=== PATIENT | male | born 1965 | race Two or more races ===

== ENCOUNTER 2019-04-30 04:16 | Inpatient (IN) | payer BC ==
--- NOTE | 2019-04-30 04:18 | PDOC ---
Attending Attestation - Resident Resident Name: FoxPrabhu - ED Attending Attestation I have performed the following: I have examined & evaluated the patient, The case was reviewed & discussed with the resident, I agree w/resident's findings & plan - HPI HPI: 04/30/19 21:52 see resident hpi - Physicial Exam PE: 04/30/19 21:52 agree with resident exam - Critical Care Time Total Critical Care Time: 90 Critical Care Statement: The care of this patient involved high complexity decision making to prevent further life threatening deterioration of the patient 's condition and/or to evaluate & treat vital organ system(s) failure or risk of failure. - Medical Decision Making 04/30/19 21:52 53-year-old male with history of heart failure now with acute onset of shortness of breath requiring BiPAP on arrival X-ray shows pulmonary congestion bilaterally with no focal infiltrate Labs consistent with acute renal failure Case discussed with nephrology for management of hyperkalemia Labs consistent with hypercapnic respiratory failure Case signed out to dayshift pending ICU evaluation and possible need for intubation
[2019-04-30] MEDS ORDERED: NITROGLYCERIN 2% OINTMENT - 1GM PACKET TD ONE ×2 (04:24→04:55)
[2019-04-30] MEDS ORDERED: RAPID SEQUENCE INTUBATION KIT NR ONE (04:27)
[2019-04-30] MEDS ORDERED: NITROGLYCERIN 25MG/D5W 250ML 25 MG/250 ML ML IVPB SCH (05:00)
[2019-04-30 05:14] LABS: ARTERIAL BLD GAS O2 SATURATION 96.9 % (95-98); ARTERIAL BLOOD GAS BASE EXCESS -1.1 meq/l (-2-2); ARTERIAL BLOOD GAS PO2 123 mmHg (80-100)
[2019-04-30 05:15] LABS: ALLENS TEST POSITIVE; CARBOXYHEMOGLOBIN 1.3 % (0-2)
--- NOTE | 2019-04-30 05:15 | PDOC ---
History of Present Illness - General Chief Complaint: Congestive Heart Failure Stated Complaint: DIFFICULTY BREATHING Time Seen by Provider: 04/30/19 04:18 History Source: Patient, EMS, Other Exam Limitations: Clinical Condition - History of Present Illness Initial Comments: HPI: 53 y/o male presenting to [facility] ER via ems in respiratory distress. Started on CPAP by EMS. No medications were given enroute. Pt was obtunded and unable to contribute to HPI. EMS provided discharge paperwork from [facility] dated 22 Mar 2019. For pneumonia. Medical Hx: - Atrial Flutter on Apixaban, Diltiazem, and Amiodarone - CHF (LV dysfunction, unspecified) on Lasix - Diabetes on Januvia and Metformin Review of Systems: Unable to obtain secondary to acute clinical condition Physical Examination: Vital signs and nursing notes reviewed. Constitutional- Obese adult male in acute respiratory distress. Head- Normocephalic. No obvious external signs of trauma. Eyes- PERRL. Sclerae white. Neck- Trachea is midline. Cardiovascular / Chest- Tachycardic rate with regular rhythm. No murmur, rubs, clicks, or gallops. Peripheral pulses- radial pulses full. Significant bilateral pretibial edema. Respiratory- Breathing tachypenic and shallow. Speaking in single word responses. Breath sounds bilaterally. Diffuse rhonci. Gastrointestinal- abdomen is soft, non-tender, non-distended. No overlying skin lesions or obvious signs of trauma. Neuro- Eyes open to verbal stimuli. Unable to assess orientation. Moving all four extremities spontaneously. No facial asymmetry. Skin- Warm, dry, and intact. Psych- Affect- appropriate. Mood- normal. Speech was non-labored, non- pressured. MDM: 53 y/o male presenting with acute respiratory distress. Afebrile. Vitals remarkable for tachycardia without hypotension. Borderline hypoxic on arrival. Physical exam as described above. Pt transitioned from EMS CPAP to BPAP. Mental status improved. Labs reviewed. Noted acute renal failure and hyperkalemia. Case discussed w/ Dr. Kelley. Given Albuterol, Insulin, and D50. Holding calcium and bicarb. Requested Lokelma. Will admit the pt to the ICU for acute respiratory distress, acute renal failure , and hyperkalemia. ABG concerning for acute hypercapnia. 30 Apr 2019 07:13 AM Telephone discussion with resident Dr. Meyer. Verbally appraised of the pts HPI, ED course, and current plan of management. Will admit pt to ICU for attending Dr. Llanos. Noted worsening acidosis. Paroxicially, pts mental status has improved. Pt intubated by Dr. Pride of anesthesia service. Became bradycardic and hypotensive. Noted widened QRS and QTc. Suspect secondary to hyperK. Given insulin. BGL in 300s, so held D50. Started Calcium gluconate. Prabhu Fox M.D., PGY2 Emergency Medicine Resident Past History - Past Medical History Allergies/Adverse Reactions: Allergies Allergy/AdvReac Type Severity Reaction Status Date / Time No Known Allergies Allergy Verified 04/30/19 05:32 Home Medications: Ambulatory Orders Amino Acids/Protein Hydrolys [Prosource No Carb Liquid Pkt] 30 ml PO BID@0800, 1730 packet 06/06/19 Apixaban [Eliquis -] 5 mg PEG BID tablet 06/06/19 Atorvastatin Ca [Lipitor] 40 mg PO HS tablet 06/06/19 Docusate Liquid [Colace Liquid -] 200 mg GT DAILY PRN ud 06/06/19 Ferrous Sulfate [Feosol] 300 mg NGT BID udc 06/06/19 Furosemide Oral Solution [Lasix Oral Solution -] 40 mg NGT DAILY [facility] 06/06/19 Insulin (Levemir) [Levemir Vial] 14 units SQ AM units 06/06/19 Insulin Sliding Scale [Novolog Vial Sliding Scale -] 1 vial SQ ACHS units 06/06 Nystatin Oral Suspension - [Nystatin Oral Susp 583832 Units/5 ML -] 500,000 units PO Q6HPO cup 06/06/19 Pantoprazole Sodium [Protonix -] 40 mg PO DAILY tablet.ec 06/06/19 Tamsulosin HCl [Flomax -] 0.4 mg PO DAILY@0830 cap.er.24h 06/06/19 Thiamine HCl [Vitamin B1 -] 200 mg PO DAILY tablet 06/06/19 Metoprolol Tartrate [Lopressor -] 25 mg GT BID tablet 06/07/19 Diltiazem [Cardizem -] 30 mg PO TID #90 tablet 06/08/19 ED Treatment Course - LABORATORY CBC & Chemistry Diagram: 06/05/19 07:40 06/05/19 07:40 - ADDITIONAL ORDERS Additional order review: Laboratory Results 04/30/19 04/30/19 04:55 04:50 Anticoagulation Therapy No Result Required. O2 Delivery Device No Result Required. Oxygen Flow Rate No Result Required. Vent Mode No Result Required. Vent Rate No Result Required. Mechanical Rate No Result Required. Pressure Support Vent No Result Required. POC Glucometer 297 04/30/19 04:50 POC Glucometer 297 Discharge - Discharge Information Problems reviewed: Yes Clinical Impression/Diagnosis: Acute decompensated heart failure, Acute renal failure, Hyperkalemia Condition: Improved Disposition: [facility]ISON [facility]ILITY - Admission Yes - Follow up/Referral - Patient Discharge Instructions - Post Discharge Activity
[2019-04-30 05:17] LABS: ARTERIAL BLOOD GAS pH 7.13 (7.35-7.45)
[2019-04-30 05:18] LABS: ARTERIAL BLOOD GAS PCO2 95.3 mmHg (35-45)
[2019-04-30 05:36] LABS: BASO % 0.4 % (0-2.0); MEAN PLT VOLUME 8.4 fl (7.5-11.1)
[2019-04-30 05:46] LABS: INR 0.98 (0.83-1.09); PROTHROMBIN TIME (PATIENT) 11.6 SEC (9.7-13.0)
[2019-04-30 05:49] LABS: ACTIVATED PTT 21.6 SECONDS (25.2-36.5)
[2019-04-30 05:53] LABS: URINE APPEARANCE CLEAR; URINE BILIRUBIN NEGATIVE (NEGATIVE); URINE COLOR YELLOW; URINE GLUCOSE (UA) NEGATIVE (NEGATIVE); URINE KETONE NEGATIVE (NEGATIVE); URINE LEUK ESTERASE NEGATIVE (NEGATIVE); URINE NITRITE NEGATIVE (NEGATIVE); URINE PROTEIN TRACE (NEGATIVE); URINE UROBILINOGEN 0.2 mg/dL (0.2-1.0)
[2019-04-30 06:08] LABS: ALBUMIN 3.1 g/dl (3.4-5.0); ALK PHOS 247 U/L (45-117); ANION GAP 4 MMOL/L (8-16); BILIRUBIN,TOTAL 0.4 mg/dL (0.2-1); BLOOD UREA NITROGEN 62.5 mg/dL (7-18); CALCIUM 8.2 mg/dL (8.5-10.1); CHLORIDE 96 mmol/L (98-107); CO2 33 mmol/L (21-32); CREATININE 2.4 mg/dL (0.55-1.3); GLUCOSE,RANDOM 323 mg/dL (74-106); N-TERMINAL BNP 1639.4 pg/ml (5-125); SGOT/AST 31 U/L (15-37); SGPT/ALT 55 U/L (13-61); SODIUM 132 mmol/L (136-145)
[2019-04-30 06:10] LABS: EOS % 0.5 % (0-4.5); LYMPH % 1.7 % (8-40); MCH 24.2 pg (25.7-33.7); MEAN CELL VOLUME 80.6 fl (80-96); MONO % 9.1 % (3.8-10.2); NEUT % 88.3 % (42.8-82.8); PLATELET COUNT 334 K/MM3 (134-434); RBC 4.32 M/mm3 (4.00-5.60); RDW 20.5 % (11.9-15.9); WHITE BLOOD COUNT 10.5 K/mm3 (4.0-10.0)
[2019-04-30] MEDS ORDERED: ALBUTEROL SO4 0.083% IH SOL 2.5 MG/3 ML VIAL.NEB. NEB ONE ×3 (06:14→08:48)
[2019-04-30 06:17] LABS: HEMATOCRIT 34.8 % (35.4-49); HEMOGLOBIN 10.4 GM/dL (11.7-16.9)
[2019-04-30] MEDS ORDERED: INSULIN REGULAR HUMAN 100 UNITS/ML *VIAL IVPUSH ONE ×5 (06:18→23:11)
[2019-04-30] MEDS ORDERED: DEXTROSE 50%-WATER - 25 GM/50 ML VIAL IVPUSH ONE ×2 (06:19→14:05)
[2019-04-30 06:26] LABS: ARTERIAL BLOOD GAS PO2 165 mmHg (80-100)
[2019-04-30] MEDS ORDERED: FUROSEMIDE 40 MG/4 ML INJECTABLE VIAL IVPUSH ONE ×4 (06:26→23:20)
[2019-04-30] MEDS ORDERED: INSULIN REGULAR HUMAN 100 UNITS/ML *VIAL ONE ×2 (06:26→08:59)
[2019-04-30 06:27] LABS: ARTERIAL BLD GAS O2 SATURATION 98.1 % (95-98)
[2019-04-30] MEDS ORDERED: DEXTROSE 50%-WATER - 25 GM/50 ML VIAL ONE ×3 (06:28→16:18)
[2019-04-30] MEDS ORDERED: FUROSEMIDE 40 MG/4 ML INJECTABLE VIAL ONE ×2 (06:30→23:41)
[2019-04-30 06:31] LABS: ALLENS TEST POSITIVE
[2019-04-30 06:35] LABS: ARTERIAL BLOOD GAS PCO2 > 100 mmHg (35-45); CARBOXYHEMOGLOBIN > 50 % (0-2)
[2019-04-30 06:36] LABS: ARTERIAL BLOOD GAS pH 7.09 (7.35-7.45)
[2019-04-30 06:58] LABS: ARTERIAL BLOOD GAS PCO2 > 100 mmHg (35-45); ARTERIAL BLOOD GAS pH 7.09 (7.35-7.45)
[2019-04-30 06:59] LABS: ARTERIAL BLOOD GAS PO2 86.3 mmHg (80-100); CARBOXYHEMOGLOBIN 1.3 % (0-2)
[2019-04-30 07:00] LABS: ALLENS TEST POSITIVE
[2019-04-30] MEDS ORDERED: SODIUM ZIRCONIUM CYCLOSILICATE (LOKELMA) 5 GM PACKET PO ONE ×2 (07:03→08:10)
[2019-04-30] MEDS ORDERED: PHENYLEPHRINE HCL 10 MG/1 ML SINGLE DOSE VIAL ONE ×2 (07:26→09:30)
[2019-04-30 07:27] LABS: POTASSIUM 6.9 mmol/L (3.5-5.1)
--- NOTE | 2019-04-30 07:41 | PDOC ---
*Physical Exam - Vital Signs Last Vital Signs Temp Pulse Resp BP Pulse Ox 96.1 F L 113 H 33 H 165/107 H 86 L 04/30/19 05:38 04/30/19 05:38 04/30/19 05:38 04/30/19 05:38 04/30/19 05:38 - Physical Exam 04/30/19 07: Patient endorsed by Dr. lockhart. Patient is a 53-year-old male with multiple comorbidities, morbidly obese, presented with shortness of breathAnd obtundation. Patient received IV diuretics, placed on BiPAP with no significant improvement. pH remains 7.09 with PCO2 of greater than 100. Patient is noted to be hyperkalemic with 6.9 and elevated creatinine consistent with RYNE. Chest x-ray reveals cardiomegaly and extensive pulmonary edema. On my evaluation, patient is lethargic, arousable to sternal rub only, tachypneic with respiratory rate of 40 with pink frothy fluid noted in the oropharynx and nares bilaterally. Given the patient's clinical condition, persistent acidemia and hypercapnia, patient requires immediate endotracheal intubation. Due to body habitus and potential airway complications, anesthesia consulted and has intubated the patient using a bougie. Will admit to the ICU. Will initiate a propofol drip for sedation. 04/30/19 08:31 ET tube placement confirmed by postintubation x-ray. NG tube placed. Will administer laquelma via NG tube. rll infiltrate noted. will cover with iv ibx for cap. flouroquinolone is not indicated currently. 04/30/19 08:35 Pt noted bradycardic w/ widening IN interval and QRS interval suspect hypercalemia, will admin insulin, calcium glucanate, glucose - IV and albuterol nebs, propyphol stopped, BP low-- will continue with phenylephrine ED Treatment Course - LABORATORY CBC & Chemistry Diagram: 04/30/19 05:05 04/30/19 10:30 - ADDITIONAL ORDERS Additional order review: Laboratory Results 04/30/19 04/30/19 04/30/19 06:45 05:50 05:35 PT with INR INR PTT (Actin FS) Anticoagulation Therapy No Result Required. No Result Required. Puncture Site Right radial Right radial ABG pH 7.09 L* 7.09 L* ABG pCO2 at Pt Temp > 100 H* > 100 H* ABG pO2 at Pt Temp 86.3 165 H ABG HCO3 No Result Required. ABG O2 Sat (Measured) 92.0 L 98.1 H ABG O2 Content 12.9 16.0 ABG Base Excess No Result Required. No Result Required. Adrian Test Positive Positive Carboxyhemoglobin 1.3 > 50 H* Methemoglobin < 1.0 < 1.0 O2 Delivery Device Bipap Bipap Oxygen Flow Rate 60% 80% Vent Mode No Result Required. No Result Required. Vent Rate No Result Required. No Result Required. Mechanical Rate No Result Required. No Result Required. Pressure Support Vent No Result Required. No Result Required. Sodium Potassium Chloride Carbon Dioxide Anion Gap BUN Creatinine Est GFR (CKD-EPI)AfAm Est GFR (CKD-EPI)NonAf POC Glucometer Random Glucose Lactic Acid Calcium Total Bilirubin AST ALT Alkaline Phosphatase Creatine Kinase CK-MB (CK-2) Troponin I B-Natriuretic Peptide Total Protein Albumin Urine Color Yellow Urine Appearance Clear Urine pH 5.0 Ur Specific [place] 1.019 Urine Protein Trace Urine Glucose (UA) Negative Urine Ketones Negative Urine Blood Negative Urine Nitrite Negative Urine Bilirubin Negative Urine Urobilinogen 0.2 Ur Leukocyte Esterase Negative 04/30/19 04/30/19 04/30/19 05:05 05:05 05:05 PT with INR 11.60 INR 0.98 PTT (Actin FS) 21.6 L Anticoagulation Therapy Puncture Site ABG pH ABG pCO2 at Pt Temp ABG pO2 at Pt Temp ABG HCO3 ABG O2 Sat (Measured) ABG O2 Content ABG Base Excess Adrian Test Carboxyhemoglobin Methemoglobin O2 Delivery Device Oxygen Flow Rate Vent Mode Vent Rate Mechanical Rate Pressure Support Vent Sodium 132 L Potassium 6.9 H* Chloride 96 L Carbon Dioxide 33 H Anion Gap 4 L BUN 62.5 H Creatinine 2.4 H Est GFR (CKD-EPI)AfAm 34.89 Est GFR (CKD-EPI)NonAf 30.10 POC Glucometer Random Glucose 323 H Lactic Acid 2.2 H* Calcium 8.2 L Total Bilirubin 0.4 AST 31 ALT 55 Alkaline Phosphatase 247 H Creatine Kinase 127 CK-MB (CK-2) 4.7 H Troponin I < 0.02 B-Natriuretic Peptide 1639.4 H Total Protein 7.0 Albumin 3.1 L Urine Color Urine Appearance Urine pH Ur Specific [place] Urine Protein Urine Glucose (UA) Urine Ketones Urine Blood Urine Nitrite Urine Bilirubin Urine Urobilinogen Ur Leukocyte Esterase 04/30/19 04/30/19 04:55 04:50 PT with INR INR PTT (Actin FS) Anticoagulation Therapy No Result Required. Puncture Site Left radial ABG pH 7.13 L* ABG pCO2 at Pt Temp 95.3 H* ABG pO2 at Pt Temp 123 H ABG HCO3 30.0 H ABG O2 Sat (Measured) 96.9 ABG O2 Content 14.4 ABG Base Excess -1.1 Adrian Test Positive Carboxyhemoglobin 1.3 Methemoglobin 1.0 O2 Delivery Device Bipap Oxygen Flow Rate 60% Vent Mode No Result Required. Vent Rate 16 Mechanical Rate No Result Required. Pressure Support Vent 20/6 Sodium Potassium Chloride Carbon Dioxide Anion Gap BUN Creatinine Est GFR (CKD-EPI)AfAm Est GFR (CKD-EPI)NonAf POC Glucometer 297 Random Glucose Lactic Acid Calcium Total Bilirubin AST ALT Alkaline Phosphatase Creatine Kinase CK-MB (CK-2) Troponin I B-Natriuretic Peptide Total Protein Albumin Urine Color Urine Appearance Urine pH Ur Specific [place] Urine Protein Urine Glucose (UA) Urine Ketones Urine Blood Urine Nitrite Urine Bilirubin Urine Urobilinogen Ur Leukocyte Esterase 04/30/19 04/30/19 05:05 04:50 RBC 4.32 MCV 80.6 MCHC 30.0 L RDW 20.5 H MPV 8.4 Neutrophils % 88.3 H Lymphocytes % 1.7 L Monocytes % 9.1 Eosinophils % 0.5 Basophils % 0.4 POC Glucometer 297 - RADIOLOGY Radiology Studies Ordered: Category Date Time Status CHEST X-RAY PORTABLE* [RAD] Stat Radiology 04/30/19 07:38 Ordered - Medications Given in the ED: ED Medications Discontinued Medications Generic Name Dose Route Start Last Admin Trade Name Freq PRN Reason Stop Dose Admin Albuterol Sulfate 3 amp 04/30/19 06:14 04/30/19 06:34 Ventolin 0.083% Nebulizer Soln - NEB 04/30/19 06:15 3 amp ONCE ONE Administration Dextrose 20 gm 04/30/19 06:19 04/30/19 06:34 D50w (Vial) - IVPUSH 04/30/19 06:20 20 gm NOW ONE Administration Furosemide 40 mg 04/30/19 06:26 04/30/19 06:34 Lasix Injection - IVPUSH 04/30/19 06:27 40 mg ONCE ONE Administration Insulin Human Regular 10 units 04/30/19 06:18 04/30/19 06:34 Novolin R Vial *For Ivpush Or Iv Drip Only* IVPUSH 04/30/19 06:19 10 units ONCE ONE Administration Nitroglycerin 1 inch 04/30/19 04:55 04/30/19 05:05 Nitro-Bid 2% Paste - TD 04/30/19 04:56 1 inch ONCE ONE Administration Discharge - Discharge Information Problems reviewed: Yes Clinical Impression/Diagnosis: Acute decompensated heart failure, Hyperkalemia Acute renal failure Qualifiers: Acute renal failure type: unspecified Qualified Code(s): N17.9 - Acute kidney failure, unspecified Condition: Critical - Follow up/Referral - Patient Discharge Instructions - Post Discharge Activity
[2019-04-30] MEDS ORDERED: PROPOFOL 1,000,000 MCG/100 ML VIAL ONE (07:43)
--- NOTE | 2019-04-30 07:45 | PN ---
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 (short form) - Note 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: Called to emergently intubate a pt in CHF/flash pulmonary edema with SpO2 in 80s. Pt was pre-oxygenated, ambubagged, and given etomidate 6mg and Carla 20mg ( wanted to avoid rocuronium, as pt's airway looked concerning). DL with MAC4 -- > gr2/3 view. Bougie advanced easily and ETT 8.0 placed over bougie. CO2+, BLBS+, pt connected to ventilator and sedation was started by ED physician. SpO2 increased to 100%, VSS.
[2019-04-30] MEDS ORDERED: FENTANYL INJECTION 500 MCG in DEXTROSE 5%-WATER - 90 ML IVPB SCH ×2 (08:00→12:30)
[2019-04-30] MEDS ORDERED: SODIUM CHLORIDE 0.9% 500 ML INFUS.BAG IV ONE (08:10)
[2019-04-30] MEDS ORDERED: PHENYLEPHRINE HCL 10 MG/1 ML SINGLE DOSE VIAL IVPB ONE ×3 (08:30→08:38)
[2019-04-30] MEDS ORDERED: PROPOFOL 1,000,000 MCG/100 ML VIAL IVPB SCH (08:30)
[2019-04-30] MEDS ORDERED: AZITHROMYCIN IVPB 500 MG in DEXTROSE 5%-WATER - 250 ML IVPB ONE (08:34)
[2019-04-30] MEDS ORDERED: CEFTRIAXONE 1,000 MG in DEXTROSE 5%-WATER - 50 ML IVPB ONE (08:34)
--- NOTE | 2019-04-30 08:46 | CONSULT ---
Consultation: REQUESTING PROVIDER: Dr. Houston CONSULT REQUEST: RYNE; hyperkalemia. HISTORY OF PRESENT ILLNESS: 53 y/o male with PMH of aflutter, DM, HTN, diastolic CHF presents to the ED with complaints of shortness of breath and was subsequently intubated and sedated due to worsening hypoxic and hypercapnic respiratory failure. Notable labs: WBC 10.2, K 6.9, Cr 2.4 LA 2.2, BNP 1639 CXR ARDS pattern on 100 %fi02 ABG Ph 7.09 CO2>100- patient given 80 lasix IV ,azithro, cef, medrol, on 2 pressors, (vaso and phenylephrine) given calcium gluconate; d50 for hyperkalemia REVIEW OF SYSTEMS: UNABLE TO OBTAIN INTUBATED/SEDATED CONSTITUTIONAL: Absent: fever, chills, diaphoresis, generalized weakness, malaise, loss of appetite, weight change HEENT: Absent: rhinorrhea, nasal congestion, throat pain, throat swelling, difficulty swallowing, mouth swelling, ear pain, eye pain, visual changes CARDIOVASCULAR: Absent: chest pain, syncope, palpitations, irregular heart rate, lightheadedness , peripheral edema RESPIRATORY: Absent: cough, shortness of breath, dyspnea with exertion, orthopnea, wheezing, stridor, hemoptysis GASTROINTESTINAL: Absent: abdominal pain, abdominal distension, nausea, vomiting, diarrhea, constipation, melena, hematochezia GENITOURINARY: Absent: dysuria, frequency, urgency, hesitancy, hematuria, flank pain, genital pain MUSCULOSKELETAL: Absent: myalgia, arthralgia, joint swelling, back pain, neck pain SKIN: Absent: rash, itching, pallor HEMATOLOGIC/IMMUNOLOGIC: Absent: easy bleeding, easy bruising, lymphadenopathy, frequent infections ENDOCRINE: Absent: unexplained weight gain, unexplained weight loss, heat intolerance, cold intolerance NEUROLOGIC: Absent: headache, focal weakness or paresthesias, dizziness, unsteady gait, seizure, mental status changes, bladder or bowel incontinence PSYCHIATRIC: Absent: anxiety, depression, suicidal or homicidal ideation, hallucinations. PHYSICAL EXAMINATION Vital Signs - 24 hr 04/30/19 04/30/19 04/30/19 04:18 04:20 04:30 Temperature Pulse Rate 116 H Pulse Rate [ 116 H Left Radial] Respiratory 30 H Rate Blood Pressure Blood Pressure 160/111 H [Right Arm] O2 Sat by Pulse 95 95 95 Oximetry (%) 04/30/19 04/30/19 04/30/19 04:35 04:46 05:06 Temperature Pulse Rate Pulse Rate [ 113 H 118 H Left Radial] Respiratory 29 H 36 H Rate Blood Pressure Blood Pressure 141/87 132/91 [Right Arm] O2 Sat by Pulse 95 95 98 Oximetry (%) 04/30/19 04/30/19 04/30/19 05:27 05:38 07:30 Temperature 96.1 F L Pulse Rate 113 H Pulse Rate [ 110 H Left Radial] Respiratory 38 H 33 H 12 Rate Blood Pressure 165/107 H Blood Pressure 102/72 [Right Arm] O2 Sat by Pulse 100 86 L Oximetry (%) GENERAL: intubated; sedated. EYES: PEERLA; EOMI; no scleral icterus. NECK:no JVD; no lymphadenopathy LUNGS: vents sounds appreciated with extensive secretions. HEART: irregularly irregular; no murmurs/rubs/gallops ABDOMEN:obese; soft NT/ND +BS in all 4 quadrants . MUSCULOSKELETAL: Normal range of motion at all joints. No bony deformities or tenderness. No CVA tenderness. EXTREMITIES: cool; 2+ pitting edema B/L NEUROLOGICAL: unable to assess; intubated/sedated PSYCHIATRIC: Cooperative. Good eye contact. Appropriate mood and affect. SKIN: Warm, dry, normal turgor, no rashes or lesions noted. Laboratory Results - last 24 hr 04/30/19 04/30/19 04/30/19 04:50 04:55 05:05 WBC RBC Hgb Hct MCV MCH MCHC RDW Plt Count MPV Absolute Neuts (auto) Neutrophils % Lymphocytes % Monocytes % Eosinophils % Basophils % Nucleated RBC % PT with INR 11.60 INR 0.98 PTT (Actin FS) 21.6 L Anticoagulation Therapy No Result Required. Puncture Site Left radial ABG pH 7.13 L* ABG pCO2 at Pt Temp 95.3 H* ABG pO2 at Pt Temp 123 H ABG HCO3 30.0 H ABG O2 Sat (Measured) 96.9 ABG O2 Content 14.4 ABG Base Excess -1.1 Adrian Test Positive Carboxyhemoglobin 1.3 Methemoglobin 1.0 O2 Delivery Device Bipap Oxygen Flow Rate 60% Vent Mode No Result Required. Vent Rate 16 Mechanical Rate No Result Required. Pressure Support Vent 20/6 Sodium Potassium Chloride Carbon Dioxide Anion Gap BUN Creatinine Est GFR (CKD-EPI)AfAm Est GFR (CKD-EPI)NonAf POC Glucometer 297 Random Glucose Lactic Acid Calcium Total Bilirubin AST ALT Alkaline Phosphatase Creatine Kinase CK-MB (CK-2) Troponin I B-Natriuretic Peptide Total Protein Albumin Urine Color Urine Appearance Urine pH Ur Specific [place] Urine Protein Urine Glucose (UA) Urine Ketones Urine Blood Urine Nitrite Urine Bilirubin Urine Urobilinogen Ur Leukocyte Esterase 04/30/19 04/30/19 04/30/19 05:05 05:05 05:05 WBC 10.5 H RBC 4.32 Hgb 10.4 L Hct 34.8 L MCV 80.6 MCH 24.2 L MCHC 30.0 L RDW 20.5 H Plt Count 334 MPV 8.4 Absolute Neuts (auto) 9.2 H Neutrophils % 88.3 H Lymphocytes % 1.7 L Monocytes % 9.1 Eosinophils % 0.5 Basophils % 0.4 Nucleated RBC % 0 PT with INR INR PTT (Actin FS) Anticoagulation Therapy Puncture Site ABG pH ABG pCO2 at Pt Temp ABG pO2 at Pt Temp ABG HCO3 ABG O2 Sat (Measured) ABG O2 Content ABG Base Excess Adrian Test Carboxyhemoglobin Methemoglobin O2 Delivery Device Oxygen Flow Rate Vent Mode Vent Rate Mechanical Rate Pressure Support Vent Sodium 132 L Potassium 6.9 H* Chloride 96 L Carbon Dioxide 33 H Anion Gap 4 L BUN 62.5 H Creatinine 2.4 H Est GFR (CKD-EPI)AfAm 34.89 Est GFR (CKD-EPI)NonAf 30.10 POC Glucometer Random Glucose 323 H Lactic Acid 2.2 H* Calcium 8.2 L Total Bilirubin 0.4 AST 31 ALT 55 Alkaline Phosphatase 247 H Creatine Kinase 127 CK-MB (CK-2) 4.7 H Troponin I < 0.02 B-Natriuretic Peptide 1639.4 H Total Protein 7.0 Albumin 3.1 L Urine Color Urine Appearance Urine pH Ur Specific [place] Urine Protein Urine Glucose (UA) Urine Ketones Urine Blood Urine Nitrite Urine Bilirubin Urine Urobilinogen Ur Leukocyte Esterase 04/30/19 04/30/19 04/30/19 05:35 05:50 06:45 WBC RBC Hgb Hct MCV MCH MCHC RDW Plt Count MPV Absolute Neuts (auto) Neutrophils % Lymphocytes % Monocytes % Eosinophils % Basophils % Nucleated RBC % PT with INR INR PTT (Actin FS) Anticoagulation Therapy No Result Required. No Result Required. Puncture Site Right radial Right radial ABG pH 7.09 L* 7.09 L* ABG pCO2 at Pt Temp > 100 H* > 100 H* ABG pO2 at Pt Temp 165 H 86.3 ABG HCO3 No Result Required. No Result Required. ABG O2 Sat (Measured) 98.1 H 92.0 L ABG O2 Content 16.0 12.9 ABG Base Excess No Result Required. No Result Required. Adrian Test Positive Positive Carboxyhemoglobin > 50 H* 1.3 Methemoglobin < 1.0 < 1.0 O2 Delivery Device Bipap Bipap Oxygen Flow Rate 80% 60% Vent Mode No Result Required. No Result Required. Vent Rate No Result Required. No Result Required. Mechanical Rate No Result Required. No Result Required. Pressure Support Vent No Result Required. No Result Required. Sodium Potassium Chloride Carbon Dioxide Anion Gap BUN Creatinine Est GFR (CKD-EPI)AfAm Est GFR (CKD-EPI)NonAf POC Glucometer Random Glucose Lactic Acid Calcium Total Bilirubin AST ALT Alkaline Phosphatase Creatine Kinase CK-MB (CK-2) Troponin I B-Natriuretic Peptide Total Protein Albumin Urine Color Yellow Urine Appearance Clear Urine pH 5.0 Ur Specific [place] 1.019 Urine Protein Trace Urine Glucose (UA) Negative Urine Ketones Negative Urine Blood Negative Urine Nitrite Negative Urine Bilirubin Negative Urine Urobilinogen 0.2 Ur Leukocyte Esterase Negative Active Medications Generic Name Dose Route Start Last Admin Trade Name Freq PRN Reason Stop Dose Admin Nitroglycerin/Dextrose 25 mg in 250 mls @ 6 mls/hr 04/30/19 05:00 04/30/19 05 :05 Nitroglycerin 25mg/D5w 250ml IVPB 10 mcg/min TITR ELISSA 6 mls/hr Administration 10 MCG/MIN Propofol 1,000,000 mcg in 100 mls @ 4.082 mls/hr 04/30/19 08:30 Diprivan - IVPB TITR ELISSA Protocol 5 MCG/KG/MIN Azithromycin 500 mg/ Dextrose 250 mls @ 250 mls/hr 04/30/19 08:34 IVPB 04/30/19 09:33 ONCE ONE Ceftriaxone Sodium 1,000 mg/ 50 mls @ 100 mls/hr 04/30/19 08:34 Dextrose IVPB 04/30/19 09:03 ONCE ONE ASSESSMENT/PLAN: 53 y/o male with PMH of aflutter, DM, HTN, diastolic CHF presents to the ED with complaints of shortness of breath and was subsequently intubated and sedated due to worsening hypoxic and hypercapnic respiratory failure with electrolytes abnormalities and elevated Cr #Hypoxic and Hypercapnic respiratory failure #RYNE #Hyperkalemia #CHF exacerbation v. cardiogenic shock repeat K 6.2- will give amp d50, bicarb, 10 units insulin repeat BMP in 4 hours c/w IV Lasix 60 BID-can start gtt if need be and if pressures hold monitor I's and O's repeat ABG monitor electrolytes repeat EKG repeat CXR in AM Dispo: We will continue to follow the patient. Thank you for this consultative opportunity. Visit type - Emergency Visit Emergency Visit: Yes ED Registration Date: 04/30/19 Care time: The patient presented to the Emergency Department on the above date and was hospitalized for further evaluation of their emergent condition. - New Patient This patient is new to me today: Yes Date on this admission: 04/30/19 - Critical Care Critical Care patient: Yes Total Critical Care Time (in minutes): 35 Critical Care Statement: The care of this patient involved high complexity decision making to prevent further life threatening deterioration of the patient 's condition and/or to evaluate & treat vital organ system(s) failure or risk of failure. ATTENDING PHYSICIAN STATEMENT I saw and evaluated the patient. I reviewed the resident's note and discussed the case with the resident. I agree with the resident's findings and plan as documented. SUBJECTIVE: OBJECTIVE: ASSESSMENT AND PLAN:
--- NOTE | 2019-04-30 08:49 | PN ---
Teaching Attending Note Name of Resident: Reginald Meyer ATTENDING PHYSICIAN STATEMENT I saw and evaluated the patient. I reviewed the resident's note and discussed the case with the resident. I agree with the resident's findings and plan as documented. Seen and examined; please see resident note for further historical information. I personally verified all valadez historical information and exam findings. Personally interpreted all imaging and diagnostics and reviewed appropriate consults. I reviewed all labs and vital signs as per resident note and EMR as documented. I agree with the above assessment and plan unless supplemented by myself in the following. Patient is seen and examined in the ICU, he is unstable and becoming hypotensive. Starting peripheral vasopressin. Pending transfer to [facility] for ECMO evaluation. He is unstable, with secretions and ARDS pattern on his chest x-ray requiring 100% FiO2. Central line is being placed by ICU resident. Guarded prognosis. He was supposed to have a catheterization performed at tertiary care center, the details regarding this are shrouded and we will attempt to elucidate them with records pending from their institution being obtained by the admitting resident. 10 item review of systems could not be completed secondary to clinical status VS, labs, imaging reviewed Intubated and sedated on ventillator resting in bed, vent settings per flowsheet ET Tube in place; IV access noted with no apparent surrounding cellulitis RRR s1/2 no mgr Normal muscle tone, moves all 5 extremities with normal apparent strength Neck is supple, trachea midline, no fernanda LN Lungs CTAB with sym expansion NT ND +BS no fernanda organomegaly CN2-12 wnl; no FND but limited given clinical circumstances. NC AT EOMI PERRLA Not agitated, cannot complete full psych assessment No skin breakdown or rashes noted CVC inserted Telemetry reviewed, atrial fib/flutter Right bundle branch block appreciated on EKG of indeterminate origin, AV block noted. Obtaining prior studies from [facility]. Assessment and plan: Patient is a 53-year-old male presenting to the intensive care unit with acute on chronic hypoxic respiratory failure secondary to CHF exacerbation with potential cardiogenic shock. Following their CVP, following their respiratory status is air intubated with likely ARDS, transferring for potential ECMO and further potential cardiovascular procedural work-up. The role of hospital medicine is exceptionally limited in the management of this patient. Transfer has been initiated by intensive care team, we will continue to follow this critically ill patient. Hopeful transfer within coming hours. Full code
--- NOTE | 2019-04-30 08:55 | HP ---
CHIEF COMPLAINT: SOB PCP: Dr. Genaro Davila HISTORY OF PRESENT ILLNESS: Pt. is a 53 y.o. M w/ PMHx. of DM2, HFpEF(last EF: 45-50%), EMMY (non-adherent to CPAP) and atrial flutter presents with sudden onset of shortness of breath. Pt.was intubated and sedated by the time of my arrival. History provided by Chart review, family at bedside and discussion with Dr. Molly Davila ([phone]). Pt. awoke suddenly with shortness of breath and was brought in by EMS to the ER. Per family Pt. was scheduled to have cardiac catherization in July. Pt. was in his usual state of health before this event and per family denies any symptoms including chest pain, fever , chills, or worsening shortness of breath. Discussed with Pt.'s licensed guide Dr. Davila that Pt. was admitted in March to [facility] for CHF exacerbation, was massively volume overloaded, had Echo done which showed EF of 45-50%, Pt. was found to be in A.Flutter, failed cardioversion x2 and was discharged on increased dose of Diltiazem and on Amiodarone. Pt. during that admission had GEETA which failed to show thrombus. Pt. was volume overloaded with significant Pulmonary edema, diuresed until CXR were clear and discharged on Lasix 40mg BID. Dr. Davila emphasized the Pt.'s non-adherence to the medical regimen in taking antidiabetic medications, Lasix and in using CPAP. ER course was notable for: (1) UA/ UCx., BCx. ABG, Neprology and ICU consult, BNP, Duonebs (2)Nitro gtt, Lokelma x 2, Intubation, Insulin 10 units, D50% (3) Lasix 80mg Juliana MCCARTNEY Recent Travel: No PAST MEDICAL HISTORY: As above PAST SURGICAL HISTORY: Denies Social History: Smoking: Quit 25 years ago Alcohol: Quit, Drinks only socially Drugs: Denies Allergies No Known Allergies Allergy (Verified 04/30/19 05:32) HOME MEDICATIONS: Home Medications Medication Instructions Recorded Amiodarone HCl 200 mg PO DAILY 04/30/19 Apixaban [Eliquis] 5 mg PO BID 04/30/19 Diltiazem Cd [Cardizem Cd -] 300 mg PO DAILY 04/30/19 Furosemide 40 mg PO BID 04/30/19 Glipizide 10 mg PO DAILY 04/30/19 Lisinopril 10 mg PO DAILY 04/30/19 Metformin HCl [Glucophage] 1,000 mg PO BID 04/30/19 Sitagliptin Phosphate [Januvia] 100 mg PO DAILY 04/30/19 REVIEW OF SYSTEMS Unable to obtain as Pt. is intubated and sedated. ROS per family as above. PHYSICAL EXAMINATION Vital Signs - 24 hr 04/30/19 04/30/19 04/30/19 04:18 04:20 04:30 Temperature Pulse Rate 116 H Pulse Rate [ 116 H Left Radial] Respiratory 30 H Rate Blood Pressure Blood Pressure 160/111 H [Right Arm] O2 Sat by Pulse 95 95 95 Oximetry (%) 04/30/19 04/30/19 04/30/19 04:35 04:46 05:06 Temperature Pulse Rate Pulse Rate [ 113 H 118 H Left Radial] Respiratory 29 H 36 H Rate Blood Pressure Blood Pressure 141/87 132/91 [Right Arm] O2 Sat by Pulse 95 95 98 Oximetry (%) 04/30/19 04/30/19 04/30/19 05:27 05:38 07:30 Temperature 96.1 F L Pulse Rate 113 H Pulse Rate [ 110 H Left Radial] Respiratory 38 H 33 H 12 Rate Blood Pressure 165/107 H Blood Pressure 102/72 [Right Arm] O2 Sat by Pulse 100 86 L Oximetry (%) GENERAL: Sedated HEAD: Normal with no signs of gross trauma EYES: Pupils equal, round and reactive to light, EARS, NOSE, THROAT: Intubated, macroglossia, Moist mucous membranes. NECK: Enlarged neck LUNGS: Decreased respirations, diffuse crackles and expiratory wheezing. HEART: Irregular rate and rhythm, normal S1 and S2 without murmur ABDOMEN: Soft, obese, protuberant, not distended, dull to percussion MUSCULOSKELETAL: UPPER EXTREMITIES: 2+ radial pulses, warm, well-perfused. No cyanosis. No clubbing. non-pitting edema. LOWER EXTREMITIES: 2+ dorsal pedal, pulses, warm, well-perfused. 2+ edema. NEUROLOGICAL: Sedated PSYCHIATRIC: Sedated SKIN: Warm, dry, Anasarca Laboratory Results - last 24 hr 04/30/19 04/30/19 04/30/19 04:50 04:55 05:05 WBC RBC Hgb Hct MCV MCH MCHC RDW Plt Count MPV Absolute Neuts (auto) Neutrophils % Lymphocytes % Monocytes % Eosinophils % Basophils % Nucleated RBC % PT with INR 11.60 INR 0.98 PTT (Actin FS) 21.6 L Anticoagulation Therapy No Result Required. Puncture Site Left radial ABG pH 7.13 L* ABG pCO2 at Pt Temp 95.3 H* ABG pO2 at Pt Temp 123 H ABG HCO3 30.0 H ABG O2 Sat (Measured) 96.9 ABG O2 Content 14.4 ABG Base Excess -1.1 Adrian Test Positive Carboxyhemoglobin 1.3 Methemoglobin 1.0 O2 Delivery Device Bipap Oxygen Flow Rate 60% Vent Mode No Result Required. Vent Rate 16 Mechanical Rate No Result Required. Pressure Support Vent 20/6 Sodium Potassium Chloride Carbon Dioxide Anion Gap BUN Creatinine Est GFR (CKD-EPI)AfAm Est GFR (CKD-EPI)NonAf POC Glucometer 297 Random Glucose Lactic Acid Calcium Total Bilirubin AST ALT Alkaline Phosphatase Creatine Kinase CK-MB (CK-2) Troponin I B-Natriuretic Peptide Total Protein Albumin Urine Color Urine Appearance Urine pH Ur Specific [place] Urine Protein Urine Glucose (UA) Urine Ketones Urine Blood Urine Nitrite Urine Bilirubin Urine Urobilinogen Ur Leukocyte Esterase 04/30/19 04/30/19 04/30/19 05:05 05:05 05:05 WBC 10.5 H RBC 4.32 Hgb 10.4 L Hct 34.8 L MCV 80.6 MCH 24.2 L MCHC 30.0 L RDW 20.5 H Plt Count 334 MPV 8.4 Absolute Neuts (auto) 9.2 H Neutrophils % 88.3 H Lymphocytes % 1.7 L Monocytes % 9.1 Eosinophils % 0.5 Basophils % 0.4 Nucleated RBC % 0 PT with INR INR PTT (Actin FS) Anticoagulation Therapy Puncture Site ABG pH ABG pCO2 at Pt Temp ABG pO2 at Pt Temp ABG HCO3 ABG O2 Sat (Measured) ABG O2 Content ABG Base Excess Adrian Test Carboxyhemoglobin Methemoglobin O2 Delivery Device Oxygen Flow Rate Vent Mode Vent Rate Mechanical Rate Pressure Support Vent Sodium 132 L Potassium 6.9 H* Chloride 96 L Carbon Dioxide 33 H Anion Gap 4 L BUN 62.5 H Creatinine 2.4 H Est GFR (CKD-EPI)AfAm 34.89 Est GFR (CKD-EPI)NonAf 30.10 POC Glucometer Random Glucose 323 H Lactic Acid 2.2 H* Calcium 8.2 L Total Bilirubin 0.4 AST 31 ALT 55 Alkaline Phosphatase 247 H Creatine Kinase 127 CK-MB (CK-2) 4.7 H Troponin I < 0.02 B-Natriuretic Peptide 1639.4 H Total Protein 7.0 Albumin 3.1 L Urine Color Urine Appearance Urine pH Ur Specific [place] Urine Protein Urine Glucose (UA) Urine Ketones Urine Blood Urine Nitrite Urine Bilirubin Urine Urobilinogen Ur Leukocyte Esterase 04/30/19 04/30/19 04/30/19 05:35 05:50 06:45 WBC RBC Hgb Hct MCV MCH MCHC RDW Plt Count MPV Absolute Neuts (auto) Neutrophils % Lymphocytes % Monocytes % Eosinophils % Basophils % Nucleated RBC % PT with INR INR PTT (Actin FS) Anticoagulation Therapy No Result Required. No Result Required. Puncture Site Right radial Right radial ABG pH 7.09 L* 7.09 L* ABG pCO2 at Pt Temp > 100 H* > 100 H* ABG pO2 at Pt Temp 165 H 86.3 ABG HCO3 No Result Required. No Result Required. ABG O2 Sat (Measured) 98.1 H 92.0 L ABG O2 Content 16.0 12.9 ABG Base Excess No Result Required. No Result Required. Adrian Test Positive Positive Carboxyhemoglobin > 50 H* 1.3 Methemoglobin < 1.0 < 1.0 O2 Delivery Device Bipap Bipap Oxygen Flow Rate 80% 60% Vent Mode No Result Required. No Result Required. Vent Rate No Result Required. No Result Required. Mechanical Rate No Result Required. No Result Required. Pressure Support Vent No Result Required. No Result Required. Sodium Potassium Chloride Carbon Dioxide Anion Gap BUN Creatinine Est GFR (CKD-EPI)AfAm Est GFR (CKD-EPI)NonAf POC Glucometer Random Glucose Lactic Acid Calcium Total Bilirubin AST ALT Alkaline Phosphatase Creatine Kinase CK-MB (CK-2) Troponin I B-Natriuretic Peptide Total Protein Albumin Urine Color Yellow Urine Appearance Clear Urine pH 5.0 Ur Specific [place] 1.019 Urine Protein Trace Urine Glucose (UA) Negative Urine Ketones Negative Urine Blood Negative Urine Nitrite Negative Urine Bilirubin Negative Urine Urobilinogen 0.2 Ur Leukocyte Esterase Negative ASSESSMENT/PLAN: Pt. is a 53 y.o. M w/ PMHx. of DM2, HFpEF(last EF: 45-50%), EMMY (non-adherent to CPAP) and atrial flutter presents with sudden onset of shortness of breath. #Acute Hypoxic and Hypercapneic Respiratory Failure/ EMMY Pt. intubated and Sedated -suggest ARDS protocol for vent settings AB.09, pCo2: >100, pO2: 165 ICU consult appreciated CXR: volume overload, large heart, cannot r/o infiltrate Duonebs RQID Albuterol PRN #HFpEF vs. Cardiogenic shock Given 80mg IV Lasix in ED, will c/w 60mg BID Strict Is & Os, daily weights f/u Echo BNP: 1634 Can start Dobutamine if blood pressure remains tenuous c/w teemetry monitoring Trop -, f/u Rpt. Cardiology Consult (Dr. Encinas) appreciated as Pt.s licensed guide is from [facility], this is to maintain continuity of care. EKG showing A/flutter, QTc: 461, no ST segment changes; f/u Rpt. EKG #Atrial Flutter Hold Diltiazem given tenuous MAP and need to diuresis Start Lopressor 5mg IV Q4H with holding parameters c/w IV Amiodarone Hold Eliquis, start Heparin gtt #RYNE on CKD w/ Hyperkalemia BUN/ Cr.: 62.5/2.[address] Kelley appreciated Likely secondary to volume overload. Pt. likely has CKD given risk factors of DM2(uncontrolled glucose) and Heart Failure Given Lokelma x 2 with Insulin and D50 continue to monitor BMP EKG showing peaked T-waves with Hold Lisinopril #DM2 f/u A1c Hold PO medications BGMs ACHS ISS ACHS #FEN no IVF monitor electrolytes, hyperkalemic to 6.9 given Lokelma x 2, and Insulin NPO #DVT Ppx. Heparin gtt Visit type - Emergency Visit Emergency Visit: Yes ED Registration Date: 04/30/19 Care time: The patient presented to the Emergency Department on the above date and was hospitalized for further evaluation of their emergent condition. - New Patient This patient is new to me today: Yes Date on this admission: 04/30/19 - Critical Care Critical Care patient: Yes Total Critical Care Time (in minutes): 45 Critical Care Statement: The care of this patient involved high complexity decision making to prevent further life threatening deterioration of the patient 's condition and/or to evaluate & treat vital organ system(s) failure or risk of failure. ATTENDING PHYSICIAN STATEMENT I saw and evaluated the patient. I reviewed the resident's note and discussed the case with the resident. I agree with the resident's findings and plan as documented. SUBJECTIVE: OBJECTIVE: ASSESSMENT AND PLAN:
[2019-04-30] MEDS ORDERED: CALCIUM GLUCONATE 10% - 1,000 MG/10 ML VIAL ONE (08:57)
[2019-04-30] MEDS ORDERED: VASOPRESSIN 20 UNITS/ML VIAL IV ONE ×2 (09:25→21:45)
[2019-04-30] MEDS ORDERED: PHENYLEPHRINE HCL 20,000 MCG in SODIUM CHLORIDE 248 ML IVPB SCH (09:30)
[2019-04-30] MEDS: VASOPRESSIN 50 UNITS in SODIUM CHLORIDE 97.5 ML IVPB SCH (09:30)
[2019-04-30] MEDS ORDERED: CALCIUM GLUCONATE 10% - 1,000 MG/10 ML VIAL IVPB ONE (09:38)
[2019-04-30] MEDS ORDERED: HEPARIN NA (PORCINE) 5,000 UNITS/ML 1ML VIAL IVPUSH PRN ×3 (09:43→10:40)
[2019-04-30] MEDS ORDERED: HEPARIN - 25,000 UNIT in SODIUM CHLORIDE 495 ML IV SCH (09:45)
[2019-04-30] MEDS ORDERED: VECURONIUM BROMIDE 10 MG/10 ML VIAL ONE (09:47)
[2019-04-30] MEDS: PROPOFOL 1,000,000 MCG/100 ML VIAL IVPB SCH (09:55)
[2019-04-30] MEDS ORDERED: LORazepam 2 MG/ML SDV VIAL IM ONE (09:56)
[2019-04-30] MEDS ORDERED: LORazepam 2 MG/ML SDV VIAL ONE (09:59)
--- NOTE | 2019-04-30 10:34 | EKG ---
Test Reason : Blood Pressure : / mmHG Vent. Rate : 060 BPM Atrial Rate : 060 BPM P-R Int : 284 ms QRS Dur : 126 ms QT Int : 430 ms P-R-T Axes : 067 028 016 degrees QTc Int : 430 ms TDS Motion artifacts Probably atrial fibrillation vs. atypical atrial flutter with variable AV block RIGHT BUNDLE BRANCH BLOCK SEPTAL INFARCT , AGE UNDETERMINED INFERIOR INFARCT , AGE UNDETERMINED ABNORMAL ECG NO PREVIOUS ECGS AVAILABLE Confirmed by ALONSO RODRIGUEZ MD ([id number]) on 04/30/2019 10:34:10 AM Referred By: Confirmed By:ALONSO RODRIGUEZ MD
--- NOTE | 2019-04-30 10:44 | PROC ---
<Krystal Gordonal - Last Filed: 04/30/19 10:43> Central Line Insertion Indication: CVP Monitoring, Sepsis, Vasopressor Risks and Benefits Explained: No (Emergent, pt in shock) Consent on Chart: No (Emergent, pt in shock) Central Line: Triple Lumen Catheter Anesthesia: 1% Lidocaine Sterile Technique: Yes Ultrasound Guided Assistance: Yes Position: Left Internal Jugular Post Insertion: Yes: Bilateral Breath Sounds, Bilateral Chest Expansion, Chest X-Ray Ordered Sterile Dressing Applied: Yes <Buster Dave MD - Last Filed: 04/30/19 13:55> Procedure Note Procedure: I supervised and was present during the entire procedure. Buster Dave MD
[2019-04-30] MEDS: INSULIN SLIDING SCALE (NOVOLOG) 1 VIAL SQ SCH ×3 (12:00→22:56)
[2019-04-30] MEDS ORDERED: VECURONIUM BROMIDE 50 MG/50 ML VIAL IVPUSH ONE (12:03)
[2019-04-30] MEDS ORDERED: VANCOMYCIN 1 GM in D5W (PRE-DOCKED) 1,000 MG/250 ML IVPB SCH ×2 (12:15→12:45)
[2019-04-30] MEDS: MUPIROCIN 2% TOPICAL OINTMENT FOR DECOLONIZATION NS SCH ×2 (12:22→22:24)
[2019-04-30 12:26] LABS: ANISOCYTOSIS 2+; MACROCYTOSIS 0; OVALOCYTE 1+; PLATELET ESTIMATE NORMAL; TARGET CELLS 1+; TEAR DROP CELLS 1+
[2019-04-30] MEDS ORDERED: SODIUM CHLORIDE 1,000 ML IV SCH (12:30)
[2019-04-30] MEDS ORDERED: PT OWN MED DRAWER 7, Y5N ONE ×2 (12:40→15:01)
[2019-04-30] MEDS: HEPARIN IV SCH (12:50)
[2019-04-30] MEDS: SODIUM CHLORIDE IV SCH (12:50)
[2019-04-30 12:56] LABS: ALLENS TEST POSITIVE
[2019-04-30 12:58] LABS: ARTERIAL BLOOD GAS PCO2 86.8 mmHg (35-45); ARTERIAL BLOOD GAS pH 7.15 (7.35-7.45)
--- NOTE | 2019-04-30 13:05 | EKG ---
Test Reason : Blood Pressure : / mmHG Vent. Rate : 110 BPM Atrial Rate : 110 BPM P-R Int : 000 ms QRS Dur : 114 ms QT Int : 302 ms P-R-T Axes : 000 -19 049 degrees QTc Int : 408 ms ATRIAL FIBRILLATION WITH RAPID VENTRICULAR RESPONSE INCOMPLETE RIGHT BUNDLE BRANCH BLOCK ABNORMAL ECG WHEN COMPARED WITH ECG OF 30-APR-2019 08:53, PREVIOUS ECG HAS UNDETERMINED RHYTHM, NEEDS REVIEW CRITERIA FOR SEPTAL INFARCT ARE NO LONGER PRESENT NON-SPECIFIC CHANGE IN ST SEGMENT IN ANTERIOR LEADS T WAVE INVERSION NO LONGER EVIDENT IN ANTERIOR LEADS Confirmed by ALONSO RODRIGUEZ MD ([id number]) on 04/30/2019 1:05:15 PM Referred By: GEOVANNI SOLISHOYLETON Confirmed By:ALONSO RODRIGUEZ MD
[2019-04-30 13:44] LABS: BILIRUBIN,TOTAL 0.6 mg/dL (0.2-1); BLOOD UREA NITROGEN 64.8 mg/dL (7-18); CALCIUM 8.1 mg/dL (8.5-10.1); CREATININE 2.4 mg/dL (0.55-1.3); TOT PROT 6.7 g/dl (6.4-8.2)
[2019-04-30] MEDS ORDERED: NOREPINEPHRINE BITARTRATE 4,000 MCG in DEXTROSE 5%-WATER - 496 ML IV SCH (13:45)
[2019-04-30 13:47] LABS: POTASSIUM 6.2 mmol/L (3.5-5.1)
[2019-04-30] MEDS: FUROSEMIDE 100 MG/10 ML INJECTABLE VIAL IVPB SCH (14:00)
[2019-04-30] MEDS: PIPERACILLIN/TAZOB 2.25 GM 2.25 GM in DEXTROSE 5%-WATER - 50 ML IVPB SCH ×3 (14:00→19:21)
[2019-04-30] MEDS: methylPREDNISolone NA SUCC 40 MG/1 ML VIAL IVPUSH SCH ×2 (14:00→18:28)
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
--- NOTE | 2019-04-30 14:04 | PN ---
Teaching Attending Note Name of Resident: Ju Lopez ATTENDING PHYSICIAN STATEMENT I saw and evaluated the patient. I reviewed the resident's note and discussed the case with the resident. I agree with the resident's findings and plan as documented. SUBJECTIVE: Pt seen and examined in the ICU. Intubated, sedated on levophed and vasopressin gtts. Vented on volume assist control with 100 FiO2 and PEEP 18. OBJECTIVE: Vital Signs Period Temp Pulse Resp BP Sys/[place] Pulse Ox Last 24 Hr 96.1 F-97.3 F 108-120 12-38 102-165/72-111 86-100 Intake & Output 04/27/19 04/28/19 04/29/19 04/30/19 23:59 23:59 23:59 23:59 Output Total 530 Balance -530 Weight 136.078 kg Gen: intubated, sedated Heart: tachycardic Lung: bilateral rhonchi Abd: soft, nontender Ext: + edema CBC, BMP 04/30/19 05:05 04/30/19 10:30 Active Medications Albuterol/Ipratropium (Duoneb -) 1 amp NEB RQID ELISSA Chlorhexidine Gluconate (Hibiclens For Decolonization -) 1 applic TP HS ELISSA Furosemide (Lasix Injection -) 60 mg IVPB BID@0600,1400 ELISSA Furosemide (Lasix Injection -) 80 mg IVPUSH ONCE ONE Stop: 04/30/19 14:05 Heparin Sodium (Porcine) (Heparin -) 1,000 unit IVPUSH PRN PRN PRN Reason: Heparin Heparin Sodium (Porcine) (Heparin -) 5,000 unit IVPUSH PRN PRN PRN Reason: Heparin Nitroglycerin/Dextrose (Nitroglycerin 25mg/D5w 250ml) 25 mg in 250 mls @ 6 mls/ hr IVPB TITR ELISSA Last Admin: 04/30/19 05:05 Dose: 10 mcg/min, 6 mls/hr Vasopressin 50 units/ Sodium (Chloride) 100 mls @ 4 mls/hr IVPB ASDIR ELISSA; Protocol Last Admin: 04/30/19 09:30 Dose: 6 units/hr, 12 mls/hr Propofol (Diprivan -) 1,000,000 mcg in 100 mls @ 4.082 mls/hr IVPB TITR ELISSA; Protocol Last Admin: 04/30/19 09:55 Dose: 5 mcg/kg/min, 4.082 mls/hr Heparin Sodium (Porcine) 50, (000 unit/ Sodium Chloride) 500 mls @ 10 mls/hr IV TITR ELISSA; Protocol Last Admin: 04/30/19 12:50 Dose: 1,000 unit/hr, 10 mls/hr Vecuronium [place] 50 mg/ (Dextrose) 250 mls @ 40.82 mls/hr IVPB TITR ELISSA Azithromycin (Zithromax 500mg Ivpb (Pre-Docked)) 500 mg in 250 mls @ 250 mls/ hr IVPB DAILY ELISSA Piperacillin Sod/Tazobactam (Sod 2.25 gm/ Dextrose) 50 mls @ 100 mls/hr IVPB Q8H-IV ELISSA; Protocol Fentanyl 500 mcg/ Dextrose 100 mls @ 5 mls/hr IVPB TITR ELISSA; Protocol Sodium Chloride (Normal Saline -) 1,000 mls @ 75 mls/hr IV ASDIR ELISSA Piperacillin Sod/Tazobactam (Sod 2.25 gm/ Dextrose) 50 mls @ 100 mls/hr IVPB Q8H-IV ELISSA; Protocol Stop: 05/01/19 12:44 Norepinephrine Bitartrate 8, 000 mcg/ Dextrose/Sodium Chloride 500 mls @ 18.75 mls/hr IV TITR ELISSA; Protocol Insulin Aspart (Novolog Vial Sliding Scale -) 1 vial SQ ACHS ELISSA; Protocol Methylprednisolone Sodium Succinate (Solu-Medrol -) 60 mg IVPUSH Q8H-IV ELISSA Metoprolol Tartrate (Lopressor Injection -) 5 mg IVPUSH Q4H PRN PRN Reason: TACHYCARDIA Mupirocin (Bactroban Ointment (For Decolonization) -) 1 applic NS BID ELISSA Stop: 05/05/19 09:59 Last Admin: 04/30/19 12:22 Dose: Not Given Vancomycin HCl (Vancomycin (Pre-Docked)) 1,000 mg IVPB DAILY [facility]; Protocol ASSESSMENT AND PLAN: Acute Hypoxic and Hypercapneic Respiratory Failure Pneumonia Septic Shock ARDS Lactic Acidosis Hyperkalemia Acute Kidney Injury Volume Overload Atrial Flutter with RVR HTN DM Anemia - IV antibiotics - f/u cultures - send flu swab - tirate pressors to maintain MAP >65 - low tidal volume ventilation <6cc/kg/IBW - keep Pplat <30 - allow permissive hypercapnea - will paralyze for vent synchrony - if unable to oxygenate, will need to transfer for ECMO support - received lasix - monitor urine output, creatinine - monitor lytes - on empiric medrol - inhaled bronchodilators - rate control - continue anticoagulation - continue volume assist control - not a candidate for weaning at this time - DVT/GI prophylaxis - continue ICU monitoring - prognosis guarded critical care time spent in reviewing chart, evaluating patient and formulating plan 75 min
[2019-04-30] MEDS ORDERED: SODIUM BICARBONATE 8.4% 50 MEQ/50 ML VIAL IVPUSH ONE (14:05)
[2019-04-30] MEDS ORDERED: SODIUM POLYSTYRENE SULFONATE 15 GM/60 ML BOTTLE NGT ONE (14:15)
[2019-04-30] MEDS: VECURONIUM BROMIDE 50 MG in DEXTROSE 5%-WATER - 250 ML IVPB SCH (14:15)
[2019-04-30] MEDS ORDERED: PNEUMOC 13-VAL CONJ-DIP CRM/PF 0.5 ML DISP.SYRIN IM ONE (14:42)
[2019-04-30] MEDS ORDERED: DEXTROSE 5%-WATER - 50 ML IVPB ONE ×3 (14:50→19:25)
[2019-04-30] MEDS ORDERED: PIPERACILLIN/TAZOBACTAM 2.25 GM VIAL IVPB ONE ×2 (14:50→18:16)
--- NOTE | 2019-04-30 14:56 | EKG ---
Test Reason : Blood Pressure : / mmHG Vent. Rate : 112 BPM Atrial Rate : 224 BPM P-R Int : 000 ms QRS Dur : 096 ms QT Int : 338 ms P-R-T Axes : 000 074 035 degrees QTc Int : 461 ms ATRIAL FLUTTER WITH VARIABLE A-V BLOCK WITH PREMATURE VENTRICULAR OR ABERRANTLY CONDUCTED COMPLEXES INCOMPLETE RIGHT BUNDLE BRANCH BLOCK ABNORMAL ECG NO PREVIOUS ECGS AVAILABLE Confirmed by JENNIFER ABDI, ALONSO ([id number]) on 04/30/2019 2:55:44 PM Referred By: Confirmed By:ALONSO RODRIGUEZ MD
[2019-04-30] MEDS: DEXTROSE 5% IV SCH (15:02)
[2019-04-30] MEDS: NORMAL SALINE IV SCH (15:02)
[2019-04-30] MEDS: NOREPINEPHRINE BITARTRATE IV SCH (15:02)
[2019-04-30] MEDS: ALBUTEROL SO4 2.5/IPRATROPIUM 0.5 INH SOL 3 ML VIAL.NEB. NEB SCH ×2 (15:50→20:35)
[2019-04-30 16:25] LABS: ALLENS TEST POSITIVE; ARTERIAL BLD GAS O2 SATURATION 96.6 % (95-98); ARTERIAL BLOOD GAS BASE EXCESS 1.1 meq/l (-2-2); ARTERIAL BLOOD GAS PO2 101 mmHg (80-100)
[2019-04-30 16:28] LABS: ARTERIAL BLOOD GAS PCO2 84.4 mmHg (35-45); ARTERIAL BLOOD GAS pH 7.19 (7.35-7.45)
[2019-04-30] MEDS: AZITHROMYCIN IVPB 500 MG/250 ML BAG IVPB SCH (16:28)
--- NOTE | 2019-04-30 16:41 | CONSULT ---
Consultation: REQUESTING PROVIDER: Prabhu Fox CONSULT REQUEST: We have been asked to medically evaluate this patient for AMS and respiratory failure. HISTORY OF PRESENT ILLNESS: 53 y.o. M w/ PMHx. of DM2, HFpEF(last EF: 45-50%), EMMY (non-adherent to CPAP) and atrial flutter presents to ED obtunded . Pt.was intubated and sedated as pt was arousable only through painful stimulation and severe acidosis on ABG with secretion coming out of mouth and nose. History provided by Chart review, family at bedside and per primary team. At midnight, patients said that the patient couldnt breathe, felt very weak, and couldnt stand up, at which time they called 911. He was brought in by EMS to the ER. Per family, Pt. was scheduled to have cardiac catherization in July 2019. Pt was in his usual state of health before this event and per family denies any symptoms including chest pain, fever, chills, or worsening shortness of breath. 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 At the time, he was also found to be in A.Flutter, failed cardioversion x2 and was discharged on increased dose of Diltiazem and on Amiodarone. During [facility] admission, he had GEETA which failed to show thrombus. He was volume overloaded with significant Pulmonary edema, diuresed until CXR were clear and discharged on Lasix 40mg BID. Dr. Davila emphasized the Pt.'s non- adherence to the medical regimen in taking antidiabetic medications, Lasix and in using CPAP. No sick contacts, no fever, no URI sxs, did not receive flu shot. REVIEW OF SYSTEMS: unobtainable as pt was intubated PHYSICAL EXAMINATION Vital Signs - 24 hr 04/30/19 04/30/19 04/30/19 04:18 04:20 04:30 Temperature Pulse Rate 116 H Pulse Rate [ Apical] Pulse Rate [ 116 H Left Radial] Respiratory 30 H Rate Blood Pressure Blood Pressure 160/111 H [Right Arm] Blood Pressure [Right Calf] O2 Sat by Pulse 95 95 95 Oximetry (%) 04/30/19 04/30/19 04/30/19 04:35 04:46 05:06 Temperature Pulse Rate Pulse Rate [ Apical] Pulse Rate [ 113 H 118 H Left Radial] Respiratory 29 H 36 H Rate Blood Pressure Blood Pressure 141/87 132/91 [Right Arm] Blood Pressure [Right Calf] O2 Sat by Pulse 95 95 98 Oximetry (%) 04/30/19 04/30/19 04/30/19 05:27 05:38 07:30 Temperature 96.1 F L Pulse Rate 113 H Pulse Rate [ Apical] Pulse Rate [ 110 H Left Radial] Respiratory 38 H 33 H 12 Rate Blood Pressure 165/107 H Blood Pressure 102/72 [Right Arm] Blood Pressure [Right Calf] O2 Sat by Pulse 100 86 L Oximetry (%) 04/30/19 04/30/19 04/30/19 07:40 07:44 07:45 Temperature Pulse Rate Pulse Rate [ 110 H 98 H Apical] Pulse Rate [ Left Radial] Respiratory 34 H 34 H 12 Rate Blood Pressure Blood Pressure [Right Arm] Blood Pressure 148/63 163/90 [Right Calf] O2 Sat by Pulse 96 Oximetry (%) 04/30/19 04/30/19 04/30/19 09:35 11:17 11:30 Temperature 97.3 F L Pulse Rate 108 H 120 H Pulse Rate [ Apical] Pulse Rate [ Left Radial] Respiratory 26 H 20 26 H Rate Blood Pressure 67/36 L 109/83 Blood Pressure [Right Arm] Blood Pressure [Right Calf] O2 Sat by Pulse 90 L Oximetry (%) 04/30/19 04/30/19 12:28 14:15 Temperature 98 F Pulse Rate 108 H 109 H Pulse Rate [ Apical] Pulse Rate [ Left Radial] Respiratory 26 H 99 H Rate Blood Pressure 103/81 97/69 Blood Pressure [Right Arm] Blood Pressure [Right Calf] O2 Sat by Pulse Oximetry (%) GENERAL: intubated HEAD: Normal with no signs of trauma. EARS, NOSE, THROAT: nares with white/yellow secretions, oropharynx serous/mucous secretions. NECK: Normal range of motion, supple without lymphadenopathy, JVD, or masses. LUNGS: Breath sounds poor air entry, wheezing on expiration, decreased breath sounds at the bases, rales scattered, use of accessory muscles. HEART:tachycardic normal S1 and S2 without murmur, rub or gallop. ABDOMEN: Soft, nontender, distended and obese, normoactive bowel sounds, no guarding, no rebound, no masses. No hepatomegaly or splenomegaly. UPPER EXTREMITIES: 2+ pulses, warm, well-perfused. No cyanosis. No clubbing. Cap refill <2 seconds. No peripheral edema. LOWER EXTREMITIES: 2+ pulses, warm, well-perfused. No calf tenderness. No peripheral edema. PSYCHIATRIC: Cooperative. Good eye contact. Appropriate mood and affect. SKIN: Warm, dry,lesion on middle finger on right hand Laboratory Results - last 24 hr 04/30/19 04/30/19 04/30/19 04:50 04:55 05:05 WBC RBC Hgb Hct MCV MCH MCHC RDW Plt Count MPV Absolute Neuts (auto) Neutrophils % Lymphocytes % Monocytes % Eosinophils % Basophils % Nucleated RBC % Hypochromia Platelet Estimate Platelet Comment Polychromasia Poikilocytosis Basophilic Stippling Anisocytosis Microcytosis Macrocytosis Spherocytes Target Cells Tear Drop Cells Ovalocytes Stomatocytes PT with INR 11.60 INR 0.98 PTT (Actin FS) 21.6 L Anticoagulation Therapy No Result Required. Puncture Site Left radial ABG pH 7.13 L* ABG pCO2 at Pt Temp 95.3 H* ABG pO2 at Pt Temp 123 H ABG HCO3 30.0 H ABG O2 Sat (Measured) 96.9 ABG O2 Content 14.4 ABG Base Excess -1.1 Adrian Test Positive Carboxyhemoglobin 1.3 Methemoglobin 1.0 O2 Delivery Device Bipap Oxygen Flow Rate 60% Vent Mode No Result Required. Vent Rate 16 Mechanical Rate No Result Required. PEEP Pressure Support Vent 20/6 Sodium Potassium Chloride Carbon Dioxide Anion Gap BUN Creatinine Est GFR (CKD-EPI)AfAm Est GFR (CKD-EPI)NonAf POC Glucometer 297 Random Glucose Lactic Acid Calcium Total Bilirubin AST ALT Alkaline Phosphatase Creatine Kinase CK-MB (CK-2) Troponin I B-Natriuretic Peptide Total Protein Albumin Urine Color Urine Appearance Urine pH Ur Specific [place] Urine Protein Urine Glucose (UA) Urine Ketones Urine Blood Urine Nitrite Urine Bilirubin Urine Urobilinogen Ur Leukocyte Esterase 04/30/19 04/30/19 04/30/19 05:05 05:05 05:05 WBC 10.5 H RBC 4.32 Hgb 10.4 L Hct 34.8 L MCV 80.6 MCH 24.2 L MCHC 30.0 L RDW 20.5 H Plt Count 334 MPV 8.4 Absolute Neuts (auto) 9.2 H Neutrophils % 88.3 H Lymphocytes % 1.7 L Monocytes % 9.1 Eosinophils % 0.5 Basophils % 0.4 Nucleated RBC % 0 Hypochromia 0 Platelet Estimate Normal Platelet Comment Present Polychromasia 1+ Poikilocytosis 1+ Basophilic Stippling 1+ Anisocytosis 2+ Microcytosis 1+ Macrocytosis 0 Spherocytes 1+ Target Cells 1+ Tear Drop Cells 1+ Ovalocytes 1+ Stomatocytes 1+ PT with INR INR PTT (Actin FS) Anticoagulation Therapy Puncture Site ABG pH ABG pCO2 at Pt Temp ABG pO2 at Pt Temp ABG HCO3 ABG O2 Sat (Measured) ABG O2 Content ABG Base Excess Adrian Test Carboxyhemoglobin Methemoglobin O2 Delivery Device Oxygen Flow Rate Vent Mode Vent Rate Mechanical Rate PEEP Pressure Support Vent Sodium 132 L Potassium 6.9 H* Chloride 96 L Carbon Dioxide 33 H Anion Gap 4 L BUN 62.5 H Creatinine 2.4 H Est GFR (CKD-EPI)AfAm 34.89 Est GFR (CKD-EPI)NonAf 30.10 POC Glucometer Random Glucose 323 H Lactic Acid 2.2 H* Calcium 8.2 L Total Bilirubin 0.4 AST 31 ALT 55 Alkaline Phosphatase 247 H Creatine Kinase 127 CK-MB (CK-2) 4.7 H Troponin I < 0.02 B-Natriuretic Peptide 1639.4 H Total Protein 7.0 Albumin 3.1 L Urine Color Urine Appearance Urine pH Ur Specific [place] Urine Protein Urine Glucose (UA) Urine Ketones Urine Blood Urine Nitrite Urine Bilirubin Urine Urobilinogen Ur Leukocyte Esterase 04/30/19 04/30/19 04/30/19 05:35 05:50 06:45 WBC RBC Hgb Hct MCV MCH MCHC RDW Plt Count MPV Absolute Neuts (auto) Neutrophils % Lymphocytes % Monocytes % Eosinophils % Basophils % Nucleated RBC % Hypochromia Platelet Estimate Platelet Comment Polychromasia Poikilocytosis Basophilic Stippling Anisocytosis Microcytosis Macrocytosis Spherocytes Target Cells Tear Drop Cells Ovalocytes Stomatocytes PT with INR INR PTT (Actin FS) Anticoagulation Therapy No Result Required. No Result Required. Puncture Site Right radial Right radial ABG pH 7.09 L* 7.09 L* ABG pCO2 at Pt Temp > 100 H* > 100 H* ABG pO2 at Pt Temp 165 H 86.3 ABG HCO3 No Result Required. No Result Required. ABG O2 Sat (Measured) 98.1 H 92.0 L ABG O2 Content 16.0 12.9 ABG Base Excess No Result Required. No Result Required. Adrian Test Positive Positive Carboxyhemoglobin > 50 H* 1.3 Methemoglobin < 1.0 < 1.0 O2 Delivery Device Bipap Bipap Oxygen Flow Rate 80% 60% Vent Mode No Result Required. No Result Required. Vent Rate No Result Required. No Result Required. Mechanical Rate No Result Required. No Result Required. PEEP Pressure Support Vent No Result Required. No Result Required. Sodium Potassium Chloride Carbon Dioxide Anion Gap BUN Creatinine Est GFR (CKD-EPI)AfAm Est GFR (CKD-EPI)NonAf POC Glucometer Random Glucose Lactic Acid Calcium Total Bilirubin AST ALT Alkaline Phosphatase Creatine Kinase CK-MB (CK-2) Troponin I B-Natriuretic Peptide Total Protein Albumin Urine Color Yellow Urine Appearance Clear Urine pH 5.0 Ur Specific [place] 1.019 Urine Protein Trace Urine Glucose (UA) Negative Urine Ketones Negative Urine Blood Negative Urine Nitrite Negative Urine Bilirubin Negative Urine Urobilinogen 0.2 Ur Leukocyte Esterase Negative 04/30/19 04/30/19 04/30/19 08:57 10:30 12:16 WBC RBC Hgb Hct MCV MCH MCHC RDW Plt Count MPV Absolute Neuts (auto) Neutrophils % Lymphocytes % Monocytes % Eosinophils % Basophils % Nucleated RBC % Hypochromia Platelet Estimate Platelet Comment Polychromasia Poikilocytosis Basophilic Stippling Anisocytosis Microcytosis Macrocytosis Spherocytes Target Cells Tear Drop Cells Ovalocytes Stomatocytes PT with INR INR PTT (Actin FS) Anticoagulation Therapy No Result Required. Puncture Site Right radial ABG pH 7.15 L* ABG pCO2 at Pt Temp 86.8 H* ABG pO2 at Pt Temp 76.0 L ABG HCO3 29.2 H ABG O2 Sat (Measured) 92.0 L ABG O2 Content 13.4 ABG Base Excess -1.0 Adrian Test Positive Carboxyhemoglobin Methemoglobin O2 Delivery Device Vent Oxygen Flow Rate 100% Vent Mode A/c Vent Rate 26 Mechanical Rate Yes PEEP 18.0 Pressure Support Vent 325 Sodium 134 L Potassium 6.2 H* Chloride 99 Carbon Dioxide 27 Anion Gap 8 BUN 64.8 H Creatinine 2.4 H Est GFR (CKD-EPI)AfAm 34.89 Est GFR (CKD-EPI)NonAf 30.10 POC Glucometer 356 Random Glucose 291 H Lactic Acid Calcium 8.1 L Total Bilirubin 0.6 AST 32 ALT 52 Alkaline Phosphatase 225 H Creatine Kinase CK-MB (CK-2) Troponin I B-Natriuretic Peptide Total Protein 6.7 Albumin 3.0 L Urine Color Urine Appearance Urine pH Ur Specific [place] Urine Protein Urine Glucose (UA) Urine Ketones Urine Blood Urine Nitrite Urine Bilirubin Urine Urobilinogen Ur Leukocyte Esterase 04/30/19 04/30/19 04/30/19 12:26 12:45 15:57 WBC RBC Hgb Hct MCV MCH MCHC RDW Plt Count MPV Absolute Neuts (auto) Neutrophils % Lymphocytes % Monocytes % Eosinophils % Basophils % Nucleated RBC % Hypochromia Platelet Estimate Platelet Comment Polychromasia Poikilocytosis Basophilic Stippling Anisocytosis Microcytosis Macrocytosis Spherocytes Target Cells Tear Drop Cells Ovalocytes Stomatocytes PT with INR INR PTT (Actin FS) Anticoagulation Therapy No Result Required. Puncture Site Right radial ABG pH 7.19 L* ABG pCO2 at Pt Temp 84.4 H* ABG pO2 at Pt Temp 101 H ABG HCO3 30.7 H ABG O2 Sat (Measured) 96.6 ABG O2 Content 13.7 ABG Base Excess 1.1 Adrian Test Positive Carboxyhemoglobin Methemoglobin O2 Delivery Device Molder Bench Oxygen Flow Rate 100 Vent Mode A/c Vent Rate 32 Mechanical Rate 325 PEEP 18.0 Pressure Support Vent No Result Required. Sodium Potassium Chloride Carbon Dioxide Anion Gap BUN Creatinine Est GFR (CKD-EPI)AfAm Est GFR (CKD-EPI)NonAf POC Glucometer 251 Random Glucose Lactic Acid 1.2 Calcium Total Bilirubin AST ALT Alkaline Phosphatase Creatine Kinase CK-MB (CK-2) Troponin I B-Natriuretic Peptide Total Protein Albumin Urine Color Urine Appearance Urine pH Ur Specific [place] Urine Protein Urine Glucose (UA) Urine Ketones Urine Blood Urine Nitrite Urine Bilirubin Urine Urobilinogen Ur Leukocyte Esterase Active Medications Generic Name Dose Route Start Last Admin Trade Name Freq PRN Reason Stop Dose Admin Albuterol/Ipratropium 1 amp 04/30/19 16:00 Duoneb - NEB RQID ELISSA Chlorhexidine Gluconate 1 applic 04/30/19 22:00 Hibiclens For Decolonization - TP HS ELISSA Furosemide 60 mg 04/30/19 14:00 04/30/19 14:00 Lasix Injection - IVPB 60 mg BID@0600,1400 ELISSA Administration Heparin Sodium (Porcine) 1,000 unit 04/30/19 10:40 Heparin - IVPUSH PRN PRN Heparin Heparin Sodium (Porcine) 5,000 unit 04/30/19 10:40 Heparin - IVPUSH PRN PRN Heparin Nitroglycerin/Dextrose 25 mg in 250 mls @ 6 mls/hr 04/30/19 05:00 04/30/19 05:05 Nitroglycerin 25mg/D5w 250ml IVPB 10 mcg/min TITR ELISSA 6 mls/hr Administration 10 MCG/MIN Vasopressin 50 units/ Sodium 100 mls @ 4 mls/hr 04/30/19 09:30 04/30/19 09:30 Chloride IVPB 6 units/hr ASDIR ELISSA 12 mls/hr Administration Protocol 2 UNITS/HR Propofol 1,000,000 mcg in 100 mls @ 4.082 mls/hr 04/30/19 10:15 04/30/19 09:55 Diprivan - IVPB 5 mcg/kg/min TITR ELISSA 4.082 mls/hr Administration Protocol 5 MCG/KG/MIN Heparin Sodium (Porcine) 50, 500 mls @ 10 mls/hr 04/30/19 10:45 04/30/19 12:50 000 unit/ Sodium Chloride IV 1,000 unit/hr TITR ELISSA 10 mls/hr Administration Protocol 1,000 UNIT/HR Vecuronium [place] 50 mg/ 250 mls @ 40.82 mls/hr 04/30/19 12:15 04/30/19 14:15 Dextrose IVPB 1 mcg/kg/min TITR ELISSA 40.82 mls/hr Administration 1 MCG/KG/MIN Azithromycin 500 mg in 250 mls @ 250 mls/hr 04/30/19 12:30 04/30/19 16:28 Zithromax 500mg Ivpb (Pre-Docked) IVPB 250 mls/hr DAILY ELISSA Administration Piperacillin Sod/Tazobactam 50 mls @ 100 mls/hr 04/30/19 12:15 Sod 2.25 gm/ Dextrose IVPB Q8H-IV ELISSA Protocol Fentanyl 500 mcg/ Dextrose 100 mls @ 5 mls/hr 01/22/20 12:30 IVPB TITR ELISSA Protocol 25 MCG/HR Piperacillin Sod/Tazobactam 50 mls @ 100 mls/hr 04/30/19 12:45 04/30/19 14:00 Sod 2.25 gm/ Dextrose IVPB 05/01/19 12:44 100 mls/hr Q8H-IV ELISSA Administration Protocol Norepinephrine Bitartrate 8, 500 mls @ 18.75 mls/hr 04/30/19 14:00 04/30/19 15:02 000 mcg/ Dextrose/Sodium IV 4 mcg/min Chloride TITR ELISSA 15 mls/hr Administration Protocol 5 MCG/MIN Insulin Aspart 1 vial 04/30/19 11:00 04/30/19 12:00 Novolog Vial Sliding Scale - SQ 6 units ACHS ELISSA Administration Protocol Methylprednisolone Sodium Succinate 60 mg 04/30/19 12:30 04/30/19 14:00 Solu-Medrol - IVPUSH 60 mg Q8H-IV ELISSA Administration Metoprolol Tartrate 5 mg 04/30/19 08:57 Lopressor Injection - IVPUSH Q4H PRN TACHYCARDIA Mupirocin 1 applic 04/30/19 10:00 04/30/19 12:22 Bactroban Ointment (For Decolonization) - NS 05/05/19 09:59 Not Given BID ELISSA Vancomycin HCl 1,000 mg 04/30/19 12:15 Vancomycin (Pre-Docked) IVPB DAILY ELISSA Protocol ASSESSMENT/PLAN: Pt. is a 53 y.o. M w/ PMHx. of DM2, HFpEF(last EF: 45-50%), EMMY (non-adherent to CPAP) and atrial flutter presents with sudden onset of shortness of breath. Neuro: -Obtunded on presentation -intubated and sedated with propofol -no sedation holidays for now CV: -initially hypotensive in the 60s with map in the 40s then started on vasopressin -phenylephrine added then switched to levophed once central line place to maintain map >65 (04/30/19) -current bp in the 110-120s. Hr continues to be tachy -Hx of Aflutter -Hold Diltiazem given tenuous MAP and need to diuresis -Started Lopressor 5mg IV Q4H with holding parameters -c/w IV Amiodarone -Hold Eliquis, start Heparin gtt -BNP: 1634 -CVP monitoring showing 21. indicated fluid overload -Hx CHFpEF, DM, EMMY (non adherent to CPAP) -Given 80mg IV Lasix in ED, will c/w 60mg BID -Strict Is & Os, daily weights -f/u Echo -Cardio Dr Cruz on board, recs appreciated -EKG showing A/flutter, QTc: 461, no ST segment changes -f/u Rpt. EKG with Afib with RVR. managed as above - heparin drip for a flutter holding NOAC Pulm: -Acute Hypoxic and Hypercapneic Respiratory Failure -hx of EMMY with non compliance to CPAP at home -was initially on BIPAP on arrival then transitioned to intubation due to poor respiratory status and ABG with severe acidosis (Vent:VCV/AC, 80/325/18/32) -AB.09, pCo2: >100, pO2: 165 prior to intubation. -low tidal volume ventilation <6cc/kg/IBW -keep Pplat <30 -allow permissive hypercapnea -sats were in 80s despite sedation and vent settings. -vecuronium bolus and maintenance to paralyse and provide full vent control and assess for improvement of sats -repeat ABG prior to vecuronium : pH 7.15, pCO2 86.8, pO2 76. ABG s/p 30-1hr of vecuronium: pH 7.19, pCO2 84.4, PO2 101 -ARDS protocol for vent settings. tritrating down FIO2 requirement based on sats. -CXR: volume overload, large heart, cannot r/o infiltrate -Bronchodilators :duonebs RQID, Albuterol PRN -solumedrol 60mg Q8h IV -CXR in the AM ID: -Temp 96.1F, WBC 10.5, white/yellow secretions on presentions, CXR without clear exclusion of infiltrate -LA 2.1 -> 1.2 -started on vanc, zosyn, azithromycin -f/u urine, blood culture, and sputum culture -ID consult placed Renal: -BUN/ Cr.: 62.5/2.4. k: 6.9 ->6.2 -no clear Hx of CKD -Given Lokelma x 2 with Insulin and D50 -Nephrology Consult to Dr. Samarneh appreciated -EKG showing peaked T-waves -Hold Lisinopril -monitor GI: -NG tube -LFTs normal except for elevated ALP -monitor ENDO: -BG :323 on presentation ->291 -Hx DM -f/u A1c -BGMs ACHS -ISS ACHS Heme/Onc : -H/H 10.4/34.8 -anemia work up FEN : -no IVF -monitor electrolytes -NPO Ppx: -Heparin gtt - protonix 40 daily LTD: central line left: ortiz: 04/30/19 A-line: 05/01/19 Dispo: We will continue to follow the patient. Thank you for this consultative opportunity. Visit type - Emergency Visit Emergency Visit: Yes ED Registration Date: 04/30/19 Care time: The patient presented to the Emergency Department on the above date and was hospitalized for further evaluation of their emergent condition. - New Patient This patient is new to me today: No - Critical Care Critical Care patient: Yes Total Critical Care Time (in minutes): 35 Critical Care Statement: The care of this patient involved high complexity decision making to prevent further life threatening deterioration of the patient's condition and/or to evaluate & treat vital organ system(s) failure or risk of failure. ATTENDING PHYSICIAN STATEMENT I saw and evaluated the patient. I reviewed the resident's note and discussed the case with the resident. I agree with the resident's findings and plan as documented. SUBJECTIVE: OBJECTIVE: ASSESSMENT AND PLAN:
[2019-04-30 18:23] LABS: ALBUMIN 2.8 g/dl (3.4-5.0); BILIRUBIN,TOTAL 0.6 mg/dL (0.2-1); BLOOD UREA NITROGEN 59.5 mg/dL (7-18); CALCIUM 8.1 mg/dL (8.5-10.1); CREATININE 2.2 mg/dL (0.55-1.3); POTASSIUM 5.8 mmol/L (3.5-5.1); TOT PROT 6.4 g/dl (6.4-8.2)
[2019-04-30] MEDS ORDERED: PIPERACILLIN/TAZOB 3.375 GM 3.375 GM in DEXTROSE 5%-WATER - 50 ML IVPB SCH (19:00)
--- NOTE | 2019-04-30 19:10 | PN ---
Teaching Attending Note Name of Resident: Isis Conn (Nephrology) ATTENDING PHYSICIAN STATEMENT I saw and evaluated the patient. I reviewed the resident's note and discussed the case with the resident. I agree with the resident's findings and plan as documented. Renal Pt is a 53 year old male with pmhx of dm, chf, sarcoidosis, osteo, sleep apnea, and a-flutter who presented with worsening shortness of breath. He was found to be volume overloaded. I was called to evaluate him for RYNE and hyperkalemia. He was intubated in the ER. Pt has a history of non compliance with meds. He did respond with lasix as far as urine output. He was sedated and unable to give history. Discussed with family and reviewed medical records. pmhx dm chf sleep apnea obesity sarcoid family hx non contrib social hx unable to obtain ros pet sedated Current Medications Generic Name Dose Route Start Last Admin Trade Name Freq PRN Reason Stop Dose Admin Albuterol/Ipratropium 1 amp 04/30/19 16:00 04/30/19 15:50 Duoneb - NEB 1 amp RQID ELISSA Administration Chlorhexidine Gluconate 1 applic 04/30/19 22:00 Hibiclens For Decolonization - TP HS ELISSA Furosemide 60 mg 04/30/19 14:00 04/30/19 14:00 Lasix Injection - IVPB 60 mg BID@0600,1400 ELISSA Administration Heparin Sodium (Porcine) 1,000 unit 04/30/19 10:40 Heparin - IVPUSH PRN PRN Heparin Heparin Sodium (Porcine) 5,000 unit 04/30/19 10:40 Heparin - IVPUSH PRN PRN Heparin Vasopressin 50 units/ Sodium 100 mls @ 4 mls/hr 04/30/19 09:30 04/30/19 09:30 Chloride IVPB 6 units/hr ASDIR ELISSA 12 mls/hr Administration Protocol 2 UNITS/HR Propofol 1,000,000 mcg in 100 mls @ 4.082 mls/hr 04/30/19 10:15 04/30/19 09: 55 Diprivan - IVPB 5 mcg/kg/min TITR ELISSA 4.082 mls/hr Administration Protocol 5 MCG/KG/MIN Heparin Sodium (Porcine) 50, 500 mls @ 10 mls/hr 04/30/19 10:45 04/30/19 12: 50 000 unit/ Sodium Chloride IV 1,000 unit/hr TITR ELISSA 10 mls/hr Administration Protocol 1,000 UNIT/HR Vecuronium [place] 50 mg/ 250 mls @ 40.82 mls/hr 04/30/19 12:15 04/30/19 14: 15 Dextrose IVPB 1 mcg/kg/min TITR ELISSA 40.82 mls/hr Administration 1 MCG/KG/MIN Azithromycin 500 mg in 250 mls @ 250 mls/hr 04/30/19 12:30 04/30/19 16:28 Zithromax 500mg Ivpb (Pre-Docked) IVPB 250 mls/hr DAILY ELISSA Administration Norepinephrine Bitartrate 8, 500 mls @ 18.75 mls/hr 04/30/19 14:00 04/30/19 15:02 000 mcg/ Dextrose/Sodium IV 4 mcg/min Chloride TITR ELISSA 15 mls/hr Administration Protocol 5 MCG/MIN Piperacillin Sod/Tazobactam 50 mls @ 100 mls/hr 04/30/19 19:00 Sod 3.375 gm/ Dextrose IVPB Q8H-IV ELISSA Protocol Piperacillin Sod/Tazobactam 50 mls @ 100 mls/hr 04/30/19 19:15 Sod 3.375 gm/ Dextrose IVPB 05/01/19 11:44 Q8H [facility] Insulin Aspart 1 vial 04/30/19 11:00 04/30/19 18:28 Novolog Vial Sliding Scale - SQ 4 units ACHS ELISSA Administration Protocol Insulin Human Regular 10 units 04/30/19 19:05 Novolin R Vial *For Ivpush Or Iv Drip Only* IVPUSH 04/30/19 19:06 ONCE ONE Methylprednisolone Sodium Succinate 60 mg 04/30/19 12:30 04/30/19 18:28 Solu-Medrol - IVPUSH 60 mg Q8H-IV ELISSA Administration Metoprolol Tartrate 5 mg 04/30/19 08:57 Lopressor Injection - IVPUSH Q4H PRN TACHYCARDIA Mupirocin 1 applic 04/30/19 10:00 04/30/19 12:22 Bactroban Ointment (For Decolonization) - NS 05/05/19 09:59 Not Given BID [facility] Pantoprazole Sodium 40 mg 05/01/19 10:00 Protonix Iv IVPUSH DAILY [facility] Vancomycin HCl 1,000 mg 04/30/19 12:15 Vancomycin (Pre-Docked) IVPB DAILY [facility] Protocol Laboratory Tests 04/30/19 04/30/19 04/30/19 05:05 05:35 10:30 Potassium 6.9 H* 6.2 H* Creatinine 2.4 H Urine Protein Trace Urine Blood Negative cardio s1s2 irreg pulm bilateral vent soiunds GI soft, obese ext plus 3 edema neuro sedated skin venous stasis changes Impression 1. RYNE 2. hyperkalemia 3. resp failure requiring intubation 4. resp acidosis 5. dm 6. hx htn 7. sleep apnea 8. obesity 9. hx non compliance 10. chf 11. sarcoid Plan - cont with lasix - pt making urine - potassium improving, follow repeat - vent support - discussed with ER and ICU team - avoid nsaids - pressors to a map of 65 - cardio eval - check echo - renal ultrasond reviewed
--- NOTE | 2019-04-30 19:11 | PN ---
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 (short form) - Note 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: Laboratory Tests 04/30/19 17:30 Sodium 134 L Potassium 5.8 H BUN 59.5 H Creatinine 2.2 H - potassium improving - renal function starting to improve - cont to monitor potassium and marketing representative - cont lasix
[2019-04-30 19:15] LABS: ARTERIAL BLD GAS O2 SATURATION 83.9 % (95-98); ARTERIAL BLOOD GAS PO2 52.7 mmHg (80-100); ARTERIAL BLOOD GAS pH 7.26 (7.35-7.45)
[2019-04-30 19:18] LABS: ARTERIAL BLOOD GAS PCO2 75.6 mmHg (35-45)
[2019-04-30] MEDS ORDERED: PIPERACILLIN/TAZOBACTAM 3.375 GM VIAL IVPB ONE (19:25)
[2019-04-30 19:28] LABS: CREATININE 2.2 mg/dL (0.55-1.3)
[2019-04-30 19:30] LABS: POTASSIUM 6.5 mmol/L (3.5-5.1)
[2019-04-30] MEDS: PIPERACILLIN/TAZOB 3.375 GM 3.375 GM in DEXTROSE 5%-WATER - 50 ML IVPB SCH (19:39)
[2019-04-30] MEDS: HEPARIN NA (PORCINE) 5,000 UNITS/ML 1ML VIAL IVPUSH PRN (20:05)
[2019-04-30] MEDS ORDERED: VANCOMYCIN 1 GM in D5W (PRE-DOCKED) 1,000 MG/250 ML IVPB ONE (21:01)
[2019-04-30] MEDS: CHLORHEXIDINE GLUCONATE 4% CLEANSER FOR DECOLONIZATION TP SCH (22:24)
[2019-04-30 22:40] LABS: ARTERIAL BLD GAS O2 SATURATION 85.8 % (95-98); ARTERIAL BLOOD GAS PO2 64.8 mmHg (80-100)
[2019-04-30 22:41] LABS: ALLENS TEST POSITIVE
[2019-04-30 22:43] LABS: ARTERIAL BLOOD GAS PCO2 > 100 mmHg (35-45); ARTERIAL BLOOD GAS pH 7.09 (7.35-7.45)
[2019-04-30 22:45] LABS: CALCIUM 8.2 mg/dL (8.5-10.1); CREATININE 2.2 mg/dL (0.55-1.3)
[2019-04-30 22:46] LABS: POTASSIUM 6.1 mmol/L (3.5-5.1)
[2019-04-30] MEDS ORDERED: SODIUM BICARBONATE 8.4% 50 MEQ/50 ML DISP.SYRIN IVPUSH ONE (22:59)
[2019-04-30] MEDS ORDERED: SODIUM BICARBONATE 8.4% 50 MEQ/50 ML VIAL ONE (23:00)
--- NOTE | 2019-04-30 23:02 | PN ---
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 (short form) - Note 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: Pt noted to have remained at 95% when fio2 was decreased to 80%. After care following shift change however, he desated to upper 80s and was initially increased to 90% fio2. D/W Dr Daev then increased fio2 to 100%. Plateau pressure stayed about 34, so I reduced the Tv to 4ml/kg. ABG afterwards was worse, so I let Dr Dave know and began the process for transfer to [facility]. Had several discussions with Silvana SLATER at [facility] with adjustments made to the vent settings. Spoke to the ICU attending at [facility], Jo Ann Ochoa who recommended conversation with the ECMO. They needed copies of the CXR, a form of ECHO done and an A-line prior to pt transfer. They also provided contact information from their records for the pt from [facility] as we had no information in our system; pt's phone number: [phone] Pt's - Kiesha-[phone] Spoke with pt's daughter, Karen Madrigal in Kiswahili who was in agreement that pt be transferred to [facility] as that was their initial intent. She explained in Wallisian to the mother and while I was about to get oral witness over the phone by Austin the nurse, the call was interrrupted. When I called back, it went straight to voice mail. Pt received further K treatment with insulin and lasix 120total also received 8.4% bicarbonate. Also got ED resident Mg to do a bedside ECHO amnd put in the A- line After A-line was placed, last abg showed improvement with calculated PaO2/Fio2 ratio- 150 Per Silvana, pt would have qualified for ECMO if PaO2/Fio2 ratio was less than ?85 and prone positioning if <100 She recommended pt staying back at [facility] and continuing diuresis
--- NOTE | 2019-05-01 00:41 | PROC ---
Procedure Note Procedure: Arterial line placed in R radial artery for repeat ABGs and close BP monitoring. Procedure was ultrasound-guided and catheter was seen to be inside the vessel. Blood flow and a-line waveform were appropriately pulsatile.
[2019-05-01] MEDS ORDERED: PT OWN MED DRAWER 7, Y5N ONE ×2 (00:49→23:45)
[2019-05-01] MEDS: VECURONIUM BROMIDE 50 MG in DEXTROSE 5%-WATER - 250 ML IVPB SCH ×2 (01:00→12:57)
[2019-05-01] MEDS: VASOPRESSIN 50 UNITS in SODIUM CHLORIDE 97.5 ML IVPB SCH ×2 (01:07→10:10)
[2019-05-01] MEDS: methylPREDNISolone NA SUCC 40 MG/1 ML VIAL IVPUSH SCH ×3 (01:09→17:09)
[2019-05-01 01:24] LABS: ARTERIAL BLOOD GAS BASE EXCESS 3.1 meq/l (-2-2); ARTERIAL BLOOD GAS PO2 152 mmHg (80-100); ARTERIAL BLOOD GAS pH 7.24 (7.35-7.45)
[2019-05-01 01:27] LABS: ARTERIAL BLOOD GAS PCO2 76.7 mmHg (35-45)
[2019-05-01] MEDS: PIPERACILLIN/TAZOB 3.375 GM 3.375 GM in DEXTROSE 5%-WATER - 50 ML IVPB SCH ×2 (02:29→17:08)
[2019-05-01 02:36] LABS: BLOOD UREA NITROGEN 60.7 mg/dL (7-18); CALCIUM 7.9 mg/dL (8.5-10.1); CREATININE 2.2 mg/dL (0.55-1.3); POTASSIUM 5.9 mmol/L (3.5-5.1)
[2019-05-01] MEDS ORDERED: SODIUM POLYSTYRENE SULFONATE 15 GM/60 ML BOTTLE RC ONE (02:41)
[2019-05-01] MEDS ORDERED: DEXTROSE 5%-WATER - 50 ML IVPB ONE ×4 (03:24→23:46)
[2019-05-01] MEDS ORDERED: PIPERACILLIN/TAZOBACTAM 3.375 GM VIAL IVPB ONE ×4 (03:24→23:45)
[2019-05-01] MEDS: FUROSEMIDE 100 MG/10 ML INJECTABLE VIAL IVPB SCH (05:13)
[2019-05-01] MEDS: PROPOFOL 1,000,000 MCG/100 ML VIAL IVPB SCH ×3 (06:00→15:12)
[2019-05-01] MEDS ORDERED: INSULIN REGULAR HUMAN 100 UNITS/ML *VIAL IVPUSH ONE ×2 (06:03→09:45)
[2019-05-01 07:15] LABS: INR 1.07 (0.83-1.09); PROTHROMBIN TIME (PATIENT) 12.6 SEC (9.7-13.0)
[2019-05-01 07:18] LABS: ACTIVATED PTT 51.1 SECONDS (25.2-36.5)
[2019-05-01 07:50] LABS: BASO % 0.2 % (0-2.0); LYMPH % 1.7 % (8-40); MCH 23.9 pg (25.7-33.7); MCHC 29.9 g/dl (32.0-35.9); MEAN PLT VOLUME 8.5 fl (7.5-11.1); NEUT % 97.1 % (42.8-82.8); PLATELET COUNT 300 K/MM3 (134-434); RBC 4.18 M/mm3 (4.00-5.60); RDW 19.8 % (11.9-15.9); WHITE BLOOD COUNT 7.4 K/mm3 (4.0-10.0)
[2019-05-01 07:54] LABS: HEMATOCRIT 33.5 % (35.4-49)
[2019-05-01 07:55] LABS: MAGNESIUM 1.9 mg/dL (1.8-2.4); PHOSPHOROUS 4.6 mg/dL (2.5-4.9)
--- NOTE | 2019-05-01 08:01 | PN ---
Teaching Attending Note Name of Resident: Giuseppe Rm ATTENDING PHYSICIAN STATEMENT I saw and evaluated the patient. I reviewed the resident's note and discussed the case with the resident. I agree with the resident's findings and plan as documented. Seen and examined; please see resident note for further historical information. I personally verified all valadez historical information and exam findings. Personally interpreted all imaging and diagnostics and reviewed appropriate consults. I reviewed all labs and vital signs as per resident note and EMR as documented. I agree with the above assessment and plan unless supplemented by myself in the following. Overnight events noted, pending transfer, patient remains critically ill. Could not obtain review of systems is intubated and sedated on ventilator VS, labs, imaging reviewed Intubated and sedated on ventillator resting in bed, vent settings per flowsheet ET Tube in place; IV access noted with no apparent surrounding cellulitis RRR s1/2 no mgr Normal muscle tone, moves all 5 extremities with normal apparent strength Neck is supple, trachea midline, no fernanda LN Lungs CTAB with sym expansion NT ND +BS no fernanda organomegaly CN2-12 wnl; no FND but limited given clinical circumstances. NC AT EOMI PERRLA Not agitated, cannot complete full psych assessment No skin breakdown or rashes noted Imaging and telemetry noted ABG reveals a PaO2 of 152 with hypercarbic respiratory failure with metabolic compensation. ASSESSMENT AND PLAN: Patient remains in the ICU intubated and sedated. He is critically ill. We are considering transfer options. Role of hospital medicine is exceptionally limited in the management of this critically ill patient. Arterial line inserted, family has been updated. Patient is on Lasix per renal with hyperkalemia and severe acute kidney injury. They are pending repeat electrolytes this morning. We plan to continue to diurese the patient as per cardiology/renal service and monitoring ABGs. We will defer to pulmonary medicine for the management of the vent with ARDS protocol being initiated. We are holding the lisinopril, continuing the patient on the IV Lopressor and amiodarone, we have him on a heparin drip instead of his Eliquis due to the fact that he cannot take oral with high amount of secretions coming out of the NG tube yesterday. We can reconsider switching back to oral. Hold the diltiazem secondary to potentiate eating a negative inotropic effect with respect to the contractility. Problems include: Acute on chronic hypercapnic respiratory failure Septic shock secondary to pneumonia ARDS Heart failure with diastolic and systolic components with EF done in recent months of 45 to 50%, baseline NYHA unknown. Severe obstructive sleep apnea with noncompliance to CPAP Sarcoidosis Osteomyelitis of the right foot Paroxysmal atrial flutter status post DCCV 03/21/2019, failed twice and on amiodarone and diltiazem. Coronary artery disease status post catheterization Noncompliance to medical therapy in total
[2019-05-01] MEDS: INSULIN SLIDING SCALE (NOVOLOG) 1 VIAL SQ SCH ×4 (08:16→23:29)
[2019-05-01 08:36] LABS: ARTERIAL BLD GAS O2 SATURATION 95.9 % (95-98); ARTERIAL BLOOD GAS BASE EXCESS 5.2 meq/l (-2-2); ARTERIAL BLOOD GAS PCO2 66.3 mmHg (35-45); ARTERIAL BLOOD GAS PO2 85.1 mmHg (80-100); ARTERIAL BLOOD GAS pH 7.31 (7.35-7.45)
[2019-05-01 08:55] LABS: ALBUMIN 2.6 g/dl (3.4-5.0); BILIRUBIN,TOTAL 0.6 mg/dL (0.2-1); BLOOD UREA NITROGEN 62.3 mg/dL (7-18); CREATININE 2.2 mg/dL (0.55-1.3); TOT PROT 6.2 g/dl (6.4-8.2)
[2019-05-01 08:56] LABS: POTASSIUM 6.3 mmol/L (3.5-5.1)
[2019-05-01] MEDS: ALBUTEROL SO4 2.5/IPRATROPIUM 0.5 INH SOL 3 ML VIAL.NEB. NEB SCH ×4 (09:06→20:49)
[2019-05-01] MEDS ORDERED: FUROSEMIDE INJECTION 100 MG in SODIUM CHLORIDE 90 ML IVPB SCH (09:15)
[2019-05-01] MEDS ORDERED: DEXTROSE 50%-WATER - 25 GM/50 ML VIAL IVPUSH ONE (09:45)
[2019-05-01] MEDS ORDERED: SODIUM POLYSTYRENE SULFONATE 15 GM/60 ML BOTTLE PO ONE (10:00)
[2019-05-01] MEDS: MUPIROCIN 2% TOPICAL OINTMENT FOR DECOLONIZATION NS SCH ×2 (10:00→21:57)
[2019-05-01] MEDS ORDERED: VANCOMYCIN 1 GRAM (PRE-DOCKED) 1,000 MG/250 ML BAG IVPB ONE (10:00)
[2019-05-01] MEDS ORDERED: SODIUM BICARBONATE 8.4% 50 MEQ/50 ML VIAL IVPUSH ONE (10:00)
[2019-05-01] MEDS ORDERED: DEXTROSE 50%-WATER - 25 GM/50 ML VIAL ONE (10:04)
[2019-05-01] MEDS: PANTOPRAZOLE SODIUM 40 MG VIAL IVPUSH SCH (10:13)
[2019-05-01] MEDS: AZITHROMYCIN IVPB 500 MG/250 ML BAG IVPB SCH (10:20)
--- NOTE | 2019-05-01 10:33 | PN ---
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, Physician History of Present Illness: Remains sedated on ventilator with decreasing FIO2 and pressor requirements, awaiting transfer to [facility], remains on Vasopressin gtt, rapid afib, undergoing diuresis. - Current Medication List Current Medications: Active Medications Albuterol/Ipratropium (Duoneb -) 1 amp NEB RQID ELISSA Last Admin: 05/01/19 09:30 Dose: 1 amp Chlorhexidine Gluconate (Hibiclens For Decolonization -) 1 applic TP HS ELISSA Last Admin: 04/30/19 22:24 Dose: 1 applic Furosemide (Lasix Injection -) 60 mg IVPB BID@0600,1400 ELISSA Last Admin: 05/01/19 05:13 Dose: 60 mg Heparin Sodium (Porcine) (Heparin -) 1,000 unit IVPUSH PRN PRN PRN Reason: Heparin Last Admin: 04/30/19 20:05 Dose: 1,000 unit Heparin Sodium (Porcine) (Heparin -) 5,000 unit IVPUSH PRN PRN PRN Reason: Heparin Vasopressin 50 units/ Sodium (Chloride) 100 mls @ 4 mls/hr IVPB ASDIR ELISSA; Protocol Last Admin: 05/01/19 10:10 Dose: 2 units/hr, 4 mls/hr Propofol (Diprivan -) 1,000,000 mcg in 100 mls @ 4.082 mls/hr IVPB TITR ELISSA; Protocol Last Titration: 05/01/19 10:12 Dose: 20 mcg/kg/min, 16.329 mls/hr Heparin Sodium (Porcine) 50, (000 unit/ Sodium Chloride) 500 mls @ 10 mls/hr IV TITR ELISSA; Protocol Last Titration: 04/30/19 20:03 Dose: 1,100 unit/hr, 11 mls/hr Vecuronium [place] 50 mg/ (Dextrose) 250 mls @ 40.82 mls/hr IVPB TITR ELISSA Last Admin: 05/01/19 01:00 Dose: 1 mcg/kg/min, 40.82 mls/hr Azithromycin (Zithromax 500mg Ivpb (Pre-Docked)) 500 mg in 250 mls @ 250 mls/ hr IVPB DAILY ELISSA Last Admin: 05/01/19 10:20 Dose: 250 mls/hr Norepinephrine Bitartrate 8, 000 mcg/ Dextrose/Sodium Chloride 500 mls @ 18.75 mls/hr IV TITR ELISSA; Protocol Last Titration: 04/30/19 19:35 Dose: 0 mcg/min, 0 mls/hr Piperacillin Sod/Tazobactam (Sod 3.375 gm/ Dextrose) 50 mls @ 100 mls/hr IVPB Q8H-IV [facility]; Protocol Piperacillin Sod/Tazobactam (Sod 3.375 gm/ Dextrose) 50 mls @ 100 mls/hr IVPB Q8H [facility] Stop: 05/01/19 11:44 Last Admin: 05/01/19 02:29 Dose: 100 mls/hr Vancomycin HCl (Vancomycin (Pre-Docked)) 1,000 mg in 250 mls @ 166.667 mls/hr IVPB ONCE ONE; Protocol Stop: 05/01/19 11:29 Last Admin: 05/01/19 10:17 Dose: 166.667 mls/hr Furosemide 100 mg/ Sodium (Chloride) 100 mls @ 10 mls/hr IVPB TITR [facility]; Protocol Insulin Aspart (Novolog Vial Sliding Scale -) 1 vial SQ ACHS [facility]; Protocol Last Admin: 05/01/19 08:16 Dose: 4 units Methylprednisolone Sodium Succinate (Solu-Medrol -) 60 mg IVPUSH Q8H-IV [facility] Last Admin: 05/01/19 10:15 Dose: 60 mg Metoprolol Tartrate (Lopressor Injection -) 5 mg IVPUSH Q4H PRN PRN Reason: TACHYCARDIA Mupirocin (Bactroban Ointment (For Decolonization) -) 1 applic NS BID [facility] Stop: 05/05/19 09:59 Last Admin: 04/30/19 22:24 Dose: Not Given Pantoprazole Sodium (Protonix Iv) 40 mg IVPUSH DAILY [facility] Last Admin: 05/01/19 10:13 Dose: 40 mg - Objective Vital Signs: Vital Signs Temperature 97.8 F 05/01/19 10:09 Pulse Rate 135 H 05/01/19 10:10 Respiratory Rate 26 H 05/01/19 10:09 Blood Pressure 120/79 05/01/19 10:10 O2 Sat by Pulse Oximetry (%) 96 05/01/19 05:30 Constitutional: Yes: No Distress Cardiovascular: Yes: Tachycardia, Pulse Irregular Respiratory: Yes: Intubated, Mechanically Ventilated, Rhonchi Gastrointestinal: Yes: Soft, Hypoactive Bowel Sounds Genitourinary: Yes: Andrews Present Edema: No Labs: CBC, BMP 05/01/19 05:25 05/01/19 05:25 INR, PTT INR 1.07 (0.83-1.09) 05/01/19 05:25 - ....Imaging Chest X-ray: Report Reviewed (Worsening pulmonary edema) EKG: Report Reviewed (Tele: Rapid afib) Problem List - Problems (1) Pneumonia Code(s): J18.9 - PNEUMONIA, UNSPECIFIED ORGANISM Qualifiers: Pneumonia type: due to unspecified organism (2) Septic shock Code(s): A41.9 - SEPSIS, UNSPECIFIED ORGANISM; R65.21 - SEVERE SEPSIS WITH SEPTIC SHOCK (3) Acute hypercapnic respiratory failure due to obstructive sleep apnea Code(s): J96.02 - ACUTE RESPIRATORY FAILURE WITH HYPERCAPNIA; G47.33 - OBSTRUCTIVE SLEEP APNEA (ADULT) (PEDIATRIC) (4) Acute decompensated heart failure Code(s): I50.9 - HEART FAILURE, UNSPECIFIED (5) Acute renal failure Code(s): N17.9 - ACUTE KIDNEY FAILURE, UNSPECIFIED Qualifiers: Acute renal failure type: unspecified Qualified Code(s): N17.9 - Acute kidney failure, unspecified (6) Hyperkalemia Code(s): E87.5 - HYPERKALEMIA (7) Atrial fibrillation and flutter Code(s): I48.91 - UNSPECIFIED ATRIAL FIBRILLATION; I48.92 - UNSPECIFIED ATRIAL FLUTTER (8) Sarcoidosis of other sites Code(s): D86.89 - SARCOIDOSIS OF OTHER SITES (9) Type 2 diabetes mellitus Code(s): E11.9 - TYPE 2 DIABETES MELLITUS WITHOUT COMPLICATIONS Qualifiers: Diabetes mellitus fci insulin use: without fci use Diabetes mellitus complication detail: with chronic kidney disease Chronic kidney disease stage: stage 2 (mild) Assessment/Plan 03/14/2019 Normal LV size and fxn, no thrombus ADEEL, mild-mod dilated and HK RV, tr MR, mild-mod TR, tr MT, trace pericardial effusion 1. Acute hypoxic and hypercapneic respiratory failure on mechanical ventilation 2. Pneumonia, septic shock, ARDS 3. Sarcoidosis confirmed by skin biopsy 2. OSAS nonadherent to cpap 3. Paroxysmal Aflutter/Afib with RVR 4. Acute on chronic diastolic heart failure 5. Acute on CKD with hyperkalemia 6. Type 2 DM 7. Anemia P:1. Empiric abx f/u C&S, flu swab, IV steroids, BD 2. Wean vasopressin to maintain MAP >65, f/u repeat echo results 3. Vent management per ABG, ARDS protocol and paralyzed 4. Resume rate-control with IV Lopressor and amiodarone, heparin gtt with eliquis held for now 5. Aggressive IV diuresis on Lasix gtt with monitor diuretic response, renal fxn and electrolytes 6. Resume lisinopril 10 qd once renal function and hyperkalemia stabilizes 7. Thank you for consultative opportunity, awaiting transfer to [facility], he f/u with Dr. Genaro Davila (cardiology at [place])
[2019-05-01] MEDS ORDERED: SODIUM BICARBONATE 8.4% 50 MEQ/50 ML VIAL ONE (10:44)
[2019-05-01] MEDS: HEPARIN IV SCH (10:47)
[2019-05-01] MEDS: SODIUM CHLORIDE IV SCH (10:47)
[2019-05-01] MEDS: METOPROLOL TARTRATE 5 MG/5 ML VIAL IVPUSH PRN ×2 (10:50→21:58)
[2019-05-01] MEDS: FUROSEMIDE INJECTION 100 MG in SODIUM CHLORIDE 90 ML IVPB SCH (11:00)
--- NOTE | 2019-05-01 11:06 | PN ---
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 (short form) - Note 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: ID CONSULT DICTATED ACUTE RESPIRATORY FAILURE ? ARDS CHF PNEUMONIA STAPH BACTEREMIA RENAL FAILURE CONTINUE VENTILATORY/ HEMODYNAMIC SUPPPORT AWAIT BC ECHO EMPIRIC VANCOMYCIN/ ZOSYN/ ZITHROMAX CRITICAL CARE TIME 35MIN
[2019-05-01] MEDS ORDERED: METOPROLOL TARTRATE 5 MG/5 ML VIAL IVPUSH PRN (12:01)
--- NOTE | 2019-05-01 12:02 | CONS ---
INFECTIOUS DISEASE CONSULTATION DATE OF CONSULTATION: DATE OF DICTATION: 05/01/2019 HISTORY: The patient is a 53-year-old male who is evaluated for pneumonia and sepsis. History was obtained from the chart as he is presently intubated in the intensive care unit. According to the notes, he had recently been hospitalized at [facility] in March 2019, for congestive heart failure, atrial flutter. He is now admitted to [facility] after developing acute onset of shortness of breath. He was admitted to the hospital on April 30, 2019, after developing shortness of breath upon awakening. He was taken to the emergency room where he was in acute respiratory distress and was placed on BiPAP. He subsequently developed respiratory failure and was intubated. Chest x-ray shows increased markings bilaterally consistent with CHF, possible superimposed pneumonia. His course was further complicated by hypotension, bradycardia, acute kidney injury. Patient was noted to have pink, frothy sputum suctioned. He is presently in the intensive care unit on the ventilator. He was on 100% FiO2, which has been reduced to 80%. His PEEP has been reduced to 12. No reports of recent ill contacts. He was recently hospitalized. He is a former smoker. Influenza swab done in the emergency room was negative. PAST MEDICAL HISTORY: Positive for morbidly obese, congestive heart failure, atrial flutter, diabetes mellitus, obstructive sleep apnea, sarcoid. ALLERGIES: No known allergies. MEDICATIONS: Include albuterol, Zithromax, fentanyl, Lasix, heparin, methylprednisolone, norepinephrine, Zosyn, vancomycin. SOCIAL HISTORY: Resides at home in the community with his significant other. Former smoker. SYSTEMS REVIEW: Neurologic: No loss of consciousness, seizure activity, or focal weakness. Cardiac: Negative chest pain or palpitations. Respiratory: As per HPI. Gastrointestinal: Negative vomiting or diarrhea. Genitourinary: Positive for acute kidney injury. LABORATORY DATA: White count 7.4, hematocrit 33.5, platelets 300, BUN 62, creatinine 2.2. Urinalysis negative. Vancomycin trough 15.2. Influenza swab negative. Blood cultures are now gram-positive in clusters in 3 out of 4 bottles. Chest x-ray shows pulmonary vascular congestion, increased markings left lung field. PHYSICAL EXAMINATION: General: He is morbidly obese. He is on the respirator. Vital Signs: Temperature 97.8, blood pressure 120/79, pulse 135, tachycardic, respirations 18 per minute. HEENT: Sclerae anicteric. Patient is orally intubated. Heart: Tachycardic. S1, S2. Lungs: Air entry bilaterally. Abdomen: Obese, distended, tympanitic. Extremities: Positive for edema. Skin: Multiple catheters in place including an arterial line in the right upper extremity, CVP line in the left neck, peripheral IV in the left upper extremity. IMPRESSION: 1. Acute respiratory failure. 2. Rule out acute respiratory distress syndrome. 3. Congestive heart failure. 4. Pneumonia. 5. Staphylococcal bacteremia. 6. Renal failure. 7. Sepsis/septic shock. PLAN: Await blood culture results. Obtain suction sputum culture and sensitivity. Echocardiogram. Empiric antibiotic coverage with vancomycin, Zosyn, Zithromax. Continue hemodynamic and ventilatory support. Critical care time spent, 35 minutes. Thank you for the kind referral. DENISSE DAVIDSON M.D. [id number]
--- NOTE | 2019-05-01 12:14 | ECHO ---
Name: JORDIN YOSSI Exam:Adult Echocardiogram Study Date: 05/01/2019 08:28 AM Age: 53 yrs Reason For Study: CHF Height: 66 in Weight: 300 lb BSA: 2.4 m2 MMode/2D Measurements & Calculations IVSd: 1.1 cm Ao root diam: 3.6 cm LVIDd: 3.7 cm LA dimension: 2.8 cm LVIDs: 2.3 cm LVPWd: 1.1 cm EDV(Teich): 58.7 ml LVOT diam: 2.0 cm ESV(Teich): 18.9 ml LAV (MOD-bp): 38.8 ml Doppler Measurements & Calculations MV E max melo: 98.0 cm/sec MV A max melo: 34.4 cm/sec MV dec slope: 468.0 cm/sec2 MV E/A: 2.8 MV dec time: 0.12 sec Ao V2 max: 105.9 cm/sec LV V1 max P.6 mmHg Ao max P.5 mmHg LV V1 max: 62.6 cm/sec ANNIE(V,D): 1.8 cm2 TR max melo: 274.5 cm/sec PA V2 max: 69.2 cm/sec TR max P.6 mmHg PA max P.9 mmHg Med Peak E' Melo: 10.9 cm/sec PI Vmax: 99.1 cm/sec Med E/e': 9.0 Lat Peak E' Melo: 8.2 cm/sec Lat E/e': 12.0 Procedure A complete two-dimensional transthoracic echocardiogram was performed (2D, M-mode, Doppler and color flow Doppler). The study was technically difficult with many images being suboptimal in quality. Left Ventricle The left ventricular size, thickness and function are normal. The left ventricular ejection fraction is normal. Ejection Fraction = 55-60%. The left ventricular wall motion is normal. Right Ventricle The right ventricle is normal in size and function. Atria Normal left and right atrial size and function. Mitral Valve There is no mitral regurgitation noted. Tricuspid Valve There is trace tricuspid regurgitation. Right ventricular systolic pressure is normal. Aortic Valve No hemodynamically significant valvular aortic stenosis. No aortic regurgitation is present. Pulmonic Valve There is no pulmonic valvular regurgitation. Great Vessels The aortic root is normal size. Pericardium/Pleura There is no pericardial effusion. Interpretation Summary The study was technically difficult with many images being suboptimal in quality. The left ventricular size, thickness and function are normal The right ventricle is normal in size and function. There is trace tricuspid regurgitation. MD Chadd Fernandez 05/01/2019 12:13 PM
[2019-05-01] MEDS ORDERED: METOPROLOL TARTRATE 5 MG/5 ML VIAL IVPUSH SCH (12:15)
--- NOTE | 2019-05-01 12:15 | PN ---
Teaching Attending Note Name of Resident: Ju Lopez ATTENDING PHYSICIAN STATEMENT I saw and evaluated the patient. I reviewed the resident's note and discussed the case with the resident. I agree with the resident's findings and plan as documented. SUBJECTIVE: Pt seen and examined in the ICU. Remains intubated, sedated, paralyzed. On lower FiO2 but with PEEP 18. Adequate urine output. Off levophed but remains on vasopressin. Heart rates rapid this AM. Blood cultures growing gram positive cocci. OBJECTIVE: Vital Signs Period Temp Pulse Resp BP Sys/Kenyon Pulse Ox Last 24 Hr 97.8 F-99.7 F 104-155 26-99 75-168/54-93 84-100 Intake & Output 04/28/19 04/29/19 04/30/19 05/01/19 23:59 23:59 23:59 23:59 Intake Total 1513.6 320 Output Total 2630 1900 Balance -1116.4 -1580 Weight 136.078 kg 141.884 kg Gen: intubated, sedated Heart: tachycardic Lung: bilateral rhonchi Abd: soft, nontender Ext:+ edema CBC, BMP 05/01/19 05:25 05/01/19 05:25 Active Medications Albuterol/Ipratropium (Duoneb -) 1 amp NEB RQID [facility] Last Admin: 05/01/19 11:46 Dose: 1 amp Chlorhexidine Gluconate (Hibiclens For Decolonization -) 1 applic TP HS [facility] Last Admin: 04/30/19 22:24 Dose: 1 applic Heparin Sodium (Porcine) (Heparin -) 1,000 unit IVPUSH PRN PRN PRN Reason: Heparin Last Admin: 04/30/19 20:05 Dose: 1,000 unit Heparin Sodium (Porcine) (Heparin -) 5,000 unit IVPUSH PRN PRN PRN Reason: Heparin Vasopressin 50 units/ Sodium (Chloride) 100 mls @ 4 mls/hr IVPB ASDIR [facility]; Protocol Last Admin: 05/01/19 10:10 Dose: 2 units/hr, 4 mls/hr Propofol (Diprivan -) 1,000,000 mcg in 100 mls @ 4.082 mls/hr IVPB TITR [facility]; Protocol Last Admin: 05/01/19 10:46 Dose: Not Given Heparin Sodium (Porcine) 50, (000 unit/ Sodium Chloride) 500 mls @ 10 mls/hr IV TITR [facility]; Protocol Last Admin: 05/01/19 10:47 Dose: 1,100 unit/hr, 11 mls/hr Vecuronium [place] 50 mg/ (Dextrose) 250 mls @ 40.82 mls/hr IVPB TITR [facility] Last Admin: 05/01/19 01:00 Dose: 1 mcg/kg/min, 40.82 mls/hr Azithromycin (Zithromax 500mg Ivpb (Pre-Docked)) 500 mg in 250 mls @ 250 mls/ hr IVPB DAILY [facility] Last Admin: 05/01/19 10:20 Dose: 250 mls/hr Norepinephrine Bitartrate 8, 000 mcg/ Dextrose/Sodium Chloride 500 mls @ 18.75 mls/hr IV TITR [facility]; Protocol Last Titration: 04/30/19 19:35 Dose: 0 mcg/min, 0 mls/hr Piperacillin Sod/Tazobactam (Sod 3.375 gm/ Dextrose) 50 mls @ 100 mls/hr IVPB Q8H-IV [facility]; Protocol Furosemide 100 mg/ Sodium (Chloride) 100 mls @ 10 mls/hr IVPB ASDIR [facility]; Protocol Insulin Aspart (Novolog Vial Sliding Scale -) 1 vial SQ ACHS [facility]; Protocol Last Admin: 05/01/19 11:16 Dose: 10 units Methylprednisolone Sodium Succinate (Solu-Medrol -) 60 mg IVPUSH Q8H-IV [facility] Last Admin: 05/01/19 10:15 Dose: 60 mg Metoprolol Tartrate (Lopressor Injection -) 5 mg IVPUSH Q4H PRN PRN Reason: TACHYCARDIA Last Admin: 05/01/19 10:50 Dose: 5 mg Metoprolol Tartrate (Lopressor Injection -) 5 mg IVPUSH Q6H [facility] Mupirocin (Bactroban Ointment (For Decolonization) -) 1 applic NS BID [facility] Stop: 05/05/19 09:59 Last Admin: 04/30/19 22:24 Dose: Not Given Pantoprazole Sodium (Protonix Iv) 40 mg IVPUSH DAILY [facility] Last Admin: 05/01/19 10:13 Dose: 40 mg ASSESSMENT AND PLAN: Acute Hypoxic and Hypercapneic Respiratory Failure Pneumonia Gram Positive Bacteremia Septic Shock Volume Overload r/o ARDS Lactic Acidosis Hyperkalemia Acute Kidney Injury Atrial Flutter with RVR HTN DM Anemia - continue antibiotics - f/u cultures - tirate pressors to maintain MAP >65 - low tidal volume ventilation <6cc/kg/IBW - keep Pplat <30 - allow permissive hypercapnea - continue paralysis for vent synchrony - if unable to oxygenate, will need to transfer for ECMO support - continue lasix - monitor urine output, creatinine - monitor lytes - on empiric medrol - inhaled bronchodilators - rate control - continue anticoagulation - continue volume assist control - not a candidate for weaning at this time - DVT/GI prophylaxis - continue ICU monitoring - prognosis guarded critical care time spent in reviewing chart, evaluating patient and formulating plan 35 min
--- NOTE | 2019-05-01 12:42 | DS ---
Physical Exam: SUBJECTIVE: Patient seen and examined. Patient intubated and sedated. ICU team spoke with team at [facility] yesterday regarding transfer but were recommended to continue medical management and monitor patient. Reached out again to [facility] today and patient accepted for transfer today pending bed availability. OBJECTIVE: Vital Signs Period Temp Pulse Resp BP Sys/Kenyon Pulse Ox Last 24 Hr 97.8 F-98.6 F 104-155 26-99 75-168/54-93 84-100 PHYSICAL EXAM GENERAL: intubated, sedated HEAD: Normal with no signs of trauma. EYES: PERRL ENT: MMM NECK: Trachea midline, supple, Left IJ in place LUNGS: Mechanically ventilated, coarse breath sounds bilaterally, tachypnic HEART: tachycardic ABDOMEN: obese, soft, nontender, decreased bowel sounds EXTREMITIES: 2+ pulses, warm, well-perfused. 1+ non pitting edema bilateral lower extremities NEUROLOGICAL: poor gag reflex, normal muscle tone SKIN: Warm, dry, normal turgor LABS Laboratory Results - last 24 hr 04/30/19 04/30/19 04/30/19 05:05 10:30 12:16 WBC RBC Hgb Hct MCV MCH MCHC RDW Plt Count MPV Absolute Neuts (auto) Neutrophils % Lymphocytes % Monocytes % Eosinophils % Basophils % Nucleated RBC % Hypochromia 0 Platelet Estimate Normal Platelet Comment Present Polychromasia 1+ Poikilocytosis 1+ Basophilic Stippling 1+ Anisocytosis 2+ Microcytosis 1+ Macrocytosis 0 Spherocytes 1+ Target Cells 1+ Tear Drop Cells 1+ Ovalocytes 1+ Stomatocytes 1+ PT with INR INR PTT (Actin FS) Anticoagulation Therapy No Result Required. Puncture Site Right radial ABG pH 7.15 L* ABG pCO2 at Pt Temp 86.8 H* ABG pO2 at Pt Temp 76.0 L ABG HCO3 29.2 H ABG O2 Sat (Measured) 92.0 L ABG O2 Content 13.4 ABG Base Excess -1.0 Adrian Test Positive O2 Delivery Device Vent Oxygen Flow Rate 100% Vent Mode A/c Vent Rate 26 Mechanical Rate Yes PEEP 18.0 Pressure Support Vent 325 Sodium 134 L Potassium 6.2 H* Chloride 99 Carbon Dioxide 27 Anion Gap 8 BUN 64.8 H Creatinine 2.4 H Est GFR (CKD-EPI)AfAm 34.89 Est GFR (CKD-EPI)NonAf 30.10 POC Glucometer Random Glucose 291 H Hemoglobin A1c % Lactic Acid Calcium 8.1 L Phosphorus Magnesium Iron TIBC Iron Saturation Unsaturated IBC Ferritin Total Bilirubin 0.6 AST 32 ALT 52 Alkaline Phosphatase 225 H Creatine Kinase Troponin I Total Protein 6.7 Albumin 3.0 L Random Vancomycin Influenza A (Rapid) Influenza B (Rapid) 04/30/19 04/30/19 04/30/19 12:26 12:45 12:45 WBC RBC Hgb Hct MCV MCH MCHC RDW Plt Count MPV Absolute Neuts (auto) Neutrophils % Lymphocytes % Monocytes % Eosinophils % Basophils % Nucleated RBC % Hypochromia Platelet Estimate Platelet Comment Polychromasia Poikilocytosis Basophilic Stippling Anisocytosis Microcytosis Macrocytosis Spherocytes Target Cells Tear Drop Cells Ovalocytes Stomatocytes PT with INR INR PTT (Actin FS) Anticoagulation Therapy Puncture Site ABG pH ABG pCO2 at Pt Temp ABG pO2 at Pt Temp ABG HCO3 ABG O2 Sat (Measured) ABG O2 Content ABG Base Excess Adrian Test O2 Delivery Device Oxygen Flow Rate Vent Mode Vent Rate Mechanical Rate PEEP Pressure Support Vent Sodium 133 L Potassium 6.5 H* Chloride 99 Carbon Dioxide 30 Anion Gap 5 L BUN 64.0 H Creatinine 2.2 H Est GFR (CKD-EPI)AfAm 38.76 Est GFR (CKD-EPI)NonAf 33.44 POC Glucometer 251 Random Glucose 262 H Hemoglobin A1c % Lactic Acid 1.2 Calcium 8.0 L Phosphorus Magnesium Iron TIBC Iron Saturation Unsaturated IBC Ferritin Total Bilirubin AST ALT Alkaline Phosphatase Creatine Kinase Troponin I Total Protein Albumin Random Vancomycin Influenza A (Rapid) Influenza B (Rapid) 04/30/19 04/30/19 04/30/19 15:57 17:30 18:12 WBC RBC Hgb Hct MCV MCH MCHC RDW Plt Count MPV Absolute Neuts (auto) Neutrophils % Lymphocytes % Monocytes % Eosinophils % Basophils % Nucleated RBC % Hypochromia Platelet Estimate Platelet Comment Polychromasia Poikilocytosis Basophilic Stippling Anisocytosis Microcytosis Macrocytosis Spherocytes Target Cells Tear Drop Cells Ovalocytes Stomatocytes PT with INR INR PTT (Actin FS) Anticoagulation Therapy No Result Required. Puncture Site Right radial ABG pH 7.19 L* ABG pCO2 at Pt Temp 84.4 H* ABG pO2 at Pt Temp 101 H ABG HCO3 30.7 H ABG O2 Sat (Measured) 96.6 ABG O2 Content 13.7 ABG Base Excess 1.1 Adrian Test Positive O2 Delivery Device Mixing Tumbler Operator Oxygen Flow Rate 100 Vent Mode A/c Vent Rate 32 Mechanical Rate 325 PEEP 18.0 Pressure Support Vent No Result Required. Sodium 134 L Potassium 5.8 H Chloride 98 Carbon Dioxide 32 Anion Gap 4 L BUN 59.5 H Creatinine 2.2 H Est GFR (CKD-EPI)AfAm 38.76 Est GFR (CKD-EPI)NonAf 33.44 POC Glucometer 233 Random Glucose 269 H Hemoglobin A1c % Lactic Acid Calcium 8.1 L Phosphorus Magnesium Iron TIBC Iron Saturation Unsaturated IBC Ferritin Total Bilirubin 0.6 AST 23 ALT 47 Alkaline Phosphatase 182 H Creatine Kinase Troponin I Total Protein 6.4 Albumin 2.8 L Random Vancomycin Influenza A (Rapid) Influenza B (Rapid) 04/30/19 04/30/19 04/30/19 18:45 19:05 19:40 WBC RBC Hgb Hct MCV MCH MCHC RDW Plt Count MPV Absolute Neuts (auto) Neutrophils % Lymphocytes % Monocytes % Eosinophils % Basophils % Nucleated RBC % Hypochromia Platelet Estimate Platelet Comment Polychromasia Poikilocytosis Basophilic Stippling Anisocytosis Microcytosis Macrocytosis Spherocytes Target Cells Tear Drop Cells Ovalocytes Stomatocytes PT with INR INR PTT (Actin FS) 40.1 H Anticoagulation Therapy No Result Required. Puncture Site Right radial ABG pH 7.26 L ABG pCO2 at Pt Temp 75.6 H* ABG pO2 at Pt Temp 52.7 L ABG HCO3 32.4 H ABG O2 Sat (Measured) 83.9 L ABG O2 Content 12.3 ABG Base Excess 4.0 H Adrian Test No Result Required. O2 Delivery Device M. vent Oxygen Flow Rate 80% Vent Mode No Result Required. Vent Rate 32 Mechanical Rate Yes PEEP 18.0 Pressure Support Vent 325 Sodium Potassium Chloride Carbon Dioxide Anion Gap BUN Creatinine Est GFR (CKD-EPI)AfAm Est GFR (CKD-EPI)NonAf POC Glucometer 272 Random Glucose Hemoglobin A1c % Lactic Acid Calcium Phosphorus Magnesium Iron TIBC Iron Saturation Unsaturated IBC Ferritin Total Bilirubin AST ALT Alkaline Phosphatase Creatine Kinase Troponin I Total Protein Albumin Random Vancomycin Influenza A (Rapid) Influenza B (Rapid) 04/30/19 04/30/19 04/30/19 19:45 20:15 21:22 WBC RBC Hgb Hct MCV MCH MCHC RDW Plt Count MPV Absolute Neuts (auto) Neutrophils % Lymphocytes % Monocytes % Eosinophils % Basophils % Nucleated RBC % Hypochromia Platelet Estimate Platelet Comment Polychromasia Poikilocytosis Basophilic Stippling Anisocytosis Microcytosis Macrocytosis Spherocytes Target Cells Tear Drop Cells Ovalocytes Stomatocytes PT with INR INR PTT (Actin FS) Anticoagulation Therapy Puncture Site ABG pH ABG pCO2 at Pt Temp ABG pO2 at Pt Temp ABG HCO3 ABG O2 Sat (Measured) ABG O2 Content ABG Base Excess Adrian Test O2 Delivery Device Oxygen Flow Rate Vent Mode Vent Rate Mechanical Rate PEEP Pressure Support Vent Sodium Potassium Chloride Carbon Dioxide Anion Gap BUN Creatinine Est GFR (CKD-EPI)AfAm Est GFR (CKD-EPI)NonAf POC Glucometer 226 Random Glucose Hemoglobin A1c % Lactic Acid Calcium Phosphorus Magnesium Iron TIBC Iron Saturation Unsaturated IBC Ferritin Total Bilirubin AST ALT Alkaline Phosphatase Creatine Kinase Troponin I Total Protein Albumin Random Vancomycin 6.0 L Influenza A (Rapid) Negative Influenza B (Rapid) Negative 04/30/19 04/30/19 05/01/19 21:30 22:30 00:58 WBC RBC Hgb Hct MCV MCH MCHC RDW Plt Count MPV Absolute Neuts (auto) Neutrophils % Lymphocytes % Monocytes % Eosinophils % Basophils % Nucleated RBC % Hypochromia Platelet Estimate Platelet Comment Polychromasia Poikilocytosis Basophilic Stippling Anisocytosis Microcytosis Macrocytosis Spherocytes Target Cells Tear Drop Cells Ovalocytes Stomatocytes PT with INR INR PTT (Actin FS) Anticoagulation Therapy No Result Required. No Result Required. Puncture Site Right radial Arterial line ABG pH 7.09 L* 7.24 L ABG pCO2 at Pt Temp > 100 H* 76.7 H* ABG pO2 at Pt Temp 64.8 L 152 H ABG HCO3 No Result Required. 31.5 H ABG O2 Sat (Measured) 85.8 L 99.0 H ABG O2 Content 12.6 13.4 ABG Base Excess No Result Required. 3.1 H Adrian Test Positive No Result Required. O2 Delivery Device No Result Required. Mech vent Oxygen Flow Rate Yes 90% Vent Mode No Result Required. A/c Vent Rate No Result Required. 35 Mechanical Rate No Result Required. No Result Required. PEEP 18.0 Pressure Support Vent No Result Required. 325 Sodium 136 Potassium 6.1 H* Chloride 98 Carbon Dioxide 37 H Anion Gap 1 L BUN 59.0 H Creatinine 2.2 H Est GFR (CKD-EPI)AfAm 38.76 Est GFR (CKD-EPI)NonAf 33.44 POC Glucometer Random Glucose 218 H Hemoglobin A1c % Lactic Acid Calcium 8.2 L Phosphorus Magnesium Iron TIBC Iron Saturation Unsaturated IBC Ferritin Total Bilirubin AST ALT Alkaline Phosphatase Creatine Kinase Troponin I Total Protein Albumin Random Vancomycin Influenza A (Rapid) Influenza B (Rapid) 05/01/19 05/01/19 05/01/19 01:30 01:30 01:43 WBC RBC Hgb Hct MCV MCH MCHC RDW Plt Count MPV Absolute Neuts (auto) Neutrophils % Lymphocytes % Monocytes % Eosinophils % Basophils % Nucleated RBC % Hypochromia Platelet Estimate Platelet Comment Polychromasia Poikilocytosis Basophilic Stippling Anisocytosis Microcytosis Macrocytosis Spherocytes Target Cells Tear Drop Cells Ovalocytes Stomatocytes PT with INR INR PTT (Actin FS) 54.3 H Anticoagulation Therapy Puncture Site ABG pH ABG pCO2 at Pt Temp ABG pO2 at Pt Temp ABG HCO3 ABG O2 Sat (Measured) ABG O2 Content ABG Base Excess Adrian Test O2 Delivery Device Oxygen Flow Rate Vent Mode Vent Rate Mechanical Rate PEEP Pressure Support Vent Sodium 134 L Potassium 5.9 H Chloride 97 L Carbon Dioxide 36 H Anion Gap 1 L BUN 60.7 H Creatinine 2.2 H Est GFR (CKD-EPI)AfAm 38.76 Est GFR (CKD-EPI)NonAf 33.44 POC Glucometer 230 Random Glucose 240 H Hemoglobin A1c % Lactic Acid Calcium 7.9 L Phosphorus Magnesium Iron TIBC Iron Saturation Unsaturated IBC Ferritin Total Bilirubin AST ALT Alkaline Phosphatase Creatine Kinase Troponin I Total Protein Albumin Random Vancomycin Influenza A (Rapid) Influenza B (Rapid) 05/01/19 05/01/19 05/01/19 05:25 05:25 05:25 WBC 7.4 RBC 4.18 Hgb 10.0 L Hct 33.5 L MCV 80.0 MCH 23.9 L MCHC 29.9 L RDW 19.8 H Plt Count 300 MPV 8.5 Absolute Neuts (auto) 7.2 Neutrophils % 97.1 H Lymphocytes % 1.7 L Monocytes % 1.0 L D Eosinophils % 0.0 D Basophils % 0.2 Nucleated RBC % 0 Hypochromia Platelet Estimate Platelet Comment Polychromasia Poikilocytosis Basophilic Stippling Anisocytosis Microcytosis Macrocytosis Spherocytes Target Cells Tear Drop Cells Ovalocytes Stomatocytes PT with INR 12.60 INR 1.07 PTT (Actin FS) 51.1 H Anticoagulation Therapy Puncture Site ABG pH ABG pCO2 at Pt Temp ABG pO2 at Pt Temp ABG HCO3 ABG O2 Sat (Measured) ABG O2 Content ABG Base Excess Adrian Test O2 Delivery Device Oxygen Flow Rate Vent Mode Vent Rate Mechanical Rate PEEP Pressure Support Vent Sodium Potassium Chloride Carbon Dioxide Anion Gap BUN Creatinine Est GFR (CKD-EPI)AfAm Est GFR (CKD-EPI)NonAf POC Glucometer Random Glucose Hemoglobin A1c % Lactic Acid Calcium Phosphorus Magnesium Iron TIBC Iron Saturation Unsaturated IBC Ferritin Total Bilirubin AST ALT Alkaline Phosphatase Creatine Kinase Troponin I Total Protein Albumin Random Vancomycin 15.2 L Influenza A (Rapid) Influenza B (Rapid) 05/01/19 05/01/19 05/01/19 05:25 05:25 05:25 WBC RBC Hgb Hct MCV MCH MCHC RDW Plt Count MPV Absolute Neuts (auto) Neutrophils % Lymphocytes % Monocytes % Eosinophils % Basophils % Nucleated RBC % Hypochromia Platelet Estimate Platelet Comment Polychromasia Poikilocytosis Basophilic Stippling Anisocytosis Microcytosis Macrocytosis Spherocytes Target Cells Tear Drop Cells Ovalocytes Stomatocytes PT with INR INR PTT (Actin FS) Anticoagulation Therapy Puncture Site ABG pH ABG pCO2 at Pt Temp ABG pO2 at Pt Temp ABG HCO3 ABG O2 Sat (Measured) ABG O2 Content ABG Base Excess Adrian Test O2 Delivery Device Oxygen Flow Rate Vent Mode Vent Rate Mechanical Rate PEEP Pressure Support Vent Sodium 134 L Potassium 6.3 H* Chloride 95 L Carbon Dioxide 35 H Anion Gap 5 L BUN 62.3 H Creatinine 2.2 H Est GFR (CKD-EPI)AfAm 38.76 Est GFR (CKD-EPI)NonAf 33.44 POC Glucometer Random Glucose 270 H Hemoglobin A1c % 8.9 H Lactic Acid Calcium 8.0 L Phosphorus 4.6 Magnesium 1.9 Iron 26 L TIBC 389 Iron Saturation 6 L Unsaturated IBC 363 H Ferritin 36.6 Total Bilirubin 0.6 AST 17 ALT 41 Alkaline Phosphatase 139 H Creatine Kinase 82 Troponin I 0.02 Total Protein 6.2 L Albumin 2.6 L Random Vancomycin Influenza A (Rapid) Influenza B (Rapid) 0105/01/19 05/01/19 05:25 08:23 11:14 WBC RBC Hgb Hct MCV MCH MCHC RDW Plt Count MPV Absolute Neuts (auto) Neutrophils % Lymphocytes % Monocytes % Eosinophils % Basophils % Nucleated RBC % Hypochromia Platelet Estimate Platelet Comment Polychromasia Poikilocytosis Basophilic Stippling Anisocytosis Microcytosis Macrocytosis Spherocytes Target Cells Tear Drop Cells Ovalocytes Stomatocytes PT with INR INR PTT (Actin FS) Anticoagulation Therapy No Result Required. Puncture Site Arterial line ABG pH 7.31 L ABG pCO2 at Pt Temp 66.3 H ABG pO2 at Pt Temp 85.1 ABG HCO3 32.4 H ABG O2 Sat (Measured) 95.9 ABG O2 Content 13.4 ABG Base Excess 5.2 H Adrian Test Not applicable O2 Delivery Device Mech vent Oxygen Flow Rate 70% Vent Mode A/c Vent Rate 35 Mechanical Rate Yes PEEP 18.0 Pressure Support Vent 325 Sodium Potassium Chloride Carbon Dioxide Anion Gap BUN Creatinine Est GFR (CKD-EPI)AfAm Est GFR (CKD-EPI)NonAf POC Glucometer 249 374 Random Glucose Hemoglobin A1c % Lactic Acid Calcium Phosphorus Magnesium Iron TIBC Iron Saturation Unsaturated IBC Ferritin Total Bilirubin AST ALT Alkaline Phosphatase Creatine Kinase Troponin I Total Protein Albumin Random Vancomycin Influenza A (Rapid) Influenza B (Rapid) HOSPITAL COURSE: Date of Admission:04/30/19 Date of Discharge: 05/01/19 53 y/o/m with PMHx. of DM2, HFpEF(last EF: 45-50%), EMMY (non-adherent to CPAP) and atrial flutter presents with sudden onset of shortness of breath. Patient arrived in respiratory distress and was placed on CPAP, however due to worsening condition patient was intubated and sedated. Noted to be in acute renal failure with hyperkalemia on labs during admission. Nephrology was consulted and patient was given Lokelma, Albuterol, Insulin, and D50. CXR showed volume overload and large heart on admission and repeat CXR's showed worsening pulmonary edema. ABGs were completed and vent setting were adjusted appropriately. Patient was given lasix for volume overload. Echocardiogram showed a normal EF with other significant abnormalities. A central line was inserted in the left IJ for pressor support and patient was started on Vasopressin. Patient was started on a Heparin drip due to history of A flutter, home meds for rate control were held due to tenuous blood pressure. Renal failure likely secondary to volume overload. Patient had hyperkalemia refractory to medical treatment and consideration for dialysis was made in discussion with Nephro, however no decision made for dialysis at this time. Patient noted to have 2 positive blood culture bottles, repeat blood cultures pending. ICU team spoke with [facility] regarding transfer on day of admission but were recommended to continue management and monitor patient initially, however spoke with team at [facility] again today and patient accepted for transfer. Patient to be transferred to [facility] pending bed availability. Minutes to complete discharge: 36 Discharge Summary Problems reviewed: Yes Reason For Visit: ACUTE RENAL FAILURE,HYTPERKALEMIA,ACUTE DDECOMPENS Current Active Problems Acute decompensated heart failure (Acute) Acute hypercapnic respiratory failure due to obstructive sleep apnea (Acute) Acute renal failure (Acute) Atrial fibrillation and flutter (Acute) Hyperkalemia (Acute) Pneumonia (Acute) Sarcoidosis of other sites (Acute) Septic shock (Acute) Type 2 diabetes mellitus (Acute) Condition: Critical - Instructions Diet, Activity, Other Instructions: Pt to be transferred to [facility] for higher level of care. Disposition: TRANSFER ACUTE CARE/OTHER HOSP - Home Medications Comprehensive Discharge Medication List: Ambulatory Orders Amiodarone HCl 200 mg PO DAILY 04/30/19 Apixaban [Eliquis] 5 mg PO BID 04/30/19 Diltiazem Cd [Cardizem Cd -] 300 mg PO DAILY 04/30/19 Furosemide 40 mg PO BID 04/30/19 Glipizide 10 mg PO DAILY 04/30/19 Lisinopril 10 mg PO DAILY 04/30/19 Metformin HCl [Glucophage] 1,000 mg PO BID 04/30/19 Sitagliptin Phosphate [Januvia] 100 mg PO DAILY 04/30/19 This patient is new to me today: Yes Date on this admission: 05/01/19 Emergency Visit: Yes ED Registration Date: 04/30/19 Care time: The patient presented to the Emergency Department on the above date and was hospitalized for further evaluation of their emergent condition. Critical Care patient: Yes Total Critical Care Time (in minutes): 36 Critical Care Statement: The care of this patient involved high complexity decision making to prevent further life threatening deterioration of the patient 's condition and/or to evaluate & treat vital organ system(s) failure or risk of failure. - Discharge Referral Referred to [facility] No ATTENDING PHYSICIAN STATEMENT I saw and evaluated the patient. I reviewed the resident's note and discussed the case with the resident. I agree with the resident's findings and plan as documented. SUBJECTIVE: OBJECTIVE: ASSESSMENT AND PLAN:
[2019-05-01 12:45] LABS: ARTERIAL BLD GAS O2 SATURATION 91.3 % (95-98); ARTERIAL BLOOD GAS BASE EXCESS 4.2 meq/l (-2-2); ARTERIAL BLOOD GAS PCO2 61.4 mmHg (35-45); ARTERIAL BLOOD GAS PO2 66.3 mmHg (80-100); ARTERIAL BLOOD GAS pH 7.32 (7.35-7.45)
[2019-05-01] MEDS ORDERED: fentaNYL CITRATE 250 MCG/5 ML VIAL ONE ×2 (12:49→21:23)
[2019-05-01 12:53] LABS: ANISOCYTOSIS 2+; MACROCYTOSIS 2+; PLATELET ESTIMATE NORMAL
[2019-05-01] MEDS: FENTANYL INJECTION 500 MCG in DEXTROSE 5%-WATER - 90 ML IVPB SCH (13:07)
--- NOTE | 2019-05-01 13:50 | PN ---
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, Physician History of Present Illness: Pt seen and examined at bedside. He remains in the ICU. He remains intubated. Overnight events noted. - Current Medication List Current Medications: Active Medications Albuterol/Ipratropium (Duoneb -) 1 amp NEB RQID ELISSA Last Admin: 05/01/19 11:46 Dose: 1 amp Chlorhexidine Gluconate (Hibiclens For Decolonization -) 1 applic TP HS ELISSA Last Admin: 04/30/19 22:24 Dose: 1 applic Heparin Sodium (Porcine) (Heparin -) 1,000 unit IVPUSH PRN PRN PRN Reason: Heparin Last Admin: 04/30/19 20:05 Dose: 1,000 unit Heparin Sodium (Porcine) (Heparin -) 5,000 unit IVPUSH PRN PRN PRN Reason: Heparin Vasopressin 50 units/ Sodium (Chloride) 100 mls @ 4 mls/hr IVPB ASDIR ELISSA; Protocol Last Admin: 05/01/19 10:10 Dose: 2 units/hr, 4 mls/hr Propofol (Diprivan -) 1,000,000 mcg in 100 mls @ 4.082 mls/hr IVPB TITR ELISSA; Protocol Last Admin: 05/01/19 10:46 Dose: Not Given Heparin Sodium (Porcine) 50, (000 unit/ Sodium Chloride) 500 mls @ 10 mls/hr IV TITR ELISSA; Protocol Last Admin: 05/01/19 10:47 Dose: 1,100 unit/hr, 11 mls/hr Vecuronium Davidson 50 mg/ (Dextrose) 250 mls @ 40.82 mls/hr IVPB TITR ELISSA Last Admin: 05/01/19 12:57 Dose: 1 mcg/kg/min, 40.82 mls/hr Azithromycin (Zithromax 500mg Ivpb (Pre-Docked)) 500 mg in 250 mls @ 250 mls/ hr IVPB DAILY ELISSA Last Admin: 05/01/19 10:20 Dose: 250 mls/hr Norepinephrine Bitartrate 8, 000 mcg/ Dextrose/Sodium Chloride 500 mls @ 18.75 mls/hr IV TITR ELISSA; Protocol Last Titration: 04/30/19 19:35 Dose: 0 mcg/min, 0 mls/hr Piperacillin Sod/Tazobactam (Sod 3.375 gm/ Dextrose) 50 mls @ 100 mls/hr IVPB Q8H-IV ELISSA; Protocol Furosemide 100 mg/ Sodium (Chloride) 100 mls @ 10 mls/hr IVPB ASDIR ELISSA; Protocol Fentanyl 500 mcg/ Dextrose 100 mls @ 10 mls/hr IVPB TITR ELISSA; Protocol Last Admin: 05/01/19 13:07 Dose: 50 mcg/hr, 10 mls/hr Insulin Aspart (Novolog Vial Sliding Scale -) 1 vial SQ ACHS [facility]; Protocol Last Admin: 05/01/19 11:16 Dose: 10 units Methylprednisolone Sodium Succinate (Solu-Medrol -) 60 mg IVPUSH Q8H-IV ELISSA Last Admin: 05/01/19 10:15 Dose: 60 mg Metoprolol Tartrate (Lopressor Injection -) 5 mg IVPUSH Q4H PRN PRN Reason: TACHYCARDIA Last Admin: 05/01/19 10:50 Dose: 5 mg Metoprolol Tartrate (Lopressor Injection -) 5 mg IVPUSH Q6H ELISSA Mupirocin (Bactroban Ointment (For Decolonization) -) 1 applic NS BID [facility] Stop: 05/05/19 09:59 Last Admin: 05/01/19 10:00 Dose: 1 applic Pantoprazole Sodium (Protonix Iv) 40 mg IVPUSH DAILY [facility] Last Admin: 05/01/19 10:13 Dose: 40 mg - Objective Vital Signs: Vital Signs Temperature 99.7 F H 05/01/19 12:00 Pulse Rate 132 H 05/01/19 12:00 Respiratory Rate 36 H 05/01/19 12:00 Blood Pressure 106/62 05/01/19 12:00 O2 Sat by Pulse Oximetry (%) 95 05/01/19 10:00 Constitutional: Yes: Calm Eyes: Yes: Conjunctiva Clear HENT: Yes: Atraumatic Cardiovascular: Yes: Tachycardia, Pulse Irregular, S1, S2 Respiratory: Yes: Mechanically Ventilated, Rhonchi Gastrointestinal: Yes: Soft, Abdomen, Obese Genitourinary: Yes: Andrews Present Musculoskeletal: Yes: Other (obese extremities) Edema: Yes Edema: LLE: 2+, RLE: 2+ Integumentary: Yes: Venous Stasis Changes Neurological: Yes: Lethargy Labs: CBC, BMP 05/01/19 05:25 05/01/19 05:25 INR, PTT INR 1.07 (0.83-1.09) 05/01/19 05:25 - ....Imaging Chest X-ray: Report Reviewed Problem List - Problems (1) Acute decompensated heart failure Code(s): I50.9 - HEART FAILURE, UNSPECIFIED (2) Atrial fibrillation and flutter Code(s): I48.91 - UNSPECIFIED ATRIAL FIBRILLATION; I48.92 - UNSPECIFIED ATRIAL FLUTTER (3) Hyperkalemia Code(s): E87.5 - HYPERKALEMIA (4) Pneumonia Code(s): J18.9 - PNEUMONIA, UNSPECIFIED ORGANISM Qualifiers: Pneumonia type: due to unspecified organism (5) Sarcoidosis of other sites Code(s): D86.89 - SARCOIDOSIS OF OTHER SITES Assessment/Plan Current Medications Generic Name Dose Route Start Last Admin Trade Name Freq PRN Reason Stop Dose Admin Albuterol/Ipratropium 1 amp 04/30/19 16:00 05/01/19 11:46 Duoneb - NEB 1 amp RQID ELISSA Administration Chlorhexidine Gluconate 1 applic 04/30/19 22:00 04/30/19 22:24 Hibiclens For Decolonization - TP 1 applic HS ELISSA Administration Heparin Sodium (Porcine) 1,000 unit 04/30/19 10:40 04/30/19 20:05 Heparin - IVPUSH 1,000 unit PRN PRN Administration Heparin Heparin Sodium (Porcine) 5,000 unit 04/30/19 10:40 Heparin - IVPUSH PRN PRN Heparin Vasopressin 50 units/ Sodium 100 mls @ 4 mls/hr 04/30/19 09:30 05/01/19 10:10 Chloride IVPB 2 units/hr ASDIR ELISSA 4 mls/hr Administration Protocol 2 UNITS/HR Propofol 1,000,000 mcg in 100 mls @ 4.082 mls/hr 04/30/19 10:15 05/01/19 10: 46 Diprivan - IVPB Not Given TITR ELISSA Protocol 5 MCG/KG/MIN Heparin Sodium (Porcine) 50, 500 mls @ 10 mls/hr 04/30/19 10:45 05/01/19 10: 47 000 unit/ Sodium Chloride IV 1,100 unit/hr TITR ELISSA 11 mls/hr Administration Protocol 1,000 UNIT/HR Vecuronium Davidson 50 mg/ 250 mls @ 40.82 mls/hr 04/30/19 12:15 05/01/19 12: 57 Dextrose IVPB 1 mcg/kg/min TITR ELISSA 40.82 mls/hr Administration 1 MCG/KG/MIN Azithromycin 500 mg in 250 mls @ 250 mls/hr 04/30/19 12:30 05/01/19 10:20 Zithromax 500mg Ivpb (Pre-Docked) IVPB 250 mls/hr DAILY ELISSA Administration Norepinephrine Bitartrate 8, 500 mls @ 18.75 mls/hr 04/30/19 14:00 04/30/19 19:35 000 mcg/ Dextrose/Sodium IV 0 mcg/min Chloride TITR ELISSA 0 mls/hr Titration Protocol 5 MCG/MIN Piperacillin Sod/Tazobactam 50 mls @ 100 mls/hr 05/01/19 18:00 Sod 3.375 gm/ Dextrose IVPB Q8H-IV ELISSA Protocol Furosemide 100 mg/ Sodium 100 mls @ 10 mls/hr 05/01/19 09:15 Chloride IVPB ASDIR ELISSA Protocol Fentanyl 500 mcg/ Dextrose 100 mls @ 10 mls/hr 05/01/19 12:45 05/01/19 13:07 IVPB 50 mcg/hr TITR ELISSA 10 mls/hr Administration Protocol 50 MCG/HR Insulin Aspart 1 vial 04/30/19 11:00 05/01/19 11:16 Novolog Vial Sliding Scale - SQ 10 units ACHS ELISSA Administration Protocol Methylprednisolone Sodium Succinate 60 mg 04/30/19 12:30 05/01/19 10:15 Solu-Medrol - IVPUSH 60 mg Q8H-IV ELISSA Administration Metoprolol Tartrate 5 mg 04/30/19 08:57 05/01/19 10:50 Lopressor Injection - IVPUSH 5 mg Q4H PRN Administration TACHYCARDIA Metoprolol Tartrate 5 mg 05/01/19 15:00 Lopressor Injection - IVPUSH Q6H ELISSA Mupirocin 1 applic 04/30/19 10:00 05/01/19 10:00 Bactroban Ointment (For Decolonization) - NS 05/05/19 09:59 1 applic BID ELISSA Administration Pantoprazole Sodium 40 mg 05/01/19 10:00 05/01/19 10:13 Protonix Iv IVPUSH 40 mg DAILY ELISSA Administration Impression 1. RYNE 2. hyperkalemia 3. resp failure requiring intubation 4. resp acidosis 5. dm 6. hx htn 7. sleep apnea 8. obesity 9. hx non compliance 10. chf 11. sarcoid 12. volume overload Plan - potassium improved however this morning's is elevated - will treat potassium medically - pt unstable for HD secondary to hypotension requiring pressors and is tachycardic at 130 to 140 range - pt being transferred to [facility] where he can have cvvh/cvvhd if potassium does not improve - lasix should help with hyperkalemia - pt is responding to lasix and is making urine - cont with lasix, can start drip and monitor output - avoid nsaids - pressors to a map of 65 - discussed with ICU team
[2019-05-01] MEDS: METOPROLOL TARTRATE 5 MG/5 ML VIAL IVPUSH SCH ×2 (15:00→20:53)
--- NOTE | 2019-05-01 15:07 | PN ---
Physical Exam: SUBJECTIVE: Patient seen and examined. Remains intubated, sedated, paralyzed. check overnight resident note for detail of events. Adequate urine output. . Heart rates rapid this AM. Blood cultures growing gram positive cocci. pending transfer to [facility]. OBJECTIVE: Vital Signs Period Temp Pulse Resp BP Sys/[place] Pulse Ox Last 24 Hr 97.8 F-99.7 F 104-155 26-36 75-168/54-93 84-100 GENERAL: INTUBATED. HEAD: Normal with no signs of trauma. LUNGS: diffuse rales/rhonchi HEART: irregular rate and rhythm and tachy, S1, S2 without murmur, rub or gallop. ABDOMEN: Soft, nontender, distended and obese EXTREMITIES: 2+ pulses, warm, well-perfused,1+ edema. NEUROLOGICAL: intubated and sedated SKIN: Warm, dry, lesion on middle finger on right hand Laboratory Results - last 24 hr 04/30/19 04/30/19 04/30/19 12:45 15:57 17:30 WBC RBC Hgb Hct MCV MCH MCHC RDW Plt Count MPV Absolute Neuts (auto) Neutrophils % Neutrophils % (Manual) Band Neutrophils % Lymphocytes % Lymphocytes % (Manual) Monocytes % Monocytes % (Manual) Eosinophils % Eosinophils % (Manual) Basophils % Basophils % (Manual) Myelocytes % (Man) Promyelocytes % (Man) Blast Cells % (Manual) Nucleated RBC % Metamyelocytes Hypochromia Platelet Estimate Polychromasia Poikilocytosis Basophilic Stippling Anisocytosis Microcytosis Macrocytosis PT with INR INR PTT (Actin FS) Anticoagulation Therapy No Result Required. Puncture Site Right radial ABG pH 7.19 L* ABG pCO2 at Pt Temp 84.4 H* ABG pO2 at Pt Temp 101 H ABG HCO3 30.7 H ABG O2 Sat (Measured) 96.6 ABG O2 Content 13.7 ABG Base Excess 1.1 Adrian Test Positive O2 Delivery Device Physics Professor Oxygen Flow Rate 100 Vent Mode A/c Vent Rate 32 Mechanical Rate 325 PEEP 18.0 Pressure Support Vent No Result Required. Sodium 133 L 134 L Potassium 6.5 H* 5.8 H Chloride 99 98 Carbon Dioxide 30 32 Anion Gap 5 L 4 L BUN 64.0 H 59.5 H Creatinine 2.2 H 2.2 H Est GFR (CKD-EPI)AfAm 38.76 38.76 Est GFR (CKD-EPI)NonAf 33.44 33.44 POC Glucometer Random Glucose 262 H 269 H Hemoglobin A1c % Calcium 8.0 L 8.1 L Phosphorus Magnesium Iron TIBC Iron Saturation Unsaturated IBC Ferritin Total Bilirubin 0.6 AST 23 ALT 47 Alkaline Phosphatase 182 H Creatine Kinase Troponin I Total Protein 6.4 Albumin 2.8 L Random Vancomycin Influenza A (Rapid) Influenza B (Rapid) 04/30/19 04/30/19 04/30/19 18:12 18:45 19:05 WBC RBC Hgb Hct MCV MCH MCHC RDW Plt Count MPV Absolute Neuts (auto) Neutrophils % Neutrophils % (Manual) Band Neutrophils % Lymphocytes % Lymphocytes % (Manual) Monocytes % Monocytes % (Manual) Eosinophils % Eosinophils % (Manual) Basophils % Basophils % (Manual) Myelocytes % (Man) Promyelocytes % (Man) Blast Cells % (Manual) Nucleated RBC % Metamyelocytes Hypochromia Platelet Estimate Polychromasia Poikilocytosis Basophilic Stippling Anisocytosis Microcytosis Macrocytosis PT with INR INR PTT (Actin FS) 40.1 H Anticoagulation Therapy No Result Required. Puncture Site Right radial ABG pH 7.26 L ABG pCO2 at Pt Temp 75.6 H* ABG pO2 at Pt Temp 52.7 L ABG HCO3 32.4 H ABG O2 Sat (Measured) 83.9 L ABG O2 Content 12.3 ABG Base Excess 4.0 H Adrian Test No Result Required. O2 Delivery Device M. vent Oxygen Flow Rate 80% Vent Mode No Result Required. Vent Rate 32 Mechanical Rate Yes PEEP 18.0 Pressure Support Vent 325 Sodium Potassium Chloride Carbon Dioxide Anion Gap BUN Creatinine Est GFR (CKD-EPI)AfAm Est GFR (CKD-EPI)NonAf POC Glucometer 233 Random Glucose Hemoglobin A1c % Calcium Phosphorus Magnesium Iron TIBC Iron Saturation Unsaturated IBC Ferritin Total Bilirubin AST ALT Alkaline Phosphatase Creatine Kinase Troponin I Total Protein Albumin Random Vancomycin Influenza A (Rapid) Influenza B (Rapid) 04/30/19 04/30/19 04/30/19 19:40 19:45 20:15 WBC RBC Hgb Hct MCV MCH MCHC RDW Plt Count MPV Absolute Neuts (auto) Neutrophils % Neutrophils % (Manual) Band Neutrophils % Lymphocytes % Lymphocytes % (Manual) Monocytes % Monocytes % (Manual) Eosinophils % Eosinophils % (Manual) Basophils % Basophils % (Manual) Myelocytes % (Man) Promyelocytes % (Man) Blast Cells % (Manual) Nucleated RBC % Metamyelocytes Hypochromia Platelet Estimate Polychromasia Poikilocytosis Basophilic Stippling Anisocytosis Microcytosis Macrocytosis PT with INR INR PTT (Actin FS) Anticoagulation Therapy Puncture Site ABG pH ABG pCO2 at Pt Temp ABG pO2 at Pt Temp ABG HCO3 ABG O2 Sat (Measured) ABG O2 Content ABG Base Excess Adrian Test O2 Delivery Device Oxygen Flow Rate Vent Mode Vent Rate Mechanical Rate PEEP Pressure Support Vent Sodium Potassium Chloride Carbon Dioxide Anion Gap BUN Creatinine Est GFR (CKD-EPI)AfAm Est GFR (CKD-EPI)NonAf POC Glucometer 272 Random Glucose Hemoglobin A1c % Calcium Phosphorus Magnesium Iron TIBC Iron Saturation Unsaturated IBC Ferritin Total Bilirubin AST ALT Alkaline Phosphatase Creatine Kinase Troponin I Total Protein Albumin Random Vancomycin 6.0 L Influenza A (Rapid) Negative Influenza B (Rapid) Negative 04/30/19 04/30/19 04/30/19 21:22 21:30 22:30 WBC RBC Hgb Hct MCV MCH MCHC RDW Plt Count MPV Absolute Neuts (auto) Neutrophils % Neutrophils % (Manual) Band Neutrophils % Lymphocytes % Lymphocytes % (Manual) Monocytes % Monocytes % (Manual) Eosinophils % Eosinophils % (Manual) Basophils % Basophils % (Manual) Myelocytes % (Man) Promyelocytes % (Man) Blast Cells % (Manual) Nucleated RBC % Metamyelocytes Hypochromia Platelet Estimate Polychromasia Poikilocytosis Basophilic Stippling Anisocytosis Microcytosis Macrocytosis PT with INR INR PTT (Actin FS) Anticoagulation Therapy No Result Required. Puncture Site Right radial ABG pH 7.09 L* ABG pCO2 at Pt Temp > 100 H* ABG pO2 at Pt Temp 64.8 L ABG HCO3 No Result Required. ABG O2 Sat (Measured) 85.8 L ABG O2 Content 12.6 ABG Base Excess No Result Required. Adrian Test Positive O2 Delivery Device No Result Required. Oxygen Flow Rate Yes Vent Mode No Result Required. Vent Rate No Result Required. Mechanical Rate No Result Required. PEEP Pressure Support Vent No Result Required. Sodium 136 Potassium 6.1 H* Chloride 98 Carbon Dioxide 37 H Anion Gap 1 L BUN 59.0 H Creatinine 2.2 H Est GFR (CKD-EPI)AfAm 38.76 Est GFR (CKD-EPI)NonAf 33.44 POC Glucometer 226 Random Glucose 218 H Hemoglobin A1c % Calcium 8.2 L Phosphorus Magnesium Iron TIBC Iron Saturation Unsaturated IBC Ferritin Total Bilirubin AST ALT Alkaline Phosphatase Creatine Kinase Troponin I Total Protein Albumin Random Vancomycin Influenza A (Rapid) Influenza B (Rapid) 05/01/19 05/01/19 05/01/19 00:58 01:30 01:30 WBC RBC Hgb Hct MCV MCH MCHC RDW Plt Count MPV Absolute Neuts (auto) Neutrophils % Neutrophils % (Manual) Band Neutrophils % Lymphocytes % Lymphocytes % (Manual) Monocytes % Monocytes % (Manual) Eosinophils % Eosinophils % (Manual) Basophils % Basophils % (Manual) Myelocytes % (Man) Promyelocytes % (Man) Blast Cells % (Manual) Nucleated RBC % Metamyelocytes Hypochromia Platelet Estimate Polychromasia Poikilocytosis Basophilic Stippling Anisocytosis Microcytosis Macrocytosis PT with INR INR PTT (Actin FS) 54.3 H Anticoagulation Therapy No Result Required. Puncture Site Arterial line ABG pH 7.24 L ABG pCO2 at Pt Temp 76.7 H* ABG pO2 at Pt Temp 152 H ABG HCO3 31.5 H ABG O2 Sat (Measured) 99.0 H ABG O2 Content 13.4 ABG Base Excess 3.1 H Adrian Test No Result Required. O2 Delivery Device [facility] vent Oxygen Flow Rate 90% Vent Mode A/c Vent Rate 35 Mechanical Rate No Result Required. PEEP 18.0 Pressure Support Vent 325 Sodium 134 L Potassium 5.9 H Chloride 97 L Carbon Dioxide 36 H Anion Gap 1 L BUN 60.7 H Creatinine 2.2 H Est GFR (CKD-EPI)AfAm 38.76 Est GFR (CKD-EPI)NonAf 33.44 POC Glucometer Random Glucose 240 H Hemoglobin A1c % Calcium 7.9 L Phosphorus Magnesium Iron TIBC Iron Saturation Unsaturated IBC Ferritin Total Bilirubin AST ALT Alkaline Phosphatase Creatine Kinase Troponin I Total Protein Albumin Random Vancomycin Influenza A (Rapid) Influenza B (Rapid) 05/01/19 05/01/19 05/01/19 01:43 05:25 05:25 WBC 7.4 RBC 4.18 Hgb 10.0 L Hct 33.5 L MCV 80.0 MCH 23.9 L MCHC 29.9 L RDW 19.8 H Plt Count 300 MPV 8.5 Absolute Neuts (auto) 7.2 Neutrophils % 97.1 H Neutrophils % (Manual) 97.0 H Band Neutrophils % 0.0 Lymphocytes % 1.7 L Lymphocytes % (Manual) 2.0 L Monocytes % 1.0 L D Monocytes % (Manual) 0 L Eosinophils % 0.0 D Eosinophils % (Manual) 0.0 Basophils % 0.2 Basophils % (Manual) 0.0 Myelocytes % (Man) 0 Promyelocytes % (Man) 0 Blast Cells % (Manual) 0 Nucleated RBC % 0 Metamyelocytes 0 Hypochromia 0 Platelet Estimate Normal Polychromasia 2+ Poikilocytosis 0 Basophilic Stippling 1+ Anisocytosis 2+ Microcytosis 2+ Macrocytosis 2+ PT with INR INR PTT (Actin FS) Anticoagulation Therapy Puncture Site ABG pH ABG pCO2 at Pt Temp ABG pO2 at Pt Temp ABG HCO3 ABG O2 Sat (Measured) ABG O2 Content ABG Base Excess Adrian Test O2 Delivery Device Oxygen Flow Rate Vent Mode Vent Rate Mechanical Rate PEEP Pressure Support Vent Sodium Potassium Chloride Carbon Dioxide Anion Gap BUN Creatinine Est GFR (CKD-EPI)AfAm Est GFR (CKD-EPI)NonAf POC Glucometer 230 Random Glucose Hemoglobin A1c % Calcium Phosphorus Magnesium Iron TIBC Iron Saturation Unsaturated IBC Ferritin Total Bilirubin AST ALT Alkaline Phosphatase Creatine Kinase Troponin I Total Protein Albumin Random Vancomycin 15.2 L Influenza A (Rapid) Influenza B (Rapid) 05/01/19 05/01/19 05/01/19 05:25 05:25 05:25 WBC RBC Hgb Hct MCV MCH MCHC RDW Plt Count MPV Absolute Neuts (auto) Neutrophils % Neutrophils % (Manual) Band Neutrophils % Lymphocytes % Lymphocytes % (Manual) Monocytes % Monocytes % (Manual) Eosinophils % Eosinophils % (Manual) Basophils % Basophils % (Manual) Myelocytes % (Man) Promyelocytes % (Man) Blast Cells % (Manual) Nucleated RBC % Metamyelocytes Hypochromia Platelet Estimate Polychromasia Poikilocytosis Basophilic Stippling Anisocytosis Microcytosis Macrocytosis PT with INR 12.60 INR 1.07 PTT (Actin FS) 51.1 H Anticoagulation Therapy Puncture Site ABG pH ABG pCO2 at Pt Temp ABG pO2 at Pt Temp ABG HCO3 ABG O2 Sat (Measured) ABG O2 Content ABG Base Excess Adrian Test O2 Delivery Device Oxygen Flow Rate Vent Mode Vent Rate Mechanical Rate PEEP Pressure Support Vent Sodium Potassium Chloride Carbon Dioxide Anion Gap BUN Creatinine Est GFR (CKD-EPI)AfAm Est GFR (CKD-EPI)NonAf POC Glucometer Random Glucose Hemoglobin A1c % 8.9 H Calcium Phosphorus 4.6 Magnesium 1.9 Iron TIBC Iron Saturation Unsaturated IBC Ferritin Total Bilirubin AST ALT Alkaline Phosphatase Creatine Kinase 82 Troponin I 0.02 Total Protein Albumin Random Vancomycin Influenza A (Rapid) Influenza B (Rapid) 05/01/19 05/01/19 05/01/19 05:25 05:25 08:23 WBC RBC Hgb Hct MCV MCH MCHC RDW Plt Count MPV Absolute Neuts (auto) Neutrophils % Neutrophils % (Manual) Band Neutrophils % Lymphocytes % Lymphocytes % (Manual) Monocytes % Monocytes % (Manual) Eosinophils % Eosinophils % (Manual) Basophils % Basophils % (Manual) Myelocytes % (Man) Promyelocytes % (Man) Blast Cells % (Manual) Nucleated RBC % Metamyelocytes Hypochromia Platelet Estimate Polychromasia Poikilocytosis Basophilic Stippling Anisocytosis Microcytosis Macrocytosis PT with INR INR PTT (Actin FS) Anticoagulation Therapy No Result Required. Puncture Site Arterial line ABG pH 7.31 L ABG pCO2 at Pt Temp 66.3 H ABG pO2 at Pt Temp 85.1 ABG HCO3 32.4 H ABG O2 Sat (Measured) 95.9 ABG O2 Content 13.4 ABG Base Excess 5.2 H Adrian Test Not applicable O2 Delivery Device Mech vent Oxygen Flow Rate 70% Vent Mode A/c Vent Rate 35 Mechanical Rate Yes PEEP 18.0 Pressure Support Vent 325 Sodium 134 L Potassium 6.3 H* Chloride 95 L Carbon Dioxide 35 H Anion Gap 5 L BUN 62.3 H Creatinine 2.2 H Est GFR (CKD-EPI)AfAm 38.76 Est GFR (CKD-EPI)NonAf 33.44 POC Glucometer 249 Random Glucose 270 H Hemoglobin A1c % Calcium 8.0 L Phosphorus Magnesium Iron 26 L TIBC 389 Iron Saturation 6 L Unsaturated IBC 363 H Ferritin 36.6 Total Bilirubin 0.6 AST 17 ALT 41 Alkaline Phosphatase 139 H Creatine Kinase Troponin I Total Protein 6.2 L Albumin 2.6 L Random Vancomycin Influenza A (Rapid) Influenza B (Rapid) 05/01/19 05/01/19 11:14 12:34 WBC RBC Hgb Hct MCV MCH MCHC RDW Plt Count MPV Absolute Neuts (auto) Neutrophils % Neutrophils % (Manual) Band Neutrophils % Lymphocytes % Lymphocytes % (Manual) Monocytes % Monocytes % (Manual) Eosinophils % Eosinophils % (Manual) Basophils % Basophils % (Manual) Myelocytes % (Man) Promyelocytes % (Man) Blast Cells % (Manual) Nucleated RBC % Metamyelocytes Hypochromia Platelet Estimate Polychromasia Poikilocytosis Basophilic Stippling Anisocytosis Microcytosis Macrocytosis PT with INR INR PTT (Actin FS) Anticoagulation Therapy No Result Required. Puncture Site Arterial line ABG pH 7.32 L ABG pCO2 at Pt Temp 61.4 H ABG pO2 at Pt Temp 66.3 L ABG HCO3 30.8 H ABG O2 Sat (Measured) 91.3 L ABG O2 Content 12.0 ABG Base Excess 4.2 H Adrian Test Not applicable O2 Delivery Device Mech vent Oxygen Flow Rate 80% Vent Mode A/c Vent Rate 36 Mechanical Rate Yes PEEP 12.0 Pressure Support Vent 325 Sodium Potassium Chloride Carbon Dioxide Anion Gap BUN Creatinine Est GFR (CKD-EPI)AfAm Est GFR (CKD-EPI)NonAf POC Glucometer 374 Random Glucose Hemoglobin A1c % Calcium Phosphorus Magnesium Iron TIBC Iron Saturation Unsaturated IBC Ferritin Total Bilirubin AST ALT Alkaline Phosphatase Creatine Kinase Troponin I Total Protein Albumin Random Vancomycin Influenza A (Rapid) Influenza B (Rapid) Active Medications Generic Name Dose Route Start Last Admin Trade Name Freq PRN Reason Stop Dose Admin Albuterol/Ipratropium 1 amp 04/30/19 16:00 05/01/19 11:46 Duoneb - NEB 1 amp RQID ELISSA Administration Chlorhexidine Gluconate 1 applic 04/30/19 22:00 04/30/19 22:24 Hibiclens For Decolonization - TP 1 applic HS ELISSA Administration Heparin Sodium (Porcine) 1,000 unit 04/30/19 10:40 04/30/19 20:05 Heparin - IVPUSH 1,000 unit PRN PRN Administration Heparin Heparin Sodium (Porcine) 5,000 unit 04/30/19 10:40 Heparin - IVPUSH PRN PRN Heparin Vasopressin 50 units/ Sodium 100 mls @ 4 mls/hr 04/30/19 09:30 05/01/19 10:10 Chloride IVPB 2 units/hr ASDIR ELISSA 4 mls/hr Administration Protocol 2 UNITS/HR Propofol 1,000,000 mcg in 100 mls @ 4.082 mls/hr 04/30/19 10:15 05/01/19 10:46 Diprivan - IVPB Not Given TITR ELISSA Protocol 5 MCG/KG/MIN Heparin Sodium (Porcine) 50, 500 mls @ 10 mls/hr 04/30/19 10:45 05/01/19 10:47 000 unit/ Sodium Chloride IV 1,100 unit/hr TITR ELISSA 11 mls/hr Administration Protocol 1,000 UNIT/HR Vecuronium Evangeline 50 mg/ 250 mls @ 40.82 mls/hr 04/30/19 12:15 05/01/19 12:57 Dextrose IVPB 1 mcg/kg/min TITR ELISSA 40.82 mls/hr Administration 1 MCG/KG/MIN Azithromycin 500 mg in 250 mls @ 250 mls/hr 04/30/19 12:30 05/01/19 10:20 Zithromax 500mg Ivpb (Pre-Docked) IVPB 250 mls/hr DAILY ELISSA Administration Norepinephrine Bitartrate 8, 500 mls @ 18.75 mls/hr 04/30/19 14:00 04/30/19 19:35 000 mcg/ Dextrose/Sodium IV 0 mcg/min Chloride TITR ELISSA 0 mls/hr Titration Protocol 5 MCG/MIN Piperacillin Sod/Tazobactam 50 mls @ 100 mls/hr 05/01/19 18:00 Sod 3.375 gm/ Dextrose IVPB Q8H-IV ELISSA Protocol Fentanyl 500 mcg/ Dextrose 100 mls @ 10 mls/hr 05/01/19 12:45 05/01/19 13:07 IVPB 50 mcg/hr TITR ELISSA 10 mls/hr Administration Protocol 50 MCG/HR Furosemide 100 mg/ Sodium 100 mls @ 10 mls/hr 05/01/19 13:52 Chloride IVPB ASDIR ELISSA Insulin Aspart 1 vial 04/30/19 11:00 05/01/19 11:16 Novolog Vial Sliding Scale - SQ 10 units ACHS ELISSA Administration Protocol Methylprednisolone Sodium Succinate 60 mg 04/30/19 12:30 05/01/19 10:15 Solu-Medrol - IVPUSH 60 mg Q8H-IV ELISSA Administration Metoprolol Tartrate 5 mg 04/30/19 08:57 05/01/19 10:50 Lopressor Injection - IVPUSH 5 mg Q4H PRN Administration TACHYCARDIA Metoprolol Tartrate 5 mg 05/01/19 15:00 Lopressor Injection - IVPUSH Q6H ELISSA Mupirocin 1 applic 04/30/19 10:00 05/01/19 10:00 Bactroban Ointment (For Decolonization) - NS 05/05/19 09:59 1 applic BID ELISSA Administration Pantoprazole Sodium 40 mg 05/01/19 10:00 05/01/19 10:13 Protonix Iv IVPUSH 40 mg DAILY ELISSA Administration ASSESSMENT/PLAN: Pt. is a 53 y.o. M w/ PMHx. of DM2, HFpEF(last EF: 45-50%), EMMY (non-adherent to CPAP) and atrial flutter presents with sudden onset of shortness of breath. Neuro: -Obtunded on presentation -intubated paralysed with vecuronium and sedated with propofol and fentanyl -no sedation holidays for now CV: -initially hypotensive in the 60s with map in the 40s then started on vasopressin -phenylephrine added then switched to levophed once central line place to maintain map >65 (04/30/19) -A-line place overnight. currently hypotensive in the 80-90s with map between 63-67 -currently on levophed and vasopressin for pressure support -Hr continues to be tachy -Hx of Aflutter -Hold Diltiazem given tenuous MAP and need to diuresis -Started Lopressor 5mg IV Q6H with holding parameters with 5mg PRN Q4h -Hold Eliquis, start Heparin gtt -BNP: 1634 -CVP monitoring showing 21. indicated fluid overload -Hx CHFpEF, DM, EMMY (non adherent to CPAP) -on lasix 10/h -Strict Is & Os, daily weights -f/u Echo -Cardio Dr Cruz on board, recs appreciated -EKG showing A/flutter, QTc: 461, no ST segment changes -f/u Rpt. EKG with Afib with RVR. managed as above - heparin drip for a flutter holding NOAC Pulm: -Acute Hypoxic and Hypercapneic Respiratory Failure -hx of EMMY with non compliance to CPAP at home -was initially on BIPAP on arrival then transitioned to intubation due to poor respiratory status and ABG with severe acidosis (Vent:VCV/AC, 80/325/12/36) -low tidal volume ventilation <6cc/kg/IBW -keep Pplat <30 -allow permissive hypercapnea -sats were in 80s despite sedation and vent settings yesterday -vecuronium bolus and maintenance to paralyse and provide full vent control and assess for improvement of sats -repeat ABG prior to vecuronium : pH 7.15, pCO2 86.8, pO2 76. ABG s/p 30-1hr of vecuronium: pH 7.19, pCO2 84.4, PO2 101 -last ABG : pH 7.31, pCO2 66.3, PO2 85.1 -pt currently pending transfer to [facility], requirements were to decrease PEEP to reduce transportation complication and to go up on FIO2 -CXR: volume overload, large heart, cannot r/o infiltrate -Bronchodilators :duonebs RQID, Albuterol PRN -solumedrol 60mg Q8h IV -CXR in the AM ID: -Temp 97-99F, WBC 7.4, white/yellow secretions on presentions, CXR without clear exclusion of infiltrate -LA 2.1 -> 1.2 - vanc trough 15.2 -started on vanc, zosyn, azithromycin yesterday. will continue same antibiotics for now. -blood culture prior to abx grew gram positive clusters. repeat blood cultures sent -f/u urine and sputum culture from yesterday -ID consulted and on board. recs appreciated Renal: -cr 2.2 k: 6.9 ->6.2-> 6.3-> 4.6 -no clear Hx of CKD -on lasix drip - received kayaxilate 30, amp of 5D50, 10 unit of insulin, amp of bicarb to assess with intracellular shift of potassium to improve levels. -currently at 4.9 -Nephrology Consult to Dr. Kelley appreciated -Hold Lisinopril -monitor GI: -NG tube -LFTs normal except for elevated ALP -monitor ENDO: -Hx DM -A1c 8.9 -BGMs ACHS -ISS ACHS Heme/Onc : -H/H 10.4/34.8 -> 10/33.5 -anemia work up low serum iron only FEN : -no IVF -monitor electrolytes -NPO Ppx: -Heparin gtt - protonix 40 daily LTD: central line left: ortiz: 04/30/19 A-line: 05/01/19 Dispo: pending transfer to ICU in [facility] Visit type - Emergency Visit Emergency Visit: Yes ED Registration Date: 04/30/19 Care time: The patient presented to the Emergency Department on the above date and was hospitalized for further evaluation of their emergent condition. - New Patient This patient is new to me today: No - Critical Care Critical Care patient: Yes Total Critical Care Time (in minutes): 36 Critical Care Statement: The care of this patient involved high complexity decision making to prevent further life threatening deterioration of the patient's condition and/or to evaluate & treat vital organ system(s) failure or risk of failure. ATTENDING PHYSICIAN STATEMENT I saw and evaluated the patient. I reviewed the resident's note and discussed the case with the resident. I agree with the resident's findings and plan as documented. SUBJECTIVE: OBJECTIVE: ASSESSMENT AND PLAN:
[2019-05-01 15:15] LABS: BLOOD UREA NITROGEN 63.9 mg/dL (7-18); CALCIUM 8.5 mg/dL (8.5-10.1); CREATININE 2.2 mg/dL (0.55-1.3); POTASSIUM 4.6 mmol/L (3.5-5.1)
--- NOTE | 2019-05-01 15:31 | PN ---
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 (short form) - Note 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: Laboratory Tests 05/01/19 14:30 Sodium 137 Potassium 4.6 Chloride 95 L Carbon Dioxide 34 H Anion Gap 7 L BUN 63.9 H Creatinine 2.2 H Labs reviewed potassium improved pt is diuresing, cont lasix no indication for hd at this point Problem List - Problems (1) Acute decompensated heart failure Code(s): I50.9 - HEART FAILURE, UNSPECIFIED (2) Atrial fibrillation and flutter Code(s): I48.91 - UNSPECIFIED ATRIAL FIBRILLATION; I48.92 - UNSPECIFIED ATRIAL FLUTTER (3) Hyperkalemia Code(s): E87.5 - HYPERKALEMIA (4) Pneumonia Code(s): J18.9 - PNEUMONIA, UNSPECIFIED ORGANISM (5) Sarcoidosis of other sites Code(s): D86.89 - SARCOIDOSIS OF OTHER SITES
[2019-05-01] MEDS ORDERED: VASOPRESSIN 20 UNITS/ML VIAL IV ONE (16:12)
[2019-05-01] MEDS: NOREPINEPHRINE BITARTRATE IV SCH (16:15)
[2019-05-01] MEDS: NORMAL SALINE IV SCH (16:15)
[2019-05-01] MEDS: DEXTROSE 5% IV SCH (16:15)
[2019-05-01] MEDS ORDERED: ACETAMINOPHEN 1000 MG/100 ML VIAL (NON FORMULARY) IVPB ONE (21:30)
[2019-05-01] MEDS: CHLORHEXIDINE GLUCONATE 4% CLEANSER FOR DECOLONIZATION TP SCH (21:57)
[2019-05-01] MEDS ORDERED: MORPHINE SULFATE 2 MG/ML VIAL IVPUSH ONE (22:28)
[2019-05-02] MEDS: methylPREDNISolone NA SUCC 40 MG/1 ML VIAL IVPUSH SCH ×3 (01:29→17:21)
[2019-05-02] MEDS: PIPERACILLIN/TAZOB 3.375 GM 3.375 GM in DEXTROSE 5%-WATER - 50 ML IVPB SCH ×3 (01:29→17:21)
[2019-05-02] MEDS: METOPROLOL TARTRATE 5 MG/5 ML VIAL IVPUSH SCH ×2 (02:26→09:47)
[2019-05-02] MEDS: INSULIN SLIDING SCALE (NOVOLOG) 1 VIAL SQ SCH ×3 (06:31→13:18)
[2019-05-02 06:45] LABS: HEMATOCRIT 32.5 % (35.4-49); HEMOGLOBIN 10.2 GM/dL (11.7-16.9); LYMPH % 1.7 % (8-40); MCH 24.6 pg (25.7-33.7); MCHC 31.3 g/dl (32.0-35.9); MEAN CELL VOLUME 78.5 fl (80-96); MEAN PLT VOLUME 8.1 fl (7.5-11.1); MONO % 4.5 % (3.8-10.2); NEUT % 93.8 % (42.8-82.8); PLATELET COUNT 311 K/MM3 (134-434); RBC 4.14 M/mm3 (4.00-5.60); RDW 19.8 % (11.9-15.9); WHITE BLOOD COUNT 8.4 K/mm3 (4.0-10.0)
[2019-05-02 07:15] LABS: BLOOD UREA NITROGEN 62.8 mg/dL (7-18); CREATININE 2.1 mg/dL (0.55-1.3); POTASSIUM 4.3 mmol/L (3.5-5.1)
[2019-05-02 07:16] LABS: ALBUMIN 2.6 g/dl (3.4-5.0); CALCIUM 8.8 mg/dL (8.5-10.1); MAGNESIUM 1.8 mg/dL (1.8-2.4); PHOSPHOROUS 5.4 mg/dL (2.5-4.9); TOT PROT 6.1 g/dl (6.4-8.2)
[2019-05-02] MEDS: ALBUTEROL SO4 2.5/IPRATROPIUM 0.5 INH SOL 3 ML VIAL.NEB. NEB SCH ×4 (08:58→20:39)
[2019-05-02] MEDS ORDERED: DEXTROSE 5%-WATER - 50 ML IVPB ONE ×2 (09:12→17:20)
[2019-05-02] MEDS ORDERED: PIPERACILLIN/TAZOBACTAM 3.375 GM VIAL IVPB ONE ×2 (09:12→17:19)
[2019-05-02] MEDS: PANTOPRAZOLE SODIUM 40 MG VIAL IVPUSH SCH (09:18)
[2019-05-02] MEDS: AZITHROMYCIN IVPB 500 MG/250 ML BAG IVPB SCH (09:21)
[2019-05-02] MEDS: VASOPRESSIN 50 UNITS in SODIUM CHLORIDE 97.5 ML IVPB SCH (09:50)
[2019-05-02] MEDS: MUPIROCIN 2% TOPICAL OINTMENT FOR DECOLONIZATION NS SCH ×2 (09:51→21:27)
[2019-05-02] MEDS: HEPARIN IV SCH (10:00)
[2019-05-02] MEDS: SODIUM CHLORIDE IV SCH (10:00)
[2019-05-02] MEDS ORDERED: VANCOMYCIN 1 GRAM (PRE-DOCKED) 1,000 MG/250 ML BAG IVPB ONE (11:15)
--- NOTE | 2019-05-02 11:15 | PN ---
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, Physician History of Present Illness: SEDATED ON VENTILATOR HYPOTENSIVE ON PRESSORS NO ACUTE DISTRESS AFEBRILE WBC WNL BC SCN X 3/4 BOTTLES GPR X1 REPEAT BC PENDING ECHO NO VEGETATIONS - Current Medication List Current Medications: Active Medications Albuterol/Ipratropium (Duoneb -) 1 amp NEB RQID ELISSA Last Admin: 05/02/19 08:58 Dose: 1 amp Chlorhexidine Gluconate (Hibiclens For Decolonization -) 1 applic TP HS ELISSA Last Admin: 05/01/19 21:57 Dose: 1 applic Heparin Sodium (Porcine) (Heparin -) 1,000 unit IVPUSH PRN PRN PRN Reason: Heparin Last Admin: 04/30/19 20:05 Dose: 1,000 unit Heparin Sodium (Porcine) (Heparin -) 5,000 unit IVPUSH PRN PRN PRN Reason: Heparin Last Admin: 05/02/19 10:07 Dose: 5,000 unit Vasopressin 50 units/ Sodium (Chloride) 100 mls @ 4 mls/hr IVPB ASDIR ELISSA; Protocol Last Titration: 05/02/19 10:10 Dose: 0 units/hr, 0 mls/hr Propofol (Diprivan -) 1,000,000 mcg in 100 mls @ 4.082 mls/hr IVPB TITR ELISSA; Protocol Last Titration: 05/02/19 09:17 Dose: 50 mcg/kg/min, 40.823 mls/hr Heparin Sodium (Porcine) 50, (000 unit/ Sodium Chloride) 500 mls @ 10 mls/hr IV TITR ELISSA; Protocol Last Admin: 05/02/19 10:00 Dose: 1,250 unit/hr, 12.5 mls/hr Vecuronium [place] 50 mg/ (Dextrose) 250 mls @ 40.82 mls/hr IVPB TITR ELISSA Last Admin: 05/01/19 12:57 Dose: 1 mcg/kg/min, 40.82 mls/hr Azithromycin (Zithromax 500mg Ivpb (Pre-Docked)) 500 mg in 250 mls @ 250 mls/ hr IVPB DAILY ELISSA Last Admin: 05/02/19 09:21 Dose: 250 mls/hr Norepinephrine Bitartrate 8, 000 mcg/ Dextrose/Sodium Chloride 500 mls @ 18.75 mls/hr IV TITR ELISSA; Protocol Last Admin: 05/01/19 16:15 Dose: Not Given Piperacillin Sod/Tazobactam (Sod 3.375 gm/ Dextrose) 50 mls @ 100 mls/hr IVPB Q8H-IV ELISSA; Protocol Last Admin: 05/02/19 09:14 Dose: 100 mls/hr Fentanyl 500 mcg/ Dextrose 100 mls @ 10 mls/hr IVPB TITR [facility]; Protocol Last Titration: 05/02/19 06:36 Dose: 75 mcg/hr, 15 mls/hr Furosemide 100 mg/ Sodium (Chloride) 100 mls @ 10 mls/hr IVPB ASDIR [facility] Last Admin: 05/01/19 11:00 Dose: 10 mls/hr Insulin Aspart (Novolog Vial Sliding Scale -) 1 vial SQ Q4HPO [facility]; Protocol Last Admin: 05/02/19 09:52 Dose: 10 units Methylprednisolone Sodium Succinate (Solu-Medrol -) 60 mg IVPUSH Q8H-IV [facility] Last Admin: 05/02/19 09:21 Dose: 60 mg Metoprolol Tartrate (Lopressor Injection -) 5 mg IVPUSH Q4H PRN PRN Reason: TACHYCARDIA Last Admin: 05/01/19 21:58 Dose: 5 mg Metoprolol Tartrate (Lopressor Injection -) 5 mg IVPUSH Q6H [facility] Last Admin: 05/02/19 09:47 Dose: 5 mg Mupirocin (Bactroban Ointment (For Decolonization) -) 1 applic NS BID [facility] Stop: 05/05/19 09:59 Last Admin: 05/02/19 09:51 Dose: 1 applic Pantoprazole Sodium (Protonix Iv) 40 mg IVPUSH DAILY [facility] Last Admin: 05/02/19 09:18 Dose: 40 mg - Objective Vital Signs: Vital Signs Temperature 97.9 F 05/02/19 04:00 Pulse Rate 97 H 05/02/19 10:10 Respiratory Rate 36 H 05/02/19 10:00 Blood Pressure 154/85 05/02/19 10:10 O2 Sat by Pulse Oximetry (%) 94 L 05/02/19 10:00 Constitutional: Yes: No Distress, Obese Eyes: Yes: Conjunctiva Clear Cardiovascular: Yes: Regular Rate and Rhythm, S1, S2 Respiratory: Yes: Mechanically Ventilated Gastrointestinal: Yes: Normal Bowel Sounds, Soft, Abdomen, Obese. No: Tenderness Edema: Yes Edema: LUE: 2+, RUE: 2+, LLE: 2+, RLE: 2+ Labs: CBC, BMP 05/02/19 05:30 05/02/19 05:30 INR, PTT INR 1.07 (0.83-1.09) 05/01/19 05:25 Assessment/Plan ACUTE RESP FAILURE CHF/ PNEUMONIA +BC SCN, GPR ? SIGNIFICANCE RENAL FAILURE AWAIT BC RESULTS REPEAT BC PENDING CONTINUE VENTILATORY/ HEMODYNAMIC SUPPORT CONTINUE ZOSYN/ ZITHROMAX REDOSE VANCOMYCIN CRITICAL CARE TIME 35MIN
[2019-05-02] MEDS: PROPOFOL 1,000,000 MCG/100 ML VIAL IVPB SCH (11:47)
[2019-05-02] MEDS ORDERED: fentaNYL CITRATE 250 MCG/5 ML VIAL ONE ×2 (11:51→20:15)
[2019-05-02] MEDS: FENTANYL INJECTION 500 MCG in DEXTROSE 5%-WATER - 90 ML IVPB SCH (12:01)
[2019-05-02 12:16] LABS: ANISOCYTOSIS 1+; MACROCYTOSIS 0; OVALOCYTE 1+; PLATELET ESTIMATE NORMAL; TARGET CELLS 1+; TEAR DROP CELLS 1+; TOXIC GRANULATION 1+
--- NOTE | 2019-05-02 12:17 | PN ---
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, Physician History of Present Illness: Remains sedated on ventilator with decreasing FIO2 requirements and weaned off vasopressin, rate-controlled aflutter, undergoing diuresis. - Current Medication List Current Medications: Active Medications Albuterol/Ipratropium (Duoneb -) 1 amp NEB RQID ELISSA Last Admin: 05/02/19 11:50 Dose: 1 amp Chlorhexidine Gluconate (Hibiclens For Decolonization -) 1 applic TP HS ELISSA Last Admin: 05/01/19 21:57 Dose: 1 applic Heparin Sodium (Porcine) (Heparin -) 1,000 unit IVPUSH PRN PRN PRN Reason: Heparin Last Admin: 04/30/19 20:05 Dose: 1,000 unit Heparin Sodium (Porcine) (Heparin -) 5,000 unit IVPUSH PRN PRN PRN Reason: Heparin Last Admin: 05/02/19 10:07 Dose: 5,000 unit Vasopressin 50 units/ Sodium (Chloride) 100 mls @ 4 mls/hr IVPB ASDIR ELISSA; Protocol Last Titration: 05/02/19 11:10 Dose: 1 units/hr, 2 mls/hr Propofol (Diprivan -) 1,000,000 mcg in 100 mls @ 4.082 mls/hr IVPB TITR ELISSA; Protocol Last Admin: 05/02/19 11:47 Dose: 50 mcg/kg/min, 40.823 mls/hr Heparin Sodium (Porcine) 50, (000 unit/ Sodium Chloride) 500 mls @ 10 mls/hr IV TITR ELISSA; Protocol Last Admin: 05/02/19 10:00 Dose: 1,250 unit/hr, 12.5 mls/hr Vecuronium [place] 50 mg/ (Dextrose) 250 mls @ 40.82 mls/hr IVPB TITR ELISSA Last Admin: 05/01/19 12:57 Dose: 1 mcg/kg/min, 40.82 mls/hr Azithromycin (Zithromax 500mg Ivpb (Pre-Docked)) 500 mg in 250 mls @ 250 mls/ hr IVPB DAILY ELISSA Last Admin: 05/02/19 09:21 Dose: 250 mls/hr Norepinephrine Bitartrate 8, 000 mcg/ Dextrose/Sodium Chloride 500 mls @ 18.75 mls/hr IV TITR ELISSA; Protocol Last Admin: 05/01/19 16:15 Dose: Not Given Piperacillin Sod/Tazobactam (Sod 3.375 gm/ Dextrose) 50 mls @ 100 mls/hr IVPB Q8H-IV ELISSA; Protocol Last Admin: 05/02/19 09:14 Dose: 100 mls/hr Fentanyl 500 mcg/ Dextrose 100 mls @ 10 mls/hr IVPB TITR [facility]; Protocol Last Admin: 05/02/19 12:01 Dose: 75 mcg/hr, 15 mls/hr Furosemide 100 mg/ Sodium (Chloride) 100 mls @ 10 mls/hr IVPB ASDIR [facility] Last Admin: 05/01/19 11:00 Dose: 10 mls/hr Vancomycin HCl (Vancomycin (Pre-Docked)) 1,000 mg in 250 mls @ 166.667 mls/hr IVPB ONCE ONE; Protocol Stop: 05/02/19 12:44 Last Admin: 05/02/19 11:55 Dose: 166.667 mls/hr Insulin Human Regular 100 (units/ Sodium Chloride) 100 mls @ 14.34 mls/hr IVPB TITR [facility]; Protocol Insulin Aspart (Novolog Vial Sliding Scale -) 1 vial SQ Q4HPO [facility]; Protocol Last Admin: 05/02/19 09:52 Dose: 10 units Methylprednisolone Sodium Succinate (Solu-Medrol -) 60 mg IVPUSH Q8H-IV [facility] Last Admin: 05/02/19 09:21 Dose: 60 mg Metoprolol Tartrate (Lopressor Injection -) 5 mg IVPUSH Q4H PRN PRN Reason: TACHYCARDIA Last Admin: 05/01/19 21:58 Dose: 5 mg Metoprolol Tartrate (Lopressor Injection -) 5 mg IVPUSH Q6H [facility] Last Admin: 05/02/19 09:47 Dose: 5 mg Mupirocin (Bactroban Ointment (For Decolonization) -) 1 applic NS BID [facility] Stop: 05/05/19 09:59 Last Admin: 05/02/19 09:51 Dose: 1 applic Pantoprazole Sodium (Protonix Iv) 40 mg IVPUSH DAILY [facility] Last Admin: 05/02/19 09:18 Dose: 40 mg - Objective Vital Signs: Vital Signs Temperature 98 F 05/02/19 09:00 Pulse Rate 110 H 05/02/19 12:00 Respiratory Rate 36 H 05/02/19 12:00 Blood Pressure 144/82 05/02/19 12:00 O2 Sat by Pulse Oximetry (%) 94 L 05/02/19 10:00 Constitutional: Yes: No Distress Neck: Yes: Supple Cardiovascular: Yes: Tachycardia, Pulse Irregular Respiratory: Yes: Intubated, Mechanically Ventilated, Rhonchi Gastrointestinal: Yes: Normal Bowel Sounds, Soft, Abdomen, Obese Edema: No Labs: CBC, BMP 05/02/19 05:30 05/02/19 05:30 INR, PTT INR 1.07 (0.83-1.09) 05/01/19 05:25 - ....Imaging Chest X-ray: Report Reviewed (CHF) EKG: Report Reviewed (Tele: Rate-controlled aflutter) Problem List - Problems (1) Pneumonia Code(s): J18.9 - PNEUMONIA, UNSPECIFIED ORGANISM Qualifiers: Pneumonia type: due to unspecified organism (2) Septic shock Code(s): A41.9 - SEPSIS, UNSPECIFIED ORGANISM; R65.21 - SEVERE SEPSIS WITH SEPTIC SHOCK (3) Acute hypercapnic respiratory failure due to obstructive sleep apnea Code(s): J96.02 - ACUTE RESPIRATORY FAILURE WITH HYPERCAPNIA; G47.33 - OBSTRUCTIVE SLEEP APNEA (ADULT) (PEDIATRIC) (4) Acute decompensated heart failure Code(s): I50.9 - HEART FAILURE, UNSPECIFIED (5) Acute renal failure Code(s): N17.9 - ACUTE KIDNEY FAILURE, UNSPECIFIED Qualifiers: Acute renal failure type: unspecified Qualified Code(s): N17.9 - Acute kidney failure, unspecified (6) Hyperkalemia Code(s): E87.5 - HYPERKALEMIA (7) Atrial fibrillation and flutter Code(s): I48.91 - UNSPECIFIED ATRIAL FIBRILLATION; I48.92 - UNSPECIFIED ATRIAL FLUTTER (8) Sarcoidosis of other sites Code(s): D86.89 - SARCOIDOSIS OF OTHER SITES (9) Type 2 diabetes mellitus Code(s): E11.9 - TYPE 2 DIABETES MELLITUS WITHOUT COMPLICATIONS Qualifiers: Diabetes mellitus exterminator helper insulin use: without exterminator helper use Diabetes mellitus complication detail: with chronic kidney disease Chronic kidney disease stage: stage 2 (mild) Assessment/Plan 05/01/2019 Normal LV and RV size and fxn, tr TR 03/14/2019 Normal LV size and fxn, no thrombus ADEEL, mild-mod dilated and HK RV, tr MR, mild-mod TR, tr CA, trace pericardial effusion 1. Acute hypoxic and hypercapneic respiratory failure on mechanical ventilation 2. Pneumonia, septic shock, Gram Positive Bacteremia, r/o ARDS 3. Sarcoidosis confirmed by skin biopsy, r/o cardiac involvement 2. OSAS nonadherent to cpap 3. Paroxysmal Aflutter/Afib with RVR 4. Acute on chronic diastolic heart failure 5. Acute on CKD with hyperkalemia 6. Type 2 DM 7. Anemia P:1. Empiric abx f/u C&S, flu swab, IV steroids with GI protection, BD 2. Weaned off vasopressin gtt 3. Vent management per ABG, ARDS protocol and paralyzed 4. Continue rate-control with oral and IV Lopressor as needed, heparin gtt with eliquis held for now 5. Aggressive IV diuresis on Lasix gtt with monitor diuretic response, renal fxn and electrolytes 6. Resume lisinopril 10 qd once renal function and hyperkalemia stabilizes 7. Thank you for consultative opportunity, he f/u with Dr. Genaro Davila ( cardiology at [place]), cardiac PET or MRI to exclude cardiac involvement in sarcoidosis as outpatient
--- NOTE | 2019-05-02 13:11 | PN ---
Teaching Attending Note Name of Resident: Ju Lopez ATTENDING PHYSICIAN STATEMENT I saw and evaluated the patient. I reviewed the resident's note and discussed the case with the resident. I agree with the resident's findings and plan as documented. SUBJECTIVE: Patient seen and examined in the ICU. Remains intubated, sedated, paralyzed. AC Mode of vent, 80% FiO2 / PEEP 12. 2 units Vasopressin for hemodynamic support. OBJECTIVE: Intake & Output 04/29/19 04/30/19 05/01/19 05/02/19 23:59 23:59 23:59 23:59 Intake Total 1513.6 2096 1144.5 Output Total 2630 4650 4800 Balance -1116.4 -2554 -3655.5 Weight 300 lb 312 lb 12.8 oz 316 lb 4.8 oz Last Vital Signs Temp Pulse Resp BP Pulse Ox 98 F 110 H 36 H 144/82 96 05/02/19 09:00 05/02/19 12:00 05/02/19 12:25 05/02/19 12:00 05/02/19 10:00 Active Medications Albuterol/Ipratropium (Duoneb -) 1 amp NEB RQID ELISSA Last Admin: 05/02/19 11:50 Dose: 1 amp Chlorhexidine Gluconate (Hibiclens For Decolonization -) 1 applic TP HS [facility] Last Admin: 05/01/19 21:57 Dose: 1 applic Heparin Sodium (Porcine) (Heparin -) 1,000 unit IVPUSH PRN PRN PRN Reason: Heparin Last Admin: 04/30/19 20:05 Dose: 1,000 unit Heparin Sodium (Porcine) (Heparin -) 5,000 unit IVPUSH PRN PRN PRN Reason: Heparin Last Admin: 05/02/19 10:07 Dose: 5,000 unit Vasopressin 50 units/ Sodium (Chloride) 100 mls @ 4 mls/hr IVPB ASDIR ELISSA; Protocol Last Titration: 05/02/19 11:10 Dose: 1 units/hr, 2 mls/hr Propofol (Diprivan -) 1,000,000 mcg in 100 mls @ 4.082 mls/hr IVPB TITR ELISSA; Protocol Last Admin: 05/02/19 11:47 Dose: 50 mcg/kg/min, 40.823 mls/hr Heparin Sodium (Porcine) 50, (000 unit/ Sodium Chloride) 500 mls @ 10 mls/hr IV TITR ELISSA; Protocol Last Admin: 05/02/19 10:00 Dose: 1,250 unit/hr, 12.5 mls/hr Vecuronium [place] 50 mg/ (Dextrose) 250 mls @ 40.82 mls/hr IVPB TITR ELISSA Last Admin: 05/01/19 12:57 Dose: 1 mcg/kg/min, 40.82 mls/hr Azithromycin (Zithromax 500mg Ivpb (Pre-Docked)) 500 mg in 250 mls @ 250 mls/ hr IVPB DAILY ELISSA Last Admin: 05/02/19 09:21 Dose: 250 mls/hr Norepinephrine Bitartrate 8, 000 mcg/ Dextrose/Sodium Chloride 500 mls @ 18.75 mls/hr IV TITR ELISSA; Protocol Last Admin: 05/01/19 16:15 Dose: Not Given Piperacillin Sod/Tazobactam (Sod 3.375 gm/ Dextrose) 50 mls @ 100 mls/hr IVPB Q8H-IV ELISSA; Protocol Last Admin: 05/02/19 09:14 Dose: 100 mls/hr Fentanyl 500 mcg/ Dextrose 100 mls @ 10 mls/hr IVPB TITR ELISSA; Protocol Last Admin: 05/02/19 12:01 Dose: 75 mcg/hr, 15 mls/hr Furosemide 100 mg/ Sodium (Chloride) 100 mls @ 10 mls/hr IVPB ASDIR ELISSA Last Admin: 05/01/19 11:00 Dose: 10 mls/hr Insulin Human Regular 100 (units/ Sodium Chloride) 100 mls @ 14.34 mls/hr IVPB TITR ELISSA; Protocol Insulin Aspart (Novolog Vial Sliding Scale -) 1 vial SQ Q4HPO [facility]ISSA; Protocol Last Admin: 05/02/19 09:52 Dose: 10 units Methylprednisolone Sodium Succinate (Solu-Medrol -) 60 mg IVPUSH Q8H-IV ELISSA Last Admin: 05/02/19 09:21 Dose: 60 mg Metoprolol Tartrate (Lopressor Injection -) 5 mg IVPUSH Q4H PRN PRN Reason: TACHYCARDIA Last Admin: 05/01/19 21:58 Dose: 5 mg Metoprolol Tartrate (Lopressor Injection -) 5 mg IVPUSH Q6H [facility]ISSA Last Admin: 05/02/19 09:47 Dose: 5 mg Mupirocin (Bactroban Ointment (For Decolonization) -) 1 applic NS BID ELISSA Stop: 05/05/19 09:59 Last Admin: 05/02/19 09:51 Dose: 1 applic Pantoprazole Sodium (Protonix Iv) 40 mg IVPUSH DAILY [facility] Last Admin: 05/02/19 09:18 Dose: 40 mg Gen: intubated, sedated Heart: tachycardic Lung: bilateral rhonchi Abd: soft, nontender Ext:+ edema Laboratory Results - last 24 hr 05/01/19 05/01/19 05/01/19 05:25 14:30 16:43 WBC RBC Hgb Hct MCV MCH MCHC RDW Plt Count MPV Absolute Neuts (auto) Neutrophils % Neutrophils % (Manual) 97.0 H Band Neutrophils % 0.0 Lymphocytes % Lymphocytes % (Manual) 2.0 L Monocytes % Monocytes % (Manual) 0 L Eosinophils % Eosinophils % (Manual) 0.0 Basophils % Basophils % (Manual) 0.0 Myelocytes % (Man) 0 Promyelocytes % (Man) 0 Blast Cells % (Manual) 0 Nucleated RBC % 0 Metamyelocytes 0 Hypochromia 0 Platelet Estimate Normal Polychromasia 2+ Poikilocytosis 0 Basophilic Stippling 1+ Anisocytosis 2+ Microcytosis 2+ Macrocytosis 2+ PTT (Actin FS) Sodium 137 Potassium 4.6 Chloride 95 L Carbon Dioxide 34 H Anion Gap 7 L BUN 63.9 H Creatinine 2.2 H Est GFR (CKD-EPI)AfAm 38.76 Est GFR (CKD-EPI)NonAf 33.44 POC Glucometer 389 Random Glucose 391 H Calcium 8.5 Phosphorus Magnesium Total Bilirubin AST ALT Alkaline Phosphatase Total Protein Albumin 05/01/19 05/02/19 05/02/19 23:05 05:30 05:30 WBC 8.4 RBC 4.14 Hgb 10.2 L Hct 32.5 L MCV 78.5 L MCH 24.6 L MCHC 31.3 L RDW 19.8 H Plt Count 311 MPV 8.1 Absolute Neuts (auto) 7.9 Neutrophils % 93.8 H Neutrophils % (Manual) Band Neutrophils % Lymphocytes % 1.7 L Lymphocytes % (Manual) Monocytes % 4.5 D Monocytes % (Manual) Eosinophils % 0.0 Eosinophils % (Manual) Basophils % 0.0 Basophils % (Manual) Myelocytes % (Man) Promyelocytes % (Man) Blast Cells % (Manual) Nucleated RBC % 0 Metamyelocytes Hypochromia Platelet Estimate Polychromasia Poikilocytosis Basophilic Stippling Anisocytosis Microcytosis Macrocytosis PTT (Actin FS) 33.9 Sodium Potassium Chloride Carbon Dioxide Anion Gap BUN Creatinine Est GFR (CKD-EPI)AfAm Est GFR (CKD-EPI)NonAf POC Glucometer 310 Random Glucose Calcium Phosphorus Magnesium Total Bilirubin AST ALT Alkaline Phosphatase Total Protein Albumin 05/02/19 05/02/19 05/02/19 05:30 05:42 09:40 WBC RBC Hgb Hct MCV MCH MCHC RDW Plt Count MPV Absolute Neuts (auto) Neutrophils % Neutrophils % (Manual) Band Neutrophils % Lymphocytes % Lymphocytes % (Manual) Monocytes % Monocytes % (Manual) Eosinophils % Eosinophils % (Manual) Basophils % Basophils % (Manual) Myelocytes % (Man) Promyelocytes % (Man) Blast Cells % (Manual) Nucleated RBC % Metamyelocytes Hypochromia Platelet Estimate Polychromasia Poikilocytosis Basophilic Stippling Anisocytosis Microcytosis Macrocytosis PTT (Actin FS) Sodium 134 L Potassium 4.3 Chloride 90 L Carbon Dioxide 37 H Anion Gap 8 BUN 62.8 H Creatinine 2.1 H Est GFR (CKD-EPI)AfAm 41.00 Est GFR (CKD-EPI)NonAf 35.38 POC Glucometer 403 377 Random Glucose 410 H* Calcium 8.8 Phosphorus 5.4 H Magnesium 1.8 Total Bilirubin 1.0 AST 10 L ALT 32 Alkaline Phosphatase 108 Total Protein 6.1 L Albumin 2.6 L ASSESSMENT AND PLAN: Acute Hypoxic and Hypercapneic Respiratory Failure Pneumonia Gram Positive Bacteremia Septic Shock Volume Overload r/o ARDS Lactic Acidosis Hyperkalemia Acute Kidney Injury Atrial Flutter with RVR HTN DM Anemia - Wean FiO2 and PEEP as tolerated / Lung protective ventilation - f/u cultures - Wean pressors as tolerated - keep Pplat <30 - continue paralysis for vent synchrony - Lasix - Monitor urine output, creatinine - Monitor lytes - Medrol - Inhaled bronchodilators - Rate control - Continue anticoagulation - Continue volume assist control - Poor candidate for weaning at this time - DVT/GI prophylaxis - continue ICU monitoring - prognosis guarded Dr Maya Critical care time spent in reviewing chart, evaluating patient and formulating plan 36 min
--- NOTE | 2019-05-02 13:24 | PN ---
Physical Exam: SUBJECTIVE: Patient seen and examined. Patient seen and examined. Remains intubated, sedated, paralyzed. Adequate urine output. Heart rates rapid . Blood cultures growing Staph coag negative and GPR. stopped levo. on vaso but trying to wean off. pending transfer to [facility]. OBJECTIVE: Vital Signs Period Temp Pulse Resp BP Sys/[place] Pulse Ox Last 24 Hr 97.7 F-98.9 F 89-138 28-39 96-163/50-89 94-96 GENERAL: INTUBATED. HEAD: Normal with no signs of trauma. LUNGS: diffuse rales/rhonchi HEART: irregular rate and rhythm and tachy, S1, S2 without murmur, rub or gallop. ABDOMEN: Soft, nontender, distended and obese EXTREMITIES: 2+ pulses, warm, well-perfused,1+ edema. NEUROLOGICAL: intubated and sedated SKIN: Warm, dry, lesion on middle finger on right hand Laboratory Results - last 24 hr 05/01/19 05/01/19 05/01/19 05:25 14:30 16:43 WBC RBC Hgb Hct MCV MCH MCHC RDW Plt Count MPV Absolute Neuts (auto) Neutrophils % Neutrophils % (Manual) 97.0 H Band Neutrophils % 0.0 Lymphocytes % Lymphocytes % (Manual) 2.0 L Monocytes % Monocytes % (Manual) 0 L Eosinophils % Eosinophils % (Manual) 0.0 Basophils % Basophils % (Manual) 0.0 Myelocytes % (Man) 0 Promyelocytes % (Man) 0 Blast Cells % (Manual) 0 Nucleated RBC % 0 Metamyelocytes 0 Hypochromia 0 Platelet Estimate Normal Polychromasia 2+ Poikilocytosis 0 Basophilic Stippling 1+ Anisocytosis 2+ Microcytosis 2+ Macrocytosis 2+ PTT (Actin FS) Sodium 137 Potassium 4.6 Chloride 95 L Carbon Dioxide 34 H Anion Gap 7 L BUN 63.9 H Creatinine 2.2 H Est GFR (CKD-EPI)AfAm 38.76 Est GFR (CKD-EPI)NonAf 33.44 POC Glucometer 389 Random Glucose 391 H Calcium 8.5 Phosphorus Magnesium Total Bilirubin AST ALT Alkaline Phosphatase Total Protein Albumin 05/01/19 05/02/19 05/02/19 23:05 05:30 05:30 WBC 8.4 RBC 4.14 Hgb 10.2 L Hct 32.5 L MCV 78.5 L MCH 24.6 L MCHC 31.3 L RDW 19.8 H Plt Count 311 MPV 8.1 Absolute Neuts (auto) 7.9 Neutrophils % 93.8 H Neutrophils % (Manual) Band Neutrophils % Lymphocytes % 1.7 L Lymphocytes % (Manual) Monocytes % 4.5 D Monocytes % (Manual) Eosinophils % 0.0 Eosinophils % (Manual) Basophils % 0.0 Basophils % (Manual) Myelocytes % (Man) Promyelocytes % (Man) Blast Cells % (Manual) Nucleated RBC % 0 Metamyelocytes Hypochromia Platelet Estimate Polychromasia Poikilocytosis Basophilic Stippling Anisocytosis Microcytosis Macrocytosis PTT (Actin FS) 33.9 Sodium Potassium Chloride Carbon Dioxide Anion Gap BUN Creatinine Est GFR (CKD-EPI)AfAm Est GFR (CKD-EPI)NonAf POC Glucometer 310 Random Glucose Calcium Phosphorus Magnesium Total Bilirubin AST ALT Alkaline Phosphatase Total Protein Albumin 05/02/19 05/02/19 05/02/19 05:30 05:42 09:40 WBC RBC Hgb Hct MCV MCH MCHC RDW Plt Count MPV Absolute Neuts (auto) Neutrophils % Neutrophils % (Manual) Band Neutrophils % Lymphocytes % Lymphocytes % (Manual) Monocytes % Monocytes % (Manual) Eosinophils % Eosinophils % (Manual) Basophils % Basophils % (Manual) Myelocytes % (Man) Promyelocytes % (Man) Blast Cells % (Manual) Nucleated RBC % Metamyelocytes Hypochromia Platelet Estimate Polychromasia Poikilocytosis Basophilic Stippling Anisocytosis Microcytosis Macrocytosis PTT (Actin FS) Sodium 134 L Potassium 4.3 Chloride 90 L Carbon Dioxide 37 H Anion Gap 8 BUN 62.8 H Creatinine 2.1 H Est GFR (CKD-EPI)AfAm 41.00 Est GFR (CKD-EPI)NonAf 35.38 POC Glucometer 403 377 Random Glucose 410 H* Calcium 8.8 Phosphorus 5.4 H Magnesium 1.8 Total Bilirubin 1.0 AST 10 L ALT 32 Alkaline Phosphatase 108 Total Protein 6.1 L Albumin 2.6 L 05/02/19 13:14 WBC RBC Hgb Hct MCV MCH MCHC RDW Plt Count MPV Absolute Neuts (auto) Neutrophils % Neutrophils % (Manual) Band Neutrophils % Lymphocytes % Lymphocytes % (Manual) Monocytes % Monocytes % (Manual) Eosinophils % Eosinophils % (Manual) Basophils % Basophils % (Manual) Myelocytes % (Man) Promyelocytes % (Man) Blast Cells % (Manual) Nucleated RBC % Metamyelocytes Hypochromia Platelet Estimate Polychromasia Poikilocytosis Basophilic Stippling Anisocytosis Microcytosis Macrocytosis PTT (Actin FS) Sodium Potassium Chloride Carbon Dioxide Anion Gap BUN Creatinine Est GFR (CKD-EPI)AfAm Est GFR (CKD-EPI)NonAf POC Glucometer 367 Random Glucose Calcium Phosphorus Magnesium Total Bilirubin AST ALT Alkaline Phosphatase Total Protein Albumin Active Medications Generic Name Dose Route Start Last Admin Trade Name Freq PRN Reason Stop Dose Admin Albuterol/Ipratropium 1 amp 04/30/19 16:00 05/02/19 11:50 Duoneb - NEB 1 amp RQID ELISSA Administration Chlorhexidine Gluconate 1 applic 04/30/19 22:00 05/01/19 21:57 Hibiclens For Decolonization - TP 1 applic HS ELISSA Administration Heparin Sodium (Porcine) 1,000 unit 04/30/19 10:40 04/30/19 20:05 Heparin - IVPUSH 1,000 unit PRN PRN Administration Heparin Heparin Sodium (Porcine) 5,000 unit 04/30/19 10:40 05/02/19 10:07 Heparin - IVPUSH 5,000 unit PRN PRN Administration Heparin Vasopressin 50 units/ Sodium 100 mls @ 4 mls/hr 04/30/19 09:30 05/02/19 11:10 Chloride IVPB 1 units/hr ASDIR ELISSA 2 mls/hr Titration Protocol 2 UNITS/HR Propofol 1,000,000 mcg in 100 mls @ 4.082 mls/hr 04/30/19 10:15 05/02/19 11: 47 Diprivan - IVPB 50 mcg/kg/min TITR ELISSA 40.823 mls/hr Administration Protocol 5 MCG/KG/MIN Heparin Sodium (Porcine) 50, 500 mls @ 10 mls/hr 04/30/19 10:45 05/02/19 10: 00 000 unit/ Sodium Chloride IV 1,250 unit/hr TITR ELISSA 12.5 mls/hr Administration Protocol 1,000 UNIT/HR Vecuronium [place] 50 mg/ 250 mls @ 40.82 mls/hr 04/30/19 12:15 05/01/19 12: 57 Dextrose IVPB 1 mcg/kg/min TITR ELISSA 40.82 mls/hr Administration 1 MCG/KG/MIN Azithromycin 500 mg in 250 mls @ 250 mls/hr 04/30/19 12:30 05/02/19 09:21 Zithromax 500mg Ivpb (Pre-Docked) IVPB 250 mls/hr DAILY ELISSA Administration Norepinephrine Bitartrate 8, 500 mls @ 18.75 mls/hr 04/30/19 14:00 05/01/19 16:15 000 mcg/ Dextrose/Sodium IV Not Given Chloride TITR ELISSA Protocol 5 MCG/MIN Piperacillin Sod/Tazobactam 50 mls @ 100 mls/hr 05/01/19 18:00 05/02/19 09:14 Sod 3.375 gm/ Dextrose IVPB 100 mls/hr Q8H-IV ELISSA Administration Protocol Fentanyl 500 mcg/ Dextrose 100 mls @ 10 mls/hr 05/01/19 12:45 05/02/19 12:01 IVPB 75 mcg/hr TITR ELISSA 15 mls/hr Administration Protocol 50 MCG/HR Furosemide 100 mg/ Sodium 100 mls @ 10 mls/hr 05/01/19 13:52 05/01/19 11:00 Chloride IVPB 10 mls/hr ASDIR ELISSA Administration Insulin Human Regular 100 100 mls @ 14.34 mls/hr 05/02/19 12:00 units/ Sodium Chloride IVPB TITR ELISSA Protocol 0.1 UNITS/KG/HR Insulin Aspart 1 vial 05/02/19 10:00 05/02/19 13:18 Novolog Vial Sliding Scale - SQ 10 units Q4HPO ELISSA Administration Protocol Methylprednisolone Sodium Succinate 60 mg 04/30/19 12:30 05/02/19 09:21 Solu-Medrol - IVPUSH 60 mg Q8H-IV ELISSA Administration Metoprolol Tartrate 5 mg 04/30/19 08:57 05/01/19 21:58 Lopressor Injection - IVPUSH 5 mg Q4H PRN Administration TACHYCARDIA Metoprolol Tartrate 5 mg 05/01/19 15:00 05/02/19 09:47 Lopressor Injection - IVPUSH 5 mg Q6H ELISSA Administration Mupirocin 1 applic 04/30/19 10:00 05/02/19 09:51 Bactroban Ointment (For Decolonization) - NS 05/05/19 09:59 1 applic BID ELISSA Administration Pantoprazole Sodium 40 mg 05/01/19 10:00 05/02/19 09:18 Protonix Iv IVPUSH 40 mg DAILY ELISSA Administration ASSESSMENT/PLAN: Pt. is a 53 y.o. M w/ PMHx. of DM2, HFpEF(last EF: 45-50%), EMMY (non-adherent to CPAP) and atrial flutter presents with sudden onset of shortness of breath. Neuro: -Obtunded on presentation -intubated paralysed with vecuronium and sedated with propofol (75) and fentanyl (maxed out) -no sedation holidays for now CV: -initially hypotensive in the 60s with map in the 40s then started on vasopressin -phenylephrine added then switched to levophed once central line place to maintain map >65 (04/30/19) -A-line place overnight. hypotensive in the 80-90s with map between 63-67 -currently normotensive with tachycardia -D/C/ed levophed and vasopressin for pressure support. WILL try to wean off. -Hr continues to be tachy -Hx of Aflutter -Hold Diltiazem given tenuous MAP and need to diuresis -D/C/ed Lopressor 5mg IV Q6H and started on metoprolol 25mg BID with lopressor 5mg Q4h PRN -Hold Eliquis, start Heparin gtt -BNP: 1634 -CVP monitoring showing 16-20. indicated fluid overload but improving -Hx CHFpEF, DM, EMMY (non adherent to CPAP) -on lasix drip 10/h. - urine output over >3000 since overnight. - cont Strict Is & Os, daily weights - Echo difficult assessment. unremarkable -Cardio Dr Cruz on board, recs appreciated Pulm: -Acute Hypoxic and Hypercapneic Respiratory Failure -hx of EMMY with non compliance to CPAP at home -was initially on BIPAP on arrival then transitioned to intubation due to poor respiratory status and ABG with severe acidosis (Vent:VCV/AC, 80/325/12/36) -low tidal volume ventilation <6cc/kg/IBW -keep Pplat <30 -allow permissive hypercapnea -sats were in 80s despite sedation and vent settings yesterday -vecuronium bolus and maintenance to paralyse and provide full vent control -repeat ABG prior to vecuronium : pH 7.15, pCO2 86.8, pO2 76. ABG s/p 30-1hr of vecuronium: pH 7.19, pCO2 84.4, PO2 101 - ABG today pending -pt currently pending transfer to [facility], requirements were to decrease PEEP to reduce transportation complication and to go up on FIO2 -CXR: volume overload, large heart, cannot r/o infiltrate but improved from yesterday -Bronchodilators :duonebs RQID, Albuterol PRN -solumedrol 40mg Q8h IV -CXR in the AM ID: -Temp 97-99F, WBC 7.4, white/yellow secretions on presentions, CXR without clear exclusion of infiltrate -LA 2.1 -> 1.2 - vanc trough 15.2 -on vanc redosed, zosyn, azithromycin . will continue same antibiotics for now. -blood culture prior to abx grew gram positive clusters. repeat blood cultures negative for 1 day. first blood culture most likely contaminant - urine culture neg -ID consulted and on board. recs appreciated Renal: -cr 2.2 -> 2.1 k: 6.9 ->6.2-> 6.3-> 4.6-> 4.3 -no clear Hx of CKD -on lasix drip - received kayaxilate 30, amp of 5D50, 10 unit of insulin, amp of bicarb to assess with intracellular shift of potassium to improve levels. -currently at 4.9 -Nephrology Consult to Dr. Kelley appreciated -Hold Lisinopril -monitor GI: -NG tube - will start feed with hypocaloric with promote once rates are provided by [employer] -LFTs normal -monitor ENDO: -blood glucose running high around 400 as pt is on alot of D5 containing drip -Hx DM -A1c 8.9 -BGMs Q1h for the first 2 BG since drip then Q2 afterwards -ISS ACHS Heme/Onc : -H/H 10.4/34.8 -> 10/33.5 -> 10.2/32.5 -stable -monitor -anemia work up low serum iron only FEN : -no IVF -monitor electrolytes -NPO Ppx: -Heparin gtt -protonix 40 daily LTD: central line left: ortiz: 04/30/19 A-line: 05/01/19 Dispo: pending transfer to ICU in [facility] [place] Visit type - Emergency Visit Emergency Visit: Yes ED Registration Date: 04/30/19 Care time: The patient presented to the Emergency Department on the above date and was hospitalized for further evaluation of their emergent condition. - New Patient This patient is new to me today: No - Critical Care Critical Care patient: Yes Total Critical Care Time (in minutes): 36 Critical Care Statement: The care of this patient involved high complexity decision making to prevent further life threatening deterioration of the patient 's condition and/or to evaluate & treat vital organ system(s) failure or risk of failure. ATTENDING PHYSICIAN STATEMENT I saw and evaluated the patient. I reviewed the resident's note and discussed the case with the resident. I agree with the resident's findings and plan as documented. SUBJECTIVE: OBJECTIVE: ASSESSMENT AND PLAN:
[2019-05-02] MEDS ORDERED: FUROSEMIDE 40 MG/4 ML INJECTABLE VIAL IVPUSH ONE (13:38)
[2019-05-02] MEDS ORDERED: PROPOFOL 1,000,000 MCG/100 ML VIAL ONE (13:57)
[2019-05-02] MEDS: METOPROLOL TARTRATE 25 MG TABLET (FP) PO SCH ×2 (14:14→21:26)
--- NOTE | 2019-05-02 14:25 | PN ---
Physical Exam: SUBJECTIVE: Patient seen and examined. Intubated and sedated. Patient unable to be transferred due to insurance complications. OBJECTIVE: Vital Signs Period Temp Pulse Resp BP Sys/[place] Pulse Ox Last 24 Hr 97.7 F-98.9 F 89-138 28-39 96-163/50-89 94-96 GENERAL: intubated, sedated HEAD: Normal with no signs of trauma. EYES: PERRL ENT: MMM NECK: Trachea midline, supple, Left IJ in place LUNGS: Mechanically ventilated, coarse breath sounds bilaterally, tachypnic HEART: tachycardic ABDOMEN: obese, soft, nontender, decreased bowel sounds EXTREMITIES: 2+ pulses, warm, well-perfused. 1+ non pitting edema bilateral lower extremities NEUROLOGICAL: poor gag reflex, normal muscle tone SKIN: Warm, dry, normal turgor Laboratory Results - last 24 hr 05/01/19 05/01/19 05/01/19 14:30 16:43 23:05 WBC RBC Hgb Hct MCV MCH MCHC RDW Plt Count MPV Absolute Neuts (auto) Neutrophils % Neutrophils % (Manual) Band Neutrophils % Lymphocytes % Lymphocytes % (Manual) Monocytes % Monocytes % (Manual) Eosinophils % Eosinophils % (Manual) Basophils % Basophils % (Manual) Myelocytes % (Man) Promyelocytes % (Man) Blast Cells % (Manual) Nucleated RBC % Metamyelocytes Hypochromia Toxic Granulation Platelet Estimate Platelet Comment Polychromasia Poikilocytosis Anisocytosis Microcytosis Macrocytosis Spherocytes Target Cells Tear Drop Cells Ovalocytes [place] Cells PTT (Actin FS) Sodium 137 Potassium 4.6 Chloride 95 L Carbon Dioxide 34 H Anion Gap 7 L BUN 63.9 H Creatinine 2.2 H Est GFR (CKD-EPI)AfAm 38.76 Est GFR (CKD-EPI)NonAf 33.44 POC Glucometer 389 310 Random Glucose 391 H Calcium 8.5 Phosphorus Magnesium Total Bilirubin AST ALT Alkaline Phosphatase Total Protein Albumin 05/02/19 05/02/19 05/02/19 05:30 05:30 05:30 WBC 8.4 RBC 4.14 Hgb 10.2 L Hct 32.5 L MCV 78.5 L MCH 24.6 L MCHC 31.3 L RDW 19.8 H Plt Count 311 MPV 8.1 Absolute Neuts (auto) 7.9 Neutrophils % 93.8 H Neutrophils % (Manual) 96.0 H Band Neutrophils % 0.0 Lymphocytes % 1.7 L Lymphocytes % (Manual) 0.0 L Monocytes % 4.5 D Monocytes % (Manual) 3 L D Eosinophils % 0.0 Eosinophils % (Manual) 0.0 Basophils % 0.0 Basophils % (Manual) 0.0 Myelocytes % (Man) 1 D Promyelocytes % (Man) 0 Blast Cells % (Manual) 0 Nucleated RBC % 0 Metamyelocytes 0 Hypochromia 1+ Toxic Granulation 1+ Platelet Estimate Normal Platelet Comment Present Polychromasia 1+ Poikilocytosis 1+ Anisocytosis 1+ Microcytosis 1+ Macrocytosis 0 Spherocytes 1+ Target Cells 1+ Tear Drop Cells 1+ Ovalocytes 1+ [place] Cells 1+ PTT (Actin FS) 33.9 Sodium 134 L Potassium 4.3 Chloride 90 L Carbon Dioxide 37 H Anion Gap 8 BUN 62.8 H Creatinine 2.1 H Est GFR (CKD-EPI)AfAm 41.00 Est GFR (CKD-EPI)NonAf 35.38 POC Glucometer Random Glucose 410 H* Calcium 8.8 Phosphorus 5.4 H Magnesium 1.8 Total Bilirubin 1.0 AST 10 L ALT 32 Alkaline Phosphatase 108 Total Protein 6.1 L Albumin 2.6 L 05/02/19 05/02/19 05/02/19 05:42 09:40 13:14 WBC RBC Hgb Hct MCV MCH MCHC RDW Plt Count MPV Absolute Neuts (auto) Neutrophils % Neutrophils % (Manual) Band Neutrophils % Lymphocytes % Lymphocytes % (Manual) Monocytes % Monocytes % (Manual) Eosinophils % Eosinophils % (Manual) Basophils % Basophils % (Manual) Myelocytes % (Man) Promyelocytes % (Man) Blast Cells % (Manual) Nucleated RBC % Metamyelocytes Hypochromia Toxic Granulation Platelet Estimate Platelet Comment Polychromasia Poikilocytosis Anisocytosis Microcytosis Macrocytosis Spherocytes Target Cells Tear Drop Cells Ovalocytes [place] Cells PTT (Actin FS) Sodium Potassium Chloride Carbon Dioxide Anion Gap BUN Creatinine Est GFR (CKD-EPI)AfAm Est GFR (CKD-EPI)NonAf POC Glucometer 403 377 367 Random Glucose Calcium Phosphorus Magnesium Total Bilirubin AST ALT Alkaline Phosphatase Total Protein Albumin Active Medications Generic Name Dose Route Start Last Admin Trade Name Freq PRN Reason Stop Dose Admin Albuterol/Ipratropium 1 amp 04/30/19 16:00 05/02/19 11:50 Duoneb - NEB 1 amp RQID ELISSA Administration Chlorhexidine Gluconate 1 applic 04/30/19 22:00 05/01/19 21:57 Hibiclens For Decolonization - TP 1 applic HS ELISSA Administration Heparin Sodium (Porcine) 1,000 unit 04/30/19 10:40 04/30/19 20:05 Heparin - IVPUSH 1,000 unit PRN PRN Administration Heparin Heparin Sodium (Porcine) 5,000 unit 04/30/19 10:40 05/02/19 10:07 Heparin - IVPUSH 5,000 unit PRN PRN Administration Heparin Vasopressin 50 units/ Sodium 100 mls @ 4 mls/hr 04/30/19 09:30 05/02/19 11:10 Chloride IVPB 1 units/hr ASDIR ELISSA 2 mls/hr Titration Protocol 2 UNITS/HR Propofol 1,000,000 mcg in 100 mls @ 4.082 mls/hr 04/30/19 10:15 05/02/19 11: 47 Diprivan - IVPB 50 mcg/kg/min TITR ELISSA 40.823 mls/hr Administration Protocol 5 MCG/KG/MIN Heparin Sodium (Porcine) 50, 500 mls @ 10 mls/hr 04/30/19 10:45 05/02/19 10: 00 000 unit/ Sodium Chloride IV 1,250 unit/hr TITR ELISSA 12.5 mls/hr Administration Protocol 1,000 UNIT/HR Vecuronium [place] 50 mg/ 250 mls @ 40.82 mls/hr 04/30/19 12:15 05/01/19 12: 57 Dextrose IVPB 1 mcg/kg/min TITR ELISSA 40.82 mls/hr Administration 1 MCG/KG/MIN Azithromycin 500 mg in 250 mls @ 250 mls/hr 04/30/19 12:30 05/02/19 09:21 Zithromax 500mg Ivpb (Pre-Docked) IVPB 250 mls/hr DAILY ELISSA Administration Norepinephrine Bitartrate 8, 500 mls @ 18.75 mls/hr 04/30/19 14:00 05/01/19 16:15 000 mcg/ Dextrose/Sodium IV Not Given Chloride TITR ELISSA Protocol 5 MCG/MIN Piperacillin Sod/Tazobactam 50 mls @ 100 mls/hr 05/01/19 18:00 05/02/19 09:14 Sod 3.375 gm/ Dextrose IVPB 100 mls/hr Q8H-IV ELISSA Administration Protocol Fentanyl 500 mcg/ Dextrose 100 mls @ 10 mls/hr 05/01/19 12:45 05/02/19 12:01 IVPB 75 mcg/hr TITR ELISSA 15 mls/hr Administration Protocol 50 MCG/HR Furosemide 100 mg/ Sodium 100 mls @ 10 mls/hr 05/01/19 13:52 05/01/19 11:00 Chloride IVPB 10 mls/hr ASDIR ELISSA Administration Insulin Human Regular 100 100 mls @ 14.34 mls/hr 05/02/19 12:00 units/ Sodium Chloride IVPB TITR ELISSA Protocol 0.1 UNITS/KG/HR Insulin Aspart 1 vial 05/02/19 10:00 05/02/19 13:18 Novolog Vial Sliding Scale - SQ 10 units Q4HPO ELISSA Administration Protocol Methylprednisolone Sodium Succinate 60 mg 04/30/19 12:30 05/02/19 09:21 Solu-Medrol - IVPUSH 60 mg Q8H-IV ELISSA Administration Metoprolol Tartrate 5 mg 04/30/19 08:57 05/01/19 21:58 Lopressor Injection - IVPUSH 5 mg Q4H PRN Administration TACHYCARDIA Metoprolol Tartrate 25 mg 05/02/19 13:45 Lopressor - PO BID ELISSA Mupirocin 1 applic 04/30/19 10:00 05/02/19 09:51 Bactroban Ointment (For Decolonization) - NS 05/05/19 09:59 1 applic BID ELISSA Administration Pantoprazole Sodium 40 mg 05/01/19 10:00 05/02/19 09:18 Protonix Iv IVPUSH 40 mg DAILY ELISSA Administration ASSESSMENT/PLAN: 53 y/o/m with PMHx of DM2, HFpEF(last EF: 45-50%), 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 #Acute Hypoxic and Hypercapneic Respiratory Failure/ EMMY - Pt. intubated and Sedated - sedated on Propofol and fentanyl, paralyzed with Vecuronium - Most recent ABG with improvement - pH 7.32, PCO2 61.4, PO2 66.3 - Pulm consulted - repeat CXR showing worsening pulmonary edema - mildly improved today compared to prior, official read pending - Duonebs RQID - Solumedrol 40mg Q8h IV - Follow CXRs - Azithromycin 500mg QD, Zosyn IV Q8hr - ID consulted (Dr. Garcia) - Positive blood culture bottle with staph coag neg organism in both bottles and second bottle with pending organism. Repeat blood cultures negative to date #HFpEF vs. Cardiogenic shock - On Lasix drip - Strict Is & Os, daily weights - ECHO difficult to assess, unremarkable - BNP: 1634 - Trop negative x2 - Cardiology Consult (Dr. Encinas) - pressors weaned off, patient now normotensive but still tachycardic #Atrial Flutter - Lopressor 25mg PO BID - Lopressor 5mg IVpush Q4hr PRN for rate control - Heparin drip #RYNE on CKD w/ Hyperkalemia - BUN/Cr 62.8/2.1 today - Nephrology Consulted (Dr. Kelley) - Likely secondary to volume overload. Pt. likely has CKD given risk factors of DM2(uncontrolled glucose) and Heart Failure - Hyperkalemia resolved, no indication for HD at this time - Diurese with Lasix drip - patient making good urine - continue to monitor BMP - Hold Lisinopril #DM2 - BGM ACHS - ISS ACHS - Insulin drip started due to poor sugar control #FEN - no IVF - monitor electrolytes. K+ normalized - NPO. Consider starting NG tube feeds if intubated for extended period of time #DVT Ppx. - Heparin drip - Protonix #Disposition - Continue ICU monitoring - Possible transfer to [facility] Visit type - Emergency Visit Emergency Visit: Yes ED Registration Date: 04/30/19 Care time: The patient presented to the Emergency Department on the above date and was hospitalized for further evaluation of their emergent condition. - New Patient This patient is new to me today: No - Critical Care Critical Care patient: Yes Total Critical Care Time (in minutes): 36 Critical Care Statement: The care of this patient involved high complexity decision making to prevent further life threatening deterioration of the patient 's condition and/or to evaluate & treat vital organ system(s) failure or risk of failure. ATTENDING PHYSICIAN STATEMENT I saw and evaluated the patient. I reviewed the resident's note and discussed the case with the resident. I agree with the resident's findings and plan as documented. SUBJECTIVE: OBJECTIVE: ASSESSMENT AND PLAN:
[2019-05-02 14:46] LABS: ARTERIAL BLD GAS O2 SATURATION 89.5 % (95-98); ARTERIAL BLOOD GAS BASE EXCESS 5.3 meq/l (-2-2); ARTERIAL BLOOD GAS PCO2 49.2 mmHg (35-45); ARTERIAL BLOOD GAS PO2 58.9 mmHg (80-100); ARTERIAL BLOOD GAS pH 7.41 (7.35-7.45)
[2019-05-02] MEDS: VECURONIUM BROMIDE 50 MG in DEXTROSE 5%-WATER - 250 ML IVPB SCH (15:00)
[2019-05-02] MEDS: INSULIN REGULAR 100 UNITS in SODIUM CHLORIDE 99 ML IVPB SCH ×3 (15:00→15:07)
[2019-05-02] MEDS: FUROSEMIDE INJECTION 100 MG in SODIUM CHLORIDE 90 ML IVPB SCH (15:24)
[2019-05-02] MEDS: NORMAL SALINE IV SCH (15:25)
[2019-05-02] MEDS: DEXTROSE 5% IV SCH (15:25)
[2019-05-02] MEDS: NOREPINEPHRINE BITARTRATE IV SCH (15:25)
--- NOTE | 2019-05-02 15:27 | PN ---
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, Physician History of Present Illness: Pt seen and examined at bedside. He remains in the ICU. He remains intubated. He is making urine. - Current Medication List Current Medications: Active Medications Albuterol/Ipratropium (Duoneb -) 1 amp NEB RQID ELISSA Last Admin: 05/02/19 11:50 Dose: 1 amp Chlorhexidine Gluconate (Hibiclens For Decolonization -) 1 applic TP HS ELISSA Last Admin: 05/01/19 21:57 Dose: 1 applic Heparin Sodium (Porcine) (Heparin -) 1,000 unit IVPUSH PRN PRN PRN Reason: Heparin Last Admin: 04/30/19 20:05 Dose: 1,000 unit Heparin Sodium (Porcine) (Heparin -) 5,000 unit IVPUSH PRN PRN PRN Reason: Heparin Last Admin: 05/02/19 10:07 Dose: 5,000 unit Vasopressin 50 units/ Sodium (Chloride) 100 mls @ 4 mls/hr IVPB ASDIR ELISSA; Protocol Last Titration: 05/02/19 11:10 Dose: 1 units/hr, 2 mls/hr Propofol (Diprivan -) 1,000,000 mcg in 100 mls @ 4.082 mls/hr IVPB TITR [facility]; Protocol Last Admin: 05/02/19 11:47 Dose: 50 mcg/kg/min, 40.823 mls/hr Heparin Sodium (Porcine) 50, (000 unit/ Sodium Chloride) 500 mls @ 10 mls/hr IV TITR ELISSA; Protocol Last Admin: 05/02/19 10:00 Dose: 1,250 unit/hr, 12.5 mls/hr Vecuronium [place] 50 mg/ (Dextrose) 250 mls @ 40.82 mls/hr IVPB TITR ELISSA Last Admin: 05/01/19 12:57 Dose: 1 mcg/kg/min, 40.82 mls/hr Azithromycin (Zithromax 500mg Ivpb (Pre-Docked)) 500 mg in 250 mls @ 250 mls/ hr IVPB DAILY ELISSA Last Admin: 05/02/19 09:21 Dose: 250 mls/hr Norepinephrine Bitartrate 8, 000 mcg/ Dextrose/Sodium Chloride 500 mls @ 18.75 mls/hr IV TITR ELISSA; Protocol Last Admin: 05/01/19 16:15 Dose: Not Given Piperacillin Sod/Tazobactam (Sod 3.375 gm/ Dextrose) 50 mls @ 100 mls/hr IVPB Q8H-IV ELISSA; Protocol Last Admin: 05/02/19 09:14 Dose: 100 mls/hr Fentanyl 500 mcg/ Dextrose 100 mls @ 10 mls/hr IVPB TITR ELISSA; Protocol Last Admin: 05/02/19 12:01 Dose: 75 mcg/hr, 15 mls/hr Furosemide 100 mg/ Sodium (Chloride) 100 mls @ 10 mls/hr IVPB ASDIR [facility] Last Admin: 05/01/19 11:00 Dose: 10 mls/hr Insulin Human Regular 100 (units/ Sodium Chloride) 100 mls @ 14.34 mls/hr IVPB TITR [facility]; Protocol Last Admin: 05/02/19 15:07 Dose: 0.02 units/kg/hr, 4 mls/hr Methylprednisolone Sodium Succinate (Solu-Medrol -) 40 mg IVPUSH Q8H-IV ELISSA Metoprolol Tartrate (Lopressor Injection -) 5 mg IVPUSH Q4H PRN PRN Reason: TACHYCARDIA Last Admin: 05/01/19 21:58 Dose: 5 mg Metoprolol Tartrate (Lopressor -) 25 mg PO BID [facility] Last Admin: 05/02/19 14:14 Dose: 25 mg Mupirocin (Bactroban Ointment (For Decolonization) -) 1 applic NS BID [facility] Stop: 05/05/19 09:59 Last Admin: 05/02/19 09:51 Dose: 1 applic Pantoprazole Sodium (Protonix Iv) 40 mg IVPUSH DAILY [facility] Last Admin: 05/02/19 09:18 Dose: 40 mg - Objective Vital Signs: Vital Signs Temperature 98 F 05/02/19 09:00 Pulse Rate 103 H 05/02/19 14:00 Respiratory Rate 36 H 05/02/19 14:00 Blood Pressure 137/81 05/02/19 14:00 O2 Sat by Pulse Oximetry (%) 96 05/02/19 10:00 Constitutional: Yes: Calm Eyes: Yes: Conjunctiva Clear HENT: Yes: Atraumatic Neck: Yes: Supple Cardiovascular: Yes: Tachycardia, S1, S2 Respiratory: Yes: Mechanically Ventilated Gastrointestinal: Yes: Abdomen, Obese Genitourinary: Yes: Andrews Present Musculoskeletal: Yes: WNL Edema: Yes Edema: LLE: 2+, RLE: 2+ Neurological: Yes: Lethargy Labs: CBC, BMP 05/02/19 05:30 05/02/19 05:30 INR, PTT INR 1.07 (0.83-1.09) 05/01/19 05:25 Problem List - Problems (1) Acute decompensated heart failure Code(s): I50.9 - HEART FAILURE, UNSPECIFIED (2) Atrial fibrillation and flutter Code(s): I48.91 - UNSPECIFIED ATRIAL FIBRILLATION; I48.92 - UNSPECIFIED ATRIAL FLUTTER (3) Hyperkalemia Code(s): E87.5 - HYPERKALEMIA (4) Pneumonia Code(s): J18.9 - PNEUMONIA, UNSPECIFIED ORGANISM Qualifiers: Pneumonia type: due to unspecified organism (5) Sarcoidosis of other sites Code(s): D86.89 - SARCOIDOSIS OF OTHER SITES Assessment/Plan Current Medications Generic Name Dose Route Start Last Admin Trade Name Freq PRN Reason Stop Dose Admin Albuterol/Ipratropium 1 amp 04/30/19 16:00 05/02/19 11:50 Duoneb - NEB 1 amp RQID ELISSA Administration Chlorhexidine Gluconate 1 applic 04/30/19 22:00 05/01/19 21:57 Hibiclens For Decolonization - TP 1 applic HS ELISSA Administration Heparin Sodium (Porcine) 1,000 unit 04/30/19 10:40 04/30/19 20:05 Heparin - IVPUSH 1,000 unit PRN PRN Administration Heparin Heparin Sodium (Porcine) 5,000 unit 04/30/19 10:40 05/02/19 10:07 Heparin - IVPUSH 5,000 unit PRN PRN Administration Heparin Vasopressin 50 units/ Sodium 100 mls @ 4 mls/hr 04/30/19 09:30 05/02/19 11:10 Chloride IVPB 1 units/hr ASDIR ELISSA 2 mls/hr Titration Protocol 2 UNITS/HR Propofol 1,000,000 mcg in 100 mls @ 4.082 mls/hr 04/30/19 10:15 05/02/19 11: 47 Diprivan - IVPB 50 mcg/kg/min TITR ELISSA 40.823 mls/hr Administration Protocol 5 MCG/KG/MIN Heparin Sodium (Porcine) 50, 500 mls @ 10 mls/hr 04/30/19 10:45 05/02/19 10: 00 000 unit/ Sodium Chloride IV 1,250 unit/hr TITR ELISSA 12.5 mls/hr Administration Protocol 1,000 UNIT/HR Vecuronium [place] 50 mg/ 250 mls @ 40.82 mls/hr 04/30/19 12:15 05/01/19 12: 57 Dextrose IVPB 1 mcg/kg/min TITR ELISSA 40.82 mls/hr Administration 1 MCG/KG/MIN Azithromycin 500 mg in 250 mls @ 250 mls/hr 04/30/19 12:30 05/02/19 09:21 Zithromax 500mg Ivpb (Pre-Docked) IVPB 250 mls/hr DAILY ELISSA Administration Norepinephrine Bitartrate 8, 500 mls @ 18.75 mls/hr 04/30/19 14:00 05/01/19 16:15 000 mcg/ Dextrose/Sodium IV Not Given Chloride TITR ELISSA Protocol 5 MCG/MIN Piperacillin Sod/Tazobactam 50 mls @ 100 mls/hr 05/01/19 18:00 05/02/19 09:14 Sod 3.375 gm/ Dextrose IVPB 100 mls/hr Q8H-IV ELISSA Administration Protocol Fentanyl 500 mcg/ Dextrose 100 mls @ 10 mls/hr 05/01/19 12:45 05/02/19 12:01 IVPB 75 mcg/hr TITR ELISSA 15 mls/hr Administration Protocol 50 MCG/HR Furosemide 100 mg/ Sodium 100 mls @ 10 mls/hr 05/01/19 13:52 05/01/19 11:00 Chloride IVPB 10 mls/hr ASDIR ELISSA Administration Insulin Human Regular 100 100 mls @ 14.34 mls/hr 05/02/19 12:00 05/02/19 15: 07 units/ Sodium Chloride IVPB 0.02 units/kg/hr TITR ELISSA 4 mls/hr Administration Protocol 0.1 UNITS/KG/HR Methylprednisolone Sodium Succinate 40 mg 05/02/19 14:05 Solu-Medrol - IVPUSH Q8H-IV ELISSA Metoprolol Tartrate 5 mg 04/30/19 08:57 05/01/19 21:58 Lopressor Injection - IVPUSH 5 mg Q4H PRN Administration TACHYCARDIA Metoprolol Tartrate 25 mg 05/02/19 13:45 05/02/19 14:14 Lopressor - PO 25 mg BID ELISSA Administration Mupirocin 1 applic 04/30/19 10:00 05/02/19 09:51 Bactroban Ointment (For Decolonization) - NS 05/05/19 09:59 1 applic BID ELISSA Administration Pantoprazole Sodium 40 mg 05/01/19 10:00 05/02/19 09:18 Protonix Iv IVPUSH 40 mg DAILY ELISSA Administration Impression 1. RYNE 2. hyperkalemia 3. resp failure requiring intubation 4. resp acidosis 5. dm 6. hx htn 7. sleep apnea 8. obesity 9. hx non compliance 10. chf 11. sarcoid 12. volume overload Plan - potassium stable - cont lasix - pt is making urine - monitor urine output - vent support - pulm input appreciated - pending transfer to tertiary care [facility]
[2019-05-02] MEDS: HEPARIN NA (PORCINE) 5,000 UNITS/ML 1ML VIAL IVPUSH PRN ×2 (17:20→23:58)
--- NOTE | 2019-05-02 19:07 | PN ---
Teaching Attending Note Name of Resident: Giuseppe Rm ATTENDING PHYSICIAN STATEMENT I saw and evaluated the patient. I reviewed the resident's note and discussed the case with the resident. I agree with the resident's findings and plan as documented. Seen and examined; please see resident note for further historical information. I personally verified all valadez historical information and exam findings. Personally interpreted all imaging and diagnostics and reviewed appropriate consults. I reviewed all labs and vital signs as per resident note and EMR as documented. I agree with the above assessment and plan unless supplemented by myself in the following. Could not speak with patient is intubated and sedated on the ventilator. The patient is hemodynamically improved, and weaning off pressors. PaO2 is improved on ABG, PCO2 is persistently elevated but improved. We will discuss with ICU team regarding starting insulin drip versus basal coverage, but either way the patient's sugar should be kept under 180. VS, labs, imaging reviewed Intubated and sedated on ventillator resting in bed, vent settings per flowsheet ET Tube in place; IV access noted with no apparent surrounding cellulitis RRR s1/2 no mgr Normal muscle tone, moves all 5 extremities with normal apparent strength Neck is supple, trachea midline, no fernanda LN Lungs CTAB with sym expansion NT ND +BS no fernanda organomegaly CN2-12 wnl; no FND but limited given clinical circumstances. NC AT EOMI PERRLA Not agitated, cannot complete full psych assessment No skin breakdown or rashes noted Telemetry reviewed Discussed with indicated consultants Assessment and plan: Patient remains critically ill in the intensive care unit. Pending transfer. Patient was accepted but is pending a bed at [place], this was discussed at length for ICU. Hyperkalemia is improved, does not require urgent dialysis. Problems include: Acute mixed respiratory failure Septic shock, improving and weaning off of vasopressor Rule out ARDS Paroxysmal A. fib versus a flutter with RVR Acute on chronic diastolic heart failure RYNE on CKD with hyperkalemia, improved, nephrology following Uncontrolled diabetes mellitus with hyperglycemia, will need to start basal versus drip. Goal sugar less than 180 Anemia Noncompliance to medical therapy Full code
[2019-05-02] MEDS: CHLORHEXIDINE GLUCONATE 4% CLEANSER FOR DECOLONIZATION TP SCH (21:27)
[2019-05-02] MEDS ORDERED: INSULIN (LEVEMIR) 100 UNITS/ML UNITS SQ SCH (22:00)
[2019-05-03] MEDS: methylPREDNISolone NA SUCC 40 MG/1 ML VIAL IVPUSH SCH ×3 (01:45→17:03)
[2019-05-03] MEDS ORDERED: PIPERACILLIN/TAZOBACTAM 3.375 GM VIAL IVPB ONE ×3 (01:59→16:01)
[2019-05-03] MEDS ORDERED: DEXTROSE 5%-WATER - 50 ML IVPB ONE ×3 (02:00→16:01)
[2019-05-03] MEDS: PIPERACILLIN/TAZOB 3.375 GM 3.375 GM in DEXTROSE 5%-WATER - 50 ML IVPB SCH ×3 (02:09→17:02)
[2019-05-03] MEDS: METOPROLOL TARTRATE 5 MG/5 ML VIAL IVPUSH PRN (03:13)
[2019-05-03] MEDS ORDERED: fentaNYL CITRATE 250 MCG/5 ML VIAL ONE ×3 (03:36→19:35)
[2019-05-03 05:57] LABS: ARTERIAL BLD GAS O2 SATURATION 93.5 % (95-98); ARTERIAL BLOOD GAS BASE EXCESS 13.9 meq/l (-2-2); ARTERIAL BLOOD GAS PCO2 58.2 mmHg (35-45); ARTERIAL BLOOD GAS PO2 71.7 mmHg (80-100); ARTERIAL BLOOD GAS pH 7.45 (7.35-7.45)
[2019-05-03 07:09] LABS: BASO % 0.1 % (0-2.0); HEMATOCRIT 32.9 % (35.4-49); HEMOGLOBIN 10.4 GM/dL (11.7-16.9); LYMPH % 1.8 % (8-40); MCH 24.3 pg (25.7-33.7); MCHC 31.7 g/dl (32.0-35.9); MEAN CELL VOLUME 76.7 fl (80-96); MEAN PLT VOLUME 7.9 fl (7.5-11.1); NEUT % 92.1 % (42.8-82.8); PLATELET COUNT 329 K/MM3 (134-434); RBC 4.29 M/mm3 (4.00-5.60); RDW 19.7 % (11.9-15.9); WHITE BLOOD COUNT 9.8 K/mm3 (4.0-10.0)
[2019-05-03 07:38] LABS: ALBUMIN 2.5 g/dl (3.4-5.0); BILIRUBIN,TOTAL 0.5 mg/dL (0.2-1); BLOOD UREA NITROGEN 49.8 mg/dL (7-18); CREATININE 1.5 mg/dL (0.55-1.3); MAGNESIUM 1.7 mg/dL (1.8-2.4); PHOSPHOROUS 5.2 mg/dL (2.5-4.9); POTASSIUM 3.6 mmol/L (3.5-5.1); TOT PROT 6.1 g/dl (6.4-8.2)
[2019-05-03] MEDS ORDERED: FUROSEMIDE 40 MG/4 ML INJECTABLE VIAL ONE ×2 (07:56→19:35)
[2019-05-03] MEDS: ALBUTEROL SO4 2.5/IPRATROPIUM 0.5 INH SOL 3 ML VIAL.NEB. NEB SCH ×4 (08:10→21:05)
--- NOTE | 2019-05-03 08:29 | PN ---
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 (short form) - Note 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: remains intubated and sedated and paralyzed no ET secretions Fio2 80% off pressors Vital Signs Period Temp Pulse Resp BP Sys/[place] Pulse Ox Last 24 Hr 97.3 F-98 F 89-145 36-36 84-163/50-95 94-96 cor-tachycardia lungs decreased bs at bases abd firm, nt ext +edema ortiz, cadence, left sc central line CBC, BMP 05/03/19 06:10 05/03/19 06:10 Laboratory Tests 05/03/19 06:10 Random Vancomycin 10.8 L Microbiology 04/30/19 05:05 Blood - Peripheral Venous Blood Culture - Preliminary Staphylococcus Coagulase Neg 04/30/19 05:05 Blood - Peripheral Venous Blood Culture - Preliminary Staphylococcus Coagulase Neg Pending Organism 05/01/19 11:09 Blood - Peripheral Venous Blood Culture - Preliminary NO GROWTH OBTAINED AFTER 24 HOURS, INCUBATION TO CONTINUE FOR 4 DAYS. 05/01/19 09:00 Blood - Peripheral Venous Blood Culture - Preliminary NO GROWTH OBTAINED AFTER 24 HOURS, INCUBATION TO CONTINUE FOR 4 DAYS. 04/30/19 19:45 Urine For Antigen Detection Legionella Antigen - Final 04/30/19 19:45 Urine For Antigen Detection Streptococcus pneumoniae Antigen (M - Final 04/30/19 05:25 Urine - Urine - Catheterized Urine Culture - Final NO GROWTH OBTAINED csray- unable to see left base, ?rll infiltrate a/p respiratory failure cannot r/o pneumonia SCN bacteremia- repeat blood cultures sent- on vancomycin by level aflutter ziayd acute on chronic diastolic heart failure zosyn/zithromax to continue redose vancomycin d/w fisher pot
[2019-05-03] MEDS: PROPOFOL 1,000,000 MCG/100 ML VIAL IVPB SCH ×4 (08:30→22:00)
--- NOTE | 2019-05-03 08:50 | PN ---
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 (short form) - Note 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: Pulm/CCM SUBJECTIVE: Patient seen and examined in the ICU. Remains intubated, sedated, paralyzed. AC Mode of vent, 80% FiO2 / PEEP 12. , Left base remains opacified off pressors still in for transfer to [facility] if bed becomes available decreasing paralysis as TOF 0/4 ongoing diuresis OBJECTIVE: Vital Signs Temp 97.3 F L 05/03/19 06:00 Pulse 111 H 05/03/19 06:00 Resp 36 H 05/03/19 06:00 BP 153/95 05/03/19 06:00 Pulse Ox 96 05/02/19 22:00 Intake & Output 05/02/19 05/02/19 05/03/19 11:59 23:59 11:59 Intake Total 1144.5 2732 1045 Output Total 3900 4500 1600 Balance -2755.5 -1768 -555 Weight 143.471 kg 143.335 kg 138.572 kg Intake: IV 1094.5 1932 1045 DIPRIVAN - 1,000,000 mcg 450 In 100 ml @ 5 MCG/KG/MIN 4.082 mls/hr IVPB TITR ELISSA Rx#:[id number] DIPRIVAN - 1,000,000 mcg 315.3 In 100 ml @ 5 MCG/KG/MIN 4.082 mls/hr IVPB TITR ELISSA Rx#:[id number] Heparin - 50,000 Unit In 103.3 145 Normal Saline - 490 ml @ 1,000 UNIT/HR 10 mls/hr IV TITR ELISSA Rx#: [id number] Lasix Injection - 100 mg 93.9 120 In Normal Saline - 90 ml @ 10 mls/hr IVPB ASDIR ELSISA Rx#:[id number] NOVOLIN R VIAL *For 17 IVPUSH or IV DRIP Only* 100 UNITS In Normal Saline - 99 ml @ 0.1 UNITS/KG/HR 14.34 mls/hr IVPB TITR ELISSA Rx#: [id number] Pitressin - 50 Units In 37.6 26 Normal Saline - 97.5 ml @ 2 UNITS/HR 4 mls/hr IVPB ASDIR ELISSA Rx#: [id number] SL2 04/30/19 511 1045 Sublimaze Injection - 500 160.5 180 Mcg In D5w - 90 ml @ 50 MCG/HR 10 mls/hr IVPB TITR ELISSA Rx#:[id number] Vecuronium [place] 50 mg 383.9 483 In D5w - 250 ml @ 1 MCG/ KG/MIN 40.82 mls/hr IVPB TITR ELISSA Rx#:[id number] IVPB 50 700 Tube Irrigant 100 Output: Urine 3900 4500 1600 Andrews 3900 4500 1600 Other: Voiding Method Indwelling Catheter Indwelling Catheter Bowel Movement No No No Height 5 ft 6 in Body Mass Index (BMI) 51.0 Weight Measurement Method Built in Bedscale Built in Bedscale Active Medications Albuterol/Ipratropium (Duoneb -) 1 amp NEB RQID ELISSA Last Admin: 05/02/19 20:39 Dose: 1 amp Chlorhexidine Gluconate (Hibiclens For Decolonization -) 1 applic TP HS ELISSA Last Admin: 05/02/19 21:27 Dose: 1 applic Heparin Sodium (Porcine) (Heparin -) 1,000 unit IVPUSH PRN PRN PRN Reason: Heparin Last Admin: 05/02/19 23:58 Dose: 1,000 unit Heparin Sodium (Porcine) (Heparin -) 5,000 unit IVPUSH PRN PRN PRN Reason: Heparin Last Admin: 05/02/19 10:07 Dose: 5,000 unit Vasopressin 50 units/ Sodium (Chloride) 100 mls @ 4 mls/hr IVPB ASDIR ELISSA; Protocol Last Titration: 05/02/19 15:30 Dose: 1 units/hr, 2 mls/hr Propofol (Diprivan -) 1,000,000 mcg in 100 mls @ 4.082 mls/hr IVPB TITR [facility]; Protocol Last Titration: 05/03/19 05:19 Dose: 50 mcg/kg/min, 40.823 mls/hr Heparin Sodium (Porcine) 50, (000 unit/ Sodium Chloride) 500 mls @ 10 mls/hr IV TITR ELISSA; Protocol Last Titration: 05/02/19 23:58 Dose: 1,450 unit/hr, 14.5 mls/hr Vecuronium [place] 50 mg/ (Dextrose) 250 mls @ 40.82 mls/hr IVPB TITR ELISSA Last Infusion: 05/03/19 03:32 Dose: 1 mcg/kg/min, 40.82 mls/hr Azithromycin (Zithromax 500mg Ivpb (Pre-Docked)) 500 mg in 250 mls @ 250 mls/ hr IVPB DAILY [facility] Last Admin: 05/02/19 09:21 Dose: 250 mls/hr Norepinephrine Bitartrate 8, 000 mcg/ Dextrose/Sodium Chloride 500 mls @ 18.75 mls/hr IV TITR ELISSA; Protocol Last Admin: 05/02/19 15:25 Dose: Not Given Piperacillin Sod/Tazobactam (Sod 3.375 gm/ Dextrose) 50 mls @ 100 mls/hr IVPB Q8H-IV ELISSA; Protocol Last Admin: 05/03/19 02:09 Dose: 100 mls/hr Fentanyl 500 mcg/ Dextrose 100 mls @ 10 mls/hr IVPB TITR ELISSA; Protocol Last Titration: 05/03/19 04:20 Dose: 100 mcg/hr, 20 mls/hr Furosemide 100 mg/ Sodium (Chloride) 100 mls @ 10 mls/hr IVPB ASDIR ELISSA Last Infusion: 05/02/19 20:44 Dose: 10 mls/hr Insulin Human Regular 100 (units/ Sodium Chloride) 100 mls @ 14.34 mls/hr IVPB TITR ELISSA; Protocol Last Titration: 05/03/19 06:26 Dose: 0.02 units/kg/hr, 3 mls/hr Vancomycin HCl 1,250 mg/ (Dextrose) 250 mls @ 250 mls/2 hr IVPB ONCE ONE; Protocol Stop: 05/03/19 10:38 Methylprednisolone Sodium Succinate (Solu-Medrol -) 40 mg IVPUSH Q8H-IV ELISSA Last Admin: 05/03/19 01:45 Dose: 40 mg Metoprolol Tartrate (Lopressor Injection -) 5 mg IVPUSH Q4H PRN PRN Reason: TACHYCARDIA Last Admin: 05/03/19 03:13 Dose: 5 mg Metoprolol Tartrate (Lopressor -) 25 mg PO BID [facility] Last Admin: 05/02/19 21:26 Dose: 25 mg Mupirocin (Bactroban Ointment (For Decolonization) -) 1 applic NS BID [facility] Stop: 05/05/19 09:59 Last Admin: 05/02/19 21:27 Dose: 1 applic Pantoprazole Sodium (Protonix Iv) 40 mg IVPUSH DAILY [facility] Last Admin: 05/02/19 09:18 Dose: 40 mg Gen: intubated, sedated, TOF 0/4 Heart: tachycardic Lung: bilateral rhonchi, diminished bases L worse than R Abd: soft, nontender Ext:+ edema improved CBCD WBC 9.8 K/mm3 (4.0-10.0) 05/03/19 06:10 RBC 4.29 M/mm3 (4.00-5.60) 05/03/19 06:10 Hgb 10.4 GM/dL (11.7-16.9) L 05/03/19 06:10 Hct 32.9 % (35.4-49) L 05/03/19 06:10 MCV 76.7 fl (80-96) L 05/03/19 06:10 MCHC 31.7 g/dl (32.0-35.9) L 05/03/19 06:10 RDW 19.7 % (11.9-15.9) H 05/03/19 06:10 Plt Count 329 K/MM3 (134-434) 05/03/19 06:10 MPV 7.9 fl (7.5-11.1) 05/03/19 06:10 CMP Sodium 138 mmol/L (136-145) 05/03/19 06:10 Potassium 3.6 mmol/L (3.5-5.1) 05/03/19 06:10 Chloride 89 mmol/L (98-107) L 05/03/19 06:10 Carbon Dioxide 42 mmol/L (21-32) H 05/03/19 06:10 Anion Gap 7 MMOL/L (8-16) L 05/03/19 06:10 BUN 49.8 mg/dL (7-18) H 05/03/19 06:10 Creatinine 1.5 mg/dL (0.55-1.3) H 05/03/19 06:10 Calcium 9.0 mg/dL (8.5-10.1) 05/03/19 06:10 Total Bilirubin 0.5 mg/dL (0.2-1) 05/03/19 06:10 AST 9 U/L (15-37) L 05/03/19 06:10 ALT 27 U/L (13-61) 05/03/19 06:10 Alkaline Phosphatase 97 U/L (45-117) 05/03/19 06:10 Total Protein 6.1 g/dl (6.4-8.2) L 05/03/19 06:10 Albumin 2.5 g/dl (3.4-5.0) L 05/03/19 06:10 ASSESSMENT AND PLAN: Acute Hypoxic and Hypercapneic Respiratory Failure Pneumonia Gram Positive Bacteremia Septic Shock Volume Overload r/o ARDS Lactic Acidosis Hyperkalemia Acute Kidney Injury Atrial Flutter with RVR HTN DM Anemia - Wean FiO2 and PEEP as tolerated / Lung protective ventilation , maintain high PEEP given ateletatic L base - f/u cultures - Off pressors - keep Pplat <30 - continue paralysis for vent synchrony - Lasix for 1-2L negative fluid balance - Monitor urine output, creatinine - Monitor lytes - Medrol - Inhaled bronchodilators - Rate control - Continue anticoagulation - Continue volume assist control - Poor candidate for weaning at this time - DVT/GI prophylaxis - continue ICU monitoring - prognosis guarded Cyndi ACNP [id number] 35min CCT
[2019-05-03] MEDS ORDERED: VANCOMYCIN HCL 1,250 MG in DEXTROSE 5%-WATER - 250 ML IVPB ONE (09:00)
[2019-05-03] MEDS: HEPARIN NA (PORCINE) 5,000 UNITS/ML 1ML VIAL IVPUSH PRN (09:17)
[2019-05-03] MEDS: METOPROLOL TARTRATE 25 MG TABLET (FP) PO SCH ×2 (09:32→21:24)
[2019-05-03] MEDS: PANTOPRAZOLE SODIUM 40 MG VIAL IVPUSH SCH (09:33)
--- NOTE | 2019-05-03 09:37 | PN ---
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 (short form) - Note 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: RENAL pt is intubated, sedated and paralyzed has bilat air entry, sats in 90's on 80 percent Last Vital Signs Temp Pulse Resp BP Pulse Ox 97.3 F L 102 H 36 H 175/99 H 96 05/03/19 06:00 05/03/19 07:30 05/03/19 07:30 05/03/19 07:30 05/02/19 22:00 cvs s1s2 rr abd soft, obese ext +edema neuro sedated CBC, BMP 05/03/19 06:10 05/03/19 06:10 Current Medications Generic Name Dose Route Start Last Admin Trade Name Freq PRN Reason Stop Dose Admin Albuterol/Ipratropium 1 amp 04/30/19 16:00 05/02/19 20:39 Duoneb - NEB 1 amp RQID ELISSA Administration Chlorhexidine Gluconate 1 applic 04/30/19 22:00 05/02/19 21:27 Hibiclens For Decolonization - TP 1 applic HS ELISSA Administration Heparin Sodium (Porcine) 1,000 unit 04/30/19 10:40 05/03/19 09:17 Heparin - IVPUSH 1,000 unit PRN PRN Administration Heparin Heparin Sodium (Porcine) 5,000 unit 04/30/19 10:40 05/02/19 10:07 Heparin - IVPUSH 5,000 unit PRN PRN Administration Heparin Vasopressin 50 units/ Sodium 100 mls @ 4 mls/hr 04/30/19 09:30 05/03/19 07:30 Chloride IVPB 0 units/hr ASDIR ELISSA 0 mls/hr Titration Protocol 2 UNITS/HR Propofol 1,000,000 mcg in 100 mls @ 4.082 mls/hr 04/30/19 10:15 05/03/19 08: 30 Diprivan - IVPB 50 mcg/kg/min TITR ELISSA 40.823 mls/hr Administration Protocol 5 MCG/KG/MIN Heparin Sodium (Porcine) 50, 500 mls @ 10 mls/hr 04/30/19 10:45 05/03/19 09: 16 000 unit/ Sodium Chloride IV 1,500 unit/hr TITR ELISSA 15 mls/hr Titration Protocol 1,000 UNIT/HR Vecuronium [place] 50 mg/ 250 mls @ 40.82 mls/hr 04/30/19 12:15 05/03/19 03: 32 Dextrose IVPB 1 mcg/kg/min TITR ELISSA 40.82 mls/hr Infusion 1 MCG/KG/MIN Azithromycin 500 mg in 250 mls @ 250 mls/hr 04/30/19 12:30 05/02/19 09:21 Zithromax 500mg Ivpb (Pre-Docked) IVPB 250 mls/hr DAILY ELISSA Administration Norepinephrine Bitartrate 8, 500 mls @ 18.75 mls/hr 04/30/19 14:00 05/02/19 15:25 000 mcg/ Dextrose/Sodium IV Not Given Chloride TITR ELISSA Protocol 5 MCG/MIN Piperacillin Sod/Tazobactam 50 mls @ 100 mls/hr 05/01/19 18:00 05/03/19 02:09 Sod 3.375 gm/ Dextrose IVPB 100 mls/hr Q8H-IV ELISSA Administration Protocol Fentanyl 500 mcg/ Dextrose 100 mls @ 10 mls/hr 05/01/19 12:45 05/03/19 04:20 IVPB 100 mcg/hr TITR ELISSA 20 mls/hr Titration Protocol 50 MCG/HR Furosemide 100 mg/ Sodium 100 mls @ 10 mls/hr 05/01/19 13:52 05/02/19 20:44 Chloride IVPB 10 mls/hr ASDIR ELISSA Infusion Insulin Human Regular 100 100 mls @ 14.34 mls/hr 05/02/19 12:00 05/03/19 09: 00 units/ Sodium Chloride IVPB 0.03 units/kg/hr TITR ELISSA 5 mls/hr Titration Protocol 0.1 UNITS/KG/HR Vancomycin HCl 1,250 mg/ 250 mls @ 250 mls/2 hr 05/03/19 09:00 Dextrose IVPB 05/03/19 10:59 ONCE ONE Protocol Methylprednisolone Sodium Succinate 40 mg 05/02/19 14:05 05/03/19 01:45 Solu-Medrol - IVPUSH 40 mg Q8H-IV ELISSA Administration Metoprolol Tartrate 5 mg 04/30/19 08:57 05/03/19 03:13 Lopressor Injection - IVPUSH 5 mg Q4H PRN Administration TACHYCARDIA Metoprolol Tartrate 25 mg 05/02/19 13:45 05/02/19 21:26 Lopressor - PO 25 mg BID ELISSA Administration Mupirocin 1 applic 01/22/20 10:00 05/02/19 21:27 Bactroban Ointment (For Decolonization) - NS 05/05/19 09:59 1 applic BID ELISSA Administration Pantoprazole Sodium 40 mg 05/01/19 10:00 05/02/19 09:18 Protonix Iv IVPUSH 40 mg DAILY ELISSA Administration Impression 1. RYNE 2. hyperkalemia 3. resp failure requiring intubation 4. resp acidosis 5. dm 6. hx htn 7. sleep apnea 8. obesity 9. hx non compliance 10. chf 11. sarcoid 12. volume overload Plan - cont lasix - monitor urine output - vent support - pulm input appreciated - pending transfer to tertiary care center - paralyzed per ccm MV
[2019-05-03] MEDS: FENTANYL INJECTION 500 MCG in DEXTROSE 5%-WATER - 90 ML IVPB SCH ×3 (10:06→21:44)
[2019-05-03] MEDS: MUPIROCIN 2% TOPICAL OINTMENT FOR DECOLONIZATION NS SCH ×2 (10:07→21:23)
[2019-05-03] MEDS: FUROSEMIDE INJECTION 100 MG in SODIUM CHLORIDE 90 ML IVPB SCH (10:07)
[2019-05-03] MEDS: VASOPRESSIN 50 UNITS in SODIUM CHLORIDE 97.5 ML IVPB SCH (10:08)
[2019-05-03] MEDS: AZITHROMYCIN IVPB 500 MG/250 ML BAG IVPB SCH (10:08)
[2019-05-03] MEDS: INSULIN REGULAR 100 UNITS in SODIUM CHLORIDE 99 ML IVPB SCH (11:10)
--- NOTE | 2019-05-03 11:13 | PN ---
Physical Exam: SUBJECTIVE: Patient seen and examined; has continued tachycardia. 10 sys ROS cannot be completed due to the fact he is intubated and sedated OBJECTIVE: Vital Signs Period Temp Pulse Resp BP Sys/[place] Pulse Ox Last 24 Hr 97.3 F-97.8 F 92-145 36-36 84-175/53-115 94-96 GENERAL: The patient is awake, alert, and fully oriented, in no acute distress. HEAD: Normal with no signs of trauma. EYES: PERRL, extraocular movements intact, sclera anicteric, conjunctiva clear. No ptosis. ENT: Ears normal, nares patent, oropharynx clear without exudates, moist mucous membranes. NECK: Trachea midline, full range of motion, supple. LUNGS: Breath sounds equal, clear to auscultation bilaterally, no wheezes, no crackles, no accessory muscle use. HEART: Regular rate and rhythm, S1, S2 without murmur, rub or gallop. ABDOMEN: Soft, nontender, nondistended, normoactive bowel sounds, no guarding, no rebound, no hepatosplenomegaly, no masses. EXTREMITIES: 2+ pulses, warm, well-perfused, no edema. NEUROLOGICAL: Cranial nerves II through XII grossly intact. Normal speech, gait not observed. PSYCH: Normal mood, normal affect. SKIN: Warm, dry, normal turgor, no rashes or lesions noted Laboratory Results - last 24 hr 05/02/19 05/02/19 05/02/19 05:30 13:14 14:29 WBC RBC Hgb Hct MCV MCH MCHC RDW Plt Count MPV Absolute Neuts (auto) Neutrophils % Neutrophils % (Manual) 96.0 H Band Neutrophils % 0.0 Lymphocytes % Lymphocytes % (Manual) 0.0 L Monocytes % Monocytes % (Manual) 3 L D Eosinophils % Eosinophils % (Manual) 0.0 Basophils % Basophils % (Manual) 0.0 Myelocytes % (Man) 1 D Promyelocytes % (Man) 0 Blast Cells % (Manual) 0 Nucleated RBC % 0 Metamyelocytes 0 Hypochromia 1+ Toxic Granulation 1+ Platelet Estimate Normal Platelet Comment Present Polychromasia 1+ Poikilocytosis 1+ Anisocytosis 1+ Microcytosis 1+ Macrocytosis 0 Spherocytes 1+ Target Cells 1+ Tear Drop Cells 1+ Ovalocytes 1+ [place] Cells 1+ PTT (Actin FS) Anticoagulation Therapy No Result Required. Puncture Site Arterial line ABG pH 7.41 ABG pCO2 at Pt Temp 49.2 H ABG pO2 at Pt Temp 58.9 L ABG HCO3 30.3 H ABG O2 Sat (Measured) 89.5 L ABG O2 Content 12.6 ABG Base Excess 5.3 H Adrian Test Not applicable O2 Delivery Device No Result Required. Oxygen Flow Rate Yes Vent Mode No Result Required. Vent Rate 36 Mechanical Rate No Result Required. PEEP Pressure Support Vent No Result Required. Sodium Potassium Chloride Carbon Dioxide Anion Gap BUN Creatinine Est GFR (CKD-EPI)AfAm Est GFR (CKD-EPI)NonAf POC Glucometer 367 Random Glucose Calcium Phosphorus Magnesium Total Bilirubin AST ALT Alkaline Phosphatase Total Protein Albumin Random Vancomycin 05/02/19 05/02/19 05/02/19 14:58 16:10 16:12 WBC RBC Hgb Hct MCV MCH MCHC RDW Plt Count MPV Absolute Neuts (auto) Neutrophils % Neutrophils % (Manual) Band Neutrophils % Lymphocytes % Lymphocytes % (Manual) Monocytes % Monocytes % (Manual) Eosinophils % Eosinophils % (Manual) Basophils % Basophils % (Manual) Myelocytes % (Man) Promyelocytes % (Man) Blast Cells % (Manual) Nucleated RBC % Metamyelocytes Hypochromia Toxic Granulation Platelet Estimate Platelet Comment Polychromasia Poikilocytosis Anisocytosis Microcytosis Macrocytosis Spherocytes Target Cells Tear Drop Cells Ovalocytes [place] Cells PTT (Actin FS) 48.5 H Anticoagulation Therapy Puncture Site ABG pH ABG pCO2 at Pt Temp ABG pO2 at Pt Temp ABG HCO3 ABG O2 Sat (Measured) ABG O2 Content ABG Base Excess Adrian Test O2 Delivery Device Oxygen Flow Rate Vent Mode Vent Rate Mechanical Rate PEEP Pressure Support Vent Sodium Potassium Chloride Carbon Dioxide Anion Gap BUN Creatinine Est GFR (CKD-EPI)AfAm Est GFR (CKD-EPI)NonAf POC Glucometer [phone] Random Glucose Calcium Phosphorus Magnesium Total Bilirubin AST ALT Alkaline Phosphatase Total Protein Albumin Random Vancomycin 05/02/19 05/02/19 05/02/19 17:13 18:22 20:20 WBC RBC Hgb Hct MCV MCH MCHC RDW Plt Count MPV Absolute Neuts (auto) Neutrophils % Neutrophils % (Manual) Band Neutrophils % Lymphocytes % Lymphocytes % (Manual) Monocytes % Monocytes % (Manual) Eosinophils % Eosinophils % (Manual) Basophils % Basophils % (Manual) Myelocytes % (Man) Promyelocytes % (Man) Blast Cells % (Manual) Nucleated RBC % Metamyelocytes Hypochromia Toxic Granulation Platelet Estimate Platelet Comment Polychromasia Poikilocytosis Anisocytosis Microcytosis Macrocytosis Spherocytes Target Cells Tear Drop Cells Ovalocytes [place] Cells PTT (Actin FS) Anticoagulation Therapy Puncture Site ABG pH ABG pCO2 at Pt Temp ABG pO2 at Pt Temp ABG HCO3 ABG O2 Sat (Measured) ABG O2 Content ABG Base Excess Adrian Test O2 Delivery Device Oxygen Flow Rate Vent Mode Vent Rate Mechanical Rate PEEP Pressure Support Vent Sodium Potassium Chloride Carbon Dioxide Anion Gap BUN Creatinine Est GFR (CKD-EPI)AfAm Est GFR (CKD-EPI)NonAf POC Glucometer [phone] Random Glucose Calcium Phosphorus Magnesium Total Bilirubin AST ALT Alkaline Phosphatase Total Protein Albumin Random Vancomycin 05/02/19 05/02/19 05/03/19 23:03 23:05 02:16 WBC RBC Hgb Hct MCV MCH MCHC RDW Plt Count MPV Absolute Neuts (auto) Neutrophils % Neutrophils % (Manual) Band Neutrophils % Lymphocytes % Lymphocytes % (Manual) Monocytes % Monocytes % (Manual) Eosinophils % Eosinophils % (Manual) Basophils % Basophils % (Manual) Myelocytes % (Man) Promyelocytes % (Man) Blast Cells % (Manual) Nucleated RBC % Metamyelocytes Hypochromia Toxic Granulation Platelet Estimate Platelet Comment Polychromasia Poikilocytosis Anisocytosis Microcytosis Macrocytosis Spherocytes Target Cells Tear Drop Cells Ovalocytes [place] Cells PTT (Actin FS) 42.4 H Anticoagulation Therapy Puncture Site ABG pH ABG pCO2 at Pt Temp ABG pO2 at Pt Temp ABG HCO3 ABG O2 Sat (Measured) ABG O2 Content ABG Base Excess Adrian Test O2 Delivery Device Oxygen Flow Rate Vent Mode Vent Rate Mechanical Rate PEEP Pressure Support Vent Sodium Potassium Chloride Carbon Dioxide Anion Gap BUN Creatinine Est GFR (CKD-EPI)AfAm Est GFR (CKD-EPI)NonAf POC Glucometer 229 202 Random Glucose Calcium Phosphorus Magnesium Total Bilirubin AST ALT Alkaline Phosphatase Total Protein Albumin Random Vancomycin 05/03/19 05/03/19 05/03/19 04:38 06:00 06:05 WBC RBC Hgb Hct MCV MCH MCHC RDW Plt Count MPV Absolute Neuts (auto) Neutrophils % Neutrophils % (Manual) Band Neutrophils % Lymphocytes % Lymphocytes % (Manual) Monocytes % Monocytes % (Manual) Eosinophils % Eosinophils % (Manual) Basophils % Basophils % (Manual) Myelocytes % (Man) Promyelocytes % (Man) Blast Cells % (Manual) Nucleated RBC % Metamyelocytes Hypochromia Toxic Granulation Platelet Estimate Platelet Comment Polychromasia Poikilocytosis Anisocytosis Microcytosis Macrocytosis Spherocytes Target Cells Tear Drop Cells Ovalocytes [place] Cells PTT (Actin FS) Anticoagulation Therapy Puncture Site Arterial line ABG pH 7.45 ABG pCO2 at Pt Temp 58.2 H ABG pO2 at Pt Temp 71.7 L ABG HCO3 40.0 H ABG O2 Sat (Measured) 93.5 L ABG O2 Content 14.3 ABG Base Excess 13.9 H Adrian Test No Result Required. O2 Delivery Device Vent Oxygen Flow Rate 80% Vent Mode A/c Vent Rate 36 Mechanical Rate PEEP 12.0 Pressure Support Vent 325 Sodium Potassium Chloride Carbon Dioxide Anion Gap BUN Creatinine Est GFR (CKD-EPI)AfAm Est GFR (CKD-EPI)NonAf POC Glucometer 177 202 Random Glucose Calcium Phosphorus Magnesium Total Bilirubin AST ALT Alkaline Phosphatase Total Protein Albumin Random Vancomycin 05/03/19 05/03/19 05/03/19 06:10 06:10 06:10 WBC 9.8 RBC 4.29 Hgb 10.4 L Hct 32.9 L MCV 76.7 L MCH 24.3 L MCHC 31.7 L RDW 19.7 H Plt Count 329 MPV 7.9 Absolute Neuts (auto) 9.0 H Neutrophils % 92.1 H Neutrophils % (Manual) Band Neutrophils % Lymphocytes % 1.8 L Lymphocytes % (Manual) Monocytes % 6.0 Monocytes % (Manual) Eosinophils % 0.0 Eosinophils % (Manual) Basophils % 0.1 D Basophils % (Manual) Myelocytes % (Man) Promyelocytes % (Man) Blast Cells % (Manual) Nucleated RBC % 0 Metamyelocytes Hypochromia Toxic Granulation Platelet Estimate Platelet Comment Polychromasia Poikilocytosis Anisocytosis Microcytosis Macrocytosis Spherocytes Target Cells Tear Drop Cells Ovalocytes [place] Cells PTT (Actin FS) 49.1 H Anticoagulation Therapy Puncture Site ABG pH ABG pCO2 at Pt Temp ABG pO2 at Pt Temp ABG HCO3 ABG O2 Sat (Measured) ABG O2 Content ABG Base Excess Adrian Test O2 Delivery Device Oxygen Flow Rate Vent Mode Vent Rate Mechanical Rate PEEP Pressure Support Vent Sodium Potassium Chloride Carbon Dioxide Anion Gap BUN Creatinine Est GFR (CKD-EPI)AfAm Est GFR (CKD-EPI)NonAf POC Glucometer Random Glucose Calcium Phosphorus Magnesium Total Bilirubin AST ALT Alkaline Phosphatase Total Protein Albumin Random Vancomycin 10.8 L 05/03/19 05/03/19 05/03/19 06:10 08:50 10:18 WBC RBC Hgb Hct MCV MCH MCHC RDW Plt Count MPV Absolute Neuts (auto) Neutrophils % Neutrophils % (Manual) Band Neutrophils % Lymphocytes % Lymphocytes % (Manual) Monocytes % Monocytes % (Manual) Eosinophils % Eosinophils % (Manual) Basophils % Basophils % (Manual) Myelocytes % (Man) Promyelocytes % (Man) Blast Cells % (Manual) Nucleated RBC % Metamyelocytes Hypochromia Toxic Granulation Platelet Estimate Platelet Comment Polychromasia Poikilocytosis Anisocytosis Microcytosis Macrocytosis Spherocytes Target Cells Tear Drop Cells Ovalocytes [place] Cells PTT (Actin FS) Anticoagulation Therapy Puncture Site ABG pH ABG pCO2 at Pt Temp ABG pO2 at Pt Temp ABG HCO3 ABG O2 Sat (Measured) ABG O2 Content ABG Base Excess Adrian Test O2 Delivery Device Oxygen Flow Rate Vent Mode Vent Rate Mechanical Rate PEEP Pressure Support Vent Sodium 138 Potassium 3.6 Chloride 89 L Carbon Dioxide 42 H Anion Gap 7 L BUN 49.8 H Creatinine 1.5 H Est GFR (CKD-EPI)AfAm 61.59 Est GFR (CKD-EPI)NonAf 53.14 POC Glucometer 204 177 Random Glucose 194 H Calcium 9.0 Phosphorus 5.2 H Magnesium 1.7 L Total Bilirubin 0.5 AST 9 L ALT 27 Alkaline Phosphatase 97 Total Protein 6.1 L Albumin 2.5 L Random Vancomycin Active Medications Generic Name Dose Route Start Last Admin Trade Name Freq PRN Reason Stop Dose Admin Albuterol/Ipratropium 1 amp 04/30/19 16:00 05/03/19 08:10 Duoneb - NEB 1 amp RQID ELISSA Administration Chlorhexidine Gluconate 1 applic 04/30/19 22:00 05/02/19 21:27 Hibiclens For Decolonization - TP 1 applic HS ELISSA Administration Heparin Sodium (Porcine) 1,000 unit 04/30/19 10:40 05/03/19 09:17 Heparin - IVPUSH 1,000 unit PRN PRN Administration Heparin Heparin Sodium (Porcine) 5,000 unit 04/30/19 10:40 05/02/19 10:07 Heparin - IVPUSH 5,000 unit PRN PRN Administration Heparin Vasopressin 50 units/ Sodium 100 mls @ 4 mls/hr 04/30/19 09:30 05/03/19 10:08 Chloride IVPB Not Given ASDIR ELISSA Protocol 2 UNITS/HR Propofol 1,000,000 mcg in 100 mls @ 4.082 mls/hr 04/30/19 10:15 05/03/19 11: 07 Diprivan - IVPB 40 mcg/kg/min TITR ELISSA 32.659 mls/hr Administration Protocol 5 MCG/KG/MIN Heparin Sodium (Porcine) 50, 500 mls @ 10 mls/hr 04/30/19 10:45 05/03/19 09: 16 000 unit/ Sodium Chloride IV 1,500 unit/hr TITR ELISSA 15 mls/hr Titration Protocol 1,000 UNIT/HR Vecuronium [place] 50 mg/ 250 mls @ 40.82 mls/hr 04/30/19 12:15 05/03/19 03: 32 Dextrose IVPB 1 mcg/kg/min TITR ELISSA 40.82 mls/hr Infusion 1 MCG/KG/MIN Azithromycin 500 mg in 250 mls @ 250 mls/hr 04/30/19 12:30 05/03/19 10:08 Zithromax 500mg Ivpb (Pre-Docked) IVPB 250 mls/hr DAILY ELISSA Administration Norepinephrine Bitartrate 8, 500 mls @ 18.75 mls/hr 04/30/19 14:00 05/02/19 15:25 000 mcg/ Dextrose/Sodium IV Not Given Chloride TITR ELISSA Protocol 5 MCG/MIN Piperacillin Sod/Tazobactam 50 mls @ 100 mls/hr 05/01/19 18:00 05/03/19 09:34 Sod 3.375 gm/ Dextrose IVPB 100 mls/hr Q8H-IV ELISSA Administration Protocol Fentanyl 500 mcg/ Dextrose 100 mls @ 10 mls/hr 05/01/19 12:45 05/03/19 10:06 IVPB 100 mcg/hr TITR ELISSA 20 mls/hr Administration Protocol 50 MCG/HR Furosemide 100 mg/ Sodium 100 mls @ 10 mls/hr 05/01/19 13:52 05/03/19 10:07 Chloride IVPB 10 mls/hr ASDIR ELISSA Administration Insulin Human Regular 100 100 mls @ 14.34 mls/hr 05/02/19 12:00 05/03/19 11: 10 units/ Sodium Chloride IVPB 0.02 units/kg/hr TITR ELISSA 4 mls/hr Administration Protocol 0.1 UNITS/KG/HR Methylprednisolone Sodium Succinate 40 mg 05/02/19 14:05 05/03/19 09:40 Solu-Medrol - IVPUSH 40 mg Q8H-IV ELISSA Administration Metoprolol Tartrate 5 mg 04/30/19 08:57 05/03/19 03:13 Lopressor Injection - IVPUSH 5 mg Q4H PRN Administration TACHYCARDIA Metoprolol Tartrate 25 mg 05/02/19 13:45 05/03/19 09:32 Lopressor - PO 25 mg BID ELISSA Administration Mupirocin 1 applic 04/30/19 10:00 05/03/19 10:07 Bactroban Ointment (For Decolonization) - NS 05/05/19 09:59 1 applic BID ELISSA Administration Pantoprazole Sodium 40 mg 05/01/19 10:00 05/03/19 09:33 Protonix Iv IVPUSH 40 mg DAILY ELISSA Administration ASSESSMENT/PLAN: Discussed with ICU nurse practitioner, remains tachycardic pending nephrology, per station to determine course with the Lasix. He is largely net negative. Sugars are improved. Pending transfer to tertiary care center. Problems include: Acute mixed respiratory failure Septic shock, improving and weaning off of vasopressor Rule out ARDS Paroxysmal A. fib versus a flutter with RVR Acute on chronic diastolic heart failure RYNE on CKD with hyperkalemia, improved, nephrology following Uncontrolled diabetes mellitus with hyperglycemia, will need to start basal versus drip. Goal sugar less than 180 Anemia Noncompliance to medical therapy Visit type - Emergency Visit Emergency Visit: Yes ED Registration Date: 04/30/19 Care time: The patient presented to the Emergency Department on the above date and was hospitalized for further evaluation of their emergent condition. - New Patient This patient is new to me today: No - Critical Care Critical Care patient: No
[2019-05-03 13:04] LABS: OVALOCYTE 1+; TEAR DROP CELLS 1+
--- NOTE | 2019-05-03 13:39 | PN ---
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, Physician History of Present Illness: Remains intubated, sedated, paralyzed on ventilator with AC Mode of vent, 80% FiO2 / PEEP 12 and weaned off vasopressin, rate-controlled aflutter, undergoing diuresis. - Current Medication List Current Medications: Active Medications Albuterol/Ipratropium (Duoneb -) 1 amp NEB RQID ELISSA Last Admin: 05/03/19 11:48 Dose: 1 amp Chlorhexidine Gluconate (Hibiclens For Decolonization -) 1 applic TP HS ELISSA Last Admin: 05/02/19 21:27 Dose: 1 applic Heparin Sodium (Porcine) (Heparin -) 1,000 unit IVPUSH PRN PRN PRN Reason: Heparin Last Admin: 05/03/19 09:17 Dose: 1,000 unit Heparin Sodium (Porcine) (Heparin -) 5,000 unit IVPUSH PRN PRN PRN Reason: Heparin Last Admin: 05/02/19 10:07 Dose: 5,000 unit Vasopressin 50 units/ Sodium (Chloride) 100 mls @ 4 mls/hr IVPB ASDIR ELISSA; Protocol Last Admin: 05/03/19 10:08 Dose: Not Given Propofol (Diprivan -) 1,000,000 mcg in 100 mls @ 4.082 mls/hr IVPB TITR ELISSA; Protocol Last Admin: 05/03/19 11:07 Dose: 40 mcg/kg/min, 32.659 mls/hr Heparin Sodium (Porcine) 50, (000 unit/ Sodium Chloride) 500 mls @ 10 mls/hr IV TITR ELISSA; Protocol Last Titration: 05/03/19 09:16 Dose: 1,500 unit/hr, 15 mls/hr Vecuronium [place] 50 mg/ (Dextrose) 250 mls @ 40.82 mls/hr IVPB TITR ELISSA Last Infusion: 05/03/19 03:32 Dose: 1 mcg/kg/min, 40.82 mls/hr Azithromycin (Zithromax 500mg Ivpb (Pre-Docked)) 500 mg in 250 mls @ 250 mls/ hr IVPB DAILY ELISSA Last Admin: 05/03/19 10:08 Dose: 250 mls/hr Norepinephrine Bitartrate 8, 000 mcg/ Dextrose/Sodium Chloride 500 mls @ 18.75 mls/hr IV TITR ELISSA; Protocol Last Admin: 05/02/19 15:25 Dose: Not Given Piperacillin Sod/Tazobactam (Sod 3.375 gm/ Dextrose) 50 mls @ 100 mls/hr IVPB Q8H-IV ELISSA; Protocol Last Admin: 05/03/19 09:34 Dose: 100 mls/hr Fentanyl 500 mcg/ Dextrose 100 mls @ 10 mls/hr IVPB TITR ELISSA; Protocol Last Admin: 05/03/19 10:06 Dose: 100 mcg/hr, 20 mls/hr Furosemide 100 mg/ Sodium (Chloride) 100 mls @ 10 mls/hr IVPB ASDIR ELISSA Last Admin: 05/03/19 10:07 Dose: 10 mls/hr Insulin Human Regular 100 (units/ Sodium Chloride) 100 mls @ 14.34 mls/hr IVPB TITR [facility]; Protocol Last Titration: 05/03/19 12:43 Dose: 0.04 units/kg/hr, 6 mls/hr Methylprednisolone Sodium Succinate (Solu-Medrol -) 40 mg IVPUSH Q8H-IV ELISSA Last Admin: 05/03/19 09:40 Dose: 40 mg Metoprolol Tartrate (Lopressor Injection -) 5 mg IVPUSH Q4H PRN PRN Reason: TACHYCARDIA Last Admin: 05/03/19 03:13 Dose: 5 mg Metoprolol Tartrate (Lopressor -) 25 mg PO BID [facility] Last Admin: 05/03/19 09:32 Dose: 25 mg Mupirocin (Bactroban Ointment (For Decolonization) -) 1 applic NS BID [facility] Stop: 05/05/19 09:59 Last Admin: 05/03/19 10:07 Dose: 1 applic Pantoprazole Sodium (Protonix Iv) 40 mg IVPUSH DAILY [facility] Last Admin: 05/03/19 09:33 Dose: 40 mg - Objective Vital Signs: Vital Signs Temperature 97.5 F L 05/03/19 13:00 Pulse Rate 95 H 05/03/19 13:00 Respiratory Rate 36 H 05/03/19 13:00 Blood Pressure 129/78 05/03/19 13:00 O2 Sat by Pulse Oximetry (%) 98 05/03/19 12:22 Cardiovascular: Yes: Regular Rate and Rhythm Respiratory: Yes: Intubated, Mechanically Ventilated, Rhonchi Gastrointestinal: Yes: Normal Bowel Sounds, Soft, Abdomen, Obese Genitourinary: Yes: [place] Present Edema: No Labs: CBC, BMP 05/03/19 06:10 05/03/19 06:10 INR, PTT INR 1.07 (0.83-1.09) 05/01/19 05:25 - ....Imaging Chest X-ray: Report Reviewed (Congestion) Problem List - Problems (1) Pneumonia Code(s): J18.9 - PNEUMONIA, UNSPECIFIED ORGANISM Qualifiers: Pneumonia type: due to unspecified organism (2) Septic shock Code(s): A41.9 - SEPSIS, UNSPECIFIED ORGANISM; R65.21 - SEVERE SEPSIS WITH SEPTIC SHOCK (3) Acute hypercapnic respiratory failure due to obstructive sleep apnea Code(s): J96.02 - ACUTE RESPIRATORY FAILURE WITH HYPERCAPNIA; G47.33 - OBSTRUCTIVE SLEEP APNEA (ADULT) (PEDIATRIC) (4) Acute decompensated heart failure Code(s): I50.9 - HEART FAILURE, UNSPECIFIED (5) Acute renal failure Code(s): N17.9 - ACUTE KIDNEY FAILURE, UNSPECIFIED Qualifiers: Acute renal failure type: unspecified Qualified Code(s): N17.9 - Acute kidney failure, unspecified (6) Hyperkalemia Code(s): E87.5 - HYPERKALEMIA (7) Atrial fibrillation and flutter Code(s): I48.91 - UNSPECIFIED ATRIAL FIBRILLATION; I48.92 - UNSPECIFIED ATRIAL FLUTTER (8) Sarcoidosis of other sites Code(s): D86.89 - SARCOIDOSIS OF OTHER SITES (9) Type 2 diabetes mellitus Code(s): E11.9 - TYPE 2 DIABETES MELLITUS WITHOUT COMPLICATIONS Qualifiers: Diabetes mellitus alf insulin use: without alf use Diabetes mellitus complication detail: with chronic kidney disease Chronic kidney disease stage: stage 2 (mild) Assessment/Plan 05/01/2019 Normal LV and RV size and fxn, tr TR 03/14/2019 Normal LV size and fxn, no thrombus ADEEL, mild-mod dilated and HK RV, tr MR, mild-mod TR, tr ID, trace pericardial effusion 1. Acute hypoxic and hypercapneic respiratory failure on mechanical ventilation 2. Pneumonia, post septic shock, Gram Positive Bacteremia, r/o ARDS 3. Sarcoidosis confirmed by skin biopsy, r/o cardiac involvement 2. OSAS nonadherent to cpap 3. Paroxysmal Aflutter/Afib with RVR 4. Acute on chronic diastolic heart failure 5. Acute on CKD with hyperkalemia resolving 6. Type 2 DM 7. Anemia P:1. Empiric abx f/u C&S, IV steroid taper with GI protection, BD 2. Remains off vasopressin gtt 3. Vent management per ABG, ARDS protocol and paralyzed 4. Continue rate-control with oral and IV Lopressor as needed, heparin gtt with eliquis held for now 5. Aggressive IV diuresis on Lasix gtt with monitor diuretic response, renal fxn and electrolytes 6. Resume lisinopril 10 qd once renal function and hyperkalemia stabilizes 7. Thank you for consultative opportunity, he f/u with Dr. Genaro Davila ( cardiology at [place]), cardiac PET or MRI to exclude cardiac involvement in sarcoidosis as outpatient
[2019-05-03] MEDS ORDERED: FUROSEMIDE 40 MG/4 ML INJECTABLE VIAL IVPUSH ONE (13:45)
[2019-05-03] MEDS: NOREPINEPHRINE BITARTRATE IV SCH (15:07)
[2019-05-03] MEDS: NORMAL SALINE IV SCH (15:07)
[2019-05-03] MEDS: DEXTROSE 5% IV SCH (15:07)
[2019-05-03 15:19] LABS: BLOOD UREA NITROGEN 48.1 mg/dL (7-18); CALCIUM 8.6 mg/dL (8.5-10.1); CREATININE 1.4 mg/dL (0.55-1.3); POTASSIUM 3.4 mmol/L (3.5-5.1)
[2019-05-03 16:17] LABS: ALLENS TEST POSITIVE; ARTERIAL BLD GAS O2 SATURATION 89.4 % (95-98); ARTERIAL BLOOD GAS BASE EXCESS 15.7 meq/l (-2-2); ARTERIAL BLOOD GAS PCO2 57.7 mmHg (35-45); ARTERIAL BLOOD GAS PO2 59.9 mmHg (80-100); ARTERIAL BLOOD GAS pH 7.47 (7.35-7.45)
[2019-05-03] MEDS: VECURONIUM BROMIDE 50 MG in DEXTROSE 5%-WATER - 250 ML IVPB SCH (17:18)
[2019-05-03] MEDS: HEPARIN IV SCH (17:35)
[2019-05-03] MEDS: SODIUM CHLORIDE IV SCH (17:35)
[2019-05-03] MEDS: POTASSIUM CHLORIDE 10 MEQ PREMIX IVPB (POTASSIUM RIDER) IVPB SCH ×4 (17:41→21:06)
[2019-05-03] MEDS ORDERED: FUROSEMIDE INJECTION 100 MG in SODIUM CHLORIDE 90 ML IVPB SCH (18:27)
[2019-05-03] MEDS ORDERED: PROPOFOL 1,000,000 MCG/100 ML VIAL ONE (18:51)
[2019-05-03] MEDS: CHLORHEXIDINE GLUCONATE 4% CLEANSER FOR DECOLONIZATION TP SCH (21:22)
[2019-05-03] MEDS ORDERED: MAGNESIUM SULF 50% (8.12 MEQ/2 ML-1 GM VIAL) IVPB ONE (23:08)
[2019-05-04] MEDS: PROPOFOL 1,000,000 MCG/100 ML VIAL IVPB SCH ×8 (00:04→22:45)
[2019-05-04] MEDS ORDERED: POTASSIUM CHLORIDE 20 MEQ PREMIX IVPB 100 ML IVPB ONE ×2 (00:18→19:04)
[2019-05-04] MEDS: METOPROLOL TARTRATE 25 MG TABLET (FP) PO SCH ×3 (00:39→21:06)
[2019-05-04] MEDS ORDERED: VASOPRESSIN 20 UNITS/ML VIAL IV ONE ×2 (02:14→14:31)
[2019-05-04] MEDS ORDERED: NOREPINEPHRINE BITARTRATE 4 MG/4 ML ML IV ONE (02:33)
[2019-05-04] MEDS ORDERED: fentaNYL CITRATE 250 MCG/5 ML VIAL ONE ×4 (02:41→20:31)
[2019-05-04] MEDS: FENTANYL INJECTION 500 MCG in DEXTROSE 5%-WATER - 90 ML IVPB SCH ×4 (02:54→20:43)
[2019-05-04] MEDS ORDERED: DEXTROSE 5%-WATER - 50 ML IVPB ONE ×3 (03:34→17:10)
[2019-05-04] MEDS ORDERED: PIPERACILLIN/TAZOBACTAM 3.375 GM VIAL IVPB ONE ×3 (03:34→17:10)
[2019-05-04] MEDS: PIPERACILLIN/TAZOB 3.375 GM 3.375 GM in DEXTROSE 5%-WATER - 50 ML IVPB SCH ×3 (04:02→17:12)
[2019-05-04] MEDS: methylPREDNISolone NA SUCC 40 MG/1 ML VIAL IVPUSH SCH ×3 (04:02→17:15)
[2019-05-04 06:09] LABS: HEMATOCRIT 34.6 % (35.4-49); HEMOGLOBIN 10.6 GM/dL (11.7-16.9); MCH 23.9 pg (25.7-33.7); MCHC 30.7 g/dl (32.0-35.9); MEAN CELL VOLUME 78.1 fl (80-96); MEAN PLT VOLUME 7.9 fl (7.5-11.1); PLATELET COUNT 348 K/MM3 (134-434); RBC 4.44 M/mm3 (4.00-5.60); RDW 19.9 % (11.9-15.9); WHITE BLOOD COUNT 10.2 K/mm3 (4.0-10.0)
[2019-05-04] MEDS ORDERED: PROPOFOL 1,000,000 MCG/100 ML VIAL ONE (06:28)
[2019-05-04 06:38] LABS: BLOOD UREA NITROGEN 48.2 mg/dL (7-18); CALCIUM 8.7 mg/dL (8.5-10.1); CREATININE 1.4 mg/dL (0.55-1.3); MAGNESIUM 2.2 mg/dL (1.8-2.4); PHOSPHOROUS 5.2 mg/dL (2.5-4.9); POTASSIUM 3.8 mmol/L (3.5-5.1)
[2019-05-04 06:46] LABS: ARTERIAL BLD GAS O2 SATURATION 94.3 % (95-98); ARTERIAL BLOOD GAS BASE EXCESS 13.3 meq/l (-2-2); ARTERIAL BLOOD GAS PCO2 54.7 mmHg (35-45); ARTERIAL BLOOD GAS PO2 76.3 mmHg (80-100); ARTERIAL BLOOD GAS pH 7.47 (7.35-7.45)
[2019-05-04] MEDS: ALBUTEROL SO4 2.5/IPRATROPIUM 0.5 INH SOL 3 ML VIAL.NEB. NEB SCH ×3 (08:00→21:00)
--- NOTE | 2019-05-04 08:40 | PN ---
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 (short form) - Note 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: RENAL pt is intubated and sedated vecuronium is on hold has bilat air entry Last Vital Signs Temp Pulse Resp BP Pulse Ox 97.6 F 74 36 H 133/91 96 05/04/19 05:00 05/04/19 07:48 05/04/19 07:44 05/04/19 07:48 05/04/19 07:44 cvs s1s2 rr abd soft, obese ext +edema neuro sedated CBC, BMP 05/04/19 05:20 05/04/19 05:20 Current Medications Generic Name Dose Route Start Last Admin Trade Name Freq PRN Reason Stop Dose Admin Albuterol/Ipratropium 1 amp 04/30/19 16:00 05/03/19 21:05 Duoneb - NEB 1 amp RQID ELISSA Administration Chlorhexidine Gluconate 1 applic 04/30/19 22:00 05/03/19 21:22 Hibiclens For Decolonization - TP 1 applic HS ELISSA Administration Heparin Sodium (Porcine) 1,000 unit 04/30/19 10:40 05/03/19 09:17 Heparin - IVPUSH 1,000 unit PRN PRN Administration Heparin Heparin Sodium (Porcine) 5,000 unit 04/30/19 10:40 05/02/19 10:07 Heparin - IVPUSH 5,000 unit PRN PRN Administration Heparin Vasopressin 50 units/ Sodium 100 mls @ 4 mls/hr 04/30/19 09:30 05/04/19 07:48 Chloride IVPB 0 units/hr ASDIR ELISSA 0 mls/hr Titration Protocol 2 UNITS/HR Propofol 1,000,000 mcg in 100 mls @ 4.082 mls/hr 04/30/19 10:15 05/04/19 06: 56 Diprivan - IVPB 40 mcg/kg/min TITR ELISSA 32.659 mls/hr Administration Protocol 5 MCG/KG/MIN Heparin Sodium (Porcine) 50, 500 mls @ 10 mls/hr 04/30/19 10:45 05/03/19 17: 35 000 unit/ Sodium Chloride IV 1,500 unit/hr TITR ELISSA 15 mls/hr Administration Protocol 1,000 UNIT/HR Vecuronium [place] 50 mg/ 250 mls @ 40.82 mls/hr 04/30/19 12:15 05/04/19 02: 31 Dextrose IVPB 0 mcg/kg/min TITR ELISSA 0 mls/hr Infusion 1 MCG/KG/MIN Azithromycin 500 mg in 250 mls @ 250 mls/hr 04/30/19 12:30 05/03/19 10:08 Zithromax 500mg Ivpb (Pre-Docked) IVPB 250 mls/hr DAILY ELISSA Administration Norepinephrine Bitartrate 8, 500 mls @ 18.75 mls/hr 04/30/19 14:00 05/03/19 15:07 000 mcg/ Dextrose/Sodium IV Not Given Chloride TITR ELISSA Protocol 5 MCG/MIN Piperacillin Sod/Tazobactam 50 mls @ 100 mls/hr 05/01/19 18:00 05/04/19 04:02 Sod 3.375 gm/ Dextrose IVPB 100 mls/hr Q8H-IV ELISSA Administration Protocol Fentanyl 500 mcg/ Dextrose 100 mls @ 10 mls/hr 05/01/19 12:45 05/04/19 02:54 IVPB 100 mcg/hr TITR ELISSA 20 mls/hr Administration Protocol 50 MCG/HR Insulin Human Regular 100 100 mls @ 14.34 mls/hr 05/02/19 12:00 05/04/19 06: 50 units/ Sodium Chloride IVPB 0.02 units/kg/hr TITR ELISSA 3 mls/hr Titration Protocol 0.1 UNITS/KG/HR Furosemide 100 mg/ Sodium 100 mls @ 5 mls/hr 05/03/19 18:27 05/03/19 22:40 Chloride IVPB 0 mls/hr ASDIR ELISSA Infusion Methylprednisolone Sodium Succinate 40 mg 05/02/19 14:05 05/04/19 04:02 Solu-Medrol - IVPUSH 40 mg Q8H-IV ELISSA Administration Metoprolol Tartrate 5 mg 04/30/19 08:57 05/03/19 03:13 Lopressor Injection - IVPUSH 5 mg Q4H PRN Administration TACHYCARDIA Metoprolol Tartrate 25 mg 05/02/19 13:45 05/04/19 00:39 Lopressor - PO 25 mg BID ELISSA Administration Mupirocin 1 applic 04/30/19 10:00 05/03/19 21:23 Bactroban Ointment (For Decolonization) - NS 05/05/19 09:59 1 applic BID ELISSA Administration Pantoprazole Sodium 40 mg 05/01/19 10:00 05/03/19 09:33 Protonix Iv IVPUSH 40 mg DAILY ELISSA Administration Impression 1. RYNE 2. hyperkalemia 3. resp failure requiring intubation 4. resp acidosis 5. dm 6. hx htn 7. sleep apnea 8. obesity 9. hx non compliance 10. chf 11. sarcoid 12. volume overload 13 post hypercapneic alkalosis Plan - cont lasix, diamox trial- 250mg daily - monitor urine output - vent support - pulm input appreciated - pending transfer to tertiary care center [facility]
[2019-05-04] MEDS: PANTOPRAZOLE SODIUM 40 MG VIAL IVPUSH SCH (09:06)
[2019-05-04] MEDS: AZITHROMYCIN IVPB 500 MG/250 ML BAG IVPB SCH (09:19)
--- NOTE | 2019-05-04 09:22 | PN ---
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 (short form) - Note 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: remains intubated and sedated off paralytic no ET secretions Fio2 80% being diuresed Vital Signs Period Temp Pulse Resp BP Sys/[place] Pulse Ox Last 24 Hr 97.5 F-97.8 F 73-125 36-36 85-142/51-91 94-98 cor-rrr lungs decreased bs at bases abd soft,nt ext +edema CBC, BMP 05/04/19 05:20 05/04/19 05:20 Microbiology 04/30/19 05:05 Blood - Peripheral Venous Blood Culture - Final Staphylococcus Coagulase Neg 04/30/19 05:05 Blood - Peripheral Venous Blood Culture - Preliminary Staphylococcus Epidermidis Pending Organism 05/01/19 11:09 Blood - Peripheral Venous Blood Culture - Preliminary NO GROWTH OBTAINED AFTER 48 HOURS, INCUBATION TO CONTINUE FOR 3 DAYS. 05/01/19 09:00 Blood - Peripheral Venous Blood Culture - Preliminary NO GROWTH OBTAINED AFTER 48 HOURS, INCUBATION TO CONTINUE FOR 3 DAYS. 04/30/19 19:45 Urine For Antigen Detection Legionella Antigen - Final 04/30/19 19:45 Urine For Antigen Detection Streptococcus pneumoniae Antigen (M - Final 04/30/19 05:25 Urine - Urine - Catheterized Urine Culture - Final NO GROWTH OBTAINED cxray not done vanco trough 13.9 a/p respiratory failure cannot r/o pneumonia SCN bacteremia- repeat blood cultures sent- on vancomycin by level juan ziyad acute on chronic diastolic heart failure zosyn/zithromax to continue day 4 redose vancomycin today f/[place] cxray
--- NOTE | 2019-05-04 09:43 | PN ---
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 (short form) - Note 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: 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s Pulm/CCM Pt seen and examined in the ICU. Remains intubated and sedated. Paralysis off. Overnight episode of A-flutter with RVR to 130's. Hypotensive with Metoprolol dose. Vasopressin drip restarted. Contraction alkalosis. Received diamox. Lasix drip held. Net neg about 3L. CXR c/f persistent lt lung white out. OBJECTIVE: Active Medications Albuterol/Ipratropium (Duoneb -) 1 amp NEB RQID ELISSA Last Admin: 05/03/19 21:05 Dose: 1 amp Chlorhexidine Gluconate (Hibiclens For Decolonization -) 1 applic TP HS ELISSA Last Admin: 05/03/19 21:22 Dose: 1 applic Heparin Sodium (Porcine) (Heparin -) 1,000 unit IVPUSH PRN PRN PRN Reason: Heparin Last Admin: 05/03/19 09:17 Dose: 1,000 unit Heparin Sodium (Porcine) (Heparin -) 5,000 unit IVPUSH PRN PRN PRN Reason: Heparin Last Admin: 05/02/19 10:07 Dose: 5,000 unit Vasopressin 50 units/ Sodium (Chloride) 100 mls @ 4 mls/hr IVPB ASDIR ELISSA; Protocol Last Titration: 05/04/19 08:41 Dose: 1 units/hr, 2 mls/hr Propofol (Diprivan -) 1,000,000 mcg in 100 mls @ 4.082 mls/hr IVPB TITR ELISSA; Protocol Last Admin: 05/04/19 06:56 Dose: 40 mcg/kg/min, 32.659 mls/hr Heparin Sodium (Porcine) 50, (000 unit/ Sodium Chloride) 500 mls @ 10 mls/hr IV TITR ELISSA; Protocol Last Admin: 05/03/19 17:35 Dose: 1,500 unit/hr, 15 mls/hr Vecuronium [place] 50 mg/ (Dextrose) 250 mls @ 40.82 mls/hr IVPB TITR ELISSA Last Infusion: 05/04/19 02:31 Dose: 0 mcg/kg/min, 0 mls/hr Azithromycin (Zithromax 500mg Ivpb (Pre-Docked)) 500 mg in 250 mls @ 250 mls/ hr IVPB DAILY ELISSA Last Admin: 05/04/19 09:19 Dose: 250 mls/hr Norepinephrine Bitartrate 8, 000 mcg/ Dextrose/Sodium Chloride 500 mls @ 18.75 mls/hr IV TITR ELISSA; Protocol Last Admin: 05/03/19 15:07 Dose: Not Given Piperacillin Sod/Tazobactam (Sod 3.375 gm/ Dextrose) 50 mls @ 100 mls/hr IVPB Q8H-IV ELISSA; Protocol Last Admin: 05/04/19 09:09 Dose: 100 mls/hr Fentanyl 500 mcg/ Dextrose 100 mls @ 10 mls/hr IVPB TITR ELISSA; Protocol Last Admin: 05/04/19 09:04 Dose: 100 mcg/hr, 20 mls/hr Insulin Human Regular 100 (units/ Sodium Chloride) 100 mls @ 14.34 mls/hr IVPB TITR ELISSA; Protocol Last Titration: 05/04/19 08:43 Dose: 0.01 units/kg/hr, 2 mls/hr Furosemide 100 mg/ Sodium (Chloride) 100 mls @ 5 mls/hr IVPB ASDIR ELISSA Last Infusion: 05/03/19 22:40 Dose: 0 mls/hr Vancomycin HCl 1,250 mg/ (Dextrose) 250 mls @ 250 mls/2 hr IVPB ONCE ONE; Protocol Stop: 05/04/19 11:59 Acetazolamide Sodium 500 mg/ (Dextrose) 50 mls @ 100 mls/hr IVPB ONCE ONE Stop: 05/04/19 10:00 Methylprednisolone Sodium Succinate (Solu-Medrol -) 40 mg IVPUSH Q8H-IV ELISSA Last Admin: 05/04/19 09:06 Dose: 40 mg Metoprolol Tartrate (Lopressor Injection -) 5 mg IVPUSH Q4H PRN PRN Reason: TACHYCARDIA Last Admin: 05/03/19 03:13 Dose: 5 mg Metoprolol Tartrate (Lopressor -) 25 mg PO BID [facility] Last Admin: 05/04/19 09:19 Dose: 25 mg Mupirocin (Bactroban Ointment (For Decolonization) -) 1 applic NS BID [facility] Stop: 05/05/19 09:59 Last Admin: 05/03/19 21:23 Dose: 1 applic Pantoprazole Sodium (Protonix Iv) 40 mg IVPUSH DAILY [facility] Last Admin: 05/04/19 09:06 Dose: 40 mg Vital Signs Period Temp Pulse Resp BP Sys/[place] Pulse Ox Last 24 Hr 97.5 F-97.8 F 73-125 36-36 85-142/51-91 94-98 Intake & Output 05/01/19 05/02/19 05/03/19 05/04/19 23:59 23:59 23:59 23:59 Intake Total 2096 3876.5 3101 1564 Output Total 4650 8400 5400 3200 Balance -2554 -4523.5 -2299 -1636 Weight 141.884 kg 143.335 kg 138.572 kg 137.257 kg Gen: intubated, sedated Heart: tachy, irreg, s1S2 Lung: bilateral rhonchi, diminished Lt lung sounds Abd: soft, nontender Ext:+1 edema improved CBC,CMP WBC 10.2 K/mm3 (4.0-10.0) H 05/04/19 05:20 RBC 4.44 M/mm3 (4.00-5.60) 05/04/19 05:20 Hgb 10.6 GM/dL (11.7-16.9) L 05/04/19 05:20 Hct 34.6 % (35.4-49) L 05/04/19 05:20 MCV 78.1 fl (80-96) L 05/04/19 05:20 MCH 23.9 pg (25.7-33.7) L 05/04/19 05:20 MCHC 30.7 g/dl (32.0-35.9) L 05/04/19 05:20 RDW 19.9 % (11.9-15.9) H 05/04/19 05:20 Plt Count 348 K/MM3 (134-434) 05/04/19 05:20 MPV 7.9 fl (7.5-11.1) 05/04/19 05:20 Absolute Neuts (auto) 9.0 K/mm3 (1.5-8.0) H 05/03/19 06:10 Total Counted 100 05/03/19 06:10 Neutrophils % 92.1 % (42.8-82.8) H 05/03/19 06:10 Neutrophils % (Manual) 92.0 % (42.8-82.8) H 05/03/19 06:10 Band Neutrophils % 4.0 % 05/03/19 06:10 Lymphocytes % 1.8 % (8-40) L 05/03/19 06:10 Lymphocytes % (Manual) 1.0 % (8-40) L D 05/03/19 06:10 Monocytes % 6.0 % (3.8-10.2) 05/03/19 06:10 Monocytes % (Manual) 3 % (3.8-10.2) L 05/03/19 06:10 Eosinophils % 0.0 % (0-4.5) 05/03/19 06:10 Eosinophils % (Manual) 0.0 % (0-4.5) 05/02/19 05:30 Basophils % 0.1 % (0-2.0) D 05/03/19 06:10 Basophils % (Manual) 0.0 % (0-2.0) 05/02/19 05:30 Myelocytes % (Man) 1 % (0-2) D 05/02/19 05:30 Promyelocytes % (Man) 0 % (0-2) 05/02/19 05:30 Blast Cells % (Manual) 0 % (0-0) 05/02/19 05:30 Nucleated RBC % 0 % (0-0) 05/03/19 06:10 Metamyelocytes 0 % (0-2) 05/02/19 05:30 Hypochromia 1+ 05/02/19 05:30 Toxic Granulation 1+ 05/02/19 05:30 Platelet Estimate Normal 05/02/19 05:30 Platelet Comment Present 05/02/19 05:30 Polychromasia 1+ 05/02/19 05:30 Poikilocytosis 1+ 05/02/19 05:30 Basophilic Stippling 1+ 05/01/19 05:25 Anisocytosis 1+ 05/02/19 05:30 Microcytosis 1+ 05/02/19 05:30 Macrocytosis 0 05/02/19 05:30 Spherocytes 1+ 05/02/19 05:30 Target Cells 1+ 05/02/19 05:30 Tear Drop Cells 1+ 05/03/19 06:10 Ovalocytes 1+ 05/03/19 06:10 Stomatocytes 1+ 04/30/19 05:05 [place] Cells 1+ 05/03/19 06:10 Sodium 141 mmol/L (136-145) 05/04/19 05:20 Potassium 3.8 mmol/L (3.5-5.1) 05/04/19 05:20 Chloride 96 mmol/L (98-107) L 05/04/19 05:20 Carbon Dioxide 39 mmol/L (21-32) H 05/04/19 05:20 Anion Gap 6 MMOL/L (8-16) L 05/04/19 05:20 BUN 48.2 mg/dL (7-18) H 05/04/19 05:20 Creatinine 1.4 mg/dL (0.55-1.3) H 05/04/19 05:20 Est GFR (CKD-EPI)AfAm 66.95 05/04/19 05:20 Est GFR (CKD-EPI)NonAf 57.76 05/04/19 05:20 POC Glucometer 155 UNITS (80-120) 05/04/19 08:37 Random Glucose 137 mg/dL (74-106) H 05/04/19 05:20 Hemoglobin A1c % 8.9 % (4.2-6.3) H 05/01/19 05:25 Lactic Acid 1.2 mmol/L (0.4-2.0) 04/30/19 12:45 Calcium 8.7 mg/dL (8.5-10.1) 05/04/19 05:20 Phosphorus 5.2 mg/dL (2.5-4.9) H 05/04/19 05:20 Magnesium 2.2 mg/dL (1.8-2.4) 05/04/19 05:20 Iron 26 ug/dL (50-175) L 05/01/19 05:25 TIBC 389 ug/dL (250-450) 05/01/19 05:25 Iron Saturation 6 % (17.5-39) L 05/01/19 05:25 Unsaturated IBC 363 ug/dL (200-275) H 05/01/19 05:25 Ferritin 36.6 ng/ml (8-388) 05/01/19 05:25 Total Bilirubin 0.5 mg/dL (0.2-1) 05/03/19 06:10 AST 9 U/L (15-37) L 05/03/19 06:10 ALT 27 U/L (13-61) 05/03/19 06:10 Alkaline Phosphatase 97 U/L (45-117) 05/03/19 06:10 Creatine Kinase 82 U/L (26-308) 05/01/19 05:25 CK-MB (CK-2) 4.7 ng/mL (0.5-3.6) H 04/30/19 05:05 Troponin I 0.02 ng/ml (0.00-0.05) 05/01/19 05:25 B-Natriuretic Peptide 1639.4 pg/ml (5-125) H 04/30/19 05:05 Total Protein 6.1 g/dl (6.4-8.2) L 05/03/19 06:10 Albumin 2.5 g/dl (3.4-5.0) L 05/03/19 06:10 ASSESSMENT AND PLAN: Acute Hypoxic and Hypercapneic Respiratory Failure Pneumonia Gram Positive Bacteremia Septic Shock Volume Overload r/o ARDS Lactic Acidosis Hyperkalemia Acute Kidney Injury Atrial Flutter with RVR HTN DM Anemia - Wean FiO2 as tolerated / Lung protective ventilation , maintain high PEEP given ateletatic L base - Aggressive pulm toilet - Consider bronch - f/u cultures -Cont antib as per ID - keep Pplat <30 - continue sedation for vent synchrony - Diamox for 1-2L negative fluid balance -Wean off pressor; goal MAP>65 - Monitor urine output, creatinine - Monitor lytes - Medrol - Inhaled bronchodilators - Rate control - Continue anticoagulation - DVT/GI prophylaxis - continue ICU monitoring - prognosis guarded Chasidy Bashir, ACNP Pulm/[facility]
[2019-05-04] MEDS ORDERED: VANCOMYCIN HCL 1,250 MG in DEXTROSE 5%-WATER - 250 ML IVPB ONE (10:00)
[2019-05-04] MEDS: MUPIROCIN 2% TOPICAL OINTMENT FOR DECOLONIZATION NS SCH ×2 (10:19→21:05)
[2019-05-04] MEDS: FUROSEMIDE INJECTION 100 MG in DEXTROSE 5%-WATER - 90 ML IVPB SCH (11:00)
[2019-05-04] MEDS ORDERED: PT OWN MED DRAWER 7, Y5N ONE (12:55)
--- NOTE | 2019-05-04 13:11 | PN ---
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, Physician History of Present Illness: Remains intubated, sedated, on ventilator with AC Mode of vent, 80% FiO2 / PEEP 12 and placed back on vasopressin gtt, aflutter with RVR, undergoing diuresis. - Current Medication List Current Medications: Active Medications Albuterol/Ipratropium (Duoneb -) 1 amp NEB RQID ELISSA Last Admin: 05/04/19 12:11 Dose: 1 amp Chlorhexidine Gluconate (Hibiclens For Decolonization -) 1 applic TP HS ELISSA Last Admin: 05/03/19 21:22 Dose: 1 applic Heparin Sodium (Porcine) (Heparin -) 1,000 unit IVPUSH PRN PRN PRN Reason: Heparin Last Admin: 05/03/19 09:17 Dose: 1,000 unit Heparin Sodium (Porcine) (Heparin -) 5,000 unit IVPUSH PRN PRN PRN Reason: Heparin Last Admin: 05/02/19 10:07 Dose: 5,000 unit Vasopressin 50 units/ Sodium (Chloride) 100 mls @ 4 mls/hr IVPB ASDIR ELISSA; Protocol Last Titration: 05/04/19 10:26 Dose: 2.4 units/hr, 4.8 mls/hr Propofol (Diprivan -) 1,000,000 mcg in 100 mls @ 4.082 mls/hr IVPB TITR ELISSA; Protocol Last Admin: 05/04/19 12:20 Dose: 40 mcg/kg/min, 32.659 mls/hr Heparin Sodium (Porcine) 50, (000 unit/ Sodium Chloride) 500 mls @ 10 mls/hr IV TITR ELISSA; Protocol Last Admin: 05/03/19 17:35 Dose: 1,500 unit/hr, 15 mls/hr Vecuronium [place] 50 mg/ (Dextrose) 250 mls @ 40.82 mls/hr IVPB TITR ELISSA Last Infusion: 05/04/19 02:31 Dose: 0 mcg/kg/min, 0 mls/hr Azithromycin (Zithromax 500mg Ivpb (Pre-Docked)) 500 mg in 250 mls @ 250 mls/ hr IVPB DAILY ELISSA Last Admin: 05/04/19 09:19 Dose: 250 mls/hr Norepinephrine Bitartrate 8, 000 mcg/ Dextrose/Sodium Chloride 500 mls @ 18.75 mls/hr IV TITR ELISSA; Protocol Last Admin: 05/03/19 15:07 Dose: Not Given Piperacillin Sod/Tazobactam (Sod 3.375 gm/ Dextrose) 50 mls @ 100 mls/hr IVPB Q8H-IV ELISSA; Protocol Last Admin: 05/04/19 09:09 Dose: 100 mls/hr Fentanyl 500 mcg/ Dextrose 100 mls @ 10 mls/hr IVPB TITR ELISSA; Protocol Last Admin: 05/04/19 09:04 Dose: 100 mcg/hr, 20 mls/hr Insulin Human Regular 100 (units/ Sodium Chloride) 100 mls @ 14.34 mls/hr IVPB TITR ELISSA; Protocol Last Titration: 05/04/19 12:18 Dose: 0.02 units/kg/hr, 4 mls/hr Furosemide 100 mg/ Dextrose 100 mls @ 5 mls/hr IVPB TITR ELISSA; Protocol Stop: 05/05/19 23:59 Last Admin: 05/04/19 11:00 Dose: 5 mg/hr, 5 mls/hr Methylprednisolone Sodium Succinate (Solu-Medrol -) 40 mg IVPUSH Q8H-IV [facility] Last Admin: 05/04/19 09:06 Dose: 40 mg Metoprolol Tartrate (Lopressor Injection -) 5 mg IVPUSH Q4H PRN PRN Reason: TACHYCARDIA Last Admin: 05/03/19 03:13 Dose: 5 mg Metoprolol Tartrate (Lopressor -) 25 mg PO BID [facility] Last Admin: 05/04/19 09:19 Dose: 25 mg Mupirocin (Bactroban Ointment (For Decolonization) -) 1 applic NS BID [facility] Stop: 05/05/19 09:59 Last Admin: 05/04/19 10:19 Dose: 1 applic Pantoprazole Sodium (Protonix Iv) 40 mg IVPUSH DAILY [facility] Last Admin: 05/04/19 09:06 Dose: 40 mg - Objective Vital Signs: Vital Signs Temperature 98.1 F 05/04/19 10:10 Pulse Rate 74 05/04/19 12:00 Respiratory Rate 36 H 05/04/19 12:10 Blood Pressure 127/86 05/04/19 12:00 O2 Sat by Pulse Oximetry (%) 92 L 05/04/19 11:33 Constitutional: Yes: No Distress, Calm Neck: Yes: Supple Cardiovascular: Yes: Tachycardia, Pulse Irregular Respiratory: Yes: Intubated, Mechanically Ventilated, Rhonchi Gastrointestinal: Yes: Normal Bowel Sounds, Soft, Abdomen, Obese Genitourinary: Yes: [place] Present Edema: Yes Labs: CBC, BMP 05/04/19 05:20 05/04/19 05:20 INR, PTT INR 1.07 (0.83-1.09) 05/01/19 05:25 - ....Imaging Chest X-ray: Report Reviewed (Left white-out) EKG: Report Reviewed (Tele: [facility] @ 110s) Problem List - Problems (1) Pneumonia Code(s): J18.9 - PNEUMONIA, UNSPECIFIED ORGANISM Qualifiers: Pneumonia type: due to unspecified organism (2) Septic shock Code(s): A41.9 - SEPSIS, UNSPECIFIED ORGANISM; R65.21 - SEVERE SEPSIS WITH SEPTIC SHOCK (3) Acute hypercapnic respiratory failure due to obstructive sleep apnea Code(s): J96.02 - ACUTE RESPIRATORY FAILURE WITH HYPERCAPNIA; G47.33 - OBSTRUCTIVE SLEEP APNEA (ADULT) (PEDIATRIC) (4) Acute decompensated heart failure Code(s): I50.9 - HEART FAILURE, UNSPECIFIED (5) Acute renal failure Code(s): N17.9 - ACUTE KIDNEY FAILURE, UNSPECIFIED Qualifiers: Acute renal failure type: unspecified Qualified Code(s): N17.9 - Acute kidney failure, unspecified (6) Hyperkalemia Code(s): E87.5 - HYPERKALEMIA (7) Atrial fibrillation and flutter Code(s): I48.91 - UNSPECIFIED ATRIAL FIBRILLATION; I48.92 - UNSPECIFIED ATRIAL FLUTTER (8) Sarcoidosis of other sites Code(s): D86.89 - SARCOIDOSIS OF OTHER SITES (9) Type 2 diabetes mellitus Code(s): E11.9 - TYPE 2 DIABETES MELLITUS WITHOUT COMPLICATIONS Qualifiers: Diabetes mellitus [facility] insulin use: without [facility] use Diabetes mellitus complication detail: with chronic kidney disease Chronic kidney disease stage: stage 2 (mild) Assessment/Plan 05/01/2019 Normal LV and RV size and fxn, tr TR 03/14/2019 Normal LV size and fxn, no thrombus ADEEL, mild-mod dilated and HK RV, tr MR, mild-mod TR, tr [place], trace pericardial effusion 1. Acute hypoxic and hypercapneic respiratory failure on mechanical ventilation 2. Pneumonia, post septic shock, Gram Positive Bacteremia, r/o ARDS 3. Sarcoidosis confirmed by skin biopsy, r/o cardiac involvement 2. OSAS nonadherent to cpap 3. Paroxysmal Aflutter/Afib with RVR 4. Acute on chronic diastolic heart failure 5. Acute on CKD with hyperkalemia resolving 6. Type 2 DM 7. Anemia 8. Contraction alkalosis P:1. Empiric abx f/u C&S, IV steroid taper with GI protection, BD 2. Wean vasopressin gtt for MAP>65 mmHg 3. Vent management per ABG, ARDS protocol and off paralysis 4. Continue rate-control with oral and IV Lopressor as needed, heparin gtt with eliquis held for now 5. Decreased Lasix gtt @ 5/hr with monitor diuretic response, renal fxn and electrolytes 6. Resume lisinopril 10 qd once renal function and hyperkalemia stabilizes 7. He f/u with Dr. Genaro Davila (cardiology at [facility]), cardiac PET or MRI to exclude cardiac involvement in sarcoidosis as outpatient
[2019-05-04] MEDS: INSULIN REGULAR 100 UNITS in SODIUM CHLORIDE 99 ML IVPB SCH ×2 (14:00→14:27)
[2019-05-04] MEDS: SODIUM CHLORIDE IV SCH (14:26)
[2019-05-04] MEDS: HEPARIN IV SCH (14:26)
[2019-05-04] MEDS: NOREPINEPHRINE BITARTRATE IV SCH (14:28)
[2019-05-04] MEDS: DEXTROSE 5% IV SCH (14:28)
[2019-05-04] MEDS: NORMAL SALINE IV SCH (14:28)
[2019-05-04] MEDS: VECURONIUM BROMIDE 50 MG in DEXTROSE 5%-WATER - 250 ML IVPB SCH (14:29)
--- NOTE | 2019-05-04 14:56 | PN ---
Physical Exam: SUBJECTIVE: Patient seen and examined. No acute events overnight. Spoke with patient's regarding current prognosis. Informed by nurse that there is still a chance that patient may be transferred to [place]. OBJECTIVE: Vital Signs Period Temp Pulse Resp BP Sys/[place] Pulse Ox Last 24 Hr 97.6 F-98.4 F 73-125 36-36 69-142/41-91 92-98 GENERAL: intubated, sedated HEAD: Normal with no signs of trauma. EYES: PERRL ENT: MMM NECK: Trachea midline, supple, Left IJ in place LUNGS: Mechanically ventilated, coarse breath sounds bilaterally, tachypnic HEART: tachycardic ABDOMEN: obese, soft, nontender, decreased bowel sounds EXTREMITIES: 2+ pulses, warm, well-perfused. 1+ non pitting edema bilateral lower extremities NEUROLOGICAL: poor gag reflex, normal muscle tone SKIN: Warm, dry, normal turgor Laboratory Results - last 24 hr 05/03/19 05/03/19 05/03/19 14:30 14:30 15:34 WBC RBC Hgb Hct MCV MCH MCHC RDW Plt Count MPV PTT (Actin FS) 65.5 H Anticoagulation Therapy Puncture Site ABG pH ABG pCO2 at Pt Temp ABG pO2 at Pt Temp ABG HCO3 ABG O2 Sat (Measured) ABG O2 Content ABG Base Excess Adrian Test O2 Delivery Device Oxygen Flow Rate Vent Mode Vent Rate Mechanical Rate PEEP Pressure Support Vent Sodium 137 Potassium 3.4 L Chloride 91 L Carbon Dioxide 40 H Anion Gap 6 L BUN 48.1 H Creatinine 1.4 H Est GFR (CKD-EPI)AfAm 66.95 Est GFR (CKD-EPI)NonAf 57.76 POC Glucometer 174 Random Glucose 204 H Calcium 8.6 Phosphorus Magnesium Random Vancomycin 05/03/19 05/03/19 05/03/19 15:55 17:13 18:42 WBC RBC Hgb Hct MCV MCH MCHC RDW Plt Count MPV PTT (Actin FS) Anticoagulation Therapy No Result Required. Puncture Site Arterial line ABG pH 7.47 H ABG pCO2 at Pt Temp 57.7 H ABG pO2 at Pt Temp 59.9 L ABG HCO3 41.8 H ABG O2 Sat (Measured) 89.4 L ABG O2 Content 14.1 ABG Base Excess 15.7 H Adrian Test Positive O2 Delivery Device Esprit Oxygen Flow Rate 80 Vent Mode A/c Vent Rate 36 Mechanical Rate No Result Required. PEEP 12.0 Pressure Support Vent 325 Sodium Potassium Chloride Carbon Dioxide Anion Gap BUN Creatinine Est GFR (CKD-EPI)AfAm Est GFR (CKD-EPI)NonAf POC Glucometer 151 162 Random Glucose Calcium Phosphorus Magnesium Random Vancomycin 05/03/19 05/03/19 05/03/19 20:29 21:13 21:46 WBC RBC Hgb Hct MCV MCH MCHC RDW Plt Count MPV PTT (Actin FS) Anticoagulation Therapy Puncture Site ABG pH ABG pCO2 at Pt Temp ABG pO2 at Pt Temp ABG HCO3 ABG O2 Sat (Measured) ABG O2 Content ABG Base Excess Adrian Test O2 Delivery Device Oxygen Flow Rate Vent Mode Vent Rate Mechanical Rate PEEP Pressure Support Vent Sodium Potassium Chloride Carbon Dioxide Anion Gap BUN Creatinine Est GFR (CKD-EPI)AfAm Est GFR (CKD-EPI)NonAf POC Glucometer 131 141 130 Random Glucose Calcium Phosphorus Magnesium Random Vancomycin 05/03/19 05/03/19 05/04/19 22:51 23:20 00:18 WBC RBC Hgb Hct MCV MCH MCHC RDW Plt Count MPV PTT (Actin FS) Anticoagulation Therapy Puncture Site ABG pH ABG pCO2 at Pt Temp ABG pO2 at Pt Temp ABG HCO3 ABG O2 Sat (Measured) ABG O2 Content ABG Base Excess Adrian Test O2 Delivery Device Oxygen Flow Rate Vent Mode Vent Rate Mechanical Rate PEEP Pressure Support Vent Sodium Potassium Chloride Carbon Dioxide Anion Gap BUN Creatinine Est GFR (CKD-EPI)AfAm Est GFR (CKD-EPI)NonAf POC Glucometer 145 195 179 Random Glucose Calcium Phosphorus Magnesium Random Vancomycin 05/04/19 05/04/19 05/04/19 01:24 02:34 03:31 WBC RBC Hgb Hct MCV MCH MCHC RDW Plt Count MPV PTT (Actin FS) Anticoagulation Therapy Puncture Site ABG pH ABG pCO2 at Pt Temp ABG pO2 at Pt Temp ABG HCO3 ABG O2 Sat (Measured) ABG O2 Content ABG Base Excess Adrian Test O2 Delivery Device Oxygen Flow Rate Vent Mode Vent Rate Mechanical Rate PEEP Pressure Support Vent Sodium Potassium Chloride Carbon Dioxide Anion Gap BUN Creatinine Est GFR (CKD-EPI)AfAm Est GFR (CKD-EPI)NonAf POC Glucometer 183 165 165 Random Glucose Calcium Phosphorus Magnesium Random Vancomycin 05/04/19 05/04/19 05/04/19 04:44 05:09 05:20 WBC RBC Hgb Hct MCV MCH MCHC RDW Plt Count MPV PTT (Actin FS) Anticoagulation Therapy Puncture Site ABG pH ABG pCO2 at Pt Temp ABG pO2 at Pt Temp ABG HCO3 ABG O2 Sat (Measured) ABG O2 Content ABG Base Excess Adrian Test O2 Delivery Device Oxygen Flow Rate Vent Mode Vent Rate Mechanical Rate PEEP Pressure Support Vent Sodium Potassium Chloride Carbon Dioxide Anion Gap BUN Creatinine Est GFR (CKD-EPI)AfAm Est GFR (CKD-EPI)NonAf POC Glucometer 120 135 Random Glucose Calcium Phosphorus Magnesium Random Vancomycin 13.9 L 05/04/19 05/04/19 05/04/19 05:20 05:20 05:20 WBC 10.2 H RBC 4.44 Hgb 10.6 L Hct 34.6 L MCV 78.1 L MCH 23.9 L MCHC 30.7 L RDW 19.9 H Plt Count 348 MPV 7.9 PTT (Actin FS) 64.8 H Anticoagulation Therapy Puncture Site ABG pH ABG pCO2 at Pt Temp ABG pO2 at Pt Temp ABG HCO3 ABG O2 Sat (Measured) ABG O2 Content ABG Base Excess Adrian Test O2 Delivery Device Oxygen Flow Rate Vent Mode Vent Rate Mechanical Rate PEEP Pressure Support Vent Sodium 141 Potassium 3.8 Chloride 96 L Carbon Dioxide 39 H Anion Gap 6 L BUN 48.2 H Creatinine 1.4 H Est GFR (CKD-EPI)AfAm 66.95 Est GFR (CKD-EPI)NonAf 57.76 POC Glucometer Random Glucose 137 H Calcium 8.7 Phosphorus 5.2 H Magnesium 2.2 Random Vancomycin 05/04/19 05/04/19 05/04/19 06:30 06:47 08:37 WBC RBC Hgb Hct MCV MCH MCHC RDW Plt Count MPV PTT (Actin FS) Anticoagulation Therapy No Result Required. Puncture Site Arterial line ABG pH 7.47 H ABG pCO2 at Pt Temp 54.7 H ABG pO2 at Pt Temp 76.3 L ABG HCO3 38.8 H ABG O2 Sat (Measured) 94.3 L ABG O2 Content 13.9 ABG Base Excess 13.3 H Adrian Test No Result Required. O2 Delivery Device Mech vent Oxygen Flow Rate 80% Vent Mode A/c Vent Rate 36 Mechanical Rate Yes PEEP 12.0 Pressure Support Vent 325 Sodium Potassium Chloride Carbon Dioxide Anion Gap BUN Creatinine Est GFR (CKD-EPI)AfAm Est GFR (CKD-EPI)NonAf POC Glucometer 178 155 Random Glucose Calcium Phosphorus Magnesium Random Vancomycin 05/04/19 05/04/19 05/04/19 10:45 12:14 14:23 WBC RBC Hgb Hct MCV MCH MCHC RDW Plt Count MPV PTT (Actin FS) Anticoagulation Therapy Puncture Site ABG pH ABG pCO2 at Pt Temp ABG pO2 at Pt Temp ABG HCO3 ABG O2 Sat (Measured) ABG O2 Content ABG Base Excess Adrian Test O2 Delivery Device Oxygen Flow Rate Vent Mode Vent Rate Mechanical Rate PEEP Pressure Support Vent Sodium Potassium Chloride Carbon Dioxide Anion Gap BUN Creatinine Est GFR (CKD-EPI)AfAm Est GFR (CKD-EPI)NonAf POC Glucometer 183 184 196 Random Glucose Calcium Phosphorus Magnesium Random Vancomycin Active Medications Generic Name Dose Route Start Last Admin Trade Name Freq PRN Reason Stop Dose Admin Albuterol/Ipratropium 1 amp 04/30/19 16:00 05/04/19 12:11 Duoneb - NEB 1 amp RQID ELISSA Administration Chlorhexidine Gluconate 1 applic 04/30/19 22:00 05/03/19 21:22 Hibiclens For Decolonization - TP 1 applic HS ELISSA Administration Heparin Sodium (Porcine) 1,000 unit 04/30/19 10:40 05/03/19 09:17 Heparin - IVPUSH 1,000 unit PRN PRN Administration Heparin Heparin Sodium (Porcine) 5,000 unit 04/30/19 10:40 05/02/19 10:07 Heparin - IVPUSH 5,000 unit PRN PRN Administration Heparin Vasopressin 50 units/ Sodium 100 mls @ 4 mls/hr 04/30/19 09:30 05/04/19 10:26 Chloride IVPB 2.4 units/hr ASDIR ELISSA 4.8 mls/hr Titration Protocol 2 UNITS/HR Propofol 1,000,000 mcg in 100 mls @ 4.082 mls/hr 04/30/19 10:15 05/04/19 12: 20 Diprivan - IVPB 40 mcg/kg/min TITR ELISSA 32.659 mls/hr Administration Protocol 5 MCG/KG/MIN Heparin Sodium (Porcine) 50, 500 mls @ 10 mls/hr 04/30/19 10:45 05/04/19 14: 26 000 unit/ Sodium Chloride IV 1,500 unit/hr TITR ELISSA 15 mls/hr Administration Protocol 1,000 UNIT/HR Vecuronium [place] 50 mg/ 250 mls @ 40.82 mls/hr 04/30/19 12:15 05/04/19 14: 29 Dextrose IVPB Not Given TITR ELISSA 1 MCG/KG/MIN Azithromycin 500 mg in 250 mls @ 250 mls/hr 04/30/19 12:30 05/04/19 09:19 Zithromax 500mg Ivpb (Pre-Docked) IVPB 250 mls/hr DAILY ELISSA Administration Norepinephrine Bitartrate 8, 500 mls @ 18.75 mls/hr 04/30/19 14:00 05/04/19 14:28 000 mcg/ Dextrose/Sodium IV Not Given Chloride TITR ELISSA Protocol 5 MCG/MIN Piperacillin Sod/Tazobactam 50 mls @ 100 mls/hr 05/01/19 18:00 05/04/19 09:09 Sod 3.375 gm/ Dextrose IVPB 100 mls/hr Q8H-IV ELISSA Administration Protocol Fentanyl 500 mcg/ Dextrose 100 mls @ 10 mls/hr 05/01/19 12:45 05/04/19 09:04 IVPB 100 mcg/hr TITR ELISSA 20 mls/hr Administration Protocol 50 MCG/HR Insulin Human Regular 100 100 mls @ 14.34 mls/hr 05/02/19 12:00 05/04/19 14: 28 units/ Sodium Chloride IVPB 0.03 units/kg/hr TITR ELISSA 5 mls/hr Titration Protocol 0.1 UNITS/KG/HR Furosemide 100 mg/ Dextrose 100 mls @ 5 mls/hr 05/04/19 11:00 05/04/19 11:00 IVPB 05/05/19 23:59 5 mg/hr TITR ELISSA 5 mls/hr Administration Protocol 5 MG/HR Methylprednisolone Sodium Succinate 40 mg 05/02/19 14:05 05/04/19 09:06 Solu-Medrol - IVPUSH 40 mg Q8H-IV ELISSA Administration Metoprolol Tartrate 5 mg 04/30/19 08:57 05/03/19 03:13 Lopressor Injection - IVPUSH 5 mg Q4H PRN Administration TACHYCARDIA Metoprolol Tartrate 25 mg 05/02/19 13:45 05/04/19 09:19 Lopressor - PO 25 mg BID ELISSA Administration Mupirocin 1 applic 04/30/19 10:00 05/04/19 10:19 Bactroban Ointment (For Decolonization) - NS 05/05/19 09:59 1 applic BID ELISSA Administration Pantoprazole Sodium 40 mg 05/01/19 10:00 05/04/19 09:06 Protonix Iv IVPUSH 40 mg DAILY ELISSA Administration ASSESSMENT/PLAN: 53 y/o/m with PMHx of DM2, HFpEF(last EF: 45-50%), 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 #Acute Hypoxic and Hypercapneic Respiratory Failure/ EMMY - Pt. intubated and Sedated - sedated on Propofol and fentanyl - Vecuronium discontinued overnight - Most recent ABG - pH 7.47, pCO2 - 54.7, pO2 76.3 - Pulm consulted - Duonebs RQID - Solumedrol 40mg Q8h IV - Follow CXRs - most recent CXR showing complete opacification of left hemithorax - Azithromycin 500mg QD, Zosyn IV Q8hr - ID consulted (Dr. Garcia) - Positive blood culture bottle with staph coag neg organism in both bottles and second bottle with pending organism. Repeat blood cultures negative to date #HFpEF vs. Cardiogenic shock - Lasix drip discontinued - Strict Is & Os, daily weights - ECHO difficult to assess, unremarkable - BNP: 1634 - Trop negative x2 - Cardiology Consult (Dr. Encinas) - started on vasopressin again for pressor support #Atrial Flutter - Lopressor 25mg PO BID - Lopressor 5mg IVpush Q4hr PRN for rate control - Heparin drip #RYNE on CKD w/ Hyperkalemia - BUN/Cr 48.2/1.4 - Nephrology Consulted (Dr. Kelley) - Likely secondary to volume overload. Pt. likely has CKD given risk factors of DM2(uncontrolled glucose) and Heart Failure - Hyperkalemia resolved, no indication for HD at this time - lasix held for today, Diamox given x1 - continue to monitor BMP - Hold Lisinopril #DM2 - BGM ACHS - ISS ACHS - Insulin drip started due to poor sugar control #FEN - no IVF - monitor electrolytes. K+ normalized - NPO. Consider starting NG tube feeds if intubated for extended period of time #DVT Ppx. - Heparin drip - Protonix #Disposition - Continue ICU monitoring - Possible transfer to [facility] Visit type - Emergency Visit Emergency Visit: Yes ED Registration Date: 04/30/19 Care time: The patient presented to the Emergency Department on the above date and was hospitalized for further evaluation of their emergent condition. - New Patient This patient is new to me today: No - Critical Care Critical Care patient: Yes Total Critical Care Time (in minutes): 36 Critical Care Statement: The care of this patient involved high complexity decision making to prevent further life threatening deterioration of the patient 's condition and/or to evaluate & treat vital organ system(s) failure or risk of failure. ATTENDING PHYSICIAN STATEMENT I saw and evaluated the patient. I reviewed the resident's note and discussed the case with the resident. I agree with the resident's findings and plan as documented. SUBJECTIVE: OBJECTIVE: ASSESSMENT AND PLAN:
[2019-05-04 15:57] LABS: N-TERMINAL BNP 781.3 pg/ml (5-125)
[2019-05-04 17:52] LABS: ARTERIAL BLD GAS O2 SATURATION 96.5 % (95-98); ARTERIAL BLOOD GAS BASE EXCESS 9.8 meq/l (-2-2); ARTERIAL BLOOD GAS PCO2 54.1 mmHg (35-45); ARTERIAL BLOOD GAS PO2 102 mmHg (80-100); ARTERIAL BLOOD GAS pH 7.44 (7.35-7.45)
--- NOTE | 2019-05-04 17:58 | PN ---
Teaching Attending Note Name of Resident: Giuseppe Rm ATTENDING PHYSICIAN STATEMENT I saw and evaluated the patient. I reviewed the resident's note and discussed the case with the resident. I agree with the resident's findings and plan as documented. Seen and examined; please see resident note for further historical information. I personally verified all valadez historical information and exam findings. Personally interpreted all imaging and diagnostics and reviewed appropriate consults. I reviewed all labs and vital signs as per resident note and EMR as documented. I agree with the above assessment and plan unless supplemented by myself in the following. Cannot complete review of systems due to the patient's clinical status VS, labs, imaging reviewed Intubated and sedated on ventillator resting in bed, vent settings per flowsheet ET Tube in place; IV access noted with no apparent surrounding cellulitis RRR s1/2 no mgr Normal muscle tone, moves all 5 extremities with normal apparent strength Neck is supple, trachea midline, no fernanda LN Lungs CTAB with sym expansion NT ND +BS no fernanda organomegaly CN2-12 wnl; no FND but limited given clinical circumstances. NC AT EOMI PERRLA Not agitated, cannot complete full psych assessment No skin breakdown or rashes noted Assessment and plan: Patient remains in the intensive care unit intubated sedated on ventilator with 80% FiO2 and 12 of PEEP on vasopressin with a flutter noted. Weaning from pressors weaning from the vent per [facility] [employer] protocol per critical care team. Cardiology decreased the Lasix drip to 5/h and we continue to monitor his diuretic response renal function and electrolytes. Ideally his lisinopril will be resumed and eventually will require cardiac PET/MRI to rule out cardiac sarcoidosis. Noted ICU nurse practitioner gave a dose of Diamox for contraction alkalosis. Patient was placed on vancomycin by level, Zosyn, and Zithromax as pneumonia/pneumonitis cannot be ruled out. Vancomycin is being redosed today. Nephrology continues to follow the patient. Continue the pending transfer to tertiary care center. Full Code Family updated by resident team; informed no additional questions for hospitalist attending.
[2019-05-04 18:32] LABS: BLOOD UREA NITROGEN 51.4 mg/dL (7-18); CALCIUM 8.7 mg/dL (8.5-10.1); CREATININE 1.5 mg/dL (0.55-1.3); MAGNESIUM 1.9 mg/dL (1.8-2.4); PHOSPHOROUS 5.4 mg/dL (2.5-4.9); POTASSIUM 3.5 mmol/L (3.5-5.1)
[2019-05-04] MEDS ORDERED: KCL 20 MEQ PREMIX BAG 100 ML IVPB ONE (20:30)
[2019-05-04] MEDS: CHLORHEXIDINE GLUCONATE 4% CLEANSER FOR DECOLONIZATION TP SCH (21:06)
[2019-05-05] MEDS: PROPOFOL 1,000,000 MCG/100 ML VIAL IVPB SCH ×7 (00:37→23:17)
[2019-05-05] MEDS: VASOPRESSIN 50 UNITS in SODIUM CHLORIDE 97.5 ML IVPB SCH ×2 (00:37→10:25)
[2019-05-05] MEDS ORDERED: PIPERACILLIN/TAZOBACTAM 3.375 GM VIAL IVPB ONE ×3 (01:16→15:33)
[2019-05-05] MEDS ORDERED: DEXTROSE 5%-WATER - 50 ML IVPB ONE ×3 (01:16→15:33)
[2019-05-05] MEDS: PIPERACILLIN/TAZOB 3.375 GM 3.375 GM in DEXTROSE 5%-WATER - 50 ML IVPB SCH ×3 (01:23→17:07)
[2019-05-05] MEDS: methylPREDNISolone NA SUCC 40 MG/1 ML VIAL IVPUSH SCH ×3 (01:24→17:07)
[2019-05-05] MEDS ORDERED: fentaNYL CITRATE 250 MCG/5 ML VIAL ONE ×4 (02:34→23:08)
[2019-05-05] MEDS: FENTANYL INJECTION 500 MCG in DEXTROSE 5%-WATER - 90 ML IVPB SCH ×5 (03:00→23:17)
[2019-05-05] MEDS: METOPROLOL TARTRATE 5 MG/5 ML VIAL IVPUSH PRN (06:38)
[2019-05-05 06:58] LABS: HEMATOCRIT 34.5 % (35.4-49); HEMOGLOBIN 10.6 GM/dL (11.7-16.9); MCH 24.3 pg (25.7-33.7); MCHC 30.8 g/dl (32.0-35.9); MEAN CELL VOLUME 78.8 fl (80-96); MEAN PLT VOLUME 8.2 fl (7.5-11.1); PLATELET COUNT 342 K/MM3 (134-434); RBC 4.38 M/mm3 (4.00-5.60); RDW 19.9 % (11.9-15.9); WHITE BLOOD COUNT 8.9 K/mm3 (4.0-10.0)
[2019-05-05 07:07] LABS: INR 1.09 (0.83-1.09); PROTHROMBIN TIME (PATIENT) 12.9 SEC (9.7-13.0)
[2019-05-05] MEDS: NOREPINEPHRINE BITARTRATE IV SCH ×2 (07:07→15:50)
[2019-05-05] MEDS: NORMAL SALINE IV SCH ×2 (07:07→15:50)
[2019-05-05] MEDS: DEXTROSE 5% IV SCH ×2 (07:07→15:50)
[2019-05-05 07:10] LABS: ACTIVATED PTT 66.9 SECONDS (25.2-36.5)
[2019-05-05 07:17] LABS: ARTERIAL BLOOD GAS BASE EXCESS 7.4 meq/l (-2-2); ARTERIAL BLOOD GAS PCO2 58.1 mmHg (35-45); ARTERIAL BLOOD GAS PO2 86.2 mmHg (80-100); ARTERIAL BLOOD GAS pH 7.38 (7.35-7.45)
[2019-05-05] MEDS: ALBUTEROL SO4 2.5/IPRATROPIUM 0.5 INH SOL 3 ML VIAL.NEB. NEB SCH ×4 (08:00→20:51)
[2019-05-05 08:48] LABS: ALBUMIN 2.6 g/dl (3.4-5.0); ALK PHOS 80 U/L (45-117); ANION GAP 9 MMOL/L (8-16); BILIRUBIN,DIRECT 0.2 mg/dL (0.0-0.2); BILIRUBIN,TOTAL 0.5 mg/dL (0.2-1); BLOOD UREA NITROGEN 58.6 mg/dL (7-18); CALCIUM 8.9 mg/dL (8.5-10.1); CHLORIDE 98 mmol/L (98-107); CO2 34 mmol/L (21-32); CREATININE 1.6 mg/dL (0.55-1.3); GLUCOSE,RANDOM 157 mg/dL (74-106); PHOSPHOROUS 6.2 mg/dL (2.5-4.9); POTASSIUM 3.9 mmol/L (3.5-5.1); SGOT/AST 21 U/L (15-37); SGPT/ALT 29 U/L (13-61); SODIUM 141 mmol/L (136-145); TOT PROT 5.9 g/dl (6.4-8.2)
--- NOTE | 2019-05-05 09:10 | PN ---
Teaching Attending Note Name of Resident: Malachi Oliva ATTENDING PHYSICIAN STATEMENT I saw and evaluated the patient. I reviewed the resident's note and discussed the case with the resident. I agree with the resident's findings and plan as documented. ATTENDING PHYSICIAN STATEMENT I saw and evaluated the patient. I reviewed the resident's note and discussed the case with the resident. I agree with the resident's findings and plan as documented. Seen and examined; please see resident note for further historical information. I personally verified all valadez historical information and exam findings. Personally interpreted all imaging and diagnostics and reviewed appropriate consults. I reviewed all labs and vital signs as per resident note and EMR as documented. I agree with the above assessment and plan unless supplemented by myself in the following. Cannot complete review of systems due to the patient's clinical status VS, labs, imaging reviewed Intubated and sedated on ventillator resting in bed, vent settings per flowsheet ET Tube in place; IV access noted with no apparent surrounding cellulitis RRR s1/2 no mgr Normal muscle tone, moves all 5 extremities with normal apparent strength Neck is supple, trachea midline, no fernanda LN Lungs CTAB with sym expansion NT ND +BS no fernanda organomegaly CN2-12 wnl; no FND but limited given clinical circumstances. NC AT EOMI PERRLA Not agitated, cannot complete full psych assessment No skin breakdown or rashes noted Assessment and plan: Patient remains in the intensive care unit intubated sedated on ventilator with 80% FiO2 and 12 of PEEP on vasopressin with a flutter noted. Weaning from pressors weaning from the vent per [employer] protocol per critical care team. Cardiology decreased the Lasix drip to 5/h and we continue to monitor his diuretic response renal function and electrolytes. Ideally his lisinopril will be resumed and eventually will require cardiac PET/MRI to rule out cardiac sarcoidosis. Noted ICU nurse practitioner gave a dose of Diamox for contraction alkalosis. Patient was placed on vancomycin by dena, Marry, and Mikala as pneumonia/pneumonitis cannot be ruled out. Vancomycin is being redosed today. Nephrology continues to follow the patient. Continue the pending transfer to tertiary care center.
[2019-05-05] MEDS: PANTOPRAZOLE SODIUM 40 MG VIAL IVPUSH SCH (10:27)
[2019-05-05] MEDS: METOPROLOL TARTRATE 25 MG TABLET (FP) PO SCH ×2 (10:31→21:27)
--- NOTE | 2019-05-05 11:12 | PN ---
Physical Exam: SUBJECTIVE: Patient seen and examined. Remains intubated, sedated,off vecuronium. Adequate urine output. BP and HR continue to be labile.on levo and vaso. pending transfer to [facility]. OBJECTIVE: Vital Signs Period Temp Pulse Resp BP Sys/[place] Pulse Ox Last 24 Hr 97.8 F-99.3 F 74-151 36-36 84-155/47-92 92-100 GENERAL: INTUBATED. HEAD: Normal with no signs of trauma. LUNGS: diffuse rale improved HEART: irregular rate and rhythm and tachy, S1, S2 without murmur, rub or gallop. ABDOMEN: Soft, nontender, distended and obese EXTREMITIES: 2+ pulses, warm, well-perfused,1+ edema. NEUROLOGICAL: intubated and sedated SKIN: Warm, dry, lesion on middle finger on right hand Laboratory Results - last 24 hr 05/04/19 05/04/19 05/04/19 05:20 12:14 14:23 WBC RBC Hgb Hct MCV MCH MCHC RDW Plt Count MPV PT with INR INR PTT (Actin FS) Anticoagulation Therapy Puncture Site ABG pH ABG pCO2 at Pt Temp ABG pO2 at Pt Temp ABG HCO3 ABG O2 Sat (Measured) ABG O2 Content ABG Base Excess Adrian Test O2 Delivery Device Oxygen Flow Rate Vent Mode Vent Rate Mechanical Rate PEEP Pressure Support Vent Sodium 141 Potassium 3.8 Chloride 96 L Carbon Dioxide 39 H Anion Gap 6 L BUN 48.2 H Creatinine 1.4 H Est GFR (CKD-EPI)AfAm 66.95 Est GFR (CKD-EPI)NonAf 57.76 POC Glucometer 184 196 Random Glucose 137 H Calcium 8.7 Phosphorus 5.2 H Magnesium 2.2 Total Bilirubin Direct Bilirubin AST ALT Alkaline Phosphatase Creatine Kinase Troponin I B-Natriuretic Peptide 781.3 H Total Protein Albumin Random Vancomycin 05/04/19 05/04/19 05/04/19 16:25 17:35 17:35 WBC RBC Hgb Hct MCV MCH MCHC RDW Plt Count MPV PT with INR INR PTT (Actin FS) Anticoagulation Therapy No Result Required. Puncture Site Arterial line ABG pH 7.44 ABG pCO2 at Pt Temp 54.1 H ABG pO2 at Pt Temp 102 H ABG HCO3 35.9 H ABG O2 Sat (Measured) 96.5 ABG O2 Content 20.5 ABG Base Excess 9.8 H Adrian Test Not applicable O2 Delivery Device Esprit Oxygen Flow Rate 70 Vent Mode Ak Vent Rate 36 Mechanical Rate No Result Required. PEEP 15.0 Pressure Support Vent 325 Sodium 141 Potassium 3.5 Chloride 97 L Carbon Dioxide 37 H Anion Gap 7 L BUN 51.4 H Creatinine 1.5 H Est GFR (CKD-EPI)AfAm 61.59 Est GFR (CKD-EPI)NonAf 53.14 POC Glucometer 168 Random Glucose 165 H Calcium 8.7 Phosphorus 5.4 H Magnesium 1.9 Total Bilirubin Direct Bilirubin AST ALT Alkaline Phosphatase Creatine Kinase Troponin I B-Natriuretic Peptide Total Protein Albumin Random Vancomycin 05/04/19 05/04/19 05/04/19 18:54 21:03 23:46 WBC RBC Hgb Hct MCV MCH MCHC RDW Plt Count MPV PT with INR INR PTT (Actin FS) Anticoagulation Therapy Puncture Site ABG pH ABG pCO2 at Pt Temp ABG pO2 at Pt Temp ABG HCO3 ABG O2 Sat (Measured) ABG O2 Content ABG Base Excess Adrian Test O2 Delivery Device Oxygen Flow Rate Vent Mode Vent Rate Mechanical Rate PEEP Pressure Support Vent Sodium Potassium Chloride Carbon Dioxide Anion Gap BUN Creatinine Est GFR (CKD-EPI)AfAm Est GFR (CKD-EPI)NonAf POC Glucometer 157 158 158 Random Glucose Calcium Phosphorus Magnesium Total Bilirubin Direct Bilirubin AST ALT Alkaline Phosphatase Creatine Kinase Troponin I B-Natriuretic Peptide Total Protein Albumin Random Vancomycin 05/05/19 05/05/19 05/05/19 01:31 01:56 03:10 WBC RBC Hgb Hct MCV MCH MCHC RDW Plt Count MPV PT with INR INR PTT (Actin FS) Anticoagulation Therapy Puncture Site ABG pH ABG pCO2 at Pt Temp ABG pO2 at Pt Temp ABG HCO3 ABG O2 Sat (Measured) ABG O2 Content ABG Base Excess Adrian Test O2 Delivery Device Oxygen Flow Rate Vent Mode Vent Rate Mechanical Rate PEEP Pressure Support Vent Sodium Potassium Chloride Carbon Dioxide Anion Gap BUN Creatinine Est GFR (CKD-EPI)AfAm Est GFR (CKD-EPI)NonAf POC Glucometer 117 128 172 Random Glucose Calcium Phosphorus Magnesium Total Bilirubin Direct Bilirubin AST ALT Alkaline Phosphatase Creatine Kinase Troponin I B-Natriuretic Peptide Total Protein Albumin Random Vancomycin 05/05/19 05/05/19 05/05/19 04:02 04:23 05:30 WBC RBC Hgb Hct MCV MCH MCHC RDW Plt Count MPV PT with INR INR PTT (Actin FS) Anticoagulation Therapy Puncture Site ABG pH ABG pCO2 at Pt Temp ABG pO2 at Pt Temp ABG HCO3 ABG O2 Sat (Measured) ABG O2 Content ABG Base Excess Adrian Test O2 Delivery Device Oxygen Flow Rate Vent Mode Vent Rate Mechanical Rate PEEP Pressure Support Vent Sodium Potassium Chloride Carbon Dioxide Anion Gap BUN Creatinine Est GFR (CKD-EPI)AfAm Est GFR (CKD-EPI)NonAf POC Glucometer 172 171 Random Glucose Calcium Phosphorus Magnesium Total Bilirubin Direct Bilirubin AST ALT Alkaline Phosphatase Creatine Kinase Troponin I B-Natriuretic Peptide Total Protein Albumin Random Vancomycin 16.8 L 05/05/19 05/05/19 05/05/19 05:30 05:30 05:30 WBC 8.9 RBC 4.38 Hgb 10.6 L Hct 34.5 L MCV 78.8 L MCH 24.3 L MCHC 30.8 L RDW 19.9 H Plt Count 342 MPV 8.2 PT with INR 12.90 INR 1.09 PTT (Actin FS) 66.9 H Anticoagulation Therapy Puncture Site ABG pH ABG pCO2 at Pt Temp ABG pO2 at Pt Temp ABG HCO3 ABG O2 Sat (Measured) ABG O2 Content ABG Base Excess Adrian Test O2 Delivery Device Oxygen Flow Rate Vent Mode Vent Rate Mechanical Rate PEEP Pressure Support Vent Sodium 141 Potassium 3.9 Chloride 98 Carbon Dioxide 34 H Anion Gap 9 BUN 58.6 H Creatinine 1.6 H Est GFR (CKD-EPI)AfAm 56.97 Est GFR (CKD-EPI)NonAf 49.15 POC Glucometer Random Glucose 157 H Calcium 8.9 Phosphorus 6.2 H Magnesium 2.0 Total Bilirubin 0.5 Direct Bilirubin 0.2 AST 21 ALT 29 Alkaline Phosphatase 80 Creatine Kinase 55 Troponin I < 0.02 B-Natriuretic Peptide Total Protein 5.9 L Albumin 2.6 L Random Vancomycin 05/05/19 05/05/19 05/05/19 05:36 06:35 06:54 WBC RBC Hgb Hct MCV MCH MCHC RDW Plt Count MPV PT with INR INR PTT (Actin FS) Anticoagulation Therapy No Result Required. Puncture Site Arterial line ABG pH 7.38 ABG pCO2 at Pt Temp 58.1 H ABG pO2 at Pt Temp 86.2 ABG HCO3 33.5 H ABG O2 Sat (Measured) 95.0 ABG O2 Content 14.0 ABG Base Excess 7.4 H Adrian Test Not applicable O2 Delivery Device Mech vent Oxygen Flow Rate 70% Vent Mode A/c Vent Rate 36 Mechanical Rate Yes PEEP 15.0 Pressure Support Vent 325 Sodium Potassium Chloride Carbon Dioxide Anion Gap BUN Creatinine Est GFR (CKD-EPI)AfAm Est GFR (CKD-EPI)NonAf POC Glucometer 155 148 Random Glucose Calcium Phosphorus Magnesium Total Bilirubin Direct Bilirubin AST ALT Alkaline Phosphatase Creatine Kinase Troponin I B-Natriuretic Peptide Total Protein Albumin Random Vancomycin 05/05/19 05/05/19 08:10 10:09 WBC RBC Hgb Hct MCV MCH MCHC RDW Plt Count MPV PT with INR INR PTT (Actin FS) Anticoagulation Therapy Puncture Site ABG pH ABG pCO2 at Pt Temp ABG pO2 at Pt Temp ABG HCO3 ABG O2 Sat (Measured) ABG O2 Content ABG Base Excess Adrian Test O2 Delivery Device Oxygen Flow Rate Vent Mode Vent Rate Mechanical Rate PEEP Pressure Support Vent Sodium Potassium Chloride Carbon Dioxide Anion Gap BUN Creatinine Est GFR (CKD-EPI)AfAm Est GFR (CKD-EPI)NonAf POC Glucometer 153 134 Random Glucose Calcium Phosphorus Magnesium Total Bilirubin Direct Bilirubin AST ALT Alkaline Phosphatase Creatine Kinase Troponin I B-Natriuretic Peptide Total Protein Albumin Random Vancomycin Active Medications Generic Name Dose Route Start Last Admin Trade Name Freq PRN Reason Stop Dose Admin Albuterol/Ipratropium 1 amp 04/30/19 16:00 05/05/19 08:00 Duoneb - NEB 1 amp RQID ELISSA Administration Chlorhexidine Gluconate 1 applic 04/30/19 22:00 05/04/19 21:06 Hibiclens For Decolonization - TP 1 applic HS ELISSA Administration Heparin Sodium (Porcine) 1,000 unit 04/30/19 10:40 05/03/19 09:17 Heparin - IVPUSH 1,000 unit PRN PRN Administration Heparin Heparin Sodium (Porcine) 5,000 unit 04/30/19 10:40 05/02/19 10:07 Heparin - IVPUSH 5,000 unit PRN PRN Administration Heparin Vasopressin 50 units/ Sodium 100 mls @ 4 mls/hr 04/30/19 09:30 05/05/19 10:25 Chloride IVPB 2.4 units/hr ASDIR ELISSA 4.8 mls/hr Administration Protocol 2 UNITS/HR Propofol 1,000,000 mcg in 100 mls @ 4.082 mls/hr 04/30/19 10:15 05/05/19 07: 29 Diprivan - IVPB 50 mcg/kg/min TITR ELISSA 40.823 mls/hr Administration Protocol 5 MCG/KG/MIN Heparin Sodium (Porcine) 50, 500 mls @ 10 mls/hr 04/30/19 10:45 05/04/19 14: 26 000 unit/ Sodium Chloride IV 1,500 unit/hr TITR ELISSA 15 mls/hr Administration Protocol 1,000 UNIT/HR Norepinephrine Bitartrate 8, 500 mls @ 18.75 mls/hr 04/30/19 14:00 05/05/19 07:37 000 mcg/ Dextrose/Sodium IV 2 mcg/min Chloride TITR ELISSA 7.5 mls/hr Titration Protocol 5 MCG/MIN Piperacillin Sod/Tazobactam 50 mls @ 100 mls/hr 05/01/19 18:00 05/05/19 10:29 Sod 3.375 gm/ Dextrose IVPB 100 mls/hr Q8H-IV ELISSA Administration Protocol Fentanyl 500 mcg/ Dextrose 100 mls @ 10 mls/hr 05/01/19 12:45 05/05/19 08:35 IVPB 100 mcg/hr TITR ELISSA 20 mls/hr Titration Protocol 50 MCG/HR Insulin Human Regular 100 100 mls @ 14.34 mls/hr 05/02/19 12:00 05/05/19 10: 10 units/ Sodium Chloride IVPB 0.01 units/kg/hr TITR ELISSA 2 mls/hr Titration Protocol 0.1 UNITS/KG/HR Furosemide 100 mg/ Dextrose 100 mls @ 5 mls/hr 05/04/19 11:00 05/04/19 11:00 IVPB 05/05/19 23:59 5 mg/hr TITR ELISSA 5 mls/hr Administration Protocol 5 MG/HR Methylprednisolone Sodium Succinate 40 mg 05/02/19 14:05 05/05/19 10:29 Solu-Medrol - IVPUSH 40 mg Q8H-IV ELISSA Administration Metoprolol Tartrate 5 mg 04/30/19 08:57 05/05/19 06:38 Lopressor Injection - IVPUSH 5 mg Q4H PRN Administration TACHYCARDIA Metoprolol Tartrate 25 mg 05/02/19 13:45 05/05/19 10:31 Lopressor - PO Not Given BID ELISSA Pantoprazole Sodium 40 mg 05/01/19 10:00 05/05/19 10:27 Protonix Iv IVPUSH 40 mg DAILY ELISSA Administration ASSESSMENT/PLAN: Pt. is a 53 y.o. M w/ PMHx. of DM2, HFpEF(last EF: 45-50%), EMMY (non-adherent to CPAP) and atrial flutter presents with sudden onset of shortness of breath. Neuro: -Obtunded on presentation -intubated off vecuronium and sedated with propofol (50) and fentanyl (maxed out) -no sedation holidays for now CV: -initially hypotensive in the 60s with map in the 40s then started on vasopressin -phenylephrine added then switched to levophed once central line place to maintain map >65 (04/30/19) -A-line place overnight. hypotensive in the 80-90s with map between 63-67 -Bp cont to be labile with tachycardia -back on levophed and vasopressin for pressure support. WILL try to wean off when possible -Hr continues to be tachy -Hx of Aflutter -Hold Diltiazem given tenuous MAP and need to diuresis -on Lopressor 5mg IV Q6H and started on metoprolol 25mg BID with lopressor 5mg Q4h PRN -Hold Eliquis, still on Heparin gtt -BNP: 1634 -CVP monitoring showing 11-12. fluid overload improving -Hx CHFpEF, DM, EMMY (non adherent to CPAP) -lasix drip decreased to 5/h. s/p one dose of diamox - urine output over >2000 since overnight. - cont Strict Is & Os, daily weights - Echo difficult assessment. unremarkable -Cardio Dr Cruz on board, recs appreciated Pulm: -Acute Hypoxic and Hypercapneic Respiratory Failure -hx of EMMY with non compliance to CPAP at home -was initially on BIPAP on arrival then transitioned to intubation due to poor respiratory status and ABG with severe acidosis (Vent:VCV/AC, 70/325/15/36) -low tidal volume ventilation <6cc/kg/IBW -keep Pplat <30 -allow permissive hypercapnea -sats >90 -s/p vecuronium. off now - ABG today Ph 7.38, pCO2 58.1, pO2 86.2 -pt currently pending transfer to [facility], requirements were to decrease PEEP to reduce transportation complication and to go up on FIO2 -CXR: left sided white out significantly improved s/p right sided positioning. -Bronchodilators :duonebs RQID, Albuterol PRN -solumedrol 40mg Q8h IV -CXR in the AM ID: -Temp 97-99F, WBC 7.4, white/yellow secretions on presentions, CXR without clear exclusion of infiltrate -LA 2.1 -> 1.2 - vanc trough 16.8 -on vanc redosed, zosyn, azithromycin . will continue same antibiotics for now. -blood culture prior to abx grew gram positive clusters. repeat blood cultures negative for 3 day. first blood culture most likely contaminant - urine culture neg -ID consulted and on board. recs appreciated Renal: -cr 2.2 -> 2.1-> 1.6 k: 6.9 ->6.2-> 6.3-> 4.6-> 4.3->3.9 -no clear Hx of CKD -on lasix drip -received kayaxilate 30, amp of 5D50, 10 unit of insulin, amp of bicarb to assess with intracellular shift of potassium to improve levels. - K current 3.6 -Nephrology Consult to Dr. Kelley appreciated -Hold Lisinopril -monitor GI: -NG tube -will start feed with hypocaloric with promote once rates are provided by [employer] -LFTs normal -monitor ENDO: -blood glucose running high around 400 as pt is on alot of D5 containing drip -Hx DM -A1c 8.9 -BGMs -on insulin drip Heme/Onc : -H/H 10.4/34.8 -> 10/33.5 -> 10.2/32.5 -stable -monitor -anemia work up low serum iron only FEN : -no IVF -monitor electrolytes -NPO Ppx: -Heparin gtt -protonix 40 daily LTD: central line left: ortiz: 04/30/19 A-line: 05/01/19 Dispo: pending transfer to ICU in [facility] Visit type - Emergency Visit Emergency Visit: Yes ED Registration Date: 04/30/19 Care time: The patient presented to the Emergency Department on the above date and was hospitalized for further evaluation of their emergent condition. - New Patient This patient is new to me today: No - Critical Care Critical Care patient: Yes Total Critical Care Time (in minutes): 35 Critical Care Statement: The care of this patient involved high complexity decision making to prevent further life threatening deterioration of the patient 's condition and/or to evaluate & treat vital organ system(s) failure or risk of failure. ATTENDING PHYSICIAN STATEMENT I saw and evaluated the patient. I reviewed the resident's note and discussed the case with the resident. I agree with the resident's findings and plan as documented. SUBJECTIVE: OBJECTIVE: ASSESSMENT AND PLAN:
[2019-05-05] MEDS: FUROSEMIDE INJECTION 100 MG in DEXTROSE 5%-WATER - 90 ML IVPB SCH (11:25)
--- NOTE | 2019-05-05 11:44 | PN ---
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, Physician History of Present Illness: Remains intubated, sedated, on ventilator with AC Mode of vent, 70% FiO2 / PEEP 15 and placed back on vasopressin and Levophed gtt, aflutter rate-controlled, undergoing diuresis. - Current Medication List Current Medications: Active Medications Albuterol/Ipratropium (Duoneb -) 1 amp NEB RQID ELISSA Last Admin: 05/05/19 08:00 Dose: 1 amp Chlorhexidine Gluconate (Hibiclens For Decolonization -) 1 applic TP HS ELISSA Last Admin: 05/04/19 21:06 Dose: 1 applic Heparin Sodium (Porcine) (Heparin -) 1,000 unit IVPUSH PRN PRN PRN Reason: Heparin Last Admin: 05/03/19 09:17 Dose: 1,000 unit Heparin Sodium (Porcine) (Heparin -) 5,000 unit IVPUSH PRN PRN PRN Reason: Heparin Last Admin: 05/02/19 10:07 Dose: 5,000 unit Vasopressin 50 units/ Sodium (Chloride) 100 mls @ 4 mls/hr IVPB ASDIR ELISSA; Protocol Last Admin: 05/05/19 10:25 Dose: 2.4 units/hr, 4.8 mls/hr Propofol (Diprivan -) 1,000,000 mcg in 100 mls @ 4.082 mls/hr IVPB TITR ELISSA; Protocol Last Admin: 05/05/19 07:29 Dose: 50 mcg/kg/min, 40.823 mls/hr Heparin Sodium (Porcine) 50, (000 unit/ Sodium Chloride) 500 mls @ 10 mls/hr IV TITR ELISSA; Protocol Last Admin: 05/04/19 14:26 Dose: 1,500 unit/hr, 15 mls/hr Norepinephrine Bitartrate 8, 000 mcg/ Dextrose/Sodium Chloride 500 mls @ 18.75 mls/hr IV TITR ELISSA; Protocol Last Titration: 05/05/19 07:37 Dose: 2 mcg/min, 7.5 mls/hr Piperacillin Sod/Tazobactam (Sod 3.375 gm/ Dextrose) 50 mls @ 100 mls/hr IVPB Q8H-IV ELISSA; Protocol Last Admin: 05/05/19 10:29 Dose: 100 mls/hr Fentanyl 500 mcg/ Dextrose 100 mls @ 10 mls/hr IVPB TITR ELISSA; Protocol Last Titration: 05/05/19 08:35 Dose: 100 mcg/hr, 20 mls/hr Insulin Human Regular 100 (units/ Sodium Chloride) 100 mls @ 14.34 mls/hr IVPB TITR ELISSA; Protocol Last Titration: 05/05/19 11:24 Dose: 0.01 units/kg/hr, 1.5 mls/hr Furosemide 100 mg/ Dextrose 100 mls @ 5 mls/hr IVPB TITR ELISSA; Protocol Stop: 05/05/19 23:59 Last Admin: 05/05/19 11:25 Dose: 5 mg/hr, 5 mls/hr Methylprednisolone Sodium Succinate (Solu-Medrol -) 40 mg IVPUSH Q8H-IV ELISSA Last Admin: 05/05/19 10:29 Dose: 40 mg Metoprolol Tartrate (Lopressor Injection -) 5 mg IVPUSH Q4H PRN PRN Reason: TACHYCARDIA Last Admin: 05/05/19 06:38 Dose: 5 mg Metoprolol Tartrate (Lopressor -) 25 mg PO BID [facility] Last Admin: 05/05/19 10:31 Dose: Not Given Pantoprazole Sodium (Protonix Iv) 40 mg IVPUSH DAILY [facility] Last Admin: 05/05/19 10:27 Dose: 40 mg - Objective Vital Signs: Vital Signs Temperature 98.2 F 05/05/19 10:00 Pulse Rate 104 H 05/05/19 10:00 Respiratory Rate 36 H 05/05/19 09:51 Blood Pressure 125/81 05/05/19 10:00 O2 Sat by Pulse Oximetry (%) 94 L 05/05/19 09:51 Constitutional: Yes: No Distress, Calm Neck: Yes: Supple Cardiovascular: Yes: Regular Rate and Rhythm Respiratory: Yes: Intubated, Mechanically Ventilated, Rhonchi Gastrointestinal: Yes: Normal Bowel Sounds, Soft, Abdomen, Obese Edema: No Labs: CBC, BMP 05/05/19 05:30 05/05/19 05:30 INR, PTT INR 1.09 (0.83-1.09) 05/05/19 05:30 - ....Imaging Chest X-ray: Report Reviewed (Improvement, aeration and re-expansion of left hemithorax) EKG: Report Reviewed (Tele: Rate-controlled aflutter) Problem List - Problems (1) Pneumonia Code(s): J18.9 - PNEUMONIA, UNSPECIFIED ORGANISM (2) Septic shock Code(s): A41.9 - SEPSIS, UNSPECIFIED ORGANISM; R65.21 - SEVERE SEPSIS WITH SEPTIC SHOCK (3) Acute hypercapnic respiratory failure due to obstructive sleep apnea Code(s): J96.02 - ACUTE RESPIRATORY FAILURE WITH HYPERCAPNIA; G47.33 - OBSTRUCTIVE SLEEP APNEA (ADULT) (PEDIATRIC) (4) Acute decompensated heart failure Code(s): I50.9 - HEART FAILURE, UNSPECIFIED (5) Acute renal failure Code(s): N17.9 - ACUTE KIDNEY FAILURE, UNSPECIFIED Qualifiers: Qualified Code(s): N17.9 - Acute kidney failure, unspecified (6) Hyperkalemia Code(s): E87.5 - HYPERKALEMIA (7) Atrial fibrillation and flutter Code(s): I48.91 - UNSPECIFIED ATRIAL FIBRILLATION; I48.92 - UNSPECIFIED ATRIAL FLUTTER (8) Sarcoidosis of other sites Code(s): D86.89 - SARCOIDOSIS OF OTHER SITES (9) Type 2 diabetes mellitus Code(s): E11.9 - TYPE 2 DIABETES MELLITUS WITHOUT COMPLICATIONS Qualifiers: Qualified Code(s): E11.22 - Type 2 diabetes mellitus with diabetic chronic kidney disease; N18.2 - Chronic kidney disease, stage 2 (mild) Assessment/Plan 05/01/2019 Normal LV and RV size and fxn, tr TR 03/14/2019 Normal LV size and fxn, no thrombus ADEEL, mild-mod dilated and HK RV, tr MR, mild-mod TR, tr SC, trace pericardial effusion 1. Acute hypoxic and hypercapneic respiratory failure on mechanical ventilation 2. Pneumonia, post septic shock, Gram Positive Bacteremia, r/o ARDS 3. Sarcoidosis confirmed by skin biopsy, r/o cardiac involvement 4. OSAS nonadherent to cpap 5. Paroxysmal Aflutter/Afib with RVR 6. Acute on chronic diastolic heart failure 7. Acute on CKD with hyperkalemia resolving 8. Type 2 DM 9. Anemia P:1. Empiric abx f/u C&S, IV steroid taper with GI protection, BD 2. Wean vasopressin and Levophed gtt for MAP>65 mmHg 3. Vent management per ABG, ARDS protocol and off paralysis 4. Resume rate-control with oral and IV Lopressor once hemodynamics stabilize, heparin gtt with eliquis held for now 5. Continue Lasix gtt @ 5/hr with monitor diuretic response, renal fxn and electrolytes 6. Resume lisinopril 10 qd once renal function and hyperkalemia stabilizes 7. He f/u with Dr. Genaro Davila (cardiology at [place]), cardiac PET or MRI to exclude cardiac involvement in sarcoidosis as outpatient
--- NOTE | 2019-05-05 11:49 | PN ---
Teaching Attending Note Name of Resident: Ju Lopez ATTENDING PHYSICIAN STATEMENT I saw and evaluated the patient. I reviewed the resident's note and discussed the case with the resident. I agree with the resident's findings and plan as documented. SUBJECTIVE: Patient seen and examined in the ICU. Remains intubated and sedated. Paralysis off. AC Mode of vent, 70% FiO2 and PEEP 15. Low dose Vasopressin and NE for hemodynamic support. Remains on Lasix drip. Pplat: 29 CXR: improved LLL Intake & Output 05/02/19 05/03/19 05/04/19 05/05/19 23:59 23:59 23:59 23:59 Intake Total 3876.5 3101 5383 1144 Output Total 8400 5400 6300 800 Balance -4523.5 -2299 -917 344 Weight 316 lb 305 lb 8 oz 302 lb 9.6 oz 299 lb 14.4 oz Last Vital Signs Temp Pulse Resp BP Pulse Ox 98.2 F 104 H 36 H 125/81 94 L 05/05/19 10:00 05/05/19 10:00 05/05/19 09:51 05/05/19 10:00 05/05/19 09:51 Active Medications Albuterol/Ipratropium (Duoneb -) 1 amp NEB RQID ELISSA Last Admin: 05/05/19 08:00 Dose: 1 amp Chlorhexidine Gluconate (Hibiclens For Decolonization -) 1 applic TP HS ELISSA Last Admin: 05/04/19 21:06 Dose: 1 applic Heparin Sodium (Porcine) (Heparin -) 1,000 unit IVPUSH PRN PRN PRN Reason: Heparin Last Admin: 05/03/19 09:17 Dose: 1,000 unit Heparin Sodium (Porcine) (Heparin -) 5,000 unit IVPUSH PRN PRN PRN Reason: Heparin Last Admin: 05/02/19 10:07 Dose: 5,000 unit Vasopressin 50 units/ Sodium (Chloride) 100 mls @ 4 mls/hr IVPB ASDIR ELISSA; Protocol Last Admin: 05/05/19 10:25 Dose: 2.4 units/hr, 4.8 mls/hr Propofol (Diprivan -) 1,000,000 mcg in 100 mls @ 4.082 mls/hr IVPB TITR ELISSA; Protocol Last Admin: 05/05/19 07:29 Dose: 50 mcg/kg/min, 40.823 mls/hr Heparin Sodium (Porcine) 50, (000 unit/ Sodium Chloride) 500 mls @ 10 mls/hr IV TITR ELISSA; Protocol Last Admin: 05/04/19 14:26 Dose: 1,500 unit/hr, 15 mls/hr Norepinephrine Bitartrate 8, 000 mcg/ Dextrose/Sodium Chloride 500 mls @ 18.75 mls/hr IV TITR ELISSA; Protocol Last Titration: 05/05/19 07:37 Dose: 2 mcg/min, 7.5 mls/hr Piperacillin Sod/Tazobactam (Sod 3.375 gm/ Dextrose) 50 mls @ 100 mls/hr IVPB Q8H-IV ELISSA; Protocol Last Admin: 05/05/19 10:29 Dose: 100 mls/hr Fentanyl 500 mcg/ Dextrose 100 mls @ 10 mls/hr IVPB TITR ELISSA; Protocol Last Titration: 05/05/19 08:35 Dose: 100 mcg/hr, 20 mls/hr Insulin Human Regular 100 (units/ Sodium Chloride) 100 mls @ 14.34 mls/hr IVPB TITR ELISSA; Protocol Last Titration: 05/05/19 11:24 Dose: 0.01 units/kg/hr, 1.5 mls/hr Furosemide 100 mg/ Dextrose 100 mls @ 5 mls/hr IVPB TITR ELISSA; Protocol Stop: 05/05/19 23:59 Last Admin: 05/05/19 11:25 Dose: 5 mg/hr, 5 mls/hr Methylprednisolone Sodium Succinate (Solu-Medrol -) 40 mg IVPUSH Q8H-IV ELISSA Last Admin: 05/05/19 10:29 Dose: 40 mg Metoprolol Tartrate (Lopressor Injection -) 5 mg IVPUSH Q4H PRN PRN Reason: TACHYCARDIA Last Admin: 05/05/19 06:38 Dose: 5 mg Metoprolol Tartrate (Lopressor -) 25 mg PO BID ELISSA Last Admin: 05/05/19 10:31 Dose: Not Given Pantoprazole Sodium (Protonix Iv) 40 mg IVPUSH DAILY ELISSA Last Admin: 05/05/19 10:27 Dose: 40 mg Gen: intubated, sedated Heart: tachy, irreg, s1S2 Lung: Vented, bilateral rhonchi, diminished Lt lung sounds Abd: soft, nontender Ext:+1 edema improved 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 Intake & Output 05/02/19 05/03/19 05/04/19 05/05/19 23:59 23:59 23:59 23:59 Intake Total 3876.5 3101 5383 1144 Output Total 8400 5400 6300 800 Balance -4523.5 -2299 -917 344 Weight 316 lb 305 lb 8 oz 302 lb 9.6 oz 299 lb 14.4 oz Last Vital Signs Temp Pulse Resp BP Pulse Ox 98.2 F 104 H 36 H 125/81 94 L 05/05/19 10:00 05/05/19 10:00 05/05/19 09:51 05/05/19 10:00 05/05/19 09:51 Active Medications Albuterol/Ipratropium (Duoneb -) 1 amp NEB RQID ELISSA Last Admin: 05/05/19 08:00 Dose: 1 amp Chlorhexidine Gluconate (Hibiclens For Decolonization -) 1 applic TP HS ELISSA Last Admin: 05/04/19 21:06 Dose: 1 applic Heparin Sodium (Porcine) (Heparin -) 1,000 unit IVPUSH PRN PRN PRN Reason: Heparin Last Admin: 05/03/19 09:17 Dose: 1,000 unit Heparin Sodium (Porcine) (Heparin -) 5,000 unit IVPUSH PRN PRN PRN Reason: Heparin Last Admin: 05/02/19 10:07 Dose: 5,000 unit Vasopressin 50 units/ Sodium (Chloride) 100 mls @ 4 mls/hr IVPB ASDIR ELISSA; Protocol Last Admin: 05/05/19 10:25 Dose: 2.4 units/hr, 4.8 mls/hr Propofol (Diprivan -) 1,000,000 mcg in 100 mls @ 4.082 mls/hr IVPB TITR ELISSA; Protocol Last Admin: 05/05/19 07:29 Dose: 50 mcg/kg/min, 40.823 mls/hr Heparin Sodium (Porcine) 50, (000 unit/ Sodium Chloride) 500 mls @ 10 mls/hr IV TITR ELISSA; Protocol Last Admin: 05/04/19 14:26 Dose: 1,500 unit/hr, 15 mls/hr Norepinephrine Bitartrate 8, 000 mcg/ Dextrose/Sodium Chloride 500 mls @ 18.75 mls/hr IV TITR ELISSA; Protocol Last Titration: 05/05/19 07:37 Dose: 2 mcg/min, 7.5 mls/hr Piperacillin Sod/Tazobactam (Sod 3.375 gm/ Dextrose) 50 mls @ 100 mls/hr IVPB Q8H-IV ELISSA; Protocol Last Admin: 05/05/19 10:29 Dose: 100 mls/hr Fentanyl 500 mcg/ Dextrose 100 mls @ 10 mls/hr IVPB TITR ELISSA; Protocol Last Titration: 05/05/19 08:35 Dose: 100 mcg/hr, 20 mls/hr Insulin Human Regular 100 (units/ Sodium Chloride) 100 mls @ 14.34 mls/hr IVPB TITR ELISSA; Protocol Last Titration: 05/05/19 11:24 Dose: 0.01 units/kg/hr, 1.5 mls/hr Furosemide 100 mg/ Dextrose 100 mls @ 5 mls/hr IVPB TITR ELISSA; Protocol Stop: 05/05/19 23:59 Last Admin: 05/05/19 11:25 Dose: 5 mg/hr, 5 mls/hr Methylprednisolone Sodium Succinate (Solu-Medrol -) 40 mg IVPUSH Q8H-IV ELISSA Last Admin: 05/05/19 10:29 Dose: 40 mg Metoprolol Tartrate (Lopressor Injection -) 5 mg IVPUSH Q4H PRN PRN Reason: TACHYCARDIA Last Admin: 05/05/19 06:38 Dose: 5 mg Metoprolol Tartrate (Lopressor -) 25 mg PO BID ELISSA Last Admin: 05/05/19 10:31 Dose: Not Given Pantoprazole Sodium (Protonix Iv) 40 mg IVPUSH DAILY [facility] Last Admin: 05/05/19 10:27 Dose: 40 mg Laboratory Results - last 24 hr 05/04/19 05/04/19 05/04/19 05:20 12:14 14:23 WBC RBC Hgb Hct MCV MCH MCHC RDW Plt Count MPV PT with INR INR PTT (Actin FS) Anticoagulation Therapy Puncture Site ABG pH ABG pCO2 at Pt Temp ABG pO2 at Pt Temp ABG HCO3 ABG O2 Sat (Measured) ABG O2 Content ABG Base Excess Adrian Test O2 Delivery Device Oxygen Flow Rate Vent Mode Vent Rate Mechanical Rate PEEP Pressure Support Vent Sodium 141 Potassium 3.8 Chloride 96 L Carbon Dioxide 39 H Anion Gap 6 L BUN 48.2 H Creatinine 1.4 H Est GFR (CKD-EPI)AfAm 66.95 Est GFR (CKD-EPI)NonAf 57.76 POC Glucometer 184 196 Random Glucose 137 H Calcium 8.7 Phosphorus 5.2 H Magnesium 2.2 Total Bilirubin Direct Bilirubin AST ALT Alkaline Phosphatase Creatine Kinase Troponin I B-Natriuretic Peptide 781.3 H Total Protein Albumin Random Vancomycin 05/04/19 05/04/19 05/04/19 16:25 17:35 17:35 WBC RBC Hgb Hct MCV MCH MCHC RDW Plt Count MPV PT with INR INR PTT (Actin FS) Anticoagulation Therapy No Result Required. Puncture Site Arterial line ABG pH 7.44 ABG pCO2 at Pt Temp 54.1 H ABG pO2 at Pt Temp 102 H ABG HCO3 35.9 H ABG O2 Sat (Measured) 96.5 ABG O2 Content 20.5 ABG Base Excess 9.8 H Adrian Test Not applicable O2 Delivery Device Esprit Oxygen Flow Rate 70 Vent Mode Ak Vent Rate 36 Mechanical Rate No Result Required. PEEP 15.0 Pressure Support Vent 325 Sodium 141 Potassium 3.5 Chloride 97 L Carbon Dioxide 37 H Anion Gap 7 L BUN 51.4 H Creatinine 1.5 H Est GFR (CKD-EPI)AfAm 61.59 Est GFR (CKD-EPI)NonAf 53.14 POC Glucometer 168 Random Glucose 165 H Calcium 8.7 Phosphorus 5.4 H Magnesium 1.9 Total Bilirubin Direct Bilirubin AST ALT Alkaline Phosphatase Creatine Kinase Troponin I B-Natriuretic Peptide Total Protein Albumin Random Vancomycin 05/04/19 05/04/19 05/04/19 18:54 21:03 23:46 WBC RBC Hgb Hct MCV MCH MCHC RDW Plt Count MPV PT with INR INR PTT (Actin FS) Anticoagulation Therapy Puncture Site ABG pH ABG pCO2 at Pt Temp ABG pO2 at Pt Temp ABG HCO3 ABG O2 Sat (Measured) ABG O2 Content ABG Base Excess Adrian Test O2 Delivery Device Oxygen Flow Rate Vent Mode Vent Rate Mechanical Rate PEEP Pressure Support Vent Sodium Potassium Chloride Carbon Dioxide Anion Gap BUN Creatinine Est GFR (CKD-EPI)AfAm Est GFR (CKD-EPI)NonAf POC Glucometer 157 158 158 Random Glucose Calcium Phosphorus Magnesium Total Bilirubin Direct Bilirubin AST ALT Alkaline Phosphatase Creatine Kinase Troponin I B-Natriuretic Peptide Total Protein Albumin Random Vancomycin 05/05/19 05/05/19 05/05/19 01:31 01:56 03:10 WBC RBC Hgb Hct MCV MCH MCHC RDW Plt Count MPV PT with INR INR PTT (Actin FS) Anticoagulation Therapy Puncture Site ABG pH ABG pCO2 at Pt Temp ABG pO2 at Pt Temp ABG HCO3 ABG O2 Sat (Measured) ABG O2 Content ABG Base Excess Adrian Test O2 Delivery Device Oxygen Flow Rate Vent Mode Vent Rate Mechanical Rate PEEP Pressure Support Vent Sodium Potassium Chloride Carbon Dioxide Anion Gap BUN Creatinine Est GFR (CKD-EPI)AfAm Est GFR (CKD-EPI)NonAf POC Glucometer 117 128 172 Random Glucose Calcium Phosphorus Magnesium Total Bilirubin Direct Bilirubin AST ALT Alkaline Phosphatase Creatine Kinase Troponin I B-Natriuretic Peptide Total Protein Albumin Random Vancomycin 05/05/19 05/05/19 05/05/19 04:02 04:23 05:30 WBC RBC Hgb Hct MCV MCH MCHC RDW Plt Count MPV PT with INR INR PTT (Actin FS) Anticoagulation Therapy Puncture Site ABG pH ABG pCO2 at Pt Temp ABG pO2 at Pt Temp ABG HCO3 ABG O2 Sat (Measured) ABG O2 Content ABG Base Excess Adrian Test O2 Delivery Device Oxygen Flow Rate Vent Mode Vent Rate Mechanical Rate PEEP Pressure Support Vent Sodium Potassium Chloride Carbon Dioxide Anion Gap BUN Creatinine Est GFR (CKD-EPI)AfAm Est GFR (CKD-EPI)NonAf POC Glucometer 172 171 Random Glucose Calcium Phosphorus Magnesium Total Bilirubin Direct Bilirubin AST ALT Alkaline Phosphatase Creatine Kinase Troponin I B-Natriuretic Peptide Total Protein Albumin Random Vancomycin 16.8 L 05/05/19 05/05/19 05/05/19 05:30 05:30 05:30 WBC 8.9 RBC 4.38 Hgb 10.6 L Hct 34.5 L MCV 78.8 L MCH 24.3 L MCHC 30.8 L RDW 19.9 H Plt Count 342 MPV 8.2 PT with INR 12.90 INR 1.09 PTT (Actin FS) 66.9 H Anticoagulation Therapy Puncture Site ABG pH ABG pCO2 at Pt Temp ABG pO2 at Pt Temp ABG HCO3 ABG O2 Sat (Measured) ABG O2 Content ABG Base Excess Adrian Test O2 Delivery Device Oxygen Flow Rate Vent Mode Vent Rate Mechanical Rate PEEP Pressure Support Vent Sodium 141 Potassium 3.9 Chloride 98 Carbon Dioxide 34 H Anion Gap 9 BUN 58.6 H Creatinine 1.6 H Est GFR (CKD-EPI)AfAm 56.97 Est GFR (CKD-EPI)NonAf 49.15 POC Glucometer Random Glucose 157 H Calcium 8.9 Phosphorus 6.2 H Magnesium 2.0 Total Bilirubin 0.5 Direct Bilirubin 0.2 AST 21 ALT 29 Alkaline Phosphatase 80 Creatine Kinase 55 Troponin I < 0.02 B-Natriuretic Peptide Total Protein 5.9 L Albumin 2.6 L Random Vancomycin 05/05/19 05/05/19 05/05/19 05:36 06:35 06:54 WBC RBC Hgb Hct MCV MCH MCHC RDW Plt Count MPV PT with INR INR PTT (Actin FS) Anticoagulation Therapy No Result Required. Puncture Site Arterial line ABG pH 7.38 ABG pCO2 at Pt Temp 58.1 H ABG pO2 at Pt Temp 86.2 ABG HCO3 33.5 H ABG O2 Sat (Measured) 95.0 ABG O2 Content 14.0 ABG Base Excess 7.4 H Adrian Test Not applicable O2 Delivery Device Mech vent Oxygen Flow Rate 70% Vent Mode A/c Vent Rate 36 Mechanical Rate Yes PEEP 15.0 Pressure Support Vent 325 Sodium Potassium Chloride Carbon Dioxide Anion Gap BUN Creatinine Est GFR (CKD-EPI)AfAm Est GFR (CKD-EPI)NonAf POC Glucometer 155 148 Random Glucose Calcium Phosphorus Magnesium Total Bilirubin Direct Bilirubin AST ALT Alkaline Phosphatase Creatine Kinase Troponin I B-Natriuretic Peptide Total Protein Albumin Random Vancomycin 05/05/19 05/05/19 05/05/19 08:10 10:09 11:19 WBC RBC Hgb Hct MCV MCH MCHC RDW Plt Count MPV PT with INR INR PTT (Actin FS) Anticoagulation Therapy Puncture Site ABG pH ABG pCO2 at Pt Temp ABG pO2 at Pt Temp ABG HCO3 ABG O2 Sat (Measured) ABG O2 Content ABG Base Excess Adrian Test O2 Delivery Device Oxygen Flow Rate Vent Mode Vent Rate Mechanical Rate PEEP Pressure Support Vent Sodium Potassium Chloride Carbon Dioxide Anion Gap BUN Creatinine Est GFR (CKD-EPI)AfAm Est GFR (CKD-EPI)NonAf POC Glucometer 153 134 130 Random Glucose Calcium Phosphorus Magnesium Total Bilirubin Direct Bilirubin AST ALT Alkaline Phosphatase Creatine Kinase Troponin I B-Natriuretic Peptide Total Protein Albumin Random Vancomycin ASSESSMENT AND PLAN: Acute Hypoxic and Hypercapneic Respiratory Failure due to ARDS Pneumonia Gram Positive Bacteremia Septic Shock Volume Overload Lactic Acidosis Hyperkalemia Acute Kidney Injury Atrial Flutter with RVR HTN DM Anemia - Wean FiO2 as tolerated / Lung protective ventilation , maintain high PEEP given ateletatic Left base - Aggressive pulm toilet - ABX per ID - keep Pplat <30 - Continue sedation for vent synchrony - Wean off pressor; goal MAP>65 - Monitor urine output, creatinine - Monitor lytes - Medrol - Inhaled bronchodilators - Rate control - Continue anticoagulation - DVT/GI prophylaxis - continue ICU monitoring - prognosis guarded Would benefit from prone positioning which cannot be done here: For potential transfer for tertiary care center Dr [facility] Critical care time spent in reviewing chart, evaluating patient and formulating plan - 36 minutes.
--- NOTE | 2019-05-05 13:12 | PN ---
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, Physician History of Present Illness: Pt seen and examined at bedside. He remains in the ICU. He remains intubated. He is making urine. - Current Medication List Current Medications: Active Medications Albuterol/Ipratropium (Duoneb -) 1 amp NEB RQID ELISSA Last Admin: 05/05/19 08:00 Dose: 1 amp Chlorhexidine Gluconate (Hibiclens For Decolonization -) 1 applic TP HS ELISSA Last Admin: 05/04/19 21:06 Dose: 1 applic Heparin Sodium (Porcine) (Heparin -) 1,000 unit IVPUSH PRN PRN PRN Reason: Heparin Last Admin: 05/03/19 09:17 Dose: 1,000 unit Heparin Sodium (Porcine) (Heparin -) 5,000 unit IVPUSH PRN PRN PRN Reason: Heparin Last Admin: 05/02/19 10:07 Dose: 5,000 unit Vasopressin 50 units/ Sodium (Chloride) 100 mls @ 4 mls/hr IVPB ASDIR ELISSA; Protocol Last Admin: 05/05/19 10:25 Dose: 2.4 units/hr, 4.8 mls/hr Propofol (Diprivan -) 1,000,000 mcg in 100 mls @ 4.082 mls/hr IVPB TITR ELISSA; Protocol Last Admin: 05/05/19 07:29 Dose: 50 mcg/kg/min, 40.823 mls/hr Heparin Sodium (Porcine) 50, (000 unit/ Sodium Chloride) 500 mls @ 10 mls/hr IV TITR ELISSA; Protocol Last Admin: 05/04/19 14:26 Dose: 1,500 unit/hr, 15 mls/hr Norepinephrine Bitartrate 8, 000 mcg/ Dextrose/Sodium Chloride 500 mls @ 18.75 mls/hr IV TITR ELISSA; Protocol Last Titration: 05/05/19 07:37 Dose: 2 mcg/min, 7.5 mls/hr Piperacillin Sod/Tazobactam (Sod 3.375 gm/ Dextrose) 50 mls @ 100 mls/hr IVPB Q8H-IV ELISSA; Protocol Last Admin: 05/05/19 10:29 Dose: 100 mls/hr Fentanyl 500 mcg/ Dextrose 100 mls @ 10 mls/hr IVPB TITR ELISSA; Protocol Last Titration: 05/05/19 08:35 Dose: 100 mcg/hr, 20 mls/hr Insulin Human Regular 100 (units/ Sodium Chloride) 100 mls @ 14.34 mls/hr IVPB TITR ELISSA; Protocol Last Titration: 05/05/19 11:24 Dose: 0.01 units/kg/hr, 1.5 mls/hr Furosemide 100 mg/ Dextrose 100 mls @ 5 mls/hr IVPB TITR ELISSA; Protocol Stop: 05/05/19 23:59 Last Admin: 05/05/19 11:25 Dose: 5 mg/hr, 5 mls/hr Methylprednisolone Sodium Succinate (Solu-Medrol -) 40 mg IVPUSH Q8H-IV ELISSA Last Admin: 05/05/19 10:29 Dose: 40 mg Metoprolol Tartrate (Lopressor Injection -) 5 mg IVPUSH Q4H PRN PRN Reason: TACHYCARDIA Last Admin: 05/05/19 06:38 Dose: 5 mg Metoprolol Tartrate (Lopressor -) 25 mg PO BID [facility] Last Admin: 05/05/19 10:31 Dose: Not Given Pantoprazole Sodium (Protonix Iv) 40 mg IVPUSH DAILY [facility] Last Admin: 05/05/19 10:27 Dose: 40 mg - Objective Vital Signs: Vital Signs Temperature 98.2 F 05/05/19 10:00 Pulse Rate 104 H 05/05/19 10:00 Respiratory Rate 36 H 05/05/19 09:51 Blood Pressure 125/81 05/05/19 10:00 O2 Sat by Pulse Oximetry (%) 94 L 05/05/19 09:51 Constitutional: Yes: Calm Eyes: Yes: Conjunctiva Clear HENT: Yes: Atraumatic Neck: Yes: Supple Cardiovascular: Yes: S1, S2 Respiratory: Yes: Mechanically Ventilated Gastrointestinal: Yes: Soft, Abdomen, Obese Genitourinary: Yes: Andrews Present Musculoskeletal: Yes: Muscle Weakness Edema: Yes Edema: LUE: 1+, RUE: 1+, LLE: 1+, RLE: 1+ Integumentary: Yes: Venous Stasis Changes Neurological: Yes: Lethargy Labs: CBC, BMP 05/05/19 05:30 05/05/19 05:30 INR, PTT INR 1.09 (0.83-1.09) 05/05/19 05:30 - ....Imaging Chest X-ray: Report Reviewed Problem List - Problems (1) Acute decompensated heart failure Code(s): I50.9 - HEART FAILURE, UNSPECIFIED (2) Atrial fibrillation and flutter Code(s): I48.91 - UNSPECIFIED ATRIAL FIBRILLATION; I48.92 - UNSPECIFIED ATRIAL FLUTTER (3) Hyperkalemia Code(s): E87.5 - HYPERKALEMIA (4) Pneumonia Code(s): J18.9 - PNEUMONIA, UNSPECIFIED ORGANISM Qualifiers: Pneumonia type: due to unspecified organism (5) Sarcoidosis of other sites Code(s): D86.89 - SARCOIDOSIS OF OTHER SITES Assessment/Plan Current Medications Generic Name Dose Route Start Last Admin Trade Name Freq PRN Reason Stop Dose Admin Albuterol/Ipratropium 1 amp 04/30/19 16:00 05/05/19 08:00 Duoneb - NEB 1 amp RQID ELISSA Administration Chlorhexidine Gluconate 1 applic 04/30/19 22:00 05/04/19 21:06 Hibiclens For Decolonization - TP 1 applic HS ELISSA Administration Heparin Sodium (Porcine) 1,000 unit 04/30/19 10:40 05/03/19 09:17 Heparin - IVPUSH 1,000 unit PRN PRN Administration Heparin Heparin Sodium (Porcine) 5,000 unit 04/30/19 10:40 05/02/19 10:07 Heparin - IVPUSH 5,000 unit PRN PRN Administration Heparin Vasopressin 50 units/ Sodium 100 mls @ 4 mls/hr 04/30/19 09:30 05/05/19 10:25 Chloride IVPB 2.4 units/hr ASDIR ELISSA 4.8 mls/hr Administration Protocol 2 UNITS/HR Propofol 1,000,000 mcg in 100 mls @ 4.082 mls/hr 04/30/19 10:15 05/05/19 07: 29 Diprivan - IVPB 50 mcg/kg/min TITR ELISSA 40.823 mls/hr Administration Protocol 5 MCG/KG/MIN Heparin Sodium (Porcine) 50, 500 mls @ 10 mls/hr 04/30/19 10:45 05/04/19 14: 26 000 unit/ Sodium Chloride IV 1,500 unit/hr TITR ELISSA 15 mls/hr Administration Protocol 1,000 UNIT/HR Norepinephrine Bitartrate 8, 500 mls @ 18.75 mls/hr 04/30/19 14:00 05/05/19 07:37 000 mcg/ Dextrose/Sodium IV 2 mcg/min Chloride TITR ELISSA 7.5 mls/hr Titration Protocol 5 MCG/MIN Piperacillin Sod/Tazobactam 50 mls @ 100 mls/hr 05/01/19 18:00 05/05/19 10:29 Sod 3.375 gm/ Dextrose IVPB 100 mls/hr Q8H-IV ELISSA Administration Protocol Fentanyl 500 mcg/ Dextrose 100 mls @ 10 mls/hr 05/01/19 12:45 05/05/19 08:35 IVPB 100 mcg/hr TITR ELISSA 20 mls/hr Titration Protocol 50 MCG/HR Insulin Human Regular 100 100 mls @ 14.34 mls/hr 05/02/19 12:00 05/05/19 11: 24 units/ Sodium Chloride IVPB 0.01 units/kg/hr TITR ELISSA 1.5 mls/hr Titration Protocol 0.1 UNITS/KG/HR Furosemide 100 mg/ Dextrose 100 mls @ 5 mls/hr 05/04/19 11:00 05/05/19 11:25 IVPB 05/05/19 23:59 5 mg/hr TITR ELISSA 5 mls/hr Administration Protocol 5 MG/HR Methylprednisolone Sodium Succinate 40 mg 05/02/19 14:05 05/05/19 10:29 Solu-Medrol - IVPUSH 40 mg Q8H-IV ELISSA Administration Metoprolol Tartrate 5 mg 04/30/19 08:57 05/05/19 06:38 Lopressor Injection - IVPUSH 5 mg Q4H PRN Administration TACHYCARDIA Metoprolol Tartrate 25 mg 05/02/19 13:45 05/05/19 10:31 Lopressor - PO Not Given BID ELISSA Pantoprazole Sodium 40 mg 05/01/19 10:00 05/05/19 10:27 Protonix Iv IVPUSH 40 mg DAILY ELISSA Administration Impression 1. RYNE 2. hyperkalemia 3. resp failure requiring intubation 4. resp acidosis 5. dm 6. hx htn 7. sleep apnea 8. obesity 9. hx non compliance 10. chf 11. sarcoid 12. volume overload Plan - cont to monitor renal function - volume status improving - cont lasix, he is now on 5 mg drip - pending bed at [place] - monitor urine output - ph improved on last abg
--- NOTE | 2019-05-05 14:17 | PN ---
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, Physician History of Present Illness: REMAINS ON VENTILATOR OFF PARALYTICS HYPOTENSIVE ON PRESSORS NO ACUTE DISTRESS AFEBRILE WBC WNL REPEAT BC NO GROWTH ECHO NO VEGETATIONS CXR IMRPOVED - Current Medication List Current Medications: Active Medications Albuterol/Ipratropium (Duoneb -) 1 amp NEB RQID ELISSA Last Admin: 05/05/19 08:00 Dose: 1 amp Chlorhexidine Gluconate (Hibiclens For Decolonization -) 1 applic TP HS ELISSA Last Admin: 05/04/19 21:06 Dose: 1 applic Heparin Sodium (Porcine) (Heparin -) 1,000 unit IVPUSH PRN PRN PRN Reason: Heparin Last Admin: 05/03/19 09:17 Dose: 1,000 unit Heparin Sodium (Porcine) (Heparin -) 5,000 unit IVPUSH PRN PRN PRN Reason: Heparin Last Admin: 05/02/19 10:07 Dose: 5,000 unit Vasopressin 50 units/ Sodium (Chloride) 100 mls @ 4 mls/hr IVPB ASDIR ELISSA; Protocol Last Admin: 05/05/19 10:25 Dose: 2.4 units/hr, 4.8 mls/hr Propofol (Diprivan -) 1,000,000 mcg in 100 mls @ 4.082 mls/hr IVPB TITR ELISSA; Protocol Last Admin: 05/05/19 07:29 Dose: 50 mcg/kg/min, 40.823 mls/hr Heparin Sodium (Porcine) 50, (000 unit/ Sodium Chloride) 500 mls @ 10 mls/hr IV TITR ELISSA; Protocol Last Admin: 05/04/19 14:26 Dose: 1,500 unit/hr, 15 mls/hr Norepinephrine Bitartrate 8, 000 mcg/ Dextrose/Sodium Chloride 500 mls @ 18.75 mls/hr IV TITR ELISSA; Protocol Last Titration: 05/05/19 07:37 Dose: 2 mcg/min, 7.5 mls/hr Piperacillin Sod/Tazobactam (Sod 3.375 gm/ Dextrose) 50 mls @ 100 mls/hr IVPB Q8H-IV ELISSA; Protocol Last Admin: 05/05/19 10:29 Dose: 100 mls/hr Fentanyl 500 mcg/ Dextrose 100 mls @ 10 mls/hr IVPB TITR ELISSA; Protocol Last Titration: 05/05/19 08:35 Dose: 100 mcg/hr, 20 mls/hr Insulin Human Regular 100 (units/ Sodium Chloride) 100 mls @ 14.34 mls/hr IVPB TITR [facility]; Protocol Last Titration: 05/05/19 11:24 Dose: 0.01 units/kg/hr, 1.5 mls/hr Furosemide 100 mg/ Dextrose 100 mls @ 5 mls/hr IVPB TITR ELISSA; Protocol Stop: 05/05/19 23:59 Last Admin: 05/05/19 11:25 Dose: 5 mg/hr, 5 mls/hr Methylprednisolone Sodium Succinate (Solu-Medrol -) 40 mg IVPUSH Q8H-IV ELISSA Last Admin: 05/05/19 10:29 Dose: 40 mg Metoprolol Tartrate (Lopressor Injection -) 5 mg IVPUSH Q4H PRN PRN Reason: TACHYCARDIA Last Admin: 05/05/19 06:38 Dose: 5 mg Metoprolol Tartrate (Lopressor -) 25 mg PO BID [facility] Last Admin: 05/05/19 10:31 Dose: Not Given Pantoprazole Sodium (Protonix Iv) 40 mg IVPUSH DAILY [facility] Last Admin: 05/05/19 10:27 Dose: 40 mg - Objective Vital Signs: Vital Signs Temperature 98.2 F 05/05/19 10:00 Pulse Rate 78 05/05/19 12:00 Respiratory Rate 36 H 05/05/19 09:51 Blood Pressure 154/105 H 05/05/19 12:00 O2 Sat by Pulse Oximetry (%) 94 L 05/05/19 09:51 Constitutional: Yes: Obese Cardiovascular: Yes: Regular Rate and Rhythm, S1, S2 Respiratory: Yes: Mechanically Ventilated Gastrointestinal: Yes: Normal Bowel Sounds, Soft. No: Tenderness Edema: Yes Labs: CBC, BMP 05/05/19 05:30 05/05/19 05:30 INR, PTT INR 1.09 (0.83-1.09) 05/05/19 05:30 Assessment/Plan ACUTE RESP FAILURE CHF/ PNEUMONIA +BC SCN, GPR ? SIGNIFICANCE RENAL FAILURE CONTINUE VENTILATORY/ HEMODYNAMIC SUPPORT CONTINUE ZOSYN/ ZITHROMAX REDOSE VANCOMYCIN
[2019-05-05] MEDS ORDERED: VANCOMYCIN HCL 1,250 MG in DEXTROSE 5%-WATER - 250 ML IVPB ONE (15:00)
[2019-05-05] MEDS: SODIUM CHLORIDE IV SCH (15:48)
[2019-05-05] MEDS: HEPARIN IV SCH (15:48)
[2019-05-05] MEDS: INSULIN REGULAR 100 UNITS in SODIUM CHLORIDE 99 ML IVPB SCH (15:48)
--- NOTE | 2019-05-05 16:46 | PN ---
Physical Exam: SUBJECTIVE: Patient seen and examined. Patient started on Levophed overnight as blood pressure dropped due to Lopressor use for rate control. Still pending bed availability at [facility], spoke with family regarding whether or not they would be open to transfer to a different hospital but they stated they preferred waiting for availability at [place] as patient's previous care is there. OBJECTIVE: Vital Signs Period Temp Pulse Resp BP Sys/[place] Pulse Ox Last 24 Hr 97.8 F-99.3 F 77-151 36-36 84-155/47-105 94-99 GENERAL: intubated, sedated HEAD: Normal with no signs of trauma. EYES: PERRL ENT: MMM NECK: Trachea midline, supple, Left IJ in place LUNGS: Mechanically ventilated, coarse breath sounds bilaterally, tachypnic HEART: tachycardic ABDOMEN: obese, soft, nontender, decreased bowel sounds EXTREMITIES: 2+ pulses, warm, well-perfused. 1+ non pitting edema bilateral lower extremities NEUROLOGICAL: poor gag reflex, normal muscle tone SKIN: Warm, dry, normal turgor Laboratory Results - last 24 hr 05/04/19 05/04/19 05/04/19 17:35 17:35 18:54 WBC RBC Hgb Hct MCV MCH MCHC RDW Plt Count MPV PT with INR INR PTT (Actin FS) Anticoagulation Therapy No Result Required. Puncture Site Arterial line ABG pH 7.44 ABG pCO2 at Pt Temp 54.1 H ABG pO2 at Pt Temp 102 H ABG HCO3 35.9 H ABG O2 Sat (Measured) 96.5 ABG O2 Content 20.5 ABG Base Excess 9.8 H Adrian Test Not applicable O2 Delivery Device Esprit Oxygen Flow Rate 70 Vent Mode Ak Vent Rate 36 Mechanical Rate No Result Required. PEEP 15.0 Pressure Support Vent 325 Sodium 141 Potassium 3.5 Chloride 97 L Carbon Dioxide 37 H Anion Gap 7 L BUN 51.4 H Creatinine 1.5 H Est GFR (CKD-EPI)AfAm 61.59 Est GFR (CKD-EPI)NonAf 53.14 POC Glucometer 157 Random Glucose 165 H Calcium 8.7 Phosphorus 5.4 H Magnesium 1.9 Total Bilirubin Direct Bilirubin AST ALT Alkaline Phosphatase Creatine Kinase Troponin I Total Protein Albumin Random Vancomycin 05/04/19 05/04/19 05/05/19 21:03 23:46 01:31 WBC RBC Hgb Hct MCV MCH MCHC RDW Plt Count MPV PT with INR INR PTT (Actin FS) Anticoagulation Therapy Puncture Site ABG pH ABG pCO2 at Pt Temp ABG pO2 at Pt Temp ABG HCO3 ABG O2 Sat (Measured) ABG O2 Content ABG Base Excess Adrian Test O2 Delivery Device Oxygen Flow Rate Vent Mode Vent Rate Mechanical Rate PEEP Pressure Support Vent Sodium Potassium Chloride Carbon Dioxide Anion Gap BUN Creatinine Est GFR (CKD-EPI)AfAm Est GFR (CKD-EPI)NonAf POC Glucometer 158 158 117 Random Glucose Calcium Phosphorus Magnesium Total Bilirubin Direct Bilirubin AST ALT Alkaline Phosphatase Creatine Kinase Troponin I Total Protein Albumin Random Vancomycin 05/05/19 05/05/19 05/05/19 01:56 03:10 04:02 WBC RBC Hgb Hct MCV MCH MCHC RDW Plt Count MPV PT with INR INR PTT (Actin FS) Anticoagulation Therapy Puncture Site ABG pH ABG pCO2 at Pt Temp ABG pO2 at Pt Temp ABG HCO3 ABG O2 Sat (Measured) ABG O2 Content ABG Base Excess Adrian Test O2 Delivery Device Oxygen Flow Rate Vent Mode Vent Rate Mechanical Rate PEEP Pressure Support Vent Sodium Potassium Chloride Carbon Dioxide Anion Gap BUN Creatinine Est GFR (CKD-EPI)AfAm Est GFR (CKD-EPI)NonAf POC Glucometer 128 172 172 Random Glucose Calcium Phosphorus Magnesium Total Bilirubin Direct Bilirubin AST ALT Alkaline Phosphatase Creatine Kinase Troponin I Total Protein Albumin Random Vancomycin 05/05/19 05/05/19 05/05/19 04:23 05:30 05:30 WBC 8.9 RBC 4.38 Hgb 10.6 L Hct 34.5 L MCV 78.8 L MCH 24.3 L MCHC 30.8 L RDW 19.9 H Plt Count 342 MPV 8.2 PT with INR INR PTT (Actin FS) Anticoagulation Therapy Puncture Site ABG pH ABG pCO2 at Pt Temp ABG pO2 at Pt Temp ABG HCO3 ABG O2 Sat (Measured) ABG O2 Content ABG Base Excess Adrian Test O2 Delivery Device Oxygen Flow Rate Vent Mode Vent Rate Mechanical Rate PEEP Pressure Support Vent Sodium Potassium Chloride Carbon Dioxide Anion Gap BUN Creatinine Est GFR (CKD-EPI)AfAm Est GFR (CKD-EPI)NonAf POC Glucometer 171 Random Glucose Calcium Phosphorus Magnesium Total Bilirubin Direct Bilirubin AST ALT Alkaline Phosphatase Creatine Kinase Troponin I Total Protein Albumin Random Vancomycin 16.8 L 05/05/19 05/05/19 05/05/19 05:30 05:30 05:36 WBC RBC Hgb Hct MCV MCH MCHC RDW Plt Count MPV PT with INR 12.90 INR 1.09 PTT (Actin FS) 66.9 H Anticoagulation Therapy Puncture Site ABG pH ABG pCO2 at Pt Temp ABG pO2 at Pt Temp ABG HCO3 ABG O2 Sat (Measured) ABG O2 Content ABG Base Excess Adrian Test O2 Delivery Device Oxygen Flow Rate Vent Mode Vent Rate Mechanical Rate PEEP Pressure Support Vent Sodium 141 Potassium 3.9 Chloride 98 Carbon Dioxide 34 H Anion Gap 9 BUN 58.6 H Creatinine 1.6 H Est GFR (CKD-EPI)AfAm 56.97 Est GFR (CKD-EPI)NonAf 49.15 POC Glucometer 155 Random Glucose 157 H Calcium 8.9 Phosphorus 6.2 H Magnesium 2.0 Total Bilirubin 0.5 Direct Bilirubin 0.2 AST 21 ALT 29 Alkaline Phosphatase 80 Creatine Kinase 55 Troponin I < 0.02 Total Protein 5.9 L Albumin 2.6 L Random Vancomycin 05/05/19 05/05/19 05/05/19 06:35 06:54 08:10 WBC RBC Hgb Hct MCV MCH MCHC RDW Plt Count MPV PT with INR INR PTT (Actin FS) Anticoagulation Therapy No Result Required. Puncture Site Arterial line ABG pH 7.38 ABG pCO2 at Pt Temp 58.1 H ABG pO2 at Pt Temp 86.2 ABG HCO3 33.5 H ABG O2 Sat (Measured) 95.0 ABG O2 Content 14.0 ABG Base Excess 7.4 H Adrian Test Not applicable O2 Delivery Device Mech vent Oxygen Flow Rate 70% Vent Mode A/c Vent Rate 36 Mechanical Rate Yes PEEP 15.0 Pressure Support Vent 325 Sodium Potassium Chloride Carbon Dioxide Anion Gap BUN Creatinine Est GFR (CKD-EPI)AfAm Est GFR (CKD-EPI)NonAf POC Glucometer 148 153 Random Glucose Calcium Phosphorus Magnesium Total Bilirubin Direct Bilirubin AST ALT Alkaline Phosphatase Creatine Kinase Troponin I Total Protein Albumin Random Vancomycin 05/05/19 05/05/19 05/05/19 10:09 11:19 12:19 WBC RBC Hgb Hct MCV MCH MCHC RDW Plt Count MPV PT with INR INR PTT (Actin FS) Anticoagulation Therapy Puncture Site ABG pH ABG pCO2 at Pt Temp ABG pO2 at Pt Temp ABG HCO3 ABG O2 Sat (Measured) ABG O2 Content ABG Base Excess Adrian Test O2 Delivery Device Oxygen Flow Rate Vent Mode Vent Rate Mechanical Rate PEEP Pressure Support Vent Sodium Potassium Chloride Carbon Dioxide Anion Gap BUN Creatinine Est GFR (CKD-EPI)AfAm Est GFR (CKD-EPI)NonAf POC Glucometer 134 130 148 Random Glucose Calcium Phosphorus Magnesium Total Bilirubin Direct Bilirubin AST ALT Alkaline Phosphatase Creatine Kinase Troponin I Total Protein Albumin Random Vancomycin 05/05/19 05/05/19 05/05/19 13:04 14:00 15:58 WBC RBC Hgb Hct MCV MCH MCHC RDW Plt Count MPV PT with INR INR PTT (Actin FS) Anticoagulation Therapy Puncture Site ABG pH ABG pCO2 at Pt Temp ABG pO2 at Pt Temp ABG HCO3 ABG O2 Sat (Measured) ABG O2 Content ABG Base Excess Adrian Test O2 Delivery Device Oxygen Flow Rate Vent Mode Vent Rate Mechanical Rate PEEP Pressure Support Vent Sodium Potassium Chloride Carbon Dioxide Anion Gap BUN Creatinine Est GFR (CKD-EPI)AfAm Est GFR (CKD-EPI)NonAf POC Glucometer 163 170 194 Random Glucose Calcium Phosphorus Magnesium Total Bilirubin Direct Bilirubin AST ALT Alkaline Phosphatase Creatine Kinase Troponin I Total Protein Albumin Random Vancomycin Active Medications Generic Name Dose Route Start Last Admin Trade Name Freq PRN Reason Stop Dose Admin Albuterol/Ipratropium 1 amp 04/30/19 16:00 05/05/19 12:10 Duoneb - NEB 1 amp RQID ELISSA Administration Chlorhexidine Gluconate 1 applic 04/30/19 22:00 05/04/19 21:06 Hibiclens For Decolonization - TP 1 applic HS ELISSA Administration Heparin Sodium (Porcine) 1,000 unit 04/30/19 10:40 05/03/19 09:17 Heparin - IVPUSH 1,000 unit PRN PRN Administration Heparin Heparin Sodium (Porcine) 5,000 unit 04/30/19 10:40 05/02/19 10:07 Heparin - IVPUSH 5,000 unit PRN PRN Administration Heparin Vasopressin 50 units/ Sodium 100 mls @ 4 mls/hr 04/30/19 09:30 05/05/19 10:25 Chloride IVPB 2.4 units/hr ASDIR ELISSA 4.8 mls/hr Administration Protocol 2 UNITS/HR Propofol 1,000,000 mcg in 100 mls @ 4.082 mls/hr 04/30/19 10:15 05/05/19 15: 53 Diprivan - IVPB 50 mcg/kg/min TITR ELISSA 40.823 mls/hr Administration Protocol 5 MCG/KG/MIN Heparin Sodium (Porcine) 50, 500 mls @ 10 mls/hr 04/30/19 10:45 05/05/19 15: 48 000 unit/ Sodium Chloride IV 1,500 unit/hr TITR ELISSA 15 mls/hr Administration Protocol 1,000 UNIT/HR Norepinephrine Bitartrate 8, 500 mls @ 18.75 mls/hr 04/30/19 14:00 05/05/19 15:50 000 mcg/ Dextrose/Sodium IV Not Given Chloride TITR ELISSA Protocol 5 MCG/MIN Piperacillin Sod/Tazobactam 50 mls @ 100 mls/hr 05/01/19 18:00 05/05/19 10:29 Sod 3.375 gm/ Dextrose IVPB 100 mls/hr Q8H-IV ELISSA Administration Protocol Fentanyl 500 mcg/ Dextrose 100 mls @ 10 mls/hr 05/01/19 12:45 05/05/19 15:49 IVPB Not Given TITR ELISSA Protocol 50 MCG/HR Insulin Human Regular 100 100 mls @ 14.34 mls/hr 05/02/19 12:00 05/05/19 15: 48 units/ Sodium Chloride IVPB Not Given TITR ELISSA Protocol 0.1 UNITS/KG/HR Furosemide 100 mg/ Dextrose 100 mls @ 5 mls/hr 05/04/19 11:00 05/05/19 11:25 IVPB 05/05/19 23:59 5 mg/hr TITR ELISSA 5 mls/hr Administration Protocol 5 MG/HR Vancomycin HCl 1,250 mg/ 250 mls @ 250 mls/2 hr 05/05/19 15:00 05/05/19 15:50 Dextrose IVPB 05/05/19 16:59 250 mls/2 hr ONCE ONE Administration Protocol Methylprednisolone Sodium Succinate 40 mg 05/02/19 14:05 05/05/19 10:29 Solu-Medrol - IVPUSH 40 mg Q8H-IV ELISSA Administration Metoprolol Tartrate 5 mg 04/30/19 08:57 05/05/19 06:38 Lopressor Injection - IVPUSH 5 mg Q4H PRN Administration TACHYCARDIA Metoprolol Tartrate 25 mg 05/02/19 13:45 05/05/19 10:31 Lopressor - PO Not Given BID ELISSA Pantoprazole Sodium 40 mg 05/01/19 10:00 05/05/19 10:27 Protonix Iv IVPUSH 40 mg DAILY ELISSA Administration ASSESSMENT/PLAN: 53 y/o/m with PMHx of DM2, HFpEF(last EF: 45-50%), 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 #Acute Hypoxic and Hypercapneic Respiratory Failure/ EMMY - Pt. intubated and Sedated - sedated on Propofol and fentanyl - Vecuronium discontinued - Recent ABGs with improvement, oxygen weaned to 70% - Pulm consulted - Duonebs RQID - Solumedrol 40mg Q8h IV - Follow CXRs - most recent CXR showing improvement in aeration of left lung - Azithromycin 500mg QD, Zosyn IV Q8hr - ID consulted (Dr. Garcia) - Positive blood culture bottle initially but repeat blood cultures negative to date #HFpEF vs. Cardiogenic shock - Lasix drip restarted - Strict Is & Os, daily weights - ECHO difficult to assess, unremarkable - BNP: 1634 - Trop negative x2 - Cardiology Consult (Dr. Encinas) - Vasopressin and Levophed for pressor support #Atrial Flutter - Lopressor 25mg PO BID - Lopressor 5mg IVpush Q4hr PRN for rate control - Heparin drip #RYNE on CKD w/ Hyperkalemia - BUN/Cr 58.6/1.6 - Nephrology Consulted (Dr. Kelley) - Likely secondary to volume overload. Pt. likely has CKD given risk factors of DM2 (uncontrolled glucose) and Heart Failure - Hyperkalemia resolved, no indication for HD at this time - lasix drip restarted - continue to monitor BMP - Hold Lisinopril #DM2 - BGM ACHS - ISS ACHS - Insulin drip started due to poor sugar control #FEN - no IVF - monitor electrolytes. K+ normalized - feeds through NG tube #DVT Ppx. - Heparin drip - Protonix #Disposition - Continue ICU monitoring - Possible transfer to [facility] Visit type - Emergency Visit Emergency Visit: Yes ED Registration Date: 04/30/19 Care time: The patient presented to the Emergency Department on the above date and was hospitalized for further evaluation of their emergent condition. - New Patient This patient is new to me today: No - Critical Care Critical Care patient: Yes Total Critical Care Time (in minutes): 36 Critical Care Statement: The care of this patient involved high complexity decision making to prevent further life threatening deterioration of the patient 's condition and/or to evaluate & treat vital organ system(s) failure or risk of failure. ATTENDING PHYSICIAN STATEMENT I saw and evaluated the patient. I reviewed the resident's note and discussed the case with the resident. I agree with the resident's findings and plan as documented. SUBJECTIVE: OBJECTIVE: ASSESSMENT AND PLAN:
[2019-05-05] MEDS ORDERED: PROPOFOL 1,000,000 MCG/100 ML VIAL ONE (20:25)
[2019-05-05] MEDS: CHLORHEXIDINE GLUCONATE 4% CLEANSER FOR DECOLONIZATION TP SCH (21:27)
[2019-05-06] MEDS ORDERED: PIPERACILLIN/TAZOBACTAM 3.375 GM VIAL IVPB ONE ×4 (01:32→22:31)
[2019-05-06] MEDS ORDERED: DEXTROSE 5%-WATER - 50 ML IVPB ONE ×4 (01:33→22:31)
[2019-05-06] MEDS: PIPERACILLIN/TAZOB 3.375 GM 3.375 GM in DEXTROSE 5%-WATER - 50 ML IVPB SCH ×3 (01:36→16:59)
[2019-05-06] MEDS: methylPREDNISolone NA SUCC 40 MG/1 ML VIAL IVPUSH SCH ×3 (01:36→17:00)
[2019-05-06] MEDS: PROPOFOL 1,000,000 MCG/100 ML VIAL IVPB SCH ×8 (01:37→23:53)
[2019-05-06] MEDS ORDERED: fentaNYL CITRATE 250 MCG/5 ML VIAL ONE ×3 (04:47→22:31)
[2019-05-06 06:24] LABS: ARTERIAL BLD GAS O2 SATURATION 96.7 % (95-98); ARTERIAL BLOOD GAS BASE EXCESS 6.3 meq/l (-2-2); ARTERIAL BLOOD GAS PCO2 58.2 mmHg (35-45); ARTERIAL BLOOD GAS PO2 104 mmHg (80-100); ARTERIAL BLOOD GAS pH 7.37 (7.35-7.45)
[2019-05-06 06:27] LABS: BASO % 0.2 % (0-2.0); HEMATOCRIT 35.3 % (35.4-49); MCH 24.1 pg (25.7-33.7); MCHC 31.1 g/dl (32.0-35.9); MEAN CELL VOLUME 77.4 fl (80-96); MEAN PLT VOLUME 8.2 fl (7.5-11.1); MONO % 4.2 % (3.8-10.2); NEUT % 93.6 % (42.8-82.8); PLATELET COUNT 357 K/MM3 (134-434); RBC 4.56 M/mm3 (4.00-5.60); RDW 19.3 % (11.9-15.9)
[2019-05-06] MEDS: FENTANYL INJECTION 500 MCG in DEXTROSE 5%-WATER - 90 ML IVPB SCH ×4 (06:32→22:39)
[2019-05-06 07:32] LABS: ALBUMIN 2.9 g/dl (3.4-5.0); BILIRUBIN,TOTAL 0.6 mg/dL (0.2-1); BLOOD UREA NITROGEN 62.2 mg/dL (7-18); CALCIUM 9.3 mg/dL (8.5-10.1); CREATININE 1.8 mg/dL (0.55-1.3); MAGNESIUM 2.2 mg/dL (1.8-2.4); PHOSPHOROUS 5.8 mg/dL (2.5-4.9); POTASSIUM 3.8 mmol/L (3.5-5.1); TOT PROT 6.6 g/dl (6.4-8.2)
[2019-05-06] MEDS: ALBUTEROL SO4 2.5/IPRATROPIUM 0.5 INH SOL 3 ML VIAL.NEB. NEB SCH ×4 (07:50→20:30)
--- NOTE | 2019-05-06 08:01 | PN ---
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 (short form) - Note 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: Chief Complaint: Events noted, notes reviewed, remains sedated and intubated, remains on pressors, atrial flutter persists with periods of rapid ventricular response History of Present Illness: Seen and examined in the ICU. Events noted, notes reviewed, remains sedated and intubated, remains on pressors, atrial flutter persists with periods of rapid ventricular response Current Medications: Current Medications Albuterol/Ipratropium (Duoneb -) 1 amp NEB RQID ELISSA Last Admin: 05/06/19 07:50 Dose: 1 amp Chlorhexidine Gluconate (Hibiclens For Decolonization -) 1 applic TP HS ELISSA Last Admin: 05/05/19 21:27 Dose: 1 applic Heparin Sodium (Porcine) (Heparin -) 1,000 unit IVPUSH PRN PRN PRN Reason: Heparin Last Admin: 05/03/19 09:17 Dose: 1,000 unit Heparin Sodium (Porcine) (Heparin -) 5,000 unit IVPUSH PRN PRN PRN Reason: Heparin Last Admin: 05/02/19 10:07 Dose: 5,000 unit Vasopressin 50 units/ Sodium (Chloride) 100 mls @ 4 mls/hr IVPB ASDIR ELISSA; Protocol Last Admin: 05/05/19 10:25 Dose: 2.4 units/hr, 4.8 mls/hr Propofol (Diprivan -) 1,000,000 mcg in 100 mls @ 4.082 mls/hr IVPB TITR ELISSA; Protocol Last Admin: 05/06/19 06:31 Dose: 50 mcg/kg/min, 40.823 mls/hr Heparin Sodium (Porcine) 50, (000 unit/ Sodium Chloride) 500 mls @ 10 mls/hr IV TITR ELISSA; Protocol Last Admin: 05/05/19 15:48 Dose: 1,500 unit/hr, 15 mls/hr Norepinephrine Bitartrate 8, 000 mcg/ Dextrose/Sodium Chloride 500 mls @ 18.75 mls/hr IV TITR ELISSA; Protocol Last Titration: 05/05/19 22:56 Dose: 0.5 mcg/min, 1.87 mls/hr Piperacillin Sod/Tazobactam (Sod 3.375 gm/ Dextrose) 50 mls @ 100 mls/hr IVPB Q8H-IV ELISSA; Protocol Last Admin: 05/06/19 01:36 Dose: 100 mls/hr Fentanyl 500 mcg/ Dextrose 100 mls @ 10 mls/hr IVPB TITR [facility]; Protocol Last Admin: 05/06/19 06:32 Dose: 100 mcg/hr, 20 mls/hr Insulin Human Regular 100 (units/ Sodium Chloride) 100 mls @ 14.34 mls/hr IVPB TITR ELISSA; Protocol Last Titration: 05/06/19 05:28 Dose: 0.03 units/kg/hr, 4.5 mls/hr Methylprednisolone Sodium Succinate (Solu-Medrol -) 40 mg IVPUSH Q8H-IV ELISSA Last Admin: 05/06/19 01:36 Dose: 40 mg Metoprolol Tartrate (Lopressor Injection -) 5 mg IVPUSH Q4H PRN PRN Reason: TACHYCARDIA Last Admin: 05/05/19 06:38 Dose: 5 mg Metoprolol Tartrate (Lopressor -) 25 mg PO BID [facility] Last Admin: 05/05/19 21:27 Dose: Not Given Pantoprazole Sodium (Protonix Iv) 40 mg IVPUSH DAILY [facility] Last Admin: 05/05/19 10:27 Dose: 40 mg Review of Systems Unable to obtain - Objective Vital Signs: Last Vital Signs Temp Pulse Resp BP Pulse Ox 98.3 F 115 H 36 H 119/76 100 05/06/19 05:00 05/06/19 08:00 05/06/19 08:33 05/06/19 08:00 05/06/19 07:00 Intake & Output 05/03/19 05/04/19 05/05/19 05/06/19 23:59 23:59 23:59 23:59 Intake Total 3101 5383 2381 1303 Output Total 5400 6300 3700 1000 Balance -1209 -917 -1319 303 Weight 305 lb 8 oz 302 lb 9.6 oz 299 lb 14.4 oz 297 lb 3.2 oz Neck: Supple negative JVD no bruit Cardiovascular: S1 S2 Irregularly Irregular Respiratory: Diminished Breath Sounds Bilaterally Gastrointestinal: Soft Benign Normal Bowel Sounds Ext: Edema Bilaterally Labs: CBC, BMP 05/06/19 05:20 05/06/19 05:20 Hepatic Panel Total Bilirubin 0.6 mg/dL (0.2-1) 05/06/19 05:20 Direct Bilirubin 0.2 mg/dL (0.0-0.2) 05/05/19 05:30 AST 34 U/L (15-37) 05/06/19 05:20 ALT 39 U/L (13-61) 05/06/19 05:20 Alkaline Phosphatase 89 U/L (45-117) 05/06/19 05:20 Albumin 2.9 g/dl (3.4-5.0) L 05/06/19 05:20 ABG Results ABG pH 7.37 (7.35-7.45) 05/06/19 06:10 ABG pCO2 at Pt Temp 58.2 mmHg (35-45) H 05/06/19 06:10 ABG pO2 at Pt Temp 104 mmHg (80-100) H 05/06/19 06:10 ABG HCO3 32.5 mmol/L (22-27) H 05/06/19 06:10 ABG O2 Sat (Measured) 96.7 % (95-98) 05/06/19 06:10 ABG O2 Content 14.7 % vol 05/06/19 06:10 ABG Base Excess 6.3 meq/l (-2-2) H 05/06/19 06:10 Assessment/Plan: ASSESSMENT: 1. Acute hypoxic and hypercapneic respiratory failure on mechanical ventilation 2. Pneumonia complicated by septic shock, remains on pressors 3. Persistent atrial flutter/paroxysmal atrial fibrillation [id number] score of 0 on A/C Heparin 4. Diastolic LV dysfunction with clinical class 0 NYHA clasification LV failure 5. Sarcoidosis confirmed by skin biopsy, R/O cardiac involvement- outpatient evaluation 6. DM 7. 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 Acute on CKD 9. Anemia PLAN: 1. Ventilator management as per ICU team 2. Antibiotics as per the primary team 3. Attempt to wean off pressors, maintain MAP's equal or > 65 mmHg 4. Attempt B-Blockers to assist with rate control hemodynamics permitting 5. Continue A/C with Heparin and eventual change to DOAS's/Eliquis 6. Diuretics as needed with caution 7. Eventual F/U with Dr. Genaro Davila (cardiology at [place]) for cardiac PET or MRI to exclude cardiac involvement in sarcoidosis/as outpatient aMycol King MD
--- NOTE | 2019-05-06 08:28 | PN ---
Physical Exam: SUBJECTIVE: Patient seen and examined. No acute events overnight. Still on levophed and vasopressin for pressor support. Informed by nurse that [facility] has been in touch regarding status of patient. OBJECTIVE: Vital Signs Period Temp Pulse Resp BP Sys/[place] Pulse Ox Last 24 Hr 97.4 F-98.7 F 75-115 34-36 90-154/48-105 94-100 GENERAL: intubated, sedated on Fentanyl and Propofol HEAD: Normal with no signs of trauma. EYES: PERRL ENT: dry mucous membranes NECK: Trachea midline, supple, Left IJ in place LUNGS: Mechanically ventilated, coarse breath sounds bilaterally, tachypnic HEART: tachycardic, regular rhythm ABDOMEN: obese, soft, nontender, decreased bowel sounds EXTREMITIES: 2+ pulses, warm, well-perfused. 1+ non pitting edema bilateral lower extremities NEUROLOGICAL: poor gag reflex, normal muscle tone SKIN: Warm, dry, normal turgor Laboratory Results - last 24 hr 05/05/19 05/05/19 05/05/19 05:30 05:30 10:09 WBC RBC Hgb Hct MCV MCH MCHC RDW Plt Count MPV Absolute Neuts (auto) Neutrophils % Lymphocytes % Monocytes % Eosinophils % Basophils % Nucleated RBC % PTT (Actin FS) Anticoagulation Therapy Puncture Site ABG pH ABG pCO2 at Pt Temp ABG pO2 at Pt Temp ABG HCO3 ABG O2 Sat (Measured) ABG O2 Content ABG Base Excess Adrian Test O2 Delivery Device Oxygen Flow Rate Vent Mode Vent Rate Mechanical Rate PEEP Pressure Support Vent Sodium 141 Potassium 3.9 Chloride 98 Carbon Dioxide 34 H Anion Gap 9 BUN 58.6 H Creatinine 1.6 H Est GFR (CKD-EPI)AfAm 56.97 Est GFR (CKD-EPI)NonAf 49.15 POC Glucometer 134 Random Glucose 157 H Calcium 8.9 Phosphorus 6.2 H Magnesium 2.0 Total Bilirubin 0.5 Direct Bilirubin 0.2 AST 21 ALT 29 Alkaline Phosphatase 80 Creatine Kinase 55 Troponin I < 0.02 Total Protein 5.9 L Albumin 2.6 L Random Vancomycin 16.8 L 05/05/19 05/05/19 05/05/19 11:19 12:19 13:04 WBC RBC Hgb Hct MCV MCH MCHC RDW Plt Count MPV Absolute Neuts (auto) Neutrophils % Lymphocytes % Monocytes % Eosinophils % Basophils % Nucleated RBC % PTT (Actin FS) Anticoagulation Therapy Puncture Site ABG pH ABG pCO2 at Pt Temp ABG pO2 at Pt Temp ABG HCO3 ABG O2 Sat (Measured) ABG O2 Content ABG Base Excess Adrian Test O2 Delivery Device Oxygen Flow Rate Vent Mode Vent Rate Mechanical Rate PEEP Pressure Support Vent Sodium Potassium Chloride Carbon Dioxide Anion Gap BUN Creatinine Est GFR (CKD-EPI)AfAm Est GFR (CKD-EPI)NonAf POC Glucometer 130 148 163 Random Glucose Calcium Phosphorus Magnesium Total Bilirubin Direct Bilirubin AST ALT Alkaline Phosphatase Creatine Kinase Troponin I Total Protein Albumin Random Vancomycin 05/05/19 05/05/19 05/05/19 14:00 15:58 16:58 WBC RBC Hgb Hct MCV MCH MCHC RDW Plt Count MPV Absolute Neuts (auto) Neutrophils % Lymphocytes % Monocytes % Eosinophils % Basophils % Nucleated RBC % PTT (Actin FS) Anticoagulation Therapy Puncture Site ABG pH ABG pCO2 at Pt Temp ABG pO2 at Pt Temp ABG HCO3 ABG O2 Sat (Measured) ABG O2 Content ABG Base Excess Adrian Test O2 Delivery Device Oxygen Flow Rate Vent Mode Vent Rate Mechanical Rate PEEP Pressure Support Vent Sodium Potassium Chloride Carbon Dioxide Anion Gap BUN Creatinine Est GFR (CKD-EPI)AfAm Est GFR (CKD-EPI)NonAf POC Glucometer 170 194 244 Random Glucose Calcium Phosphorus Magnesium Total Bilirubin Direct Bilirubin AST ALT Alkaline Phosphatase Creatine Kinase Troponin I Total Protein Albumin Random Vancomycin 05/05/19 05/05/19 05/05/19 18:13 19:04 20:13 WBC RBC Hgb Hct MCV MCH MCHC RDW Plt Count MPV Absolute Neuts (auto) Neutrophils % Lymphocytes % Monocytes % Eosinophils % Basophils % Nucleated RBC % PTT (Actin FS) Anticoagulation Therapy Puncture Site ABG pH ABG pCO2 at Pt Temp ABG pO2 at Pt Temp ABG HCO3 ABG O2 Sat (Measured) ABG O2 Content ABG Base Excess Adrian Test O2 Delivery Device Oxygen Flow Rate Vent Mode Vent Rate Mechanical Rate PEEP Pressure Support Vent Sodium Potassium Chloride Carbon Dioxide Anion Gap BUN Creatinine Est GFR (CKD-EPI)AfAm Est GFR (CKD-EPI)NonAf POC Glucometer 229 210 204 Random Glucose Calcium Phosphorus Magnesium Total Bilirubin Direct Bilirubin AST ALT Alkaline Phosphatase Creatine Kinase Troponin I Total Protein Albumin Random Vancomycin 05/05/19 05/05/19 05/05/19 21:22 22:44 23:44 WBC RBC Hgb Hct MCV MCH MCHC RDW Plt Count MPV Absolute Neuts (auto) Neutrophils % Lymphocytes % Monocytes % Eosinophils % Basophils % Nucleated RBC % PTT (Actin FS) Anticoagulation Therapy Puncture Site ABG pH ABG pCO2 at Pt Temp ABG pO2 at Pt Temp ABG HCO3 ABG O2 Sat (Measured) ABG O2 Content ABG Base Excess Adrian Test O2 Delivery Device Oxygen Flow Rate Vent Mode Vent Rate Mechanical Rate PEEP Pressure Support Vent Sodium Potassium Chloride Carbon Dioxide Anion Gap BUN Creatinine Est GFR (CKD-EPI)AfAm Est GFR (CKD-EPI)NonAf POC Glucometer [phone] Random Glucose Calcium Phosphorus Magnesium Total Bilirubin Direct Bilirubin AST ALT Alkaline Phosphatase Creatine Kinase Troponin I Total Protein Albumin Random Vancomycin 05/06/19 05/06/19 05/06/19 00:44 01:39 01:57 WBC RBC Hgb Hct MCV MCH MCHC RDW Plt Count MPV Absolute Neuts (auto) Neutrophils % Lymphocytes % Monocytes % Eosinophils % Basophils % Nucleated RBC % PTT (Actin FS) Anticoagulation Therapy Puncture Site ABG pH ABG pCO2 at Pt Temp ABG pO2 at Pt Temp ABG HCO3 ABG O2 Sat (Measured) ABG O2 Content ABG Base Excess Adrian Test O2 Delivery Device Oxygen Flow Rate Vent Mode Vent Rate Mechanical Rate PEEP Pressure Support Vent Sodium Potassium Chloride Carbon Dioxide Anion Gap BUN Creatinine Est GFR (CKD-EPI)AfAm Est GFR (CKD-EPI)NonAf POC Glucometer [phone] Random Glucose Calcium Phosphorus Magnesium Total Bilirubin Direct Bilirubin AST ALT Alkaline Phosphatase Creatine Kinase Troponin I Total Protein Albumin Random Vancomycin 05/06/19 05/06/19 05/06/19 03:07 04:19 05:20 WBC RBC Hgb Hct MCV MCH MCHC RDW Plt Count MPV Absolute Neuts (auto) Neutrophils % Lymphocytes % Monocytes % Eosinophils % Basophils % Nucleated RBC % PTT (Actin FS) Anticoagulation Therapy Puncture Site ABG pH ABG pCO2 at Pt Temp ABG pO2 at Pt Temp ABG HCO3 ABG O2 Sat (Measured) ABG O2 Content ABG Base Excess Adrian Test O2 Delivery Device Oxygen Flow Rate Vent Mode Vent Rate Mechanical Rate PEEP Pressure Support Vent Sodium Potassium Chloride Carbon Dioxide Anion Gap BUN Creatinine Est GFR (CKD-EPI)AfAm Est GFR (CKD-EPI)NonAf POC Glucometer 161 195 Random Glucose Calcium Phosphorus Magnesium Total Bilirubin Direct Bilirubin AST ALT Alkaline Phosphatase Creatine Kinase Troponin I Total Protein Albumin Random Vancomycin 19.0 05/06/19 05/06/19 05/06/19 05:20 05:20 05:20 WBC 9.0 RBC 4.56 Hgb 11.0 L Hct 35.3 L MCV 77.4 L MCH 24.1 L MCHC 31.1 L RDW 19.3 H Plt Count 357 MPV 8.2 Absolute Neuts (auto) 8.4 H Neutrophils % 93.6 H Lymphocytes % 2.0 L Monocytes % 4.2 Eosinophils % 0.0 Basophils % 0.2 Nucleated RBC % 0 PTT (Actin FS) 69.3 H Anticoagulation Therapy Puncture Site ABG pH ABG pCO2 at Pt Temp ABG pO2 at Pt Temp ABG HCO3 ABG O2 Sat (Measured) ABG O2 Content ABG Base Excess Adrian Test O2 Delivery Device Oxygen Flow Rate Vent Mode Vent Rate Mechanical Rate PEEP Pressure Support Vent Sodium 143 Potassium 3.8 Chloride 100 Carbon Dioxide 32 Anion Gap 12 BUN 62.2 H Creatinine 1.8 H Est GFR (CKD-EPI)AfAm 49.40 Est GFR (CKD-EPI)NonAf 42.63 POC Glucometer Random Glucose 160 H Calcium 9.3 Phosphorus 5.8 H Magnesium 2.2 Total Bilirubin 0.6 Direct Bilirubin AST 34 ALT 39 Alkaline Phosphatase 89 Creatine Kinase Troponin I Total Protein 6.6 Albumin 2.9 L Random Vancomycin 05/06/19 05/06/19 05/06/19 05:20 06:10 06:24 WBC RBC Hgb Hct MCV MCH MCHC RDW Plt Count MPV Absolute Neuts (auto) Neutrophils % Lymphocytes % Monocytes % Eosinophils % Basophils % Nucleated RBC % PTT (Actin FS) Anticoagulation Therapy No Result Required. Puncture Site Arterial line ABG pH 7.37 ABG pCO2 at Pt Temp 58.2 H ABG pO2 at Pt Temp 104 H ABG HCO3 32.5 H ABG O2 Sat (Measured) 96.7 ABG O2 Content 14.7 ABG Base Excess 6.3 H Adrian Test Not applicable O2 Delivery Device Mech vent Oxygen Flow Rate 70% Vent Mode A/c Vent Rate 36 Mechanical Rate Yes PEEP 15.0 Pressure Support Vent 325 Sodium Potassium Chloride Carbon Dioxide Anion Gap BUN Creatinine Est GFR (CKD-EPI)AfAm Est GFR (CKD-EPI)NonAf POC Glucometer 153 147 Random Glucose Calcium Phosphorus Magnesium Total Bilirubin Direct Bilirubin AST ALT Alkaline Phosphatase Creatine Kinase Troponin I Total Protein Albumin Random Vancomycin Active Medications Generic Name Dose Route Start Last Admin Trade Name Freq PRN Reason Stop Dose Admin Albuterol/Ipratropium 1 amp 04/30/19 16:00 05/05/19 20:51 Duoneb - NEB 1 amp RQID ELISSA Administration Chlorhexidine Gluconate 1 applic 04/30/19 22:00 05/05/19 21:27 Hibiclens For Decolonization - TP 1 applic HS ELISSA Administration Heparin Sodium (Porcine) 1,000 unit 04/30/19 10:40 05/03/19 09:17 Heparin - IVPUSH 1,000 unit PRN PRN Administration Heparin Heparin Sodium (Porcine) 5,000 unit 04/30/19 10:40 05/02/19 10:07 Heparin - IVPUSH 5,000 unit PRN PRN Administration Heparin Vasopressin 50 units/ Sodium 100 mls @ 4 mls/hr 04/30/19 09:30 05/05/19 10:25 Chloride IVPB 2.4 units/hr ASDIR ELISSA 4.8 mls/hr Administration Protocol 2 UNITS/HR Propofol 1,000,000 mcg in 100 mls @ 4.082 mls/hr 04/30/19 10:15 05/06/19 06: 31 Diprivan - IVPB 50 mcg/kg/min TITR ELISSA 40.823 mls/hr Administration Protocol 5 MCG/KG/MIN Heparin Sodium (Porcine) 50, 500 mls @ 10 mls/hr 04/30/19 10:45 05/05/19 15: 48 000 unit/ Sodium Chloride IV 1,500 unit/hr TITR ELISSA 15 mls/hr Administration Protocol 1,000 UNIT/HR Norepinephrine Bitartrate 8, 500 mls @ 18.75 mls/hr 04/30/19 14:00 05/05/19 22:56 000 mcg/ Dextrose/Sodium IV 0.5 mcg/min Chloride TITR ELISSA 1.87 mls/hr Titration Protocol 5 MCG/MIN Piperacillin Sod/Tazobactam 50 mls @ 100 mls/hr 05/01/19 18:00 05/06/19 01:36 Sod 3.375 gm/ Dextrose IVPB 100 mls/hr Q8H-IV ELISSA Administration Protocol Fentanyl 500 mcg/ Dextrose 100 mls @ 10 mls/hr 05/01/19 12:45 05/06/19 06:32 IVPB 100 mcg/hr TITR ELISSA 20 mls/hr Administration Protocol 50 MCG/HR Insulin Human Regular 100 100 mls @ 14.34 mls/hr 05/02/19 12:00 05/06/19 05: 28 units/ Sodium Chloride IVPB 0.03 units/kg/hr TITR ELISSA 4.5 mls/hr Titration Protocol 0.1 UNITS/KG/HR Methylprednisolone Sodium Succinate 40 mg 05/02/19 14:05 05/06/19 01:36 Solu-Medrol - IVPUSH 40 mg Q8H-IV ELISSA Administration Metoprolol Tartrate 5 mg 04/30/19 08:57 05/05/19 06:38 Lopressor Injection - IVPUSH 5 mg Q4H PRN Administration TACHYCARDIA Metoprolol Tartrate 25 mg 05/02/19 13:45 05/05/19 21:27 Lopressor - PO Not Given BID ELISSA Pantoprazole Sodium 40 mg 05/01/19 10:00 05/05/19 10:27 Protonix Iv IVPUSH 40 mg DAILY ELISSA Administration ASSESSMENT/PLAN: 53 y/o/m with PMHx of DM2, HFpEF(last EF: 45-50%), 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 #Acute Hypoxic and Hypercapneic Respiratory Failure/ EMMY - Pt. intubated and Sedated - sedated on Propofol and fentanyl - Vecuronium discontinued - Recent ABGs with improvement, oxygen weaned to 70% - Pulm consulted - Hans RQID - Solumedrol 40mg Q8h IV - Follow CXRs - improved aeration of both lungs. - Azithromycin 500mg QD, Zosyn IV Q8hr - Redose Vanco per levels - ID consulted (Dr. Garcia) - Positive blood culture bottle initially but repeat blood cultures negative to date #HFpEF vs. Cardiogenic shock - Lasix drip @ 5mg/hr. Patient making good urine, negative balance daily - Strict Is & Os, daily weights - ECHO difficult to assess, unremarkable - BNP: 1634 - Trop negative x2 - Cardiology Consult (Dr. Encinas) - Vasopressin 2.4 unit/hour and Levophed 1mcg/min for pressor support #Atrial Flutter - Lopressor 25mg PO BID - Lopressor 5mg IVpush Q4hr PRN for rate control - Heparin drip #RYNE on CKD w/ Hyperkalemia - BUN/Cr 62.2/1.8, fluctuating levels - Nephrology Consulted (Dr. Kelley) - Likely secondary to volume overload. Pt. likely has CKD given risk factors of DM2 (uncontrolled glucose) and Heart Failure - Hyperkalemia resolved, no indication for HD at this time - lasix drip - continue to monitor BMP - Hold Lisinopril, restart 10mg QD once improved - Cardio recommends cardiac PET or MRI to exclude cardiac involvement in sarcoidosis as outpatient. F/u with Dr. Genaro Davila at [facility] #DM2 - BGM ACHS - ISS ACHS - Insulin drip, improved sugar control #FEN - no standing IVF - monitor electrolytes. K+ normalized - feeds through NG tube #DVT Ppx. - Heparin drip - Protonix #Disposition - Continue ICU monitoring, wean pressors and oxygen as tolerated - Possible transfer to [facility], pending bed availability Visit type - Emergency Visit Emergency Visit: Yes ED Registration Date: 04/30/19 Care time: The patient presented to the Emergency Department on the above date and was hospitalized for further evaluation of their emergent condition. - New Patient This patient is new to me today: No - Critical Care Critical Care patient: Yes Total Critical Care Time (in minutes): 36 Critical Care Statement: The care of this patient involved high complexity decision making to prevent further life threatening deterioration of the patient 's condition and/or to evaluate & treat vital organ system(s) failure or risk of failure. ATTENDING PHYSICIAN STATEMENT I saw and evaluated the patient. I reviewed the resident's note and discussed the case with the resident. I agree with the resident's findings and plan as documented. SUBJECTIVE: OBJECTIVE: ASSESSMENT AND PLAN:
[2019-05-06] MEDS: PANTOPRAZOLE SODIUM 40 MG VIAL IVPUSH SCH (09:44)
[2019-05-06] MEDS: METOPROLOL TARTRATE 25 MG TABLET (FP) PO SCH ×2 (09:44→21:10)
[2019-05-06] MEDS ORDERED: VASOPRESSIN 20 UNITS/ML VIAL IV ONE (10:30)
--- NOTE | 2019-05-06 11:32 | PN ---
Teaching Attending Note Name of Resident: Ju Lopez ATTENDING PHYSICIAN STATEMENT I saw and evaluated the patient. I reviewed the resident's note and discussed the case with the resident. I agree with the resident's findings and plan as documented. SUBJECTIVE: Patient seen and examined in the ICU. Remains intubated and sedated. Clinically appears. AC Mode of vent, 60% FiO2 and PEEP 12. Low dose pressors for hemodynamic support. Remains on Lasix drip. CXR: improved Intake & Output 05/03/19 05/04/19 05/05/19 05/06/19 23:59 23:59 23:59 23:59 Intake Total 3101 5383 2381 1303 Output Total 5400 6300 3700 1000 Balance -6291 -277 -1319 303 Weight 305 lb 8 oz 302 lb 9.6 oz 299 lb 14.4 oz 297 lb 3.2 oz Last Vital Signs Temp Pulse Resp BP Pulse Ox 98.0 F 98 H 36 H 121/81 99 05/06/19 10:00 05/06/19 10:00 05/06/19 10:00 05/06/19 10:00 05/06/19 10:00 Active Medications Albuterol/Ipratropium (Duoneb -) 1 amp NEB RQID ELISSA Last Admin: 05/06/19 07:50 Dose: 1 amp Chlorhexidine Gluconate (Hibiclens For Decolonization -) 1 applic TP HS [facility] Last Admin: 05/05/19 21:27 Dose: 1 applic Heparin Sodium (Porcine) (Heparin -) 1,000 unit IVPUSH PRN PRN PRN Reason: Heparin Last Admin: 05/03/19 09:17 Dose: 1,000 unit Heparin Sodium (Porcine) (Heparin -) 5,000 unit IVPUSH PRN PRN PRN Reason: Heparin Last Admin: 05/02/19 10:07 Dose: 5,000 unit Vasopressin 50 units/ Sodium (Chloride) 100 mls @ 4 mls/hr IVPB ASDIR ELISSA; Protocol Last Admin: 05/05/19 10:25 Dose: 2.4 units/hr, 4.8 mls/hr Propofol (Diprivan -) 1,000,000 mcg in 100 mls @ 4.082 mls/hr IVPB TITR ELISSA; Protocol Last Admin: 05/06/19 10:59 Dose: 50 mcg/kg/min, 40.823 mls/hr Heparin Sodium (Porcine) 50, (000 unit/ Sodium Chloride) 500 mls @ 10 mls/hr IV TITR ELISSA; Protocol Last Admin: 05/05/19 15:48 Dose: 1,500 unit/hr, 15 mls/hr Norepinephrine Bitartrate 8, 000 mcg/ Dextrose/Sodium Chloride 500 mls @ 18.75 mls/hr IV TITR ELISSA; Protocol Last Titration: 05/06/19 08:00 Dose: 0 mcg/min, 0 mls/hr Piperacillin Sod/Tazobactam (Sod 3.375 gm/ Dextrose) 50 mls @ 100 mls/hr IVPB Q8H-IV ELISSA; Protocol Last Admin: 05/06/19 09:44 Dose: 100 mls/hr Fentanyl 500 mcg/ Dextrose 100 mls @ 10 mls/hr IVPB TITR ELISSA; Protocol Last Admin: 05/06/19 06:32 Dose: 100 mcg/hr, 20 mls/hr Insulin Human Regular 100 (units/ Sodium Chloride) 100 mls @ 14.34 mls/hr IVPB TITR ELISSA; Protocol Last Titration: 05/06/19 08:30 Dose: 0 units/kg/hr, 0 mls/hr Furosemide 100 mg/ Sodium (Chloride) 100 mls @ 5 mls/hr IVPB ASDIR ELISSA; Protocol Methylprednisolone Sodium Succinate (Solu-Medrol -) 40 mg IVPUSH Q8H-IV ELISSA Last Admin: 05/06/19 09:44 Dose: 40 mg Metoprolol Tartrate (Lopressor Injection -) 5 mg IVPUSH Q4H PRN PRN Reason: TACHYCARDIA Last Admin: 05/05/19 06:38 Dose: 5 mg Metoprolol Tartrate (Lopressor -) 25 mg PO BID ELISSA Last Admin: 05/06/19 09:44 Dose: 25 mg Pantoprazole Sodium (Protonix Iv) 40 mg IVPUSH DAILY ELISSA Last Admin: 05/06/19 09:44 Dose: 40 mg Gen: intubated, sedated Heart: tachy, irreg, s1S2 Lung: Vented, bilateral rhonchi, diminished Lt lung sounds Abd: soft, nontender Ext:+1 edema improved 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 Laboratory Results - last 24 hr 05/05/19 05/05/19 05/05/19 12:19 13:04 14:00 WBC RBC Hgb Hct MCV MCH MCHC RDW Plt Count MPV Absolute Neuts (auto) Neutrophils % Lymphocytes % Monocytes % Eosinophils % Basophils % Nucleated RBC % PTT (Actin FS) Anticoagulation Therapy Puncture Site ABG pH ABG pCO2 at Pt Temp ABG pO2 at Pt Temp ABG HCO3 ABG O2 Sat (Measured) ABG O2 Content ABG Base Excess Adrian Test O2 Delivery Device Oxygen Flow Rate Vent Mode Vent Rate Mechanical Rate PEEP Pressure Support Vent Sodium Potassium Chloride Carbon Dioxide Anion Gap BUN Creatinine Est GFR (CKD-EPI)AfAm Est GFR (CKD-EPI)NonAf POC Glucometer 148 163 170 Random Glucose Calcium Phosphorus Magnesium Total Bilirubin AST ALT Alkaline Phosphatase Total Protein Albumin Random Vancomycin 05/05/19 05/05/19 05/05/19 15:58 16:58 18:13 WBC RBC Hgb Hct MCV MCH MCHC RDW Plt Count MPV Absolute Neuts (auto) Neutrophils % Lymphocytes % Monocytes % Eosinophils % Basophils % Nucleated RBC % PTT (Actin FS) Anticoagulation Therapy Puncture Site ABG pH ABG pCO2 at Pt Temp ABG pO2 at Pt Temp ABG HCO3 ABG O2 Sat (Measured) ABG O2 Content ABG Base Excess Adrian Test O2 Delivery Device Oxygen Flow Rate Vent Mode Vent Rate Mechanical Rate PEEP Pressure Support Vent Sodium Potassium Chloride Carbon Dioxide Anion Gap BUN Creatinine Est GFR (CKD-EPI)AfAm Est GFR (CKD-EPI)NonAf POC Glucometer [phone] Random Glucose Calcium Phosphorus Magnesium Total Bilirubin AST ALT Alkaline Phosphatase Total Protein Albumin Random Vancomycin 05/05/19 05/05/19 05/05/19 19:04 20:13 21:22 WBC RBC Hgb Hct MCV MCH MCHC RDW Plt Count MPV Absolute Neuts (auto) Neutrophils % Lymphocytes % Monocytes % Eosinophils % Basophils % Nucleated RBC % PTT (Actin FS) Anticoagulation Therapy Puncture Site ABG pH ABG pCO2 at Pt Temp ABG pO2 at Pt Temp ABG HCO3 ABG O2 Sat (Measured) ABG O2 Content ABG Base Excess Adrian Test O2 Delivery Device Oxygen Flow Rate Vent Mode Vent Rate Mechanical Rate PEEP Pressure Support Vent Sodium Potassium Chloride Carbon Dioxide Anion Gap BUN Creatinine Est GFR (CKD-EPI)AfAm Est GFR (CKD-EPI)NonAf POC Glucometer [phone] Random Glucose Calcium Phosphorus Magnesium Total Bilirubin AST ALT Alkaline Phosphatase Total Protein Albumin Random Vancomycin 0105/05/19 05/06/19 22:44 23:44 00:44 WBC RBC Hgb Hct MCV MCH MCHC RDW Plt Count MPV Absolute Neuts (auto) Neutrophils % Lymphocytes % Monocytes % Eosinophils % Basophils % Nucleated RBC % PTT (Actin FS) Anticoagulation Therapy Puncture Site ABG pH ABG pCO2 at Pt Temp ABG pO2 at Pt Temp ABG HCO3 ABG O2 Sat (Measured) ABG O2 Content ABG Base Excess Adrian Test O2 Delivery Device Oxygen Flow Rate Vent Mode Vent Rate Mechanical Rate PEEP Pressure Support Vent Sodium Potassium Chloride Carbon Dioxide Anion Gap BUN Creatinine Est GFR (CKD-EPI)AfAm Est GFR (CKD-EPI)NonAf POC Glucometer [phone] Random Glucose Calcium Phosphorus Magnesium Total Bilirubin AST ALT Alkaline Phosphatase Total Protein Albumin Random Vancomycin 05/06/19 05/06/19 05/06/19 01:39 01:57 03:07 WBC RBC Hgb Hct MCV MCH MCHC RDW Plt Count MPV Absolute Neuts (auto) Neutrophils % Lymphocytes % Monocytes % Eosinophils % Basophils % Nucleated RBC % PTT (Actin FS) Anticoagulation Therapy Puncture Site ABG pH ABG pCO2 at Pt Temp ABG pO2 at Pt Temp ABG HCO3 ABG O2 Sat (Measured) ABG O2 Content ABG Base Excess Adrian Test O2 Delivery Device Oxygen Flow Rate Vent Mode Vent Rate Mechanical Rate PEEP Pressure Support Vent Sodium Potassium Chloride Carbon Dioxide Anion Gap BUN Creatinine Est GFR (CKD-EPI)AfAm Est GFR (CKD-EPI)NonAf POC Glucometer [phone] Random Glucose Calcium Phosphorus Magnesium Total Bilirubin AST ALT Alkaline Phosphatase Total Protein Albumin Random Vancomycin 05/06/19 05/06/19 05/06/19 04:19 05:20 05:20 WBC RBC Hgb Hct MCV MCH MCHC RDW Plt Count MPV Absolute Neuts (auto) Neutrophils % Lymphocytes % Monocytes % Eosinophils % Basophils % Nucleated RBC % PTT (Actin FS) 69.3 H Anticoagulation Therapy Puncture Site ABG pH ABG pCO2 at Pt Temp ABG pO2 at Pt Temp ABG HCO3 ABG O2 Sat (Measured) ABG O2 Content ABG Base Excess Adrian Test O2 Delivery Device Oxygen Flow Rate Vent Mode Vent Rate Mechanical Rate PEEP Pressure Support Vent Sodium Potassium Chloride Carbon Dioxide Anion Gap BUN Creatinine Est GFR (CKD-EPI)AfAm Est GFR (CKD-EPI)NonAf POC Glucometer 195 Random Glucose Calcium Phosphorus Magnesium Total Bilirubin AST ALT Alkaline Phosphatase Total Protein Albumin Random Vancomycin 19.0 05/06/19 05/06/19 05/06/19 05:20 05:20 05:20 WBC 9.0 RBC 4.56 Hgb 11.0 L Hct 35.3 L MCV 77.4 L MCH 24.1 L MCHC 31.1 L RDW 19.3 H Plt Count 357 MPV 8.2 Absolute Neuts (auto) 8.4 H Neutrophils % 93.6 H Lymphocytes % 2.0 L Monocytes % 4.2 Eosinophils % 0.0 Basophils % 0.2 Nucleated RBC % 0 PTT (Actin FS) Anticoagulation Therapy Puncture Site ABG pH ABG pCO2 at Pt Temp ABG pO2 at Pt Temp ABG HCO3 ABG O2 Sat (Measured) ABG O2 Content ABG Base Excess Adrian Test O2 Delivery Device Oxygen Flow Rate Vent Mode Vent Rate Mechanical Rate PEEP Pressure Support Vent Sodium 143 Potassium 3.8 Chloride 100 Carbon Dioxide 32 Anion Gap 12 BUN 62.2 H Creatinine 1.8 H Est GFR (CKD-EPI)AfAm 49.40 Est GFR (CKD-EPI)NonAf 42.63 POC Glucometer 153 Random Glucose 160 H Calcium 9.3 Phosphorus 5.8 H Magnesium 2.2 Total Bilirubin 0.6 AST 34 ALT 39 Alkaline Phosphatase 89 Total Protein 6.6 Albumin 2.9 L Random Vancomycin 05/06/19 05/06/19 05/06/19 06:10 06:24 08:37 WBC RBC Hgb Hct MCV MCH MCHC RDW Plt Count MPV Absolute Neuts (auto) Neutrophils % Lymphocytes % Monocytes % Eosinophils % Basophils % Nucleated RBC % PTT (Actin FS) Anticoagulation Therapy No Result Required. Puncture Site Arterial line ABG pH 7.37 ABG pCO2 at Pt Temp 58.2 H ABG pO2 at Pt Temp 104 H ABG HCO3 32.5 H ABG O2 Sat (Measured) 96.7 ABG O2 Content 14.7 ABG Base Excess 6.3 H Adrian Test Not applicable O2 Delivery Device Mech vent Oxygen Flow Rate 70% Vent Mode A/c Vent Rate 36 Mechanical Rate Yes PEEP 15.0 Pressure Support Vent 325 Sodium Potassium Chloride Carbon Dioxide Anion Gap BUN Creatinine Est GFR (CKD-EPI)AfAm Est GFR (CKD-EPI)NonAf POC Glucometer 147 119 Random Glucose Calcium Phosphorus Magnesium Total Bilirubin AST ALT Alkaline Phosphatase Total Protein Albumin Random Vancomycin 05/06/19 05/06/19 05/06/19 09:00 09:53 10:50 WBC RBC Hgb Hct MCV MCH MCHC RDW Plt Count MPV Absolute Neuts (auto) Neutrophils % Lymphocytes % Monocytes % Eosinophils % Basophils % Nucleated RBC % PTT (Actin FS) Anticoagulation Therapy Puncture Site ABG pH ABG pCO2 at Pt Temp ABG pO2 at Pt Temp ABG HCO3 ABG O2 Sat (Measured) ABG O2 Content ABG Base Excess Adrian Test O2 Delivery Device Oxygen Flow Rate Vent Mode Vent Rate Mechanical Rate PEEP Pressure Support Vent Sodium Potassium Chloride Carbon Dioxide Anion Gap BUN Creatinine Est GFR (CKD-EPI)AfAm Est GFR (CKD-EPI)NonAf POC Glucometer [phone] Random Glucose Calcium Phosphorus Magnesium Total Bilirubin AST ALT Alkaline Phosphatase Total Protein Albumin Random Vancomycin ASSESSMENT AND PLAN: Acute Hypoxic and Hypercapneic Respiratory Failure due to ARDS Pneumonia Gram Positive Bacteremia Septic Shock Volume Overload Lactic Acidosis Hyperkalemia Acute Kidney Injury Atrial Flutter with RVR HTN DM Anemia - Wean FiO2/PEEP as tolerated / Lung protective ventilation - Aggressive pulm toilet - ABX per ID - keep Pplat <30 - Continue sedation for vent synchrony - Wean off pressor; goal MAP>65 - Monitor urine output, creatinine - Monitor lytes - Medrol - Inhaled bronchodilators - Rate control - Continue anticoagulation - DVT/GI prophylaxis - continue ICU monitoring - prognosis guarded May still benefit from prone positioning which cannot be done here: For potential transfer for tertiary care center Dr [facility] Critical care time spent in reviewing chart, evaluating patient and formulating plan - 36 minutes.
[2019-05-06 12:00] LABS: ANISOCYTOSIS 1+; MACROCYTOSIS 0; PLATELET ESTIMATE NORMAL
[2019-05-06] MEDS ORDERED: PT OWN MED DRAWER 7, Y5N ONE ×2 (12:22→16:49)
[2019-05-06] MEDS: FUROSEMIDE INJECTION 100 MG in SODIUM CHLORIDE 90 ML IVPB SCH (12:38)
[2019-05-06] MEDS: VASOPRESSIN 50 UNITS in SODIUM CHLORIDE 97.5 ML IVPB SCH (12:38)
[2019-05-06] MEDS: INSULIN REGULAR 100 UNITS in SODIUM CHLORIDE 99 ML IVPB SCH (12:38)
--- NOTE | 2019-05-06 13:16 | PN ---
Physical Exam: SUBJECTIVE: Patient seen and examined. remains intubated. No event overnight. OBJECTIVE: Vital Signs Period Temp Pulse Resp BP Sys/[place] Pulse Ox Last 24 Hr 97.4 F-98.7 F 75-115 34-36 91-147/48-97 99-100 GENERAL: INTUBATED. HEAD: Normal with no signs of trauma. LUNGS: more vesicular breath sound than yesterday HEART: irregular rate and rhythm and tachy, S1, S2 without murmur, rub or gallop. ABDOMEN: Soft, nontender, distended and obese EXTREMITIES: 2+ pulses, warm, well-perfused,1+ edema. NEUROLOGICAL: intubated and sedated SKIN: Warm, dry, lesion on middle finger on right hand Laboratory Results - last 24 hr 05/05/19 05/05/19 05/05/19 14:00 15:58 16:58 WBC RBC Hgb Hct MCV MCH MCHC RDW Plt Count MPV Absolute Neuts (auto) Neutrophils % Neutrophils % (Manual) Band Neutrophils % Lymphocytes % Lymphocytes % (Manual) Monocytes % Monocytes % (Manual) Eosinophils % Eosinophils % (Manual) Basophils % Basophils % (Manual) Myelocytes % (Man) Promyelocytes % (Man) Blast Cells % (Manual) Nucleated RBC % Metamyelocytes Hypochromia Platelet Estimate Platelet Comment Polychromasia Anisocytosis Microcytosis Macrocytosis PTT (Actin FS) Anticoagulation Therapy Puncture Site ABG pH ABG pCO2 at Pt Temp ABG pO2 at Pt Temp ABG HCO3 ABG O2 Sat (Measured) ABG O2 Content ABG Base Excess Adrian Test O2 Delivery Device Oxygen Flow Rate Vent Mode Vent Rate Mechanical Rate PEEP Pressure Support Vent Sodium Potassium Chloride Carbon Dioxide Anion Gap BUN Creatinine Est GFR (CKD-EPI)AfAm Est GFR (CKD-EPI)NonAf POC Glucometer [phone] Random Glucose Calcium Phosphorus Magnesium Total Bilirubin AST ALT Alkaline Phosphatase Total Protein Albumin Random Vancomycin 05/05/19 05/05/19 05/05/19 18:13 19:04 20:13 WBC RBC Hgb Hct MCV MCH MCHC RDW Plt Count MPV Absolute Neuts (auto) Neutrophils % Neutrophils % (Manual) Band Neutrophils % Lymphocytes % Lymphocytes % (Manual) Monocytes % Monocytes % (Manual) Eosinophils % Eosinophils % (Manual) Basophils % Basophils % (Manual) Myelocytes % (Man) Promyelocytes % (Man) Blast Cells % (Manual) Nucleated RBC % Metamyelocytes Hypochromia Platelet Estimate Platelet Comment Polychromasia Anisocytosis Microcytosis Macrocytosis PTT (Actin FS) Anticoagulation Therapy Puncture Site ABG pH ABG pCO2 at Pt Temp ABG pO2 at Pt Temp ABG HCO3 ABG O2 Sat (Measured) ABG O2 Content ABG Base Excess Adrian Test O2 Delivery Device Oxygen Flow Rate Vent Mode Vent Rate Mechanical Rate PEEP Pressure Support Vent Sodium Potassium Chloride Carbon Dioxide Anion Gap BUN Creatinine Est GFR (CKD-EPI)AfAm Est GFR (CKD-EPI)NonAf POC Glucometer [phone] Random Glucose Calcium Phosphorus Magnesium Total Bilirubin AST ALT Alkaline Phosphatase Total Protein Albumin Random Vancomycin 05/05/19 05/05/19 05/05/19 21:22 22:44 23:44 WBC RBC Hgb Hct MCV MCH MCHC RDW Plt Count MPV Absolute Neuts (auto) Neutrophils % Neutrophils % (Manual) Band Neutrophils % Lymphocytes % Lymphocytes % (Manual) Monocytes % Monocytes % (Manual) Eosinophils % Eosinophils % (Manual) Basophils % Basophils % (Manual) Myelocytes % (Man) Promyelocytes % (Man) Blast Cells % (Manual) Nucleated RBC % Metamyelocytes Hypochromia Platelet Estimate Platelet Comment Polychromasia Anisocytosis Microcytosis Macrocytosis PTT (Actin FS) Anticoagulation Therapy Puncture Site ABG pH ABG pCO2 at Pt Temp ABG pO2 at Pt Temp ABG HCO3 ABG O2 Sat (Measured) ABG O2 Content ABG Base Excess Adrian Test O2 Delivery Device Oxygen Flow Rate Vent Mode Vent Rate Mechanical Rate PEEP Pressure Support Vent Sodium Potassium Chloride Carbon Dioxide Anion Gap BUN Creatinine Est GFR (CKD-EPI)AfAm Est GFR (CKD-EPI)NonAf POC Glucometer [phone] Random Glucose Calcium Phosphorus Magnesium Total Bilirubin AST ALT Alkaline Phosphatase Total Protein Albumin Random Vancomycin 05/06/19 05/06/19 05/06/19 00:44 01:39 01:57 WBC RBC Hgb Hct MCV MCH MCHC RDW Plt Count MPV Absolute Neuts (auto) Neutrophils % Neutrophils % (Manual) Band Neutrophils % Lymphocytes % Lymphocytes % (Manual) Monocytes % Monocytes % (Manual) Eosinophils % Eosinophils % (Manual) Basophils % Basophils % (Manual) Myelocytes % (Man) Promyelocytes % (Man) Blast Cells % (Manual) Nucleated RBC % Metamyelocytes Hypochromia Platelet Estimate Platelet Comment Polychromasia Anisocytosis Microcytosis Macrocytosis PTT (Actin FS) Anticoagulation Therapy Puncture Site ABG pH ABG pCO2 at Pt Temp ABG pO2 at Pt Temp ABG HCO3 ABG O2 Sat (Measured) ABG O2 Content ABG Base Excess Adrian Test O2 Delivery Device Oxygen Flow Rate Vent Mode Vent Rate Mechanical Rate PEEP Pressure Support Vent Sodium Potassium Chloride Carbon Dioxide Anion Gap BUN Creatinine Est GFR (CKD-EPI)AfAm Est GFR (CKD-EPI)NonAf POC Glucometer [phone] Random Glucose Calcium Phosphorus Magnesium Total Bilirubin AST ALT Alkaline Phosphatase Total Protein Albumin Random Vancomycin 05/06/19 05/06/19 05/06/19 03:07 04:19 05:20 WBC RBC Hgb Hct MCV MCH MCHC RDW Plt Count MPV Absolute Neuts (auto) Neutrophils % Neutrophils % (Manual) Band Neutrophils % Lymphocytes % Lymphocytes % (Manual) Monocytes % Monocytes % (Manual) Eosinophils % Eosinophils % (Manual) Basophils % Basophils % (Manual) Myelocytes % (Man) Promyelocytes % (Man) Blast Cells % (Manual) Nucleated RBC % Metamyelocytes Hypochromia Platelet Estimate Platelet Comment Polychromasia Anisocytosis Microcytosis Macrocytosis PTT (Actin FS) Anticoagulation Therapy Puncture Site ABG pH ABG pCO2 at Pt Temp ABG pO2 at Pt Temp ABG HCO3 ABG O2 Sat (Measured) ABG O2 Content ABG Base Excess Adrian Test O2 Delivery Device Oxygen Flow Rate Vent Mode Vent Rate Mechanical Rate PEEP Pressure Support Vent Sodium Potassium Chloride Carbon Dioxide Anion Gap BUN Creatinine Est GFR (CKD-EPI)AfAm Est GFR (CKD-EPI)NonAf POC Glucometer [phone] Random Glucose Calcium Phosphorus Magnesium Total Bilirubin AST ALT Alkaline Phosphatase Total Protein Albumin Random Vancomycin 19.0 05/06/19 05/06/19 05/06/19 05:20 05:20 05:20 WBC 9.0 RBC 4.56 Hgb 11.0 L Hct 35.3 L MCV 77.4 L MCH 24.1 L MCHC 31.1 L RDW 19.3 H Plt Count 357 MPV 8.2 Absolute Neuts (auto) 8.4 H Neutrophils % 93.6 H Neutrophils % (Manual) 97.9 H Band Neutrophils % 0.0 Lymphocytes % 2.0 L Lymphocytes % (Manual) 0.0 L Monocytes % 4.2 Monocytes % (Manual) 2 L Eosinophils % 0.0 Eosinophils % (Manual) 0.0 Basophils % 0.2 Basophils % (Manual) 0.0 Myelocytes % (Man) 0 D Promyelocytes % (Man) 0 Blast Cells % (Manual) 0 Nucleated RBC % 0 Metamyelocytes 0 Hypochromia 0 Platelet Estimate Normal Platelet Comment Present Polychromasia 0 Anisocytosis 1+ Microcytosis 1+ Macrocytosis 0 PTT (Actin FS) 69.3 H Anticoagulation Therapy Puncture Site ABG pH ABG pCO2 at Pt Temp ABG pO2 at Pt Temp ABG HCO3 ABG O2 Sat (Measured) ABG O2 Content ABG Base Excess Adrian Test O2 Delivery Device Oxygen Flow Rate Vent Mode Vent Rate Mechanical Rate PEEP Pressure Support Vent Sodium 143 Potassium 3.8 Chloride 100 Carbon Dioxide 32 Anion Gap 12 BUN 62.2 H Creatinine 1.8 H Est GFR (CKD-EPI)AfAm 49.40 Est GFR (CKD-EPI)NonAf 42.63 POC Glucometer Random Glucose 160 H Calcium 9.3 Phosphorus 5.8 H Magnesium 2.2 Total Bilirubin 0.6 AST 34 ALT 39 Alkaline Phosphatase 89 Total Protein 6.6 Albumin 2.9 L Random Vancomycin 05/06/19 05/06/19 05/06/19 05:20 06:10 06:24 WBC RBC Hgb Hct MCV MCH MCHC RDW Plt Count MPV Absolute Neuts (auto) Neutrophils % Neutrophils % (Manual) Band Neutrophils % Lymphocytes % Lymphocytes % (Manual) Monocytes % Monocytes % (Manual) Eosinophils % Eosinophils % (Manual) Basophils % Basophils % (Manual) Myelocytes % (Man) Promyelocytes % (Man) Blast Cells % (Manual) Nucleated RBC % Metamyelocytes Hypochromia Platelet Estimate Platelet Comment Polychromasia Anisocytosis Microcytosis Macrocytosis PTT (Actin FS) Anticoagulation Therapy No Result Required. Puncture Site Arterial line ABG pH 7.37 ABG pCO2 at Pt Temp 58.2 H ABG pO2 at Pt Temp 104 H ABG HCO3 32.5 H ABG O2 Sat (Measured) 96.7 ABG O2 Content 14.7 ABG Base Excess 6.3 H Adrian Test Not applicable O2 Delivery Device Mech vent Oxygen Flow Rate 70% Vent Mode A/c Vent Rate 36 Mechanical Rate Yes PEEP 15.0 Pressure Support Vent 325 Sodium Potassium Chloride Carbon Dioxide Anion Gap BUN Creatinine Est GFR (CKD-EPI)AfAm Est GFR (CKD-EPI)NonAf POC Glucometer 153 147 Random Glucose Calcium Phosphorus Magnesium Total Bilirubin AST ALT Alkaline Phosphatase Total Protein Albumin Random Vancomycin 05/06/19 05/06/19 05/06/19 08:37 09:00 09:53 WBC RBC Hgb Hct MCV MCH MCHC RDW Plt Count MPV Absolute Neuts (auto) Neutrophils % Neutrophils % (Manual) Band Neutrophils % Lymphocytes % Lymphocytes % (Manual) Monocytes % Monocytes % (Manual) Eosinophils % Eosinophils % (Manual) Basophils % Basophils % (Manual) Myelocytes % (Man) Promyelocytes % (Man) Blast Cells % (Manual) Nucleated RBC % Metamyelocytes Hypochromia Platelet Estimate Platelet Comment Polychromasia Anisocytosis Microcytosis Macrocytosis PTT (Actin FS) Anticoagulation Therapy Puncture Site ABG pH ABG pCO2 at Pt Temp ABG pO2 at Pt Temp ABG HCO3 ABG O2 Sat (Measured) ABG O2 Content ABG Base Excess Adrian Test O2 Delivery Device Oxygen Flow Rate Vent Mode Vent Rate Mechanical Rate PEEP Pressure Support Vent Sodium Potassium Chloride Carbon Dioxide Anion Gap BUN Creatinine Est GFR (CKD-EPI)AfAm Est GFR (CKD-EPI)NonAf POC Glucometer [phone] Random Glucose Calcium Phosphorus Magnesium Total Bilirubin AST ALT Alkaline Phosphatase Total Protein Albumin Random Vancomycin 05/06/19 05/06/19 10:50 11:35 WBC RBC Hgb Hct MCV MCH MCHC RDW Plt Count MPV Absolute Neuts (auto) Neutrophils % Neutrophils % (Manual) Band Neutrophils % Lymphocytes % Lymphocytes % (Manual) Monocytes % Monocytes % (Manual) Eosinophils % Eosinophils % (Manual) Basophils % Basophils % (Manual) Myelocytes % (Man) Promyelocytes % (Man) Blast Cells % (Manual) Nucleated RBC % Metamyelocytes Hypochromia Platelet Estimate Platelet Comment Polychromasia Anisocytosis Microcytosis Macrocytosis PTT (Actin FS) Anticoagulation Therapy Puncture Site ABG pH ABG pCO2 at Pt Temp ABG pO2 at Pt Temp ABG HCO3 ABG O2 Sat (Measured) ABG O2 Content ABG Base Excess Adrian Test O2 Delivery Device Oxygen Flow Rate Vent Mode Vent Rate Mechanical Rate PEEP Pressure Support Vent Sodium Potassium Chloride Carbon Dioxide Anion Gap BUN Creatinine Est GFR (CKD-EPI)AfAm Est GFR (CKD-EPI)NonAf POC Glucometer [phone] Random Glucose Calcium Phosphorus Magnesium Total Bilirubin AST ALT Alkaline Phosphatase Total Protein Albumin Random Vancomycin Active Medications Generic Name Dose Route Start Last Admin Trade Name Freq PRN Reason Stop Dose Admin Albuterol/Ipratropium 1 amp 04/30/19 16:00 05/06/19 11:40 Duoneb - NEB 1 amp RQID ELISSA Administration Chlorhexidine Gluconate 1 applic 04/30/19 22:00 05/05/19 21:27 Hibiclens For Decolonization - TP 1 applic HS ELISSA Administration Heparin Sodium (Porcine) 1,000 unit 04/30/19 10:40 05/03/19 09:17 Heparin - IVPUSH 1,000 unit PRN PRN Administration Heparin Heparin Sodium (Porcine) 5,000 unit 04/30/19 10:40 05/02/19 10:07 Heparin - IVPUSH 5,000 unit PRN PRN Administration Heparin Vasopressin 50 units/ Sodium 100 mls @ 4 mls/hr 04/30/19 09:30 05/06/19 12:38 Chloride IVPB 2.4 units/hr ASDIR ELISSA 4.8 mls/hr Administration Protocol 2 UNITS/HR Propofol 1,000,000 mcg in 100 mls @ 4.082 mls/hr 04/30/19 10:15 05/06/19 10: 59 Diprivan - IVPB 50 mcg/kg/min TITR ELISSA 40.823 mls/hr Administration Protocol 5 MCG/KG/MIN Heparin Sodium (Porcine) 50, 500 mls @ 10 mls/hr 04/30/19 10:45 05/05/19 15: 48 000 unit/ Sodium Chloride IV 1,500 unit/hr TITR ELISSA 15 mls/hr Administration Protocol 1,000 UNIT/HR Norepinephrine Bitartrate 8, 500 mls @ 18.75 mls/hr 04/30/19 14:00 05/06/19 08:00 000 mcg/ Dextrose/Sodium IV 0 mcg/min Chloride TITR ELISSA 0 mls/hr Titration Protocol 5 MCG/MIN Piperacillin Sod/Tazobactam 50 mls @ 100 mls/hr 05/01/19 18:00 05/06/19 09:44 Sod 3.375 gm/ Dextrose IVPB 100 mls/hr Q8H-IV ELISSA Administration Protocol Fentanyl 500 mcg/ Dextrose 100 mls @ 10 mls/hr 05/01/19 12:45 05/06/19 06:32 IVPB 100 mcg/hr TITR ELISSA 20 mls/hr Administration Protocol 50 MCG/HR Insulin Human Regular 100 100 mls @ 14.34 mls/hr 05/02/19 12:00 05/06/19 12: 38 units/ Sodium Chloride IVPB 0.04 units/kg/hr TITR ELISSA 5.8 mls/hr Administration Protocol 0.1 UNITS/KG/HR Furosemide 100 mg/ Sodium 100 mls @ 5 mls/hr 05/06/19 09:45 05/06/19 12:38 Chloride IVPB 5 mg/hr ASDIR ELISSA 5 mls/hr Administration Protocol 5 MG/HR Methylprednisolone Sodium Succinate 40 mg 05/02/19 14:05 05/06/19 09:44 Solu-Medrol - IVPUSH 40 mg Q8H-IV ELISSA Administration Metoprolol Tartrate 5 mg 04/30/19 08:57 05/05/19 06:38 Lopressor Injection - IVPUSH 5 mg Q4H PRN Administration TACHYCARDIA Metoprolol Tartrate 25 mg 05/02/19 13:45 05/06/19 09:44 Lopressor - PO 25 mg BID ELISSA Administration Pantoprazole Sodium 40 mg 05/01/19 10:00 05/06/19 09:44 Protonix Iv IVPUSH 40 mg DAILY ELISSA Administration ASSESSMENT/PLAN: Pt. is a 53 y.o. M w/ PMHx. of DM2, HFpEF(last EF: 45-50%), EMMY (non-adherent to CPAP) and atrial flutter presents with sudden onset of shortness of breath. Neuro: -Obtunded on presentation -intubated off vecuronium and sedated with propofol (50) and fentanyl (maxed out) -no sedation holidays for now CV: -initially hypotensive in the 60s with map in the 40s then started on vasopressin -phenylephrine added then switched to levophed once central line place to maintain map >65 (04/30/19) -A-line placed. hypotensive in the 80-90s with map between 63-67 -Bp cont to be labile with tachycardia but -off levophed. vasopressin only for pressure support. WILL try to wean off when possible -Hr continues to be tachy -Hx of Aflutter -Hold Diltiazem given tenuous MAP and need to diuresis -on metoprolol 25mg BID with lopressor 5mg Q4h PRN -Hold Eliquis, still on Heparin gtt -BNP: 1634 -CVP monitoring showing 11-12. fluid overload improving -Hx CHFpEF, DM, MEMY (non adherent to CPAP) -lasix drip decreased to 5/h. s/p one dose of diamox -monitor urine output -cont Strict Is & Os, daily weights -Echo difficult assessment. unremarkable -Cardio Dr Cruz on board, recs appreciated Pulm: -Acute Hypoxic and Hypercapneic Respiratory Failure -hx of EMMY with non compliance to CPAP at home -was initially on BIPAP on arrival then transitioned to intubation due to poor respiratory status and ABG with severe acidosis (Vent:VCV/AC, 55/325/10/36) -low tidal volume ventilation <6cc/kg/IBW -will try to titrate down the FIO2 by 5% and the PEEP by 2-3 as tolerated -keep Pplat <30 -allow permissive hypercapnea -sats >90 -s/p vecuronium. off now - last ABG Ph 7.37, pCO2 58.2, pO2 104 -pt currently pending transfer to [facility], requirements were to decrease PEEP to reduce transportation complication and to go up on FIO2 -CXR: left sided white out significantly improved s/p right sided positioning. -Bronchodilators :duonebs RQID, Albuterol PRN -solumedrol 40mg Q8h IV -CXR in the AM ID: -Temp 97-99F, WBC 7.4, white/yellow secretions on presentions, CXR without clear exclusion of infiltrate -LA 2.1 -> 1.2 - vanc trough 19 -on vanc redosed, zosyn, azithromycin . -blood culture prior to abx grew gram positive clusters. repeat blood cultures negative for 5 days. first blood culture most likely contaminant -urine culture neg -ID consulted and on board. recs appreciated Renal: -cr 2.2 -> 2.1-> 1.6 k: 6.9 ->6.2-> 6.3-> 4.6-> 4.3->3.9 -> 1.8 -no clear Hx of CKD -on lasix drip -received kayaxilate 30, amp of 5D50, 10 unit of insulin, amp of bicarb to assess with intracellular shift of potassium to improve levels. -K current 3.8 -Nephrology Consult to Dr. Kelley appreciated -Hold Lisinopril -monitor GI: -NG tube -started feed with hypocaloric with promote -LFTs normal -monitor ENDO: -Hx DM -A1c 8.9 -BGMs -on insulin drip Heme/Onc : -H/H 10.4/34.8 -> 10/33.5 -> 10.2/32.5 -> 11/35.3 -stable -monitor -anemia work up low serum iron only FEN : -no IVF -monitor electrolytes -tube feeds Ppx: -Heparin gtt -protonix 40 daily LTD: central line left: ortiz: 04/30/19 A-line: 05/01/19 Dispo: pending transfer to ICU in [facility] Visit type - Emergency Visit Emergency Visit: Yes ED Registration Date: 04/30/19 Care time: The patient presented to the Emergency Department on the above date and was hospitalized for further evaluation of their emergent condition. - New Patient This patient is new to me today: No - Critical Care Critical Care patient: Yes Total Critical Care Time (in minutes): 35 Critical Care Statement: The care of this patient involved high complexity decision making to prevent further life threatening deterioration of the patient 's condition and/or to evaluate & treat vital organ system(s) failure or risk of failure. ATTENDING PHYSICIAN STATEMENT I saw and evaluated the patient. I reviewed the resident's note and discussed the case with the resident. I agree with the resident's findings and plan as documented. SUBJECTIVE: OBJECTIVE: ASSESSMENT AND PLAN:
[2019-05-06] MEDS: DEXTROSE 5% IV SCH (14:25)
[2019-05-06] MEDS: NOREPINEPHRINE BITARTRATE IV SCH (14:25)
[2019-05-06] MEDS: NORMAL SALINE IV SCH (14:25)
[2019-05-06] MEDS ORDERED: POTASSIUM CHLORIDE TABS 20 MEQ TABLET.ER (FP) PO ONE (15:54)
[2019-05-06] MEDS ORDERED: POTASSIUM CHLORIDE ORAL LIQUID 20 MEQ/15 ML PO ONE (17:02)
[2019-05-06] MEDS: HEPARIN IV SCH (17:03)
[2019-05-06] MEDS: SODIUM CHLORIDE IV SCH (17:03)
--- NOTE | 2019-05-06 18:10 | PN ---
Teaching Attending Note Name of Resident: Giuseppe Rm ATTENDING PHYSICIAN STATEMENT I saw and evaluated the patient. I reviewed the resident's note and discussed the case with the resident. I agree with the resident's findings and plan as documented. SUBJECTIVE: Intubated, mechanically ventilated, sedated, unable to participate in medical interview OBJECTIVE: Afebrile. On Levophed and Vasopressin. Last Vital Signs Temp Pulse Resp BP Pulse Ox 97.6 F 118 H 36 H 95/59 L 100 05/06/19 14:00 05/06/19 16:27 05/06/19 16:28 05/06/19 16:00 05/06/19 17:19 HEENT - Normocephalic. Intubated/Ventilated. OG tube. Heart - S1, S2, RRR Lungs - good air entr bilaterally Abdomen - High BMI, soft, non-tender. Bowel Sounds normal. Extremities - Mild edema, no calf tenderness. Neuro - Sedated. Laboratory Results - last 24 hr 05/05/19 05/05/19 05/05/19 18:13 19:04 20:13 WBC RBC Hgb Hct MCV MCH MCHC RDW Plt Count MPV Absolute Neuts (auto) Neutrophils % Neutrophils % (Manual) Band Neutrophils % Lymphocytes % Lymphocytes % (Manual) Monocytes % Monocytes % (Manual) Eosinophils % Eosinophils % (Manual) Basophils % Basophils % (Manual) Myelocytes % (Man) Promyelocytes % (Man) Blast Cells % (Manual) Nucleated RBC % Metamyelocytes Hypochromia Platelet Estimate Platelet Comment Polychromasia Anisocytosis Microcytosis Macrocytosis PTT (Actin FS) Anticoagulation Therapy Puncture Site ABG pH ABG pCO2 at Pt Temp ABG pO2 at Pt Temp ABG HCO3 ABG O2 Sat (Measured) ABG O2 Content ABG Base Excess Adrian Test O2 Delivery Device Oxygen Flow Rate Vent Mode Vent Rate Mechanical Rate PEEP Pressure Support Vent Sodium Potassium Chloride Carbon Dioxide Anion Gap BUN Creatinine Est GFR (CKD-EPI)AfAm Est GFR (CKD-EPI)NonAf POC Glucometer [phone] Random Glucose Calcium Phosphorus Magnesium Total Bilirubin AST ALT Alkaline Phosphatase Total Protein Albumin Random Vancomycin 05/05/19 05/05/19 05/05/19 21:22 22:44 23:44 WBC RBC Hgb Hct MCV MCH MCHC RDW Plt Count MPV Absolute Neuts (auto) Neutrophils % Neutrophils % (Manual) Band Neutrophils % Lymphocytes % Lymphocytes % (Manual) Monocytes % Monocytes % (Manual) Eosinophils % Eosinophils % (Manual) Basophils % Basophils % (Manual) Myelocytes % (Man) Promyelocytes % (Man) Blast Cells % (Manual) Nucleated RBC % Metamyelocytes Hypochromia Platelet Estimate Platelet Comment Polychromasia Anisocytosis Microcytosis Macrocytosis PTT (Actin FS) Anticoagulation Therapy Puncture Site ABG pH ABG pCO2 at Pt Temp ABG pO2 at Pt Temp ABG HCO3 ABG O2 Sat (Measured) ABG O2 Content ABG Base Excess Adrian Test O2 Delivery Device Oxygen Flow Rate Vent Mode Vent Rate Mechanical Rate PEEP Pressure Support Vent Sodium Potassium Chloride Carbon Dioxide Anion Gap BUN Creatinine Est GFR (CKD-EPI)AfAm Est GFR (CKD-EPI)NonAf POC Glucometer [phone] Random Glucose Calcium Phosphorus Magnesium Total Bilirubin AST ALT Alkaline Phosphatase Total Protein Albumin Random Vancomycin 05/06/19 05/06/19 05/06/19 00:44 01:39 01:57 WBC RBC Hgb Hct MCV MCH MCHC RDW Plt Count MPV Absolute Neuts (auto) Neutrophils % Neutrophils % (Manual) Band Neutrophils % Lymphocytes % Lymphocytes % (Manual) Monocytes % Monocytes % (Manual) Eosinophils % Eosinophils % (Manual) Basophils % Basophils % (Manual) Myelocytes % (Man) Promyelocytes % (Man) Blast Cells % (Manual) Nucleated RBC % Metamyelocytes Hypochromia Platelet Estimate Platelet Comment Polychromasia Anisocytosis Microcytosis Macrocytosis PTT (Actin FS) Anticoagulation Therapy Puncture Site ABG pH ABG pCO2 at Pt Temp ABG pO2 at Pt Temp ABG HCO3 ABG O2 Sat (Measured) ABG O2 Content ABG Base Excess Adrian Test O2 Delivery Device Oxygen Flow Rate Vent Mode Vent Rate Mechanical Rate PEEP Pressure Support Vent Sodium Potassium Chloride Carbon Dioxide Anion Gap BUN Creatinine Est GFR (CKD-EPI)AfAm Est GFR (CKD-EPI)NonAf POC Glucometer [phone] Random Glucose Calcium Phosphorus Magnesium Total Bilirubin AST ALT Alkaline Phosphatase Total Protein Albumin Random Vancomycin 05/06/19 05/06/19 05/06/19 03:07 04:19 05:20 WBC RBC Hgb Hct MCV MCH MCHC RDW Plt Count MPV Absolute Neuts (auto) Neutrophils % Neutrophils % (Manual) Band Neutrophils % Lymphocytes % Lymphocytes % (Manual) Monocytes % Monocytes % (Manual) Eosinophils % Eosinophils % (Manual) Basophils % Basophils % (Manual) Myelocytes % (Man) Promyelocytes % (Man) Blast Cells % (Manual) Nucleated RBC % Metamyelocytes Hypochromia Platelet Estimate Platelet Comment Polychromasia Anisocytosis Microcytosis Macrocytosis PTT (Actin FS) Anticoagulation Therapy Puncture Site ABG pH ABG pCO2 at Pt Temp ABG pO2 at Pt Temp ABG HCO3 ABG O2 Sat (Measured) ABG O2 Content ABG Base Excess Adrian Test O2 Delivery Device Oxygen Flow Rate Vent Mode Vent Rate Mechanical Rate PEEP Pressure Support Vent Sodium Potassium Chloride Carbon Dioxide Anion Gap BUN Creatinine Est GFR (CKD-EPI)AfAm Est GFR (CKD-EPI)NonAf POC Glucometer [phone] Random Glucose Calcium Phosphorus Magnesium Total Bilirubin AST ALT Alkaline Phosphatase Total Protein Albumin Random Vancomycin 19.0 05/06/19 05/06/19 05/06/19 05:20 05:20 05:20 WBC 9.0 RBC 4.56 Hgb 11.0 L Hct 35.3 L MCV 77.4 L MCH 24.1 L MCHC 31.1 L RDW 19.3 H Plt Count 357 MPV 8.2 Absolute Neuts (auto) 8.4 H Neutrophils % 93.6 H Neutrophils % (Manual) 97.9 H Band Neutrophils % 0.0 Lymphocytes % 2.0 L Lymphocytes % (Manual) 0.0 L Monocytes % 4.2 Monocytes % (Manual) 2 L Eosinophils % 0.0 Eosinophils % (Manual) 0.0 Basophils % 0.2 Basophils % (Manual) 0.0 Myelocytes % (Man) 0 D Promyelocytes % (Man) 0 Blast Cells % (Manual) 0 Nucleated RBC % 0 Metamyelocytes 0 Hypochromia 0 Platelet Estimate Normal Platelet Comment Present Polychromasia 0 Anisocytosis 1+ Microcytosis 1+ Macrocytosis 0 PTT (Actin FS) 69.3 H Anticoagulation Therapy Puncture Site ABG pH ABG pCO2 at Pt Temp ABG pO2 at Pt Temp ABG HCO3 ABG O2 Sat (Measured) ABG O2 Content ABG Base Excess Adrian Test O2 Delivery Device Oxygen Flow Rate Vent Mode Vent Rate Mechanical Rate PEEP Pressure Support Vent Sodium 143 Potassium 3.8 Chloride 100 Carbon Dioxide 32 Anion Gap 12 BUN 62.2 H Creatinine 1.8 H Est GFR (CKD-EPI)AfAm 49.40 Est GFR (CKD-EPI)NonAf 42.63 POC Glucometer Random Glucose 160 H Calcium 9.3 Phosphorus 5.8 H Magnesium 2.2 Total Bilirubin 0.6 AST 34 ALT 39 Alkaline Phosphatase 89 Total Protein 6.6 Albumin 2.9 L Random Vancomycin 05/06/19 05/06/19 05/06/19 05:20 06:10 06:24 WBC RBC Hgb Hct MCV MCH MCHC RDW Plt Count MPV Absolute Neuts (auto) Neutrophils % Neutrophils % (Manual) Band Neutrophils % Lymphocytes % Lymphocytes % (Manual) Monocytes % Monocytes % (Manual) Eosinophils % Eosinophils % (Manual) Basophils % Basophils % (Manual) Myelocytes % (Man) Promyelocytes % (Man) Blast Cells % (Manual) Nucleated RBC % Metamyelocytes Hypochromia Platelet Estimate Platelet Comment Polychromasia Anisocytosis Microcytosis Macrocytosis PTT (Actin FS) Anticoagulation Therapy No Result Required. Puncture Site Arterial line ABG pH 7.37 ABG pCO2 at Pt Temp 58.2 H ABG pO2 at Pt Temp 104 H ABG HCO3 32.5 H ABG O2 Sat (Measured) 96.7 ABG O2 Content 14.7 ABG Base Excess 6.3 H Adrian Test Not applicable O2 Delivery Device Mech vent Oxygen Flow Rate 70% Vent Mode A/c Vent Rate 36 Mechanical Rate Yes PEEP 15.0 Pressure Support Vent 325 Sodium Potassium Chloride Carbon Dioxide Anion Gap BUN Creatinine Est GFR (CKD-EPI)AfAm Est GFR (CKD-EPI)NonAf POC Glucometer 153 147 Random Glucose Calcium Phosphorus Magnesium Total Bilirubin AST ALT Alkaline Phosphatase Total Protein Albumin Random Vancomycin 05/06/19 05/06/19 05/06/19 08:37 09:00 09:53 WBC RBC Hgb Hct MCV MCH MCHC RDW Plt Count MPV Absolute Neuts (auto) Neutrophils % Neutrophils % (Manual) Band Neutrophils % Lymphocytes % Lymphocytes % (Manual) Monocytes % Monocytes % (Manual) Eosinophils % Eosinophils % (Manual) Basophils % Basophils % (Manual) Myelocytes % (Man) Promyelocytes % (Man) Blast Cells % (Manual) Nucleated RBC % Metamyelocytes Hypochromia Platelet Estimate Platelet Comment Polychromasia Anisocytosis Microcytosis Macrocytosis PTT (Actin FS) Anticoagulation Therapy Puncture Site ABG pH ABG pCO2 at Pt Temp ABG pO2 at Pt Temp ABG HCO3 ABG O2 Sat (Measured) ABG O2 Content ABG Base Excess Adrian Test O2 Delivery Device Oxygen Flow Rate Vent Mode Vent Rate Mechanical Rate PEEP Pressure Support Vent Sodium Potassium Chloride Carbon Dioxide Anion Gap BUN Creatinine Est GFR (CKD-EPI)AfAm Est GFR (CKD-EPI)NonAf POC Glucometer [phone] Random Glucose Calcium Phosphorus Magnesium Total Bilirubin AST ALT Alkaline Phosphatase Total Protein Albumin Random Vancomycin 05/06/19 05/06/19 05/06/19 10:50 11:35 13:19 WBC RBC Hgb Hct MCV MCH MCHC RDW Plt Count MPV Absolute Neuts (auto) Neutrophils % Neutrophils % (Manual) Band Neutrophils % Lymphocytes % Lymphocytes % (Manual) Monocytes % Monocytes % (Manual) Eosinophils % Eosinophils % (Manual) Basophils % Basophils % (Manual) Myelocytes % (Man) Promyelocytes % (Man) Blast Cells % (Manual) Nucleated RBC % Metamyelocytes Hypochromia Platelet Estimate Platelet Comment Polychromasia Anisocytosis Microcytosis Macrocytosis PTT (Actin FS) Anticoagulation Therapy Puncture Site ABG pH ABG pCO2 at Pt Temp ABG pO2 at Pt Temp ABG HCO3 ABG O2 Sat (Measured) ABG O2 Content ABG Base Excess Adrian Test O2 Delivery Device Oxygen Flow Rate Vent Mode Vent Rate Mechanical Rate PEEP Pressure Support Vent Sodium Potassium Chloride Carbon Dioxide Anion Gap BUN Creatinine Est GFR (CKD-EPI)AfAm Est GFR (CKD-EPI)NonAf POC Glucometer [phone] Random Glucose Calcium Phosphorus Magnesium Total Bilirubin AST ALT Alkaline Phosphatase Total Protein Albumin Random Vancomycin 05/06/19 05/06/19 05/06/19 14:22 15:38 17:11 WBC RBC Hgb Hct MCV MCH MCHC RDW Plt Count MPV Absolute Neuts (auto) Neutrophils % Neutrophils % (Manual) Band Neutrophils % Lymphocytes % Lymphocytes % (Manual) Monocytes % Monocytes % (Manual) Eosinophils % Eosinophils % (Manual) Basophils % Basophils % (Manual) Myelocytes % (Man) Promyelocytes % (Man) Blast Cells % (Manual) Nucleated RBC % Metamyelocytes Hypochromia Platelet Estimate Platelet Comment Polychromasia Anisocytosis Microcytosis Macrocytosis PTT (Actin FS) Anticoagulation Therapy Puncture Site ABG pH ABG pCO2 at Pt Temp ABG pO2 at Pt Temp ABG HCO3 ABG O2 Sat (Measured) ABG O2 Content ABG Base Excess Adrian Test O2 Delivery Device Oxygen Flow Rate Vent Mode Vent Rate Mechanical Rate PEEP Pressure Support Vent Sodium Potassium Chloride Carbon Dioxide Anion Gap BUN Creatinine Est GFR (CKD-EPI)AfAm Est GFR (CKD-EPI)NonAf POC Glucometer [phone] Random Glucose Calcium Phosphorus Magnesium Total Bilirubin AST ALT Alkaline Phosphatase Total Protein Albumin Random Vancomycin Current Medications Generic Name Dose Route Start Last Admin Trade Name Freq PRN Reason Stop Dose Admin Albuterol/Ipratropium 1 amp 04/30/19 16:00 05/06/19 16:10 Duoneb - NEB 1 amp RQID ELISSA Administration Chlorhexidine Gluconate 1 applic 04/30/19 22:00 05/05/19 21:27 Hibiclens For Decolonization - TP 1 applic HS ELISSA Administration Heparin Sodium (Porcine) 1,000 unit 04/30/19 10:40 05/03/19 09:17 Heparin - IVPUSH 1,000 unit PRN PRN Administration Heparin Heparin Sodium (Porcine) 5,000 unit 04/30/19 10:40 05/02/19 10:07 Heparin - IVPUSH 5,000 unit PRN PRN Administration Heparin Vasopressin 50 units/ Sodium 100 mls @ 4 mls/hr 04/30/19 09:30 05/06/19 13:46 Chloride IVPB 1 units/hr ASDIR ELISSA 2 mls/hr Titration Protocol 2 UNITS/HR Propofol 1,000,000 mcg in 100 mls @ 4.082 mls/hr 04/30/19 10:15 05/06/19 16: 09 Diprivan - IVPB 50 mcg/kg/min TITR ELISSA 40.823 mls/hr Administration Protocol 5 MCG/KG/MIN Heparin Sodium (Porcine) 50, 500 mls @ 10 mls/hr 04/30/19 10:45 05/06/19 17: 03 000 unit/ Sodium Chloride IV 1,500 unit/hr TITR ELISSA 15 mls/hr Administration Protocol 1,000 UNIT/HR Norepinephrine Bitartrate 8, 500 mls @ 18.75 mls/hr 04/30/19 14:00 05/06/19 14:25 000 mcg/ Dextrose/Sodium IV Not Given Chloride TITR ELISSA Protocol 5 MCG/MIN Piperacillin Sod/Tazobactam 50 mls @ 100 mls/hr 05/01/19 18:00 05/06/19 16:59 Sod 3.375 gm/ Dextrose IVPB 100 mls/hr Q8H-IV ELISSA Administration Protocol Fentanyl 500 mcg/ Dextrose 100 mls @ 10 mls/hr 05/01/19 12:45 05/06/19 16:57 IVPB 100 mcg/hr TITR ELISSA 20 mls/hr Administration Protocol 50 MCG/HR Insulin Human Regular 100 100 mls @ 14.34 mls/hr 05/02/19 12:00 05/06/19 14: 26 units/ Sodium Chloride IVPB 0.04 units/kg/hr TITR ELISSA 6.8 mls/hr Titration Protocol 0.1 UNITS/KG/HR Furosemide 100 mg/ Sodium 100 mls @ 5 mls/hr 05/06/19 09:45 05/06/19 12:38 Chloride IVPB 5 mg/hr ASDIR ELISSA 5 mls/hr Administration Protocol 5 MG/HR Methylprednisolone Sodium Succinate 40 mg 05/02/19 14:05 05/06/19 17:00 Solu-Medrol - IVPUSH 40 mg Q8H-IV ELISSA Administration Metoprolol Tartrate 5 mg 04/30/19 08:57 05/05/19 06:38 Lopressor Injection - IVPUSH 5 mg Q4H PRN Administration TACHYCARDIA Metoprolol Tartrate 25 mg 05/02/19 13:45 05/06/19 09:44 Lopressor - PO 25 mg BID ELISSA Administration Pantoprazole Sodium 40 mg 05/01/19 10:00 05/06/19 09:44 Protonix Iv IVPUSH 40 mg DAILY ELISSA Administration Home Medications Medication Instructions Recorded Amiodarone HCl 200 mg PO DAILY 04/30/19 Apixaban [Eliquis] 5 mg PO BID 04/30/19 Diltiazem Cd [Cardizem Cd -] 300 mg PO DAILY 04/30/19 Furosemide 40 mg PO BID 04/30/19 Glipizide 10 mg PO DAILY 04/30/19 Lisinopril 10 mg PO DAILY 04/30/19 Metformin HCl [Glucophage] 1,000 mg PO BID 04/30/19 Sitagliptin Phosphate [Januvia] 100 mg PO DAILY 04/30/19 ASSESSMENT AND PLAN: 53 year old male with Obesity, DM 2, Sarcoidosis, Chronic systolic CHF (last EF 45-50%), EMMY (non-adherent with CPAP), and Atrial Flutter presented with sudden onset of shortness of breath, requiring intubation and mechanical ventilation. 1. Acute Hypoxic and Hypercapneic Respiratory Failure secondary to Acute Systolic CHF Intubated/Mechanically ventilated. On Propofol and Fentanyl sedation. Difficult to wean off Vent - likely sec to underlying OHS. IV Lasix drip diuresis ongoing. Attempt to wean down pressure support and O2 requirements. Bronchodilator Nebs, Steroids. Rest as per Medical Transcription Supervisor. 2. Cardiogenic Shock sec to Acute Systolic CHF vs Septic Shock, etiology unclear. Attempt to wean down Levophed and Vasopressin Continue Zosyn Cardiology following - for out-patient Cardiac MRI as out-patient to asses degree of sarcoid involvement. 3. Atrial flutter - on Lopressor for rate control. Heparin drip. 4. RYNE - likely secondary to Cardiorenal phenomenon, improving with Lasix diuresis Nephrology following. 5. DM 2 - Maintained on Insulin drip. DVT Px - Heparin drip ongoing.
--- NOTE | 2019-05-06 19:10 | PN ---
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, Physician History of Present Illness: REMAINS ON VENTILATOR OFF PARALYTICS DECREASED FIO2 REQUIREMENT NO ACUTE DISTRESS AFEBRILE WBC WNL REPEAT BC NO GROWTH ECHO NO VEGETATIONS - Current Medication List Current Medications: Active Medications Albuterol/Ipratropium (Duoneb -) 1 amp NEB RQID ELISSA Last Admin: 05/06/19 16:10 Dose: 1 amp Chlorhexidine Gluconate (Hibiclens For Decolonization -) 1 applic TP HS ELISSA Last Admin: 05/05/19 21:27 Dose: 1 applic Heparin Sodium (Porcine) (Heparin -) 1,000 unit IVPUSH PRN PRN PRN Reason: Heparin Last Admin: 05/03/19 09:17 Dose: 1,000 unit Heparin Sodium (Porcine) (Heparin -) 5,000 unit IVPUSH PRN PRN PRN Reason: Heparin Last Admin: 05/02/19 10:07 Dose: 5,000 unit Vasopressin 50 units/ Sodium (Chloride) 100 mls @ 4 mls/hr IVPB ASDIR ELISSA; Protocol Last Titration: 05/06/19 13:46 Dose: 1 units/hr, 2 mls/hr Propofol (Diprivan -) 1,000,000 mcg in 100 mls @ 4.082 mls/hr IVPB TITR ELISSA; Protocol Last Admin: 05/06/19 16:09 Dose: 50 mcg/kg/min, 40.823 mls/hr Heparin Sodium (Porcine) 50, (000 unit/ Sodium Chloride) 500 mls @ 10 mls/hr IV TITR ELISSA; Protocol Last Admin: 05/06/19 17:03 Dose: 1,500 unit/hr, 15 mls/hr Norepinephrine Bitartrate 8, 000 mcg/ Dextrose/Sodium Chloride 500 mls @ 18.75 mls/hr IV TITR ELISSA; Protocol Last Admin: 05/06/19 14:25 Dose: Not Given Piperacillin Sod/Tazobactam (Sod 3.375 gm/ Dextrose) 50 mls @ 100 mls/hr IVPB Q8H-IV ELISSA; Protocol Last Admin: 05/06/19 16:59 Dose: 100 mls/hr Fentanyl 500 mcg/ Dextrose 100 mls @ 10 mls/hr IVPB TITR ELISSA; Protocol Last Admin: 05/06/19 16:57 Dose: 100 mcg/hr, 20 mls/hr Insulin Human Regular 100 (units/ Sodium Chloride) 100 mls @ 14.34 mls/hr IVPB TITR [facility]; Protocol Last Titration: 05/06/19 18:54 Dose: 0.02 units/kg/hr, 3.8 mls/hr Furosemide 100 mg/ Sodium (Chloride) 100 mls @ 5 mls/hr IVPB ASDIR [facility]; Protocol Last Admin: 05/06/19 12:38 Dose: 5 mg/hr, 5 mls/hr Methylprednisolone Sodium Succinate (Solu-Medrol -) 40 mg IVPUSH Q8H-IV ELISSA Last Admin: 05/06/19 17:00 Dose: 40 mg Metoprolol Tartrate (Lopressor Injection -) 5 mg IVPUSH Q4H PRN PRN Reason: TACHYCARDIA Last Admin: 05/05/19 06:38 Dose: 5 mg Metoprolol Tartrate (Lopressor -) 25 mg PO BID [facility] Last Admin: 05/06/19 09:44 Dose: 25 mg Pantoprazole Sodium (Protonix Iv) 40 mg IVPUSH DAILY [facility] Last Admin: 05/06/19 09:44 Dose: 40 mg - Objective Vital Signs: Vital Signs Temperature 97.9 F 05/06/19 18:30 Pulse Rate 115 H 05/06/19 18:30 Respiratory Rate 34 H 05/06/19 18:30 Blood Pressure 112/74 05/06/19 18:30 O2 Sat by Pulse Oximetry (%) 100 05/06/19 17:19 Constitutional: Yes: No Distress Cardiovascular: Yes: Regular Rate and Rhythm, S1, S2 Respiratory: Yes: Mechanically Ventilated Gastrointestinal: Yes: Normal Bowel Sounds, Soft, Abdomen, Obese Edema: Yes Labs: CBC, BMP 05/06/19 05:20 05/06/19 05:20 INR, PTT INR 1.09 (0.83-1.09) 05/05/19 05:30 Assessment/Plan ACUTE RESP FAILURE CHF/ PNEUMONIA +BC SCN, GPR ? SIGNIFICANCE RENAL FAILURE CONTINUE VENTILATORY/ HEMODYNAMIC SUPPORT CONTINUE ZOSYN VANCOMYCIN LEVEL THERAPUTIC
--- NOTE | 2019-05-06 20:08 | PN ---
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, Physician History of Present Illness: Pt seen and examined at bedside. He remains in the ICU. He remains on vent. - Current Medication List Current Medications: Active Medications Albuterol/Ipratropium (Duoneb -) 1 amp NEB RQID ELISSA Last Admin: 05/06/19 16:10 Dose: 1 amp Chlorhexidine Gluconate (Hibiclens For Decolonization -) 1 applic TP HS ELISSA Last Admin: 05/05/19 21:27 Dose: 1 applic Heparin Sodium (Porcine) (Heparin -) 1,000 unit IVPUSH PRN PRN PRN Reason: Heparin Last Admin: 05/03/19 09:17 Dose: 1,000 unit Heparin Sodium (Porcine) (Heparin -) 5,000 unit IVPUSH PRN PRN PRN Reason: Heparin Last Admin: 05/02/19 10:07 Dose: 5,000 unit Vasopressin 50 units/ Sodium (Chloride) 100 mls @ 4 mls/hr IVPB ASDIR ELISSA; Protocol Last Titration: 05/06/19 13:46 Dose: 1 units/hr, 2 mls/hr Propofol (Diprivan -) 1,000,000 mcg in 100 mls @ 4.082 mls/hr IVPB TITR ELISSA; Protocol Last Admin: 05/06/19 16:09 Dose: 50 mcg/kg/min, 40.823 mls/hr Heparin Sodium (Porcine) 50, (000 unit/ Sodium Chloride) 500 mls @ 10 mls/hr IV TITR ELISSA; Protocol Last Admin: 05/06/19 17:03 Dose: 1,500 unit/hr, 15 mls/hr Norepinephrine Bitartrate 8, 000 mcg/ Dextrose/Sodium Chloride 500 mls @ 18.75 mls/hr IV TITR ELISSA; Protocol Last Admin: 05/06/19 14:25 Dose: Not Given Piperacillin Sod/Tazobactam (Sod 3.375 gm/ Dextrose) 50 mls @ 100 mls/hr IVPB Q8H-IV ELISSA; Protocol Last Admin: 05/06/19 16:59 Dose: 100 mls/hr Fentanyl 500 mcg/ Dextrose 100 mls @ 10 mls/hr IVPB TITR ELISSA; Protocol Last Admin: 05/06/19 16:57 Dose: 100 mcg/hr, 20 mls/hr Insulin Human Regular 100 (units/ Sodium Chloride) 100 mls @ 14.34 mls/hr IVPB TITR [facility]; Protocol Last Titration: 05/06/19 18:54 Dose: 0.02 units/kg/hr, 3.8 mls/hr Furosemide 100 mg/ Sodium (Chloride) 100 mls @ 5 mls/hr IVPB ASDIR [facility]; Protocol Last Admin: 05/06/19 12:38 Dose: 5 mg/hr, 5 mls/hr Methylprednisolone Sodium Succinate (Solu-Medrol -) 40 mg IVPUSH Q8H-IV ELISSA Last Admin: 05/06/19 17:00 Dose: 40 mg Metoprolol Tartrate (Lopressor Injection -) 5 mg IVPUSH Q4H PRN PRN Reason: TACHYCARDIA Last Admin: 05/05/19 06:38 Dose: 5 mg Metoprolol Tartrate (Lopressor -) 25 mg PO BID [facility] Last Admin: 05/06/19 09:44 Dose: 25 mg Pantoprazole Sodium (Protonix Iv) 40 mg IVPUSH DAILY [facility] Last Admin: 05/06/19 09:44 Dose: 40 mg - Objective Vital Signs: Vital Signs Temperature 97.9 F 05/06/19 18:30 Pulse Rate 115 H 05/06/19 18:30 Respiratory Rate 34 H 05/06/19 18:30 Blood Pressure 112/74 05/06/19 18:30 O2 Sat by Pulse Oximetry (%) 100 05/06/19 17:19 Constitutional: Yes: Calm Eyes: Yes: Conjunctiva Clear HENT: Yes: Atraumatic Cardiovascular: Yes: S1, S2 Respiratory: Yes: Mechanically Ventilated Gastrointestinal: Yes: Soft, Abdomen, Obese Genitourinary: Yes: Andrews Present Musculoskeletal: Yes: Muscle Weakness Edema: Yes Integumentary: Yes: Venous Stasis Changes Neurological: Yes: Lethargy Labs: CBC, BMP 05/06/19 05:20 05/06/19 05:20 INR, PTT INR 1.09 (0.83-1.09) 05/05/19 05:30 - ....Imaging Chest X-ray: Report Reviewed Problem List - Problems (1) Acute decompensated heart failure Code(s): I50.9 - HEART FAILURE, UNSPECIFIED (2) Atrial fibrillation and flutter Code(s): I48.91 - UNSPECIFIED ATRIAL FIBRILLATION; I48.92 - UNSPECIFIED ATRIAL FLUTTER (3) Hyperkalemia Code(s): E87.5 - HYPERKALEMIA (4) Pneumonia Code(s): J18.9 - PNEUMONIA, UNSPECIFIED ORGANISM Qualifiers: Pneumonia type: due to unspecified organism (5) Sarcoidosis of other sites Code(s): D86.89 - SARCOIDOSIS OF OTHER SITES Assessment/Plan Current Medications Generic Name Dose Route Start Last Admin Trade Name Freq PRN Reason Stop Dose Admin Albuterol/Ipratropium 1 amp 04/30/19 16:00 05/06/19 16:10 Duoneb - NEB 1 amp RQID ELISSA Administration Chlorhexidine Gluconate 1 applic 04/30/19 22:00 05/05/19 21:27 Hibiclens For Decolonization - TP 1 applic HS ELISSA Administration Heparin Sodium (Porcine) 1,000 unit 04/30/19 10:40 05/03/19 09:17 Heparin - IVPUSH 1,000 unit PRN PRN Administration Heparin Heparin Sodium (Porcine) 5,000 unit 04/30/19 10:40 05/02/19 10:07 Heparin - IVPUSH 5,000 unit PRN PRN Administration Heparin Vasopressin 50 units/ Sodium 100 mls @ 4 mls/hr 04/30/19 09:30 05/06/19 13:46 Chloride IVPB 1 units/hr ASDIR ELISSA 2 mls/hr Titration Protocol 2 UNITS/HR Propofol 1,000,000 mcg in 100 mls @ 4.082 mls/hr 04/30/19 10:15 05/06/19 16: 09 Diprivan - IVPB 50 mcg/kg/min TITR ELISSA 40.823 mls/hr Administration Protocol 5 MCG/KG/MIN Heparin Sodium (Porcine) 50, 500 mls @ 10 mls/hr 04/30/19 10:45 05/06/19 17: 03 000 unit/ Sodium Chloride IV 1,500 unit/hr TITR ELISSA 15 mls/hr Administration Protocol 1,000 UNIT/HR Norepinephrine Bitartrate 8, 500 mls @ 18.75 mls/hr 04/30/19 14:00 05/06/19 14:25 000 mcg/ Dextrose/Sodium IV Not Given Chloride TITR ELISSA Protocol 5 MCG/MIN Piperacillin Sod/Tazobactam 50 mls @ 100 mls/hr 05/01/19 18:00 05/06/19 16:59 Sod 3.375 gm/ Dextrose IVPB 100 mls/hr Q8H-IV ELISSA Administration Protocol Fentanyl 500 mcg/ Dextrose 100 mls @ 10 mls/hr 05/01/19 12:45 05/06/19 16:57 IVPB 100 mcg/hr TITR ELISSA 20 mls/hr Administration Protocol 50 MCG/HR Insulin Human Regular 100 100 mls @ 14.34 mls/hr 05/02/19 12:00 05/06/19 18: 54 units/ Sodium Chloride IVPB 0.02 units/kg/hr TITR ELISSA 3.8 mls/hr Titration Protocol 0.1 UNITS/KG/HR Furosemide 100 mg/ Sodium 100 mls @ 5 mls/hr 05/06/19 09:45 05/06/19 12:38 Chloride IVPB 5 mg/hr ASDIR ELISSA 5 mls/hr Administration Protocol 5 MG/HR Methylprednisolone Sodium Succinate 40 mg 05/02/19 14:05 05/06/19 17:00 Solu-Medrol - IVPUSH 40 mg Q8H-IV ELISSA Administration Metoprolol Tartrate 5 mg 04/30/19 08:57 05/05/19 06:38 Lopressor Injection - IVPUSH 5 mg Q4H PRN Administration TACHYCARDIA Metoprolol Tartrate 25 mg 05/02/19 13:45 05/06/19 09:44 Lopressor - PO 25 mg BID ELISSA Administration Pantoprazole Sodium 40 mg 05/01/19 10:00 05/06/19 09:44 Protonix Iv IVPUSH 40 mg DAILY ELISSA Administration Impression 1. RYNE 2. hyperkalemia 3. resp failure requiring intubation 4. resp acidosis 5. dm 6. hx htn 7. sleep apnea 8. obesity 9. hx non compliance 10. chf 11. sarcoid 12. volume overload Plan - volume status is improving - vent support - monitor abg - discussed with ICU team - cont shannansheron, he is now on 5 mg drip - pending bed at [place] - monitor urine output
[2019-05-06] MEDS: CHLORHEXIDINE GLUCONATE 4% CLEANSER FOR DECOLONIZATION TP SCH (21:10)
[2019-05-07] MEDS: PIPERACILLIN/TAZOB 3.375 GM 3.375 GM in DEXTROSE 5%-WATER - 50 ML IVPB SCH ×3 (00:59→17:35)
[2019-05-07] MEDS: methylPREDNISolone NA SUCC 40 MG/1 ML VIAL IVPUSH SCH ×3 (01:00→17:41)
[2019-05-07 01:23] LABS: BLOOD UREA NITROGEN 69.2 mg/dL (7-18); CALCIUM 9.3 mg/dL (8.5-10.1); CREATININE 1.8 mg/dL (0.55-1.3); POTASSIUM 4.2 mmol/L (3.5-5.1)
[2019-05-07] MEDS ORDERED: fentaNYL CITRATE 250 MCG/5 ML VIAL ONE ×4 (03:41→20:28)
[2019-05-07] MEDS: FENTANYL INJECTION 500 MCG in DEXTROSE 5%-WATER - 90 ML IVPB SCH ×3 (04:28→22:00)
[2019-05-07] MEDS: INSULIN REGULAR 100 UNITS in SODIUM CHLORIDE 99 ML IVPB SCH ×2 (04:28→19:36)
[2019-05-07] MEDS: PROPOFOL 1,000,000 MCG/100 ML VIAL IVPB SCH ×3 (06:00→21:49)
[2019-05-07 06:13] LABS: BASO % 0.3 % (0-2.0); HEMATOCRIT 34.4 % (35.4-49); HEMOGLOBIN 10.5 GM/dL (11.7-16.9); LYMPH % 1.7 % (8-40); MCH 23.9 pg (25.7-33.7); MCHC 30.5 g/dl (32.0-35.9); MEAN CELL VOLUME 78.3 fl (80-96); MEAN PLT VOLUME 8.2 fl (7.5-11.1); PLATELET COUNT 269 K/MM3 (134-434); RDW 19.3 % (11.9-15.9); WHITE BLOOD COUNT 8.7 K/mm3 (4.0-10.0)
[2019-05-07 06:42] LABS: ALBUMIN 2.7 g/dl (3.4-5.0); BILIRUBIN,TOTAL 0.6 mg/dL (0.2-1); BLOOD UREA NITROGEN 67.3 mg/dL (7-18); CALCIUM 9.5 mg/dL (8.5-10.1); CREATININE 1.7 mg/dL (0.55-1.3); MAGNESIUM 2.4 mg/dL (1.8-2.4); PHOSPHOROUS 4.5 mg/dL (2.5-4.9); POTASSIUM 3.8 mmol/L (3.5-5.1); TOT PROT 6.2 g/dl (6.4-8.2)
[2019-05-07] MEDS ORDERED: DEXTROSE 5%-WATER - 50 ML IVPB ONE ×3 (08:00→23:31)
[2019-05-07] MEDS ORDERED: PIPERACILLIN/TAZOBACTAM 3.375 GM VIAL IVPB ONE ×3 (08:00→23:30)
[2019-05-07] MEDS: ALBUTEROL SO4 2.5/IPRATROPIUM 0.5 INH SOL 3 ML VIAL.NEB. NEB SCH ×4 (08:15→21:00)
[2019-05-07] MEDS: KCL 10 MEQ IVPB 10 MEQ/100 ML INFUS.BAG IVPB SCH ×2 (09:38→12:10)
[2019-05-07 09:42] LABS: ANISOCYTOSIS 1+; MACROCYTOSIS 0; OVALOCYTE 1+; PLATELET ESTIMATE NORMAL; TARGET CELLS 1+; TEAR DROP CELLS 1+
--- NOTE | 2019-05-07 09:46 | PN ---
Teaching Attending Note Name of Resident: Basilio Cali ATTENDING PHYSICIAN STATEMENT I saw and evaluated the patient. I reviewed the resident's note and discussed the case with the resident. I agree with the resident's findings and plan as documented. SUBJECTIVE: Patient seen and examined in the ICU. Remains intubated and sedated. AC Mode of vent, 60% FiO2 and PEEP 10. Off pressors. Remains on Lasix drip. CXR: Overall improving Intake & Output 05/04/19 05/05/19 05/06/19 05/07/19 23:59 23:59 23:59 23:59 Intake Total 5383 2381 3236 1546 Output Total 6300 3700 3820 1700 Balance -917 -1319 -584 -154 Weight 302 lb 9.6 oz 299 lb 14.4 oz 297 lb 3.2 oz 288 lb 11.2 oz Last Vital Signs Temp Pulse Resp BP Pulse Ox 98.3 F 101 H 36 H 99/64 100 05/07/19 06:00 05/07/19 08:00 05/07/19 06:00 05/07/19 08:00 05/07/19 06:32 Active Medications Albuterol/Ipratropium (Duoneb -) 1 amp NEB RQID ELISSA Last Admin: 05/06/19 20:30 Dose: 1 amp Chlorhexidine Gluconate (Hibiclens For Decolonization -) 1 applic TP HS [facility] Last Admin: 05/06/19 21:10 Dose: 1 applic Heparin Sodium (Porcine) (Heparin -) 1,000 unit IVPUSH PRN PRN PRN Reason: Heparin Last Admin: 05/03/19 09:17 Dose: 1,000 unit Heparin Sodium (Porcine) (Heparin -) 5,000 unit IVPUSH PRN PRN PRN Reason: Heparin Last Admin: 05/02/19 10:07 Dose: 5,000 unit Vasopressin 50 units/ Sodium (Chloride) 100 mls @ 4 mls/hr IVPB ASDIR ELISSA; Protocol Last Titration: 05/07/19 02:59 Dose: 0 units/hr, 0 mls/hr Propofol (Diprivan -) 1,000,000 mcg in 100 mls @ 4.082 mls/hr IVPB TITR ELISSA; Protocol Last Admin: 05/07/19 06:00 Dose: 40 mcg/kg/min, 32.659 mls/hr Heparin Sodium (Porcine) 50, (000 unit/ Sodium Chloride) 500 mls @ 10 mls/hr IV TITR ELISSA; Protocol Last Admin: 05/06/19 17:03 Dose: 1,500 unit/hr, 15 mls/hr Norepinephrine Bitartrate 8, 000 mcg/ Dextrose/Sodium Chloride 500 mls @ 18.75 mls/hr IV TITR ELISSA; Protocol Last Admin: 05/06/19 14:25 Dose: Not Given Piperacillin Sod/Tazobactam (Sod 3.375 gm/ Dextrose) 50 mls @ 100 mls/hr IVPB Q8H-IV ELISSA; Protocol Last Admin: 05/07/19 09:37 Dose: 100 mls/hr Fentanyl 500 mcg/ Dextrose 100 mls @ 10 mls/hr IVPB TITR ELISSA; Protocol Last Admin: 05/07/19 04:28 Dose: 100 mcg/hr, 20 mls/hr Insulin Human Regular 100 (units/ Sodium Chloride) 100 mls @ 14.34 mls/hr IVPB TITR ELISSA; Protocol Last Titration: 05/07/19 06:13 Dose: 0.02 units/kg/hr, 3.8 mls/hr Furosemide 100 mg/ Sodium (Chloride) 100 mls @ 5 mls/hr IVPB ASDIR ELISSA; Protocol Last Admin: 05/06/19 12:38 Dose: 5 mg/hr, 5 mls/hr Potassium Chloride (Potassium Chloride 10 Meq Premix Ivpb -) 10 meq in 100 mls @ 100 mls/hr IVPB Q60M ELISSA Stop: 05/07/19 10:29 Last Admin: 05/07/19 09:38 Dose: 100 mls/hr Methylprednisolone Sodium Succinate (Solu-Medrol -) 40 mg IVPUSH Q8H-IV ELISSA Last Admin: 05/07/19 01:00 Dose: 40 mg Metoprolol Tartrate (Lopressor Injection -) 5 mg IVPUSH Q4H PRN PRN Reason: TACHYCARDIA Last Admin: 05/05/19 06:38 Dose: 5 mg Metoprolol Tartrate (Lopressor -) 25 mg PO BID [facility] Last Admin: 05/06/19 21:10 Dose: 25 mg Pantoprazole Sodium (Protonix Iv) 40 mg IVPUSH DAILY [facility] Last Admin: 05/06/19 09:44 Dose: 40 mg Gen: intubated, sedated Heart: tachy, irreg, s1S2 Lung: Vented, bilateral rhonchi Abd: soft, nontender Ext:+1 edema improved [employer]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 Laboratory Results - last 24 hr 05/06/19 05/06/19 05/06/19 05:20 09:53 10:50 WBC RBC Hgb Hct MCV MCH MCHC RDW Plt Count MPV Absolute Neuts (auto) Neutrophils % Neutrophils % (Manual) 97.9 H Band Neutrophils % 0.0 Lymphocytes % Lymphocytes % (Manual) 0.0 L Monocytes % Monocytes % (Manual) 2 L Eosinophils % Eosinophils % (Manual) 0.0 Basophils % Basophils % (Manual) 0.0 Myelocytes % (Man) 0 D Promyelocytes % (Man) 0 Blast Cells % (Manual) 0 Nucleated RBC % Metamyelocytes 0 Hypochromia 0 Platelet Estimate Normal Platelet Comment Present Polychromasia 0 Anisocytosis 1+ Microcytosis 1+ Macrocytosis 0 PTT (Actin FS) Sodium Potassium Chloride Carbon Dioxide Anion Gap BUN Creatinine Est GFR (CKD-EPI)AfAm Est GFR (CKD-EPI)NonAf POC Glucometer 166 246 Random Glucose Calcium Phosphorus Magnesium Total Bilirubin AST ALT Alkaline Phosphatase Total Protein Albumin Random Vancomycin 05/06/19 05/06/19 05/06/19 11:35 13:19 14:22 WBC RBC Hgb Hct MCV MCH MCHC RDW Plt Count MPV Absolute Neuts (auto) Neutrophils % Neutrophils % (Manual) Band Neutrophils % Lymphocytes % Lymphocytes % (Manual) Monocytes % Monocytes % (Manual) Eosinophils % Eosinophils % (Manual) Basophils % Basophils % (Manual) Myelocytes % (Man) Promyelocytes % (Man) Blast Cells % (Manual) Nucleated RBC % Metamyelocytes Hypochromia Platelet Estimate Platelet Comment Polychromasia Anisocytosis Microcytosis Macrocytosis PTT (Actin FS) Sodium Potassium Chloride Carbon Dioxide Anion Gap BUN Creatinine Est GFR (CKD-EPI)AfAm Est GFR (CKD-EPI)NonAf POC Glucometer 261 231 234 Random Glucose Calcium Phosphorus Magnesium Total Bilirubin AST ALT Alkaline Phosphatase Total Protein Albumin Random Vancomycin 05/06/19 05/06/19 05/06/19 15:38 17:11 18:49 WBC RBC Hgb Hct MCV MCH MCHC RDW Plt Count MPV Absolute Neuts (auto) Neutrophils % Neutrophils % (Manual) Band Neutrophils % Lymphocytes % Lymphocytes % (Manual) Monocytes % Monocytes % (Manual) Eosinophils % Eosinophils % (Manual) Basophils % Basophils % (Manual) Myelocytes % (Man) Promyelocytes % (Man) Blast Cells % (Manual) Nucleated RBC % Metamyelocytes Hypochromia Platelet Estimate Platelet Comment Polychromasia Anisocytosis Microcytosis Macrocytosis PTT (Actin FS) Sodium Potassium Chloride Carbon Dioxide Anion Gap BUN Creatinine Est GFR (CKD-EPI)AfAm Est GFR (CKD-EPI)NonAf POC Glucometer 197 193 151 Random Glucose Calcium Phosphorus Magnesium Total Bilirubin AST ALT Alkaline Phosphatase Total Protein Albumin Random Vancomycin 05/06/19 05/06/19 05/06/19 20:02 21:01 22:05 WBC RBC Hgb Hct MCV MCH MCHC RDW Plt Count MPV Absolute Neuts (auto) Neutrophils % Neutrophils % (Manual) Band Neutrophils % Lymphocytes % Lymphocytes % (Manual) Monocytes % Monocytes % (Manual) Eosinophils % Eosinophils % (Manual) Basophils % Basophils % (Manual) Myelocytes % (Man) Promyelocytes % (Man) Blast Cells % (Manual) Nucleated RBC % Metamyelocytes Hypochromia Platelet Estimate Platelet Comment Polychromasia Anisocytosis Microcytosis Macrocytosis PTT (Actin FS) Sodium Potassium Chloride Carbon Dioxide Anion Gap BUN Creatinine Est GFR (CKD-EPI)AfAm Est GFR (CKD-EPI)NonAf POC Glucometer 144 151 218 Random Glucose Calcium Phosphorus Magnesium Total Bilirubin AST ALT Alkaline Phosphatase Total Protein Albumin Random Vancomycin 05/06/19 05/07/19 05/07/19 23:35 00:20 00:21 WBC RBC Hgb Hct MCV MCH MCHC RDW Plt Count MPV Absolute Neuts (auto) Neutrophils % Neutrophils % (Manual) Band Neutrophils % Lymphocytes % Lymphocytes % (Manual) Monocytes % Monocytes % (Manual) Eosinophils % Eosinophils % (Manual) Basophils % Basophils % (Manual) Myelocytes % (Man) Promyelocytes % (Man) Blast Cells % (Manual) Nucleated RBC % Metamyelocytes Hypochromia Platelet Estimate Platelet Comment Polychromasia Anisocytosis Microcytosis Macrocytosis PTT (Actin FS) Sodium 142 Potassium 4.2 Chloride 102 Carbon Dioxide 35 H Anion Gap 6 L BUN 69.2 H Creatinine 1.8 H Est GFR (CKD-EPI)AfAm 49.40 Est GFR (CKD-EPI)NonAf 42.63 POC Glucometer 177 181 Random Glucose 183 H Calcium 9.3 Phosphorus Magnesium Total Bilirubin AST ALT Alkaline Phosphatase Total Protein Albumin Random Vancomycin 05/07/19 05/07/19 05/07/19 01:09 02:24 03:02 WBC RBC Hgb Hct MCV MCH MCHC RDW Plt Count MPV Absolute Neuts (auto) Neutrophils % Neutrophils % (Manual) Band Neutrophils % Lymphocytes % Lymphocytes % (Manual) Monocytes % Monocytes % (Manual) Eosinophils % Eosinophils % (Manual) Basophils % Basophils % (Manual) Myelocytes % (Man) Promyelocytes % (Man) Blast Cells % (Manual) Nucleated RBC % Metamyelocytes Hypochromia Platelet Estimate Platelet Comment Polychromasia Anisocytosis Microcytosis Macrocytosis PTT (Actin FS) Sodium Potassium Chloride Carbon Dioxide Anion Gap BUN Creatinine Est GFR (CKD-EPI)AfAm Est GFR (CKD-EPI)NonAf POC Glucometer 209 192 183 Random Glucose Calcium Phosphorus Magnesium Total Bilirubin AST ALT Alkaline Phosphatase Total Protein Albumin Random Vancomycin 05/07/19 05/07/19 05/07/19 04:11 05:06 05:15 WBC RBC Hgb Hct MCV MCH MCHC RDW Plt Count MPV Absolute Neuts (auto) Neutrophils % Neutrophils % (Manual) Band Neutrophils % Lymphocytes % Lymphocytes % (Manual) Monocytes % Monocytes % (Manual) Eosinophils % Eosinophils % (Manual) Basophils % Basophils % (Manual) Myelocytes % (Man) Promyelocytes % (Man) Blast Cells % (Manual) Nucleated RBC % Metamyelocytes Hypochromia Platelet Estimate Platelet Comment Polychromasia Anisocytosis Microcytosis Macrocytosis PTT (Actin FS) Sodium Potassium Chloride Carbon Dioxide Anion Gap BUN Creatinine Est GFR (CKD-EPI)AfAm Est GFR (CKD-EPI)NonAf POC Glucometer 156 140 Random Glucose Calcium Phosphorus Magnesium Total Bilirubin AST ALT Alkaline Phosphatase Total Protein Albumin Random Vancomycin 10.6 L 05/07/19 05/07/19 05/07/19 05:15 05:15 06:00 WBC 8.7 RBC 4.40 Hgb 10.5 L Hct 34.4 L MCV 78.3 L MCH 23.9 L MCHC 30.5 L RDW 19.3 H Plt Count 269 D MPV 8.2 Absolute Neuts (auto) 8.0 Neutrophils % 92.0 H Neutrophils % (Manual) Band Neutrophils % Lymphocytes % 1.7 L Lymphocytes % (Manual) Monocytes % 6.0 Monocytes % (Manual) Eosinophils % 0.0 Eosinophils % (Manual) Basophils % 0.3 Basophils % (Manual) Myelocytes % (Man) Promyelocytes % (Man) Blast Cells % (Manual) Nucleated RBC % 0 Metamyelocytes Hypochromia Platelet Estimate Platelet Comment Polychromasia Anisocytosis Microcytosis Macrocytosis PTT (Actin FS) 70.7 H Sodium 145 Potassium 3.8 Chloride 103 Carbon Dioxide 36 H Anion Gap 6 L BUN 67.3 H Creatinine 1.7 H Est GFR (CKD-EPI)AfAm 52.94 Est GFR (CKD-EPI)NonAf 45.68 POC Glucometer Random Glucose 127 H Calcium 9.5 Phosphorus 4.5 Magnesium 2.4 Total Bilirubin 0.6 AST 45 H ALT 62 H Alkaline Phosphatase 88 Total Protein 6.2 L Albumin 2.7 L Random Vancomycin 05/07/19 05/07/19 05/07/19 06:02 07:02 08:50 WBC RBC Hgb Hct MCV MCH MCHC RDW Plt Count MPV Absolute Neuts (auto) Neutrophils % Neutrophils % (Manual) Band Neutrophils % Lymphocytes % Lymphocytes % (Manual) Monocytes % Monocytes % (Manual) Eosinophils % Eosinophils % (Manual) Basophils % Basophils % (Manual) Myelocytes % (Man) Promyelocytes % (Man) Blast Cells % (Manual) Nucleated RBC % Metamyelocytes Hypochromia Platelet Estimate Platelet Comment Polychromasia Anisocytosis Microcytosis Macrocytosis PTT (Actin FS) Sodium Potassium Chloride Carbon Dioxide Anion Gap BUN Creatinine Est GFR (CKD-EPI)AfAm Est GFR (CKD-EPI)NonAf POC Glucometer 136 155 156 Random Glucose Calcium Phosphorus Magnesium Total Bilirubin AST ALT Alkaline Phosphatase Total Protein Albumin Random Vancomycin ASSESSMENT AND PLAN: Acute Hypoxic and Hypercapneic Respiratory Failure due to ARDS Pneumonia Gram Positive Bacteremia Septic Shock Volume Overload Lactic Acidosis Hyperkalemia Acute Kidney Injury Atrial Flutter with RVR HTN DM Anemia - Wean FiO2/PEEP as tolerated / Lung protective ventilation - Aggressive pulm toilet - ABX per ID - keep Pplat <30 - Sedation vacation to assess mental status - Monitor urine output, creatinine - Monitor lytes - Medrol - Inhaled bronchodilators - Rate control - Continue anticoagulation - DVT/GI prophylaxis - continue ICU monitoring - prognosis guarded Dr Maya Critical care time spent in reviewing chart, evaluating patient and formulating plan - 36 minutes.
[2019-05-07] MEDS ORDERED: VANCOMYCIN 1 GRAM (PRE-DOCKED) 1,000 MG/250 ML BAG IVPB ONE (10:04)
--- NOTE | 2019-05-07 10:04 | PN ---
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, Physician History of Present Illness: REMAINS ON VENTILATOR OFF PARALYTICS DECREASED FIO2 REQUIREMENT NO ACUTE DISTRESS AFEBRILE WBC WNL REPEAT BC NO GROWTH - Current Medication List Current Medications: Active Medications Albuterol/Ipratropium (Duoneb -) 1 amp NEB RQID ELISSA Last Admin: 05/06/19 20:30 Dose: 1 amp Chlorhexidine Gluconate (Hibiclens For Decolonization -) 1 applic TP HS ELISSA Last Admin: 05/06/19 21:10 Dose: 1 applic Heparin Sodium (Porcine) (Heparin -) 1,000 unit IVPUSH PRN PRN PRN Reason: Heparin Last Admin: 05/03/19 09:17 Dose: 1,000 unit Heparin Sodium (Porcine) (Heparin -) 5,000 unit IVPUSH PRN PRN PRN Reason: Heparin Last Admin: 05/02/19 10:07 Dose: 5,000 unit Vasopressin 50 units/ Sodium (Chloride) 100 mls @ 4 mls/hr IVPB ASDIR ELISSA; Protocol Last Titration: 05/07/19 02:59 Dose: 0 units/hr, 0 mls/hr Propofol (Diprivan -) 1,000,000 mcg in 100 mls @ 4.082 mls/hr IVPB TITR ELISSA; Protocol Last Admin: 05/07/19 06:00 Dose: 40 mcg/kg/min, 32.659 mls/hr Heparin Sodium (Porcine) 50, (000 unit/ Sodium Chloride) 500 mls @ 10 mls/hr IV TITR ELISSA; Protocol Last Admin: 05/06/19 17:03 Dose: 1,500 unit/hr, 15 mls/hr Norepinephrine Bitartrate 8, 000 mcg/ Dextrose/Sodium Chloride 500 mls @ 18.75 mls/hr IV TITR ELISSA; Protocol Last Admin: 05/06/19 14:25 Dose: Not Given Piperacillin Sod/Tazobactam (Sod 3.375 gm/ Dextrose) 50 mls @ 100 mls/hr IVPB Q8H-IV ELISSA; Protocol Last Admin: 05/07/19 09:37 Dose: 100 mls/hr Fentanyl 500 mcg/ Dextrose 100 mls @ 10 mls/hr IVPB TITR ELISSA; Protocol Last Admin: 05/07/19 04:28 Dose: 100 mcg/hr, 20 mls/hr Insulin Human Regular 100 (units/ Sodium Chloride) 100 mls @ 14.34 mls/hr IVPB TITR [facility]; Protocol Last Titration: 05/07/19 06:13 Dose: 0.02 units/kg/hr, 3.8 mls/hr Furosemide 100 mg/ Sodium (Chloride) 100 mls @ 5 mls/hr IVPB ASDIR [facility]; Protocol Last Admin: 05/06/19 12:38 Dose: 5 mg/hr, 5 mls/hr Potassium Chloride (Potassium Chloride 10 Meq Premix Ivpb -) 10 meq in 100 mls @ 100 mls/hr IVPB Q60M [facility] Stop: 05/07/19 10:29 Last Admin: 05/07/19 09:38 Dose: 100 mls/hr Methylprednisolone Sodium Succinate (Solu-Medrol -) 40 mg IVPUSH Q8H-IV [facility] Last Admin: 05/07/19 01:00 Dose: 40 mg Metoprolol Tartrate (Lopressor Injection -) 5 mg IVPUSH Q4H PRN PRN Reason: TACHYCARDIA Last Admin: 05/05/19 06:38 Dose: 5 mg Metoprolol Tartrate (Lopressor -) 25 mg PO BID [facility] Last Admin: 05/06/19 21:10 Dose: 25 mg Pantoprazole Sodium (Protonix Iv) 40 mg IVPUSH DAILY [facility] Last Admin: 05/06/19 09:44 Dose: 40 mg - Objective Vital Signs: Vital Signs Temperature 98.3 F 05/07/19 06:00 Pulse Rate 101 H 05/07/19 08:00 Respiratory Rate 36 H 05/07/19 06:00 Blood Pressure 99/64 05/07/19 08:00 O2 Sat by Pulse Oximetry (%) 100 05/07/19 06:32 Constitutional: Yes: No Distress Cardiovascular: Yes: Regular Rate and Rhythm, S1, S2 Respiratory: Yes: Mechanically Ventilated Gastrointestinal: Yes: Normal Bowel Sounds, Soft. No: Tenderness Edema: Yes Labs: CBC, BMP 05/07/19 05:15 05/07/19 06:00 INR, PTT INR 1.09 (0.83-1.09) 05/05/19 05:30 Assessment/Plan ACUTE RESP FAILURE CHF/ PNEUMONIA +BC SCN, GPR ? SIGNIFICANCE RENAL FAILURE CONTINUE VENTILATORY/ HEMODYNAMIC SUPPORT CONTINUE ZOSYN REDOSE VANCOMYCIN
[2019-05-07] MEDS: VASOPRESSIN 50 UNITS in SODIUM CHLORIDE 97.5 ML IVPB SCH (10:05)
[2019-05-07] MEDS: PANTOPRAZOLE SODIUM 40 MG VIAL IVPUSH SCH (10:08)
[2019-05-07] MEDS: FUROSEMIDE INJECTION 100 MG in SODIUM CHLORIDE 90 ML IVPB SCH (10:08)
[2019-05-07] MEDS: METOPROLOL TARTRATE 25 MG TABLET (FP) PO SCH ×2 (10:08→21:44)
--- NOTE | 2019-05-07 11:31 | PN ---
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, Physician History of Present Illness: Pt seen and examined at bedside. He remains in the ICU. He remains sedated. - Current Medication List Current Medications: Active Medications Albuterol/Ipratropium (Duoneb -) 1 amp NEB RQID ELISSA Last Admin: 05/07/19 08:15 Dose: 1 amp Chlorhexidine Gluconate (Hibiclens For Decolonization -) 1 applic TP HS ELISSA Last Admin: 05/06/19 21:10 Dose: 1 applic Heparin Sodium (Porcine) (Heparin -) 1,000 unit IVPUSH PRN PRN PRN Reason: Heparin Last Admin: 05/03/19 09:17 Dose: 1,000 unit Heparin Sodium (Porcine) (Heparin -) 5,000 unit IVPUSH PRN PRN PRN Reason: Heparin Last Admin: 05/02/19 10:07 Dose: 5,000 unit Vasopressin 50 units/ Sodium (Chloride) 100 mls @ 4 mls/hr IVPB ASDIR ELISSA; Protocol Last Admin: 05/07/19 10:05 Dose: Not Given Propofol (Diprivan -) 1,000,000 mcg in 100 mls @ 4.082 mls/hr IVPB TITR ELISSA; Protocol Last Admin: 05/07/19 06:00 Dose: 40 mcg/kg/min, 32.659 mls/hr Heparin Sodium (Porcine) 50, (000 unit/ Sodium Chloride) 500 mls @ 10 mls/hr IV TITR ELISSA; Protocol Last Admin: 05/06/19 17:03 Dose: 1,500 unit/hr, 15 mls/hr Norepinephrine Bitartrate 8, 000 mcg/ Dextrose/Sodium Chloride 500 mls @ 18.75 mls/hr IV TITR ELISSA; Protocol Last Admin: 05/06/19 14:25 Dose: Not Given Piperacillin Sod/Tazobactam (Sod 3.375 gm/ Dextrose) 50 mls @ 100 mls/hr IVPB Q8H-IV ELISSA; Protocol Last Admin: 05/07/19 09:37 Dose: 100 mls/hr Fentanyl 500 mcg/ Dextrose 100 mls @ 10 mls/hr IVPB TITR ELISSA; Protocol Last Admin: 05/07/19 04:28 Dose: 100 mcg/hr, 20 mls/hr Insulin Human Regular 100 (units/ Sodium Chloride) 100 mls @ 14.34 mls/hr IVPB TITR ELISSA; Protocol Last Titration: 05/07/19 06:13 Dose: 0.02 units/kg/hr, 3.8 mls/hr Furosemide 100 mg/ Sodium (Chloride) 100 mls @ 5 mls/hr IVPB ASDIR ON LICENSE OF [facility]; Protocol Last Admin: 05/07/19 10:08 Dose: 5 mg/hr, 5 mls/hr Vancomycin HCl (Vancomycin (Pre-Docked)) 1,000 mg in 250 mls @ 166.667 mls/hr IVPB ONCE ONE; Protocol Stop: 05/07/19 11:33 Methylprednisolone Sodium Succinate (Solu-Medrol -) 40 mg IVPUSH Q8H-IV ON LICENSE OF [facility] Last Admin: 05/07/19 10:07 Dose: 40 mg Metoprolol Tartrate (Lopressor Injection -) 5 mg IVPUSH Q4H PRN PRN Reason: TACHYCARDIA Last Admin: 05/05/19 06:38 Dose: 5 mg Metoprolol Tartrate (Lopressor -) 25 mg PO BID ON LICENSE OF [facility] Last Admin: 05/07/19 10:08 Dose: 25 mg Pantoprazole Sodium (Protonix Iv) 40 mg IVPUSH DAILY ON LICENSE OF [facility] Last Admin: 05/07/19 10:08 Dose: 40 mg - Objective Vital Signs: Vital Signs Temperature 98.3 F 05/07/19 06:00 Pulse Rate 101 H 05/07/19 08:15 Respiratory Rate 36 H 05/07/19 08:15 Blood Pressure 99/64 05/07/19 08:00 O2 Sat by Pulse Oximetry (%) 99 05/07/19 08:15 Constitutional: Yes: Calm Eyes: Yes: Conjunctiva Clear HENT: Yes: Atraumatic Cardiovascular: Yes: S1, S2 Respiratory: Yes: Intubated, Mechanically Ventilated Gastrointestinal: Yes: Soft, Abdomen, Obese Genitourinary: Yes: Andrews Present Musculoskeletal: Yes: Muscle Weakness Edema: Yes Edema: LLE: 1+, RLE: 1+ Integumentary: Yes: Venous Stasis Changes Neurological: Yes: Lethargy Labs: CBC, BMP 05/07/19 05:15 05/07/19 06:00 INR, PTT INR 1.09 (0.83-1.09) 05/05/19 05:30 - ....Imaging Chest X-ray: Report Reviewed Problem List - Problems (1) Acute decompensated heart failure Code(s): I50.9 - HEART FAILURE, UNSPECIFIED (2) Atrial fibrillation and flutter Code(s): I48.91 - UNSPECIFIED ATRIAL FIBRILLATION; I48.92 - UNSPECIFIED ATRIAL FLUTTER (3) Hyperkalemia Code(s): E87.5 - HYPERKALEMIA (4) Pneumonia Code(s): J18.9 - PNEUMONIA, UNSPECIFIED ORGANISM Qualifiers: Pneumonia type: due to unspecified organism (5) Sarcoidosis of other sites Code(s): D86.89 - SARCOIDOSIS OF OTHER SITES Assessment/Plan Current Medications Generic Name Dose Route Start Last Admin Trade Name Freq PRN Reason Stop Dose Admin Albuterol/Ipratropium 1 amp 04/30/19 16:00 05/07/19 08:15 Duoneb - NEB 1 amp RQID ELISSA Administration Chlorhexidine Gluconate 1 applic 04/30/19 22:00 05/06/19 21:10 Hibiclens For Decolonization - TP 1 applic HS ELISSA Administration Heparin Sodium (Porcine) 1,000 unit 04/30/19 10:40 05/03/19 09:17 Heparin - IVPUSH 1,000 unit PRN PRN Administration Heparin Heparin Sodium (Porcine) 5,000 unit 04/30/19 10:40 05/02/19 10:07 Heparin - IVPUSH 5,000 unit PRN PRN Administration Heparin Vasopressin 50 units/ Sodium 100 mls @ 4 mls/hr 04/30/19 09:30 05/07/19 10:05 Chloride IVPB Not Given ASDIR ELISSA Protocol 2 UNITS/HR Propofol 1,000,000 mcg in 100 mls @ 4.082 mls/hr 04/30/19 10:15 05/07/19 06: 00 Diprivan - IVPB 40 mcg/kg/min TITR ELISSA 32.659 mls/hr Administration Protocol 5 MCG/KG/MIN Heparin Sodium (Porcine) 50, 500 mls @ 10 mls/hr 04/30/19 10:45 05/06/19 17: 03 000 unit/ Sodium Chloride IV 1,500 unit/hr TITR ELISSA 15 mls/hr Administration Protocol 1,000 UNIT/HR Norepinephrine Bitartrate 8, 500 mls @ 18.75 mls/hr 04/30/19 14:00 05/06/19 14:25 000 mcg/ Dextrose/Sodium IV Not Given Chloride TITR ELISSA Protocol 5 MCG/MIN Piperacillin Sod/Tazobactam 50 mls @ 100 mls/hr 05/01/19 18:00 05/07/19 09:37 Sod 3.375 gm/ Dextrose IVPB 100 mls/hr Q8H-IV ELISSA Administration Protocol Fentanyl 500 mcg/ Dextrose 100 mls @ 10 mls/hr 05/01/19 12:45 05/07/19 04:28 IVPB 100 mcg/hr TITR ELISSA 20 mls/hr Administration Protocol 50 MCG/HR Insulin Human Regular 100 100 mls @ 14.34 mls/hr 05/02/19 12:00 05/07/19 06: 13 units/ Sodium Chloride IVPB 0.02 units/kg/hr TITR ELISSA 3.8 mls/hr Titration Protocol 0.1 UNITS/KG/HR Furosemide 100 mg/ Sodium 100 mls @ 5 mls/hr 05/06/19 09:45 05/07/19 10:08 Chloride IVPB 5 mg/hr ASDIR ELISSA 5 mls/hr Administration Protocol 5 MG/HR Vancomycin HCl 1,000 mg in 250 mls @ 166.667 mls/hr 05/07/19 10:04 Vancomycin (Pre-Docked) IVPB 05/07/19 11:33 ONCE ONE Protocol Methylprednisolone Sodium Succinate 40 mg 05/02/19 14:05 05/07/19 10:07 Solu-Medrol - IVPUSH 40 mg Q8H-IV ELISSA Administration Metoprolol Tartrate 5 mg 04/30/19 08:57 05/05/19 06:38 Lopressor Injection - IVPUSH 5 mg Q4H PRN Administration TACHYCARDIA Metoprolol Tartrate 25 mg 05/02/19 13:45 05/07/19 10:08 Lopressor - PO 25 mg BID ELISSA Administration Pantoprazole Sodium 40 mg 05/01/19 10:00 05/07/19 10:08 Protonix Iv IVPUSH 40 mg DAILY ELISSA Administration Impression 1. RYNE 2. hyperkalemia 3. resp failure requiring intubation 4. resp acidosis 5. dm 6. hx htn 7. sleep apnea 8. obesity 9. hx non compliance 10. chf 11. sarcoid 12. volume overload Plan - volume status continues to improve - cont lasix - monitor renal function - vent support - monitor abg - discussed with ICU team - pending bed at [place] - monitor urine output
--- NOTE | 2019-05-07 13:12 | PN ---
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, Physician History of Present Illness: Remains intubated, sedated, on ventilator with AC Mode of vent, 50% FiO2 / PEEP 8 remains off vasopressin and Levophed gtt, aflutter rate-controlled, undergoing diuresis. - Current Medication List Current Medications: Active Medications Albuterol/Ipratropium (Duoneb -) 1 amp NEB RQID ELISSA Last Admin: 05/07/19 08:15 Dose: 1 amp Chlorhexidine Gluconate (Hibiclens For Decolonization -) 1 applic TP HS ELISSA Last Admin: 05/06/19 21:10 Dose: 1 applic Heparin Sodium (Porcine) (Heparin -) 1,000 unit IVPUSH PRN PRN PRN Reason: Heparin Last Admin: 05/03/19 09:17 Dose: 1,000 unit Heparin Sodium (Porcine) (Heparin -) 5,000 unit IVPUSH PRN PRN PRN Reason: Heparin Last Admin: 05/02/19 10:07 Dose: 5,000 unit Vasopressin 50 units/ Sodium (Chloride) 100 mls @ 4 mls/hr IVPB ASDIR ELISSA; Protocol Last Admin: 05/07/19 10:05 Dose: Not Given Propofol (Diprivan -) 1,000,000 mcg in 100 mls @ 4.082 mls/hr IVPB TITR ELISSA; Protocol Last Admin: 05/07/19 12:10 Dose: 40 mcg/kg/min, 32.659 mls/hr Heparin Sodium (Porcine) 50, (000 unit/ Sodium Chloride) 500 mls @ 10 mls/hr IV TITR ELISSA; Protocol Last Admin: 05/06/19 17:03 Dose: 1,500 unit/hr, 15 mls/hr Norepinephrine Bitartrate 8, 000 mcg/ Dextrose/Sodium Chloride 500 mls @ 18.75 mls/hr IV TITR ELISSA; Protocol Last Admin: 05/06/19 14:25 Dose: Not Given Piperacillin Sod/Tazobactam (Sod 3.375 gm/ Dextrose) 50 mls @ 100 mls/hr IVPB Q8H-IV ELISSA; Protocol Last Admin: 05/07/19 09:37 Dose: 100 mls/hr Fentanyl 500 mcg/ Dextrose 100 mls @ 10 mls/hr IVPB TITR ELISSA; Protocol Last Admin: 05/07/19 04:28 Dose: 100 mcg/hr, 20 mls/hr Insulin Human Regular 100 (units/ Sodium Chloride) 100 mls @ 14.34 mls/hr IVPB TITR [facility]; Protocol Last Titration: 05/07/19 06:13 Dose: 0.02 units/kg/hr, 3.8 mls/hr Furosemide 100 mg/ Sodium (Chloride) 100 mls @ 5 mls/hr IVPB ASDIR [facility]; Protocol Last Admin: 05/07/19 10:08 Dose: 5 mg/hr, 5 mls/hr Methylprednisolone Sodium Succinate (Solu-Medrol -) 40 mg IVPUSH Q8H-IV [facility] Last Admin: 05/07/19 10:07 Dose: 40 mg Metoprolol Tartrate (Lopressor Injection -) 5 mg IVPUSH Q4H PRN PRN Reason: TACHYCARDIA Last Admin: 05/05/19 06:38 Dose: 5 mg Metoprolol Tartrate (Lopressor -) 25 mg PO BID [facility] Last Admin: 05/07/19 10:08 Dose: 25 mg Pantoprazole Sodium (Protonix Iv) 40 mg IVPUSH DAILY [facility] Last Admin: 05/07/19 10:08 Dose: 40 mg - Objective Vital Signs: Vital Signs Temperature 97.8 F 05/07/19 10:00 Pulse Rate 104 H 05/07/19 12:00 Respiratory Rate 36 H 05/07/19 12:00 Blood Pressure 106/71 05/07/19 12:00 O2 Sat by Pulse Oximetry (%) 99 05/07/19 10:00 Constitutional: Yes: No Distress, Calm Neck: Yes: Supple Cardiovascular: Yes: Regular Rate and Rhythm Respiratory: Yes: Intubated, Mechanically Ventilated Gastrointestinal: Yes: Normal Bowel Sounds, Soft, Abdomen, Obese Genitourinary: Yes: Andrews Present Edema: No Labs: CBC, BMP 05/07/19 05:15 05/07/19 06:00 INR, PTT INR 1.09 (0.83-1.09) 05/05/19 05:30 - ....Imaging Chest X-ray: Report Reviewed (Left base ATX, otherwise improving) EKG: Report Reviewed (Tele: Rate-controlled aflutter) Problem List - Problems (1) Pneumonia Code(s): J18.9 - PNEUMONIA, UNSPECIFIED ORGANISM Qualifiers: Pneumonia type: due to unspecified organism (2) Septic shock Code(s): A41.9 - SEPSIS, UNSPECIFIED ORGANISM; R65.21 - SEVERE SEPSIS WITH SEPTIC SHOCK (3) Acute hypercapnic respiratory failure due to obstructive sleep apnea Code(s): J96.02 - ACUTE RESPIRATORY FAILURE WITH HYPERCAPNIA; G47.33 - OBSTRUCTIVE SLEEP APNEA (ADULT) (PEDIATRIC) (4) Acute decompensated heart failure Code(s): I50.9 - HEART FAILURE, UNSPECIFIED (5) Acute renal failure Code(s): N17.9 - ACUTE KIDNEY FAILURE, UNSPECIFIED Qualifiers: Acute renal failure type: unspecified Qualified Code(s): N17.9 - Acute kidney failure, unspecified (6) Hyperkalemia Code(s): E87.5 - HYPERKALEMIA (7) Atrial fibrillation and flutter Code(s): I48.91 - UNSPECIFIED ATRIAL FIBRILLATION; I48.92 - UNSPECIFIED ATRIAL FLUTTER (8) Sarcoidosis of other sites Code(s): D86.89 - SARCOIDOSIS OF OTHER SITES (9) Type 2 diabetes mellitus Code(s): E11.9 - TYPE 2 DIABETES MELLITUS WITHOUT COMPLICATIONS Qualifiers: Diabetes mellitus [employer] insulin use: without halfway use Diabetes mellitus complication detail: with chronic kidney disease Chronic kidney disease stage: stage 2 (mild) Assessment/Plan 05/01/2019 Normal LV and RV size and fxn, tr TR 03/14/2019 Normal LV size and fxn, no thrombus ADEEL, mild-mod dilated and HK RV, tr MR, mild-mod TR, tr AK, trace pericardial effusion 1. Acute hypoxic and hypercapneic respiratory failure on mechanical ventilation 2. Pneumonia, post septic shock, Gram Positive Bacteremia, r/o ARDS 3. Sarcoidosis confirmed by skin biopsy, r/o cardiac involvement 4. OSAS nonadherent to cpap 5. Paroxysmal Aflutter/Afib with RVR 6. Acute on chronic diastolic heart failure 7. Acute on CKD with hyperkalemia resolving 8. Type 2 DM 9. Anemia P:1. Empiric abx f/u C&S, IV steroid taper with GI protection, BD, enteral feeds 2. Weaned off vasopressin and Levophed gtt for MAP>65 mmHg 3. Vent management per ABG, ARDS protocol and off paralysis 4. Rate-control with oral and IV Lopressor as hemodynamics tolerate, heparin gtt with eliquis held for now 5. Continue Lasix gtt @ 5/hr with monitor diuretic response, renal fxn and electrolytes 6. Resume lisinopril 10 qd once renal function and hyperkalemia stabilizes 7. He f/u with Dr. Genaro Davila (cardiology at [place]), cardiac PET or MRI to exclude cardiac involvement in sarcoidosis as outpatient
--- NOTE | 2019-05-07 14:09 | PN ---
Physical Exam: SUBJECTIVE: Patient seen and examined. No acute events overnight. Continuing to wean down on oxygen. Off pressors. Spoke with [facility], no bed availability yet. OBJECTIVE: Vital Signs Period Temp Pulse Resp BP Sys/[place] Pulse Ox Last 24 Hr 97.6 F-98.3 F 72-120 34-36 95-158/56-99 98-100 GENERAL: intubated, sedated on Fentanyl and Propofol HEAD: Normal with no signs of trauma. EYES: PERRL ENT: dry mucous membranes NECK: Trachea midline, supple, Left IJ in place LUNGS: Mechanically ventilated, coarse breath sounds bilaterally, tachypnic HEART: tachycardic ABDOMEN: obese, soft, nontender, decreased bowel sounds EXTREMITIES: 2+ pulses, warm, well-perfused. 1+ non pitting edema bilateral lower extremities NEUROLOGICAL: poor gag reflex, normal muscle tone SKIN: Warm, dry, normal turgor Laboratory Results - last 24 hr 05/06/19 05/06/19 05/06/19 14:22 15:38 17:11 WBC RBC Hgb Hct MCV MCH MCHC RDW Plt Count MPV Absolute Neuts (auto) Neutrophils % Neutrophils % (Manual) Band Neutrophils % Lymphocytes % Lymphocytes % (Manual) Monocytes % Monocytes % (Manual) Eosinophils % Eosinophils % (Manual) Basophils % Basophils % (Manual) Myelocytes % (Man) Promyelocytes % (Man) Blast Cells % (Manual) Nucleated RBC % Metamyelocytes Hypochromia Platelet Estimate Platelet Comment Polychromasia Poikilocytosis Anisocytosis Microcytosis Macrocytosis Spherocytes Target Cells Tear Drop Cells Ovalocytes Stomatocytes PTT (Actin FS) Sodium Potassium Chloride Carbon Dioxide Anion Gap BUN Creatinine Est GFR (CKD-EPI)AfAm Est GFR (CKD-EPI)NonAf POC Glucometer 234 197 193 Random Glucose Calcium Phosphorus Magnesium Total Bilirubin AST ALT Alkaline Phosphatase Total Protein Albumin Random Vancomycin 05/06/19 05/06/19 05/06/19 18:49 20:02 21:01 WBC RBC Hgb Hct MCV MCH MCHC RDW Plt Count MPV Absolute Neuts (auto) Neutrophils % Neutrophils % (Manual) Band Neutrophils % Lymphocytes % Lymphocytes % (Manual) Monocytes % Monocytes % (Manual) Eosinophils % Eosinophils % (Manual) Basophils % Basophils % (Manual) Myelocytes % (Man) Promyelocytes % (Man) Blast Cells % (Manual) Nucleated RBC % Metamyelocytes Hypochromia Platelet Estimate Platelet Comment Polychromasia Poikilocytosis Anisocytosis Microcytosis Macrocytosis Spherocytes Target Cells Tear Drop Cells Ovalocytes Stomatocytes PTT (Actin FS) Sodium Potassium Chloride Carbon Dioxide Anion Gap BUN Creatinine Est GFR (CKD-EPI)AfAm Est GFR (CKD-EPI)NonAf POC Glucometer 151 144 151 Random Glucose Calcium Phosphorus Magnesium Total Bilirubin AST ALT Alkaline Phosphatase Total Protein Albumin Random Vancomycin 05/06/19 05/06/19 05/07/19 22:05 23:35 00:20 WBC RBC Hgb Hct MCV MCH MCHC RDW Plt Count MPV Absolute Neuts (auto) Neutrophils % Neutrophils % (Manual) Band Neutrophils % Lymphocytes % Lymphocytes % (Manual) Monocytes % Monocytes % (Manual) Eosinophils % Eosinophils % (Manual) Basophils % Basophils % (Manual) Myelocytes % (Man) Promyelocytes % (Man) Blast Cells % (Manual) Nucleated RBC % Metamyelocytes Hypochromia Platelet Estimate Platelet Comment Polychromasia Poikilocytosis Anisocytosis Microcytosis Macrocytosis Spherocytes Target Cells Tear Drop Cells Ovalocytes Stomatocytes PTT (Actin FS) Sodium 142 Potassium 4.2 Chloride 102 Carbon Dioxide 35 H Anion Gap 6 L BUN 69.2 H Creatinine 1.8 H Est GFR (CKD-EPI)AfAm 49.40 Est GFR (CKD-EPI)NonAf 42.63 POC Glucometer 218 177 Random Glucose 183 H Calcium 9.3 Phosphorus Magnesium Total Bilirubin AST ALT Alkaline Phosphatase Total Protein Albumin Random Vancomycin 05/07/19 05/07/19 05/07/19 00:21 01:09 02:24 WBC RBC Hgb Hct MCV MCH MCHC RDW Plt Count MPV Absolute Neuts (auto) Neutrophils % Neutrophils % (Manual) Band Neutrophils % Lymphocytes % Lymphocytes % (Manual) Monocytes % Monocytes % (Manual) Eosinophils % Eosinophils % (Manual) Basophils % Basophils % (Manual) Myelocytes % (Man) Promyelocytes % (Man) Blast Cells % (Manual) Nucleated RBC % Metamyelocytes Hypochromia Platelet Estimate Platelet Comment Polychromasia Poikilocytosis Anisocytosis Microcytosis Macrocytosis Spherocytes Target Cells Tear Drop Cells Ovalocytes Stomatocytes PTT (Actin FS) Sodium Potassium Chloride Carbon Dioxide Anion Gap BUN Creatinine Est GFR (CKD-EPI)AfAm Est GFR (CKD-EPI)NonAf POC Glucometer 181 209 192 Random Glucose Calcium Phosphorus Magnesium Total Bilirubin AST ALT Alkaline Phosphatase Total Protein Albumin Random Vancomycin 05/07/19 05/07/19 05/07/19 03:02 04:11 05:06 WBC RBC Hgb Hct MCV MCH MCHC RDW Plt Count MPV Absolute Neuts (auto) Neutrophils % Neutrophils % (Manual) Band Neutrophils % Lymphocytes % Lymphocytes % (Manual) Monocytes % Monocytes % (Manual) Eosinophils % Eosinophils % (Manual) Basophils % Basophils % (Manual) Myelocytes % (Man) Promyelocytes % (Man) Blast Cells % (Manual) Nucleated RBC % Metamyelocytes Hypochromia Platelet Estimate Platelet Comment Polychromasia Poikilocytosis Anisocytosis Microcytosis Macrocytosis Spherocytes Target Cells Tear Drop Cells Ovalocytes Stomatocytes PTT (Actin FS) Sodium Potassium Chloride Carbon Dioxide Anion Gap BUN Creatinine Est GFR (CKD-EPI)AfAm Est GFR (CKD-EPI)NonAf POC Glucometer 183 156 140 Random Glucose Calcium Phosphorus Magnesium Total Bilirubin AST ALT Alkaline Phosphatase Total Protein Albumin Random Vancomycin 05/07/19 05/07/19 05/07/19 05:15 05:15 05:15 WBC 8.7 RBC 4.40 Hgb 10.5 L Hct 34.4 L MCV 78.3 L MCH 23.9 L MCHC 30.5 L RDW 19.3 H Plt Count 269 D MPV 8.2 Absolute Neuts (auto) 8.0 Neutrophils % 92.0 H Neutrophils % (Manual) 91.8 H Band Neutrophils % 1.0 Lymphocytes % 1.7 L Lymphocytes % (Manual) 2.1 L D Monocytes % 6.0 Monocytes % (Manual) 4 D Eosinophils % 0.0 Eosinophils % (Manual) 0.0 Basophils % 0.3 Basophils % (Manual) 0.0 Myelocytes % (Man) 0 Promyelocytes % (Man) 0 Blast Cells % (Manual) 1 H D Nucleated RBC % 0 Metamyelocytes 0 Hypochromia 0 Platelet Estimate Normal Platelet Comment Present Polychromasia 1+ Poikilocytosis 1+ Anisocytosis 1+ Microcytosis 1+ Macrocytosis 0 Spherocytes 1+ Target Cells 1+ Tear Drop Cells 1+ Ovalocytes 1+ Stomatocytes 1+ PTT (Actin FS) 70.7 H Sodium Potassium Chloride Carbon Dioxide Anion Gap BUN Creatinine Est GFR (CKD-EPI)AfAm Est GFR (CKD-EPI)NonAf POC Glucometer Random Glucose Calcium Phosphorus Magnesium Total Bilirubin AST ALT Alkaline Phosphatase Total Protein Albumin Random Vancomycin 10.6 L 05/07/19 05/07/19 05/07/19 06:00 06:02 07:02 WBC RBC Hgb Hct MCV MCH MCHC RDW Plt Count MPV Absolute Neuts (auto) Neutrophils % Neutrophils % (Manual) Band Neutrophils % Lymphocytes % Lymphocytes % (Manual) Monocytes % Monocytes % (Manual) Eosinophils % Eosinophils % (Manual) Basophils % Basophils % (Manual) Myelocytes % (Man) Promyelocytes % (Man) Blast Cells % (Manual) Nucleated RBC % Metamyelocytes Hypochromia Platelet Estimate Platelet Comment Polychromasia Poikilocytosis Anisocytosis Microcytosis Macrocytosis Spherocytes Target Cells Tear Drop Cells Ovalocytes Stomatocytes PTT (Actin FS) Sodium 145 Potassium 3.8 Chloride 103 Carbon Dioxide 36 H Anion Gap 6 L BUN 67.3 H Creatinine 1.7 H Est GFR (CKD-EPI)AfAm 52.94 Est GFR (CKD-EPI)NonAf 45.68 POC Glucometer 136 155 Random Glucose 127 H Calcium 9.5 Phosphorus 4.5 Magnesium 2.4 Total Bilirubin 0.6 AST 45 H ALT 62 H Alkaline Phosphatase 88 Total Protein 6.2 L Albumin 2.7 L Random Vancomycin 05/07/19 05/07/19 05/07/19 08:50 10:24 12:37 WBC RBC Hgb Hct MCV MCH MCHC RDW Plt Count MPV Absolute Neuts (auto) Neutrophils % Neutrophils % (Manual) Band Neutrophils % Lymphocytes % Lymphocytes % (Manual) Monocytes % Monocytes % (Manual) Eosinophils % Eosinophils % (Manual) Basophils % Basophils % (Manual) Myelocytes % (Man) Promyelocytes % (Man) Blast Cells % (Manual) Nucleated RBC % Metamyelocytes Hypochromia Platelet Estimate Platelet Comment Polychromasia Poikilocytosis Anisocytosis Microcytosis Macrocytosis Spherocytes Target Cells Tear Drop Cells Ovalocytes Stomatocytes PTT (Actin FS) Sodium Potassium Chloride Carbon Dioxide Anion Gap BUN Creatinine Est GFR (CKD-EPI)AfAm Est GFR (CKD-EPI)NonAf POC Glucometer 156 161 155 Random Glucose Calcium Phosphorus Magnesium Total Bilirubin AST ALT Alkaline Phosphatase Total Protein Albumin Random Vancomycin Active Medications Generic Name Dose Route Start Last Admin Trade Name Freq PRN Reason Stop Dose Admin Albuterol/Ipratropium 1 amp 04/30/19 16:00 05/07/19 08:15 Duoneb - NEB 1 amp RQID ELISSA Administration Chlorhexidine Gluconate 1 applic 04/30/19 22:00 05/06/19 21:10 Hibiclens For Decolonization - TP 1 applic HS ELISSA Administration Heparin Sodium (Porcine) 1,000 unit 04/30/19 10:40 05/03/19 09:17 Heparin - IVPUSH 1,000 unit PRN PRN Administration Heparin Heparin Sodium (Porcine) 5,000 unit 04/30/19 10:40 05/02/19 10:07 Heparin - IVPUSH 5,000 unit PRN PRN Administration Heparin Vasopressin 50 units/ Sodium 100 mls @ 4 mls/hr 04/30/19 09:30 05/07/19 10:05 Chloride IVPB Not Given ASDIR ELISSA Protocol 2 UNITS/HR Propofol 1,000,000 mcg in 100 mls @ 4.082 mls/hr 04/30/19 10:15 05/07/19 12: 10 Diprivan - IVPB 40 mcg/kg/min TITR ELISSA 32.659 mls/hr Administration Protocol 5 MCG/KG/MIN Heparin Sodium (Porcine) 50, 500 mls @ 10 mls/hr 04/30/19 10:45 05/06/19 17: 03 000 unit/ Sodium Chloride IV 1,500 unit/hr TITR ELISSA 15 mls/hr Administration Protocol 1,000 UNIT/HR Norepinephrine Bitartrate 8, 500 mls @ 18.75 mls/hr 04/30/19 14:00 05/06/19 14:25 000 mcg/ Dextrose/Sodium IV Not Given Chloride TITR ELISSA Protocol 5 MCG/MIN Piperacillin Sod/Tazobactam 50 mls @ 100 mls/hr 05/01/19 18:00 05/07/19 09:37 Sod 3.375 gm/ Dextrose IVPB 100 mls/hr Q8H-IV ELISSA Administration Protocol Fentanyl 500 mcg/ Dextrose 100 mls @ 10 mls/hr 05/01/19 12:45 05/07/19 04:28 IVPB 100 mcg/hr TITR ELISSA 20 mls/hr Administration Protocol 50 MCG/HR Insulin Human Regular 100 100 mls @ 14.34 mls/hr 05/02/19 12:00 05/07/19 06: 13 units/ Sodium Chloride IVPB 0.02 units/kg/hr TITR ELISSA 3.8 mls/hr Titration Protocol 0.1 UNITS/KG/HR Furosemide 100 mg/ Sodium 100 mls @ 5 mls/hr 05/06/19 09:45 05/07/19 10:08 Chloride IVPB 5 mg/hr ASDIR ELISSA 5 mls/hr Administration Protocol 5 MG/HR Methylprednisolone Sodium Succinate 40 mg 05/02/19 14:05 05/07/19 10:07 Solu-Medrol - IVPUSH 40 mg Q8H-IV ELISSA Administration Metoprolol Tartrate 5 mg 04/30/19 08:57 05/05/19 06:38 Lopressor Injection - IVPUSH 5 mg Q4H PRN Administration TACHYCARDIA Metoprolol Tartrate 25 mg 05/02/19 13:45 05/07/19 10:08 Lopressor - PO 25 mg BID ELISSA Administration Pantoprazole Sodium 40 mg 05/01/19 10:00 05/07/19 10:08 Protonix Iv IVPUSH 40 mg DAILY ELISSA Administration ASSESSMENT/PLAN: 53 y/o/m with PMHx of DM2, HFpEF(last EF: 45-50%), 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 #Acute Hypoxic and Hypercapneic Respiratory Failure/ EMMY - Pt. intubated and Sedated - sedated on Propofol and fentanyl - Vecuronium discontinued - Recent ABGs with improvement, oxygen weaned to 50% - Pulm consulted - Hans RQID - Solumedrol 40mg Q8h IV - Follow CXRs - new atlectasis vs. infiltrate at left base - Azithromycin 500mg QD, Zosyn IV Q8hr - Redose Vanco per levels - ID consulted (Dr. Garcia) - Positive blood culture bottle initially but repeat blood cultures negative to date #HFpEF vs. Cardiogenic shock - Lasix drip @ 5mg/hr. Patient making good urine, negative balance daily - Strict Is & Os, daily weights - ECHO difficult to assess, unremarkable - BNP: 1634 - Cardiology Consult (Dr. Encinas) - off pressors, BP stable - Cardio recommends cardiac PET or MRI to exclude cardiac involvement in sarcoidosis as outpatient. F/u with Dr. Genaro Davila at [facility] #Atrial Flutter - Lopressor 25mg PO BID - Lopressor 5mg IVpush Q4hr PRN for rate control - Heparin drip #RYNE on CKD w/ Hyperkalemia - BUN/Cr 67.3/1.7 fluctuating levels - Nephrology Consulted (Dr. Kelley) - Likely secondary to volume overload. Pt. likely has CKD given risk factors of DM2 (uncontrolled glucose) and Heart Failure - Hyperkalemia resolved - lasix drip - Hold Lisinopril, restart 10mg QD once improved #DM2 - BGM ACHS - ISS ACHS - Insulin drip, improved sugar control #FEN - no standing IVF - monitor electrolytes. K+ normalized - feeds through NG tube #DVT Ppx. - Heparin drip - Protonix #Disposition - Continue ICU monitoring, off pressors, wean oxygen as tolerated - Possible transfer to [facility], pending bed availability Visit type - Emergency Visit Emergency Visit: Yes ED Registration Date: 04/30/19 Care time: The patient presented to the Emergency Department on the above date and was hospitalized for further evaluation of their emergent condition. - New Patient This patient is new to me today: No - Critical Care Critical Care patient: Yes Total Critical Care Time (in minutes): 36 Critical Care Statement: The care of this patient involved high complexity decision making to prevent further life threatening deterioration of the patient 's condition and/or to evaluate & treat vital organ system(s) failure or risk of failure. ATTENDING PHYSICIAN STATEMENT I saw and evaluated the patient. I reviewed the resident's note and discussed the case with the resident. I agree with the resident's findings and plan as documented. SUBJECTIVE: OBJECTIVE: ASSESSMENT AND PLAN:
--- NOTE | 2019-05-07 18:30 | PN ---
Teaching Attending Note Name of Resident: Giuseppe Rm ATTENDING PHYSICIAN STATEMENT I saw and evaluated the patient. I reviewed the resident's note and discussed the case with the resident. I agree with the resident's findings and plan as documented. SUBJECTIVE: Intubated, mechanically ventilated, sedated, unable to participate in medical interview OBJECTIVE: Afebrile. Weaned off Levophed and Vasopressin. Intubated/Ventilated - AC Mode/PEEP 8/FiO2 60% Last Vital Signs Temp Pulse Resp BP Pulse Ox 98.2 F 122 H 36 H 99/65 99 05/07/19 16:00 05/07/19 16:00 05/07/19 16:30 05/07/19 16:00 05/07/19 10:00 HEENT - Normocephalic. Intubated/Ventilated. OG tube. Heart - S1, S2, RRR Lungs - good air entry bilaterally Abdomen - High BMI, soft, non-tender. Bowel Sounds normal. Extremities - Mild edema, no calf tenderness. Neuro - Sedated. Laboratory Results - last 24 hr 05/06/19 05/06/19 05/06/19 18:49 20:02 21:01 WBC RBC Hgb Hct MCV MCH MCHC RDW Plt Count MPV Absolute Neuts (auto) Neutrophils % Neutrophils % (Manual) Band Neutrophils % Lymphocytes % Lymphocytes % (Manual) Monocytes % Monocytes % (Manual) Eosinophils % Eosinophils % (Manual) Basophils % Basophils % (Manual) Myelocytes % (Man) Promyelocytes % (Man) Blast Cells % (Manual) Nucleated RBC % Metamyelocytes Hypochromia Platelet Estimate Platelet Comment Polychromasia Poikilocytosis Anisocytosis Microcytosis Macrocytosis Spherocytes Target Cells Tear Drop Cells Ovalocytes Stomatocytes PTT (Actin FS) Sodium Potassium Chloride Carbon Dioxide Anion Gap BUN Creatinine Est GFR (CKD-EPI)AfAm Est GFR (CKD-EPI)NonAf POC Glucometer 151 144 151 Random Glucose Calcium Phosphorus Magnesium Total Bilirubin AST ALT Alkaline Phosphatase Total Protein Albumin Random Vancomycin 05/06/19 05/06/19 05/07/19 22:05 23:35 00:20 WBC RBC Hgb Hct MCV MCH MCHC RDW Plt Count MPV Absolute Neuts (auto) Neutrophils % Neutrophils % (Manual) Band Neutrophils % Lymphocytes % Lymphocytes % (Manual) Monocytes % Monocytes % (Manual) Eosinophils % Eosinophils % (Manual) Basophils % Basophils % (Manual) Myelocytes % (Man) Promyelocytes % (Man) Blast Cells % (Manual) Nucleated RBC % Metamyelocytes Hypochromia Platelet Estimate Platelet Comment Polychromasia Poikilocytosis Anisocytosis Microcytosis Macrocytosis Spherocytes Target Cells Tear Drop Cells Ovalocytes Stomatocytes PTT (Actin FS) Sodium 142 Potassium 4.2 Chloride 102 Carbon Dioxide 35 H Anion Gap 6 L BUN 69.2 H Creatinine 1.8 H Est GFR (CKD-EPI)AfAm 49.40 Est GFR (CKD-EPI)NonAf 42.63 POC Glucometer 218 177 Random Glucose 183 H Calcium 9.3 Phosphorus Magnesium Total Bilirubin AST ALT Alkaline Phosphatase Total Protein Albumin Random Vancomycin 05/07/19 05/07/19 05/07/19 00:21 01:09 02:24 WBC RBC Hgb Hct MCV MCH MCHC RDW Plt Count MPV Absolute Neuts (auto) Neutrophils % Neutrophils % (Manual) Band Neutrophils % Lymphocytes % Lymphocytes % (Manual) Monocytes % Monocytes % (Manual) Eosinophils % Eosinophils % (Manual) Basophils % Basophils % (Manual) Myelocytes % (Man) Promyelocytes % (Man) Blast Cells % (Manual) Nucleated RBC % Metamyelocytes Hypochromia Platelet Estimate Platelet Comment Polychromasia Poikilocytosis Anisocytosis Microcytosis Macrocytosis Spherocytes Target Cells Tear Drop Cells Ovalocytes Stomatocytes PTT (Actin FS) Sodium Potassium Chloride Carbon Dioxide Anion Gap BUN Creatinine Est GFR (CKD-EPI)AfAm Est GFR (CKD-EPI)NonAf POC Glucometer 181 209 192 Random Glucose Calcium Phosphorus Magnesium Total Bilirubin AST ALT Alkaline Phosphatase Total Protein Albumin Random Vancomycin 05/07/19 05/07/19 05/07/19 03:02 04:11 05:06 WBC RBC Hgb Hct MCV MCH MCHC RDW Plt Count MPV Absolute Neuts (auto) Neutrophils % Neutrophils % (Manual) Band Neutrophils % Lymphocytes % Lymphocytes % (Manual) Monocytes % Monocytes % (Manual) Eosinophils % Eosinophils % (Manual) Basophils % Basophils % (Manual) Myelocytes % (Man) Promyelocytes % (Man) Blast Cells % (Manual) Nucleated RBC % Metamyelocytes Hypochromia Platelet Estimate Platelet Comment Polychromasia Poikilocytosis Anisocytosis Microcytosis Macrocytosis Spherocytes Target Cells Tear Drop Cells Ovalocytes Stomatocytes PTT (Actin FS) Sodium Potassium Chloride Carbon Dioxide Anion Gap BUN Creatinine Est GFR (CKD-EPI)AfAm Est GFR (CKD-EPI)NonAf POC Glucometer 183 156 140 Random Glucose Calcium Phosphorus Magnesium Total Bilirubin AST ALT Alkaline Phosphatase Total Protein Albumin Random Vancomycin 05/07/19 05/07/19 05/07/19 05:15 05:15 05:15 WBC 8.7 RBC 4.40 Hgb 10.5 L Hct 34.4 L MCV 78.3 L MCH 23.9 L MCHC 30.5 L RDW 19.3 H Plt Count 269 D MPV 8.2 Absolute Neuts (auto) 8.0 Neutrophils % 92.0 H Neutrophils % (Manual) 91.8 H Band Neutrophils % 1.0 Lymphocytes % 1.7 L Lymphocytes % (Manual) 2.1 L D Monocytes % 6.0 Monocytes % (Manual) 4 D Eosinophils % 0.0 Eosinophils % (Manual) 0.0 Basophils % 0.3 Basophils % (Manual) 0.0 Myelocytes % (Man) 0 Promyelocytes % (Man) 0 Blast Cells % (Manual) 1 H D Nucleated RBC % 0 Metamyelocytes 0 Hypochromia 0 Platelet Estimate Normal Platelet Comment Present Polychromasia 1+ Poikilocytosis 1+ Anisocytosis 1+ Microcytosis 1+ Macrocytosis 0 Spherocytes 1+ Target Cells 1+ Tear Drop Cells 1+ Ovalocytes 1+ Stomatocytes 1+ PTT (Actin FS) 70.7 H Sodium Potassium Chloride Carbon Dioxide Anion Gap BUN Creatinine Est GFR (CKD-EPI)AfAm Est GFR (CKD-EPI)NonAf POC Glucometer Random Glucose Calcium Phosphorus Magnesium Total Bilirubin AST ALT Alkaline Phosphatase Total Protein Albumin Random Vancomycin 10.6 L 05/07/19 05/07/19 05/07/19 06:00 06:02 07:02 WBC RBC Hgb Hct MCV MCH MCHC RDW Plt Count MPV Absolute Neuts (auto) Neutrophils % Neutrophils % (Manual) Band Neutrophils % Lymphocytes % Lymphocytes % (Manual) Monocytes % Monocytes % (Manual) Eosinophils % Eosinophils % (Manual) Basophils % Basophils % (Manual) Myelocytes % (Man) Promyelocytes % (Man) Blast Cells % (Manual) Nucleated RBC % Metamyelocytes Hypochromia Platelet Estimate Platelet Comment Polychromasia Poikilocytosis Anisocytosis Microcytosis Macrocytosis Spherocytes Target Cells Tear Drop Cells Ovalocytes Stomatocytes PTT (Actin FS) Sodium 145 Potassium 3.8 Chloride 103 Carbon Dioxide 36 H Anion Gap 6 L BUN 67.3 H Creatinine 1.7 H Est GFR (CKD-EPI)AfAm 52.94 Est GFR (CKD-EPI)NonAf 45.68 POC Glucometer 136 155 Random Glucose 127 H Calcium 9.5 Phosphorus 4.5 Magnesium 2.4 Total Bilirubin 0.6 AST 45 H ALT 62 H Alkaline Phosphatase 88 Total Protein 6.2 L Albumin 2.7 L Random Vancomycin 05/07/19 05/07/19 05/07/19 08:50 10:24 12:37 WBC RBC Hgb Hct MCV MCH MCHC RDW Plt Count MPV Absolute Neuts (auto) Neutrophils % Neutrophils % (Manual) Band Neutrophils % Lymphocytes % Lymphocytes % (Manual) Monocytes % Monocytes % (Manual) Eosinophils % Eosinophils % (Manual) Basophils % Basophils % (Manual) Myelocytes % (Man) Promyelocytes % (Man) Blast Cells % (Manual) Nucleated RBC % Metamyelocytes Hypochromia Platelet Estimate Platelet Comment Polychromasia Poikilocytosis Anisocytosis Microcytosis Macrocytosis Spherocytes Target Cells Tear Drop Cells Ovalocytes Stomatocytes PTT (Actin FS) Sodium Potassium Chloride Carbon Dioxide Anion Gap BUN Creatinine Est GFR (CKD-EPI)AfAm Est GFR (CKD-EPI)NonAf POC Glucometer 156 161 155 Random Glucose Calcium Phosphorus Magnesium Total Bilirubin AST ALT Alkaline Phosphatase Total Protein Albumin Random Vancomycin 05/07/19 05/07/19 14:54 17:31 WBC RBC Hgb Hct MCV MCH MCHC RDW Plt Count MPV Absolute Neuts (auto) Neutrophils % Neutrophils % (Manual) Band Neutrophils % Lymphocytes % Lymphocytes % (Manual) Monocytes % Monocytes % (Manual) Eosinophils % Eosinophils % (Manual) Basophils % Basophils % (Manual) Myelocytes % (Man) Promyelocytes % (Man) Blast Cells % (Manual) Nucleated RBC % Metamyelocytes Hypochromia Platelet Estimate Platelet Comment Polychromasia Poikilocytosis Anisocytosis Microcytosis Macrocytosis Spherocytes Target Cells Tear Drop Cells Ovalocytes Stomatocytes PTT (Actin FS) Sodium Potassium Chloride Carbon Dioxide Anion Gap BUN Creatinine Est GFR (CKD-EPI)AfAm Est GFR (CKD-EPI)NonAf POC Glucometer 169 148 Random Glucose Calcium Phosphorus Magnesium Total Bilirubin AST ALT Alkaline Phosphatase Total Protein Albumin Random Vancomycin Current Medications Generic Name Dose Route Start Last Admin Trade Name Freq PRN Reason Stop Dose Admin Albuterol/Ipratropium 1 amp 04/30/19 16:00 05/07/19 16:30 Duoneb - NEB 1 amp RQID ELISSA Administration Chlorhexidine Gluconate 1 applic 04/30/19 22:00 05/06/19 21:10 Hibiclens For Decolonization - TP 1 applic HS ELISSA Administration Heparin Sodium (Porcine) 1,000 unit 04/30/19 10:40 05/03/19 09:17 Heparin - IVPUSH 1,000 unit PRN PRN Administration Heparin Heparin Sodium (Porcine) 5,000 unit 04/30/19 10:40 05/02/19 10:07 Heparin - IVPUSH 5,000 unit PRN PRN Administration Heparin Vasopressin 50 units/ Sodium 100 mls @ 4 mls/hr 04/30/19 09:30 05/07/19 10:05 Chloride IVPB Not Given ASDIR ELISSA Protocol 2 UNITS/HR Propofol 1,000,000 mcg in 100 mls @ 4.082 mls/hr 04/30/19 10:15 05/07/19 12: 10 Diprivan - IVPB 40 mcg/kg/min TITR ELISSA 32.659 mls/hr Administration Protocol 5 MCG/KG/MIN Heparin Sodium (Porcine) 50, 500 mls @ 10 mls/hr 04/30/19 10:45 05/06/19 17: 03 000 unit/ Sodium Chloride IV 1,500 unit/hr TITR ELISSA 15 mls/hr Administration Protocol 1,000 UNIT/HR Norepinephrine Bitartrate 8, 500 mls @ 18.75 mls/hr 04/30/19 14:00 05/06/19 14:25 000 mcg/ Dextrose/Sodium IV Not Given Chloride TITR ELISSA Protocol 5 MCG/MIN Piperacillin Sod/Tazobactam 50 mls @ 100 mls/hr 05/01/19 18:00 05/07/19 17:35 Sod 3.375 gm/ Dextrose IVPB 100 mls/hr Q8H-IV ELISSA Administration Protocol Fentanyl 500 mcg/ Dextrose 100 mls @ 10 mls/hr 05/01/19 12:45 05/07/19 17:43 IVPB 100 mcg/hr TITR ELISSA 20 mls/hr Administration Protocol 50 MCG/HR Insulin Human Regular 100 100 mls @ 14.34 mls/hr 05/02/19 12:00 05/07/19 06: 13 units/ Sodium Chloride IVPB 0.02 units/kg/hr TITR ELISSA 3.8 mls/hr Titration Protocol 0.1 UNITS/KG/HR Furosemide 100 mg/ Sodium 100 mls @ 5 mls/hr 05/06/19 09:45 05/07/19 10:08 Chloride IVPB 5 mg/hr ASDIR ELISSA 5 mls/hr Administration Protocol 5 MG/HR Methylprednisolone Sodium Succinate 40 mg 05/02/19 14:05 05/07/19 17:41 Solu-Medrol - IVPUSH 40 mg Q8H-IV ELISSA Administration Metoprolol Tartrate 5 mg 04/30/19 08:57 05/05/19 06:38 Lopressor Injection - IVPUSH 5 mg Q4H PRN Administration TACHYCARDIA Metoprolol Tartrate 25 mg 05/02/19 13:45 05/07/19 10:08 Lopressor - PO 25 mg BID ELISSA Administration Pantoprazole Sodium 40 mg 05/01/19 10:00 05/07/19 10:08 Protonix Iv IVPUSH 40 mg DAILY ELISSA Administration Home Medications Medication Instructions Recorded Amiodarone HCl 200 mg PO DAILY 04/30/19 Apixaban [Eliquis] 5 mg PO BID 04/30/19 Diltiazem Cd [Cardizem Cd -] 300 mg PO DAILY 04/30/19 Furosemide 40 mg PO BID 04/30/19 Glipizide 10 mg PO DAILY 04/30/19 Lisinopril 10 mg PO DAILY 04/30/19 Metformin HCl [Glucophage] 1,000 mg PO BID 04/30/19 Sitagliptin Phosphate [Januvia] 100 mg PO DAILY 04/30/19 ASSESSMENT AND PLAN: 53 year old male with Obesity, DM 2, Sarcoidosis, Hx systolic CHF (EF 45-50%, now EF normal), EMMY (non-adherent with CPAP), and Atrial Flutter presented with sudden onset of shortness of breath, requiring intubation and mechanical ventilation. 1. Acute Hypoxic and Hypercapneic Respiratory Failure secondary to Acute Diastolic CHF +/- PNA Intubated/Mechanically ventilated. On Propofol and Fentanyl sedation. Difficult to wean off Vent - likely sec to underlying OHS. IV Lasix drip diuresis ongoing. 12lb weight reduction so far. Continue Zosyn/Vanco as per ID Attempt to wean down pressure support and O2 requirements. Bronchodilator Nebs, Steroids. Rest as per [employer] - recommendation for transfer to tertiary care center for prone ventilation - family requests [facility], awaiting bed. 2. Cardiogenic Shock sec to Acute Diastolic CHF vs Septic Shock, etiology unclear. Weaned off Levophed and Vasopressin Blood Cx - Staph epi, likely contaminant. Echo - no vegetations. Repeat Blood Cx neg x 2. Continue Zosyn/Vanco as per ID for possible PNA Cardiology following - for out-patient Cardiac MRI as out-patient to asses degree of sarcoid involvement. BP still borderline. On BB. Diltiazem and Lisinopril held. 3. Atrial flutter with RVR - on Lopressor for rate control. Diltiazem and Eliquis held. Heparin drip for AC. Normally on Amiodarone - further management as per Cardio. 4. RYNE with Hyperkalemia - likely secondary to Cardiorenal phenomenon, improving with Lasix diuresis Nephrology following. 5. DM 2 - Maintained on Insulin drip. Normally on Glipizide, Metformin and Januvia at home. DVT Px - Heparin drip ongoing. GI Px - PPI
--- NOTE | 2019-05-07 18:38 | PN ---
Physical Exam: SUBJECTIVE: Patient seen and examined in the morning. No acute events overnight , patient still ventilated- PEEP brought down to 10. Patient is still sedated. OBJECTIVE: Vital Signs Period Temp Pulse Resp BP Sys/[place] Pulse Ox Last 24 Hr 97.8 F-98.3 F 72-122 36-36 95-158/56-99 98-100 GENERAL: The patient is sedated and intubated. HEAD: Normal with no signs of trauma. EYES: Pinpoint pupils b/l NECK: Trachea midline, full range of motion, supple. LUNGS: breath sounds equal, no wheezes HEART: irregular rate and rhythm no murmurs, rubs, gallops. ABDOMEN: distended, normoactive bowel sounds. EXTREMITIES: 2+ pulses, warm, well-perfused, no edema. NEUROLOGICAL: Cranial nerves II through XII grossly intact. Normal speech, gait not observed. PSYCH: Normal mood, normal affect. SKIN: Warm, dry Laboratory Results - last 24 hr 05/06/19 05/06/19 05/06/19 18:49 20:02 21:01 WBC RBC Hgb Hct MCV MCH MCHC RDW Plt Count MPV Absolute Neuts (auto) Neutrophils % Neutrophils % (Manual) Band Neutrophils % Lymphocytes % Lymphocytes % (Manual) Monocytes % Monocytes % (Manual) Eosinophils % Eosinophils % (Manual) Basophils % Basophils % (Manual) Myelocytes % (Man) Promyelocytes % (Man) Blast Cells % (Manual) Nucleated RBC % Metamyelocytes Hypochromia Platelet Estimate Platelet Comment Polychromasia Poikilocytosis Anisocytosis Microcytosis Macrocytosis Spherocytes Target Cells Tear Drop Cells Ovalocytes Stomatocytes PTT (Actin FS) Sodium Potassium Chloride Carbon Dioxide Anion Gap BUN Creatinine Est GFR (CKD-EPI)AfAm Est GFR (CKD-EPI)NonAf POC Glucometer 151 144 151 Random Glucose Calcium Phosphorus Magnesium Total Bilirubin AST ALT Alkaline Phosphatase Total Protein Albumin Random Vancomycin 05/06/19 05/06/19 05/07/19 22:05 23:35 00:20 WBC RBC Hgb Hct MCV MCH MCHC RDW Plt Count MPV Absolute Neuts (auto) Neutrophils % Neutrophils % (Manual) Band Neutrophils % Lymphocytes % Lymphocytes % (Manual) Monocytes % Monocytes % (Manual) Eosinophils % Eosinophils % (Manual) Basophils % Basophils % (Manual) Myelocytes % (Man) Promyelocytes % (Man) Blast Cells % (Manual) Nucleated RBC % Metamyelocytes Hypochromia Platelet Estimate Platelet Comment Polychromasia Poikilocytosis Anisocytosis Microcytosis Macrocytosis Spherocytes Target Cells Tear Drop Cells Ovalocytes Stomatocytes PTT (Actin FS) Sodium 142 Potassium 4.2 Chloride 102 Carbon Dioxide 35 H Anion Gap 6 L BUN 69.2 H Creatinine 1.8 H Est GFR (CKD-EPI)AfAm 49.40 Est GFR (CKD-EPI)NonAf 42.63 POC Glucometer 218 177 Random Glucose 183 H Calcium 9.3 Phosphorus Magnesium Total Bilirubin AST ALT Alkaline Phosphatase Total Protein Albumin Random Vancomycin 05/07/19 05/07/19 05/07/19 00:21 01:09 02:24 WBC RBC Hgb Hct MCV MCH MCHC RDW Plt Count MPV Absolute Neuts (auto) Neutrophils % Neutrophils % (Manual) Band Neutrophils % Lymphocytes % Lymphocytes % (Manual) Monocytes % Monocytes % (Manual) Eosinophils % Eosinophils % (Manual) Basophils % Basophils % (Manual) Myelocytes % (Man) Promyelocytes % (Man) Blast Cells % (Manual) Nucleated RBC % Metamyelocytes Hypochromia Platelet Estimate Platelet Comment Polychromasia Poikilocytosis Anisocytosis Microcytosis Macrocytosis Spherocytes Target Cells Tear Drop Cells Ovalocytes Stomatocytes PTT (Actin FS) Sodium Potassium Chloride Carbon Dioxide Anion Gap BUN Creatinine Est GFR (CKD-EPI)AfAm Est GFR (CKD-EPI)NonAf POC Glucometer 181 209 192 Random Glucose Calcium Phosphorus Magnesium Total Bilirubin AST ALT Alkaline Phosphatase Total Protein Albumin Random Vancomycin 05/07/19 05/07/19 05/07/19 03:02 04:11 05:06 WBC RBC Hgb Hct MCV MCH MCHC RDW Plt Count MPV Absolute Neuts (auto) Neutrophils % Neutrophils % (Manual) Band Neutrophils % Lymphocytes % Lymphocytes % (Manual) Monocytes % Monocytes % (Manual) Eosinophils % Eosinophils % (Manual) Basophils % Basophils % (Manual) Myelocytes % (Man) Promyelocytes % (Man) Blast Cells % (Manual) Nucleated RBC % Metamyelocytes Hypochromia Platelet Estimate Platelet Comment Polychromasia Poikilocytosis Anisocytosis Microcytosis Macrocytosis Spherocytes Target Cells Tear Drop Cells Ovalocytes Stomatocytes PTT (Actin FS) Sodium Potassium Chloride Carbon Dioxide Anion Gap BUN Creatinine Est GFR (CKD-EPI)AfAm Est GFR (CKD-EPI)NonAf POC Glucometer 183 156 140 Random Glucose Calcium Phosphorus Magnesium Total Bilirubin AST ALT Alkaline Phosphatase Total Protein Albumin Random Vancomycin 05/07/19 05/07/19 05/07/19 05:15 05:15 05:15 WBC 8.7 RBC 4.40 Hgb 10.5 L Hct 34.4 L MCV 78.3 L MCH 23.9 L MCHC 30.5 L RDW 19.3 H Plt Count 269 D MPV 8.2 Absolute Neuts (auto) 8.0 Neutrophils % 92.0 H Neutrophils % (Manual) 91.8 H Band Neutrophils % 1.0 Lymphocytes % 1.7 L Lymphocytes % (Manual) 2.1 L D Monocytes % 6.0 Monocytes % (Manual) 4 D Eosinophils % 0.0 Eosinophils % (Manual) 0.0 Basophils % 0.3 Basophils % (Manual) 0.0 Myelocytes % (Man) 0 Promyelocytes % (Man) 0 Blast Cells % (Manual) 1 H D Nucleated RBC % 0 Metamyelocytes 0 Hypochromia 0 Platelet Estimate Normal Platelet Comment Present Polychromasia 1+ Poikilocytosis 1+ Anisocytosis 1+ Microcytosis 1+ Macrocytosis 0 Spherocytes 1+ Target Cells 1+ Tear Drop Cells 1+ Ovalocytes 1+ Stomatocytes 1+ PTT (Actin FS) 70.7 H Sodium Potassium Chloride Carbon Dioxide Anion Gap BUN Creatinine Est GFR (CKD-EPI)AfAm Est GFR (CKD-EPI)NonAf POC Glucometer Random Glucose Calcium Phosphorus Magnesium Total Bilirubin AST ALT Alkaline Phosphatase Total Protein Albumin Random Vancomycin 10.6 L 05/07/19 05/07/19 05/07/19 06:00 06:02 07:02 WBC RBC Hgb Hct MCV MCH MCHC RDW Plt Count MPV Absolute Neuts (auto) Neutrophils % Neutrophils % (Manual) Band Neutrophils % Lymphocytes % Lymphocytes % (Manual) Monocytes % Monocytes % (Manual) Eosinophils % Eosinophils % (Manual) Basophils % Basophils % (Manual) Myelocytes % (Man) Promyelocytes % (Man) Blast Cells % (Manual) Nucleated RBC % Metamyelocytes Hypochromia Platelet Estimate Platelet Comment Polychromasia Poikilocytosis Anisocytosis Microcytosis Macrocytosis Spherocytes Target Cells Tear Drop Cells Ovalocytes Stomatocytes PTT (Actin FS) Sodium 145 Potassium 3.8 Chloride 103 Carbon Dioxide 36 H Anion Gap 6 L BUN 67.3 H Creatinine 1.7 H Est GFR (CKD-EPI)AfAm 52.94 Est GFR (CKD-EPI)NonAf 45.68 POC Glucometer 136 155 Random Glucose 127 H Calcium 9.5 Phosphorus 4.5 Magnesium 2.4 Total Bilirubin 0.6 AST 45 H ALT 62 H Alkaline Phosphatase 88 Total Protein 6.2 L Albumin 2.7 L Random Vancomycin 05/07/19 05/07/19 05/07/19 08:50 10:24 12:37 WBC RBC Hgb Hct MCV MCH MCHC RDW Plt Count MPV Absolute Neuts (auto) Neutrophils % Neutrophils % (Manual) Band Neutrophils % Lymphocytes % Lymphocytes % (Manual) Monocytes % Monocytes % (Manual) Eosinophils % Eosinophils % (Manual) Basophils % Basophils % (Manual) Myelocytes % (Man) Promyelocytes % (Man) Blast Cells % (Manual) Nucleated RBC % Metamyelocytes Hypochromia Platelet Estimate Platelet Comment Polychromasia Poikilocytosis Anisocytosis Microcytosis Macrocytosis Spherocytes Target Cells Tear Drop Cells Ovalocytes Stomatocytes PTT (Actin FS) Sodium Potassium Chloride Carbon Dioxide Anion Gap BUN Creatinine Est GFR (CKD-EPI)AfAm Est GFR (CKD-EPI)NonAf POC Glucometer 156 161 155 Random Glucose Calcium Phosphorus Magnesium Total Bilirubin AST ALT Alkaline Phosphatase Total Protein Albumin Random Vancomycin 05/07/19 05/07/19 14:54 17:31 WBC RBC Hgb Hct MCV MCH MCHC RDW Plt Count MPV Absolute Neuts (auto) Neutrophils % Neutrophils % (Manual) Band Neutrophils % Lymphocytes % Lymphocytes % (Manual) Monocytes % Monocytes % (Manual) Eosinophils % Eosinophils % (Manual) Basophils % Basophils % (Manual) Myelocytes % (Man) Promyelocytes % (Man) Blast Cells % (Manual) Nucleated RBC % Metamyelocytes Hypochromia Platelet Estimate Platelet Comment Polychromasia Poikilocytosis Anisocytosis Microcytosis Macrocytosis Spherocytes Target Cells Tear Drop Cells Ovalocytes Stomatocytes PTT (Actin FS) Sodium Potassium Chloride Carbon Dioxide Anion Gap BUN Creatinine Est GFR (CKD-EPI)AfAm Est GFR (CKD-EPI)NonAf POC Glucometer 169 148 Random Glucose Calcium Phosphorus Magnesium Total Bilirubin AST ALT Alkaline Phosphatase Total Protein Albumin Random Vancomycin Active Medications Generic Name Dose Route Start Last Admin Trade Name Freq PRN Reason Stop Dose Admin Albuterol/Ipratropium 1 amp 04/30/19 16:00 05/07/19 16:30 Duoneb - NEB 1 amp RQID ELISSA Administration Chlorhexidine Gluconate 1 applic 04/30/19 22:00 05/06/19 21:10 Hibiclens For Decolonization - TP 1 applic HS ELISSA Administration Heparin Sodium (Porcine) 1,000 unit 04/30/19 10:40 05/03/19 09:17 Heparin - IVPUSH 1,000 unit PRN PRN Administration Heparin Heparin Sodium (Porcine) 5,000 unit 04/30/19 10:40 05/02/19 10:07 Heparin - IVPUSH 5,000 unit PRN PRN Administration Heparin Vasopressin 50 units/ Sodium 100 mls @ 4 mls/hr 04/30/19 09:30 05/07/19 10:05 Chloride IVPB Not Given ASDIR ELISSA Protocol 2 UNITS/HR Propofol 1,000,000 mcg in 100 mls @ 4.082 mls/hr 04/30/19 10:15 05/07/19 12: 10 Diprivan - IVPB 40 mcg/kg/min TITR ELISSA 32.659 mls/hr Administration Protocol 5 MCG/KG/MIN Heparin Sodium (Porcine) 50, 500 mls @ 10 mls/hr 04/30/19 10:45 05/06/19 17: 03 000 unit/ Sodium Chloride IV 1,500 unit/hr TITR ELISSA 15 mls/hr Administration Protocol 1,000 UNIT/HR Norepinephrine Bitartrate 8, 500 mls @ 18.75 mls/hr 04/30/19 14:00 05/06/19 14:25 000 mcg/ Dextrose/Sodium IV Not Given Chloride TITR ELISSA Protocol 5 MCG/MIN Piperacillin Sod/Tazobactam 50 mls @ 100 mls/hr 05/01/19 18:00 05/07/19 17:35 Sod 3.375 gm/ Dextrose IVPB 100 mls/hr Q8H-IV ELISSA Administration Protocol Fentanyl 500 mcg/ Dextrose 100 mls @ 10 mls/hr 05/01/19 12:45 05/07/19 17:43 IVPB 100 mcg/hr TITR ELISSA 20 mls/hr Administration Protocol 50 MCG/HR Insulin Human Regular 100 100 mls @ 14.34 mls/hr 05/02/19 12:00 05/07/19 06: 13 units/ Sodium Chloride IVPB 0.02 units/kg/hr TITR ELISSA 3.8 mls/hr Titration Protocol 0.1 UNITS/KG/HR Furosemide 100 mg/ Sodium 100 mls @ 5 mls/hr 05/06/19 09:45 05/07/19 10:08 Chloride IVPB 5 mg/hr ASDIR ELISSA 5 mls/hr Administration Protocol 5 MG/HR Methylprednisolone Sodium Succinate 40 mg 05/02/19 14:05 05/07/19 17:41 Solu-Medrol - IVPUSH 40 mg Q8H-IV ELISSA Administration Metoprolol Tartrate 5 mg 04/30/19 08:57 05/05/19 06:38 Lopressor Injection - IVPUSH 5 mg Q4H PRN Administration TACHYCARDIA Metoprolol Tartrate 25 mg 05/02/19 13:45 05/07/19 10:08 Lopressor - PO 25 mg BID ELISSA Administration Pantoprazole Sodium 40 mg 05/01/19 10:00 05/07/19 10:08 Protonix Iv IVPUSH 40 mg DAILY ELISSA Administration ASSESSMENT/PLAN: 53 M with PMH of DM2, HFpEF (last EF 45-50%), EMMY, Aflutter presented with sudden onset Shortness of breath. In ICU for management of ARDS. Neuro -Sedated on propofol and fentanyl drip -Sedation break earlier in the day, was able to open eyes, not follow commands and became tachycardic up to 150s. Was restarted on sedation shortly after -no longer paralyzed on vecoronium -Sedation holiday tomorrow. Cardiovascular -Hx of Afluter and HFpEF -A-line in place. -Levoped and vasopressin ordered, but titrated down and attempting to keep off if possible -HR still tachy, and episodes of aflutter -Metoprolol 25 mg BID and Lopressor 5 mg Q4H PRN -Lasix drip continued -Heparin drip continued -Rule out sarcoidosis as outpatient with cardiac PET or MRI with entry manager at [place]. -Cardiology consulted, appreciate recs Pulmonary -Acute Hypoxic and Hypercapneic Respiratory Failure, presenting with ARDS -Remains intubated -Vent settings: Vt: 325 PEEP 10 Fio2: 55% RR 36 -Permissive hypercapnea -Keeping sat > 90% -New atelectasis or infiltrate in the left lung -Duonebs QID, Albuterol PRN, solumedrol Q8H Renal -BUN/Creatinine 1.7 -Continue lasix drip -K stable -Nephrology consulted, appreciate recs GI -NG tube with tube feeds -Protonix 40 mg Daily -No acute issues, continue monitoring ID -Redosed vancomycin, zoysn continued -Blood cultures grew staph epidermdis before abx -Blood cultures post abx negative -ID consulted, appreciate recs Endo -Hx of DM -BGMs -Insulin drip Heme/Onc -H/H 10.5/34.4 -Continue to monitor F: No IVF E: Monitor K N: Tube feed promote DVT: Heparin Drip Lines: Central line left side: 04/30/19, [place] 04/30/19, [place] 05/01/19 Dispo: Pending txfer to ICU in [facility] Visit type - Emergency Visit Emergency Visit: Yes ED Registration Date: 04/30/19 Care time: The patient presented to the Emergency Department on the above date and was hospitalized for further evaluation of their emergent condition. - New Patient This patient is new to me today: No - Critical Care Critical Care patient: Yes Total Critical Care Time (in minutes): 45 Critical Care Statement: The care of this patient involved high complexity decision making to prevent further life threatening deterioration of the patient 's condition and/or to evaluate & treat vital organ system(s) failure or risk of failure. ATTENDING PHYSICIAN STATEMENT I saw and evaluated the patient. I reviewed the resident's note and discussed the case with the resident. I agree with the resident's findings and plan as documented. SUBJECTIVE: OBJECTIVE: ASSESSMENT AND PLAN:
[2019-05-07] MEDS: CHLORHEXIDINE GLUCONATE 4% CLEANSER FOR DECOLONIZATION TP SCH (21:44)
[2019-05-07] MEDS: DEXTROSE 5% IV SCH (21:44)
[2019-05-07] MEDS: NOREPINEPHRINE BITARTRATE IV SCH (21:44)
[2019-05-07] MEDS: NORMAL SALINE IV SCH (21:44)
[2019-05-07] MEDS: HEPARIN IV SCH (21:45)
[2019-05-07] MEDS: SODIUM CHLORIDE IV SCH (21:45)
[2019-05-08] MEDS: PROPOFOL 1,000,000 MCG/100 ML VIAL IVPB SCH ×4 (00:25→11:56)
[2019-05-08] MEDS: FUROSEMIDE INJECTION 100 MG in SODIUM CHLORIDE 90 ML IVPB SCH ×2 (02:20→11:57)
[2019-05-08] MEDS: PIPERACILLIN/TAZOB 3.375 GM 3.375 GM in DEXTROSE 5%-WATER - 50 ML IVPB SCH ×3 (02:39→17:18)
[2019-05-08] MEDS: methylPREDNISolone NA SUCC 40 MG/1 ML VIAL IVPUSH SCH ×3 (02:40→17:18)
[2019-05-08] MEDS: FENTANYL INJECTION 500 MCG in DEXTROSE 5%-WATER - 90 ML IVPB SCH ×2 (02:41→13:05)
[2019-05-08 07:20] LABS: BASO % 0.1 % (0-2.0); EOS % 0.1 % (0-4.5); HEMOGLOBIN 11.2 GM/dL (11.7-16.9); LYMPH % 1.9 % (8-40); MCH 24.2 pg (25.7-33.7); MCHC 31.1 g/dl (32.0-35.9); MEAN CELL VOLUME 77.8 fl (80-96); MEAN PLT VOLUME 8.6 fl (7.5-11.1); MONO % 6.7 % (3.8-10.2); NEUT % 91.2 % (42.8-82.8); PLATELET COUNT 285 K/MM3 (134-434); RBC 4.63 M/mm3 (4.00-5.60); RDW 19.3 % (11.9-15.9); WHITE BLOOD COUNT 10.5 K/mm3 (4.0-10.0)
[2019-05-08] MEDS ORDERED: fentaNYL CITRATE 250 MCG/5 ML VIAL ONE ×3 (07:28→18:50)
[2019-05-08] MEDS ORDERED: PIPERACILLIN/TAZOBACTAM 3.375 GM VIAL IVPB ONE ×3 (07:29→23:32)
[2019-05-08] MEDS ORDERED: DEXTROSE 5%-WATER - 50 ML IVPB ONE ×3 (07:29→23:32)
[2019-05-08 07:35] LABS: ALBUMIN 2.8 g/dl (3.4-5.0); BILIRUBIN,TOTAL 0.6 mg/dL (0.2-1); BLOOD UREA NITROGEN 68.7 mg/dL (7-18); CALCIUM 9.4 mg/dL (8.5-10.1); CREATININE 1.7 mg/dL (0.55-1.3); MAGNESIUM 2.4 mg/dL (1.8-2.4); PHOSPHOROUS 3.5 mg/dL (2.5-4.9); POTASSIUM 3.8 mmol/L (3.5-5.1); TOT PROT 6.4 g/dl (6.4-8.2)
[2019-05-08] MEDS: ALBUTEROL SO4 2.5/IPRATROPIUM 0.5 INH SOL 3 ML VIAL.NEB. NEB SCH ×4 (09:42→20:50)
[2019-05-08] MEDS: PANTOPRAZOLE SODIUM 40 MG VIAL IVPUSH SCH (10:01)
[2019-05-08] MEDS: METOPROLOL TARTRATE 25 MG TABLET (FP) PO SCH ×3 (10:04→21:10)
--- NOTE | 2019-05-08 10:15 | PN ---
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, Physician History of Present Illness: Remains intubated, sedated, on ventilator with AC Mode of vent, 50% FiO2 / PEEP 6 remains off vasopressin and Levophed gtt, aflutter rate-controlled, undergoing diuresis. Rapid aflutter occurs when attempting sedation wean. - Current Medication List Current Medications: Active Medications Albuterol/Ipratropium (Duoneb -) 1 amp NEB RQID ELISSA Last Admin: 05/08/19 09:42 Dose: 1 amp Chlorhexidine Gluconate (Hibiclens For Decolonization -) 1 applic TP HS ELISSA Last Admin: 05/07/19 21:44 Dose: 1 applic Heparin Sodium (Porcine) (Heparin -) 1,000 unit IVPUSH PRN PRN PRN Reason: Heparin Last Admin: 05/03/19 09:17 Dose: 1,000 unit Heparin Sodium (Porcine) (Heparin -) 5,000 unit IVPUSH PRN PRN PRN Reason: Heparin Last Admin: 05/02/19 10:07 Dose: 5,000 unit Vasopressin 50 units/ Sodium (Chloride) 100 mls @ 4 mls/hr IVPB ASDIR ELISSA; Protocol Last Admin: 05/07/19 10:05 Dose: Not Given Propofol (Diprivan -) 1,000,000 mcg in 100 mls @ 4.082 mls/hr IVPB TITR ELISSA; Protocol Last Admin: 05/08/19 06:45 Dose: 40 mcg/kg/min, 32.659 mls/hr Heparin Sodium (Porcine) 50, (000 unit/ Sodium Chloride) 500 mls @ 10 mls/hr IV TITR ELISSA; Protocol Last Admin: 05/07/19 21:45 Dose: 1,500 unit/hr, 15 mls/hr Norepinephrine Bitartrate 8, 000 mcg/ Dextrose/Sodium Chloride 500 mls @ 18.75 mls/hr IV TITR ELISSA; Protocol Last Admin: 05/07/19 21:44 Dose: Not Given Piperacillin Sod/Tazobactam (Sod 3.375 gm/ Dextrose) 50 mls @ 100 mls/hr IVPB Q8H-IV ELISSA; Protocol Last Admin: 05/08/19 10:00 Dose: 100 mls/hr Fentanyl 500 mcg/ Dextrose 100 mls @ 10 mls/hr IVPB TITR ELISSA; Protocol Last Admin: 01/30/20 02:41 Dose: 100 mcg/hr, 20 mls/hr Insulin Human Regular 100 (units/ Sodium Chloride) 100 mls @ 14.34 mls/hr IVPB TITR [facility]; Protocol Last Titration: 05/08/19 06:27 Dose: 0.03 units/kg/hr, 5.3 mls/hr Furosemide 100 mg/ Sodium (Chloride) 100 mls @ 5 mls/hr IVPB ASDIR [facility]; Protocol Last Admin: 05/08/19 02:20 Dose: 5 mg/hr, 5 mls/hr Methylprednisolone Sodium Succinate (Solu-Medrol -) 40 mg IVPUSH Q8H-IV [facility] Last Admin: 05/08/19 10:00 Dose: 40 mg Metoprolol Tartrate (Lopressor Injection -) 5 mg IVPUSH Q4H PRN PRN Reason: TACHYCARDIA Last Admin: 05/05/19 06:38 Dose: 5 mg Metoprolol Tartrate (Lopressor -) 25 mg PO BID [facility] Last Admin: 05/08/19 10:04 Dose: 25 mg Pantoprazole Sodium (Protonix Iv) 40 mg IVPUSH DAILY [facility] Last Admin: 05/08/19 10:01 Dose: 40 mg - Objective Vital Signs: Vital Signs Temperature 98.9 F 05/08/19 06:00 Pulse Rate 117 H 05/08/19 09:10 Respiratory Rate 36 H 05/08/19 09:10 Blood Pressure 114/65 05/08/19 08:00 O2 Sat by Pulse Oximetry (%) 95 05/08/19 09:10 Constitutional: Yes: No Distress, Calm Neck: Yes: Supple Cardiovascular: Yes: Pulse Irregular Respiratory: Yes: Intubated, Mechanically Ventilated Gastrointestinal: Yes: Normal Bowel Sounds, Soft Genitourinary: Yes: [place] Present Edema: No Labs: CBC, BMP 05/08/19 06:05 05/08/19 06:05 INR, PTT INR 1.09 (0.83-1.09) 05/05/19 05:30 - ....Imaging Chest X-ray: Report Reviewed (Increased base changes) EKG: Report Reviewed (Tele: Rate-controlled aflutter) Problem List - Problems (1) Pneumonia Code(s): J18.9 - PNEUMONIA, UNSPECIFIED ORGANISM Qualifiers: Pneumonia type: due to unspecified organism (2) Acute hypercapnic respiratory failure due to obstructive sleep apnea Code(s): J96.02 - ACUTE RESPIRATORY FAILURE WITH HYPERCAPNIA; G47.33 - OBSTRUCTIVE SLEEP APNEA (ADULT) (PEDIATRIC) (3) Acute decompensated heart failure Code(s): I50.9 - HEART FAILURE, UNSPECIFIED (4) Acute renal failure Code(s): N17.9 - ACUTE KIDNEY FAILURE, UNSPECIFIED Qualifiers: Acute renal failure type: unspecified Qualified Code(s): N17.9 - Acute kidney failure, unspecified (5) Sarcoidosis of other sites Code(s): D86.89 - SARCOIDOSIS OF OTHER SITES (6) Type 2 diabetes mellitus Code(s): E11.9 - TYPE 2 DIABETES MELLITUS WITHOUT COMPLICATIONS Qualifiers: Diabetes mellitus exterminator helper termite insulin use: without exterminator helper termite use Diabetes mellitus complication detail: with chronic kidney disease Chronic kidney disease stage: stage 2 (mild) (7) Atrial fibrillation and flutter Code(s): I48.91 - UNSPECIFIED ATRIAL FIBRILLATION; I48.92 - UNSPECIFIED ATRIAL FLUTTER Assessment/Plan 05/01/2019 Normal LV and RV size and fxn, tr TR 03/14/2019 Normal LV size and fxn, no thrombus ADEEL, mild-mod dilated and HK RV, tr MR, mild-mod TR, tr UT, trace pericardial effusion 1. Acute hypoxic and hypercapneic respiratory failure on mechanical ventilation 2. Pneumonia, post septic shock, Gram Positive Bacteremia, r/o ARDS 3. Sarcoidosis confirmed by skin biopsy, r/o cardiac involvement 4. OSAS nonadherent to cpap 5. Paroxysmal Aflutter/Afib with RVR 6. Acute on chronic diastolic heart failure 7. Acute on CKD with hyperkalemia resolving 8. Type 2 DM 9. Anemia P:1. Empiric abx f/u C&S, IV steroid taper with GI protection, BD, enteral feeds 2. Remains off vasopressin and Levophed gtt for MAP>65 mmHg 3. Vent management per ABG, ARDS protocol and off paralysis 4. Rate-control with oral and IV Lopressor with uptitration as hemodynamics tolerate, change heparin gtt to eliquis 5 bid 5. Continue Lasix gtt @ 5/hr with monitor diuretic response, renal fxn and electrolytes 6. Resume lisinopril 10 qd once renal function and hyperkalemia stabilizes 7. He f/u with Dr. Genaro Davila (cardiology at [place]), cardiac PET or MRI to exclude cardiac involvement in sarcoidosis as outpatient
[2019-05-08] MEDS ORDERED: EPINEPHrine 1:10,000 (P-F SYR) 1 MG/10 ML DISP.SYRIN ONE (11:24)
[2019-05-08] MEDS: HEPARIN IV SCH (11:53)
[2019-05-08] MEDS: SODIUM CHLORIDE IV SCH (11:53)
[2019-05-08] MEDS: VASOPRESSIN 50 UNITS in SODIUM CHLORIDE 97.5 ML IVPB SCH (11:57)
[2019-05-08 12:10] LABS: ANISOCYTOSIS 1+; MACROCYTOSIS 0; OVALOCYTE 1+; PLATELET ESTIMATE NORMAL; TARGET CELLS 1+; TEAR DROP CELLS 1+; TOXIC GRANULATION 2+
--- NOTE | 2019-05-08 12:33 | PN ---
Teaching Attending Note Name of Resident: Sravanthi Foreman ATTENDING PHYSICIAN STATEMENT I saw and evaluated the patient. I reviewed the resident's note and discussed the case with the resident. I agree with the resident's findings and plan as documented. SUBJECTIVE: Patient seen and examined in the ICU. Remains intubated and sedated. AC Mode of vent, 50% FiO2 and PEEP 8. Off pressors. Remains on Lasix drip. CXR: No change Intake & Output 05/05/19 05/06/19 05/07/19 05/08/19 23:59 23:59 23:59 23:59 Intake Total 2381 3236 3510 1508 Output Total 3700 3820 3500 3300 Balance -5319 -454 10 -1792 Weight 299 lb 14.4 oz 297 lb 3.2 oz 288 lb 11.2 oz Last Vital Signs Temp Pulse Resp BP Pulse Ox 98.5 F 115 H 36 H 105/64 95 05/08/19 10:00 05/08/19 10:00 05/08/19 10:05/08/19 10:00 05/08/19 09:10 Active Medications Albuterol/Ipratropium (Duoneb -) 1 amp NEB RQID [facility] Last Admin: 05/08/19 09:42 Dose: 1 amp Chlorhexidine Gluconate (Hibiclens For Decolonization -) 1 applic TP HS [facility] Last Admin: 05/07/19 21:44 Dose: 1 applic Furosemide (Lasix Injection -) 40 mg IVPUSH BID@0600,1400 ELISSA Heparin Sodium (Porcine) (Heparin -) 1,000 unit IVPUSH PRN PRN PRN Reason: Heparin Last Admin: 05/03/19 09:17 Dose: 1,000 unit Heparin Sodium (Porcine) (Heparin -) 5,000 unit IVPUSH PRN PRN PRN Reason: Heparin Last Admin: 05/02/19 10:07 Dose: 5,000 unit Vasopressin 50 units/ Sodium (Chloride) 100 mls @ 4 mls/hr IVPB ASDIR [facility]; Protocol Last Admin: 05/08/19 11:57 Dose: Not Given Propofol (Diprivan -) 1,000,000 mcg in 100 mls @ 4.082 mls/hr IVPB TITR ELISSA; Protocol Last Admin: 05/08/19 11:56 Dose: 40 mcg/kg/min, 32.659 mls/hr Heparin Sodium (Porcine) 50, (000 unit/ Sodium Chloride) 500 mls @ 10 mls/hr IV TITR ELISSA; Protocol Last Admin: 05/08/19 11:53 Dose: Not Given Norepinephrine Bitartrate 8, 000 mcg/ Dextrose/Sodium Chloride 500 mls @ 18.75 mls/hr IV TITR ELISSA; Protocol Last Admin: 05/07/19 21:44 Dose: Not Given Piperacillin Sod/Tazobactam (Sod 3.375 gm/ Dextrose) 50 mls @ 100 mls/hr IVPB Q8H-IV ELISSA; Protocol Last Admin: 05/08/19 10:00 Dose: 100 mls/hr Fentanyl 500 mcg/ Dextrose 100 mls @ 10 mls/hr IVPB TITR ELISSA; Protocol Last Admin: 05/08/19 02:41 Dose: 100 mcg/hr, 20 mls/hr Insulin Aspart (Novolog Vial Sliding Scale -) 1 vial SQ Q6H ELISSA; Protocol Methylprednisolone Sodium Succinate (Solu-Medrol -) 40 mg IVPUSH Q8H-IV ELISSA Last Admin: 05/08/19 10:00 Dose: 40 mg Metoprolol Tartrate (Lopressor Injection -) 5 mg IVPUSH Q4H PRN PRN Reason: TACHYCARDIA Last Admin: 05/05/19 06:38 Dose: 5 mg Metoprolol Tartrate (Lopressor -) 25 mg PO TID ELISSA Pantoprazole Sodium (Protonix Iv) 40 mg IVPUSH DAILY ELISSA Last Admin: 05/08/19 10:01 Dose: 40 mg Gen: intubated, sedated Heart: tachy, irreg, s1S2 Lung: Vented, bilateral rhonchi Abd: soft, nontender Ext:+1 edema improved [employer]AME [employer]TER: fully sedated Laboratory Results - last 24 hr 05/07/19 05/07/19 05/07/19 12:37 14:54 17:31 WBC RBC Hgb Hct MCV MCH MCHC RDW Plt Count MPV Absolute Neuts (auto) Neutrophils % Neutrophils % (Manual) Band Neutrophils % Lymphocytes % Lymphocytes % (Manual) Monocytes % Monocytes % (Manual) Eosinophils % Eosinophils % (Manual) Basophils % Basophils % (Manual) Myelocytes % (Man) Promyelocytes % (Man) Blast Cells % (Manual) Nucleated RBC % Metamyelocytes Hypochromia Toxic Granulation Platelet Estimate Platelet Comment Polychromasia Poikilocytosis Anisocytosis Microcytosis Macrocytosis Spherocytes Target Cells Tear Drop Cells Ovalocytes Acanthocytes (Spur) PTT (Actin FS) Sodium Potassium Chloride Carbon Dioxide Anion Gap BUN Creatinine Est GFR (CKD-EPI)AfAm Est GFR (CKD-EPI)NonAf POC Glucometer 155 169 148 Random Glucose Calcium Phosphorus Magnesium Total Bilirubin AST ALT Alkaline Phosphatase Total Protein Albumin Random Vancomycin 05/07/19 05/07/19 05/07/19 19:32 20:32 22:21 WBC RBC Hgb Hct MCV MCH MCHC RDW Plt Count MPV Absolute Neuts (auto) Neutrophils % Neutrophils % (Manual) Band Neutrophils % Lymphocytes % Lymphocytes % (Manual) Monocytes % Monocytes % (Manual) Eosinophils % Eosinophils % (Manual) Basophils % Basophils % (Manual) Myelocytes % (Man) Promyelocytes % (Man) Blast Cells % (Manual) Nucleated RBC % Metamyelocytes Hypochromia Toxic Granulation Platelet Estimate Platelet Comment Polychromasia Poikilocytosis Anisocytosis Microcytosis Macrocytosis Spherocytes Target Cells Tear Drop Cells Ovalocytes Acanthocytes (Spur) PTT (Actin FS) Sodium Potassium Chloride Carbon Dioxide Anion Gap BUN Creatinine Est GFR (CKD-EPI)AfAm Est GFR (CKD-EPI)NonAf POC Glucometer 134 135 185 Random Glucose Calcium Phosphorus Magnesium Total Bilirubin AST ALT Alkaline Phosphatase Total Protein Albumin Random Vancomycin 05/08/19 05/08/19 05/08/19 00:17 02:27 04:38 WBC RBC Hgb Hct MCV MCH MCHC RDW Plt Count MPV Absolute Neuts (auto) Neutrophils % Neutrophils % (Manual) Band Neutrophils % Lymphocytes % Lymphocytes % (Manual) Monocytes % Monocytes % (Manual) Eosinophils % Eosinophils % (Manual) Basophils % Basophils % (Manual) Myelocytes % (Man) Promyelocytes % (Man) Blast Cells % (Manual) Nucleated RBC % Metamyelocytes Hypochromia Toxic Granulation Platelet Estimate Platelet Comment Polychromasia Poikilocytosis Anisocytosis Microcytosis Macrocytosis Spherocytes Target Cells Tear Drop Cells Ovalocytes Acanthocytes (Spur) PTT (Actin FS) Sodium Potassium Chloride Carbon Dioxide Anion Gap BUN Creatinine Est GFR (CKD-EPI)AfAm Est GFR (CKD-EPI)NonAf POC Glucometer 162 174 205 Random Glucose Calcium Phosphorus Magnesium Total Bilirubin AST ALT Alkaline Phosphatase Total Protein Albumin Random Vancomycin 05/08/19 05/08/19 05/08/19 06:05 06:05 06:05 WBC 10.5 H RBC 4.63 Hgb 11.2 L Hct 36.0 MCV 77.8 L MCH 24.2 L MCHC 31.1 L RDW 19.3 H Plt Count 285 MPV 8.6 Absolute Neuts (auto) 9.6 H Neutrophils % 91.2 H Neutrophils % (Manual) 96.9 H Band Neutrophils % 0.0 Lymphocytes % 1.9 L Lymphocytes % (Manual) 0.0 L Monocytes % 6.7 Monocytes % (Manual) 2 L Eosinophils % 0.1 D Eosinophils % (Manual) 0.0 Basophils % 0.1 Basophils % (Manual) 0.0 Myelocytes % (Man) 0 Promyelocytes % (Man) 0 Blast Cells % (Manual) 0 D Nucleated RBC % 1 H Metamyelocytes 0 Hypochromia 0 Toxic Granulation 2+ Platelet Estimate Normal Platelet Comment Present Polychromasia 0 Poikilocytosis 1+ Anisocytosis 1+ Microcytosis 1+ Macrocytosis 0 Spherocytes 1+ Target Cells 1+ Tear Drop Cells 1+ Ovalocytes 1+ Acanthocytes (Spur) 1+ PTT (Actin FS) 62.1 H Sodium Potassium Chloride Carbon Dioxide Anion Gap BUN Creatinine Est GFR (CKD-EPI)AfAm Est GFR (CKD-EPI)NonAf POC Glucometer Random Glucose Calcium Phosphorus Magnesium Total Bilirubin AST ALT Alkaline Phosphatase Total Protein Albumin Random Vancomycin 12.3 L 05/08/19 05/08/19 05/08/19 06:05 06:20 08:26 WBC RBC Hgb Hct MCV MCH MCHC RDW Plt Count MPV Absolute Neuts (auto) Neutrophils % Neutrophils % (Manual) Band Neutrophils % Lymphocytes % Lymphocytes % (Manual) Monocytes % Monocytes % (Manual) Eosinophils % Eosinophils % (Manual) Basophils % Basophils % (Manual) Myelocytes % (Man) Promyelocytes % (Man) Blast Cells % (Manual) Nucleated RBC % Metamyelocytes Hypochromia Toxic Granulation Platelet Estimate Platelet Comment Polychromasia Poikilocytosis Anisocytosis Microcytosis Macrocytosis Spherocytes Target Cells Tear Drop Cells Ovalocytes Acanthocytes (Spur) PTT (Actin FS) Sodium 145 Potassium 3.8 Chloride 101 Carbon Dioxide 36 H Anion Gap 8 BUN 68.7 H Creatinine 1.7 H Est GFR (CKD-EPI)AfAm 52.94 Est GFR (CKD-EPI)NonAf 45.68 POC Glucometer 210 211 Random Glucose 208 H Calcium 9.4 Phosphorus 3.5 Magnesium 2.4 Total Bilirubin 0.6 AST 32 ALT 55 Alkaline Phosphatase 92 Total Protein 6.4 Albumin 2.8 L Random Vancomycin 05/08/19 11:47 WBC RBC Hgb Hct MCV MCH MCHC RDW Plt Count MPV Absolute Neuts (auto) Neutrophils % Neutrophils % (Manual) Band Neutrophils % Lymphocytes % Lymphocytes % (Manual) Monocytes % Monocytes % (Manual) Eosinophils % Eosinophils % (Manual) Basophils % Basophils % (Manual) Myelocytes % (Man) Promyelocytes % (Man) Blast Cells % (Manual) Nucleated RBC % Metamyelocytes Hypochromia Toxic Granulation Platelet Estimate Platelet Comment Polychromasia Poikilocytosis Anisocytosis Microcytosis Macrocytosis Spherocytes Target Cells Tear Drop Cells Ovalocytes Acanthocytes (Spur) PTT (Actin FS) Sodium Potassium Chloride Carbon Dioxide Anion Gap BUN Creatinine Est GFR (CKD-EPI)AfAm Est GFR (CKD-EPI)NonAf POC Glucometer 184 Random Glucose Calcium Phosphorus Magnesium Total Bilirubin AST ALT Alkaline Phosphatase Total Protein Albumin Random Vancomycin ASSESSMENT AND PLAN: Acute Hypoxic and Hypercapneic Respiratory Failure due to ARDS Pneumonia Gram Positive Bacteremia Septic Shock Volume Overload Lactic Acidosis Hyperkalemia Acute Kidney Injury Atrial Flutter with RVR HTN DM Anemia - Wean FiO2/PEEP as tolerated / Lung protective ventilation - ABX per ID - keep Pplat <30 - Sedation vacation to assess mental status - Monitor urine output, creatinine - Monitor lytes - Medrol - Inhaled bronchodilators - Rate control - Continue anticoagulation - DVT/GI prophylaxis - continue ICU monitoring - prognosis guarded - Wean trials Dr Maya Critical care time spent in reviewing chart, evaluating patient and formulating plan - 36 minutes.
[2019-05-08] MEDS: INSULIN SLIDING SCALE (NOVOLOG) 1 VIAL SQ SCH ×2 (13:04→17:52)
[2019-05-08] MEDS: METOPROLOL TARTRATE 5 MG/5 ML VIAL IVPUSH PRN (13:05)
[2019-05-08] MEDS: FUROSEMIDE 40 MG/4 ML INJECTABLE VIAL IVPUSH SCH (13:08)
--- NOTE | 2019-05-08 15:05 | PN ---
Physical Exam: SUBJECTIVE: Patient seen and examined. Still intubated, no acute events overnight. OBJECTIVE: Vital Signs Period Temp Pulse Resp BP Sys/[place] Pulse Ox Last 24 Hr 98.2 F-99.3 F 51-141 36-36 98-125/59-84 92-97 GENERAL: intubated, sedated on Fentanyl and Propofol HEAD: Normal with no signs of trauma. EYES: PERRL ENT: dry mucous membranes NECK: Trachea midline, supple, Left IJ in place LUNGS: Mechanically ventilated, clear to auscultation bilaterally HEART: tachycardic ABDOMEN: obese, soft, nontender, decreased bowel sounds EXTREMITIES: 2+ pulses, warm, well-perfused. 1+ non pitting edema bilateral lower extremities NEUROLOGICAL: poor gag reflex, normal muscle tone SKIN: Warm, dry, normal turgor Laboratory Results - last 24 hr 05/07/19 05/07/19 05/07/19 14:54 17:31 19:32 WBC RBC Hgb Hct MCV MCH MCHC RDW Plt Count MPV Absolute Neuts (auto) Neutrophils % Neutrophils % (Manual) Band Neutrophils % Lymphocytes % Lymphocytes % (Manual) Monocytes % Monocytes % (Manual) Eosinophils % Eosinophils % (Manual) Basophils % Basophils % (Manual) Myelocytes % (Man) Promyelocytes % (Man) Blast Cells % (Manual) Nucleated RBC % Metamyelocytes Hypochromia Toxic Granulation Platelet Estimate Platelet Comment Polychromasia Poikilocytosis Anisocytosis Microcytosis Macrocytosis Spherocytes Target Cells Tear Drop Cells Ovalocytes Acanthocytes (Spur) PTT (Actin FS) Sodium Potassium Chloride Carbon Dioxide Anion Gap BUN Creatinine Est GFR (CKD-EPI)AfAm Est GFR (CKD-EPI)NonAf POC Glucometer 169 148 134 Random Glucose Calcium Phosphorus Magnesium Total Bilirubin AST ALT Alkaline Phosphatase Total Protein Albumin Random Vancomycin 05/07/19 05/07/19 05/08/19 20:32 22:21 00:17 WBC RBC Hgb Hct MCV MCH MCHC RDW Plt Count MPV Absolute Neuts (auto) Neutrophils % Neutrophils % (Manual) Band Neutrophils % Lymphocytes % Lymphocytes % (Manual) Monocytes % Monocytes % (Manual) Eosinophils % Eosinophils % (Manual) Basophils % Basophils % (Manual) Myelocytes % (Man) Promyelocytes % (Man) Blast Cells % (Manual) Nucleated RBC % Metamyelocytes Hypochromia Toxic Granulation Platelet Estimate Platelet Comment Polychromasia Poikilocytosis Anisocytosis Microcytosis Macrocytosis Spherocytes Target Cells Tear Drop Cells Ovalocytes Acanthocytes (Spur) PTT (Actin FS) Sodium Potassium Chloride Carbon Dioxide Anion Gap BUN Creatinine Est GFR (CKD-EPI)AfAm Est GFR (CKD-EPI)NonAf POC Glucometer 135 185 162 Random Glucose Calcium Phosphorus Magnesium Total Bilirubin AST ALT Alkaline Phosphatase Total Protein Albumin Random Vancomycin 05/08/19 05/08/19 05/08/19 02:27 04:38 06:05 WBC RBC Hgb Hct MCV MCH MCHC RDW Plt Count MPV Absolute Neuts (auto) Neutrophils % Neutrophils % (Manual) Band Neutrophils % Lymphocytes % Lymphocytes % (Manual) Monocytes % Monocytes % (Manual) Eosinophils % Eosinophils % (Manual) Basophils % Basophils % (Manual) Myelocytes % (Man) Promyelocytes % (Man) Blast Cells % (Manual) Nucleated RBC % Metamyelocytes Hypochromia Toxic Granulation Platelet Estimate Platelet Comment Polychromasia Poikilocytosis Anisocytosis Microcytosis Macrocytosis Spherocytes Target Cells Tear Drop Cells Ovalocytes Acanthocytes (Spur) PTT (Actin FS) Sodium Potassium Chloride Carbon Dioxide Anion Gap BUN Creatinine Est GFR (CKD-EPI)AfAm Est GFR (CKD-EPI)NonAf POC Glucometer 174 205 Random Glucose Calcium Phosphorus Magnesium Total Bilirubin AST ALT Alkaline Phosphatase Total Protein Albumin Random Vancomycin 12.3 L 05/08/19 05/08/19 05/08/19 06:05 06:05 06:05 WBC 10.5 H RBC 4.63 Hgb 11.2 L Hct 36.0 MCV 77.8 L MCH 24.2 L MCHC 31.1 L RDW 19.3 H Plt Count 285 MPV 8.6 Absolute Neuts (auto) 9.6 H Neutrophils % 91.2 H Neutrophils % (Manual) 96.9 H Band Neutrophils % 0.0 Lymphocytes % 1.9 L Lymphocytes % (Manual) 0.0 L Monocytes % 6.7 Monocytes % (Manual) 2 L Eosinophils % 0.1 D Eosinophils % (Manual) 0.0 Basophils % 0.1 Basophils % (Manual) 0.0 Myelocytes % (Man) 0 Promyelocytes % (Man) 0 Blast Cells % (Manual) 0 D Nucleated RBC % 1 H Metamyelocytes 0 Hypochromia 0 Toxic Granulation 2+ Platelet Estimate Normal Platelet Comment Present Polychromasia 0 Poikilocytosis 1+ Anisocytosis 1+ Microcytosis 1+ Macrocytosis 0 Spherocytes 1+ Target Cells 1+ Tear Drop Cells 1+ Ovalocytes 1+ Acanthocytes (Spur) 1+ PTT (Actin FS) 62.1 H Sodium 145 Potassium 3.8 Chloride 101 Carbon Dioxide 36 H Anion Gap 8 BUN 68.7 H Creatinine 1.7 H Est GFR (CKD-EPI)AfAm 52.94 Est GFR (CKD-EPI)NonAf 45.68 POC Glucometer Random Glucose 208 H Calcium 9.4 Phosphorus 3.5 Magnesium 2.4 Total Bilirubin 0.6 AST 32 ALT 55 Alkaline Phosphatase 92 Total Protein 6.4 Albumin 2.8 L Random Vancomycin 05/08/19 05/08/19 05/08/19 06:20 08:26 11:47 WBC RBC Hgb Hct MCV MCH MCHC RDW Plt Count MPV Absolute Neuts (auto) Neutrophils % Neutrophils % (Manual) Band Neutrophils % Lymphocytes % Lymphocytes % (Manual) Monocytes % Monocytes % (Manual) Eosinophils % Eosinophils % (Manual) Basophils % Basophils % (Manual) Myelocytes % (Man) Promyelocytes % (Man) Blast Cells % (Manual) Nucleated RBC % Metamyelocytes Hypochromia Toxic Granulation Platelet Estimate Platelet Comment Polychromasia Poikilocytosis Anisocytosis Microcytosis Macrocytosis Spherocytes Target Cells Tear Drop Cells Ovalocytes Acanthocytes (Spur) PTT (Actin FS) Sodium Potassium Chloride Carbon Dioxide Anion Gap BUN Creatinine Est GFR (CKD-EPI)AfAm Est GFR (CKD-EPI)NonAf POC Glucometer 210 211 184 Random Glucose Calcium Phosphorus Magnesium Total Bilirubin AST ALT Alkaline Phosphatase Total Protein Albumin Random Vancomycin Active Medications Generic Name Dose Route Start Last Admin Trade Name Brandi PRN Reason Stop Dose Admin Albuterol/Ipratropium 1 amp 04/30/19 16:00 05/08/19 14:37 Duoneb - NEB 1 amp RQID ELISSA Administration Apixaban 5 mg 05/08/19 22:00 Eliquis - PO BID ELISSA Chlorhexidine Gluconate 1 applic 04/30/19 22:00 05/07/19 21:44 Hibiclens For Decolonization - TP 1 applic HS ELISSA Administration Furosemide 40 mg 05/08/19 14:00 05/08/19 13:08 Lasix Injection - IVPUSH 40 mg BID@0600,1400 ELISSA Administration Vasopressin 50 units/ Sodium 100 mls @ 4 mls/hr 04/30/19 09:30 05/08/19 11:57 Chloride IVPB Not Given ASDIR ELISSA Protocol 2 UNITS/HR Propofol 1,000,000 mcg in 100 mls @ 4.082 mls/hr 04/30/19 10:15 05/08/19 11: 56 Diprivan - IVPB 40 mcg/kg/min TITR ELISSA 32.659 mls/hr Administration Protocol 5 MCG/KG/MIN Norepinephrine Bitartrate 8, 500 mls @ 18.75 mls/hr 04/30/19 14:00 05/07/19 21:44 000 mcg/ Dextrose/Sodium IV Not Given Chloride TITR ELISSA Protocol 5 MCG/MIN Piperacillin Sod/Tazobactam 50 mls @ 100 mls/hr 05/01/19 18:00 05/08/19 10:00 Sod 3.375 gm/ Dextrose IVPB 100 mls/hr Q8H-IV ELISSA Administration Protocol Fentanyl 500 mcg/ Dextrose 100 mls @ 10 mls/hr 05/01/19 12:45 05/08/19 13:05 IVPB 100 mcg/hr TITR ELISSA 20 mls/hr Administration Protocol 50 MCG/HR Insulin Aspart 1 vial 05/08/19 12:15 05/08/19 13:04 Novolog Vial Sliding Scale - SQ Not Given Q6H ELISSA Protocol Methylprednisolone Sodium Succinate 40 mg 05/02/19 14:05 05/08/19 10:00 Solu-Medrol - IVPUSH 40 mg Q8H-IV ELISSA Administration Metoprolol Tartrate 5 mg 04/30/19 08:57 05/08/19 13:05 Lopressor Injection - IVPUSH 5 mg Q4H PRN Administration TACHYCARDIA Metoprolol Tartrate 25 mg 05/08/19 14:00 Lopressor - PO TID ELISSA Pantoprazole Sodium 40 mg 05/01/19 10:00 05/08/19 10:01 Protonix Iv IVPUSH 40 mg DAILY ELISSA Administration ASSESSMENT/PLAN: 53 y/o/m with PMHx of DM2, HFpEF(last EF: 45-50%), 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 #Acute Hypoxic and Hypercapneic Respiratory Failure/ EMMY - Pt. intubated and Sedated - sedated on Propofol and fentanyl - Vecuronium discontinued - Recent ABGs with improvement, oxygen weaned to 50%, PEEP 6 - Pulm consulted - Dusally RQID - Solumedrol 40mg Q8h IV - Follow CXRs - increased pulmonary changes at bases - Azithromycin 500mg QD, Zosyn IV Q8hr - Redose Vanco per levels - ID consulted (Dr. Garcia) - Positive blood culture bottle initially but repeat blood cultures s/p abx negative #HFpEF vs. Cardiogenic shock - Lasix drip @ 5mg/hr. Patient making good urine, negative balance daily - Strict Is & Os, daily weights - ECHO difficult to assess, unremarkable - Cardiology Consult (Dr. Encinas) - off pressors, BP stable - Cardio recommends cardiac PET or MRI to exclude cardiac involvement in sarcoidosis as outpatient. F/u with Dr. Genaro Davila at [place] #Atrial Flutter - Lopressor 25mg PO BID - Lopressor 5mg IVpush Q4hr PRN for rate control - Heparin drip #RYNE on CKD w/ Hyperkalemia - BUN/Cr 68.7/1.7 fluctuating levels - Nephrology Consulted (Dr. Kelley) - Likely secondary to volume overload. Pt. likely has CKD given risk factors of DM2 (uncontrolled glucose) and Heart Failure - Hyperkalemia resolved - lasix drip - Hold Lisinopril, restart 10mg QD once improved #DM2 - BGM ACHS - ISS ACHS - Insulin drip, improved sugar control #FEN - no standing IVF - monitor electrolytes. K+ normalized - feeds through NG tube #DVT Ppx. - Heparin drip discontinued, switched to Eliquis 5mg BID - Protonix #Disposition - Continue ICU monitoring, off pressors, wean oxygen as tolerated - Possible transfer to [facility], pending bed availability Visit type - Emergency Visit Emergency Visit: Yes ED Registration Date: 04/30/19 Care time: The patient presented to the Emergency Department on the above date and was hospitalized for further evaluation of their emergent condition. - New Patient This patient is new to me today: No - Critical Care Critical Care patient: Yes Total Critical Care Time (in minutes): 36 Critical Care Statement: The care of this patient involved high complexity decision making to prevent further life threatening deterioration of the patient 's condition and/or to evaluate & treat vital organ system(s) failure or risk of failure. ATTENDING PHYSICIAN STATEMENT I saw and evaluated the patient. I reviewed the resident's note and discussed the case with the resident. I agree with the resident's findings and plan as documented. SUBJECTIVE: OBJECTIVE: ASSESSMENT AND PLAN:
--- NOTE | 2019-05-08 16:16 | PN ---
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, Physician History of Present Illness: Pt seen and examined at bedside. He remains in the ICU. He remains intubated. - Current Medication List Current Medications: Active Medications Albuterol/Ipratropium (Duoneb -) 1 amp NEB RQID ELISSA Last Admin: 05/08/19 14:37 Dose: 1 amp Apixaban (Eliquis -) 5 mg PO BID ELISSA Chlorhexidine Gluconate (Hibiclens For Decolonization -) 1 applic TP HS [facility] Last Admin: 05/07/19 21:44 Dose: 1 applic Furosemide (Lasix Injection -) 40 mg IVPUSH BID@0600,1400 ELISSA Last Admin: 05/08/19 13:08 Dose: 40 mg Vasopressin 50 units/ Sodium (Chloride) 100 mls @ 4 mls/hr IVPB ASDIR ELISSA; Protocol Last Admin: 05/08/19 11:57 Dose: Not Given Propofol (Diprivan -) 1,000,000 mcg in 100 mls @ 4.082 mls/hr IVPB TITR ELISSA; Protocol Last Admin: 05/08/19 11:56 Dose: 40 mcg/kg/min, 32.659 mls/hr Norepinephrine Bitartrate 8, 000 mcg/ Dextrose/Sodium Chloride 500 mls @ 18.75 mls/hr IV TITR ELISSA; Protocol Last Admin: 05/07/19 21:44 Dose: Not Given Piperacillin Sod/Tazobactam (Sod 3.375 gm/ Dextrose) 50 mls @ 100 mls/hr IVPB Q8H-IV ELISSA; Protocol Last Admin: 05/08/19 10:00 Dose: 100 mls/hr Fentanyl 500 mcg/ Dextrose 100 mls @ 10 mls/hr IVPB TITR ELISSA; Protocol Last Admin: 05/08/19 13:05 Dose: 100 mcg/hr, 20 mls/hr Insulin Aspart (Novolog Vial Sliding Scale -) 1 vial SQ Q6H ELISSA; Protocol Last Admin: 05/08/19 13:04 Dose: Not Given Methylprednisolone Sodium Succinate (Solu-Medrol -) 40 mg IVPUSH Q8H-IV ELISSA Last Admin: 05/08/19 10:00 Dose: 40 mg Metoprolol Tartrate (Lopressor Injection -) 5 mg IVPUSH Q4H PRN PRN Reason: TACHYCARDIA Last Admin: 05/08/19 13:05 Dose: 5 mg Metoprolol Tartrate (Lopressor -) 25 mg PO TID [facility] Last Admin: 05/08/19 15:00 Dose: 25 mg Pantoprazole Sodium (Protonix Iv) 40 mg IVPUSH DAILY [facility] Last Admin: 05/08/19 10:01 Dose: 40 mg - Objective Vital Signs: Vital Signs Temperature 99.1 F 05/08/19 16:00 Pulse Rate 108 H 05/08/19 16:00 Respiratory Rate 36 H 05/08/19 16:00 Blood Pressure 90/57 L 05/08/19 16:00 O2 Sat by Pulse Oximetry (%) 95 05/08/19 10:00 Constitutional: Yes: Calm Eyes: Yes: Conjunctiva Clear HENT: Yes: Atraumatic Neck: Yes: Supple Cardiovascular: Yes: S1, S2 Respiratory: Yes: Intubated, Mechanically Ventilated Gastrointestinal: Yes: Soft Genitourinary: Yes: Andrews Present Musculoskeletal: Yes: Muscle Weakness Edema: Yes Edema: LLE: Trace, RLE: Trace Neurological: Yes: Lethargy Labs: CBC, BMP 05/08/19 06:05 05/08/19 06:05 INR, PTT INR 1.09 (0.83-1.09) 05/05/19 05:30 Problem List - Problems (1) Acute decompensated heart failure Code(s): I50.9 - HEART FAILURE, UNSPECIFIED (2) Atrial fibrillation and flutter Code(s): I48.91 - UNSPECIFIED ATRIAL FIBRILLATION; I48.92 - UNSPECIFIED ATRIAL FLUTTER (3) Hyperkalemia Code(s): E87.5 - HYPERKALEMIA (4) Pneumonia Code(s): J18.9 - PNEUMONIA, UNSPECIFIED ORGANISM Qualifiers: Pneumonia type: due to unspecified organism (5) Sarcoidosis of other sites Code(s): D86.89 - SARCOIDOSIS OF OTHER SITES Assessment/Plan Current Medications Generic Name Dose Route Start Last Admin Trade Name Freq PRN Reason Stop Dose Admin Albuterol/Ipratropium 1 amp 04/30/19 16:00 05/08/19 14:37 Duoneb - NEB 1 amp RQID [facility] Administration Apixaban 5 mg 05/08/19 22:00 Eliquis - PO BID [facility] Chlorhexidine Gluconate 1 applic 04/30/19 22:00 05/07/19 21:44 Hibiclens For Decolonization - TP 1 applic HS ELISSA Administration Furosemide 40 mg 05/08/19 14:00 05/08/19 13:08 Lasix Injection - IVPUSH 40 mg BID@0600,1400 ELISSA Administration Vasopressin 50 units/ Sodium 100 mls @ 4 mls/hr 04/30/19 09:30 05/08/19 11:57 Chloride IVPB Not Given ASDIR ELISSA Protocol 2 UNITS/HR Propofol 1,000,000 mcg in 100 mls @ 4.082 mls/hr 04/30/19 10:15 05/08/19 11: 56 Diprivan - IVPB 40 mcg/kg/min TITR ELISSA 32.659 mls/hr Administration Protocol 5 MCG/KG/MIN Norepinephrine Bitartrate 8, 500 mls @ 18.75 mls/hr 04/30/19 14:00 05/07/19 21:44 000 mcg/ Dextrose/Sodium IV Not Given Chloride TITR ELISSA Protocol 5 MCG/MIN Piperacillin Sod/Tazobactam 50 mls @ 100 mls/hr 05/01/19 18:00 05/08/19 10:00 Sod 3.375 gm/ Dextrose IVPB 100 mls/hr Q8H-IV LEISSA Administration Protocol Fentanyl 500 mcg/ Dextrose 100 mls @ 10 mls/hr 05/01/19 12:45 05/08/19 13:05 IVPB 100 mcg/hr TITR ELISSA 20 mls/hr Administration Protocol 50 MCG/HR Insulin Aspart 1 vial 05/08/19 12:15 05/08/19 13:04 Novolog Vial Sliding Scale - SQ Not Given Q6H ELISSA Protocol Methylprednisolone Sodium Succinate 40 mg 05/02/19 14:05 05/08/19 10:00 Solu-Medrol - IVPUSH 40 mg Q8H-IV ELISSA Administration Metoprolol Tartrate 5 mg 04/30/19 08:57 05/08/19 13:05 Lopressor Injection - IVPUSH 5 mg Q4H PRN Administration TACHYCARDIA Metoprolol Tartrate 25 mg 05/08/19 14:00 05/08/19 15:00 Lopressor - PO 25 mg TID ELISSA Administration Pantoprazole Sodium 40 mg 05/01/19 10:00 05/08/19 10:01 Protonix Iv IVPUSH 40 mg DAILY ELISSA Administration Impression 1. RYNE 2. hyperkalemia 3. resp failure requiring intubation 4. resp acidosis 5. dm 6. hx htn 7. sleep apnea 8. obesity 9. hx non compliance 10. chf 11. sarcoid 12. volume overload Plan - volume status improving - pt on bolus lasix doses - volume status improving - vent support - monitor abg - discussed with ICU team - monitor urine output
--- NOTE | 2019-05-08 18:26 | PN ---
Teaching Attending Note Name of Resident: Giuseppe Rm ATTENDING PHYSICIAN STATEMENT I saw and evaluated the patient. I reviewed the resident's note and discussed the case with the resident. I agree with the resident's findings and plan as documented. SUBJECTIVE: Intubated, mechanically ventilated, sedated, unable to participate in medical interview OBJECTIVE: Afebrile. Weaned off Levophed and Vasopressin. Intubated/Ventilated - AC Mode/PEEP 6/FiO2 50% Last Vital Signs Temp Pulse Resp BP Pulse Ox 99.1 F 108 H 37 H 90/57 L 95 05/08/19 16:00 05/08/19 16:00 05/08/19 17:25 05/08/19 16:00 05/08/19 10:00 HEENT - Normocephalic. Intubated/Ventilated. OG tube. Heart - S1, S2, RRR Lungs - good air entry bilaterally Abdomen - High BMI, soft, non-tender. Bowel Sounds normal. Extremities - Mild edema, no calf tenderness. Neuro - Sedated. Laboratory Results - last 24 hr 05/07/19 05/07/19 05/07/19 19:32 20:32 22:21 WBC RBC Hgb Hct MCV MCH MCHC RDW Plt Count MPV Absolute Neuts (auto) Neutrophils % Neutrophils % (Manual) Band Neutrophils % Lymphocytes % Lymphocytes % (Manual) Monocytes % Monocytes % (Manual) Eosinophils % Eosinophils % (Manual) Basophils % Basophils % (Manual) Myelocytes % (Man) Promyelocytes % (Man) Blast Cells % (Manual) Nucleated RBC % Metamyelocytes Hypochromia Toxic Granulation Platelet Estimate Platelet Comment Polychromasia Poikilocytosis Anisocytosis Microcytosis Macrocytosis Spherocytes Target Cells Tear Drop Cells Ovalocytes Acanthocytes (Spur) PTT (Actin FS) Sodium Potassium Chloride Carbon Dioxide Anion Gap BUN Creatinine Est GFR (CKD-EPI)AfAm Est GFR (CKD-EPI)NonAf POC Glucometer 134 135 185 Random Glucose Calcium Phosphorus Magnesium Total Bilirubin AST ALT Alkaline Phosphatase Total Protein Albumin Random Vancomycin 05/08/19 05/08/19 05/08/19 00:17 02:27 04:38 WBC RBC Hgb Hct MCV MCH MCHC RDW Plt Count MPV Absolute Neuts (auto) Neutrophils % Neutrophils % (Manual) Band Neutrophils % Lymphocytes % Lymphocytes % (Manual) Monocytes % Monocytes % (Manual) Eosinophils % Eosinophils % (Manual) Basophils % Basophils % (Manual) Myelocytes % (Man) Promyelocytes % (Man) Blast Cells % (Manual) Nucleated RBC % Metamyelocytes Hypochromia Toxic Granulation Platelet Estimate Platelet Comment Polychromasia Poikilocytosis Anisocytosis Microcytosis Macrocytosis Spherocytes Target Cells Tear Drop Cells Ovalocytes Acanthocytes (Spur) PTT (Actin FS) Sodium Potassium Chloride Carbon Dioxide Anion Gap BUN Creatinine Est GFR (CKD-EPI)AfAm Est GFR (CKD-EPI)NonAf POC Glucometer 162 174 205 Random Glucose Calcium Phosphorus Magnesium Total Bilirubin AST ALT Alkaline Phosphatase Total Protein Albumin Random Vancomycin 05/08/19 05/08/19 05/08/19 06:05 06:05 06:05 WBC 10.5 H RBC 4.63 Hgb 11.2 L Hct 36.0 MCV 77.8 L MCH 24.2 L MCHC 31.1 L RDW 19.3 H Plt Count 285 MPV 8.6 Absolute Neuts (auto) 9.6 H Neutrophils % 91.2 H Neutrophils % (Manual) 96.9 H Band Neutrophils % 0.0 Lymphocytes % 1.9 L Lymphocytes % (Manual) 0.0 L Monocytes % 6.7 Monocytes % (Manual) 2 L Eosinophils % 0.1 D Eosinophils % (Manual) 0.0 Basophils % 0.1 Basophils % (Manual) 0.0 Myelocytes % (Man) 0 Promyelocytes % (Man) 0 Blast Cells % (Manual) 0 D Nucleated RBC % 1 H Metamyelocytes 0 Hypochromia 0 Toxic Granulation 2+ Platelet Estimate Normal Platelet Comment Present Polychromasia 0 Poikilocytosis 1+ Anisocytosis 1+ Microcytosis 1+ Macrocytosis 0 Spherocytes 1+ Target Cells 1+ Tear Drop Cells 1+ Ovalocytes 1+ Acanthocytes (Spur) 1+ PTT (Actin FS) 62.1 H Sodium Potassium Chloride Carbon Dioxide Anion Gap BUN Creatinine Est GFR (CKD-EPI)AfAm Est GFR (CKD-EPI)NonAf POC Glucometer Random Glucose Calcium Phosphorus Magnesium Total Bilirubin AST ALT Alkaline Phosphatase Total Protein Albumin Random Vancomycin 12.3 L 05/08/19 05/08/19 05/08/19 06:05 06:20 08:26 WBC RBC Hgb Hct MCV MCH MCHC RDW Plt Count MPV Absolute Neuts (auto) Neutrophils % Neutrophils % (Manual) Band Neutrophils % Lymphocytes % Lymphocytes % (Manual) Monocytes % Monocytes % (Manual) Eosinophils % Eosinophils % (Manual) Basophils % Basophils % (Manual) Myelocytes % (Man) Promyelocytes % (Man) Blast Cells % (Manual) Nucleated RBC % Metamyelocytes Hypochromia Toxic Granulation Platelet Estimate Platelet Comment Polychromasia Poikilocytosis Anisocytosis Microcytosis Macrocytosis Spherocytes Target Cells Tear Drop Cells Ovalocytes Acanthocytes (Spur) PTT (Actin FS) Sodium 145 Potassium 3.8 Chloride 101 Carbon Dioxide 36 H Anion Gap 8 BUN 68.7 H Creatinine 1.7 H Est GFR (CKD-EPI)AfAm 52.94 Est GFR (CKD-EPI)NonAf 45.68 POC Glucometer 210 211 Random Glucose 208 H Calcium 9.4 Phosphorus 3.5 Magnesium 2.4 Total Bilirubin 0.6 AST 32 ALT 55 Alkaline Phosphatase 92 Total Protein 6.4 Albumin 2.8 L Random Vancomycin 05/08/19 05/08/19 11:47 16:50 WBC RBC Hgb Hct MCV MCH MCHC RDW Plt Count MPV Absolute Neuts (auto) Neutrophils % Neutrophils % (Manual) Band Neutrophils % Lymphocytes % Lymphocytes % (Manual) Monocytes % Monocytes % (Manual) Eosinophils % Eosinophils % (Manual) Basophils % Basophils % (Manual) Myelocytes % (Man) Promyelocytes % (Man) Blast Cells % (Manual) Nucleated RBC % Metamyelocytes Hypochromia Toxic Granulation Platelet Estimate Platelet Comment Polychromasia Poikilocytosis Anisocytosis Microcytosis Macrocytosis Spherocytes Target Cells Tear Drop Cells Ovalocytes Acanthocytes (Spur) PTT (Actin FS) Sodium Potassium Chloride Carbon Dioxide Anion Gap BUN Creatinine Est GFR (CKD-EPI)AfAm Est GFR (CKD-EPI)NonAf POC Glucometer 184 268 Random Glucose Calcium Phosphorus Magnesium Total Bilirubin AST ALT Alkaline Phosphatase Total Protein Albumin Random Vancomycin Current Medications Generic Name Dose Route Start Last Admin Trade Name Freq PRN Reason Stop Dose Admin Albuterol/Ipratropium 1 amp 04/30/19 16:00 05/08/19 16:40 Duoneb - NEB 1 amp RQID ELISSA Administration Apixaban 5 mg 05/08/19 22:00 Eliquis - PO BID ELISSA Chlorhexidine Gluconate 1 applic 04/30/19 22:00 05/07/19 21:44 Hibiclens For Decolonization - TP 1 applic HS ELISSA Administration Furosemide 40 mg 05/08/19 14:00 05/08/19 13:08 Lasix Injection - IVPUSH 40 mg BID@0600,1400 ELISSA Administration Vasopressin 50 units/ Sodium 100 mls @ 4 mls/hr 04/30/19 09:30 05/08/19 11:57 Chloride IVPB Not Given ASDIR ELISSA Protocol 2 UNITS/HR Propofol 1,000,000 mcg in 100 mls @ 4.082 mls/hr 04/30/19 10:15 05/08/19 11: 56 Diprivan - IVPB 40 mcg/kg/min TITR ELISSA 32.659 mls/hr Administration Protocol 5 MCG/KG/MIN Norepinephrine Bitartrate 8, 500 mls @ 18.75 mls/hr 04/30/19 14:00 05/07/19 21:44 000 mcg/ Dextrose/Sodium IV Not Given Chloride TITR ELISSA Protocol 5 MCG/MIN Piperacillin Sod/Tazobactam 50 mls @ 100 mls/hr 05/01/19 18:00 05/08/19 17:18 Sod 3.375 gm/ Dextrose IVPB 100 mls/hr Q8H-IV ELISSA Administration Protocol Fentanyl 500 mcg/ Dextrose 100 mls @ 10 mls/hr 05/01/19 12:45 05/08/19 13:05 IVPB 100 mcg/hr TITR ELISSA 20 mls/hr Administration Protocol 50 MCG/HR Insulin Aspart 1 vial 05/08/19 12:15 05/08/19 17:52 Novolog Vial Sliding Scale - SQ 6 units Q6H ELISSA Administration Protocol Methylprednisolone Sodium Succinate 40 mg 05/02/19 14:05 05/08/19 17:18 Solu-Medrol - IVPUSH 40 mg Q8H-IV ELISSA Administration Metoprolol Tartrate 5 mg 04/30/19 08:57 05/08/19 13:05 Lopressor Injection - IVPUSH 5 mg Q4H PRN Administration TACHYCARDIA Metoprolol Tartrate 25 mg 05/08/19 14:00 05/08/19 15:00 Lopressor - PO 25 mg TID ELISSA Administration Pantoprazole Sodium 40 mg 05/01/19 10:00 05/08/19 10:01 Protonix Iv IVPUSH 40 mg DAILY ELISSA Administration Home Medications Medication Instructions Recorded Amiodarone HCl 200 mg PO DAILY 04/30/19 Apixaban [Eliquis] 5 mg PO BID 04/30/19 Diltiazem Cd [Cardizem Cd -] 300 mg PO DAILY 04/30/19 Furosemide 40 mg PO BID 04/30/19 Glipizide 10 mg PO DAILY 04/30/19 Lisinopril 10 mg PO DAILY 04/30/19 Metformin HCl [Glucophage] 1,000 mg PO BID 04/30/19 Sitagliptin Phosphate [Januvia] 100 mg PO DAILY 04/30/19 ASSESSMENT AND PLAN: 53 year old male with Obesity, DM 2, Sarcoidosis, Hx systolic CHF (EF 45-50%, now EF normal), EMMY (non-adherent with CPAP), and Atrial Flutter presented with sudden onset of shortness of breath, requiring intubation and mechanical ventilation. 1. Acute Hypoxic and Hypercapneic Respiratory Failure secondary to Acute Diastolic CHF +/- PNA Intubated/Mechanically ventilated. On Propofol and Fentanyl sedation. Failed weaning, unable to extubate. Difficult to wean off Vent - likely sec to underlying OHS. IV Lasix drip diuresis ongoing. 12lb weight reduction so far. Continue Zosyn/Vanco as per ID CXR - atelectasis at bases. Wean down pressure support and O2 requirements, as per Pulm/Medical Technologist Prn. Continue Bronchodilator Nebs, Steroids. Rest as per Medical Technologist Prn - recommendation for transfer to tertiary care center for prone ventilation - awaiting bed. 2. Cardiogenic Shock sec to Acute Diastolic CHF vs Septic Shock, etiology unclear. Weaned off Levophed and Vasopressin Blood Cx - Staph epi, likely contaminant. Echo - no vegetations. Repeat Blood Cx neg x 2. Continue Zosyn/Vanco as per ID for possible PNA Cardiology following - for out-patient Cardiac MRI as out-patient to asses degree of sarcoid involvement. BP still borderline. On BB. Diltiazem and Lisinopril held. 3. Atrial flutter with RVR - on Lopressor for rate control. Diltiazem and Eliquis held. Heparin drip for AC. Normally on Amiodarone - further management as per Cardio. 4. RYNE with Hyperkalemia - likely secondary to Cardiorenal phenomenon, improving with Lasix diuresis. Creat Stable at 1.7 Nephrology following. 5. DM 2 - Maintained on Insulin drip. Normally on Glipizide, Metformin and Januvia at home. DVT Px - Heparin drip ongoing. GI Px - PPI
[2019-05-08] MEDS: DEXTROSE 5% IV SCH (19:52)
[2019-05-08] MEDS: NORMAL SALINE IV SCH (19:52)
[2019-05-08] MEDS: INSULIN REGULAR 100 UNITS in SODIUM CHLORIDE 99 ML IVPB SCH (19:52)
[2019-05-08] MEDS: NOREPINEPHRINE BITARTRATE IV SCH (19:52)
--- NOTE | 2019-05-08 19:53 | PN ---
Physical Exam: SUBJECTIVE: Patient seen and examined. Continuing daily sedation emil's. Central line & A-line d/c'd today. OBJECTIVE: Vital Signs Period Temp Pulse Resp BP Sys/Kenyon Pulse Ox Last 24 Hr 98.5 F-99.3 F 51-141 36-37 90-125/57-84 92-96 GENERAL: Intubated, sedated HEENT: NCAT. LUNGS: + vent sounds. HEART: Tachy, S1S2. no murmurs ABDOMEN: Soft NTND. +BS. EXTREMITIES: 2+ pulses intact b/l. 1+ pitting LE edema. SKIN: Warm, dry Laboratory Results - last 24 hr Laboratory Last Values WBC 10.5 K/mm3 (4.0-10.0) H 05/08/19 06:05 RBC 4.63 M/mm3 (4.00-5.60) 05/08/19 06:05 Hgb 11.2 GM/dL (11.7-16.9) L 05/08/19 06:05 Hct 36.0 % (35.4-49) 05/08/19 06:05 MCV 77.8 fl (80-96) L 05/08/19 06:05 MCH 24.2 pg (25.7-33.7) L 05/08/19 06:05 MCHC 31.1 g/dl (32.0-35.9) L 05/08/19 06:05 RDW 19.3 % (11.9-15.9) H 05/08/19 06:05 Plt Count 285 K/MM3 (134-434) 05/08/19 06:05 MPV 8.6 fl (7.5-11.1) 05/08/19 06:05 Absolute Neuts (auto) 9.6 K/mm3 (1.5-8.0) H 05/08/19 06:05 Total Counted 100 05/03/19 06:10 Neutrophils % 91.2 % (42.8-82.8) H 05/08/19 06:05 Neutrophils % (Manual) 96.9 % (42.8-82.8) H 05/08/19 06:05 Band Neutrophils % 0.0 % 05/08/19 06:05 Lymphocytes % 1.9 % (8-40) L 05/08/19 06:05 Lymphocytes % (Manual) 0.0 % (8-40) L 05/08/19 06:05 Monocytes % 6.7 % (3.8-10.2) 05/08/19 06:05 Monocytes % (Manual) 2 % (3.8-10.2) L 05/08/19 06:05 Eosinophils % 0.1 % (0-4.5) D 05/08/19 06:05 Eosinophils % (Manual) 0.0 % (0-4.5) 05/08/19 06:05 Basophils % 0.1 % (0-2.0) 05/08/19 06:05 Basophils % (Manual) 0.0 % (0-2.0) 05/08/19 06:05 Myelocytes % (Man) 0 % (0-2) 05/08/19 06:05 Promyelocytes % (Man) 0 % (0-2) 05/08/19 06:05 Blast Cells % (Manual) 0 % (0-0) D 05/08/19 06:05 Nucleated RBC % 1 % (0-0) H 05/08/19 06:05 Metamyelocytes 0 % (0-2) 05/08/19 06:05 Hypochromia 0 05/08/19 06:05 Toxic Granulation 2+ 05/08/19 06:05 Platelet Estimate Normal 05/08/19 06:05 Platelet Comment Present 05/08/19 06:05 Polychromasia 0 05/08/19 06:05 Poikilocytosis 1+ 05/08/19 06:05 Basophilic Stippling 1+ 05/01/19 05:25 Anisocytosis 1+ 05/08/19 06:05 Microcytosis 1+ 05/08/19 06:05 Macrocytosis 0 05/08/19 06:05 Spherocytes 1+ 05/08/19 06:05 Target Cells 1+ 05/08/19 06:05 Tear Drop Cells 1+ 05/08/19 06:05 Ovalocytes 1+ 05/08/19 06:05 Stomatocytes 1+ 05/07/19 05:15 Florence Cells 1+ 05/03/19 06:10 Acanthocytes (Spur) 1+ 05/08/19 06:05 PT with INR 12.90 SEC (9.7-13.0) 05/05/19 05:30 INR 1.09 (0.83-1.09) 05/05/19 05:30 PTT (Actin FS) 62.1 SECONDS (25.2-36.5) H 05/08/19 06:05 Anticoagulation Therapy No Result Required. 05/06/19 06:10 Puncture Site Arterial line 05/06/19 06:10 ABG pH 7.37 (7.35-7.45) 05/06/19 06:10 ABG pCO2 at Pt Temp 58.2 mmHg (35-45) H 05/06/19 06:10 ABG pO2 at Pt Temp 104 mmHg (80-100) H 05/06/19 06:10 ABG HCO3 32.5 mmol/L (22-27) H 05/06/19 06:10 ABG O2 Sat (Measured) 96.7 % (95-98) 05/06/19 06:10 ABG O2 Content 14.7 % vol 05/06/19 06:10 ABG Base Excess 6.3 meq/l (-2-2) H 05/06/19 06:10 Adrian Test Not applicable 05/06/19 06:10 Carboxyhemoglobin 1.3 % (0-2) 04/30/19 06:45 Methemoglobin < 1.0 % (0-2) 04/30/19 06:45 O2 Delivery Device Mech vent 05/06/19 06:10 Oxygen Flow Rate 70% 05/06/19 06:10 Vent Mode A/c 05/06/19 06:10 Vent Rate 36 05/06/19 06:10 Mechanical Rate Yes 05/06/19 06:10 PEEP 15.0 cmH2O 05/06/19 06:10 Pressure Support Vent 325 05/06/19 06:10 Sodium 145 mmol/L (136-145) 05/08/19 06:05 Potassium 3.8 mmol/L (3.5-5.1) 05/08/19 06:05 Chloride 101 mmol/L (98-107) 05/08/19 06:05 Carbon Dioxide 36 mmol/L (21-32) H 05/08/19 06:05 Anion Gap 8 MMOL/L (8-16) 05/08/19 06:05 BUN 68.7 mg/dL (7-18) H 05/08/19 06:05 Creatinine 1.7 mg/dL (0.55-1.3) H 05/08/19 06:05 Est GFR (CKD-EPI)AfAm 52.94 05/08/19 06:05 Est GFR (CKD-EPI)NonAf 45.68 05/08/19 06:05 POC Glucometer 268 UNITS (80-120) 05/08/19 16:50 Random Glucose 208 mg/dL (74-106) H 05/08/19 06:05 Hemoglobin A1c % 8.9 % (4.2-6.3) H 05/01/19 05:25 Lactic Acid 1.2 mmol/L (0.4-2.0) 04/30/19 12:45 Calcium 9.4 mg/dL (8.5-10.1) 05/08/19 06:05 Phosphorus 3.5 mg/dL (2.5-4.9) 05/08/19 06:05 Magnesium 2.4 mg/dL (1.8-2.4) 05/08/19 06:05 Iron 26 ug/dL (50-175) L 05/01/19 05:25 TIBC 389 ug/dL (250-450) 05/01/19 05:25 Iron Saturation 6 % (17.5-39) L 05/01/19 05:25 Unsaturated IBC 363 ug/dL (200-275) H 05/01/19 05:25 Ferritin 36.6 ng/ml (8-388) 05/01/19 05:25 Total Bilirubin 0.6 mg/dL (0.2-1) 05/08/19 06:05 Direct Bilirubin 0.2 mg/dL (0.0-0.2) 05/05/19 05:30 AST 32 U/L (15-37) 05/08/19 06:05 ALT 55 U/L (13-61) 05/08/19 06:05 Alkaline Phosphatase 92 U/L (45-117) 05/08/19 06:05 Creatine Kinase 55 U/L (26-308) 05/05/19 05:30 CK-MB (CK-2) 4.7 ng/mL (0.5-3.6) H 04/30/19 05:05 Troponin I < 0.02 ng/ml (0.00-0.05) 05/05/19 05:30 B-Natriuretic Peptide 781.3 pg/ml (5-125) H 05/04/19 05:20 Total Protein 6.4 g/dl (6.4-8.2) 05/08/19 06:05 Albumin 2.8 g/dl (3.4-5.0) L 05/08/19 06:05 Urine Color Yellow 04/30/19 05:35 Urine Appearance Clear 04/30/19 05:35 Urine pH 5.0 (5.0-8.0) 04/30/19 05:35 Ur Specific Crozier 1.019 (1.010-1.035) 04/30/19 05:35 Urine Protein Trace (NEGATIVE) 04/30/19 05:35 Urine Glucose (UA) Negative (NEGATIVE) 04/30/19 05:35 Urine Ketones Negative (NEGATIVE) 04/30/19 05:35 Urine Blood Negative (NEGATIVE) 04/30/19 05:35 Urine Nitrite Negative (NEGATIVE) 04/30/19 05:35 Urine Bilirubin Negative (NEGATIVE) 04/30/19 05:35 Urine Urobilinogen 0.2 mg/dL (0.2-1.0) 04/30/19 05:35 Ur Leukocyte Esterase Negative (NEGATIVE) 04/30/19 05:35 Random Vancomycin 12.3 ug/ml (18-26) L 05/08/19 06:05 Influenza A (Rapid) Negative (Negative) 04/30/19 20:15 Influenza B (Rapid) Negative (Negative) 04/30/19 20:15 Active Medications Current Medications Albuterol/Ipratropium (Duoneb -) 1 amp NEB RQID [facility] Last Admin: 05/08/19 16:40 Dose: 1 amp Apixaban (Eliquis -) 5 mg PO BID [facility] Chlorhexidine Gluconate (Hibiclens For Decolonization -) 1 applic TP HS [facility] Last Admin: 05/07/19 21:44 Dose: 1 applic Furosemide (Lasix Injection -) 40 mg IVPUSH BID@0600,1400 [facility] Last Admin: 05/08/19 13:08 Dose: 40 mg Vasopressin 50 units/ Sodium (Chloride) 100 mls @ 4 mls/hr IVPB ASDIR [facility]; Protocol Last Admin: 05/08/19 11:57 Dose: Not Given Propofol (Diprivan -) 1,000,000 mcg in 100 mls @ 4.082 mls/hr IVPB TITR ELISSA; Protocol Last Admin: 05/08/19 11:56 Dose: 40 mcg/kg/min, 32.659 mls/hr Norepinephrine Bitartrate 8, 000 mcg/ Dextrose/Sodium Chloride 500 mls @ 18.75 mls/hr IV TITR ELISSA; Protocol Last Admin: 05/08/19 19:52 Dose: Not Given Piperacillin Sod/Tazobactam (Sod 3.375 gm/ Dextrose) 50 mls @ 100 mls/hr IVPB Q8H-IV [facility]ISSA; Protocol Last Admin: 05/08/19 17:18 Dose: 100 mls/hr Fentanyl 500 mcg/ Dextrose 100 mls @ 10 mls/hr IVPB TITR ELISSA; Protocol Last Admin: 05/08/19 13:05 Dose: 100 mcg/hr, 20 mls/hr Insulin Aspart (Novolog Vial Sliding Scale -) 1 vial SQ Q6H [facility]; Protocol Last Admin: 05/08/19 17:52 Dose: 6 units Methylprednisolone Sodium Succinate (Solu-Medrol -) 40 mg IVPUSH Q8H-IV [facility] Last Admin: 05/08/19 17:18 Dose: 40 mg Metoprolol Tartrate (Lopressor Injection -) 5 mg IVPUSH Q4H PRN PRN Reason: TACHYCARDIA Last Admin: 05/08/19 13:05 Dose: 5 mg Metoprolol Tartrate (Lopressor -) 25 mg PO TID [facility] Last Admin: 05/08/19 15:00 Dose: 25 mg Pantoprazole Sodium (Protonix Iv) 40 mg IVPUSH DAILY [facility] Last Admin: 05/08/19 10:01 Dose: 40 mg ASSESSMENT/PLAN: 53 y.o. 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 w/propofol, fentanyl -daily sedation vacations-- pt becomes tachy, sedation resumed #CV -Hx of A-flutter, HFpEF -A-line removed today, CVC removed today-- off pressor support -Remains tachy; continue lopressor 25mg GT TID & 5mg IV q4h PRN for rate control -heparin drip d/c'd, restarted eliquis 5mg BID via GT -Lasix drip transitioned to IV push 40mg BID -Resume lisinopril 10 qd once renal function and hyperkalemia stabilizes -Cardiology following: recs cardiac PET or MRI to exclude cardiac involvement in sarcoidosis as outpatient at [place] (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) #Pulm -Acute Hypoxic and Hypercapneic Respiratory Failure---> ARDS -Intubated, 325/50%/36/6 -CXR showing mild incr base changes -Maintain O2 sat > 90% -continue inhaled bronchodilators, solumedrol IV Q8H #Renal -RYNE resolving -monitor renal labs -lasix boluses, monitor outputs -nephro following #ID -afebrile, cxr appreciated -continuing zosyn -repeat blood cx's neg, sputum cx neg #Endo -Hx of DM -BGMs ACHS -ISS #FENLTD -no standing fluids -trend lytes replete prn -continue tube feeds -Central line removed today -A-line removed today -ortiz placed 04/30 #PPX -eliquis 5mg BID resumed today; herparin gtt d/c'd -protonix 40mg IV daily Dispo: Pending transfer to [facility] tomorrow if bed available Visit type - Emergency Visit Emergency Visit: No - New Patient This patient is new to me today: No - Critical Care Critical Care patient: Yes Total Critical Care Time (in minutes): 45 Critical Care Statement: The care of this patient involved high complexity decision making to prevent further life threatening deterioration of the patient 's condition and/or to evaluate & treat vital organ system(s) failure or risk of failure. ATTENDING PHYSICIAN STATEMENT I saw and evaluated the patient. I reviewed the resident's note and discussed the case with the resident. I agree with the resident's findings and plan as documented. SUBJECTIVE: OBJECTIVE: ASSESSMENT AND PLAN:
[2019-05-08] MEDS: APIXABAN 5 MG TABLET PO SCH (21:10)
[2019-05-08] MEDS: CHLORHEXIDINE GLUCONATE 4% CLEANSER FOR DECOLONIZATION TP SCH (21:10)
[2019-05-08] MEDS ORDERED: VANCOMYCIN 1 GRAM (PRE-DOCKED) 1,000 MG/250 ML BAG IVPB ONE (21:27)
--- NOTE | 2019-05-08 21:29 | PN ---
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, Physician History of Present Illness: REMAINS ON VENTILATOR AWAKE, ALERT FOLLOWS COMMANDS DECREASED FIO2 REQUIREMENT NO ACUTE DISTRESS AFEBRILE WBC WNL REPEAT BC NO GROWTH - Current Medication List Current Medications: Active Medications Albuterol/Ipratropium (Duoneb -) 1 amp NEB RQID [facility] Last Admin: 05/08/19 20:50 Dose: Not Given Apixaban (Eliquis -) 5 mg PO BID [facility] Last Admin: 05/08/19 21:10 Dose: 5 mg Chlorhexidine Gluconate (Hibiclens For Decolonization -) 1 applic TP HS [facility] Last Admin: 05/08/19 21:10 Dose: 1 applic Furosemide (Lasix Injection -) 40 mg IVPUSH BID@0600,1400 [facility] Last Admin: 05/08/19 13:08 Dose: 40 mg Vasopressin 50 units/ Sodium (Chloride) 100 mls @ 4 mls/hr IVPB ASDIR [facility]; Protocol Last Admin: 05/08/19 11:57 Dose: Not Given Propofol (Diprivan -) 1,000,000 mcg in 100 mls @ 4.082 mls/hr IVPB TITR [facility]IS[facility]; Protocol Last Admin: 05/08/19 11:56 Dose: 40 mcg/kg/min, 32.659 mls/hr Norepinephrine Bitartrate 8, 000 mcg/ Dextrose/Sodium Chloride 500 mls @ 18.75 mls/hr IV TITR [facility]ISSA; Protocol Last Admin: 05/08/19 19:52 Dose: Not Given Piperacillin Sod/Tazobactam (Sod 3.375 gm/ Dextrose) 50 mls @ 100 mls/hr IVPB Q8H-IV [facility]IS[facility]; Protocol Last Admin: 05/08/19 17:18 Dose: 100 mls/hr Fentanyl 500 mcg/ Dextrose 100 mls @ 10 mls/hr IVPB TITR [facility]IS[facility]; Protocol Last Admin: 05/08/19 13:05 Dose: 100 mcg/hr, 20 mls/hr Vancomycin HCl 1,000 mg/ (Dextrose) 250 mls @ 166.667 mls/hr IVPB ONCE ONE; Protocol Stop: 05/08/19 22:56 Insulin Aspart (Novolog Vial Sliding Scale -) 1 vial SQ Q6H [facility]; Protocol Last Admin: 05/08/19 17:52 Dose: 6 units Methylprednisolone Sodium Succinate (Solu-Medrol -) 40 mg IVPUSH Q8H-IV [facility] Last Admin: 05/08/19 17:18 Dose: 40 mg Metoprolol Tartrate (Lopressor Injection -) 5 mg IVPUSH Q4H PRN PRN Reason: TACHYCARDIA Last Admin: 05/08/19 13:05 Dose: 5 mg Metoprolol Tartrate (Lopressor -) 25 mg PO TID [facility] Last Admin: 05/08/19 21:10 Dose: 25 mg Pantoprazole Sodium (Protonix Iv) 40 mg IVPUSH DAILY [facility] Last Admin: 05/08/19 10:01 Dose: 40 mg - Objective Vital Signs: Vital Signs Temperature 99.1 F 05/08/19 16:00 Pulse Rate 108 H 05/08/19 19:30 Respiratory Rate 36 H 05/08/19 20:48 Blood Pressure 105/56 L 05/08/19 19:30 O2 Sat by Pulse Oximetry (%) 98 05/08/19 19:30 Constitutional: Yes: No Distress, Obese Cardiovascular: Yes: Regular Rate and Rhythm, S1, S2 Respiratory: Yes: Mechanically Ventilated Gastrointestinal: Yes: Normal Bowel Sounds, Soft Edema: Yes (DECREASED EDEMA) Labs: CBC, BMP 05/08/19 06:05 05/08/19 06:05 INR, PTT INR 1.09 (0.83-1.09) 05/05/19 05:30 Assessment/Plan ACUTE RESP FAILURE CHF/ PNEUMONIA +BC SCN, GPR ? SIGNIFICANCE RENAL FAILURE CONTINUE VENTILATORY/ HEMODYNAMIC SUPPORT CONTINUE ZOSYN REDOSE VANCOMYCIN
[2019-05-09] MEDS: methylPREDNISolone NA SUCC 40 MG/1 ML VIAL IVPUSH SCH ×3 (02:00→17:09)
[2019-05-09] MEDS: PIPERACILLIN/TAZOB 3.375 GM 3.375 GM in DEXTROSE 5%-WATER - 50 ML IVPB SCH ×3 (02:00→17:09)
[2019-05-09] MEDS ORDERED: fentaNYL CITRATE 250 MCG/5 ML VIAL ONE (03:47)
[2019-05-09] MEDS: FUROSEMIDE 40 MG/4 ML INJECTABLE VIAL IVPUSH SCH (06:19)
[2019-05-09] MEDS: METOPROLOL TARTRATE 25 MG TABLET (FP) PO SCH (06:19)
[2019-05-09] MEDS: INSULIN SLIDING SCALE (NOVOLOG) 1 VIAL SQ SCH ×4 (06:21→17:48)
[2019-05-09 07:01] LABS: BASO % 0.1 % (0-2.0); EOS % 0.1 % (0-4.5); HEMATOCRIT 36.3 % (35.4-49); HEMOGLOBIN 11.1 GM/dL (11.7-16.9); LYMPH % 5.4 % (8-40); MCH 23.9 pg (25.7-33.7); MCHC 30.5 g/dl (32.0-35.9); MEAN CELL VOLUME 78.5 fl (80-96); MEAN PLT VOLUME 8.9 fl (7.5-11.1); MONO % 12.8 % (3.8-10.2); NEUT % 81.6 % (42.8-82.8); PLATELET COUNT 276 K/MM3 (134-434); RBC 4.62 M/mm3 (4.00-5.60); RDW 19.8 % (11.9-15.9); WHITE BLOOD COUNT 8.6 K/mm3 (4.0-10.0)
[2019-05-09] MEDS: ALBUTEROL SO4 2.5/IPRATROPIUM 0.5 INH SOL 3 ML VIAL.NEB. NEB SCH ×4 (07:35→20:50)
[2019-05-09 07:38] LABS: ALBUMIN 2.6 g/dl (3.4-5.0); BILIRUBIN,TOTAL 0.4 mg/dL (0.2-1); BLOOD UREA NITROGEN 82.1 mg/dL (7-18); CALCIUM 8.9 mg/dL (8.5-10.1); CREATININE 1.9 mg/dL (0.55-1.3); MAGNESIUM 2.5 mg/dL (1.8-2.4); PHOSPHOROUS 4.2 mg/dL (2.5-4.9); TOT PROT 6.3 g/dl (6.4-8.2)
--- NOTE | 2019-05-09 08:20 | PN ---
Physical Exam: SUBJECTIVE: Patient seen and examined NAEON. Patient intubated and on ventilator. OBJECTIVE: Vital Signs Period Temp Pulse Resp BP Sys/[place] Pulse Ox Last 24 Hr 98.5 F-99.1 F 98-141 22-37 90-123/50-74 95-98 GENERAL: Intubated, on ventilator HEAD: Normal with no signs of trauma. EYES: PERRL ENT: Ears normal, nares patent, oropharynx clear without exudates NECK: Trachea midline LUNGS: Breath sounds equal, clear to auscultation bilaterally HEART: Tachycardic, irregularly irregular ABDOMEN: Soft, nontender, nondistended EXTREMITIES: 2+ pulses, warm, well-perfused, no edema NEUROLOGICAL: intubated, on ventilator SKIN: Warm, dry Laboratory Results - last 24 hr 05/08/19 05/08/19 05/08/19 06:05 08:26 11:47 WBC RBC Hgb Hct MCV MCH MCHC RDW Plt Count MPV Absolute Neuts (auto) Neutrophils % Neutrophils % (Manual) 96.9 H Band Neutrophils % 0.0 Lymphocytes % Lymphocytes % (Manual) 0.0 L Monocytes % Monocytes % (Manual) 2 L Eosinophils % Eosinophils % (Manual) 0.0 Basophils % Basophils % (Manual) 0.0 Myelocytes % (Man) 0 Promyelocytes % (Man) 0 Blast Cells % (Manual) 0 D Nucleated RBC % 1 H Metamyelocytes 0 Hypochromia 0 Toxic Granulation 2+ Platelet Estimate Normal Platelet Comment Present Polychromasia 0 Poikilocytosis 1+ Anisocytosis 1+ Microcytosis 1+ Macrocytosis 0 Spherocytes 1+ Target Cells 1+ Tear Drop Cells 1+ Ovalocytes 1+ Acanthocytes (Spur) 1+ PTT (Actin FS) Sodium Potassium Chloride Carbon Dioxide Anion Gap BUN Creatinine Est GFR (CKD-EPI)AfAm Est GFR (CKD-EPI)NonAf POC Glucometer 211 184 Random Glucose Calcium Phosphorus Magnesium Total Bilirubin AST ALT Alkaline Phosphatase Total Protein Albumin Random Vancomycin 05/08/19 05/08/19 05/09/19 16:50 23:44 05:24 WBC RBC Hgb Hct MCV MCH MCHC RDW Plt Count MPV Absolute Neuts (auto) Neutrophils % Neutrophils % (Manual) Band Neutrophils % Lymphocytes % Lymphocytes % (Manual) Monocytes % Monocytes % (Manual) Eosinophils % Eosinophils % (Manual) Basophils % Basophils % (Manual) Myelocytes % (Man) Promyelocytes % (Man) Blast Cells % (Manual) Nucleated RBC % Metamyelocytes Hypochromia Toxic Granulation Platelet Estimate Platelet Comment Polychromasia Poikilocytosis Anisocytosis Microcytosis Macrocytosis Spherocytes Target Cells Tear Drop Cells Ovalocytes Acanthocytes (Spur) PTT (Actin FS) Sodium Potassium Chloride Carbon Dioxide Anion Gap BUN Creatinine Est GFR (CKD-EPI)AfAm Est GFR (CKD-EPI)NonAf POC Glucometer 268 302 Random Glucose Calcium Phosphorus Magnesium Total Bilirubin AST ALT Alkaline Phosphatase Total Protein Albumin Random Vancomycin 15.7 L 05/09/19 05/09/19 05/09/19 05:24 05:24 05:24 WBC 8.6 RBC 4.62 Hgb 11.1 L Hct 36.3 MCV 78.5 L MCH 23.9 L MCHC 30.5 L RDW 19.8 H Plt Count 276 MPV 8.9 Absolute Neuts (auto) 7.0 Neutrophils % 81.6 Neutrophils % (Manual) Band Neutrophils % Lymphocytes % 5.4 L D Lymphocytes % (Manual) Monocytes % 12.8 H D Monocytes % (Manual) Eosinophils % 0.1 Eosinophils % (Manual) Basophils % 0.1 Basophils % (Manual) Myelocytes % (Man) Promyelocytes % (Man) Blast Cells % (Manual) Nucleated RBC % 0 Metamyelocytes Hypochromia Toxic Granulation Platelet Estimate Platelet Comment Polychromasia Poikilocytosis Anisocytosis Microcytosis Macrocytosis Spherocytes Target Cells Tear Drop Cells Ovalocytes Acanthocytes (Spur) PTT (Actin FS) 27.9 Sodium 145 Potassium 4.0 Chloride 104 Carbon Dioxide 32 Anion Gap 8 BUN 82.1 H Creatinine 1.9 H Est GFR (CKD-EPI)AfAm 46.28 Est GFR (CKD-EPI)NonAf 39.93 POC Glucometer Random Glucose 297 H Calcium 8.9 Phosphorus 4.2 Magnesium 2.5 H Total Bilirubin 0.4 AST 33 ALT 56 Alkaline Phosphatase 93 Total Protein 6.3 L Albumin 2.6 L Random Vancomycin 05/09/19 06:02 WBC RBC Hgb Hct MCV MCH MCHC RDW Plt Count MPV Absolute Neuts (auto) Neutrophils % Neutrophils % (Manual) Band Neutrophils % Lymphocytes % Lymphocytes % (Manual) Monocytes % Monocytes % (Manual) Eosinophils % Eosinophils % (Manual) Basophils % Basophils % (Manual) Myelocytes % (Man) Promyelocytes % (Man) Blast Cells % (Manual) Nucleated RBC % Metamyelocytes Hypochromia Toxic Granulation Platelet Estimate Platelet Comment Polychromasia Poikilocytosis Anisocytosis Microcytosis Macrocytosis Spherocytes Target Cells Tear Drop Cells Ovalocytes Acanthocytes (Spur) PTT (Actin FS) Sodium Potassium Chloride Carbon Dioxide Anion Gap BUN Creatinine Est GFR (CKD-EPI)AfAm Est GFR (CKD-EPI)NonAf POC Glucometer 285 Random Glucose Calcium Phosphorus Magnesium Total Bilirubin AST ALT Alkaline Phosphatase Total Protein Albumin Random Vancomycin Active Medications Generic Name Dose Route Start Last Admin Trade Name Freq PRN Reason Stop Dose Admin Albuterol/Ipratropium 1 amp 04/30/19 16:00 05/08/19 20:50 Duoneb - NEB Not Given RQID ELISSA Apixaban 5 mg 05/08/19 22:00 05/08/19 21:10 Eliquis - PO 5 mg BID ELISSA Administration Chlorhexidine Gluconate 1 applic 04/30/19 22:00 05/08/19 21:10 Hibiclens For Decolonization - TP 1 applic HS ELISSA Administration Furosemide 40 mg 05/08/19 14:00 05/09/19 06:19 Lasix Injection - IVPUSH 40 mg BID@0600,1400 [facility] Administration Vasopressin 50 units/ Sodium 100 mls @ 4 mls/hr 04/30/19 09:30 05/08/19 11:57 Chloride IVPB Not Given ASDIR [facility]IS[facility] Protocol 2 UNITS/HR Propofol 1,000,000 mcg in 100 mls @ 4.082 mls/hr 04/30/19 10:15 05/08/19 11: 56 Diprivan - IVPB 40 mcg/kg/min TITR ELISSA 32.659 mls/hr Administration Protocol 5 MCG/KG/MIN Norepinephrine Bitartrate 8, 500 mls @ 18.75 mls/hr 04/30/19 14:00 05/08/19 19:52 000 mcg/ Dextrose/Sodium IV Not Given Chloride TITR ELISSA Protocol 5 MCG/MIN Piperacillin Sod/Tazobactam 50 mls @ 100 mls/hr 05/01/19 18:00 05/09/19 02:00 Sod 3.375 gm/ Dextrose IVPB 100 mls/hr Q8H-IV [facility]ISSA Administration Protocol Fentanyl 500 mcg/ Dextrose 100 mls @ 10 mls/hr 05/01/19 12:45 05/08/19 13:05 IVPB 100 mcg/hr TITR ELISSA 20 mls/hr Administration Protocol 50 MCG/HR Insulin Aspart 1 vial 05/08/19 12:15 05/09/19 06:21 Novolog Vial Sliding Scale - SQ 6 units Q6H ELISSA Administration Protocol Methylprednisolone Sodium Succinate 40 mg 05/02/19 14:05 05/09/19 02:00 Solu-Medrol - IVPUSH 40 mg Q8H-IV ELISSA Administration Metoprolol Tartrate 5 mg 04/30/19 08:57 05/08/19 13:05 Lopressor Injection - IVPUSH 5 mg Q4H PRN Administration TACHYCARDIA Metoprolol Tartrate 25 mg 05/08/19 14:00 05/09/19 06:19 Lopressor - PO 25 mg TID ELISSA Administration Pantoprazole Sodium 40 mg 05/01/19 10:00 05/08/19 10:01 Protonix Iv IVPUSH 40 mg DAILY [facility]SA Administration ASSESSMENT/PLAN: 53 yo M PMH T2DM, HFpEF (last EF: 45-50%), EMMY (non-adherent to CPAP) and atrial flutter w/ acute hypoxic hypercapnic resp failure consistent with ARDS. 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: - patient with wean trial in the AM - successfully extubated - sluggishly responds to commands but is not speaking or tracking yet - ctm CV: - hx of A-flutter, HFpEF - A-line removed yesterday - CVC removed yesterday - Remains tachy; continue lopressor 25mg GT TID & 5mg IV q4h PRN for rate control - added diltiazem 5mg PRN Q4h - heparin drip d/c'd, restarted eliquis 5mg BID via GT - Lasix drip transitioned to IV push 40mg BID, held this morning in s/o low BPs , restarted in afternoon - Resume lisinopril 10 qd once renal function and hyperkalemia stabilizes - Cardiology following: recs cardiac PET or MRI to exclude cardiac involvement in sarcoidosis as outpatient at [facility] (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) Respiratory: - acute hypoxic and hypercapneic Respiratory Failure---> ARDS - currently on high flow at 50/50 - Maintain O2 sat > 90% - continue inhaled bronchodilators, solumedrol IV Q8H Renal: - RYNE resolving - monitor renal labs - lasix boluses PRN, monitor outputs - repeat ABG after extubation with pH of 7.35 - nephro following ID: - afebrile - continuing zosyn - repeat blood cx's neg, sputum cx neg Endo: - hx of DM - BGMs ACHS - ISS FENLTD: - no standing fluids - trend lytes replete prn - continue tube feeds - Andrews placed 04/30 PPX: - Eliquis 5mg BID - Protonix 40mg IV daily Dispo: - no longer planned for transfer to [facility] - closely monitor mental status Visit type - Emergency Visit Emergency Visit: Yes ED Registration Date: 04/30/19 Care time: The patient presented to the Emergency Department on the above date and was hospitalized for further evaluation of their emergent condition. - New Patient This patient is new to me today: Yes Date on this admission: 05/09/19 - Critical Care Critical Care patient: Yes Total Critical Care Time (in minutes): 60 Critical Care Statement: The care of this patient involved high complexity decision making to prevent further life threatening deterioration of the patient 's condition and/or to evaluate & treat vital organ system(s) failure or risk of failure. ATTENDING PHYSICIAN STATEMENT I saw and evaluated the patient. I reviewed the resident's note and discussed the case with the resident. I agree with the resident's findings and plan as documented. SUBJECTIVE: OBJECTIVE: ASSESSMENT AND PLAN:
[2019-05-09] MEDS ORDERED: DEXTROSE 5%-WATER - 50 ML IVPB ONE ×2 (08:52→14:56)
[2019-05-09] MEDS ORDERED: PIPERACILLIN/TAZOBACTAM 3.375 GM VIAL IVPB ONE ×2 (08:52→14:56)
[2019-05-09] MEDS: VASOPRESSIN 50 UNITS in SODIUM CHLORIDE 97.5 ML IVPB SCH (10:03)
--- NOTE | 2019-05-09 10:05 | PN ---
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, Physician History of Present Illness: Extubated on HFO2, rapid afib, undergoing diuresis. Remains off pressors. - Current Medication List Current Medications: Active Medications Albuterol/Ipratropium (Duoneb -) 1 amp NEB RQID [facility] Last Admin: 05/09/19 07:35 Dose: 1 amp Apixaban (Eliquis -) 5 mg PO BID [facility]IS[facility] Last Admin: 05/08/19 21:10 Dose: 5 mg Chlorhexidine Gluconate (Hibiclens For Decolonization -) 1 applic TP HS [facility]ISSA Last Admin: 05/08/19 21:10 Dose: 1 applic Ferrous Sulfate (Feosol) 300 mg NGT BID [facility]ISSA Furosemide (Lasix Injection -) 40 mg IVPUSH BID@0600,1400 [facility] Last Admin: 05/09/19 06:19 Dose: 40 mg Vasopressin 50 units/ Sodium (Chloride) 100 mls @ 4 mls/hr IVPB ASDIR ELISSA; Protocol Last Admin: 05/08/19 11:57 Dose: Not Given Propofol (Diprivan -) 1,000,000 mcg in 100 mls @ 4.082 mls/hr IVPB TITR ELISSA; Protocol Last Admin: 05/08/19 11:56 Dose: 40 mcg/kg/min, 32.659 mls/hr Norepinephrine Bitartrate 8, 000 mcg/ Dextrose/Sodium Chloride 500 mls @ 18.75 mls/hr IV TITR ELISSA; Protocol Last Admin: 05/08/19 19:52 Dose: Not Given Piperacillin Sod/Tazobactam (Sod 3.375 gm/ Dextrose) 50 mls @ 100 mls/hr IVPB Q8H-IV ELISSA; Protocol Last Admin: 05/09/19 02:00 Dose: 100 mls/hr Fentanyl 500 mcg/ Dextrose 100 mls @ 10 mls/hr IVPB TITR ELISSA; Protocol Last Admin: 05/08/19 13:05 Dose: 100 mcg/hr, 20 mls/hr Insulin Aspart (Novolog Vial Sliding Scale -) 1 vial SQ Q6H ELISSA; Protocol Last Admin: 05/09/19 06:21 Dose: 6 units Methylprednisolone Sodium Succinate (Solu-Medrol -) 40 mg IVPUSH Q8H-IV [facility] Last Admin: 05/09/19 02:00 Dose: 40 mg Metoprolol Tartrate (Lopressor Injection -) 5 mg IVPUSH Q4H PRN PRN Reason: TACHYCARDIA Last Admin: 05/08/19 13:05 Dose: 5 mg Metoprolol Tartrate (Lopressor -) 25 mg PO TID [facility] Last Admin: 05/09/19 06:19 Dose: 25 mg Pantoprazole Sodium (Protonix Iv) 40 mg IVPUSH DAILY [facility] Last Admin: 05/08/19 10:01 Dose: 40 mg - Objective Vital Signs: Vital Signs Temperature 99.1 F 05/09/19 06:59 Pulse Rate 103 H 05/09/19 09:00 Respiratory Rate 36 H 05/09/19 09:15 Blood Pressure 93/52 L 05/09/19 09:00 O2 Sat by Pulse Oximetry (%) 91 L 05/09/19 09:15 Constitutional: Yes: No Distress, Calm Neck: Yes: Supple Cardiovascular: Yes: Tachycardia, Pulse Irregular Respiratory: Yes: Regular, Diminished, On Nasal O2 (HFO2) Gastrointestinal: Yes: Normal Bowel Sounds, Soft, Abdomen, Obese Genitourinary: Yes: Andrews Present Edema: No Labs: CBC, BMP 05/09/19 05:24 05/09/19 05:24 INR, PTT INR 1.09 (0.83-1.09) 05/05/19 05:30 - ....Imaging Chest X-ray: Report Reviewed (Left base changes and congestion) Problem List - Problems (1) Pneumonia Code(s): J18.9 - PNEUMONIA, UNSPECIFIED ORGANISM Qualifiers: Pneumonia type: due to unspecified organism (2) Acute hypercapnic respiratory failure due to obstructive sleep apnea Code(s): J96.02 - ACUTE RESPIRATORY FAILURE WITH HYPERCAPNIA; G47.33 - OBSTRUCTIVE SLEEP APNEA (ADULT) (PEDIATRIC) (3) Acute decompensated heart failure Code(s): I50.9 - HEART FAILURE, UNSPECIFIED (4) Acute renal failure Code(s): N17.9 - ACUTE KIDNEY FAILURE, UNSPECIFIED Qualifiers: Acute renal failure type: unspecified Qualified Code(s): N17.9 - Acute kidney failure, unspecified (5) Sarcoidosis of other sites Code(s): D86.89 - SARCOIDOSIS OF OTHER SITES (6) Type 2 diabetes mellitus Code(s): E11.9 - TYPE 2 DIABETES MELLITUS WITHOUT COMPLICATIONS Qualifiers: Diabetes mellitus prison insulin use: without prison use Diabetes mellitus complication detail: with chronic kidney disease Chronic kidney disease stage: stage 2 (mild) (7) Atrial fibrillation and flutter Code(s): I48.91 - UNSPECIFIED ATRIAL FIBRILLATION; I48.92 - UNSPECIFIED ATRIAL FLUTTER Assessment/Plan 05/01/2019 Normal LV and RV size and fxn, tr TR 03/14/2019 Normal LV size and fxn, no thrombus ADEEL, mild-mod dilated and HK RV, tr MR, mild-mod TR, tr MS, trace pericardial effusion 1. Acute hypoxic and hypercapneic respiratory failure on mechanical ventilation 2. Pneumonia, post septic shock, Gram Positive Bacteremia, ARDS 3. Sarcoidosis confirmed by skin biopsy, r/o cardiac involvement 4. OSAS nonadherent to cpap 5. Paroxysmal Aflutter/Afib with RVR 6. Acute on chronic diastolic heart failure 7. Acute on CKD with hyperkalemia resolving 8. Type 2 DM 9. Anemia P:1. Empiric abx f/u C&S, IV steroid taper with GI protection, BD, enteral feeds 2. Remains off vasopressin and Levophed gtt for MAP>65 mmHg 3. Vent management per ABG, ARDS protocol and off paralysis 4. Rate-control with oral and IV Lopressor with uptitration as hemodynamics tolerate, eliquis 5 bid, may place on cardizem gtt for further rate-control 5. Lasix 40 IV bid with monitor diuretic response, renal fxn and electrolytes 6. Resume lisinopril 10 qd once renal function and hyperkalemia stabilizes 7. He f/u with Dr. Genaro Davila (cardiology at [place]), cardiac PET or MRI to exclude cardiac involvement in sarcoidosis as outpatient
[2019-05-09] MEDS: PANTOPRAZOLE SODIUM 40 MG VIAL IVPUSH SCH (10:06)
[2019-05-09] MEDS: APIXABAN 5 MG TABLET PO SCH ×2 (10:06→21:23)
[2019-05-09] MEDS: FERROUS SO4 300 MG/5 ML ORAL SOLN UNIT DOSE CUPS NGT SCH ×2 (10:45→21:23)
--- NOTE | 2019-05-09 11:15 | PN ---
Teaching Attending Note Name of Resident: Tray Cardoza ATTENDING PHYSICIAN STATEMENT I saw and evaluated the patient. I reviewed the resident's note and discussed the case with the resident. I agree with the resident's findings and plan as documented. SUBJECTIVE: Patient seen and examined in the ICU. Remains intubated and sedated. AC Mode of vent, 50% FiO2 and PEEP 6. Off pressors. CXR: No change Intake & Output 05/06/19 05/07/19 05/08/19 05/09/19 23:59 23:59 23:59 23:59 Intake Total 3236 3510 3230 1480 Output Total 3820 3500 4900 600 Balance -584 10 -1670 880 Weight 297 lb 3.2 oz 288 lb 11.2 oz Last Vital Signs Temp Pulse Resp BP Pulse Ox 99.1 F 133 H 36 H 128/74 91 L 05/09/19 06:59 05/09/19 10:03 05/09/19 09:15 05/09/19 10:03 05/09/19 09:15 Active Medications Albuterol/Ipratropium (Duoneb -) 1 amp NEB RQID [facility] Last Admin: 05/09/19 07:35 Dose: 1 amp Apixaban (Eliquis -) 5 mg PO BID [facility] Last Admin: 05/09/19 10:06 Dose: 5 mg Chlorhexidine Gluconate (Hibiclens For Decolonization -) 1 applic TP HS [facility] Last Admin: 05/08/19 21:10 Dose: 1 applic Ferrous Sulfate (Feosol) 300 mg NGT BID [facility] Last Admin: 05/09/19 10:45 Dose: 300 mg Furosemide (Lasix Injection -) 40 mg IVPUSH BID@0600,1400 [facility] Last Admin: 05/09/19 06:19 Dose: 40 mg Vasopressin 50 units/ Sodium (Chloride) 100 mls @ 4 mls/hr IVPB ASDIR [facility]; Protocol Last Admin: 05/09/19 10:03 Dose: Not Given Propofol (Diprivan -) 1,000,000 mcg in 100 mls @ 4.082 mls/hr IVPB TITR [facility]; Protocol Last Admin: 05/08/19 11:56 Dose: 40 mcg/kg/min, 32.659 mls/hr Norepinephrine Bitartrate 8, 000 mcg/ Dextrose/Sodium Chloride 500 mls @ 18.75 mls/hr IV TITR ELISSA; Protocol Last Admin: 05/08/19 19:52 Dose: Not Given Piperacillin Sod/Tazobactam (Sod 3.375 gm/ Dextrose) 50 mls @ 100 mls/hr IVPB Q8H-IV [facility]ISSA; Protocol Last Admin: 05/09/19 10:05 Dose: 100 mls/hr Fentanyl 500 mcg/ Dextrose 100 mls @ 10 mls/hr IVPB TITR [facility]ISSA; Protocol Last Admin: 05/08/19 13:05 Dose: 100 mcg/hr, 20 mls/hr Insulin Aspart (Novolog Vial Sliding Scale -) 1 vial SQ Q6H [facility]; Protocol Last Admin: 05/09/19 06:21 Dose: 6 units Methylprednisolone Sodium Succinate (Solu-Medrol -) 40 mg IVPUSH Q8H-IV [facility] Last Admin: 05/09/19 10:06 Dose: 40 mg Metoprolol Tartrate (Lopressor Injection -) 5 mg IVPUSH Q4H PRN PRN Reason: TACHYCARDIA Last Admin: 05/08/19 13:05 Dose: 5 mg Metoprolol Tartrate (Lopressor -) 25 mg PO TID [facility] Last Admin: 05/09/19 06:19 Dose: 25 mg Pantoprazole Sodium (Protonix Iv) 40 mg IVPUSH DAILY [facility] Last Admin: 05/09/19 10:06 Dose: 40 mg Gen: intubated, sedated Heart: tachy, irreg, s1S2 Lung: Vented, bilateral rhonchi Abd: soft, nontender Ext:+1 edema improved [employer]: fully sedated Laboratory Results - last 24 hr 05/08/19 05/08/19 05/08/19 06:05 11:47 16:50 WBC RBC Hgb Hct MCV MCH MCHC RDW Plt Count MPV Absolute Neuts (auto) Neutrophils % Neutrophils % (Manual) 96.9 H Band Neutrophils % 0.0 Lymphocytes % Lymphocytes % (Manual) 0.0 L Monocytes % Monocytes % (Manual) 2 L Eosinophils % Eosinophils % (Manual) 0.0 Basophils % Basophils % (Manual) 0.0 Myelocytes % (Man) 0 Promyelocytes % (Man) 0 Blast Cells % (Manual) 0 D Nucleated RBC % 1 H Metamyelocytes 0 Hypochromia 0 Toxic Granulation 2+ Platelet Estimate Normal Platelet Comment Present Polychromasia 0 Poikilocytosis 1+ Anisocytosis 1+ Microcytosis 1+ Macrocytosis 0 Spherocytes 1+ Target Cells 1+ Tear Drop Cells 1+ Ovalocytes 1+ Acanthocytes (Spur) 1+ PTT (Actin FS) Sodium Potassium Chloride Carbon Dioxide Anion Gap BUN Creatinine Est GFR (CKD-EPI)AfAm Est GFR (CKD-EPI)NonAf POC Glucometer 184 268 Random Glucose Calcium Phosphorus Magnesium Total Bilirubin AST ALT Alkaline Phosphatase Total Protein Albumin Random Vancomycin 05/08/19 05/09/19 05/09/19 23:44 05:24 05:24 WBC RBC Hgb Hct MCV MCH MCHC RDW Plt Count MPV Absolute Neuts (auto) Neutrophils % Neutrophils % (Manual) Band Neutrophils % Lymphocytes % Lymphocytes % (Manual) Monocytes % Monocytes % (Manual) Eosinophils % Eosinophils % (Manual) Basophils % Basophils % (Manual) Myelocytes % (Man) Promyelocytes % (Man) Blast Cells % (Manual) Nucleated RBC % Metamyelocytes Hypochromia Toxic Granulation Platelet Estimate Platelet Comment Polychromasia Poikilocytosis Anisocytosis Microcytosis Macrocytosis Spherocytes Target Cells Tear Drop Cells Ovalocytes Acanthocytes (Spur) PTT (Actin FS) 27.9 Sodium Potassium Chloride Carbon Dioxide Anion Gap BUN Creatinine Est GFR (CKD-EPI)AfAm Est GFR (CKD-EPI)NonAf POC Glucometer 302 Random Glucose Calcium Phosphorus Magnesium Total Bilirubin AST ALT Alkaline Phosphatase Total Protein Albumin Random Vancomycin 15.7 L 05/09/19 05/09/19 05/09/19 05:24 05:24 06:02 WBC 8.6 RBC 4.62 Hgb 11.1 L Hct 36.3 MCV 78.5 L MCH 23.9 L MCHC 30.5 L RDW 19.8 H Plt Count 276 MPV 8.9 Absolute Neuts (auto) 7.0 Neutrophils % 81.6 Neutrophils % (Manual) Band Neutrophils % Lymphocytes % 5.4 L D Lymphocytes % (Manual) Monocytes % 12.8 H D Monocytes % (Manual) Eosinophils % 0.1 Eosinophils % (Manual) Basophils % 0.1 Basophils % (Manual) Myelocytes % (Man) Promyelocytes % (Man) Blast Cells % (Manual) Nucleated RBC % 0 Metamyelocytes Hypochromia Toxic Granulation Platelet Estimate Platelet Comment Polychromasia Poikilocytosis Anisocytosis Microcytosis Macrocytosis Spherocytes Target Cells Tear Drop Cells Ovalocytes Acanthocytes (Spur) PTT (Actin FS) Sodium 145 Potassium 4.0 Chloride 104 Carbon Dioxide 32 Anion Gap 8 BUN 82.1 H Creatinine 1.9 H Est GFR (CKD-EPI)AfAm 46.28 Est GFR (CKD-EPI)NonAf 39.93 POC Glucometer 285 Random Glucose 297 H Calcium 8.9 Phosphorus 4.2 Magnesium 2.5 H Total Bilirubin 0.4 AST 33 ALT 56 Alkaline Phosphatase 93 Total Protein 6.3 L Albumin 2.6 L Random Vancomycin ASSESSMENT AND PLAN: Acute Hypoxic and Hypercapneic Respiratory Failure due to ARDS Pneumonia Gram Positive Bacteremia Septic Shock Volume Overload Lactic Acidosis Hyperkalemia Acute Kidney Injury Atrial Flutter with RVR HTN DM Anemia - Wean to extubate - ABX per ID - Keep Pplat <30 - Monitor urine output, creatinine - Monitor lytes - Medrol - Inhaled bronchodilators - Rate control - Continue anticoagulation - DVT/GI prophylaxis - continue ICU monitoring - prognosis guarded Dr Maya Critical care time spent in reviewing chart, evaluating patient and formulating plan - 36 minutes.
[2019-05-09] MEDS: METOPROLOL TARTRATE 5 MG/5 ML VIAL IVPUSH PRN ×3 (11:44→22:13)
[2019-05-09] MEDS: PROPOFOL 1,000,000 MCG/100 ML VIAL IVPB SCH (11:44)
[2019-05-09] MEDS: FENTANYL INJECTION 500 MCG in DEXTROSE 5%-WATER - 90 ML IVPB SCH (12:09)
[2019-05-09 13:49] LABS: ARTERIAL BLOOD GAS BASE EXCESS 7.1 meq/l (-2-2); ARTERIAL BLOOD GAS PCO2 62.9 mmHg (35-45); ARTERIAL BLOOD GAS pH 7.35 (7.35-7.45)
[2019-05-09] MEDS: NORMAL SALINE IV SCH (14:08)
[2019-05-09] MEDS: DEXTROSE 5% IV SCH (14:08)
[2019-05-09] MEDS: NOREPINEPHRINE BITARTRATE IV SCH (14:08)
[2019-05-09] MEDS ORDERED: VANCOMYCIN 1 GRAM (PRE-DOCKED) 1,000 MG/250 ML BAG IVPB ONE (14:35)
--- NOTE | 2019-05-09 14:35 | PN ---
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, Physician History of Present Illness: AWAKE, ALERT ON VENTILATOR DECREASED FIO2 REQUIREMENT NO ACUTE DISTRESS AFEBRILE WBC WNL REPEAT BC NO GROWTH - Current Medication List Current Medications: Active Medications Albuterol/Ipratropium (Duoneb -) 1 amp NEB RQID [facility] Last Admin: 05/09/19 11:10 Dose: 1 amp Apixaban (Eliquis -) 5 mg PO BID [facility] Last Admin: 05/09/19 10:06 Dose: 5 mg Chlorhexidine Gluconate (Hibiclens For Decolonization -) 1 applic TP HS [facility] Last Admin: 05/08/19 21:10 Dose: 1 applic Ferrous Sulfate (Feosol) 300 mg NGT BID [facility] Last Admin: 05/09/19 10:45 Dose: 300 mg Furosemide (Lasix Injection -) 40 mg IVPUSH BID@0600,1400 [facility] Last Admin: 05/09/19 06:19 Dose: 40 mg Vasopressin 50 units/ Sodium (Chloride) 100 mls @ 4 mls/hr IVPB ASDIR [facility]; Protocol Last Admin: 05/09/19 10:03 Dose: Not Given Propofol (Diprivan -) 1,000,000 mcg in 100 mls @ 4.082 mls/hr IVPB TITR [facility]; Protocol Last Admin: 05/09/19 11:44 Dose: Not Given Norepinephrine Bitartrate 8, 000 mcg/ Dextrose/Sodium Chloride 500 mls @ 18.75 mls/hr IV TITR [facility]; Protocol Last Admin: 05/08/19 19:52 Dose: Not Given Piperacillin Sod/Tazobactam (Sod 3.375 gm/ Dextrose) 50 mls @ 100 mls/hr IVPB Q8H-IV [facility]; Protocol Last Admin: 05/09/19 10:05 Dose: 100 mls/hr Fentanyl 500 mcg/ Dextrose 100 mls @ 10 mls/hr IVPB TITR [facility]SA; Protocol Last Admin: 05/08/19 13:05 Dose: 100 mcg/hr, 20 mls/hr Insulin Aspart (Novolog Vial Sliding Scale -) 1 vial SQ Q6H [facility]; Protocol Last Admin: 05/09/19 11:58 Dose: 8 units Methylprednisolone Sodium Succinate (Solu-Medrol -) 40 mg IVPUSH Q8H-IV [facility] Last Admin: 05/09/19 10:06 Dose: 40 mg Metoprolol Tartrate (Lopressor Injection -) 5 mg IVPUSH Q4H PRN PRN Reason: TACHYCARDIA Last Admin: 05/09/19 11:44 Dose: 5 mg Metoprolol Tartrate (Lopressor -) 25 mg PO TID [facility] Last Admin: 05/09/19 06:19 Dose: 25 mg Pantoprazole Sodium (Protonix Iv) 40 mg IVPUSH DAILY [facility] Last Admin: 05/09/19 10:06 Dose: 40 mg - Objective Vital Signs: Vital Signs Temperature 99.1 F 05/09/19 06:59 Pulse Rate 147 H 05/09/19 11:44 Respiratory Rate 36 H 05/09/19 09:15 Blood Pressure 125/70 05/09/19 11:44 O2 Sat by Pulse Oximetry (%) 91 L 05/09/19 09:15 Constitutional: Yes: No Distress, Obese Cardiovascular: Yes: Regular Rate and Rhythm, S1, S2 Respiratory: Yes: Mechanically Ventilated Gastrointestinal: Yes: Normal Bowel Sounds, Soft, Abdomen, Obese. No: Tenderness Edema: Yes Labs: CBC, BMP 05/09/19 05:24 05/09/19 05:24 INR, PTT INR 1.09 (0.83-1.09) 05/05/19 05:30 Assessment/Plan ACUTE RESP FAILURE CHF/ PNEUMONIA +BC SCN, GPR ? SIGNIFICANCE RENAL FAILURE CONTINUE VENTILATORY/ HEMODYNAMIC SUPPORT CONTINUE ZOSYN REDOSE VANCOMYCIN COMPLETE 10D COURSE VANCOMYCIN
--- NOTE | 2019-05-09 15:17 | PN ---
Physical Exam: SUBJECTIVE: Patient seen and examined. No acute events overnight. Patient awake off sedation but poorly responsive, extubated by ICU today. OBJECTIVE: Vital Signs Period Temp Pulse Resp BP Sys/[place] Pulse Ox Last 24 Hr 98.9 F-99.1 F 98-147 22-37 86-128/50-74 91-98 GENERAL: awake, poorly alert HEAD: Normal with no signs of trauma. EYES: PERRL, EOMI ENT: dry mucous membranes NECK: Trachea midline, supple, Left IJ in place LUNGS: diminished breath sounds at bases, no accessory muscle use HEART: tachycardic ABDOMEN: obese, soft, nontender, decreased bowel sounds EXTREMITIES: 2+ pulses, warm, well-perfused. 1+ non pitting edema bilateral lower extremities NEUROLOGICAL: poorly responsive, intermittently able to follow commands, staring at ceiling, will make poor eye contact with direct physical and verbal stimuli SKIN: Warm, dry, normal turgor Laboratory Results - last 24 hr 05/08/19 05/08/19 05/09/19 16:50 23:44 05:24 WBC RBC Hgb Hct MCV MCH MCHC RDW Plt Count MPV Absolute Neuts (auto) Neutrophils % Lymphocytes % Monocytes % Eosinophils % Basophils % Nucleated RBC % PTT (Actin FS) Anticoagulation Therapy ABG pH ABG pCO2 at Pt Temp ABG pO2 at Pt Temp ABG HCO3 ABG O2 Sat (Measured) ABG O2 Content ABG Base Excess O2 Delivery Device Oxygen Flow Rate Vent Mode Vent Rate Mechanical Rate Pressure Support Vent Sodium Potassium Chloride Carbon Dioxide Anion Gap BUN Creatinine Est GFR (CKD-EPI)AfAm Est GFR (CKD-EPI)NonAf POC Glucometer 268 302 Random Glucose Calcium Phosphorus Magnesium Total Bilirubin AST ALT Alkaline Phosphatase Total Protein Albumin Random Vancomycin 15.7 L 05/09/19 05/09/19 05/09/19 05:24 05:24 05:24 WBC 8.6 RBC 4.62 Hgb 11.1 L Hct 36.3 MCV 78.5 L MCH 23.9 L MCHC 30.5 L RDW 19.8 H Plt Count 276 MPV 8.9 Absolute Neuts (auto) 7.0 Neutrophils % 81.6 Lymphocytes % 5.4 L D Monocytes % 12.8 H D Eosinophils % 0.1 Basophils % 0.1 Nucleated RBC % 0 PTT (Actin FS) 27.9 Anticoagulation Therapy ABG pH ABG pCO2 at Pt Temp ABG pO2 at Pt Temp ABG HCO3 ABG O2 Sat (Measured) ABG O2 Content ABG Base Excess O2 Delivery Device Oxygen Flow Rate Vent Mode Vent Rate Mechanical Rate Pressure Support Vent Sodium 145 Potassium 4.0 Chloride 104 Carbon Dioxide 32 Anion Gap 8 BUN 82.1 H Creatinine 1.9 H Est GFR (CKD-EPI)AfAm 46.28 Est GFR (CKD-EPI)NonAf 39.93 POC Glucometer Random Glucose 297 H Calcium 8.9 Phosphorus 4.2 Magnesium 2.5 H Total Bilirubin 0.4 AST 33 ALT 56 Alkaline Phosphatase 93 Total Protein 6.3 L Albumin 2.6 L Random Vancomycin 05/09/19 05/09/19 05/09/19 06:02 11:55 13:20 WBC RBC Hgb Hct MCV MCH MCHC RDW Plt Count MPV Absolute Neuts (auto) Neutrophils % Lymphocytes % Monocytes % Eosinophils % Basophils % Nucleated RBC % PTT (Actin FS) Anticoagulation Therapy No Result Required. ABG pH 7.35 ABG pCO2 at Pt Temp 62.9 H ABG pO2 at Pt Temp 69.0 L ABG HCO3 34.0 H ABG O2 Sat (Measured) 90.0 L ABG O2 Content 14.4 ABG Base Excess 7.1 H O2 Delivery Device No Result Required. Oxygen Flow Rate No Result Required. Vent Mode No Result Required. Vent Rate No Result Required. Mechanical Rate No Result Required. Pressure Support Vent No Result Required. Sodium Potassium Chloride Carbon Dioxide Anion Gap BUN Creatinine Est GFR (CKD-EPI)AfAm Est GFR (CKD-EPI)NonAf POC Glucometer 285 313 Random Glucose Calcium Phosphorus Magnesium Total Bilirubin AST ALT Alkaline Phosphatase Total Protein Albumin Random Vancomycin Active Medications Generic Name Dose Route Start Last Admin Trade Name Freq PRN Reason Stop Dose Admin Albuterol/Ipratropium 1 amp 04/30/19 16:00 05/09/19 11:10 Duoneb - NEB 1 amp RQID ELISSA Administration Apixaban 5 mg 05/08/19 22:00 05/09/19 10:06 Eliquis - PO 5 mg BID ELISSA Administration Chlorhexidine Gluconate 1 applic 04/30/19 22:00 05/08/19 21:10 Hibiclens For Decolonization - TP 1 applic HS [facility]ISSA Administration Ferrous Sulfate 300 mg 05/09/19 10:00 05/09/19 10:45 Feosol NGT 300 mg BID [facility]ISSA Administration Furosemide 40 mg 05/08/19 14:00 05/09/19 06:19 Lasix Injection - IVPUSH 40 mg BID@0600,1400 ELISSA Administration Vasopressin 50 units/ Sodium 100 mls @ 4 mls/hr 04/30/19 09:30 05/09/19 10:03 Chloride IVPB Not Given ASDIR ELISSA Protocol 2 UNITS/HR Propofol 1,000,000 mcg in 100 mls @ 4.082 mls/hr 04/30/19 10:15 05/09/19 11: 44 Diprivan - IVPB Not Given TITR ELISSA Protocol 5 MCG/KG/MIN Norepinephrine Bitartrate 8, 500 mls @ 18.75 mls/hr 04/30/19 14:00 05/08/19 19:52 000 mcg/ Dextrose/Sodium IV Not Given Chloride TITR ELISSA Protocol 5 MCG/MIN Piperacillin Sod/Tazobactam 50 mls @ 100 mls/hr 05/01/19 18:00 05/09/19 10:05 Sod 3.375 gm/ Dextrose IVPB 100 mls/hr Q8H-IV [facility]ISSA Administration Protocol Fentanyl 500 mcg/ Dextrose 100 mls @ 10 mls/hr 05/01/19 12:45 05/08/19 13:05 IVPB 100 mcg/hr TITR ELISSA 20 mls/hr Administration Protocol 50 MCG/HR Vancomycin HCl 1,000 mg in 250 mls @ 166.667 mls/hr 05/09/19 14:35 Vancomycin (Pre-Docked) IVPB 05/09/19 16:04 ONCE ONE Protocol Insulin Aspart 1 vial 05/08/19 12:15 05/09/19 11:58 Novolog Vial Sliding Scale - SQ 8 units Q6H ELISSA Administration Protocol Methylprednisolone Sodium Succinate 40 mg 05/02/19 14:05 05/09/19 10:06 Solu-Medrol - IVPUSH 40 mg Q8H-IV [facility]ISSA Administration Metoprolol Tartrate 5 mg 04/30/19 08:57 05/09/19 11:44 Lopressor Injection - IVPUSH 5 mg Q4H PRN Administration TACHYCARDIA Metoprolol Tartrate 25 mg 05/08/19 14:00 05/09/19 06:19 Lopressor - PO 25 mg TID ELISSA Administration Pantoprazole Sodium 40 mg 05/01/19 10:00 05/09/19 10:06 Protonix Iv IVPUSH 40 mg DAILY [facility] Administration ASSESSMENT/PLAN: 53 y/o/m with PMHx of DM2, HFpEF(last EF: 45-50%), 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 #Acute Hypoxic and Hypercapneic Respiratory Failure/ EMMY - Off sedation, extubated on 05/09 - ABG after extubation: pH 7.35, pCO2 62.9, PO2 69 - Pulm consulted - Hans RQID - Solumedrol 40mg Q8h IV - Follow CXRs - increased changes at left base - Continue Zosyn - Azithromycin discontinued - Complete 10 day course of Vancomycin, today is day 10 - ID consulted (Dr. Garcia) - Positive blood culture bottle initially but repeat blood cultures s/p abx negative #HFpEF vs. Cardiogenic shock - Lasix drip discontinued, now on Lasix 40mg IV BID - Strict Is & Os, daily weights - ECHO difficult to assess, EF of 55-60%, no significant abnormalities noted - Cardiology Consult (Dr. Encinas) - off pressors, BP stable - Cardio recommends cardiac PET or MRI to exclude cardiac involvement in sarcoidosis as outpatient. F/u with Dr. Genaro Davila at [place] #Atrial Flutter - Lopressor 25mg PO BID - Lopressor 5mg IVpush Q4hr PRN for rate control - On eliquis 5mg BID now. Heparin drip discontinued #RYNE on CKD w/ Hyperkalemia - BUN/Cr 82.1/1.9 fluctuating levels - Nephrology Consulted (Dr. Kelley) - Likely secondary to volume overload. Pt. likely has CKD given risk factors of DM2 (uncontrolled glucose) and Heart Failure - Hyperkalemia resolved - Lasix 40mg BID IV - Hold Lisinopril, restart 10mg QD once improved renal function, BP #DM2 - BGM - ISS - Insulin drip discontinued #FEN - no standing IVF - monitor and replete lytes as needed - NG tube removed, consider reinsertion if patient not able to tolerate PO #DVT Ppx. - Eliquis 5mg BID - Protonix #Disposition - Continue ICU monitoring, off pressors, extubated Visit type - Emergency Visit Emergency Visit: Yes ED Registration Date: 04/30/19 Care time: The patient presented to the Emergency Department on the above date and was hospitalized for further evaluation of their emergent condition. - New Patient This patient is new to me today: No - Critical Care Critical Care patient: Yes Total Critical Care Time (in minutes): 36 Critical Care Statement: The care of this patient involved high complexity decision making to prevent further life threatening deterioration of the patient 's condition and/or to evaluate & treat vital organ system(s) failure or risk of failure. ATTENDING PHYSICIAN STATEMENT I saw and evaluated the patient. I reviewed the resident's note and discussed the case with the resident. I agree with the resident's findings and plan as documented. SUBJECTIVE: OBJECTIVE: ASSESSMENT AND PLAN:
[2019-05-09 15:24] LABS: ALLENS TEST POSITIVE
--- NOTE | 2019-05-09 18:33 | PN ---
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, Physician History of Present Illness: Pt seen and examined at bedside. He was extubated. He is not answering questions. - Current Medication List Current Medications: Active Medications Albuterol/Ipratropium (Duoneb -) 1 amp NEB RQID [facility] Last Admin: 05/09/19 16:20 Dose: 1 amp Apixaban (Eliquis -) 5 mg PO BID ELISSA Last Admin: 05/09/19 10:06 Dose: 5 mg Chlorhexidine Gluconate (Hibiclens For Decolonization -) 1 applic TP HS [facility] Last Admin: 05/08/19 21:10 Dose: 1 applic Ferrous Sulfate (Feosol) 300 mg NGT BID [facility] Last Admin: 05/09/19 10:45 Dose: 300 mg Furosemide (Lasix Injection -) 40 mg IVPUSH BID@0600,1400 [facility] Last Admin: 05/09/19 06:19 Dose: 40 mg Vasopressin 50 units/ Sodium (Chloride) 100 mls @ 4 mls/hr IVPB ASDIR ELISSA; Protocol Last Admin: 05/09/19 10:03 Dose: Not Given Propofol (Diprivan -) 1,000,000 mcg in 100 mls @ 4.082 mls/hr IVPB TITR ELISSA; Protocol Last Admin: 05/09/19 11:44 Dose: Not Given Norepinephrine Bitartrate 8, 000 mcg/ Dextrose/Sodium Chloride 500 mls @ 18.75 mls/hr IV TITR ELISSA; Protocol Last Admin: 05/09/19 14:08 Dose: Not Given Piperacillin Sod/Tazobactam (Sod 3.375 gm/ Dextrose) 50 mls @ 100 mls/hr IVPB Q8H-IV ELISSA; Protocol Last Admin: 05/09/19 17:09 Dose: 100 mls/hr Fentanyl 500 mcg/ Dextrose 100 mls @ 10 mls/hr IVPB TITR ELISSA; Protocol Last Admin: 05/09/19 12:09 Dose: Not Given Insulin Aspart (Novolog Vial Sliding Scale -) 1 vial SQ Q6H ELISSA; Protocol Last Admin: 05/09/19 17:48 Dose: 6 units Methylprednisolone Sodium Succinate (Solu-Medrol -) 40 mg IVPUSH Q8H-IV [facility]ISSA Last Admin: 05/09/19 17:09 Dose: 40 mg Metoprolol Tartrate (Lopressor Injection -) 5 mg IVPUSH Q4H PRN PRN Reason: TACHYCARDIA Last Admin: 05/09/19 15:30 Dose: 5 mg Metoprolol Tartrate (Lopressor -) 25 mg PO TID [facility] Last Admin: 05/09/19 06:19 Dose: 25 mg Pantoprazole Sodium (Protonix Iv) 40 mg IVPUSH DAILY [facility] Last Admin: 05/09/19 10:06 Dose: 40 mg - Objective Vital Signs: Vital Signs Temperature 99.1 F 05/09/19 06:59 Pulse Rate 155 H 05/09/19 15:30 Respiratory Rate 36 H 05/09/19 09:15 Blood Pressure 116/78 05/09/19 15:30 O2 Sat by Pulse Oximetry (%) 91 L 05/09/19 09:15 Constitutional: Yes: Calm Eyes: Yes: Conjunctiva Clear HENT: Yes: Atraumatic Neck: Yes: Supple Cardiovascular: Yes: S1, S2 Respiratory: Yes: On Nasal O2 Gastrointestinal: Yes: Soft, Abdomen, Obese Genitourinary: Yes: Andrews Present Edema: LUE: 1+, RUE: 1+, LLE: Trace, RLE: Trace Integumentary: Yes: Venous Stasis Changes Neurological: Yes: Confusion Labs: CBC, BMP 05/09/19 05:24 05/09/19 05:24 INR, PTT INR 1.09 (0.83-1.09) 05/05/19 05:30 - ....Imaging Chest X-ray: Report Reviewed Problem List - Problems (1) Acute decompensated heart failure Code(s): I50.9 - HEART FAILURE, UNSPECIFIED (2) Atrial fibrillation and flutter Code(s): I48.91 - UNSPECIFIED ATRIAL FIBRILLATION; I48.92 - UNSPECIFIED ATRIAL FLUTTER (3) Hyperkalemia Code(s): E87.5 - HYPERKALEMIA (4) Pneumonia Code(s): J18.9 - PNEUMONIA, UNSPECIFIED ORGANISM Qualifiers: Pneumonia type: due to unspecified organism (5) Sarcoidosis of other sites Code(s): D86.89 - SARCOIDOSIS OF OTHER SITES Assessment/Plan Current Medications Generic Name Dose Route Start Last Admin Trade Name Freq PRN Reason Stop Dose Admin Albuterol/Ipratropium 1 amp 04/30/19 16:00 05/09/19 16:20 Duoneb - NEB 1 amp RQID ELISSA Administration Apixaban 5 mg 05/08/19 22:00 05/09/19 10:06 Eliquis - PO 5 mg BID ELISSA Administration Chlorhexidine Gluconate 1 applic 04/30/19 22:00 05/08/19 21:10 Hibiclens For Decolonization - TP 1 applic HS ELISSA Administration Ferrous Sulfate 300 mg 05/09/19 10:00 05/09/19 10:45 Feosol NGT 300 mg BID ELISSA Administration Furosemide 40 mg 05/08/19 14:00 05/09/19 06:19 Lasix Injection - IVPUSH 40 mg BID@0600,1400 ELISSA Administration Vasopressin 50 units/ Sodium 100 mls @ 4 mls/hr 04/30/19 09:30 05/09/19 10:03 Chloride IVPB Not Given ASDIR ELISSA Protocol 2 UNITS/HR Propofol 1,000,000 mcg in 100 mls @ 4.082 mls/hr 04/30/19 10:15 05/09/19 11: 44 Diprivan - IVPB Not Given TITR ELISSA Protocol 5 MCG/KG/MIN Norepinephrine Bitartrate 8, 500 mls @ 18.75 mls/hr 04/30/19 14:00 05/09/19 14:08 000 mcg/ Dextrose/Sodium IV Not Given Chloride TITR ELISSA Protocol 5 MCG/MIN Piperacillin Sod/Tazobactam 50 mls @ 100 mls/hr 05/01/19 18:00 05/09/19 17:09 Sod 3.375 gm/ Dextrose IVPB 100 mls/hr Q8H-IV ELISSA Administration Protocol Fentanyl 500 mcg/ Dextrose 100 mls @ 10 mls/hr 05/01/19 12:45 05/09/19 12:09 IVPB Not Given TITR ELISSA Protocol 50 MCG/HR Insulin Aspart 1 vial 05/08/19 12:15 05/09/19 17:48 Novolog Vial Sliding Scale - SQ 6 units Q6H ELISSA Administration Protocol Methylprednisolone Sodium Succinate 40 mg 05/02/19 14:05 05/09/19 17:09 Solu-Medrol - IVPUSH 40 mg Q8H-IV ELISSA Administration Metoprolol Tartrate 5 mg 04/30/19 08:57 05/09/19 15:30 Lopressor Injection - IVPUSH 5 mg Q4H PRN Administration TACHYCARDIA Metoprolol Tartrate 25 mg 05/08/19 14:00 05/09/19 06:19 Lopressor - PO 25 mg TID ELISSA Administration Pantoprazole Sodium 40 mg 05/01/19 10:00 05/09/19 10:06 Protonix Iv IVPUSH 40 mg DAILY ELISSA Administration Impression 1. RYNE 2. hyperkalemia 3. resp failure requiring intubation 4. resp acidosis 5. dm 6. hx htn 7. sleep apnea 8. obesity 9. hx non compliance 10. chf 11. sarcoid 12. volume overload Plan - pt extubated - monitor pulse ox - cont to monitor senior training and development rep - volume status improving - cont lasix - senior training and development rep is rising - monitor potassium
--- NOTE | 2019-05-09 18:58 | PN ---
Teaching Attending Note Name of Resident: Giuseppe Rm ATTENDING PHYSICIAN STATEMENT I saw and evaluated the patient. I reviewed the resident's note and discussed the case with the resident. I agree with the resident's findings and plan as documented. SUBJECTIVE: Intubated, mechanically ventilated. Off sedation, off pressors, for weaning and eventual extubation planned today. OBJECTIVE: Afebrile. Weaned off Levophed and Vasopressin. Intubated/Ventilated - AC Mode/PEEP 6/FiO2 50%. Tachycardic off sedation. Last Vital Signs Temp Pulse Resp BP Pulse Ox 98.3 F 124 H 20 134/78 95 05/09/19 18:00 05/09/19 18:00 05/09/19 18:00 05/09/19 18:00 05/09/19 10:00 HEENT - Normocephalic. Intubated/Ventilated. OG tube. Heart - S1, S2, RRR Lungs - good air entry bilaterally Abdomen - High BMI, soft, non-tender. Bowel Sounds normal. Extremities - Mild edema, no calf tenderness. Neuro - eyes open, following commands off sedation. JACKIE. Laboratory Results - last 24 hr 05/08/19 05/09/19 05/09/19 23:44 05:24 05:24 WBC RBC Hgb Hct MCV MCH MCHC RDW Plt Count MPV Absolute Neuts (auto) Neutrophils % Lymphocytes % Monocytes % Eosinophils % Basophils % Nucleated RBC % PTT (Actin FS) 27.9 Anticoagulation Therapy Puncture Site ABG pH ABG pCO2 at Pt Temp ABG pO2 at Pt Temp ABG HCO3 ABG O2 Sat (Measured) ABG O2 Content ABG Base Excess Adrian Test O2 Delivery Device Oxygen Flow Rate Vent Mode Vent Rate Mechanical Rate Pressure Support Vent Sodium Potassium Chloride Carbon Dioxide Anion Gap BUN Creatinine Est GFR (CKD-EPI)AfAm Est GFR (CKD-EPI)NonAf POC Glucometer 302 Random Glucose Calcium Phosphorus Magnesium Total Bilirubin AST ALT Alkaline Phosphatase Total Protein Albumin Random Vancomycin 15.7 L 05/09/19 05/09/19 05/09/19 05:24 05:24 06:02 WBC 8.6 RBC 4.62 Hgb 11.1 L Hct 36.3 MCV 78.5 L MCH 23.9 L MCHC 30.5 L RDW 19.8 H Plt Count 276 MPV 8.9 Absolute Neuts (auto) 7.0 Neutrophils % 81.6 Lymphocytes % 5.4 L D Monocytes % 12.8 H D Eosinophils % 0.1 Basophils % 0.1 Nucleated RBC % 0 PTT (Actin FS) Anticoagulation Therapy Puncture Site ABG pH ABG pCO2 at Pt Temp ABG pO2 at Pt Temp ABG HCO3 ABG O2 Sat (Measured) ABG O2 Content ABG Base Excess Adrian Test O2 Delivery Device Oxygen Flow Rate Vent Mode Vent Rate Mechanical Rate Pressure Support Vent Sodium 145 Potassium 4.0 Chloride 104 Carbon Dioxide 32 Anion Gap 8 BUN 82.1 H Creatinine 1.9 H Est GFR (CKD-EPI)AfAm 46.28 Est GFR (CKD-EPI)NonAf 39.93 POC Glucometer 285 Random Glucose 297 H Calcium 8.9 Phosphorus 4.2 Magnesium 2.5 H Total Bilirubin 0.4 AST 33 ALT 56 Alkaline Phosphatase 93 Total Protein 6.3 L Albumin 2.6 L Random Vancomycin 05/09/19 05/09/19 05/09/19 11:55 13:20 17:04 WBC RBC Hgb Hct MCV MCH MCHC RDW Plt Count MPV Absolute Neuts (auto) Neutrophils % Lymphocytes % Monocytes % Eosinophils % Basophils % Nucleated RBC % PTT (Actin FS) Anticoagulation Therapy No Result Required. Puncture Site Right radial ABG pH 7.35 ABG pCO2 at Pt Temp 62.9 H ABG pO2 at Pt Temp 69.0 L ABG HCO3 34.0 H ABG O2 Sat (Measured) 90.0 L ABG O2 Content 14.4 ABG Base Excess 7.1 H Adrian Test Positive O2 Delivery Device No Result Required. Oxygen Flow Rate Yes Vent Mode No Result Required. Vent Rate No Result Required. Mechanical Rate No Result Required. Pressure Support Vent No Result Required. Sodium Potassium Chloride Carbon Dioxide Anion Gap BUN Creatinine Est GFR (CKD-EPI)AfAm Est GFR (CKD-EPI)NonAf POC Glucometer 313 292 Random Glucose Calcium Phosphorus Magnesium Total Bilirubin AST ALT Alkaline Phosphatase Total Protein Albumin Random Vancomycin Current Medications Generic Name Dose Route Start Last Admin Trade Name Freq PRN Reason Stop Dose Admin Albuterol/Ipratropium 1 amp 04/30/19 16:00 05/09/19 16:20 Duoneb - NEB 1 amp RQID ELISSA Administration Apixaban 5 mg 05/08/19 22:00 05/09/19 10:06 Eliquis - PO 5 mg BID ELISSA Administration Chlorhexidine Gluconate 1 applic 04/30/19 22:00 05/08/19 21:10 Hibiclens For Decolonization - TP 1 applic HS ELISSA Administration Ferrous Sulfate 300 mg 05/09/19 10:00 05/09/19 10:45 Feosol NGT 300 mg BID ELISSA Administration Furosemide 40 mg 05/08/19 14:00 05/09/19 06:19 Lasix Injection - IVPUSH 40 mg BID@0600,1400 ELISSA Administration Vasopressin 50 units/ Sodium 100 mls @ 4 mls/hr 04/30/19 09:30 05/09/19 10:03 Chloride IVPB Not Given ASDIR ELISSA Protocol 2 UNITS/HR Propofol 1,000,000 mcg in 100 mls @ 4.082 mls/hr 04/30/19 10:15 05/09/19 11: 44 Diprivan - IVPB Not Given TITR ELISSA Protocol 5 MCG/KG/MIN Norepinephrine Bitartrate 8, 500 mls @ 18.75 mls/hr 04/30/19 14:00 05/09/19 14:08 000 mcg/ Dextrose/Sodium IV Not Given Chloride TITR ELISSA Protocol 5 MCG/MIN Piperacillin Sod/Tazobactam 50 mls @ 100 mls/hr 05/01/19 18:00 05/09/19 17:09 Sod 3.375 gm/ Dextrose IVPB 100 mls/hr Q8H-IV ELISSA Administration Protocol Fentanyl 500 mcg/ Dextrose 100 mls @ 10 mls/hr 05/01/19 12:45 05/09/19 12:09 IVPB Not Given TITR ELISSA Protocol 50 MCG/HR Insulin Aspart 1 vial 05/08/19 12:15 05/09/19 17:48 Novolog Vial Sliding Scale - SQ 6 units Q6H ELISSA Administration Protocol Methylprednisolone Sodium Succinate 40 mg 05/02/19 14:05 05/09/19 17:09 Solu-Medrol - IVPUSH 40 mg Q8H-IV ELISSA Administration Metoprolol Tartrate 5 mg 04/30/19 08:57 05/09/19 15:30 Lopressor Injection - IVPUSH 5 mg Q4H PRN Administration TACHYCARDIA Metoprolol Tartrate 25 mg 05/08/19 14:00 05/09/19 06:19 Lopressor - PO 25 mg TID ELISSA Administration Pantoprazole Sodium 40 mg 05/01/19 10:00 05/09/19 10:06 Protonix Iv IVPUSH 40 mg DAILY ELISSA Administration Home Medications Medication Instructions Recorded Amiodarone HCl 200 mg PO DAILY 04/30/19 Apixaban [Eliquis] 5 mg PO BID 04/30/19 Diltiazem Cd [Cardizem Cd -] 300 mg PO DAILY 04/30/19 Furosemide 40 mg PO BID 04/30/19 Glipizide 10 mg PO DAILY 04/30/19 Lisinopril 10 mg PO DAILY 04/30/19 Metformin HCl [Glucophage] 1,000 mg PO BID 04/30/19 Sitagliptin Phosphate [Januvia] 100 mg PO DAILY 04/30/19 ASSESSMENT AND PLAN: 53 year old male with Obesity, DM 2, Sarcoidosis, Hx systolic CHF (EF 45-50%, now EF normal), EMMY (non-adherent with CPAP), and Atrial Flutter presented with sudden onset of shortness of breath, requiring intubation and mechanical ventilation. 1. Acute Hypoxic and Hypercapneic Respiratory Failure secondary to Acute Diastolic CHF +/- PNA Intubated/Mechanically ventilated. Weaned off Propofol and Fentanyl sedation. To attempt weaning and extubation. Difficult to wean off Vent - likely sec to underlying OHS. IV Lasix diuresis ongoing. Continue Zosyn/Vanco as per ID for 10 days total. CXR - atelectasis at bases. Wean down pressure support and O2 requirements, as per Pulm/Facilities Engineering Manager. Continue Bronchodilator Nebs, Steroids. Rest as per Facilities Engineering Manager 2. Cardiogenic Shock sec to Acute Diastolic CHF vs Septic Shock, etiology unclear - resolved, off pressors. Weaned off Levophed and Vasopressin Blood Cx - Staph epi, likely contaminant. Echo - no vegetations. Repeat Blood Cx neg x 2. Continue Zosyn/Vanco as per ID for 10 days total Cardiology following - for out-patient Cardiac MRI as out-patient to asses degree of sarcoid involvement. BP improving. On BB. Diltiazem and Lisinopril held. 3. Atrial flutter with RVR - on Lopressor for rate control. Diltiazem to resume if HR remains elevated. Heparin drip transitioned to oral Eliquis for AC. Normally on Amiodarone - further management as per Cardio. 4. RYNE with Hyperkalemia - likely secondary to Cardiorenal phenomenon, Creat appears stable at 1.7. Lasix diuresis ongoing. Nephrology following. 5. DM 2 - Insulin drip transitioned to Novolog as per sliding scale. Normally on Glipizide, Metformin and Januvia at home. DVT Px - Eliquis GI Px - PPI
[2019-05-09] MEDS: CHLORHEXIDINE GLUCONATE 4% CLEANSER FOR DECOLONIZATION TP SCH (21:23)
[2019-05-09] MEDS ORDERED: dilTIAZem HCL 50 MG/10 ML - 10 ML VIAL IVPUSH PRN (23:46)
[2019-05-10] MEDS: INSULIN SLIDING SCALE (NOVOLOG) 1 VIAL SQ SCH ×4 (00:44→18:46)
[2019-05-10] MEDS ORDERED: PIPERACILLIN/TAZOBACTAM 3.375 GM VIAL IVPB ONE ×3 (01:10→15:27)
[2019-05-10] MEDS ORDERED: DEXTROSE 5%-WATER - 50 ML IVPB ONE ×3 (01:11→15:27)
[2019-05-10] MEDS: PIPERACILLIN/TAZOB 3.375 GM 3.375 GM in DEXTROSE 5%-WATER - 50 ML IVPB SCH ×3 (01:12→17:30)
[2019-05-10] MEDS: methylPREDNISolone NA SUCC 40 MG/1 ML VIAL IVPUSH SCH ×3 (01:14→17:31)
[2019-05-10] MEDS: METOPROLOL TARTRATE 5 MG/5 ML VIAL IVPUSH PRN ×2 (04:26→08:43)
[2019-05-10 07:13] LABS: BASO % 0.2 % (0-2.0); HEMATOCRIT 40.9 % (35.4-49); HEMOGLOBIN 12.4 GM/dL (11.7-16.9); LYMPH % 1.9 % (8-40); MCH 24.2 pg (25.7-33.7); MCHC 30.3 g/dl (32.0-35.9); MEAN CELL VOLUME 79.8 fl (80-96); MEAN PLT VOLUME 9.1 fl (7.5-11.1); MONO % 7.4 % (3.8-10.2); NEUT % 90.5 % (42.8-82.8); PLATELET COUNT 287 K/MM3 (134-434); RBC 5.13 M/mm3 (4.00-5.60); RDW 19.5 % (11.9-15.9); WHITE BLOOD COUNT 9.9 K/mm3 (4.0-10.0)
[2019-05-10 08:19] LABS: ALBUMIN 2.9 g/dl (3.4-5.0); BLOOD UREA NITROGEN 66.6 mg/dL (7-18); CALCIUM 9.9 mg/dL (8.5-10.1); CREATININE 1.5 mg/dL (0.55-1.3); MAGNESIUM 2.2 mg/dL (1.8-2.4); PHOSPHOROUS 3.7 mg/dL (2.5-4.9); POTASSIUM 4.3 mmol/L (3.5-5.1)
[2019-05-10] MEDS ORDERED: PT OWN MED DRAWER 7, Y5N ONE (08:22)
[2019-05-10] MEDS: dilTIAZem HCL 50 MG/10 ML - 10 ML VIAL IVPUSH PRN (08:30)
[2019-05-10] MEDS: ALBUTEROL SO4 2.5/IPRATROPIUM 0.5 INH SOL 3 ML VIAL.NEB. NEB SCH (08:30)
--- NOTE | 2019-05-10 08:40 | PN ---
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 (short form) - Note 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: Renal follow up for RYNE Coverage for Dr. Kelley Seen and examined in the ICU awake and alert on high flow O2, getting Neb HR remains very elevated he offers no acute complaints denies any pain making urine via ortiz Vital Signs Temperature 98.0 F 05/10/19 04:00 Pulse Rate 140 H 05/10/19 08:00 Respiratory Rate 24 H 05/10/19 08:00 Blood Pressure 149/84 05/10/19 08:00 O2 Sat by Pulse Oximetry (%) 97 05/10/19 08:00 Intake & Output 05/07/19 05/08/19 05/09/19 05/10/19 23:59 23:59 23:59 23:59 Intake Total 3510 3230 1580 Output Total 3500 4900 2200 2500 Balance 10 -5103 -375 -6377 Weight 130.952 kg NAD on high flow O2 tachycardic, No M/R Dec BS, no wheeze obese, soft NT/ND no LE edema ortiz in place CBC, BMP 05/10/19 06:00 05/10/19 06:00 Laboratory Tests 05/10/19 06:00 Calcium 9.9 Phosphorus 3.7 Magnesium 2.2 Albumin 2.9 L Current Medications Albuterol/Ipratropium (Duoneb -) 1 amp NEB RQID [facility] Last Admin: 05/09/19 20:50 Dose: Not Given Apixaban (Eliquis -) 5 mg PO BID [facility] Last Admin: 05/09/19 21:23 Dose: Not Given Chlorhexidine Gluconate (Hibiclens For Decolonization -) 1 applic TP HS [facility] Last Admin: 05/09/19 21:23 Dose: 1 applic Diltiazem HCl (Cardizem Injection -) 10 mg IVPUSH Q4H PRN PRN Reason: TACHYCARDIA Diltiazem HCl (Cardizem Cd -) 300 mg PO DAILY [facility] Ferrous Sulfate (Feosol) 300 mg NGT BID [facility] Last Admin: 05/09/19 21:23 Dose: Not Given Furosemide (Lasix Injection -) 40 mg IVPUSH BID@0600,1400 [facility] Last Admin: 05/09/19 06:19 Dose: 40 mg Vasopressin 50 units/ Sodium (Chloride) 100 mls @ 4 mls/hr IVPB ASDIR [facility]; Protocol Last Admin: 05/09/19 10:03 Dose: Not Given Norepinephrine Bitartrate 8, 000 mcg/ Dextrose/Sodium Chloride 500 mls @ 18.75 mls/hr IV TITR ELISSA; Protocol Last Admin: 05/09/19 14:08 Dose: Not Given Piperacillin Sod/Tazobactam (Sod 3.375 gm/ Dextrose) 50 mls @ 100 mls/hr IVPB Q8H-IV ELISSA; Protocol Last Admin: 05/10/19 01:12 Dose: 100 mls/hr Insulin Aspart (Novolog Vial Sliding Scale -) 1 vial SQ Q6H ELISSA; Protocol Last Admin: 05/10/19 06:40 Dose: 6 units Methylprednisolone Sodium Succinate (Solu-Medrol -) 40 mg IVPUSH Q8H-IV [facility] Last Admin: 05/10/19 01:14 Dose: 40 mg Metoprolol Tartrate (Lopressor Injection -) 5 mg IVPUSH Q4H PRN PRN Reason: TACHYCARDIA Last Admin: 05/10/19 04:26 Dose: 5 mg Metoprolol Tartrate (Lopressor -) 25 mg PO TID [facility] Last Admin: 05/09/19 06:19 Dose: 25 mg Pantoprazole Sodium (Protonix Iv) 40 mg IVPUSH DAILY [facility] Last Admin: 05/09/19 10:06 Dose: 40 mg Impression 1. RYNE 2. hyperkalemia 3. resp failure requiring intubation 4. resp acidosis 5. dm 6. hx htn 7. sleep apnea 8. obesity 9. hx non compliance 10. chf 11. sarcoid 12. volume overload 13. Afib with RVR Plan Renal function improving. No overt electrolyte or acid/base disturbance. Continue IV Lasix BID for volume management. Na trending up, encourage oral hydration Continue supplemental O2 as needed Can consider discontinuation of ortiz catheter HR control as per Cardiology Thank you Gildardo Shaw DO
[2019-05-10] MEDS: PANTOPRAZOLE SODIUM 40 MG VIAL IVPUSH SCH (09:51)
[2019-05-10] MEDS ORDERED: dilTIAZem HCL 25 MG/5 ML - 5 ML VIAL ONE (10:34)
[2019-05-10] MEDS ORDERED: DILTIAZEM INJECTION 125 MG in SODIUM CHLORIDE 100 ML IVPB SCH (10:45)
[2019-05-10] MEDS ORDERED: DEXTROSE 5%-WATER - 1,000 ML IV SCH (10:45)
--- NOTE | 2019-05-10 11:09 | PN ---
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, Physician - Current Medication List Current Medications: Active Medications Albuterol/Ipratropium (Duoneb -) 1 amp NEB RQID [facility] Last Admin: 05/10/19 08:30 Dose: 1 amp Apixaban (Eliquis -) 5 mg PO BID [facility] Last Admin: 05/09/19 21:23 Dose: Not Given Chlorhexidine Gluconate (Hibiclens For Decolonization -) 1 applic TP HS [facility] Last Admin: 05/09/19 21:23 Dose: 1 applic Diltiazem HCl (Cardizem Injection -) 10 mg IVPUSH Q4H PRN PRN Reason: TACHYCARDIA Last Admin: 05/10/19 08:30 Dose: 10 mg Diltiazem HCl (Cardizem Cd -) 300 mg PO DAILY [facility] Ferrous Sulfate (Feosol) 300 mg NGT BID [facility] Last Admin: 05/09/19 21:23 Dose: Not Given Furosemide (Lasix Injection -) 40 mg IVPUSH BID@0600,1400 [facility] Last Admin: 05/09/19 06:19 Dose: 40 mg Piperacillin Sod/Tazobactam (Sod 3.375 gm/ Dextrose) 50 mls @ 100 mls/hr IVPB Q8H-IV [facility]; Protocol Last Admin: 05/10/19 09:51 Dose: 100 mls/hr Diltiazem HCl 125 mg/ Sodium (Chloride) 125 mls @ 5 mls/hr IVPB TITR [facility]; Protocol Dextrose (D5w -) 1,000 mls @ 75 mls/hr IV Q13H [facility] Insulin Aspart (Novolog Vial Sliding Scale -) 1 vial SQ Q6H [facility]; Protocol Last Admin: 05/10/19 06:40 Dose: 6 units Methylprednisolone Sodium Succinate (Solu-Medrol -) 40 mg IVPUSH Q8H-IV [facility] Last Admin: 05/10/19 09:51 Dose: 40 mg Metoprolol Tartrate (Lopressor Injection -) 5 mg IVPUSH Q4H PRN PRN Reason: TACHYCARDIA Last Admin: 05/10/19 08:43 Dose: 5 mg Metoprolol Tartrate (Lopressor -) 25 mg PO TID [facility] Last Admin: 05/09/19 06:19 Dose: 25 mg Pantoprazole Sodium (Protonix Iv) 40 mg IVPUSH DAILY [facility] Last Admin: 05/10/19 09:51 Dose: 40 mg Vancomycin HCl (Vancomycin (Pre-Docked)) 1,000 mg IVPB DAILY ELISSA; Protocol Vancomycin HCl (Vancomycin (Pre-Docked)) 1,000 mg IVPB ONCE ONE Stop: 05/10/19 15:01 - Objective Vital Signs: Vital Signs Temperature 98.3 F 05/10/19 10:00 Pulse Rate 139 H 05/10/19 10:42 Respiratory Rate 34 H 05/10/19 10:42 Blood Pressure 141/95 05/10/19 10:42 O2 Sat by Pulse Oximetry (%) 97 05/10/19 08:00 Eyes: Yes: WNL, Conjunctiva Clear, EOM Intact HENT: Yes: WNL, Atraumatic, Normocephalic Neck: Yes: WNL, Supple, Trachea Midline Cardiovascular: Yes: Pulse Irregular, S1, S2 Respiratory: Yes: WNL, Regular, CTA Bilaterally Gastrointestinal: Yes: WNL, Normal Bowel Sounds Genitourinary: Yes: WNL Musculoskeletal: Yes: WNL Extremities: Yes: WNL Edema: No Integumentary: Yes: WNL Neurological: Yes: WNL, Alert, Oriented ...Motor Strength: WNL Psychiatric: Yes: WNL Labs: CBC, BMP 05/10/19 06:00 05/10/19 06:00 INR, PTT INR 1.09 (0.83-1.09) 05/05/19 05:30 Assessment/Plan Problem List - Problems (1) Pneumonia Code(s): J18.9 - PNEUMONIA, UNSPECIFIED ORGANISM Qualifiers: Pneumonia type: due to unspecified organism (2) Acute hypercapnic respiratory failure due to obstructive sleep apnea Code(s): J96.02 - ACUTE RESPIRATORY FAILURE WITH HYPERCAPNIA; G47.33 - OBSTRUCTIVE SLEEP APNEA (ADULT) (PEDIATRIC) (3) Acute decompensated heart failure Code(s): I50.9 - HEART FAILURE, UNSPECIFIED (4) Acute renal failure Code(s): N17.9 - ACUTE KIDNEY FAILURE, UNSPECIFIED Qualifiers: Acute renal failure type: unspecified Qualified Code(s): N17.9 - Acute kidney failure, unspecified (5) Sarcoidosis of other sites Code(s): D86.89 - SARCOIDOSIS OF OTHER SITES (6) Type 2 diabetes mellitus Code(s): E11.9 - TYPE 2 DIABETES MELLITUS WITHOUT COMPLICATIONS Qualifiers: Diabetes mellitus termination clerk insulin use: without assisted use Diabetes mellitus complication detail: with chronic kidney disease Chronic kidney disease stage: stage 2 (mild) (7) Atrial fibrillation and flutter Code(s): I48.91 - UNSPECIFIED ATRIAL FIBRILLATION; I48.92 - UNSPECIFIED ATRIAL FLUTTER Assessment/Plan 05/01/2019 Normal LV and RV size and fxn, tr TR 03/14/2019 Normal LV size and fxn, no thrombus ADEEL, mild-mod dilated and HK RV, tr MR, mild-mod TR, tr DC, trace pericardial effusion 1. Acute hypoxic and hypercapneic respiratory failure on mechanical ventilation 2. Pneumonia, post septic shock, Gram Positive Bacteremia, ARDS 3. Sarcoidosis confirmed by skin biopsy, r/o cardiac involvement 4. OSAS nonadherent to cpap 5. Paroxysmal Aflutter/Afib with RVR 6. Acute on chronic diastolic heart failure 7. Acute on CKD with hyperkalemia resolving 8. Type 2 DM 9. Anemia P:1. Empiric abx f/u C&S, IV steroid taper with GI protection, BD, enteral feeds 2. Remains off vasopressin and Levophed gtt for MAP>65 mmHg 3. Vent management per ABG, ARDS protocol and off paralysis 4. Rate-control with oral and IV Lopressor with uptitration as hemodynamics tolerate, eliquis 5 bid, may place on cardizem gtt for further rate-control 5. Lasix 40 IV bid with monitor diuretic response, renal fxn and electrolytes 6. Resume lisinopril 10 qd once renal function and hyperkalemia stabilizes 7. He f/u with Dr. Genaro Davila (cardiology at [facility]), cardiac PET or MRI to exclude cardiac involvement in sarcoidosis as outpatient. Coverage for dr. Encinas cc time spent 37 min
[2019-05-10] MEDS ORDERED: AMIODARONE IN DEXTROSE,ISO-OSM 150 MG/100 ML BAG IVPB ONE (11:28)
[2019-05-10] MEDS ORDERED: AMIODARONE IN DEXTROSE,ISO-OSM 360 MG/200 ML BAG IVPB ONE (11:28)
--- NOTE | 2019-05-10 11:30 | PN ---
Teaching Attending Note Name of Resident: Basilio Cali ATTENDING PHYSICIAN STATEMENT I saw and evaluated the patient. I reviewed the resident's note and discussed the case with the resident. I agree with the resident's findings and plan as documented. SUBJECTIVE: Pt seen and examined in the ICU. Remains on HFOT. More alert but still confused. Heart rates rapid, difficult to control. OBJECTIVE: Vital Signs Period Temp Pulse Resp BP Sys/Kenyon Pulse Ox Last 24 Hr 98.0 F-98.6 F 124-155 18-34 109-157/69-102 97 Intake & Output 05/07/19 05/08/19 05/09/19 05/10/19 23:59 23:59 23:59 23:59 Intake Total 3510 3230 1580 Output Total 3500 4900 2200 2500 Balance 42 -4929 -387 -1722 Weight 130.952 kg Gen: awake, tachypneic Heart: tachycardic, regular Lung: scattered rhonchi Abd: soft, nontender Ext: + edema CBC, BMP 05/10/19 06:00 05/10/19 06:00 Active Medications Albuterol/Ipratropium (Duoneb -) 1 amp NEB RQID [facility] Last Admin: 05/10/19 08:30 Dose: 1 amp Apixaban (Eliquis -) 5 mg PO BID [facility] Last Admin: 05/09/19 21:23 Dose: Not Given Chlorhexidine Gluconate (Hibiclens For Decolonization -) 1 applic TP HS [facility] Last Admin: 05/09/19 21:23 Dose: 1 applic Diltiazem HCl (Cardizem Injection -) 10 mg IVPUSH Q4H PRN PRN Reason: TACHYCARDIA Last Admin: 05/10/19 08:30 Dose: 10 mg Diltiazem HCl (Cardizem Cd -) 300 mg PO DAILY [facility] Ferrous Sulfate (Feosol) 300 mg NGT BID [facility] Last Admin: 05/09/19 21:23 Dose: Not Given Furosemide (Lasix Injection -) 40 mg IVPUSH BID@0600,1400 [facility] Last Admin: 05/09/19 06:19 Dose: 40 mg Piperacillin Sod/Tazobactam (Sod 3.375 gm/ Dextrose) 50 mls @ 100 mls/hr IVPB Q8H-IV [facility]; Protocol Last Admin: 05/10/19 09:51 Dose: 100 mls/hr Diltiazem HCl 125 mg/ Sodium (Chloride) 125 mls @ 5 mls/hr IVPB TITR [facility]; Protocol Last Admin: 05/10/19 10:30 Dose: 15 mg/hr, 15 mls/hr Dextrose (D5w -) 1,000 mls @ 75 mls/hr IV Q13H [facility] Insulin Aspart (Novolog Vial Sliding Scale -) 1 vial SQ Q6H [facility]; Protocol Last Admin: 05/10/19 06:40 Dose: 6 units Methylprednisolone Sodium Succinate (Solu-Medrol -) 40 mg IVPUSH Q8H-IV [facility] Last Admin: 05/10/19 09:51 Dose: 40 mg Metoprolol Tartrate (Lopressor Injection -) 5 mg IVPUSH Q4H PRN PRN Reason: TACHYCARDIA Last Admin: 05/10/19 08:43 Dose: 5 mg Metoprolol Tartrate (Lopressor -) 25 mg PO TID [facility] Last Admin: 05/09/19 06:19 Dose: 25 mg Pantoprazole Sodium (Protonix Iv) 40 mg IVPUSH DAILY [facility] Last Admin: 05/10/19 09:51 Dose: 40 mg Vancomycin HCl (Vancomycin (Pre-Docked)) 1,000 mg IVPB DAILY [facility]; Protocol Vancomycin HCl (Vancomycin (Pre-Docked)) 1,000 mg IVPB ONCE ONE Stop: 05/10/19 15:01 ASSESSMENT AND PLAN: Acute Hypoxic and Hypercapneic Respiratory Failure Pneumonia Gram Positive Bacteremia Septic Shock Volume Overload r/o ARDS Lactic Acidosis Hyperkalemia Acute Kidney Injury Atrial Flutter with RVR HTN DM Anemia - continue antibiotics - continue lasix - monitor urine output, creatinine - monitor lytes - on empiric medrol - inhaled bronchodilators - rate control, started on cardizem gtt - continue anticoagulation - taper fiO2 to keep SpO2 >90% - BiPAP as needed to assist in work of breathing - free water replacement - DVT/GI prophylaxis - continue ICU monitoring critical care time spent in reviewing chart, evaluating patient and formulating plan 35 min
--- NOTE | 2019-05-10 11:53 | PN ---
Physical Exam: SUBJECTIVE: Patient seen and examined in the morning. Patient was extubated yesterday, no acute events overnight. Patient has had waxing and waning mental status, and has been tachycardic since extubation. Responds that he is good within questions about chest pain and shortness of breath. OBJECTIVE: Vital Signs Period Temp Pulse Resp BP Sys/[place] Pulse Ox Last 24 Hr 98.0 F-98.6 F 124-155 18-34 109-157/69-102 97 GENERAL: The patient is awake, alert, oriented to self. HEAD: Normal with no signs of trauma. EYES: PERRL, extraocular movements intact, sclera anicteric ENT: Highflow oxygen device in place. NECK: Trachea midline. LUNGS: Diffuse wheezes heard throughout b/l lungs. HEART: Tachycardic without murmurs rubs gallops ABDOMEN: Soft, nontender, normoactive bowel sounds. EXTREMITIES: 2+ pulses, NEUROLOGICAL: Patient is not able to move extremities against gravity- likely due to weakness and not neurological deficit. PSYCH: Normal mood, normal affect. SKIN: Warm, dry, normal turgor, no rashes or lesions noted Laboratory Results - last 24 hr 05/09/19 05/09/19 05/09/19 11:55 13:20 17:04 WBC RBC Hgb Hct MCV MCH MCHC RDW Plt Count MPV Absolute Neuts (auto) Neutrophils % Lymphocytes % Monocytes % Eosinophils % Basophils % Nucleated RBC % PTT (Actin FS) Anticoagulation Therapy No Result Required. Puncture Site Right radial ABG pH 7.35 ABG pCO2 at Pt Temp 62.9 H ABG pO2 at Pt Temp 69.0 L ABG HCO3 34.0 H ABG O2 Sat (Measured) 90.0 L ABG O2 Content 14.4 ABG Base Excess 7.1 H Adrian Test Positive O2 Delivery Device No Result Required. Oxygen Flow Rate Yes Vent Mode No Result Required. Vent Rate No Result Required. Mechanical Rate No Result Required. Pressure Support Vent No Result Required. Sodium Potassium Chloride Carbon Dioxide Anion Gap BUN Creatinine Est GFR (CKD-EPI)AfAm Est GFR (CKD-EPI)NonAf POC Glucometer 313 292 Random Glucose Calcium Phosphorus Magnesium Total Bilirubin AST ALT Alkaline Phosphatase Total Protein Albumin 05/10/19 05/10/19 05/10/19 00:37 06:00 06:00 WBC 9.9 RBC 5.13 Hgb 12.4 Hct 40.9 MCV 79.8 L MCH 24.2 L MCHC 30.3 L RDW 19.5 H Plt Count 287 MPV 9.1 Absolute Neuts (auto) 9.0 H Neutrophils % 90.5 H Lymphocytes % 1.9 L D Monocytes % 7.4 Eosinophils % 0.0 D Basophils % 0.2 Nucleated RBC % 0 PTT (Actin FS) 27.5 Anticoagulation Therapy Puncture Site ABG pH ABG pCO2 at Pt Temp ABG pO2 at Pt Temp ABG HCO3 ABG O2 Sat (Measured) ABG O2 Content ABG Base Excess Adrian Test O2 Delivery Device Oxygen Flow Rate Vent Mode Vent Rate Mechanical Rate Pressure Support Vent Sodium Potassium Chloride Carbon Dioxide Anion Gap BUN Creatinine Est GFR (CKD-EPI)AfAm Est GFR (CKD-EPI)NonAf POC Glucometer 244 Random Glucose Calcium Phosphorus Magnesium Total Bilirubin AST ALT Alkaline Phosphatase Total Protein Albumin 05/10/19 05/10/19 06:00 06:34 WBC RBC Hgb Hct MCV MCH MCHC RDW Plt Count MPV Absolute Neuts (auto) Neutrophils % Lymphocytes % Monocytes % Eosinophils % Basophils % Nucleated RBC % PTT (Actin FS) Anticoagulation Therapy Puncture Site ABG pH ABG pCO2 at Pt Temp ABG pO2 at Pt Temp ABG HCO3 ABG O2 Sat (Measured) ABG O2 Content ABG Base Excess Adrian Test O2 Delivery Device Oxygen Flow Rate Vent Mode Vent Rate Mechanical Rate Pressure Support Vent Sodium 149 H Potassium 4.3 Chloride 109 H Carbon Dioxide 33 H Anion Gap 7 L BUN 66.6 H Creatinine 1.5 H Est GFR (CKD-EPI)AfAm 61.59 Est GFR (CKD-EPI)NonAf 53.14 POC Glucometer 297 Random Glucose 276 H Calcium 9.9 Phosphorus 3.7 Magnesium 2.2 Total Bilirubin 1.0 AST 32 ALT 61 Alkaline Phosphatase 102 Total Protein 7.0 Albumin 2.9 L Active Medications Generic Name Dose Route Start Last Admin Trade Name Freq PRN Reason Stop Dose Admin Albuterol/Ipratropium 1 amp 04/30/19 16:00 05/10/19 08:30 Duoneb - NEB 1 amp RQID [facility] Administration Apixaban 5 mg 05/08/19 22:00 05/09/19 21:23 Eliquis - PO Not Given BID [facility] Chlorhexidine Gluconate 1 applic 04/30/19 22:00 05/09/19 21:23 Hibiclens For Decolonization - TP 1 applic HS [facility] Administration Diltiazem HCl 10 mg 05/10/19 05:04 05/10/19 08:30 Cardizem Injection - IVPUSH 10 mg Q4H PRN Administration TACHYCARDIA Diltiazem HCl 300 mg 05/10/19 10:00 Cardizem Cd - PO DAILY [facility] Ferrous Sulfate 300 mg 05/09/19 10:00 05/09/19 21:23 Feosol NGT Not Given BID [facility] Furosemide 40 mg 05/08/19 14:00 05/09/19 06:19 Lasix Injection - IVPUSH 40 mg BID@0600,1400 [facility] Administration Piperacillin Sod/Tazobactam 50 mls @ 100 mls/hr 05/01/19 18:00 05/10/19 09:51 Sod 3.375 gm/ Dextrose IVPB 100 mls/hr Q8H-IV [facility] Administration Protocol Diltiazem HCl 125 mg/ Sodium 125 mls @ 5 mls/hr 05/10/19 10:45 Chloride IVPB TITR [facility] Protocol 5 MG/HR Dextrose 1,000 mls @ 75 mls/hr 05/10/19 10:45 D5w - IV Q13H [facility] Insulin Aspart 1 vial 05/08/19 12:15 05/10/19 06:40 Novolog Vial Sliding Scale - SQ 6 units Q6H [facility] Administration Protocol Methylprednisolone Sodium Succinate 40 mg 05/02/19 14:05 05/10/19 09:51 Solu-Medrol - IVPUSH 40 mg Q8H-IV [facility] Administration Metoprolol Tartrate 5 mg 04/30/19 08:57 05/10/19 08:43 Lopressor Injection - IVPUSH 5 mg Q4H PRN Administration TACHYCARDIA Metoprolol Tartrate 25 mg 05/08/19 14:00 05/09/19 06:19 Lopressor - PO 25 mg TID [facility] Administration Pantoprazole Sodium 40 mg 05/01/19 10:00 05/10/19 09:51 Protonix Iv IVPUSH 40 mg DAILY [facility] Administration Vancomycin HCl 1,000 mg 05/11/19 10:00 Vancomycin (Pre-Docked) IVPB DAILY [facility] Protocol Vancomycin HCl 1,000 mg 05/10/19 15:00 Vancomycin (Pre-Docked) IVPB 05/10/19 15:01 ONCE ONE ASSESSMENT/PLAN: 53 M with PMH of DM2, HFpEF (last EF 45-50%), EMMY, Aflutter presented with sudden onset Shortness of breath. In ICU for management of ARDS. Neuro -Extubated yesterday -Is currently AAOx1 - AAOx2 -Will continue to reevaluate and reorient. -Patient is weak likely due to extended period of paralysis and sedation. Will continue to monitor Cardiovascular -Hx of Afluter and HFpEF -Patient placed on diltiazem drip and given PRN meds, rate control not achieved -Amiodarone drip -Lasix -Lopressor TID and PRN -Eliquis -Cardiology consulted, appreciate recs - Pulmonary -Acute Hypoxic and Hypercapneic Respiratory Failure, presenting with ARDS -Extubated to highflow. 60/60 -Mentating well enough to keep up with BiPAP. -BiPAP: 12/5 overnight if needed. -Permissive hypercapnea -Keeping sat > 90% -New atelectasis or infiltrate in the left lung -Atrovent -Solumedrol Renal -BUN/Creatinine 66.6/1.5 -Lasix -K stable -Nephrology consulted, appreciate recs -D/C Andrews when appropriate GI -NG pulled. -Protonix 40 mg daily -Swallow evaluation -No acute issues, continue monitoring ID -Vancomycin tomorrow, zoysn continued -Blood cultures grew staph epidermdis, staph coag neg, cdc group g before abx -Blood cultures post abx negative -ID consulted, appreciate recs Endo -Hx of DM -BGMs -ACHS insulin Heme/Onc -H/H 12.4/40.9 -Continue to monitor F: D5W until oral hydration can be started E: Monitor Na and K N: NPO pending swallow evaluation DVT: Eliquis Lines: Andrews pending removal Dispo: Continuing ICU monitoring Visit type - Emergency Visit Emergency Visit: Yes ED Registration Date: 04/30/19 Care time: The patient presented to the Emergency Department on the above date and was hospitalized for further evaluation of their emergent condition. - New Patient This patient is new to me today: No - Critical Care Critical Care patient: Yes Total Critical Care Time (in minutes): 45 Critical Care Statement: The care of this patient involved high complexity decision making to prevent further life threatening deterioration of the patient's condition and/or to evaluate & treat vital organ system(s) failure or risk of failure. ATTENDING PHYSICIAN STATEMENT I saw and evaluated the patient. I reviewed the resident's note and discussed the case with the resident. I agree with the resident's findings and plan as documented. SUBJECTIVE: OBJECTIVE: ASSESSMENT AND PLAN:
[2019-05-10] MEDS: VASOPRESSIN 50 UNITS in SODIUM CHLORIDE 97.5 ML IVPB SCH (12:20)
--- NOTE | 2019-05-10 12:20 | PN ---
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, Physician History of Present Illness: AWAKE, ALERT ON HIGH FLOW O2 NO ACUTE DISTRESS AFEBRILE WBC WNL REPEAT BC NO GROWTH - Current Medication List Current Medications: Active Medications Apixaban (Eliquis -) 5 mg PO BID [facility] Last Admin: 05/09/19 21:23 Dose: Not Given Chlorhexidine Gluconate (Hibiclens For Decolonization -) 1 applic TP HS [facility] Last Admin: 05/09/19 21:23 Dose: 1 applic Diltiazem HCl (Cardizem Injection -) 10 mg IVPUSH Q4H PRN PRN Reason: TACHYCARDIA Last Admin: 05/10/19 08:30 Dose: 10 mg Ferrous Sulfate (Feosol) 300 mg NGT BID [facility] Last Admin: 05/09/19 21:23 Dose: Not Given Furosemide (Lasix Injection -) 40 mg IVPUSH BID@0600,1400 [facility] Last Admin: 05/09/19 06:19 Dose: 40 mg Piperacillin Sod/Tazobactam (Sod 3.375 gm/ Dextrose) 50 mls @ 100 mls/hr IVPB Q8H-IV [facility]; Protocol Last Admin: 05/10/19 09:51 Dose: 100 mls/hr Amiodarone HCl/Dextrose (Nexterone 360 Mg/200 Ml Bag) 360 mg in 200 mls @ 16.667 mls/hr IVPB ASDIR [facility]; Protocol Amiodarone HCl/Dextrose (Nexterone 360 Mg/200 Ml Bag) 360 mg in 200 mls @ 33.333 mls/hr IVPB ONCE ONE; Protocol Stop: 05/10/19 17:27 Insulin Aspart (Novolog Vial Sliding Scale -) 1 vial SQ Q6H [facility]; Protocol Last Admin: 05/10/19 06:40 Dose: 6 units Ipratropium [place] (Atrovent 0.02% Nebulizer -) 1 amp NEB Q6H PRN PRN Reason: DYSPEPSIA Stop: 05/17/19 11:29 Methylprednisolone Sodium Succinate (Solu-Medrol -) 40 mg IVPUSH Q8H-IV [facility] Last Admin: 05/10/19 09:51 Dose: 40 mg Metoprolol Tartrate (Lopressor Injection -) 5 mg IVPUSH Q4H PRN PRN Reason: TACHYCARDIA Last Admin: 05/10/19 08:43 Dose: 5 mg Metoprolol Tartrate (Lopressor Injection -) 10 mg IVPUSH TID [facility] Pantoprazole Sodium (Protonix Iv) 40 mg IVPUSH DAILY [facility] Last Admin: 05/10/19 09:51 Dose: 40 mg Vancomycin HCl (Vancomycin (Pre-Docked)) 1,000 mg IVPB DAILY [facility]; Protocol Vancomycin HCl (Vancomycin (Pre-Docked)) 1,000 mg IVPB ONCE ONE Stop: 05/10/19 15:01 - Objective Vital Signs: Vital Signs Temperature 98.3 F 05/10/19 10:00 Pulse Rate 139 H 05/10/19 10:42 Respiratory Rate 34 H 05/10/19 10:42 Blood Pressure 141/95 05/10/19 10:42 O2 Sat by Pulse Oximetry (%) 97 05/10/19 08:00 Constitutional: Yes: No Distress, Obese Cardiovascular: Yes: Regular Rate and Rhythm, S1, S2 Respiratory: Yes: Diminished Gastrointestinal: Yes: Normal Bowel Sounds, Soft. No: Tenderness Edema: Yes Labs: CBC, BMP 05/10/19 06:00 05/10/19 06:00 INR, PTT INR 1.09 (0.83-1.09) 05/05/19 05:30 Assessment/Plan ACUTE RESP FAILURE CHF/ PNEUMONIA +BC SCN, GPR ? SIGNIFICANCE RENAL FAILURE CONTINUE VENTILATORY/ HEMODYNAMIC SUPPORT CONTINUE ZOSYN REDOSE VANCOMYCIN COMPLETE 10D COURSE VANCOMYCIN
[2019-05-10] MEDS: APIXABAN 5 MG TABLET PO SCH (13:22)
[2019-05-10] MEDS: FERROUS SO4 300 MG/5 ML ORAL SOLN UNIT DOSE CUPS NGT SCH ×2 (13:22→21:25)
[2019-05-10] MEDS: HEPARIN NA (PORCINE) 5,000 UNITS/ML 1ML VIAL SQ SCH ×2 (13:40→21:25)
[2019-05-10] MEDS: FUROSEMIDE 40 MG/4 ML INJECTABLE VIAL IVPUSH SCH (13:40)
--- NOTE | 2019-05-10 13:47 | PN ---
Physical Exam: SUBJECTIVE: Patient seen and examined at bedside. Slow to answer. Requires aggressive prompting to direct attention. Was extubated. On high flow OBJECTIVE: Vital Signs Period Temp Pulse Resp BP Sys/[place] Pulse Ox Last 24 Hr 98.0 F-98.6 F 124-155 18-44 109-157/69-102 96-100 Gen: tacypnic, tachycardic HEENT: NCAT, high flow cannula in place Cardio: regular, tachycardic, s1s2 Pulm: tachypnic, adequate air entry Abd: obese, soft, nontender Ext: no edema Laboratory Results - last 24 hr 05/09/19 05/09/19 05/10/19 13:20 17:04 00:37 WBC RBC Hgb Hct MCV MCH MCHC RDW Plt Count MPV Absolute Neuts (auto) Neutrophils % Lymphocytes % Monocytes % Eosinophils % Basophils % Nucleated RBC % PTT (Actin FS) Anticoagulation Therapy No Result Required. Puncture Site Right radial ABG pH 7.35 ABG pCO2 at Pt Temp 62.9 H ABG pO2 at Pt Temp 69.0 L ABG HCO3 34.0 H ABG O2 Sat (Measured) 90.0 L ABG O2 Content 14.4 ABG Base Excess 7.1 H Adrian Test Positive O2 Delivery Device No Result Required. Oxygen Flow Rate Yes Vent Mode No Result Required. Vent Rate No Result Required. Mechanical Rate No Result Required. Pressure Support Vent No Result Required. Sodium Potassium Chloride Carbon Dioxide Anion Gap BUN Creatinine Est GFR (CKD-EPI)AfAm Est GFR (CKD-EPI)NonAf POC Glucometer 292 244 Random Glucose Calcium Phosphorus Magnesium Total Bilirubin AST ALT Alkaline Phosphatase Total Protein Albumin 05/10/19 05/10/19 05/10/19 06:00 06:00 06:00 WBC 9.9 RBC 5.13 Hgb 12.4 Hct 40.9 MCV 79.8 L MCH 24.2 L MCHC 30.3 L RDW 19.5 H Plt Count 287 MPV 9.1 Absolute Neuts (auto) 9.0 H Neutrophils % 90.5 H Lymphocytes % 1.9 L D Monocytes % 7.4 Eosinophils % 0.0 D Basophils % 0.2 Nucleated RBC % 0 PTT (Actin FS) 27.5 Anticoagulation Therapy Puncture Site ABG pH ABG pCO2 at Pt Temp ABG pO2 at Pt Temp ABG HCO3 ABG O2 Sat (Measured) ABG O2 Content ABG Base Excess Adrian Test O2 Delivery Device Oxygen Flow Rate Vent Mode Vent Rate Mechanical Rate Pressure Support Vent Sodium 149 H Potassium 4.3 Chloride 109 H Carbon Dioxide 33 H Anion Gap 7 L BUN 66.6 H Creatinine 1.5 H Est GFR (CKD-EPI)AfAm 61.59 Est GFR (CKD-EPI)NonAf 53.14 POC Glucometer Random Glucose 276 H Calcium 9.9 Phosphorus 3.7 Magnesium 2.2 Total Bilirubin 1.0 AST 32 ALT 61 Alkaline Phosphatase 102 Total Protein 7.0 Albumin 2.9 L 05/10/19 05/10/19 06:34 13:31 WBC RBC Hgb Hct MCV MCH MCHC RDW Plt Count MPV Absolute Neuts (auto) Neutrophils % Lymphocytes % Monocytes % Eosinophils % Basophils % Nucleated RBC % PTT (Actin FS) Anticoagulation Therapy Puncture Site ABG pH ABG pCO2 at Pt Temp ABG pO2 at Pt Temp ABG HCO3 ABG O2 Sat (Measured) ABG O2 Content ABG Base Excess Adrian Test O2 Delivery Device Oxygen Flow Rate Vent Mode Vent Rate Mechanical Rate Pressure Support Vent Sodium Potassium Chloride Carbon Dioxide Anion Gap BUN Creatinine Est GFR (CKD-EPI)AfAm Est GFR (CKD-EPI)NonAf POC Glucometer 297 307 Random Glucose Calcium Phosphorus Magnesium Total Bilirubin AST ALT Alkaline Phosphatase Total Protein Albumin Active Medications Generic Name Dose Route Start Last Admin Trade Name Freq PRN Reason Stop Dose Admin Apixaban 5 mg 05/08/19 22:00 05/10/19 13:22 Eliquis - PO Not Given BID [facility] Chlorhexidine Gluconate 1 applic 04/30/19 22:00 05/09/19 21:23 Hibiclens For Decolonization - TP 1 applic HS [facility] Administration Diltiazem HCl 10 mg 05/10/19 05:04 05/10/19 08:30 Cardizem Injection - IVPUSH 10 mg Q4H PRN Administration TACHYCARDIA Ferrous Sulfate 300 mg 05/09/19 10:00 05/10/19 13:22 Feosol NGT Not Given BID [facility] Furosemide 40 mg 05/08/19 14:00 05/09/19 06:19 Lasix Injection - IVPUSH 40 mg BID@0600,1400 [facility] Administration Heparin Sodium (Porcine) 5,000 unit 05/10/19 14:00 Heparin - SQ 05/11/19 10:00 TID [facility] Piperacillin Sod/Tazobactam 50 mls @ 100 mls/hr 05/01/19 18:00 05/10/19 09:51 Sod 3.375 gm/ Dextrose IVPB 100 mls/hr Q8H-IV [facility] Administration Protocol Amiodarone HCl/Dextrose 360 mg in 200 mls @ 16.667 mls/hr 05/10/19 11:30 Nexterone 360 Mg/200 Ml Bag IVPB ASDIR [facility] Protocol 0.5 MG/MIN Amiodarone HCl/Dextrose 360 mg in 200 mls @ 33.333 mls/hr 05/10/19 11:28 04/28 12:19 Nexterone 360 Mg/200 Ml Bag IVPB 05/10/19 17:27 33.333 mls/hr ONCE ONE Administration Protocol 1 MG/MIN Insulin Aspart 1 vial 05/08/19 12:15 05/10/19 13:35 Novolog Vial Sliding Scale - SQ 8 units Q6H [facility] Administration Protocol Ipratropium [place] 1 amp 05/10/19 11:29 Atrovent 0.02% Nebulizer - NEB 05/17/19 11:29 Q6H PRN DYSPEPSIA Methylprednisolone Sodium Succinate 40 mg 05/02/19 14:05 05/10/19 09:51 Solu-Medrol - IVPUSH 40 mg Q8H-IV [facility] Administration Metoprolol Tartrate 5 mg 04/30/19 08:57 05/10/19 08:43 Lopressor Injection - IVPUSH 5 mg Q4H PRN Administration TACHYCARDIA Metoprolol Tartrate 10 mg 05/10/19 14:00 Lopressor Injection - IVPUSH TID [facility] Pantoprazole Sodium 40 mg 05/01/19 10:00 05/10/19 09:51 Protonix Iv IVPUSH 40 mg DAILY [facility] Administration Vancomycin HCl 1,000 mg 05/11/19 10:00 Vancomycin (Pre-Docked) IVPB DAILY [facility] Protocol Vancomycin HCl 1,000 mg 05/10/19 15:00 Vancomycin (Pre-Docked) IVPB 05/10/19 15:01 ONCE ONE ASSESSMENT/PLAN: 53 M with PMH of DM2, HFpEF (last EF 45-50%), EMMY, Aflutter presented with sudden onset Shortness of breath. In ICU for management of acute respiratory failure. Resp failure -extubated. Now on high flow -tachypnea -bilevel prn -improving A flutter -now on amio drip -rate has been labile Hypernatremia -seen by nephrology -encourage oral hydration HFpEF -seen by cardio -c/w iglesia DM -c/w ins and bgm Visit type - Emergency Visit Emergency Visit: No - New Patient This patient is new to me today: Yes Date on this admission: 05/10/19 - Critical Care Critical Care patient: Yes Total Critical Care Time (in minutes): 30 Critical Care Statement: The care of this patient involved high complexity decision making to prevent further life threatening deterioration of the patient 's condition and/or to evaluate & treat vital organ system(s) failure or risk of failure. ATTENDING PHYSICIAN STATEMENT I saw and evaluated the patient. I reviewed the resident's note and discussed the case with the resident. I agree with the resident's findings and plan as documented. SUBJECTIVE: OBJECTIVE: ASSESSMENT AND PLAN:
[2019-05-10] MEDS ORDERED: METOPROLOL TARTRATE 5 MG/5 ML VIAL IVPUSH SCH (14:00)
--- NOTE | 2019-05-10 14:37 | PN ---
Teaching Attending Note Name of Resident: Severo Deluca ATTENDING PHYSICIAN STATEMENT I saw and evaluated the patient. I reviewed the resident's note and discussed the case with the resident. I agree with the resident's findings and plan as documented. SUBJECTIVE: Successfully extubated 05/09/19 to HFOT. Awake following commands. Verbalizing some but speech appears slowed and tedious. Denies any pain or discomfort. OBJECTIVE: Afebrile. RVR. Tachypneic. HFOT via NC. Last Vital Signs Temp Pulse Resp BP Pulse Ox 98.3 F 133 H 38 H 120/69 100 05/10/19 10:00 05/10/19 13:39 05/10/19 13:23 05/10/19 13:39 05/10/19 13:28 HEENT - Normocephalic. Heart - S1, S2, RVR Lungs - good air entry bilaterally Abdomen - High BMI, soft, non-tender. Bowel Sounds normal. Extremities - Mild edema, no calf tenderness. Neuro - eyes open, following commands. Generalized weakness all limbs. JACKIE. Laboratory Results - last 24 hr 05/09/19 05/09/19 05/10/19 13:20 17:04 00:37 WBC RBC Hgb Hct MCV MCH MCHC RDW Plt Count MPV Absolute Neuts (auto) Neutrophils % Lymphocytes % Monocytes % Eosinophils % Basophils % Nucleated RBC % PTT (Actin FS) Puncture Site Right radial Adrian Test Positive Oxygen Flow Rate Yes Sodium Potassium Chloride Carbon Dioxide Anion Gap BUN Creatinine Est GFR (CKD-EPI)AfAm Est GFR (CKD-EPI)NonAf POC Glucometer 292 244 Random Glucose Calcium Phosphorus Magnesium Total Bilirubin AST ALT Alkaline Phosphatase Total Protein Albumin 05/10/19 05/10/19 05/10/19 06:00 06:00 06:00 WBC 9.9 RBC 5.13 Hgb 12.4 Hct 40.9 MCV 79.8 L MCH 24.2 L MCHC 30.3 L RDW 19.5 H Plt Count 287 MPV 9.1 Absolute Neuts (auto) 9.0 H Neutrophils % 90.5 H Lymphocytes % 1.9 L D Monocytes % 7.4 Eosinophils % 0.0 D Basophils % 0.2 Nucleated RBC % 0 PTT (Actin FS) 27.5 Puncture Site Adrian Test Oxygen Flow Rate Sodium 149 H Potassium 4.3 Chloride 109 H Carbon Dioxide 33 H Anion Gap 7 L BUN 66.6 H Creatinine 1.5 H Est GFR (CKD-EPI)AfAm 61.59 Est GFR (CKD-EPI)NonAf 53.14 POC Glucometer Random Glucose 276 H Calcium 9.9 Phosphorus 3.7 Magnesium 2.2 Total Bilirubin 1.0 AST 32 ALT 61 Alkaline Phosphatase 102 Total Protein 7.0 Albumin 2.9 L 05/10/19 05/10/19 06:34 13:31 WBC RBC Hgb Hct MCV MCH MCHC RDW Plt Count MPV Absolute Neuts (auto) Neutrophils % Lymphocytes % Monocytes % Eosinophils % Basophils % Nucleated RBC % PTT (Actin FS) Puncture Site Adrian Test Oxygen Flow Rate Sodium Potassium Chloride Carbon Dioxide Anion Gap BUN Creatinine Est GFR (CKD-EPI)AfAm Est GFR (CKD-EPI)NonAf POC Glucometer 297 307 Random Glucose Calcium Phosphorus Magnesium Total Bilirubin AST ALT Alkaline Phosphatase Total Protein Albumin Current Medications Generic Name Dose Route Start Last Admin Trade Name Freq PRN Reason Stop Dose Admin Apixaban 5 mg 05/08/19 22:00 05/10/19 13:22 Eliquis - PO Not Given BID ELISSA Chlorhexidine Gluconate 1 applic 04/30/19 22:00 05/09/19 21:23 Hibiclens For Decolonization - TP 1 applic HS ELISSA Administration Diltiazem HCl 10 mg 05/10/19 05:04 05/10/19 08:30 Cardizem Injection - IVPUSH 10 mg Q4H PRN Administration TACHYCARDIA Ferrous Sulfate 300 mg 05/09/19 10:00 05/10/19 13:22 Feosol NGT Not Given BID ELISSA Furosemide 40 mg 05/08/19 14:00 05/10/19 13:40 Lasix Injection - IVPUSH 40 mg BID@0600,1400 ELISSA Administration Heparin Sodium (Porcine) 5,000 unit 05/10/19 14:00 05/10/19 13:40 Heparin - SQ 05/11/19 10:00 5,000 unit TID ELISSA Administration Piperacillin Sod/Tazobactam 50 mls @ 100 mls/hr 05/01/19 18:00 05/10/19 09:51 Sod 3.375 gm/ Dextrose IVPB 100 mls/hr Q8H-IV ELISSA Administration Protocol Amiodarone HCl/Dextrose 360 mg in 200 mls @ 16.667 mls/hr 05/10/19 11:30 Nexterone 360 Mg/200 Ml Bag IVPB ASDIR ELISSA Protocol 0.5 MG/MIN Amiodarone HCl/Dextrose 360 mg in 200 mls @ 33.333 mls/hr 05/10/19 11:28 04/28 12:19 Nexterone 360 Mg/200 Ml Bag IVPB 05/10/19 17:27 33.333 mls/hr ONCE ONE Administration Protocol 1 MG/MIN Insulin Aspart 1 vial 05/08/19 12:15 05/10/19 13:35 Novolog Vial Sliding Scale - SQ 8 units Q6H ELISSA Administration Protocol Ipratropium [place] 1 amp 05/10/19 11:29 Atrovent 0.02% Nebulizer - NEB 05/17/19 11:29 Q6H PRN DYSPEPSIA Methylprednisolone Sodium Succinate 40 mg 05/02/19 14:05 05/10/19 09:51 Solu-Medrol - IVPUSH 40 mg Q8H-IV ELISSA Administration Metoprolol Tartrate 5 mg 04/30/19 08:57 05/10/19 08:43 Lopressor Injection - IVPUSH 5 mg Q4H PRN Administration TACHYCARDIA Metoprolol Tartrate 10 mg 05/10/19 14:00 05/10/19 13:39 Lopressor Injection - IVPUSH 10 mg TID ELISSA Administration Pantoprazole Sodium 40 mg 05/01/19 10:00 05/10/19 09:51 Protonix Iv IVPUSH 40 mg DAILY ELISSA Administration Vancomycin HCl 1,000 mg 05/11/19 10:00 Vancomycin (Pre-Docked) IVPB DAILY ELISSA Protocol Vancomycin HCl 1,000 mg 05/10/19 15:00 Vancomycin (Pre-Docked) IVPB 05/10/19 15:01 ONCE ONE Home Medications Medication Instructions Recorded Amiodarone HCl 200 mg PO DAILY 04/30/19 Apixaban [Eliquis] 5 mg PO BID 04/30/19 Diltiazem Cd [Cardizem Cd -] 300 mg PO DAILY 04/30/19 Furosemide 40 mg PO BID 04/30/19 Glipizide 10 mg PO DAILY 04/30/19 Lisinopril 10 mg PO DAILY 04/30/19 Metformin HCl [Glucophage] 1,000 mg PO BID 04/30/19 Sitagliptin Phosphate [Januvia] 100 mg PO DAILY 04/30/19 ASSESSMENT AND PLAN: 53 year old male with Obesity, DM 2, Sarcoidosis, Hx systolic CHF (EF 45-50%, now EF normal), EMMY (non-adherent with CPAP), and Atrial Flutter presented with sudden onset of shortness of breath, requiring intubation and mechanical ventilation. 1. Acute Hypoxic and Hypercapneic Respiratory Failure secondary to Acute Diastolic CHF +/- PNA Extubated 05/09/19 IV BID Lasix diuresis ongoing. Continue Zosyn/Vanco as per ID for 10 days total. CXR - atelectasis at bases. 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 Continue Bronchodilator Nebs, Steroids. 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 Cardiogenic Shock sec to Acute Diastolic CHF vs Septic Shock, etiology unclear - resolved, off pressors. Weaned off Levophed and Vasopressin Blood Cx - Staph epi, likely contaminant. Echo - no vegetations. Repeat Blood Cx neg x 2. Continue Zosyn/Vanco as per ID for 10 days total Cardiology following - for out-patient Cardiac MRI as out-patient to asses degree of sarcoid involvement. BP improving. On BB. Diltiazem resumed. Lisinopril held. 3. Atrial flutter with RVR - on Lopressor for rate control. Diltiazem resumed, however nurse questioning swallow s/p extubation. For speech therapy. If unable to take pills by mouth, will need Cardizem drip in the interim. Heparin drip transitioned to oral Eliquis for AC. May need to revert to Heparin if unable to take PO. Normally on Amiodarone - further management as per Cardio. 4. RYNE with Hyperkalemia - likely secondary to Cardiorenal phenomenon, Creat improving, now at 1.5. Lasix diuresis ongoing. Nephrology following. 5. DM 2 - Insulin drip transitioned to Novolog as per sliding scale. Normally on Glipizide, Metformin and Januvia at home. DVT Px - Eliquis GI Px - PPI Needs PT
[2019-05-10] MEDS ORDERED: VANCOMYCIN 1 GM in D5W (PRE-DOCKED) 1,000 MG/250 ML IVPB ONE (15:00)
[2019-05-10] MEDS ORDERED: DIGOXIN 0.5 MG/2 ML AMPUL IVPUSH ONE ×2 (16:27→23:00)
[2019-05-10] MEDS: AMIODARONE IN DEXTROSE,ISO-OSM 360 MG/200 ML BAG IVPB SCH (18:43)
[2019-05-10] MEDS: METOPROLOL TARTRATE 5 MG/5 ML VIAL IVPUSH SCH ×2 (18:50→21:24)
[2019-05-10] MEDS ORDERED: MORPHINE SULFATE 2 MG/ML VIAL IVPUSH ONE (18:57)
[2019-05-10] MEDS ORDERED: ALBUTEROL SO4 2.5/IPRATROPIUM 0.5 INH SOL 3 ML VIAL.NEB. NEB ONE (21:19)
[2019-05-10] MEDS: CHLORHEXIDINE GLUCONATE 4% CLEANSER FOR DECOLONIZATION TP SCH (21:25)
[2019-05-10] MEDS: IPRATROPIUM BR 0.02% 0.5 MG/2.5 ML VIAL.NEB. NEB PRN (21:50)
[2019-05-11] MEDS: INSULIN SLIDING SCALE (NOVOLOG) 1 VIAL SQ SCH ×4 (01:44→18:33)
[2019-05-11] MEDS ORDERED: PIPERACILLIN/TAZOBACTAM 3.375 GM VIAL IVPB ONE ×3 (01:52→15:41)
[2019-05-11] MEDS ORDERED: DEXTROSE 5%-WATER - 50 ML IVPB ONE ×3 (01:52→15:41)
[2019-05-11] MEDS: PIPERACILLIN/TAZOB 3.375 GM 3.375 GM in DEXTROSE 5%-WATER - 50 ML IVPB SCH ×3 (02:09→17:07)
[2019-05-11] MEDS: methylPREDNISolone NA SUCC 40 MG/1 ML VIAL IVPUSH SCH ×3 (02:09→17:07)
[2019-05-11] MEDS: METOPROLOL TARTRATE 5 MG/5 ML VIAL IVPUSH SCH ×4 (02:10→21:41)
[2019-05-11] MEDS ORDERED: DIGOXIN 0.5 MG/2 ML AMPUL IVPUSH ONE (05:00)
[2019-05-11] MEDS: HEPARIN NA (PORCINE) 5,000 UNITS/ML 1ML VIAL SQ SCH (05:57)
[2019-05-11 07:19] LABS: BASO % 0.1 % (0-2.0); HEMATOCRIT 41.2 % (35.4-49); HEMOGLOBIN 12.3 GM/dL (11.7-16.9); LYMPH % 3.5 % (8-40); MCH 24.1 pg (25.7-33.7); MCHC 29.9 g/dl (32.0-35.9); MEAN CELL VOLUME 80.6 fl (80-96); MEAN PLT VOLUME 9.3 fl (7.5-11.1); MONO % 12.5 % (3.8-10.2); NEUT % 83.9 % (42.8-82.8); PLATELET COUNT 291 K/MM3 (134-434); RBC 5.11 M/mm3 (4.00-5.60); RDW 19.8 % (11.9-15.9); WHITE BLOOD COUNT 9.9 K/mm3 (4.0-10.0)
[2019-05-11 07:53] LABS: ALBUMIN 2.8 g/dl (3.4-5.0); ALK PHOS 92 U/L (45-117); ANION GAP 6 MMOL/L (8-16); BLOOD UREA NITROGEN 66.5 mg/dL (7-18); CALCIUM 9.8 mg/dL (8.5-10.1); CHLORIDE 113 mmol/L (98-107); CO2 33 mmol/L (21-32); CREATININE 1.8 mg/dL (0.55-1.3); GLUCOSE,RANDOM 259 mg/dL (74-106); MAGNESIUM 2.3 mg/dL (1.8-2.4); PHOSPHOROUS 3.7 mg/dL (2.5-4.9); POTASSIUM 4.2 mmol/L (3.5-5.1); SGOT/AST 68 U/L (15-37); SGPT/ALT 106 U/L (13-61); SODIUM 152 mmol/L (136-145); TOT PROT 6.6 g/dl (6.4-8.2)
[2019-05-11] MEDS: FUROSEMIDE 40 MG/4 ML INJECTABLE VIAL IVPUSH SCH ×2 (08:02→10:48)
--- NOTE | 2019-05-11 08:16 | PN ---
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, Physician - Current Medication List Current Medications: Active Medications Apixaban (Eliquis -) 5 mg PO BID [facility] Last Admin: 05/10/19 13:22 Dose: Not Given Chlorhexidine Gluconate (Hibiclens For Decolonization -) 1 applic TP HS [facility] Last Admin: 05/10/19 21:25 Dose: 1 applic Diltiazem HCl (Cardizem Injection -) 10 mg IVPUSH Q4H PRN PRN Reason: TACHYCARDIA Last Admin: 05/10/19 08:30 Dose: 10 mg Ferrous Sulfate (Feosol) 300 mg NGT BID [facility] Last Admin: 05/10/19 21:25 Dose: Not Given Furosemide (Lasix Injection -) 40 mg IVPUSH BID@0600,1400 [facility] Last Admin: 05/11/19 08:02 Dose: 40 mg Heparin Sodium (Porcine) (Heparin -) 5,000 unit SQ TID [facility] Stop: 05/11/19 10:00 Last Admin: 05/11/19 05:57 Dose: 5,000 unit Piperacillin Sod/Tazobactam (Sod 3.375 gm/ Dextrose) 50 mls @ 100 mls/hr IVPB Q8H-IV [facility]; Protocol Last Admin: 05/11/19 02:09 Dose: 100 mls/hr Amiodarone HCl/Dextrose (Nexterone 360 Mg/200 Ml Bag) 360 mg in 200 mls @ 16.667 mls/hr IVPB ASDIR [facility]; Protocol Last Admin: 05/10/19 18:43 Dose: 16.667 mls/hr Insulin Aspart (Novolog Vial Sliding Scale -) 1 vial SQ Q6H [facility]; Protocol Last Admin: 05/11/19 01:44 Dose: 6 units Ipratropium [place] (Atrovent 0.02% Nebulizer -) 1 amp NEB Q6H PRN PRN Reason: DYSPEPSIA Stop: 05/17/19 11:29 Last Admin: 05/10/19 21:50 Dose: 1 amp Methylprednisolone Sodium Succinate (Solu-Medrol -) 40 mg IVPUSH Q8H-IV [facility] Last Admin: 05/11/19 02:09 Dose: 40 mg Metoprolol Tartrate (Lopressor Injection -) 5 mg IVPUSH Q4H PRN PRN Reason: TACHYCARDIA Last Admin: 05/10/19 08:43 Dose: 5 mg Metoprolol Tartrate (Lopressor Injection -) 10 mg IVPUSH Q6H-IV [facility]ISSA Last Admin: 05/11/19 02:10 Dose: 10 mg Pantoprazole Sodium (Protonix Iv) 40 mg IVPUSH DAILY [facility] Last Admin: 05/10/19 09:51 Dose: 40 mg Vancomycin HCl (Vancomycin (Pre-Docked)) 1,000 mg IVPB DAILY [facility]; Protocol - Objective Vital Signs: Vital Signs Temperature 98.3 F 05/10/19 17:53 Pulse Rate 123 H 05/11/19 05:56 Respiratory Rate 24 H 05/11/19 04:00 Blood Pressure 108/61 05/11/19 04:00 O2 Sat by Pulse Oximetry (%) 100 05/11/19 07:05 Eyes: Yes: WNL, Conjunctiva Clear, EOM Intact HENT: Yes: WNL, Atraumatic, Normocephalic Neck: Yes: WNL, Supple, Trachea Midline Cardiovascular: Yes: Tachycardia, Pulse Irregular Respiratory: Yes: WNL, Regular, CTA Bilaterally Gastrointestinal: Yes: WNL, Normal Bowel Sounds Genitourinary: Yes: WNL Musculoskeletal: Yes: WNL Extremities: Yes: WNL Edema: No Integumentary: Yes: WNL Neurological: Yes: WNL, Alert, Oriented ...Motor Strength: WNL Psychiatric: Yes: WNL Labs: CBC, BMP 05/11/19 05:55 05/11/19 05:55 INR, PTT INR 1.09 (0.83-1.09) 05/05/19 05:30 Assessment/Plan Problem List - Problems (1) Pneumonia Code(s): J18.9 - PNEUMONIA, UNSPECIFIED ORGANISM Qualifiers: Pneumonia type: due to unspecified organism (2) Acute hypercapnic respiratory failure due to obstructive sleep apnea Code(s): J96.02 - ACUTE RESPIRATORY FAILURE WITH HYPERCAPNIA; G47.33 - OBSTRUCTIVE SLEEP APNEA (ADULT) (PEDIATRIC) (3) Acute decompensated heart failure Code(s): I50.9 - HEART FAILURE, UNSPECIFIED (4) Acute renal failure Code(s): N17.9 - ACUTE KIDNEY FAILURE, UNSPECIFIED Qualifiers: Acute renal failure type: unspecified Qualified Code(s): N17.9 - Acute kidney failure, unspecified (5) Sarcoidosis of other sites Code(s): D86.89 - SARCOIDOSIS OF OTHER SITES (6) Type 2 diabetes mellitus Code(s): E11.9 - TYPE 2 DIABETES MELLITUS WITHOUT COMPLICATIONS Qualifiers: Diabetes mellitus custodial insulin use: without custodial use Diabetes mellitus complication detail: with chronic kidney disease Chronic kidney disease stage: stage 2 (mild) (7) Atrial fibrillation and flutter Code(s): I48.91 - UNSPECIFIED ATRIAL FIBRILLATION; I48.92 - UNSPECIFIED ATRIAL FLUTTER Assessment/Plan 05/01/2019 Normal LV and RV size and fxn, tr TR 03/14/2019 Normal LV size and fxn, no thrombus ADEEL, mild-mod dilated and HK RV, tr MR, mild-mod TR, tr CO, trace pericardial effusion 1. Acute hypoxic and hypercapneic respiratory failure on mechanical ventilation 2. Pneumonia, post septic shock, Gram Positive Bacteremia, ARDS 3. Sarcoidosis confirmed by skin biopsy, r/o cardiac involvement 4. OSAS nonadherent to cpap 5. Paroxysmal Aflutter/Afib with RVR 6. Acute on chronic diastolic heart failure 7. Acute on CKD with hyperkalemia resolving 8. Type 2 DM 9. Anemia P:1. Empiric abx f/u C&S, IV steroid taper with GI protection, BD, enteral feeds 2. Remains off vasopressin and Levophed gtt for MAP>65 mmHg 3. Vent management per ABG, ARDS protocol and off paralysis 4. Rate-control with oral and IV Lopressor with uptitration as hemodynamics tolerate, eliquis 5 bid, may place on cardizem gtt for further rate-control 5. Lasix 40 IV bid with monitor diuretic response, renal fxn and electrolytes 6. Resume lisinopril 10 qd once renal function and hyperkalemia stabilizes 7. He f/u with Dr. Genaro Davila (cardiology at [place]), cardiac PET or MRI to exclude cardiac involvement in sarcoidosis as outpatient. Coverage for dr. Encinas cc time spent 37 min
[2019-05-11 08:27] LABS: BILIRUBIN,TOTAL 0.6 mg/dL (0.2-1)
[2019-05-11] MEDS ORDERED: DILTIAZEM INJECTION 125 MG in DEXTROSE 5%-WATER - 100 ML IVPB SCH ×2 (08:30→10:15)
--- NOTE | 2019-05-11 09:10 | PN ---
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 (short form) - Note 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: Renal follow up for RYNE Coverage for Dr. Kelley Seen and examined in the ICU awake on BIPAP Urine output ~4.3L yesterday denies any pain making urine via ortiz Vital Signs Temperature 99.4 F 05/11/19 06:00 Pulse Rate 124 H 05/11/19 06:00 Respiratory Rate 17 05/11/19 06:00 Blood Pressure 107/67 05/11/19 06:00 O2 Sat by Pulse Oximetry (%) 100 05/11/19 07:05 Intake & Output 05/08/19 05/09/19 05/10/19 05/11/19 23:59 23:59 23:59 23:59 Intake Total 3230 1580 1002 567 Output Total 4900 2200 4300 1000 Balance -1670 -620 -3298 -433 Weight 120.157 kg NAD on high flow O2 tachycardic, No M/R Dec BS, no wheeze obese, soft NT/ND no LE edema ortiz in place CBC, BMP 05/11/19 05:55 05/11/19 05:55 Current Medications Apixaban (Eliquis -) 5 mg PO BID [facility] Last Admin: 05/10/19 13:22 Dose: Not Given Chlorhexidine Gluconate (Hibiclens For Decolonization -) 1 applic TP HS [facility] Last Admin: 05/10/19 21:25 Dose: 1 applic Diltiazem HCl (Cardizem Injection -) 10 mg IVPUSH Q4H PRN PRN Reason: TACHYCARDIA Last Admin: 05/10/19 08:30 Dose: 10 mg Ferrous Sulfate (Feosol) 300 mg NGT BID [facility] Last Admin: 05/10/19 21:25 Dose: Not Given Furosemide (Lasix Injection -) 40 mg IVPUSH BID@0600,1400 [facility] Last Admin: 05/11/19 08:02 Dose: 40 mg Heparin Sodium (Porcine) (Heparin -) 5,000 unit SQ TID ELISSA Stop: 05/11/19 10:00 Last Admin: 05/11/19 05:57 Dose: 5,000 unit Piperacillin Sod/Tazobactam (Sod 3.375 gm/ Dextrose) 50 mls @ 100 mls/hr IVPB Q8H-IV ELISSA; Protocol Last Admin: 02/02/20 02:09 Dose: 100 mls/hr Amiodarone HCl/Dextrose (Nexterone 360 Mg/200 Ml Bag) 360 mg in 200 mls @ 16.667 mls/hr IVPB ASDIR ELISSA; Protocol Last Admin: 05/10/19 18:43 Dose: 16.667 mls/hr Insulin Aspart (Novolog Vial Sliding Scale -) 1 vial SQ Q6H ELISSA; Protocol Last Admin: 05/11/19 01:44 Dose: 6 units Ipratropium [place] (Atrovent 0.02% Nebulizer -) 1 amp NEB Q6H PRN PRN Reason: DYSPEPSIA Stop: 05/17/19 11:29 Last Admin: 05/10/19 21:50 Dose: 1 amp Methylprednisolone Sodium Succinate (Solu-Medrol -) 40 mg IVPUSH Q8H-IV ELISSA Last Admin: 05/11/19 02:09 Dose: 40 mg Metoprolol Tartrate (Lopressor Injection -) 5 mg IVPUSH Q4H PRN PRN Reason: TACHYCARDIA Last Admin: 05/10/19 08:43 Dose: 5 mg Metoprolol Tartrate (Lopressor Injection -) 10 mg IVPUSH Q6H-IV [facility] Last Admin: 05/11/19 02:10 Dose: 10 mg Pantoprazole Sodium (Protonix Iv) 40 mg IVPUSH DAILY ELISSA Last Admin: 05/10/19 09:51 Dose: 40 mg Vancomycin HCl (Vancomycin (Pre-Docked)) 1,000 mg IVPB DAILY [facility]; Protocol Impression 1. RYNE 2. hyperkalemia 3. resp failure requiring intubation 4. resp acidosis 5. dm 6. hx htn 7. sleep apnea 8. obesity 9. hx non compliance 10. chf 11. sarcoid 12. volume overload 13. Afib with RVR Plan BUN/Cr rising over the last 24 hours. Likely represents intravascular volume depletion in setting of effective diuresis. Weights improved and urine output > 4L over the last 24 hours. Can consider titrating down dose of lasix or decreasing frequency. Na trending up, encourage oral hydration. If not able to tolerate oral hydration would start D5W concurrently with diuresis to avoid very signficant hypernatremia. Continue supplemental O2 as needed Can consider discontinuation of ortiz catheter HR control as per Cardiology Thank you Gildardo Shaw DO
[2019-05-11] MEDS: PANTOPRAZOLE SODIUM 40 MG VIAL IVPUSH SCH (09:36)
[2019-05-11] MEDS ORDERED: VANCOMYCIN 1 GM in D5W (PRE-DOCKED) 1,000 MG/250 ML IVPB SCH (10:00)
[2019-05-11] MEDS ORDERED: DEXTROSE 5%-WATER - 1,000 ML IV SCH (10:30)
--- NOTE | 2019-05-11 10:38 | PN ---
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, Physician History of Present Illness: REMAINS EXTUBATED AWAKE, ALERT ON HIGH FLOW O2 NO ACUTE DISTRESS AFEBRILE WBC WNL REPEAT BC NO GROWTH WORSENING AZOTEMIA - Current Medication List Current Medications: Active Medications Apixaban (Eliquis -) 5 mg PO BID [facility] Last Admin: 05/10/19 13:22 Dose: Not Given Chlorhexidine Gluconate (Hibiclens For Decolonization -) 1 applic TP HS ELISSA Last Admin: 05/10/19 21:25 Dose: 1 applic Diltiazem HCl (Cardizem Injection -) 10 mg IVPUSH Q4H PRN PRN Reason: TACHYCARDIA Last Admin: 05/10/19 08:30 Dose: 10 mg Diltiazem HCl (Cardizem Injection -) 20 mg IVPUSH ONCE ONE Stop: 05/11/19 11:01 Ferrous Sulfate (Feosol) 300 mg NGT BID ELISSA Last Admin: 05/10/19 21:25 Dose: Not Given Furosemide (Lasix Injection -) 40 mg IVPUSH DAILY [facility] Piperacillin Sod/Tazobactam (Sod 3.375 gm/ Dextrose) 50 mls @ 100 mls/hr IVPB Q8H-IV [facility]; Protocol Last Admin: 05/11/19 09:36 Dose: 100 mls/hr Amiodarone HCl/Dextrose (Nexterone 360 Mg/200 Ml Bag) 360 mg in 200 mls @ 16.667 mls/hr IVPB ASDIR ELISSA; Protocol Last Admin: 05/10/19 18:43 Dose: 16.667 mls/hr Diltiazem HCl 125 mg/ Dextrose 125 mls @ 5 mls/hr IVPB TITR ELISSA; Protocol Dextrose (D5w -) 1,000 mls @ 100 mls/hr IV .Q10H ELISSA Insulin Aspart (Novolog Vial Sliding Scale -) 1 vial SQ Q6H [facility]IS[facility]; Protocol Last Admin: 05/11/19 01:44 Dose: 6 units Ipratropium [place] (Atrovent 0.02% Nebulizer -) 1 amp NEB Q6H PRN PRN Reason: DYSPEPSIA Stop: 05/17/19 11:29 Last Admin: 05/10/19 21:50 Dose: 1 amp Methylprednisolone Sodium Succinate (Solu-Medrol -) 40 mg IVPUSH Q8H-IV [facility] Last Admin: 05/11/19 09:36 Dose: 40 mg Metoprolol Tartrate (Lopressor Injection -) 5 mg IVPUSH Q4H PRN PRN Reason: TACHYCARDIA Last Admin: 05/10/19 08:43 Dose: 5 mg Metoprolol Tartrate (Lopressor Injection -) 10 mg IVPUSH Q6H-IV [facility]SA Last Admin: 05/11/19 09:32 Dose: 10 mg Pantoprazole Sodium (Protonix Iv) 40 mg IVPUSH DAILY [facility] Last Admin: 05/11/19 09:36 Dose: 40 mg - Objective Vital Signs: Vital Signs Temperature 99.4 F 05/11/19 06:00 Pulse Rate 141 H 05/11/19 09:32 Respiratory Rate 22 H 05/11/19 09:38 Blood Pressure 177/84 H 05/11/19 09:32 O2 Sat by Pulse Oximetry (%) 96 05/11/19 09:38 Constitutional: Yes: No Distress, Obese Cardiovascular: Yes: Regular Rate and Rhythm, S1, S2 Respiratory: Yes: Diminished Gastrointestinal: Yes: Normal Bowel Sounds, Soft. No: Tenderness Edema: Yes Labs: CBC, BMP 05/11/19 05:55 05/11/19 05:55 INR, PTT INR 1.09 (0.83-1.09) 05/05/19 05:30 Assessment/Plan ACUTE RESP FAILURE S/P EXTUBATION CHF/ PNEUMONIA +BC SCN, GPR ? SIGNIFICANCE RENAL FAILURE CONTINUE VENTILATORY/ HEMODYNAMIC SUPPORT CONTINUE ZOSYN D/C VANCOMYCIN
--- NOTE | 2019-05-11 10:39 | PN ---
Teaching Attending Note Name of Resident: Sravanthi Foreman ATTENDING PHYSICIAN STATEMENT I saw and evaluated the patient. I reviewed the resident's note and discussed the case with the resident. I agree with the resident's findings and plan as documented. SUBJECTIVE: Pt seen and examined in the ICU. Remains HFOT 60% FiO2. More alert, awake today. Rates still rapid. OBJECTIVE: Vital Signs Period Temp Pulse Resp BP Sys/[place] Pulse Ox Last 24 Hr 98.3 F-99.4 F 110-145 17-44 107-177/61-95 96-100 Intake & Output 05/08/19 05/09/19 05/10/19 05/11/19 23:59 23:59 23:59 23:59 Intake Total 3230 1580 1002 567 Output Total 4900 2200 4300 1000 Balance -1670 -620 -3298 -433 Weight 120.157 kg Gen: more alert, mildly tachypneic at rest Heart: tachycardic, irregular Lung: scattered rhonchi Abd: soft, nontender Ext: + edema CBC, BMP 05/11/19 05:55 05/11/19 05:55 Active Medications Apixaban (Eliquis -) 5 mg PO BID [facility] Last Admin: 05/10/19 13:22 Dose: Not Given Chlorhexidine Gluconate (Hibiclens For Decolonization -) 1 applic TP HS [facility] Last Admin: 05/10/19 21:25 Dose: 1 applic Diltiazem HCl (Cardizem Injection -) 10 mg IVPUSH Q4H PRN PRN Reason: TACHYCARDIA Last Admin: 05/10/19 08:30 Dose: 10 mg Diltiazem HCl (Cardizem Injection -) 20 mg IVPUSH ONCE ONE Stop: 05/11/19 11:01 Ferrous Sulfate (Feosol) 300 mg NGT BID [facility] Last Admin: 05/10/19 21:25 Dose: Not Given Furosemide (Lasix Injection -) 40 mg IVPUSH DAILY [facility] Piperacillin Sod/Tazobactam (Sod 3.375 gm/ Dextrose) 50 mls @ 100 mls/hr IVPB Q8H-IV [facility]; Protocol Last Admin: 05/11/19 09:36 Dose: 100 mls/hr Amiodarone HCl/Dextrose (Nexterone 360 Mg/200 Ml Bag) 360 mg in 200 mls @ 16.667 mls/hr IVPB ASDIR [facility]; Protocol Last Admin: 05/10/19 18:43 Dose: 16.667 mls/hr Diltiazem HCl 125 mg/ Dextrose 125 mls @ 5 mls/hr IVPB TITR [facility]; Protocol Dextrose (D5w -) 1,000 mls @ 100 mls/hr IV .Q10H [facility]IS[facility] Insulin Aspart (Novolog Vial Sliding Scale -) 1 vial SQ Q6H [facility]; Protocol Last Admin: 05/11/19 01:44 Dose: 6 units Ipratropium [place] (Atrovent 0.02% Nebulizer -) 1 amp NEB Q6H PRN PRN Reason: DYSPEPSIA Stop: 05/17/19 11:29 Last Admin: 05/10/19 21:50 Dose: 1 amp Methylprednisolone Sodium Succinate (Solu-Medrol -) 40 mg IVPUSH Q8H-IV [facility] Last Admin: 05/11/19 09:36 Dose: 40 mg Metoprolol Tartrate (Lopressor Injection -) 5 mg IVPUSH Q4H PRN PRN Reason: TACHYCARDIA Last Admin: 05/10/19 08:43 Dose: 5 mg Metoprolol Tartrate (Lopressor Injection -) 10 mg IVPUSH Q6H-IV [facility] Last Admin: 05/11/19 09:32 Dose: 10 mg Pantoprazole Sodium (Protonix Iv) 40 mg IVPUSH DAILY [facility] Last Admin: 05/11/19 09:36 Dose: 40 mg ASSESSMENT AND PLAN: Acute Hypoxic and Hypercapneic Respiratory Failure Pneumonia Gram Positive Bacteremia Septic Shock Volume Overload r/o ARDS Lactic Acidosis Hyperkalemia Acute Kidney Injury Atrial Flutter with RVR HTN DM Anemia - continue antibiotics - decrease lasix - monitor urine output, creatinine - monitor lytes - on empiric medrol - inhaled bronchodilators - rate control, start on cardizem gtt - continue anticoagulation - taper fiO2 to keep SpO2 >90% - BiPAP as needed to assist in work of breathing - free water replacement - DVT/GI prophylaxis - continue ICU monitoring critical care time spent in reviewing chart, evaluating patient and formulating plan 35 min
--- NOTE | 2019-05-11 10:42 | PN ---
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, Physician - Current Medication List Current Medications: Active Medications Apixaban (Eliquis -) 5 mg PO BID [facility] Last Admin: 05/10/19 13:22 Dose: Not Given Chlorhexidine Gluconate (Hibiclens For Decolonization -) 1 applic TP HS [facility] Last Admin: 05/10/19 21:25 Dose: 1 applic Diltiazem HCl (Cardizem Injection -) 10 mg IVPUSH Q4H PRN PRN Reason: TACHYCARDIA Last Admin: 05/10/19 08:30 Dose: 10 mg Diltiazem HCl (Cardizem Injection -) 20 mg IVPUSH ONCE ONE Stop: 05/11/19 11:01 Ferrous Sulfate (Feosol) 300 mg NGT BID [facility] Last Admin: 05/10/19 21:25 Dose: Not Given Furosemide (Lasix Injection -) 40 mg IVPUSH DAILY [facility] Piperacillin Sod/Tazobactam (Sod 3.375 gm/ Dextrose) 50 mls @ 100 mls/hr IVPB Q8H-IV ELISSA; Protocol Last Admin: 05/11/19 09:36 Dose: 100 mls/hr Amiodarone HCl/Dextrose (Nexterone 360 Mg/200 Ml Bag) 360 mg in 200 mls @ 16.667 mls/hr IVPB ASDIR ELISSA; Protocol Last Admin: 05/10/19 18:43 Dose: 16.667 mls/hr Diltiazem HCl 125 mg/ Dextrose 125 mls @ 5 mls/hr IVPB TITR ELISSA; Protocol Dextrose (D5w -) 1,000 mls @ 100 mls/hr IV .Q10H [facility] Insulin Aspart (Novolog Vial Sliding Scale -) 1 vial SQ Q6H ELISSA; Protocol Last Admin: 05/11/19 01:44 Dose: 6 units Ipratropium [place] (Atrovent 0.02% Nebulizer -) 1 amp NEB Q6H PRN PRN Reason: DYSPEPSIA Stop: 05/17/19 11:29 Last Admin: 05/10/19 21:50 Dose: 1 amp Methylprednisolone Sodium Succinate (Solu-Medrol -) 40 mg IVPUSH Q8H-IV ELISSA Last Admin: 05/11/19 09:36 Dose: 40 mg Metoprolol Tartrate (Lopressor Injection -) 5 mg IVPUSH Q4H PRN PRN Reason: TACHYCARDIA Last Admin: 05/10/19 08:43 Dose: 5 mg Metoprolol Tartrate (Lopressor Injection -) 10 mg IVPUSH Q6H-IV [facility] Last Admin: 05/11/19 09:32 Dose: 10 mg Pantoprazole Sodium (Protonix Iv) 40 mg IVPUSH DAILY [facility] Last Admin: 05/11/19 09:36 Dose: 40 mg - Objective Vital Signs: Vital Signs Temperature 99.4 F 05/11/19 06:00 Pulse Rate 141 H 05/11/19 09:32 Respiratory Rate 22 H 05/11/19 09:38 Blood Pressure 177/84 H 05/11/19 09:32 O2 Sat by Pulse Oximetry (%) 96 05/11/19 09:38 Eyes: Yes: WNL, Conjunctiva Clear, EOM Intact HENT: Yes: WNL, Atraumatic, Normocephalic Neck: Yes: WNL, Supple, Trachea Midline Cardiovascular: Yes: Pulse Irregular, S1, S2 Respiratory: Yes: WNL, Regular, CTA Bilaterally Gastrointestinal: Yes: WNL, Normal Bowel Sounds Genitourinary: Yes: WNL Musculoskeletal: Yes: WNL Extremities: Yes: WNL Edema: No Integumentary: Yes: WNL ...Motor Strength: WNL Psychiatric: Yes: WNL Labs: CBC, BMP 05/11/19 05:55 05/11/19 05:55 INR, PTT INR 1.09 (0.83-1.09) 05/05/19 05:30 Assessment/Plan Problem List - Problems (1) Pneumonia Code(s): J18.9 - PNEUMONIA, UNSPECIFIED ORGANISM Qualifiers: Pneumonia type: due to unspecified organism (2) Acute hypercapnic respiratory failure due to obstructive sleep apnea Code(s): J96.02 - ACUTE RESPIRATORY FAILURE WITH HYPERCAPNIA; G47.33 - OBSTRUCTIVE SLEEP APNEA (ADULT) (PEDIATRIC) (3) Acute decompensated heart failure Code(s): I50.9 - HEART FAILURE, UNSPECIFIED (4) Acute renal failure Code(s): N17.9 - ACUTE KIDNEY FAILURE, UNSPECIFIED Qualifiers: Acute renal failure type: unspecified Qualified Code(s): N17.9 - Acute kidney failure, unspecified (5) Sarcoidosis of other sites Code(s): D86.89 - SARCOIDOSIS OF OTHER SITES (6) Type 2 diabetes mellitus Code(s): E11.9 - TYPE 2 DIABETES MELLITUS WITHOUT COMPLICATIONS Qualifiers: 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 Acute hypoxic and hypercapneic respiratory failure on mechanical ventilation 2. Pneumonia, post septic shock, Gram Positive Bacteremia, ARDS 3. Sarcoidosis confirmed by skin biopsy, r/o cardiac involvement 4. OSAS nonadherent to cpap 5. Paroxysmal Aflutter/Afib with RVR 6. Acute on chronic diastolic heart failure 7. Acute on CKD with hyperkalemia resolving 8. Type 2 DM 9. Anemia P:1. Empiric abx f/u C&S, IV steroid taper with GI protection, BD, enteral feeds 2. Remains off vasopressin and Levophed gtt for MAP>65 mmHg 3. Vent management per ABG, ARDS protocol and off paralysis 4. Rate-control unable to take PO meds due to poor mental status. Cont IV Lopressor with uptitration as hemodynamics tolerate, eliquis 5 bid, consider d/ c Amiodarone drip - start cardizem gtt for further rate-control. 5. Lasix 40 IV bid with monitor diuretic response, renal fxn and electrolytes 6. Resume lisinopril 10 qd once renal function and hyperkalemia stabilizes 7. He f/u with Dr. Genaro Davila (cardiology at [place]), cardiac PET or MRI to exclude cardiac involvement in sarcoidosis as outpatient. d/w dr. Dave Coverage for dr. Encinas cc time spent 37 min
[2019-05-11] MEDS: APIXABAN 5 MG TABLET PO SCH ×2 (10:48→21:41)
[2019-05-11] MEDS ORDERED: PT OWN MED DRAWER 7, Y5N ONE ×2 (10:51→13:13)
[2019-05-11] MEDS: FERROUS SO4 300 MG/5 ML ORAL SOLN UNIT DOSE CUPS NGT SCH ×2 (10:51→22:18)
[2019-05-11] MEDS ORDERED: dilTIAZem HCL 50 MG/10 ML - 10 ML VIAL IVPUSH ONE (11:00)
[2019-05-11] MEDS: AMIODARONE IN DEXTROSE,ISO-OSM 360 MG/200 ML BAG IVPB SCH (12:11)
--- NOTE | 2019-05-11 13:24 | PN ---
Physical Exam: SUBJECTIVE: Patient seen and examined. Was on BIPAP overnight, now on high flow nasal cannula, saturating well. OBJECTIVE: Vital Signs Period Temp Pulse Resp BP Sys/[place] Pulse Ox Last 24 Hr 97.9 F-99.4 F 110-141 17-42 107-177/61-90 96-100 GENERAL: Awake, alert. oriented to self & place not time. LUNGS: scattered rhonchi HEART: Tachycardic, S1S2. no murmurs ABDOMEN: Soft NTND. +BS. EXTREMITIES: 2+ pulses intact b/l. 1+ pitting LE edema. SKIN: Warm, dry Laboratory Results - last 24 hr 05/10/19 05/10/19 05/11/19 13:31 18:01 01:29 WBC RBC Hgb Hct MCV MCH MCHC RDW Plt Count MPV Absolute Neuts (auto) Neutrophils % Lymphocytes % Monocytes % Eosinophils % Basophils % Nucleated RBC % PTT (Actin FS) Sodium Potassium Chloride Carbon Dioxide Anion Gap BUN Creatinine Est GFR (CKD-EPI)AfAm Est GFR (CKD-EPI)NonAf POC Glucometer 307 354 288 Random Glucose Calcium Phosphorus Magnesium Total Bilirubin AST ALT Alkaline Phosphatase Total Protein Albumin 05/11/19 05/11/19 05/11/19 05:55 05:55 05:55 WBC 9.9 RBC 5.11 Hgb 12.3 Hct 41.2 MCV 80.6 MCH 24.1 L MCHC 29.9 L RDW 19.8 H Plt Count 291 MPV 9.3 Absolute Neuts (auto) 8.3 H Neutrophils % 83.9 H Lymphocytes % 3.5 L D Monocytes % 12.5 H Eosinophils % 0.0 Basophils % 0.1 Nucleated RBC % 0 PTT (Actin FS) 27.1 Sodium 152 H Potassium 4.2 Chloride 113 H Carbon Dioxide 33 H Anion Gap 6 L BUN 66.5 H Creatinine 1.8 H Est GFR (CKD-EPI)AfAm 49.40 Est GFR (CKD-EPI)NonAf 42.63 POC Glucometer Random Glucose 259 H Calcium 9.8 Phosphorus 3.7 Magnesium 2.3 Total Bilirubin 0.6 AST 68 H ALT 106 H Alkaline Phosphatase 92 Total Protein 6.6 Albumin 2.8 L 05/11/19 12:04 WBC RBC Hgb Hct MCV MCH MCHC RDW Plt Count MPV Absolute Neuts (auto) Neutrophils % Lymphocytes % Monocytes % Eosinophils % Basophils % Nucleated RBC % PTT (Actin FS) Sodium Potassium Chloride Carbon Dioxide Anion Gap BUN Creatinine Est GFR (CKD-EPI)AfAm Est GFR (CKD-EPI)NonAf POC Glucometer 314 Random Glucose Calcium Phosphorus Magnesium Total Bilirubin AST ALT Alkaline Phosphatase Total Protein Albumin Active Medications Generic Name Dose Route Start Last Admin Trade Name Freq PRN Reason Stop Dose Admin Apixaban 5 mg 05/08/19 22:00 05/11/19 10:48 Eliquis - PO 5 mg BID ELISSA Administration Chlorhexidine Gluconate 1 applic 04/30/19 22:00 05/10/19 21:25 Hibiclens For Decolonization - TP 1 applic HS ELISSA Administration Diltiazem HCl 10 mg 05/10/19 05:04 05/10/19 08:30 Cardizem Injection - IVPUSH 10 mg Q4H PRN Administration TACHYCARDIA Ferrous Sulfate 300 mg 05/09/19 10:00 05/11/19 10:51 Feosol NGT 300 mg BID ELISSA Administration Furosemide 40 mg 05/11/19 10:00 05/11/19 10:48 Lasix Injection - IVPUSH Not Given DAILY ELISSA Piperacillin Sod/Tazobactam 50 mls @ 100 mls/hr 05/01/19 18:00 05/11/19 09:36 Sod 3.375 gm/ Dextrose IVPB 100 mls/hr Q8H-IV ELISSA Administration Protocol Amiodarone HCl/Dextrose 360 mg in 200 mls @ 16.667 mls/hr 05/10/19 11:30 05/11/19 12:11 Nexterone 360 Mg/200 Ml Bag IVPB 16.667 mls/hr ASDIR ELISSA Administration Protocol 0.5 MG/MIN Diltiazem HCl 125 mg/ Dextrose 125 mls @ 5 mls/hr 05/11/19 10:15 IVPB TITR ELISSA Protocol 5 MG/HR Dextrose 1,000 mls @ 100 mls/hr 05/11/19 10:30 D5w - IV .Q10H ELISSA Insulin Aspart 1 vial 05/08/19 12:15 05/11/19 12:09 Novolog Vial Sliding Scale - SQ 8 units Q6H ELISSA Administration Protocol Ipratropium [place] 1 amp 05/10/19 11:29 05/10/19 21:50 Atrovent 0.02% Nebulizer - NEB 05/17/19 11:29 1 amp Q6H PRN Administration DYSPEPSIA Methylprednisolone Sodium Succinate 40 mg 05/02/19 14:05 05/11/19 09:36 Solu-Medrol - IVPUSH 40 mg Q8H-IV ELISSA Administration Metoprolol Tartrate 5 mg 04/30/19 08:57 05/10/19 08:43 Lopressor Injection - IVPUSH 5 mg Q4H PRN Administration TACHYCARDIA Metoprolol Tartrate 10 mg 05/10/19 21:00 05/11/19 09:32 Lopressor Injection - IVPUSH 10 mg Q6H-IV ELISSA Administration Pantoprazole Sodium 40 mg 05/01/19 10:00 05/11/19 09:36 Protonix Iv IVPUSH 40 mg DAILY ELISSA Administration ASSESSMENT/PLAN: 53 y.o. 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 -Extubated, now aaox2 -continue to monitor mental status #CV -off pressor support -Hx of A-flutter, continue eliquis 5mg BID -Hx of HFpEF, continue lasix 40mg IV daily, monitor I's & O's -daily weights -tachycardic, started diltiazem drip for rate control; cardizem 10mg IV q4h prn -Amiodarone drip, can titrate down as rate permits -Lopressor TID and PRN -Cardiology following #Pulm -Acute Hypoxic and Hypercapneic Respiratory Failure, presenting with ARDS -Remains on high flow NC 60%/60L; prn bipap overnight-- maintain SaO2 >90% -continue Solumedrol 40mg q8h IV daily -atrovent nebs prn #Renal -BUN/Creatinine 66.5/1.8-- trend -encourage PO fluid intake -started D5W for persistent hypernatremia -Nephrology following -d/c Ortiz when appropriate #GI -Protonix 40 mg daily -f/u swallow evaluation -encourage po fluid intake #ID -continue zosyn -vanc d/c'd -repeat blood cx's neg -ID following #Endo -Hx of DM -BGMs ACHS -ISS #FENLTD -D5W @100cc/hr-- can d/c once tolerating po fluids -trend lytes replete prn -NPO pending swallow evaluation -peripheral line -ortiz in place Dispo Continuing ICU level of care Visit type - Emergency Visit Emergency Visit: No - New Patient This patient is new to me today: No - Critical Care Critical Care patient: Yes Total Critical Care Time (in minutes): 45 Critical Care Statement: The care of this patient involved high complexity decision making to prevent further life threatening deterioration of the patient's condition and/or to evaluate & treat vital organ system(s) failure or risk of failure. ATTENDING PHYSICIAN STATEMENT I saw and evaluated the patient. I reviewed the resident's note and discussed the case with the resident. I agree with the resident's findings and plan as documented. SUBJECTIVE: OBJECTIVE: ASSESSMENT AND PLAN:
--- NOTE | 2019-05-11 17:10 | PN ---
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 (short form) - Note 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: SUBJECTIVE: Successfully extubated 05/09/19 to HFOT. Awake following commands. Still requiring HFOT with tachypnea and tachycardia. Verbalizing some but speech appears slowed and tedious. Denies any pain or discomfort. OBJECTIVE: Afebrile. RVR. Tachypneic. HFOT via NC. Making eye contact. Responding to commands. Responses slowed. Generalized decrease in power UEs and LEs. Last Vital Signs Temp Pulse Resp BP Pulse Ox 98.0 F 120 H 33 H 130/77 90s on HFOT 05/11/19 14:00 05/11/19 16:00 05/11/19 16:00 05/11/19 16:00 05/11/19 10:00 Heart - S1, S2, RVR Lungs - good air entry bilaterally. ON HFOT via NC. 50% Abdomen - High BMI, soft, non-tender. Bowel Sounds normal. Extremities - Mild edema, no calf tenderness. Neuro - eyes open, following commands. Generalized weakness all limbs. JACKIE. Laboratory Results - last 24 hr 05/10/19 05/11/19 05/11/19 18:01 01:29 05:55 WBC RBC Hgb Hct MCV MCH MCHC RDW Plt Count MPV Absolute Neuts (auto) Neutrophils % Lymphocytes % Monocytes % Eosinophils % Basophils % Nucleated RBC % PTT (Actin FS) 27.1 Sodium Potassium Chloride Carbon Dioxide Anion Gap BUN Creatinine Est GFR (CKD-EPI)AfAm Est GFR (CKD-EPI)NonAf POC Glucometer 354 288 Random Glucose Calcium Phosphorus Magnesium Total Bilirubin AST ALT Alkaline Phosphatase Total Protein Albumin 05/11/19 05/11/19 05/11/19 05:55 05:55 12:04 WBC 9.9 RBC 5.11 Hgb 12.3 Hct 41.2 MCV 80.6 MCH 24.1 L MCHC 29.9 L RDW 19.8 H Plt Count 291 MPV 9.3 Absolute Neuts (auto) 8.3 H Neutrophils % 83.9 H Lymphocytes % 3.5 L D Monocytes % 12.5 H Eosinophils % 0.0 Basophils % 0.1 Nucleated RBC % 0 PTT (Actin FS) Sodium 152 H Potassium 4.2 Chloride 113 H Carbon Dioxide 33 H Anion Gap 6 L BUN 66.5 H Creatinine 1.8 H Est GFR (CKD-EPI)AfAm 49.40 Est GFR (CKD-EPI)NonAf 42.63 POC Glucometer 314 Random Glucose 259 H Calcium 9.8 Phosphorus 3.7 Magnesium 2.3 Total Bilirubin 0.6 AST 68 H ALT 106 H Alkaline Phosphatase 92 Total Protein 6.6 Albumin 2.8 L Current Medications Generic Name Dose Route Start Last Admin Trade Name Freq PRN Reason Stop Dose Admin Apixaban 5 mg 05/08/19 22:00 05/11/19 10:48 Eliquis - PO 5 mg BID ELISSA Administration Chlorhexidine Gluconate 1 applic 04/30/19 22:00 05/10/19 21:25 Hibiclens For Decolonization - TP 1 applic HS ELISSA Administration Diltiazem HCl 10 mg 05/10/19 05:04 05/10/19 08:30 Cardizem Injection - IVPUSH 10 mg Q4H PRN Administration TACHYCARDIA Ferrous Sulfate 300 mg 05/09/19 10:00 05/11/19 10:51 Feosol NGT 300 mg BID ELISSA Administration Furosemide 40 mg 05/11/19 10:00 05/11/19 10:48 Lasix Injection - IVPUSH Not Given DAILY ELISSA Piperacillin Sod/Tazobactam 50 mls @ 100 mls/hr 05/01/19 18:00 05/11/19 09:36 Sod 3.375 gm/ Dextrose IVPB 100 mls/hr Q8H-IV ELISSA Administration Protocol Amiodarone HCl/Dextrose 360 mg in 200 mls @ 16.667 mls/hr 05/10/19 11:30 05/29 12:11 Nexterone 360 Mg/200 Ml Bag IVPB 16.667 mls/hr ASDIR ELISSA Administration Protocol 0.5 MG/MIN Diltiazem HCl 125 mg/ Dextrose 125 mls @ 5 mls/hr 05/11/19 10:15 IVPB TITR ELISSA Protocol 5 MG/HR Dextrose 1,000 mls @ 100 mls/hr 05/11/19 10:30 D5w - IV .Q10H ELISSA Insulin Aspart 1 vial 05/08/19 12:15 05/11/19 12:09 Novolog Vial Sliding Scale - SQ 8 units Q6H ELISSA Administration Protocol Ipratropium [place] 1 amp 05/10/19 11:29 05/10/19 21:50 Atrovent 0.02% Nebulizer - NEB 05/17/19 11:29 1 amp Q6H PRN Administration DYSPEPSIA Methylprednisolone Sodium Succinate 40 mg 05/02/19 14:05 05/11/19 09:36 Solu-Medrol - IVPUSH 40 mg Q8H-IV ELISSA Administration Metoprolol Tartrate 5 mg 04/30/19 08:57 05/10/19 08:43 Lopressor Injection - IVPUSH 5 mg Q4H PRN Administration TACHYCARDIA Metoprolol Tartrate 10 mg 05/10/19 21:00 05/11/19 15:59 Lopressor Injection - IVPUSH 10 mg Q6H-IV ELISSA Administration Pantoprazole Sodium 40 mg 05/01/19 10:00 05/11/19 09:36 Protonix Iv IVPUSH 40 mg DAILY ELISSA Administration Home Medications Medication Instructions Recorded Amiodarone HCl 200 mg PO DAILY 04/30/19 Apixaban [Eliquis] 5 mg PO BID 04/30/19 Diltiazem Cd [Cardizem Cd -] 300 mg PO DAILY 04/30/19 Furosemide 40 mg PO BID 04/30/19 Glipizide 10 mg PO DAILY 04/30/19 Lisinopril 10 mg PO DAILY 04/30/19 Metformin HCl [Glucophage] 1,000 mg PO BID 04/30/19 Sitagliptin Phosphate [Januvia] 100 mg PO DAILY 04/30/19 ASSESSMENT AND PLAN: 53 year old male with Obesity, DM 2, Sarcoidosis, Hx systolic CHF (EF 45-50%, now EF normal), EMMY (non-adherent with CPAP), and Atrial Flutter presented with sudden onset of shortness of breath, requiring intubation and mechanical ventilation. 1. Acute Hypoxic and Hypercapneic Respiratory Failure secondary to Acute Diastolic CHF +/- PNA Extubated 05/09/19 IV BID Lasix diuresis ongoing - > 4L neg balance yesterday - Lasix dose reduced to OD. Continue Zosyn, discontinue Vanco as per ID. CXR - atelectasis at bases. Still Tachypneic but comfortable. Wean down O2 requirements as per Pulm/ Set Up Operator. Continue Bronchodilator Nebs, Steroids. Rest as per Set Up Operator 2. Cardiogenic Shock sec to Acute Diastolic CHF vs Septic Shock, etiology unclear - resolved, off pressors. Weaned off Levophed and Vasopressin Blood Cx - Staph epi, likely contaminant. Echo - no vegetations. Repeat Blood Cx neg x 2. Continue Zosyn as per ID. Zosyn discontinued. Cardiology following - for out-patient Cardiac MRI to asses degree of sarcoid involvement. BP rebounded well - On Metoprolol IV, Diltiazem drip started. Lisinopril held. 3. Atrial flutter with RVR - not controlled on Lopressor IV BID, Amiodarone drip. Diltiazem drip started. Loaded with Digoxin. Heparin drip transitioned to oral Eliquis for AC. Cardiology following. 4. RYNE with Hyperkalemia - likely secondary to Cardiorenal phenomenon, Creat improved but remains mildy elevated at 1.8. Lasix diuresis ongoing - dosing reduced to OD. Nephrology following. 5. DM 2 - Insulin drip transitioned to Novolog as per sliding scale. Normally on Glipizide, Metformin and Januvia at home. 6. Generalized weakness s/p Intubation/Extubation ?deconditioning. CT Head once hemodynamically stable. PT eval. TSH, CPK levels. 7. Iron Deficiency Anemia - FeSO4 supplementation. No evidence of active blood loss. For out-patient Ix. DVT Px - Eliquis GI Px - PPI Needs PT Visit type - Emergency Visit Emergency Visit: Yes ED Registration Date: 04/30/19 Care time: The patient presented to the Emergency Department on the above date and was hospitalized for further evaluation of their emergent condition. - New Patient This patient is new to me today: No - Critical Care Critical Care patient: Yes Total Critical Care Time (in minutes): 40 Critical Care Statement: The care of this patient involved high complexity decision making to prevent further life threatening deterioration of the patient 's condition and/or to evaluate & treat vital organ system(s) failure or risk of failure. - Discharge Referral Referred to [facility] Med P.C.: No
[2019-05-11] MEDS: CHLORHEXIDINE GLUCONATE 4% CLEANSER FOR DECOLONIZATION TP SCH (21:42)
[2019-05-11] MEDS ORDERED: MELATONIN 5 MG TABLETS PO ONE (21:53)
[2019-05-12] MEDS: INSULIN SLIDING SCALE (NOVOLOG) 1 VIAL SQ SCH (00:39)
[2019-05-12] MEDS ORDERED: PIPERACILLIN/TAZOBACTAM 3.375 GM VIAL IVPB ONE ×3 (01:32→15:35)
[2019-05-12] MEDS ORDERED: DEXTROSE 5%-WATER - 50 ML IVPB ONE ×3 (01:32→15:35)
[2019-05-12] MEDS: methylPREDNISolone NA SUCC 40 MG/1 ML VIAL IVPUSH SCH ×3 (02:53→21:24)
[2019-05-12] MEDS: PIPERACILLIN/TAZOB 3.375 GM 3.375 GM in DEXTROSE 5%-WATER - 50 ML IVPB SCH ×3 (02:53→17:02)
[2019-05-12] MEDS: METOPROLOL TARTRATE 5 MG/5 ML VIAL IVPUSH SCH ×4 (02:56→21:23)
[2019-05-12 06:35] LABS: BASO % 0.3 % (0-2.0); HEMATOCRIT 44.9 % (35.4-49); HEMOGLOBIN 13.4 GM/dL (11.7-16.9); LYMPH % 2.1 % (8-40); MCH 24.3 pg (25.7-33.7); MCHC 29.8 g/dl (32.0-35.9); MEAN CELL VOLUME 81.6 fl (80-96); MEAN PLT VOLUME 9.3 fl (7.5-11.1); MONO % 7.6 % (3.8-10.2); PLATELET COUNT 293 K/MM3 (134-434); RDW 19.8 % (11.9-15.9); WHITE BLOOD COUNT 8.9 K/mm3 (4.0-10.0)
--- NOTE | 2019-05-12 08:23 | PN ---
Physical Exam: SUBJECTIVE: Patient seen and examined NAEON. Patient with more difficulty tracking and following commands this AM. OBJECTIVE: Vital Signs Period Temp Pulse Resp BP Sys/[place] Pulse Ox Last 24 Hr 97.8 F-98.0 F 108-143 22-42 100-177/71-106 59-97 GENERAL: The patient is awake but does not answer orientation questions, only intermittently obeys commands HEAD: Normal with no signs of trauma. EYES: PERRL, extraocular movements intact, sclera anicteric, conjunctiva clear. No ptosis. ENT: Ears normal, nares patent, high flow in place NECK: Trachea midline, full range of motion, supple. LUNGS: Poor inspiratory effort, coarse lung sounds HEART: tachycardic, atrial flutter ABDOMEN: Soft, nontender, nondistended, normoactive bowel sounds EXTREMITIES: 2+ pulses, warm, well-perfused, no edema. NEUROLOGICAL: Cranial nerves II through XII grossly intact, but without normal speech SKIN: Warm, dry Laboratory Results - last 24 hr 05/11/19 05/11/19 05/11/19 05:55 12:04 17:19 WBC RBC Hgb Hct MCV MCH MCHC RDW Plt Count MPV Absolute Neuts (auto) Neutrophils % Lymphocytes % Monocytes % Eosinophils % Basophils % Nucleated RBC % PTT (Actin FS) Sodium 152 H Potassium 4.2 Chloride 113 H Carbon Dioxide 33 H Anion Gap 6 L BUN 66.5 H Creatinine 1.8 H Est GFR (CKD-EPI)AfAm 49.40 Est GFR (CKD-EPI)NonAf 42.63 POC Glucometer 314 400 Random Glucose 259 H Calcium 9.8 Phosphorus 3.7 Magnesium 2.3 Total Bilirubin 0.6 AST 68 H ALT 106 H Alkaline Phosphatase 92 Creatine Kinase 179 Creatine Kinase Index No Result Required. CK-MB (CK-2) < 1.0 Total Protein 6.6 Albumin 2.8 L TSH 1.59 Digoxin 05/12/19 05/12/19 05/12/19 00:27 05:52 05:52 WBC RBC Hgb Hct MCV MCH MCHC RDW Plt Count MPV Absolute Neuts (auto) Neutrophils % Lymphocytes % Monocytes % Eosinophils % Basophils % Nucleated RBC % PTT (Actin FS) 28.6 Sodium Potassium Chloride Carbon Dioxide Anion Gap BUN Creatinine Est GFR (CKD-EPI)AfAm Est GFR (CKD-EPI)NonAf POC Glucometer 367 Random Glucose Calcium Phosphorus Magnesium Total Bilirubin AST ALT Alkaline Phosphatase Creatine Kinase Creatine Kinase Index CK-MB (CK-2) Total Protein Albumin TSH Digoxin 1.27 05/12/19 06:00 WBC 8.9 RBC 5.50 Hgb 13.4 Hct 44.9 MCV 81.6 MCH 24.3 L MCHC 29.8 L RDW 19.8 H Plt Count 293 MPV 9.3 Absolute Neuts (auto) 8.0 Neutrophils % 90.0 H Lymphocytes % 2.1 L D Monocytes % 7.6 Eosinophils % 0.0 Basophils % 0.3 Nucleated RBC % 0 PTT (Actin FS) Sodium Potassium Chloride Carbon Dioxide Anion Gap BUN Creatinine Est GFR (CKD-EPI)AfAm Est GFR (CKD-EPI)NonAf POC Glucometer Random Glucose Calcium Phosphorus Magnesium Total Bilirubin AST ALT Alkaline Phosphatase Creatine Kinase Creatine Kinase Index CK-MB (CK-2) Total Protein Albumin TSH Digoxin Active Medications Generic Name Dose Route Start Last Admin Trade Name Freq PRN Reason Stop Dose Admin Apixaban 5 mg 05/08/19 22:00 05/11/19 21:41 Eliquis - PO 5 mg BID ELISSA Administration Chlorhexidine Gluconate 1 applic 04/30/19 22:00 05/11/19 21:42 Hibiclens For Decolonization - TP 1 applic HS ELISSA Administration Diltiazem HCl 10 mg 05/10/19 05:04 05/10/19 08:30 Cardizem Injection - IVPUSH 10 mg Q4H PRN Administration TACHYCARDIA Ferrous Sulfate 300 mg 05/09/19 10:00 05/11/19 22:18 Feosol NGT 300 mg BID ELISSA Administration Furosemide 40 mg 05/11/19 10:00 05/11/19 10:48 Lasix Injection - IVPUSH Not Given DAILY ELISSA Piperacillin Sod/Tazobactam 50 mls @ 100 mls/hr 05/01/19 18:00 05/12/19 02:53 Sod 3.375 gm/ Dextrose IVPB 100 mls/hr Q8H-IV ELISSA Administration Protocol Amiodarone HCl/Dextrose 360 mg in 200 mls @ 16.667 mls/hr 05/10/19 11:30 05/11/19 12:11 Nexterone 360 Mg/200 Ml Bag IVPB 16.667 mls/hr ASDIR ELISSA Administration Protocol 0.5 MG/MIN Diltiazem HCl 125 mg/ Dextrose 125 mls @ 5 mls/hr 05/11/19 10:15 05/12/19 01:23 IVPB 10 mg/hr TITR ELISSA 10 mls/hr Titration Protocol 5 MG/HR Dextrose 1,000 mls @ 100 mls/hr 05/11/19 10:30 D5w - IV .Q10H ELISSA Insulin Aspart 1 vial 05/08/19 12:15 05/12/19 00:39 Novolog Vial Sliding Scale - SQ 10 units Q6H ELISSA Administration Protocol Ipratropium [place] 1 amp 05/10/19 11:29 05/10/19 21:50 Atrovent 0.02% Nebulizer - NEB 05/17/19 11:29 1 amp Q6H PRN Administration DYSPEPSIA Methylprednisolone Sodium Succinate 40 mg 05/02/19 14:05 05/12/19 02:53 Solu-Medrol - IVPUSH 40 mg Q8H-IV ELISSA Administration Metoprolol Tartrate 5 mg 04/30/19 08:57 05/10/19 08:43 Lopressor Injection - IVPUSH 5 mg Q4H PRN Administration TACHYCARDIA Metoprolol Tartrate 10 mg 05/10/19 21:00 05/12/19 02:56 Lopressor Injection - IVPUSH 10 mg Q6H-IV ELISSA Administration Pantoprazole Sodium 40 mg 05/01/19 10:00 05/11/19 09:36 Protonix Iv IVPUSH 40 mg DAILY ELISSA Administration ASSESSMENT/PLAN: 53 yo M PMH DM2, HFpEF (last EF: 45-50%), EMMY (non-adherent to CPAP) and atrial flutter with RVR, presenting w/ acute hypoxic hypercapnic respiratory failure an d ARDS, s/p intubation and extubation. 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 - consult physiatry placed - continue to monitor mental status CV: - hx HFpEF - continue furosemide 40mg IV daily - hx a-flutter - Eliquis 5mg BID changed to Lovenox - off pressor support - persistently tachycardic - on metoprolol TID and PRN, diltiazem drip and PRN, amiodarone drip - given digoxin X3 yesterday, level today appropriate - starting 0.125 of digoxin daily - recheck digoxin levels daily - wean amiodarone - cardiology following, appreciate recs Respiratory: - acute hypoxic and hypercapneic respiratory failure, presenting with ARDS - Remains on high flow NC 60%/60L; PRN BiPAP overnight with goal SaO2 >90% - CXR with persistent R base infiltrate vs atelectasis - continue Solumedrol 40mg q8h IV daily - Atrovent nebs PRN GI: - f/u swallow evaluation: mental status means patient is not a candidate for diet - no NGT considering persistent need for high flow - encourage PO intake - ALT 106/AST 68 yesterday night, likely 05/11 amio - f/u AM CMP Renal: - Cr 1.8 - encourage PO intake - started D5W for persistent hypernatremia 05/11/2019 - AM Na 163 from 152 - D5W to 150 ccs/hr - f/u BMP at 1800 - Nephrology following, appreciate recs - d/c Andrews when appropriate ID: - continue piptazo (started 05/01) - vanc d/c'd - repeat blood cx's neg - ID following Endo: - hx DM - BGMs ACHS - ISS FENLTD: - D5W @100cc/hr on 05/11/2019, can d/c once tolerating PO fluids - trend lytes, replete PRN - NPO - peripheral lines - Andrews in place 04/30 Dispo - continuing ICU level of care Visit type - Emergency Visit Emergency Visit: No - New Patient This patient is new to me today: No - Critical Care Critical Care patient: Yes Total Critical Care Time (in minutes): 45 Critical Care Statement: The care of this patient involved high complexity decision making to prevent further life threatening deterioration of the patient's condition and/or to evaluate & treat vital organ system(s) failure or risk of failure. ATTENDING PHYSICIAN STATEMENT I saw and evaluated the patient. I reviewed the resident's note and discussed the case with the resident. I agree with the resident's findings and plan as documented. SUBJECTIVE: OBJECTIVE: ASSESSMENT AND PLAN:
[2019-05-12] MEDS ORDERED: INSULIN SLIDING SCALE (NOVOLOG) 1 VIAL SQ SCH ×4 (08:28→18:22)
--- NOTE | 2019-05-12 08:44 | PN ---
Physical Exam: SUBJECTIVE: Patient seen and examined. No acute events overnight. Patient more awake than prior, responds to questions by grunting. OBJECTIVE: Vital Signs Period Temp Pulse Resp BP Sys/[place] Pulse Ox Last 24 Hr 97.8 F-98.0 F 108-143 22-42 100-177/71-106 59-97 GENERAL: awake, speech is slow, poor HEAD: Normal with no signs of trauma. EYES: PERRL, EOMI ENT: dry mucous membranes NECK: Trachea midline, supple, left IJ removed LUNGS: diminished breath sounds at bases, no accessory muscle use HEART: tachycardic ABDOMEN: obese, soft, nontender, normoactive bowel sounds EXTREMITIES: 2+ pulses, warm, well-perfused. trace edema of bilateral lower extremities NEUROLOGICAL: slow speech, difficult to understand, able to follow commands, generalized weakness SKIN: Warm, dry, normal turgor Laboratory Results - last 24 hr 05/11/19 05/11/19 05/11/19 05:55 12:04 17:19 WBC RBC Hgb Hct MCV MCH MCHC RDW Plt Count MPV Absolute Neuts (auto) Neutrophils % Lymphocytes % Monocytes % Eosinophils % Basophils % Nucleated RBC % PTT (Actin FS) Sodium 152 H Potassium 4.2 Chloride 113 H Carbon Dioxide 33 H Anion Gap 6 L BUN 66.5 H Creatinine 1.8 H Est GFR (CKD-EPI)AfAm 49.40 Est GFR (CKD-EPI)NonAf 42.63 POC Glucometer 314 400 Random Glucose 259 H Calcium 9.8 Phosphorus 3.7 Magnesium 2.3 Total Bilirubin 0.6 AST 68 H ALT 106 H Alkaline Phosphatase 92 Creatine Kinase 179 Creatine Kinase Index No Result Required. CK-MB (CK-2) < 1.0 Total Protein 6.6 Albumin 2.8 L TSH 1.59 Digoxin 05/12/19 05/12/19 05/12/19 00:27 05:52 05:52 WBC RBC Hgb Hct MCV MCH MCHC RDW Plt Count MPV Absolute Neuts (auto) Neutrophils % Lymphocytes % Monocytes % Eosinophils % Basophils % Nucleated RBC % PTT (Actin FS) 28.6 Sodium Potassium Chloride Carbon Dioxide Anion Gap BUN Creatinine Est GFR (CKD-EPI)AfAm Est GFR (CKD-EPI)NonAf POC Glucometer 367 Random Glucose Calcium Phosphorus Magnesium Total Bilirubin AST ALT Alkaline Phosphatase Creatine Kinase Creatine Kinase Index CK-MB (CK-2) Total Protein Albumin TSH Digoxin 1.27 05/12/19 06:00 WBC 8.9 RBC 5.50 Hgb 13.4 Hct 44.9 MCV 81.6 MCH 24.3 L MCHC 29.8 L RDW 19.8 H Plt Count 293 MPV 9.3 Absolute Neuts (auto) 8.0 Neutrophils % 90.0 H Lymphocytes % 2.1 L D Monocytes % 7.6 Eosinophils % 0.0 Basophils % 0.3 Nucleated RBC % 0 PTT (Actin FS) Sodium Potassium Chloride Carbon Dioxide Anion Gap BUN Creatinine Est GFR (CKD-EPI)AfAm Est GFR (CKD-EPI)NonAf POC Glucometer Random Glucose Calcium Phosphorus Magnesium Total Bilirubin AST ALT Alkaline Phosphatase Creatine Kinase Creatine Kinase Index CK-MB (CK-2) Total Protein Albumin TSH Digoxin Active Medications Generic Name Dose Route Start Last Admin Trade Name Freq PRN Reason Stop Dose Admin Apixaban 5 mg 05/08/19 22:00 05/11/19 21:41 Eliquis - PO 5 mg BID ELISSA Administration Chlorhexidine Gluconate 1 applic 04/30/19 22:00 05/11/19 21:42 Hibiclens For Decolonization - TP 1 applic HS ELISSA Administration Diltiazem HCl 10 mg 05/10/19 05:04 05/10/19 08:30 Cardizem Injection - IVPUSH 10 mg Q4H PRN Administration TACHYCARDIA Ferrous Sulfate 300 mg 05/09/19 10:00 05/11/19 22:18 Feosol NGT 300 mg BID ELISSA Administration Furosemide 40 mg 05/11/19 10:00 05/11/19 10:48 Lasix Injection - IVPUSH Not Given DAILY ELISSA Piperacillin Sod/Tazobactam 50 mls @ 100 mls/hr 05/01/19 18:00 05/12/19 02:53 Sod 3.375 gm/ Dextrose IVPB 100 mls/hr Q8H-IV ELISSA Administration Protocol Amiodarone HCl/Dextrose 360 mg in 200 mls @ 16.667 mls/hr 05/10/19 11:30 05/29 12:11 Nexterone 360 Mg/200 Ml Bag IVPB 16.667 mls/hr ASDIR ELISSA Administration Protocol 0.5 MG/MIN Diltiazem HCl 125 mg/ Dextrose 125 mls @ 5 mls/hr 05/11/19 10:15 05/12/19 01: 23 IVPB 10 mg/hr TITR ELISSA 10 mls/hr Titration Protocol 5 MG/HR Dextrose 1,000 mls @ 100 mls/hr 05/11/19 10:30 D5w - IV .Q10H ELISSA Insulin Aspart 0 vial 05/12/19 08:28 Novolog Vial Sliding Scale - SQ Q6H [facility] Protocol Ipratropium [place] 1 amp 05/10/19 11:29 05/10/19 21:50 Atrovent 0.02% Nebulizer - NEB 05/17/19 11:29 1 amp Q6H PRN Administration DYSPEPSIA Methylprednisolone Sodium Succinate 40 mg 05/02/19 14:05 05/12/19 02:53 Solu-Medrol - IVPUSH 40 mg Q8H-IV ELISSA Administration Metoprolol Tartrate 5 mg 04/30/19 08:57 05/10/19 08:43 Lopressor Injection - IVPUSH 5 mg Q4H PRN Administration TACHYCARDIA Metoprolol Tartrate 10 mg 05/10/19 21:00 05/12/19 02:56 Lopressor Injection - IVPUSH 10 mg Q6H-IV ELISSA Administration Pantoprazole Sodium 40 mg 05/01/19 10:00 05/11/19 09:36 Protonix Iv IVPUSH 40 mg DAILY ELISSA Administration ASSESSMENT/PLAN: 53 y/o/m with PMHx of DM2, HFpEF(last EF: 45-50%), 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 #Acute Hypoxic and Hypercapneic Respiratory Failure/ EMMY - Off sedation, extubated on 05/09 - ABG after extubation: pH 7.35, pCO2 62.9, PO2 69 - Pulm consulted - Hans RQID - Solumedrol 40mg Q8h IV - Follow CXRs - right base infiltrate with atelectatic changes - Continue Zosyn - Azithromycin and Vancomycin discontinued - ID consulted (Dr. Garcia) - Positive blood culture bottle initially but repeat blood cultures s/p abx negative #HFpEF vs. Cardiogenic shock - Lasix 50mg IV daily - Strict Is & Os, daily weights - ECHO - EF of 55-60%, no significant abnormalities noted, no vegetations - Cardiology Consult (Dr. Encinas) - off pressors, BP stable - Cardio recommends cardiac PET or MRI to exclude cardiac involvement in sarcoidosis as outpatient. F/u with Dr. Genaro Davila at [place] #Atrial Flutter - Started on Amiodarone drip, Cardizem drip for rate control but still tachycardic to 110s - Lopressor 10mg IV Q6H ELISSA, Lopressor 5mg IV Q4H PRN - Cardizem 10mg IV Q4H PRN - Digoxin 0.25mg given x1 - Eliquis 5mg BID #RYNE on CKD w/ Hyperkalemia - Monitor BUN/Cr levels, baseline Cr ~1.5 - Nephrology Consulted (Dr. Kelley) - Likely secondary to volume overload. Pt. likely has CKD given risk factors of DM2 (uncontrolled glucose) and Heart Failure - started on D5W fluids due to rising hypernatremia as patient unable to tolerate significant PO intake yet - Hold Lisinopril, restart 10mg QD once improved renal function, BP #DM2 - BGM - ISS - sugars rising again as patient off insulin drip and now on D5W fluids #FEN - D5W @100mls/hr - monitor and replete lytes as needed - NG tube removed, consider reinsertion if patient not able to tolerate PO #Prophylaxis - Eliquis 5mg BID - Protonix #Disposition - Continue ICU monitoring, off pressors, extubated. Still tachycardic despite rate control medications Visit type - Emergency Visit Emergency Visit: Yes ED Registration Date: 04/30/19 Care time: The patient presented to the Emergency Department on the above date and was hospitalized for further evaluation of their emergent condition. - New Patient This patient is new to me today: No - Critical Care Critical Care patient: Yes Total Critical Care Time (in minutes): 36 Critical Care Statement: The care of this patient involved high complexity decision making to prevent further life threatening deterioration of the patient 's condition and/or to evaluate & treat vital organ system(s) failure or risk of failure. ATTENDING PHYSICIAN STATEMENT I saw and evaluated the patient. I reviewed the resident's note and discussed the case with the resident. I agree with the resident's findings and plan as documented. SUBJECTIVE: OBJECTIVE: ASSESSMENT AND PLAN:
[2019-05-12] MEDS: FUROSEMIDE 40 MG/4 ML INJECTABLE VIAL IVPUSH SCH (10:45)
[2019-05-12] MEDS: PANTOPRAZOLE SODIUM 40 MG VIAL IVPUSH SCH (10:45)
--- NOTE | 2019-05-12 10:59 | CONSULT ---
Admitting History and Physical - Primary Care Physician PCP: Armani Saez - Admission History of Present Illness: Pt. is a 53 y.o. M w/ PMHx. of DM2, HFpEF(last EF: 45-50%), EMMY (non-adherent to CPAP) and atrial flutter presents with sudden onset of shortness of breath. Acute Hypoxic and Hypercapneic Respiratory Failure/ EMMY -acute hypoxic and hypercapneic respiratory failure due to ARDS. -PNA, gram positive bacteremia, septic shock. -Pt extubated 05/09. NPO History Source: Medical Record Limitations to Obtaining History: Clinical Condition - Smoking History Smoking history: Former smoker Have you smoked in the past 12 months: No If you are a former smoker, when did you quit?: 25 yrs ago - Alcohol/Substance Use Hx Alcohol Use: No History - Admission Reason For Visit: ACUTE RENAL FAILURE,HYTPERKALEMIA,ACUTE DDECOMPENS - Diagnostics X-ray: Report Reviewed (recent cxr-right infiltrate) - General Mental Status: Awake and Alert, Able to Follow Commands (closes eyes, sticks out tongue weakly, unable to phonate although he attempts) Attention: Distractible, Mild Impairment Ability to Follow Directions: Fair (seems to understand) Head/Neck Control: Needs Assist - Hearing Hearing: Functional Speech Evaluation - Communication Primary Language: ESTONIAN Communication: Yes: Non-Communicable Oral Expression Ability: Yes: Non-Verbal, Non-Vocal - Language/Verbal Expression Functional Communication Status: Yes: Severely Impaired - Swallow Evaluation/Bedside Assessment Current Nutritional Intake: NPO Oral Secretions: Yes: WFL Dentition: Yes: Adequate Facial Symmetry at Rest: Symmetrical Jaw Position: Open at Rest Lingual Movement: Reduced Protrusion Recommendations - Speech Evaluation, Impression/Plan Impression: Pt seen bedside, eyes open, difficulty visually tracking, open mouth posture with increased RR. Seems to understand, closing eyes and protuding tongue upon command but unable to phonate, speak. Locked-in syndrome? UE's very weak-unable to lift, drop easily. PO trials not given due to high aspiration risk. Case reviewed with medical teams. - Dysphagia Impressions/Plan Swallowing Skills: Impaired Dysphagia Impressions: Severe Impairment, Risk of Aspiration, Ongoing Evaluation *Silent aspiration: cannot be R/O at bedside Recommendations: Other (Consider NGT for nutrition, hydration, medication.) - Recommendations Diet Consistency: NPO Liquids: NPO
[2019-05-12 11:19] LABS: ALBUMIN 3.2 g/dl (3.4-5.0); BILIRUBIN,TOTAL 0.6 mg/dL (0.2-1); BLOOD UREA NITROGEN 87.6 mg/dL (7-18); CALCIUM 10.2 mg/dL (8.5-10.1); CREATININE 2.2 mg/dL (0.55-1.3); MAGNESIUM 2.7 mg/dL (1.8-2.4); PHOSPHOROUS 5.4 mg/dL (2.5-4.9); POTASSIUM 5.1 mmol/L (3.5-5.1); TOT PROT 7.3 g/dl (6.4-8.2)
[2019-05-12] MEDS: APIXABAN 5 MG TABLET PO SCH (11:29)
[2019-05-12] MEDS: FERROUS SO4 300 MG/5 ML ORAL SOLN UNIT DOSE CUPS NGT SCH ×2 (11:30→21:26)
[2019-05-12] MEDS ORDERED: DEXTROSE 5%-WATER - 1,000 ML IV SCH ×3 (11:43→22:50)
[2019-05-12 11:52] LABS: ARTERIAL BLD GAS O2 SATURATION 95.8 % (95-98); ARTERIAL BLOOD GAS BASE EXCESS 7.1 meq/l (-2-2); ARTERIAL BLOOD GAS PCO2 61.3 mmHg (35-45); ARTERIAL BLOOD GAS PO2 87.6 mmHg (80-100); ARTERIAL BLOOD GAS pH 7.36 (7.35-7.45)
[2019-05-12 12:00] LABS: ALLENS TEST POSITIVE
[2019-05-12] MEDS: AMIODARONE IN DEXTROSE,ISO-OSM 360 MG/200 ML BAG IVPB SCH (12:00)
--- NOTE | 2019-05-12 12:21 | PN ---
Teaching Attending Note Name of Resident: Tray Cardoza ATTENDING PHYSICIAN STATEMENT I saw and evaluated the patient. I reviewed the resident's note and discussed the case with the resident. I agree with the resident's findings and plan as documented. SUBJECTIVE: Pt seen and examined in the ICU. Remains on HFOT 60% FiO2. More lethargic today. Heart rates improved on amiodarone, cardizem gtts, digoxin load. OBJECTIVE: Vital Signs Period Temp Pulse Resp BP Sys/[place] Pulse Ox Last 24 Hr 97.8 F-98.5 F 107-143 11-85 100-144/65-106 97-98 Intake & Output 05/09/19 05/10/19 05/11/19 05/12/19 23:59 23:59 23:59 23:59 Intake Total 1580 1002 917.4 287 Output Total 2200 4300 2500 600 Balance -620 -3298 -1582.6 -313 Weight 120.157 kg 119.204 kg Gen: lethargic on HFOT Heart: tachycardic, irregular Lung: scattered rhonchi Abd: soft, nontender Ext: + edema CBC, BMP 05/12/19 06:00 05/12/19 08:45 Active Medications Chlorhexidine Gluconate (Hibiclens For Decolonization -) 1 applic TP HS ELISSA Last Admin: 05/11/19 21:42 Dose: 1 applic Digoxin (Lanoxin Injection -) 0.125 mg IVPUSH DAILY ELISSA Diltiazem HCl (Cardizem Injection -) 10 mg IVPUSH Q4H PRN PRN Reason: TACHYCARDIA Last Admin: 05/10/19 08:30 Dose: 10 mg Enoxaparin Sodium (Lovenox -) 60 mg SQ BID ELISSA Ferrous Sulfate (Feosol) 300 mg NGT BID ELISSA Last Admin: 05/12/19 11:30 Dose: Not Given Piperacillin Sod/Tazobactam (Sod 3.375 gm/ Dextrose) 50 mls @ 100 mls/hr IVPB Q8H-IV ELISSA; Protocol Last Admin: 05/12/19 10:45 Dose: 100 mls/hr Amiodarone HCl/Dextrose (Nexterone 360 Mg/200 Ml Bag) 360 mg in 200 mls @ 16.667 mls/hr IVPB ASDIR ELISSA; Protocol Last Admin: 05/11/19 12:11 Dose: 16.667 mls/hr Dextrose (D5w -) 1,000 mls @ 150 mls/hr IV ASDIR ELISSA Diltiazem HCl 125 mg/ Dextrose 125 mls @ 10 mls/hr IVPB TITR ELISSA; Protocol Insulin Aspart (Novolog Vial Sliding Scale -) 1 vial SQ Q6H ELISSA; Protocol Last Admin: 05/12/19 09:05 Dose: 6 units Ipratropium [place] (Atrovent 0.02% Nebulizer -) 1 amp NEB Q6H PRN PRN Reason: DYSPEPSIA Stop: 05/17/19 11:29 Last Admin: 05/10/19 21:50 Dose: 1 amp Methylprednisolone Sodium Succinate (Solu-Medrol -) 40 mg IVPUSH Q8H-IV ELISSA Last Admin: 05/12/19 10:45 Dose: 40 mg Metoprolol Tartrate (Lopressor Injection -) 5 mg IVPUSH Q4H PRN PRN Reason: TACHYCARDIA Last Admin: 05/10/19 08:43 Dose: 5 mg Metoprolol Tartrate (Lopressor Injection -) 10 mg IVPUSH Q6H-IV ELISSA Last Admin: 05/12/19 09:06 Dose: 10 mg ASSESSMENT AND PLAN: Acute Hypoxic and Hypercapneic Respiratory Failure Pneumonia Gram Positive Bacteremia Septic Shock Volume Overload r/o ARDS Lactic Acidosis Hyperkalemia Acute Kidney Injury Atrial Flutter with RVR HTN DM Anemia - continue antibiotics - hold lasix - increase free water replacement - monitor urine output, creatinine - monitor lytes - taper empiric medrol - inhaled bronchodilators - rate control with cardizem, amiodarone, digoxin - continue anticoagulation - taper fiO2 to keep SpO2 >90% - BiPAP as needed to assist in work of breathing - DVT/GI prophylaxis - continue ICU monitoring for tenuous respiratory status critical care time spent in reviewing chart, evaluating patient and formulating plan 35 min
[2019-05-12] MEDS: DIGOXIN 0.5 MG/2 ML AMPUL IVPUSH SCH (12:39)
[2019-05-12] MEDS: ENOXAPARIN NA (PORCINE) 60 MG/0.6 ML DISP.SYRIN SQ SCH ×2 (12:40→21:24)
[2019-05-12] MEDS ORDERED: THIAMINE HCL 200 MG/2 ML VIAL IVPB ONE (12:58)
[2019-05-12] MEDS ORDERED: PT OWN MED DRAWER 7, Y5N ONE ×3 (13:04→18:32)
[2019-05-12] MEDS: DILTIAZEM INJECTION 125 MG in DEXTROSE 5%-WATER - 100 ML IVPB SCH (13:30)
--- NOTE | 2019-05-12 15:28 | PN ---
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, Physician Chief Complaint: Events noted Remains in ICU. Atrial flutter with RVR History of Present Illness: Patient was seen and examined. Chart was reviewed Amiodarone drip and Cardizem drip A flutter - Current Medication List Current Medications: Active Medications Chlorhexidine Gluconate (Hibiclens For Decolonization -) 1 applic TP HS [facility] Last Admin: 05/11/19 21:42 Dose: 1 applic Digoxin (Lanoxin Injection -) 0.125 mg IVPUSH DAILY [facility] Last Admin: 05/12/19 12:39 Dose: 0.125 mg Diltiazem HCl (Cardizem Injection -) 10 mg IVPUSH Q4H PRN PRN Reason: TACHYCARDIA Last Admin: 05/10/19 08:30 Dose: 10 mg Enoxaparin Sodium (Lovenox -) 60 mg SQ BID [facility] Last Admin: 05/12/19 12:40 Dose: 60 mg Ferrous Sulfate (Feosol) 300 mg NGT BID [facility] Last Admin: 05/12/19 11:30 Dose: Not Given Piperacillin Sod/Tazobactam (Sod 3.375 gm/ Dextrose) 50 mls @ 100 mls/hr IVPB Q8H-IV ELISSA; Protocol Last Admin: 05/12/19 10:45 Dose: 100 mls/hr Amiodarone HCl/Dextrose (Nexterone 360 Mg/200 Ml Bag) 360 mg in 200 mls @ 16.667 mls/hr IVPB ASDIR [facility]; Protocol Last Admin: 05/12/19 12:00 Dose: Not Given Dextrose (D5w -) 1,000 mls @ 150 mls/hr IV ASDIR [facility] Last Admin: 05/12/19 12:55 Dose: 150 mls/hr Diltiazem HCl 125 mg/ Dextrose 125 mls @ 10 mls/hr IVPB TITR [facility]; Protocol Last Admin: 05/12/19 13:30 Dose: 10 mg/hr, 10 mls/hr Insulin Aspart (Novolog Vial Sliding Scale -) 1 vial SQ Q6H [facility]; Protocol Last Admin: 05/12/19 14:59 Dose: 8 units Ipratropium [place] (Atrovent 0.02% Nebulizer -) 1 amp NEB Q6H PRN PRN Reason: DYSPEPSIA Stop: 05/17/19 11:29 Last Admin: 05/10/19 21:50 Dose: 1 amp Methylprednisolone Sodium Succinate (Solu-Medrol -) 40 mg IVPUSH BID ELISSA Metoprolol Tartrate (Lopressor Injection -) 5 mg IVPUSH Q4H PRN PRN Reason: TACHYCARDIA Last Admin: 05/10/19 08:43 Dose: 5 mg Metoprolol Tartrate (Lopressor Injection -) 10 mg IVPUSH Q6H-IV ELISSA Last Admin: 05/12/19 15:00 Dose: 10 mg - Objective Vital Signs: Vital Signs Temperature 98.2 F 05/12/19 10:00 Pulse Rate 133 H 05/12/19 15:00 Respiratory Rate 22 H 05/12/19 12:00 Blood Pressure 121/83 05/12/19 15:00 O2 Sat by Pulse Oximetry (%) 98 05/12/19 10:00 Neck: Yes: Supple Cardiovascular: Yes: Tachycardia, Pulse Irregular, S1, S2 Respiratory: Yes: Diminished, On Nasal O2 Gastrointestinal: Yes: Normal Bowel Sounds, Soft. No: Tenderness Edema: No Labs: CBC, BMP 05/12/19 06:00 05/12/19 08:45 Problem List - Problems (1) Acute decompensated heart failure Code(s): I50.9 - HEART FAILURE, UNSPECIFIED (2) Acute hypercapnic respiratory failure due to obstructive sleep apnea Code(s): J96.02 - ACUTE RESPIRATORY FAILURE WITH HYPERCAPNIA; G47.33 - OBSTRUCTIVE SLEEP APNEA (ADULT) (PEDIATRIC) (3) Acute renal failure Code(s): N17.9 - ACUTE KIDNEY FAILURE, UNSPECIFIED Qualifiers: Acute renal failure type: unspecified Qualified Code(s): N17.9 - Acute kidney failure, unspecified (4) Atrial fibrillation and flutter Code(s): I48.91 - UNSPECIFIED ATRIAL FIBRILLATION; I48.92 - UNSPECIFIED ATRIAL FLUTTER (5) Hyperkalemia Code(s): E87.5 - HYPERKALEMIA (6) Pneumonia Code(s): J18.9 - PNEUMONIA, UNSPECIFIED ORGANISM Qualifiers: Pneumonia type: due to unspecified organism (7) Sarcoidosis of other sites Code(s): D86.89 - SARCOIDOSIS OF OTHER SITES (8) Septic shock Code(s): A41.9 - SEPSIS, UNSPECIFIED ORGANISM; R65.21 - SEVERE SEPSIS WITH SEPTIC SHOCK (9) Type 2 diabetes mellitus Code(s): E11.9 - TYPE 2 DIABETES MELLITUS WITHOUT COMPLICATIONS Qualifiers: Diabetes mellitus fdc insulin use: without exterminator termite use Diabetes mellitus complication detail: with chronic kidney disease Chronic kidney disease stage: stage 2 (mild) Assessment/Plan 1. Acute hypoxic and hypercapneic respiratory failure currently on high concentration O2 2. Pneumonia, post septic shock, Gram Positive Bacteremia and ARDS 3. Sarcoidosis confirmed by skin biopsy, r/o cardiac involvement 4. OSAS nonadherent to CPAP 5. Paroxysmal Aflutter/Afib with RVR 6. Acute on chronic diastolic heart failure 7. Acute on CKD with hyperkalemia resolving 8. Type 2 DM 9. Anemia PLAN: 1. Empiric antibiotic, IV steroid taper with GI protection, bronchodilator and enteral feeds 2. Remains off pressor support for MAP>65 mmHg 3. Oxygen high concentration 4. Rate-control with IV Lopressor, Cardizem drip and Amiodarone drip. Also on Digoxin IV. Currently on Lovenox, but would recommend unfractionated Heparin drip before starting oral regiment such as Eliquis 5 mg BID 5. Lasix 40 IV BID with monitor renal function and electrolytes 6. Resume lLsinopril 10 mg QD once renal function and hyperkalemia stabilizes 7. Follow up with Dr. Genaro Davila (cardiology at [place]). Consider cardiac PET or MRI to exclude cardiac involvement in sarcoidosis as outpatient
[2019-05-12 17:01] LABS: BLOOD UREA NITROGEN 92.7 mg/dL (7-18); CALCIUM 9.8 mg/dL (8.5-10.1); CREATININE 2.3 mg/dL (0.55-1.3)
[2019-05-12] MEDS ORDERED: AMINO ACIDS 4.25%/D5W 1,000 ML IV SCH (17:45)
--- NOTE | 2019-05-12 17:50 | PN ---
Teaching Attending Note Name of Resident: Giuseppe Rm ATTENDING PHYSICIAN STATEMENT I saw and evaluated the patient. I reviewed the resident's note and discussed the case with the resident. I agree with the resident's findings and plan as documented. SUBJECTIVE: Successfully extubated 05/09/19 to HFOT. More drowsy today, not following commands. Still requiring HFOT with tachypnea and tachycardia. Was verbalizing some but speech appeared slowed and tedious -now less verbal. Speech therapist unable to perform swallow eval due to lethargy. OBJECTIVE: Afebrile. RVR. Tachypneic. HFOT via NC. More drowsy today, not following commands. Responses slowed. Generalized decrease in power UEs and LEs. Last Vital Signs Temp Pulse Resp BP Pulse Ox 98.2 F 133 H 22 H 121/83 98 05/12/19 10:00 05/12/19 15:00 05/12/19 12:00 05/12/19 15:05/12/19 10:00 Heart - S1, S2, RVR Lungs - good air entry bilaterally. ON HFOT via NC. 50% Abdomen - High BMI, soft, non-tender. Bowel Sounds normal. Extremities - Mild edema, no calf tenderness. Neuro - Obtunded, lethargic, rousable to painful stimuli, no longer following commands. Generalized weakness all limbs. JACKIE. Laboratory Results - last 24 hr 05/11/19 05/12/19 05/12/19 05:55 00:27 05:52 WBC RBC Hgb Hct MCV MCH MCHC RDW Plt Count MPV Absolute Neuts (auto) Neutrophils % Lymphocytes % Monocytes % Eosinophils % Basophils % Nucleated RBC % PTT (Actin FS) Anticoagulation Therapy Puncture Site ABG pH ABG pCO2 at Pt Temp ABG pO2 at Pt Temp ABG HCO3 ABG O2 Sat (Measured) ABG O2 Content ABG Base Excess Adrian Test O2 Delivery Device Oxygen Flow Rate Vent Mode Vent Rate Mechanical Rate Pressure Support Vent Sodium 152 H Potassium 4.2 Chloride 113 H Carbon Dioxide 33 H Anion Gap 6 L BUN 66.5 H Creatinine 1.8 H Est GFR (CKD-EPI)AfAm 49.40 Est GFR (CKD-EPI)NonAf 42.63 POC Glucometer 367 Random Glucose 259 H Calcium 9.8 Phosphorus 3.7 Magnesium 2.3 Total Bilirubin 0.6 AST 68 H ALT 106 H Alkaline Phosphatase 92 Creatine Kinase 179 Creatine Kinase Index No Result Required. CK-MB (CK-2) < 1.0 Total Protein 6.6 Albumin 2.8 L TSH 1.59 Digoxin 1.27 05/12/19 05/12/19 05/12/19 05:52 06:00 08:45 WBC 8.9 RBC 5.50 Hgb 13.4 Hct 44.9 MCV 81.6 MCH 24.3 L MCHC 29.8 L RDW 19.8 H Plt Count 293 MPV 9.3 Absolute Neuts (auto) 8.0 Neutrophils % 90.0 H Lymphocytes % 2.1 L D Monocytes % 7.6 Eosinophils % 0.0 Basophils % 0.3 Nucleated RBC % 0 PTT (Actin FS) 28.6 Anticoagulation Therapy Puncture Site ABG pH ABG pCO2 at Pt Temp ABG pO2 at Pt Temp ABG HCO3 ABG O2 Sat (Measured) ABG O2 Content ABG Base Excess Adrian Test O2 Delivery Device Oxygen Flow Rate Vent Mode Vent Rate Mechanical Rate Pressure Support Vent Sodium 163 H* Potassium 5.1 Chloride 124 H Carbon Dioxide 30 Anion Gap 9 BUN 87.6 H Creatinine 2.2 H Est GFR (CKD-EPI)AfAm 38.76 Est GFR (CKD-EPI)NonAf 33.44 POC Glucometer Random Glucose 313 H Calcium 10.2 H Phosphorus 5.4 H Magnesium 2.7 H Total Bilirubin 0.6 AST 73 H ALT 179 H Alkaline Phosphatase 102 Creatine Kinase Creatine Kinase Index CK-MB (CK-2) Total Protein 7.3 Albumin 3.2 L TSH Digoxin 05/12/19 05/12/19 05/12/19 08:53 11:30 14:43 WBC RBC Hgb Hct MCV MCH MCHC RDW Plt Count MPV Absolute Neuts (auto) Neutrophils % Lymphocytes % Monocytes % Eosinophils % Basophils % Nucleated RBC % PTT (Actin FS) Anticoagulation Therapy No Result Required. Puncture Site Right radial ABG pH 7.36 ABG pCO2 at Pt Temp 61.3 H ABG pO2 at Pt Temp 87.6 ABG HCO3 34.1 H ABG O2 Sat (Measured) 95.8 ABG O2 Content 17.9 ABG Base Excess 7.1 H Adrian Test Positive O2 Delivery Device No Result Required. Oxygen Flow Rate Yes Vent Mode No Result Required. Vent Rate No Result Required. Mechanical Rate No Result Required. Pressure Support Vent No Result Required. Sodium Potassium Chloride Carbon Dioxide Anion Gap BUN Creatinine Est GFR (CKD-EPI)AfAm Est GFR (CKD-EPI)NonAf POC Glucometer 277 336 Random Glucose Calcium Phosphorus Magnesium Total Bilirubin AST ALT Alkaline Phosphatase Creatine Kinase Creatine Kinase Index CK-MB (CK-2) Total Protein Albumin TSH Digoxin 05/12/19 05/12/19 16:00 16:58 WBC RBC Hgb Hct MCV MCH MCHC RDW Plt Count MPV Absolute Neuts (auto) Neutrophils % Lymphocytes % Monocytes % Eosinophils % Basophils % Nucleated RBC % PTT (Actin FS) Anticoagulation Therapy Puncture Site ABG pH ABG pCO2 at Pt Temp ABG pO2 at Pt Temp ABG HCO3 ABG O2 Sat (Measured) ABG O2 Content ABG Base Excess Adrian Test O2 Delivery Device Oxygen Flow Rate Vent Mode Vent Rate Mechanical Rate Pressure Support Vent Sodium 155 H Potassium 5.0 Chloride 117 H Carbon Dioxide 32 Anion Gap 6 L BUN 92.7 H Creatinine 2.3 H Est GFR (CKD-EPI)AfAm 36.73 Est GFR (CKD-EPI)NonAf 31.69 POC Glucometer 357 Random Glucose 435 H* Calcium 9.8 Phosphorus Magnesium Total Bilirubin AST ALT Alkaline Phosphatase Creatine Kinase Creatine Kinase Index CK-MB (CK-2) Total Protein Albumin TSH Digoxin Current Medications Generic Name Dose Route Start Last Admin Trade Name Freq PRN Reason Stop Dose Admin Chlorhexidine Gluconate 1 applic 04/30/19 22:00 05/11/19 21:42 Hibiclens For Decolonization - TP 1 applic HS ELISSA Administration Digoxin 0.125 mg 05/12/19 11:45 05/12/19 12:39 Lanoxin Injection - IVPUSH 0.125 mg DAILY ELISSA Administration Diltiazem HCl 10 mg 05/10/19 05:04 05/10/19 08:30 Cardizem Injection - IVPUSH 10 mg Q4H PRN Administration TACHYCARDIA Enoxaparin Sodium 60 mg 05/12/19 11:45 05/12/19 12:40 Lovenox - SQ 60 mg BID ELISSA Administration Ferrous Sulfate 300 mg 05/09/19 10:00 05/12/19 11:30 Feosol NGT Not Given BID ELISSA Piperacillin Sod/Tazobactam 50 mls @ 100 mls/hr 05/01/19 18:00 05/12/19 17:02 Sod 3.375 gm/ Dextrose IVPB 100 mls/hr Q8H-IV ELISSA Administration Protocol Amiodarone HCl/Dextrose 360 mg in 200 mls @ 16.667 mls/hr 05/10/19 11:30 06/26 12:00 Nexterone 360 Mg/200 Ml Bag IVPB Not Given ASDIR ELISSA Protocol 0.5 MG/MIN Dextrose 1,000 mls @ 150 mls/hr 05/12/19 11:43 05/12/19 12:55 D5w - IV 150 mls/hr ASDIR ELISSA Administration Diltiazem HCl 125 mg/ Dextrose 125 mls @ 10 mls/hr 05/12/19 11:46 05/12/19 13 :30 IVPB 10 mg/hr TITR ELISSA 10 mls/hr Administration Protocol 10 MG/HR Amino Acids 1,000 mls @ 42 mls/hr 05/12/19 17:45 Clinimix - IV Q24H ELISSA Insulin Aspart 1 vial 05/12/19 16:30 05/12/19 17:02 Novolog Vial Sliding Scale - SQ 10 units ACHS ELISSA Administration Protocol Ipratropium [place] 1 amp 05/10/19 11:29 05/10/19 21:50 Atrovent 0.02% Nebulizer - NEB 05/17/19 11:29 1 amp Q6H PRN Administration DYSPEPSIA Methylprednisolone Sodium Succinate 40 mg 05/12/19 22:00 Solu-Medrol - IVPUSH BID ELISSA Metoprolol Tartrate 5 mg 04/30/19 08:57 05/10/19 08:43 Lopressor Injection - IVPUSH 5 mg Q4H PRN Administration TACHYCARDIA Metoprolol Tartrate 10 mg 05/10/19 21:00 05/12/19 15:00 Lopressor Injection - IVPUSH 10 mg Q6H-IV ELISSA Administration Home Medications Medication Instructions Recorded Amiodarone HCl 200 mg PO DAILY 04/30/19 Apixaban [Eliquis] 5 mg PO BID 04/30/19 Diltiazem Cd [Cardizem Cd -] 300 mg PO DAILY 04/30/19 Furosemide 40 mg PO BID 04/30/19 Glipizide 10 mg PO DAILY 04/30/19 Lisinopril 10 mg PO DAILY 04/30/19 Metformin HCl [Glucophage] 1,000 mg PO BID 04/30/19 Sitagliptin Phosphate [Januvia] 100 mg PO DAILY 04/30/19 ASSESSMENT AND PLAN: 53 year old male with Obesity, DM 2, Sarcoidosis, Hx systolic CHF (EF 45-50%, now EF normal), EMMY (non-adherent with CPAP), and Atrial Flutter presented with sudden onset of shortness of breath, requiring intubation and mechanical ventilation. 1. Acute Hypoxic and Hypercapneic Respiratory Failure secondary to Acute Diastolic CHF +/- PNA Extubated 05/09/19 received adequate IV BID Lasix diuresis - now held due to dehydration/ hypernatremia/worsening RYNE Continue Zosyn, discontinued Vanco as per ID. CXR - atelectasis at bases. Still Tachypneic with CO2 retention ?role of BiPAP vs re-intubation if remains tachypneic and obtunded. Continue Bronchodilator Nebs, Steroids. Rest as per [employer] 2. Cardiogenic Shock sec to Acute Diastolic CHF vs Septic Shock, etiology unclear - resolved, off pressors. Weaned off Levophed and Vasopressin Blood Cx - Staph epi, likely contaminant. Echo - no vegetations. Repeat Blood Cx neg x 2. Continue Zosyn as per ID. Vanco discontinued. BP rebounded well - holding up on Metoprolol IVP, Diltiazem drip. Lisinopril held. Cardiology following - for out-patient Cardiac MRI to asses degree of sarcoid involvement. 3. Atrial flutter with RVR - poorly controlled on Lopressor IVP q6h, Amiodarone drip, Diltiazem drip, Digoxin. Heparin drip transitioned to oral Eliquis for AC - now held due to inability to swallow. Further recommendations as per Cardiology. 4. RYNE with Hyperkalemia - likely secondary to Cardiorenal phenomenon, Creat initially improved with Lasix diuresis but now climbing again likely sec to pre- renal causes/overdiuresis. Lasix held. IV fluids started. Nephrology following. 5. Hypernateremia sec to dehydration/overdiuresis. On IV D5W. Consider NG tube with free water pushes and for nutrition. 6. DM 2 - Insulin drip transitioned to Novolog as per sliding scale. Normally on Glipizide, Metformin and Januvia at home. Sugars very elevated due to IV D5W. May need to resume Insulin drip and consider stopping D5W in favor of free water pushes via NG tube. 7. Generalized weakness s/p Intubation/Extubation ?deconditioning. CT Head once hemodynamically stable. PT eval. TSH, CPK levels normal. ?GBS ?Critical Care Myopathy. Consultation for EMG. 8. Iron Deficiency Anemia - FeSO4 supplementation. No evidence of active blood loss. For out-patient Ix. DVT Px - Eliquis GI Px - PPI
--- NOTE | 2019-05-12 18:18 | PN ---
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, Physician History of Present Illness: Pt seen and examined at bedside. He remains in the ICU. He remains extubated. He is not very interactive. - Current Medication List Current Medications: Active Medications Chlorhexidine Gluconate (Hibiclens For Decolonization -) 1 applic TP HS [facility] Last Admin: 05/11/19 21:42 Dose: 1 applic Digoxin (Lanoxin Injection -) 0.125 mg IVPUSH DAILY [facility] Last Admin: 05/12/19 12:39 Dose: 0.125 mg Diltiazem HCl (Cardizem Injection -) 10 mg IVPUSH Q4H PRN PRN Reason: TACHYCARDIA Last Admin: 05/10/19 08:30 Dose: 10 mg Enoxaparin Sodium (Lovenox -) 60 mg SQ BID [facility] Last Admin: 05/12/19 12:40 Dose: 60 mg Ferrous Sulfate (Feosol) 300 mg NGT BID [facility] Last Admin: 05/12/19 11:30 Dose: Not Given Piperacillin Sod/Tazobactam (Sod 3.375 gm/ Dextrose) 50 mls @ 100 mls/hr IVPB Q8H-IV ELISSA; Protocol Last Admin: 05/12/19 17:02 Dose: 100 mls/hr Amiodarone HCl/Dextrose (Nexterone 360 Mg/200 Ml Bag) 360 mg in 200 mls @ 16.667 mls/hr IVPB ASDIR [facility]; Protocol Last Admin: 05/12/19 12:00 Dose: Not Given Dextrose (D5w -) 1,000 mls @ 150 mls/hr IV ASDIR [facility] Last Admin: 05/12/19 12:55 Dose: 150 mls/hr Diltiazem HCl 125 mg/ Dextrose 125 mls @ 10 mls/hr IVPB TITR [facility]; Protocol Last Admin: 05/12/19 13:30 Dose: 10 mg/hr, 10 mls/hr Amino Acids (Clinimix -) 1,000 mls @ 42 mls/hr IV Q24H ELISSA Insulin Aspart (Novolog Vial Sliding Scale -) 1 vial SQ ACHS [facility]; Protocol Last Admin: 05/12/19 17:02 Dose: 10 units Ipratropium [place] (Atrovent 0.02% Nebulizer -) 1 amp NEB Q6H PRN PRN Reason: DYSPEPSIA Stop: 05/17/19 11:29 Last Admin: 05/10/19 21:50 Dose: 1 amp Methylprednisolone Sodium Succinate (Solu-Medrol -) 40 mg IVPUSH BID ELISSA Metoprolol Tartrate (Lopressor Injection -) 5 mg IVPUSH Q4H PRN PRN Reason: TACHYCARDIA Last Admin: 05/10/19 08:43 Dose: 5 mg Metoprolol Tartrate (Lopressor Injection -) 10 mg IVPUSH Q6H-IV ELISSA Last Admin: 05/12/19 15:00 Dose: 10 mg - Objective Vital Signs: Vital Signs Temperature 100.0 F H 05/12/19 16:00 Pulse Rate 114 H 05/12/19 18:00 Respiratory Rate 38 H 05/12/19 18:00 Blood Pressure 104/67 05/12/19 18:00 O2 Sat by Pulse Oximetry (%) 98 05/12/19 10:00 Constitutional: Yes: Calm Eyes: Yes: Conjunctiva Clear HENT: Yes: Atraumatic Cardiovascular: Yes: S1, S2 Respiratory: Yes: On Nasal O2 Gastrointestinal: Yes: Soft, Abdomen, Obese Genitourinary: Yes: Andrews Present Musculoskeletal: Yes: Muscle Weakness Edema: LLE: Trace, RLE: Trace Neurological: Yes: Confusion Labs: CBC, BMP 05/12/19 06:00 05/12/19 16:00 INR, PTT INR 1.09 (0.83-1.09) 05/05/19 05:30 - ....Imaging Chest X-ray: Report Reviewed Problem List - Problems (1) Acute decompensated heart failure Code(s): I50.9 - HEART FAILURE, UNSPECIFIED (2) Atrial fibrillation and flutter Code(s): I48.91 - UNSPECIFIED ATRIAL FIBRILLATION; I48.92 - UNSPECIFIED ATRIAL FLUTTER (3) Hyperkalemia Code(s): E87.5 - HYPERKALEMIA (4) Pneumonia Code(s): J18.9 - PNEUMONIA, UNSPECIFIED ORGANISM Qualifiers: Pneumonia type: due to unspecified organism (5) Sarcoidosis of other sites Code(s): D86.89 - SARCOIDOSIS OF OTHER SITES Assessment/Plan Current Medications Generic Name Dose Route Start Last Admin Trade Name Freq PRN Reason Stop Dose Admin Chlorhexidine Gluconate 1 applic 04/30/19 22:00 05/11/19 21:42 Hibiclens For Decolonization - TP 1 applic HS ELISSA Administration Digoxin 0.125 mg 05/12/19 11:45 05/12/19 12:39 Lanoxin Injection - IVPUSH 0.125 mg DAILY ELISSA Administration Diltiazem HCl 10 mg 05/10/19 05:04 05/10/19 08:30 Cardizem Injection - IVPUSH 10 mg Q4H PRN Administration TACHYCARDIA Enoxaparin Sodium 60 mg 05/12/19 11:45 05/12/19 12:40 Lovenox - SQ 60 mg BID ELISSA Administration Ferrous Sulfate 300 mg 05/09/19 10:00 05/12/19 11:30 Feosol NGT Not Given BID ELISSA Piperacillin Sod/Tazobactam 50 mls @ 100 mls/hr 05/01/19 18:00 05/12/19 17:02 Sod 3.375 gm/ Dextrose IVPB 100 mls/hr Q8H-IV ELISSA Administration Protocol Amiodarone HCl/Dextrose 360 mg in 200 mls @ 16.667 mls/hr 05/10/19 11:30 06/26 12:00 Nexterone 360 Mg/200 Ml Bag IVPB Not Given ASDIR ELISSA Protocol 0.5 MG/MIN Dextrose 1,000 mls @ 150 mls/hr 05/12/19 11:43 05/12/19 12:55 D5w - IV 150 mls/hr ASDIR ELISSA Administration Diltiazem HCl 125 mg/ Dextrose 125 mls @ 10 mls/hr 05/12/19 11:46 05/12/19 13 :30 IVPB 10 mg/hr TITR ELISSA 10 mls/hr Administration Protocol 10 MG/HR Amino Acids 1,000 mls @ 42 mls/hr 05/12/19 17:45 Clinimix - IV Q24H ELISSA Insulin Aspart 1 vial 05/12/19 16:30 05/12/19 17:02 Novolog Vial Sliding Scale - SQ 10 units ACHS ELISSA Administration Protocol Ipratropium [place] 1 amp 05/10/19 11:29 05/10/19 21:50 Atrovent 0.02% Nebulizer - NEB 05/17/19 11:29 1 amp Q6H PRN Administration DYSPEPSIA Methylprednisolone Sodium Succinate 40 mg 05/12/19 22:00 Solu-Medrol - IVPUSH BID ELISSA Metoprolol Tartrate 5 mg 04/30/19 08:57 05/10/19 08:43 Lopressor Injection - IVPUSH 5 mg Q4H PRN Administration TACHYCARDIA Metoprolol Tartrate 10 mg 05/10/19 21:00 05/12/19 15:00 Lopressor Injection - IVPUSH 10 mg Q6H-IV ELISSA Administration Impression 1. RYNE 2. hyperkalemia 3. resp failure requiring intubation 4. resp acidosis 5. dm 6. hx htn 7. sleep apnea 8. obesity 9. hx non compliance 10. chf 11. sarcoid 12. volume overload 13. hypernatremia Plan - repeat sodium is improved, last lab likely error - agree with clinimix - monitor lytes - cont hypotonic fluid - monitor pulse ox - daily cxr - monitor renal function
[2019-05-12] MEDS ORDERED: INSULIN (LEVEMIR) 100 UNITS/ML UNITS SQ ONE (18:26)
[2019-05-12] MEDS: AMINO ACIDS 4.25%/D5W 1,000 ML IV SCH (19:41)
[2019-05-12] MEDS: CHLORHEXIDINE GLUCONATE 4% CLEANSER FOR DECOLONIZATION TP SCH (21:25)
[2019-05-12] MEDS: IPRATROPIUM BR 0.02% 0.5 MG/2.5 ML VIAL.NEB. NEB PRN (22:00)
[2019-05-12 22:05] LABS: BLOOD UREA NITROGEN 94.8 mg/dL (7-18); CALCIUM 9.6 mg/dL (8.5-10.1); CREATININE 2.4 mg/dL (0.55-1.3); POTASSIUM 4.4 mmol/L (3.5-5.1)
[2019-05-13] MEDS: INSULIN SLIDING SCALE (NOVOLOG) 1 VIAL SQ SCH ×6 (00:25→20:46)
[2019-05-13] MEDS ORDERED: DEXTROSE 5%-WATER - 50 ML IVPB ONE ×2 (00:54→11:04)
[2019-05-13] MEDS ORDERED: PIPERACILLIN/TAZOBACTAM 3.375 GM VIAL IVPB ONE ×2 (00:54→11:04)
[2019-05-13] MEDS: PIPERACILLIN/TAZOB 3.375 GM 3.375 GM in DEXTROSE 5%-WATER - 50 ML IVPB SCH ×2 (01:41→11:19)
[2019-05-13] MEDS: METOPROLOL TARTRATE 5 MG/5 ML VIAL IVPUSH SCH ×4 (02:59→20:52)
[2019-05-13 04:13] LABS: ARTERIAL BLD GAS O2 SATURATION 93.5 % (95-98); ARTERIAL BLOOD GAS BASE EXCESS 6.9 meq/l (-2-2); ARTERIAL BLOOD GAS PCO2 64.7 mmHg (35-45); ARTERIAL BLOOD GAS PO2 77.1 mmHg (80-100); ARTERIAL BLOOD GAS pH 7.35 (7.35-7.45)
[2019-05-13 04:19] LABS: ALLENS TEST POSITIVE
[2019-05-13] MEDS: DEXTROSE 5%-WATER - 1,000 ML IV SCH ×3 (04:26→13:52)
[2019-05-13] MEDS ORDERED: INSULIN (LEVEMIR) 100 UNITS/ML UNITS SQ ONE (06:00)
--- NOTE | 2019-05-13 07:52 | PN ---
Teaching Attending Note Name of Resident: Giuseppe Rm ATTENDING PHYSICIAN STATEMENT I saw and evaluated the patient. I reviewed the resident's note and discussed the case with the resident. I agree with the resident's findings and plan as documented. This AM examined with resident team; at aprox. 740 noted blown pupil. Discussed with resident. The patient had been extubated but was continually altered with noted L-sided weakness in his upper extremity since yesterday and he became more altered overnight. There is no documented exam overnight, etc. He was placed on CPAP as the resident felt hypercapnia caused this. Unclear if was discussed with attending MD. He is on full dose lovenox. Due to focal neurological disturbance with inability to protect airway and severe concerning neurological changes on exam with pupilary findings he wllhave STAT CT and was reintubated. Update: no IC bleed; evaluating potential multifocal etiology.; Checkign MRI. Still discussing possibility of transfer which has been limited subject to bed availability, etc. 10 sys ROS impossible due to intubated and sedated. OBJECTIVE: VS, labs, imaging reviewed Intubated and sedated on ventillator resting in bed, vent settings per flowsheet ET Tube in place; IV access noted with no apparent surrounding cellulitis RRR s1/2 no mgr Normal muscle tone, moves all 5 extremities with normal apparent strength Neck is supple, trachea midline, no fernanda LN Lungs CTAB with sym expansion NT ND +BS no fernanda organomegaly CN2-12 wnl; no FND but limited given clinical circumstances. NC AT EOMI PERRLA Not agitated, cannot complete full psych assessment No skin breakdown or rashes noted Microbiology 05/04/19 17:00 Sputum - Endotrachea Suction/Ventilator Gram Stain - Final 05/04/19 17:00 Sputum - Endotrachea Suction/Ventilator Sputum Culture - Final NORMAL RESPIRATORY ROSEMARY 05/01/19 11:09 Blood - Peripheral Venous Blood Culture - Final NO GROWTH AFTER 5 DAYS INCUBATION 05/01/19 09:00 Blood - Peripheral Venous Blood Culture - Final NO GROWTH AFTER 5 DAYS INCUBATION 04/30/19 05:05 Blood - Peripheral Venous Blood Culture - Final Staphylococcus Epidermidis Cdc Group G 04/30/19 05:05 Blood - Peripheral Venous Blood Culture - Final Staphylococcus Coagulase Neg 04/30/19 19:45 Urine For Antigen Detection Legionella Antigen - Final 04/30/19 19:45 Urine For Antigen Detection Streptococcus pneumoniae Antigen (M - Final 04/30/19 05:25 Urine - Urine - Catheterized Urine Culture - Final NO GROWTH OBTAINED Laboratory Results - last 24 hr 05/13/19 05/13/19 05/13/19 10:35 10:35 10:35 WBC 11.8 H RBC 5.02 Hgb 12.1 Hct 40.8 MCV 81.3 MCH 24.1 L MCHC 29.6 L RDW 19.2 H Plt Count 226 D MPV 9.8 Absolute Neuts (auto) 10.9 H Neutrophils % 92.4 H Neutrophils % (Manual) 88.9 H Band Neutrophils % 8.1 Lymphocytes % 1.5 L D Lymphocytes % (Manual) 2.0 L D Monocytes % 6.0 Monocytes % (Manual) 0 L D Eosinophils % 0.0 Eosinophils % (Manual) 0.0 Basophils % 0.1 Basophils % (Manual) 0.0 Myelocytes % (Man) 0 Promyelocytes % (Man) 0 Blast Cells % (Manual) 0 Nucleated RBC % 0 Metamyelocytes 0 Hypochromia 0 Platelet Estimate Normal Platelet Comment Present Polychromasia 0 Poikilocytosis 1+ Anisocytosis 2+ Microcytosis 2+ Macrocytosis 0 Spherocytes 1+ Target Cells 1+ Tear Drop Cells 1+ Fragmented RBCs 1+ PTT (Actin FS) Anticoagulation Therapy Puncture Site ABG pH ABG pCO2 at Pt Temp ABG pO2 at Pt Temp ABG HCO3 ABG O2 Sat (Measured) ABG O2 Content ABG Base Excess Adrian Test O2 Delivery Device Oxygen Flow Rate Vent Mode Vent Rate Mechanical Rate PEEP Pressure Support Vent Sodium 153 H Potassium 4.4 Chloride 115 H Carbon Dioxide 33 H Anion Gap 5 L BUN 93.2 H Creatinine 2.4 H Est GFR (CKD-EPI)AfAm 34.89 Est GFR (CKD-EPI)NonAf 30.10 POC Glucometer Random Glucose 354 H Calcium 9.8 Phosphorus 4.0 Magnesium 2.4 Total Bilirubin 1.1 H AST 158 H ALT 256 H Alkaline Phosphatase 85 Total Protein 6.1 L Albumin 2.5 L Digoxin 0.85 05/13/19 05/13/19 05/13/19 11:00 14:51 17:25 WBC RBC Hgb Hct MCV MCH MCHC RDW Plt Count MPV Absolute Neuts (auto) Neutrophils % Neutrophils % (Manual) Band Neutrophils % Lymphocytes % Lymphocytes % (Manual) Monocytes % Monocytes % (Manual) Eosinophils % Eosinophils % (Manual) Basophils % Basophils % (Manual) Myelocytes % (Man) Promyelocytes % (Man) Blast Cells % (Manual) Nucleated RBC % Metamyelocytes Hypochromia Platelet Estimate Platelet Comment Polychromasia Poikilocytosis Anisocytosis Microcytosis Macrocytosis Spherocytes Target Cells Tear Drop Cells Fragmented RBCs PTT (Actin FS) Anticoagulation Therapy No Result Required. Puncture Site Right radial ABG pH 7.44 ABG pCO2 at Pt Temp 47.2 H ABG pO2 at Pt Temp 89.5 ABG HCO3 31.6 H ABG O2 Sat (Measured) 96.3 ABG O2 Content 17.2 ABG Base Excess 6.8 H Adrian Test Positive O2 Delivery Device No Result Required. Oxygen Flow Rate 80% Vent Mode No Result Required. Vent Rate 35 Mechanical Rate Vent PEEP 5.0 Pressure Support Vent 350 Sodium Potassium Chloride Carbon Dioxide Anion Gap BUN Creatinine Est GFR (CKD-EPI)AfAm Est GFR (CKD-EPI)NonAf POC Glucometer 332 319 Random Glucose Calcium Phosphorus Magnesium Total Bilirubin AST ALT Alkaline Phosphatase Total Protein Albumin Digoxin 05/13/19 05/13/19 05/13/19 20:33 21:58 22:15 WBC RBC Hgb Hct MCV MCH MCHC RDW Plt Count MPV Absolute Neuts (auto) Neutrophils % Neutrophils % (Manual) Band Neutrophils % Lymphocytes % Lymphocytes % (Manual) Monocytes % Monocytes % (Manual) Eosinophils % Eosinophils % (Manual) Basophils % Basophils % (Manual) Myelocytes % (Man) Promyelocytes % (Man) Blast Cells % (Manual) Nucleated RBC % Metamyelocytes Hypochromia Platelet Estimate Platelet Comment Polychromasia Poikilocytosis Anisocytosis Microcytosis Macrocytosis Spherocytes Target Cells Tear Drop Cells Fragmented RBCs PTT (Actin FS) 33.2 Anticoagulation Therapy Puncture Site ABG pH ABG pCO2 at Pt Temp ABG pO2 at Pt Temp ABG HCO3 ABG O2 Sat (Measured) ABG O2 Content ABG Base Excess Adrian Test O2 Delivery Device Oxygen Flow Rate Vent Mode Vent Rate Mechanical Rate PEEP Pressure Support Vent Sodium Potassium Chloride Carbon Dioxide Anion Gap BUN Creatinine Est GFR (CKD-EPI)AfAm Est GFR (CKD-EPI)NonAf POC Glucometer 407 405 Random Glucose Calcium Phosphorus Magnesium Total Bilirubin AST ALT Alkaline Phosphatase Total Protein Albumin Digoxin 0205/14/19 05/14/19 22:15 00:13 04:05 WBC RBC Hgb Hct MCV MCH MCHC RDW Plt Count MPV Absolute Neuts (auto) Neutrophils % Neutrophils % (Manual) Band Neutrophils % Lymphocytes % Lymphocytes % (Manual) Monocytes % Monocytes % (Manual) Eosinophils % Eosinophils % (Manual) Basophils % Basophils % (Manual) Myelocytes % (Man) Promyelocytes % (Man) Blast Cells % (Manual) Nucleated RBC % Metamyelocytes Hypochromia Platelet Estimate Platelet Comment Polychromasia Poikilocytosis Anisocytosis Microcytosis Macrocytosis Spherocytes Target Cells Tear Drop Cells Fragmented RBCs PTT (Actin FS) Anticoagulation Therapy Puncture Site ABG pH ABG pCO2 at Pt Temp ABG pO2 at Pt Temp ABG HCO3 ABG O2 Sat (Measured) ABG O2 Content ABG Base Excess Adrian Test O2 Delivery Device Oxygen Flow Rate Vent Mode Vent Rate Mechanical Rate PEEP Pressure Support Vent Sodium 150 H Potassium 4.3 Chloride 112 H Carbon Dioxide 31 Anion Gap 6 L BUN 101.5 H Creatinine 2.5 H Est GFR (CKD-EPI)AfAm 33.21 Est GFR (CKD-EPI)NonAf 28.65 POC Glucometer 375 309 Random Glucose 448 H* Calcium 9.2 Phosphorus Magnesium Total Bilirubin AST ALT Alkaline Phosphatase Total Protein Albumin Digoxin 05/14/19 05/14/19 05/14/19 06:05 06:05 06:05 WBC 10.7 H RBC 4.86 Hgb 11.9 Hct 39.2 MCV 80.7 MCH 24.5 L MCHC 30.4 L RDW 19.2 H Plt Count 239 MPV 10.4 Absolute Neuts (auto) 10.0 H Neutrophils % 93.6 H Neutrophils % (Manual) Band Neutrophils % Lymphocytes % 2.0 L D Lymphocytes % (Manual) Monocytes % 3.9 Monocytes % (Manual) Eosinophils % 0.0 Eosinophils % (Manual) Basophils % 0.5 D Basophils % (Manual) Myelocytes % (Man) Promyelocytes % (Man) Blast Cells % (Manual) Nucleated RBC % 0 Metamyelocytes Hypochromia Platelet Estimate Platelet Comment Polychromasia Poikilocytosis Anisocytosis Microcytosis Macrocytosis Spherocytes Target Cells Tear Drop Cells Fragmented RBCs PTT (Actin FS) 64.8 H Anticoagulation Therapy Puncture Site ABG pH ABG pCO2 at Pt Temp ABG pO2 at Pt Temp ABG HCO3 ABG O2 Sat (Measured) ABG O2 Content ABG Base Excess Adrian Test O2 Delivery Device Oxygen Flow Rate Vent Mode Vent Rate Mechanical Rate PEEP Pressure Support Vent Sodium 150 H Potassium 3.9 Chloride 113 H Carbon Dioxide 30 Anion Gap 7 L BUN 100.8 H Creatinine 2.2 H Est GFR (CKD-EPI)AfAm 38.76 Est GFR (CKD-EPI)NonAf 33.44 POC Glucometer Random Glucose 329 H Calcium 9.3 Phosphorus 2.5 Magnesium 2.3 Total Bilirubin 0.8 AST 88 H ALT 225 H Alkaline Phosphatase 84 Total Protein 6.0 L Albumin 2.6 L Digoxin ASSESSMENT AND PLAN: Patient is a 53-year-old male with a PMH significant for heart failure with preserved ejection fraction, obstructive sleep apnea, morbid obesity, noncompliance with CPAP or medical therapy, atrial flutter. He presented with ARDS. He had a blown pupil this AM which was not related to brain bleed; evaluating causation. Febrile so blood cultures were reordered due to the temperature elevation. Persistent azotemia noted to 153. Patient has been reintubated and will continue on hemodynamic and ventilatory support in the intensive care unit under the ICU guidance. Role of hospital medicine is limited in the overall treatment. Antibiotic coverage has been broadened by infectious disease to meropenem alongside a stat dose of vancomycin. Problems include: ARDS; vent management per pulmonary services. On steroids and bronchodilators as per the recommendations. RYNE on CKD Lactic acidosis resolved Gram-positive bacteremia Hyperkalemia, improved Hypernatremia, on half-normal saline History of diabetes mellitus, keep glucose less than 180 in the ICU Septic shock, off pressors Anemia, continue to trend. Transfusion parameters per guidelines. Pneumonia versus pneumonitis is a component of inciting the ARDS, less likely cardiogenic shock. Atrial flutter, on heparin drip, was on home Agnes, on digoxin and Lopressor. Has been requiring Cardizem for rate control. Was briefly on amiodarone. History of hypertension History of hyperlipidemia Morbid obesity, BMI greater than 40 Full Code
[2019-05-13] MEDS ORDERED: SUCCINYLCHOLINE CHLORIDE 200 MG/10 ML SYRINGE ONE (08:06)
--- NOTE | 2019-05-13 08:52 | PN ---
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 (short form) - Note 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: Responded to anesthesia stat call in ICU. ICU team at bedside, stating that pt has new fixed and dilated left pupil in setting of anticoagulation for AF with rapid RVR. Pt morbidly obese also with diagnoses of Sepsis, severe EMMY, ANABEL, severe CHF and ARDS on this admission. Pt currently in AF with ventricular rate in the 120s on a cardizem drip. BP stable 115/72. FIO2 increased to 100 percent on BIPAP. Pt unresponsive. Despite risk of further increasing ICP, decision made to use succinylcholine 120mg to facilitate a difficult intubation in a critically ill patient. Initial look with MAC 4 blade grade 4 view. Second look with glidescope successful under direct visualization, ETT 7.5 secured 22 at lips. Pt hemodynamically unchanged throughout. Sustained ETCO2 and equal bilateral chest movement and breath sounds noted. CXR done for confirmation. Pt to be transported to radiology for CT head.
--- NOTE | 2019-05-13 10:15 | CON.NEURO ---
Consult Consult Specialty:: Maik Referred by:: ER - History of Present Illness History of Present Illness: 53-year-old right-handed man with multiple medical problem including diabetes mellitus coronary artery disease osteoarthritis chronic low back pain history of diastolic CHF who presented roughly about 2 weeks ago to [facility] to the emergency room with the chief complaint of shortness of breath. Hospital course was complicated by respiratory distress that required intubation patient was intubated and admitted to the medical ICU for a while patient was under the care of multiple specialists including drier take off tender and critical care. No report of any recent travel. Today patient was noted actually yesterday that he was getting shortness of breath with respiratory acidosis on ABG not feeling himself. Patient required intubation again chest x-ray was done. This morning while the medical team in the medical ICU was rounding the patient was noted with left dilated pupil. Neurology was called immediately CAT scan of the head was done to rule out intracerebral hemorrhage. I looked at the CAT scan right away which did not show intracranial bleed. CAT scan with abnormal variant of cavernous sinus asymmetry. I spoke to the resident I came right away to see the patient patient was seen in the medical ICU bed 7 no family at the bedside daughter was in the waiting room. Spoke to the registered nurse at length. - History Source History Provided By: Medical Record Limitations to Obtaining History: Clinical Condition - Alcohol/Substance Use Hx Alcohol Use: No - Smoking History Smoking history: Former smoker Have you smoked in the past 12 months: No If you are a former smoker, when did you quit?: 25 yrs ago Home Medications - Allergies Allergies/Adverse Reactions: Allergies Allergy/AdvReac Type Severity Reaction Status Date / Time No Known Allergies Allergy Verified 04/30/19 05:32 - Home Medications Home Medications: Ambulatory Orders Amiodarone HCl 200 mg PO DAILY 04/30/19 Apixaban [Eliquis] 5 mg PO BID 04/30/19 Diltiazem Cd [Cardizem Cd -] 300 mg PO DAILY 04/30/19 Furosemide 40 mg PO BID 04/30/19 Glipizide 10 mg PO DAILY 04/30/19 Lisinopril 10 mg PO DAILY 04/30/19 Metformin HCl [Glucophage] 1,000 mg PO BID 04/30/19 Sitagliptin Phosphate [Januvia] 100 mg PO DAILY 01/22/20 Family Medical History Family History: Unable to Obtain Review of Systems Unable to obtain ROS, reason: unable to obtain Physical Exam-Neuro Vital Signs: Vital Signs Temperature 100.1 F H 05/13/19 06:00 Pulse Rate 126 H 05/13/19 06:00 Respiratory Rate 37 H 05/13/19 06:00 Blood Pressure 131/65 05/13/19 06:00 O2 Sat by Pulse Oximetry (%) 96 05/13/19 04:00 Labs: CBC, BMP 05/12/19 06:00 05/13/19 02:10 INR, PTT INR 1.09 (0.83-1.09) 05/05/19 05:30 - Neuro Exam Level Of Consciousness: Yes: Comatose, Obtunded Eyes: Yes: Other (the pupils are asymmetrical left side is 3 mm reactive right side is 2 mm reactive positive doll's eyes positive cornealsno response to verbal stimulation. No spontaneous movement.) DTR's: 0 Left Bicep, 0 Right Bicep, 0 Left Tricep, 0 Right Tricep, 0 Left Brachioradialis, 0 Left Achilles Imaging - Results Cat Scan: Image Reviewed Problem List - Problems (1) Altered sensorium Code(s): R40.4 - TRANSIENT ALTERATION OF AWARENESS Assessment/Plan no evidence of intracerebral hemorrhage on the exam that leading to herniation Patient is not brain Toxic encephalopathy associated with the respiratory failure 1. Neuro checks every1 hour. 2. Seizure precautions. 3. I really cannot explain the transient fixed dilated pupil on one side given the exam and the normal CAT scan. 4. Portable EEG. 5. Follow-up with the critical care team. I spoke to the daughter for 20 minutes regarding the results of the CAT scan and the clinical exam and a prognosis. I spent 55 minutes reviewing the chart and dictating the notes. Thank you very much for allowing me to be part of this patient neurological care Irene Pleitez M.D.
[2019-05-13] MEDS ORDERED: INSULIN (NOVOLOG) ASPART 100 UNITS/ML 10ML VIAL ONE (11:03)
[2019-05-13] MEDS: PROPOFOL 1,000,000 MCG/100 ML VIAL IVPB SCH ×2 (11:11→13:53)
[2019-05-13 11:12] LABS: BASO % 0.1 % (0-2.0); HEMATOCRIT 40.8 % (35.4-49); HEMOGLOBIN 12.1 GM/dL (11.7-16.9); LYMPH % 1.5 % (8-40); MCH 24.1 pg (25.7-33.7); MCHC 29.6 g/dl (32.0-35.9); MEAN CELL VOLUME 81.3 fl (80-96); MEAN PLT VOLUME 9.8 fl (7.5-11.1); NEUT % 92.4 % (42.8-82.8); PLATELET COUNT 226 K/MM3 (134-434); RBC 5.02 M/mm3 (4.00-5.60); RDW 19.2 % (11.9-15.9); WHITE BLOOD COUNT 11.8 K/mm3 (4.0-10.0)
[2019-05-13] MEDS: DIGOXIN 0.5 MG/2 ML AMPUL IVPUSH SCH (11:15)
[2019-05-13] MEDS: methylPREDNISolone NA SUCC 40 MG/1 ML VIAL IVPUSH SCH ×2 (11:17→21:39)
[2019-05-13] MEDS: FERROUS SO4 300 MG/5 ML ORAL SOLN UNIT DOSE CUPS NGT SCH ×2 (11:18→21:39)
[2019-05-13] MEDS: THIAMINE HCL 200 MG/2 ML VIAL IVPB SCH (11:31)
[2019-05-13 11:51] LABS: ALBUMIN 2.5 g/dl (3.4-5.0); BILIRUBIN,TOTAL 1.1 mg/dL (0.2-1); BLOOD UREA NITROGEN 93.2 mg/dL (7-18); CALCIUM 9.8 mg/dL (8.5-10.1); CREATININE 2.4 mg/dL (0.55-1.3); MAGNESIUM 2.4 mg/dL (1.8-2.4); POTASSIUM 4.4 mmol/L (3.5-5.1); TOT PROT 6.1 g/dl (6.4-8.2)
[2019-05-13 11:59] LABS: ANISOCYTOSIS 2+; MACROCYTOSIS 0; PLATELET ESTIMATE NORMAL; TARGET CELLS 1+; TEAR DROP CELLS 1+
--- NOTE | 2019-05-13 12:33 | PN ---
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, Physician Chief Complaint: Events noted Remains in ICU now intubated on mechanical ventilator. Neuro input noted due to evaluation for dilated pupil Atrial flutter with RVR History of Present Illness: Patient was seen and examined. Chart was reviewed Amiodarone drip and Cardizem drip Remains in atrial flutter with periods of RVR and hypotension - Current Medication List Current Medications: Active Medications Chlorhexidine Gluconate (Hibiclens For Decolonization -) 1 applic TP HS ELISSA Last Admin: 05/12/19 21:25 Dose: 1 applic Digoxin (Lanoxin Injection -) 0.125 mg IVPUSH DAILY ELISSA Last Admin: 05/13/19 11:15 Dose: 0.125 mg Diltiazem HCl (Cardizem Injection -) 10 mg IVPUSH Q4H PRN PRN Reason: TACHYCARDIA Last Admin: 05/10/19 08:30 Dose: 10 mg Ferrous Sulfate (Feosol) 300 mg NGT BID ELISSA Last Admin: 05/13/19 11:18 Dose: Not Given Piperacillin Sod/Tazobactam (Sod 3.375 gm/ Dextrose) 50 mls @ 100 mls/hr IVPB Q8H-IV ELISSA; Protocol Last Admin: 05/13/19 11:19 Dose: 100 mls/hr Diltiazem HCl 125 mg/ Dextrose 125 mls @ 10 mls/hr IVPB TITR ELISSA; Protocol Last Titration: 05/13/19 08:33 Dose: 0 mg/hr, 0 mls/hr Amino Acids (Clinimix -) 1,000 mls @ 50 mls/hr IV Q24H ELISSA Last Admin: 05/12/19 19:41 Dose: 50 mls/hr Dextrose (D5w -) 1,000 mls @ 100 mls/hr IV ASDIR ELISSA Last Admin: 05/13/19 10:55 Dose: 100 mls/hr Propofol (Diprivan -) 1,000,000 mcg in 100 mls @ 3.463 mls/hr IVPB TITR [facility]; Protocol Last Admin: 05/13/19 11:11 Dose: 15 mcg/kg/min, 10.39 mls/hr Insulin Aspart (Novolog Vial Sliding Scale -) 1 vial SQ Q4H [facility]; Protocol Last Admin: 05/13/19 11:18 Dose: 8 units Ipratropium [place] (Atrovent 0.02% Nebulizer -) 1 amp NEB Q6H PRN PRN Reason: DYSPEPSIA Stop: 05/17/19 11:29 Last Admin: 05/12/19 22:00 Dose: 1 amp Methylprednisolone Sodium Succinate (Solu-Medrol -) 40 mg IVPUSH BID [facility] Last Admin: 05/13/19 11:17 Dose: 40 mg Metoprolol Tartrate (Lopressor Injection -) 5 mg IVPUSH Q4H PRN PRN Reason: TACHYCARDIA Last Admin: 05/10/19 08:43 Dose: 5 mg Metoprolol Tartrate (Lopressor Injection -) 10 mg IVPUSH Q6H-IV [facility] Last Admin: 05/13/19 11:16 Dose: Not Given Thiamine HCl (Vitamin B1 Injection -) 200 mg IVPB DAILY [facility] Last Admin: 05/13/19 11:31 Dose: 200 mg - Objective Vital Signs: Vital Signs Temperature 100.1 F H 05/13/19 06:00 Pulse Rate 112 H 05/13/19 11:16 Respiratory Rate 35 H 05/13/19 12:08 Blood Pressure 81/65 L 05/13/19 11:16 O2 Sat by Pulse Oximetry (%) 100 05/13/19 08:00 Cardiovascular: Yes: Tachycardia, Pulse Irregular, S1, S2 Respiratory: Yes: Diminished, Mechanically Ventilated Gastrointestinal: Yes: Normal Bowel Sounds, Soft. No: Tenderness Edema: No Labs: CBC, BMP 05/13/19 10:35 05/13/19 10:35 Problem List - Problems (1) Acute decompensated heart failure Code(s): I50.9 - HEART FAILURE, UNSPECIFIED (2) Acute hypercapnic respiratory failure due to obstructive sleep apnea Code(s): J96.02 - ACUTE RESPIRATORY FAILURE WITH HYPERCAPNIA; G47.33 - OBSTRUCTIVE SLEEP APNEA (ADULT) (PEDIATRIC) (3) Acute renal failure Code(s): N17.9 - ACUTE KIDNEY FAILURE, UNSPECIFIED Qualifiers: Acute renal failure type: unspecified Qualified Code(s): N17.9 - Acute kidney failure, unspecified (4) Atrial fibrillation and flutter Code(s): I48.91 - UNSPECIFIED ATRIAL FIBRILLATION; I48.92 - UNSPECIFIED ATRIAL FLUTTER (5) Hyperkalemia Code(s): E87.5 - HYPERKALEMIA (6) Pneumonia Code(s): J18.9 - PNEUMONIA, UNSPECIFIED ORGANISM Qualifiers: Pneumonia type: due to unspecified organism (7) Sarcoidosis of other sites Code(s): D86.89 - SARCOIDOSIS OF OTHER SITES (8) Septic shock Code(s): A41.9 - SEPSIS, UNSPECIFIED ORGANISM; R65.21 - SEVERE SEPSIS WITH SEPTIC SHOCK (9) Type 2 diabetes mellitus Code(s): E11.9 - TYPE 2 DIABETES MELLITUS WITHOUT COMPLICATIONS Qualifiers: Diabetes mellitus snf insulin use: without moth exterminator use Diabetes mellitus complication detail: with chronic kidney disease Chronic kidney disease stage: stage 2 (mild) Assessment/Plan 1. Acute hypoxic and hypercapneic respiratory failure currently re-intubated on mechanical ventilator 2. Pneumonia, post septic shock, Gram Positive Bacteremia and ARDS 3. Sarcoidosis confirmed by skin biopsy, r/o cardiac involvement 4. OSAS nonadherent to CPAP 5. Paroxysmal Aflutter/Afib with RVR 6. Acute on chronic diastolic heart failure 7. Acute on CKD with hyperkalemia resolving 8. Type 2 DM 9. Anemia PLAN: 1. Empiric antibiotic, IV steroid taper with GI protection, bronchodilator and enteral feeds. Vent support as per ICU team 2. Remains off pressor support for MAP>65 mmHg 3. Neuro input noted 4. Rate-control with IV Lopressor, Cardizem drip and Digoxin IV. Anticoagulation cardiac standpoint in view of AF if clinically feasible. Currently not on anticoagulation in view of clinical status 5. Lasix 40 IV BID with monitor renal function and electrolytes 6. Resume Lisinopril 10 mg QD once renal function and hyperkalemia stabilizes 7. Follow up with Dr. Genaro Davila (cardiology at [facility]). Consider cardiac PET or MRI to exclude cardiac involvement in sarcoidosis as outpatient Guarded Shin Cutler MD
--- NOTE | 2019-05-13 12:49 | CONSULT ---
Consult Consult Specialty:: PM&R Dr Gay for Dr Jacobo Reason for Consultation:: electrodiagnostics - History of Present Illness History of Present Illness: This is a 53 year old man with a medical history of CAD, HFrEF (EF 45-50%), A flutter, EMMY, chronic LBP, OA, DMT2, who presented to the ED 04/30/2019 with sudden- onset SOB. He was initially placed on CPAP, but was soon intubated for acute hypoxic/ hypercapneic respiratory failure. Renal was consulted for RYNE; Lasix was given initially for CHF vs cardiogenic shock; pressors were given as well. Blood cx 04/30/2019 grew staph for which Zosyn was given; repeat were negative and results were attributed to possible contamination. He was treated for possible PNA as well. His hospital course was complicated and attempts to transfer to [facility] were made. EMG was requested as pt was difficult to wean from vent, to evaluate for myopathy vs neuropathy (GBS). - Alcohol/Substance Use Hx Alcohol Use: No - Smoking History Smoking history: Former smoker Have you smoked in the past 12 months: No If you are a former smoker, when did you quit?: 25 yrs ago Home Medications - Allergies Allergies/Adverse Reactions: Allergies Allergy/AdvReac Type Severity Reaction Status Date / Time No Known Allergies Allergy Verified 04/30/19 05:32 - Home Medications Home Medications: Ambulatory Orders Amiodarone HCl 200 mg PO DAILY 04/30/19 Apixaban [Eliquis] 5 mg PO BID 04/30/19 Diltiazem Cd [Cardizem Cd -] 300 mg PO DAILY 04/30/19 Furosemide 40 mg PO BID 04/30/19 Glipizide 10 mg PO DAILY 04/30/19 Lisinopril 10 mg PO DAILY 04/30/19 Metformin HCl [Glucophage] 1,000 mg PO BID 04/30/19 Sitagliptin Phosphate [Januvia] 100 mg PO DAILY 04/30/19 Review of Systems Unable to obtain ROS, reason: intubated, sedation Physical Exam Vital Signs: Vital Signs Temperature 100.1 F H 05/13/19 06:00 Pulse Rate 112 H 05/13/19 11:16 Respiratory Rate 35 H 05/13/19 12:08 Blood Pressure 81/65 L 05/13/19 11:16 O2 Sat by Pulse Oximetry (%) 100 05/13/19 08:00 Musculoskeletal: Yes: Other (General: calm obese HM lying in bed intubated/ sedated, not following directions N/M: unable to assess MMT 2/2 mental status although moves RLE with gravity spontaneously, ROM not performed 2/2 multiple lines/ restraints, B plantars equiovocal Extremities: no BLE pitting edema) Labs: CBC, BMP 05/13/19 10:35 05/13/19 10:35 Assessment/Plan Electrodiagnostics were performed, please see scanned images for further details. There is electrophysiological evidence of an axonal more than demyelinating sensorimotor peripheral neuropathy. There is no evidence of myopathy, although given that patient was unable to participate, cannot rule out myopathic process. 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 5) Respiratory failure now intubated 6) HFrEF/ CHF exacerbation 7) Possible PNA 8) Cardiogenic shock vs septic shock 9) A flutter with hx CAD, HFrEF (EF 45-50%) 10) EMMY 11) Chronic LBP, OA 12) DMT2 13) RYNE with hyperkalemia 14) Hypernatremia 15) Up to date pneumovax, no documented flu shot 16) Obesity Recommendations: 1) Axonal and demyelinating sensorimotor neuropathy ddx: DM and uremic neuropathy 2) Axonal sensorimotor peripheral neuropathy: ddx includes but is not limited to : critical illness neuropathy, hypothyroidism, gout, sarcoid, connective tissue disease (SLE, RA), vitamin deficiency (B12, folate, thiamine), liver disease 3) Continue plan per primary team 4) Continue Neuro work-up 5) Falls, safety precautions 6) Cardiopulmonary precautions 7) Diabetic precautions 8) Skin protection: q2 hour turning, float heels 9) PT once medically stable to ROM/ endurance/ reconditioning 10) Discharge planning: to be determined once medically stable Thank you for this referral.
[2019-05-13] MEDS ORDERED: PT OWN MED DRAWER 7, Y5N ONE (13:02)
--- NOTE | 2019-05-13 13:15 | PN ---
Teaching Attending Note Name of Resident: Sravanthi Foreman ATTENDING PHYSICIAN STATEMENT I saw and evaluated the patient. I reviewed the resident's note and discussed the case with the resident. I agree with the resident's findings and plan as documented. SUBJECTIVE: Pt seen and examined in the ICU. Noted to have asymmetrical pupils this AM. No acute CVA or bleed on CT head. Intubated for mental status. OBJECTIVE: Vital Signs Period Temp Pulse Resp BP Sys/[place] Pulse Ox Last 24 Hr 100.0 F-100.1 F 93-133 35-97 69-133/54-83 96-100 Intake & Output 05/10/19 05/11/19 05/12/19 05/13/19 23:59 23:59 23:59 23:59 Intake Total 1002 917.4 1071 1120 Output Total 4300 2500 1500 850 Balance -3298 -1582.6 -429 270 Weight 120.157 kg 119.204 kg 115.439 kg Gen: intubated, sedated Heart: tachycardic Lung: scattered rhonchi Abd: soft, nontender Ext: + edema CBC, BMP 05/13/19 10:35 05/13/19 10:35 Active Medications Chlorhexidine Gluconate (Hibiclens For Decolonization -) 1 applic TP HS [facility] Last Admin: 05/12/19 21:25 Dose: 1 applic Digoxin (Lanoxin Injection -) 0.125 mg IVPUSH DAILY [facility] Last Admin: 05/13/19 11:15 Dose: 0.125 mg Diltiazem HCl (Cardizem Injection -) 10 mg IVPUSH Q4H PRN PRN Reason: TACHYCARDIA Last Admin: 05/10/19 08:30 Dose: 10 mg Ferrous Sulfate (Feosol) 300 mg NGT BID [facility] Last Admin: 05/13/19 11:18 Dose: Not Given Piperacillin Sod/Tazobactam (Sod 3.375 gm/ Dextrose) 50 mls @ 100 mls/hr IVPB Q8H-IV [facility]; Protocol Last Admin: 05/13/19 11:19 Dose: 100 mls/hr Diltiazem HCl 125 mg/ Dextrose 125 mls @ 10 mls/hr IVPB TITR [facility]; Protocol Last Titration: 05/13/19 13:08 Dose: 10 mg/hr, 10 mls/hr Amino Acids (Clinimix -) 1,000 mls @ 50 mls/hr IV Q24H [facility] Last Admin: 05/12/19 19:41 Dose: 50 mls/hr Dextrose (D5w -) 1,000 mls @ 100 mls/hr IV ASDIR [facility] Last Admin: 05/13/19 10:55 Dose: 100 mls/hr Propofol (Diprivan -) 1,000,000 mcg in 100 mls @ 3.463 mls/hr IVPB TITR [facility]; Protocol Last Admin: 05/13/19 11:11 Dose: 15 mcg/kg/min, 10.39 mls/hr Insulin Aspart (Novolog Vial Sliding Scale -) 1 vial SQ Q4H [facility]; Protocol Last Admin: 05/13/19 11:18 Dose: 8 units Ipratropium [place] (Atrovent 0.02% Nebulizer -) 1 amp NEB Q6H PRN PRN Reason: DYSPEPSIA Stop: 05/17/19 11:29 Last Admin: 05/12/19 22:00 Dose: 1 amp Methylprednisolone Sodium Succinate (Solu-Medrol -) 40 mg IVPUSH BID [facility] Last Admin: 05/13/19 11:17 Dose: 40 mg Metoprolol Tartrate (Lopressor Injection -) 5 mg IVPUSH Q4H PRN PRN Reason: TACHYCARDIA Last Admin: 05/10/19 08:43 Dose: 5 mg Metoprolol Tartrate (Lopressor Injection -) 10 mg IVPUSH Q6H-IV [facility] Last Admin: 05/13/19 11:16 Dose: Not Given Thiamine HCl (Vitamin B1 Injection -) 200 mg IVPB DAILY [facility] Last Admin: 05/13/19 11:31 Dose: 200 mg ASSESSMENT AND PLAN: Acute Hypoxic and Hypercapneic Respiratory Failure Pneumonia Gram Positive Bacteremia Septic Shock Volume Overload r/o ARDS Lactic Acidosis Hyperkalemia Acute Kidney Injury Atrial Flutter with RVR HTN DM Anemia - continue antibiotics - hold lasix - increase free water replacement - monitor urine output, creatinine - monitor lytes - taper empiric medrol - inhaled bronchodilators - rate control - continue anticoagulation - taper fiO2 to keep SpO2 >90% - DVT/GI prophylaxis - continue ICU monitoring critical care time spent in reviewing chart, evaluating patient and formulating plan 35 min
[2019-05-13] MEDS ORDERED: HEPARIN NA (PORCINE) 5,000 UNITS/ML 1ML VIAL IVPUSH PRN ×2 (13:43)
[2019-05-13] MEDS: AMINO ACIDS 4.25%/D5W 1,000 ML IV SCH ×2 (13:51→19:05)
[2019-05-13] MEDS: dilTIAZem HCL 50 MG/10 ML - 10 ML VIAL IVPUSH PRN (13:54)
[2019-05-13] MEDS ORDERED: HEPARIN - 25,000 UNIT in SODIUM CHLORIDE 495 ML IV SCH (14:00)
[2019-05-13] MEDS: DILTIAZEM INJECTION 125 MG in DEXTROSE 5%-WATER - 100 ML IVPB SCH (14:00)
--- NOTE | 2019-05-13 14:04 | PROC ---
Central Line Insertion Indication: Vasopressor Risks and Benefits Explained: Yes Consent on Chart: Yes Central Line: Triple Lumen Catheter Anesthesia: 1% Lidocaine Sterile Technique: Yes Ultrasound Guided Assistance: Yes Position: Right Internal Jugular Post Insertion: Yes: Bilateral Breath Sounds, Bilateral Chest Expansion, Chest X-Ray Ordered Sterile Dressing Applied: Yes
--- NOTE | 2019-05-13 14:39 | PN ---
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, Physician History of Present Illness: Pt seen and examined at bedside. He is now intubated. He remains in the ICU. He is making urine. - Current Medication List Current Medications: Active Medications Chlorhexidine Gluconate (Hibiclens For Decolonization -) 1 applic TP HS [facility] Last Admin: 05/12/19 21:25 Dose: 1 applic Digoxin (Lanoxin Injection -) 0.125 mg IVPUSH DAILY [facility] Last Admin: 05/13/19 11:15 Dose: 0.125 mg Diltiazem HCl (Cardizem Injection -) 10 mg IVPUSH Q4H PRN PRN Reason: TACHYCARDIA Last Admin: 05/13/19 13:54 Dose: 10 mg Ferrous Sulfate (Feosol) 300 mg NGT BID [facility] Last Admin: 05/13/19 11:18 Dose: Not Given Heparin Sodium (Porcine) (Heparin -) 1,000 unit IVPUSH PRN PRN PRN Reason: Heparin Heparin Sodium (Porcine) (Heparin -) 5,000 unit IVPUSH PRN PRN PRN Reason: Heparin Piperacillin Sod/Tazobactam (Sod 3.375 gm/ Dextrose) 50 mls @ 100 mls/hr IVPB Q8H-IV [facility]; Protocol Last Admin: 05/13/19 11:19 Dose: 100 mls/hr Diltiazem HCl 125 mg/ Dextrose 125 mls @ 10 mls/hr IVPB TITR [facility]; Protocol Last Titration: 05/13/19 13:08 Dose: 10 mg/hr, 10 mls/hr Amino Acids (Clinimix -) 1,000 mls @ 50 mls/hr IV Q24H [facility] Last Admin: 05/13/19 13:51 Dose: 50 mls/hr Propofol (Diprivan -) 1,000,000 mcg in 100 mls @ 3.463 mls/hr IVPB TITR [facility]; Protocol Last Admin: 05/13/19 13:53 Dose: 15 mcg/kg/min, 10.39 mls/hr Heparin Sodium (Porcine) 25, (000 unit/ Sodium Chloride) 500 mls @ 20 mls/hr IV TITR [facility]; Protocol Sodium Chloride (1/2 Normal Saline) 1,000 mls @ 75 mls/hr IV ASDIR [facility] Insulin Aspart (Novolog Vial Sliding Scale -) 1 vial SQ Q4H [facility]; Protocol Last Admin: 05/13/19 11:18 Dose: 8 units Ipratropium [place] (Atrovent 0.02% Nebulizer -) 1 amp NEB Q6H PRN PRN Reason: DYSPEPSIA Stop: 05/17/19 11:29 Last Admin: 05/12/19 22:00 Dose: 1 amp Methylprednisolone Sodium Succinate (Solu-Medrol -) 40 mg IVPUSH BID [facility] Last Admin: 05/13/19 11:17 Dose: 40 mg Metoprolol Tartrate (Lopressor Injection -) 5 mg IVPUSH Q4H PRN PRN Reason: TACHYCARDIA Last Admin: 05/10/19 08:43 Dose: 5 mg Metoprolol Tartrate (Lopressor Injection -) 10 mg IVPUSH Q6H-IV [facility] Last Admin: 05/13/19 11:16 Dose: Not Given Thiamine HCl (Vitamin B1 Injection -) 200 mg IVPB DAILY [facility] Last Admin: 05/13/19 11:31 Dose: 200 mg - Objective Vital Signs: Vital Signs Temperature 98.5 F 05/13/19 14:00 Pulse Rate 115 H 05/13/19 14:00 Respiratory Rate 35 H 05/13/19 14:00 Blood Pressure 106/67 05/13/19 14:00 O2 Sat by Pulse Oximetry (%) 100 05/13/19 08:00 Constitutional: Yes: Calm Cardiovascular: Yes: S1, S2 Respiratory: Yes: Mechanically Ventilated Gastrointestinal: Yes: Soft, Abdomen, Obese Genitourinary: Yes: [place] Present Musculoskeletal: Yes: Muscle Weakness Edema: Yes Edema: LUE: Trace, RUE: Trace, LLE: Trace, RLE: Trace Neurological: Yes: Lethargy Labs: CBC, BMP 05/13/19 10:35 05/13/19 10:35 INR, PTT INR 1.09 (0.83-1.09) 05/05/19 05:30 - ....Imaging Chest X-ray: Report Reviewed Problem List - Problems (1) Acute decompensated heart failure Code(s): I50.9 - HEART FAILURE, UNSPECIFIED (2) Atrial fibrillation and flutter Code(s): I48.91 - UNSPECIFIED ATRIAL FIBRILLATION; I48.92 - UNSPECIFIED ATRIAL FLUTTER (3) Hyperkalemia Code(s): E87.5 - HYPERKALEMIA (4) Pneumonia Code(s): J18.9 - PNEUMONIA, UNSPECIFIED ORGANISM Qualifiers: Pneumonia type: due to unspecified organism (5) Sarcoidosis of other sites Code(s): D86.89 - SARCOIDOSIS OF OTHER SITES Assessment/Plan Current Medications Generic Name Dose Route Start Last Admin Trade Name Freq PRN Reason Stop Dose Admin Chlorhexidine Gluconate 1 applic 04/30/19 22:00 05/12/19 21:25 Hibiclens For Decolonization - TP 1 applic HS [facility] Administration Digoxin 0.125 mg 05/12/19 11:45 05/13/19 11:15 Lanoxin Injection - IVPUSH 0.125 mg DAILY [facility] Administration Diltiazem HCl 10 mg 05/10/19 05:04 05/13/19 13:54 Cardizem Injection - IVPUSH 10 mg Q4H PRN Administration TACHYCARDIA Ferrous Sulfate 300 mg 05/09/19 10:00 05/13/19 11:18 Feosol NGT Not Given BID [facility] Heparin Sodium (Porcine) 1,000 unit 05/13/19 13:43 Heparin - IVPUSH PRN PRN Heparin Heparin Sodium (Porcine) 5,000 unit 05/13/19 13:43 Heparin - IVPUSH PRN PRN Heparin Piperacillin Sod/Tazobactam 50 mls @ 100 mls/hr 05/01/19 18:00 05/13/19 11:19 Sod 3.375 gm/ Dextrose IVPB 100 mls/hr Q8H-IV [facility] Administration Protocol Diltiazem HCl 125 mg/ Dextrose 125 mls @ 10 mls/hr 05/12/19 11:46 05/13/19 13 :08 IVPB 10 mg/hr TITR [facility] 10 mls/hr Titration Protocol 10 MG/HR Amino Acids 1,000 mls @ 50 mls/hr 05/12/19 18:19 05/13/19 13:51 Clinimix - IV 50 mls/hr Q24H [facility] Administration Propofol 1,000,000 mcg in 100 mls @ 3.463 mls/hr 05/13/19 08:30 05/13/19 13: 53 Diprivan - IVPB 15 mcg/kg/min TITR [facility] 10.39 mls/hr Administration Protocol 5 MCG/KG/MIN Heparin Sodium (Porcine) 25, 500 mls @ 20 mls/hr 05/13/19 14:00 000 unit/ Sodium Chloride IV TITR [facility] Protocol 1,000 UNIT/HR Sodium Chloride 1,000 mls @ 75 mls/hr 05/13/19 14:15 1/2 Normal Saline IV ASDIR [facility] Insulin Aspart 1 vial 05/13/19 00:00 05/13/19 11:18 Novolog Vial Sliding Scale - SQ 8 units Q4H [facility] Administration Protocol Ipratropium [place] 1 amp 05/10/19 11:29 05/12/19 22:00 Atrovent 0.02% Nebulizer - NEB 05/17/19 11:29 1 amp Q6H PRN Administration DYSPEPSIA Methylprednisolone Sodium Succinate 40 mg 05/12/19 22:00 05/13/19 11:17 Solu-Medrol - IVPUSH 40 mg BID [facility] Administration Metoprolol Tartrate 5 mg 04/30/19 08:57 05/10/19 08:43 Lopressor Injection - IVPUSH 5 mg Q4H PRN Administration TACHYCARDIA Metoprolol Tartrate 10 mg 05/10/19 21:00 05/13/19 11:16 Lopressor Injection - IVPUSH Not Given Q6H-IV [facility] Thiamine HCl 200 mg 05/13/19 10:00 05/13/19 11:31 Vitamin B1 Injection - IVPB 200 mg DAILY [facility] Administration Impression 1. RYNE 2. hyperkalemia 3. resp failure requiring intubation 4. resp acidosis 5. dm 6. hx htn 7. sleep apnea 8. obesity 9. hx non compliance 10. chf 11. sarcoid 12. volume overload 13. hypernatremia Plan - renal function is worsening - consider starting tube feeds and giving free water to correct hypernatremia - monitor urine output - vent support - neuro input appreciated - hypotonic fluid for now - daily cxr - monitor renal function
[2019-05-13] MEDS: SODIUM CHLORIDE 0.45% 1,000 ML IV SCH (14:54)
--- NOTE | 2019-05-13 15:18 | PN ---
Physical Exam: SUBJECTIVE: Patient seen and examined. Patient noted to have a fixed and dilated left pupil this morning and worsening mental status compared to yesterday. Patient intubated and taken for stat CT scan. No acute findings on CT , Neuro consulted. NIHSS 32 OBJECTIVE: Vital Signs Period Temp Pulse Resp BP Sys/[place] Pulse Ox Last 24 Hr 98 F-100.1 F 93-130 16-97 69-142/54-95 96-100 GENERAL: intubated, sedated HEAD: Normal with no signs of trauma. EYES: right pupil round and reactive, left pupil dilated compared to right and non reactive to light ENT: dry mucous membranes NECK: Trachea midline, supple, Right IJ central line in place LUNGS: diminished breath sounds at bases, no accessory muscle use HEART: tachycardic ABDOMEN: obese, soft, nontender, normoactive bowel sounds EXTREMITIES: 2+ pulses, warm, well-perfused. 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 dilated and fixed left pupil. unable to assess sensation Laboratory Results - last 24 hr 05/12/19 05/12/19 05/12/19 16:00 16:58 21:00 WBC RBC Hgb Hct MCV MCH MCHC RDW Plt Count MPV Absolute Neuts (auto) Neutrophils % Neutrophils % (Manual) Band Neutrophils % Lymphocytes % Lymphocytes % (Manual) Monocytes % Monocytes % (Manual) Eosinophils % Eosinophils % (Manual) Basophils % Basophils % (Manual) Myelocytes % (Man) Promyelocytes % (Man) Blast Cells % (Manual) Nucleated RBC % Metamyelocytes Hypochromia Platelet Estimate Platelet Comment Polychromasia Poikilocytosis Anisocytosis Microcytosis Macrocytosis Spherocytes Target Cells Tear Drop Cells Fragmented RBCs Puncture Site ABG pH ABG pCO2 at Pt Temp ABG pO2 at Pt Temp ABG HCO3 ABG O2 Sat (Measured) ABG O2 Content ABG Base Excess Adrian Test O2 Delivery Device Oxygen Flow Rate Mechanical Rate Pressure Support Vent Sodium 155 H 155 H Potassium 5.0 4.4 Chloride 117 H 116 H Carbon Dioxide 32 36 H Anion Gap 6 L 3 L BUN 92.7 H 94.8 H Creatinine 2.3 H 2.4 H Est GFR (CKD-EPI)AfAm 36.73 34.89 Est GFR (CKD-EPI)NonAf 31.69 30.10 POC Glucometer 357 Random Glucose 435 H* 340 H Calcium 9.8 9.6 Phosphorus Magnesium Total Bilirubin AST ALT Alkaline Phosphatase Total Protein Albumin Digoxin 05/12/19 05/13/19 05/13/19 23:38 01:19 02:10 WBC RBC Hgb Hct MCV MCH MCHC RDW Plt Count MPV Absolute Neuts (auto) Neutrophils % Neutrophils % (Manual) Band Neutrophils % Lymphocytes % Lymphocytes % (Manual) Monocytes % Monocytes % (Manual) Eosinophils % Eosinophils % (Manual) Basophils % Basophils % (Manual) Myelocytes % (Man) Promyelocytes % (Man) Blast Cells % (Manual) Nucleated RBC % Metamyelocytes Hypochromia Platelet Estimate Platelet Comment Polychromasia Poikilocytosis Anisocytosis Microcytosis Macrocytosis Spherocytes Target Cells Tear Drop Cells Fragmented RBCs Puncture Site ABG pH ABG pCO2 at Pt Temp ABG pO2 at Pt Temp ABG HCO3 ABG O2 Sat (Measured) ABG O2 Content ABG Base Excess Adrian Test O2 Delivery Device Oxygen Flow Rate Mechanical Rate Pressure Support Vent Sodium Cancelled Potassium Cancelled Chloride Cancelled Carbon Dioxide Cancelled Anion Gap Cancelled BUN Cancelled Creatinine Cancelled Est GFR (CKD-EPI)AfAm Cancelled Est GFR (CKD-EPI)NonAf Cancelled POC Glucometer 335 304 Random Glucose Cancelled Calcium Cancelled Phosphorus Cancelled Magnesium Cancelled Total Bilirubin AST ALT Alkaline Phosphatase Total Protein Albumin Digoxin 05/13/19 05/13/19 05/13/19 04:00 04:23 10:35 WBC RBC Hgb Hct MCV MCH MCHC RDW Plt Count MPV Absolute Neuts (auto) Neutrophils % Neutrophils % (Manual) Band Neutrophils % Lymphocytes % Lymphocytes % (Manual) Monocytes % Monocytes % (Manual) Eosinophils % Eosinophils % (Manual) Basophils % Basophils % (Manual) Myelocytes % (Man) Promyelocytes % (Man) Blast Cells % (Manual) Nucleated RBC % Metamyelocytes Hypochromia Platelet Estimate Platelet Comment Polychromasia Poikilocytosis Anisocytosis Microcytosis Macrocytosis Spherocytes Target Cells Tear Drop Cells Fragmented RBCs Puncture Site Right radial ABG pH 7.35 ABG pCO2 at Pt Temp 64.7 H ABG pO2 at Pt Temp 77.1 L ABG HCO3 34.4 H ABG O2 Sat (Measured) 93.5 L ABG O2 Content 17.2 ABG Base Excess 6.9 H Adrian Test Positive O2 Delivery Device Cpap Oxygen Flow Rate 60% Mechanical Rate Cpap Pressure Support Vent 12 Sodium Potassium Chloride Carbon Dioxide Anion Gap BUN Creatinine Est GFR (CKD-EPI)AfAm Est GFR (CKD-EPI)NonAf POC Glucometer 325 Random Glucose Calcium Phosphorus Magnesium Total Bilirubin AST ALT Alkaline Phosphatase Total Protein Albumin Digoxin 0.85 05/13/19 05/13/19 05/13/19 10:35 10:35 11:00 WBC 11.8 H RBC 5.02 Hgb 12.1 Hct 40.8 MCV 81.3 MCH 24.1 L MCHC 29.6 L RDW 19.2 H Plt Count 226 D MPV 9.8 Absolute Neuts (auto) 10.9 H Neutrophils % 92.4 H Neutrophils % (Manual) 88.9 H Band Neutrophils % 8.1 Lymphocytes % 1.5 L D Lymphocytes % (Manual) 2.0 L D Monocytes % 6.0 Monocytes % (Manual) 0 L D Eosinophils % 0.0 Eosinophils % (Manual) 0.0 Basophils % 0.1 Basophils % (Manual) 0.0 Myelocytes % (Man) 0 Promyelocytes % (Man) 0 Blast Cells % (Manual) 0 Nucleated RBC % 0 Metamyelocytes 0 Hypochromia 0 Platelet Estimate Normal Platelet Comment Present Polychromasia 0 Poikilocytosis 1+ Anisocytosis 2+ Microcytosis 2+ Macrocytosis 0 Spherocytes 1+ Target Cells 1+ Tear Drop Cells 1+ Fragmented RBCs 1+ Puncture Site ABG pH ABG pCO2 at Pt Temp ABG pO2 at Pt Temp ABG HCO3 ABG O2 Sat (Measured) ABG O2 Content ABG Base Excess Adrian Test O2 Delivery Device Oxygen Flow Rate Mechanical Rate Pressure Support Vent Sodium 153 H Potassium 4.4 Chloride 115 H Carbon Dioxide 33 H Anion Gap 5 L BUN 93.2 H Creatinine 2.4 H Est GFR (CKD-EPI)AfAm 34.89 Est GFR (CKD-EPI)NonAf 30.10 POC Glucometer 332 Random Glucose 354 H Calcium 9.8 Phosphorus 4.0 Magnesium 2.4 Total Bilirubin 1.1 H AST 158 H ALT 256 H Alkaline Phosphatase 85 Total Protein 6.1 L Albumin 2.5 L Digoxin 05/13/19 14:51 WBC RBC Hgb Hct MCV MCH MCHC RDW Plt Count MPV Absolute Neuts (auto) Neutrophils % Neutrophils % (Manual) Band Neutrophils % Lymphocytes % Lymphocytes % (Manual) Monocytes % Monocytes % (Manual) Eosinophils % Eosinophils % (Manual) Basophils % Basophils % (Manual) Myelocytes % (Man) Promyelocytes % (Man) Blast Cells % (Manual) Nucleated RBC % Metamyelocytes Hypochromia Platelet Estimate Platelet Comment Polychromasia Poikilocytosis Anisocytosis Microcytosis Macrocytosis Spherocytes Target Cells Tear Drop Cells Fragmented RBCs Puncture Site ABG pH ABG pCO2 at Pt Temp ABG pO2 at Pt Temp ABG HCO3 ABG O2 Sat (Measured) ABG O2 Content ABG Base Excess Adrian Test O2 Delivery Device Oxygen Flow Rate Mechanical Rate Pressure Support Vent Sodium Potassium Chloride Carbon Dioxide Anion Gap BUN Creatinine Est GFR (CKD-EPI)AfAm Est GFR (CKD-EPI)NonAf POC Glucometer 319 Random Glucose Calcium Phosphorus Magnesium Total Bilirubin AST ALT Alkaline Phosphatase Total Protein Albumin Digoxin Active Medications Generic Name Dose Route Start Last Admin Trade Name Freq PRN Reason Stop Dose Admin Chlorhexidine Gluconate 1 applic 04/30/19 22:00 05/12/19 21:25 Hibiclens For Decolonization - TP 1 applic HS ELISSA Administration Digoxin 0.125 mg 05/12/19 11:45 05/13/19 11:15 Lanoxin Injection - IVPUSH 0.125 mg DAILY ELISSA Administration Diltiazem HCl 10 mg 05/10/19 05:04 05/10/19 08:30 Cardizem Injection - IVPUSH 10 mg Q4H PRN Administration TACHYCARDIA Ferrous Sulfate 300 mg 05/09/19 10:00 05/13/19 11:18 Feosol NGT Not Given BID ELISSA Heparin Sodium (Porcine) 1,000 unit 05/13/19 13:43 Heparin - IVPUSH PRN PRN Heparin Heparin Sodium (Porcine) 5,000 unit 05/13/19 13:43 Heparin - IVPUSH PRN PRN Heparin Piperacillin Sod/Tazobactam 50 mls @ 100 mls/hr 05/01/19 18:00 05/13/19 11:19 Sod 3.375 gm/ Dextrose IVPB 100 mls/hr Q8H-IV ELISSA Administration Protocol Diltiazem HCl 125 mg/ Dextrose 125 mls @ 10 mls/hr 05/12/19 11:46 05/13/19 14 :00 IVPB 10 mg/hr TITR ELISSA 10 mls/hr Administration Protocol 10 MG/HR Amino Acids 1,000 mls @ 50 mls/hr 05/12/19 18:19 05/13/19 13:51 Clinimix - IV 50 mls/hr Q24H ELISSA Administration Propofol 1,000,000 mcg in 100 mls @ 3.463 mls/hr 05/13/19 08:30 05/13/19 13: 53 Diprivan - IVPB 15 mcg/kg/min TITR ELISSA 10.39 mls/hr Administration Protocol 5 MCG/KG/MIN Heparin Sodium (Porcine) 25, 500 mls @ 20 mls/hr 05/13/19 14:00 000 unit/ Sodium Chloride IV TITR ELISSA Protocol 1,000 UNIT/HR Sodium Chloride 1,000 mls @ 75 mls/hr 05/13/19 14:15 05/13/19 14:54 1/2 Normal Saline IV 75 mls/hr ASDIR ELISSA Administration Insulin Aspart 1 vial 05/13/19 00:00 05/13/19 11:18 Novolog Vial Sliding Scale - SQ 8 units Q4H ELISSA Administration Protocol Ipratropium [place] 1 amp 05/10/19 11:29 05/12/19 22:00 Atrovent 0.02% Nebulizer - NEB 05/17/19 11:29 1 amp Q6H PRN Administration DYSPEPSIA Methylprednisolone Sodium Succinate 40 mg 05/12/19 22:00 05/13/19 11:17 Solu-Medrol - IVPUSH 40 mg BID ELISSA Administration Metoprolol Tartrate 5 mg 04/30/19 08:57 05/10/19 08:43 Lopressor Injection - IVPUSH 5 mg Q4H PRN Administration TACHYCARDIA Metoprolol Tartrate 10 mg 05/10/19 21:00 05/13/19 11:16 Lopressor Injection - IVPUSH Not Given Q6H-IV ELISSA Thiamine HCl 200 mg 05/13/19 10:00 05/13/19 11:31 Vitamin B1 Injection - IVPB 200 mg DAILY ELISSA Administration ASSESSMENT/PLAN: 53 y/o/m with PMHx of DM2, HFpEF(last EF: 45-50%), 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 #Acute Hypoxic and Hypercapneic Respiratory Failure/ EMMY - extubated on 05/09, re-intubated on 05/13 - Pulm consulted - Hans RQID - Solumedrol 40mg BID, continue to taper steroids - Follow CXRs - Abx coverage broadened as per ID to Meropenem. Zosyn discontinued - Azithromycin and Vancomycin discontinued - ID consulted (Dr. 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 There is no evidence of myopathy, although given that patient was unable to participate, cannot rule out myopathic process" - Head CT - negative for acute pathology - unable to complete MRI due to non-MRI compatible vents - Neuro Consulted (Dr. Pleitez) - recommended bedside EEG #HFpEF vs. Cardiogenic shock - Lasix discontinued - Strict Is & Os, daily weights - ECHO - EF of 55-60%, no significant abnormalities noted, no vegetations - Cardiology Consult (Dr. Encinas) - restarted on Levophed for BP support - Cardio recommends cardiac PET or MRI to exclude cardiac involvement in sarcoidosis as outpatient. F/u with Dr. Genaro Davila at [place] #Atrial Flutter - Cardizem drip for rate control. Amiodarone drip discontinued - Digoxin 0.125mg daily, 0.25mg given once for loading dose - Lopressor 10mg IV Q6H ELISSA, Lopressor 5mg IV Q4H PRN - Cardizem 10mg IV Q4H PRN - Heparin drip restarted #RYNE on CKD w/ Hyperkalemia - Monitor BUN/Cr levels, baseline Cr ~1.5 - Renal function worsening, Cr at 2.4 - Nephrology Consulted (Dr. Kelley) - Likely secondary to volume overload. Pt. likely has CKD given risk factors of DM2 (uncontrolled glucose) and Heart Failure - 1/2 NS for hypernatremia which is improving. Increase free water - Hold Lisinopril, restart 10mg QD once improved renal function, BP #DM2 - BGM - ISS - will start patient of Levemir if sugars do not improve once off D5w #FEN - 1/2 NS @75mls/hr - monitor and replete lytes as needed - NG tube inserted, tube feeds started #Prophylaxis - Heparin Drip - Protonix #Disposition - Continue ICU monitoring, patient intubated again, on pressors for BP support Visit type - Emergency Visit Emergency Visit: Yes ED Registration Date: 04/30/19 Care time: The patient presented to the Emergency Department on the above date and was hospitalized for further evaluation of their emergent condition. - New Patient This patient is new to me today: No - Critical Care Critical Care patient: Yes Total Critical Care Time (in minutes): 36 Critical Care Statement: The care of this patient involved high complexity decision making to prevent further life threatening deterioration of the patient 's condition and/or to evaluate & treat vital organ system(s) failure or risk of failure. ATTENDING PHYSICIAN STATEMENT I saw and evaluated the patient. I reviewed the resident's note and discussed the case with the resident. I agree with the resident's findings and plan as documented. SUBJECTIVE: OBJECTIVE: ASSESSMENT AND PLAN:
--- NOTE | 2019-05-13 15:35 | PN ---
Physical Exam: SUBJECTIVE: Patient seen and examined. Intubated 2/2 worsening respiratory distress & AMS. Noted to have L dilated & fixed pupil w/ L sided motor & sensory deficits on morning physical exam. NIHSS 32. Stat CT head showed no acute hemorrhage or infarct. OBJECTIVE: Vital Signs Period Temp Pulse Resp BP Sys/[place] Pulse Ox Last 24 Hr 98 F-100.1 F 93-130 16-97 69-142/54-95 96-100 GENERAL: Intubated, sedated. Was altered prior to intubation. HEENT: ET tube in place. L pupil fixed & dilated, nonreactive to light. R pupil reactive. LUNGS: scattered rhonchi throughout HEART: Tachycardic, S1S2. no murmurs ABDOMEN: Soft NTND. +BS. EXTREMITIES: 2+ pulses intact b/l. 1+ LE edema. NEURO: (prior to sedation) 0/5 motor of b/l UE/LE. SKIN: Warm, dry Laboratory Results - last 24 hr Laboratory Last Values WBC 11.8 K/mm3 (4.0-10.0) H 05/13/19 10:35 RBC 5.02 M/mm3 (4.00-5.60) 05/13/19 10:35 Hgb 12.1 GM/dL (11.7-16.9) 05/13/19 10:35 Hct 40.8 % (35.4-49) 05/13/19 10:35 MCV 81.3 fl (80-96) 05/13/19 10:35 MCH 24.1 pg (25.7-33.7) L 05/13/19 10:35 MCHC 29.6 g/dl (32.0-35.9) L 05/13/19 10:35 RDW 19.2 % (11.9-15.9) H 05/13/19 10:35 Plt Count 226 K/MM3 (134-434) D 05/13/19 10:35 MPV 9.8 fl (7.5-11.1) 05/13/19 10:35 Absolute Neuts (auto) 10.9 K/mm3 (1.5-8.0) H 05/13/19 10:35 Total Counted 100 05/03/19 06:10 Neutrophils % 92.4 % (42.8-82.8) H 05/13/19 10:35 Neutrophils % (Manual) 88.9 % (42.8-82.8) H 05/13/19 10:35 Band Neutrophils % 8.1 % 05/13/19 10:35 Lymphocytes % 1.5 % (8-40) L D 05/13/19 10:35 Lymphocytes % (Manual) 2.0 % (8-40) L D 05/13/19 10:35 Monocytes % 6.0 % (3.8-10.2) 05/13/19 10:35 Monocytes % (Manual) 0 % (3.8-10.2) L D 05/13/19 10:35 Eosinophils % 0.0 % (0-4.5) 05/13/19 10:35 Eosinophils % (Manual) 0.0 % (0-4.5) 05/13/19 10:35 Basophils % 0.1 % (0-2.0) 05/13/19 10:35 Basophils % (Manual) 0.0 % (0-2.0) 05/13/19 10:35 Myelocytes % (Man) 0 % (0-2) 05/13/19 10:35 Promyelocytes % (Man) 0 % (0-2) 05/13/19 10:35 Blast Cells % (Manual) 0 % (0-0) 05/13/19 10:35 Nucleated RBC % 0 % (0-0) 05/13/19 10:35 Metamyelocytes 0 % (0-2) 05/13/19 10:35 Hypochromia 0 05/13/19 10:35 Toxic Granulation 2+ 05/08/19 06:05 Platelet Estimate Normal 05/13/19 10:35 Platelet Comment Present 05/13/19 10:35 Polychromasia 0 05/13/19 10:35 Poikilocytosis 1+ 05/13/19 10:35 Basophilic Stippling 1+ 05/01/19 05:25 Anisocytosis 2+ 05/13/19 10:35 Microcytosis 2+ 05/13/19 10:35 Macrocytosis 0 05/13/19 10:35 Spherocytes 1+ 05/13/19 10:35 Target Cells 1+ 05/13/19 10:35 Tear Drop Cells 1+ 05/13/19 10:35 Ovalocytes 1+ 05/08/19 06:05 Stomatocytes 1+ 05/07/19 05:15 [place] Cells 1+ 05/03/19 06:10 Acanthocytes (Spur) 1+ 05/08/19 06:05 Fragmented RBCs 1+ 05/13/19 10:35 PT with INR 12.90 SEC (9.7-13.0) 05/05/19 05:30 INR 1.09 (0.83-1.09) 05/05/19 05:30 PTT (Actin FS) 28.6 SECONDS (25.2-36.5) 05/12/19 05:52 Anticoagulation Therapy No Result Required. 05/12/19 11:30 Puncture Site Right radial 05/13/19 04:00 ABG pH 7.35 (7.35-7.45) 05/13/19 04:00 ABG pCO2 at Pt Temp 64.7 mmHg (35-45) H 05/13/19 04:00 ABG pO2 at Pt Temp 77.1 mmHg (80-100) L 05/13/19 04:00 ABG HCO3 34.4 mmol/L (22-27) H 05/13/19 04:00 ABG O2 Sat (Measured) 93.5 % (95-98) L 05/13/19 04:00 ABG O2 Content 17.2 % vol 05/13/19 04:00 ABG Base Excess 6.9 meq/l (-2-2) H 05/13/19 04:00 Adrian Test Positive 05/13/19 04:00 Carboxyhemoglobin 1.3 % (0-2) 04/30/19 06:45 Methemoglobin < 1.0 % (0-2) 04/30/19 06:45 O2 Delivery Device Cpap 05/13/19 04:00 Oxygen Flow Rate 60% 05/13/19 04:00 Vent Mode No Result Required. 05/12/19 11:30 Vent Rate No Result Required. 05/12/19 11:30 Mechanical Rate Cpap 05/13/19 04:00 PEEP 15.0 cmH2O 05/06/19 06:10 Pressure Support Vent 12 05/13/19 04:00 Sodium 153 mmol/L (136-145) H 05/13/19 10:35 Potassium 4.4 mmol/L (3.5-5.1) 05/13/19 10:35 Chloride 115 mmol/L (98-107) H 05/13/19 10:35 Carbon Dioxide 33 mmol/L (21-32) H 05/13/19 10:35 Anion Gap 5 MMOL/L (8-16) L 05/13/19 10:35 BUN 93.2 mg/dL (7-18) H 05/13/19 10:35 Creatinine 2.4 mg/dL (0.55-1.3) H 05/13/19 10:35 Est GFR (CKD-EPI)AfAm 34.89 05/13/19 10:35 Est GFR (CKD-EPI)NonAf 30.10 05/13/19 10:35 POC Glucometer 319 UNITS (80-120) 05/13/19 14:51 Random Glucose 354 mg/dL (74-106) H 05/13/19 10:35 Hemoglobin A1c % 8.9 % (4.2-6.3) H 05/01/19 05:25 Lactic Acid 1.2 mmol/L (0.4-2.0) 04/30/19 12:45 Calcium 9.8 mg/dL (8.5-10.1) 05/13/19 10:35 Phosphorus 4.0 mg/dL (2.5-4.9) 05/13/19 10:35 Magnesium 2.4 mg/dL (1.8-2.4) 05/13/19 10:35 Iron 26 ug/dL (50-175) L 05/01/19 05:25 TIBC 389 ug/dL (250-450) 05/01/19 05:25 Iron Saturation 6 % (17.5-39) L 05/01/19 05:25 Unsaturated IBC 363 ug/dL (200-275) H 05/01/19 05:25 Ferritin 36.6 ng/ml (8-388) 05/01/19 05:25 Total Bilirubin 1.1 mg/dL (0.2-1) H 05/13/19 10:35 Direct Bilirubin 0.2 mg/dL (0.0-0.2) 05/05/19 05:30 AST 158 U/L (15-37) H 05/13/19 10:35 ALT 256 U/L (13-61) H 05/13/19 10:35 Alkaline Phosphatase 85 U/L (45-117) 05/13/19 10:35 Creatine Kinase 179 U/L (26-308) 05/11/19 05:55 Creatine Kinase Index No Result Required. 05/11/19 05:55 CK-MB (CK-2) < 1.0 ng/mL (0.5-3.6) 05/11/19 05:55 Troponin I < 0.02 ng/ml (0.00-0.05) 05/05/19 05:30 B-Natriuretic Peptide 781.3 pg/ml (5-125) H 05/04/19 05:20 Total Protein 6.1 g/dl (6.4-8.2) L 05/13/19 10:35 Albumin 2.5 g/dl (3.4-5.0) L 05/13/19 10:35 TSH 1.59 uIU/ml (0.358-3.74) 05/11/19 05:55 Urine Color Yellow 04/30/19 05:35 Urine Appearance Clear 04/30/19 05:35 Urine pH 5.0 (5.0-8.0) 04/30/19 05:35 Ur Specific [place] 1.019 (1.010-1.035) 04/30/19 05:35 Urine Protein Trace (NEGATIVE) 04/30/19 05:35 Urine Glucose (UA) Negative (NEGATIVE) 04/30/19 05:35 Urine Ketones Negative (NEGATIVE) 04/30/19 05:35 Urine Blood Negative (NEGATIVE) 04/30/19 05:35 Urine Nitrite Negative (NEGATIVE) 04/30/19 05:35 Urine Bilirubin Negative (NEGATIVE) 04/30/19 05:35 Urine Urobilinogen 0.2 mg/dL (0.2-1.0) 04/30/19 05:35 Ur Leukocyte Esterase Negative (NEGATIVE) 04/30/19 05:35 Random Vancomycin 15.7 ug/ml (18-26) L 05/09/19 05:24 Digoxin 0.85 ng/ml (0.8-2.0) 05/13/19 10:35 Influenza A (Rapid) Negative (Negative) 04/30/19 20:15 Influenza B (Rapid) Negative (Negative) 04/30/19 20:15 Active Medications Current Medications Chlorhexidine Gluconate (Hibiclens For Decolonization -) 1 applic TP HS [facility] Last Admin: 05/12/19 21:25 Dose: 1 applic Digoxin (Lanoxin Injection -) 0.125 mg IVPUSH DAILY [facility] Last Admin: 05/13/19 11:15 Dose: 0.125 mg Diltiazem HCl (Cardizem Injection -) 10 mg IVPUSH Q4H PRN PRN Reason: TACHYCARDIA Last Admin: 05/10/19 08:30 Dose: 10 mg Ferrous Sulfate (Feosol) 300 mg NGT BID [facility] Last Admin: 05/13/19 11:18 Dose: Not Given Heparin Sodium (Porcine) (Heparin -) 1,000 unit IVPUSH PRN PRN PRN Reason: Heparin Heparin Sodium (Porcine) (Heparin -) 5,000 unit IVPUSH PRN PRN PRN Reason: Heparin Piperacillin Sod/Tazobactam (Sod 3.375 gm/ Dextrose) 50 mls @ 100 mls/hr IVPB Q8H-IV ELISSA; Protocol Last Admin: 05/13/19 11:19 Dose: 100 mls/hr Diltiazem HCl 125 mg/ Dextrose 125 mls @ 10 mls/hr IVPB TITR [facility]; Protocol Last Admin: 05/13/19 14:00 Dose: 10 mg/hr, 10 mls/hr Amino Acids (Clinimix -) 1,000 mls @ 50 mls/hr IV Q24H [facility] Last Admin: 05/13/19 13:51 Dose: 50 mls/hr Propofol (Diprivan -) 1,000,000 mcg in 100 mls @ 3.463 mls/hr IVPB TITR [facility]; Protocol Last Admin: 05/13/19 13:53 Dose: 15 mcg/kg/min, 10.39 mls/hr Heparin Sodium (Porcine) 25, (000 unit/ Sodium Chloride) 500 mls @ 20 mls/hr IV TITR [facility]; Protocol Sodium Chloride (1/2 Normal Saline) 1,000 mls @ 75 mls/hr IV ASDIR [facility] Last Admin: 05/13/19 14:54 Dose: 75 mls/hr Insulin Aspart (Novolog Vial Sliding Scale -) 1 vial SQ Q4H ELISSA; Protocol Last Admin: 05/13/19 11:18 Dose: 8 units Ipratropium [place] (Atrovent 0.02% Nebulizer -) 1 amp NEB Q6H PRN PRN Reason: DYSPEPSIA Stop: 05/17/19 11:29 Last Admin: 05/12/19 22:00 Dose: 1 amp Methylprednisolone Sodium Succinate (Solu-Medrol -) 40 mg IVPUSH BID [facility] Last Admin: 05/13/19 11:17 Dose: 40 mg Metoprolol Tartrate (Lopressor Injection -) 5 mg IVPUSH Q4H PRN PRN Reason: TACHYCARDIA Last Admin: 05/10/19 08:43 Dose: 5 mg Metoprolol Tartrate (Lopressor Injection -) 10 mg IVPUSH Q6H-IV [facility] Last Admin: 05/13/19 11:16 Dose: Not Given Thiamine HCl (Vitamin B1 Injection -) 200 mg IVPB DAILY [facility] Last Admin: 05/13/19 11:31 Dose: 200 mg ASSESSMENT/PLAN: 53 y.o. M PMH DM2, HFpEF(last EF: 45-50%), EMMY (non-adherent to CPAP) and atrial flutter w/ acute hypoxic hypercapneic resp failure---> ARDS #[place] -re-intubated, sedated w/ propofol -CT head shows no acute hemorrhage or infarct. no edema/ midline shift/ mass effect/ fracture. asymemtry of cavernous sinuses L>R -Dr. Jaime recommending bedside EEG -neuro checks q1h #CV -R IJ placed, no pressors at this time -maintain MAP >65 may initate pressor support if needed -Hx of A-flutter, heparin drip resumed. digoxin IV 0.125mg daily, lopressor TID and PRN -Hx of HFpEF- holding lasix -tachycardic, continue with cardizem drip for rate control -Amiodarone drip d/c'd -Resume Lisinopril 10 mg QD once renal function and hyperkalemia stabilizes -Cardiology following #Pulm -Acute Hypoxic and Hypercapneic Respiratory Failure, presenting with ARDS -now intubated, vent settings 350/35/100%/5 -continue Solumedrol 40mg IV BID -atrovent nebs prn #Renal -renal function worsening cr 2.4, trend renal labs -persistent hypernatremia, started 1/2 NS -Nephrology following -consider tube feeds w/ free water replacement -monitor outputs #GI -Protonix 40 mg IV daily -clinimix #ID -continue zosyn -repeat blood cx's neg -ID following #Endo -Hx of DM -BGMs ACHS -ISS -D/c'd D5W as bgms & serum glucose uncontrolled. consider long acting insulin if no improvement. #FENLTD -1/ NS @75cc/hr -trend lytes replete prn -clinimix @ 50cc/hr -R IJ placed today 05/13/2019 -ortiz in place Dispo Continuing ICU level of care Visit type - Emergency Visit Emergency Visit: No - New Patient This patient is new to me today: No - Critical Care Critical Care patient: Yes Total Critical Care Time (in minutes): 45 Critical Care Statement: The care of this patient involved high complexity deci elaine making to prevent further life threatening deterioration of the patient's condition and/or to evaluate & treat vital organ system(s) failure or risk of failure. ATTENDING PHYSICIAN STATEMENT I saw and evaluated the patient. I reviewed the resident's note and discussed the case with the resident. I agree with the resident's findings and plan as documented. SUBJECTIVE: OBJECTIVE: ASSESSMENT AND PLAN:
[2019-05-13] MEDS ORDERED: NOREPINEPHRINE BITARTRATE 8,000 MCG in DEXTROSE 5%-WATER - 492 ML IV SCH (16:00)
[2019-05-13] MEDS ORDERED: NOREPINEPHRINE BITARTRATE 4 MG/4 ML ML IV ONE (16:04)
--- NOTE | 2019-05-13 17:28 | PN ---
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, Physician History of Present Illness: RE-INTUBATED TEMP ELEVATION NOTED NO ACUTE DISTRESS WBC SL ELEVATED REPEAT BC ORDERED + AZOTEMIA - Current Medication List Current Medications: Active Medications Chlorhexidine Gluconate (Hibiclens For Decolonization -) 1 applic TP HS ELISSA Last Admin: 05/12/19 21:25 Dose: 1 applic Digoxin (Lanoxin Injection -) 0.125 mg IVPUSH DAILY ELISSA Last Admin: 05/13/19 11:15 Dose: 0.125 mg Diltiazem HCl (Cardizem Injection -) 10 mg IVPUSH Q4H PRN PRN Reason: TACHYCARDIA Last Admin: 05/10/19 08:30 Dose: 10 mg Ferrous Sulfate (Feosol) 300 mg NGT BID ELISSA Last Admin: 05/13/19 11:18 Dose: Not Given Heparin Sodium (Porcine) (Heparin -) 1,000 unit IVPUSH PRN PRN PRN Reason: Heparin Heparin Sodium (Porcine) (Heparin -) 5,000 unit IVPUSH PRN PRN PRN Reason: Heparin Piperacillin Sod/Tazobactam (Sod 3.375 gm/ Dextrose) 50 mls @ 100 mls/hr IVPB Q8H-IV ELISSA; Protocol Last Admin: 05/13/19 11:19 Dose: 100 mls/hr Diltiazem HCl 125 mg/ Dextrose 125 mls @ 10 mls/hr IVPB TITR ELISSA; Protocol Last Admin: 05/13/19 14:00 Dose: 10 mg/hr, 10 mls/hr Amino Acids (Clinimix -) 1,000 mls @ 50 mls/hr IV Q24H ELISSA Last Admin: 05/13/19 13:51 Dose: 50 mls/hr Propofol (Diprivan -) 1,000,000 mcg in 100 mls @ 3.463 mls/hr IVPB TITR ELISSA; Protocol Last Admin: 05/13/19 13:53 Dose: 15 mcg/kg/min, 10.39 mls/hr Heparin Sodium (Porcine) 25, (000 unit/ Sodium Chloride) 500 mls @ 20 mls/hr IV TITR ELISSA; Protocol Last Admin: 05/13/19 15:49 Dose: 1,000 unit/hr, 20 mls/hr Sodium Chloride (1/2 Normal Saline) 1,000 mls @ 75 mls/hr IV ASDIR ELISSA Last Admin: 05/13/19 14:54 Dose: 75 mls/hr Norepinephrine Bitartrate 8, (000 mcg/ Dextrose) 500 mls @ 18.75 mls/hr IV TITR [facility]; Protocol Last Admin: 05/13/19 16:12 Dose: 5 mcg/min, 18.75 mls/hr Insulin Aspart (Novolog Vial Sliding Scale -) 1 vial SQ Q4H [facility]; Protocol Last Admin: 05/13/19 15:57 Dose: 8 units Ipratropium [place] (Atrovent 0.02% Nebulizer -) 1 amp NEB Q6H PRN PRN Reason: DYSPEPSIA Stop: 05/17/19 11:29 Last Admin: 05/12/19 22:00 Dose: 1 amp Methylprednisolone Sodium Succinate (Solu-Medrol -) 40 mg IVPUSH BID [facility] Last Admin: 05/13/19 11:17 Dose: 40 mg Metoprolol Tartrate (Lopressor Injection -) 5 mg IVPUSH Q4H PRN PRN Reason: TACHYCARDIA Last Admin: 05/10/19 08:43 Dose: 5 mg Metoprolol Tartrate (Lopressor Injection -) 10 mg IVPUSH Q6H-IV [facility] Last Admin: 05/13/19 15:56 Dose: Not Given Pantoprazole Sodium (Protonix Iv) 40 mg IVPUSH DAILY [facility] Thiamine HCl (Vitamin B1 Injection -) 200 mg IVPB DAILY [facility] Last Admin: 05/13/19 11:31 Dose: 200 mg - Objective Vital Signs: Vital Signs Temperature 100.6 F H 05/13/19 17:02 Pulse Rate 113 H 05/13/19 17:02 Respiratory Rate 35 H 05/13/19 17:03 Blood Pressure 121/74 05/13/19 17:02 O2 Sat by Pulse Oximetry (%) 100 05/13/19 14:18 Constitutional: Yes: No Distress, Obese Cardiovascular: Yes: Regular Rate and Rhythm, S1, S2 Respiratory: Yes: Mechanically Ventilated Gastrointestinal: Yes: Normal Bowel Sounds, Soft. No: Tenderness Edema: Yes Labs: CBC, BMP 05/13/19 10:35 05/13/19 10:35 INR, PTT INR 1.09 (0.83-1.09) 05/05/19 05:30 Assessment/Plan RESP FAILURE S/P RE-INTUBATION CHF/ PNEUMONIA RENAL FAILURE CONTINUE VENTILATORY/ HEMODYNAMIC SUPPORT RECULTURE WILL [employer] MEROPENEM + STAT DOSE VANCOMYCIN
[2019-05-13 17:42] LABS: ARTERIAL BLD GAS O2 SATURATION 96.3 % (95-98); ARTERIAL BLOOD GAS BASE EXCESS 6.8 meq/l (-2-2); ARTERIAL BLOOD GAS PCO2 47.2 mmHg (35-45); ARTERIAL BLOOD GAS PO2 89.5 mmHg (80-100); ARTERIAL BLOOD GAS pH 7.44 (7.35-7.45)
[2019-05-13 17:45] LABS: ALLENS TEST POSITIVE
[2019-05-13] MEDS ORDERED: VANCOMYCIN 1 GRAM (PRE-DOCKED) 1,000 MG/250 ML BAG IVPB ONE (17:45)
[2019-05-13] MEDS ORDERED: MEROPENEM 500 MG VIAL (RESTRICTED TO ID) IVPB ONE (17:52)
[2019-05-13] MEDS ORDERED: DEXTROSE 5%-WATER 100 ML IVPB ONE (17:52)
[2019-05-13] MEDS: MEROPENEM 500 MG in DEXTROSE 5%-WATER 100 ML IVPB SCH (19:28)
[2019-05-13] MEDS: CHLORHEXIDINE GLUCONATE 4% CLEANSER FOR DECOLONIZATION TP SCH (21:39)
[2019-05-13] MEDS ORDERED: SODIUM CHLORIDE 0.45% IV SCH ×2 (22:15→22:17)
[2019-05-13] MEDS ORDERED: DEXTROSE 5% IV SCH (22:15)
[2019-05-13] MEDS ORDERED: NOREPINEPHRINE BITARTRATE IV SCH ×3 (22:15→22:17)
[2019-05-13] MEDS ORDERED: WATER IV SCH (22:15)
[2019-05-13] MEDS: INSULIN (LEVEMIR) 100 UNITS/ML UNITS SQ SCH (22:45)
[2019-05-13 23:12] LABS: BLOOD UREA NITROGEN 101.5 mg/dL (7-18); CALCIUM 9.2 mg/dL (8.5-10.1); CREATININE 2.5 mg/dL (0.55-1.3); POTASSIUM 4.3 mmol/L (3.5-5.1)
[2019-05-14] MEDS: INSULIN SLIDING SCALE (NOVOLOG) 1 VIAL SQ SCH ×6 (00:22→21:34)
[2019-05-14] MEDS: METOPROLOL TARTRATE 5 MG/5 ML VIAL IVPUSH SCH ×2 (03:58→10:21)
[2019-05-14] MEDS ORDERED: DEXTROSE 5%-WATER 100 ML IVPB ONE ×2 (04:24→17:27)
[2019-05-14] MEDS ORDERED: MEROPENEM 500 MG VIAL (RESTRICTED TO ID) IVPB ONE ×2 (04:24→17:26)
[2019-05-14] MEDS: MEROPENEM 500 MG in DEXTROSE 5%-WATER 100 ML IVPB SCH ×2 (05:14→17:34)
[2019-05-14] MEDS: INSULIN (LEVEMIR) 100 UNITS/ML UNITS SQ SCH ×2 (06:28→21:35)
[2019-05-14 06:34] LABS: BASO % 0.5 % (0-2.0); HEMATOCRIT 39.2 % (35.4-49); HEMOGLOBIN 11.9 GM/dL (11.7-16.9); MCH 24.5 pg (25.7-33.7); MCHC 30.4 g/dl (32.0-35.9); MEAN CELL VOLUME 80.7 fl (80-96); MEAN PLT VOLUME 10.4 fl (7.5-11.1); MONO % 3.9 % (3.8-10.2); NEUT % 93.6 % (42.8-82.8); PLATELET COUNT 239 K/MM3 (134-434); RBC 4.86 M/mm3 (4.00-5.60); RDW 19.2 % (11.9-15.9); WHITE BLOOD COUNT 10.7 K/mm3 (4.0-10.0)
[2019-05-14 07:41] LABS: ALBUMIN 2.6 g/dl (3.4-5.0); BILIRUBIN,TOTAL 0.8 mg/dL (0.2-1); BLOOD UREA NITROGEN 100.8 mg/dL (7-18); CALCIUM 9.3 mg/dL (8.5-10.1); CREATININE 2.2 mg/dL (0.55-1.3); MAGNESIUM 2.3 mg/dL (1.8-2.4); PHOSPHOROUS 2.5 mg/dL (2.5-4.9); POTASSIUM 3.9 mmol/L (3.5-5.1)
[2019-05-14] MEDS: PROPOFOL 1,000,000 MCG/100 ML VIAL IVPB SCH (08:40)
--- NOTE | 2019-05-14 08:51 | PN ---
Physical Exam: SUBJECTIVE: Patient seen and examined. On sedation vacation this morning. Awake while still intubated. Able to follow basic commands. OBJECTIVE: Vital Signs Period Temp Pulse Resp BP Sys/[place] Pulse Ox Last 24 Hr 98.4 F-100.6 F 84-129 34-36 67-136/45-77 97-100 GENERAL: intubated, sedated HEAD: Normal with no signs of trauma. EYES: PERRL ENT: dry mucous membranes NECK: Trachea midline, supple, Right IJ central line in place LUNGS: diminished breath sounds at bases, no accessory muscle use HEART: tachycardic ABDOMEN: obese, soft, nontender, normoactive bowel sounds EXTREMITIES: 2+ pulses, warm, well-perfused. 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 able to wiggle toes on both lower extremities. follows basic commands. PERRL Laboratory Results - last 24 hr 05/13/19 05/13/19 05/13/19 10:35 10:35 10:35 WBC 11.8 H RBC 5.02 Hgb 12.1 Hct 40.8 MCV 81.3 MCH 24.1 L MCHC 29.6 L RDW 19.2 H Plt Count 226 D MPV 9.8 Absolute Neuts (auto) 10.9 H Neutrophils % 92.4 H Neutrophils % (Manual) 88.9 H Band Neutrophils % 8.1 Lymphocytes % 1.5 L D Lymphocytes % (Manual) 2.0 L D Monocytes % 6.0 Monocytes % (Manual) 0 L D Eosinophils % 0.0 Eosinophils % (Manual) 0.0 Basophils % 0.1 Basophils % (Manual) 0.0 Myelocytes % (Man) 0 Promyelocytes % (Man) 0 Blast Cells % (Manual) 0 Nucleated RBC % 0 Metamyelocytes 0 Hypochromia 0 Platelet Estimate Normal Platelet Comment Present Polychromasia 0 Poikilocytosis 1+ Anisocytosis 2+ Microcytosis 2+ Macrocytosis 0 Spherocytes 1+ Target Cells 1+ Tear Drop Cells 1+ Fragmented RBCs 1+ PTT (Actin FS) Anticoagulation Therapy Puncture Site ABG pH ABG pCO2 at Pt Temp ABG pO2 at Pt Temp ABG HCO3 ABG O2 Sat (Measured) ABG O2 Content ABG Base Excess Adrian Test O2 Delivery Device Oxygen Flow Rate Vent Mode Vent Rate Mechanical Rate PEEP Pressure Support Vent Sodium 153 H Potassium 4.4 Chloride 115 H Carbon Dioxide 33 H Anion Gap 5 L BUN 93.2 H Creatinine 2.4 H Est GFR (CKD-EPI)AfAm 34.89 Est GFR (CKD-EPI)NonAf 30.10 POC Glucometer Random Glucose 354 H Calcium 9.8 Phosphorus 4.0 Magnesium 2.4 Total Bilirubin 1.1 H AST 158 H ALT 256 H Alkaline Phosphatase 85 Total Protein 6.1 L Albumin 2.5 L Digoxin 0.85 05/13/19 05/13/19 05/13/19 11:00 14:51 17:25 WBC RBC Hgb Hct MCV MCH MCHC RDW Plt Count MPV Absolute Neuts (auto) Neutrophils % Neutrophils % (Manual) Band Neutrophils % Lymphocytes % Lymphocytes % (Manual) Monocytes % Monocytes % (Manual) Eosinophils % Eosinophils % (Manual) Basophils % Basophils % (Manual) Myelocytes % (Man) Promyelocytes % (Man) Blast Cells % (Manual) Nucleated RBC % Metamyelocytes Hypochromia Platelet Estimate Platelet Comment Polychromasia Poikilocytosis Anisocytosis Microcytosis Macrocytosis Spherocytes Target Cells Tear Drop Cells Fragmented RBCs PTT (Actin FS) Anticoagulation Therapy No Result Required. Puncture Site Right radial ABG pH 7.44 ABG pCO2 at Pt Temp 47.2 H ABG pO2 at Pt Temp 89.5 ABG HCO3 31.6 H ABG O2 Sat (Measured) 96.3 ABG O2 Content 17.2 ABG Base Excess 6.8 H Adrian Test Positive O2 Delivery Device No Result Required. Oxygen Flow Rate 80% Vent Mode No Result Required. Vent Rate 35 Mechanical Rate Vent PEEP 5.0 Pressure Support Vent 350 Sodium Potassium Chloride Carbon Dioxide Anion Gap BUN Creatinine Est GFR (CKD-EPI)AfAm Est GFR (CKD-EPI)NonAf POC Glucometer 332 319 Random Glucose Calcium Phosphorus Magnesium Total Bilirubin AST ALT Alkaline Phosphatase Total Protein Albumin Digoxin 05/13/19 05/13/19 05/13/19 20:33 21:58 22:15 WBC RBC Hgb Hct MCV MCH MCHC RDW Plt Count MPV Absolute Neuts (auto) Neutrophils % Neutrophils % (Manual) Band Neutrophils % Lymphocytes % Lymphocytes % (Manual) Monocytes % Monocytes % (Manual) Eosinophils % Eosinophils % (Manual) Basophils % Basophils % (Manual) Myelocytes % (Man) Promyelocytes % (Man) Blast Cells % (Manual) Nucleated RBC % Metamyelocytes Hypochromia Platelet Estimate Platelet Comment Polychromasia Poikilocytosis Anisocytosis Microcytosis Macrocytosis Spherocytes Target Cells Tear Drop Cells Fragmented RBCs PTT (Actin FS) 33.2 Anticoagulation Therapy Puncture Site ABG pH ABG pCO2 at Pt Temp ABG pO2 at Pt Temp ABG HCO3 ABG O2 Sat (Measured) ABG O2 Content ABG Base Excess Adrian Test O2 Delivery Device Oxygen Flow Rate Vent Mode Vent Rate Mechanical Rate PEEP Pressure Support Vent Sodium Potassium Chloride Carbon Dioxide Anion Gap BUN Creatinine Est GFR (CKD-EPI)AfAm Est GFR (CKD-EPI)NonAf POC Glucometer 407 405 Random Glucose Calcium Phosphorus Magnesium Total Bilirubin AST ALT Alkaline Phosphatase Total Protein Albumin Digoxin 05/13/19 05/14/19 05/14/19 22:15 00:13 04:05 WBC RBC Hgb Hct MCV MCH MCHC RDW Plt Count MPV Absolute Neuts (auto) Neutrophils % Neutrophils % (Manual) Band Neutrophils % Lymphocytes % Lymphocytes % (Manual) Monocytes % Monocytes % (Manual) Eosinophils % Eosinophils % (Manual) Basophils % Basophils % (Manual) Myelocytes % (Man) Promyelocytes % (Man) Blast Cells % (Manual) Nucleated RBC % Metamyelocytes Hypochromia Platelet Estimate Platelet Comment Polychromasia Poikilocytosis Anisocytosis Microcytosis Macrocytosis Spherocytes Target Cells Tear Drop Cells Fragmented RBCs PTT (Actin FS) Anticoagulation Therapy Puncture Site ABG pH ABG pCO2 at Pt Temp ABG pO2 at Pt Temp ABG HCO3 ABG O2 Sat (Measured) ABG O2 Content ABG Base Excess Adrian Test O2 Delivery Device Oxygen Flow Rate Vent Mode Vent Rate Mechanical Rate PEEP Pressure Support Vent Sodium 150 H Potassium 4.3 Chloride 112 H Carbon Dioxide 31 Anion Gap 6 L BUN 101.5 H Creatinine 2.5 H Est GFR (CKD-EPI)AfAm 33.21 Est GFR (CKD-EPI)NonAf 28.65 POC Glucometer 375 309 Random Glucose 448 H* Calcium 9.2 Phosphorus Magnesium Total Bilirubin AST ALT Alkaline Phosphatase Total Protein Albumin Digoxin 05/14/19 05/14/19 05/14/19 06:05 06:05 06:05 WBC 10.7 H RBC 4.86 Hgb 11.9 Hct 39.2 MCV 80.7 MCH 24.5 L MCHC 30.4 L RDW 19.2 H Plt Count 239 MPV 10.4 Absolute Neuts (auto) 10.0 H Neutrophils % 93.6 H Neutrophils % (Manual) Band Neutrophils % Lymphocytes % 2.0 L D Lymphocytes % (Manual) Monocytes % 3.9 Monocytes % (Manual) Eosinophils % 0.0 Eosinophils % (Manual) Basophils % 0.5 D Basophils % (Manual) Myelocytes % (Man) Promyelocytes % (Man) Blast Cells % (Manual) Nucleated RBC % 0 Metamyelocytes Hypochromia Platelet Estimate Platelet Comment Polychromasia Poikilocytosis Anisocytosis Microcytosis Macrocytosis Spherocytes Target Cells Tear Drop Cells Fragmented RBCs PTT (Actin FS) 64.8 H Anticoagulation Therapy Puncture Site ABG pH ABG pCO2 at Pt Temp ABG pO2 at Pt Temp ABG HCO3 ABG O2 Sat (Measured) ABG O2 Content ABG Base Excess Adrian Test O2 Delivery Device Oxygen Flow Rate Vent Mode Vent Rate Mechanical Rate PEEP Pressure Support Vent Sodium 150 H Potassium 3.9 Chloride 113 H Carbon Dioxide 30 Anion Gap 7 L BUN 100.8 H Creatinine 2.2 H Est GFR (CKD-EPI)AfAm 38.76 Est GFR (CKD-EPI)NonAf 33.44 POC Glucometer Random Glucose 329 H Calcium 9.3 Phosphorus 2.5 Magnesium 2.3 Total Bilirubin 0.8 AST 88 H ALT 225 H Alkaline Phosphatase 84 Total Protein 6.0 L Albumin 2.6 L Digoxin Active Medications Generic Name Dose Route Start Last Admin Trade Name Freq PRN Reason Stop Dose Admin Chlorhexidine Gluconate 1 applic 04/30/19 22:00 05/13/19 21:39 Hibiclens For Decolonization - TP 1 applic HS ELISSA Administration Digoxin 0.125 mg 05/12/19 11:45 05/13/19 11:15 Lanoxin Injection - IVPUSH 0.125 mg DAILY ELISSA Administration Diltiazem HCl 10 mg 05/10/19 05:04 05/10/19 08:30 Cardizem Injection - IVPUSH 10 mg Q4H PRN Administration TACHYCARDIA Ferrous Sulfate 300 mg 05/09/19 10:00 05/13/19 21:39 Feosol NGT 300 mg BID ELISSA Administration Heparin Sodium (Porcine) 1,000 unit 05/13/19 13:43 Heparin - IVPUSH PRN PRN Heparin Heparin Sodium (Porcine) 5,000 unit 05/13/19 13:43 05/13/19 23:40 Heparin - IVPUSH 5,000 unit PRN PRN Administration Heparin Diltiazem HCl 125 mg/ Dextrose 125 mls @ 10 mls/hr 05/12/19 11:46 05/13/19 14 :00 IVPB 10 mg/hr TITR ELISSA 10 mls/hr Administration Protocol 10 MG/HR Propofol 1,000,000 mcg in 100 mls @ 3.463 mls/hr 05/13/19 08:30 05/14/19 08: 40 Diprivan - IVPB 25 mcg/kg/min TITR ELISSA 17.316 mls/hr Administration Protocol 5 MCG/KG/MIN Heparin Sodium (Porcine) 25, 500 mls @ 20 mls/hr 05/13/19 14:00 05/13/19 23: 35 000 unit/ Sodium Chloride IV 1,150 unit/hr TITR ELISSA 23 mls/hr Titration Protocol 1,000 UNIT/HR Sodium Chloride 1,000 mls @ 75 mls/hr 05/13/19 14:15 05/13/19 14:54 1/2 Normal Saline IV 75 mls/hr ASDIR ELISSA Administration Meropenem 500 mg/ Dextrose 100 mls @ 200 mls/hr 05/13/19 18:00 05/14/19 05:14 IVPB 200 mls/hr Q12H ELISSA Administration Norepinephrine Bitartrate 8, 500 mls @ 15 mls/hr 05/13/19 22:17 05/13/19 22: 38 000 mcg/ Sodium Chloride IV 15 mls/hr ASDIR ELISSA Administration Protocol 4 MCG/MIN Dexmedetomidine HCl 200 mcg/ 50 mls @ 5.93 mls/hr 05/14/19 07:30 Sodium Chloride IVPB TITR ELISSA 0.2 MCG/KG/HR Insulin Aspart 1 vial 05/13/19 00:00 05/14/19 04:11 Novolog Vial Sliding Scale - SQ 8 units Q4H ELISSA Administration Protocol Insulin Detemir 20 units 05/13/19 22:15 05/14/19 06:28 Levemir Vial SQ 20 units BID@0700,2200 ELISSA Administration Ipratropium [place] 1 amp 05/10/19 11:29 05/12/19 22:00 Atrovent 0.02% Nebulizer - NEB 05/17/19 11:29 1 amp Q6H PRN Administration DYSPEPSIA Methylprednisolone Sodium Succinate 40 mg 05/12/19 22:00 05/13/19 21:39 Solu-Medrol - IVPUSH 40 mg BID ELISSA Administration Metoprolol Tartrate 5 mg 04/30/19 08:57 05/10/19 08:43 Lopressor Injection - IVPUSH 5 mg Q4H PRN Administration TACHYCARDIA Metoprolol Tartrate 10 mg 05/10/19 21:00 05/14/19 03:58 Lopressor Injection - IVPUSH 10 mg Q6H-IV ELISSA Administration Pantoprazole Sodium 40 mg 05/14/19 10:00 Protonix Iv IVPUSH DAILY ELISSA Thiamine HCl 200 mg 05/13/19 10:00 05/13/19 11:31 Vitamin B1 Injection - IVPB 200 mg DAILY ELISSA Administration ASSESSMENT/PLAN: 53 y/o/m with PMHx of DM2, HFpEF(last EF: 45-50%), 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 #Acute Hypoxic and Hypercapneic Respiratory Failure/ EMMY - extubated on 05/09, re-intubated on 05/13 - Pulm consulted - Hans RQID - Solumedrol 40mg daily, tapered down from BID. continue to taper steroids - Follow CXRs - Abx coverage broadened as per ID to Meropenem. Zosyn discontinued - Azithromycin and Vancomycin discontinued - ID consulted (Dr. 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 There is no evidence of myopathy, although given that patient was unable to participate, cannot rule out myopathic process" - Head CT - negative for acute pathology - unable to complete MRI due to non-MRI compatible vents - Neuro Consulted (Dr. Pleitez) - recommended bedside EEG #HFpEF vs. Cardiogenic shock - Lasix discontinued - Strict Is & Os, daily weights - ECHO - EF of 55-60%, no significant abnormalities noted, no vegetations - Cardiology Consult (Dr. Encinas) - Levophed for BP support - Cardio recommends cardiac PET or MRI to exclude cardiac involvement in sarcoidosis as outpatient. F/u with Dr. Genaro Davila at [facility] #Atrial Flutter - Cardizem drip for rate control. Amiodarone drip discontinued - Digoxin 0.125mg daily, 0.25mg given once for loading dose - Lopressor 10mg IV Q6H ELISSA, Lopressor 5mg IV Q4H PRN - Cardizem 10mg IV Q4H PRN - Heparin drip restarted #RYNE on CKD w/ Hyperkalemia - Monitor BUN/Cr levels, baseline Cr ~1.5 - Renal function worsening, Cr at 2.2 - Nephrology Consulted (Dr. Kelley) - Likely secondary to volume overload. Pt. likely has CKD given risk factors of DM2 (uncontrolled glucose) and Heart Failure - 1/2 NS for hypernatremia which is improving. Increase free water - Hold Lisinopril, restart 10mg QD once improved renal function, BP #DM2 - BGM - ISS - Levemir 20mg BID #FEN - 1/2 NS @75mls/hr - monitor and replete lytes as needed - NG tube inserted, tube feeds started #Prophylaxis - Heparin Drip - Protonix #Disposition - Continue ICU monitoring, will reach out to [facility] to reintiate transfer Visit type - Emergency Visit Emergency Visit: Yes ED Registration Date: 04/30/19 Care time: The patient presented to the Emergency Department on the above date and was hospitalized for further evaluation of their emergent condition. - New Patient This patient is new to me today: No - Critical Care Critical Care patient: Yes Total Critical Care Time (in minutes): 36 Critical Care Statement: The care of this patient involved high complexity decision making to prevent further life threatening deterioration of the patient 's condition and/or to evaluate & treat vital organ system(s) failure or risk of failure. ATTENDING PHYSICIAN STATEMENT I saw and evaluated the patient. I reviewed the resident's note and discussed the case with the resident. I agree with the resident's findings and plan as documented. SUBJECTIVE: OBJECTIVE: ASSESSMENT AND PLAN:
[2019-05-14] MEDS: THIAMINE HCL 200 MG/2 ML VIAL IVPB SCH (09:46)
[2019-05-14] MEDS: DIGOXIN 0.5 MG/2 ML AMPUL IVPUSH SCH (09:47)
[2019-05-14] MEDS: PANTOPRAZOLE SODIUM 40 MG VIAL IVPUSH SCH (09:48)
--- NOTE | 2019-05-14 09:48 | PN ---
Teaching Attending Note Name of Resident: Malachi Oliva ATTENDING PHYSICIAN STATEMENT I saw and evaluated the patient. I reviewed the resident's note and discussed the case with the resident. I agree with the resident's findings and plan as documented. Seen and examined; please see resident note for further historical information. I personally verified all valadez historical information and exam findings. Personally interpreted all imaging and diagnostics and reviewed appropriate consults. I reviewed all labs and vital signs as per resident note and EMR as documented. I agree with the above assessment and plan unless supplemented by myself in the following. Failed extubation, continue to monitor in the ICU. 10 item review of systems completed and is negative aside from as discussed in the subjective data in my own/the resident documentation. VS, labs, imaging reviewed VS, labs, imaging reviewed Intubated and sedated on ventillator resting in bed, vent settings per flowsheet ET Tube in place; IV access noted with no apparent surrounding cellulitis RRR s1/2 no mgr Normal muscle tone, moves all 5 extremities with normal apparent strength Neck is supple, trachea midline, no fernanda LN Lungs CTAB with sym expansion NT ND +BS no fernanda organomegaly CN2-12 wnl; no FND but limited given clinical circumstances. NC AT EOMI PERRLA Not agitated, cannot complete full psych assessment No skin breakdown or rashes noted ASSESSMENT AND PLAN: Patient is a 53-year-old male with a PMH significant for heart failure with preserved ejection fraction, obstructive sleep apnea, morbid obesity, noncompliance with CPAP or medical therapy, atrial flutter. He presented with ARDS. He had a blown pupil this AM which was not related to brain bleed; evaluating causation. Febrile so blood cultures were reordered due to the temperature elevation. Persistent azotemia noted to 153. Patient has been reintubated and will continue on hemodynamic and ventilatory support in the intensive care unit under the ICU guidance. Role of hospital medicine is limited in the overall treatment. Antibiotic coverage has been broadened by infectious disease to meropenem alongside a stat dose of vancomycin. Problems include: ARDS; vent management per pulmonary services. On steroids and bronchodilators as per the recommendations. RYNE on CKD Lactic acidosis resolved Gram-positive bacteremia Hyperkalemia, improved Hypernatremia, on half-normal saline History of diabetes mellitus, keep glucose less than 180 in the ICU Septic shock, off pressors Anemia, continue to trend. Transfusion parameters per guidelines. Pneumonia versus pneumonitis is a component of inciting the ARDS, less likely cardiogenic shock. Atrial flutter, on heparin drip, was on home Agnes, on digoxin and Lopressor. Has been requiring Cardizem for rate control. Was briefly on amiodarone. History of hypertension History of hyperlipidemia Morbid obesity, BMI greater than 40 Full Code
[2019-05-14] MEDS: methylPREDNISolone NA SUCC 40 MG/1 ML VIAL IVPUSH SCH (09:49)
[2019-05-14 10:01] LABS: ANISOCYTOSIS 1+; MACROCYTOSIS 0; PLATELET ESTIMATE NORMAL
[2019-05-14] MEDS ORDERED: HEPARIN NA (PORCINE) 5,000 UNITS/ML 1ML VIAL IVPUSH PRN ×4 (11:48→15:27)
[2019-05-14] MEDS ORDERED: HEPARIN INFUSION - 25,000 UNITS/500 ML INFUS.BAG IVPB SCH (12:00)
--- NOTE | 2019-05-14 12:21 | PN ---
Teaching Attending Note Name of Resident: Sravanthi Foreman ATTENDING PHYSICIAN STATEMENT I saw and evaluated the patient. I reviewed the resident's note and discussed the case with the resident. I agree with the resident's findings and plan as documented. SUBJECTIVE: Pt seen and examined in the ICU. Remains intubated, arousable off sedation but not following commands. On levophed gtt. Heart rates better controlled. OBJECTIVE: Vital Signs Period Temp Pulse Resp BP Sys/[place] Pulse Ox Last 24 Hr 98.5 F-100.6 F 84-129 32-38 67-136/45-77 96-100 Intake & Output 05/11/19 05/12/19 05/13/19 05/14/19 23:59 23:59 23:59 23:59 Intake Total 917.4 1071 1120 1325 Output Total 2500 1500 1450 1000 Balance -1582.6 -429 -330 325 Weight 120.157 kg 119.204 kg 115.439 kg 118.75 kg Gen: intubated, sedated Heart: RRR Lung: scattered rhonchi Abd: soft, nontender Ext: + edema CBC, BMP 05/14/19 06:05 05/14/19 06:05 Active Medications Chlorhexidine Gluconate (Hibiclens For Decolonization -) 1 applic TP HS [facility] Last Admin: 05/13/19 21:39 Dose: 1 applic Digoxin (Lanoxin Injection -) 0.125 mg IVPUSH DAILY [facility] Last Admin: 05/14/19 09:47 Dose: 0.125 mg Diltiazem HCl (Cardizem Injection -) 10 mg IVPUSH Q4H PRN PRN Reason: TACHYCARDIA Last Admin: 05/10/19 08:30 Dose: 10 mg Ferrous Sulfate (Feosol) 300 mg NGT BID [facility] Last Admin: 05/13/19 21:39 Dose: 300 mg Heparin Sodium (Porcine) (Heparin -) 1,000 unit IVPUSH PRN PRN PRN Reason: Heparin Heparin Sodium (Porcine) (Heparin -) 5,000 unit IVPUSH PRN PRN PRN Reason: Heparin Diltiazem HCl 125 mg/ Dextrose 125 mls @ 10 mls/hr IVPB TITR [facility]; Protocol Last Admin: 05/13/19 14:00 Dose: 10 mg/hr, 10 mls/hr Propofol (Diprivan -) 1,000,000 mcg in 100 mls @ 3.463 mls/hr IVPB TITR [facility]; Protocol Last Titration: 05/14/19 10:16 Dose: 0 mcg/kg/min, 0 mls/hr Sodium Chloride (1/2 Normal Saline) 1,000 mls @ 75 mls/hr IV ASDIR [facility]IS[facility] Last Admin: 05/13/19 14:54 Dose: 75 mls/hr Meropenem 500 mg/ Dextrose 100 mls @ 200 mls/hr IVPB Q12H [facility] Last Admin: 05/14/19 05:14 Dose: 200 mls/hr Norepinephrine Bitartrate 8, (000 mcg/ Sodium Chloride) 500 mls @ 15 mls/hr IV ASDIR ELISSA; Protocol Last Admin: 05/13/19 22:38 Dose: 15 mls/hr Dexmedetomidine HCl 200 mcg/ (Sodium Chloride) 50 mls @ 5.93 mls/hr IVPB TITR ELISSA Heparin Sodium/Dextrose (Heparin Infusion -) 25,000 units in 500 mls @ 20 mls/ hr IVPB TITR [facility]; Protocol Insulin Aspart (Novolog Vial Sliding Scale -) 1 vial SQ Q4H [facility]; Protocol Last Admin: 05/14/19 10:22 Dose: 8 units Insulin Detemir (Levemir Vial) 20 units SQ BID@0700,2200 [facility] Last Admin: 05/14/19 06:28 Dose: 20 units Ipratropium [place] (Atrovent 0.02% Nebulizer -) 1 amp NEB Q6H PRN PRN Reason: DYSPEPSIA Stop: 05/17/19 11:29 Last Admin: 05/12/19 22:00 Dose: 1 amp Methylprednisolone Sodium Succinate (Solu-Medrol -) 40 mg IVPUSH DAILY [facility] Metoprolol Tartrate (Lopressor Injection -) 5 mg IVPUSH Q4H PRN PRN Reason: TACHYCARDIA Last Admin: 05/10/19 08:43 Dose: 5 mg Metoprolol Tartrate (Lopressor Injection -) 10 mg IVPUSH Q6H-IV [facility] Last Admin: 05/14/19 10:21 Dose: Not Given Pantoprazole Sodium (Protonix Iv) 40 mg IVPUSH DAILY [facility] Last Admin: 05/14/19 09:48 Dose: 40 mg Thiamine HCl (Vitamin B1 Injection -) 200 mg IVPB DAILY [facility] Last Admin: 05/14/19 09:46 Dose: 200 mg ASSESSMENT AND PLAN: Acute Hypoxic and Hypercapneic Respiratory Failure Pneumonia Gram Positive Bacteremia Septic Shock Volume Overload r/o ARDS Lactic Acidosis Hyperkalemia Acute Kidney Injury Atrial Flutter with RVR HTN DM Anemia - continue antibiotics - holding lasix - increase free water replacement - monitor urine output, creatinine - monitor lytes - taper off empiric medrol - inhaled bronchodilators - rate control - continue anticoagulation - taper fiO2 to keep SpO2 >90% - DVT/GI prophylaxis - continue ICU monitoring - family requesting transfer to [facility] critical care time spent in reviewing chart, evaluating patient and formulating plan 35 min
[2019-05-14] MEDS: DILTIAZEM INJECTION 125 MG in DEXTROSE 5%-WATER - 100 ML IVPB SCH (12:40)
[2019-05-14] MEDS: DEXMEDETOMIDINE HCL 200 MCG in SODIUM CHLORIDE 48 ML IVPB SCH ×3 (12:41→22:14)
--- NOTE | 2019-05-14 13:33 | PN ---
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, Physician History of Present Illness: Pt seen and examined at bedside. He remains in the ICU. He remains intubated. - Current Medication List Current Medications: Active Medications Chlorhexidine Gluconate (Hibiclens For Decolonization -) 1 applic TP HS [facility] Last Admin: 05/13/19 21:39 Dose: 1 applic Digoxin (Lanoxin Injection -) 0.125 mg IVPUSH DAILY [facility] Last Admin: 05/14/19 09:47 Dose: 0.125 mg Diltiazem HCl (Cardizem Injection -) 10 mg IVPUSH Q4H PRN PRN Reason: TACHYCARDIA Last Admin: 05/10/19 08:30 Dose: 10 mg Ferrous Sulfate (Feosol) 300 mg NGT BID [facility] Last Admin: 05/13/19 21:39 Dose: 300 mg Heparin Sodium (Porcine) (Heparin -) 1,000 unit IVPUSH PRN PRN PRN Reason: Heparin Heparin Sodium (Porcine) (Heparin -) 5,000 unit IVPUSH PRN PRN PRN Reason: Heparin Diltiazem HCl 125 mg/ Dextrose 125 mls @ 10 mls/hr IVPB TITR [facility]; Protocol Last Admin: 05/14/19 12:40 Dose: 10 mg/hr, 10 mls/hr Propofol (Diprivan -) 1,000,000 mcg in 100 mls @ 3.463 mls/hr IVPB TITR [facility]; Protocol Last Titration: 05/14/19 10:16 Dose: 0 mcg/kg/min, 0 mls/hr Sodium Chloride (1/2 Normal Saline) 1,000 mls @ 75 mls/hr IV ASDIR ELISSA Last Admin: 05/13/19 14:54 Dose: 75 mls/hr Meropenem 500 mg/ Dextrose 100 mls @ 200 mls/hr IVPB Q12H [facility] Last Admin: 05/14/19 05:14 Dose: 200 mls/hr Norepinephrine Bitartrate 8, (000 mcg/ Sodium Chloride) 500 mls @ 15 mls/hr IV ASDIR [facility]; Protocol Last Admin: 05/13/19 22:38 Dose: 15 mls/hr Dexmedetomidine HCl 200 mcg/ (Sodium Chloride) 50 mls @ 5.93 mls/hr IVPB TITR [facility] Last Admin: 05/14/19 12:41 Dose: Not Given Heparin Sodium/Dextrose (Heparin Infusion -) 25,000 units in 500 mls @ 20 mls/ hr IVPB TITR [facility]; Protocol Insulin Aspart (Novolog Vial Sliding Scale -) 1 vial SQ Q4H [facility]; Protocol Last Admin: 05/14/19 12:43 Dose: 6 units Insulin Detemir (Levemir Vial) 20 units SQ BID@0700,2200 [facility] Last Admin: 05/14/19 06:28 Dose: 20 units Ipratropium [place] (Atrovent 0.02% Nebulizer -) 1 amp NEB Q6H PRN PRN Reason: DYSPEPSIA Stop: 05/17/19 11:29 Last Admin: 05/12/19 22:00 Dose: 1 amp Methylprednisolone Sodium Succinate (Solu-Medrol -) 40 mg IVPUSH DAILY [facility] Metoprolol Tartrate (Lopressor Injection -) 5 mg IVPUSH Q4H PRN PRN Reason: TACHYCARDIA Last Admin: 05/10/19 08:43 Dose: 5 mg Metoprolol Tartrate (Lopressor Injection -) 10 mg IVPUSH Q6H-IV [facility] Last Admin: 05/14/19 10:21 Dose: Not Given Pantoprazole Sodium (Protonix Iv) 40 mg IVPUSH DAILY [facility] Last Admin: 05/14/19 09:48 Dose: 40 mg Thiamine HCl (Vitamin B1 Injection -) 200 mg IVPB DAILY [facility] Last Admin: 05/14/19 09:46 Dose: 200 mg - Objective Vital Signs: Vital Signs Temperature 100.1 F H 05/14/19 10:00 Pulse Rate 114 H 05/14/19 12:00 Respiratory Rate 39 H 05/14/19 13:03 Blood Pressure 153/91 05/14/19 12:00 O2 Sat by Pulse Oximetry (%) 96 05/14/19 09:10 Constitutional: Yes: Calm Eyes: Yes: Conjunctiva Clear Cardiovascular: Yes: S1, S2 Respiratory: Yes: Mechanically Ventilated Gastrointestinal: Yes: Soft, Abdomen, Obese Genitourinary: Yes: Andrews Present Musculoskeletal: Yes: Muscle Weakness Edema: Yes Edema: LLE: Trace, RLE: Trace Integumentary: Yes: Venous Stasis Changes Neurological: Yes: Lethargy Labs: CBC, BMP 05/14/19 06:05 05/14/19 06:05 INR, PTT INR 1.09 (0.83-1.09) 05/05/19 05:30 - ....Imaging Chest X-ray: Report Reviewed Problem List - Problems (1) Acute decompensated heart failure Code(s): I50.9 - HEART FAILURE, UNSPECIFIED (2) Atrial fibrillation and flutter Code(s): I48.91 - UNSPECIFIED ATRIAL FIBRILLATION; I48.92 - UNSPECIFIED ATRIAL FLUTTER (3) Hyperkalemia Code(s): E87.5 - HYPERKALEMIA (4) Pneumonia Code(s): J18.9 - PNEUMONIA, UNSPECIFIED ORGANISM Qualifiers: Pneumonia type: due to unspecified organism (5) Sarcoidosis of other sites Code(s): D86.89 - SARCOIDOSIS OF OTHER SITES Assessment/Plan Current Medications Generic Name Dose Route Start Last Admin Trade Name Freq PRN Reason Stop Dose Admin Chlorhexidine Gluconate 1 applic 04/30/19 22:00 05/13/19 21:39 Hibiclens For Decolonization - TP 1 applic HS ELISSA Administration Digoxin 0.125 mg 05/12/19 11:45 05/14/19 09:47 Lanoxin Injection - IVPUSH 0.125 mg DAILY [facility] Administration Diltiazem HCl 10 mg 05/10/19 05:04 05/10/19 08:30 Cardizem Injection - IVPUSH 10 mg Q4H PRN Administration TACHYCARDIA Ferrous Sulfate 300 mg 05/09/19 10:00 05/13/19 21:39 Feosol NGT 300 mg BID ELIS[facility] Administration Heparin Sodium (Porcine) 1,000 unit 05/14/19 11:48 Heparin - IVPUSH PRN PRN Heparin Heparin Sodium (Porcine) 5,000 unit 05/14/19 11:48 Heparin - IVPUSH PRN PRN Heparin Diltiazem HCl 125 mg/ Dextrose 125 mls @ 10 mls/hr 05/12/19 11:46 05/14/19 12 :40 IVPB 10 mg/hr TITR ELISSA 10 mls/hr Administration Protocol 10 MG/HR Propofol 1,000,000 mcg in 100 mls @ 3.463 mls/hr 05/13/19 08:30 05/14/19 10: 16 Diprivan - IVPB 0 mcg/kg/min TITR ELISSA 0 mls/hr Titration Protocol 5 MCG/KG/MIN Sodium Chloride 1,000 mls @ 75 mls/hr 05/13/19 14:15 05/13/19 14:54 1/2 Normal Saline IV 75 mls/hr ASDIR ELISSA Administration Meropenem 500 mg/ Dextrose 100 mls @ 200 mls/hr 05/13/19 18:00 05/14/19 05:14 IVPB 200 mls/hr Q12H [facility]IS[facility] Administration Norepinephrine Bitartrate 8, 500 mls @ 15 mls/hr 05/13/19 22:17 05/13/19 22: 38 000 mcg/ Sodium Chloride IV 15 mls/hr ASDIR ELISSA Administration Protocol 4 MCG/MIN Dexmedetomidine HCl 200 mcg/ 50 mls @ 5.93 mls/hr 05/14/19 07:30 05/14/19 12: 41 Sodium Chloride IVPB Not Given TITR ELISSA 0.2 MCG/KG/HR Heparin Sodium/Dextrose 25,000 units in 500 mls @ 20 mls/hr 05/14/19 12:00 Heparin Infusion - IVPB TITR [facility]IS[facility] Protocol 1,000 UNITS/HR Insulin Aspart 1 vial 05/13/19 00:00 05/14/19 12:43 Novolog Vial Sliding Scale - SQ 6 units Q4H [facility] Administration Protocol Insulin Detemir 20 units 05/13/19 22:15 05/14/19 06:28 Levemir Vial SQ 20 units BID@0700,2200 [facility] Administration Ipratropium [place] 1 amp 05/10/19 11:29 05/12/19 22:00 Atrovent 0.02% Nebulizer - NEB 05/17/19 11:29 1 amp Q6H PRN Administration DYSPEPSIA Methylprednisolone Sodium Succinate 40 mg 05/15/19 10:00 Solu-Medrol - IVPUSH DAILY [facility] Metoprolol Tartrate 5 mg 04/30/19 08:57 05/10/19 08:43 Lopressor Injection - IVPUSH 5 mg Q4H PRN Administration TACHYCARDIA Metoprolol Tartrate 10 mg 05/10/19 21:00 05/14/19 10:21 Lopressor Injection - IVPUSH Not Given Q6H-IV [facility]SA Pantoprazole Sodium 40 mg 05/14/19 10:00 05/14/19 09:48 Protonix Iv IVPUSH 40 mg DAILY [facility] Administration Thiamine HCl 200 mg 05/13/19 10:00 05/14/19 09:46 Vitamin B1 Injection - IVPB 200 mg DAILY [facility] Administration Impression 1. RYNE 2. hyperkalemia 3. resp failure requiring intubation 4. resp acidosis 5. dm 6. hx htn 7. sleep apnea 8. obesity 9. hx non compliance 10. chf 11. sarcoid 12. volume overload 13. 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
--- NOTE | 2019-05-14 14:20 | PN ---
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, Physician History of Present Illness: Sedated and intubated on cardizem and levophed gtt. - Current Medication List Current Medications: Active Medications Chlorhexidine Gluconate (Hibiclens For Decolonization -) 1 applic TP HS [facility] Last Admin: 05/13/19 21:39 Dose: 1 applic Digoxin (Lanoxin Injection -) 0.125 mg IVPUSH DAILY [facility] Last Admin: 05/14/19 09:47 Dose: 0.125 mg Diltiazem HCl (Cardizem Injection -) 10 mg IVPUSH Q4H PRN PRN Reason: TACHYCARDIA Last Admin: 05/10/19 08:30 Dose: 10 mg Ferrous Sulfate (Feosol) 300 mg NGT BID [facility] Last Admin: 05/13/19 21:39 Dose: 300 mg Heparin Sodium (Porcine) (Heparin -) 1,000 unit IVPUSH PRN PRN PRN Reason: Heparin Heparin Sodium (Porcine) (Heparin -) 5,000 unit IVPUSH PRN PRN PRN Reason: Heparin Diltiazem HCl 125 mg/ Dextrose 125 mls @ 10 mls/hr IVPB TITR [facility]; Protocol Last Admin: 05/14/19 12:40 Dose: 10 mg/hr, 10 mls/hr Propofol (Diprivan -) 1,000,000 mcg in 100 mls @ 3.463 mls/hr IVPB TITR [facility]; Protocol Last Titration: 05/14/19 10:16 Dose: 0 mcg/kg/min, 0 mls/hr Sodium Chloride (1/2 Normal Saline) 1,000 mls @ 75 mls/hr IV ASDIR ELISSA Last Admin: 05/13/19 14:54 Dose: 75 mls/hr Meropenem 500 mg/ Dextrose 100 mls @ 200 mls/hr IVPB Q12H [facility] Last Admin: 05/14/19 05:14 Dose: 200 mls/hr Norepinephrine Bitartrate 8, (000 mcg/ Sodium Chloride) 500 mls @ 15 mls/hr IV ASDIR [facility]; Protocol Last Admin: 05/13/19 22:38 Dose: 15 mls/hr Dexmedetomidine HCl 200 mcg/ (Sodium Chloride) 50 mls @ 5.93 mls/hr IVPB TITR [facility] Last Admin: 05/14/19 12:41 Dose: Not Given Heparin Sodium/Dextrose (Heparin Infusion -) 25,000 units in 500 mls @ 20 mls/ hr IVPB TITR [facility]; Protocol Insulin Aspart (Novolog Vial Sliding Scale -) 1 vial SQ Q4H [facility]; Protocol Last Admin: 05/14/19 12:43 Dose: 6 units Insulin Detemir (Levemir Vial) 20 units SQ BID@0700,2200 [facility] Last Admin: 05/14/19 06:28 Dose: 20 units Ipratropium [place] (Atrovent 0.02% Nebulizer -) 1 amp NEB Q6H PRN PRN Reason: DYSPEPSIA Stop: 05/17/19 11:29 Last Admin: 05/12/19 22:00 Dose: 1 amp Methylprednisolone Sodium Succinate (Solu-Medrol -) 40 mg IVPUSH DAILY [facility] Metoprolol Tartrate (Lopressor Injection -) 5 mg IVPUSH Q4H PRN PRN Reason: TACHYCARDIA Last Admin: 05/10/19 08:43 Dose: 5 mg Metoprolol Tartrate (Lopressor -) 25 mg GT BID [facility] Pantoprazole Sodium (Protonix Iv) 40 mg IVPUSH DAILY [facility] Last Admin: 05/14/19 09:48 Dose: 40 mg Thiamine HCl (Vitamin B1 Injection -) 200 mg IVPB DAILY [facility] Last Admin: 05/14/19 09:46 Dose: 200 mg - Objective Vital Signs: Vital Signs Temperature 100.1 F H 05/14/19 10:00 Pulse Rate 114 H 05/14/19 12:00 Respiratory Rate 39 H 05/14/19 13:03 Blood Pressure 153/91 05/14/19 12:00 O2 Sat by Pulse Oximetry (%) 96 05/14/19 09:10 Constitutional: Yes: No Distress, Calm Neck: Yes: Supple Cardiovascular: Yes: Tachycardia, Pulse Irregular Respiratory: Yes: Intubated, Mechanically Ventilated Gastrointestinal: Yes: Normal Bowel Sounds, Soft Genitourinary: Yes: Andrews Present Edema: No Labs: CBC, BMP 05/14/19 06:05 05/14/19 06:05 INR, PTT INR 1.09 (0.83-1.09) 05/05/19 05:30 - ....Imaging Chest X-ray: Report Reviewed (stable) EKG: Report Reviewed (Tele: Rate-controlled afib) Problem List - Problems (1) Pneumonia Code(s): J18.9 - PNEUMONIA, UNSPECIFIED ORGANISM Qualifiers: Pneumonia type: due to unspecified organism (2) Acute hypercapnic respiratory failure due to obstructive sleep apnea Code(s): J96.02 - ACUTE RESPIRATORY FAILURE WITH HYPERCAPNIA; G47.33 - OBSTRUCTIVE SLEEP APNEA (ADULT) (PEDIATRIC) (3) Acute decompensated heart failure Code(s): I50.9 - HEART FAILURE, UNSPECIFIED (4) Acute renal failure Code(s): N17.9 - ACUTE KIDNEY FAILURE, UNSPECIFIED Qualifiers: Acute renal failure type: unspecified Qualified Code(s): N17.9 - Acute kidney failure, unspecified (5) Sarcoidosis of other sites Code(s): D86.89 - SARCOIDOSIS OF OTHER SITES (6) Type 2 diabetes mellitus Code(s): E11.9 - TYPE 2 DIABETES MELLITUS WITHOUT COMPLICATIONS Qualifiers: Diabetes mellitus alf insulin use: without batch maker use Diabetes mellitus complication detail: with chronic kidney disease Chronic kidney disease stage: stage 2 (mild) (7) Atrial fibrillation and flutter Code(s): I48.91 - UNSPECIFIED ATRIAL FIBRILLATION; I48.92 - UNSPECIFIED ATRIAL FLUTTER Assessment/Plan 05/01/2019 Normal LV and RV size and fxn, tr TR 03/14/2019 Normal LV size and fxn, no thrombus ADEEL, mild-mod dilated and HK RV, tr MR, mild-mod TR, tr TX, trace pericardial effusion 1. Acute hypoxic and hypercapneic respiratory failure currently on mechanical ventilation 2. Pneumonia, septic shock, Gram Positive Bacteremia and ARDS 3. Sarcoidosis confirmed by skin biopsy, r/o cardiac involvement 4. OSAS nonadherent to CPAP 5. Paroxysmal Aflutter/Afib with RVR 6. Acute on chronic diastolic heart failure 7. Acute on CKD with hyperkalemia resolving 8. Type 2 DM 9. Anemia PLAN: 1. Empiric antibiotic, IV steroid taper with GI protection, bronchodilator and enteral feeds 2. Wean Levopheg for MAP>65 mmHg 3. Vent wean per ABG, taper fiO2 to keep SpO2 >90%, wean Precedex as tolerated 4. Rate-control with IV and oral Lopressor, IV digoxin, Cardizem drip and unfractionated Heparin drip before starting oral regiment such as Eliquis 5 mg BID 5. Holding diuresis and repleting free H20 with monitor renal function and electrolytes 6. Resume lisinopril 10 mg QD once renal function and hyperkalemia stabilizes 7. Follow up with Dr. Genaro Davila (cardiology at [place]). Consider cardiac PET or MRI to exclude cardiac involvement in sarcoidosis as outpatient
[2019-05-14] MEDS ORDERED: PT OWN MED DRAWER 7, Y5N ONE ×5 (15:18→21:08)
[2019-05-14] MEDS ORDERED: HEPARIN SOD,PORK IN 0.45% NACL 25,000 UNITS/500 ML INFUS.BAG IVPB SCH (15:30)
[2019-05-14] MEDS: NOREPINEPHRINE BITARTRATE IV SCH (15:30)
[2019-05-14] MEDS: SODIUM CHLORIDE 0.45% IV SCH (15:30)
[2019-05-14] MEDS: HEPARIN SOD,PORK IN 0.45% NACL 25,000 UNITS/500 ML INFUS.BAG IVPB SCH (15:39)
[2019-05-14] MEDS: SODIUM CHLORIDE 0.45% 1,000 ML IV SCH (15:41)
[2019-05-14] MEDS ORDERED: NOREPINEPHRINE BITARTRATE IV SCH (15:44)
[2019-05-14] MEDS ORDERED: SODIUM CHLORIDE 0.45% IV SCH (15:44)
[2019-05-14] MEDS: FERROUS SO4 300 MG/5 ML ORAL SOLN UNIT DOSE CUPS NGT SCH ×2 (15:57→21:35)
--- NOTE | 2019-05-14 15:57 | PN ---
Physical Exam: SUBJECTIVE: Patient seen and examined. 100.6F fever overnight, now resolved. OBJECTIVE: Vital Signs Period Temp Pulse Resp BP Sys/[place] Pulse Ox Last 24 Hr 99.6 F-100.6 F 84-129 32-39 67-153/45-91 96-100 GENERAL: Intubated, sedated. Was altered prior to intubation. HEENT: ET tube in place. L pupil fixed & dilated, nonreactive to light. R pupil reactive. LUNGS: scattered rhonchi throughout HEART: Tachycardic, S1S2. no murmurs ABDOMEN: Soft NTND. +BS. EXTREMITIES: 2+ pulses intact b/l. 1+ LE edema. NEURO: (prior to sedation) 0/5 motor of b/l UE/LE. SKIN: Warm, dry Laboratory Results - last 24 hr 05/13/19 05/13/19 05/13/19 17:25 20:33 21:58 WBC RBC Hgb Hct MCV MCH MCHC RDW Plt Count MPV Absolute Neuts (auto) Neutrophils % Neutrophils % (Manual) Band Neutrophils % Lymphocytes % Lymphocytes % (Manual) Monocytes % Monocytes % (Manual) Eosinophils % Eosinophils % (Manual) Basophils % Basophils % (Manual) Myelocytes % (Man) Promyelocytes % (Man) Blast Cells % (Manual) Nucleated RBC % Metamyelocytes Hypochromia Platelet Estimate Polychromasia Poikilocytosis Anisocytosis Microcytosis Macrocytosis PTT (Actin FS) Anticoagulation Therapy No Result Required. Puncture Site Right radial ABG pH 7.44 ABG pCO2 at Pt Temp 47.2 H ABG pO2 at Pt Temp 89.5 ABG HCO3 31.6 H ABG O2 Sat (Measured) 96.3 ABG O2 Content 17.2 ABG Base Excess 6.8 H Adrian Test Positive O2 Delivery Device No Result Required. Oxygen Flow Rate 80% Vent Mode No Result Required. Vent Rate 35 Mechanical Rate Vent PEEP 5.0 Pressure Support Vent 350 Sodium Potassium Chloride Carbon Dioxide Anion Gap BUN Creatinine Est GFR (CKD-EPI)AfAm Est GFR (CKD-EPI)NonAf POC Glucometer 407 405 Random Glucose Calcium Phosphorus Magnesium Total Bilirubin AST ALT Alkaline Phosphatase Total Protein Albumin 05/13/19 05/13/19 05/14/19 22:15 22:15 00:13 WBC RBC Hgb Hct MCV MCH MCHC RDW Plt Count MPV Absolute Neuts (auto) Neutrophils % Neutrophils % (Manual) Band Neutrophils % Lymphocytes % Lymphocytes % (Manual) Monocytes % Monocytes % (Manual) Eosinophils % Eosinophils % (Manual) Basophils % Basophils % (Manual) Myelocytes % (Man) Promyelocytes % (Man) Blast Cells % (Manual) Nucleated RBC % Metamyelocytes Hypochromia Platelet Estimate Polychromasia Poikilocytosis Anisocytosis Microcytosis Macrocytosis PTT (Actin FS) 33.2 Anticoagulation Therapy Puncture Site ABG pH ABG pCO2 at Pt Temp ABG pO2 at Pt Temp ABG HCO3 ABG O2 Sat (Measured) ABG O2 Content ABG Base Excess Adrian Test O2 Delivery Device Oxygen Flow Rate Vent Mode Vent Rate Mechanical Rate PEEP Pressure Support Vent Sodium 150 H Potassium 4.3 Chloride 112 H Carbon Dioxide 31 Anion Gap 6 L BUN 101.5 H Creatinine 2.5 H Est GFR (CKD-EPI)AfAm 33.21 Est GFR (CKD-EPI)NonAf 28.65 POC Glucometer 375 Random Glucose 448 H* Calcium 9.2 Phosphorus Magnesium Total Bilirubin AST ALT Alkaline Phosphatase Total Protein Albumin 05/14/19 05/14/19 05/14/19 04:05 06:05 06:05 WBC 10.7 H RBC 4.86 Hgb 11.9 Hct 39.2 MCV 80.7 MCH 24.5 L MCHC 30.4 L RDW 19.2 H Plt Count 239 MPV 10.4 Absolute Neuts (auto) 10.0 H Neutrophils % 93.6 H Neutrophils % (Manual) 92.0 H Band Neutrophils % 0.0 Lymphocytes % 2.0 L D Lymphocytes % (Manual) 2.0 L Monocytes % 3.9 Monocytes % (Manual) 6 D Eosinophils % 0.0 Eosinophils % (Manual) 0.0 Basophils % 0.5 D Basophils % (Manual) 0.0 Myelocytes % (Man) 0 Promyelocytes % (Man) 0 Blast Cells % (Manual) 0 Nucleated RBC % 0 Metamyelocytes 0 Hypochromia 1+ Platelet Estimate Normal Polychromasia 0 Poikilocytosis 0 Anisocytosis 1+ Microcytosis 1+ Macrocytosis 0 PTT (Actin FS) Anticoagulation Therapy Puncture Site ABG pH ABG pCO2 at Pt Temp ABG pO2 at Pt Temp ABG HCO3 ABG O2 Sat (Measured) ABG O2 Content ABG Base Excess Adrian Test O2 Delivery Device Oxygen Flow Rate Vent Mode Vent Rate Mechanical Rate PEEP Pressure Support Vent Sodium 150 H Potassium 3.9 Chloride 113 H Carbon Dioxide 30 Anion Gap 7 L BUN 100.8 H Creatinine 2.2 H Est GFR (CKD-EPI)AfAm 38.76 Est GFR (CKD-EPI)NonAf 33.44 POC Glucometer 309 Random Glucose 329 H Calcium 9.3 Phosphorus 2.5 Magnesium 2.3 Total Bilirubin 0.8 AST 88 H ALT 225 H Alkaline Phosphatase 84 Total Protein 6.0 L Albumin 2.6 L 05/14/19 05/14/19 05/14/19 06:05 10:10 12:38 WBC RBC Hgb Hct MCV MCH MCHC RDW Plt Count MPV Absolute Neuts (auto) Neutrophils % Neutrophils % (Manual) Band Neutrophils % Lymphocytes % Lymphocytes % (Manual) Monocytes % Monocytes % (Manual) Eosinophils % Eosinophils % (Manual) Basophils % Basophils % (Manual) Myelocytes % (Man) Promyelocytes % (Man) Blast Cells % (Manual) Nucleated RBC % Metamyelocytes Hypochromia Platelet Estimate Polychromasia Poikilocytosis Anisocytosis Microcytosis Macrocytosis PTT (Actin FS) 64.8 H Anticoagulation Therapy Puncture Site ABG pH ABG pCO2 at Pt Temp ABG pO2 at Pt Temp ABG HCO3 ABG O2 Sat (Measured) ABG O2 Content ABG Base Excess Adrian Test O2 Delivery Device Oxygen Flow Rate Vent Mode Vent Rate Mechanical Rate PEEP Pressure Support Vent Sodium Potassium Chloride Carbon Dioxide Anion Gap BUN Creatinine Est GFR (CKD-EPI)AfAm Est GFR (CKD-EPI)NonAf POC Glucometer 293 292 Random Glucose Calcium Phosphorus Magnesium Total Bilirubin AST ALT Alkaline Phosphatase Total Protein Albumin Active Medications Current Medications Chlorhexidine Gluconate (Hibiclens For Decolonization -) 1 applic TP HS [facility] Last Admin: 05/13/19 21:39 Dose: 1 applic Digoxin (Lanoxin Injection -) 0.125 mg IVPUSH DAILY [facility] Last Admin: 05/14/19 09:47 Dose: 0.125 mg Diltiazem HCl (Cardizem Injection -) 10 mg IVPUSH Q4H PRN PRN Reason: TACHYCARDIA Last Admin: 05/10/19 08:30 Dose: 10 mg Ferrous Sulfate (Feosol) 300 mg NGT BID [facility] Last Admin: 05/13/19 21:39 Dose: 300 mg Heparin Sodium (Porcine) (Heparin -) 1,000 unit IVPUSH PRN PRN PRN Reason: Heparin Heparin Sodium (Porcine) (Heparin -) 5,000 unit IVPUSH PRN PRN PRN Reason: Heparin Diltiazem HCl 125 mg/ Dextrose 125 mls @ 10 mls/hr IVPB TITR [facility]; Protocol Last Admin: 05/14/19 12:40 Dose: 10 mg/hr, 10 mls/hr Propofol (Diprivan -) 1,000,000 mcg in 100 mls @ 3.463 mls/hr IVPB TITR [facility]; Protocol Last Titration: 05/14/19 10:16 Dose: 0 mcg/kg/min, 0 mls/hr Sodium Chloride (1/2 Normal Saline) 1,000 mls @ 75 mls/hr IV ASDIR ELISSA Last Admin: 05/13/19 14:54 Dose: 75 mls/hr Meropenem 500 mg/ Dextrose 100 mls @ 200 mls/hr IVPB Q12H [facility] Last Admin: 05/14/19 05:14 Dose: 200 mls/hr Norepinephrine Bitartrate 8, (000 mcg/ Sodium Chloride) 500 mls @ 15 mls/hr IV ASDIR ELISSA; Protocol Last Admin: 05/13/19 22:38 Dose: 15 mls/hr Dexmedetomidine HCl 200 mcg/ (Sodium Chloride) 50 mls @ 5.93 mls/hr IVPB TITR [facility] Last Admin: 05/14/19 12:41 Dose: Not Given HEPARIN SOD,PORK IN 0.45% NACL (Heparin-1/2ns 25,000 Units/500) 25,000 units in 500 mls @ 20 mls/hr IVPB TITR [facility]; Protocol Last Admin: 05/14/19 15:39 Dose: 1,150 units/hr, 23 mls/hr Insulin Aspart (Novolog Vial Sliding Scale -) 1 vial SQ Q4H [facility]; Protocol Last Admin: 05/14/19 12:43 Dose: 6 units Insulin Detemir (Levemir Vial) 20 units SQ BID@0700,2200 [facility] Last Admin: 05/14/19 06:28 Dose: 20 units Ipratropium [place] (Atrovent 0.02% Nebulizer -) 1 amp NEB Q6H PRN PRN Reason: DYSPEPSIA Stop: 05/17/19 11:29 Last Admin: 05/12/19 22:00 Dose: 1 amp Methylprednisolone Sodium Succinate (Solu-Medrol -) 40 mg IVPUSH DAILY [facility] Metoprolol Tartrate (Lopressor Injection -) 5 mg IVPUSH Q4H PRN PRN Reason: TACHYCARDIA Last Admin: 05/10/19 08:43 Dose: 5 mg Metoprolol Tartrate (Lopressor -) 25 mg GT BID [facility] Pantoprazole Sodium (Protonix Iv) 40 mg IVPUSH DAILY [facility] Last Admin: 05/14/19 09:48 Dose: 40 mg Thiamine HCl (Vitamin B1 Injection -) 200 mg IVPB DAILY [facility] Last Admin: 05/14/19 09:46 Dose: 200 mg ASSESSMENT/PLAN: 53 y.o. M PMH DM2, HFpEF(last EF: 45-50%), EMMY (non-adherent to CPAP) and atrial flutter w/ acute hypoxic hypercapneic resp failure & subsequently ARDS #[employer] -intubated, sedated w/ propofol -CT head shows no acute hemorrhage or infarct. no edema/ midline shift/ mass effect/ fracture. 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 No evidence of myopathy. Cannto rule out myopathic process. -frequent neuro checks #CV -on 1 pressor, levo 3; maintain MAP >65 -Hx of A-flutter, heparin drip resumed. digoxin IV 0.125mg daily, lopressor transitioned to PO via NGT, 25mg BID & prn lopressor -Hx of HFpEF- holding lasix -tachycardic, continue with cardizem drip for rate control -Resume Lisinopril 10 mg QD once renal function and hyperkalemia stabilizes -Cardiology following #Pulm -Acute Hypoxic and Hypercapneic Respiratory Failure, presenting with ARDS -now intubated, vent settings 350/30/40%/10 -continue Solumedrol 40mg IV daily -atrovent nebs prn #Renal -renal function improving cr 2.2, trend renal labs -persistent hypernatremia, started 1/2 NS ; heparin gtt mixed w/ hypotonic saline -free water replacement w/ tube feeds -Nephrology following #GI -Protonix 40 mg IV daily -tube feeds #ID -s/p zosyn, 1 dose vanc -now on meropenem -repeat cultures sent yesterday for fever 100.6F, f/u -ID following #Endo -Hx of DM -BGMs ACHS -ISS -added levemir 20mg BID #FENLTD -04/10 NS @75cc/hr -trend lytes replete prn -glucerna -R IJ placed 05/13/2019 -ortiz in place Dispo Continue ICU level of care family expressing wishes for further care @ [facility] Visit type - Emergency Visit Emergency Visit: Yes ED Registration Date: 04/30/19 Care time: The patient presented to the Emergency Department on the above date and was hospitalized for further evaluation of their emergent condition. - New Patient This patient is new to me today: Yes Date on this admission: 06/13/19 - Critical Care Critical Care patient: No ATTENDING PHYSICIAN STATEMENT I saw and evaluated the patient. I reviewed the resident's note and discussed the case with the resident. I agree with the resident's findings and plan as documented. SUBJECTIVE: OBJECTIVE: ASSESSMENT AND PLAN:
[2019-05-14] MEDS ORDERED: DOCUSATE NA 100 MG/10 ML UNIT-DOSE CUPS PO PRN (16:01)
--- NOTE | 2019-05-14 19:51 | PN ---
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, Physician History of Present Illness: RE-INTUBATED LOW GRADE NOTED NO ACUTE DISTRESS WBC SL ELEVATED REPEAT BC PRELIM NO GROWTH + AZOTEMIA - Current Medication List Current Medications: Active Medications Chlorhexidine Gluconate (Hibiclens For Decolonization -) 1 applic TP HS [facility] Last Admin: 05/13/19 21:39 Dose: 1 applic Digoxin (Lanoxin Injection -) 0.125 mg IVPUSH DAILY [facility] Last Admin: 05/14/19 09:47 Dose: 0.125 mg Diltiazem HCl (Cardizem Injection -) 10 mg IVPUSH Q4H PRN PRN Reason: TACHYCARDIA Last Admin: 05/10/19 08:30 Dose: 10 mg Docusate Sodium (Colace Liquid -) 100 mg PO DAILY PRN PRN Reason: CONSTIPATION Last Admin: 05/14/19 17:36 Dose: 100 mg Ferrous Sulfate (Feosol) 300 mg NGT BID [facility] Last Admin: 05/14/19 15:57 Dose: 300 mg Heparin Sodium (Porcine) (Heparin -) 1,000 unit IVPUSH PRN PRN PRN Reason: Heparin Heparin Sodium (Porcine) (Heparin -) 5,000 unit IVPUSH PRN PRN PRN Reason: Heparin Diltiazem HCl 125 mg/ Dextrose 125 mls @ 10 mls/hr IVPB TITR [facility]; Protocol Last Admin: 05/14/19 12:40 Dose: 10 mg/hr, 10 mls/hr Propofol (Diprivan -) 1,000,000 mcg in 100 mls @ 3.463 mls/hr IVPB TITR [facility]; Protocol Last Titration: 05/14/19 10:16 Dose: 0 mcg/kg/min, 0 mls/hr Sodium Chloride (1/2 Normal Saline) 1,000 mls @ 75 mls/hr IV ASDIR ELISSA Last Admin: 05/14/19 15:41 Dose: 75 mls/hr Meropenem 500 mg/ Dextrose 100 mls @ 200 mls/hr IVPB Q12H [facility] Last Admin: 05/14/19 17:34 Dose: 200 mls/hr Dexmedetomidine HCl 200 mcg/ (Sodium Chloride) 50 mls @ 5.93 mls/hr IVPB TITR [facility] Last Admin: 05/14/19 17:11 Dose: 0.2 mcg/kg/hr, 5.93 mls/hr HEPARIN SOD,PORK IN 0.45% NACL (Heparin-1/2ns 25,000 Units/500) 25,000 units in 500 mls @ 20 mls/hr IVPB TITR [facility]; Protocol Last Admin: 05/14/19 15:39 Dose: 1,150 units/hr, 23 mls/hr Norepinephrine Bitartrate 8, (000 mcg/ Sodium Chloride) 500 mls @ 15 mls/hr IV TITR [facility]; Protocol Last Titration: 05/14/19 17:24 Dose: 2 mcg/min, 7.5 mls/hr Insulin Aspart (Novolog Vial Sliding Scale -) 1 vial SQ Q4H [facility]; Protocol Last Admin: 05/14/19 16:25 Dose: 6 units Insulin Detemir (Levemir Vial) 20 units SQ BID@0700,2200 [facility] Last Admin: 05/14/19 06:28 Dose: 20 units Ipratropium [place] (Atrovent 0.02% Nebulizer -) 1 amp NEB Q6H PRN PRN Reason: DYSPEPSIA Stop: 05/17/19 11:29 Last Admin: 05/12/19 22:00 Dose: 1 amp Methylprednisolone Sodium Succinate (Solu-Medrol -) 40 mg IVPUSH DAILY [facility] Metoprolol Tartrate (Lopressor Injection -) 5 mg IVPUSH Q4H PRN PRN Reason: TACHYCARDIA Last Admin: 05/10/19 08:43 Dose: 5 mg Metoprolol Tartrate (Lopressor -) 25 mg GT BID [facility] Pantoprazole Sodium (Protonix Iv) 40 mg IVPUSH DAILY [facility] Last Admin: 05/14/19 09:48 Dose: 40 mg Thiamine HCl (Vitamin B1 Injection -) 200 mg IVPB DAILY [facility] Last Admin: 05/14/19 09:46 Dose: 200 mg - Objective Vital Signs: Vital Signs Temperature 99.6 F 05/14/19 16:00 Pulse Rate 107 H 05/14/19 16:00 Respiratory Rate 38 H 05/14/19 17:23 Blood Pressure 130/83 05/14/19 17:24 O2 Sat by Pulse Oximetry (%) 96 05/14/19 09:10 Constitutional: Yes: No Distress, Obese Cardiovascular: Yes: Regular Rate and Rhythm, S1, S2 Respiratory: Yes: Mechanically Ventilated Gastrointestinal: Yes: Normal Bowel Sounds, Soft Labs: CBC, BMP 05/14/19 06:05 05/14/19 06:05 INR, PTT INR 1.09 (0.83-1.09) 05/05/19 05:30 Assessment/Plan RESP FAILURE S/P RE-INTUBATION CHF/ PNEUMONIA RENAL FAILURE CONTINUE VENTILATORY/ HEMODYNAMIC SUPPORT RECULTURED MEROPENEM + STAT DOSE VANCOMYCIN GIVEN
[2019-05-14] MEDS: CHLORHEXIDINE GLUCONATE 4% CLEANSER FOR DECOLONIZATION TP SCH (21:35)
[2019-05-14] MEDS: METOPROLOL TARTRATE 25 MG TABLET (FP) GT SCH (21:35)
[2019-05-15] MEDS: INSULIN SLIDING SCALE (NOVOLOG) 1 VIAL SQ SCH ×6 (01:37→22:38)
[2019-05-15] MEDS ORDERED: PT OWN MED DRAWER 7, Y5N ONE ×3 (03:17→18:24)
[2019-05-15] MEDS: DILTIAZEM INJECTION 125 MG in DEXTROSE 5%-WATER - 100 ML IVPB SCH ×2 (03:22→15:00)
[2019-05-15] MEDS: PROPOFOL 1,000,000 MCG/100 ML VIAL IVPB SCH ×2 (03:22→17:39)
[2019-05-15] MEDS ORDERED: DEXTROSE 5%-WATER 100 ML IVPB ONE ×2 (06:17→17:04)
[2019-05-15] MEDS ORDERED: MEROPENEM 500 MG VIAL (RESTRICTED TO ID) IVPB ONE ×2 (06:17→17:03)
[2019-05-15] MEDS: MEROPENEM 500 MG in DEXTROSE 5%-WATER 100 ML IVPB SCH ×2 (06:18→17:40)
[2019-05-15 06:38] LABS: HEMATOCRIT 36.7 % (35.4-49); HEMOGLOBIN 11.1 GM/dL (11.7-16.9); MCH 24.4 pg (25.7-33.7); MCHC 30.1 g/dl (32.0-35.9); MEAN CELL VOLUME 80.8 fl (80-96); MEAN PLT VOLUME 9.9 fl (7.5-11.1); PLATELET COUNT 184 K/MM3 (134-434); RBC 4.54 M/mm3 (4.00-5.60); RDW 19.5 % (11.9-15.9); WHITE BLOOD COUNT 6.3 K/mm3 (4.0-10.0)
[2019-05-15 08:44] LABS: ALBUMIN 2.4 g/dl (3.4-5.0); BILIRUBIN,TOTAL 0.6 mg/dL (0.2-1); BLOOD UREA NITROGEN 75.9 mg/dL (7-18); CALCIUM 9.4 mg/dL (8.5-10.1); CREATININE 1.5 mg/dL (0.55-1.3); MAGNESIUM 2.3 mg/dL (1.8-2.4); PHOSPHOROUS 3.2 mg/dL (2.5-4.9); POTASSIUM 4.3 mmol/L (3.5-5.1); TOT PROT 5.5 g/dl (6.4-8.2)
--- NOTE | 2019-05-15 08:44 | PN ---
Physical Exam: SUBJECTIVE: Patient seen and examined NAEON. Awake, alert, following all commands. Trialed on CPAP but required PSV of at least 12, so placed back on sedation and AC. OBJECTIVE: Vital Signs Period Temp Pulse Resp BP Sys/[place] Pulse Ox Last 24 Hr 98.9 F-100.2 F 82-114 26-42 102-153/65-91 96-100 GENERAL: The patient is awake, alert, in no acute distress. HEAD: Normal with no signs of trauma. EYES: PERRL, extraocular movements intact, sclera anicteric, conjunctiva clear. No ptosis. ENT: Ears normal, nares patent, oropharynx clear without exudates NECK: Trachea midline, full range of motion, supple LUNGS: Coarse lung sounds bilaterally HEART: Regular rate, a-flutter, S1, S2 without murmur, rub or gallop. ABDOMEN: Soft, nontender, nondistended, normoactive bowel sounds EXTREMITIES: 2+ pulses, warm, well-perfused, no edema NEUROLOGICAL: Moving all limbs spontaneously, PERRLA, obeying commans SKIN: Warm, dry Laboratory Results - last 24 hr 05/14/19 05/14/19 05/14/19 06:05 10:10 11:57 WBC RBC Hgb Hct MCV MCH MCHC RDW Plt Count MPV Neutrophils % (Manual) 92.0 H Band Neutrophils % 0.0 Lymphocytes % (Manual) 2.0 L Monocytes % (Manual) 6 D Eosinophils % (Manual) 0.0 Basophils % (Manual) 0.0 Myelocytes % (Man) 0 Promyelocytes % (Man) 0 Blast Cells % (Manual) 0 Nucleated RBC % 0 Metamyelocytes 0 Hypochromia 1+ Platelet Estimate Normal Polychromasia 0 Poikilocytosis 0 Anisocytosis 1+ Microcytosis 1+ Macrocytosis 0 PTT (Actin FS) POC Glucometer 293 Digoxin 0.84 05/14/19 05/14/19 05/14/19 12:38 16:20 20:46 WBC RBC Hgb Hct MCV MCH MCHC RDW Plt Count MPV Neutrophils % (Manual) Band Neutrophils % Lymphocytes % (Manual) Monocytes % (Manual) Eosinophils % (Manual) Basophils % (Manual) Myelocytes % (Man) Promyelocytes % (Man) Blast Cells % (Manual) Nucleated RBC % Metamyelocytes Hypochromia Platelet Estimate Polychromasia Poikilocytosis Anisocytosis Microcytosis Macrocytosis PTT (Actin FS) POC Glucometer 292 276 210 Digoxin 05/15/19 05/15/19 05/15/19 01:27 05:34 05:45 WBC 6.3 RBC 4.54 Hgb 11.1 L Hct 36.7 MCV 80.8 MCH 24.4 L MCHC 30.1 L RDW 19.5 H Plt Count 184 D MPV 9.9 Neutrophils % (Manual) Band Neutrophils % Lymphocytes % (Manual) Monocytes % (Manual) Eosinophils % (Manual) Basophils % (Manual) Myelocytes % (Man) Promyelocytes % (Man) Blast Cells % (Manual) Nucleated RBC % Metamyelocytes Hypochromia Platelet Estimate Polychromasia Poikilocytosis Anisocytosis Microcytosis Macrocytosis PTT (Actin FS) POC Glucometer 211 178 Digoxin 05/15/19 05:45 WBC RBC Hgb Hct MCV MCH MCHC RDW Plt Count MPV Neutrophils % (Manual) Band Neutrophils % Lymphocytes % (Manual) Monocytes % (Manual) Eosinophils % (Manual) Basophils % (Manual) Myelocytes % (Man) Promyelocytes % (Man) Blast Cells % (Manual) Nucleated RBC % Metamyelocytes Hypochromia Platelet Estimate Polychromasia Poikilocytosis Anisocytosis Microcytosis Macrocytosis PTT (Actin FS) 75.0 H POC Glucometer Digoxin Active Medications Generic Name Dose Route Start Last Admin Trade Name Freq PRN Reason Stop Dose Admin Chlorhexidine Gluconate 1 applic 04/30/19 22:00 05/14/19 21:35 Hibiclens For Decolonization - TP 1 applic HS ELISSA Administration Digoxin 0.125 mg 05/12/19 11:45 05/14/19 09:47 Lanoxin Injection - IVPUSH 0.125 mg DAILY ELISSA Administration Diltiazem HCl 10 mg 05/10/19 05:04 05/10/19 08:30 Cardizem Injection - IVPUSH 10 mg Q4H PRN Administration TACHYCARDIA Docusate Sodium 100 mg 05/14/19 16:01 05/14/19 17:36 Colace Liquid - PO 100 mg DAILY PRN Administration CONSTIPATION Ferrous Sulfate 300 mg 05/09/19 10:00 05/14/19 21:35 Feosol NGT 300 mg BID ELISSA Administration Heparin Sodium (Porcine) 1,000 unit 05/14/19 15:27 Heparin - IVPUSH PRN PRN Heparin Heparin Sodium (Porcine) 5,000 unit 05/14/19 15:27 Heparin - IVPUSH PRN PRN Heparin Diltiazem HCl 125 mg/ Dextrose 125 mls @ 10 mls/hr 05/12/19 11:46 05/15/19 03:22 IVPB 10 mg/hr TITR ELISSA 10 mls/hr Administration Protocol 10 MG/HR Propofol 1,000,000 mcg in 100 mls @ 3.463 mls/hr 05/13/19 08:30 05/15/19 03:22 Diprivan - IVPB 12 mcg/kg/min TITR ELISSA 8.312 mls/hr Administration Protocol 5 MCG/KG/MIN Sodium Chloride 1,000 mls @ 75 mls/hr 05/13/19 14:15 05/14/19 15:41 1/2 Normal Saline IV 75 mls/hr ASDIR ELISSA Administration Meropenem 500 mg/ Dextrose 100 mls @ 200 mls/hr 05/13/19 18:00 05/14/19 17:34 IVPB 200 mls/hr Q12H ELISSA Administration Dexmedetomidine HCl 200 mcg/ 50 mls @ 5.93 mls/hr 05/14/19 07:30 05/15/19 05:35 Sodium Chloride IVPB 0.4 mcg/kg/hr TITR ELISSA 11.87 mls/hr Infusion 0.2 MCG/KG/HR HEPARIN SOD,PORK IN 0.45% NACL 25,000 units in 500 mls @ 20 mls/hr 05/14/19 15:30 05/14/19 15:39 Heparin-1/2ns 25,000 Units/500 IVPB 1,150 units/hr TITR [facility]ISSA 23 mls/hr Administration Protocol 1,000 UNITS/HR Norepinephrine Bitartrate 8, 500 mls @ 15 mls/hr 05/14/19 16:45 05/15/19 05:36 000 mcg/ Sodium Chloride IV 0 mcg/min TITR ELISSA 0 mls/hr Titration Protocol 4 MCG/MIN Insulin Aspart 1 vial 05/13/19 00:00 05/15/19 05:35 Novolog Vial Sliding Scale - SQ 2 units Q4H ELISSA Administration Protocol Insulin Detemir 20 units 05/13/19 22:15 05/14/19 21:35 Levemir Vial SQ 20 units BID@0700,2200 [facility] Administration Ipratropium [place] 1 amp 05/10/19 11:29 05/12/19 22:00 Atrovent 0.02% Nebulizer - NEB 05/17/19 11:29 1 amp Q6H PRN Administration DYSPEPSIA Methylprednisolone Sodium Succinate 40 mg 05/15/19 10:00 Solu-Medrol - IVPUSH DAILY [facility] Metoprolol Tartrate 5 mg 04/30/19 08:57 05/10/19 08:43 Lopressor Injection - IVPUSH 5 mg Q4H PRN Administration TACHYCARDIA Metoprolol Tartrate 25 mg 05/14/19 22:00 05/14/19 21:35 Lopressor - GT 25 mg BID ELISSA Administration Pantoprazole Sodium 40 mg 05/14/19 10:00 05/14/19 09:48 Protonix Iv IVPUSH 40 mg DAILY [facility] Administration Thiamine HCl 200 mg 05/13/19 10:00 05/14/19 09:46 Vitamin B1 Injection - IVPB 200 mg DAILY [facility] Administration ASSESSMENT/PLAN: 53 yo M PMH DM2, HFpEF(last EF 45-50%), EMMY (non-adherent to CPAP) and atrial flutter, w/ acute hypoxic hypercapneic respiratory failure, found to have ARDS, s/p intubation. 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 no edema/ midline shift/ mass effect/ fracture. 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 No evidence of myopathy. Cannot rule out myopathic process. - frequent neuro checks CV - off pressors - Hx a-flutter, heparin drip resumed. Digoxin IV 0.125 mg daily, Lopressor 25mg BID transitioned to NGT, PRN lopressor - Hx HFpEF - holding Lasix - on diltiazem drip for rate control - planned to resume lisinopril 10 mg QD once renal function and hyperkalemia stabilizes - Cardiology following Respiratory: - acute hypoxic and hypercapneic respiratory failure, presenting with ARDS - intubated, vent settings 350/30/40%/10 - continue Solumedrol 40mg IV daily - Atrovent nebs PRN Renal: - renal function improving - Cr 1.5 from 2.2 - trend renal labs - persistent hypernatremia, started 04/10 NS; heparin gtt mixed w/ hypotonic saline - free water replacement w/ tube feeds - Nephrology following GI: - Protonix 40 mg IV daily - tube feeds ID: - s/p Zosyn, 1 dose vanc - fever of 100.6 on 05/13, repeat cultures sent - now on meropenem, started 05/13 - ID following (Dr. Garcia) Endo: - Hx of DM - BGMs ACHS - ISS - Levemir 20mg BID FENLTD: - 1/2 NS @75cc/hr - tube feeds now with 50 ccs free water from 20 ccs - trend lytes, replete PRN (Na 148 from 153) - Glucerna - RIJ placed 05/13/2019 - Andrews in place Dispo: - Continue ICU level of care - family expressing wishes for further care @ [facility] Visit type - Emergency Visit Emergency Visit: No - New Patient This patient is new to me today: No - Critical Care Critical Care patient: Yes Total Critical Care Time (in minutes): 45 Critical Care Statement: The care of this patient involved high complexity decision making to prevent further life threatening deterioration of the patient's condition and/or to evaluate & treat vital organ system(s) failure or risk of failure. ATTENDING PHYSICIAN STATEMENT I saw and evaluated the patient. I reviewed the resident's note and discussed the case with the resident. I agree with the resident's findings and plan as documented. SUBJECTIVE: OBJECTIVE: ASSESSMENT AND PLAN:
--- NOTE | 2019-05-15 10:20 | PN ---
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, Physician History of Present Illness: Awake off sedation and intubated on cardizem and heparin gtt, now off levophed gtt. - Current Medication List Current Medications: Active Medications Chlorhexidine Gluconate (Hibiclens For Decolonization -) 1 applic TP HS [facility] Last Admin: 05/14/19 21:35 Dose: 1 applic Digoxin (Lanoxin Injection -) 0.125 mg IVPUSH DAILY [facility] Last Admin: 05/14/19 09:47 Dose: 0.125 mg Diltiazem HCl (Cardizem Injection -) 10 mg IVPUSH Q4H PRN PRN Reason: TACHYCARDIA Last Admin: 05/10/19 08:30 Dose: 10 mg Docusate Sodium (Colace Liquid -) 100 mg PO DAILY PRN PRN Reason: CONSTIPATION Last Admin: 05/14/19 17:36 Dose: 100 mg Ferrous Sulfate (Feosol) 300 mg NGT BID [facility] Last Admin: 05/14/19 21:35 Dose: 300 mg Heparin Sodium (Porcine) (Heparin -) 1,000 unit IVPUSH PRN PRN PRN Reason: Heparin Heparin Sodium (Porcine) (Heparin -) 5,000 unit IVPUSH PRN PRN PRN Reason: Heparin Diltiazem HCl 125 mg/ Dextrose 125 mls @ 10 mls/hr IVPB TITR [facility]; Protocol Last Admin: 05/15/19 03:22 Dose: 10 mg/hr, 10 mls/hr Propofol (Diprivan -) 1,000,000 mcg in 100 mls @ 3.463 mls/hr IVPB TITR [facility]; Protocol Last Admin: 05/15/19 03:22 Dose: 12 mcg/kg/min, 8.312 mls/hr Sodium Chloride (1/2 Normal Saline) 1,000 mls @ 75 mls/hr IV ASDIR [facility] Last Admin: 05/14/19 15:41 Dose: 75 mls/hr Meropenem 500 mg/ Dextrose 100 mls @ 200 mls/hr IVPB Q12H [facility] Last Admin: 05/15/19 06:18 Dose: 200 mls/hr Dexmedetomidine HCl 200 mcg/ (Sodium Chloride) 50 mls @ 5.93 mls/hr IVPB TITR [facility] Last Infusion: 05/15/19 05:35 Dose: 0.4 mcg/kg/hr, 11.87 mls/hr HEPARIN SOD,PORK IN 0.45% NACL (Heparin-1/2ns 25,000 Units/500) 25,000 units in 500 mls @ 20 mls/hr IVPB TITR [facility]; Protocol Last Admin: 05/14/19 15:39 Dose: 1,150 units/hr, 23 mls/hr Norepinephrine Bitartrate 8, (000 mcg/ Sodium Chloride) 500 mls @ 15 mls/hr IV TITR [facility]; Protocol Last Titration: 05/15/19 05:36 Dose: 0 mcg/min, 0 mls/hr Insulin Aspart (Novolog Vial Sliding Scale -) 1 vial SQ Q4H [facility]; Protocol Last Admin: 05/15/19 08:42 Dose: 2 units Insulin Detemir (Levemir Vial) 20 units SQ BID@0700,2200 [facility] Last Admin: 05/14/19 21:35 Dose: 20 units Ipratropium [place] (Atrovent 0.02% Nebulizer -) 1 amp NEB Q6H PRN PRN Reason: DYSPEPSIA Stop: 05/17/19 11:29 Last Admin: 05/12/19 22:00 Dose: 1 amp Methylprednisolone Sodium Succinate (Solu-Medrol -) 40 mg IVPUSH DAILY [facility] Metoprolol Tartrate (Lopressor Injection -) 5 mg IVPUSH Q4H PRN PRN Reason: TACHYCARDIA Last Admin: 05/10/19 08:43 Dose: 5 mg Metoprolol Tartrate (Lopressor -) 25 mg GT BID [facility] Last Admin: 05/14/19 21:35 Dose: 25 mg Pantoprazole Sodium (Protonix Iv) 40 mg IVPUSH DAILY [facility] Last Admin: 05/14/19 09:48 Dose: 40 mg Thiamine HCl (Vitamin B1 Injection -) 200 mg IVPB DAILY [facility] Last Admin: 05/14/19 09:46 Dose: 200 mg - Objective Vital Signs: Vital Signs Temperature 99.8 F H 05/15/19 08:00 Pulse Rate 84 05/15/19 08:00 Respiratory Rate 31 H 05/15/19 09:40 Blood Pressure 114/75 05/15/19 08:00 O2 Sat by Pulse Oximetry (%) 100 05/15/19 09:40 Constitutional: Yes: No Distress, Calm Neck: Yes: Supple Cardiovascular: Yes: Pulse Irregular Respiratory: Yes: Intubated, Mechanically Ventilated, Rhonchi Gastrointestinal: Yes: Normal Bowel Sounds, Soft, Abdomen, Obese Genitourinary: Yes: Andrews Present Edema: No Labs: CBC, BMP 05/15/19 05:45 05/15/19 05:45 INR, PTT INR 1.09 (0.83-1.09) 05/05/19 05:30 - ....Imaging EKG: Report Reviewed (Tele: Aflutter rate-controlled) Problem List - Problems (1) Pneumonia Code(s): J18.9 - PNEUMONIA, UNSPECIFIED ORGANISM Qualifiers: Pneumonia type: due to unspecified organism (2) Acute hypercapnic respiratory failure due to obstructive sleep apnea Code(s): J96.02 - ACUTE RESPIRATORY FAILURE WITH HYPERCAPNIA; G47.33 - OBSTRUCTIVE SLEEP APNEA (ADULT) (PEDIATRIC) (3) Acute decompensated heart failure Code(s): I50.9 - HEART FAILURE, UNSPECIFIED (4) Acute renal failure Code(s): N17.9 - ACUTE KIDNEY FAILURE, UNSPECIFIED Qualifiers: Acute renal failure type: unspecified Qualified Code(s): N17.9 - Acute kidney failure, unspecified (5) Sarcoidosis of other sites Code(s): D86.89 - SARCOIDOSIS OF OTHER SITES (6) Type 2 diabetes mellitus Code(s): E11.9 - TYPE 2 DIABETES MELLITUS WITHOUT COMPLICATIONS Qualifiers: Diabetes mellitus long-term insulin use: without long-term use Diabetes mellitus complication detail: with chronic kidney disease Chronic kidney disease stage: stage 2 (mild) (7) Atrial fibrillation and flutter Code(s): I48.91 - UNSPECIFIED ATRIAL FIBRILLATION; I48.92 - UNSPECIFIED ATRIAL FLUTTER Assessment/Plan 05/01/2019 Normal LV and RV size and fxn, tr TR 03/14/2019 Normal LV size and fxn, no thrombus ADEEL, mild-mod dilated and HK RV, tr MR, mild-mod TR, tr CT, trace pericardial effusion 1. Acute hypoxic and hypercapneic respiratory failure currently on mechanical ventilation 2. Pneumonia, septic shock, Gram Positive Bacteremia and ARDS 3. Sarcoidosis confirmed by skin biopsy, r/o cardiac involvement 4. OSAS nonadherent to CPAP 5. Paroxysmal Aflutter/Afib with RVR 6. Acute on chronic diastolic heart failure 7. Acute on CKD with hyperkalemia resolving 8. Type 2 DM 9. Anemia PLAN: 1. Empiric antibiotic, IV steroid taper with GI protection, bronchodilator and enteral feeds 2. Weaned off Levophed for MAP>65 mmHg 3. Vent wean per ABG, taper fiO2 to keep SpO2 >90% 4. Rate-control with IV and oral Lopressor, IV digoxin, Cardizem drip and unfractionated Heparin drip before starting oral regiment such as Eliquis 5 mg BID 5. Holding diuresis and repleting free H20 with monitor renal function and electrolytes 6. Resume lisinopril 10 mg QD once renal function and hyperkalemia stabilizes 7. Follow up with Dr. Genaro Davila (cardiology at [place]). Consider cardiac PET or MRI to exclude cardiac involvement in sarcoidosis as outpatient
[2019-05-15] MEDS: METOPROLOL TARTRATE 25 MG TABLET (FP) GT SCH ×2 (10:30→22:41)
[2019-05-15] MEDS: methylPREDNISolone NA SUCC 40 MG/1 ML VIAL IVPUSH SCH (10:30)
[2019-05-15] MEDS: FERROUS SO4 300 MG/5 ML ORAL SOLN UNIT DOSE CUPS NGT SCH ×2 (10:30→21:10)
[2019-05-15] MEDS: PANTOPRAZOLE SODIUM 40 MG VIAL IVPUSH SCH (10:30)
[2019-05-15] MEDS: DIGOXIN 0.5 MG/2 ML AMPUL IVPUSH SCH (10:30)
[2019-05-15] MEDS: THIAMINE HCL 200 MG/2 ML VIAL IVPB SCH (10:30)
--- NOTE | 2019-05-15 12:12 | PN ---
Teaching Attending Note Name of Resident: Tray Cardoza ATTENDING PHYSICIAN STATEMENT I saw and evaluated the patient. I reviewed the resident's note and discussed the case with the resident. I agree with the resident's findings and plan as documented. SUBJECTIVE: Pt seen and examined in the ICU. Remains intubated, more awake today off sedation. Following commands. Placed on CPAP/PS but tachypneic even with 12/5, placed back on assist control. Heart rates remain relatively controlled. OBJECTIVE: Vital Signs Period Temp Pulse Resp BP Sys/[place] Pulse Ox Last 24 Hr 98.2 F-100.0 F 82-113 26-42 114-137/67-91 100-100 Intake & Output 05/12/19 05/13/19 05/14/19 05/15/19 23:59 23:59 23:59 23:59 Intake Total 1071 1120 2971 2187 Output Total 1500 1450 1700 1500 Balance -429 -330 1271 687 Weight 119.204 kg 115.439 kg 118.75 kg 117.435 kg Gen: intubated, awake Heart: irregular Lung: scattered rhonchi Abd: soft, nontender Ext: + edema CBC, BMP 05/15/19 05:45 05/15/19 05:45 Active Medications Chlorhexidine Gluconate (Hibiclens For Decolonization -) 1 applic TP HS [facility] Last Admin: 05/14/19 21:35 Dose: 1 applic Digoxin (Lanoxin Injection -) 0.125 mg IVPUSH DAILY [facility] Last Admin: 05/15/19 10:30 Dose: 0.125 mg Diltiazem HCl (Cardizem Injection -) 10 mg IVPUSH Q4H PRN PRN Reason: TACHYCARDIA Last Admin: 05/10/19 08:30 Dose: 10 mg Docusate Sodium (Colace Liquid -) 100 mg PO DAILY PRN PRN Reason: CONSTIPATION Last Admin: 05/14/19 17:36 Dose: 100 mg Ferrous Sulfate (Feosol) 300 mg NGT BID [facility] Last Admin: 05/15/19 10:30 Dose: 300 mg Heparin Sodium (Porcine) (Heparin -) 1,000 unit IVPUSH PRN PRN PRN Reason: Heparin Heparin Sodium (Porcine) (Heparin -) 5,000 unit IVPUSH PRN PRN PRN Reason: Heparin Diltiazem HCl 125 mg/ Dextrose 125 mls @ 10 mls/hr IVPB TITR [facility]; Protocol Last Admin: 05/15/19 03:22 Dose: 10 mg/hr, 10 mls/hr Propofol (Diprivan -) 1,000,000 mcg in 100 mls @ 3.463 mls/hr IVPB TITR [facility]; Protocol Last Admin: 05/15/19 03:22 Dose: 12 mcg/kg/min, 8.312 mls/hr Sodium Chloride (1/2 Normal Saline) 1,000 mls @ 75 mls/hr IV ASDIR [facility] Last Admin: 05/14/19 15:41 Dose: 75 mls/hr Meropenem 500 mg/ Dextrose 100 mls @ 200 mls/hr IVPB Q12H [facility] Last Admin: 05/15/19 06:18 Dose: 200 mls/hr Dexmedetomidine HCl 200 mcg/ (Sodium Chloride) 50 mls @ 5.93 mls/hr IVPB TITR [facility] Last Infusion: 05/15/19 05:35 Dose: 0.4 mcg/kg/hr, 11.87 mls/hr HEPARIN SOD,[place] 0.45% NACL (Heparin-1/2ns 25,000 Units/500) 25,000 units in 500 mls @ 20 mls/hr IVPB TITR [facility]; Protocol Last Admin: 05/14/19 15:39 Dose: 1,150 units/hr, 23 mls/hr Norepinephrine Bitartrate 8, (000 mcg/ Sodium Chloride) 500 mls @ 15 mls/hr IV TITR [facility]; Protocol Last Titration: 05/15/19 05:36 Dose: 0 mcg/min, 0 mls/hr Insulin Aspart (Novolog Vial Sliding Scale -) 1 vial SQ Q4H [facility]; Protocol Last Admin: 05/15/19 08:42 Dose: 2 units Insulin Detemir (Levemir Vial) 20 units SQ BID@0700,2200 [facility] Last Admin: 05/14/19 21:35 Dose: 20 units Ipratropium [place] (Atrovent 0.02% Nebulizer -) 1 amp NEB Q6H PRN PRN Reason: DYSPEPSIA Stop: 05/17/19 11:29 Last Admin: 05/12/19 22:00 Dose: 1 amp Methylprednisolone Sodium Succinate (Solu-Medrol -) 40 mg IVPUSH DAILY [facility] Last Admin: 05/15/19 10:30 Dose: 40 mg Metoprolol Tartrate (Lopressor Injection -) 5 mg IVPUSH Q4H PRN PRN Reason: TACHYCARDIA Last Admin: 05/10/19 08:43 Dose: 5 mg Metoprolol Tartrate (Lopressor -) 25 mg GT BID [facility] Last Admin: 05/15/19 10:30 Dose: 25 mg Pantoprazole Sodium (Protonix Iv) 40 mg IVPUSH DAILY [facility] Last Admin: 05/15/19 10:30 Dose: 40 mg Thiamine HCl (Vitamin B1 Injection -) 200 mg IVPB DAILY [facility] Last Admin: 05/15/19 10:30 Dose: 200 mg ASSESSMENT AND PLAN: Acute Hypoxic and Hypercapneic Respiratory Failure Pneumonia Gram Positive Bacteremia Septic Shock Volume Overload r/o ARDS Lactic Acidosis Hyperkalemia Acute Kidney Injury Atrial Flutter with RVR HTN DM Anemia - continue antibiotics - holding lasix - continue free water replacement - monitor urine output, creatinine - monitor lytes - taper off empiric medrol - inhaled bronchodilators - rate control - continue anticoagulation - taper fiO2 to keep SpO2 >90% - daily sedation vacations to assess mental status - spontaneous breathing trials as tolerated - enteral feeds - DVT/GI prophylaxis - continue ICU monitoring critical care time spent in reviewing chart, evaluating patient and formulating plan 35 min
--- NOTE | 2019-05-15 12:48 | PN ---
Teaching Attending Note Name of Resident: Giuseppe Rm ATTENDING PHYSICIAN STATEMENT I saw and evaluated the patient. I reviewed the resident's note and discussed the case with the resident. I agree with the resident's findings and plan as documented. Seen and examined; please see resident note for further historical information. I personally verified all valadez historical information and exam findings. Personally interpreted all imaging and diagnostics and reviewed appropriate consults. I reviewed all labs and vital signs as per resident note and EMR as documented. I agree with the above assessment and plan unless supplemented by myself in the following. Patient was more alert this morning when we are attempting the weaning trial. He was on CPAP at the time of rounds, hopefully he can be extubated. Pupils remain equal. No neurologic deficits noted. Remains on medicine service with ICU consult following. 10 item review of systems completed and is negative aside from as discussed in the subjective data in my own/the resident documentation. VS, labs, imaging reviewed Intubated and sedated on ventillator resting in bed, vent settings per flowsheet ET Tube in place; IV access noted with no apparent surrounding cellulitis RRR s1/2 no mgr Normal muscle tone, moves all 5 extremities with normal apparent strength Neck is supple, trachea midline, no fernanda LN Lungs CTAB with sym expansion NT ND +BS no fernanda organomegaly CN2-12 wnl; no FND but limited given clinical circumstances. NC AT EOMI PERRLA Not agitated, cannot complete full psych assessment Agree with problem list as per resident note.
[2019-05-15] MEDS: HEPARIN SOD,PORK IN 0.45% NACL 25,000 UNITS/500 ML INFUS.BAG IVPB SCH (14:00)
--- NOTE | 2019-05-15 14:16 | PN ---
Physical Exam: SUBJECTIVE: Patient seen and examined. No acute events overnight. Patient on sedation vacation this morning, more alert than prior, following commands. ICU team continues weaning attempts but patient not likely to be extubated today due to tachypnea and poor tidal volumes. OBJECTIVE: Vital Signs Period Temp Pulse Resp BP Sys/[place] Pulse Ox Last 24 Hr 98.2 F-100.0 F 82-113 26-42 107-137/67-91 100-100 GENERAL: intubated, sedated HEAD: Normal with no signs of trauma. EYES: PERRL ENT: dry mucous membranes NECK: Trachea midline, supple, Right IJ central line in place LUNGS: diminished breath sounds at bases, no accessory muscle use HEART: RRR, no murmur noted ABDOMEN: obese, soft, nontender, normoactive bowel sounds EXTREMITIES: 2+ pulses, warm, well-perfused. 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 able to wiggle toes on both lower extremities. follows basic commands. Laboratory Results - last 24 hr 05/14/19 05/14/19 05/14/19 11:57 16:20 20:46 WBC RBC Hgb Hct MCV MCH MCHC RDW Plt Count MPV PTT (Actin FS) Sodium Potassium Chloride Carbon Dioxide Anion Gap BUN Creatinine Est GFR (CKD-EPI)AfAm Est GFR (CKD-EPI)NonAf POC Glucometer 276 210 Random Glucose Calcium Phosphorus Magnesium Total Bilirubin AST ALT Alkaline Phosphatase Total Protein Albumin Digoxin 0.84 05/15/19 05/15/19 05/15/19 01:27 05:34 05:45 WBC 6.3 RBC 4.54 Hgb 11.1 L Hct 36.7 MCV 80.8 MCH 24.4 L MCHC 30.1 L RDW 19.5 H Plt Count 184 D MPV 9.9 PTT (Actin FS) Sodium Potassium Chloride Carbon Dioxide Anion Gap BUN Creatinine Est GFR (CKD-EPI)AfAm Est GFR (CKD-EPI)NonAf POC Glucometer 211 178 Random Glucose Calcium Phosphorus Magnesium Total Bilirubin AST ALT Alkaline Phosphatase Total Protein Albumin Digoxin 05/15/19 05/15/19 05/15/19 05:45 05:45 08:40 WBC RBC Hgb Hct MCV MCH MCHC RDW Plt Count MPV PTT (Actin FS) 75.0 H Sodium 153 H Potassium 4.3 Chloride 117 H Carbon Dioxide 32 Anion Gap 3 L BUN 75.9 H Creatinine 1.5 H Est GFR (CKD-EPI)AfAm 61.59 Est GFR (CKD-EPI)NonAf 53.14 POC Glucometer 177 Random Glucose 202 H Calcium 9.4 Phosphorus 3.2 Magnesium 2.3 Total Bilirubin 0.6 AST 68 H ALT 201 H Alkaline Phosphatase 76 Total Protein 5.5 L Albumin 2.4 L Digoxin 05/15/19 12:17 WBC RBC Hgb Hct MCV MCH MCHC RDW Plt Count MPV PTT (Actin FS) Sodium Potassium Chloride Carbon Dioxide Anion Gap BUN Creatinine Est GFR (CKD-EPI)AfAm Est GFR (CKD-EPI)NonAf POC Glucometer 186 Random Glucose Calcium Phosphorus Magnesium Total Bilirubin AST ALT Alkaline Phosphatase Total Protein Albumin Digoxin Active Medications Generic Name Dose Route Start Last Admin Trade Name Freq PRN Reason Stop Dose Admin Chlorhexidine Gluconate 1 applic 04/30/19 22:00 05/14/19 21:35 Hibiclens For Decolonization - TP 1 applic HS [facility] Administration Digoxin 0.125 mg 05/12/19 11:45 05/15/19 10:30 Lanoxin Injection - IVPUSH 0.125 mg DAILY [facility] Administration Diltiazem HCl 10 mg 05/10/19 05:04 05/10/19 08:30 Cardizem Injection - IVPUSH 10 mg Q4H PRN Administration TACHYCARDIA Docusate Sodium 200 mg 05/15/19 13:37 Colace Liquid - PO DAILY PRN CONSTIPATION Ferrous Sulfate 300 mg 05/09/19 10:00 05/15/19 10:30 Feosol NGT 300 mg BID [facility] Administration Heparin Sodium (Porcine) 1,000 unit 05/14/19 15:27 Heparin - IVPUSH PRN PRN Heparin Heparin Sodium (Porcine) 5,000 unit 05/14/19 15:27 Heparin - IVPUSH PRN PRN Heparin Diltiazem HCl 125 mg/ Dextrose 125 mls @ 10 mls/hr 05/12/19 11:46 05/15/19 03 :22 IVPB 10 mg/hr TITR [facility] 10 mls/hr Administration Protocol 10 MG/HR Propofol 1,000,000 mcg in 100 mls @ 3.463 mls/hr 05/13/19 08:30 05/15/19 03: 22 Diprivan - IVPB 12 mcg/kg/min TITR [facility] 8.312 mls/hr Administration Protocol 5 MCG/KG/MIN Sodium Chloride 1,000 mls @ 75 mls/hr 05/13/19 14:15 05/14/19 15:41 1/2 Normal Saline IV 75 mls/hr ASDIR [facility]ISSA Administration Meropenem 500 mg/ Dextrose 100 mls @ 200 mls/hr 05/13/19 18:00 05/15/19 06:18 IVPB 200 mls/hr Q12H [facility] Administration Dexmedetomidine HCl 200 mcg/ 50 mls @ 5.93 mls/hr 05/14/19 07:30 05/15/19 05: 35 Sodium Chloride IVPB 0.4 mcg/kg/hr TITR [facility] 11.87 mls/hr Infusion 0.2 MCG/KG/HR HEPARIN SOD,[place] 0.45% NACL 25,000 units in 500 mls @ 20 mls/hr 05/14/19 15 :30 05/14/19 15:39 Heparin-1/2ns 25,000 Units/500 IVPB 1,150 units/hr TITR [facility] 23 mls/hr Administration Protocol 1,000 UNITS/HR Norepinephrine Bitartrate 8, 500 mls @ 15 mls/hr 05/14/19 16:45 05/15/19 05: 36 000 mcg/ Sodium Chloride IV 0 mcg/min TITR [facility] 0 mls/hr Titration Protocol 4 MCG/MIN Insulin Aspart 1 vial 05/13/19 00:00 05/15/19 12:19 Novolog Vial Sliding Scale - SQ 2 units Q4H [facility] Administration Protocol Insulin Detemir 20 units 05/13/19 22:15 05/14/19 21:35 Levemir Vial SQ 20 units BID@0700,2200 [facility] Administration Ipratropium [place] 1 amp 05/10/19 11:29 05/12/19 22:00 Atrovent 0.02% Nebulizer - NEB 05/17/19 11:29 1 amp Q6H PRN Administration DYSPEPSIA Methylprednisolone Sodium Succinate 40 mg 05/15/19 10:00 05/15/19 10:30 Solu-Medrol - IVPUSH 40 mg DAILY [facility] Administration Metoprolol Tartrate 5 mg 04/30/19 08:57 05/10/19 08:43 Lopressor Injection - IVPUSH 5 mg Q4H PRN Administration TACHYCARDIA Metoprolol Tartrate 25 mg 05/14/19 22:00 05/15/19 10:30 Lopressor - GT 25 mg BID [facility] Administration Pantoprazole Sodium 40 mg 05/14/19 10:00 05/15/19 10:30 Protonix Iv IVPUSH 40 mg DAILY [facility] Administration Thiamine HCl 200 mg 05/13/19 10:00 05/15/19 10:30 Vitamin B1 Injection - IVPB 200 mg DAILY [facility] Administration ASSESSMENT/PLAN: 53 y/o/m with PMHx of DM2, HFpEF(last EF: 45-50%), 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 #Acute Hypoxic and Hypercapneic Respiratory Failure/ EMMY - extubated on 05/09, re-intubated on 05/13 - Pulm consulted - Duonemyah RQID - Solumedrol 40mg daily, tapered down from BID. continue to taper steroids - Follow CXRs - Abx coverage broadened as per ID to Meropenem. Zosyn discontinued - Azithromycin and Vancomycin discontinued - ID consulted (Dr. 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 There is no evidence of myopathy, although given that patient was unable to participate, cannot rule out myopathic process" - Head CT - negative for acute pathology - unable to complete MRI due to non-MRI compatible vents - Neuro Consulted (Dr. Pleitez) #HFpEF vs. Cardiogenic shock - Lasix discontinued - Strict Is & Os, daily weights - ECHO - EF of 55-60%, no significant abnormalities noted, no vegetations - Cardiology Consult (Dr. Encinas) - Off pressors, BP stable - Cardio recommends cardiac PET or MRI to exclude cardiac involvement in sarcoidosis as outpatient. F/u with Dr. Genaro Davila at [facility] #Atrial Flutter - Cardizem drip for rate control. Amiodarone drip discontinued - Digoxin 0.125mg daily, 0.25mg given once for loading dose - Lopressor 25mg BID [facility]ISSA via NGtube, Lopressor 5mg IV Q4H PRN - Cardizem 10mg IV Q4H PRN - Heparin drip #RYNE on CKD w/ Hyperkalemia - Monitor BUN/Cr levels, baseline Cr ~1.5 - Renal function improved, Cr now at 1.5 - Nephrology Consulted (Dr. Kelley) - Likely secondary to volume overload. Pt. likely has CKD given risk factors of DM2 (uncontrolled glucose) and Heart Failure - 1/2 NS for hypernatremia, increase free water - Hold Lisinopril, restart 10mg QD once improved renal function, BP #DM2 - BGM - ISS - Levemir 20mg BID #FEN - 1/2 NS @75mls/hr - monitor and replete lytes as needed - NG tube inserted, tube feeds to goal #Prophylaxis - Heparin Drip - Protonix #Disposition - Continue ICU monitoring, unable to transfer patient to [facility] at this time. Visit type - Emergency Visit Emergency Visit: Yes ED Registration Date: 04/30/19 Care time: The patient presented to the Emergency Department on the above date and was hospitalized for further evaluation of their emergent condition. - New Patient This patient is new to me today: No - Critical Care Critical Care patient: Yes Total Critical Care Time (in minutes): 36 Critical Care Statement: The care of this patient involved high complexity decision making to prevent further life threatening deterioration of the patient 's condition and/or to evaluate & treat vital organ system(s) failure or risk of failure. - Discharge Referral Referred to [facility] No ATTENDING PHYSICIAN STATEMENT I saw and evaluated the patient. I reviewed the resident's note and discussed the case with the resident. I agree with the resident's findings and plan as documented. SUBJECTIVE: OBJECTIVE: ASSESSMENT AND PLAN:
[2019-05-15] MEDS: DEXMEDETOMIDINE HCL 200 MCG in SODIUM CHLORIDE 48 ML IVPB SCH (15:00)
--- NOTE | 2019-05-15 16:30 | PN ---
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, Physician History of Present Illness: Pt seen and examined at bedside. He remains intubated. - Current Medication List Current Medications: Active Medications Chlorhexidine Gluconate (Hibiclens For Decolonization -) 1 applic TP HS [facility] Last Admin: 05/14/19 21:35 Dose: 1 applic Digoxin (Lanoxin Injection -) 0.125 mg IVPUSH DAILY [facility] Last Admin: 05/15/19 10:30 Dose: 0.125 mg Diltiazem HCl (Cardizem Injection -) 10 mg IVPUSH Q4H PRN PRN Reason: TACHYCARDIA Last Admin: 05/10/19 08:30 Dose: 10 mg Docusate Sodium (Colace Liquid -) 200 mg PO DAILY PRN PRN Reason: CONSTIPATION Ferrous Sulfate (Feosol) 300 mg NGT BID [facility] Last Admin: 05/15/19 10:30 Dose: 300 mg Heparin Sodium (Porcine) (Heparin -) 1,000 unit IVPUSH PRN PRN PRN Reason: Heparin Heparin Sodium (Porcine) (Heparin -) 5,000 unit IVPUSH PRN PRN PRN Reason: Heparin Diltiazem HCl 125 mg/ Dextrose 125 mls @ 10 mls/hr IVPB TITR [facility]ISSA; Protocol Last Admin: 05/15/19 03:22 Dose: 10 mg/hr, 10 mls/hr Propofol (Diprivan -) 1,000,000 mcg in 100 mls @ 3.463 mls/hr IVPB TITR [facility]SA; Protocol Last Admin: 05/15/19 03:22 Dose: 12 mcg/kg/min, 8.312 mls/hr Sodium Chloride (1/2 Normal Saline) 1,000 mls @ 75 mls/hr IV ASDIR [facility] Last Admin: 05/14/19 15:41 Dose: 75 mls/hr Meropenem 500 mg/ Dextrose 100 mls @ 200 mls/hr IVPB Q12H [facility] Last Admin: 05/15/19 06:18 Dose: 200 mls/hr Dexmedetomidine HCl 200 mcg/ (Sodium Chloride) 50 mls @ 5.93 mls/hr IVPB TITR [facility]SA Last Infusion: 05/15/19 05:35 Dose: 0.4 mcg/kg/hr, 11.87 mls/hr HEPARIN SOD,PORK IN 0.45% NACL (Heparin-1/2ns 25,000 Units/500) 25,000 units in 500 mls @ 20 mls/hr IVPB TITR [facility]; Protocol Last Admin: 05/14/19 15:39 Dose: 1,150 units/hr, 23 mls/hr Norepinephrine Bitartrate 8, (000 mcg/ Sodium Chloride) 500 mls @ 15 mls/hr IV TITR [facility]; Protocol Last Titration: 05/15/19 05:36 Dose: 0 mcg/min, 0 mls/hr Insulin Aspart (Novolog Vial Sliding Scale -) 1 vial SQ Q4H [facility]; Protocol Last Admin: 05/15/19 12:19 Dose: 2 units Insulin Detemir (Levemir Vial) 20 units SQ BID@0700,2200 [facility] Last Admin: 05/14/19 21:35 Dose: 20 units Ipratropium [place] (Atrovent 0.02% Nebulizer -) 1 amp NEB Q6H PRN PRN Reason: DYSPEPSIA Stop: 05/17/19 11:29 Last Admin: 05/12/19 22:00 Dose: 1 amp Methylprednisolone Sodium Succinate (Solu-Medrol -) 40 mg IVPUSH DAILY [facility] Last Admin: 05/15/19 10:30 Dose: 40 mg Metoprolol Tartrate (Lopressor Injection -) 5 mg IVPUSH Q4H PRN PRN Reason: TACHYCARDIA Last Admin: 05/10/19 08:43 Dose: 5 mg Metoprolol Tartrate (Lopressor -) 25 mg GT BID [facility] Last Admin: 05/15/19 10:30 Dose: 25 mg Pantoprazole Sodium (Protonix Iv) 40 mg IVPUSH DAILY [facility] Last Admin: 05/15/19 10:30 Dose: 40 mg Thiamine HCl (Vitamin B1 Injection -) 200 mg IVPB DAILY [facility] Last Admin: 05/15/19 10:30 Dose: 200 mg - Objective Vital Signs: Vital Signs Temperature 98.7 F 05/15/19 14:00 Pulse Rate 86 05/15/19 14:00 Respiratory Rate 43 H 05/15/19 14:00 Blood Pressure 111/73 05/15/19 14:00 O2 Sat by Pulse Oximetry (%) 100 05/15/19 09:40 Constitutional: Yes: Calm Eyes: Yes: Conjunctiva Clear HENT: Yes: Atraumatic Neck: Yes: Supple Cardiovascular: Yes: S1, S2 Respiratory: Yes: CTA Bilaterally, Mechanically Ventilated Gastrointestinal: Yes: Soft, Abdomen, Obese Genitourinary: Yes: Andrews Present Edema: Yes Edema: LLE: Trace, RLE: Trace Neurological: Yes: Lethargy Labs: CBC, BMP 05/15/19 05:45 05/15/19 05:45 INR, PTT INR 1.09 (0.83-1.09) 05/05/19 05:30 Problem List - Problems (1) Acute decompensated heart failure Code(s): I50.9 - HEART FAILURE, UNSPECIFIED (2) Atrial fibrillation and flutter Code(s): I48.91 - UNSPECIFIED ATRIAL FIBRILLATION; I48.92 - UNSPECIFIED ATRIAL FLUTTER (3) Hyperkalemia Code(s): E87.5 - HYPERKALEMIA (4) Pneumonia Code(s): J18.9 - PNEUMONIA, UNSPECIFIED ORGANISM Qualifiers: Pneumonia type: due to unspecified organism (5) Sarcoidosis of other sites Code(s): D86.89 - SARCOIDOSIS OF OTHER SITES Assessment/Plan Current Medications Generic Name Dose Route Start Last Admin Trade Name Freq PRN Reason Stop Dose Admin Chlorhexidine Gluconate 1 applic 04/30/19 22:00 05/14/19 21:35 Hibiclens For Decolonization - TP 1 applic HS ELISSA Administration Digoxin 0.125 mg 05/12/19 11:45 05/15/19 10:30 Lanoxin Injection - IVPUSH 0.125 mg DAILY ELISSA Administration Diltiazem HCl 10 mg 05/10/19 05:04 05/10/19 08:30 Cardizem Injection - IVPUSH 10 mg Q4H PRN Administration TACHYCARDIA Docusate Sodium 200 mg 05/15/19 13:37 Colace Liquid - PO DAILY PRN CONSTIPATION Ferrous Sulfate 300 mg 05/09/19 10:00 05/15/19 10:30 Feosol NGT 300 mg BID ELISSA Administration Heparin Sodium (Porcine) 1,000 unit 05/14/19 15:27 Heparin - IVPUSH PRN PRN Heparin Heparin Sodium (Porcine) 5,000 unit 05/14/19 15:27 Heparin - IVPUSH PRN PRN Heparin Diltiazem HCl 125 mg/ Dextrose 125 mls @ 10 mls/hr 05/12/19 11:46 05/15/19 03 :22 IVPB 10 mg/hr TITR ELISSA 10 mls/hr Administration Protocol 10 MG/HR Propofol 1,000,000 mcg in 100 mls @ 3.463 mls/hr 05/13/19 08:30 05/15/19 03: 22 Diprivan - IVPB 12 mcg/kg/min TITR ELISSA 8.312 mls/hr Administration Protocol 5 MCG/KG/MIN Sodium Chloride 1,000 mls @ 75 mls/hr 05/13/19 14:15 05/14/19 15:41 1/2 Normal Saline IV 75 mls/hr ASDIR ELISSA Administration Meropenem 500 mg/ Dextrose 100 mls @ 200 mls/hr 05/13/19 18:00 05/15/19 06:18 IVPB 200 mls/hr Q12H [facility]ISSA Administration Dexmedetomidine HCl 200 mcg/ 50 mls @ 5.93 mls/hr 05/14/19 07:30 05/15/19 05: 35 Sodium Chloride IVPB 0.4 mcg/kg/hr TITR ELISSA 11.87 mls/hr Infusion 0.2 MCG/KG/HR HEPARIN SOD,PORK IN 0.45% NACL 25,000 units in 500 mls @ 20 mls/hr 05/14/19 15 :30 05/14/19 15:39 Heparin-1/2ns 25,000 Units/500 IVPB 1,150 units/hr TITR ELISSA 23 mls/hr Administration Protocol 1,000 UNITS/HR Norepinephrine Bitartrate 8, 500 mls @ 15 mls/hr 05/14/19 16:45 05/15/19 05: 36 000 mcg/ Sodium Chloride IV 0 mcg/min TITR ELISSA 0 mls/hr Titration Protocol 4 MCG/MIN Insulin Aspart 1 vial 05/13/19 00:00 05/15/19 12:19 Novolog Vial Sliding Scale - SQ 2 units Q4H [facility]ISSA Administration Protocol Insulin Detemir 20 units 05/13/19 22:15 05/14/19 21:35 Levemir Vial SQ 20 units BID@0700,2200 [facility] Administration Ipratropium [place] 1 amp 05/10/19 11:29 05/12/19 22:00 Atrovent 0.02% Nebulizer - NEB 05/17/19 11:29 1 amp Q6H PRN Administration DYSPEPSIA Methylprednisolone Sodium Succinate 40 mg 05/15/19 10:00 05/15/19 10:30 Solu-Medrol - IVPUSH 40 mg DAILY [facility]ISSA Administration Metoprolol Tartrate 5 mg 04/30/19 08:57 05/10/19 08:43 Lopressor Injection - IVPUSH 5 mg Q4H PRN Administration TACHYCARDIA Metoprolol Tartrate 25 mg 05/14/19 22:00 05/15/19 10:30 Lopressor - GT 25 mg BID [facility] Administration Pantoprazole Sodium 40 mg 05/14/19 10:00 05/15/19 10:30 Protonix Iv IVPUSH 40 mg DAILY [facility] Administration Thiamine HCl 200 mg 05/13/19 10:00 05/15/19 10:30 Vitamin B1 Injection - IVPB 200 mg DAILY [facility]IS[facility] Administration Impression 1. RYNE 2. hyperkalemia 3. resp failure requiring intubation 4. resp acidosis 5. dm 6. hx htn 7. sleep apnea 8. obesity 9. hx non compliance 10. chf 11. sarcoid 12. volume overload 13. hypernatremia Plan - increase free water with feeds - renal function is improving - repeat labs in am - mix drips in hypotonic fluids - monitor sodium - monitor renal function
[2019-05-15] MEDS: INSULIN (LEVEMIR) 100 UNITS/ML UNITS SQ SCH ×2 (16:40→22:37)
[2019-05-15] MEDS: SODIUM CHLORIDE 0.45% IV SCH (16:42)
[2019-05-15] MEDS: NOREPINEPHRINE BITARTRATE IV SCH (16:42)
[2019-05-15] MEDS: SODIUM CHLORIDE 0.45% 1,000 ML IV SCH (17:39)
[2019-05-15] MEDS ORDERED: BENZOIN/ALOE VERA/STORAX/TOLU 58 ML BOTTLE ONE (17:47)
[2019-05-15] MEDS: CHLORHEXIDINE GLUCONATE 4% CLEANSER FOR DECOLONIZATION TP SCH (21:10)
[2019-05-15 22:14] LABS: BLOOD UREA NITROGEN 77.9 mg/dL (7-18); CALCIUM 8.8 mg/dL (8.5-10.1); CREATININE 1.6 mg/dL (0.55-1.3); POTASSIUM 5.2 mmol/L (3.5-5.1)
[2019-05-16] MEDS: INSULIN SLIDING SCALE (NOVOLOG) 1 VIAL SQ SCH ×5 (04:00→14:00)
[2019-05-16] MEDS ORDERED: MEROPENEM 500 MG VIAL (RESTRICTED TO ID) IVPB ONE ×2 (05:12→17:56)
[2019-05-16] MEDS ORDERED: DEXTROSE 5%-WATER 100 ML IVPB ONE ×2 (05:13→17:56)
[2019-05-16] MEDS: MEROPENEM 500 MG in DEXTROSE 5%-WATER 100 ML IVPB SCH ×2 (05:15→18:00)
[2019-05-16 06:47] LABS: HEMATOCRIT 35.8 % (35.4-49); HEMOGLOBIN 10.7 GM/dL (11.7-16.9); MCH 24.8 pg (25.7-33.7); MCHC 29.9 g/dl (32.0-35.9); MEAN PLT VOLUME 10.3 fl (7.5-11.1); PLATELET COUNT 138 K/MM3 (134-434); RBC 4.32 M/mm3 (4.00-5.60); RDW 19.4 % (11.9-15.9); WHITE BLOOD COUNT 4.6 K/mm3 (4.0-10.0)
[2019-05-16] MEDS: INSULIN (LEVEMIR) 100 UNITS/ML UNITS SQ SCH (06:52)
[2019-05-16] MEDS: DEXMEDETOMIDINE HCL 200 MCG in SODIUM CHLORIDE 48 ML IVPB SCH ×2 (06:53→11:00)
[2019-05-16 08:05] LABS: ALBUMIN 2.3 g/dl (3.4-5.0); BILIRUBIN,TOTAL 0.4 mg/dL (0.2-1); BLOOD UREA NITROGEN 75.6 mg/dL (7-18); CALCIUM 8.7 mg/dL (8.5-10.1); CREATININE 1.6 mg/dL (0.55-1.3); MAGNESIUM 2.3 mg/dL (1.8-2.4); PHOSPHOROUS 2.9 mg/dL (2.5-4.9); POTASSIUM 5.2 mmol/L (3.5-5.1); TOT PROT 5.4 g/dl (6.4-8.2)
[2019-05-16] MEDS ORDERED: PT OWN MED DRAWER 7, Y5N ONE ×2 (09:02→21:06)
[2019-05-16] MEDS: METOPROLOL TARTRATE 25 MG TABLET (FP) GT SCH ×3 (09:38→22:39)
[2019-05-16] MEDS: FERROUS SO4 300 MG/5 ML ORAL SOLN UNIT DOSE CUPS NGT SCH ×2 (09:38→22:39)
[2019-05-16] MEDS: methylPREDNISolone NA SUCC 40 MG/1 ML VIAL IVPUSH SCH (09:39)
[2019-05-16] MEDS: THIAMINE HCL 200 MG/2 ML VIAL IVPB SCH (09:39)
[2019-05-16] MEDS: PANTOPRAZOLE SODIUM 40 MG VIAL IVPUSH SCH (09:39)
[2019-05-16] MEDS: DIGOXIN 0.5 MG/2 ML AMPUL IVPUSH SCH (09:39)
[2019-05-16] MEDS: PROPOFOL 1,000,000 MCG/100 ML VIAL IVPB SCH ×2 (09:53→15:27)
--- NOTE | 2019-05-16 10:48 | PN ---
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, Physician History of Present Illness: Awake off sedation and intubated on cardizem and heparin gtt, remains off levophed gtt, did not tolerate cpap/PS wean yesterday, plan for another attempt today. - Current Medication List Current Medications: Active Medications Chlorhexidine Gluconate (Hibiclens For Decolonization -) 1 applic TP HS [facility] Last Admin: 05/15/19 21:10 Dose: 1 applic Digoxin (Lanoxin Injection -) 0.125 mg IVPUSH DAILY [facility] Last Admin: 05/16/19 09:39 Dose: 0.125 mg Diltiazem HCl (Cardizem Injection -) 10 mg IVPUSH Q4H PRN PRN Reason: TACHYCARDIA Last Admin: 05/10/19 08:30 Dose: 10 mg Docusate Sodium (Colace Liquid -) 200 mg PO DAILY PRN PRN Reason: CONSTIPATION Ferrous Sulfate (Feosol) 300 mg NGT BID [facility] Last Admin: 05/16/19 09:38 Dose: 300 mg Heparin Sodium (Porcine) (Heparin -) 1,000 unit IVPUSH PRN PRN PRN Reason: Heparin Heparin Sodium (Porcine) (Heparin -) 5,000 unit IVPUSH PRN PRN PRN Reason: Heparin Diltiazem HCl 125 mg/ Dextrose 125 mls @ 10 mls/hr IVPB TITR [facility]; Protocol Last Admin: 05/15/19 15:00 Dose: 10 mg/hr, 10 mls/hr Propofol (Diprivan -) 1,000,000 mcg in 100 mls @ 3.463 mls/hr IVPB TITR [facility]; Protocol Last Admin: 05/16/19 09:53 Dose: Not Given Sodium Chloride (1/2 Normal Saline) 1,000 mls @ 75 mls/hr IV ASDIR [facility] Last Admin: 05/15/19 17:39 Dose: 75 mls/hr Meropenem 500 mg/ Dextrose 100 mls @ 200 mls/hr IVPB Q12H [facility] Last Admin: 05/16/19 05:15 Dose: 200 mls/hr Dexmedetomidine HCl 200 mcg/ (Sodium Chloride) 50 mls @ 5.93 mls/hr IVPB TITR [facility] Last Infusion: 05/16/19 09:53 Dose: 0 mcg/kg/hr, 0 mls/hr HEPARIN SOD,[place] IN 0.45% NACL (Heparin-1/2ns 25,000 Units/500) 25,000 units in 500 mls @ 20 mls/hr IVPB TITR [facility]; Protocol Last Admin: 05/15/19 14:00 Dose: 1,150 units/hr, 23 mls/hr Norepinephrine Bitartrate 8, (000 mcg/ Sodium Chloride) 500 mls @ 15 mls/hr IV TITR [facility]; Protocol Last Admin: 05/15/19 16:42 Dose: Not Given Insulin Aspart (Novolog Vial Sliding Scale -) 1 vial SQ Q4H [facility]; Protocol Last Admin: 05/16/19 09:54 Dose: 6 units Insulin Detemir (Levemir Vial) 20 units SQ BID@0700,2200 [facility] Last Admin: 05/16/19 06:52 Dose: 20 units Ipratropium [place] (Atrovent 0.02% Nebulizer -) 1 amp NEB Q6H PRN PRN Reason: DYSPEPSIA Stop: 05/17/19 11:29 Last Admin: 05/12/19 22:00 Dose: 1 amp Methylprednisolone Sodium Succinate (Solu-Medrol -) 40 mg IVPUSH DAILY [facility] Last Admin: 05/16/19 09:39 Dose: 40 mg Metoprolol Tartrate (Lopressor Injection -) 5 mg IVPUSH Q4H PRN PRN Reason: TACHYCARDIA Last Admin: 05/10/19 08:43 Dose: 5 mg Metoprolol Tartrate (Lopressor -) 25 mg GT BID [facility] Last Admin: 05/16/19 09:38 Dose: 25 mg Pantoprazole Sodium (Protonix Iv) 40 mg IVPUSH DAILY [facility] Last Admin: 05/16/19 09:39 Dose: 40 mg Thiamine HCl (Vitamin B1 Injection -) 200 mg IVPB DAILY [facility] Last Admin: 05/16/19 09:39 Dose: 200 mg - Objective Vital Signs: Vital Signs Temperature 98.2 F 05/16/19 06:00 Pulse Rate 130 H 05/16/19 09:39 Respiratory Rate 38 H 05/16/19 08:22 Blood Pressure 121/81 05/16/19 08:00 O2 Sat by Pulse Oximetry (%) 100 05/16/19 08:22 Constitutional: Yes: No Distress, Calm Neck: Yes: Supple Cardiovascular: Yes: Tachycardia, Pulse Irregular Respiratory: Yes: Intubated, Mechanically Ventilated, Rhonchi Gastrointestinal: Yes: Normal Bowel Sounds, Soft, Abdomen, Obese Genitourinary: Yes: Andrews Present Edema: No Labs: CBC, BMP 05/16/19 05:00 05/16/19 05:00 INR, PTT INR 1.09 (0.83-1.09) 05/05/19 05:30 - ....Imaging Chest X-ray: Report Reviewed (New ATX changes at bases) EKG: Report Reviewed (Tele: Rate-controlled afib) Problem List - Problems (1) Pneumonia Code(s): J18.9 - PNEUMONIA, UNSPECIFIED ORGANISM Qualifiers: Pneumonia type: due to unspecified organism (2) Acute hypercapnic respiratory failure due to obstructive sleep apnea Code(s): J96.02 - ACUTE RESPIRATORY FAILURE WITH HYPERCAPNIA; G47.33 - OBSTRUCTIVE SLEEP APNEA (ADULT) (PEDIATRIC) (3) Acute decompensated heart failure Code(s): I50.9 - HEART FAILURE, UNSPECIFIED (4) Acute renal failure Code(s): N17.9 - ACUTE KIDNEY FAILURE, UNSPECIFIED Qualifiers: Acute renal failure type: unspecified Qualified Code(s): N17.9 - Acute kidney failure, unspecified (5) Sarcoidosis of other sites Code(s): D86.89 - SARCOIDOSIS OF OTHER SITES (6) Type 2 diabetes mellitus Code(s): E11.9 - TYPE 2 DIABETES MELLITUS WITHOUT COMPLICATIONS Qualifiers: Diabetes mellitus ferry terminal agent insulin use: without care home use Diabetes mellitus complication detail: with chronic kidney disease Chronic kidney disease stage: stage 2 (mild) (7) Atrial fibrillation and flutter Code(s): I48.91 - UNSPECIFIED ATRIAL FIBRILLATION; I48.92 - UNSPECIFIED ATRIAL FLUTTER Assessment/Plan 05/01/2019 Normal LV and RV size and fxn, tr TR 03/14/2019 Normal LV size and fxn, no thrombus ADEEL, mild-mod dilated and HK RV, tr MR, mild-mod TR, tr KS, trace pericardial effusion 1. Acute hypoxic and hypercapneic respiratory failure currently on mechanical ventilation 2. Pneumonia, septic shock, Gram Positive Bacteremia and ARDS 3. Sarcoidosis confirmed by skin biopsy, r/o cardiac involvement 4. OSAS nonadherent to CPAP 5. Paroxysmal Aflutter/Afib with RVR 6. Acute on chronic diastolic heart failure 7. Acute on CKD with hyperkalemia resolving 8. Type 2 DM 9. Anemia PLAN: 1. Empiric antibiotic, IV steroid taper with GI protection, bronchodilator and enteral feeds 2. Weaned off Levophed for MAP>65 mmHg 3. Vent wean per ABG, taper fiO2 to keep SpO2 >90%, SBT as tolerated 4. Rate-control with IV and oral Lopressor, IV digoxin, Cardizem drip and unfractionated Heparin drip before starting oral regiment such as Eliquis 5 mg BID 5. Holding diuresis and repleting free H20 with monitor renal function and electrolytes 6. Resume lisinopril 10 mg QD once renal function and hyperkalemia stabilizes 7. Follow up with Dr. eGnaro Davila (cardiology at [place]). Consider cardiac PET or MRI to exclude cardiac involvement in sarcoidosis as outpatient
--- NOTE | 2019-05-16 11:35 | PN ---
Teaching Attending Note Name of Resident: Basilio Cali ATTENDING PHYSICIAN STATEMENT I saw and evaluated the patient. I reviewed the resident's note and discussed the case with the resident. I agree with the resident's findings and plan as documented. SUBJECTIVE: Patient seen and examined in the ICU. Remains intubated, more awake today off sedation. Following commands. No pressors. Did not tolerate CPAP/PS yesterday with 03/13. Heart rates remain relatively controlled. OBJECTIVE: Intake & Output 05/13/19 05/14/19 05/15/19 05/16/19 23:59 23:59 23:59 23:59 Intake Total 1120 2971 4708 2960 Output Total 1450 1700 2100 1200 Balance -330 1271 2608 1760 Weight 254 lb 8 oz 261 lb 12.8 oz 258 lb 14.4 oz 258 lb 14.4 oz Last Vital Signs Temp Pulse Resp BP Pulse Ox 98.2 F 130 H 38 H 121/81 100 05/16/19 06:00 05/16/19 09:39 05/16/19 08:22 05/16/19 08:00 05/16/19 08:22 Active Medications Chlorhexidine Gluconate (Hibiclens For Decolonization -) 1 applic TP HS [facility] Last Admin: 05/15/19 21:10 Dose: 1 applic Digoxin (Lanoxin Injection -) 0.125 mg IVPUSH DAILY [facility] Last Admin: 05/16/19 09:39 Dose: 0.125 mg Diltiazem HCl (Cardizem Injection -) 10 mg IVPUSH Q4H PRN PRN Reason: TACHYCARDIA Last Admin: 05/10/19 08:30 Dose: 10 mg Docusate Sodium (Colace Liquid -) 200 mg PO DAILY PRN PRN Reason: CONSTIPATION Ferrous Sulfate (Feosol) 300 mg NGT BID [facility] Last Admin: 05/16/19 09:38 Dose: 300 mg Heparin Sodium (Porcine) (Heparin -) 1,000 unit IVPUSH PRN PRN PRN Reason: Heparin Heparin Sodium (Porcine) (Heparin -) 5,000 unit IVPUSH PRN PRN PRN Reason: Heparin Diltiazem HCl 125 mg/ Dextrose 125 mls @ 10 mls/hr IVPB TITR [facility]; Protocol Last Admin: 05/15/19 15:00 Dose: 10 mg/hr, 10 mls/hr Propofol (Diprivan -) 1,000,000 mcg in 100 mls @ 3.463 mls/hr IVPB TITR [facility]; Protocol Last Admin: 05/16/19 09:53 Dose: Not Given Sodium Chloride (1/2 Normal Saline) 1,000 mls @ 75 mls/hr IV ASDIR [facility] Last Admin: 05/15/19 17:39 Dose: 75 mls/hr Meropenem 500 mg/ Dextrose 100 mls @ 200 mls/hr IVPB Q12H [facility] Last Admin: 05/16/19 05:15 Dose: 200 mls/hr Dexmedetomidine HCl 200 mcg/ (Sodium Chloride) 50 mls @ 5.93 mls/hr IVPB TITR [facility] Last Infusion: 05/16/19 09:53 Dose: 0 mcg/kg/hr, 0 mls/hr HEPARIN SOD,[place] IN 0.45% NACL (Heparin-1/2ns 25,000 Units/500) 25,000 units in 500 mls @ 20 mls/hr IVPB TITR [facility]; Protocol Last Admin: 05/15/19 14:00 Dose: 1,150 units/hr, 23 mls/hr Norepinephrine Bitartrate 8, (000 mcg/ Sodium Chloride) 500 mls @ 15 mls/hr IV TITR [facility]; Protocol Last Admin: 05/15/19 16:42 Dose: Not Given Insulin Aspart (Novolog Vial Sliding Scale -) 1 vial SQ Q4H [facility]; Protocol Last Admin: 05/16/19 09:54 Dose: 6 units Insulin Detemir (Levemir Vial) 20 units SQ BID@0700,2200 [facility] Last Admin: 05/16/19 06:52 Dose: 20 units Ipratropium [place] (Atrovent 0.02% Nebulizer -) 1 amp NEB Q6H PRN PRN Reason: DYSPEPSIA Stop: 05/17/19 11:29 Last Admin: 05/12/19 22:00 Dose: 1 amp Metoprolol Tartrate (Lopressor Injection -) 5 mg IVPUSH Q4H PRN PRN Reason: TACHYCARDIA Last Admin: 05/10/19 08:43 Dose: 5 mg Metoprolol Tartrate (Lopressor -) 25 mg GT TID [facility] Pantoprazole Sodium (Protonix Iv) 40 mg IVPUSH DAILY [facility] Last Admin: 05/16/19 09:39 Dose: 40 mg Thiamine HCl (Vitamin B1 Injection -) 200 mg IVPB DAILY [facility] Last Admin: 05/16/19 09:39 Dose: 200 mg Gen: intubated, awake Heart: irregular Lung: scattered rhonchi Abd: soft, nontender Ext: + edema Laboratory Results - last 24 hr 05/15/19 05/15/19 05/15/19 12:17 18:03 20:00 WBC RBC Hgb Hct MCV MCH MCHC RDW Plt Count MPV PTT (Actin FS) Sodium 148 H Potassium 5.2 H Chloride 115 H Carbon Dioxide 30 Anion Gap 4 L BUN 77.9 H Creatinine 1.6 H Est GFR (CKD-EPI)AfAm 56.97 Est GFR (CKD-EPI)NonAf 49.15 POC Glucometer 186 280 Random Glucose 369 H Calcium 8.8 Phosphorus Magnesium Total Bilirubin AST ALT Alkaline Phosphatase Total Protein Albumin 05/16/19 05/16/19 05/16/19 05:00 05:00 05:00 WBC 4.6 RBC 4.32 Hgb 10.7 L Hct 35.8 MCV 83.0 MCH 24.8 L MCHC 29.9 L RDW 19.4 H Plt Count 138 D MPV 10.3 PTT (Actin FS) 61.1 H Sodium 149 H Potassium 5.2 H Chloride 115 H Carbon Dioxide 30 Anion Gap 4 L BUN 75.6 H Creatinine 1.6 H Est GFR (CKD-EPI)AfAm 56.97 Est GFR (CKD-EPI)NonAf 49.15 POC Glucometer Random Glucose 366 H Calcium 8.7 Phosphorus 2.9 Magnesium 2.3 Total Bilirubin 0.4 AST 176 H ALT 313 H Alkaline Phosphatase 107 Total Protein 5.4 L Albumin 2.3 L 05/16/19 05/16/19 05:23 09:48 WBC RBC Hgb Hct MCV MCH MCHC RDW Plt Count MPV PTT (Actin FS) Sodium Potassium Chloride Carbon Dioxide Anion Gap BUN Creatinine Est GFR (CKD-EPI)AfAm Est GFR (CKD-EPI)NonAf POC Glucometer 327 290 Random Glucose Calcium Phosphorus Magnesium Total Bilirubin AST ALT Alkaline Phosphatase Total Protein Albumin ASSESSMENT AND PLAN: Acute Hypoxic and Hypercapneic Respiratory Failure Pneumonia Gram Positive Bacteremia Septic Shock Volume Overload ARDS Lactic Acidosis Hyperkalemia Acute Kidney Injury Atrial Flutter with RVR HTN DM Anemia - continue antibiotics - monitor urine output, creatinine - monitor lytes - inhaled bronchodilators - rate control - continue anticoagulation - taper fiO2 to keep SpO2 >90% - daily sedation vacations to assess mental status - spontaneous breathing trials as tolerated - enteral feeds - DVT/GI prophylaxis - Will need to discuss the possibility of a Trach with the family - continue ICU monitoring Dr Maya Critical care time spent in reviewing chart, evaluating patient and formulating plan 36 min
--- NOTE | 2019-05-16 11:56 | PN ---
Physical Exam: SUBJECTIVE: Patient seen and examined in the morning. No acute events overnight. Patient is intubated but does not respond to questioning. OBJECTIVE: Vital Signs Period Temp Pulse Resp BP Sys/[place] Pulse Ox Last 24 Hr 98.2 F-99.2 F 40-130 30-43 106-132/68-84 98-100 GENERAL: The patient is awake, alert, but intubated. HEAD: Normal with no signs of trauma. ET tube in place. EYES: PERRLA, sclera anicteric LUNGS: Breath sounds faint, difficult to appreciate in apex. HEART: Tachycaridc, no murmurs, rubs or gallops. ABDOMEN: Soft, nontender, nondistended, normoactive bowel sounds, no guarding, no rebound, no hepatosplenomegaly, no masses. EXTREMITIES: 2+ pulses, warm, well-perfused, no edema. NEUROLOGICAL: Cranial nerves II through XII grossly intact. Normal speech, gait not observed. PSYCH: Normal mood, normal affect. SKIN: Warm, dry, normal turgor, no rashes or lesions noted Laboratory Results - last 24 hr 05/15/19 05/15/19 05/15/19 12:17 18:03 20:00 WBC RBC Hgb Hct MCV MCH MCHC RDW Plt Count MPV PTT (Actin FS) Sodium 148 H Potassium 5.2 H Chloride 115 H Carbon Dioxide 30 Anion Gap 4 L BUN 77.9 H Creatinine 1.6 H Est GFR (CKD-EPI)AfAm 56.97 Est GFR (CKD-EPI)NonAf 49.15 POC Glucometer 186 280 Random Glucose 369 H Calcium 8.8 Phosphorus Magnesium Total Bilirubin AST ALT Alkaline Phosphatase Total Protein Albumin 05/16/19 05/16/19 05/16/19 05:00 05:00 05:00 WBC 4.6 RBC 4.32 Hgb 10.7 L Hct 35.8 MCV 83.0 MCH 24.8 L MCHC 29.9 L RDW 19.4 H Plt Count 138 D MPV 10.3 PTT (Actin FS) 61.1 H Sodium 149 H Potassium 5.2 H Chloride 115 H Carbon Dioxide 30 Anion Gap 4 L BUN 75.6 H Creatinine 1.6 H Est GFR (CKD-EPI)AfAm 56.97 Est GFR (CKD-EPI)NonAf 49.15 POC Glucometer Random Glucose 366 H Calcium 8.7 Phosphorus 2.9 Magnesium 2.3 Total Bilirubin 0.4 AST 176 H ALT 313 H Alkaline Phosphatase 107 Total Protein 5.4 L Albumin 2.3 L 05/16/19 05/16/19 05:23 09:48 WBC RBC Hgb Hct MCV MCH MCHC RDW Plt Count MPV PTT (Actin FS) Sodium Potassium Chloride Carbon Dioxide Anion Gap BUN Creatinine Est GFR (CKD-EPI)AfAm Est GFR (CKD-EPI)NonAf POC Glucometer 327 290 Random Glucose Calcium Phosphorus Magnesium Total Bilirubin AST ALT Alkaline Phosphatase Total Protein Albumin Active Medications Generic Name Dose Route Start Last Admin Trade Name Freq PRN Reason Stop Dose Admin Chlorhexidine Gluconate 1 applic 04/30/19 22:00 05/15/19 21:10 Hibiclens For Decolonization - TP 1 applic HS ELISSA Administration Digoxin 0.125 mg 05/12/19 11:45 05/16/19 09:39 Lanoxin Injection - IVPUSH 0.125 mg DAILY ELISSA Administration Diltiazem HCl 10 mg 05/10/19 05:04 05/10/19 08:30 Cardizem Injection - IVPUSH 10 mg Q4H PRN Administration TACHYCARDIA Docusate Sodium 200 mg 05/15/19 13:37 Colace Liquid - PO DAILY PRN CONSTIPATION Ferrous Sulfate 300 mg 05/09/19 10:00 05/16/19 09:38 Feosol NGT 300 mg BID ELISSA Administration Heparin Sodium (Porcine) 1,000 unit 05/14/19 15:27 Heparin - IVPUSH PRN PRN Heparin Heparin Sodium (Porcine) 5,000 unit 05/14/19 15:27 Heparin - IVPUSH PRN PRN Heparin Diltiazem HCl 125 mg/ Dextrose 125 mls @ 10 mls/hr 05/12/19 11:46 05/15/19 15 :00 IVPB 10 mg/hr TITR ELISSA 10 mls/hr Administration Protocol 10 MG/HR Propofol 1,000,000 mcg in 100 mls @ 3.463 mls/hr 05/13/19 08:30 05/16/19 09: 53 Diprivan - IVPB Not Given TITR ELISSA Protocol 5 MCG/KG/MIN Sodium Chloride 1,000 mls @ 75 mls/hr 05/13/19 14:15 05/15/19 17:39 1/2 Normal Saline IV 75 mls/hr ASDIR ELISSA Administration Meropenem 500 mg/ Dextrose 100 mls @ 200 mls/hr 05/13/19 18:00 05/16/19 05:15 IVPB 200 mls/hr Q12H ELISSA Administration Dexmedetomidine HCl 200 mcg/ 50 mls @ 5.93 mls/hr 05/14/19 07:30 05/16/19 09: 53 Sodium Chloride IVPB 0 mcg/kg/hr TITR ELISSA 0 mls/hr Infusion 0.2 MCG/KG/HR HEPARIN SOD,PORK IN 0.45% NACL 25,000 units in 500 mls @ 20 mls/hr 05/14/19 15 :30 05/15/19 14:00 Heparin-1/2ns 25,000 Units/500 IVPB 1,150 units/hr TITR ELISSA 23 mls/hr Administration Protocol 1,000 UNITS/HR Norepinephrine Bitartrate 8, 500 mls @ 15 mls/hr 05/14/19 16:45 05/15/19 16: 42 000 mcg/ Sodium Chloride IV Not Given TITR ELISSA Protocol 4 MCG/MIN Insulin Aspart 1 vial 05/13/19 00:00 05/16/19 09:54 Novolog Vial Sliding Scale - SQ 6 units Q4H ELISSA Administration Protocol Insulin Detemir 20 units 05/13/19 22:15 05/16/19 06:52 Levemir Vial SQ 20 units BID@0700,2200 ELISSA Administration Ipratropium [place] 1 amp 05/10/19 11:29 05/12/19 22:00 Atrovent 0.02% Nebulizer - NEB 05/17/19 11:29 1 amp Q6H PRN Administration DYSPEPSIA Metoprolol Tartrate 5 mg 04/30/19 08:57 05/10/19 08:43 Lopressor Injection - IVPUSH 5 mg Q4H PRN Administration TACHYCARDIA Metoprolol Tartrate 25 mg 05/16/19 14:00 Lopressor - GT TID [facility] Pantoprazole Sodium 40 mg 05/14/19 10:00 05/16/19 09:39 Protonix Iv IVPUSH 40 mg DAILY [facility] Administration Polyethylene Glycol 17 gm 05/16/19 11:45 Miralax (For Daily Use) - PO DAILY [facility] Thiamine HCl 200 mg 05/13/19 10:00 05/16/19 09:39 Vitamin B1 Injection - IVPB 200 mg DAILY ELISSA Administration ASSESSMENT/PLAN: 53 M PMH DMII, HFpEF (last EF 45-50%), EMMY (non-adherent to CPAP) and atrial flutter, with acute hypoxic hypercapneic respiratory failure, found to have ARDS. Patient was extubated, and required reintubation due to mental status. Neuro: -Awake and alert when sedation is held -CT head shows no acute hemorrhage or infarcts -Bedside EEG done today, F/U results -Bedside EMG shows no evidence of myopathy. Cannot rule out myopathic process. -Sedated on Precedex and Propofol Cardiovascular: -Hx of aflutter, HFpEF -Patient was HD unstable, currently maintaining MAP on own. -Levophed d/c -Aflutter- patient was tachycardic to 150. -Started on Diltiazem drip. Continue -Spoke with extrusion bender that sees as outpatient- recommended cardioversion, but has failed in the past x2. -Continue Heparin drip -Cardiology consulted, appreciate recs Pulmonary: -acute hypoxic and hypercapneic respiratory failure, presenting with ARDS -intubated, vent settings 350/30/10/40$ -Solumedrol 40 mg IV d/c -Atrovent nebulizer PRN Renal: -Hyperkalemia -F/U repeat bmp -Nepro diet to reduce Potassium -Hypernatremia resolving -D/C fluids -Creatinine 1.6 -Free water replacement via NG tube- 250 cc Water Q6H GI: - Protonix 40 mg IV daily - tube feeds ID: - s/p Zosyn, 1 dose vanc - fever of 100.6 on 05/13, repeat cultures sent -ESBL in sputum - now on meropenem, started 05/13 - ID following (Dr. Garcia) Endo: - BGM remains elevated- Insulin drip started. F: No standing IVF E: Trend K N: Nepro Tube Feeds DVT: Heparin drip GI: Protonix Dispo: - Continue ICU level of care, family requests transfer to [place]. Visit type - Emergency Visit Emergency Visit: Yes ED Registration Date: 04/30/19 Care time: The patient presented to the Emergency Department on the above date and was hospitalized for further evaluation of their emergent condition. - New Patient This patient is new to me today: No - Critical Care Critical Care patient: Yes Total Critical Care Time (in minutes): 35 Critical Care Statement: The care of this patient involved high complexity decision making to prevent further life threatening deterioration of the patient 's condition and/or to evaluate & treat vital organ system(s) failure or risk of failure. ATTENDING PHYSICIAN STATEMENT I saw and evaluated the patient. I reviewed the resident's note and discussed the case with the resident. I agree with the resident's findings and plan as documented. SUBJECTIVE: OBJECTIVE: ASSESSMENT AND PLAN:
[2019-05-16] MEDS: DILTIAZEM INJECTION 125 MG in DEXTROSE 5%-WATER - 100 ML IVPB SCH (12:00)
[2019-05-16] MEDS: POLYETHYLENE GLYCOL 3350 119 GM BTL PO SCH (14:00)
[2019-05-16] MEDS: DOCUSATE NA 100 MG/10 ML UNIT-DOSE CUPS PO PRN (14:28)
[2019-05-16] MEDS ORDERED: INSULIN REGULAR 100 UNITS in SODIUM CHLORIDE 99 ML IVPB SCH (14:45)
[2019-05-16] MEDS ORDERED: PROPOFOL 1,000,000 MCG/100 ML VIAL ONE (14:55)
[2019-05-16] MEDS: HEPARIN SOD,PORK IN 0.45% NACL 25,000 UNITS/500 ML INFUS.BAG IVPB SCH (15:31)
--- NOTE | 2019-05-16 16:19 | PN ---
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, Physician History of Present Illness: SEDATED ON VENTILATOR LOW GRADE NOTED SPUTUM C/S ESBL REPEAT BC NO GROWTH AZOTEMIA IMPROVED - Current Medication List Current Medications: Active Medications Chlorhexidine Gluconate (Hibiclens For Decolonization -) 1 applic TP HS ELISSA Last Admin: 05/15/19 21:10 Dose: 1 applic Digoxin (Lanoxin Injection -) 0.125 mg IVPUSH DAILY ELISSA Last Admin: 05/16/19 09:39 Dose: 0.125 mg Diltiazem HCl (Cardizem Injection -) 10 mg IVPUSH Q4H PRN PRN Reason: TACHYCARDIA Last Admin: 05/10/19 08:30 Dose: 10 mg Docusate Sodium (Colace Liquid -) 200 mg PO DAILY PRN PRN Reason: CONSTIPATION Last Admin: 05/16/19 14:28 Dose: 200 mg Ferrous Sulfate (Feosol) 300 mg NGT BID ELISSA Last Admin: 05/16/19 09:38 Dose: 300 mg Heparin Sodium (Porcine) (Heparin -) 1,000 unit IVPUSH PRN PRN PRN Reason: Heparin Heparin Sodium (Porcine) (Heparin -) 5,000 unit IVPUSH PRN PRN PRN Reason: Heparin Diltiazem HCl 125 mg/ Dextrose 125 mls @ 10 mls/hr IVPB TITR [facility]; Protocol Last Titration: 05/16/19 15:30 Dose: 8 mg/hr, 8 mls/hr Propofol (Diprivan -) 1,000,000 mcg in 100 mls @ 3.463 mls/hr IVPB TITR [facility]; Protocol Last Admin: 05/16/19 15:27 Dose: 10 mcg/kg/min, 6.926 mls/hr Meropenem 500 mg/ Dextrose 100 mls @ 200 mls/hr IVPB Q12H ELISSA Last Admin: 05/16/19 05:15 Dose: 200 mls/hr Dexmedetomidine HCl 200 mcg/ (Sodium Chloride) 50 mls @ 5.93 mls/hr IVPB TITR ELISSA Last Admin: 05/16/19 11:00 Dose: 0.44 mcg/kg/hr, 13.1 mls/hr HEPARIN SOD,P[place] IN 0.45% NACL (Heparin-1/2ns 25,000 Units/500) 25,000 units in 500 mls @ 20 mls/hr IVPB TITR [facility]; Protocol Last Admin: 05/16/19 15:31 Dose: 1,150 units/hr, 23 mls/hr Norepinephrine Bitartrate 8, (000 mcg/ Sodium Chloride) 500 mls @ 15 mls/hr IV TITR ELISSA; Protocol Last Admin: 05/15/19 16:42 Dose: Not Given Insulin Human Regular 100 (units/ Sodium Chloride) 100 mls @ 11.74 mls/hr IVPB TITR [facility]; Protocol Ipratropium [place] (Atrovent 0.02% Nebulizer -) 1 amp NEB Q6H PRN PRN Reason: DYSPEPSIA Stop: 05/17/19 11:29 Last Admin: 05/12/19 22:00 Dose: 1 amp Metoprolol Tartrate (Lopressor Injection -) 5 mg IVPUSH Q4H PRN PRN Reason: TACHYCARDIA Last Admin: 05/10/19 08:43 Dose: 5 mg Metoprolol Tartrate (Lopressor -) 25 mg GT TID [facility] Last Admin: 05/16/19 14:26 Dose: 25 mg Pantoprazole Sodium (Protonix Iv) 40 mg IVPUSH DAILY [facility] Last Admin: 05/16/19 09:39 Dose: 40 mg Polyethylene Glycol (Miralax (For Daily Use) -) 17 gm PO DAILY ELISSA Last Admin: 05/16/19 14:00 Dose: 17 grams Thiamine HCl (Vitamin B1 Injection -) 200 mg IVPB DAILY [facility] Last Admin: 05/16/19 09:39 Dose: 200 mg - Objective Vital Signs: Vital Signs Temperature 100.3 F H 05/16/19 14:00 Pulse Rate 83 05/16/19 15:30 Respiratory Rate 48 H 05/16/19 14:00 Blood Pressure 116/69 05/16/19 15:30 O2 Sat by Pulse Oximetry (%) 98 05/16/19 11:38 Constitutional: Yes: No Distress, Obese Eyes: Yes: Conjunctiva Clear Cardiovascular: Yes: Regular Rate and Rhythm, S1, S2 Respiratory: Yes: Mechanically Ventilated Gastrointestinal: Yes: Normal Bowel Sounds, Soft. No: Tenderness Edema: Yes Labs: CBC, BMP 05/16/19 05:00 05/16/19 05:00 INR, PTT INR 1.09 (0.83-1.09) 05/05/19 05:30 Assessment/Plan RESP FAILURE S/P RE-INTUBATION CHF/ PNEUMONIA + SPUTUM C/S ESBL RENAL FAILURE IMPROVED CONTINUE VENTILATORY/ HEMODYNAMIC SUPPORT CONTINUE MEROPENEM ADJUST FOR IMPROVED RENAL FUNCTION
--- NOTE | 2019-05-16 17:23 | PN ---
Physical Exam: SUBJECTIVE: Patient seen and examined. Patient on sedation vacation with improving mental status. Still intubated. OBJECTIVE: Vital Signs Period Temp Pulse Resp BP Sys/[place] Pulse Ox Last 24 Hr 98.2 F-100.3 F 40-130 30-48 106-141/61-84 97-100 GENERAL: intubated, sedated HEAD: Normal with no signs of trauma. EYES: PERRL, EOMI ENT: dry mucous membranes NECK: Trachea midline, supple, Right IJ central line in place LUNGS: diminished breath sounds at bases, no accessory muscle use HEART: RRR, no murmur noted ABDOMEN: obese, soft, nontender, normoactive bowel sounds EXTREMITIES: 2+ pulses, warm, well-perfused. trace edema of bilateral lower extremities SKIN: Warm, dry, normal turgor NEURO: When off sedation: able to squeeze hands, slightly stronger documentation specialist on right vs left. able to wiggle toes on both lower extremities. tracks movement in room. follows basic commands. Laboratory Results - last 24 hr 05/15/19 05/15/19 05/16/19 18:03 20:00 05:00 WBC 4.6 RBC 4.32 Hgb 10.7 L Hct 35.8 MCV 83.0 MCH 24.8 L MCHC 29.9 L RDW 19.4 H Plt Count 138 D MPV 10.3 PTT (Actin FS) Sodium 148 H Potassium 5.2 H Chloride 115 H Carbon Dioxide 30 Anion Gap 4 L BUN 77.9 H Creatinine 1.6 H Est GFR (CKD-EPI)AfAm 56.97 Est GFR (CKD-EPI)NonAf 49.15 POC Glucometer 280 Random Glucose 369 H Calcium 8.8 Phosphorus Magnesium Total Bilirubin AST ALT Alkaline Phosphatase Total Protein Albumin 05/16/19 05/16/19 05/16/19 05:00 05:00 05:23 WBC RBC Hgb Hct MCV MCH MCHC RDW Plt Count MPV PTT (Actin FS) 61.1 H Sodium 149 H Potassium 5.2 H Chloride 115 H Carbon Dioxide 30 Anion Gap 4 L BUN 75.6 H Creatinine 1.6 H Est GFR (CKD-EPI)AfAm 56.97 Est GFR (CKD-EPI)NonAf 49.15 POC Glucometer 327 Random Glucose 366 H Calcium 8.7 Phosphorus 2.9 Magnesium 2.3 Total Bilirubin 0.4 AST 176 H ALT 313 H Alkaline Phosphatase 107 Total Protein 5.4 L Albumin 2.3 L 05/16/19 05/16/19 05/16/19 09:48 14:18 17:19 WBC RBC Hgb Hct MCV MCH MCHC RDW Plt Count MPV PTT (Actin FS) Sodium Potassium Chloride Carbon Dioxide Anion Gap BUN Creatinine Est GFR (CKD-EPI)AfAm Est GFR (CKD-EPI)NonAf POC Glucometer 290 272 227 Random Glucose Calcium Phosphorus Magnesium Total Bilirubin AST ALT Alkaline Phosphatase Total Protein Albumin Active Medications Generic Name Dose Route Start Last Admin Trade Name Freq PRN Reason Stop Dose Admin Chlorhexidine Gluconate 1 applic 04/30/19 22:00 05/15/19 21:10 Hibiclens For Decolonization - TP 1 applic HS ELISSA Administration Digoxin 0.125 mg 05/12/19 11:45 05/16/19 09:39 Lanoxin Injection - IVPUSH 0.125 mg DAILY ELISSA Administration Diltiazem HCl 10 mg 05/10/19 05:04 05/10/19 08:30 Cardizem Injection - IVPUSH 10 mg Q4H PRN Administration TACHYCARDIA Docusate Sodium 200 mg 05/15/19 13:37 05/16/19 14:28 Colace Liquid - PO 200 mg DAILY PRN Administration CONSTIPATION Ferrous Sulfate 300 mg 05/09/19 10:00 05/16/19 09:38 Feosol NGT 300 mg BID ELISSA Administration Heparin Sodium (Porcine) 1,000 unit 05/14/19 15:27 Heparin - IVPUSH PRN PRN Heparin Heparin Sodium (Porcine) 5,000 unit 05/14/19 15:27 Heparin - IVPUSH PRN PRN Heparin Diltiazem HCl 125 mg/ Dextrose 125 mls @ 10 mls/hr 05/12/19 11:46 05/16/19 15 :30 IVPB 8 mg/hr TITR ELISSA 8 mls/hr Titration Protocol 10 MG/HR Propofol 1,000,000 mcg in 100 mls @ 3.463 mls/hr 05/13/19 08:30 05/16/19 15: 27 Diprivan - IVPB 10 mcg/kg/min TITR ELISSA 6.926 mls/hr Administration Protocol 5 MCG/KG/MIN Dexmedetomidine HCl 200 mcg/ 50 mls @ 5.93 mls/hr 05/14/19 07:30 05/16/19 11: 00 Sodium Chloride IVPB 0.44 mcg/kg/hr TITR ELISSA 13.1 mls/hr Administration 0.2 MCG/KG/HR HEPARIN SOD,[place] IN 0.45% NACL 25,000 units in 500 mls @ 20 mls/hr 05/14/19 15 :30 05/16/19 15:31 Heparin-1/2ns 25,000 Units/500 IVPB 1,150 units/hr TITR ELISSA 23 mls/hr Administration Protocol 1,000 UNITS/HR Insulin Human Regular 100 100 mls @ 11.74 mls/hr 05/16/19 14:45 units/ Sodium Chloride IVPB TITR ELISSA Protocol 0.1 UNITS/KG/HR Meropenem 500 mg/ Dextrose 100 mls @ 200 mls/hr 05/16/19 18:00 IVPB Q8H-IV ELISSA Ipratropium [place] 1 amp 05/10/19 11:29 05/12/19 22:00 Atrovent 0.02% Nebulizer - NEB 05/17/19 11:29 1 amp Q6H PRN Administration DYSPEPSIA Metoprolol Tartrate 5 mg 04/30/19 08:57 05/10/19 08:43 Lopressor Injection - IVPUSH 5 mg Q4H PRN Administration TACHYCARDIA Metoprolol Tartrate 25 mg 05/16/19 14:00 05/16/19 14:26 Lopressor - GT 25 mg TID ELISSA Administration Pantoprazole Sodium 40 mg 05/14/19 10:00 05/16/19 09:39 Protonix Iv IVPUSH 40 mg DAILY ELISSA Administration Polyethylene Glycol 17 gm 05/16/19 11:45 05/16/19 14:00 Miralax (For Daily Use) - PO 17 grams DAILY ELISSA Administration Thiamine HCl 200 mg 05/13/19 10:00 05/16/19 09:39 Vitamin B1 Injection - IVPB 200 mg DAILY ELISSA Administration ASSESSMENT/PLAN: 53 y/o/m with PMHx of DM2, HFpEF(last EF: 45-50%), 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 #Acute Hypoxic and Hypercapneic Respiratory Failure/ EMMY - extubated on 05/09, re-intubated on 05/13 - Pulm consulted - Hans RQID - Solumedrol discontinued - Follow CXRs - Abx coverage broadened as per ID to Meropenem. Zosyn discontinued - Azithromycin and Vancomycin discontinued - ID consulted (Dr. 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 There is no evidence of myopathy, although given that patient was unable to participate, cannot rule out myopathic process" - Head CT - negative for acute pathology - unable to complete MRI due to non-MRI compatible vents - Neuro Consulted (Dr. Pleitez). EEG completed #HFpEF vs. Cardiogenic shock - Lasix discontinued - Strict Is & Os, daily weights - ECHO - EF of 55-60%, no significant abnormalities noted, no vegetations - Cardiology Consult (Dr. Encinas) - Off pressors, BP stable - Cardio recommends cardiac PET or MRI to exclude cardiac involvement in sarcoidosis as outpatient. F/u with Dr. Genaro Davila at [place] #Atrial Flutter - Cardizem drip for rate control. Amiodarone drip discontinued - Digoxin 0.125mg daily, 0.25mg given once for loading dose - Lopressor 25mg BID ELISSA via NGtube, Lopressor 5mg IV Q4H PRN - Cardizem 10mg IV Q4H PRN - Heparin drip #RYNE on CKD w/ Hyperkalemia - Monitor BUN/Cr levels, baseline Cr ~1.5 - Renal function improved, Cr now at 1.6 - Nephrology Consulted (Dr. Kelley) - Likely secondary to volume overload. Pt. likely has CKD given risk factors of DM2 (uncontrolled glucose) and Heart Failure - 1IVF discontinued, will continue free fluid through NG tube - Hold Lisinopril, restart 10mg QD once improved renal function, BP - K+ elevated to 5.2, will switch patient to Nepro feeds #DM2 - BGM - ISS - Levemir discontinued - Insulin drip restarted #FEN - IVF discontinued, continue free water fluid via NG tube - monitor and replete lytes as needed - NG tube inserted, tube feeds to goal. Feeds changed to Nepro due to elevated 5.2 #Prophylaxis - Heparin Drip - Protonix #Disposition - Continue ICU monitoring, unable to transfer patient to [place] at this time. Visit type - Emergency Visit Emergency Visit: Yes ED Registration Date: 04/30/19 Care time: The patient presented to the Emergency Department on the above date and was hospitalized for further evaluation of their emergent condition. - New Patient This patient is new to me today: No - Critical Care Critical Care patient: Yes Total Critical Care Time (in minutes): 36 Critical Care Statement: The care of this patient involved high complexity decision making to prevent further life threatening deterioration of the patient 's condition and/or to evaluate & treat vital organ system(s) failure or risk of failure. ATTENDING PHYSICIAN STATEMENT I saw and evaluated the patient. I reviewed the resident's note and discussed the case with the resident. I agree with the resident's findings and plan as documented. SUBJECTIVE: OBJECTIVE: ASSESSMENT AND PLAN:
--- NOTE | 2019-05-16 18:25 | PN ---
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, Physician History of Present Illness: Pt seen and examined at bedside. He remains in the ICU. He remains intubated. - Current Medication List Current Medications: Active Medications Chlorhexidine Gluconate (Hibiclens For Decolonization -) 1 applic TP HS [facility] Last Admin: 05/15/19 21:10 Dose: 1 applic Digoxin (Lanoxin Injection -) 0.125 mg IVPUSH DAILY [facility] Last Admin: 05/16/19 09:39 Dose: 0.125 mg Diltiazem HCl (Cardizem Injection -) 10 mg IVPUSH Q4H PRN PRN Reason: TACHYCARDIA Last Admin: 05/10/19 08:30 Dose: 10 mg Docusate Sodium (Colace Liquid -) 200 mg PO DAILY PRN PRN Reason: CONSTIPATION Last Admin: 05/16/19 14:28 Dose: 200 mg Ferrous Sulfate (Feosol) 300 mg NGT BID [facility] Last Admin: 05/16/19 09:38 Dose: 300 mg Heparin Sodium (Porcine) (Heparin -) 1,000 unit IVPUSH PRN PRN PRN Reason: Heparin Heparin Sodium (Porcine) (Heparin -) 5,000 unit IVPUSH PRN PRN PRN Reason: Heparin Diltiazem HCl 125 mg/ Dextrose 125 mls @ 10 mls/hr IVPB TITR [facility]; Protocol Last Titration: 05/16/19 17:59 Dose: 6 mg/hr, 6 mls/hr Propofol (Diprivan -) 1,000,000 mcg in 100 mls @ 3.463 mls/hr IVPB TITR [facility]; Protocol Last Admin: 05/16/19 15:27 Dose: 10 mcg/kg/min, 6.926 mls/hr Dexmedetomidine HCl 200 mcg/ (Sodium Chloride) 50 mls @ 5.93 mls/hr IVPB TITR [facility] Last Admin: 05/16/19 11:00 Dose: 0.44 mcg/kg/hr, 13.1 mls/hr HEPARIN SOD,PORK IN 0.45% NACL (Heparin-1/2ns 25,000 Units/500) 25,000 units in 500 mls @ 20 mls/hr IVPB TITR [facility]; Protocol Last Admin: 05/16/19 15:31 Dose: 1,150 units/hr, 23 mls/hr Insulin Human Regular 100 (units/ Sodium Chloride) 100 mls @ 11.74 mls/hr IVPB TITR [facility]; Protocol Last Admin: 05/16/19 18:00 Dose: 0.01 units/kg/hr, 2.3 mls/hr Meropenem 500 mg/ Dextrose 100 mls @ 200 mls/hr IVPB Q8H-IV [facility] Last Admin: 05/16/19 18:00 Dose: 200 mls/hr Ipratropium [place] (Atrovent 0.02% Nebulizer -) 1 amp NEB Q6H PRN PRN Reason: DYSPEPSIA Stop: 05/17/19 11:29 Last Admin: 05/12/19 22:00 Dose: 1 amp Metoprolol Tartrate (Lopressor Injection -) 5 mg IVPUSH Q4H PRN PRN Reason: TACHYCARDIA Last Admin: 05/10/19 08:43 Dose: 5 mg Metoprolol Tartrate (Lopressor -) 25 mg GT TID [facility] Last Admin: 05/16/19 14:26 Dose: 25 mg Pantoprazole Sodium (Protonix Iv) 40 mg IVPUSH DAILY [facility] Last Admin: 05/16/19 09:39 Dose: 40 mg Polyethylene Glycol (Miralax (For Daily Use) -) 17 gm PO DAILY [facility] Last Admin: 05/16/19 14:00 Dose: 17 grams Thiamine HCl (Vitamin B1 Injection -) 200 mg IVPB DAILY [facility] Last Admin: 05/16/19 09:39 Dose: 200 mg - Objective Vital Signs: Vital Signs Temperature 100.3 F H 05/16/19 14:00 Pulse Rate 83 05/16/19 17:59 Respiratory Rate 32 H 05/16/19 16:05 Blood Pressure 124/73 05/16/19 17:59 O2 Sat by Pulse Oximetry (%) 98 05/16/19 11:38 Constitutional: Yes: Calm Eyes: Yes: Conjunctiva Clear HENT: Yes: Atraumatic Cardiovascular: Yes: S1, S2 Respiratory: Yes: Mechanically Ventilated Gastrointestinal: Yes: Soft, Abdomen, Obese Genitourinary: Yes: Andrews Present Musculoskeletal: Yes: Muscle Weakness Edema: Yes Edema: LUE: 1+, RUE: 1+ Integumentary: Yes: Venous Stasis Changes Neurological: Yes: Lethargy Labs: CBC, BMP 05/16/19 05:00 05/16/19 05:00 INR, PTT INR 1.09 (0.83-1.09) 05/05/19 05:30 - ....Imaging Chest X-ray: Report Reviewed Problem List - Problems (1) Acute decompensated heart failure Code(s): I50.9 - HEART FAILURE, UNSPECIFIED (2) Atrial fibrillation and flutter Code(s): I48.91 - UNSPECIFIED ATRIAL FIBRILLATION; I48.92 - UNSPECIFIED ATRIAL FLUTTER (3) Hyperkalemia Code(s): E87.5 - HYPERKALEMIA (4) Pneumonia Code(s): J18.9 - PNEUMONIA, UNSPECIFIED ORGANISM Qualifiers: Pneumonia type: due to unspecified organism (5) Sarcoidosis of other sites Code(s): D86.89 - SARCOIDOSIS OF OTHER SITES Assessment/Plan Current Medications Generic Name Dose Route Start Last Admin Trade Name Freq PRN Reason Stop Dose Admin Chlorhexidine Gluconate 1 applic 04/30/19 22:00 05/15/19 21:10 Hibiclens For Decolonization - TP 1 applic HS [facility] Administration Digoxin 0.125 mg 05/12/19 11:45 05/16/19 09:39 Lanoxin Injection - IVPUSH 0.125 mg DAILY [facility] Administration Diltiazem HCl 10 mg 05/10/19 05:04 05/10/19 08:30 Cardizem Injection - IVPUSH 10 mg Q4H PRN Administration TACHYCARDIA Docusate Sodium 200 mg 05/15/19 13:37 05/16/19 14:28 Colace Liquid - PO 200 mg DAILY PRN Administration CONSTIPATION Ferrous Sulfate 300 mg 05/09/19 10:00 05/16/19 09:38 Feosol NGT 300 mg BID [facility] Administration Heparin Sodium (Porcine) 1,000 unit 05/14/19 15:27 Heparin - IVPUSH PRN PRN Heparin Heparin Sodium (Porcine) 5,000 unit 05/14/19 15:27 Heparin - IVPUSH PRN PRN Heparin Diltiazem HCl 125 mg/ Dextrose 125 mls @ 10 mls/hr 05/12/19 11:46 05/16/19 17 :59 IVPB 6 mg/hr TITR [facility] 6 mls/hr Titration Protocol 10 MG/HR Propofol 1,000,000 mcg in 100 mls @ 3.463 mls/hr 05/13/19 08:30 05/16/19 15: 27 Diprivan - IVPB 10 mcg/kg/min TITR [facility] 6.926 mls/hr Administration Protocol 5 MCG/KG/MIN Dexmedetomidine HCl 200 mcg/ 50 mls @ 5.93 mls/hr 05/14/19 07:30 05/16/19 11: 00 Sodium Chloride IVPB 0.44 mcg/kg/hr TITR [facility] 13.1 mls/hr Administration 0.2 MCG/KG/HR HEPARIN SOD,PORK IN 0.45% NACL 25,000 units in 500 mls @ 20 mls/hr 05/14/19 15 :30 05/16/19 15:31 Heparin-1/2ns 25,000 Units/500 IVPB 1,150 units/hr TITR [facility] 23 mls/hr Administration Protocol 1,000 UNITS/HR Insulin Human Regular 100 100 mls @ 11.74 mls/hr 05/16/19 14:45 05/16/19 18: 00 units/ Sodium Chloride IVPB 0.01 units/kg/hr TITR [facility] 2.3 mls/hr Administration Protocol 0.1 UNITS/KG/HR Meropenem 500 mg/ Dextrose 100 mls @ 200 mls/hr 05/16/19 18:00 05/16/19 18:00 IVPB 200 mls/hr Q8H-IV [facility] Administration Ipratropium [place] 1 amp 05/10/19 11:29 05/12/19 22:00 Atrovent 0.02% Nebulizer - NEB 05/17/19 11:29 1 amp Q6H PRN Administration DYSPEPSIA Metoprolol Tartrate 5 mg 04/30/19 08:57 05/10/19 08:43 Lopressor Injection - IVPUSH 5 mg Q4H PRN Administration TACHYCARDIA Metoprolol Tartrate 25 mg 05/16/19 14:00 05/16/19 14:26 Lopressor - GT 25 mg TID [facility] Administration Pantoprazole Sodium 40 mg 05/14/19 10:00 05/16/19 09:39 Protonix Iv IVPUSH 40 mg DAILY [facility] Administration Polyethylene Glycol 17 gm 05/16/19 11:45 05/16/19 14:00 Miralax (For Daily Use) - PO 17 grams DAILY [facility] Administration Thiamine HCl 200 mg 05/13/19 10:00 05/16/19 09:39 Vitamin B1 Injection - IVPB 200 mg DAILY [facility] Administration Impression 1. RYNE 2. hyperkalemia 3. resp failure requiring intubation 4. resp acidosis 5. dm 6. hx htn 7. sleep apnea 8. obesity 9. hx non compliance 10. chf 11. sarcoid 12. volume overload 13. hypernatremia Plan - cont free water with feeds, will increase - consider stopping fluids - change feed to nepro - monitor potassium - mix drips in hypotonic fluids - monitor sodium - discussed with ICU team
[2019-05-16 21:50] LABS: BLOOD UREA NITROGEN 60.4 mg/dL (7-18); CALCIUM 8.5 mg/dL (8.5-10.1); CREATININE 1.5 mg/dL (0.55-1.3); POTASSIUM 4.9 mmol/L (3.5-5.1)
[2019-05-16] MEDS ORDERED: ASPIRIN 325 MG ENTERIC COATED TABLET (FP) PO ONE (22:03)
[2019-05-16] MEDS: CHLORHEXIDINE GLUCONATE 4% CLEANSER FOR DECOLONIZATION TP SCH (22:39)
[2019-05-16] MEDS ORDERED: ASPIRIN 325 MG TABLET PO ONE (22:47)
[2019-05-16] MEDS ORDERED: MORPHINE SULFATE 2 MG/ML VIAL IVPUSH PRN (22:58)
[2019-05-17] MEDS: MEROPENEM 500 MG in DEXTROSE 5%-WATER 100 ML IVPB SCH ×3 (03:00→17:41)
[2019-05-17] MEDS ORDERED: DEXTROSE 5%-WATER 100 ML IVPB ONE ×3 (03:10→17:33)
[2019-05-17] MEDS ORDERED: MEROPENEM 500 MG VIAL (RESTRICTED TO ID) IVPB ONE ×3 (03:10→17:33)
[2019-05-17] MEDS ORDERED: PROPOFOL 1,000,000 MCG/100 ML VIAL ONE (06:09)
[2019-05-17] MEDS: METOPROLOL TARTRATE 25 MG TABLET (FP) GT SCH ×3 (06:48→21:22)
[2019-05-17] MEDS: INSULIN SLIDING SCALE (NOVOLOG) 1 VIAL SQ SCH ×5 (07:24→23:42)
[2019-05-17 07:28] LABS: BASO % 0.2 % (0-2.0); EOS % 0.3 % (0-4.5); HEMATOCRIT 33.6 % (35.4-49); HEMOGLOBIN 10.2 GM/dL (11.7-16.9); LYMPH % 6.3 % (8-40); MCH 24.7 pg (25.7-33.7); MCHC 30.3 g/dl (32.0-35.9); MEAN CELL VOLUME 81.5 fl (80-96); MEAN PLT VOLUME 10.8 fl (7.5-11.1); MONO % 5.5 % (3.8-10.2); NEUT % 87.7 % (42.8-82.8); PLATELET COUNT 125 K/MM3 (134-434); RBC 4.13 M/mm3 (4.00-5.60); WHITE BLOOD COUNT 5.7 K/mm3 (4.0-10.0)
--- NOTE | 2019-05-17 07:28 | PN ---
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 (short form) - Note 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: PULM/CCM Pt Seen & Examined in the ICU. Opens eyes to voice -remains Sedated on AC Mode of Vent. Active Medications Chlorhexidine Gluconate (Hibiclens For Decolonization -) 1 applic TP HS [facility] Last Admin: 05/16/19 22:39 Dose: 1 applic Digoxin (Lanoxin Injection -) 0.125 mg IVPUSH DAILY [facility] Last Admin: 05/17/19 10:39 Dose: 0.125 mg Diltiazem HCl (Cardizem Injection -) 10 mg IVPUSH Q4H PRN PRN Reason: TACHYCARDIA Last Admin: 05/10/19 08:30 Dose: 10 mg Docusate Sodium (Colace Liquid -) 200 mg PO DAILY PRN PRN Reason: CONSTIPATION Last Admin: 05/16/19 14:28 Dose: 200 mg Ferrous Sulfate (Feosol) 300 mg NGT BID [facility] Last Admin: 05/17/19 10:39 Dose: 300 mg Heparin Sodium (Porcine) (Heparin -) 1,000 unit IVPUSH PRN PRN PRN Reason: Heparin Heparin Sodium (Porcine) (Heparin -) 5,000 unit IVPUSH PRN PRN PRN Reason: Heparin Diltiazem HCl 125 mg/ Dextrose 125 mls @ 10 mls/hr IVPB TITR [facility]; Protocol Last Titration: 05/16/19 17:59 Dose: 6 mg/hr, 6 mls/hr Propofol (Diprivan -) 1,000,000 mcg in 100 mls @ 3.463 mls/hr IVPB TITR [facility]; Protocol Last Titration: 05/17/19 07:25 Dose: 40 mcg/kg/min, 27.705 mls/hr HEPARIN SOD,PORK IN 0.45% NACL (Heparin-1/2ns 25,000 Units/500) 25,000 units in 500 mls @ 20 mls/hr IVPB TITR [facility]; Protocol Last Admin: 05/17/19 10:41 Dose: 1,150 units/hr, 23 mls/hr Meropenem 500 mg/ Dextrose 100 mls @ 200 mls/hr IVPB Q8H-IV [facility] Last Admin: 05/17/19 10:39 Dose: 200 mls/hr Furosemide 100 mg/ Dextrose 100 mls @ 10 mls/hr IVPB TITR [facility] Insulin Aspart (Novolog Vial Sliding Scale -) 1 vial SQ Q4H [facility]; Protocol Last Admin: 05/17/19 07:24 Dose: Not Given Metoprolol Tartrate (Lopressor Injection -) 5 mg IVPUSH Q4H PRN PRN Reason: TACHYCARDIA Last Admin: 05/10/19 08:43 Dose: 5 mg Metoprolol Tartrate (Lopressor -) 25 mg GT TID [facility] Last Admin: 05/17/19 06:48 Dose: 25 mg Morphine Sulfate (Morphine Sulfate) 2 mg IVPUSH Q4H PRN PRN Reason: PAIN LEVEL 7 - 10 Pantoprazole Sodium (Protonix Iv) 40 mg IVPUSH DAILY [facility] Last Admin: 05/17/19 10:39 Dose: 40 mg Polyethylene Glycol (Miralax (For Daily Use) -) 17 gm PO DAILY [facility] Last Admin: 05/17/19 10:39 Dose: 17 grams Scopolamine HBr (Transderm-Scop -) 1 patch TD Q72H [facility] Thiamine HCl (Vitamin B1 Injection -) 200 mg IVPB DAILY [facility] Last Admin: 05/17/19 10:41 Dose: 200 mg Vital Signs Period Temp Pulse Resp BP Sys/[place] Pulse Ox Last 24 Hr 99.0 F-100.3 F 76-120 22-48 111-135/61-82 98-100 Intake & Output 05/14/19 05/15/19 05/16/19 05/17/19 23:59 23:59 23:59 23:59 Intake Total 2971 4708 5921.0 1117.9 Output Total 1700 2100 2300 1200 Balance 1271 2608 3621.0 -82.1 Weight 118.75 kg 117.435 kg 117.435 kg 123.196 kg GEN: Appears much older than 53 y/o, obviously unwell, grossly V/O - intubated & sedated on the Vent PULM: scattered rhonchi B/L CV: nml S1 S2, irreg/irreg, unable to appreciate any G/M/R ABD: + BS, S/S N/T N/D X4Q EXT: + Pulses, WWPX4, + edema CBC, BMP 05/17/19 05:30 05/17/19 05:30 Microbiology 05/13/19 18:30 Blood - Peripheral Venous Blood Culture - Preliminary NO GROWTH OBTAINED AFTER 72 HOURS, INCUBATION TO CONTINUE FOR 2 DAYS. 05/13/19 18:00 Blood - Central Line Blood Culture - Preliminary NO GROWTH OBTAINED AFTER 72 HOURS, INCUBATION TO CONTINUE FOR 2 DAYS. 05/13/19 18:10 Sputum - Endotrachea Suction/Ventilator Gram Stain - Final 05/13/19 18:10 Sputum - Endotrachea Suction/Ventilator Sputum Culture - Final Escherichia Coli Esbl [employer] 05/04/19 17:00 Sputum - Endotrachea Suction/Ventilator Gram Stain - Final 05/04/19 17:00 Sputum - Endotrachea Suction/Ventilator Sputum Culture - Final NORMAL RESPIRATORY ROSEMARY 05/01/19 11:09 Blood - Peripheral Venous Blood Culture - Final NO GROWTH AFTER 5 DAYS INCUBATION 05/01/19 09:00 Blood - Peripheral Venous Blood Culture - Final NO GROWTH AFTER 5 DAYS INCUBATION 04/30/19 05:05 Blood - Peripheral Venous Blood Culture - Final Staphylococcus Epidermidis Cdc Group G 04/30/19 05:05 Blood - Peripheral Venous Blood Culture - Final Staphylococcus Coagulase Neg 04/30/19 19:45 Urine For Antigen Detection Legionella Antigen - Final 04/30/19 19:45 Urine For Antigen Detection Streptococcus pneumoniae Antigen (M - Final 04/30/19 05:25 Urine - Urine - Catheterized Urine Culture - Final NO GROWTH OBTAINED ASSESS: Acute Hypoxic and Hypercapneic Respiratory Failure Pneumonia Gram Positive Bacteremia Septic Shock Volume Overload ARDS Lactic Acidosis Hyperkalemia Acute Kidney Injury Atrial Flutter with RVR HTN DM Anemia PLAN: - Cont Vent Support - Wean FiO2 as tolerated - Nebs - Diurese - SBT QD - Sedation Vacation QD to assess mental status - Abx - Rate Control - AC - Strict I's & O's - Monitor BUN/Cr - Replete e-lytes prn - FSs - SSI - TFs - DVT/GI prophylaxis - Trach - GI ppx - continue ICU monitoring [facility] ICU PULM/CCM [id number]
[2019-05-17] MEDS: SCOPOLAMINE HYDROBROMIDE 1 PATCH PATCH.TD72 TD SCH (08:00)
[2019-05-17 08:38] LABS: ALBUMIN 1.8 g/dl (3.4-5.0); BILIRUBIN,TOTAL 0.4 mg/dL (0.2-1); BLOOD UREA NITROGEN 49.8 mg/dL (7-18); CALCIUM 7.2 mg/dL (8.5-10.1); CREATININE 1.1 mg/dL (0.55-1.3); MAGNESIUM 1.6 mg/dL (1.8-2.4); POTASSIUM 3.7 mmol/L (3.5-5.1); TOT PROT 4.2 g/dl (6.4-8.2)
--- NOTE | 2019-05-17 09:20 | PN ---
Teaching Attending Note Name of Resident: Giuseppe Rm ATTENDING PHYSICIAN STATEMENT I saw and evaluated the patient. I reviewed the resident's note and discussed the case with the resident. I agree with the resident's findings and plan as documented. Seen and examined; please see resident note for further historical information. I personally verified all valadez historical information and exam findings. Personally interpreted all imaging and diagnostics and reviewed appropriate consults. I reviewed all labs and vital signs as per resident note and EMR as documented. I agree with the above assessment and plan unless supplemented by myself in the following. Patient was more alert this morning when we are attempting the weaning trial. He was on CPAP at the time of rounds, hopefully he can be extubated. Pupils remain equal. No neurologic deficits noted. Remains on medicine service with ICU consult following. 10 item review of systems completed and is negative aside from as discussed in the subjective data in my own/the resident documentation. VS, labs, imaging reviewed Intubated and sedated on ventillator resting in bed, vent settings per flowsheet ET Tube in place; IV access noted with no apparent surrounding cellulitis RRR s1/2 no mgr Normal muscle tone, moves all 5 extremities with normal apparent strength Neck is supple, trachea midline, no fernanda LN Lungs CTAB with sym expansion NT ND +BS no fernanda organomegaly CN2-12 wnl; no FND but limited given clinical circumstances. NC AT EOMI PERRLA Not agitated, cannot complete full psych assessment ASSESSMENT AND PLAN: Overall, patient is only marginally improved compared to yesterday with still some improvement noted in the mental status. Adding diltiazem p.o. and weaning off the drip alongside metoprolol and digoxin per cardiology. He remains on antibiotics and O2 support by the ventilator, off steroids. His volume status is improving diuresis as per nephrology. The patient's kidney function is remained stable. His ABG reveals persisting borderline hypoxia with mild hypercarbia. Blood counts are stable. Remains on heparin drip. Will discuss with ICU team about replacing central line. Problems include: Acute mixed respiratory failure/ARDS Atrial Fibrillation Acute kidney injury on chronic kidney disease Hyperkalemia, improved Respiratory acidosis with metabolic compensation History of uncontrolled diabetes mellitus, improved glycemic control, continue to keep under 180 History of uncontrolled hypertension, continue monitor History of sleep apnea, noncompliant with CPAP History of morbid obesity, BMI 42.6 History of noncompliance History of sarcoidosis History of diastolic CHF, diuresis as per nephrology and cardiology Hypernatremia, improved Full Code Continue to monitor in ICU; appreciate PCCM management
--- NOTE | 2019-05-17 09:24 | PN ---
Physical Exam: SUBJECTIVE: Patient seen and examined; Unable to extubate as per ICU nurse practitioner. Discussed with subspecialists. 10 system review of systems unable to be completed due to clinical condition. OBJECTIVE: Vital Signs Period Temp Pulse Resp BP Sys/[place] Pulse Ox Last 24 Hr 99.0 F-100.3 F 76-130 22-48 111-141/61-82 98-100 GENERAL: The patient is awake, alert, and fully oriented, in no acute distress. HEAD: Normal with no signs of trauma. EYES: PERRL, extraocular movements intact, sclera anicteric, conjunctiva clear. No ptosis. ENT: Ears normal, nares patent, oropharynx clear without exudates, moist mucous membranes. NECK: Trachea midline, full range of motion, supple. LUNGS: Breath sounds equal, clear to auscultation bilaterally, no wheezes, no crackles, no accessory muscle use. HEART: Regular rate and rhythm, S1, S2 without murmur, rub or gallop. ABDOMEN: Soft, nontender, nondistended, normoactive bowel sounds, no guarding, no rebound, no hepatosplenomegaly, no masses. EXTREMITIES: 2+ pulses, warm, well-perfused, no edema. NEUROLOGICAL: Cranial nerves II through XII grossly intact. Normal speech, gait not observed. PSYCH: Normal mood, normal affect. SKIN: Warm, dry, normal turgor, no rashes or lesions noted Laboratory Results - last 24 hr 05/15/19 05/16/19 05/16/19 21:00 09:48 14:18 WBC RBC Hgb Hct MCV MCH MCHC RDW Plt Count MPV Absolute Neuts (auto) Neutrophils % Lymphocytes % Monocytes % Eosinophils % Basophils % Nucleated RBC % PTT (Actin FS) Sodium Potassium Chloride Carbon Dioxide Anion Gap BUN Creatinine Est GFR (CKD-EPI)AfAm Est GFR (CKD-EPI)NonAf POC Glucometer 290 272 Random Glucose Calcium Phosphorus Magnesium Total Bilirubin AST ALT Alkaline Phosphatase Total Protein Albumin Influenza A (Rapid) Negative Influenza B (Rapid) Negative 05/16/19 05/16/19 05/16/19 17:19 20:35 21:44 WBC RBC Hgb Hct MCV MCH MCHC RDW Plt Count MPV Absolute Neuts (auto) Neutrophils % Lymphocytes % Monocytes % Eosinophils % Basophils % Nucleated RBC % PTT (Actin FS) Sodium 149 H Potassium 4.9 Chloride 116 H Carbon Dioxide 31 Anion Gap 2 L BUN 60.4 H Creatinine 1.5 H Est GFR (CKD-EPI)AfAm 61.59 Est GFR (CKD-EPI)NonAf 53.14 POC Glucometer 227 139 Random Glucose 164 H Calcium 8.5 Phosphorus Magnesium Total Bilirubin AST ALT Alkaline Phosphatase Total Protein Albumin Influenza A (Rapid) Influenza B (Rapid) 05/16/19 05/16/19 05/17/19 22:25 23:34 01:23 WBC RBC Hgb Hct MCV MCH MCHC RDW Plt Count MPV Absolute Neuts (auto) Neutrophils % Lymphocytes % Monocytes % Eosinophils % Basophils % Nucleated RBC % PTT (Actin FS) Sodium Potassium Chloride Carbon Dioxide Anion Gap BUN Creatinine Est GFR (CKD-EPI)AfAm Est GFR (CKD-EPI)NonAf POC Glucometer 148 121 125 Random Glucose Calcium Phosphorus Magnesium Total Bilirubin AST ALT Alkaline Phosphatase Total Protein Albumin Influenza A (Rapid) Influenza B (Rapid) 05/17/19 05/17/19 05/17/19 02:42 04:28 05:30 WBC RBC Hgb Hct MCV MCH MCHC RDW Plt Count MPV Absolute Neuts (auto) Neutrophils % Lymphocytes % Monocytes % Eosinophils % Basophils % Nucleated RBC % PTT (Actin FS) 73.6 H Sodium Potassium Chloride Carbon Dioxide Anion Gap BUN Creatinine Est GFR (CKD-EPI)AfAm Est GFR (CKD-EPI)NonAf POC Glucometer 124 129 Random Glucose Calcium Phosphorus Magnesium Total Bilirubin AST ALT Alkaline Phosphatase Total Protein Albumin Influenza A (Rapid) Influenza B (Rapid) 05/17/19 05/17/19 05/17/19 05:30 05:30 07:22 WBC 5.7 RBC 4.13 Hgb 10.2 L Hct 33.6 L MCV 81.5 MCH 24.7 L MCHC 30.3 L RDW 19.0 H Plt Count 125 L MPV 10.8 Absolute Neuts (auto) 5.0 Neutrophils % 87.7 H Lymphocytes % 6.3 L D Monocytes % 5.5 Eosinophils % 0.3 D Basophils % 0.2 Nucleated RBC % 0 PTT (Actin FS) Sodium 146 H Potassium 3.7 Chloride 114 H Carbon Dioxide 27 Anion Gap 4 L BUN 49.8 H Creatinine 1.1 Est GFR (CKD-EPI)AfAm 89.61 Est GFR (CKD-EPI)NonAf 77.32 POC Glucometer 122 Random Glucose 118 H Calcium 7.2 L Phosphorus 2.0 L Magnesium 1.6 L Total Bilirubin 0.4 AST 50 H ALT 193 H Alkaline Phosphatase 75 Total Protein 4.2 L Albumin 1.8 L Influenza A (Rapid) Influenza B (Rapid) Active Medications Generic Name Dose Route Start Last Admin Trade Name Freq PRN Reason Stop Dose Admin Chlorhexidine Gluconate 1 applic 04/30/19 22:00 05/16/19 22:39 Hibiclens For Decolonization - TP 1 applic HS [facility] Administration Digoxin 0.125 mg 05/12/19 11:45 05/16/19 09:39 Lanoxin Injection - IVPUSH 0.125 mg DAILY [facility] Administration Diltiazem HCl 10 mg 05/10/19 05:04 05/10/19 08:30 Cardizem Injection - IVPUSH 10 mg Q4H PRN Administration TACHYCARDIA Docusate Sodium 200 mg 05/15/19 13:37 05/16/19 14:28 Colace Liquid - PO 200 mg DAILY PRN Administration CONSTIPATION Ferrous Sulfate 300 mg 05/09/19 10:00 05/16/19 22:39 Feosol NGT 300 mg BID [facility] Administration Heparin Sodium (Porcine) 1,000 unit 05/14/19 15:27 Heparin - IVPUSH PRN PRN Heparin Heparin Sodium (Porcine) 5,000 unit 05/14/19 15:27 Heparin - IVPUSH PRN PRN Heparin Diltiazem HCl 125 mg/ Dextrose 125 mls @ 10 mls/hr 05/12/19 11:46 05/16/19 17 :59 IVPB 6 mg/hr TITR [facility] 6 mls/hr Titration Protocol 10 MG/HR Propofol 1,000,000 mcg in 100 mls @ 3.463 mls/hr 05/13/19 08:30 05/17/19 07: 25 Diprivan - IVPB 40 mcg/kg/min TITR [facility] 27.705 mls/hr Titration Protocol 5 MCG/KG/MIN HEPARIN SOD,P[place] IN 0.45% NACL 25,000 units in 500 mls @ 20 mls/hr 05/14/19 15 :30 05/16/19 15:31 Heparin-1/2ns 25,000 Units/500 IVPB 1,150 units/hr TITR [facility] 23 mls/hr Administration Protocol 1,000 UNITS/HR Meropenem 500 mg/ Dextrose 100 mls @ 200 mls/hr 05/16/19 18:00 05/17/19 03:00 IVPB 200 mls/hr Q8H-IV [facility] Administration Insulin Aspart 1 vial 05/17/19 07:30 05/17/19 07:24 Novolog Vial Sliding Scale - SQ Not Given Q4H [facility] Protocol Metoprolol Tartrate 5 mg 04/30/19 08:57 05/10/19 08:43 Lopressor Injection - IVPUSH 5 mg Q4H PRN Administration TACHYCARDIA Metoprolol Tartrate 25 mg 05/16/19 14:00 05/17/19 06:48 Lopressor - GT 25 mg TID [facility] Administration Morphine Sulfate 2 mg 05/16/19 22:58 Morphine Sulfate IVPUSH Q4H PRN PAIN LEVEL 7 - 10 Pantoprazole Sodium 40 mg 05/14/19 10:00 05/16/19 09:39 Protonix Iv IVPUSH 40 mg DAILY [facility] Administration Polyethylene Glycol 17 gm 05/16/19 11:45 05/16/19 14:00 Miralax (For Daily Use) - PO 17 grams DAILY [facility] Administration Scopolamine HBr 1 patch 05/17/19 05:15 Transderm-Scop - TD Q72H [facility] Thiamine HCl 200 mg 05/13/19 10:00 05/16/19 09:39 Vitamin B1 Injection - IVPB 200 mg DAILY [facility] Administration ASSESSMENT/PLAN: Overall, patient is only marginally improved compared to yesterday with still some improvement noted in the mental status. Adding diltiazem p.o. and weaning off the drip alongside metoprolol and digoxin per cardiology. He remains on antibiotics and O2 support by the ventilator, off steroids. His volume status is improving diuresis as per nephrology. The patient's kidney function is remained stable. His ABG reveals persisting borderline hypoxia with mild hypercarbia. Blood counts are stable. Remains on heparin drip. Will discuss with ICU team about replacing central line. Problems include: Acute mixed respiratory failure/ARDS Atrial Fibrillation Acute kidney injury on chronic kidney disease Hyperkalemia, improved Respiratory acidosis with metabolic compensation History of uncontrolled diabetes mellitus, improved glycemic control, continue to keep under 180 History of uncontrolled hypertension, continue monitor History of sleep apnea, noncompliant with CPAP History of morbid obesity, BMI 42.6 History of noncompliance History of sarcoidosis History of diastolic CHF, diuresis as per nephrology and cardiology Hypernatremia, improved Full Code Continue to monitor in ICU; appreciate PCCM management Visit type - Emergency Visit Emergency Visit: Yes ED Registration Date: 04/30/19 Care time: The patient presented to the Emergency Department on the above date and was hospitalized for further evaluation of their emergent condition. - New Patient This patient is new to me today: No - Critical Care Critical Care patient: No
[2019-05-17] MEDS ORDERED: PT OWN MED DRAWER 7, Y5N ONE ×2 (09:43→19:56)
--- NOTE | 2019-05-17 10:02 | PN ---
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 (short form) - Note 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: remains intubated and sedated fi02 40% Vital Signs Period Temp Pulse Resp BP Sys/Kenyon Pulse Ox Last 24 Hr 99.0 F-100.3 F 76-120 22-48 111-135/61-82 98-100 cor-rrr lungs decreased bs at bases abd soft, nt ext no edema CBC, BMP 05/17/19 05:30 05/17/19 05:30 Microbiology 05/13/19 18:30 Blood - Peripheral Venous Blood Culture - Preliminary NO GROWTH OBTAINED AFTER 72 HOURS, INCUBATION TO CONTINUE FOR 2 DAYS. 05/13/19 18:00 Blood - Central Line Blood Culture - Preliminary NO GROWTH OBTAINED AFTER 72 HOURS, INCUBATION TO CONTINUE FOR 2 DAYS. 05/13/19 18:10 Sputum - Endotrachea Suction/Ventilator Gram Stain - Final 05/13/19 18:10 Sputum - Endotrachea Suction/Ventilator Sputum Culture - Final Escherichia Coli Esbl Cooker Tender 05/04/19 17:00 Sputum - Endotrachea Suction/Ventilator Gram Stain - Final 05/04/19 17:00 Sputum - Endotrachea Suction/Ventilator Sputum Culture - Final NORMAL RESPIRATORY ROSEMARY 05/01/19 11:09 Blood - Peripheral Venous Blood Culture - Final NO GROWTH AFTER 5 DAYS INCUBATION 05/01/19 09:00 Blood - Peripheral Venous Blood Culture - Final NO GROWTH AFTER 5 DAYS INCUBATION 04/30/19 05:05 Blood - Peripheral Venous Blood Culture - Final Staphylococcus Epidermidis Cdc Group G 04/30/19 05:05 Blood - Peripheral Venous Blood Culture - Final Staphylococcus Coagulase Neg 04/30/19 19:45 Urine For Antigen Detection Legionella Antigen - Final 04/30/19 19:45 Urine For Antigen Detection Streptococcus pneumoniae Antigen (M - Final 04/30/19 05:25 Urine - Urine - Catheterized Urine Culture - Final NO GROWTH OBTAINED a/p respiratory failure pneumonia chf renal failure resolved continue meropenem
[2019-05-17] MEDS: FERROUS SO4 300 MG/5 ML ORAL SOLN UNIT DOSE CUPS NGT SCH ×2 (10:39→21:22)
[2019-05-17] MEDS: POLYETHYLENE GLYCOL 3350 119 GM BTL PO SCH (10:39)
[2019-05-17] MEDS: DIGOXIN 0.5 MG/2 ML AMPUL IVPUSH SCH (10:39)
[2019-05-17] MEDS: PANTOPRAZOLE SODIUM 40 MG VIAL IVPUSH SCH (10:39)
[2019-05-17] MEDS: THIAMINE HCL 200 MG/2 ML VIAL IVPB SCH (10:41)
[2019-05-17] MEDS: HEPARIN SOD,PORK IN 0.45% NACL 25,000 UNITS/500 ML INFUS.BAG IVPB SCH ×2 (10:41→18:11)
[2019-05-17 11:22] LABS: ALLENS TEST POSITIVE; ARTERIAL BLD GAS O2 SATURATION 92.3 % (95-98); ARTERIAL BLOOD GAS PCO2 53.2 mmHg (35-45); ARTERIAL BLOOD GAS PO2 67.3 mmHg (80-100); ARTERIAL BLOOD GAS pH 7.39 (7.35-7.45)
[2019-05-17] MEDS: PROPOFOL 1,000,000 MCG/100 ML VIAL IVPB SCH ×2 (13:00→18:09)
[2019-05-17] MEDS: FUROSEMIDE INJECTION 100 MG in DEXTROSE 5%-WATER - 90 ML IVPB SCH ×2 (13:04→18:09)
[2019-05-17] MEDS ORDERED: MAGNESIUM SULFATE IN WATER 2 GM/50 ML IVPB IVPB ONE (13:05)
[2019-05-17] MEDS: SODIUM CHLORIDE 0.45% 1,000 ML IV SCH (13:05)
[2019-05-17] MEDS: NOREPINEPHRINE BITARTRATE IV SCH (13:06)
[2019-05-17] MEDS: SODIUM CHLORIDE 0.45% IV SCH (13:06)
--- NOTE | 2019-05-17 13:07 | PN ---
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, Physician Chief Complaint: Pt is intubated; sedated History of Present Illness: 53-year-old male with PMHx HTN, diastolic CHF, RYNE, , morbidly obese, presented with shortness of breathAnd obtundation. Patient received IV diuretics, placed on BiPAP with no significant improvement. pH remains 7.09 with PCO2 of greater than 100. Patient is noted to be hyperkalemic with 6.9 and elevated creatinine consistent with RYNE. Chest x-ray reveals cardiomegaly and extensive pulmonary edema. On my evaluation, patient is lethargic, arousable to sternal rub only, tachypneic with respiratory rate of 40 with pink frothy fluid noted in the oropharynx and nares bilaterally. Given the patient's clinical condition, persistent acidemia and hypercapnia, patient requires immediate endotracheal intubation. Due to body habitus and potential airway complications, anesthesia consulted and has intubated the patient using a bougie. Will admit to the ICU. Will initiate a propofol drip for sedation. - Current Medication List Current Medications: Active Medications Chlorhexidine Gluconate (Hibiclens For Decolonization -) 1 applic TP HS [facility] Last Admin: 05/16/19 22:39 Dose: 1 applic Digoxin (Lanoxin Injection -) 0.125 mg IVPUSH DAILY [facility] Last Admin: 05/17/19 10:39 Dose: 0.125 mg Diltiazem HCl (Cardizem Injection -) 10 mg IVPUSH Q4H PRN PRN Reason: TACHYCARDIA Last Admin: 05/10/19 08:30 Dose: 10 mg Docusate Sodium (Colace Liquid -) 200 mg PO DAILY PRN PRN Reason: CONSTIPATION Last Admin: 05/16/19 14:28 Dose: 200 mg Ferrous Sulfate (Feosol) 300 mg NGT BID [facility] Last Admin: 05/17/19 10:39 Dose: 300 mg Heparin Sodium (Porcine) (Heparin -) 1,000 unit IVPUSH PRN PRN PRN Reason: Heparin Heparin Sodium (Porcine) (Heparin -) 5,000 unit IVPUSH PRN PRN PRN Reason: Heparin Diltiazem HCl 125 mg/ Dextrose 125 mls @ 10 mls/hr IVPB TITR [facility]; Protocol Last Titration: 05/16/19 17:59 Dose: 6 mg/hr, 6 mls/hr Propofol (Diprivan -) 1,000,000 mcg in 100 mls @ 3.463 mls/hr IVPB TITR [facility]; Protocol Last Titration: 05/17/19 07:25 Dose: 40 mcg/kg/min, 27.705 mls/hr HEPARIN SOD,PORK IN 0.45% NACL (Heparin-1/2ns 25,000 Units/500) 25,000 units in 500 mls @ 20 mls/hr IVPB TITR [facility]; Protocol Last Admin: 05/17/19 10:41 Dose: 1,150 units/hr, 23 mls/hr Meropenem 500 mg/ Dextrose 100 mls @ 200 mls/hr IVPB Q8H-IV [facility] Last Admin: 05/17/19 10:39 Dose: 200 mls/hr Furosemide 100 mg/ Dextrose 100 mls @ 10 mls/hr IVPB TITR [facility] Last Admin: 05/17/19 13:04 Dose: 10 mg/hr, 10 mls/hr Magnesium Sulfate/Dextrose 2 (gm/ Miscellaneous) 200 mls @ 100 mls/hr IVPB ONCE ONE Stop: 05/17/19 15:04 Insulin Aspart (Novolog Vial Sliding Scale -) 1 vial SQ Q4H [facility]; Protocol Last Admin: 05/17/19 13:05 Dose: Not Given Metoprolol Tartrate (Lopressor Injection -) 5 mg IVPUSH Q4H PRN PRN Reason: TACHYCARDIA Last Admin: 05/10/19 08:43 Dose: 5 mg Metoprolol Tartrate (Lopressor -) 25 mg GT TID [facility] Last Admin: 05/17/19 06:48 Dose: 25 mg Morphine Sulfate (Morphine Sulfate) 2 mg IVPUSH Q4H PRN PRN Reason: PAIN LEVEL 7 - 10 Pantoprazole Sodium (Protonix Iv) 40 mg IVPUSH DAILY [facility] Last Admin: 05/17/19 10:39 Dose: 40 mg Polyethylene Glycol (Miralax (For Daily Use) -) 17 gm PO DAILY [facility] Last Admin: 05/17/19 10:39 Dose: 17 grams Scopolamine HBr (Transderm-Scop -) 1 patch TD Q72H [facility] Thiamine HCl (Vitamin B1 Injection -) 200 mg IVPB DAILY [facility] Last Admin: 05/17/19 10:41 Dose: 200 mg - Objective Vital Signs: Vital Signs Temperature 99.7 F H 05/17/19 06:00 Pulse Rate 92 H 05/17/19 10:39 Respiratory Rate 30 H 05/17/19 12:10 Blood Pressure 111/75 05/17/19 06:00 O2 Sat by Pulse Oximetry (%) 100 05/17/19 08:15 Constitutional: Yes: Obese Eyes: Yes: WNL HENT: Yes: WNL Neck: Yes: Decreased ROM Cardiovascular: Yes: Pulse Irregular, S1 (varies in intensity), S2 Respiratory: Yes: Mechanically Ventilated Gastrointestinal: Yes: Soft, Abdomen, Obese Genitourinary: No: Anuria Musculoskeletal: Yes: Muscle Weakness Extremities: Yes: Cool Edema: Yes Edema: LLE: Trace, RLE: Trace Peripheral Pulses WNL: Yes Neurological: Yes: Weakness Psychiatric: Yes: Other Labs: CBC, BMP 05/17/19 05:30 05/17/19 05:30 INR, PTT INR 1.09 (0.83-1.09) 05/05/19 05:30 Abnormal Lab Results 05/18/19 05/18/19 05/18/19 05:35 05:35 07:56 Hgb 10.1 L Hct 32.7 L MCH 24.7 L MCHC 30.8 L RDW 18.9 H Plt Count 125 L PTT (Actin FS) 69.4 H Chloride 108 H Anion Gap 5 L BUN 63.1 H Creatinine 1.6 H Random Glucose 214 H AST 52 H ALT 206 H Total Protein 5.1 L Albumin 2.4 L - ....Imaging Chest X-ray: Image Reviewed Other: Image Reviewed (telemetry: AF) Problem List - Problems (1) Acute hypercapnic respiratory failure due to obstructive sleep apnea Assessment/Plan: attempt at weaning off ventilator per outcomes manager. Code(s): J96.02 - ACUTE RESPIRATORY FAILURE WITH HYPERCAPNIA; G47.33 - OBSTRUCTIVE SLEEP APNEA (ADULT) (PEDIATRIC) (2) Atrial fibrillation and flutter Assessment/Plan: On diltiazem IV. On metoprolol tartratE. On digoxin; keep level 0.4-0.8 (0.84 on last measurment 05/14/19). Code(s): I48.91 - UNSPECIFIED ATRIAL FIBRILLATION; I48.92 - UNSPECIFIED ATRIAL FLUTTER (3) Pneumonia Assessment/Plan: Antibiotics, O2, steroids per outcomes manager, ID. Code(s): J18.9 - PNEUMONIA, UNSPECIFIED ORGANISM Qualifiers: Pneumonia type: due to unspecified organism (4) Sarcoidosis of other sites Code(s): D86.89 - SARCOIDOSIS OF OTHER SITES (5) Acute on chronic renal failure Assessment/Plan: improving Cr; f/u with nephologist. Code(s): N17.9 - ACUTE KIDNEY FAILURE, UNSPECIFIED; N18.9 - CHRONIC KIDNEY DISEASE, UNSPECIFIED Assessment/Plan CCU time spent: 40 minutes.
[2019-05-17] MEDS: METOPROLOL TARTRATE 5 MG/5 ML VIAL IVPUSH PRN (18:09)
[2019-05-17] MEDS: DILTIAZEM INJECTION 125 MG in DEXTROSE 5%-WATER - 100 ML IVPB SCH (18:10)
--- NOTE | 2019-05-17 18:26 | PN ---
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, Physician History of Present Illness: Pt seen and examined at bedside. He remains in the ICU. He remains intubated. - Current Medication List Current Medications: Active Medications Chlorhexidine Gluconate (Hibiclens For Decolonization -) 1 applic TP HS [facility] Last Admin: 05/16/19 22:39 Dose: 1 applic Digoxin (Lanoxin Injection -) 0.125 mg IVPUSH DAILY [facility] Last Admin: 05/17/19 10:39 Dose: 0.125 mg Diltiazem HCl (Cardizem Injection -) 10 mg IVPUSH Q4H PRN PRN Reason: TACHYCARDIA Last Admin: 05/10/19 08:30 Dose: 10 mg Docusate Sodium (Colace Liquid -) 200 mg PO DAILY PRN PRN Reason: CONSTIPATION Last Admin: 05/16/19 14:28 Dose: 200 mg Ferrous Sulfate (Feosol) 300 mg NGT BID [facility] Last Admin: 05/17/19 10:39 Dose: 300 mg Heparin Sodium (Porcine) (Heparin -) 1,000 unit IVPUSH PRN PRN PRN Reason: Heparin Heparin Sodium (Porcine) (Heparin -) 5,000 unit IVPUSH PRN PRN PRN Reason: Heparin Diltiazem HCl 125 mg/ Dextrose 125 mls @ 10 mls/hr IVPB TITR [facility]; Protocol Last Admin: 05/17/19 18:10 Dose: 6 mg/hr, 6 mls/hr Propofol (Diprivan -) 1,000,000 mcg in 100 mls @ 3.463 mls/hr IVPB TITR [facility]; Protocol Last Admin: 05/17/19 18:09 Dose: 25 mcg/kg/min, 17.316 mls/hr HEPARIN SOD,PORK IN 0.45% NACL (Heparin-1/2ns 25,000 Units/500) 25,000 units in 500 mls @ 20 mls/hr IVPB TITR [facility]; Protocol Last Admin: 05/17/19 18:11 Dose: Not Given Meropenem 500 mg/ Dextrose 100 mls @ 200 mls/hr IVPB Q8H-IV [facility] Last Admin: 05/17/19 17:41 Dose: 200 mls/hr Furosemide 100 mg/ Dextrose 100 mls @ 10 mls/hr IVPB TITR [facility] Last Admin: 05/17/19 18:09 Dose: 10 mg/hr, 10 mls/hr Insulin Aspart (Novolog Vial Sliding Scale -) 1 vial SQ Q4H [facility]; Protocol Last Admin: 05/17/19 17:40 Dose: 4 units Metoprolol Tartrate (Lopressor Injection -) 5 mg IVPUSH Q4H PRN PRN Reason: TACHYCARDIA Last Admin: 05/17/19 18:09 Dose: 5 mg Metoprolol Tartrate (Lopressor -) 25 mg GT TID [facility] Last Admin: 05/17/19 15:32 Dose: 25 mg Morphine Sulfate (Morphine Sulfate) 2 mg IVPUSH Q4H PRN PRN Reason: PAIN LEVEL 7 - 10 Pantoprazole Sodium (Protonix Iv) 40 mg IVPUSH DAILY [facility] Last Admin: 05/17/19 10:39 Dose: 40 mg Polyethylene Glycol (Miralax (For Daily Use) -) 17 gm PO DAILY [facility] Last Admin: 05/17/19 10:39 Dose: 17 grams Scopolamine HBr (Transderm-Scop -) 1 patch TD Q72H [facility] Last Admin: 05/17/19 08:00 Dose: Not Given Thiamine HCl (Vitamin B1 Injection -) 200 mg IVPB DAILY [facility] Last Admin: 05/17/19 10:41 Dose: 200 mg - Objective Vital Signs: Vital Signs Temperature 99.8 F H 05/17/19 18:00 Pulse Rate 124 H 05/17/19 18:10 Respiratory Rate 35 H 05/17/19 18:00 Blood Pressure 98/60 05/17/19 18:10 O2 Sat by Pulse Oximetry (%) 100 05/17/19 08:15 Constitutional: Yes: Calm Eyes: Yes: Conjunctiva Clear HENT: Yes: Atraumatic Neck: Yes: Supple Cardiovascular: Yes: S1, S2 Respiratory: Yes: Mechanically Ventilated Gastrointestinal: Yes: Soft, Abdomen, Obese Genitourinary: Yes: Andrews Present Musculoskeletal: Yes: WNL Edema: Yes Edema: LUE: 1+, RUE: 1+ Neurological: Yes: Lethargy Labs: CBC, BMP 05/17/19 05:30 05/17/19 05:30 INR, PTT INR 1.09 (0.83-1.09) 05/05/19 05:30 - ....Imaging Chest X-ray: Report Reviewed Problem List - Problems (1) Acute decompensated heart failure Code(s): I50.9 - HEART FAILURE, UNSPECIFIED (2) Atrial fibrillation and flutter Code(s): I48.91 - UNSPECIFIED ATRIAL FIBRILLATION; I48.92 - UNSPECIFIED ATRIAL FLUTTER (3) Hyperkalemia Code(s): E87.5 - HYPERKALEMIA (4) Pneumonia Code(s): J18.9 - PNEUMONIA, UNSPECIFIED ORGANISM Qualifiers: Pneumonia type: due to unspecified organism (5) Sarcoidosis of other sites Code(s): D86.89 - SARCOIDOSIS OF OTHER SITES Assessment/Plan Current Medications Generic Name Dose Route Start Last Admin Trade Name Freq PRN Reason Stop Dose Admin Chlorhexidine Gluconate 1 applic 04/30/19 22:00 05/16/19 22:39 Hibiclens For Decolonization - TP 1 applic HS [facility] Administration Digoxin 0.125 mg 05/12/19 11:45 05/17/19 10:39 Lanoxin Injection - IVPUSH 0.125 mg DAILY [facility] Administration Diltiazem HCl 10 mg 05/10/19 05:04 05/10/19 08:30 Cardizem Injection - IVPUSH 10 mg Q4H PRN Administration TACHYCARDIA Docusate Sodium 200 mg 05/15/19 13:37 05/16/19 14:28 Colace Liquid - PO 200 mg DAILY PRN Administration CONSTIPATION Ferrous Sulfate 300 mg 05/09/19 10:00 05/17/19 10:39 Feosol NGT 300 mg BID [facility] Administration Heparin Sodium (Porcine) 1,000 unit 05/14/19 15:27 Heparin - IVPUSH PRN PRN Heparin Heparin Sodium (Porcine) 5,000 unit 05/14/19 15:27 Heparin - IVPUSH PRN PRN Heparin Diltiazem HCl 125 mg/ Dextrose 125 mls @ 10 mls/hr 05/12/19 11:46 05/17/19 18 :10 IVPB 6 mg/hr TITR [facility] 6 mls/hr Administration Protocol 10 MG/HR Propofol 1,000,000 mcg in 100 mls @ 3.463 mls/hr 05/13/19 08:30 05/17/19 18: 09 Diprivan - IVPB 25 mcg/kg/min TITR [facility] 17.316 mls/hr Administration Protocol 5 MCG/KG/MIN HEPARIN SOD,PORK IN 0.45% NACL 25,000 units in 500 mls @ 20 mls/hr 05/14/19 15 :30 05/17/19 18:11 Heparin-1/2ns 25,000 Units/500 IVPB Not Given TITR [facility] Protocol 1,000 UNITS/HR Meropenem 500 mg/ Dextrose 100 mls @ 200 mls/hr 05/16/19 18:00 05/17/19 17:41 IVPB 200 mls/hr Q8H-IV [facility] Administration Furosemide 100 mg/ Dextrose 100 mls @ 10 mls/hr 05/17/19 11:00 05/17/19 18:09 IVPB 10 mg/hr TITR [facility] 10 mls/hr Administration 10 MG/HR Insulin Aspart 1 vial 05/17/19 07:30 05/17/19 17:40 Novolog Vial Sliding Scale - SQ 4 units Q4H [facility] Administration Protocol Metoprolol Tartrate 5 mg 04/30/19 08:57 05/17/19 18:09 Lopressor Injection - IVPUSH 5 mg Q4H PRN Administration TACHYCARDIA Metoprolol Tartrate 25 mg 05/16/19 14:00 05/17/19 15:32 Lopressor - GT 25 mg TID [facility] Administration Morphine Sulfate 2 mg 05/16/19 22:58 Morphine Sulfate IVPUSH Q4H PRN PAIN LEVEL 7 - 10 Pantoprazole Sodium 40 mg 05/14/19 10:00 05/17/19 10:39 Protonix Iv IVPUSH 40 mg DAILY [facility] Administration Polyethylene Glycol 17 gm 05/16/19 11:45 05/17/19 10:39 Miralax (For Daily Use) - PO 17 grams DAILY [facility] Administration Scopolamine HBr 1 patch 05/17/19 05:15 05/17/19 08:00 Transderm-Scop - TD Not Given Q72H [facility] Thiamine HCl 200 mg 05/13/19 10:00 05/17/19 10:41 Vitamin B1 Injection - IVPB 200 mg DAILY [facility] Administration Impression 1. RYNE 2. hyperkalemia 3. resp failure requiring intubation 4. resp acidosis 5. dm 6. hx htn 7. sleep apnea 8. obesity 9. hx non compliance 10. chf 11. sarcoid 12. volume overload 13. hypernatremia Plan - renal function improving - cont free water with feeds - cont lasix - cxr shows improvement - vent support - potassium improved
[2019-05-17] MEDS: CHLORHEXIDINE GLUCONATE 4% CLEANSER FOR DECOLONIZATION TP SCH (21:22)
[2019-05-18] MEDS ORDERED: DEXTROSE 5%-WATER 100 ML IVPB ONE ×3 (03:38→17:28)
[2019-05-18] MEDS ORDERED: MEROPENEM 500 MG VIAL (RESTRICTED TO ID) IVPB ONE ×3 (03:38→17:28)
[2019-05-18] MEDS: INSULIN SLIDING SCALE (NOVOLOG) 1 VIAL SQ SCH ×5 (03:40→21:25)
[2019-05-18] MEDS: MEROPENEM 500 MG in DEXTROSE 5%-WATER 100 ML IVPB SCH ×3 (03:44→17:55)
[2019-05-18 06:28] LABS: HEMATOCRIT 32.7 % (35.4-49); HEMOGLOBIN 10.1 GM/dL (11.7-16.9); MCH 24.7 pg (25.7-33.7); MCHC 30.8 g/dl (32.0-35.9); MEAN CELL VOLUME 80.3 fl (80-96); PLATELET COUNT 125 K/MM3 (134-434); RBC 4.07 M/mm3 (4.00-5.60); RDW 18.9 % (11.9-15.9); WHITE BLOOD COUNT 6.9 K/mm3 (4.0-10.0)
[2019-05-18] MEDS: METOPROLOL TARTRATE 25 MG TABLET (FP) GT SCH ×3 (07:29→21:09)
[2019-05-18] MEDS ORDERED: PT OWN MED DRAWER 7, Y5N ONE ×3 (07:31→21:07)
--- NOTE | 2019-05-18 08:47 | PN ---
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 (short form) - Note 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: remains intubated and sedated fi02 40% NAD Vital Signs Period Temp Pulse Resp BP Sys/[place] Pulse Ox Last 24 Hr 99 F-100.2 F 80-124 30-39 84-110/57-80 100-100 cor-rrr lungs decreased bs at bases abd soft,nt ext no edema CBC, BMP 05/18/19 05:35 05/17/19 05:30 Microbiology 05/16/19 22:30 Blood - Peripheral Venous Blood Culture - Preliminary NO GROWTH OBTAINED AFTER 24 HOURS, INCUBATION TO CONTINUE FOR 4 DAYS. 05/16/19 22:30 Blood - Peripheral Venous Blood Culture - Preliminary NO GROWTH OBTAINED AFTER 24 HOURS, INCUBATION TO CONTINUE FOR 4 DAYS. 05/13/19 18:30 Blood - Peripheral Venous Blood Culture - Preliminary NO GROWTH OBTAINED AFTER 96 HOURS, INCUBATION TO CONTINUE FOR 1 DAYS. 05/13/19 18:00 Blood - Central Line Blood Culture - Preliminary NO GROWTH OBTAINED AFTER 96 HOURS, INCUBATION TO CONTINUE FOR 1 DAYS. 05/13/19 18:10 Sputum - Endotrachea Suction/Ventilator Gram Stain - Final 05/13/19 18:10 Sputum - Endotrachea Suction/Ventilator Sputum Culture - Final Escherichia Coli Esbl Cloth Finishing Range Back Tender 05/04/19 17:00 Sputum - Endotrachea Suction/Ventilator Gram Stain - Final 05/04/19 17:00 Sputum - Endotrachea Suction/Ventilator Sputum Culture - Final NORMAL RESPIRATORY ROSEMARY 05/01/19 11:09 Blood - Peripheral Venous Blood Culture - Final NO GROWTH AFTER 5 DAYS INCUBATION 05/01/19 09:00 Blood - Peripheral Venous Blood Culture - Final NO GROWTH AFTER 5 DAYS INCUBATION 04/30/19 05:05 Blood - Peripheral Venous Blood Culture - Final Staphylococcus Epidermidis Cdc Group G 04/30/19 05:05 Blood - Peripheral Venous Blood Culture - Final Staphylococcus Coagulase Neg 04/30/19 19:45 Urine For Antigen Detection Legionella Antigen - Final 04/30/19 19:45 Urine For Antigen Detection Streptococcus pneumoniae Antigen (M - Final 04/30/19 05:25 Urine - Urine - Catheterized Urine Culture - Final NO GROWTH OBTAINED cxray slight improvement of infiltrates a/p respiratory failure pneumonia chf renal failure resolved continue meropenem
[2019-05-18] MEDS: FERROUS SO4 300 MG/5 ML ORAL SOLN UNIT DOSE CUPS NGT SCH ×2 (10:30→21:08)
[2019-05-18] MEDS: DIGOXIN 0.5 MG/2 ML AMPUL IVPUSH SCH (10:48)
[2019-05-18] MEDS: POLYETHYLENE GLYCOL 3350 119 GM BTL PO SCH (10:48)
[2019-05-18] MEDS: PROPOFOL 1,000,000 MCG/100 ML VIAL IVPB SCH ×2 (10:48→22:51)
[2019-05-18] MEDS: THIAMINE HCL 200 MG/2 ML VIAL IVPB SCH (10:49)
[2019-05-18] MEDS: PANTOPRAZOLE SODIUM 40 MG VIAL IVPUSH SCH (10:49)
--- NOTE | 2019-05-18 13:04 | PN ---
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 (short form) - Note 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: 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 Pulm/CCM Pt seen and examined in the ICU. Remains intubated and sedated. Lasix and diltiazem drips decreased d/t hypotension. Now improved. Active Medications Amino Acids (Prosource No Carb Liquid Pkt) 30 ml PO BID@0800,1730 [facility] Chlorhexidine Gluconate (Hibiclens For Decolonization -) 1 applic TP HS [facility] Last Admin: 05/17/19 21:22 Dose: 1 applic Digoxin (Lanoxin Injection -) 0.125 mg IVPUSH DAILY [facility] Last Admin: 05/18/19 10:48 Dose: 0.125 mg Diltiazem HCl (Cardizem Injection -) 10 mg IVPUSH Q4H PRN PRN Reason: TACHYCARDIA Last Admin: 05/10/19 08:30 Dose: 10 mg Docusate Sodium (Colace Liquid -) 200 mg PO DAILY PRN PRN Reason: CONSTIPATION Last Admin: 05/16/19 14:28 Dose: 200 mg Ferrous Sulfate (Feosol) 300 mg NGT BID [facility] Last Admin: 05/18/19 10:30 Dose: 300 mg Heparin Sodium (Porcine) (Heparin -) 1,000 unit IVPUSH PRN PRN PRN Reason: Heparin Heparin Sodium (Porcine) (Heparin -) 5,000 unit IVPUSH PRN PRN PRN Reason: Heparin Diltiazem HCl 125 mg/ Dextrose 125 mls @ 10 mls/hr IVPB TITR [facility]; Protocol Last Titration: 05/17/19 18:29 Dose: 8 mg/hr, 8 mls/hr Propofol (Diprivan -) 1,000,000 mcg in 100 mls @ 3.463 mls/hr IVPB TITR [facility]; Protocol Last Admin: 05/18/19 10:48 Dose: 25 mcg/kg/min, 17.316 mls/hr HEPARIN SOD,PORK IN 0.45% NACL (Heparin-1/2ns 25,000 Units/500) 25,000 units in 500 mls @ 20 mls/hr IVPB TITR [facility]; Protocol Last Admin: 05/17/19 18:11 Dose: Not Given Meropenem 500 mg/ Dextrose 100 mls @ 200 mls/hr IVPB Q8H-IV [facility] Last Admin: 05/18/19 10:48 Dose: 200 mls/hr Furosemide 100 mg/ Dextrose 100 mls @ 10 mls/hr IVPB TITR [facility] Last Admin: 05/17/19 18:09 Dose: 10 mg/hr, 10 mls/hr Insulin Aspart (Novolog Vial Sliding Scale -) 1 vial SQ Q4H [facility]; Protocol Last Admin: 05/18/19 11:58 Dose: 2 units Metoprolol Tartrate (Lopressor Injection -) 5 mg IVPUSH Q4H PRN PRN Reason: TACHYCARDIA Last Admin: 05/17/19 18:09 Dose: 5 mg Metoprolol Tartrate (Lopressor -) 25 mg GT TID [facility] Last Admin: 05/18/19 13:55 Dose: 25 mg Morphine Sulfate (Morphine Sulfate) 2 mg IVPUSH Q4H PRN PRN Reason: PAIN LEVEL 7 - 10 Pantoprazole Sodium (Protonix Iv) 40 mg IVPUSH DAILY [facility] Last Admin: 05/18/19 10:49 Dose: 40 mg Polyethylene Glycol (Miralax (For Daily Use) -) 17 gm PO DAILY [facility] Last Admin: 05/18/19 10:48 Dose: 17 grams Scopolamine HBr (Transderm-Scop -) 1 patch TD Q72H [facility] Last Admin: 05/17/19 08:00 Dose: Not Given Thiamine HCl (Vitamin B1 Injection -) 200 mg IVPB DAILY [facility] Last Admin: 05/18/19 10:49 Dose: 200 mg Vital Signs Period Temp Pulse Resp BP Sys/[place]yon Pulse Ox Last 24 Hr 99 F-100.2 F 80-124 30-39 84-120/55-72 100-100 Intake & Output 05/15/19 05/16/19 05/17/19 05/18/19 23:59 23:59 23:59 23:59 Intake Total 4708 5921.0 2339.7 1699 Output Total 2100 2300 1200 3200 Balance 2608 3621.0 1139.7 -1501 Weight 117.435 kg 117.435 kg 123.196 kg 119.884 kg GEN: Obese, appears much older than 53 y/o, toxic appearing, intubated & sedated on the Vent PULM: scattered rhonchi B/L CV: nml S1 S2, irreg/irreg, unable to appreciate any G/M/R ABD: + BS, S/S N/T N/D X4Q EXT: + Pulses, [id number], + edema CBC, BMP 05/18/19 05:35 05/17/19 05:30 Microbiology 05/13/19 18:30 Blood - Peripheral Venous Blood Culture - Preliminary NO GROWTH OBTAINED AFTER 72 HOURS, INCUBATION TO CONTINUE FOR 2 DAYS. 05/13/19 18:00 Blood - Central Line Blood Culture - Preliminary NO GROWTH OBTAINED AFTER 72 HOURS, INCUBATION TO CONTINUE FOR 2 DAYS. 05/13/19 18:10 Sputum - Endotrachea Suction/Ventilator Gram Stain - Final 05/13/19 18:10 Sputum - Endotrachea Suction/Ventilator Sputum Culture - Final Escherichia Coli Esbl Carrier Washer 05/04/19 17:00 Sputum - Endotrachea Suction/Ventilator Gram Stain - Final 05/04/19 17:00 Sputum - Endotrachea Suction/Ventilator Sputum Culture - Final NORMAL RESPIRATORY ROSEMARY 05/01/19 11:09 Blood - Peripheral Venous Blood Culture - Final NO GROWTH AFTER 5 DAYS INCUBATION 05/01/19 09:00 Blood - Peripheral Venous Blood Culture - Final NO GROWTH AFTER 5 DAYS INCUBATION 04/30/19 05:05 Blood - Peripheral Venous Blood Culture - Final Staphylococcus Epidermidis Cdc Group G 04/30/19 05:05 Blood - Peripheral Venous Blood Culture - Final Staphylococcus Coagulase Neg 04/30/19 19:45 Urine For Antigen Detection Legionella Antigen - Final 04/30/19 19:45 Urine For Antigen Detection Streptococcus pneumoniae Antigen (M - Final 04/30/19 05:25 Urine - Urine - Catheterized Urine Culture - Final NO GROWTH OBTAINED ASSESS: Acute Hypoxic and Hypercapneic Respiratory Failure Pneumonia Gram Positive Bacteremia Septic Shock Volume Overload ARDS Lactic Acidosis Hyperkalemia Acute Kidney Injury Atrial Flutter with RVR HTN DM Anemia PLAN: - Cont Vent Support - Wean FiO2 as tolerated - Nebs - Diurese; cont Lasix drip - SBT QD - Sedation Vacation QD to assess mental status - Abx - Rate Control - AC - Strict I's & O's - Monitor BUN/Cr - Replete e-lytes prn - FSs - SSI - TFs - DVT/GI prophylaxis - Trach - GI ppx - continue ICU monitoring Chasidy Bashir, [facility]- Additional CC's: Ravindra Maya
--- NOTE | 2019-05-18 14:02 | PN ---
Physical Exam: SUBJECTIVE: Patient seen and examined at bedside. Intubated and sedated. Per nursing, pt has copious secretions requiring frequent suctioning of ET tube OBJECTIVE: Vital Signs Period Temp Pulse Resp BP Sys/[place] Pulse Ox Last 24 Hr 99 F-100.2 F 80-124 30-39 84-120/55-72 100-100 Gen: Intubated and sedated. Minimal response to sternal rub HEENT: ET tube in place Cardio: tachycardic, s1s2 Pulm: no rales/ronchi Abd: obese, nontender, nondistended, pos bs Ext: mild edema Laboratory Results - last 24 hr 05/17/19 05/17/19 05/17/19 17:28 20:35 23:17 WBC RBC Hgb Hct MCV MCH MCHC RDW Plt Count MPV PTT (Actin FS) POC Glucometer 223 258 193 05/18/19 05/18/19 05/18/19 03:50 05:35 05:35 WBC 6.9 RBC 4.07 Hgb 10.1 L Hct 32.7 L MCV 80.3 MCH 24.7 L MCHC 30.8 L RDW 18.9 H Plt Count 125 L MPV 11.0 PTT (Actin FS) 69.4 H POC Glucometer 208 05/18/19 05/18/19 05:47 11:57 WBC RBC Hgb Hct MCV MCH MCHC RDW Plt Count MPV PTT (Actin FS) POC Glucometer 217 200 Active Medications Generic Name Dose Route Start Last Admin Trade Name Freq PRN Reason Stop Dose Admin Amino Acids 30 ml 05/18/19 17:30 Prosource No Carb Liquid Pkt PO BID@0800,1730 ELISSA Chlorhexidine Gluconate 1 applic 04/30/19 22:00 05/17/19 21:22 Hibiclens For Decolonization - TP 1 applic HS ELISSA Administration Digoxin 0.125 mg 05/12/19 11:45 05/18/19 10:48 Lanoxin Injection - IVPUSH 0.125 mg DAILY ELISSA Administration Diltiazem HCl 10 mg 05/10/19 05:04 05/10/19 08:30 Cardizem Injection - IVPUSH 10 mg Q4H PRN Administration TACHYCARDIA Docusate Sodium 200 mg 05/15/19 13:37 05/16/19 14:28 Colace Liquid - PO 200 mg DAILY PRN Administration CONSTIPATION Ferrous Sulfate 300 mg 05/09/19 10:00 05/18/19 10:30 Feosol NGT 300 mg BID ELISSA Administration Heparin Sodium (Porcine) 1,000 unit 05/14/19 15:27 Heparin - IVPUSH PRN PRN Heparin Heparin Sodium (Porcine) 5,000 unit 05/14/19 15:27 Heparin - IVPUSH PRN PRN Heparin Diltiazem HCl 125 mg/ Dextrose 125 mls @ 10 mls/hr 05/12/19 11:46 05/17/19 18 :29 IVPB 8 mg/hr TITR ELISSA 8 mls/hr Titration Protocol 10 MG/HR Propofol 1,000,000 mcg in 100 mls @ 3.463 mls/hr 05/13/19 08:30 05/18/19 10: 48 Diprivan - IVPB 25 mcg/kg/min TITR ELISSA 17.316 mls/hr Administration Protocol 5 MCG/KG/MIN HEPARIN SOD,PORK IN 0.45% NACL 25,000 units in 500 mls @ 20 mls/hr 05/14/19 15 :30 05/17/19 18:11 Heparin-1/2ns 25,000 Units/500 IVPB Not Given TITR ELISSA Protocol 1,000 UNITS/HR Meropenem 500 mg/ Dextrose 100 mls @ 200 mls/hr 05/16/19 18:00 05/18/19 10:48 IVPB 200 mls/hr Q8H-IV ELISSA Administration Furosemide 100 mg/ Dextrose 100 mls @ 10 mls/hr 05/17/19 11:00 05/17/19 18:09 IVPB 10 mg/hr TITR ELISSA 10 mls/hr Administration 10 MG/HR Insulin Aspart 1 vial 05/17/19 07:30 05/18/19 11:58 Novolog Vial Sliding Scale - SQ 2 units Q4H ELISSA Administration Protocol Metoprolol Tartrate 5 mg 04/30/19 08:57 05/17/19 18:09 Lopressor Injection - IVPUSH 5 mg Q4H PRN Administration TACHYCARDIA Metoprolol Tartrate 25 mg 05/16/19 14:00 05/18/19 13:55 Lopressor - GT 25 mg TID ELISSA Administration Morphine Sulfate 2 mg 05/16/19 22:58 Morphine Sulfate IVPUSH Q4H PRN PAIN LEVEL 7 - 10 Pantoprazole Sodium 40 mg 05/14/19 10:00 05/18/19 10:49 Protonix Iv IVPUSH 40 mg DAILY ELISSA Administration Polyethylene Glycol 17 gm 05/16/19 11:45 05/18/19 10:48 Miralax (For Daily Use) - PO 17 grams DAILY ELISSA Administration Scopolamine HBr 1 patch 05/17/19 05:15 05/17/19 08:00 Transderm-Scop - TD Not Given Q72H ELISSA Thiamine HCl 200 mg 05/13/19 10:00 05/18/19 10:49 Vitamin B1 Injection - IVPB 200 mg DAILY ELISSA Administration ASSESSMENT/PLAN: 53 y/o/m with PMHx of DM2, HFpEF(last EF: 45-50%), 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 Resp failure - extubated on 05/09, re-intubated on 05/13 -EMMY -on abx meropenem -ID/Pulm on board -Solumedrol -E. coli cultured from ET suction -recent culture neg HFpEF -echo 05/01/19 with normal size, thickness, and function of LV -monitor fluid status -does not appear to be in overt cardiogenic shock. Extremities are warm. Making urine Atrial Flutter -rate controlled with cardizem drip with PRN pushes -lopressor via G tube -c/w Hep ggt RYNE: resolved -? 2/2 overload -Communications Project Lead now at baseline -Nephro on board Hypernatremia -resolving. 146 yesterday -on lasix -Nephro on board DM2 -c/w BGM, ISS Visit type - Emergency Visit Emergency Visit: No - New Patient This patient is new to me today: Yes Date on this admission: 05/18/19 - Critical Care Critical Care patient: No ATTENDING PHYSICIAN STATEMENT I saw and evaluated the patient. I reviewed the resident's note and discussed the case with the resident. I agree with the resident's findings and plan as documented. SUBJECTIVE: OBJECTIVE: ASSESSMENT AND PLAN:
[2019-05-18 14:49] LABS: ALBUMIN 2.4 g/dl (3.4-5.0); BILIRUBIN,TOTAL 0.4 mg/dL (0.2-1); BLOOD UREA NITROGEN 63.1 mg/dL (7-18); CALCIUM 8.6 mg/dL (8.5-10.1); CREATININE 1.6 mg/dL (0.55-1.3); MAGNESIUM 2.2 mg/dL (1.8-2.4); PHOSPHOROUS 4.8 mg/dL (2.5-4.9); POTASSIUM 4.2 mmol/L (3.5-5.1); TOT PROT 5.1 g/dl (6.4-8.2)
[2019-05-18] MEDS: HEPARIN SOD,PORK IN 0.45% NACL 25,000 UNITS/500 ML INFUS.BAG IVPB SCH (17:13)
[2019-05-18] MEDS: FUROSEMIDE INJECTION 100 MG in DEXTROSE 5%-WATER - 90 ML IVPB SCH ×2 (17:14→21:09)
--- NOTE | 2019-05-18 17:41 | PN ---
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, Physician History of Present Illness: Pt seen and examined at bedside. He remain in the ICU. He remains intubated. - Current Medication List Current Medications: Active Medications Amino Acids (Prosource No Carb Liquid Pkt) 30 ml PO BID@0800,1730 [facility] Chlorhexidine Gluconate (Hibiclens For Decolonization -) 1 applic TP HS [facility] Last Admin: 05/17/19 21:22 Dose: 1 applic Digoxin (Lanoxin Injection -) 0.125 mg IVPUSH DAILY [facility] Last Admin: 05/18/19 10:48 Dose: 0.125 mg Diltiazem HCl (Cardizem Injection -) 10 mg IVPUSH Q4H PRN PRN Reason: TACHYCARDIA Last Admin: 05/10/19 08:30 Dose: 10 mg Docusate Sodium (Colace Liquid -) 200 mg PO DAILY PRN PRN Reason: CONSTIPATION Last Admin: 05/16/19 14:28 Dose: 200 mg Ferrous Sulfate (Feosol) 300 mg NGT BID [facility] Last Admin: 05/18/19 10:30 Dose: 300 mg Heparin Sodium (Porcine) (Heparin -) 1,000 unit IVPUSH PRN PRN PRN Reason: Heparin Heparin Sodium (Porcine) (Heparin -) 5,000 unit IVPUSH PRN PRN PRN Reason: Heparin Diltiazem HCl 125 mg/ Dextrose 125 mls @ 10 mls/hr IVPB TITR [facility]; Protocol Last Titration: 05/18/19 13:00 Dose: 7 mg/hr, 7 mls/hr Propofol (Diprivan -) 1,000,000 mcg in 100 mls @ 3.463 mls/hr IVPB TITR [facility]; Protocol Last Admin: 05/18/19 10:48 Dose: 25 mcg/kg/min, 17.316 mls/hr HEPARIN SOD,PORK IN 0.45% NACL (Heparin-1/2ns 25,000 Units/500) 25,000 units in 500 mls @ 20 mls/hr IVPB TITR [facility]; Protocol Last Admin: 05/18/19 17:13 Dose: Not Given Meropenem 500 mg/ Dextrose 100 mls @ 200 mls/hr IVPB Q8H-IV [facility] Last Admin: 05/18/19 10:48 Dose: 200 mls/hr Furosemide 100 mg/ Dextrose 100 mls @ 10 mls/hr IVPB TITR [facility] Last Admin: 05/18/19 17:14 Dose: Not Given Insulin Aspart (Novolog Vial Sliding Scale -) 1 vial SQ Q4H [facility]; Protocol Last Admin: 05/18/19 11:58 Dose: 2 units Metoprolol Tartrate (Lopressor Injection -) 5 mg IVPUSH Q4H PRN PRN Reason: TACHYCARDIA Last Admin: 05/17/19 18:09 Dose: 5 mg Metoprolol Tartrate (Lopressor -) 25 mg GT TID [facility] Last Admin: 05/18/19 13:55 Dose: 25 mg Morphine Sulfate (Morphine Sulfate) 2 mg IVPUSH Q4H PRN PRN Reason: PAIN LEVEL 7 - 10 Pantoprazole Sodium (Protonix Iv) 40 mg IVPUSH DAILY [facility] Last Admin: 05/18/19 10:49 Dose: 40 mg Polyethylene Glycol (Miralax (For Daily Use) -) 17 gm PO DAILY [facility] Last Admin: 05/18/19 10:48 Dose: 17 grams Scopolamine HBr (Transderm-Scop -) 1 patch TD Q72H [facility] Last Admin: 05/17/19 08:00 Dose: Not Given Thiamine HCl (Vitamin B1 Injection -) 200 mg IVPB DAILY [facility] Last Admin: 05/18/19 10:49 Dose: 200 mg - Objective Vital Signs: Vital Signs Temperature 99.5 F 05/18/19 17:00 Pulse Rate 107 H 05/18/19 17:00 Respiratory Rate 30 H 05/18/19 17:00 Blood Pressure 154/94 05/18/19 17:00 O2 Sat by Pulse Oximetry (%) 100 05/18/19 10:00 Constitutional: Yes: Calm Eyes: Yes: Conjunctiva Clear HENT: Yes: Atraumatic Neck: Yes: Supple Cardiovascular: Yes: S1, S2 Respiratory: Yes: Mechanically Ventilated Gastrointestinal: Yes: Soft, Abdomen, Obese Genitourinary: Yes: Andrews Present Musculoskeletal: Yes: Muscle Weakness Edema: LLE: Trace, RLE: Trace Neurological: Yes: Lethargy Labs: CBC, BMP 05/18/19 05:35 05/18/19 07:56 INR, PTT INR 1.09 (0.83-1.09) 05/05/19 05:30 - ....Imaging Chest X-ray: Report Reviewed Problem List - Problems (1) Acute decompensated heart failure Code(s): I50.9 - HEART FAILURE, UNSPECIFIED (2) Atrial fibrillation and flutter Code(s): I48.91 - UNSPECIFIED ATRIAL FIBRILLATION; I48.92 - UNSPECIFIED ATRIAL FLUTTER (3) Hyperkalemia Code(s): E87.5 - HYPERKALEMIA (4) Pneumonia Code(s): J18.9 - PNEUMONIA, UNSPECIFIED ORGANISM Qualifiers: Pneumonia type: due to unspecified organism (5) Sarcoidosis of other sites Code(s): D86.89 - SARCOIDOSIS OF OTHER SITES Assessment/Plan Current Medications Generic Name Dose Route Start Last Admin Trade Name Freq PRN Reason Stop Dose Admin Amino Acids 30 ml 05/18/19 17:30 Prosource No Carb Liquid Pkt PO BID@0800,1730 [facility] Chlorhexidine Gluconate 1 applic 04/30/19 22:00 05/17/19 21:22 Hibiclens For Decolonization - TP 1 applic HS ELISSA Administration Digoxin 0.125 mg 05/12/19 11:45 05/18/19 10:48 Lanoxin Injection - IVPUSH 0.125 mg DAILY ELISSA Administration Diltiazem HCl 10 mg 05/10/19 05:04 05/10/19 08:30 Cardizem Injection - IVPUSH 10 mg Q4H PRN Administration TACHYCARDIA Docusate Sodium 200 mg 05/15/19 13:37 05/16/19 14:28 Colace Liquid - PO 200 mg DAILY PRN Administration CONSTIPATION Ferrous Sulfate 300 mg 05/09/19 10:00 05/18/19 10:30 Feosol NGT 300 mg BID ELISSA Administration Heparin Sodium (Porcine) 1,000 unit 05/14/19 15:27 Heparin - IVPUSH PRN PRN Heparin Heparin Sodium (Porcine) 5,000 unit 05/14/19 15:27 Heparin - IVPUSH PRN PRN Heparin Diltiazem HCl 125 mg/ Dextrose 125 mls @ 10 mls/hr 05/12/19 11:46 05/18/19 13 :00 IVPB 7 mg/hr TITR ELISSA 7 mls/hr Titration Protocol 10 MG/HR Propofol 1,000,000 mcg in 100 mls @ 3.463 mls/hr 05/13/19 08:30 05/18/19 10: 48 Diprivan - IVPB 25 mcg/kg/min TITR ELISSA 17.316 mls/hr Administration Protocol 5 MCG/KG/MIN HEPARIN SOD,PORK IN 0.45% NACL 25,000 units in 500 mls @ 20 mls/hr 05/14/19 15 :30 05/18/19 17:13 Heparin-1/2ns 25,000 Units/500 IVPB Not Given TITR ELISSA Protocol 1,000 UNITS/HR Meropenem 500 mg/ Dextrose 100 mls @ 200 mls/hr 05/16/19 18:00 05/18/19 10:48 IVPB 200 mls/hr Q8H-IV ELISSA Administration Furosemide 100 mg/ Dextrose 100 mls @ 10 mls/hr 05/17/19 11:00 05/18/19 17:14 IVPB Not Given TITR ELISSA 10 MG/HR Insulin Aspart 1 vial 05/17/19 07:30 05/18/19 11:58 Novolog Vial Sliding Scale - SQ 2 units Q4H ELISSA Administration Protocol Metoprolol Tartrate 5 mg 04/30/19 08:57 05/17/19 18:09 Lopressor Injection - IVPUSH 5 mg Q4H PRN Administration TACHYCARDIA Metoprolol Tartrate 25 mg 05/16/19 14:00 05/18/19 13:55 Lopressor - GT 25 mg TID ELISSA Administration Morphine Sulfate 2 mg 05/16/19 22:58 Morphine Sulfate IVPUSH Q4H PRN PAIN LEVEL 7 - 10 Pantoprazole Sodium 40 mg 05/14/19 10:00 05/18/19 10:49 Protonix Iv IVPUSH 40 mg DAILY ELISSA Administration Polyethylene Glycol 17 gm 05/16/19 11:45 05/18/19 10:48 Miralax (For Daily Use) - PO 17 grams DAILY ELISSA Administration Scopolamine HBr 1 patch 05/17/19 05:15 05/17/19 08:00 Transderm-Scop - TD Not Given Q72H ELISSA Thiamine HCl 200 mg 05/13/19 10:00 05/18/19 10:49 Vitamin B1 Injection - IVPB 200 mg DAILY ELISSA Administration Impression 1. RYNE 2. hyperkalemia 3. resp failure requiring intubation 4. resp acidosis 5. dm 6. hx htn 7. sleep apnea 8. obesity 9. hx non compliance 10. chf 11. sarcoid 12. volume overload 13. hypernatremia Plan - cont to monitor renal function - sodium stabilizing - potassium stabilizing - cont diuretics - vent support
[2019-05-18] MEDS: AMINO ACIDS/PROTEIN HYDROLYS 30 ML LIQUID.PKT PO SCH (17:55)
[2019-05-18] MEDS: DILTIAZEM INJECTION 125 MG in DEXTROSE 5%-WATER - 100 ML IVPB SCH (17:56)
--- NOTE | 2019-05-18 18:26 | PN ---
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, Physician Chief Complaint: Pt remains intubated; sedated History of Present Illness: 53-year-old male with PMHx HTN, diastolic CHF, RYNE, , morbidly obese, presented with shortness of breathAnd obtundation. Patient received IV diuretics, placed on BiPAP with no significant improvement. pH remains 7.09 with PCO2 of greater than 100. Patient is noted to be hyperkalemic with 6.9 and elevated creatinine consistent with RYNE. Chest x-ray reveals cardiomegaly and extensive pulmonary edema. On my evaluation, patient is lethargic, arousable to sternal rub only, tachypneic with respiratory rate of 40 with pink frothy fluid noted in the oropharynx and nares bilaterally. Given the patient's clinical condition, persistent acidemia and hypercapnia, patient requires immediate endotracheal intubation. Due to body habitus and potential airway complications, anesthesia consulted and has intubated the patient using a bougie. Will admit to the ICU. Will initiate a propofol drip for sedation. - Current Medication List Current Medications: Active Medications Amino Acids (Prosource No Carb Liquid Pkt) 30 ml PO BID@0800,1730 [facility] Last Admin: 05/18/19 17:55 Dose: 30 ml Chlorhexidine Gluconate (Hibiclens For Decolonization -) 1 applic TP HS [facility] Last Admin: 05/17/19 21:22 Dose: 1 applic Digoxin (Lanoxin Injection -) 0.125 mg IVPUSH DAILY [facility] Last Admin: 05/18/19 10:48 Dose: 0.125 mg Diltiazem HCl (Cardizem Injection -) 10 mg IVPUSH Q4H PRN PRN Reason: TACHYCARDIA Last Admin: 05/10/19 08:30 Dose: 10 mg Diltiazem HCl (Cardizem -) 30 mg PO TID [facility] Docusate Sodium (Colace Liquid -) 200 mg PO DAILY PRN PRN Reason: CONSTIPATION Last Admin: 05/16/19 14:28 Dose: 200 mg Ferrous Sulfate (Feosol) 300 mg NGT BID [facility] Last Admin: 05/18/19 10:30 Dose: 300 mg Heparin Sodium (Porcine) (Heparin -) 1,000 unit IVPUSH PRN PRN PRN Reason: Heparin Heparin Sodium (Porcine) (Heparin -) 5,000 unit IVPUSH PRN PRN PRN Reason: Heparin Diltiazem HCl 125 mg/ Dextrose 125 mls @ 10 mls/hr IVPB TITR [facility]; Protocol Last Admin: 05/18/19 17:56 Dose: Not Given Propofol (Diprivan -) 1,000,000 mcg in 100 mls @ 3.463 mls/hr IVPB TITR [facility]; Protocol Last Admin: 05/18/19 10:48 Dose: 25 mcg/kg/min, 17.316 mls/hr HEPARIN SOD,PORK IN 0.45% NACL (Heparin-1/2ns 25,000 Units/500) 25,000 units in 500 mls @ 20 mls/hr IVPB TITR [facility]; Protocol Last Admin: 05/18/19 17:13 Dose: Not Given Meropenem 500 mg/ Dextrose 100 mls @ 200 mls/hr IVPB Q8H-IV [facility] Last Admin: 05/18/19 17:55 Dose: 200 mls/hr Furosemide 100 mg/ Dextrose 100 mls @ 10 mls/hr IVPB TITR [facility] Last Admin: 05/18/19 17:14 Dose: Not Given Insulin Aspart (Novolog Vial Sliding Scale -) 1 vial SQ Q4H [facility]; Protocol Last Admin: 05/18/19 17:55 Dose: 6 units Metoprolol Tartrate (Lopressor Injection -) 5 mg IVPUSH Q4H PRN PRN Reason: TACHYCARDIA Last Admin: 05/17/19 18:09 Dose: 5 mg Metoprolol Tartrate (Lopressor -) 25 mg GT TID [facility] Last Admin: 05/18/19 13:55 Dose: 25 mg Morphine Sulfate (Morphine Sulfate) 2 mg IVPUSH Q4H PRN PRN Reason: PAIN LEVEL 7 - 10 Pantoprazole Sodium (Protonix Iv) 40 mg IVPUSH DAILY [facility] Last Admin: 05/18/19 10:49 Dose: 40 mg Polyethylene Glycol (Miralax (For Daily Use) -) 17 gm PO DAILY [facility] Last Admin: 05/18/19 10:48 Dose: 17 grams Scopolamine HBr (Transderm-Scop -) 1 patch TD Q72H [facility] Last Admin: 05/17/19 08:00 Dose: Not Given Thiamine HCl (Vitamin B1 Injection -) 200 mg IVPB DAILY [facility] Last Admin: 05/18/19 10:49 Dose: 200 mg - Objective Vital Signs: Vital Signs Temperature 99.5 F 02/09/20 17:00 Pulse Rate 107 H 05/18/19 17:00 Respiratory Rate 30 H 05/18/19 17:00 Blood Pressure 154/94 05/18/19 17:00 O2 Sat by Pulse Oximetry (%) 100 05/18/19 10:00 Constitutional: Yes: Obese Eyes: Yes: WNL HENT: Yes: WNL Neck: Yes: Decreased ROM Cardiovascular: Yes: Pulse Irregular, JVD, S1, S2 Respiratory: Yes: Mechanically Ventilated Gastrointestinal: Yes: Soft, Abdomen, Obese Genitourinary: Yes: Andrews Present. No: Anuria Breast(s): Yes: WNL Musculoskeletal: Yes: Muscle Weakness Extremities: Yes: Cool Edema: Yes Edema: LLE: Trace, RLE: Trace Peripheral Pulses WNL: Yes Integumentary: Yes: WNL Neurological: Yes: Weakness Psychiatric: Yes: Other Labs: CBC, BMP 05/18/19 05:35 05/18/19 07:56 INR, PTT INR 1.09 (0.83-1.09) 05/05/19 05:30 Abnormal Lab Results 05/18/19 05/18/19 05/18/19 05:35 05:35 07:56 Hgb 10.1 L Hct 32.7 L MCH 24.7 L MCHC 30.8 L RDW 18.9 H Plt Count 125 L PTT (Actin FS) 69.4 H Chloride 108 H Anion Gap 5 L BUN 63.1 H Creatinine 1.6 H Random Glucose 214 H AST 52 H ALT 206 H Total Protein 5.1 L Albumin 2.4 L - ....Imaging Chest X-ray: Image Reviewed Other: Image Reviewed (telemetry: AF; periods of RVR) Problem List - Problems (1) Acute hypercapnic respiratory failure due to obstructive sleep apnea Assessment/Plan: unable to wean off ventilator today Code(s): J96.02 - ACUTE RESPIRATORY FAILURE WITH HYPERCAPNIA; G47.33 - OBSTRUCTIVE SLEEP APNEA (ADULT) (PEDIATRIC) (2) Atrial fibrillation and flutter Assessment/Plan: On diltiazem IV. Add diltiazem PO while titrating off IV drip. On metoprolol tartrate 25 mg tid. On digoxin; keep level 0.4-0.8. Monitor carefully while on three agents affecting AV conduction. Maintain electrolytes WNL. Code(s): I48.91 - UNSPECIFIED ATRIAL FIBRILLATION; I48.92 - UNSPECIFIED ATRIAL FLUTTER (3) Pneumonia Assessment/Plan: Antibiotics, O2, steroids per inside sales agent, ID. Code(s): J18.9 - PNEUMONIA, UNSPECIFIED ORGANISM Qualifiers: Pneumonia type: due to unspecified organism (4) Sarcoidosis of other sites Code(s): D86.89 - SARCOIDOSIS OF OTHER SITES (5) Sleep apnea Code(s): G47.30 - SLEEP APNEA, UNSPECIFIED (6) Morbid obesity Code(s): E66.01 - MORBID (SEVERE) OBESITY DUE TO EXCESS CALORIES (7) Renal failure Assessment/Plan: improving electrolytes, Cr, volume status. On diuretics. F/u with nephroligist Code(s): N19 - UNSPECIFIED KIDNEY FAILURE Assessment/Plan CCU time spent: 35 minutes
[2019-05-18] MEDS: dilTIAZem HCL 30 MG TABLET (FP) PO SCH ×2 (19:15→21:08)
[2019-05-18] MEDS: CHLORHEXIDINE GLUCONATE 4% CLEANSER FOR DECOLONIZATION TP SCH (21:09)
[2019-05-19] MEDS ORDERED: DEXTROSE 5%-WATER 100 ML IVPB ONE ×4 (02:56→21:53)
[2019-05-19] MEDS ORDERED: MEROPENEM 500 MG VIAL (RESTRICTED TO ID) IVPB ONE ×4 (02:56→21:53)
[2019-05-19] MEDS: DILTIAZEM INJECTION 125 MG in DEXTROSE 5%-WATER - 100 ML IVPB SCH (03:00)
[2019-05-19] MEDS: MEROPENEM 500 MG in DEXTROSE 5%-WATER 100 ML IVPB SCH ×3 (03:00→17:36)
[2019-05-19] MEDS: INSULIN SLIDING SCALE (NOVOLOG) 1 VIAL SQ SCH ×3 (04:00→11:29)
[2019-05-19] MEDS: METOPROLOL TARTRATE 25 MG TABLET (FP) GT SCH ×3 (05:24→22:27)
[2019-05-19] MEDS: dilTIAZem HCL 30 MG TABLET (FP) PO SCH ×3 (05:24→22:26)
[2019-05-19] MEDS: PROPOFOL 1,000,000 MCG/100 ML VIAL IVPB SCH ×2 (06:05→13:22)
[2019-05-19] MEDS: HEPARIN SOD,PORK IN 0.45% NACL 25,000 UNITS/500 ML INFUS.BAG IVPB SCH ×2 (06:08→14:48)
[2019-05-19 06:34] LABS: HEMATOCRIT 32.6 % (35.4-49); HEMOGLOBIN 9.9 GM/dL (11.7-16.9); MCH 24.8 pg (25.7-33.7); MCHC 30.5 g/dl (32.0-35.9); MEAN CELL VOLUME 81.3 fl (80-96); MEAN PLT VOLUME 11.9 fl (7.5-11.1); PLATELET COUNT 122 K/MM3 (134-434); RBC 4.01 M/mm3 (4.00-5.60); WHITE BLOOD COUNT 5.9 K/mm3 (4.0-10.0)
[2019-05-19] MEDS ORDERED: PT OWN MED DRAWER 7, Y5N ONE ×3 (08:07→21:55)
[2019-05-19] MEDS: AMINO ACIDS/PROTEIN HYDROLYS 30 ML LIQUID.PKT PO SCH ×2 (08:10→17:36)
[2019-05-19 08:26] LABS: ALBUMIN 2.4 g/dl (3.4-5.0); BILIRUBIN,TOTAL 0.4 mg/dL (0.2-1); BLOOD UREA NITROGEN 67.4 mg/dL (7-18); CALCIUM 8.2 mg/dL (8.5-10.1); CREATININE 1.6 mg/dL (0.55-1.3); POTASSIUM 4.1 mmol/L (3.5-5.1); TOT PROT 5.4 g/dl (6.4-8.2)
--- NOTE | 2019-05-19 09:47 | PN ---
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, Physician History of Present Illness: Awake off sedation and intubated on cardizem, Lasix gtt and heparin gtt, remains off levophed gtt. - Current Medication List Current Medications: Active Medications Amino Acids (Prosource No Carb Liquid Pkt) 30 ml PO BID@0800,1730 [facility] Last Admin: 05/19/19 08:10 Dose: 30 ml Chlorhexidine Gluconate (Hibiclens For Decolonization -) 1 applic TP HS [facility] Last Admin: 05/18/19 21:09 Dose: 1 applic Digoxin (Lanoxin Injection -) 0.125 mg IVPUSH DAILY [facility] Last Admin: 05/18/19 10:48 Dose: 0.125 mg Diltiazem HCl (Cardizem Injection -) 10 mg IVPUSH Q4H PRN PRN Reason: TACHYCARDIA Last Admin: 05/10/19 08:30 Dose: 10 mg Diltiazem HCl (Cardizem -) 30 mg PO TID [facility] Last Admin: 05/19/19 05:24 Dose: 30 mg Docusate Sodium (Colace Liquid -) 200 mg PO DAILY PRN PRN Reason: CONSTIPATION Last Admin: 05/16/19 14:28 Dose: 200 mg Ferrous Sulfate (Feosol) 300 mg NGT BID [facility] Last Admin: 05/18/19 21:08 Dose: 300 mg Heparin Sodium (Porcine) (Heparin -) 1,000 unit IVPUSH PRN PRN PRN Reason: Heparin Heparin Sodium (Porcine) (Heparin -) 5,000 unit IVPUSH PRN PRN PRN Reason: Heparin Diltiazem HCl 125 mg/ Dextrose 125 mls @ 10 mls/hr IVPB TITR [facility]; Protocol Last Admin: 05/19/19 03:00 Dose: 7 mg/hr, 7 mls/hr Propofol (Diprivan -) 1,000,000 mcg in 100 mls @ 3.463 mls/hr IVPB TITR [facility]; Protocol Last Admin: 05/19/19 06:05 Dose: 40 mcg/kg/min, 27.705 mls/hr HEPARIN SOD,PORK IN 0.45% NACL (Heparin-1/2ns 25,000 Units/500) 25,000 units in 500 mls @ 20 mls/hr IVPB TITR [facility]; Protocol Last Admin: 05/19/19 06:08 Dose: 1,150 units/hr, 23 mls/hr Meropenem 500 mg/ Dextrose 100 mls @ 200 mls/hr IVPB Q8H-IV [facility] Last Admin: 05/19/19 03:00 Dose: 200 mls/hr Furosemide 100 mg/ Dextrose 100 mls @ 10 mls/hr IVPB TITR [facility] Last Admin: 05/18/19 21:09 Dose: 10 mg/hr, 10 mls/hr Insulin Aspart (Novolog Vial Sliding Scale -) 1 vial SQ Q4H [facility]; Protocol Last Admin: 05/19/19 07:56 Dose: 6 units Metoprolol Tartrate (Lopressor Injection -) 5 mg IVPUSH Q4H PRN PRN Reason: TACHYCARDIA Last Admin: 05/17/19 18:09 Dose: 5 mg Metoprolol Tartrate (Lopressor -) 25 mg GT TID [facility] Last Admin: 05/19/19 05:24 Dose: 25 mg Morphine Sulfate (Morphine Sulfate) 2 mg IVPUSH Q4H PRN PRN Reason: PAIN LEVEL 7 - 10 Pantoprazole Sodium (Protonix Iv) 40 mg IVPUSH DAILY [facility] Last Admin: 05/18/19 10:49 Dose: 40 mg Polyethylene Glycol (Miralax (For Daily Use) -) 17 gm PO DAILY [facility] Last Admin: 05/18/19 10:48 Dose: 17 grams Scopolamine HBr (Transderm-Scop -) 1 patch TD Q72H [facility] Last Admin: 05/17/19 08:00 Dose: Not Given Thiamine HCl (Vitamin B1 Injection -) 200 mg IVPB DAILY [facility] Last Admin: 05/18/19 10:49 Dose: 200 mg - Objective Vital Signs: Vital Signs Temperature 98.8 F 05/19/19 08:00 Pulse Rate 78 05/19/19 08:20 Respiratory Rate 31 H 05/19/19 08:20 Blood Pressure 96/61 05/19/19 08:00 O2 Sat by Pulse Oximetry (%) 99 05/19/19 08:20 Constitutional: Yes: No Distress, Calm Neck: Yes: Supple Cardiovascular: Yes: Regular Rate and Rhythm Respiratory: Yes: Intubated, Mechanically Ventilated Gastrointestinal: Yes: Soft, Hypoactive Bowel Sounds Genitourinary: Yes: Andrews Present Edema: Yes Edema: LLE: Trace, RLE: Trace Labs: CBC, BMP 05/19/19 05:30 02/10/20 05:30 INR, PTT INR 1.09 (0.83-1.09) 05/05/19 05:30 - ....Imaging EKG: Report Reviewed (Tele: Rate-controlled aflutter) Problem List - Problems (1) Pneumonia Code(s): J18.9 - PNEUMONIA, UNSPECIFIED ORGANISM Qualifiers: Pneumonia type: due to unspecified organism (2) Acute hypercapnic respiratory failure due to obstructive sleep apnea Code(s): J96.02 - ACUTE RESPIRATORY FAILURE WITH HYPERCAPNIA; G47.33 - OBSTRUCTIVE SLEEP APNEA (ADULT) (PEDIATRIC) (3) Acute decompensated heart failure Code(s): I50.9 - HEART FAILURE, UNSPECIFIED (4) Acute renal failure Code(s): N17.9 - ACUTE KIDNEY FAILURE, UNSPECIFIED Qualifiers: Acute renal failure type: unspecified Qualified Code(s): N17.9 - Acute kidney failure, unspecified (5) Sarcoidosis of other sites Code(s): D86.89 - SARCOIDOSIS OF OTHER SITES (6) Type 2 diabetes mellitus Code(s): E11.9 - TYPE 2 DIABETES MELLITUS WITHOUT COMPLICATIONS Qualifiers: Diabetes mellitus termite technician insulin use: without termite technician use Diabetes mellitus complication detail: with chronic kidney disease Chronic kidney disease stage: stage 2 (mild) (7) Atrial fibrillation and flutter Code(s): I48.91 - UNSPECIFIED ATRIAL FIBRILLATION; I48.92 - UNSPECIFIED ATRIAL FLUTTER Assessment/Plan 05/01/2019 Normal LV and RV size and fxn, tr TR 03/14/2019 Normal LV size and fxn, no thrombus ADEEL, mild-mod dilated and HK RV, tr MR, mild-mod TR, tr CO, trace pericardial effusion 1. Acute hypoxic and hypercapneic respiratory failure currently on mechanical ventilation 2. Pneumonia, septic shock, Gram Positive Bacteremia and ARDS 3. Sarcoidosis confirmed by skin biopsy, r/o cardiac involvement 4. OSAS nonadherent to CPAP 5. Paroxysmal Aflutter/Afib with RVR 6. Acute on chronic diastolic heart failure 7. Acute on CKD with hyperkalemia resolving 8. Type 2 DM 9. Anemia PLAN: 1. Empiric antibiotic, IV steroid taper with GI protection, bronchodilator and enteral feeds 2. Weaned off Levophed for MAP>65 mmHg 3. Vent wean per ABG, taper fiO2 to keep SpO2 >90%, SBT as tolerated 4. Rate-control with IV and oral Lopressor, IV digoxin, uptitrrate oral Cardizem while wean Cardizem drip and unfractionated Heparin drip before starting oral regiment such as Eliquis 5 mg BID 5. Lasix gtt with monitor renal function and electrolytes 6. Resume lisinopril 10 mg QD once renal function and hyperkalemia stabilizes 7. Follow up with Dr. Genaro Davila (cardiology at [place]). Consider cardiac PET or MRI to exclude cardiac involvement in sarcoidosis as outpatient
[2019-05-19] MEDS: FERROUS SO4 300 MG/5 ML ORAL SOLN UNIT DOSE CUPS NGT SCH ×2 (10:06→22:26)
[2019-05-19] MEDS: DIGOXIN 0.5 MG/2 ML AMPUL IVPUSH SCH (10:06)
[2019-05-19] MEDS: POLYETHYLENE GLYCOL 3350 119 GM BTL PO SCH (10:11)
[2019-05-19] MEDS: THIAMINE HCL 200 MG/2 ML VIAL IVPB SCH (10:12)
[2019-05-19] MEDS: PANTOPRAZOLE SODIUM 40 MG VIAL IVPUSH SCH (10:12)
[2019-05-19] MEDS ORDERED: DILTIAZEM INJECTION 125 MG in DEXTROSE 5%-WATER - 100 ML IVPB SCH (10:21)
[2019-05-19] MEDS: FUROSEMIDE INJECTION 100 MG in DEXTROSE 5%-WATER - 90 ML IVPB SCH ×2 (11:29→14:55)
--- NOTE | 2019-05-19 11:59 | PN ---
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, Physician History of Present Illness: AWAKE ON VENTILATOR TEMPS DOWN SPUTUM C/S ESBL WBC WNL SPUTUM C/S LF - Current Medication List Current Medications: Active Medications Amino Acids (Prosource No Carb Liquid Pkt) 30 ml PO BID@0800,1730 [facility] Last Admin: 05/19/19 08:10 Dose: 30 ml Chlorhexidine Gluconate (Hibiclens For Decolonization -) 1 applic TP HS [facility] Last Admin: 05/18/19 21:09 Dose: 1 applic Digoxin (Lanoxin Injection -) 0.125 mg IVPUSH DAILY [facility] Last Admin: 05/19/19 10:06 Dose: 0.125 mg Diltiazem HCl (Cardizem Injection -) 10 mg IVPUSH Q4H PRN PRN Reason: TACHYCARDIA Last Admin: 05/10/19 08:30 Dose: 10 mg Diltiazem HCl (Cardizem -) 30 mg PO TID [facility] Last Admin: 05/19/19 05:24 Dose: 30 mg Docusate Sodium (Colace Liquid -) 200 mg PO DAILY PRN PRN Reason: CONSTIPATION Last Admin: 05/16/19 14:28 Dose: 200 mg Ferrous Sulfate (Feosol) 300 mg NGT BID [facility] Last Admin: 05/19/19 10:06 Dose: 300 mg Heparin Sodium (Porcine) (Heparin -) 1,000 unit IVPUSH PRN PRN PRN Reason: Heparin Heparin Sodium (Porcine) (Heparin -) 5,000 unit IVPUSH PRN PRN PRN Reason: Heparin Propofol (Diprivan -) 1,000,000 mcg in 100 mls @ 3.463 mls/hr IVPB TITR [facility]; Protocol Last Titration: 05/19/19 10:04 Dose: 0 mcg/kg/min, 0 mls/hr HEPARIN SOD,PORK IN 0.45% NACL (Heparin-1/2ns 25,000 Units/500) 25,000 units in 500 mls @ 20 mls/hr IVPB TITR [facility]; Protocol Last Admin: 05/19/19 06:08 Dose: 1,150 units/hr, 23 mls/hr Meropenem 500 mg/ Dextrose 100 mls @ 200 mls/hr IVPB Q8H-IV [facility] Last Admin: 05/19/19 10:11 Dose: 200 mls/hr Furosemide 100 mg/ Dextrose 100 mls @ 10 mls/hr IVPB TITR [facility] Last Admin: 05/19/19 11:29 Dose: Not Given Diltiazem HCl 125 mg/ Dextrose 125 mls @ 5 mls/hr IVPB TITR [facility]; Protocol Last Admin: 05/19/19 11:28 Dose: Not Given Insulin Aspart (Novolog Vial Sliding Scale -) 1 vial SQ Q4H [facility]; Protocol Last Admin: 05/19/19 11:29 Dose: 6 units Metoprolol Tartrate (Lopressor Injection -) 5 mg IVPUSH Q4H PRN PRN Reason: TACHYCARDIA Last Admin: 05/17/19 18:09 Dose: 5 mg Metoprolol Tartrate (Lopressor -) 25 mg GT TID [facility] Last Admin: 05/19/19 05:24 Dose: 25 mg Morphine Sulfate (Morphine Sulfate) 2 mg IVPUSH Q4H PRN PRN Reason: PAIN LEVEL 7 - 10 Pantoprazole Sodium (Protonix Iv) 40 mg IVPUSH DAILY [facility] Last Admin: 05/19/19 10:12 Dose: 40 mg Polyethylene Glycol (Miralax (For Daily Use) -) 17 gm PO DAILY [facility] Last Admin: 05/19/19 10:11 Dose: 17 grams Scopolamine HBr (Transderm-Scop -) 1 patch TD Q72H [facility] Last Admin: 05/17/19 08:00 Dose: Not Given Thiamine HCl (Vitamin B1 Injection -) 200 mg IVPB DAILY [facility] Last Admin: 05/19/19 10:12 Dose: 200 mg - Objective Vital Signs: Vital Signs Temperature 98.8 F 05/19/19 08:00 Pulse Rate 77 05/19/19 10:06 Respiratory Rate 39 H 05/19/19 11:55 Blood Pressure 96/61 05/19/19 08:00 O2 Sat by Pulse Oximetry (%) 99 05/19/19 08:20 Constitutional: Yes: No Distress, Obese Cardiovascular: Yes: Regular Rate and Rhythm, S1, S2 Respiratory: Yes: Mechanically Ventilated Gastrointestinal: Yes: Normal Bowel Sounds, Soft. No: Tenderness Edema: Yes Labs: CBC, BMP 05/19/19 05:30 05/19/19 05:30 INR, PTT INR 1.09 (0.83-1.09) 05/05/19 05:30 Assessment/Plan RESP FAILURE S/P RE-INTUBATION CHF/ PNEUMONIA + SPUTUM C/S ESBL RENAL FAILURE IMPROVED CONTINUE VENTILATORY/ HEMODYNAMIC SUPPORT CONTINUE MEROPENEM VENTILATORY SUPPORT
[2019-05-19] MEDS ORDERED: INSULIN REGULAR 100 UNITS in SODIUM CHLORIDE 99 ML IVPB SCH (12:15)
--- NOTE | 2019-05-19 12:18 | PN ---
Teaching Attending Note Name of Resident: Zoë Schmidt ATTENDING PHYSICIAN STATEMENT I saw and evaluated the patient. I reviewed the resident's note and discussed the case with the resident. I agree with the resident's findings and plan as documented. SUBJECTIVE: Patient seen and examined in the ICU. Remains intubated and sedated. Lasix drip. Intake & Output 05/16/19 05/17/19 05/18/19 05/19/19 23:59 23:59 23:59 23:59 Intake Total 5921.0 2339.7 2702 1571 Output Total 2300 1200 4300 1000 Balance 3621.0 1139.7 -1598 571 Weight 258 lb 14.4 oz 271 lb 9.6 oz 264 lb 4.8 oz 264 lb Last Vital Signs Temp Pulse Resp BP Pulse Ox 98.8 F 77 39 H 96/61 99 05/19/19 08:00 05/19/19 10:06 05/19/19 11:55 05/19/19 08:00 05/19/19 08:20 Active Medications Amino Acids (Prosource No Carb Liquid Pkt) 30 ml PO BID@0800,1730 [facility] Last Admin: 05/19/19 08:10 Dose: 30 ml Chlorhexidine Gluconate (Hibiclens For Decolonization -) 1 applic TP HS [facility] Last Admin: 05/18/19 21:09 Dose: 1 applic Digoxin (Lanoxin Injection -) 0.125 mg IVPUSH DAILY [facility] Last Admin: 05/19/19 10:06 Dose: 0.125 mg Diltiazem HCl (Cardizem Injection -) 10 mg IVPUSH Q4H PRN PRN Reason: TACHYCARDIA Last Admin: 05/10/19 08:30 Dose: 10 mg Diltiazem HCl (Cardizem -) 30 mg PO TID [facility] Last Admin: 05/19/19 05:24 Dose: 30 mg Docusate Sodium (Colace Liquid -) 200 mg PO DAILY PRN PRN Reason: CONSTIPATION Last Admin: 05/16/19 14:28 Dose: 200 mg Ferrous Sulfate (Feosol) 300 mg NGT BID [facility] Last Admin: 05/19/19 10:06 Dose: 300 mg Heparin Sodium (Porcine) (Heparin -) 1,000 unit IVPUSH PRN PRN PRN Reason: Heparin Heparin Sodium (Porcine) (Heparin -) 5,000 unit IVPUSH PRN PRN PRN Reason: Heparin Propofol (Diprivan -) 1,000,000 mcg in 100 mls @ 3.463 mls/hr IVPB TITR [facility]; Protocol Last Titration: 05/19/19 10:04 Dose: 0 mcg/kg/min, 0 mls/hr HEPARIN SOD,PORK IN 0.45% NACL (Heparin-1/2ns 25,000 Units/500) 25,000 units in 500 mls @ 20 mls/hr IVPB TITR [facility]; Protocol Last Admin: 05/19/19 06:08 Dose: 1,150 units/hr, 23 mls/hr Meropenem 500 mg/ Dextrose 100 mls @ 200 mls/hr IVPB Q8H-IV [facility] Last Admin: 05/19/19 10:11 Dose: 200 mls/hr Furosemide 100 mg/ Dextrose 100 mls @ 10 mls/hr IVPB TITR [facility] Last Admin: 05/19/19 11:29 Dose: Not Given Diltiazem HCl 125 mg/ Dextrose 125 mls @ 5 mls/hr IVPB TITR [facility]; Protocol Last Admin: 05/19/19 11:28 Dose: Not Given Insulin Human Regular 100 (units/ Sodium Chloride) 100 mls @ 11.97 mls/hr IVPB TITR [facility]; Protocol Metoprolol Tartrate (Lopressor Injection -) 5 mg IVPUSH Q4H PRN PRN Reason: TACHYCARDIA Last Admin: 05/17/19 18:09 Dose: 5 mg Metoprolol Tartrate (Lopressor -) 25 mg GT TID [facility] Last Admin: 05/19/19 05:24 Dose: 25 mg Morphine Sulfate (Morphine Sulfate) 2 mg IVPUSH Q4H PRN PRN Reason: PAIN LEVEL 7 - 10 Pantoprazole Sodium (Protonix Iv) 40 mg IVPUSH DAILY [facility] Last Admin: 05/19/19 10:12 Dose: 40 mg Polyethylene Glycol (Miralax (For Daily Use) -) 17 gm PO DAILY [facility] Last Admin: 05/19/19 10:11 Dose: 17 grams Scopolamine HBr (Transderm-Scop -) 1 patch TD Q72H [facility] Last Admin: 05/17/19 08:00 Dose: Not Given Thiamine HCl (Vitamin B1 Injection -) 200 mg IVPB DAILY [facility] Last Admin: 05/19/19 10:12 Dose: 200 mg GEN: Intubated and sedated. 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 Laboratory Results - last 24 hr 05/18/19 05/18/19 05/18/19 07:56 17:53 21:20 WBC RBC Hgb Hct MCV MCH MCHC RDW Plt Count MPV PTT (Actin FS) Sodium 145 Potassium 4.2 Chloride 108 H Carbon Dioxide 32 Anion Gap 5 L BUN 63.1 H Creatinine 1.6 H Est GFR (CKD-EPI)AfAm 56.97 Est GFR (CKD-EPI)NonAf 49.15 POC Glucometer 278 298 Random Glucose 214 H Calcium 8.6 Phosphorus 4.8 Magnesium 2.2 Total Bilirubin 0.4 AST 52 H ALT 206 H Alkaline Phosphatase 89 Total Protein 5.1 L Albumin 2.4 L 05/19/19 05/19/19 05/19/19 05:30 05:30 05:42 WBC 5.9 RBC 4.01 Hgb 9.9 L Hct 32.6 L MCV 81.3 MCH 24.8 L MCHC 30.5 L RDW 20.0 H Plt Count 122 L MPV 11.9 H PTT (Actin FS) Sodium 143 Potassium 4.1 Chloride 103 Carbon Dioxide 35 H Anion Gap 5 L BUN 67.4 H Creatinine 1.6 H Est GFR (CKD-EPI)AfAm 56.97 Est GFR (CKD-EPI)NonAf 49.15 POC Glucometer 254 Random Glucose 262 H Calcium 8.2 L Phosphorus Magnesium Total Bilirubin 0.4 AST 33 ALT 153 H Alkaline Phosphatase 95 Total Protein 5.4 L Albumin 2.4 L 05/19/19 05/19/19 05/19/19 07:00 07:44 11:24 WBC RBC Hgb Hct MCV MCH MCHC RDW Plt Count MPV PTT (Actin FS) 70.2 H Sodium Potassium Chloride Carbon Dioxide Anion Gap BUN Creatinine Est GFR (CKD-EPI)AfAm Est GFR (CKD-EPI)NonAf POC Glucometer 256 287 Random Glucose Calcium Phosphorus Magnesium Total Bilirubin AST ALT Alkaline Phosphatase Total Protein Albumin ASSESS: Acute Hypoxic and Hypercapneic Respiratory Failure Pneumonia Gram Positive Bacteremia Septic Shock Volume Overload ARDS Lactic Acidosis Hyperkalemia Acute Kidney Injury Atrial Flutter with RVR HTN DM Anemia PLAN: - Cont Vent Support - Wean FiO2 as tolerated - Nebs - Diurese; cont Lasix drip - SBT QD - Sedation Vacation QD to assess mental status - Abx - Rate Control - AC - Strict I's & O's - Monitor BUN/Cr - Replete e-lytes prn - FSs - SSI - TFs - DVT/GI prophylaxis - Trach - GI ppx - continue ICU monitoring - Will likely need Denise Maya Critical care time spent in reviewing chart, evaluating patient and formulating plan - 36 minutes.
--- NOTE | 2019-05-19 14:37 | PN ---
Physical Exam: SUBJECTIVE: Patient seen and examined in the morning. No acute events overnight. Patient remains intubated, does not respond to questions. Central line changed today. OBJECTIVE: Vital Signs Period Temp Pulse Resp BP Sys/[place] Pulse Ox Last 24 Hr 98.1 F-99.5 F 75-108 28-39 83-154/56-94 99-100 GENERAL: The patient is sedated and intubated. Minimally responsive to sternal rub. HEAD: Normal with no signs of trauma. Endotracheal tube in place. ENT: Ears normal, nares patent, oropharynx clear without exudates, moist mucous membranes. LUNGS: Mechanical ventilation. Scattered ronchi. No wheezes or crackles. HEART: Regular rate and rhythm, S1, S2 without murmur, rub or gallop. ABDOMEN: Soft, nontender, nondistended, normoactive bowel sounds, no guarding, no rebound, no hepatosplenomegaly, no masses. EXTREMITIES: 2+ pulses,warm, well-perfused, no edema. NEUROLOGICAL: Unable to assess. SKIN: Warm, dry, normal turgor, no rashes or lesions noted Laboratory Results - last 24 hr CBC, BMP 05/19/19 05:30 05/19/19 05:30 Active Medications Amino Acids (Prosource No Carb Liquid Pkt) 30 ml PO BID@0800,1730 [facility] Last Admin: 05/19/19 08:10 Dose: 30 ml Chlorhexidine Gluconate (Hibiclens For Decolonization -) 1 applic TP HS [facility] Last Admin: 05/18/19 21:09 Dose: 1 applic Digoxin (Lanoxin Injection -) 0.125 mg IVPUSH DAILY [facility] Last Admin: 05/19/19 10:06 Dose: 0.125 mg Diltiazem HCl (Cardizem Injection -) 10 mg IVPUSH Q4H PRN PRN Reason: TACHYCARDIA Last Admin: 05/10/19 08:30 Dose: 10 mg Diltiazem HCl (Cardizem -) 30 mg PO TID [facility] Last Admin: 05/19/19 14:07 Dose: 30 mg Docusate Sodium (Colace Liquid -) 200 mg PO DAILY PRN PRN Reason: CONSTIPATION Last Admin: 05/16/19 14:28 Dose: 200 mg Ferrous Sulfate (Feosol) 300 mg NGT BID [facility] Last Admin: 05/19/19 10:06 Dose: 300 mg Heparin Sodium (Porcine) (Heparin -) 1,000 unit IVPUSH PRN PRN PRN Reason: Heparin Heparin Sodium (Porcine) (Heparin -) 5,000 unit IVPUSH PRN PRN PRN Reason: Heparin Propofol (Diprivan -) 1,000,000 mcg in 100 mls @ 3.463 mls/hr IVPB TITR [facility]; Protocol Last Admin: 05/19/19 13:22 Dose: Not Given HEPARIN SOD,PORK IN 0.45% NACL (Heparin-1/2ns 25,000 Units/500) 25,000 units in 500 mls @ 20 mls/hr IVPB TITR [facility]; Protocol Last Titration: 05/19/19 12:30 Dose: 0 units/hr, 0 mls/hr Meropenem 500 mg/ Dextrose 100 mls @ 200 mls/hr IVPB Q8H-IV [facility] Last Admin: 05/19/19 10:11 Dose: 200 mls/hr Furosemide 100 mg/ Dextrose 100 mls @ 10 mls/hr IVPB TITR [facility] Last Admin: 05/19/19 11:29 Dose: Not Given Diltiazem HCl 125 mg/ Dextrose 125 mls @ 5 mls/hr IVPB TITR [facility]; Protocol Last Admin: 05/19/19 11:28 Dose: Not Given Insulin Human Regular 100 (units/ Sodium Chloride) 100 mls @ 11.97 mls/hr IVPB TITR [facility]; Protocol Metoprolol Tartrate (Lopressor Injection -) 5 mg IVPUSH Q4H PRN PRN Reason: TACHYCARDIA Last Admin: 05/17/19 18:09 Dose: 5 mg Metoprolol Tartrate (Lopressor -) 25 mg GT TID [facility] Last Admin: 05/19/19 14:06 Dose: 25 mg Morphine Sulfate (Morphine Sulfate) 2 mg IVPUSH Q4H PRN PRN Reason: PAIN LEVEL 7 - 10 Pantoprazole Sodium (Protonix Iv) 40 mg IVPUSH DAILY [facility] Last Admin: 05/19/19 10:12 Dose: 40 mg Polyethylene Glycol (Miralax (For Daily Use) -) 17 gm PO DAILY [facility] Last Admin: 05/19/19 10:11 Dose: 17 grams Scopolamine HBr (Transderm-Scop -) 1 patch TD Q72H [facility] Last Admin: 05/17/19 08:00 Dose: Not Given Thiamine HCl (Vitamin B1 Injection -) 200 mg IVPB DAILY [facility] Last Admin: 05/19/19 10:12 Dose: 200 mg ASSESSMENT/PLAN: Patient is a 53 year old male with PMH of TIIDM, HFpEF (last EF 45-50%), EMMY ( non-adherent to CPAP) and atrial flutter, with acute hypoxic hypercapneic respiratory failure, found to have ARDS. Patient was extubated, and required reintubation due to mental status. Neuro: -Pt is awake and alert when sedation is held. Sedated on Precedex and Propofol -CT head (05/13/19): no acute hemorrhage or infarcts -Bedside EEG done today, F/U results -Bedside EMG shows no evidence of myopathy, but cannot rule out myopathic process. Cardiovascular: -Central line changed today -PMH of aflutter, HFpEF -Hx of paroxysmal Aflutter/Afib with RVR -Weaned off levophed for MAP >65 -Continue IV and oral lopressor, IV digoxin, uptitrate oral diltiazem with plan to wean off drip and unfractionated heparin drip before starting oral regiment ( Eliquis 5 mg BID) -Cardiology following (Dr. Encinas), appreciate recommendations -Spoke with phlebotomy instructor that sees as outpatient- recommended cardioversion, but has failed in the past x2. Pulmonary: -Acute hypoxic and hypercapneic respiratory failure, presenting with ARDS -Intubated, vent settings 350/30/10/40 -Cont vent support and wean FiO2 as tolerated. -SBT daily -Atrovent nebulizer PRN -Will likely need trach Renal: -Andrews catheter changed 05/19/19 -Hyperkalemia -Nepro diet to reduce Potassium -Hypernatremia resolving -D/C fluids. -Cont lasix gtt with close monitoring of electrolytes -Creatinine 1.6 -Free water replacement via NG tube- 250 cc Water Q6H -Resume lisinopril 10mg QD once renal function improves GI: -Protonix 40 mg IV daily -Promote tube feeds ID: -S/p Zosyn, 1 dose vanc -Fever of 100.6 on 05/13, repeat cultures sent -Sputum cx: ESBL -Cont IV meropenem (Day 4) -ID following (Dr. Lang) Endo: -BGM remains poorly controlled -Insulin drip started wtih BGM Q1H F: No standing IVF E: Trend K N: Nepro Tube Feeds DVT: Heparin drip GI: Protonix Central line changed on 05/19/19. Dispo: - Continue ICU level of care, family requests transfer to [place]. Visit type - Emergency Visit Emergency Visit: No - New Patient This patient is new to me today: Yes Date on this admission: 05/20/19 - Critical Care Critical Care patient: Yes Total Critical Care Time (in minutes): 45 Critical Care Statement: The care of this patient involved high complexity decision making to prevent further life threatening deterioration of the patient 's condition and/or to evaluate & treat vital organ system(s) failure or risk of failure. ATTENDING PHYSICIAN STATEMENT I saw and evaluated the patient. I reviewed the resident's note and discussed the case with the resident. I agree with the resident's findings and plan as documented. SUBJECTIVE: OBJECTIVE: ASSESSMENT AND PLAN:
--- NOTE | 2019-05-19 16:48 | PN ---
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, Physician History of Present Illness: Pt seen and examined at bedside. He remains in the ICU. He remains intubated. - Current Medication List Current Medications: Active Medications Amino Acids (Prosource No Carb Liquid Pkt) 30 ml PO BID@0800,1730 [facility] Last Admin: 05/19/19 08:10 Dose: 30 ml Chlorhexidine Gluconate (Hibiclens For Decolonization -) 1 applic TP HS ELISSA Last Admin: 05/18/19 21:09 Dose: 1 applic Digoxin (Lanoxin Injection -) 0.125 mg IVPUSH DAILY [facility] Last Admin: 05/19/19 10:06 Dose: 0.125 mg Diltiazem HCl (Cardizem Injection -) 10 mg IVPUSH Q4H PRN PRN Reason: TACHYCARDIA Last Admin: 05/10/19 08:30 Dose: 10 mg Diltiazem HCl (Cardizem -) 30 mg PO TID [facility] Last Admin: 05/19/19 14:07 Dose: 30 mg Docusate Sodium (Colace Liquid -) 200 mg PO DAILY PRN PRN Reason: CONSTIPATION Last Admin: 05/16/19 14:28 Dose: 200 mg Ferrous Sulfate (Feosol) 300 mg NGT BID [facility] Last Admin: 05/19/19 10:06 Dose: 300 mg Heparin Sodium (Porcine) (Heparin -) 1,000 unit IVPUSH PRN PRN PRN Reason: Heparin Heparin Sodium (Porcine) (Heparin -) 5,000 unit IVPUSH PRN PRN PRN Reason: Heparin Propofol (Diprivan -) 1,000,000 mcg in 100 mls @ 3.463 mls/hr IVPB TITR [facility]; Protocol Last Admin: 05/19/19 13:22 Dose: Not Given HEPARIN SOD,PORK IN 0.45% NACL (Heparin-1/2ns 25,000 Units/500) 25,000 units in 500 mls @ 20 mls/hr IVPB TITR [facility]; Protocol Last Admin: 05/19/19 14:48 Dose: 1,150 units/hr, 23 mls/hr Meropenem 500 mg/ Dextrose 100 mls @ 200 mls/hr IVPB Q8H-IV ELISSA Last Admin: 05/19/19 10:11 Dose: 200 mls/hr Furosemide 100 mg/ Dextrose 100 mls @ 10 mls/hr IVPB TITR [facility] Last Admin: 05/19/19 14:55 Dose: 10 mg/hr, 10 mls/hr Diltiazem HCl 125 mg/ Dextrose 125 mls @ 5 mls/hr IVPB TITR [facility]; Protocol Last Admin: 05/19/19 11:28 Dose: Not Given Insulin Human Regular 100 (units/ Sodium Chloride) 100 mls @ 3.5 mls/hr IVPB TITR [facility]; Protocol Metoprolol Tartrate (Lopressor Injection -) 5 mg IVPUSH Q4H PRN PRN Reason: TACHYCARDIA Last Admin: 05/17/19 18:09 Dose: 5 mg Metoprolol Tartrate (Lopressor -) 25 mg GT TID ELISSA Last Admin: 05/19/19 14:06 Dose: 25 mg Morphine Sulfate (Morphine Sulfate) 2 mg IVPUSH Q4H PRN PRN Reason: PAIN LEVEL 7 - 10 Pantoprazole Sodium (Protonix Iv) 40 mg IVPUSH DAILY [facility] Last Admin: 05/19/19 10:12 Dose: 40 mg Polyethylene Glycol (Miralax (For Daily Use) -) 17 gm PO DAILY [facility] Last Admin: 05/19/19 10:11 Dose: 17 grams Scopolamine HBr (Transderm-Scop -) 1 patch TD Q72H [facility] Last Admin: 05/17/19 08:00 Dose: Not Given Thiamine HCl (Vitamin B1 Injection -) 200 mg IVPB DAILY [facility] Last Admin: 05/19/19 10:12 Dose: 200 mg - Objective Vital Signs: Vital Signs Temperature 99.1 F 05/19/19 12:00 Pulse Rate 82 05/19/19 14:55 Respiratory Rate 30 H 05/19/19 14:00 Blood Pressure 101/62 05/19/19 14:55 O2 Sat by Pulse Oximetry (%) 99 05/19/19 08:20 Constitutional: Yes: Calm Eyes: Yes: Conjunctiva Clear HENT: Yes: Atraumatic Cardiovascular: Yes: S1, S2 Respiratory: Yes: Mechanically Ventilated Gastrointestinal: Yes: Soft, Abdomen, Obese Genitourinary: Yes: Andrews Present Musculoskeletal: Yes: Muscle Weakness Edema: Yes Edema: LLE: Trace, RLE: Trace Neurological: Yes: Lethargy Labs: CBC, BMP 05/19/19 05:30 05/19/19 05:30 INR, PTT INR 1.09 (0.83-1.09) 05/05/19 05:30 - ....Imaging Chest X-ray: Report Reviewed Problem List - Problems (1) Acute decompensated heart failure Code(s): I50.9 - HEART FAILURE, UNSPECIFIED (2) Atrial fibrillation and flutter Code(s): I48.91 - UNSPECIFIED ATRIAL FIBRILLATION; I48.92 - UNSPECIFIED ATRIAL FLUTTER (3) Hyperkalemia Code(s): E87.5 - HYPERKALEMIA (4) Pneumonia Code(s): J18.9 - PNEUMONIA, UNSPECIFIED ORGANISM Qualifiers: Pneumonia type: due to unspecified organism (5) Sarcoidosis of other sites Code(s): D86.89 - SARCOIDOSIS OF OTHER SITES Assessment/Plan Current Medications Generic Name Dose Route Start Last Admin Trade Name Freq PRN Reason Stop Dose Admin Amino Acids 30 ml 05/18/19 17:30 05/19/19 08:10 Prosource No Carb Liquid Pkt PO 30 ml BID@0800,1730 ELISSA Administration Chlorhexidine Gluconate 1 applic 04/30/19 22:00 05/18/19 21:09 Hibiclens For Decolonization - TP 1 applic HS ELISSA Administration Digoxin 0.125 mg 05/12/19 11:45 05/19/19 10:06 Lanoxin Injection - IVPUSH 0.125 mg DAILY ELISSA Administration Diltiazem HCl 10 mg 05/10/19 05:04 05/10/19 08:30 Cardizem Injection - IVPUSH 10 mg Q4H PRN Administration TACHYCARDIA Diltiazem HCl 30 mg 05/18/19 18:30 05/19/19 14:07 Cardizem - PO 30 mg TID ELISSA Administration Docusate Sodium 200 mg 05/15/19 13:37 05/16/19 14:28 Colace Liquid - PO 200 mg DAILY PRN Administration CONSTIPATION Ferrous Sulfate 300 mg 05/09/19 10:00 05/19/19 10:06 Feosol NGT 300 mg BID ELISSA Administration Heparin Sodium (Porcine) 1,000 unit 05/14/19 15:27 Heparin - IVPUSH PRN PRN Heparin Heparin Sodium (Porcine) 5,000 unit 05/14/19 15:27 Heparin - IVPUSH PRN PRN Heparin Propofol 1,000,000 mcg in 100 mls @ 3.463 mls/hr 05/13/19 08:30 05/19/19 13: 22 Diprivan - IVPB Not Given TITR ELISSA Protocol 5 MCG/KG/MIN HEPARIN SOD,PORK IN 0.45% NACL 25,000 units in 500 mls @ 20 mls/hr 05/14/19 15 :30 05/19/19 14:48 Heparin-1/2ns 25,000 Units/500 IVPB 1,150 units/hr TITR ELISSA 23 mls/hr Administration Protocol 1,000 UNITS/HR Meropenem 500 mg/ Dextrose 100 mls @ 200 mls/hr 05/16/19 18:00 05/19/19 10:11 IVPB 200 mls/hr Q8H-IV ELISSA Administration Furosemide 100 mg/ Dextrose 100 mls @ 10 mls/hr 05/17/19 11:00 05/19/19 14:55 IVPB 10 mg/hr TITR ELISSA 10 mls/hr Administration 10 MG/HR Diltiazem HCl 125 mg/ Dextrose 125 mls @ 5 mls/hr 05/19/19 10:21 05/19/19 11: 28 IVPB Not Given TITR ELISSA Protocol 5 MG/HR Insulin Human Regular 100 100 mls @ 3.5 mls/hr 05/19/19 16:30 units/ Sodium Chloride IVPB TITR ELISSA Protocol 3.5 UNITS/HR Metoprolol Tartrate 5 mg 04/30/19 08:57 05/17/19 18:09 Lopressor Injection - IVPUSH 5 mg Q4H PRN Administration TACHYCARDIA Metoprolol Tartrate 25 mg 05/16/19 14:00 05/19/19 14:06 Lopressor - GT 25 mg TID ELISSA Administration Morphine Sulfate 2 mg 05/16/19 22:58 Morphine Sulfate IVPUSH Q4H PRN PAIN LEVEL 7 - 10 Pantoprazole Sodium 40 mg 05/14/19 10:00 05/19/19 10:12 Protonix Iv IVPUSH 40 mg DAILY ELISSA Administration Polyethylene Glycol 17 gm 05/16/19 11:45 05/19/19 10:11 Miralax (For Daily Use) - PO 17 grams DAILY ELISSA Administration Scopolamine HBr 1 patch 05/17/19 05:15 05/17/19 08:00 Transderm-Scop - TD Not Given Q72H ELISSA Thiamine HCl 200 mg 05/13/19 10:00 05/19/19 10:12 Vitamin B1 Injection - IVPB 200 mg DAILY ELISSA Administration Impression 1. RYNE 2. hyperkalemia 3. resp failure requiring intubation 4. resp acidosis 5. dm 6. hx htn 7. sleep apnea 8. obesity 9. hx non compliance 10. chf 11. sarcoid 12. volume overload 13. hypernatremia Plan - renal function stable - cont diuretics - vent support, weaning per pulmonary - sedation vacation - sodium stabilizing
[2019-05-19] MEDS: INSULIN REGULAR 100 UNITS in SODIUM CHLORIDE 99 ML IVPB SCH (17:36)
--- NOTE | 2019-05-19 17:56 | PN ---
Teaching Attending Note Name of Resident: Magnus Lloyd ATTENDING PHYSICIAN STATEMENT I saw and evaluated the patient. I reviewed the resident's note and discussed the case with the resident. I agree with the resident's findings and plan as documented. Seen and examined; please see resident note for further historical information. I personally verified all valadez historical information and exam findings. Personally interpreted all imaging and diagnostics and reviewed appropriate consults. I reviewed all labs and vital signs as per resident note and EMR as documented. I agree with the above assessment and plan unless supplemented by myself in the following. Patient was more alert this morning when we are attempting the weaning trial. He was on CPAP at the time of rounds, hopefully he can be extubated. Pupils remain equal. No neurologic deficits noted. Remains on medicine service with ICU consult following. 10 item review of systems completed and is negative aside from as discussed in the subjective data in my own/the resident documentation. VS, labs, imaging reviewed Intubated and sedated on ventillator resting in bed, vent settings per flowsheet ET Tube in place; IV access noted with no apparent surrounding cellulitis RRR s1/2 no mgr Normal muscle tone, moves all 5 extremities with normal apparent strength Neck is supple, trachea midline, no fernanda LN Lungs CTAB with sym expansion NT ND +BS no fernanda organomegaly CN2-12 wnl; no FND but limited given clinical circumstances. NC AT EOMI PERRLA Not agitated, cannot complete full psych assessment A/P: Overall, patient is only marginally improved compared to yesterday with still some improvement noted in the mental status. Adding diltiazem p.o. and weaning off the drip alongside metoprolol and digoxin per cardiology. He remains on antibiotics and O2 support by the ventilator, off steroids. His volume status is improving diuresis as per nephrology. The patient's kidney function is remained stable. His ABG reveals persisting borderline hypoxia with mild hypercarbia. Blood counts are stable. Remains on heparin drip. Will discuss with ICU team about replacing central line. *No extubation attempt today. He is hemodynamically stable. Transitioning to PO diltiazem Problems include: Acute mixed respiratory failure/ARDS Atrial Fibrillation Acute kidney injury on chronic kidney disease Hyperkalemia, improved Respiratory acidosis with metabolic compensation History of uncontrolled diabetes mellitus, improved glycemic control, continue to keep under 180 History of uncontrolled hypertension, continue monitor History of sleep apnea, noncompliant with CPAP History of morbid obesity, BMI 42.6 History of noncompliance History of sarcoidosis History of diastolic CHF, diuresis as per nephrology and cardiology Hypernatremia, improved Full Code Continue to monitor in ICU; appreciate PCCM management. Limited role of hospital medicine. Difficult weaning. Question underlying neuro abnl
--- NOTE | 2019-05-19 18:48 | PN ---
Physical Exam: SUBJECTIVE: Patient seen and examined at bedside. Intubated and sedated on precedex and propfol. Central line replaced today. Per nursing, pt has copious secretions requiring frequent suctioning of ET tube OBJECTIVE: Vital Signs Period Temp Pulse Resp BP Sys/[place] Pulse Ox Last 24 Hr 98.1 F-99.4 F 70-107 28-39 83-109/54-65 97-100 GENERAL: The patient is intubated and sedated. RASS -5. LUNGS: Breath sounds reduced at bases, difficult to hear given body habitus HEART: Regular rate and rhythm, S1, S2 without murmur, rub or gallop. ABDOMEN: Soft, nontender, nondistended EXTREMITIES: 2+ pulses, warm, well-perfused, no edema. NEUROLOGICAL: sedated SKIN: Warm, dry, no rashes or lesions noted Laboratory Results - last 24 hr 05/18/19 05/19/19 05/19/19 21:20 05:30 05:30 WBC 5.9 RBC 4.01 Hgb 9.9 L Hct 32.6 L MCV 81.3 MCH 24.8 L MCHC 30.5 L RDW 20.0 H Plt Count 122 L MPV 11.9 H PTT (Actin FS) Sodium 143 Potassium 4.1 Chloride 103 Carbon Dioxide 35 H Anion Gap 5 L BUN 67.4 H Creatinine 1.6 H Est GFR (CKD-EPI)AfAm 56.97 Est GFR (CKD-EPI)NonAf 49.15 POC Glucometer 298 Random Glucose 262 H Calcium 8.2 L Total Bilirubin 0.4 AST 33 ALT 153 H Alkaline Phosphatase 95 Total Protein 5.4 L Albumin 2.4 L 05/19/19 05/19/19 05/19/19 11:24 15:03 15:57 WBC RBC Hgb Hct MCV MCH MCHC RDW Plt Count MPV PTT (Actin FS) Sodium Potassium Chloride Carbon Dioxide Anion Gap BUN Creatinine Est GFR (CKD-EPI)AfAm Est GFR (CKD-EPI)NonAf POC Glucometer 287 258 259 Random Glucose Calcium Total Bilirubin AST ALT Alkaline Phosphatase Total Protein Albumin 05/19/19 05/19/19 17:31 18:31 WBC RBC Hgb Hct MCV MCH MCHC RDW Plt Count MPV PTT (Actin FS) Sodium Potassium Chloride Carbon Dioxide Anion Gap BUN Creatinine Est GFR (CKD-EPI)AfAm Est GFR (CKD-EPI)NonAf POC Glucometer 253 215 Random Glucose Calcium Total Bilirubin AST ALT Alkaline Phosphatase Total Protein Albumin Active Medications Generic Name Dose Route Start Last Admin Trade Name Freq PRN Reason Stop Dose Admin Amino Acids 30 ml 05/18/19 17:30 05/19/19 17:36 Prosource No Carb Liquid Pkt PO 30 ml BID@0800,1730 ELISSA Administration Chlorhexidine Gluconate 1 applic 04/30/19 22:00 05/18/19 21:09 Hibiclens For Decolonization - TP 1 applic HS ELISSA Administration Digoxin 0.125 mg 05/12/19 11:45 05/19/19 10:06 Lanoxin Injection - IVPUSH 0.125 mg DAILY ELISSA Administration Diltiazem HCl 10 mg 05/10/19 05:04 05/10/19 08:30 Cardizem Injection - IVPUSH 10 mg Q4H PRN Administration TACHYCARDIA Diltiazem HCl 30 mg 05/18/19 18:30 05/19/19 14:07 Cardizem - PO 30 mg TID ELISSA Administration Docusate Sodium 200 mg 05/15/19 13:37 05/16/19 14:28 Colace Liquid - PO 200 mg DAILY PRN Administration CONSTIPATION Ferrous Sulfate 300 mg 05/09/19 10:00 05/19/19 10:06 Feosol NGT 300 mg BID ELISSA Administration Heparin Sodium (Porcine) 1,000 unit 05/14/19 15:27 Heparin - IVPUSH PRN PRN Heparin Heparin Sodium (Porcine) 5,000 unit 05/14/19 15:27 Heparin - IVPUSH PRN PRN Heparin Propofol 1,000,000 mcg in 100 mls @ 3.463 mls/hr 05/13/19 08:30 05/19/19 13: 22 Diprivan - IVPB Not Given TITR [facility] Protocol 5 MCG/KG/MIN HEPARIN SOD,PORK IN 0.45% NACL 25,000 units in 500 mls @ 20 mls/hr 05/14/19 15 :30 05/19/19 14:48 Heparin-1/2ns 25,000 Units/500 IVPB 1,150 units/hr TITR ELISSA 23 mls/hr Administration Protocol 1,000 UNITS/HR Meropenem 500 mg/ Dextrose 100 mls @ 200 mls/hr 05/16/19 18:00 05/19/19 17:36 IVPB 200 mls/hr Q8H-IV ELISSA Administration Furosemide 100 mg/ Dextrose 100 mls @ 10 mls/hr 05/17/19 11:00 05/19/19 14:55 IVPB 10 mg/hr TITR ELISSA 10 mls/hr Administration 10 MG/HR Diltiazem HCl 125 mg/ Dextrose 125 mls @ 5 mls/hr 05/19/19 10:21 05/19/19 11: 28 IVPB Not Given TITR ELISSA Protocol 5 MG/HR Insulin Human Regular 100 100 mls @ 3.5 mls/hr 05/19/19 16:30 05/19/19 17:36 units/ Sodium Chloride IVPB 2.5 units/hr TITR ELISSA 2.5 mls/hr Administration Protocol 3.5 UNITS/HR Metoprolol Tartrate 5 mg 04/30/19 08:57 05/17/19 18:09 Lopressor Injection - IVPUSH 5 mg Q4H PRN Administration TACHYCARDIA Metoprolol Tartrate 25 mg 05/16/19 14:00 05/19/19 14:06 Lopressor - GT 25 mg TID ELISSA Administration Morphine Sulfate 2 mg 05/16/19 22:58 Morphine Sulfate IVPUSH Q4H PRN PAIN LEVEL 7 - 10 Pantoprazole Sodium 40 mg 05/14/19 10:00 05/19/19 10:12 Protonix Iv IVPUSH 40 mg DAILY ELISSA Administration Polyethylene Glycol 17 gm 05/16/19 11:45 05/19/19 10:11 Miralax (For Daily Use) - PO 17 grams DAILY ELISSA Administration Scopolamine HBr 1 patch 05/17/19 05:15 05/17/19 08:00 Transderm-Scop - TD Not Given Q72H ELISSA Thiamine HCl 200 mg 05/13/19 10:00 05/19/19 10:12 Vitamin B1 Injection - IVPB 200 mg DAILY ELISSA Administration ASSESSMENT/PLAN: This is a 53 y/o/m with PMHx of DM2, HFpEF(last EF: 45-50%), 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 #Acute Hypoxic and Hypercapneic Respiratory Failure/ EMMY - extubated on 05/09, re-intubated on 05/13 - Duonebs RQID - Follow serial CXRs - Abx coverage broadened as per ID to Meropenem (day 4). Zosyn discontinued - ID consulted (Dr. Garcia) -Fever of 100.6 on 2, repeat cultures sent -Sputum cx: ESBL - c/w meropenem (day 4) - vent settings 350/30/10/40 - daily SBT's, ? trach if cannot extubate - atrovent nebulizer prn #Altered mental status and weakness - Concern for critical care induced myopathy - Patient with poor mental status when extubated - Risk factors include glucocorticoids, paralytic use, extended intubation - Head CT - negative for acute pathology - unable to complete MRI due to non-MRI compatible vents - Neuro Consulted (Dr. Pleitez). EEG completed, will F/U results -Bedside EMG shows no evidence of myopathy, but cannot rule out myopathic process. #HFpEF vs. Cardiogenic shock - Lasix discontinued - Strict Is & Os, daily weights - ECHO - EF of 55-60%, no significant abnormalities noted, no vegetations - Cardiology Consult (Dr. Encinas) - Off pressors, BP stable - Cardio recommends cardiac PET or MRI to exclude cardiac involvement in sarcoidosis as outpatient. F/u with Dr. Genaro Davila at [place] #Atrial Flutter - Cardizem drip for rate control 5mg/hr. 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 #RYNE on CKD w/ Hyperkalemia - Monitor BUN/Cr levels, baseline Cr ~1.5 - Renal function improved, Cr now 1.6 - Nephrology Consulted (Dr. Kelley) - Likely secondary to volume overload. Pt. likely has CKD given risk factors of DM2 (uncontrolled glucose) and Heart Failure - IVF discontinued, will continue free fluid through NG tube - Hold Lisinopril, restart 10mg QD once improved renal function - K+ elevated to 5.2, switched patient to Nephro feeds - ortiz changed today - continue lasix drip #DM2 - BGM - ISS - Levemir discontinued - Insulin drip bgm q1h #FEN - IVF discontinued, continue free water fluid via NG tube - monitor and replete lytes as needed - NG tube inserted, tube feeds to goal. Feeds changed to Nepro due to elevated 5.2 #Prophylaxis - Heparin Drip - Protonix 40 daily #Disposition - Continue ICU monitoring, unable to transfer patient to [place] at this time. Visit type - Emergency Visit Emergency Visit: Yes ED Registration Date: 04/30/19 Care time: The patient presented to the Emergency Department on the above date and was hospitalized for further evaluation of their emergent condition. - New Patient This patient is new to me today: Yes Date on this admission: 05/19/19 - Critical Care Critical Care patient: Yes Total Critical Care Time (in minutes): 35 Critical Care Statement: The care of this patient involved high complexity decision making to prevent further life threatening deterioration of the patient 's condition and/or to evaluate & treat vital organ system(s) failure or risk of failure. - Discharge Referral Referred to [facility] Med [facility].: No ATTENDING PHYSICIAN STATEMENT I saw and evaluated the patient. I reviewed the resident's note and discussed the case with the resident. I agree with the resident's findings and plan as documented. SUBJECTIVE: OBJECTIVE: ASSESSMENT AND PLAN:
[2019-05-19] MEDS: CHLORHEXIDINE GLUCONATE 4% CLEANSER FOR DECOLONIZATION TP SCH (22:26)
[2019-05-20] MEDS: MEROPENEM 500 MG in DEXTROSE 5%-WATER 100 ML IVPB SCH ×3 (02:00→18:24)
[2019-05-20] MEDS: SCOPOLAMINE HYDROBROMIDE 1 PATCH PATCH.TD72 TD SCH (05:30)
--- NOTE | 2019-05-20 06:41 | PN ---
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 (short form) - Note 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: Chief Complaint: Events noted, notes reviewed, remains sedated and intubated, remains on Lasix drip, atrial flutter persists with periods of rapid ventricular response History of Present Illness: Seen and examined in the ICU. Events noted, notes reviewed, remains sedated and intubated, remains on Lasix drip, atrial flutter persists with periods of rapid ventricular response Current Medications: Current Medications Amino Acids (Prosource No Carb Liquid Pkt) 30 ml PO BID@0800,1730 [facility] Last Admin: 05/19/19 17:36 Dose: 30 ml Chlorhexidine Gluconate (Hibiclens For Decolonization -) 1 applic TP HS [facility] Last Admin: 05/19/19 22:26 Dose: 1 applic Digoxin (Lanoxin Injection -) 0.125 mg IVPUSH DAILY [facility] Last Admin: 05/19/19 10:06 Dose: 0.125 mg Diltiazem HCl (Cardizem Injection -) 10 mg IVPUSH Q4H PRN PRN Reason: TACHYCARDIA Last Admin: 05/10/19 08:30 Dose: 10 mg Diltiazem HCl (Cardizem -) 30 mg PO TID [facility] Last Admin: 05/19/19 22:26 Dose: 30 mg Docusate Sodium (Colace Liquid -) 200 mg PO DAILY PRN PRN Reason: CONSTIPATION Last Admin: 05/16/19 14:28 Dose: 200 mg Ferrous Sulfate (Feosol) 300 mg NGT BID [facility] Last Admin: 05/19/19 22:26 Dose: 300 mg Heparin Sodium (Porcine) (Heparin -) 1,000 unit IVPUSH PRN PRN PRN Reason: Heparin Heparin Sodium (Porcine) (Heparin -) 5,000 unit IVPUSH PRN PRN PRN Reason: Heparin Propofol (Diprivan -) 1,000,000 mcg in 100 mls @ 3.463 mls/hr IVPB TITR [facility]; Protocol Last Admin: 05/19/19 13:22 Dose: Not Given HEPARIN SOD,PORK IN 0.45% NACL (Heparin-1/2ns 25,000 Units/500) 25,000 units in 500 mls @ 20 mls/hr IVPB TITR [facility]; Protocol Last Admin: 05/19/19 14:48 Dose: 1,150 units/hr, 23 mls/hr Meropenem 500 mg/ Dextrose 100 mls @ 200 mls/hr IVPB Q8H-IV [facility] Last Admin: 05/20/19 02:00 Dose: 200 mls/hr Furosemide 100 mg/ Dextrose 100 mls @ 10 mls/hr IVPB TITR [facility] Last Admin: 05/19/19 14:55 Dose: 10 mg/hr, 10 mls/hr Diltiazem HCl 125 mg/ Dextrose 125 mls @ 5 mls/hr IVPB TITR [facility]; Protocol Last Admin: 05/19/19 11:28 Dose: Not Given Insulin Human Regular 100 (units/ Sodium Chloride) 100 mls @ 3.5 mls/hr IVPB TITR [facility]; Protocol Last Titration: 05/20/19 03:00 Dose: 2.5 units/hr, 2.5 mls/hr Metoprolol Tartrate (Lopressor Injection -) 5 mg IVPUSH Q4H PRN PRN Reason: TACHYCARDIA Last Admin: 05/17/19 18:09 Dose: 5 mg Metoprolol Tartrate (Lopressor -) 25 mg GT TID [facility] Last Admin: 05/19/19 22:27 Dose: 25 mg Pantoprazole Sodium (Protonix Iv) 40 mg IVPUSH DAILY [facility] Last Admin: 05/19/19 10:12 Dose: 40 mg Polyethylene Glycol (Miralax (For Daily Use) -) 17 gm PO DAILY [facility] Last Admin: 05/19/19 10:11 Dose: 17 grams Scopolamine HBr (Transderm-Scop -) 1 patch TD Q72H [facility] Last Admin: 05/17/19 08:00 Dose: Not Given Thiamine HCl (Vitamin B1 Injection -) 200 mg IVPB DAILY [facility] Last Admin: 05/19/19 10:12 Dose: 200 mg Review of Systems Unable to obtain - Objective Vital Signs: Last Vital Signs Temp Pulse Resp BP Pulse Ox 99 F 114 H 39 H 103/56 L 100 05/20/19 02:00 05/20/19 04:30 05/20/19 04:30 05/20/19 04:00 05/20/19 04:30 Intake & Output 05/17/19 05/18/19 05/19/19 05/20/19 23:59 23:59 23:59 23:59 Intake Total 2339.7 2702 3116.5 Output Total 1200 4300 2975 Balance 1139.7 -1598 141.5 Weight 271 lb 9.6 oz 264 lb 4.8 oz 264 lb Neck: Supple negative JVD no bruit Cardiovascular: S1 S2 Irregularly Irregular Respiratory: Diminished Breath Sounds Bilaterally Gastrointestinal: Soft Benign Normal Bowel Sounds Ext: Edema Bilaterally Labs: CBC, BMP 05/20/19 06:00 05/20/19 06:00 Hepatic Panel Total Bilirubin 0.4 mg/dL (0.2-1) 05/20/19 06:00 Direct Bilirubin 0.2 mg/dL (0.0-0.2) 05/05/19 05:30 AST 34 U/L (15-37) 05/20/19 06:00 ALT 122 U/L (13-61) H 05/20/19 06:00 Alkaline Phosphatase 95 U/L (45-117) 05/20/19 06:00 Albumin 2.5 g/dl (3.4-5.0) L 05/20/19 06:00 CBC, BMP 05/19/19 05:30 05/19/19 05:30 Hepatic Panel Total Bilirubin 0.4 mg/dL (0.2-1) 05/19/19 05:30 Direct Bilirubin 0.2 mg/dL (0.0-0.2) 05/05/19 05:30 AST 33 U/L (15-37) 05/19/19 05:30 ALT 153 U/L (13-61) H 05/19/19 05:30 Alkaline Phosphatase 95 U/L (45-117) 05/19/19 05:30 Albumin 2.4 g/dl (3.4-5.0) L 05/19/19 05:30 INR, PTT INR 1.09 (0.83-1.09) 05/05/19 05:30 ABG Results ABG pH 7.39 (7.35-7.45) 05/17/19 11:00 ABG pCO2 at Pt Temp 53.2 mmHg (35-45) H 05/17/19 11:00 ABG pO2 at Pt Temp 67.3 mmHg (80-100) L 05/17/19 11:00 ABG HCO3 31.6 mmol/L (22-27) H 05/17/19 11:00 ABG O2 Sat (Measured) 92.3 % (95-98) L 05/17/19 11:00 ABG O2 Content 13.5 % vol 05/17/19 11:00 ABG Base Excess 6.0 meq/l (-2-2) H 05/17/19 11:00 Assessment/Plan: ASSESSMENT: 1. Acute hypoxic and hypercapneic respiratory failure on mechanical ventilation 2. Pneumonia complicated by septic shock, clinically resolved off of pressors 3. Persistent atrial flutter/paroxysmal atrial fibrillation [id number] score of 0 on A/C Heparin 4. Diastolic LV dysfunction with clinical class 0 NYHA classification LV failure 5. Sarcoidosis confirmed by skin biopsy, R/O cardiac involvement- outpatient evaluation 6. DM 7. 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 Acute on CKD 9. Anemia PLAN: 1. Ventilator management as per ICU team 2. Antibiotics as per the primary team 3. Continue B-Blockers/Lopressor to assist with rate control/hemodynamics permitting 4. Continue Cardizem to assist with rate control/hemodynamics permitting 5. Continue Digoxin to assist with rate control/hemodynamics permitting- with close monitoring of level specially with underlying CKD 6. Continue A/C with Heparin and eventual change to DOAS's/Eliquis 7. Diuretics Lasix drip with caution and close monitoring of renal function 8. Eventual initiation of ACEI or ARBS once renal function at baseline and hemodynamics permitting 9. Eventual F/U with Dr. Genaro Davila (cardiology at [place]) for cardiac PET or MRI to exclude cardiac involvement in sarcoidosis/as outpatient Maycol King MD
[2019-05-20] MEDS: dilTIAZem HCL 30 MG TABLET (FP) PO SCH ×3 (06:58→22:09)
[2019-05-20] MEDS: METOPROLOL TARTRATE 25 MG TABLET (FP) GT SCH ×3 (06:58→21:00)
[2019-05-20 07:44] LABS: HEMATOCRIT 32.3 % (35.4-49); HEMOGLOBIN 9.9 GM/dL (11.7-16.9); MCH 24.8 pg (25.7-33.7); MCHC 30.7 g/dl (32.0-35.9); MEAN CELL VOLUME 80.8 fl (80-96); MEAN PLT VOLUME 11.4 fl (7.5-11.1); PLATELET COUNT 133 K/MM3 (134-434); RDW 19.4 % (11.9-15.9); WHITE BLOOD COUNT 6.1 K/mm3 (4.0-10.0)
[2019-05-20 08:01] LABS: ALBUMIN 2.5 g/dl (3.4-5.0); BILIRUBIN,TOTAL 0.4 mg/dL (0.2-1); CALCIUM 8.2 mg/dL (8.5-10.1); CREATININE 1.4 mg/dL (0.55-1.3); MAGNESIUM 2.2 mg/dL (1.8-2.4); PHOSPHOROUS 4.2 mg/dL (2.5-4.9); POTASSIUM 3.9 mmol/L (3.5-5.1); TOT PROT 5.2 g/dl (6.4-8.2)
[2019-05-20] MEDS: AMINO ACIDS/PROTEIN HYDROLYS 30 ML LIQUID.PKT PO SCH ×2 (09:00→18:24)
[2019-05-20] MEDS: POLYETHYLENE GLYCOL 3350 119 GM BTL PO SCH (09:30)
[2019-05-20] MEDS: DIGOXIN 0.5 MG/2 ML AMPUL IVPUSH SCH (09:30)
[2019-05-20] MEDS: THIAMINE HCL 200 MG/2 ML VIAL IVPB SCH (09:30)
[2019-05-20] MEDS: PANTOPRAZOLE SODIUM 40 MG VIAL IVPUSH SCH (09:30)
[2019-05-20] MEDS ORDERED: MEROPENEM 500 MG VIAL (RESTRICTED TO ID) IVPB ONE ×2 (09:35→17:58)
[2019-05-20] MEDS ORDERED: DEXTROSE 5%-WATER 100 ML IVPB ONE ×2 (09:35→17:58)
[2019-05-20] MEDS: FERROUS SO4 300 MG/5 ML ORAL SOLN UNIT DOSE CUPS NGT SCH ×2 (10:00→22:09)
[2019-05-20] MEDS: PROPOFOL 1,000,000 MCG/100 ML VIAL IVPB SCH (10:46)
[2019-05-20] MEDS: HEPARIN SOD,PORK IN 0.45% NACL 25,000 UNITS/500 ML INFUS.BAG IVPB SCH (12:00)
--- NOTE | 2019-05-20 13:41 | PN ---
Teaching Attending Note Name of Resident: Zoë Schmidt ATTENDING PHYSICIAN STATEMENT I saw and evaluated the patient. I reviewed the resident's note and discussed the case with the resident. I agree with the resident's findings and plan as documented. SUBJECTIVE: Patient seen and examined in the ICU. AC Mode of vent, 30% FiO2. Remains intubated and sedated. Lasix drip. Intake & Output 05/17/19 05/18/19 05/19/19 05/20/19 23:59 23:59 23:59 23:59 Intake Total 2339.7 2702 3116.5 2926 Output Total 1200 4300 2975 1000 Balance 1139.7 -1598 141.5 1926 Weight 271 lb 9.6 oz 264 lb 4.8 oz 264 lb 264 lb Last Vital Signs Temp Pulse Resp BP Pulse Ox 99.2 F 117 H 34 H 97/64 100 05/20/19 06:00 05/20/19 09:30 05/20/19 09:30 05/20/19 06:00 05/20/19 09:30 Active Medications Amino Acids (Prosource No Carb Liquid Pkt) 30 ml PO BID@0800,1730 [facility] Last Admin: 05/20/19 09:00 Dose: 30 ml Chlorhexidine Gluconate (Hibiclens For Decolonization -) 1 applic TP HS [facility] Last Admin: 05/19/19 22:26 Dose: 1 applic Digoxin (Lanoxin Injection -) 0.125 mg IVPUSH DAILY [facility] Last Admin: 05/20/19 09:30 Dose: 0.125 mg Diltiazem HCl (Cardizem Injection -) 10 mg IVPUSH Q4H PRN PRN Reason: TACHYCARDIA Last Admin: 05/10/19 08:30 Dose: 10 mg Diltiazem HCl (Cardizem -) 30 mg PO TID [facility] Last Admin: 05/20/19 06:58 Dose: 30 mg Docusate Sodium (Colace Liquid -) 200 mg PO DAILY PRN PRN Reason: CONSTIPATION Last Admin: 05/16/19 14:28 Dose: 200 mg Ferrous Sulfate (Feosol) 300 mg NGT BID [facility] Last Admin: 05/19/19 22:26 Dose: 300 mg Furosemide (Lasix Injection -) 80 mg IVPB BIDLASIX [facility] Heparin Sodium (Porcine) (Heparin -) 1,000 unit IVPUSH PRN PRN PRN Reason: Heparin Heparin Sodium (Porcine) (Heparin -) 5,000 unit IVPUSH PRN PRN PRN Reason: Heparin Propofol (Diprivan -) 1,000,000 mcg in 100 mls @ 3.463 mls/hr IVPB TITR [facility]; Protocol Last Admin: 05/20/19 10:46 Dose: 50 mcg/kg/min, 34.632 mls/hr HEPARIN SOD,PORK IN 0.45% NACL (Heparin-1/2ns 25,000 Units/500) 25,000 units in 500 mls @ 20 mls/hr IVPB TITR [facility]; Protocol Last Admin: 05/19/19 14:48 Dose: 1,150 units/hr, 23 mls/hr Meropenem 500 mg/ Dextrose 100 mls @ 200 mls/hr IVPB Q8H-IV [facility] Last Admin: 05/20/19 09:30 Dose: 200 mls/hr Insulin Human Regular 100 (units/ Sodium Chloride) 100 mls @ 3.5 mls/hr IVPB TITR [facility]; Protocol Last Titration: 05/20/19 03:00 Dose: 2.5 units/hr, 2.5 mls/hr Metoprolol Tartrate (Lopressor Injection -) 5 mg IVPUSH Q4H PRN PRN Reason: TACHYCARDIA Last Admin: 05/17/19 18:09 Dose: 5 mg Metoprolol Tartrate (Lopressor -) 25 mg GT TID [facility] Last Admin: 05/20/19 06:58 Dose: 25 mg Pantoprazole Sodium (Protonix Iv) 40 mg IVPUSH DAILY [facility] Last Admin: 05/20/19 09:30 Dose: 40 mg Polyethylene Glycol (Miralax (For Daily Use) -) 17 gm PO DAILY [facility] Last Admin: 05/20/19 09:30 Dose: 17 grams Scopolamine HBr (Transderm-Scop -) 1 patch TD Q72H [facility] Last Admin: 05/20/19 05:30 Dose: 1 patch Thiamine HCl (Vitamin B1 Injection -) 200 mg IVPB DAILY [facility] Last Admin: 05/20/19 09:30 Dose: 200 mg GEN: Intubated and sedated. PULM: scattered rhonchi B/L CV: S1 S2, irreg/irreg ABD: + BS, S/S N/T N/D X4Q EXT: + Pulses, WWPX4, + edema [employer]PER[employer]OR: sedated Laboratory Results - last 24 hr 05/19/19 05/19/19 05/19/19 15:03 15:57 17:31 WBC RBC Hgb Hct MCV MCH MCHC RDW Plt Count MPV PTT (Actin FS) Sodium Potassium Chloride Carbon Dioxide Anion Gap BUN Creatinine Est GFR (CKD-EPI)AfAm Est GFR (CKD-EPI)NonAf POC Glucometer 258 259 253 Random Glucose Calcium Phosphorus Magnesium Total Bilirubin AST ALT Alkaline Phosphatase Total Protein Albumin 05/19/19 05/19/19 05/19/19 18:31 20:07 21:22 WBC RBC Hgb Hct MCV MCH MCHC RDW Plt Count MPV PTT (Actin FS) Sodium Potassium Chloride Carbon Dioxide Anion Gap BUN Creatinine Est GFR (CKD-EPI)AfAm Est GFR (CKD-EPI)NonAf POC Glucometer 215 199 184 Random Glucose Calcium Phosphorus Magnesium Total Bilirubin AST ALT Alkaline Phosphatase Total Protein Albumin 05/19/19 05/20/19 05/20/19 22:20 00:00 01:10 WBC RBC Hgb Hct MCV MCH MCHC RDW Plt Count MPV PTT (Actin FS) Sodium Potassium Chloride Carbon Dioxide Anion Gap BUN Creatinine Est GFR (CKD-EPI)AfAm Est GFR (CKD-EPI)NonAf POC Glucometer 183 169 168 Random Glucose Calcium Phosphorus Magnesium Total Bilirubin AST ALT Alkaline Phosphatase Total Protein Albumin 05/20/19 05/20/19 05/20/19 02:32 04:14 06:00 WBC 6.1 RBC 4.00 Hgb 9.9 L Hct 32.3 L MCV 80.8 MCH 24.8 L MCHC 30.7 L RDW 19.4 H Plt Count 133 L MPV 11.4 H PTT (Actin FS) Sodium Potassium Chloride Carbon Dioxide Anion Gap BUN Creatinine Est GFR (CKD-EPI)AfAm Est GFR (CKD-EPI)NonAf POC Glucometer 164 166 Random Glucose Calcium Phosphorus Magnesium Total Bilirubin AST ALT Alkaline Phosphatase Total Protein Albumin 05/20/19 05/20/19 05/20/19 06:00 06:00 06:30 WBC RBC Hgb Hct MCV MCH MCHC RDW Plt Count MPV PTT (Actin FS) 64.1 H Sodium 142 Potassium 3.9 Chloride 101 Carbon Dioxide 36 H Anion Gap 5 L BUN 71.0 H Creatinine 1.4 H Est GFR (CKD-EPI)AfAm 66.95 Est GFR (CKD-EPI)NonAf 57.76 POC Glucometer 148 Random Glucose 164 H Calcium 8.2 L Phosphorus 4.2 Magnesium 2.2 Total Bilirubin 0.4 AST 34 ALT 122 H Alkaline Phosphatase 95 Total Protein 5.2 L Albumin 2.5 L 05/20/19 05/20/19 05/20/19 07:23 08:20 08:54 WBC RBC Hgb Hct MCV MCH MCHC RDW Plt Count MPV PTT (Actin FS) Sodium Potassium Chloride Carbon Dioxide Anion Gap BUN Creatinine Est GFR (CKD-EPI)AfAm Est GFR (CKD-EPI)NonAf POC Glucometer 164 135 135 Random Glucose Calcium Phosphorus Magnesium Total Bilirubin AST ALT Alkaline Phosphatase Total Protein Albumin ASSESS: Acute Hypoxic and Hypercapneic Respiratory Failure Pneumonia Gram Positive Bacteremia Septic Shock Volume Overload ARDS Lactic Acidosis Hyperkalemia Acute Kidney Injury Atrial Flutter with RVR HTN DM Anemia PLAN: - Cont Vent Support - Wean FiO2 as tolerated - Nebs - Diurese; D/W Renal to change to IVP - Sedation Vacation to assess mental status - Abx - Rate Control - AC - Strict I's & O's - Monitor BUN/Cr - Replete e-lytes prn - FSs - SSI - TFs - DVT/GI prophylaxis - Trach - GI ppx - continue ICU monitoring - Will need Trach: Tentative plan to place on Thyroid Dr Maya Critical care time spent in reviewing chart, evaluating patient and formulating plan - 36 minutes.
--- NOTE | 2019-05-20 13:51 | PN ---
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 (short form) - Note 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: Thoracic Surgery: Plan for tracheostomy with bronchoscopy on . Please make npo p mn on Sunday and obtain consent from family.
--- NOTE | 2019-05-20 14:18 | PN ---
Physical Exam: SUBJECTIVE: Patient seen and examined in the morning. No acute events overnight. Patient remains intubated, does not respond to questions. Central line changed yesterday. OBJECTIVE: Vital Signs Period Temp Pulse Resp BP Sys/[place] Pulse Ox Last 24 Hr 99 F-99.4 F 70-117 30-39 92-110/54-72 97-100 GENERAL: The patient is awake, alert, and fully oriented, in no acute distress. GENERAL: The patient is sedated and intubated. Minimally responsive to sternal rub. HEAD: Normal with no signs of trauma. Endotracheal tube in place. ENT: Ears normal, nares patent, oropharynx clear without exudates, moist mucous membranes. LUNGS: Mechanical ventilation. Scattered ronchi. No wheezes or crackles. HEART: Regular rate and rhythm, S1, S2 without murmur, rub or gallop. ABDOMEN: Soft, nontender, nondistended, normoactive bowel sounds, no guarding, no rebound, no hepatosplenomegaly, no masses. EXTREMITIES: 2+ pulses,warm, well-perfused, no edema. NEUROLOGICAL: Unable to assess. SKIN: Warm, dry, normal turgor, no rashes or lesions noted Laboratory Results - last 24 hr CBC, BMP 05/20/19 06:00 05/20/19 06:00 Active Medications Amino Acids (Prosource No Carb Liquid Pkt) 30 ml PO BID@0800,1730 [facility] Last Admin: 05/20/19 09:00 Dose: 30 ml Chlorhexidine Gluconate (Hibiclens For Decolonization -) 1 applic TP HS [facility] Last Admin: 05/19/19 22:26 Dose: 1 applic Digoxin (Lanoxin Injection -) 0.125 mg IVPUSH DAILY [facility] Last Admin: 05/20/19 09:30 Dose: 0.125 mg Diltiazem HCl (Cardizem Injection -) 10 mg IVPUSH Q4H PRN PRN Reason: TACHYCARDIA Last Admin: 05/10/19 08:30 Dose: 10 mg Diltiazem HCl (Cardizem -) 30 mg PO TID [facility] Last Admin: 05/20/19 06:58 Dose: 30 mg Docusate Sodium (Colace Liquid -) 200 mg PO DAILY PRN PRN Reason: CONSTIPATION Last Admin: 05/16/19 14:28 Dose: 200 mg Ferrous Sulfate (Feosol) 300 mg NGT BID [facility] Last Admin: 05/19/19 22:26 Dose: 300 mg Furosemide (Lasix Injection -) 80 mg IVPB BIDLASIX [facility] Heparin Sodium (Porcine) (Heparin -) 1,000 unit IVPUSH PRN PRN PRN Reason: Heparin Heparin Sodium (Porcine) (Heparin -) 5,000 unit IVPUSH PRN PRN PRN Reason: Heparin Propofol (Diprivan -) 1,000,000 mcg in 100 mls @ 3.463 mls/hr IVPB TITR [facility]; Protocol Last Admin: 05/20/19 10:46 Dose: 50 mcg/kg/min, 34.632 mls/hr HEPARIN SOD,PORK IN 0.45% NACL (Heparin-1/2ns 25,000 Units/500) 25,000 units in 500 mls @ 20 mls/hr IVPB TITR [facility]; Protocol Last Admin: 05/19/19 14:48 Dose: 1,150 units/hr, 23 mls/hr Meropenem 500 mg/ Dextrose 100 mls @ 200 mls/hr IVPB Q8H-IV [facility] Last Admin: 05/20/19 09:30 Dose: 200 mls/hr Insulin Human Regular 100 (units/ Sodium Chloride) 100 mls @ 3.5 mls/hr IVPB TITR [facility]; Protocol Last Titration: 05/20/19 03:00 Dose: 2.5 units/hr, 2.5 mls/hr Metoprolol Tartrate (Lopressor Injection -) 5 mg IVPUSH Q4H PRN PRN Reason: TACHYCARDIA Last Admin: 05/17/19 18:09 Dose: 5 mg Metoprolol Tartrate (Lopressor -) 25 mg GT TID [facility] Last Admin: 05/20/19 06:58 Dose: 25 mg Pantoprazole Sodium (Protonix Iv) 40 mg IVPUSH DAILY [facility] Last Admin: 05/20/19 09:30 Dose: 40 mg Polyethylene Glycol (Miralax (For Daily Use) -) 17 gm PO DAILY [facility] Last Admin: 05/20/19 09:30 Dose: 17 grams Scopolamine HBr (Transderm-Scop -) 1 patch TD Q72H [facility] Last Admin: 05/20/19 05:30 Dose: 1 patch Thiamine HCl (Vitamin B1 Injection -) 200 mg IVPB DAILY [facility] Last Admin: 05/20/19 09:30 Dose: 200 mg ASSESSMENT/PLAN: Patient is a 53 year old male with PMH of TIIDM, HFpEF (last EF 45-50%), EMMY ( non-adherent to CPAP) and atrial flutter, with acute hypoxic hypercapneic respiratory failure, found to have ARDS. Patient was extubated, and required reintubation due to mental status. Neuro: -Pt is awake and alert when sedation is held. Sedated on Precedex and Propofol -CT head (05/13/19): no acute hemorrhage or infarcts -Sedation vacation to assess mental status -Bedside EEG done, f/u results -Bedside EMG shows no evidence of myopathy, but cannot rule out myopathic process. Cardiovascular: -Central line changed yesterday -PMH of aflutter, HFpEF -Hx of paroxysmal Aflutter/Afib with RVR -Weaned off levophed for MAP >65 -Cardizem drip d/c'ed; now on oral cardizem 30mg po TID -Continue IV and oral lopressor, IV digoxin, and heparin drip before starting oral regiment (such as Eliquis 5 mg BID) -Cardiology following (Dr. Encinas, Dr. King), appreciate recommendations -Spoke with outpatient monument erector Dr. Genaro Davila - recommended cardioversions, but has failed in the past x2. Pulmonary: -Acute hypoxic and hypercapneic respiratory failure, presenting with ARDS -Intubated, vent settings 350/30/10/40 -Cont vent support and wean FiO2 as tolerated. -Pt scheduled for tracheostomy with Dr. Lawson on 05/22/19 -Atrovent nebulizer PRN Renal: -Andrews catheter changed 05/19/19 -Switch lasix gtt to lasix 80mg BID as pt appears more euvolemic -D/C fluids -Creatinine 1.6, cont to monitro -Free water replacement via NG tube- 250 cc Water Q6H -Resume lisinopril 10mg QD once renal function improves GI: -Protonix 40 mg IV daily -Promote tube feeds ID: -S/p Zosyn, 1 dose vanc -Fever of 100.6 on 05/13, repeat cultures sent -Sputum cx: ESBL -Cont IV meropenem (Day 5) -ID following (Dr. Lang) Endo: -BGM better controlled (287 --> 135) -Cont insulin drip with BGM Q1H F: No standing IVF E: Trend K N: Nepro Tube Feeds DVT: Heparin drip GI: Protonix Central line changed on 05/19/19. Dispo: - Continue ICU level of care, family requests transfer to [place]. Visit type - Emergency Visit Emergency Visit: No - New Patient This patient is new to me today: Yes Date on this admission: 05/20/19 - Critical Care Critical Care patient: Yes Total Critical Care Time (in minutes): 45 Critical Care Statement: The care of this patient involved high complexity decision making to prevent further life threatening deterioration of the patient 's condition and/or to evaluate & treat vital organ system(s) failure or risk of failure. ATTENDING PHYSICIAN STATEMENT I saw and evaluated the patient. I reviewed the resident's note and discussed the case with the resident. I agree with the resident's findings and plan as documented. SUBJECTIVE: OBJECTIVE: ASSESSMENT AND PLAN:
[2019-05-20] MEDS ORDERED: dilTIAZem HCL 50 MG/10 ML - 10 ML VIAL IVPUSH ONE (14:41)
[2019-05-20] MEDS: FUROSEMIDE 100 MG/10 ML INJECTABLE VIAL IVPB SCH (14:53)
--- NOTE | 2019-05-20 15:48 | PN ---
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, Physician History of Present Illness: Pt seen and examined at bedside. He remains in the ICU. He remains intubated. - Current Medication List Current Medications: Active Medications Amino Acids (Prosource No Carb Liquid Pkt) 30 ml PO BID@0800,1730 [facility] Last Admin: 05/20/19 09:00 Dose: 30 ml Chlorhexidine Gluconate (Hibiclens For Decolonization -) 1 applic TP HS [facility] Last Admin: 05/19/19 22:26 Dose: 1 applic Digoxin (Lanoxin Injection -) 0.125 mg IVPUSH DAILY [facility] Last Admin: 05/20/19 09:30 Dose: 0.125 mg Diltiazem HCl (Cardizem Injection -) 10 mg IVPUSH Q4H PRN PRN Reason: TACHYCARDIA Last Admin: 05/10/19 08:30 Dose: 10 mg Diltiazem HCl (Cardizem -) 30 mg PO TID [facility] Last Admin: 05/20/19 14:53 Dose: 30 mg Docusate Sodium (Colace Liquid -) 200 mg PO DAILY PRN PRN Reason: CONSTIPATION Last Admin: 05/16/19 14:28 Dose: 200 mg Ferrous Sulfate (Feosol) 300 mg NGT BID [facility] Last Admin: 05/19/19 22:26 Dose: 300 mg Furosemide (Lasix Injection -) 80 mg IVPB BIDLASIX [facility] Last Admin: 05/20/19 14:53 Dose: 80 mg Heparin Sodium (Porcine) (Heparin -) 1,000 unit IVPUSH PRN PRN PRN Reason: Heparin Heparin Sodium (Porcine) (Heparin -) 5,000 unit IVPUSH PRN PRN PRN Reason: Heparin Propofol (Diprivan -) 1,000,000 mcg in 100 mls @ 3.463 mls/hr IVPB TITR [facility]; Protocol Last Admin: 05/20/19 10:46 Dose: 50 mcg/kg/min, 34.632 mls/hr HEPARIN SOD,PORK IN 0.45% NACL (Heparin-1/2ns 25,000 Units/500) 25,000 units in 500 mls @ 20 mls/hr IVPB TITR [facility]; Protocol Last Admin: 05/19/19 14:48 Dose: 1,150 units/hr, 23 mls/hr Meropenem 500 mg/ Dextrose 100 mls @ 200 mls/hr IVPB Q8H-IV [facility] Last Admin: 05/20/19 09:30 Dose: 200 mls/hr Insulin Human Regular 100 (units/ Sodium Chloride) 100 mls @ 3.5 mls/hr IVPB TITR [facility]; Protocol Last Titration: 05/20/19 03:00 Dose: 2.5 units/hr, 2.5 mls/hr Metoprolol Tartrate (Lopressor Injection -) 5 mg IVPUSH Q4H PRN PRN Reason: TACHYCARDIA Last Admin: 05/17/19 18:09 Dose: 5 mg Metoprolol Tartrate (Lopressor -) 25 mg GT TID [facility] Last Admin: 05/20/19 14:53 Dose: 25 mg Pantoprazole Sodium (Protonix Iv) 40 mg IVPUSH DAILY [facility] Last Admin: 05/20/19 09:30 Dose: 40 mg Polyethylene Glycol (Miralax (For Daily Use) -) 17 gm PO DAILY [facility] Last Admin: 05/20/19 09:30 Dose: 17 grams Scopolamine HBr (Transderm-Scop -) 1 patch TD Q72H [facility] Last Admin: 05/20/19 05:30 Dose: 1 patch Senna (Senna Oral Solution -) 8.8 mg PO HS [facility] Thiamine HCl (Vitamin B1 Injection -) 200 mg IVPB DAILY [facility] Last Admin: 05/20/19 09:30 Dose: 200 mg - Objective Vital Signs: Vital Signs Temperature 99.2 F 05/20/19 06:00 Pulse Rate 101 H 05/20/19 15:19 Respiratory Rate 30 H 05/20/19 15:19 Blood Pressure 113/65 05/20/19 15:19 O2 Sat by Pulse Oximetry (%) 100 05/20/19 09:30 Constitutional: Yes: Calm Eyes: Yes: Conjunctiva Clear HENT: Yes: Atraumatic Cardiovascular: Yes: S1, S2 Respiratory: Yes: CTA Bilaterally Gastrointestinal: Yes: Soft Genitourinary: Yes: Andrews Present Musculoskeletal: Yes: Muscle Weakness Edema: Yes Edema: LUE: Trace, RUE: Trace Neurological: Yes: Lethargy Labs: CBC, BMP 05/20/19 06:00 05/20/19 06:00 INR, PTT INR 1.09 (0.83-1.09) 05/05/19 05:30 Problem List - Problems (1) Acute decompensated heart failure Code(s): I50.9 - HEART FAILURE, UNSPECIFIED (2) Atrial fibrillation and flutter Code(s): I48.91 - UNSPECIFIED ATRIAL FIBRILLATION; I48.92 - UNSPECIFIED ATRIAL FLUTTER (3) Hyperkalemia Code(s): E87.5 - HYPERKALEMIA (4) Pneumonia Code(s): J18.9 - PNEUMONIA, UNSPECIFIED ORGANISM Qualifiers: Pneumonia type: due to unspecified organism (5) Sarcoidosis of other sites Code(s): D86.89 - SARCOIDOSIS OF OTHER SITES Assessment/Plan Current Medications Generic Name Dose Route Start Last Admin Trade Name Freq PRN Reason Stop Dose Admin Amino Acids 30 ml 05/18/19 17:30 05/20/19 09:00 Prosource No Carb Liquid Pkt PO 30 ml BID@0800,1730 [facility] Administration Chlorhexidine Gluconate 1 applic 04/30/19 22:00 05/19/19 22:26 Hibiclens For Decolonization - TP 1 applic HS [facility] Administration Digoxin 0.125 mg 05/12/19 11:45 05/20/19 09:30 Lanoxin Injection - IVPUSH 0.125 mg DAILY [facility] Administration Diltiazem HCl 10 mg 05/10/19 05:04 05/10/19 08:30 Cardizem Injection - IVPUSH 10 mg Q4H PRN Administration TACHYCARDIA Diltiazem HCl 30 mg 05/18/19 18:30 05/20/19 14:53 Cardizem - PO 30 mg TID [facility] Administration Docusate Sodium 200 mg 05/15/19 13:37 05/16/19 14:28 Colace Liquid - PO 200 mg DAILY PRN Administration CONSTIPATION Ferrous Sulfate 300 mg 05/09/19 10:00 05/19/19 22:26 Feosol NGT 300 mg BID [facility] Administration Furosemide 80 mg 05/20/19 14:00 05/20/19 14:53 Lasix Injection - IVPB 80 mg BIDLASIX [facility] Administration Heparin Sodium (Porcine) 1,000 unit 05/14/19 15:27 Heparin - IVPUSH PRN PRN Heparin Heparin Sodium (Porcine) 5,000 unit 05/14/19 15:27 Heparin - IVPUSH PRN PRN Heparin Propofol 1,000,000 mcg in 100 mls @ 3.463 mls/hr 05/13/19 08:30 05/20/19 10: 46 Diprivan - IVPB 50 mcg/kg/min TITR [facility] 34.632 mls/hr Administration Protocol 5 MCG/KG/MIN HEPARIN SOD,PORK IN 0.45% NACL 25,000 units in 500 mls @ 20 mls/hr 05/14/19 15 :30 05/19/19 14:48 Heparin-1/2ns 25,000 Units/500 IVPB 1,150 units/hr TITR [facility] 23 mls/hr Administration Protocol 1,000 UNITS/HR Meropenem 500 mg/ Dextrose 100 mls @ 200 mls/hr 05/16/19 18:00 05/20/19 09:30 IVPB 200 mls/hr Q8H-IV [facility] Administration Insulin Human Regular 100 100 mls @ 3.5 mls/hr 05/19/19 16:30 05/20/19 03:00 units/ Sodium Chloride IVPB 2.5 units/hr TITR [facility] 2.5 mls/hr Titration Protocol 3.5 UNITS/HR Metoprolol Tartrate 5 mg 04/30/19 08:57 05/17/19 18:09 Lopressor Injection - IVPUSH 5 mg Q4H PRN Administration TACHYCARDIA Metoprolol Tartrate 25 mg 05/16/19 14:00 05/20/19 14:53 Lopressor - GT 25 mg TID [facility] Administration Pantoprazole Sodium 40 mg 05/14/19 10:00 05/20/19 09:30 Protonix Iv IVPUSH 40 mg DAILY [facility] Administration Polyethylene Glycol 17 gm 05/16/19 11:45 05/20/19 09:30 Miralax (For Daily Use) - PO 17 grams DAILY [facility] Administration Scopolamine HBr 1 patch 05/17/19 05:15 05/20/19 05:30 Transderm-Scop - TD 1 patch Q72H [facility] Administration Senna 8.8 mg 05/20/19 22:00 Senna Oral Solution - PO HS [facility] Thiamine HCl 200 mg 05/13/19 10:00 05/20/19 09:30 Vitamin B1 Injection - IVPB 200 mg DAILY [facility] Administration Impression 1. RYNE 2. hyperkalemia 3. resp failure requiring intubation 4. resp acidosis 5. dm 6. hx htn 7. sleep apnea 8. obesity 9. hx non compliance 10. chf 11. sarcoid 12. volume overload 13. hypernatremia Plan - cont lasix - software test engineer stable - monitor lytes and bmp - discussed with ICU - vent support, weaning per pulmonary - sedation vacation - sodium stabilizing
[2019-05-20] MEDS: INSULIN REGULAR 100 UNITS in SODIUM CHLORIDE 99 ML IVPB SCH (16:10)
[2019-05-20] MEDS ORDERED: PT OWN MED DRAWER 7, Y5N ONE (19:21)
--- NOTE | 2019-05-20 19:45 | PN ---
Physical Exam: SUBJECTIVE: Patient seen and examined in ICU. No acute complaints overnight. Intubated and sedated. OBJECTIVE: Vital Signs Period Temp Pulse Resp BP Sys/[place] Pulse Ox Last 24 Hr 99 F-99.2 F 100-144 22-39 92-115/56-82 97-100 GENERAL: The patient is intubated and sedated. RASS -5. LUNGS: Breath sounds reduced at bases, difficult to hear given body habitus HEART: irregular rate and rhythm, S1, S2 without murmur, rub or gallop. ABDOMEN: Soft, nontender, nondistended EXTREMITIES: 2+ pulses, warm, well-perfused, no edema. NEUROLOGICAL: sedated SKIN: Warm, dry, no rashes or lesions noted Laboratory Results - last 24 hr 05/20/19 05/20/19 05/20/19 04:14 06:00 06:00 WBC 6.1 RBC 4.00 Hgb 9.9 L Hct 32.3 L MCV 80.8 MCH 24.8 L MCHC 30.7 L RDW 19.4 H Plt Count 133 L MPV 11.4 H PTT (Actin FS) 64.1 H Sodium Potassium Chloride Carbon Dioxide Anion Gap BUN Creatinine Est GFR (CKD-EPI)AfAm Est GFR (CKD-EPI)NonAf POC Glucometer 166 Random Glucose Calcium Phosphorus Magnesium Total Bilirubin AST ALT Alkaline Phosphatase Total Protein Albumin 05/20/19 05/20/19 05/20/19 06:00 06:30 07:23 WBC RBC Hgb Hct MCV MCH MCHC RDW Plt Count MPV PTT (Actin FS) Sodium 142 Potassium 3.9 Chloride 101 Carbon Dioxide 36 H Anion Gap 5 L BUN 71.0 H Creatinine 1.4 H Est GFR (CKD-EPI)AfAm 66.95 Est GFR (CKD-EPI)NonAf 57.76 POC Glucometer 148 164 Random Glucose 164 H Calcium 8.2 L Phosphorus 4.2 Magnesium 2.2 Total Bilirubin 0.4 AST 34 ALT 122 H Alkaline Phosphatase 95 Total Protein 5.2 L Albumin 2.5 L Active Medications Generic Name Dose Route Start Last Admin Trade Name Freq PRN Reason Stop Dose Admin Amino Acids 30 ml 05/18/19 17:30 05/20/19 18:24 Prosource No Carb Liquid Pkt PO 30 ml BID@0800,1730 [facility] Administration Chlorhexidine Gluconate 1 applic 04/30/19 22:00 05/19/19 22:26 Hibiclens For Decolonization - TP 1 applic HS [facility] Administration Digoxin 0.125 mg 05/12/19 11:45 05/20/19 09:30 Lanoxin Injection - IVPUSH 0.125 mg DAILY [facility] Administration Diltiazem HCl 10 mg 05/10/19 05:04 05/10/19 08:30 Cardizem Injection - IVPUSH 10 mg Q4H PRN Administration TACHYCARDIA Diltiazem HCl 30 mg 05/18/19 18:30 05/20/19 14:53 Cardizem - PO 30 mg TID [facility] Administration Docusate Sodium 200 mg 05/15/19 13:37 05/16/19 14:28 Colace Liquid - PO 200 mg DAILY PRN Administration CONSTIPATION Ferrous Sulfate 300 mg 05/09/19 10:00 05/20/19 10:00 Feosol NGT 300 mg BID [facility] Administration Furosemide 80 mg 05/20/19 14:00 05/20/19 14:53 Lasix Injection - IVPB 80 mg BIDLASIX [facility] Administration Heparin Sodium (Porcine) 1,000 unit 05/14/19 15:27 Heparin - IVPUSH PRN PRN Heparin Heparin Sodium (Porcine) 5,000 unit 05/14/19 15:27 Heparin - IVPUSH PRN PRN Heparin Propofol 1,000,000 mcg in 100 mls @ 3.463 mls/hr 05/13/19 08:30 05/20/19 10: 46 Diprivan - IVPB 50 mcg/kg/min TITR [facility] 34.632 mls/hr Administration Protocol 5 MCG/KG/MIN HEPARIN SOD,PORK IN 0.45% NACL 25,000 units in 500 mls @ 20 mls/hr 05/14/19 15 :30 05/20/19 12:00 Heparin-1/2ns 25,000 Units/500 IVPB 1,150 units/hr TITR [facility] 23 mls/hr Administration Protocol 1,000 UNITS/HR Meropenem 500 mg/ Dextrose 100 mls @ 200 mls/hr 05/16/19 18:00 05/20/19 18:24 IVPB 200 mls/hr Q8H-IV [facility] Administration Insulin Human Regular 100 100 mls @ 3.5 mls/hr 05/19/19 16:30 05/20/19 18:52 units/ Sodium Chloride IVPB 4.5 units/hr TITR [facility] 4.5 mls/hr Titration Protocol 3.5 UNITS/HR Metoprolol Tartrate 5 mg 04/30/19 08:57 05/17/19 18:09 Lopressor Injection - IVPUSH 5 mg Q4H PRN Administration TACHYCARDIA Metoprolol Tartrate 25 mg 05/16/19 14:00 05/20/19 14:53 Lopressor - GT 25 mg TID [facility] Administration Pantoprazole Sodium 40 mg 05/14/19 10:00 05/20/19 09:30 Protonix Iv IVPUSH 40 mg DAILY [facility] Administration Polyethylene Glycol 17 gm 05/16/19 11:45 05/20/19 09:30 Miralax (For Daily Use) - PO 17 grams DAILY [facility] Administration Scopolamine HBr 1 patch 05/17/19 05:15 05/20/19 05:30 Transderm-Scop - TD 1 patch Q72H [facility] Administration Senna 8.8 mg 05/20/19 22:00 Senna Oral Solution - PO HS [facility] Thiamine HCl 200 mg 05/13/19 10:00 05/20/19 09:30 Vitamin B1 Injection - IVPB 200 mg DAILY [facility] Administration ASSESSMENT/PLAN: This is a 53 y/o/m with PMHx of DM2, HFpEF(last EF: 45-50%), 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 #Acute Hypoxic and Hypercapneic Respiratory Failure/ EMMY - re-intubated on 05/13 - Duonebs RQID - Follow serial CXRs - ID consulted (Dr. Garcia) -Sputum cx: ESBL - c/w meropenem (day 5) - vent settings 350/30/10/40 - atrovent nebulizer prn -Cont vent support and wean FiO2 as tolerated. -Pt scheduled for tracheostomy with Dr. Lawson on 05/22/19 #Altered mental status and weakness - Concern for critical care induced myopathy - Patient with poor mental status when extubated - Risk factors include glucocorticoids, paralytic use, extended intubation - Head CT - negative for acute pathology - unable to complete MRI due to non-MRI compatible vents - Neuro Consulted (Dr. Pleitez). EEG completed, will F/U results -Bedside EMG shows no evidence of myopathy, but cannot rule out myopathic process. #HFpEF vs. Cardiogenic shock - Lasix discontinued - Strict Is & Os, daily weights - ECHO - EF of 55-60%, no significant abnormalities noted, no vegetations - Cardiology Consult (Dr. Encinas) - Off pressors, BP stable - Cardio recommends cardiac PET or MRI to exclude cardiac involvement in sarcoidosis as outpatient. F/u with Dr. Genaro Davila at [facility] #Atrial Flutter - Cardizem drip for rate control 5mg/hr. - Digoxin 0.125mg daily - Lopressor 25mg BID [facility] via NGtube, Lopressor 5mg IV Q4H PRN - Cardizem mg IV Q4H PRN -Continue and up-titrate oral diltiazem with plan to wean off drip and unfractionated heparin drip before starting oral regimen (Eliquis 5 mg BID) - ICU team s/w bristle machine operator that sees as outpatient- recommended cardioversion, but has failed in the past x2. #RYNE on CKD w/ Hyperkalemia - Monitor BUN/Cr levels, baseline Cr ~1.5 - Renal function improved, Cr now 1.6 - Nephrology Consulted (Dr. Kelley) - Likely secondary to volume overload. Pt. likely has CKD given risk factors of DM2 (uncontrolled glucose) and Heart Failure - IVF discontinued, will continue free fluid through NG tube - Hold Lisinopril, restart 10mg QD once improved renal function - K+ elevated to 5.2, switched patient to Nephro feeds - ortiz changed today - continue lasix drip #DM2 - BGM - ISS - Levemir discontinued - Insulin drip bgm q1h #FEN - IVF discontinued, continue free water fluid via NG tube - monitor and replete lytes as needed - NG tube inserted, tube feeds to goal. Feeds changed to Nepro due to elevated 5.2 #Prophylaxis - Heparin Drip - Protonix 40 daily #Disposition - Continue ICU monitoring, unable to transfer patient to [facility] at this time. Visit type - Emergency Visit Emergency Visit: Yes ED Registration Date: 04/30/19 Care time: The patient presented to the Emergency Department on the above date and was hospitalized for further evaluation of their emergent condition. - New Patient This patient is new to me today: No - Critical Care Critical Care patient: Yes Total Critical Care Time (in minutes): 35 Critical Care Statement: The care of this patient involved high complexity decision making to prevent further life threatening deterioration of the patient 's condition and/or to evaluate & treat vital organ system(s) failure or risk of failure. - Discharge Referral Referred to [facility] Med [facility].C.: No ATTENDING PHYSICIAN STATEMENT I saw and evaluated the patient. I reviewed the resident's note and discussed the case with the resident. I agree with the resident's findings and plan as documented. SUBJECTIVE: OBJECTIVE: ASSESSMENT AND PLAN:
[2019-05-20] MEDS ORDERED: METOPROLOL TARTRATE 5 MG/5 ML VIAL ONE (19:56)
--- NOTE | 2019-05-20 20:53 | PN ---
Teaching Attending Note Name of Resident: Magnus Lloyd ATTENDING PHYSICIAN STATEMENT I saw and evaluated the patient. I reviewed the resident's note and discussed the case with the resident. I agree with the resident's findings and plan as documented. SUBJECTIVE: Intubated/Ventilated unable to participate in medical interview. OBJECTIVE: Afebrile, RVR. Sedated. Last Vital Signs Temp Pulse Resp BP Pulse Ox 99.2 F 102 H 22 H 115/68 100 05/20/19 06:00 05/20/19 18:00 05/20/19 18:00 05/20/19 18:00 05/20/19 09:30 HEENT - Intubated/Ventilated. [facility]. Heart - S1, S2, Tachy Lungs - good air entry bilaterally Abdomen - High BMI. Soft. Bowel Sounds normal. Extremities - Edema + Neuro - Sedated. Laboratory Results - last 24 hr 05/19/19 05/19/19 05/20/19 21:22 22:20 00:00 WBC RBC Hgb Hct MCV MCH MCHC RDW Plt Count MPV PTT (Actin FS) Sodium Potassium Chloride Carbon Dioxide Anion Gap BUN Creatinine Est GFR (CKD-EPI)AfAm Est GFR (CKD-EPI)NonAf POC Glucometer 184 183 169 Random Glucose Calcium Phosphorus Magnesium Total Bilirubin AST ALT Alkaline Phosphatase Total Protein Albumin 05/20/19 05/20/19 05/20/19 01:10 02:32 04:14 WBC RBC Hgb Hct MCV MCH MCHC RDW Plt Count MPV PTT (Actin FS) Sodium Potassium Chloride Carbon Dioxide Anion Gap BUN Creatinine Est GFR (CKD-EPI)AfAm Est GFR (CKD-EPI)NonAf POC Glucometer 168 164 166 Random Glucose Calcium Phosphorus Magnesium Total Bilirubin AST ALT Alkaline Phosphatase Total Protein Albumin 05/20/19 05/20/19 05/20/19 06:00 06:00 06:00 WBC 6.1 RBC 4.00 Hgb 9.9 L Hct 32.3 L MCV 80.8 MCH 24.8 L MCHC 30.7 L RDW 19.4 H Plt Count 133 L MPV 11.4 H PTT (Actin FS) 64.1 H Sodium 142 Potassium 3.9 Chloride 101 Carbon Dioxide 36 H Anion Gap 5 L BUN 71.0 H Creatinine 1.4 H Est GFR (CKD-EPI)AfAm 66.95 Est GFR (CKD-EPI)NonAf 57.76 POC Glucometer Random Glucose 164 H Calcium 8.2 L Phosphorus 4.2 Magnesium 2.2 Total Bilirubin 0.4 AST 34 ALT 122 H Alkaline Phosphatase 95 Total Protein 5.2 L Albumin 2.5 L 05/20/19 05/20/19 05/20/19 06:30 07:23 08:20 WBC RBC Hgb Hct MCV MCH MCHC RDW Plt Count MPV PTT (Actin FS) Sodium Potassium Chloride Carbon Dioxide Anion Gap BUN Creatinine Est GFR (CKD-EPI)AfAm Est GFR (CKD-EPI)NonAf POC Glucometer 148 164 135 Random Glucose Calcium Phosphorus Magnesium Total Bilirubin AST ALT Alkaline Phosphatase Total Protein Albumin 05/20/19 05/20/19 05/20/19 08:54 15:47 17:39 WBC RBC Hgb Hct MCV MCH MCHC RDW Plt Count MPV PTT (Actin FS) Sodium Potassium Chloride Carbon Dioxide Anion Gap BUN Creatinine Est GFR (CKD-EPI)AfAm Est GFR (CKD-EPI)NonAf POC Glucometer 135 272 279 Random Glucose Calcium Phosphorus Magnesium Total Bilirubin AST ALT Alkaline Phosphatase Total Protein Albumin 05/20/19 18:44 WBC RBC Hgb Hct MCV MCH MCHC RDW Plt Count MPV PTT (Actin FS) Sodium Potassium Chloride Carbon Dioxide Anion Gap BUN Creatinine Est GFR (CKD-EPI)AfAm Est GFR (CKD-EPI)NonAf POC Glucometer 266 Random Glucose Calcium Phosphorus Magnesium Total Bilirubin AST ALT Alkaline Phosphatase Total Protein Albumin Current Medications Generic Name Dose Route Start Last Admin Trade Name Freq PRN Reason Stop Dose Admin Amino Acids 30 ml 05/18/19 17:30 05/20/19 18:24 Prosource No Carb Liquid Pkt PO 30 ml BID@0800,1730 [facility] Administration Chlorhexidine Gluconate 1 applic 04/30/19 22:00 05/19/19 22:26 Hibiclens For Decolonization - TP 1 applic HS [facility] Administration Digoxin 0.125 mg 05/12/19 11:45 05/20/19 09:30 Lanoxin Injection - IVPUSH 0.125 mg DAILY [facility] Administration Diltiazem HCl 10 mg 05/10/19 05:04 05/10/19 08:30 Cardizem Injection - IVPUSH 10 mg Q4H PRN Administration TACHYCARDIA Diltiazem HCl 30 mg 05/18/19 18:30 05/20/19 14:53 Cardizem - PO 30 mg TID [facility] Administration Docusate Sodium 200 mg 05/15/19 13:37 05/16/19 14:28 Colace Liquid - PO 200 mg DAILY PRN Administration CONSTIPATION Ferrous Sulfate 300 mg 05/09/19 10:00 05/20/19 10:00 Feosol NGT 300 mg BID [facility] Administration Furosemide 80 mg 05/20/19 14:00 05/20/19 14:53 Lasix Injection - IVPB 80 mg BIDLASIX [facility] Administration Heparin Sodium (Porcine) 1,000 unit 05/14/19 15:27 Heparin - IVPUSH PRN PRN Heparin Heparin Sodium (Porcine) 5,000 unit 05/14/19 15:27 Heparin - IVPUSH PRN PRN Heparin Propofol 1,000,000 mcg in 100 mls @ 3.463 mls/hr 05/13/19 08:30 05/20/19 10: 46 Diprivan - IVPB 50 mcg/kg/min TITR [facility] 34.632 mls/hr Administration Protocol 5 MCG/KG/MIN HEPARIN SOD,PORK IN 0.45% NACL 25,000 units in 500 mls @ 20 mls/hr 05/14/19 15 :30 05/20/19 12:00 Heparin-1/2ns 25,000 Units/500 IVPB 1,150 units/hr TITR [facility] 23 mls/hr Administration Protocol 1,000 UNITS/HR Meropenem 500 mg/ Dextrose 100 mls @ 200 mls/hr 05/16/19 18:00 05/20/19 18:24 IVPB 200 mls/hr Q8H-IV [facility] Administration Insulin Human Regular 100 100 mls @ 3.5 mls/hr 05/19/19 16:30 05/20/19 18:52 units/ Sodium Chloride IVPB 4.5 units/hr TITR [facility] 4.5 mls/hr Titration Protocol 3.5 UNITS/HR Metoprolol Tartrate 5 mg 04/30/19 08:57 05/17/19 18:09 Lopressor Injection - IVPUSH 5 mg Q4H PRN Administration TACHYCARDIA Metoprolol Tartrate 25 mg 05/16/19 14:00 05/20/19 14:53 Lopressor - GT 25 mg TID [facility] Administration Pantoprazole Sodium 40 mg 05/14/19 10:00 05/20/19 09:30 Protonix Iv IVPUSH 40 mg DAILY [facility] Administration Polyethylene Glycol 17 gm 05/16/19 11:45 05/20/19 09:30 Miralax (For Daily Use) - PO 17 grams DAILY [facility] Administration Scopolamine HBr 1 patch 05/17/19 05:15 05/20/19 05:30 Transderm-Scop - TD 1 patch Q72H [facility] Administration Senna 8.8 mg 05/20/19 22:00 Senna Oral Solution - PO HS [facility] Thiamine HCl 200 mg 05/13/19 10:00 05/20/19 09:30 Vitamin B1 Injection - IVPB 200 mg DAILY [facility] Administration Home Medications Medication Instructions Recorded Amiodarone HCl 200 mg PO DAILY 04/30/19 Apixaban [Eliquis] 5 mg PO BID 04/30/19 Diltiazem Cd [Cardizem Cd -] 300 mg PO DAILY 04/30/19 Furosemide 40 mg PO BID 04/30/19 Glipizide 10 mg PO DAILY 04/30/19 Lisinopril 10 mg PO DAILY 04/30/19 Metformin HCl [Glucophage] 1,000 mg PO BID 04/30/19 Sitagliptin Phosphate [Januvia] 100 mg PO DAILY 04/30/19 ASSESSMENT AND PLAN: 53 year old male with Obesity, DM 2, Sarcoidosis, Hx systolic CHF (EF 45-50%, now EF normal), EMMY (non-adherent with CPAP), and Atrial Flutter presented with sudden onset of shortness of breath, requiring intubation and mechanical ventilation. 1. Acute Hypoxic and Hypercapneic Respiratory Failure secondary to Acute Diastolic CHF +/- PNA Extubated 05/09/19 and re-intubated IV BID Lasix diuresis Zosyn changed to Meropenem Continue Bronchodilator Nebs. Steroids tapered off. Rest as per Director [employer] 2. Cardiogenic Shock sec to Acute Diastolic CHF vs Septic Shock, etiology unclear - resolved, off pressors. Weaned off Levophed and Vasopressin Blood Cx - Staph epi, likely contaminant. Echo - no vegetations. Repeat Blood Cx neg x 2. On Meropenem BP rebounded well - holding up on Metoprolol and Diltiazem. Cardiology following - for out-patient Cardiac MRI to asses degree of sarcoid involvement. 3. Atrial flutter with RVR - poorly controlled - on Metoprolol, Diltiazem, Digoxin. On Heparin drip. Further recommendations as per Cardiology. 4. RYNE with Hyperkalemia - likely secondary to Cardiorenal phenomenon, resolving. Nephrology following. 5. Hypernateremia sec to dehydration/overdiuresis - resolved with IV hydration. 6. DM 2 - Continue Insulin drip. 7. Generalized weakness s/p Intubation/Extubation with progressive weakness and encephalopathy necessitating Re-Intubation ?deconditioning. CT Head negative for acute findings. ?GBS ?Critical Care Myopathy. Consultation for EMG. 8. Iron Deficiency Anemia - FeSO4 supplementation. No evidence of active blood loss. For out-patient Ix. DVT Px - Heparin SQ GI Px - PPI
[2019-05-20] MEDS: CHLORHEXIDINE GLUCONATE 4% CLEANSER FOR DECOLONIZATION TP SCH (22:09)
[2019-05-21] MEDS ORDERED: MEROPENEM 500 MG VIAL (RESTRICTED TO ID) IVPB ONE ×4 (03:03→23:23)
[2019-05-21] MEDS ORDERED: PT OWN MED DRAWER 7, Y5N ONE ×2 (03:04→12:25)
[2019-05-21] MEDS ORDERED: DEXTROSE 5%-WATER 100 ML IVPB ONE ×4 (03:04→23:23)
[2019-05-21] MEDS: MEROPENEM 500 MG in DEXTROSE 5%-WATER 100 ML IVPB SCH ×3 (03:19→17:01)
[2019-05-21] MEDS: FUROSEMIDE 100 MG/10 ML INJECTABLE VIAL IVPB SCH ×2 (05:42→13:42)
[2019-05-21] MEDS: dilTIAZem HCL 30 MG TABLET (FP) PO SCH ×3 (05:42→22:25)
[2019-05-21] MEDS: METOPROLOL TARTRATE 25 MG TABLET (FP) GT SCH ×3 (05:42→22:25)
[2019-05-21] MEDS ORDERED: PROPOFOL 1,000,000 MCG/100 ML VIAL ONE ×2 (06:14→23:23)
[2019-05-21 06:45] LABS: BASO % 0.5 % (0-2.0); EOS % 2.4 % (0-4.5); HEMATOCRIT 31.9 % (35.4-49); HEMOGLOBIN 9.7 GM/dL (11.7-16.9); LYMPH % 3.5 % (8-40); MCH 24.7 pg (25.7-33.7); MCHC 30.5 g/dl (32.0-35.9); MEAN CELL VOLUME 80.9 fl (80-96); MEAN PLT VOLUME 11.5 fl (7.5-11.1); MONO % 7.4 % (3.8-10.2); NEUT % 86.2 % (42.8-82.8); PLATELET COUNT 136 K/MM3 (134-434); RBC 3.94 M/mm3 (4.00-5.60); RDW 19.7 % (11.9-15.9); WHITE BLOOD COUNT 5.8 K/mm3 (4.0-10.0)
[2019-05-21 07:16] LABS: ALBUMIN 2.3 g/dl (3.4-5.0); BILIRUBIN,TOTAL 0.4 mg/dL (0.2-1); BLOOD UREA NITROGEN 70.6 mg/dL (7-18); CALCIUM 8.4 mg/dL (8.5-10.1); CREATININE 1.4 mg/dL (0.55-1.3); MAGNESIUM 2.3 mg/dL (1.8-2.4); TOT PROT 5.1 g/dl (6.4-8.2)
[2019-05-21] MEDS: PROPOFOL 1,000,000 MCG/100 ML VIAL IVPB SCH ×2 (10:15→13:10)
[2019-05-21] MEDS: POLYETHYLENE GLYCOL 3350 119 GM BTL PO SCH (10:20)
[2019-05-21] MEDS: AMINO ACIDS/PROTEIN HYDROLYS 30 ML LIQUID.PKT PO SCH ×2 (10:21→16:53)
[2019-05-21] MEDS: THIAMINE HCL 200 MG/2 ML VIAL IVPB SCH (10:28)
[2019-05-21] MEDS: DIGOXIN 0.5 MG/2 ML AMPUL IVPUSH SCH (10:30)
[2019-05-21] MEDS: DOCUSATE NA 100 MG/10 ML UNIT-DOSE CUPS PO PRN (10:30)
[2019-05-21] MEDS: PANTOPRAZOLE SODIUM 40 MG VIAL IVPUSH SCH (10:31)
[2019-05-21] MEDS: FERROUS SO4 300 MG/5 ML ORAL SOLN UNIT DOSE CUPS NGT SCH ×2 (10:32→22:26)
--- NOTE | 2019-05-21 11:13 | PN ---
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, Physician History of Present Illness: AWAKE ON VENTILATOR LOW GRADE TEMP SPUTUM C/S enterobacter WBC WNL - Current Medication List Current Medications: Active Medications Amino Acids (Prosource No Carb Liquid Pkt) 30 ml PO BID@0800,1730 [facility] Last Admin: 05/21/19 10:21 Dose: 30 ml Chlorhexidine Gluconate (Hibiclens For Decolonization -) 1 applic TP HS [facility] Last Admin: 05/20/19 22:09 Dose: 1 applic Digoxin (Lanoxin Injection -) 0.125 mg IVPUSH DAILY [facility] Last Admin: 05/21/19 10:30 Dose: 0.125 mg Diltiazem HCl (Cardizem Injection -) 10 mg IVPUSH Q4H PRN PRN Reason: TACHYCARDIA Last Admin: 05/10/19 08:30 Dose: 10 mg Diltiazem HCl (Cardizem -) 30 mg PO TID [facility] Last Admin: 05/21/19 05:42 Dose: Not Given Docusate Sodium (Colace Liquid -) 200 mg PO DAILY PRN PRN Reason: CONSTIPATION Last Admin: 05/21/19 10:30 Dose: 200 mg Ferrous Sulfate (Feosol) 300 mg NGT BID [facility] Last Admin: 05/21/19 10:32 Dose: 300 mg Furosemide (Lasix Injection -) 80 mg IVPB BIDLASIX [facility] Last Admin: 05/21/19 05:42 Dose: Not Given Propofol (Diprivan -) 1,000,000 mcg in 100 mls @ 3.463 mls/hr IVPB TITR [facility]; Protocol Last Admin: 05/21/19 10:15 Dose: 40 mcg/kg/min, 27.705 mls/hr HEPARIN SOD,PORK IN 0.45% NACL (Heparin-1/2ns 25,000 Units/500) 25,000 units in 500 mls @ 20 mls/hr IVPB TITR [facility]; Protocol Last Admin: 05/20/19 12:00 Dose: 1,150 units/hr, 23 mls/hr Meropenem 500 mg/ Dextrose 100 mls @ 200 mls/hr IVPB Q8H-IV [facility] Last Admin: 05/21/19 10:21 Dose: 200 mls/hr Insulin Human Regular 100 (units/ Sodium Chloride) 100 mls @ 3.5 mls/hr IVPB TITR [facility]; Protocol Last Titration: 05/21/19 10:15 Dose: 2.5 units/hr, 2.5 mls/hr Metoprolol Tartrate (Lopressor Injection -) 5 mg IVPUSH Q4H PRN PRN Reason: TACHYCARDIA Last Admin: 05/17/19 18:09 Dose: 5 mg Metoprolol Tartrate (Lopressor -) 25 mg GT TID [facility] Last Admin: 05/21/19 05:42 Dose: Not Given Pantoprazole Sodium (Protonix Iv) 40 mg IVPUSH DAILY [facility] Last Admin: 05/21/19 10:31 Dose: 40 mg Polyethylene Glycol (Miralax (For Daily Use) -) 17 gm PO DAILY [facility] Last Admin: 05/21/19 10:20 Dose: 17 grams Scopolamine HBr (Transderm-Scop -) 1 patch TD Q72H [facility] Last Admin: 05/20/19 05:30 Dose: 1 patch Senna (Senna Oral Solution -) 8.8 mg PO HS [facility] Last Admin: 05/21/19 00:00 Dose: 8.8 mg Thiamine HCl (Vitamin B1 Injection -) 200 mg IVPB DAILY [facility] Last Admin: 05/21/19 10:28 Dose: 200 mg - Objective Vital Signs: Vital Signs Temperature 100.1 F H 05/21/19 10:00 Pulse Rate 104 H 05/21/19 10:30 Respiratory Rate 37 H 05/21/19 10:00 Blood Pressure 112/72 05/21/19 10:00 O2 Sat by Pulse Oximetry (%) 100 05/21/19 08:30 Constitutional: Yes: No Distress, Obese Eyes: Yes: Conjunctiva Clear Cardiovascular: Yes: Regular Rate and Rhythm, S1, S2 Respiratory: Yes: Mechanically Ventilated Gastrointestinal: Yes: Normal Bowel Sounds, Soft, Abdomen, Obese. No: Tenderness Labs: CBC, BMP 05/21/19 05:00 05/21/19 05:00 INR, PTT INR 1.09 (0.83-1.09) 05/05/19 05:30 Assessment/Plan RESP FAILURE S/P RE-INTUBATION CHF/ PNEUMONIA + SPUTUM C/S ESBL RENAL FAILURE IMPROVED CONTINUE VENTILATORY/ HEMODYNAMIC SUPPORT CONTINUE MEROPENEM VENTILATORY SUPPORT
--- NOTE | 2019-05-21 11:34 | PN ---
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, Physician History of Present Illness: Awake off sedation and intubated AC Mode of vent, 30% FiO2 PEEP 10. Planned for tracheostomy, low grade fevers. Aflutter with improved rate response. - Current Medication List Current Medications: Active Medications Amino Acids (Prosource No Carb Liquid Pkt) 30 ml PO BID@0800,1730 [facility] Last Admin: 05/21/19 10:21 Dose: 30 ml Chlorhexidine Gluconate (Hibiclens For Decolonization -) 1 applic TP HS [facility] Last Admin: 05/20/19 22:09 Dose: 1 applic Digoxin (Lanoxin Injection -) 0.125 mg IVPUSH DAILY [facility] Last Admin: 05/21/19 10:30 Dose: 0.125 mg Diltiazem HCl (Cardizem Injection -) 10 mg IVPUSH Q4H PRN PRN Reason: TACHYCARDIA Last Admin: 05/10/19 08:30 Dose: 10 mg Diltiazem HCl (Cardizem -) 30 mg PO TID [facility] Last Admin: 05/21/19 05:42 Dose: Not Given Docusate Sodium (Colace Liquid -) 200 mg PO DAILY PRN PRN Reason: CONSTIPATION Last Admin: 05/21/19 10:30 Dose: 200 mg Ferrous Sulfate (Feosol) 300 mg NGT BID [facility] Last Admin: 05/21/19 10:32 Dose: 300 mg Furosemide (Lasix Injection -) 80 mg IVPB BIDLASIX [facility] Last Admin: 05/21/19 05:42 Dose: Not Given Propofol (Diprivan -) 1,000,000 mcg in 100 mls @ 3.463 mls/hr IVPB TITR [facility]; Protocol Last Admin: 05/21/19 10:15 Dose: 40 mcg/kg/min, 27.705 mls/hr HEPARIN SOD,PORK IN 0.45% NACL (Heparin-1/2ns 25,000 Units/500) 25,000 units in 500 mls @ 20 mls/hr IVPB TITR [facility]; Protocol Last Admin: 05/20/19 12:00 Dose: 1,150 units/hr, 23 mls/hr Meropenem 500 mg/ Dextrose 100 mls @ 200 mls/hr IVPB Q8H-IV [facility] Last Admin: 05/21/19 10:21 Dose: 200 mls/hr Insulin Human Regular 100 (units/ Sodium Chloride) 100 mls @ 3.5 mls/hr IVPB TITR [facility]; Protocol Last Titration: 05/21/19 10:15 Dose: 2.5 units/hr, 2.5 mls/hr Metoprolol Tartrate (Lopressor Injection -) 5 mg IVPUSH Q4H PRN PRN Reason: TACHYCARDIA Last Admin: 05/17/19 18:09 Dose: 5 mg Metoprolol Tartrate (Lopressor -) 25 mg GT TID [facility] Last Admin: 05/21/19 05:42 Dose: Not Given Pantoprazole Sodium (Protonix Iv) 40 mg IVPUSH DAILY [facility] Last Admin: 05/21/19 10:31 Dose: 40 mg Polyethylene Glycol (Miralax (For Daily Use) -) 17 gm PO DAILY [facility] Last Admin: 05/21/19 10:20 Dose: 17 grams Scopolamine HBr (Transderm-Scop -) 1 patch TD Q72H [facility] Last Admin: 05/20/19 05:30 Dose: 1 patch Senna (Senna Oral Solution -) 8.8 mg PO HS [facility] Last Admin: 05/21/19 00:00 Dose: 8.8 mg Thiamine HCl (Vitamin B1 Injection -) 200 mg IVPB DAILY [facility] Last Admin: 05/21/19 10:28 Dose: 200 mg - Objective Vital Signs: Vital Signs Temperature 100.1 F H 05/21/19 10:00 Pulse Rate 104 H 05/21/19 10:30 Respiratory Rate 37 H 05/21/19 10:00 Blood Pressure 112/72 05/21/19 10:00 O2 Sat by Pulse Oximetry (%) 100 05/21/19 08:30 Constitutional: Yes: No Distress, Calm Neck: Yes: Supple Cardiovascular: Yes: Pulse Irregular Respiratory: Yes: Intubated, Mechanically Ventilated, Rhonchi Gastrointestinal: Yes: Normal Bowel Sounds, Soft, Abdomen, Obese Genitourinary: Yes: Andrews Present Edema: Yes Edema: LLE: Trace, RLE: Trace Labs: CBC, BMP 05/21/19 05:00 05/21/19 05:00 INR, PTT INR 1.09 (0.83-1.09) 05/05/19 05:30 - ....Imaging Chest X-ray: Report Reviewed (right base infiltrate/ATX) EKG: Report Reviewed (Tele: Aflgray) Problem List - Problems (1) Pneumonia Code(s): J18.9 - PNEUMONIA, UNSPECIFIED ORGANISM Qualifiers: Pneumonia type: due to unspecified organism (2) Acute hypercapnic respiratory failure due to obstructive sleep apnea Code(s): J96.02 - ACUTE RESPIRATORY FAILURE WITH HYPERCAPNIA; G47.33 - OBSTRUCTIVE SLEEP APNEA (ADULT) (PEDIATRIC) (3) Acute decompensated heart failure Code(s): I50.9 - HEART FAILURE, UNSPECIFIED (4) Acute renal failure Code(s): N17.9 - ACUTE KIDNEY FAILURE, UNSPECIFIED Qualifiers: Acute renal failure type: unspecified Qualified Code(s): N17.9 - Acute kidney failure, unspecified (5) Sarcoidosis of other sites Code(s): D86.89 - SARCOIDOSIS OF OTHER SITES (6) Type 2 diabetes mellitus Code(s): E11.9 - TYPE 2 DIABETES MELLITUS WITHOUT COMPLICATIONS Qualifiers: Diabetes mellitus fci insulin use: without fci use Diabetes mellitus complication detail: with chronic kidney disease Chronic kidney disease stage: stage 2 (mild) (7) Atrial fibrillation and flutter Code(s): I48.91 - UNSPECIFIED ATRIAL FIBRILLATION; I48.92 - UNSPECIFIED ATRIAL FLUTTER Assessment/Plan 05/01/2019 Normal LV and RV size and fxn, tr TR 03/14/2019 Normal LV size and fxn, no thrombus ADEEL, mild-mod dilated and HK RV, tr MR, mild-mod TR, tr ND, trace pericardial effusion 1. Acute hypoxic and hypercapneic respiratory failure currently on mechanical ventilation 2. Pneumonia, septic shock, Gram Positive Bacteremia and ARDS 3. Sarcoidosis confirmed by skin biopsy, r/o cardiac involvement 4. OSAS nonadherent to CPAP 5. Paroxysmal Aflutter/Afib with RVR 6. Acute on chronic diastolic heart failure 7. Acute on CKD with hyperkalemia resolving 8. Type 2 DM 9. Anemia PLAN: 1. Empiric antibiotic, bronchodilator and enteral feeds 2. Vent manage per ABG, taper fiO2 to keep SpO2 >90%, plan for tracheostomy with bronchoscopy on 3. Rate-control with IV digoxin, uptitrate oral Lopressor and Cardizem as hemodynamics tolerate, IV Lopressor as needed and continue unfractionated Heparin drip before starting oral regiment such as Eliquis 5 mg BID 4. Lasix IV with monitor renal function and electrolytes 5. Resume lisinopril 10 mg QD once renal function and hyperkalemia stabilizes 6. Follow up with Dr. Genaro Davila (cardiology at [place]). Consider cardiac PET or MRI to exclude cardiac involvement in sarcoidosis as outpatient
--- NOTE | 2019-05-21 11:42 | PN ---
Teaching Attending Note Name of Resident: Zoë Schmidt ATTENDING PHYSICIAN STATEMENT I saw and evaluated the patient. I reviewed the resident's note and discussed the case with the resident. I agree with the resident's findings and plan as documented. SUBJECTIVE: Patient seen and examined in the ICU. AC Mode of vent, 30% FiO2. Remains intubated and sedated. For Trach tomorrow. Intake & Output 05/18/19 05/19/19 05/20/19 05/21/19 23:59 23:59 23:59 23:59 Intake Total 2702 3116.5 4479 1747 Output Total 4300 2975 2400 Balance -1598 141.5 2079 1747 Weight 264 lb 4.8 oz 264 lb 264 lb 256 lb 6.4 oz Last Vital Signs Temp Pulse Resp BP Pulse Ox 100.1 F H 104 H 37 H 112/72 100 05/21/19 10:00 05/21/19 10:30 05/21/19 10:00 05/21/19 10:00 05/21/19 08:30 Active Medications Amino Acids (Prosource No Carb Liquid Pkt) 30 ml PO BID@0800,1730 [facility] Last Admin: 05/21/19 10:21 Dose: 30 ml Chlorhexidine Gluconate (Hibiclens For Decolonization -) 1 applic TP HS [facility] Last Admin: 05/20/19 22:09 Dose: 1 applic Digoxin (Lanoxin Injection -) 0.125 mg IVPUSH DAILY [facility] Last Admin: 05/21/19 10:30 Dose: 0.125 mg Diltiazem HCl (Cardizem Injection -) 10 mg IVPUSH Q4H PRN PRN Reason: TACHYCARDIA Last Admin: 05/10/19 08:30 Dose: 10 mg Diltiazem HCl (Cardizem -) 30 mg PO TID [facility] Last Admin: 05/21/19 05:42 Dose: Not Given Docusate Sodium (Colace Liquid -) 200 mg PO DAILY PRN PRN Reason: CONSTIPATION Last Admin: 05/21/19 10:30 Dose: 200 mg Ferrous Sulfate (Feosol) 300 mg NGT BID [facility] Last Admin: 05/21/19 10:32 Dose: 300 mg Furosemide (Lasix Injection -) 80 mg IVPB BIDLASIX [facility] Last Admin: 05/21/19 05:42 Dose: Not Given Propofol (Diprivan -) 1,000,000 mcg in 100 mls @ 3.463 mls/hr IVPB TITR [facility]; Protocol Last Admin: 05/21/19 10:15 Dose: 40 mcg/kg/min, 27.705 mls/hr HEPARIN SOD,PORK IN 0.45% NACL (Heparin-1/2ns 25,000 Units/500) 25,000 units in 500 mls @ 20 mls/hr IVPB TITR [facility]; Protocol Last Admin: 05/20/19 12:00 Dose: 1,150 units/hr, 23 mls/hr Meropenem 500 mg/ Dextrose 100 mls @ 200 mls/hr IVPB Q8H-IV [facility] Last Admin: 05/21/19 10:21 Dose: 200 mls/hr Insulin Human Regular 100 (units/ Sodium Chloride) 100 mls @ 3.5 mls/hr IVPB TITR [facility]; Protocol Last Titration: 05/21/19 10:15 Dose: 2.5 units/hr, 2.5 mls/hr Metoprolol Tartrate (Lopressor Injection -) 5 mg IVPUSH Q4H PRN PRN Reason: TACHYCARDIA Last Admin: 05/17/19 18:09 Dose: 5 mg Metoprolol Tartrate (Lopressor -) 25 mg GT TID [facility] Last Admin: 05/21/19 05:42 Dose: Not Given Pantoprazole Sodium (Protonix Iv) 40 mg IVPUSH DAILY [facility] Last Admin: 05/21/19 10:31 Dose: 40 mg Polyethylene Glycol (Miralax (For Daily Use) -) 17 gm PO DAILY [facility] Last Admin: 05/21/19 10:20 Dose: 17 grams Scopolamine HBr (Transderm-Scop -) 1 patch TD Q72H [facility] Last Admin: 05/20/19 05:30 Dose: 1 patch Senna (Senna Oral Solution -) 8.8 mg PO HS [facility] Last Admin: 05/21/19 00:00 Dose: 8.8 mg Thiamine HCl (Vitamin B1 Injection -) 200 mg IVPB DAILY [facility] Last Admin: 05/21/19 10:28 Dose: 200 mg GEN: Intubated and sedated. PULM: scattered rhonchi B/L CV: S1 S2, irreg/irreg ABD: + BS, S/S N/T N/D X4Q EXT: + Pulses, WWPX4, + edema [employer]AMINATED [employer]ANT: sedated Laboratory Results - last 24 hr 05/20/19 05/20/19 05/20/19 15:47 17:39 18:44 WBC RBC Hgb Hct MCV MCH MCHC RDW Plt Count MPV Absolute Neuts (auto) Neutrophils % Lymphocytes % Monocytes % Eosinophils % Basophils % Nucleated RBC % PTT (Actin FS) Sodium Potassium Chloride Carbon Dioxide Anion Gap BUN Creatinine Est GFR (CKD-EPI)AfAm Est GFR (CKD-EPI)NonAf POC Glucometer 272 279 266 Random Glucose Calcium Phosphorus Magnesium Total Bilirubin AST ALT Alkaline Phosphatase Total Protein Albumin 05/20/19 05/21/19 05/21/19 21:40 00:03 03:09 WBC RBC Hgb Hct MCV MCH MCHC RDW Plt Count MPV Absolute Neuts (auto) Neutrophils % Lymphocytes % Monocytes % Eosinophils % Basophils % Nucleated RBC % PTT (Actin FS) Sodium Potassium Chloride Carbon Dioxide Anion Gap BUN Creatinine Est GFR (CKD-EPI)AfAm Est GFR (CKD-EPI)NonAf POC Glucometer 185 153 135 Random Glucose Calcium Phosphorus Magnesium Total Bilirubin AST ALT Alkaline Phosphatase Total Protein Albumin 05/21/19 05/21/19 05/21/19 05:00 05:00 05:00 WBC 5.8 RBC 3.94 L Hgb 9.7 L Hct 31.9 L MCV 80.9 MCH 24.7 L MCHC 30.5 L RDW 19.7 H Plt Count 136 MPV 11.5 H Absolute Neuts (auto) 5.0 Neutrophils % 86.2 H Lymphocytes % 3.5 L D Monocytes % 7.4 Eosinophils % 2.4 D Basophils % 0.5 Nucleated RBC % 0 PTT (Actin FS) 59.3 H Sodium 141 Potassium 4.0 Chloride 100 Carbon Dioxide 35 H Anion Gap 6 L BUN 70.6 H Creatinine 1.4 H Est GFR (CKD-EPI)AfAm 66.95 Est GFR (CKD-EPI)NonAf 57.76 POC Glucometer Random Glucose 148 H Calcium 8.4 L Phosphorus 4.0 Magnesium 2.3 Total Bilirubin 0.4 AST 41 H ALT 98 H Alkaline Phosphatase 90 Total Protein 5.1 L Albumin 2.3 L 05/21/19 05/21/19 05/21/19 05:21 10:11 11:08 WBC RBC Hgb Hct MCV MCH MCHC RDW Plt Count MPV Absolute Neuts (auto) Neutrophils % Lymphocytes % Monocytes % Eosinophils % Basophils % Nucleated RBC % PTT (Actin FS) Sodium Potassium Chloride Carbon Dioxide Anion Gap BUN Creatinine Est GFR (CKD-EPI)AfAm Est GFR (CKD-EPI)NonAf POC Glucometer 141 217 187 Random Glucose Calcium Phosphorus Magnesium Total Bilirubin AST ALT Alkaline Phosphatase Total Protein Albumin ASSESS: Acute Hypoxic and Hypercapneic Respiratory Failure Pneumonia Gram Positive Bacteremia Septic Shock Volume Overload ARDS Lactic Acidosis Hyperkalemia Acute Kidney Injury Atrial Flutter with RVR HTN DM Anemia PLAN: - Cont Vent Support - Wean FiO2 as tolerated - Nebs - IVP Lasix - Sedation Vacation to assess mental status - ABX - Rate Control - AC - Strict I's & O's - Monitor BUN/Cr - Replete e-lytes prn - FSs - SSI - TFs - DVT/GI prophylaxis - Trach - GI ppx - continue ICU monitoring - For Trach tomorrow Dr Maya Critical care time spent in reviewing chart, evaluating patient and formulating plan - 36 minutes.
[2019-05-21] MEDS: HEPARIN SOD,PORK IN 0.45% NACL 25,000 UNITS/500 ML INFUS.BAG IVPB SCH ×2 (12:31→16:25)
--- NOTE | 2019-05-21 15:28 | PN ---
Physical Exam: SUBJECTIVE: Patient seen and examined. Pt was hypotensive overnight, morning meds held. Patient remains intubated, does not respond to questions. OBJECTIVE: Vital Signs Period Temp Pulse Resp BP Sys/[place] Pulse Ox Last 24 Hr 99.0 F-100.1 F 75-115 3-37 76-115/52-72 100-100 GENERAL: The patient is sedated and intubated. Minimally responsive to sternal rub. HEAD: Normal with no signs of trauma. Endotracheal tube in place. ENT: Ears normal, nares patent, oropharynx clear without exudates, moist mucous membranes. LUNGS: Mechanical ventilation. Scattered ronchi. No wheezes or crackles. HEART: Regular rate and rhythm, S1, S2 without murmur, rub or gallop. ABDOMEN: Soft, nontender, nondistended, normoactive bowel sounds, no guarding, no rebound, no hepatosplenomegaly, no masses. EXTREMITIES: 2+ pulses,warm, well-perfused, no edema. NEUROLOGICAL: Unable to assess. SKIN: Warm, dry, normal turgor, no rashes or lesions noted Laboratory Results - last 24 hr CBC, BMP 05/21/19 05:00 05/21/19 05:00 Active Medications Amino Acids (Prosource No Carb Liquid Pkt) 30 ml PO BID@0800,1730 [facility] Last Admin: 05/21/19 10:21 Dose: 30 ml Chlorhexidine Gluconate (Hibiclens For Decolonization -) 1 applic TP HS [facility] Last Admin: 05/20/19 22:09 Dose: 1 applic Digoxin (Lanoxin Injection -) 0.125 mg IVPUSH DAILY [facility] Last Admin: 05/21/19 10:30 Dose: 0.125 mg Diltiazem HCl (Cardizem Injection -) 10 mg IVPUSH Q4H PRN PRN Reason: TACHYCARDIA Last Admin: 05/10/19 08:30 Dose: 10 mg Diltiazem HCl (Cardizem -) 30 mg PO TID [facility] Last Admin: 05/21/19 13:41 Dose: 30 mg Docusate Sodium (Colace Liquid -) 200 mg PO DAILY PRN PRN Reason: CONSTIPATION Last Admin: 05/21/19 10:30 Dose: 200 mg Ferrous Sulfate (Feosol) 300 mg NGT BID [facility] Last Admin: 05/21/19 10:32 Dose: 300 mg Furosemide (Lasix Injection -) 80 mg IVPB BIDLASIX [facility] Last Admin: 05/21/19 13:42 Dose: 80 mg Propofol (Diprivan -) 1,000,000 mcg in 100 mls @ 3.463 mls/hr IVPB TITR [facility]; Protocol Last Admin: 05/21/19 13:10 Dose: 40 mcg/kg/min, 27.705 mls/hr HEPARIN SOD,PORK IN 0.45% NACL (Heparin-1/2ns 25,000 Units/500) 25,000 units in 500 mls @ 20 mls/hr IVPB TITR [facility]; Protocol Last Admin: 05/21/19 12:31 Dose: 1,150 units/hr, 23 mls/hr Meropenem 500 mg/ Dextrose 100 mls @ 200 mls/hr IVPB Q8H-IV [facility] Last Admin: 05/21/19 10:21 Dose: 200 mls/hr Insulin Human Regular 100 (units/ Sodium Chloride) 100 mls @ 3.5 mls/hr IVPB TITR [facility]; Protocol Last Titration: 05/21/19 13:15 Dose: 4.5 units/hr, 4.5 mls/hr Metoprolol Tartrate (Lopressor Injection -) 5 mg IVPUSH Q4H PRN PRN Reason: TACHYCARDIA Last Admin: 05/17/19 18:09 Dose: 5 mg Metoprolol Tartrate (Lopressor -) 25 mg GT TID [facility] Last Admin: 05/21/19 05:42 Dose: Not Given Pantoprazole Sodium (Protonix Iv) 40 mg IVPUSH DAILY [facility] Last Admin: 05/21/19 10:31 Dose: 40 mg Polyethylene Glycol (Miralax (For Daily Use) -) 17 gm PO DAILY [facility] Last Admin: 05/21/19 10:20 Dose: 17 grams Scopolamine HBr (Transderm-Scop -) 1 patch TD Q72H [facility] Last Admin: 05/20/19 05:30 Dose: 1 patch Senna (Senna Oral Solution -) 8.8 mg PO HS [facility] Last Admin: 05/21/19 00:00 Dose: 8.8 mg Thiamine HCl (Vitamin B1 Injection -) 200 mg IVPB DAILY [facility] Last Admin: 05/21/19 10:28 Dose: 200 mg ASSESSMENT/PLAN: Patient is a 53 year old male with PMH of TIIDM, HFpEF (last EF 45-50%), EMMY ( non-adherent to CPAP) and atrial flutter, with acute hypoxic hypercapneic respiratory failure, found to have ARDS. Patient was extubated, and required reintubation due to mental status. Neuro: -Pt is awake and alert when sedation is held. Sedated on Precedex and Propofol -CT head (05/13/19): no acute hemorrhage or infarcts -Daily sedation vacation to assess mental status -Bedside EEG done, f/u results -Bedside EMG shows no evidence of myopathy, but cannot rule out myopathic process. Cardiovascular: -Central line changed 05/20/19 -PMH of aflutter, HFpEF -Hx of paroxysmal Aflutter/Afib with RVR -Weaned off levophed for MAP >65 -Cardizem drip d/c'ed; now on oral cardizem 30mg po TID -Continue IV and oral lopressor, IV digoxin, and heparin drip before starting oral regiment (such as Eliquis 5 mg BID) -Cardiology following (Dr. Encinas, Dr. King), appreciate recommendations -Spoke with outpatient tire fabricator Dr. Genaro Davila - recommends cardioversions, but has failed in the past x2. Pulmonary: -Acute hypoxic and hypercapneic respiratory failure, presenting with ARDS -Intubated, vent settings 350/30/10/40 -Cont vent support and taper FiO2 -Pt scheduled for tracheostomy with Dr. Lawson on 05/22/19 (NPO after midnight, hold heparin) -Atrovent nebulizer PRN Renal: -Andrews catheter changed 05/19/19 -Nephro following (Dr. Kelley) -Lasix gtt d/c'ed, cont lasix 80mg BID -D/C fluids -Creatinine stable @ 1.4, cont to monitor -Free water replacement via NG tube- 250 cc Water Q6H -Resume lisinopril 10mg QD once renal function improves GI: -Protonix 40 mg IV daily -Promote tube feeds -Pt has not had BM in several days, will order enema ID: -Sputum cx: ESBL -Cont IV meropenem (Day 6) -ID following (Dr. Lang) Endo: -BGM better controlled (180s) -Cont insulin drip prn with BGM Q2H F: No standing IVF E: Trend K N: Nepro Tube Feeds DVT: Heparin drip GI: Protonix Central line changed on 05/19/19. Dispo: - Continue ICU level of care, family requests transfer to [place]. Visit type - Emergency Visit Emergency Visit: No - New Patient This patient is new to me today: No - Critical Care Critical Care patient: Yes Total Critical Care Time (in minutes): 45 Critical Care Statement: The care of this patient involved high complexity decision making to prevent further life threatening deterioration of the patient 's condition and/or to evaluate & treat vital organ system(s) failure or risk of failure. ATTENDING PHYSICIAN STATEMENT I saw and evaluated the patient. I reviewed the resident's note and discussed the case with the resident. I agree with the resident's findings and plan as documented. SUBJECTIVE: OBJECTIVE: ASSESSMENT AND PLAN:
--- NOTE | 2019-05-21 16:02 | PN ---
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, Physician History of Present Illness: Pt seen and examined at bedside. He remains in the ICU. He remains intubated. - Current Medication List Current Medications: Active Medications Amino Acids (Prosource No Carb Liquid Pkt) 30 ml PO BID@0800,1730 [facility] Last Admin: 05/21/19 10:21 Dose: 30 ml Chlorhexidine Gluconate (Hibiclens For Decolonization -) 1 applic TP HS [facility] Last Admin: 05/20/19 22:09 Dose: 1 applic Digoxin (Lanoxin Injection -) 0.125 mg IVPUSH DAILY [facility] Last Admin: 05/21/19 10:30 Dose: 0.125 mg Diltiazem HCl (Cardizem Injection -) 10 mg IVPUSH Q4H PRN PRN Reason: TACHYCARDIA Last Admin: 05/10/19 08:30 Dose: 10 mg Diltiazem HCl (Cardizem -) 30 mg PO TID [facility] Last Admin: 05/21/19 13:41 Dose: 30 mg Docusate Sodium (Colace Liquid -) 200 mg PO DAILY PRN PRN Reason: CONSTIPATION Last Admin: 05/21/19 10:30 Dose: 200 mg Ferrous Sulfate (Feosol) 300 mg NGT BID [facility] Last Admin: 05/21/19 10:32 Dose: 300 mg Furosemide (Lasix Injection -) 80 mg IVPB BIDLASIX [facility] Last Admin: 05/21/19 13:42 Dose: 80 mg Propofol (Diprivan -) 1,000,000 mcg in 100 mls @ 3.463 mls/hr IVPB TITR [facility]; Protocol Last Admin: 05/21/19 13:10 Dose: 40 mcg/kg/min, 27.705 mls/hr HEPARIN SOD,PORK IN 0.45% NACL (Heparin-1/2ns 25,000 Units/500) 25,000 units in 500 mls @ 20 mls/hr IVPB TITR [facility]; Protocol Last Admin: 05/21/19 12:31 Dose: 1,150 units/hr, 23 mls/hr Meropenem 500 mg/ Dextrose 100 mls @ 200 mls/hr IVPB Q8H-IV [facility] Last Admin: 05/21/19 10:21 Dose: 200 mls/hr Insulin Human Regular 100 (units/ Sodium Chloride) 100 mls @ 3.5 mls/hr IVPB TITR [facility]; Protocol Last Titration: 05/21/19 13:15 Dose: 4.5 units/hr, 4.5 mls/hr Metoprolol Tartrate (Lopressor Injection -) 5 mg IVPUSH Q4H PRN PRN Reason: TACHYCARDIA Last Admin: 05/17/19 18:09 Dose: 5 mg Metoprolol Tartrate (Lopressor -) 25 mg GT TID [facility] Last Admin: 05/21/19 05:42 Dose: Not Given Pantoprazole Sodium (Protonix Iv) 40 mg IVPUSH DAILY [facility] Last Admin: 05/21/19 10:31 Dose: 40 mg Polyethylene Glycol (Miralax (For Daily Use) -) 17 gm PO DAILY [facility] Last Admin: 05/21/19 10:20 Dose: 17 grams Scopolamine HBr (Transderm-Scop -) 1 patch TD Q72H [facility] Last Admin: 05/20/19 05:30 Dose: 1 patch Senna (Senna Oral Solution -) 8.8 mg PO HS [facility] Last Admin: 05/21/19 00:00 Dose: 8.8 mg Thiamine HCl (Vitamin B1 Injection -) 200 mg IVPB DAILY [facility] Last Admin: 05/21/19 10:28 Dose: 200 mg - Objective Vital Signs: Vital Signs Temperature 100.1 F H 05/21/19 10:00 Pulse Rate 104 H 05/21/19 10:30 Respiratory Rate 30 H 05/21/19 12:20 Blood Pressure 112/72 05/21/19 10:00 O2 Sat by Pulse Oximetry (%) 100 05/21/19 10:00 Constitutional: Yes: Calm Eyes: Yes: Conjunctiva Clear HENT: Yes: Atraumatic Neck: Yes: Supple Cardiovascular: Yes: S1, S2 Respiratory: Yes: Mechanically Ventilated Gastrointestinal: Yes: Soft, Abdomen, Obese Genitourinary: Yes: Andrews Present Edema: Yes Edema: LUE: Trace, RUE: Trace Neurological: Yes: Lethargy Labs: CBC, BMP 05/21/19 05:00 05/21/19 05:00 INR, PTT INR 1.09 (0.83-1.09) 05/05/19 05:30 - ....Imaging Chest X-ray: Report Reviewed Problem List - Problems (1) Acute decompensated heart failure Code(s): I50.9 - HEART FAILURE, UNSPECIFIED (2) Atrial fibrillation and flutter Code(s): I48.91 - UNSPECIFIED ATRIAL FIBRILLATION; I48.92 - UNSPECIFIED ATRIAL FLUTTER (3) Hyperkalemia Code(s): E87.5 - HYPERKALEMIA (4) Pneumonia Code(s): J18.9 - PNEUMONIA, UNSPECIFIED ORGANISM Qualifiers: Pneumonia type: due to unspecified organism (5) Sarcoidosis of other sites Code(s): D86.89 - SARCOIDOSIS OF OTHER SITES Assessment/Plan Current Medications Generic Name Dose Route Start Last Admin Trade Name Freq PRN Reason Stop Dose Admin Amino Acids 30 ml 05/18/19 17:30 05/21/19 10:21 Prosource No Carb Liquid Pkt PO 30 ml BID@0800,1730 ELISSA Administration Chlorhexidine Gluconate 1 applic 04/30/19 22:00 05/20/19 22:09 Hibiclens For Decolonization - TP 1 applic HS ELISSA Administration Digoxin 0.125 mg 05/12/19 11:45 05/21/19 10:30 Lanoxin Injection - IVPUSH 0.125 mg DAILY ELISSA Administration Diltiazem HCl 10 mg 05/10/19 05:04 05/10/19 08:30 Cardizem Injection - IVPUSH 10 mg Q4H PRN Administration TACHYCARDIA Diltiazem HCl 30 mg 05/18/19 18:30 05/21/19 13:41 Cardizem - PO 30 mg TID ELISSA Administration Docusate Sodium 200 mg 05/15/19 13:37 05/21/19 10:30 Colace Liquid - PO 200 mg DAILY PRN Administration CONSTIPATION Ferrous Sulfate 300 mg 05/09/19 10:00 05/21/19 10:32 Feosol NGT 300 mg BID ELISSA Administration Furosemide 80 mg 05/20/19 14:00 05/21/19 13:42 Lasix Injection - IVPB 80 mg BIDLASIX ELISSA Administration Propofol 1,000,000 mcg in 100 mls @ 3.463 mls/hr 05/13/19 08:30 05/21/19 13: 10 Diprivan - IVPB 40 mcg/kg/min TITR ELISSA 27.705 mls/hr Administration Protocol 5 MCG/KG/MIN HEPARIN SOD,PORK IN 0.45% NACL 25,000 units in 500 mls @ 20 mls/hr 05/14/19 15 :30 05/21/19 12:31 Heparin-1/2ns 25,000 Units/500 IVPB 1,150 units/hr TITR ELISSA 23 mls/hr Administration Protocol 1,000 UNITS/HR Meropenem 500 mg/ Dextrose 100 mls @ 200 mls/hr 05/16/19 18:00 05/21/19 10:21 IVPB 200 mls/hr Q8H-IV ELISSA Administration Insulin Human Regular 100 100 mls @ 3.5 mls/hr 05/19/19 16:30 05/21/19 13:15 units/ Sodium Chloride IVPB 4.5 units/hr TITR ELISSA 4.5 mls/hr Titration Protocol 3.5 UNITS/HR Metoprolol Tartrate 5 mg 04/30/19 08:57 05/17/19 18:09 Lopressor Injection - IVPUSH 5 mg Q4H PRN Administration TACHYCARDIA Metoprolol Tartrate 25 mg 05/16/19 14:00 05/21/19 05:42 Lopressor - GT Not Given TID ELISSA Pantoprazole Sodium 40 mg 05/14/19 10:00 05/21/19 10:31 Protonix Iv IVPUSH 40 mg DAILY ELISSA Administration Polyethylene Glycol 17 gm 05/16/19 11:45 05/21/19 10:20 Miralax (For Daily Use) - PO 17 grams DAILY ELISSA Administration Scopolamine HBr 1 patch 05/17/19 05:15 05/20/19 05:30 Transderm-Scop - TD 1 patch Q72H ELISSA Administration Senna 8.8 mg 05/20/19 22:00 05/21/19 00:00 Senna Oral Solution - PO 8.8 mg HS ELISSA Administration Thiamine HCl 200 mg 05/13/19 10:00 05/21/19 10:28 Vitamin B1 Injection - IVPB 200 mg DAILY ELISSA Administration Impression 1. RYNE 2. hyperkalemia 3. resp failure requiring intubation 4. resp acidosis 5. dm 6. hx htn 7. sleep apnea 8. obesity 9. hx non compliance 10. chf 11. sarcoid 12. volume overload 13. hypernatremia Plan - renal function is stable - vent support - cont lasix, monitor volume status - monitor lytes and bmp - discussed with ICU - sedation vacation - sodium stable
[2019-05-21] MEDS ORDERED: SODIUM CHLORIDE 1,000 ML IV STA ×3 (17:03→22:20)
[2019-05-21] MEDS: INSULIN REGULAR 100 UNITS in SODIUM CHLORIDE 99 ML IVPB SCH (19:00)
--- NOTE | 2019-05-21 19:21 | PN ---
Teaching Attending Note Name of Resident: Malachi Oliva ATTENDING PHYSICIAN STATEMENT I saw and evaluated the patient. I reviewed the resident's note and discussed the case with the resident. I agree with the resident's findings and plan as documented. SUBJECTIVE: Intubated/Ventilated/Sedated, unable to participate in medical interview. OBJECTIVE: Afebrile, Hemodynamicaly Stable. Sedated. JACKIE. Last Vital Signs Temp Pulse Resp BP Pulse Ox 99 F 74 32 H 108/63 100 05/21/19 19:00 05/21/19 19:00 05/21/19 19:00 05/21/19 19:00 05/21/19 10:00 HEENT - ETT in place. [facility]. Heart - S1 S2, RRR Lungs - Intubated. Good air entry bilaterally Abdomen - Soft. Bowel Sounds normal. Extremities - Edema. Laboratory Results - last 24 hr 05/20/19 05/21/19 05/21/19 21:40 00:03 03:09 WBC RBC Hgb Hct MCV MCH MCHC RDW Plt Count MPV Absolute Neuts (auto) Neutrophils % Lymphocytes % Monocytes % Eosinophils % Basophils % Nucleated RBC % PTT (Actin FS) Sodium Potassium Chloride Carbon Dioxide Anion Gap BUN Creatinine Est GFR (CKD-EPI)AfAm Est GFR (CKD-EPI)NonAf POC Glucometer 185 153 135 Random Glucose Calcium Phosphorus Magnesium Total Bilirubin AST ALT Alkaline Phosphatase Total Protein Albumin 05/21/19 05/21/19 05/21/19 05:00 05:00 05:00 WBC 5.8 RBC 3.94 L Hgb 9.7 L Hct 31.9 L MCV 80.9 MCH 24.7 L MCHC 30.5 L RDW 19.7 H Plt Count 136 MPV 11.5 H Absolute Neuts (auto) 5.0 Neutrophils % 86.2 H Lymphocytes % 3.5 L D Monocytes % 7.4 Eosinophils % 2.4 D Basophils % 0.5 Nucleated RBC % 0 PTT (Actin FS) 59.3 H Sodium 141 Potassium 4.0 Chloride 100 Carbon Dioxide 35 H Anion Gap 6 L BUN 70.6 H Creatinine 1.4 H Est GFR (CKD-EPI)AfAm 66.95 Est GFR (CKD-EPI)NonAf 57.76 POC Glucometer Random Glucose 148 H Calcium 8.4 L Phosphorus 4.0 Magnesium 2.3 Total Bilirubin 0.4 AST 41 H ALT 98 H Alkaline Phosphatase 90 Total Protein 5.1 L Albumin 2.3 L 05/21/19 05/21/19 05/21/19 05:21 10:11 11:08 WBC RBC Hgb Hct MCV MCH MCHC RDW Plt Count MPV Absolute Neuts (auto) Neutrophils % Lymphocytes % Monocytes % Eosinophils % Basophils % Nucleated RBC % PTT (Actin FS) Sodium Potassium Chloride Carbon Dioxide Anion Gap BUN Creatinine Est GFR (CKD-EPI)AfAm Est GFR (CKD-EPI)NonAf POC Glucometer 141 217 187 Random Glucose Calcium Phosphorus Magnesium Total Bilirubin AST ALT Alkaline Phosphatase Total Protein Albumin 05/21/19 05/21/19 05/21/19 12:11 13:21 14:25 WBC RBC Hgb Hct MCV MCH MCHC RDW Plt Count MPV Absolute Neuts (auto) Neutrophils % Lymphocytes % Monocytes % Eosinophils % Basophils % Nucleated RBC % PTT (Actin FS) Sodium Potassium Chloride Carbon Dioxide Anion Gap BUN Creatinine Est GFR (CKD-EPI)AfAm Est GFR (CKD-EPI)NonAf POC Glucometer 203 203 185 Random Glucose Calcium Phosphorus Magnesium Total Bilirubin AST ALT Alkaline Phosphatase Total Protein Albumin 05/21/19 05/21/19 05/21/19 15:14 16:19 17:22 WBC RBC Hgb Hct MCV MCH MCHC RDW Plt Count MPV Absolute Neuts (auto) Neutrophils % Lymphocytes % Monocytes % Eosinophils % Basophils % Nucleated RBC % PTT (Actin FS) Sodium Potassium Chloride Carbon Dioxide Anion Gap BUN Creatinine Est GFR (CKD-EPI)AfAm Est GFR (CKD-EPI)NonAf POC Glucometer 180 148 177 Random Glucose Calcium Phosphorus Magnesium Total Bilirubin AST ALT Alkaline Phosphatase Total Protein Albumin 05/21/19 18:25 WBC RBC Hgb Hct MCV MCH MCHC RDW Plt Count MPV Absolute Neuts (auto) Neutrophils % Lymphocytes % Monocytes % Eosinophils % Basophils % Nucleated RBC % PTT (Actin FS) Sodium Potassium Chloride Carbon Dioxide Anion Gap BUN Creatinine Est GFR (CKD-EPI)AfAm Est GFR (CKD-EPI)NonAf POC Glucometer 170 Random Glucose Calcium Phosphorus Magnesium Total Bilirubin AST ALT Alkaline Phosphatase Total Protein Albumin Current Medications Generic Name Dose Route Start Last Admin Trade Name Freq PRN Reason Stop Dose Admin Amino Acids 30 ml 05/18/19 17:30 05/21/19 16:53 Prosource No Carb Liquid Pkt PO 30 ml BID@0800,1730 ELISSA Administration Chlorhexidine Gluconate 1 applic 04/30/19 22:00 05/20/19 22:09 Hibiclens For Decolonization - TP 1 applic HS ELISSA Administration Digoxin 0.125 mg 05/12/19 11:45 05/21/19 10:30 Lanoxin Injection - IVPUSH 0.125 mg DAILY ELISSA Administration Diltiazem HCl 10 mg 05/10/19 05:04 05/10/19 08:30 Cardizem Injection - IVPUSH 10 mg Q4H PRN Administration TACHYCARDIA Diltiazem HCl 30 mg 05/18/19 18:30 05/21/19 13:41 Cardizem - PO 30 mg TID ELISSA Administration Docusate Sodium 200 mg 05/15/19 13:37 05/21/19 10:30 Colace Liquid - PO 200 mg DAILY PRN Administration CONSTIPATION Ferrous Sulfate 300 mg 05/09/19 10:00 05/21/19 10:32 Feosol NGT 300 mg BID ELISSA Administration Furosemide 80 mg 05/20/19 14:00 05/21/19 13:42 Lasix Injection - IVPB 80 mg BIDLASIX ELISSA Administration Propofol 1,000,000 mcg in 100 mls @ 3.463 mls/hr 05/13/19 08:30 05/21/19 17: 20 Diprivan - IVPB 0 mcg/kg/min TITR ELISSA 0 mls/hr Titration Protocol 5 MCG/KG/MIN HEPARIN SOD,PORK IN 0.45% NACL 25,000 units in 500 mls @ 20 mls/hr 05/14/19 15 :30 05/21/19 16:25 Heparin-1/2ns 25,000 Units/500 IVPB Not Given TITR [facility] Protocol 1,000 UNITS/HR Meropenem 500 mg/ Dextrose 100 mls @ 200 mls/hr 05/16/19 18:00 05/21/19 17:01 IVPB 200 mls/hr Q8H-IV ELISSA Administration Insulin Human Regular 100 100 mls @ 3.5 mls/hr 05/19/19 16:30 05/21/19 16:22 units/ Sodium Chloride IVPB 2.5 units/hr TITR ELISSA 2.5 mls/hr Titration Protocol 3.5 UNITS/HR Metoprolol Tartrate 5 mg 04/30/19 08:57 05/17/19 18:09 Lopressor Injection - IVPUSH 5 mg Q4H PRN Administration TACHYCARDIA Metoprolol Tartrate 25 mg 05/16/19 14:00 05/21/19 16:16 Lopressor - GT 25 mg TID ELISSA Administration Pantoprazole Sodium 40 mg 05/14/19 10:00 05/21/19 10:31 Protonix Iv IVPUSH 40 mg DAILY ELISSA Administration Polyethylene Glycol 17 gm 05/16/19 11:45 05/21/19 10:20 Miralax (For Daily Use) - PO 17 grams DAILY ELISSA Administration Scopolamine HBr 1 patch 05/17/19 05:15 05/20/19 05:30 Transderm-Scop - TD 1 patch Q72H ELISSA Administration Senna 8.8 mg 05/20/19 22:00 05/21/19 00:00 Senna Oral Solution - PO 8.8 mg HS ELISSA Administration Thiamine HCl 200 mg 05/13/19 10:00 05/21/19 10:28 Vitamin B1 Injection - IVPB 200 mg DAILY ELISSA Administration Home Medications Medication Instructions Recorded Amiodarone HCl 200 mg PO DAILY 04/30/19 Apixaban [Eliquis] 5 mg PO BID 04/30/19 Diltiazem Cd [Cardizem Cd -] 300 mg PO DAILY 04/30/19 Furosemide 40 mg PO BID 04/30/19 Glipizide 10 mg PO DAILY 04/30/19 Lisinopril 10 mg PO DAILY 04/30/19 Metformin HCl [Glucophage] 1,000 mg PO BID 04/30/19 Sitagliptin Phosphate [Januvia] 100 mg PO DAILY 04/30/19 ASSESSMENT AND PLAN: 53 year old male with Obesity, DM 2, Sarcoidosis, Hx systolic CHF (EF 45-50%, now EF normal), EMMY (non-adherent with CPAP), and Atrial Flutter presented with sudden onset of shortness of breath, requiring intubation and mechanical ventilation. 1. Acute Hypoxic and Hypercapneic Respiratory Failure secondary to Acute Diastolic CHF +/- PNA Extubated 05/09/19 and re-intubated 05/13/19 IV BID Lasix diuresis Zosyn changed to Meropenem due to ESBL positive Sputum Cx. Continue Bronchodilator Nebs. Steroids tapered off. Rest as per [employer] Plan for Trach 05/22 2. Cardiogenic Shock sec to Acute Diastolic CHF vs Septic Shock, etiology unclear - resolved, off pressors. Weaned off Levophed and Vasopressin Blood Cx - Staph epi, likely contaminant. Echo - no vegetations. Repeat Blood Cx neg x 2. On Meropenem for ESBL Pneumonia BP rebounded well - holding up on Metoprolol and Diltiazem. Cardiology following - for out-patient Cardiac MRI to asses degree of sarcoid involvement. 3. Atrial flutter with RVR - better controlled on Metoprolol, Diltiazem, Digoxin. On Heparin drip. Further recommendations as per Cardiology. 4. RYNE with Hyperkalemia - likely secondary to Cardiorenal phenomenon, resolving. Nephrology following. 5. Hypernateremia sec to dehydration/overdiuresis - resolved with IV hydration. 6. DM 2 - Continue Insulin drip. 7. Generalized weakness s/p Intubation/Extubation with progressive weakness and encephalopathy necessitating Re-Intubation ?deconditioning. CT Head negative for acute findings. ?GBS ?Critical Care Myopathy. Consultation for EMG. 8. Iron Deficiency Anemia - FeSO4 supplementation. No evidence of active blood loss. For out-patient Ix. DVT Px - Heparin SQ GI Px - PPI
--- NOTE | 2019-05-21 20:20 | PN ---
Physical Exam: SUBJECTIVE: Patient seen and examined in ICU. No acute complaints overnight. Intubated and sedated. OBJECTIVE: Vital Signs Period Temp Pulse Resp BP Sys/[place] Pulse Ox Last 24 Hr 98.3 F-100.2 F 74-115 3-38 69-112/40-72 100-100 GENERAL: The patient is intubated and sedated. RASS -5. LUNGS: Breath sounds reduced at bases, difficult to hear given body habitus HEART: irregular rate and rhythm, S1, S2 without murmur, rub or gallop. ABDOMEN: Soft, nontender, nondistended EXTREMITIES: 2+ pulses, warm, well-perfused, no edema. NEUROLOGICAL: sedated SKIN: Warm, dry, no rashes or lesions noted Laboratory Results - last 24 hr 05/20/19 05/21/19 05/21/19 21:40 00:03 03:09 WBC RBC Hgb Hct MCV MCH MCHC RDW Plt Count MPV Absolute Neuts (auto) Neutrophils % Lymphocytes % Monocytes % Eosinophils % Basophils % Nucleated RBC % PTT (Actin FS) Sodium Potassium Chloride Carbon Dioxide Anion Gap BUN Creatinine Est GFR (CKD-EPI)AfAm Est GFR (CKD-EPI)NonAf POC Glucometer 185 153 135 Random Glucose Calcium Phosphorus Magnesium Total Bilirubin AST ALT Alkaline Phosphatase Total Protein Albumin 05/21/19 05/21/19 05/21/19 05:00 05:00 05:00 WBC 5.8 RBC 3.94 L Hgb 9.7 L Hct 31.9 L MCV 80.9 MCH 24.7 L MCHC 30.5 L RDW 19.7 H Plt Count 136 MPV 11.5 H Absolute Neuts (auto) 5.0 Neutrophils % 86.2 H Lymphocytes % 3.5 L D Monocytes % 7.4 Eosinophils % 2.4 D Basophils % 0.5 Nucleated RBC % 0 PTT (Actin FS) 59.3 H Sodium 141 Potassium 4.0 Chloride 100 Carbon Dioxide 35 H Anion Gap 6 L BUN 70.6 H Creatinine 1.4 H Est GFR (CKD-EPI)AfAm 66.95 Est GFR (CKD-EPI)NonAf 57.76 POC Glucometer Random Glucose 148 H Calcium 8.4 L Phosphorus 4.0 Magnesium 2.3 Total Bilirubin 0.4 AST 41 H ALT 98 H Alkaline Phosphatase 90 Total Protein 5.1 L Albumin 2.3 L 05/21/19 05/21/1905/21/20 05:21 10:11 11:08 WBC RBC Hgb Hct MCV MCH MCHC RDW Plt Count MPV Absolute Neuts (auto) Neutrophils % Lymphocytes % Monocytes % Eosinophils % Basophils % Nucleated RBC % PTT (Actin FS) Sodium Potassium Chloride Carbon Dioxide Anion Gap BUN Creatinine Est GFR (CKD-EPI)AfAm Est GFR (CKD-EPI)NonAf POC Glucometer 141 217 187 Random Glucose Calcium Phosphorus Magnesium Total Bilirubin AST ALT Alkaline Phosphatase Total Protein Albumin 05/21/19 05/21/19 05/21/19 12:11 13:21 14:25 WBC RBC Hgb Hct MCV MCH MCHC RDW Plt Count MPV Absolute Neuts (auto) Neutrophils % Lymphocytes % Monocytes % Eosinophils % Basophils % Nucleated RBC % PTT (Actin FS) Sodium Potassium Chloride Carbon Dioxide Anion Gap BUN Creatinine Est GFR (CKD-EPI)AfAm Est GFR (CKD-EPI)NonAf POC Glucometer 203 203 185 Random Glucose Calcium Phosphorus Magnesium Total Bilirubin AST ALT Alkaline Phosphatase Total Protein Albumin 05/21/19 05/21/19 05/21/19 15:14 16:19 17:22 WBC RBC Hgb Hct MCV MCH MCHC RDW Plt Count MPV Absolute Neuts (auto) Neutrophils % Lymphocytes % Monocytes % Eosinophils % Basophils % Nucleated RBC % PTT (Actin FS) Sodium Potassium Chloride Carbon Dioxide Anion Gap BUN Creatinine Est GFR (CKD-EPI)AfAm Est GFR (CKD-EPI)NonAf POC Glucometer 180 148 177 Random Glucose Calcium Phosphorus Magnesium Total Bilirubin AST ALT Alkaline Phosphatase Total Protein Albumin 05/21/19 18:25 WBC RBC Hgb Hct MCV MCH MCHC RDW Plt Count MPV Absolute Neuts (auto) Neutrophils % Lymphocytes % Monocytes % Eosinophils % Basophils % Nucleated RBC % PTT (Actin FS) Sodium Potassium Chloride Carbon Dioxide Anion Gap BUN Creatinine Est GFR (CKD-EPI)AfAm Est GFR (CKD-EPI)NonAf POC Glucometer 170 Random Glucose Calcium Phosphorus Magnesium Total Bilirubin AST ALT Alkaline Phosphatase Total Protein Albumin Active Medications Generic Name Dose Route Start Last Admin Trade Name Freq PRN Reason Stop Dose Admin Amino Acids 30 ml 05/18/19 17:30 05/21/19 16:53 Prosource No Carb Liquid Pkt PO 30 ml BID@0800,1730 ELISSA Administration Chlorhexidine Gluconate 1 applic 04/30/19 22:00 05/20/19 22:09 Hibiclens For Decolonization - TP 1 applic HS ELISSA Administration Digoxin 0.125 mg 05/12/19 11:45 05/21/19 10:30 Lanoxin Injection - IVPUSH 0.125 mg DAILY ELISSA Administration Diltiazem HCl 10 mg 05/10/19 05:04 05/10/19 08:30 Cardizem Injection - IVPUSH 10 mg Q4H PRN Administration TACHYCARDIA Diltiazem HCl 30 mg 05/18/19 18:30 05/21/19 13:41 Cardizem - PO 30 mg TID ELISSA Administration Docusate Sodium 200 mg 05/15/19 13:37 05/21/19 10:30 Colace Liquid - PO 200 mg DAILY PRN Administration CONSTIPATION Ferrous Sulfate 300 mg 05/09/19 10:00 05/21/19 10:32 Feosol NGT 300 mg BID ELISSA Administration Furosemide 80 mg 05/20/19 14:00 05/21/19 13:42 Lasix Injection - IVPB 80 mg BIDLASIX ELISSA Administration Propofol 1,000,000 mcg in 100 mls @ 3.463 mls/hr 05/13/19 08:30 05/21/19 17: 20 Diprivan - IVPB 0 mcg/kg/min TITR ELISSA 0 mls/hr Titration Protocol 5 MCG/KG/MIN HEPARIN SOD,PORK IN 0.45% NACL 25,000 units in 500 mls @ 20 mls/hr 05/14/19 15 :30 05/21/19 16:25 Heparin-1/2ns 25,000 Units/500 IVPB Not Given TITR ELISSA Protocol 1,000 UNITS/HR Meropenem 500 mg/ Dextrose 100 mls @ 200 mls/hr 05/16/19 18:00 05/21/19 17:01 IVPB 200 mls/hr Q8H-IV ELISSA Administration Insulin Human Regular 100 100 mls @ 3.5 mls/hr 05/19/19 16:30 05/21/19 16:22 units/ Sodium Chloride IVPB 2.5 units/hr TITR ELISSA 2.5 mls/hr Titration Protocol 3.5 UNITS/HR Metoprolol Tartrate 5 mg 04/30/19 08:57 05/17/19 18:09 Lopressor Injection - IVPUSH 5 mg Q4H PRN Administration TACHYCARDIA Metoprolol Tartrate 25 mg 05/16/19 14:00 05/21/19 16:16 Lopressor - GT 25 mg TID ELISSA Administration Pantoprazole Sodium 40 mg 05/14/19 10:00 05/21/19 10:31 Protonix Iv IVPUSH 40 mg DAILY ELISSA Administration Polyethylene Glycol 17 gm 05/16/19 11:45 05/21/19 10:20 Miralax (For Daily Use) - PO 17 grams DAILY ELISSA Administration Scopolamine HBr 1 patch 05/17/19 05:15 05/20/19 05:30 Transderm-Scop - TD 1 patch Q72H ELISSA Administration Senna 8.8 mg 05/20/19 22:00 05/21/19 00:00 Senna Oral Solution - PO 8.8 mg HS ELISSA Administration Thiamine HCl 200 mg 05/13/19 10:00 05/21/19 10:28 Vitamin B1 Injection - IVPB 200 mg DAILY ELISSA Administration ASSESSMENT/PLAN: This is a 53 y/o/m with PMHx of DM2, HFpEF(last EF: 45-50%), 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 #Acute Hypoxic and Hypercapneic Respiratory Failure/ EMMY - re-intubated on 05/13 - Hans RQID - Follow serial CXRs - ID consulted (Dr. Garcia) -Sputum cx: ESBL - c/w meropenem (day 5) - vent settings 350/30/10/40 - atrovent nebulizer prn -Cont vent support and wean FiO2 as tolerated. -Pt scheduled for tracheostomy with Dr. Lawson on 05/22/19 #Altered mental status and weakness - Concern for critical care induced myopathy - Patient with poor mental status when extubated - Risk factors include glucocorticoids, paralytic use, extended intubation - Head CT - negative for acute pathology - unable to complete MRI due to non-MRI compatible vents - Neuro Consulted (Dr. Pleitez). EEG completed, will F/U results -Bedside EMG shows no evidence of myopathy, but cannot rule out myopathic process. #HFpEF vs. Cardiogenic shock - Lasix discontinued - Strict Is & Os, daily weights - ECHO - EF of 55-60%, no significant abnormalities noted, no vegetations - Cardiology Consult (Dr. Encinas) - Off pressors, BP stable - Cardio recommends cardiac PET or MRI to exclude cardiac involvement in sarcoidosis as outpatient. F/u with Dr. Genaro Davila at [place] #Atrial Flutter - Cardizem drip discontinued, switched to PO 30 TID cardizem - Digoxin 0.125mg daily - Lopressor 25mg BID ELISSA via NGtube, Lopressor 5mg IV Q4H PRN - Cardizem mg IV Q4H PRN -Continue and up-titrate oral diltiazem with plan to wean off drip and unfractionated heparin drip before starting oral regimen (Eliquis 5 mg BID) - ICU team s/w librarian helper that sees as outpatient- recommended cardioversion, but has failed in the past x2. #RYNE on CKD w/ Hyperkalemia - Monitor BUN/Cr levels, baseline Cr ~1.5 - Renal function improved, Cr now 1.4 - Nephrology Consulted (Dr. Kelley) - Likely secondary to volume overload. Pt. likely has CKD given risk factors of DM2 (uncontrolled glucose) and Heart Failure - IVF discontinued, will continue free fluid through NG tube - Hold Lisinopril, restart 10mg QD once improved renal function - K+ elevated to 5.2, switched patient to Nephro feeds - ortiz changed today - continue lasix drip #DM2 - BGM - ISS - Levemir discontinued - Insulin drip bgm q1h #FEN - IVF discontinued, continue free water fluid via NG tube - monitor and replete lytes as needed - NG tube inserted, tube feeds to goal. Feeds changed to Nepro due to elevated 5.2 #Prophylaxis - Heparin Drip - Protonix 40 daily #Disposition - Continue ICU monitoring, unable to transfer patient to [facility] at this time. Visit type - Emergency Visit Emergency Visit: Yes ED Registration Date: 04/30/19 Care time: The patient presented to the Emergency Department on the above date and was hospitalized for further evaluation of their emergent condition. - New Patient This patient is new to me today: No - Critical Care Critical Care patient: Yes Total Critical Care Time (in minutes): 35 Critical Care Statement: The care of this patient involved high complexity decision making to prevent further life threatening deterioration of the patient 's condition and/or to evaluate & treat vital organ system(s) failure or risk of failure. - Discharge Referral Referred to [facility] Med [facility].C.: No ATTENDING PHYSICIAN STATEMENT I saw and evaluated the patient. I reviewed the resident's note and discussed the case with the resident. I agree with the resident's findings and plan as documented. SUBJECTIVE: OBJECTIVE: ASSESSMENT AND PLAN:
[2019-05-21] MEDS: SENNOSIDES 8.8 MG/5 ML BULK BOTTLE PO SCH ×2 (22:26)
[2019-05-21] MEDS: CHLORHEXIDINE GLUCONATE 4% CLEANSER FOR DECOLONIZATION TP SCH (22:26)
[2019-05-21] MEDS ORDERED: INSULIN (NOVOLOG) ASPART 100 UNITS/ML 10ML VIAL ONE (22:45)
[2019-05-22] MEDS ORDERED: PROPOFOL 1,000,000 MCG/100 ML VIAL ONE ×2 (02:18→09:27)
[2019-05-22] MEDS: MEROPENEM 500 MG in DEXTROSE 5%-WATER 100 ML IVPB SCH ×3 (02:53→19:09)
[2019-05-22 06:23] LABS: HEMATOCRIT 30.2 % (35.4-49); HEMOGLOBIN 9.5 GM/dL (11.7-16.9); MCHC 31.3 g/dl (32.0-35.9); MEAN CELL VOLUME 80.1 fl (80-96); MEAN PLT VOLUME 10.7 fl (7.5-11.1); PLATELET COUNT 147 K/MM3 (134-434); RBC 3.78 M/mm3 (4.00-5.60); RDW 20.1 % (11.9-15.9); WHITE BLOOD COUNT 4.5 K/mm3 (4.0-10.0)
[2019-05-22] MEDS: FUROSEMIDE 100 MG/10 ML INJECTABLE VIAL IVPB SCH (06:25)
[2019-05-22] MEDS: dilTIAZem HCL 30 MG TABLET (FP) PO SCH ×3 (06:25→21:13)
[2019-05-22] MEDS: METOPROLOL TARTRATE 25 MG TABLET (FP) GT SCH ×3 (06:26→21:14)
[2019-05-22 06:57] LABS: ALBUMIN 2.2 g/dl (3.4-5.0); BILIRUBIN,TOTAL 0.7 mg/dL (0.2-1); BLOOD UREA NITROGEN 62.9 mg/dL (7-18); CALCIUM 7.7 mg/dL (8.5-10.1); CREATININE 1.1 mg/dL (0.55-1.3); MAGNESIUM 2.3 mg/dL (1.8-2.4); PHOSPHOROUS 2.8 mg/dL (2.5-4.9); POTASSIUM 3.6 mmol/L (3.5-5.1); TOT PROT 4.9 g/dl (6.4-8.2)
[2019-05-22] MEDS: AMINO ACIDS/PROTEIN HYDROLYS 30 ML LIQUID.PKT PO SCH ×2 (09:23→20:22)
[2019-05-22] MEDS: POLYETHYLENE GLYCOL 3350 119 GM BTL PO SCH (09:23)
[2019-05-22] MEDS ORDERED: PROPOFOL 20 ML ONE (09:27)
[2019-05-22] MEDS ORDERED: MIDAZOLAM HCL 5 MG/1 ML Single Dose Vial ONE (09:27)
[2019-05-22] MEDS ORDERED: MIDAZOLAM HCL 5 MG/1 ML Single Dose Vial IVPUSH ONE (09:30)
[2019-05-22] MEDS ORDERED: VECURONIUM BROMIDE 50 MG/50 ML VIAL IVPUSH ONE (09:30)
[2019-05-22] MEDS ORDERED: LIDOCAINE 1%-EPI 1:100,000 30 ML MDV IJ ONE (09:43)
[2019-05-22] MEDS: PROPOFOL 1,000,000 MCG/100 ML VIAL IVPB SCH (09:44)
--- NOTE | 2019-05-22 09:48 | PN ---
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, Physician History of Present Illness: s/p tracheostomy AC Mode of vent 100% FiO2 PEEP 10. Aflutter with improved rate response. - Current Medication List Current Medications: Active Medications Amino Acids (Prosource No Carb Liquid Pkt) 30 ml PO BID@0800,1730 [facility] Last Admin: 05/22/19 09:23 Dose: Not Given Chlorhexidine Gluconate (Hibiclens For Decolonization -) 1 applic TP HS [facility] Last Admin: 05/21/19 22:26 Dose: 1 applic Digoxin (Lanoxin Injection -) 0.125 mg IVPUSH DAILY [facility] Last Admin: 05/21/19 10:30 Dose: 0.125 mg Diltiazem HCl (Cardizem Injection -) 10 mg IVPUSH Q4H PRN PRN Reason: TACHYCARDIA Last Admin: 05/10/19 08:30 Dose: 10 mg Diltiazem HCl (Cardizem -) 30 mg PO TID [facility] Last Admin: 05/22/19 06:25 Dose: Not Given Docusate Sodium (Colace Liquid -) 200 mg PO DAILY PRN PRN Reason: CONSTIPATION Last Admin: 05/21/19 10:30 Dose: 200 mg Ferrous Sulfate (Feosol) 300 mg NGT BID [facility] Last Admin: 05/21/19 22:26 Dose: 300 mg Furosemide (Lasix Injection -) 80 mg IVPB BIDLASIX [facility] Last Admin: 05/22/19 06:25 Dose: Not Given Propofol (Diprivan -) 1,000,000 mcg in 100 mls @ 3.463 mls/hr IVPB TITR [facility]; Protocol Last Admin: 05/22/19 09:44 Dose: 40 mcg/kg/min, 27.705 mls/hr HEPARIN SOD,PORK IN 0.45% NACL (Heparin-1/2ns 25,000 Units/500) 25,000 units in 500 mls @ 20 mls/hr IVPB TITR [facility]; Protocol Last Titration: 05/22/19 07:46 Dose: 0 units/hr, 0 mls/hr Meropenem 500 mg/ Dextrose 100 mls @ 200 mls/hr IVPB Q8H-IV ELISSA Last Admin: 05/22/19 02:53 Dose: 200 mls/hr Insulin Human Regular 100 (units/ Sodium Chloride) 100 mls @ 3.5 mls/hr IVPB TITR [facility]; Protocol Last Admin: 05/21/19 19:00 Dose: 3 units/hr, 3 mls/hr Potassium Phosphate 30 mm/ (Sodium Chloride) 260 mls @ 43.333 mls/hr IVPB ONCE ONE Stop: 05/22/19 15:59 Metoprolol Tartrate (Lopressor Injection -) 5 mg IVPUSH Q4H PRN PRN Reason: TACHYCARDIA Last Admin: 05/17/19 18:09 Dose: 5 mg Metoprolol Tartrate (Lopressor -) 25 mg GT TID [facility] Last Admin: 05/22/19 06:26 Dose: Not Given Pantoprazole Sodium (Protonix Iv) 40 mg IVPUSH DAILY [facility] Last Admin: 05/21/19 10:31 Dose: 40 mg Polyethylene Glycol (Miralax (For Daily Use) -) 17 gm PO DAILY [facility] Last Admin: 05/22/19 09:23 Dose: Not Given Scopolamine HBr (Transderm-Scop -) 1 patch TD Q72H [facility] Last Admin: 05/20/19 05:30 Dose: 1 patch Senna (Senna Oral Solution -) 8.8 mg PO HS [facility] Last Admin: 05/21/19 22:26 Dose: 8.8 mg Thiamine HCl (Vitamin B1 Injection -) 200 mg IVPB DAILY [facility] Last Admin: 05/21/19 10:28 Dose: 200 mg - Objective Vital Signs: Vital Signs Temperature 99.1 F 05/22/19 05:00 Pulse Rate 76 05/22/19 08:06 Respiratory Rate 32 H 05/22/19 08:30 Blood Pressure 105/61 05/22/19 08:00 O2 Sat by Pulse Oximetry (%) 100 05/22/19 08:06 Constitutional: Yes: No Distress, Calm Neck: Yes: Other (Tracheostomy) Cardiovascular: Yes: Pulse Irregular Respiratory: Yes: Mechanically Ventilated Gastrointestinal: Yes: Soft, Hypoactive Bowel Sounds Edema: Yes Edema: LLE: Trace, RLE: Trace Labs: CBC, BMP 05/22/19 05:30 05/22/19 05:30 INR, PTT INR 1.09 (0.83-1.09) 05/05/19 05:30 - ....Imaging EKG: Report Reviewed (Tele: Rate-controlled aflutter) Problem List - Problems (1) Pneumonia Code(s): J18.9 - PNEUMONIA, UNSPECIFIED ORGANISM Qualifiers: Pneumonia type: due to unspecified organism (2) Acute hypercapnic respiratory failure due to obstructive sleep apnea Code(s): J96.02 - ACUTE RESPIRATORY FAILURE WITH HYPERCAPNIA; G47.33 - OBSTRUCTIVE SLEEP APNEA (ADULT) (PEDIATRIC) (3) Acute decompensated heart failure Code(s): I50.9 - HEART FAILURE, UNSPECIFIED (4) Acute renal failure Code(s): N17.9 - ACUTE KIDNEY FAILURE, UNSPECIFIED Qualifiers: Acute renal failure type: unspecified Qualified Code(s): N17.9 - Acute kidney failure, unspecified (5) Sarcoidosis of other sites Code(s): D86.89 - SARCOIDOSIS OF OTHER SITES (6) Type 2 diabetes mellitus Code(s): E11.9 - TYPE 2 DIABETES MELLITUS WITHOUT COMPLICATIONS Qualifiers: Diabetes mellitus supervisor intermediates insulin use: without senior living use Diabetes mellitus complication detail: with chronic kidney disease Chronic kidney disease stage: stage 2 (mild) (7) Atrial fibrillation and flutter Code(s): I48.91 - UNSPECIFIED ATRIAL FIBRILLATION; I48.92 - UNSPECIFIED ATRIAL FLUTTER Assessment/Plan 05/01/2019 Normal LV and RV size and fxn, tr TR 03/14/2019 Normal LV size and fxn, no thrombus ADEEL, mild-mod dilated and HK RV, tr MR, mild-mod TR, tr FL, trace pericardial effusion 1. Acute hypoxic and hypercapneic respiratory failure currently on mechanical ventilation via tracheostomy 2. Pneumonia, septic shock, Gram Positive Bacteremia and ARDS 3. Sarcoidosis confirmed by skin biopsy, r/o cardiac involvement 4. OSAS nonadherent to CPAP 5. Paroxysmal Aflutter/Afib with RVR 6. Acute on chronic diastolic heart failure 7. Acute on CKD with hyperkalemia resolving 8. Type 2 DM 9. Anemia PLAN: 1. Empiric antibiotic, bronchodilator and enteral feeds 2. Vent manage per ABG, taper fiO2 to keep SpO2 >90% 3. Rate-control with IV digoxin, uptitrate oral Lopressor and Cardizem as hemodynamics tolerate, IV Lopressor as needed and continue unfractionated Heparin drip before starting oral regiment such as Eliquis 5 mg BID 4. Lasix IV with monitor renal function and electrolytes 5. Resume lisinopril 10 mg QD once renal function and hyperkalemia stabilizes 6. Follow up with Dr. Genaro Davila (cardiology at [place]). Consider cardiac PET or MRI to exclude cardiac involvement in sarcoidosis as outpatient
[2019-05-22] MEDS ORDERED: POTASSIUM PHOSPHATE 30 MM in SODIUM CHLORIDE 250 ML IVPB ONE (10:00)
[2019-05-22] MEDS ORDERED: LIDOCAINE 1%/EPI 1:100000 (20 ML MULTI DOSE VIAL) IJ ONE (10:08)
[2019-05-22] MEDS ORDERED: MEROPENEM 500 MG VIAL (RESTRICTED TO ID) IVPB ONE ×2 (11:44→19:06)
[2019-05-22] MEDS ORDERED: DEXTROSE 5%-WATER 100 ML IVPB ONE ×2 (11:44→19:07)
--- NOTE | 2019-05-22 11:46 | PN ---
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, Physician History of Present Illness: S/P TRACHEOSTOMY AFEBRILE SPUTUM C/S enterobacter WBC WNL - Current Medication List Current Medications: Active Medications Amino Acids (Prosource No Carb Liquid Pkt) 30 ml PO BID@0800,1730 [facility] Last Admin: 05/22/19 09:23 Dose: Not Given Chlorhexidine Gluconate (Hibiclens For Decolonization -) 1 applic TP HS [facility] Last Admin: 05/21/19 22:26 Dose: 1 applic Digoxin (Lanoxin Injection -) 0.125 mg IVPUSH DAILY [facility] Last Admin: 05/21/19 10:30 Dose: 0.125 mg Diltiazem HCl (Cardizem Injection -) 10 mg IVPUSH Q4H PRN PRN Reason: TACHYCARDIA Last Admin: 05/10/19 08:30 Dose: 10 mg Diltiazem HCl (Cardizem -) 30 mg PO TID [facility] Last Admin: 05/22/19 06:25 Dose: Not Given Docusate Sodium (Colace Liquid -) 200 mg PO DAILY PRN PRN Reason: CONSTIPATION Last Admin: 05/21/19 10:30 Dose: 200 mg Ferrous Sulfate (Feosol) 300 mg NGT BID [facility] Last Admin: 05/21/19 22:26 Dose: 300 mg Furosemide (Lasix Injection -) 80 mg IVPB BIDLASIX [facility] Last Admin: 05/22/19 06:25 Dose: Not Given Propofol (Diprivan -) 1,000,000 mcg in 100 mls @ 3.463 mls/hr IVPB TITR [facility]; Protocol Last Admin: 05/22/19 09:44 Dose: 40 mcg/kg/min, 27.705 mls/hr HEPARIN SOD,PORK IN 0.45% NACL (Heparin-1/2ns 25,000 Units/500) 25,000 units in 500 mls @ 20 mls/hr IVPB TITR [facility]; Protocol Last Titration: 05/22/19 07:46 Dose: 0 units/hr, 0 mls/hr Meropenem 500 mg/ Dextrose 100 mls @ 200 mls/hr IVPB Q8H-IV ELISSA Last Admin: 05/22/19 02:53 Dose: 200 mls/hr Insulin Human Regular 100 (units/ Sodium Chloride) 100 mls @ 3.5 mls/hr IVPB TITR [facility]; Protocol Last Admin: 05/21/19 19:00 Dose: 3 units/hr, 3 mls/hr Potassium Phosphate 30 mm/ (Sodium Chloride) 260 mls @ 43.333 mls/hr IVPB ONCE ONE Stop: 05/22/19 15:59 Metoprolol Tartrate (Lopressor Injection -) 5 mg IVPUSH Q4H PRN PRN Reason: TACHYCARDIA Last Admin: 05/17/19 18:09 Dose: 5 mg Metoprolol Tartrate (Lopressor -) 25 mg GT TID [facility] Last Admin: 05/22/19 06:26 Dose: Not Given Pantoprazole Sodium (Protonix Iv) 40 mg IVPUSH DAILY [facility] Last Admin: 05/21/19 10:31 Dose: 40 mg Polyethylene Glycol (Miralax (For Daily Use) -) 17 gm PO DAILY [facility] Last Admin: 05/22/19 09:23 Dose: Not Given Scopolamine HBr (Transderm-Scop -) 1 patch TD Q72H [facility] Last Admin: 05/20/19 05:30 Dose: 1 patch Senna (Senna Oral Solution -) 8.8 mg PO HS [facility] Last Admin: 05/21/19 22:26 Dose: 8.8 mg Thiamine HCl (Vitamin B1 Injection -) 200 mg IVPB DAILY [facility] Last Admin: 05/21/19 10:28 Dose: 200 mg - Objective Vital Signs: Vital Signs Temperature 99.1 F 05/22/19 05:00 Pulse Rate 76 05/22/19 08:06 Respiratory Rate 32 H 05/22/19 08:30 Blood Pressure 105/61 05/22/19 08:00 O2 Sat by Pulse Oximetry (%) 100 05/22/19 08:06 Constitutional: Yes: Obese Cardiovascular: Yes: Regular Rate and Rhythm, S1, S2 Respiratory: Yes: Mechanically Ventilated Gastrointestinal: Yes: Normal Bowel Sounds, Soft, Abdomen, Obese. No: Tenderness Edema: Yes Labs: CBC, BMP 05/22/19 05:30 05/22/19 05:30 INR, PTT INR 1.09 (0.83-1.09) 05/05/19 05:30 Assessment/Plan RESP FAILURE S/P TRACHEOSTOMY CHF/ PNEUMONIA + SPUTUM C/S ESBL RENAL FAILURE IMPROVED CONTINUE VENTILATORY/ HEMODYNAMIC SUPPORT CONTINUE MEROPENEM
[2019-05-22] MEDS: PANTOPRAZOLE SODIUM 40 MG VIAL IVPUSH SCH (11:52)
[2019-05-22] MEDS: DIGOXIN 0.5 MG/2 ML AMPUL IVPUSH SCH (11:56)
--- NOTE | 2019-05-22 11:58 | PN ---
Teaching Attending Note Name of Resident: Huan Langston ATTENDING PHYSICIAN STATEMENT I saw and evaluated the patient. I reviewed the resident's note and discussed the case with the resident. I agree with the resident's findings and plan as documented. SUBJECTIVE: Patient seen and examined in the ICU. AC Mode of vent, 30% FiO2. Remains intubated and sedated. FOB performed prior to placement of a Perc Trach by CTS. Bronchoscope inserted via the ETT. Thick secretions were suctioned. The bronchoscope was withdrawn into the distal part of the ETT and remained in position. A Perc Trach was the successfully placed by CTS. No complications noted. Intake & Output 05/19/19 05/20/19 05/21/19 05/22/19 23:59 23:59 23:59 23:59 Intake Total 3116.5 4479 4407 2597 Output Total 2975 2400 900 911 Balance 141.5 2079 3507 1686 Weight 264 lb 264 lb 256 lb 6.4 oz 266 lb 12.8 oz Last Vital Signs Temp Pulse Resp BP Pulse Ox 99.0 F 76 30 H 107/70 100 05/22/19 10:00 05/22/19 10:00 05/22/19 10:00 05/22/19 10:00 05/22/19 08:06 Active Medications Amino Acids (Prosource No Carb Liquid Pkt) 30 ml PO BID@0800,1730 [facility] Last Admin: 05/22/19 09:23 Dose: Not Given Chlorhexidine Gluconate (Hibiclens For Decolonization -) 1 applic TP HS [facility] Last Admin: 05/21/19 22:26 Dose: 1 applic Digoxin (Lanoxin Injection -) 0.125 mg IVPUSH DAILY [facility] Last Admin: 05/21/19 10:30 Dose: 0.125 mg Diltiazem HCl (Cardizem Injection -) 10 mg IVPUSH Q4H PRN PRN Reason: TACHYCARDIA Last Admin: 05/10/19 08:30 Dose: 10 mg Diltiazem HCl (Cardizem -) 30 mg PO TID [facility] Last Admin: 05/22/19 06:25 Dose: Not Given Docusate Sodium (Colace Liquid -) 200 mg PO DAILY PRN PRN Reason: CONSTIPATION Last Admin: 05/21/19 10:30 Dose: 200 mg Ferrous Sulfate (Feosol) 300 mg NGT BID [facility] Last Admin: 05/21/19 22:26 Dose: 300 mg Furosemide (Lasix Injection -) 80 mg IVPB BIDLASIX [facility] Last Admin: 05/22/19 06:25 Dose: Not Given Propofol (Diprivan -) 1,000,000 mcg in 100 mls @ 3.463 mls/hr IVPB TITR [facility]; Protocol Last Admin: 05/22/19 09:44 Dose: 40 mcg/kg/min, 27.705 mls/hr HEPARIN SOD,PORK IN 0.45% NACL (Heparin-1/2ns 25,000 Units/500) 25,000 units in 500 mls @ 20 mls/hr IVPB TITR [facility]; Protocol Last Titration: 05/22/19 07:46 Dose: 0 units/hr, 0 mls/hr Meropenem 500 mg/ Dextrose 100 mls @ 200 mls/hr IVPB Q8H-IV [facility] Last Admin: 05/22/19 02:53 Dose: 200 mls/hr Insulin Human Regular 100 (units/ Sodium Chloride) 100 mls @ 3.5 mls/hr IVPB TITR [facility]; Protocol Last Admin: 05/21/19 19:00 Dose: 3 units/hr, 3 mls/hr Potassium Phosphate 30 mm/ (Sodium Chloride) 260 mls @ 43.333 mls/hr IVPB ONCE ONE Stop: 05/22/19 15:59 Metoprolol Tartrate (Lopressor Injection -) 5 mg IVPUSH Q4H PRN PRN Reason: TACHYCARDIA Last Admin: 05/17/19 18:09 Dose: 5 mg Metoprolol Tartrate (Lopressor -) 25 mg GT TID [facility] Last Admin: 05/22/19 06:26 Dose: Not Given Pantoprazole Sodium (Protonix Iv) 40 mg IVPUSH DAILY [facility] Last Admin: 05/21/19 10:31 Dose: 40 mg Polyethylene Glycol (Miralax (For Daily Use) -) 17 gm PO DAILY [facility] Last Admin: 05/22/19 09:23 Dose: Not Given Scopolamine HBr (Transderm-Scop -) 1 patch TD Q72H [facility] Last Admin: 05/20/19 05:30 Dose: 1 patch Senna (Senna Oral Solution -) 8.8 mg PO HS [facility] Last Admin: 05/21/19 22:26 Dose: 8.8 mg Thiamine HCl (Vitamin B1 Injection -) 200 mg IVPB DAILY [facility] Last Admin: 05/21/19 10:28 Dose: 200 mg GEN: Intubated and sedated. 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 Laboratory Results - last 24 hr 05/21/19 05/21/19 05/21/19 12:11 13:21 14:25 WBC RBC Hgb Hct MCV MCH MCHC RDW Plt Count MPV PTT (Actin FS) Sodium Potassium Chloride Carbon Dioxide Anion Gap BUN Creatinine Est GFR (CKD-EPI)AfAm Est GFR (CKD-EPI)NonAf POC Glucometer 203 203 185 Random Glucose Calcium Phosphorus Magnesium Total Bilirubin AST ALT Alkaline Phosphatase Total Protein Albumin 05/21/19 05/21/19 05/21/19 15:14 16:19 17:22 WBC RBC Hgb Hct MCV MCH MCHC RDW Plt Count MPV PTT (Actin FS) Sodium Potassium Chloride Carbon Dioxide Anion Gap BUN Creatinine Est GFR (CKD-EPI)AfAm Est GFR (CKD-EPI)NonAf POC Glucometer 180 148 177 Random Glucose Calcium Phosphorus Magnesium Total Bilirubin AST ALT Alkaline Phosphatase Total Protein Albumin 05/21/19 05/21/19 05/21/19 18:25 19:49 20:48 WBC RBC Hgb Hct MCV MCH MCHC RDW Plt Count MPV PTT (Actin FS) Sodium Potassium Chloride Carbon Dioxide Anion Gap BUN Creatinine Est GFR (CKD-EPI)AfAm Est GFR (CKD-EPI)NonAf POC Glucometer 170 187 187 Random Glucose Calcium Phosphorus Magnesium Total Bilirubin AST ALT Alkaline Phosphatase Total Protein Albumin 05/21/19 05/21/19 05/22/19 22:08 23:20 01:22 WBC RBC Hgb Hct MCV MCH MCHC RDW Plt Count MPV PTT (Actin FS) Sodium Potassium Chloride Carbon Dioxide Anion Gap BUN Creatinine Est GFR (CKD-EPI)AfAm Est GFR (CKD-EPI)NonAf POC Glucometer 156 181 137 Random Glucose Calcium Phosphorus Magnesium Total Bilirubin AST ALT Alkaline Phosphatase Total Protein Albumin 05/22/19 05/22/19 05/22/19 02:11 02:49 03:52 WBC RBC Hgb Hct MCV MCH MCHC RDW Plt Count MPV PTT (Actin FS) Sodium Potassium Chloride Carbon Dioxide Anion Gap BUN Creatinine Est GFR (CKD-EPI)AfAm Est GFR (CKD-EPI)NonAf POC Glucometer 109 115 135 Random Glucose Calcium Phosphorus Magnesium Total Bilirubin AST ALT Alkaline Phosphatase Total Protein Albumin 05/22/19 05/22/19 05/22/19 05:30 05:30 05:30 WBC 4.5 RBC 3.78 L Hgb 9.5 L Hct 30.2 L MCV 80.1 MCH 25.0 L MCHC 31.3 L RDW 20.1 H Plt Count 147 MPV 10.7 PTT (Actin FS) 67.4 H Sodium 141 Potassium 3.6 Chloride 102 Carbon Dioxide 33 H Anion Gap 6 L BUN 62.9 H Creatinine 1.1 Est GFR (CKD-EPI)AfAm 89.61 Est GFR (CKD-EPI)NonAf 77.32 POC Glucometer Random Glucose 145 H Calcium 7.7 L Phosphorus 2.8 Magnesium 2.3 Total Bilirubin 0.7 AST 39 H ALT 76 H Alkaline Phosphatase 83 Total Protein 4.9 L Albumin 2.2 L 05/22/19 05/22/19 06:34 09:08 WBC RBC Hgb Hct MCV MCH MCHC RDW Plt Count MPV PTT (Actin FS) Sodium Potassium Chloride Carbon Dioxide Anion Gap BUN Creatinine Est GFR (CKD-EPI)AfAm Est GFR (CKD-EPI)NonAf POC Glucometer 149 137 Random Glucose Calcium Phosphorus Magnesium Total Bilirubin AST ALT Alkaline Phosphatase Total Protein Albumin ASSESS: Acute Hypoxic and Hypercapneic Respiratory Failure Pneumonia Gram Positive Bacteremia Septic Shock Volume Overload ARDS Lactic Acidosis Hyperkalemia Acute Kidney Injury Atrial Flutter with RVR HTN DM Anemia PLAN: - Cont Vent Support - Wean FiO2 as tolerated - Nebs - DC Lasix - ABX - Rate Control - AC: restart IV Heparin in 2 hours - Strict I's & O's - Replete e-lytes prn - FSS - TFs - DVT/GI prophylaxis - Trach - GI ppx - continue ICU monitoring Dr Maya Critical care time spent in reviewing chart, evaluating patient and formulating plan - 36 minutes.
[2019-05-22] MEDS: THIAMINE HCL 200 MG/2 ML VIAL IVPB SCH (12:00)
[2019-05-22] MEDS: FERROUS SO4 300 MG/5 ML ORAL SOLN UNIT DOSE CUPS NGT SCH ×2 (12:02→21:13)
--- NOTE | 2019-05-22 13:07 | OPR ---
Patient Name: Jose Madrigal MR#: [id number] Procedure Date: 05/22/2019 Preoperative Diagnosis: Respiratory failure; DM; Atrial flutter; EMMY. Postoperative Diagnosis: same. Procedure: 1. Bronchoscopy (performed by Dr. Maya); 2. Tracheostomy percutaneously placed (Shiley #[id number]). Indication: Respiratory failure; Surgeon(s): Pro Lawson MD Cosurgeon: Dr. Maya. Flash Drier Operator Surgeon: wanda. Anesthesia: General endotracheal; Findings: Abundant thick secretions; Specimens Sent: 1. na; Complications: none Drains / Tubes / Catheters: na Hardware / Implants: na Blood / Fluid Losses: minimal Post-Operative Condition: Stable. Indications: This patient is a 53 year-old male with respiratory failure referred for tracheostomy by Dr. Maya and the ICU team. Consent was obtained from the family by the ICU team. Details of Procedure: The procedure was done at the bedside. We began with bronchoscopy to clear the airway for the procedure. This was done by Dr. Maya. After this, the neck was prepared and draped in standard fashion. We then made a transverse incision below the cricoid cartilage. We withdrew the endotracheal airway until we were close to the vocal cords. With the incision in place, we inserted the needle from the percutaneous bronchoscopy kit under direct bronchoscopic vision identifying approximately the 2nd to 3rd ring. We then passed a wire under vision. We then dilated up and inserted the tracheostomy. We put the cuff up and connected the ventilator. We placed the bronchoscope through the tracheostomy and then above. There was no active bleeding and the placement was good.
[2019-05-22] MEDS ORDERED: PT OWN MED DRAWER 7, Y5N ONE ×2 (13:30→16:28)
--- NOTE | 2019-05-22 14:02 | PN ---
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, Physician History of Present Illness: Pt seen and examined at bedside. He remains in the ICU. He had a trache placed. - Current Medication List Current Medications: Active Medications Amino Acids (Prosource No Carb Liquid Pkt) 30 ml PO BID@0800,1730 [facility] Last Admin: 05/22/19 09:23 Dose: Not Given Chlorhexidine Gluconate (Hibiclens For Decolonization -) 1 applic TP HS [facility] Last Admin: 05/21/19 22:26 Dose: 1 applic Digoxin (Lanoxin Injection -) 0.125 mg IVPUSH DAILY [facility] Last Admin: 05/22/19 11:56 Dose: 0.125 mg Diltiazem HCl (Cardizem Injection -) 10 mg IVPUSH Q4H PRN PRN Reason: TACHYCARDIA Last Admin: 05/10/19 08:30 Dose: 10 mg Diltiazem HCl (Cardizem -) 30 mg PO TID [facility] Last Admin: 05/22/19 06:25 Dose: Not Given Docusate Sodium (Colace Liquid -) 200 mg PO DAILY PRN PRN Reason: CONSTIPATION Last Admin: 05/21/19 10:30 Dose: 200 mg Ferrous Sulfate (Feosol) 300 mg NGT BID [facility] Last Admin: 05/22/19 12:02 Dose: Not Given Furosemide (Lasix Injection -) 80 mg IVPB BIDLASIX [facility] Last Admin: 05/22/19 06:25 Dose: Not Given Propofol (Diprivan -) 1,000,000 mcg in 100 mls @ 3.463 mls/hr IVPB TITR [facility]; Protocol Last Admin: 05/22/19 09:44 Dose: 40 mcg/kg/min, 27.705 mls/hr HEPARIN SOD,PORK IN 0.45% NACL (Heparin-1/2ns 25,000 Units/500) 25,000 units in 500 mls @ 20 mls/hr IVPB TITR [facility]; Protocol Last Titration: 05/22/19 13:00 Dose: 1,150 units/hr, 23 mls/hr Meropenem 500 mg/ Dextrose 100 mls @ 200 mls/hr IVPB Q8H-IV [facility] Last Admin: 05/22/19 11:47 Dose: 200 mls/hr Insulin Human Regular 100 (units/ Sodium Chloride) 100 mls @ 3.5 mls/hr IVPB TITR [facility]; Protocol Last Admin: 05/21/19 19:00 Dose: 3 units/hr, 3 mls/hr Potassium Phosphate 30 mm/ (Sodium Chloride) 260 mls @ 43.333 mls/hr IVPB ONCE ONE Stop: 05/22/19 15:59 Last Admin: 05/22/19 11:48 Dose: 43.333 mls/hr Metoprolol Tartrate (Lopressor Injection -) 5 mg IVPUSH Q4H PRN PRN Reason: TACHYCARDIA Last Admin: 05/17/19 18:09 Dose: 5 mg Metoprolol Tartrate (Lopressor -) 25 mg GT TID [facility] Last Admin: 05/22/19 06:26 Dose: Not Given Pantoprazole Sodium (Protonix Iv) 40 mg IVPUSH DAILY [facility] Last Admin: 05/22/19 11:52 Dose: 40 mg Polyethylene Glycol (Miralax (For Daily Use) -) 17 gm PO DAILY [facility] Last Admin: 05/22/19 09:23 Dose: Not Given Scopolamine HBr (Transderm-Scop -) 1 patch TD Q72H [facility] Last Admin: 05/20/19 05:30 Dose: 1 patch Senna (Senna Oral Solution -) 8.8 mg PO HS [facility] Last Admin: 05/21/19 22:26 Dose: 8.8 mg Thiamine HCl (Vitamin B1 Injection -) 200 mg IVPB DAILY [facility] Last Admin: 05/22/19 12:00 Dose: 200 mg - Objective Vital Signs: Vital Signs Temperature 99.0 F 05/22/19 10:00 Pulse Rate 98 H 05/22/19 11:56 Respiratory Rate 30 H 05/22/19 12:05 Blood Pressure 107/70 05/22/19 10:00 O2 Sat by Pulse Oximetry (%) 100 05/22/19 08:06 Constitutional: Yes: Calm Eyes: Yes: Conjunctiva Clear Neck: Yes: Other (trache) Cardiovascular: Yes: S1, S2 Respiratory: Yes: Mechanically Ventilated Gastrointestinal: Yes: Soft, Abdomen, Obese Musculoskeletal: Yes: Muscle Weakness Edema: LLE: Trace, RLE: Trace Neurological: Yes: Lethargy Labs: CBC, BMP 05/22/19 05:30 05/22/19 05:30 INR, PTT INR 1.09 (0.83-1.09) 05/05/19 05:30 Problem List - Problems (1) Acute decompensated heart failure Code(s): I50.9 - HEART FAILURE, UNSPECIFIED (2) Atrial fibrillation and flutter Code(s): I48.91 - UNSPECIFIED ATRIAL FIBRILLATION; I48.92 - UNSPECIFIED ATRIAL FLUTTER (3) Hyperkalemia Code(s): E87.5 - HYPERKALEMIA (4) Pneumonia Code(s): J18.9 - PNEUMONIA, UNSPECIFIED ORGANISM Qualifiers: Pneumonia type: due to unspecified organism (5) Sarcoidosis of other sites Code(s): D86.89 - SARCOIDOSIS OF OTHER SITES Assessment/Plan Current Medications Generic Name Dose Route Start Last Admin Trade Name Freq PRN Reason Stop Dose Admin Amino Acids 30 ml 05/18/19 17:30 05/22/19 09:23 Prosource No Carb Liquid Pkt PO Not Given BID@0800,1730 [facility] Chlorhexidine Gluconate 1 applic 04/30/19 22:00 05/21/19 22:26 Hibiclens For Decolonization - TP 1 applic HS [facility] Administration Digoxin 0.125 mg 05/12/19 11:45 05/22/19 11:56 Lanoxin Injection - IVPUSH 0.125 mg DAILY [facility]SA Administration Diltiazem HCl 10 mg 05/10/19 05:04 05/10/19 08:30 Cardizem Injection - IVPUSH 10 mg Q4H PRN Administration TACHYCARDIA Diltiazem HCl 30 mg 05/18/19 18:30 05/22/19 06:25 Cardizem - PO Not Given TID [facility]ISSA Docusate Sodium 200 mg 05/15/19 13:37 05/21/19 10:30 Colace Liquid - PO 200 mg DAILY PRN Administration CONSTIPATION Ferrous Sulfate 300 mg 05/09/19 10:00 05/22/19 12:02 Feosol NGT Not Given BID ELISSA Furosemide 80 mg 05/20/19 14:00 05/22/19 06:25 Lasix Injection - IVPB Not Given BIDLASIX ELISSA Propofol 1,000,000 mcg in 100 mls @ 3.463 mls/hr 05/13/19 08:30 05/22/19 09: 44 Diprivan - IVPB 40 mcg/kg/min TITR [facility]SA 27.705 mls/hr Administration Protocol 5 MCG/KG/MIN HEPARIN SOD,PORK IN 0.45% NACL 25,000 units in 500 mls @ 20 mls/hr 05/14/19 15 :30 05/22/19 13:00 Heparin-1/2ns 25,000 Units/500 IVPB 1,150 units/hr TITR [facility] 23 mls/hr Titration Protocol 1,000 UNITS/HR Meropenem 500 mg/ Dextrose 100 mls @ 200 mls/hr 05/16/19 18:00 05/22/19 11:47 IVPB 200 mls/hr Q8H-IV [facility]SA Administration Insulin Human Regular 100 100 mls @ 3.5 mls/hr 05/19/19 16:30 05/21/19 19:00 units/ Sodium Chloride IVPB 3 units/hr TITR ELISSA 3 mls/hr Administration Protocol 3.5 UNITS/HR Potassium Phosphate 30 mm/ 260 mls @ 43.333 mls/hr 05/22/19 10:00 05/22/19 11 :48 Sodium Chloride IVPB 05/22/19 15:59 43.333 mls/hr ONCE ONE Administration Metoprolol Tartrate 5 mg 04/30/19 08:57 05/17/19 18:09 Lopressor Injection - IVPUSH 5 mg Q4H PRN Administration TACHYCARDIA Metoprolol Tartrate 25 mg 05/16/19 14:00 05/22/19 06:26 Lopressor - GT Not Given TID ELISSA Pantoprazole Sodium 40 mg 05/14/19 10:00 05/22/19 11:52 Protonix Iv IVPUSH 40 mg DAILY [facility]SA Administration Polyethylene Glycol 17 gm 05/16/19 11:45 05/22/19 09:23 Miralax (For Daily Use) - PO Not Given DAILY [facility] Scopolamine HBr 1 patch 05/17/19 05:15 05/20/19 05:30 Transderm-Scop - TD 1 patch Q72H [facility] Administration Senna 8.8 mg 05/20/19 22:00 05/21/19 22:26 Senna Oral Solution - PO 8.8 mg HS [facility]SA Administration Thiamine HCl 200 mg 05/13/19 10:00 05/22/19 12:00 Vitamin B1 Injection - IVPB 200 mg DAILY [facility] Administration Impression 1. RYNE 2. hyperkalemia 3. resp failure requiring intubation 4. resp acidosis 5. dm 6. hx htn 7. sleep apnea 8. obesity 9. hx non compliance 10. chf 11. sarcoid 12. volume overload 13. hypernatremia Plan - cont lasix - monitor renal function - repeat labs in am - vent support - monitor volume status - monitor lytes and bmp - discussed with ICU - sodium stable
--- NOTE | 2019-05-22 15:13 | EKG ---
Test Reason : Blood Pressure : / mmHG Vent. Rate : 077 BPM Atrial Rate : 308 BPM P-R Int : 000 ms QRS Dur : 100 ms QT Int : 382 ms P-R-T Axes : 244 -20 026 degrees QTc Int : 432 ms ATRIAL FLUTTER WITH 4:1 A-V CONDUCTION ABNORMAL ECG WHEN COMPARED WITH ECG OF 30-APR-2019 11:32, ATRIAL FLUTTER HAS REPLACED ATRIAL FIBRILLATION INCOMPLETE RIGHT BUNDLE BRANCH BLOCK IS NO LONGER PRESENT T WAVE INVERSION NOW EVIDENT IN INFERIOR LEADS Confirmed by NORA HOLCOMB MD ([id number]) on 05/22/2019 3:13:27 PM Referred By: Confirmed By:NORA HOLCOMB MD
--- NOTE | 2019-05-22 15:55 | PN ---
Physical Exam: SUBJECTIVE: Patient seen and examined O/N: s/p NS x2L, heparin gtt held at 0700 for bedside tracheostomy OBJECTIVE: Vital Signs Period Temp Pulse Resp BP Sys/[place] Pulse Ox Last 24 Hr 98.3 F-99.3 F 33-107 22-100 69-118/40-70 100-100 GENERAL: The patient is sedated and intubated. Minimally responsive to sternal rub. HEAD: Normal with no signs of trauma. Endotracheal tube in place. ENT: Ears normal, nares patent, oropharynx clear without exudates, moist mucous membranes. LUNGS: Mechanical ventilation. Scattered ronchi. No wheezes or crackles. Tracheostomy in place HEART: Regular rate and rhythm, S1, S2 without murmur, rub or gallop. ABDOMEN: Soft, nontender, nondistended, normoactive bowel sounds, no guarding, no rebound, no hepatosplenomegaly, no masses. EXTREMITIES: 2+ pulses,warm, well-perfused, nonpitting edema to BUE and BLE. NEUROLOGICAL: Unable to assess. SKIN: Warm, dry, normal turgor, no rashes or lesions noted Laboratory Results - last 24 hr 05/21/19 05/21/19 05/21/19 16:19 17:22 18:25 WBC RBC Hgb Hct MCV MCH MCHC RDW Plt Count MPV PTT (Actin FS) Sodium Potassium Chloride Carbon Dioxide Anion Gap BUN Creatinine Est GFR (CKD-EPI)AfAm Est GFR (CKD-EPI)NonAf POC Glucometer 148 177 170 Random Glucose Calcium Phosphorus Magnesium Total Bilirubin AST ALT Alkaline Phosphatase Total Protein Albumin 05/21/19 05/21/19 05/21/19 19:49 20:48 22:08 WBC RBC Hgb Hct MCV MCH MCHC RDW Plt Count MPV PTT (Actin FS) Sodium Potassium Chloride Carbon Dioxide Anion Gap BUN Creatinine Est GFR (CKD-EPI)AfAm Est GFR (CKD-EPI)NonAf POC Glucometer 187 187 156 Random Glucose Calcium Phosphorus Magnesium Total Bilirubin AST ALT Alkaline Phosphatase Total Protein Albumin 05/21/19 05/22/19 05/22/19 23:20 01:22 02:11 WBC RBC Hgb Hct MCV MCH MCHC RDW Plt Count MPV PTT (Actin FS) Sodium Potassium Chloride Carbon Dioxide Anion Gap BUN Creatinine Est GFR (CKD-EPI)AfAm Est GFR (CKD-EPI)NonAf POC Glucometer 181 137 109 Random Glucose Calcium Phosphorus Magnesium Total Bilirubin AST ALT Alkaline Phosphatase Total Protein Albumin 05/22/19 05/22/19 05/22/19 02:49 03:52 05:30 WBC RBC Hgb Hct MCV MCH MCHC RDW Plt Count MPV PTT (Actin FS) 67.4 H Sodium Potassium Chloride Carbon Dioxide Anion Gap BUN Creatinine Est GFR (CKD-EPI)AfAm Est GFR (CKD-EPI)NonAf POC Glucometer 115 135 Random Glucose Calcium Phosphorus Magnesium Total Bilirubin AST ALT Alkaline Phosphatase Total Protein Albumin 05/22/19 05/22/19 05/22/19 05:30 05:30 06:34 WBC 4.5 RBC 3.78 L Hgb 9.5 L Hct 30.2 L MCV 80.1 MCH 25.0 L MCHC 31.3 L RDW 20.1 H Plt Count 147 MPV 10.7 PTT (Actin FS) Sodium 141 Potassium 3.6 Chloride 102 Carbon Dioxide 33 H Anion Gap 6 L BUN 62.9 H Creatinine 1.1 Est GFR (CKD-EPI)AfAm 89.61 Est GFR (CKD-EPI)NonAf 77.32 POC Glucometer 149 Random Glucose 145 H Calcium 7.7 L Phosphorus 2.8 Magnesium 2.3 Total Bilirubin 0.7 AST 39 H ALT 76 H Alkaline Phosphatase 83 Total Protein 4.9 L Albumin 2.2 L 05/22/19 05/22/19 09:08 13:38 WBC RBC Hgb Hct MCV MCH MCHC RDW Plt Count MPV PTT (Actin FS) Sodium Potassium Chloride Carbon Dioxide Anion Gap BUN Creatinine Est GFR (CKD-EPI)AfAm Est GFR (CKD-EPI)NonAf POC Glucometer 137 186 Random Glucose Calcium Phosphorus Magnesium Total Bilirubin AST ALT Alkaline Phosphatase Total Protein Albumin Active Medications Generic Name Dose Route Start Last Admin Trade Name Freq PRN Reason Stop Dose Admin Amino Acids 30 ml 05/18/19 17:30 05/22/19 09:23 Prosource No Carb Liquid Pkt PO Not Given BID@0800,1730 ELISSA Chlorhexidine Gluconate 1 applic 04/30/19 22:00 05/21/19 22:26 Hibiclens For Decolonization - TP 1 applic HS ELISSA Administration Digoxin 0.125 mg 05/12/19 11:45 05/22/19 11:56 Lanoxin Injection - IVPUSH 0.125 mg DAILY ELISSA Administration Diltiazem HCl 10 mg 05/10/19 05:04 05/10/19 08:30 Cardizem Injection - IVPUSH 10 mg Q4H PRN Administration TACHYCARDIA Diltiazem HCl 30 mg 05/18/19 18:30 05/22/19 06:25 Cardizem - PO Not Given TID ELISSA Docusate Sodium 200 mg 05/15/19 13:37 05/21/19 10:30 Colace Liquid - PO 200 mg DAILY PRN Administration CONSTIPATION Ferrous Sulfate 300 mg 05/09/19 10:00 05/22/19 12:02 Feosol NGT Not Given BID ELISSA Propofol 1,000,000 mcg in 100 mls @ 3.463 mls/hr 05/13/19 08:30 05/22/19 09: 44 Diprivan - IVPB 40 mcg/kg/min TITR ELISSA 27.705 mls/hr Administration Protocol 5 MCG/KG/MIN HEPARIN SOD,PORK IN 0.45% NACL 25,000 units in 500 mls @ 20 mls/hr 05/14/19 15 :30 05/22/19 13:00 Heparin-1/2ns 25,000 Units/500 IVPB 1,150 units/hr TITR ELISSA 23 mls/hr Titration Protocol 1,000 UNITS/HR Meropenem 500 mg/ Dextrose 100 mls @ 200 mls/hr 05/16/19 18:00 05/22/19 11:47 IVPB 200 mls/hr Q8H-IV ELISSA Administration Potassium Phosphate 30 mm/ 260 mls @ 43.333 mls/hr 05/22/19 10:00 05/22/19 11 :48 Sodium Chloride IVPB 05/22/19 15:59 43.333 mls/hr ONCE ONE Administration Insulin Aspart 1 vial 05/22/19 16:00 Novolog Vial Sliding Scale - SQ Q4H [facility] Protocol Insulin Detemir 10 units 05/22/19 22:00 Levemir Vial SQ HS [facility] Metoprolol Tartrate 5 mg 04/30/19 08:57 05/17/19 18:09 Lopressor Injection - IVPUSH 5 mg Q4H PRN Administration TACHYCARDIA Metoprolol Tartrate 25 mg 05/16/19 14:00 05/22/19 06:26 Lopressor - GT Not Given TID [facility] Pantoprazole Sodium 40 mg 05/14/19 10:00 05/22/19 11:52 Protonix Iv IVPUSH 40 mg DAILY ELISSA Administration Polyethylene Glycol 17 gm 05/16/19 11:45 05/22/19 09:23 Miralax (For Daily Use) - PO Not Given DAILY ELISSA Scopolamine HBr 1 patch 05/17/19 05:15 05/20/19 05:30 Transderm-Scop - TD 1 patch Q72H ELISSA Administration Senna 8.8 mg 05/20/19 22:00 05/21/19 22:26 Senna Oral Solution - PO 8.8 mg HS ELISSA Administration Thiamine HCl 200 mg 05/13/19 10:00 05/22/19 12:00 Vitamin B1 Injection - IVPB 200 mg DAILY ELISSA Administration ASSESSMENT/PLAN: 53 year old male with PMH of TIIDM, HFpEF (last EF 45-50%), EMMY (non-adherent to CPAP) and atrial flutter, with acute hypoxic hypercapneic respiratory failure , found to have ARDS. Patient was extubated, and required reintubation due to mental status. Sp bedside tracheostomy(Lulu/Zulma, 05/22/19) Neuro: -Sedated on Propofol -CT head (05/13/19): no acute hemorrhage or infarcts -Daily sedation vacation to assess mental status -Bedside EEG(05/16/19): abn EEG, nonspecific finding of diffuse encephalopathy -Bedside EMG shows no evidence of myopathy, but cannot rule out myopathic process. Cardiovascular: -Central line changed 05/20/19 -PMH of aflutter, HFpEF -Hx of paroxysmal Aflutter/Afib with RVR -Weaned off levophed for MAP >65 -Cardizem drip d/c'ed; now on oral cardizem 30mg po TID -Continue IV and oral lopressor, IV digoxin, and heparin drip before starting oral regiment (such as Eliquis 5 mg BID) -Cardiology following (Dr. Encinas, Dr. King), appreciate recommendations -Spoke with outpatient mint machine operator Dr. Genaro Davila - recommends cardioversions, but has failed in the past x2. Pulmonary: -Acute hypoxic and hypercapneic respiratory failure, presenting with ARDS -Intubated, but now sp tracheostomy --vent settings 350/30/10/40 -Cont vent support and taper FiO2 -Atrovent nebulizer PRN Renal: -Andrews catheter changed 05/19/19 -Nephro following (Dr. Kelley) -Lasix gtt d/c'ed, lasix 80mg BID dc'd -D/C fluids -Creatinine stable @ 1.1, cont to monitor -Free water replacement via NG tube- 250 cc Water Q6H -Resume lisinopril 10mg QD once renal function improves and stable BP GI: -Protonix 40 mg IV daily -Promote tube feeds -consider enema for constipation ID: -Sputum cx: ESBL -Cont IV meropenem (Day 7) -ID following (Dr. Lang) Endo: -BGM better controlled (180s) -insulin gtt converted to ISS(aggressive) and Levemir 10U QHS F: No standing IVF E: Trend K N: Nepro Tube Feeds DVT: Heparin drip GI: Protonix Central line changed on 05/19/19. Dispo: - Continue ICU level of care, family requests transfer to [place]. Visit type - Emergency Visit Emergency Visit: No - New Patient This patient is new to me today: No - Critical Care Critical Care patient: Yes Total Critical Care Time (in minutes): 35 Critical Care Statement: The care of this patient involved high complexity decision making to prevent further life threatening deterioration of the patient 's condition and/or to evaluate & treat vital organ system(s) failure or risk of failure. ATTENDING PHYSICIAN STATEMENT I saw and evaluated the patient. I reviewed the resident's note and discussed the case with the resident. I agree with the resident's findings and plan as documented. SUBJECTIVE: OBJECTIVE: ASSESSMENT AND PLAN:
[2019-05-22] MEDS ORDERED: INSULIN SLIDING SCALE (NOVOLOG) 1 VIAL SQ SCH (16:00)
[2019-05-22] MEDS: HEPARIN SOD,PORK IN 0.45% NACL 25,000 UNITS/500 ML INFUS.BAG IVPB SCH (16:40)
[2019-05-22] MEDS ORDERED: INSULIN (NOVOLOG) ASPART 100 UNITS/ML 10ML VIAL ONE (16:51)
[2019-05-22] MEDS ORDERED: INSULIN (LEVEMIR) 100 UNITS/ML UNITS SQ ONE (16:55)
--- NOTE | 2019-05-22 19:23 | PN ---
Teaching Attending Note Name of Resident: Magnus Lloyd ATTENDING PHYSICIAN STATEMENT I saw and evaluated the patient. I reviewed the resident's note and discussed the case with the resident. I agree with the resident's findings and plan as documented. SUBJECTIVE: Intubated/Ventilated/Sedated, unable to participate in medical interview. s/p Trach OBJECTIVE: Temp overnight 100.2, now afebrile. Hemodynamicaly Stable. Sedated. JACKIE. Last Vital Signs Temp Pulse Resp BP Pulse Ox 99 F 98 H 30 H 126/64 100 05/22/19 18:00 05/22/19 16:00 05/22/19 18:00 05/22/19 18:00 05/22/19 14:00 HEENT - s/p Trach. LIJ. Heart - S1 S2, rate controlled. Lungs - Ventilated via Trach. Good air entry bilaterally Abdomen - High BMI. Soft. Bowel Sounds normal. Extremities - Edema. Laboratory Results - last 24 hr 05/21/19 05/21/19 05/21/19 19:49 20:48 22:08 WBC RBC Hgb Hct MCV MCH MCHC RDW Plt Count MPV PTT (Actin FS) Sodium Potassium Chloride Carbon Dioxide Anion Gap BUN Creatinine Est GFR (CKD-EPI)AfAm Est GFR (CKD-EPI)NonAf POC Glucometer 187 187 156 Random Glucose Calcium Phosphorus Magnesium Total Bilirubin AST ALT Alkaline Phosphatase Total Protein Albumin 05/21/19 05/22/19 05/22/19 23:20 01:22 02:11 WBC RBC Hgb Hct MCV MCH MCHC RDW Plt Count MPV PTT (Actin FS) Sodium Potassium Chloride Carbon Dioxide Anion Gap BUN Creatinine Est GFR (CKD-EPI)AfAm Est GFR (CKD-EPI)NonAf POC Glucometer 181 137 109 Random Glucose Calcium Phosphorus Magnesium Total Bilirubin AST ALT Alkaline Phosphatase Total Protein Albumin 05/22/19 05/22/19 05/22/19 02:49 03:52 05:30 WBC RBC Hgb Hct MCV MCH MCHC RDW Plt Count MPV PTT (Actin FS) 67.4 H Sodium Potassium Chloride Carbon Dioxide Anion Gap BUN Creatinine Est GFR (CKD-EPI)AfAm Est GFR (CKD-EPI)NonAf POC Glucometer 115 135 Random Glucose Calcium Phosphorus Magnesium Total Bilirubin AST ALT Alkaline Phosphatase Total Protein Albumin 05/22/19 05/22/19 05/22/19 05:30 05:30 06:34 WBC 4.5 RBC 3.78 L Hgb 9.5 L Hct 30.2 L MCV 80.1 MCH 25.0 L MCHC 31.3 L RDW 20.1 H Plt Count 147 MPV 10.7 PTT (Actin FS) Sodium 141 Potassium 3.6 Chloride 102 Carbon Dioxide 33 H Anion Gap 6 L BUN 62.9 H Creatinine 1.1 Est GFR (CKD-EPI)AfAm 89.61 Est GFR (CKD-EPI)NonAf 77.32 POC Glucometer 149 Random Glucose 145 H Calcium 7.7 L Phosphorus 2.8 Magnesium 2.3 Total Bilirubin 0.7 AST 39 H ALT 76 H Alkaline Phosphatase 83 Total Protein 4.9 L Albumin 2.2 L 05/22/19 05/22/19 05/22/19 09:08 13:38 16:47 WBC RBC Hgb Hct MCV MCH MCHC RDW Plt Count MPV PTT (Actin FS) Sodium Potassium Chloride Carbon Dioxide Anion Gap BUN Creatinine Est GFR (CKD-EPI)AfAm Est GFR (CKD-EPI)NonAf POC Glucometer 137 186 222 Random Glucose Calcium Phosphorus Magnesium Total Bilirubin AST ALT Alkaline Phosphatase Total Protein Albumin Current Medications Generic Name Dose Route Start Last Admin Trade Name Freq PRN Reason Stop Dose Admin Amino Acids 30 ml 05/18/19 17:30 05/22/19 09:23 Prosource No Carb Liquid Pkt PO Not Given BID@0800,1730 ELISSA Chlorhexidine Gluconate 1 applic 04/30/19 22:00 05/21/19 22:26 Hibiclens For Decolonization - TP 1 applic HS ELISSA Administration Digoxin 0.125 mg 05/12/19 11:45 05/22/19 11:56 Lanoxin Injection - IVPUSH 0.125 mg DAILY ELISSA Administration Diltiazem HCl 10 mg 05/10/19 05:04 05/10/19 08:30 Cardizem Injection - IVPUSH 10 mg Q4H PRN Administration TACHYCARDIA Diltiazem HCl 30 mg 05/18/19 18:30 05/22/19 16:26 Cardizem - PO Not Given TID ELISSA Docusate Sodium 200 mg 05/15/19 13:37 05/21/19 10:30 Colace Liquid - PO 200 mg DAILY PRN Administration CONSTIPATION Ferrous Sulfate 300 mg 05/09/19 10:00 05/22/19 12:02 Feosol NGT Not Given BID ELISSA HEPARIN SOD,PORK IN 0.45% NACL 25,000 units in 500 mls @ 20 mls/hr 05/14/19 15 :30 05/22/19 16:40 Heparin-1/2ns 25,000 Units/500 IVPB 1,150 units/hr TITR ELISSA 23 mls/hr Administration Protocol 1,000 UNITS/HR Meropenem 500 mg/ Dextrose 100 mls @ 200 mls/hr 05/16/19 18:00 05/22/19 19:09 IVPB 200 mls/hr Q8H-IV ELISSA Administration Insulin Aspart 1 vial 05/22/19 17:00 Novolog Vial Sliding Scale - SQ Q4H ELISSA Protocol Insulin Detemir 10 units 05/23/19 22:00 Levemir Vial SQ HS ELISSA Metoprolol Tartrate 5 mg 04/30/19 08:57 05/17/19 18:09 Lopressor Injection - IVPUSH 5 mg Q4H PRN Administration TACHYCARDIA Metoprolol Tartrate 25 mg 05/16/19 14:00 05/22/19 16:26 Lopressor - GT Not Given TID ELISSA Pantoprazole Sodium 40 mg 05/14/19 10:00 05/22/19 11:52 Protonix Iv IVPUSH 40 mg DAILY ELISSA Administration Polyethylene Glycol 17 gm 05/16/19 11:45 05/22/19 09:23 Miralax (For Daily Use) - PO Not Given DAILY ELISSA Scopolamine HBr 1 patch 05/17/19 05:15 05/20/19 05:30 Transderm-Scop - TD 1 patch Q72H ELISSA Administration Senna 8.8 mg 05/20/19 22:00 05/21/19 22:26 Senna Oral Solution - PO 8.8 mg HS ELISSA Administration Thiamine HCl 200 mg 05/13/19 10:00 05/22/19 12:00 Vitamin B1 Injection - IVPB 200 mg DAILY ELISSA Administration Home Medications Medication Instructions Recorded Amiodarone HCl 200 mg PO DAILY 04/30/19 Apixaban [Eliquis] 5 mg PO BID 04/30/19 Diltiazem Cd [Cardizem Cd -] 300 mg PO DAILY 04/30/19 Furosemide 40 mg PO BID 04/30/19 Glipizide 10 mg PO DAILY 04/30/19 Lisinopril 10 mg PO DAILY 04/30/19 Metformin HCl [Glucophage] 1,000 mg PO BID 04/30/19 Sitagliptin Phosphate [Januvia] 100 mg PO DAILY 04/30/19 ASSESSMENT AND PLAN: 53 year old male with Obesity, DM 2, Sarcoidosis, Hx systolic CHF (EF 45-50%, now EF normal), EMMY (non-adherent with CPAP), and Atrial Flutter presented with sudden onset of shortness of breath, requiring intubation and mechanical ventilation. 1. Acute Hypoxic and Hypercapneic Respiratory Failure secondary to Acute Diastolic CHF +/- PNA Extubated 05/09/19 and re-intubated 05/13/19 s/p Trach 05/22 IV BID Lasix diuresis stopped Zosyn changed to Meropenem due to ESBL positive Sputum Cx. Continue Bronchodilator Nebs. Steroids tapered off. Rest as per Corporate Accountant 2. Cardiogenic Shock sec to Acute Diastolic CHF vs Septic Shock, etiology unclear - resolved, off pressors. Weaned off Levophed and Vasopressin Blood Cx - Staph epi, likely contaminant. Echo - no vegetations. Repeat Blood Cx neg x 2. On Meropenem for ESBL Pneumonia BP rebounded well - holding up on Metoprolol and Diltiazem. Cardiology following - for out-patient Cardiac MRI to asses degree of sarcoid involvement. 3. Atrial flutter with RVR - better controlled on Metoprolol, Diltiazem, Digoxin. On Heparin drip. Further recommendations as per Cardiology. 4. RYNE with Hyperkalemia - likely secondary to Cardiorenal phenomenon, resolved. Nephrology following. 5. Hypernateremia sec to dehydration/overdiuresis - resolved with IV hydration. 6. DM 2 - Continue Insulin drip. 7. Generalized weakness s/p Intubation/Extubation with progressive weakness and encephalopathy necessitating Re-Intubation ?deconditioning. CT Head negative for acute findings. ?GBS ?Critical Care Myopathy. Consultation for EMG, reported normal, awaiting official report. 8. Iron Deficiency Anemia - FeSO4 supplementation. No evidence of active blood loss. For out-patient Ix. DVT Px - Heparin SQ GI Px - PPI
[2019-05-22] MEDS: INSULIN SLIDING SCALE (NOVOLOG) 1 VIAL SQ SCH ×2 (20:22→21:14)
[2019-05-22] MEDS ORDERED: HEPARIN NA (PORCINE) 5,000 UNITS/ML 1ML VIAL IVPUSH ONE (21:00)
[2019-05-22] MEDS: SENNOSIDES 8.8 MG/5 ML BULK BOTTLE PO SCH (21:14)
[2019-05-22] MEDS: CHLORHEXIDINE GLUCONATE 4% CLEANSER FOR DECOLONIZATION TP SCH (21:14)
[2019-05-22] MEDS ORDERED: INSULIN (LEVEMIR) 100 UNITS/ML UNITS SQ SCH (22:00)
--- NOTE | 2019-05-22 23:11 | PN ---
Physical Exam: SUBJECTIVE: Patient seen and examined prior to trach. No acute complaints. Insulin drip d/c'd OBJECTIVE: Vital Signs Period Temp Pulse Resp BP Sys/Kenyon Pulse Ox Last 24 Hr 98.5 F-99.1 F 33-101 22-100 89-126/47-70 100-100 GENERAL: The patient is trached and sedated later in day. RASS -5. LIJ in place LUNGS: Breath sounds reduced at bases, difficult to hear given body habitus HEART: irregular rate and rhythm, S1, S2 without murmur, rub or gallop. ABDOMEN: Soft, nontender, nondistended EXTREMITIES: 2+ pulses, warm, well-perfused, no edema. NEUROLOGICAL: sedated SKIN: Warm, dry, no rashes or lesions noted Laboratory Results - last 24 hr 05/21/19 05/22/19 05/22/19 23:20 01:22 02:11 WBC RBC Hgb Hct MCV MCH MCHC RDW Plt Count MPV PTT (Actin FS) Sodium Potassium Chloride Carbon Dioxide Anion Gap BUN Creatinine Est GFR (CKD-EPI)AfAm Est GFR (CKD-EPI)NonAf POC Glucometer 181 137 109 Random Glucose Calcium Phosphorus Magnesium Total Bilirubin AST ALT Alkaline Phosphatase Total Protein Albumin 05/22/19 05/22/19 05/22/19 02:49 03:52 05:30 WBC RBC Hgb Hct MCV MCH MCHC RDW Plt Count MPV PTT (Actin FS) 67.4 H Sodium Potassium Chloride Carbon Dioxide Anion Gap BUN Creatinine Est GFR (CKD-EPI)AfAm Est GFR (CKD-EPI)NonAf POC Glucometer 115 135 Random Glucose Calcium Phosphorus Magnesium Total Bilirubin AST ALT Alkaline Phosphatase Total Protein Albumin 05/22/19 05/22/19 05/22/19 05:30 05:30 06:34 WBC 4.5 RBC 3.78 L Hgb 9.5 L Hct 30.2 L MCV 80.1 MCH 25.0 L MCHC 31.3 L RDW 20.1 H Plt Count 147 MPV 10.7 PTT (Actin FS) Sodium 141 Potassium 3.6 Chloride 102 Carbon Dioxide 33 H Anion Gap 6 L BUN 62.9 H Creatinine 1.1 Est GFR (CKD-EPI)AfAm 89.61 Est GFR (CKD-EPI)NonAf 77.32 POC Glucometer 149 Random Glucose 145 H Calcium 7.7 L Phosphorus 2.8 Magnesium 2.3 Total Bilirubin 0.7 AST 39 H ALT 76 H Alkaline Phosphatase 83 Total Protein 4.9 L Albumin 2.2 L 05/22/19 05/22/19 05/22/19 09:08 13:38 16:47 WBC RBC Hgb Hct MCV MCH MCHC RDW Plt Count MPV PTT (Actin FS) Sodium Potassium Chloride Carbon Dioxide Anion Gap BUN Creatinine Est GFR (CKD-EPI)AfAm Est GFR (CKD-EPI)NonAf POC Glucometer 137 186 222 Random Glucose Calcium Phosphorus Magnesium Total Bilirubin AST ALT Alkaline Phosphatase Total Protein Albumin 05/22/19 05/22/19 20:25 21:08 WBC RBC Hgb Hct MCV MCH MCHC RDW Plt Count MPV PTT (Actin FS) 50.7 H Sodium Potassium Chloride Carbon Dioxide Anion Gap BUN Creatinine Est GFR (CKD-EPI)AfAm Est GFR (CKD-EPI)NonAf POC Glucometer 203 Random Glucose Calcium Phosphorus Magnesium Total Bilirubin AST ALT Alkaline Phosphatase Total Protein Albumin Active Medications Generic Name Dose Route Start Last Admin Trade Name Freq PRN Reason Stop Dose Admin Amino Acids 30 ml 05/18/19 17:30 05/22/19 20:22 Prosource No Carb Liquid Pkt PO Not Given BID@0800,1730 ELISSA Chlorhexidine Gluconate 1 applic 04/30/19 22:00 05/22/19 21:14 Hibiclens For Decolonization - TP 1 applic HS ELISSA Administration Digoxin 0.125 mg 05/12/19 11:45 05/22/19 11:56 Lanoxin Injection - IVPUSH 0.125 mg DAILY ELISSA Administration Diltiazem HCl 10 mg 05/10/19 05:04 05/10/19 08:30 Cardizem Injection - IVPUSH 10 mg Q4H PRN Administration TACHYCARDIA Diltiazem HCl 30 mg 05/18/19 18:30 05/22/19 21:13 Cardizem - PO 30 mg TID ELISSA Administration Docusate Sodium 200 mg 05/15/19 13:37 05/21/19 10:30 Colace Liquid - PO 200 mg DAILY PRN Administration CONSTIPATION Ferrous Sulfate 300 mg 05/09/19 10:00 05/22/19 21:13 Feosol NGT 300 mg BID ELISSA Administration HEPARIN SOD,PORK IN 0.45% NACL 25,000 units in 500 mls @ 20 mls/hr 05/14/19 15 :30 02/13/20 16:40 Heparin-1/2ns 25,000 Units/500 IVPB 1,150 units/hr TITR ELISSA 23 mls/hr Administration Protocol 1,000 UNITS/HR Meropenem 500 mg/ Dextrose 100 mls @ 200 mls/hr 05/16/19 18:00 05/22/19 19:09 IVPB 200 mls/hr Q8H-IV ELISSA Administration Insulin Aspart 1 vial 05/22/19 17:00 05/22/19 21:14 Novolog Vial Sliding Scale - SQ 6 units Q4H ELISSA Administration Protocol Insulin Detemir 10 units 05/23/19 22:00 Levemir Vial SQ HS ELISSA Metoprolol Tartrate 5 mg 04/30/19 08:57 05/17/19 18:09 Lopressor Injection - IVPUSH 5 mg Q4H PRN Administration TACHYCARDIA Metoprolol Tartrate 25 mg 05/16/19 14:00 05/22/19 21:14 Lopressor - GT 25 mg TID ELISSA Administration Pantoprazole Sodium 40 mg 05/14/19 10:00 05/22/19 11:52 Protonix Iv IVPUSH 40 mg DAILY ELISSA Administration Polyethylene Glycol 17 gm 05/16/19 11:45 05/22/19 09:23 Miralax (For Daily Use) - PO Not Given DAILY ELISSA Scopolamine HBr 1 patch 05/17/19 05:15 05/20/19 05:30 Transderm-Scop - TD 1 patch Q72H ELISSA Administration Senna 8.8 mg 05/20/19 22:00 05/22/19 21:14 Senna Oral Solution - PO 8.8 mg HS ELISSA Administration Thiamine HCl 200 mg 05/13/19 10:00 05/22/19 12:00 Vitamin B1 Injection - IVPB 200 mg DAILY ELISSA Administration ASSESSMENT/PLAN: This is a 53 y/o/m with PMHx of DM2, HFpEF(last EF: 45-50%), 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 #Acute Hypoxic and Hypercapneic Respiratory Failure/ EMMY - re-intubated on 05/13 - Duonebs RQID - Follow serial CXRs - ID consulted (Dr. Garcia) -Sputum cx: ESBL - c/w meropenem (day 5) - vent settings 350/30/10/40 - atrovent nebulizer prn -Cont vent support and wean FiO2 as tolerated. -Pt s/p tracheostomy with Dr. Lawson today #Altered mental status and weakness - Concern for critical care induced myopathy - Patient with poor mental status when extubated - Risk factors include glucocorticoids, paralytic use, extended intubation - Head CT - negative for acute pathology - unable to complete MRI due to non-MRI compatible vents - Neuro Consulted (Dr. Pleitez) -Bedside EMG shows no evidence of myopathy, but cannot rule out myopathic process. - EEG(05/16/19): abn EEG, nonspecific finding of diffuse encephalopathy #HFpEF vs. Cardiogenic shock - Lasix discontinued - Strict Is & Os, daily weights - ECHO - EF of 55-60%, no significant abnormalities noted, no vegetations - Cardiology Consult (Dr. Encinas) - Off pressors, BP stable - Cardio recommends cardiac PET or MRI to exclude cardiac involvement in sarcoidosis as outpatient. F/u with Dr. Genaro Davila at [place] #Atrial Flutter - Cardizem drip discontinued, switched to PO 30 TID cardizem - Digoxin 0.125mg daily - Lopressor 25mg BID ELISSA via NGtube, Lopressor 5mg IV Q4H PRN - Cardizem mg IV Q4H PRN -Continue and up-titrate oral diltiazem with plan to wean off drip and unfractionated heparin drip before starting oral regimen (Eliquis 5 mg BID) - ICU team s/w visiting professor that sees as outpatient- recommended cardioversion, but has failed in the past x2. #RYNE on CKD w/ Hyperkalemia - Monitor BUN/Cr levels, baseline Cr ~1.5 - Renal function improved, Cr now 1.4 - Nephrology Consulted (Dr. Kelley) - Likely secondary to volume overload. Pt. likely has CKD given risk factors of DM2 (uncontrolled glucose) and Heart Failure - IVF discontinued, will continue free fluid through NG tube - Hold Lisinopril, restart 10mg QD once improved renal function - K+ elevated to 5.2, switched patient to Nephro feeds - ortiz changed today - continue lasix drip #DM2 - BGM - ISS - Levemir 10HS started - discontinued Insulin drip bgm q1h #FEN - IVF discontinued, continue free water fluid via NG tube - monitor and replete lytes as needed - NG tube inserted, tube feeds to goal. Feeds changed to Nepro due to elevated 5.2 #Prophylaxis - Heparin Drip - Protonix 40 daily #Disposition - Continue ICU monitoring, will speak to social work regarding LTAC placement. Visit type - Emergency Visit Emergency Visit: Yes ED Registration Date: 04/30/19 Care time: The patient presented to the Emergency Department on the above date and was hospitalized for further evaluation of their emergent condition. - New Patient This patient is new to me today: No - Critical Care Critical Care patient: Yes Total Critical Care Time (in minutes): 40 Critical Care Statement: The care of this patient involved high complexity decision making to prevent further life threatening deterioration of the patient 's condition and/or to evaluate & treat vital organ system(s) failure or risk of failure. - Discharge Referral Referred to [facility] No ATTENDING PHYSICIAN STATEMENT I saw and evaluated the patient. I reviewed the resident's note and discussed the case with the resident. I agree with the resident's findings and plan as documented. SUBJECTIVE: OBJECTIVE: ASSESSMENT AND PLAN:
[2019-05-23] MEDS ORDERED: MEROPENEM 500 MG VIAL (RESTRICTED TO ID) IVPB ONE ×3 (01:26→17:31)
[2019-05-23] MEDS ORDERED: DEXTROSE 5%-WATER 100 ML IVPB ONE ×3 (01:26→17:31)
[2019-05-23] MEDS: INSULIN SLIDING SCALE (NOVOLOG) 1 VIAL SQ SCH ×6 (01:32→21:41)
[2019-05-23] MEDS: MEROPENEM 500 MG in DEXTROSE 5%-WATER 100 ML IVPB SCH ×3 (01:32→17:35)
[2019-05-23] MEDS: SCOPOLAMINE HYDROBROMIDE 1 PATCH PATCH.TD72 TD SCH (05:00)
[2019-05-23 06:39] LABS: HEMATOCRIT 32.2 % (35.4-49); MCH 24.9 pg (25.7-33.7); MCHC 31.1 g/dl (32.0-35.9); MEAN CELL VOLUME 80.1 fl (80-96); MEAN PLT VOLUME 10.4 fl (7.5-11.1); PLATELET COUNT 180 K/MM3 (134-434); RBC 4.03 M/mm3 (4.00-5.60); RDW 20.6 % (11.9-15.9); WHITE BLOOD COUNT 6.1 K/mm3 (4.0-10.0)
[2019-05-23] MEDS: METOPROLOL TARTRATE 25 MG TABLET (FP) GT SCH ×3 (06:40→21:17)
[2019-05-23] MEDS: dilTIAZem HCL 30 MG TABLET (FP) PO SCH ×3 (06:41→21:18)
[2019-05-23 07:08] LABS: ALBUMIN 2.2 g/dl (3.4-5.0); BILIRUBIN,TOTAL 0.6 mg/dL (0.2-1); BLOOD UREA NITROGEN 43.7 mg/dL (7-18); CALCIUM 8.3 mg/dL (8.5-10.1); CREATININE 0.9 mg/dL (0.55-1.3); MAGNESIUM 2.1 mg/dL (1.8-2.4); PHOSPHOROUS 2.8 mg/dL (2.5-4.9); POTASSIUM 4.3 mmol/L (3.5-5.1); TOT PROT 5.3 g/dl (6.4-8.2)
[2019-05-23] MEDS ORDERED: PT OWN MED DRAWER 7, Y5N ONE ×2 (09:19→16:02)
[2019-05-23] MEDS: DIGOXIN 0.5 MG/2 ML AMPUL IVPUSH SCH (09:25)
[2019-05-23] MEDS: AMINO ACIDS/PROTEIN HYDROLYS 30 ML LIQUID.PKT PO SCH ×2 (09:25→17:35)
[2019-05-23] MEDS: PANTOPRAZOLE SODIUM 40 MG VIAL IVPUSH SCH (09:26)
[2019-05-23] MEDS: THIAMINE HCL 200 MG/2 ML VIAL IVPB SCH (09:26)
[2019-05-23] MEDS: FERROUS SO4 300 MG/5 ML ORAL SOLN UNIT DOSE CUPS NGT SCH ×2 (10:03→21:20)
--- NOTE | 2019-05-23 10:28 | PN ---
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, Physician History of Present Illness: s/p tracheostomy AC Mode of vent 100% FiO2 PEEP 10. Aflutter with improved rate response. - Current Medication List Current Medications: Active Medications Amino Acids (Prosource No Carb Liquid Pkt) 30 ml PO BID@0800,1730 [facility] Last Admin: 05/23/19 09:25 Dose: 30 ml Chlorhexidine Gluconate (Hibiclens For Decolonization -) 1 applic TP [facility] Last Admin: 05/22/19 21:14 Dose: 1 applic Digoxin (Lanoxin Injection -) 0.125 mg IVPUSH DAILY [facility] Last Admin: 05/23/19 09:25 Dose: 0.125 mg Diltiazem HCl (Cardizem Injection -) 10 mg IVPUSH Q4H PRN PRN Reason: TACHYCARDIA Last Admin: 05/10/19 08:30 Dose: 10 mg Diltiazem HCl (Cardizem -) 30 mg PO TID [facility] Last Admin: 05/23/19 06:41 Dose: 30 mg Docusate Sodium (Colace Liquid -) 200 mg PO DAILY PRN PRN Reason: CONSTIPATION Last Admin: 05/21/19 10:30 Dose: 200 mg Ferrous Sulfate (Feosol) 300 mg NGT BID [facility] Last Admin: 05/22/19 21:13 Dose: 300 mg HEPARIN SOD,PORK IN 0.45% NACL (Heparin-1/2ns 25,000 Units/500) 25,000 units in 500 mls @ 20 mls/hr IVPB TITR [facility]; Protocol Last Admin: 05/22/19 16:40 Dose: 1,150 units/hr, 23 mls/hr Meropenem 500 mg/ Dextrose 100 mls @ 200 mls/hr IVPB Q8H-IV [facility] Last Admin: 05/23/19 01:32 Dose: 200 mls/hr Insulin Aspart (Novolog Vial Sliding Scale -) 1 vial SQ Q4H [facility]; Protocol Last Admin: 05/23/19 06:41 Dose: Not Given Insulin Detemir (Levemir Vial) 10 units SQ [facility] Metoprolol Tartrate (Lopressor Injection -) 5 mg IVPUSH Q4H PRN PRN Reason: TACHYCARDIA Last Admin: 05/17/19 18:09 Dose: 5 mg Metoprolol Tartrate (Lopressor -) 25 mg GT TID [facility] Last Admin: 05/23/19 06:40 Dose: 25 mg Pantoprazole Sodium (Protonix Iv) 40 mg IVPUSH DAILY [facility] Last Admin: 05/23/19 09:26 Dose: 40 mg Polyethylene Glycol (Miralax (For Daily Use) -) 17 gm PO DAILY [facility] Last Admin: 05/22/19 09:23 Dose: Not Given Scopolamine HBr (Transderm-Scop -) 1 patch TD Q72H [facility] Last Admin: 05/23/19 05:00 Dose: 1 patch Senna (Senna Oral Solution -) 8.8 mg PO HS [facility] Last Admin: 05/22/19 21:14 Dose: 8.8 mg Thiamine HCl (Vitamin B1 Injection -) 200 mg IVPB DAILY [facility] Last Admin: 05/23/19 09:26 Dose: 200 mg - Objective Vital Signs: Vital Signs Temperature 98.4 F 05/23/19 02:00 Pulse Rate 104 H 05/23/19 09:25 Respiratory Rate 37 H 05/23/19 10:00 Blood Pressure 112/66 05/23/19 09:11 O2 Sat by Pulse Oximetry (%) 100 05/23/19 10:00 Constitutional: Yes: No Distress, Calm Neck: Yes: Other (Tracheostomy) Cardiovascular: Yes: Pulse Irregular Respiratory: Yes: Mechanically Ventilated Gastrointestinal: Yes: Normal Bowel Sounds, Soft, Abdomen, Obese Genitourinary: Yes: Andrews Present Edema: No Labs: CBC, BMP 05/23/19 05:30 05/23/19 05:30 INR, PTT INR 1.09 (0.83-1.09) 05/05/19 05:30 - ....Imaging Chest X-ray: Report Reviewed (NAD) EKG: Report Reviewed (Tele: Rate-controlled aflutter) Problem List - Problems (1) Pneumonia Code(s): J18.9 - PNEUMONIA, UNSPECIFIED ORGANISM Qualifiers: Pneumonia type: due to unspecified organism (2) Acute hypercapnic respiratory failure due to obstructive sleep apnea Code(s): J96.02 - ACUTE RESPIRATORY FAILURE WITH HYPERCAPNIA; G47.33 - OBSTRUCTIVE SLEEP APNEA (ADULT) (PEDIATRIC) (3) Acute decompensated heart failure Code(s): I50.9 - HEART FAILURE, UNSPECIFIED (4) Acute renal failure Code(s): N17.9 - ACUTE KIDNEY FAILURE, UNSPECIFIED Qualifiers: Acute renal failure type: unspecified Qualified Code(s): N17.9 - Acute kidney failure, unspecified (5) Sarcoidosis of other sites Code(s): D86.89 - SARCOIDOSIS OF OTHER SITES (6) Type 2 diabetes mellitus Code(s): E11.9 - TYPE 2 DIABETES MELLITUS WITHOUT COMPLICATIONS Qualifiers: Diabetes mellitus fdc insulin use: without predatory animal exterminator use Diabetes mellitus complication detail: with chronic kidney disease Chronic kidney disease stage: stage 2 (mild) (7) Atrial fibrillation and flutter Code(s): I48.91 - UNSPECIFIED ATRIAL FIBRILLATION; I48.92 - UNSPECIFIED ATRIAL FLUTTER Assessment/Plan 05/01/2019 Normal LV and RV size and fxn, tr TR 03/14/2019 Normal LV size and fxn, no thrombus ADEEL, mild-mod dilated and HK RV, tr MR, mild-mod TR, tr MS, trace pericardial effusion 1. Acute hypoxic and hypercapneic respiratory failure currently on mechanical ventilation via tracheostomy 2. Pneumonia, septic shock, Gram Positive Bacteremia and ARDS 3. Sarcoidosis confirmed by skin biopsy, r/o cardiac involvement 4. OSAS nonadherent to CPAP 5. Paroxysmal Aflutter/Afib with RVR 6. Acute on chronic diastolic heart failure 7. Acute on CKD with hyperkalemia resolved 8. Type 2 DM 9. Anemia PLAN: 1. Empiric antibiotic, bronchodilator and enteral feeds 2. Vent manage per ABG, taper fiO2 to keep SpO2 >90% 3. Rate-control with d/c IV digoxin, uptitrate oral Lopressor and Cardizem as hemodynamics tolerate, IV Cardizem and Lopressor as needed and continue unfractionated Heparin drip before starting oral regiment such as Eliquis 5 mg BID 4. Diuretics as needed with monitor renal function and electrolytes 5. Resume lisinopril 5 mg QD as renal function and hyperkalemia stabilized 6. Follow up with Dr. Genaro Davila (cardiology at [place]). Consider cardiac PET or MRI to exclude cardiac involvement in sarcoidosis as outpatient
[2019-05-23] MEDS: POLYETHYLENE GLYCOL 3350 119 GM BTL PO SCH (11:03)
--- NOTE | 2019-05-23 11:48 | PN ---
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 Seems to understand but unable to verbalize. 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 GBS? EMG performed Pt able to move left big toe, occasionally shakes head y/n, closes eyes. Attempted to establish consistent Y/N response but unable sec to inconsistent ability to motorically respond consistently. 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
--- NOTE | 2019-05-23 12:50 | PN ---
Teaching Attending Note Name of Resident: Zoë Schmidt ATTENDING PHYSICIAN STATEMENT I saw and evaluated the patient. I reviewed the resident's note and discussed the case with the resident. I agree with the resident's findings and plan as documented. SUBJECTIVE: Patient seen and examined in the ICU. AC Mode of vent, 40% FiO2. Remains intubated and sedated. Intake & Output 05/20/19 05/21/19 05/22/19 05/23/19 23:59 23:59 23:59 23:59 Intake Total 4479 4407 3447 150 Output Total 2400 900 1411 1000 Balance 2079 3507 2036 -850 Weight 264 lb 256 lb 6.4 oz 266 lb 12.8 oz 266 lb 12.8 oz Last Vital Signs Temp Pulse Resp BP Pulse Ox 99.7 F H 101 H 38 H 110/65 100 05/23/19 11:47 05/23/19 11:47 05/23/19 12:13 05/23/19 11:47 05/23/19 10:00 Active Medications Amino Acids (Prosource No Carb Liquid Pkt) 30 ml PO BID@0800,1730 [facility] Last Admin: 05/23/19 09:25 Dose: 30 ml Chlorhexidine Gluconate (Hibiclens For Decolonization -) 1 applic TP HS [facility] Last Admin: 05/22/19 21:14 Dose: 1 applic Diltiazem HCl (Cardizem -) 30 mg PO TID [facility] Last Admin: 05/23/19 06:41 Dose: 30 mg Docusate Sodium (Colace Liquid -) 200 mg PO DAILY PRN PRN Reason: CONSTIPATION Last Admin: 05/21/19 10:30 Dose: 200 mg Ferrous Sulfate (Feosol) 300 mg NGT BID [facility] Last Admin: 05/22/19 21:13 Dose: 300 mg HEPARIN SOD,PORK IN 0.45% NACL (Heparin-1/2ns 25,000 Units/500) 25,000 units in 500 mls @ 20 mls/hr IVPB TITR ELISSA; Protocol Last Admin: 05/22/19 16:40 Dose: 1,150 units/hr, 23 mls/hr Meropenem 500 mg/ Dextrose 100 mls @ 200 mls/hr IVPB Q8H-IV [facility] Last Admin: 05/23/19 10:29 Dose: 200 mls/hr Insulin Aspart (Novolog Vial Sliding Scale -) 1 vial SQ Q4H [facility]; Protocol Last Admin: 05/23/19 06:41 Dose: Not Given Insulin Detemir (Levemir Vial) 10 units SQ [facility] Lisinopril (Prinivil) 5 mg NGT DAILY [facility] Metoprolol Tartrate (Lopressor -) 25 mg GT TID [facility] Last Admin: 05/23/19 06:40 Dose: 25 mg Pantoprazole Sodium (Protonix Iv) 40 mg IVPUSH DAILY [facility] Last Admin: 05/23/19 09:26 Dose: 40 mg Polyethylene Glycol (Miralax (For Daily Use) -) 17 gm PO DAILY [facility] Last Admin: 05/22/19 09:23 Dose: Not Given Scopolamine HBr (Transderm-Scop -) 1 patch TD Q72H [facility] Last Admin: 05/23/19 05:00 Dose: 1 patch Senna (Senna Oral Solution -) 8.8 mg PO HS [facility] Last Admin: 05/22/19 21:14 Dose: 8.8 mg Thiamine HCl (Vitamin B1 Injection -) 200 mg IVPB DAILY [facility] Last Admin: 05/23/19 09:26 Dose: 200 mg GEN: Vented, awake, able to follow simple commands PULM: scattered rhonchi B/L CV: S1 S2, irreg/irreg ABD: + BS, S/S N/T N/D X4Q EXT: + Pulses, [id number], + edema 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 Laboratory Results - last 24 hr 05/22/19 05/22/19 05/22/19 13:38 16:47 20:25 WBC RBC Hgb Hct MCV MCH MCHC RDW Plt Count MPV PTT (Actin FS) 50.7 H Sodium Potassium Chloride Carbon Dioxide Anion Gap BUN Creatinine Est GFR (CKD-EPI)AfAm Est GFR (CKD-EPI)NonAf POC Glucometer 186 222 Random Glucose Calcium Phosphorus Magnesium Total Bilirubin AST ALT Alkaline Phosphatase Total Protein Albumin 05/22/19 05/23/19 05/23/19 21:08 01:04 05:30 WBC 6.1 RBC 4.03 Hgb 10.0 L Hct 32.2 L MCV 80.1 MCH 24.9 L MCHC 31.1 L RDW 20.6 H Plt Count 180 D MPV 10.4 PTT (Actin FS) Sodium Potassium Chloride Carbon Dioxide Anion Gap BUN Creatinine Est GFR (CKD-EPI)AfAm Est GFR (CKD-EPI)NonAf POC Glucometer 203 165 Random Glucose Calcium Phosphorus Magnesium Total Bilirubin AST ALT Alkaline Phosphatase Total Protein Albumin 05/23/19 05/23/19 05/23/19 05:30 06:34 11:15 WBC RBC Hgb Hct MCV MCH MCHC RDW Plt Count MPV PTT (Actin FS) Sodium 142 Potassium 4.3 Chloride 105 Carbon Dioxide 33 H Anion Gap 5 L BUN 43.7 H Creatinine 0.9 Est GFR (CKD-EPI)AfAm 114.21 Est GFR (CKD-EPI)NonAf 98.54 POC Glucometer 147 148 Random Glucose 138 H Calcium 8.3 L Phosphorus 2.8 Magnesium 2.1 Total Bilirubin 0.6 AST 31 ALT 60 Alkaline Phosphatase 90 Total Protein 5.3 L Albumin 2.2 L ASSESS: Acute Hypoxic and Hypercapneic Respiratory Failure Pneumonia Gram Positive Bacteremia Septic Shock Volume Overload ARDS Lactic Acidosis Hyperkalemia Acute Kidney Injury Atrial Flutter with RVR HTN DM Anemia PLAN: - Cont Vent Support - Wean FiO2 as tolerated - Nebs PRN - ABX per ID - Rate Control - AC - Monitor I's & O's - Replete e-lytes prn - FSS - TFs - DVT/GI prophylaxis - GI ppx - Vent floor Dr Maya
--- NOTE | 2019-05-23 13:11 | PN ---
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 (short form) - Note 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: Thoracic Surgery: Nursing staff at bedside this am, no issues overnight with the trach. He remains on assist control this am. Vital Signs Period Temp Pulse Resp BP Sys/Kenyon Pulse Ox Last 24 Hr 98.4 F-99.7 F 78-104 30-38 106-126/55-68 100-100 GEN: NAD Neck: trach clean and dry, on vent A/P: 53 yo male s/p trach Care as per the ICU team Wean off vent as tolerated D/w Dr. Lawson
[2019-05-23] MEDS ORDERED: HEPARIN NA (PORCINE) 5,000 UNITS/ML 1ML VIAL IVPUSH ONE (13:38)
[2019-05-23] MEDS ORDERED: HEPARIN NA (PORCINE) 5,000 UNITS/ML 1ML VIAL IVPUSH PRN ×3 (13:38→23:11)
[2019-05-23] MEDS: HEPARIN SOD,PORK IN 0.45% NACL 25,000 UNITS/500 ML INFUS.BAG IVPB SCH (14:15)
--- NOTE | 2019-05-23 14:40 | PN ---
Physical Exam: SUBJECTIVE: Patient seen and examined. No acute events overnight. Trach placed yesterday. OBJECTIVE: Vital Signs Period Temp Pulse Resp BP Sys/Kenyon Pulse Ox Last 24 Hr 98.4 F-99.7 F 78-104 30-38 106-126/55-68 100-100 GENERAL: The patient is sedated. Minimally responsive to sternal rub. HEAD: Normal with no signs of trauma. ENT: Ears normal, nares patent, oropharynx clear without exudates, moist mucous membranes. Trach placed, no erythema, discharge or signs of infection. LUNGS: Mechanical ventilation. Scattered ronchi. No wheezes or crackles. HEART: Regular rate and rhythm, S1, S2 without murmur, rub or gallop. ABDOMEN: Soft, nontender, nondistended, normoactive bowel sounds, no guarding, no rebound, no hepatosplenomegaly, no masses. EXTREMITIES: 2+ pulses,warm, well-perfused, no edema. NEUROLOGICAL: Unable to assess. SKIN: Warm, dry, normal turgor, no rashes or lesions noted Laboratory Results - last 24 hr CBC, BMP 05/23/19 05:30 05/23/19 05:30 Active Medications Amino Acids (Prosource No Carb Liquid Pkt) 30 ml PO BID@0800,1730 [facility] Last Admin: 05/23/19 09:25 Dose: 30 ml Chlorhexidine Gluconate (Hibiclens For Decolonization -) 1 applic TP HS [facility] Last Admin: 05/22/19 21:14 Dose: 1 applic Diltiazem HCl (Cardizem -) 30 mg PO TID [facility] Last Admin: 05/23/19 13:31 Dose: 30 mg Docusate Sodium (Colace Liquid -) 200 mg PO DAILY PRN PRN Reason: CONSTIPATION Last Admin: 05/21/19 10:30 Dose: 200 mg Ferrous Sulfate (Feosol) 300 mg NGT BID [facility] Last Admin: 05/23/19 10:03 Dose: 300 mg Heparin Sodium (Porcine) (Heparin -) 5,000 unit IVPUSH PRN PRN PRN Reason: APTT (SECONDS) <40 Heparin Sodium (Porcine) (Heparin -) 1,000 unit IVPUSH PRN PRN PRN Reason: APTT (SECONDS) 40-49 HEPARIN SOD,PORK IN 0.45% NACL (Heparin-1/2ns 25,000 Units/500) 25,000 units in 500 mls @ 20 mls/hr IVPB TITR [facility]; Protocol Last Admin: 05/22/19 16:40 Dose: 1,150 units/hr, 23 mls/hr Meropenem 500 mg/ Dextrose 100 mls @ 200 mls/hr IVPB Q8H-IV [facility] Last Admin: 05/23/19 10:29 Dose: 200 mls/hr Insulin Aspart (Novolog Vial Sliding Scale -) 1 vial SQ Q4H [facility]; Protocol Last Admin: 05/23/19 13:09 Dose: 3 units Insulin Detemir (Levemir Vial) 10 units SQ HS [facility] Lisinopril (Prinivil) 5 mg NGT DAILY [facility] Metoprolol Tartrate (Lopressor -) 25 mg GT TID [facility] Last Admin: 05/23/19 13:32 Dose: 25 mg Pantoprazole Sodium (Protonix Iv) 40 mg IVPUSH DAILY [facility] Last Admin: 05/23/19 09:26 Dose: 40 mg Polyethylene Glycol (Miralax (For Daily Use) -) 17 gm PO DAILY [facility] Last Admin: 05/23/19 11:03 Dose: 17 grams Scopolamine HBr (Transderm-Scop -) 1 patch TD Q72H [facility] Last Admin: 05/23/19 05:00 Dose: 1 patch Senna (Senna Oral Solution -) 8.8 mg PO HS [facility] Last Admin: 05/22/19 21:14 Dose: 8.8 mg Thiamine HCl (Vitamin B1 Injection -) 200 mg IVPB DAILY [facility] Last Admin: 05/23/19 09:26 Dose: 200 mg ASSESSMENT/PLAN: Patient is a 53 year old male with PMH of TIIDM, HFpEF (last EF 45-50%), EMMY ( non-adherent to CPAP) and atrial flutter, with acute hypoxic hypercapneic respiratory failure, found to have ARDS. Patient was extubated, and required reintubation due to mental status. Neuro: -Pt is awake and alert when sedation is held. Sedated on Precedex and Propofol -CT head (05/13/19): no acute hemorrhage or infarcts -Daily sedation vacation to assess mental status -Bedside EEG done, f/u results -Bedside EMG shows no evidence of myopathy, but cannot rule out myopathic process. Cardiovascular: -Central line changed 05/20/19 -PMH of aflutter, HFpEF -Hx of paroxysmal Aflutter/Afib with RVR -Weaned off levophed for MAP >65 -D/c IV lopressor, IV cardizem, and IV digoxin -Cont oral cardizem 30mg TID and oral lopressor 25mg TID -Cont heparin drip before starting oral regiment (such as Eliquis 5 mg BID) -Cardiology following (Dr. Encinas, Dr. King), appreciate recommendations -Spoke with outpatient sales lead Dr. Genaro Davila - recommends cardioversions, but has failed in the past x2. Pulmonary: -Acute hypoxic and hypercapneic respiratory failure, presenting with ARDS -Cont vent support and taper FiO2 -Pt s/p tracheostomy by Dr. Lawson on 05/22/19 -Atrovent nebulizer PRN Renal: -Andrews catheter changed 05/19/19 -Nephro following (Dr. Kelley) -D/c lasix -D/c fluids -Creatinine stable @ 1.4, cont to monitor -Free water replacement via NG tube- 250 cc Water Q6H -Resume lisinopril 10mg QD once renal function improves GI: -Protonix 40 mg IV daily -Promote tube feeds -Pt has not had BM in several days, s/p enema -Cont miralax, senna, colace. May need manual disimpaction ID: -Sputum cx: ESBL -Cont IV meropenem (Day 6) -ID following (Dr. Lang) Endo: -BGM better controlled (180s) -Cont insulin drip prn with BGM Q2H F: No standing IVF E: Trend K N: Nepro Tube Feeds DVT: Heparin drip GI: Protonix Central line changed on 05/19/19. Dispo: - Pt stable to be transferred to med-surg Visit type - Emergency Visit Emergency Visit: No - New Patient This patient is new to me today: No - Critical Care Critical Care patient: Yes Total Critical Care Time (in minutes): 45 Critical Care Statement: The care of this patient involved high complexity decision making to prevent further life threatening deterioration of the patient 's condition and/or to evaluate & treat vital organ system(s) failure or risk of failure. ATTENDING PHYSICIAN STATEMENT I saw and evaluated the patient. I reviewed the resident's note and discussed the case with the resident. I agree with the resident's findings and plan as documented. SUBJECTIVE: OBJECTIVE: ASSESSMENT AND PLAN:
--- NOTE | 2019-05-23 16:26 | PN ---
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, Physician History of Present Illness: Pt seen and examined at bedside. He is awake but not very interactive. - Current Medication List Current Medications: Active Medications Amino Acids (Prosource No Carb Liquid Pkt) 30 ml PO BID@0800,1730 [facility] Last Admin: 05/23/19 09:25 Dose: 30 ml Chlorhexidine Gluconate (Hibiclens For Decolonization -) 1 applic TP HS [facility] Last Admin: 05/22/19 21:14 Dose: 1 applic Diltiazem HCl (Cardizem -) 30 mg PO TID [facility] Last Admin: 05/23/19 13:31 Dose: 30 mg Docusate Sodium (Colace Liquid -) 200 mg PO DAILY PRN PRN Reason: CONSTIPATION Last Admin: 05/21/19 10:30 Dose: 200 mg Ferrous Sulfate (Feosol) 300 mg NGT BID [facility] Last Admin: 05/23/19 10:03 Dose: 300 mg Heparin Sodium (Porcine) (Heparin -) 5,000 unit IVPUSH PRN PRN PRN Reason: APTT (SECONDS) <40 Heparin Sodium (Porcine) (Heparin -) 1,000 unit IVPUSH PRN PRN PRN Reason: APTT (SECONDS) 40-49 HEPARIN SOD,PORK IN 0.45% NACL (Heparin-1/2ns 25,000 Units/500) 25,000 units in 500 mls @ 20 mls/hr IVPB TITR [facility]; Protocol Last Admin: 05/22/19 16:40 Dose: 1,150 units/hr, 23 mls/hr Meropenem 500 mg/ Dextrose 100 mls @ 200 mls/hr IVPB Q8H-IV [facility] Last Admin: 05/23/19 10:29 Dose: 200 mls/hr Insulin Aspart (Novolog Vial Sliding Scale -) 1 vial SQ Q4H [facility]; Protocol Last Admin: 05/23/19 13:09 Dose: 3 units Insulin Detemir (Levemir Vial) 10 units SQ [facility] Lisinopril (Prinivil) 5 mg NGT DAILY [facility] Metoprolol Tartrate (Lopressor -) 25 mg GT TID [facility] Last Admin: 05/23/19 13:32 Dose: 25 mg Pantoprazole Sodium (Protonix Iv) 40 mg IVPUSH DAILY [facility] Last Admin: 05/23/19 09:26 Dose: 40 mg Polyethylene Glycol (Miralax (For Daily Use) -) 17 gm PO DAILY [facility] Last Admin: 05/23/19 11:03 Dose: 17 grams Scopolamine HBr (Transderm-Scop -) 1 patch TD Q72H [facility] Last Admin: 05/23/19 05:00 Dose: 1 patch Senna (Senna Oral Solution -) 8.8 mg PO HS [facility] Last Admin: 05/22/19 21:14 Dose: 8.8 mg Thiamine HCl (Vitamin B1 Injection -) 200 mg IVPB DAILY [facility] Last Admin: 05/23/19 09:26 Dose: 200 mg - Objective Vital Signs: Vital Signs Temperature 99.7 F H 05/23/19 11:47 Pulse Rate 102 H 05/23/19 14:45 Respiratory Rate 39 H 05/23/19 14:45 Blood Pressure 105/70 05/23/19 14:45 O2 Sat by Pulse Oximetry (%) 100 05/23/19 10:00 Constitutional: Yes: Calm Eyes: Yes: Conjunctiva Clear HENT: Yes: Atraumatic Neck: Yes: Other (trache) Cardiovascular: Yes: S1, S2 Respiratory: Yes: Mechanically Ventilated Gastrointestinal: Yes: Soft, Abdomen, Obese Genitourinary: Yes: Andrews Present Edema: Yes Edema: LLE: Trace, RLE: Trace Neurological: Yes: Confusion Labs: CBC, BMP 05/23/19 05:30 05/23/19 05:30 INR, PTT INR 1.09 (0.83-1.09) 05/05/19 05:30 - ....Imaging Chest X-ray: Report Reviewed Problem List - Problems (1) Acute decompensated heart failure Code(s): I50.9 - HEART FAILURE, UNSPECIFIED (2) Atrial fibrillation and flutter Code(s): I48.91 - UNSPECIFIED ATRIAL FIBRILLATION; I48.92 - UNSPECIFIED ATRIAL FLUTTER (3) Hyperkalemia Code(s): E87.5 - HYPERKALEMIA (4) Pneumonia Code(s): J18.9 - PNEUMONIA, UNSPECIFIED ORGANISM Qualifiers: Pneumonia type: due to unspecified organism (5) Sarcoidosis of other sites Code(s): D86.89 - SARCOIDOSIS OF OTHER SITES Assessment/Plan Current Medications Generic Name Dose Route Start Last Admin Trade Name Freq PRN Reason Stop Dose Admin Amino Acids 30 ml 05/18/19 17:30 05/23/19 09:25 Prosource No Carb Liquid Pkt PO 30 ml BID@0800,1730 [facility] Administration Chlorhexidine Gluconate 1 applic 04/30/19 22:00 05/22/19 21:14 Hibiclens For Decolonization - TP 1 applic HS [facility] Administration Diltiazem HCl 30 mg 05/18/19 18:30 05/23/19 13:31 Cardizem - PO 30 mg TID [facility] Administration Docusate Sodium 200 mg 05/15/19 13:37 05/21/19 10:30 Colace Liquid - PO 200 mg DAILY PRN Administration CONSTIPATION Ferrous Sulfate 300 mg 05/09/19 10:00 05/23/19 10:03 Feosol NGT 300 mg BID [facility] Administration Heparin Sodium (Porcine) 5,000 unit 05/23/19 13:38 Heparin - IVPUSH PRN PRN APTT (SECONDS) <40 Heparin Sodium (Porcine) 1,000 unit 05/23/19 13:38 Heparin - IVPUSH PRN PRN APTT (SECONDS) 40-49 HEPARIN SOD,PORK IN 0.45% NACL 25,000 units in 500 mls @ 20 mls/hr 05/14/19 15 :30 05/22/19 16:40 Heparin-1/2ns 25,000 Units/500 IVPB 1,150 units/hr TITR [facility] 23 mls/hr Administration Protocol 1,000 UNITS/HR Meropenem 500 mg/ Dextrose 100 mls @ 200 mls/hr 05/16/19 18:00 05/23/19 10:29 IVPB 200 mls/hr Q8H-IV [facility] Administration Insulin Aspart 1 vial 05/22/19 17:00 05/23/19 13:09 Novolog Vial Sliding Scale - SQ 3 units Q4H [facility] Administration Protocol Insulin Detemir 10 units 05/23/19 22:00 Levemir Vial SQ HS [facility] Lisinopril 5 mg 05/24/19 10:00 Prinivil NGT DAILY [facility] Metoprolol Tartrate 25 mg 05/16/19 14:00 05/23/19 13:32 Lopressor - GT 25 mg TID [facility] Administration Pantoprazole Sodium 40 mg 05/14/19 10:00 05/23/19 09:26 Protonix Iv IVPUSH 40 mg DAILY [facility] Administration Polyethylene Glycol 17 gm 05/16/19 11:45 05/23/19 11:03 Miralax (For Daily Use) - PO 17 grams DAILY [facility] Administration Scopolamine HBr 1 patch 05/17/19 05:15 05/23/19 05:00 Transderm-Scop - TD 1 patch Q72H [facility] Administration Senna 8.8 mg 05/20/19 22:00 05/22/19 21:14 Senna Oral Solution - PO 8.8 mg HS [facility] Administration Thiamine HCl 200 mg 05/13/19 10:00 05/23/19 09:26 Vitamin B1 Injection - IVPB 200 mg DAILY [facility] Administration Impression 1. RYNE 2. hyperkalemia 3. resp failure requiring intubation 4. resp acidosis 5. dm 6. hx htn 7. sleep apnea 8. obesity 9. hx non compliance 10. chf 11. sarcoid 12. volume overload 13. hypernatremia Plan - renal function improving - cont lasix - monitor renal function and lytes - volume status improving - vent support - monitor lytes and bmp - discussed with ICU - sodium stable
--- NOTE | 2019-05-23 17:02 | PN ---
Physical Exam: SUBJECTIVE: Patient seen and examined. No acute events s/p trach yesterday. OBJECTIVE: Vital Signs Period Temp Pulse Resp BP Sys/Kenyon Pulse Ox Last 24 Hr 98.4 F-99.7 F 78-104 30-39 105-126/62-70 100-100 GENERAL: The patient is sedated. Minimally responsive to sternal rub. HEAD: Normal with no signs of trauma. ENT: Ears normal, nares patent, oropharynx clear without exudates, moist mucous membranes. Trach placed, no erythema, discharge or signs of infection. LUNGS: Mechanical ventilation. Scattered ronchi. No wheezes or crackles. HEART: Regular rate and rhythm, S1, S2 without murmur, rub or gallop. ABDOMEN: Soft, nontender, nondistended, globose abdomen. EXTREMITIES: 2+ pulses,warm, well-perfused, no edema. NEUROLOGICAL: Unable to assess. SKIN: Warm, dry, normal turgor, no rashes or lesions noted Laboratory Results - last 24 hr 05/22/19 05/22/19 05/23/19 20:25 21:08 01:04 WBC RBC Hgb Hct MCV MCH MCHC RDW Plt Count MPV PTT (Actin FS) 50.7 H Sodium Potassium Chloride Carbon Dioxide Anion Gap BUN Creatinine Est GFR (CKD-EPI)AfAm Est GFR (CKD-EPI)NonAf POC Glucometer 203 165 Random Glucose Calcium Phosphorus Magnesium Total Bilirubin AST ALT Alkaline Phosphatase Total Protein Albumin 05/23/19 05/23/19 05/23/19 05:30 05:30 06:34 WBC 6.1 RBC 4.03 Hgb 10.0 L Hct 32.2 L MCV 80.1 MCH 24.9 L MCHC 31.1 L RDW 20.6 H Plt Count 180 D MPV 10.4 PTT (Actin FS) Sodium 142 Potassium 4.3 Chloride 105 Carbon Dioxide 33 H Anion Gap 5 L BUN 43.7 H Creatinine 0.9 Est GFR (CKD-EPI)AfAm 114.21 Est GFR (CKD-EPI)NonAf 98.54 POC Glucometer 147 Random Glucose 138 H Calcium 8.3 L Phosphorus 2.8 Magnesium 2.1 Total Bilirubin 0.6 AST 31 ALT 60 Alkaline Phosphatase 90 Total Protein 5.3 L Albumin 2.2 L 05/23/19 05/23/19 11:15 13:06 WBC RBC Hgb Hct MCV MCH MCHC RDW Plt Count MPV PTT (Actin FS) Sodium Potassium Chloride Carbon Dioxide Anion Gap BUN Creatinine Est GFR (CKD-EPI)AfAm Est GFR (CKD-EPI)NonAf POC Glucometer 148 176 Random Glucose Calcium Phosphorus Magnesium Total Bilirubin AST ALT Alkaline Phosphatase Total Protein Albumin Active Medications Generic Name Dose Route Start Last Admin Trade Name Freq PRN Reason Stop Dose Admin Amino Acids 30 ml 05/18/19 17:30 05/23/19 09:25 Prosource No Carb Liquid Pkt PO 30 ml BID@0800,1730 [facility] Administration Chlorhexidine Gluconate 1 applic 04/30/19 22:00 05/22/19 21:14 Hibiclens For Decolonization - TP 1 applic HS [facility] Administration Diltiazem HCl 30 mg 05/18/19 18:30 05/23/19 13:31 Cardizem - PO 30 mg TID [facility] Administration Docusate Sodium 200 mg 05/15/19 13:37 05/21/19 10:30 Colace Liquid - PO 200 mg DAILY PRN Administration CONSTIPATION Ferrous Sulfate 300 mg 05/09/19 10:00 05/23/19 10:03 Feosol NGT 300 mg BID [facility] Administration Heparin Sodium (Porcine) 5,000 unit 05/23/19 13:38 Heparin - IVPUSH PRN PRN APTT (SECONDS) <40 Heparin Sodium (Porcine) 1,000 unit 05/23/19 13:38 Heparin - IVPUSH PRN PRN APTT (SECONDS) 40-49 HEPARIN SOD,PORK IN 0.45% NACL 25,000 units in 500 mls @ 20 mls/hr 05/14/19 15 :30 05/22/19 16:40 Heparin-1/2ns 25,000 Units/500 IVPB 1,150 units/hr TITR [facility] 23 mls/hr Administration Protocol 1,000 UNITS/HR Meropenem 500 mg/ Dextrose 100 mls @ 200 mls/hr 05/16/19 18:00 05/23/19 10:29 IVPB 200 mls/hr Q8H-IV [facility] Administration Insulin Aspart 1 vial 05/22/19 17:00 05/23/19 13:09 Novolog Vial Sliding Scale - SQ 3 units Q4H [facility] Administration Protocol Insulin Detemir 10 units 05/23/19 22:00 Levemir Vial SQ HS [facility] Lisinopril 5 mg 02/15/20 10:00 Prinivil NGT DAILY [facility] Metoprolol Tartrate 25 mg 05/16/19 14:00 05/23/19 13:32 Lopressor - GT 25 mg TID [facility] Administration Pantoprazole Sodium 40 mg 05/14/19 10:00 05/23/19 09:26 Protonix Iv IVPUSH 40 mg DAILY [facility] Administration Polyethylene Glycol 17 gm 05/16/19 11:45 05/23/19 11:03 Miralax (For Daily Use) - PO 17 grams DAILY [facility] Administration Scopolamine HBr 1 patch 05/17/19 05:15 05/23/19 05:00 Transderm-Scop - TD 1 patch Q72H [facility] Administration Senna 8.8 mg 05/20/19 22:00 05/22/19 21:14 Senna Oral Solution - PO 8.8 mg HS [facility] Administration Thiamine HCl 200 mg 05/13/19 10:00 05/23/19 09:26 Vitamin B1 Injection - IVPB 200 mg DAILY [facility] Administration ASSESSMENT/PLAN: This is a 53 y/o/m with PMHx of DM2, HFpEF(last EF: 45-50%), 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 #Acute Hypoxic and Hypercapneic Respiratory Failure 2/2 Acute diastolic CHF vs PNA - re-intubated on 05/13 - Duonemyah RQID - Follow serial CXRs - ID consulted (Dr. Garcia) -Sputum cx: ESBL - c/w meropenem (day 6) - vent settings 350/30/10/40 - atrovent nebulizer prn -Cont vent support and wean FiO2 as tolerated. -Pt s/p tracheostomy with Dr. Lawson today #Cardiogenic Shock sec to Acute Diastolic CHF vs Septic Shock - etiology unclear - resolved, off pressors. 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 Pleitez) -Bedside EMG shows no evidence of myopathy, but cannot rule out myopathic process. - EEG(05/16/19): abn EEG, nonspecific finding of diffuse encephalopathy #Atrial Flutter - PO 30 TID cardizem - Digoxin 0.125mg daily - Lopressor 25mg BID [facility] via NGtube, Lopressor 5mg IV Q4H PRN - Cardizem mg IV Q4H PRN -Continue and up-titrate oral diltiazem with plan to wean off drip and unfractionated heparin drip before starting oral regimen (Eliquis 5 mg BID) #RYNE on CKD w/ Hyperkalemia - Renal function improved, Cr now 0.7 - Nephrology Consulted (Dr. Kelley) - will continue free fluid through NG tube - Hold Lisinopril, restart 10mg QD once improved renal function - c/w Nephro feeds - ortiz in place - discontinued lasix drip #DM2 - BGM - ISS - Levemir 10HS, off drip #FEN - free water fluid via NG tube - monitor and replete lytes as needed - Nephro feeds #Prophylaxis - Heparin Drip - Protonix 40 daily #Disposition - Continue ICU monitoring, will speak to social work regarding LTAC placement. Possibly [facility] if family would like. Visit type - Emergency Visit Emergency Visit: Yes ED Registration Date: 04/30/19 Care time: The patient presented to the Emergency Department on the above date and was hospitalized for further evaluation of their emergent condition. - New Patient This patient is new to me today: No - Critical Care Critical Care patient: Yes Total Critical Care Time (in minutes): 35 Critical Care Statement: The care of this patient involved high complexity decision making to prevent further life threatening deterioration of the patient 's condition and/or to evaluate & treat vital organ system(s) failure or risk of failure. - Discharge Referral Referred to [facility] No ATTENDING PHYSICIAN STATEMENT I saw and evaluated the patient. I reviewed the resident's note and discussed the case with the resident. I agree with the resident's findings and plan as documented. SUBJECTIVE: OBJECTIVE: ASSESSMENT AND PLAN:
--- NOTE | 2019-05-23 18:50 | PN ---
Teaching Attending Note Name of Resident: Magnus Lloyd ATTENDING PHYSICIAN STATEMENT I saw and evaluated the patient. I reviewed the resident's note and discussed the case with the resident. I agree with the resident's findings and plan as documented. SUBJECTIVE: Comfortable s/p Tach. Still non-verbal. OBJECTIVE: Afebrile, hemodynamically Stable. Nods occasionally and able to wiggle toes on command. Last Vital Signs Temp Pulse Resp BP Pulse Ox 99.8 F H 102 H 35 H 126/66 100 05/23/19 18:00 05/23/19 18:00 05/23/19 18:00 05/23/19 18:00 05/23/19 10:00 HEENT - s/p Trach. Heart - S1 S2, irregular Lungs - Ventilated via Trach. Good air entry bilaterally Abdomen - High BMI. Soft. Bowel Sounds normal. Extremities - Edema +. Laboratory Results - last 24 hr 05/22/19 05/22/19 05/23/19 20:25 21:08 01:04 WBC RBC Hgb Hct MCV MCH MCHC RDW Plt Count MPV PTT (Actin FS) 50.7 H Sodium Potassium Chloride Carbon Dioxide Anion Gap BUN Creatinine Est GFR (CKD-EPI)AfAm Est GFR (CKD-EPI)NonAf POC Glucometer 203 165 Random Glucose Calcium Phosphorus Magnesium Total Bilirubin AST ALT Alkaline Phosphatase Total Protein Albumin 05/23/19 05/23/19 05/23/19 05:30 05:30 06:34 WBC 6.1 RBC 4.03 Hgb 10.0 L Hct 32.2 L MCV 80.1 MCH 24.9 L MCHC 31.1 L RDW 20.6 H Plt Count 180 D MPV 10.4 PTT (Actin FS) Sodium 142 Potassium 4.3 Chloride 105 Carbon Dioxide 33 H Anion Gap 5 L BUN 43.7 H Creatinine 0.9 Est GFR (CKD-EPI)AfAm 114.21 Est GFR (CKD-EPI)NonAf 98.54 POC Glucometer 147 Random Glucose 138 H Calcium 8.3 L Phosphorus 2.8 Magnesium 2.1 Total Bilirubin 0.6 AST 31 ALT 60 Alkaline Phosphatase 90 Total Protein 5.3 L Albumin 2.2 L 05/23/19 05/23/19 05/23/19 11:15 13:06 17:49 WBC RBC Hgb Hct MCV MCH MCHC RDW Plt Count MPV PTT (Actin FS) Sodium Potassium Chloride Carbon Dioxide Anion Gap BUN Creatinine Est GFR (CKD-EPI)AfAm Est GFR (CKD-EPI)NonAf POC Glucometer 148 176 200 Random Glucose Calcium Phosphorus Magnesium Total Bilirubin AST ALT Alkaline Phosphatase Total Protein Albumin Current Medications Generic Name Dose Route Start Last Admin Trade Name Freq PRN Reason Stop Dose Admin Amino Acids 30 ml 05/18/19 17:30 05/23/19 17:35 Prosource No Carb Liquid Pkt PO 30 ml BID@0800,1730 ELISSA Administration Chlorhexidine Gluconate 1 applic 04/30/19 22:00 05/22/19 21:14 Hibiclens For Decolonization - TP 1 applic HS ELISSA Administration Diltiazem HCl 30 mg 05/18/19 18:30 05/23/19 13:31 Cardizem - PO 30 mg TID ELISSA Administration Docusate Sodium 200 mg 05/15/19 13:37 05/21/19 10:30 Colace Liquid - PO 200 mg DAILY PRN Administration CONSTIPATION Ferrous Sulfate 300 mg 05/09/19 10:00 05/23/19 10:03 Feosol NGT 300 mg BID ELISSA Administration Heparin Sodium (Porcine) 5,000 unit 05/23/19 13:38 Heparin - IVPUSH PRN PRN APTT (SECONDS) <40 Heparin Sodium (Porcine) 1,000 unit 05/23/19 13:38 Heparin - IVPUSH PRN PRN APTT (SECONDS) 40-49 HEPARIN SOD,PORK IN 0.45% NACL 25,000 units in 500 mls @ 20 mls/hr 05/14/19 15 :30 05/23/19 14:15 Heparin-1/2ns 25,000 Units/500 IVPB 1,150 units/hr TITR ELISSA 23 mls/hr Administration Protocol 1,000 UNITS/HR Meropenem 500 mg/ Dextrose 100 mls @ 200 mls/hr 05/16/19 18:00 05/23/19 17:35 IVPB 200 mls/hr Q8H-IV ELISSA Administration Insulin Aspart 1 vial 05/22/19 17:00 05/23/19 17:53 Novolog Vial Sliding Scale - SQ 3 units Q4H ELISSA Administration Protocol Insulin Detemir 10 units 05/23/19 22:00 Levemir Vial SQ HS ELISSA Lisinopril 5 mg 05/24/19 10:00 Prinivil NGT DAILY ELISSA Metoprolol Tartrate 25 mg 05/16/19 14:00 05/23/19 13:32 Lopressor - GT 25 mg TID ELISSA Administration Pantoprazole Sodium 40 mg 05/14/19 10:00 05/23/19 09:26 Protonix Iv IVPUSH 40 mg DAILY ELISSA Administration Polyethylene Glycol 17 gm 05/16/19 11:45 05/23/19 11:03 Miralax (For Daily Use) - PO 17 grams DAILY ELISSA Administration Scopolamine HBr 1 patch 05/17/19 05:15 05/23/19 05:00 Transderm-Scop - TD 1 patch Q72H ELISSA Administration Senna 8.8 mg 05/20/19 22:00 05/22/19 21:14 Senna Oral Solution - PO 8.8 mg HS ELISSA Administration Thiamine HCl 200 mg 05/13/19 10:00 05/23/19 09:26 Vitamin B1 Injection - IVPB 200 mg DAILY ELISSA Administration Home Medications Medication Instructions Recorded Amiodarone HCl 200 mg PO DAILY 04/30/19 Apixaban [Eliquis] 5 mg PO BID 04/30/19 Diltiazem Cd [Cardizem Cd -] 300 mg PO DAILY 04/30/19 Furosemide 40 mg PO BID 04/30/19 Glipizide 10 mg PO DAILY 04/30/19 Lisinopril 10 mg PO DAILY 04/30/19 Metformin HCl [Glucophage] 1,000 mg PO BID 04/30/19 Sitagliptin Phosphate [Januvia] 100 mg PO DAILY 04/30/19 ASSESSMENT AND PLAN: 53 year old male with Obesity, DM 2, Sarcoidosis, Hx systolic CHF (EF 45-50%, now EF normal), EMMY (non-adherent with CPAP), and Atrial Flutter presented with sudden onset of shortness of breath, requiring intubation and mechanical ventilation. 1. Acute Hypoxic and Hypercapneic Respiratory Failure secondary to Acute Diastolic CHF +/- PNA Extubated 05/09/19 and re-intubated 05/13/19 s/p Trach 05/22 IV BID Lasix diuresis stopped Zosyn changed to Meropenem due to ESBL positive Sputum Cx. Continue Bronchodilator Nebs. Steroids tapered off. Rest as per Pulmonary Enteral feeds via NG tube. Needs PEG, IR request placed. 2. Cardiogenic Shock sec to Acute Diastolic CHF vs Septic Shock, etiology unclear - resolved, off pressors. Weaned off Levophed and Vasopressin Blood Cx - Staph epi, likely contaminant. Echo - no vegetations. Repeat Blood Cx neg x 2. On Meropenem for ESBL Pneumonia BP rebounded well - holding up on Metoprolol and Diltiazem. Cardiology following - for out-patient Cardiac MRI to asses degree of sarcoid involvement. 3. Atrial flutter with RVR - better controlled on Metoprolol, Diltiazem, Digoxin stopped. On Heparin drip. Further recommendations as per Cardiology. 4. RYNE with Hyperkalemia - likely secondary to Cardiorenal phenomenon, resolved. Nephrology following. 5. Hypernateremia sec to dehydration/overdiuresis - resolved with IV hydration. 6. DM 2 - Insulin drip transitioned to Detemir/Novolog as per sliding scale. 7. Generalized weakness s/p Intubation/Extubation with progressive weakness and encephalopathy necessitating Re-Intubation ?deconditioning. CT Head negative for acute findings. ?GBS ?Critical Care Myopathy. EMG unable to exclude myopathy. Discussed with Neuro - will need LP via IR to exclude GBS. Discussed with Lisa Fletcher - eeds placement at unit with augmentative communication therapy. 8. Iron Deficiency Anemia - FeSO4 supplementation. No evidence of active blood loss. For out-patient Ix. DVT Px - Heparin SQ GI Px - PPI
[2019-05-23] MEDS: CHLORHEXIDINE GLUCONATE 4% CLEANSER FOR DECOLONIZATION TP SCH (21:15)
[2019-05-23] MEDS: SENNOSIDES 8.8 MG/5 ML BULK BOTTLE PO SCH (21:19)
[2019-05-23] MEDS ORDERED: INSULIN (LEVEMIR) 100 UNITS/ML UNITS SQ SCH (22:00)
[2019-05-23] MEDS ORDERED: DOCUSATE NA 100 MG/10 ML UNIT-DOSE CUPS PO PRN (23:11)
[2019-05-24] MEDS ORDERED: MEROPENEM 500 MG VIAL (RESTRICTED TO ID) IVPB ONE ×3 (00:36→18:00)
[2019-05-24] MEDS ORDERED: DEXTROSE 5%-WATER 100 ML IVPB ONE ×3 (00:37→18:00)
[2019-05-24] MEDS: INSULIN SLIDING SCALE (NOVOLOG) 1 VIAL SQ SCH ×6 (00:54→22:58)
[2019-05-24] MEDS: MEROPENEM 500 MG in DEXTROSE 5%-WATER 100 ML IVPB SCH ×3 (00:59→18:24)
[2019-05-24] MEDS: HEPARIN SOD,PORK IN 0.45% NACL 25,000 UNITS/500 ML INFUS.BAG IVPB SCH (04:54)
[2019-05-24] MEDS ORDERED: PT OWN MED DRAWER 7, Y5N ONE ×3 (05:20→22:40)
[2019-05-24] MEDS: METOPROLOL TARTRATE 25 MG TABLET (FP) GT SCH ×3 (05:28→22:57)
[2019-05-24] MEDS: dilTIAZem HCL 30 MG TABLET (FP) PO SCH ×3 (05:28→23:08)
[2019-05-24 09:24] LABS: HEMOGLOBIN 9.9 GM/dL (11.7-16.9); MCH 25.5 pg (25.7-33.7); MEAN CELL VOLUME 82.2 fl (80-96); MEAN PLT VOLUME 10.5 fl (7.5-11.1); PLATELET COUNT 184 K/MM3 (134-434); RBC 3.89 M/mm3 (4.00-5.60); RDW 20.4 % (11.9-15.9); WHITE BLOOD COUNT 4.8 K/mm3 (4.0-10.0)
[2019-05-24 09:32] LABS: INR 1.05 (0.83-1.09); PROTHROMBIN TIME (PATIENT) 12.4 SEC (9.7-13.0)
[2019-05-24 09:58] LABS: ALBUMIN 2.2 g/dl (3.4-5.0); BILIRUBIN,TOTAL 0.6 mg/dL (0.2-1); BLOOD UREA NITROGEN 35.4 mg/dL (7-18); CALCIUM 8.5 mg/dL (8.5-10.1); CREATININE 0.9 mg/dL (0.55-1.3); PHOSPHOROUS 2.3 mg/dL (2.5-4.9); POTASSIUM 4.1 mmol/L (3.5-5.1); TOT PROT 5.2 g/dl (6.4-8.2)
[2019-05-24] MEDS ORDERED: POLYETHYLENE GLYCOL 3350 119 GM BTL PO SCH (10:00)
[2019-05-24] MEDS ORDERED: LISINOPRIL 5 MG TABLET (FP) NGT SCH ×2 (10:00)
[2019-05-24] MEDS: THIAMINE HCL 200 MG/2 ML VIAL IVPB SCH (10:17)
[2019-05-24] MEDS: PANTOPRAZOLE SODIUM 40 MG VIAL IVPUSH SCH (10:17)
[2019-05-24] MEDS: FERROUS SO4 300 MG/5 ML ORAL SOLN UNIT DOSE CUPS NGT SCH ×2 (10:17→22:57)
[2019-05-24] MEDS: AMINO ACIDS/PROTEIN HYDROLYS 30 ML LIQUID.PKT PO SCH ×2 (10:17→18:24)
--- NOTE | 2019-05-24 11:49 | PN ---
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 (short form) - Note 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: Awake on AC Mode of vent. Able to follow simple commands. Vent: lung protective ventilation settings. Intake & Output 05/21/19 05/22/19 05/23/19 05/24/19 23:59 23:59 23:59 23:59 Intake Total 4407 3447 766 Output Total 900 1411 1900 300 Balance 3507 2036 -1134 -300 Weight 256 lb 6.4 oz 266 lb 12.8 oz 266 lb 12.8 oz Last Vital Signs Temp Pulse Resp BP Pulse Ox 100 F H 78 30 H 117/72 99 05/24/19 04:48 05/24/19 08:15 05/24/19 08:16 05/24/19 04:48 05/24/19 08:15 Active Medications Amino Acids (Prosource No Carb Liquid Pkt) 30 ml PO BID@0800,1730 [facility] Last Admin: 05/24/19 10:17 Dose: 30 ml Diltiazem HCl (Cardizem -) 30 mg PO TID [facility] Last Admin: 05/24/19 05:28 Dose: 30 mg Docusate Sodium (Colace Liquid -) 200 mg PO DAILY PRN PRN Reason: CONSTIPATION Ferrous Sulfate (Feosol) 300 mg NGT BID [facility] Last Admin: 05/24/19 10:17 Dose: 300 mg Heparin Sodium (Porcine) (Heparin -) 5,000 unit IVPUSH PRN PRN PRN Reason: APTT (SECONDS) <40 Heparin Sodium (Porcine) (Heparin -) 1,000 unit IVPUSH PRN PRN PRN Reason: Heparin HEPARIN SOD,PORK IN 0.45% NACL (Heparin-1/2ns 25,000 Units/500) 25,000 units in 500 mls @ 20 mls/hr IVPB TITR ELISSA; Protocol Last Titration: 05/24/19 10:27 Dose: 1,150 units/hr, 23 mls/hr Meropenem 500 mg/ Dextrose 100 mls @ 200 mls/hr IVPB Q8H-IV ELISSA Last Admin: 05/24/19 10:20 Dose: 200 mls/hr Insulin Aspart (Novolog Vial Sliding Scale -) 1 vial SQ Q4H [facility]; Protocol Last Admin: 05/24/19 10:27 Dose: 3 units Insulin Detemir (Levemir Vial) 10 units SQ HS ELISSA Lisinopril (Prinivil) 5 mg NGT DAILY [facility] Last Admin: 05/24/19 10:17 Dose: 5 mg Metoprolol Tartrate (Lopressor -) 25 mg GT TID [facility] Last Admin: 05/24/19 05:28 Dose: 25 mg Pantoprazole Sodium (Protonix Iv) 40 mg IVPUSH DAILY [facility] Last Admin: 05/24/19 10:17 Dose: 40 mg Polyethylene Glycol (Miralax (For Daily Use) -) 17 gm PO DAILY [facility] Last Admin: 05/24/19 10:21 Dose: 17 gm Scopolamine HBr (Transderm-Scop -) 1 patch TD Q72H [facility] Senna (Senna Oral Solution -) 8.8 mg PO HS [facility] Thiamine HCl (Vitamin B1 Injection -) 200 mg IVPB DAILY [facility] Last Admin: 05/24/19 10:17 Dose: 200 mg GEN: Vented, awake, able to follow simple commands PULM: scattered rhonchi B/L CV: S1 S2, irreg/irreg ABD: + BS, S/S N/T N/D X4Q EXT: + Pulses, WWPX4, + edema HERB GROWER: Awake, global deficit Laboratory Results - last 24 hr 05/23/19 05/23/19 05/23/19 13:06 17:49 21:32 WBC RBC Hgb Hct MCV MCH MCHC RDW Plt Count MPV PT with INR INR PTT (Actin FS) Sodium Potassium Chloride Carbon Dioxide Anion Gap BUN Creatinine Est GFR (CKD-EPI)AfAm Est GFR (CKD-EPI)NonAf POC Glucometer 176 200 209 Random Glucose Calcium Phosphorus Magnesium Total Bilirubin AST ALT Alkaline Phosphatase Total Protein Albumin 05/24/19 05/24/19 05/24/19 00:52 04:51 06:00 WBC RBC Hgb Hct MCV MCH MCHC RDW Plt Count MPV PT with INR 12.40 INR 1.05 PTT (Actin FS) Sodium Potassium Chloride Carbon Dioxide Anion Gap BUN Creatinine Est GFR (CKD-EPI)AfAm Est GFR (CKD-EPI)NonAf POC Glucometer 214 194 Random Glucose Calcium Phosphorus Magnesium Total Bilirubin AST ALT Alkaline Phosphatase Total Protein Albumin 05/24/19 05/24/19 05/24/19 06:00 06:00 06:00 WBC 4.8 RBC 3.89 L Hgb 9.9 L Hct 32.0 L MCV 82.2 MCH 25.5 L MCHC 31.0 L RDW 20.4 H Plt Count 184 MPV 10.5 PT with INR INR PTT (Actin FS) 51.9 H Sodium 145 Potassium 4.1 Chloride 107 Carbon Dioxide 32 Anion Gap 6 L BUN 35.4 H Creatinine 0.9 Est GFR (CKD-EPI)AfAm 114.21 Est GFR (CKD-EPI)NonAf 98.54 POC Glucometer Random Glucose 180 H Calcium 8.5 Phosphorus 2.3 L Magnesium 2.0 Total Bilirubin 0.6 AST 35 ALT 56 Alkaline Phosphatase 87 Total Protein 5.2 L Albumin 2.2 L 05/24/19 10:25 WBC RBC Hgb Hct MCV MCH MCHC RDW Plt Count MPV PT with INR INR PTT (Actin FS) Sodium Potassium Chloride Carbon Dioxide Anion Gap BUN Creatinine Est GFR (CKD-EPI)AfAm Est GFR (CKD-EPI)NonAf POC Glucometer 187 Random Glucose Calcium Phosphorus Magnesium Total Bilirubin AST ALT Alkaline Phosphatase Total Protein Albumin ASSESS: Acute Hypoxic and Hypercapneic Respiratory Failure Pneumonia Gram Positive Bacteremia Septic Shock Volume Overload ARDS Lactic Acidosis Hyperkalemia Acute Kidney Injury Atrial Flutter with RVR HTN DM Anemia PLAN: - Vent settings were adjusted - Nebs PRN - ABX per ID - Rate Control - AC - Monitor I's & O's - Replete e-lytes prn - FSS - TFs - DVT/GI prophylaxis - GI ppx Dr Maya
--- NOTE | 2019-05-24 12:04 | PN ---
Physical Exam: SUBJECTIVE: Patient seen and examined at bedside. Temp of 100 today. OBJECTIVE: Vital Signs Period Temp Pulse Resp BP Sys/[place] Pulse Ox Last 24 Hr 99.4 F-100 F 78-103 30-40 105-126/62-76 98-100 GENERAL: The patient is sedated. Minimally responsive to sternal rub. HEAD: Normal with no signs of trauma. ENT: Ears normal, nares patent, oropharynx clear without exudates, moist mucous membranes. Trach placed, no erythema, discharge or signs of infection. LUNGS: Mechanical ventilation. Scattered ronchi. No wheezes or crackles. HEART: Regular rate and rhythm, S1, S2 without murmur, rub or gallop. ABDOMEN: Soft, nontender, nondistended, globose abdomen. EXTREMITIES: 2+ pulses,warm, well-perfused, no edema. NEUROLOGICAL: opens his eyes moves his lips to speak but not audible, pt wiggles his toes to command but not his upper extremity. SKIN: Warm, dry, normal turgor, no rashes or lesions noted Laboratory Results - last 24 hr 05/23/19 05/23/19 05/23/19 13:06 17:49 21:32 WBC RBC Hgb Hct MCV MCH MCHC RDW Plt Count MPV PT with INR INR PTT (Actin FS) Sodium Potassium Chloride Carbon Dioxide Anion Gap BUN Creatinine Est GFR (CKD-EPI)AfAm Est GFR (CKD-EPI)NonAf POC Glucometer 176 200 209 Random Glucose Calcium Phosphorus Magnesium Total Bilirubin AST ALT Alkaline Phosphatase Total Protein Albumin 05/24/19 05/24/19 05/24/19 00:52 04:51 06:00 WBC RBC Hgb Hct MCV MCH MCHC RDW Plt Count MPV PT with INR 12.40 INR 1.05 PTT (Actin FS) Sodium Potassium Chloride Carbon Dioxide Anion Gap BUN Creatinine Est GFR (CKD-EPI)AfAm Est GFR (CKD-EPI)NonAf POC Glucometer 214 194 Random Glucose Calcium Phosphorus Magnesium Total Bilirubin AST ALT Alkaline Phosphatase Total Protein Albumin 05/24/19 05/24/19 05/24/19 06:00 06:00 06:00 WBC 4.8 RBC 3.89 L Hgb 9.9 L Hct 32.0 L MCV 82.2 MCH 25.5 L MCHC 31.0 L RDW 20.4 H Plt Count 184 MPV 10.5 PT with INR INR PTT (Actin FS) 51.9 H Sodium 145 Potassium 4.1 Chloride 107 Carbon Dioxide 32 Anion Gap 6 L BUN 35.4 H Creatinine 0.9 Est GFR (CKD-EPI)AfAm 114.21 Est GFR (CKD-EPI)NonAf 98.54 POC Glucometer Random Glucose 180 H Calcium 8.5 Phosphorus 2.3 L Magnesium 2.0 Total Bilirubin 0.6 AST 35 ALT 56 Alkaline Phosphatase 87 Total Protein 5.2 L Albumin 2.2 L 05/24/19 10:25 WBC RBC Hgb Hct MCV MCH MCHC RDW Plt Count MPV PT with INR INR PTT (Actin FS) Sodium Potassium Chloride Carbon Dioxide Anion Gap BUN Creatinine Est GFR (CKD-EPI)AfAm Est GFR (CKD-EPI)NonAf POC Glucometer 187 Random Glucose Calcium Phosphorus Magnesium Total Bilirubin AST ALT Alkaline Phosphatase Total Protein Albumin Active Medications Generic Name Dose Route Start Last Admin Trade Name Freq PRN Reason Stop Dose Admin Amino Acids 30 ml 05/24/19 08:00 05/24/19 10:17 Prosource No Carb Liquid Pkt PO 30 ml BID@0800,1730 ELISSA Administration Diltiazem HCl 30 mg 05/24/19 06:00 05/24/19 05:28 Cardizem - PO 30 mg TID ELISSA Administration Docusate Sodium 200 mg 05/23/19 23:11 Colace Liquid - PO DAILY PRN CONSTIPATION Ferrous Sulfate 300 mg 05/24/19 10:00 05/24/19 10:17 Feosol NGT 300 mg BID ELISSA Administration Heparin Sodium (Porcine) 5,000 unit 05/23/19 13:38 Heparin - IVPUSH PRN PRN APTT (SECONDS) <40 Heparin Sodium (Porcine) 1,000 unit 05/23/19 23:11 Heparin - IVPUSH PRN PRN Heparin HEPARIN SOD,PORK IN 0.45% NACL 25,000 units in 500 mls @ 20 mls/hr 05/23/19 23 :11 05/24/19 10:27 Heparin-1/2ns 25,000 Units/500 IVPB 1,150 units/hr TITR ELISSA 23 mls/hr Titration Protocol 1,000 UNITS/HR Meropenem 500 mg/ Dextrose 100 mls @ 200 mls/hr 05/24/19 02:00 05/24/19 10:20 IVPB 200 mls/hr Q8H-IV ELISSA Administration Insulin Aspart 1 vial 05/24/19 01:00 05/24/19 10:27 Novolog Vial Sliding Scale - SQ 3 units Q4H ELISSA Administration Protocol Insulin Detemir 10 units 05/24/19 22:00 Levemir Vial SQ HS ELISSA Lisinopril 5 mg 05/24/19 10:00 05/24/19 10:17 Prinivil NGT 5 mg DAILY ELISSA Administration Metoprolol Tartrate 25 mg 05/24/19 06:00 05/24/19 05:28 Lopressor - GT 25 mg TID ELISSA Administration Pantoprazole Sodium 40 mg 05/24/19 10:00 05/24/19 10:17 Protonix Iv IVPUSH 40 mg DAILY ELISSA Administration Polyethylene Glycol 17 gm 05/24/19 10:00 05/24/19 10:21 Miralax (For Daily Use) - PO 17 gm DAILY ELISSA Administration Scopolamine HBr 1 patch 05/26/19 05:15 Transderm-Scop - TD Q72H ELISSA Senna 8.8 mg 05/24/19 22:00 Senna Oral Solution - PO HS ELISSA Thiamine HCl 200 mg 05/24/19 10:00 05/24/19 10:17 Vitamin B1 Injection - IVPB 200 mg DAILY ELISSA Administration ASSESSMENT/PLAN: This is a 53 y/o/m with PMHx of DM2, HFpEF(last EF: 45-50%), 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 #Acute Hypoxic and Hypercapneic Respiratory Failure 2/2 Acute diastolic CHF vs PNA - re-intubated on 05/13 - Hans RQID - ID consulted (Dr. Garcia) -Sputum cx: ESBL - c/w meropenem (day 7), temp of 100 today will continue to monitor. - vent settings 350/30/10/40 - atrovent nebulizer prn -Cont vent support and wean FiO2 as tolerated. -Pt s/p tracheostomy with Dr. Lawson today #Cardiogenic Shock sec to Acute Diastolic CHF vs Septic Shock - etiology unclear - resolved, off pressors. - ECHO - EF of 55-60%, no significant abnormalities noted, no vegetations - [facility] is consulted for cardiology #Altered mental status and weakness - Critical care induced myopathy - Neuro Consulted (Dr. Pleitez), Dr. Fuentes production grip coverage stating would need LP to further eval if pt has GBS -Bedside EMG shows no evidence of myopathy, but cannot rule out myopathic process. - EEG(05/16/19): abn EEG, nonspecific finding of diffuse encephalopathy #Atrial Flutter - PO 30 TID cardizem - Digoxin 0.125mg daily - Lopressor 25mg BID ELISSA via NGtube, Lopressor 5mg IV Q4H PRN - Cardizem mg IV Q4H PRN -Continue and up-titrate oral diltiazem with plan to wean off drip and unfractionated heparin drip before starting oral regimen (Eliquis 5 mg BID) #RYNE on CKD w/ Hyperkalemia - Renal function improved, Cr now 0.7 - Nephrology Consulted (Dr. Kelley), sodium stable - will continue free fluid through NG tube - restarted 10mg QD given his improved renal function - c/w Nephro feeds - ortiz in place, good urine output #DM2 - BGM shanged to ACHS - ISS ACHS - Levemir 10HS #FEN - free water fluid via NG tube - monitor and replete lytes as needed - Nephro feeds #Prophylaxis - Heparin Drip - Protonix 40 daily Dispo: Pt up for transfer to LTAC. Visit type - Emergency Visit Emergency Visit: Yes ED Registration Date: 04/30/19 Care time: The patient presented to the Emergency Department on the above date and was hospitalized for further evaluation of their emergent condition. - New Patient This patient is new to me today: No - Critical Care Critical Care patient: No - Discharge Referral Referred to [facility] Med P.C.: No Physician Referral: Laci Wells MD ([facility]) ATTENDING PHYSICIAN STATEMENT I saw and evaluated the patient. I reviewed the resident's note and discussed the case with the resident. I agree with the resident's findings and plan as documented. SUBJECTIVE: OBJECTIVE: ASSESSMENT AND PLAN:
--- NOTE | 2019-05-24 12:21 | PN ---
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 (short form) - Note 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: Neurology - History of Present Illness History of Present Illness: Covering for Dr. Pleitez 53-year-old right-handed man with multiple medical problem including diabetes mellitus coronary artery disease osteoarthritis chronic low back pain history of diastolic CHF who presented previously to [facility] to the emergency room with the chief complaint of shortness of breath. Hospital course was complicated by respiratory distress that required intubation patient was intubated and admitted to the medical ICU for a while patient was under the care of multiple specialists including hardwood floor finisher and critical care. No report of any recent travel. More recently, this admission for shortness of breath with respiratory acidosis on ABG not feeling himself. Patient required intubation again chest x-ray was done. Neurology was called due to pupilary asymetry. Consult note reviewed from Dr. Pleitez. Hospitalist asked me to evaluate further regarding ongoing decline and assess to eval for Guillan Elwood. Patient remains bedbound without participation in confrontation testing. Does have minimal reflexes speaking against likelihood for guillan barre. EMG from 04/30 reviewed and showed axonal neuropathy but could not rule out myopathy. For more definitive diagnosis, LP would be needed which would require fluoro guidance due to body habitus. Active Medications Amino Acids (Prosource No Carb Liquid Pkt) 30 ml PO BID@0800,1730 [facility] Last Admin: 05/24/19 10:17 Dose: 30 ml Diltiazem HCl (Cardizem -) 30 mg PO TID [facility] Last Admin: 05/24/19 05:28 Dose: 30 mg Docusate Sodium (Colace Liquid -) 200 mg PO DAILY PRN PRN Reason: CONSTIPATION Ferrous Sulfate (Feosol) 300 mg NGT BID [facility] Last Admin: 05/24/19 10:17 Dose: 300 mg Heparin Sodium (Porcine) (Heparin -) 5,000 unit IVPUSH PRN PRN PRN Reason: APTT (SECONDS) <40 Heparin Sodium (Porcine) (Heparin -) 1,000 unit IVPUSH PRN PRN PRN Reason: Heparin HEPARIN SOD,PORK IN 0.45% NACL (Heparin-1/2ns 25,000 Units/500) 25,000 units in 500 mls @ 20 mls/hr IVPB TITR [facility]; Protocol Last Titration: 05/24/19 10:27 Dose: 1,150 units/hr, 23 mls/hr Meropenem 500 mg/ Dextrose 100 mls @ 200 mls/hr IVPB Q8H-IV [facility] Last Admin: 05/24/19 10:20 Dose: 200 mls/hr Insulin Aspart (Novolog Vial Sliding Scale -) 1 vial SQ Q4H [facility]; Protocol Last Admin: 05/24/19 10:27 Dose: 3 units Insulin Detemir (Levemir Vial) 10 units SQ HS [facility] Lisinopril (Prinivil) 5 mg NGT DAILY [facility] Last Admin: 05/24/19 10:17 Dose: 5 mg Metoprolol Tartrate (Lopressor -) 25 mg GT TID [facility] Last Admin: 05/24/19 05:28 Dose: 25 mg Pantoprazole Sodium (Protonix Iv) 40 mg IVPUSH DAILY [facility] Last Admin: 05/24/19 10:17 Dose: 40 mg Polyethylene Glycol (Miralax (For Daily Use) -) 17 gm PO DAILY [facility] Last Admin: 05/24/19 10:21 Dose: 17 gm Scopolamine HBr (Transderm-Scop -) 1 patch TD Q72H [facility] Senna (Senna Oral Solution -) 8.8 mg PO HS [facility] Thiamine HCl (Vitamin B1 Injection -) 200 mg IVPB DAILY [facility] Last Admin: 05/24/19 10:17 Dose: 200 mg Physical Exam-Neuro Vital Signs: Vital Signs Period Temp Pulse Resp BP Sys/[place] Pulse Ox Last 24 Hr 99.4 F-100 F 78-103 30-40 105-126/62-76 98-100 - Neuro Exam awake, eyes open, not following commands pupils equal and reactive to light not participating in confrontation testing Minimal movements seen trace reflexes in patella CBCD WBC 4.8 K/mm3 (4.0-10.0) 05/24/19 06:00 RBC 3.89 M/mm3 (4.00-5.60) L 05/24/19 06:00 Hgb 9.9 GM/dL (11.7-16.9) L 05/24/19 06:00 Hct 32.0 % (35.4-49) L 05/24/19 06:00 MCV 82.2 fl (80-96) 05/24/19 06:00 MCHC 31.0 g/dl (32.0-35.9) L 05/24/19 06:00 RDW 20.4 % (11.9-15.9) H 05/24/19 06:00 Plt Count 184 K/MM3 (134-434) 05/24/19 06:00 MPV 10.5 fl (7.5-11.1) 05/24/19 06:00 CMP Sodium 145 mmol/L (136-145) 05/24/19 06:00 Potassium 4.1 mmol/L (3.5-5.1) 05/24/19 06:00 Chloride 107 mmol/L (98-107) 05/24/19 06:00 Carbon Dioxide 32 mmol/L (21-32) 05/24/19 06:00 Anion Gap 6 MMOL/L (8-16) L 05/24/19 06:00 BUN 35.4 mg/dL (7-18) H 05/24/19 06:00 Creatinine 0.9 mg/dL (0.55-1.3) 05/24/19 06:00 Random Glucose 180 mg/dL (74-106) H 05/24/19 06:00 Calcium 8.5 mg/dL (8.5-10.1) 05/24/19 06:00 Total Bilirubin 0.6 mg/dL (0.2-1) 05/24/19 06:00 AST 35 U/L (15-37) 05/24/19 06:00 ALT 56 U/L (13-61) 05/24/19 06:00 Alkaline Phosphatase 87 U/L (45-117) 05/24/19 06:00 Total Protein 5.2 g/dl (6.4-8.2) L 05/24/19 06:00 Albumin 2.2 g/dl (3.4-5.0) L 05/24/19 06:00 CARDIAC ENZYMES Creatine Kinase 179 U/L (26-308) 05/11/19 05:55 Troponin I < 0.02 ng/ml (0.00-0.05) 05/05/19 05:30 ASSESSMENT/PLAN 53-year-old right-handed man with multiple medical problem including diabetes mellitus coronary artery disease osteoarthritis chronic low back pain history of diastolic CHF who presented previously to [facility] to the emergency room with the chief complaint of shortness of breath. Hospital course was complicated by respiratory distress that required intubation patient was intubated and admitted to the medical ICU for a while patient was under the care of multiple specialists including hardwood floor finisher and critical care. No report of any recent travel. More recently, this admission for shortness of breath with respiratory acidosis on ABG not feeling himself. Patient required intubation again chest x-ray was done. Neurology was called due to pupilary asymetry. Consult note reviewed from Dr. Pleitez. Hospitalist asked me to evaluate further regarding ongoing decline and assess to eval for Guillan Elwood. Patient remains bedbound without participation in confrontation testing. Does have minimal reflexes speaking against likelihood for guillan barre. EMG from 04/30 reviewed and showed axonal neuropathy but could not rule out myopathy. For more definitive diagnosis, LP would be needed which would require fluoro guidance due to body habitus. Unsure if this can be done with ventilator. Dr. Pleitez to return after weekend, will inform him of update.
--- NOTE | 2019-05-24 15:05 | PN ---
Teaching Attending Note Name of Resident: Magnus Lloyd ATTENDING PHYSICIAN STATEMENT I saw and evaluated the patient. I reviewed the resident's note and discussed the case with the resident. I agree with the resident's findings and plan as documented. SUBJECTIVE: Comfortable s/p Tach. Still non-verbal. Eyes open, making eye contact. OBJECTIVE: Tmax 100, hemodynamically Stable. Nods to questions occasionally and able to wiggle toes on command. Last Vital Signs Temp Pulse Resp BP Pulse Ox 99 F 99 H 26 H 126/64 99 05/24/19 14:00 05/24/19 10:00 05/24/19 14:00 05/24/19 14:00 05/24/19 08:15 HEENT - s/p Trach. JACKIE. Heart - S1 S2, irregular Lungs - Ventilated via Trach. Good air entry bilaterally Abdomen - High BMI. Soft. Bowel Sounds normal. Extremities - Edema +. Laboratory Results - last 24 hr 05/23/19 05/23/19 05/24/19 17:49 21:32 00:52 WBC RBC Hgb Hct MCV MCH MCHC RDW Plt Count MPV PT with INR INR PTT (Actin FS) Sodium Potassium Chloride Carbon Dioxide Anion Gap BUN Creatinine Est GFR (CKD-EPI)AfAm Est GFR (CKD-EPI)NonAf POC Glucometer 200 209 214 Random Glucose Calcium Phosphorus Magnesium Total Bilirubin AST ALT Alkaline Phosphatase Total Protein Albumin 05/24/19 05/24/19 05/24/19 04:51 06:00 06:00 WBC 4.8 RBC 3.89 L Hgb 9.9 L Hct 32.0 L MCV 82.2 MCH 25.5 L MCHC 31.0 L RDW 20.4 H Plt Count 184 MPV 10.5 PT with INR 12.40 INR 1.05 PTT (Actin FS) Sodium Potassium Chloride Carbon Dioxide Anion Gap BUN Creatinine Est GFR (CKD-EPI)AfAm Est GFR (CKD-EPI)NonAf POC Glucometer 194 Random Glucose Calcium Phosphorus Magnesium Total Bilirubin AST ALT Alkaline Phosphatase Total Protein Albumin 05/24/19 05/24/19 05/24/19 06:00 06:00 10:25 WBC RBC Hgb Hct MCV MCH MCHC RDW Plt Count MPV PT with INR INR PTT (Actin FS) 51.9 H Sodium 145 Potassium 4.1 Chloride 107 Carbon Dioxide 32 Anion Gap 6 L BUN 35.4 H Creatinine 0.9 Est GFR (CKD-EPI)AfAm 114.21 Est GFR (CKD-EPI)NonAf 98.54 POC Glucometer 187 Random Glucose 180 H Calcium 8.5 Phosphorus 2.3 L Magnesium 2.0 Total Bilirubin 0.6 AST 35 ALT 56 Alkaline Phosphatase 87 Total Protein 5.2 L Albumin 2.2 L Current Medications Generic Name Dose Route Start Last Admin Trade Name Freq PRN Reason Stop Dose Admin Amino Acids 30 ml 05/24/19 08:00 05/24/19 10:17 Prosource No Carb Liquid Pkt PO 30 ml BID@0800,1730 [facility] Administration Diltiazem HCl 30 mg 05/24/19 06:00 05/24/19 14:03 Cardizem - PO 30 mg TID [facility] Administration Docusate Sodium 200 mg 05/23/19 23:11 Colace Liquid - PO DAILY PRN CONSTIPATION Ferrous Sulfate 300 mg 05/24/19 10:00 05/24/19 10:17 Feosol NGT 300 mg BID [facility] Administration Heparin Sodium (Porcine) 5,000 unit 05/23/19 13:38 Heparin - IVPUSH PRN PRN APTT (SECONDS) <40 Heparin Sodium (Porcine) 1,000 unit 05/23/19 23:11 Heparin - IVPUSH PRN PRN Heparin HEPARIN SOD,PORK IN 0.45% NACL 25,000 units in 500 mls @ 20 mls/hr 05/23/19 23 :11 05/24/19 10:27 Heparin-1/2ns 25,000 Units/500 IVPB 1,150 units/hr TITR [facility] 23 mls/hr Titration Protocol 1,000 UNITS/HR Meropenem 500 mg/ Dextrose 100 mls @ 200 mls/hr 05/24/19 02:00 05/24/19 10:20 IVPB 200 mls/hr Q8H-IV [facility] Administration Insulin Aspart 1 vial 05/24/19 12:45 05/24/19 11:30 Novolog Vial Sliding Scale - SQ 3 units ACHS [facility] Administration Protocol Insulin Detemir 10 units 05/24/19 22:00 Levemir Vial SQ HS [facility] Lisinopril 10 mg 05/24/19 13:22 Prinivil NGT DAILY [facility] Metoprolol Tartrate 25 mg 05/24/19 06:00 05/24/19 14:03 Lopressor - GT 25 mg TID [facility] Administration Pantoprazole Sodium 40 mg 05/24/19 10:00 05/24/19 10:17 Protonix Iv IVPUSH 40 mg DAILY [facility] Administration Polyethylene Glycol 17 gm 05/24/19 10:00 05/24/19 10:21 Miralax (For Daily Use) - PO 17 gm DAILY [facility] Administration Scopolamine HBr 1 patch 05/26/19 05:15 Transderm-Scop - TD Q72H [facility] Senna 8.8 mg 05/24/19 22:00 Senna Oral Solution - PO HS [facility] Thiamine HCl 200 mg 05/24/19 10:00 05/24/19 10:17 Vitamin B1 Injection - IVPB 200 mg DAILY [facility] Administration Home Medications Medication Instructions Recorded Amiodarone HCl 200 mg PO DAILY 04/30/19 Apixaban [Eliquis] 5 mg PO BID 04/30/19 Diltiazem Cd [Cardizem Cd -] 300 mg PO DAILY 04/30/19 Furosemide 40 mg PO BID 04/30/19 Glipizide 10 mg PO DAILY 04/30/19 Lisinopril 10 mg PO DAILY 04/30/19 Metformin HCl [Glucophage] 1,000 mg PO BID 04/30/19 Sitagliptin Phosphate [Januvia] 100 mg PO DAILY 04/30/19 ASSESSMENT AND PLAN: 53 year old male with Obesity, DM 2, Sarcoidosis, Hx systolic CHF (EF 45-50%, now EF normal), EMMY (non-adherent with CPAP), and Atrial Flutter presented with sudden onset of shortness of breath, requiring intubation and mechanical ventilation. 1. Acute Hypoxic and Hypercapneic Respiratory Failure secondary to Acute Diastolic CHF +/- PNA Extubated 05/09/19 and re-intubated 05/13/19 s/p Trach 05/22 IV BID Lasix diuresis stopped Zosyn changed to Meropenem due to ESBL positive Sputum Cx. Continue Bronchodilator Nebs. Steroids tapered off. Rest as per Pulmonary Enteral feeds via NG tube. Needs PEG, IR request placed. 2. Cardiogenic Shock sec to Acute Diastolic CHF vs Septic Shock, etiology unclear - resolved, off pressors. Weaned off Levophed and Vasopressin Blood Cx - Staph epi, likely contaminant. Echo - no vegetations. Repeat Blood Cx neg x 2. On Meropenem for ESBL Pneumonia BP rebounded well - holding up on Metoprolol and Diltiazem. Lisinopril resumed. Cardiology following - for out-patient Cardiac MRI to asses degree of sarcoid involvement. 3. Atrial flutter with RVR - better controlled on Metoprolol, Diltiazem. Digoxin stopped. On Heparin drip. Further recommendations as per Cardiology. Can transition to Eliquis after PEG placement. 4. RYNE with Hyperkalemia - likely secondary to Cardiorenal phenomenon, resolved. Nephrology following. Lisinopril resumed. 5. Hypernateremia sec to dehydration/overdiuresis - resolved with IV hydration. 6. DM 2 - Insulin drip transitioned to Detemir/Novolog as per sliding scale. 7. Generalized weakness s/p Intubation/Extubation with progressive weakness and encephalopathy necessitating Re-Intubation ?deconditioning. CT Head negative for acute findings. ?GBS ?Critical Care Myopathy. EMG unable to exclude myopathy. Discussed with Neuro - will need LP via IR to exclude GBS. Discussed with Lisa Fletcher - needs placement at unit with augmentative communication therapy. 8. Iron Deficiency Anemia - FeSO4 supplementation. No evidence of active blood loss. For out-patient Ix. DVT Px - Heparin SQ GI Px - PPI
[2019-05-24] MEDS ORDERED: SENNOSIDES 8.8 MG/5 ML BULK BOTTLE PO SCH (22:00)
[2019-05-24] MEDS ORDERED: CHLORHEXIDINE GLUCONATE 4% CLEANSER FOR DECOLONIZATION TP SCH (22:00)
[2019-05-24] MEDS ORDERED: DOCUSATE NA 100 MG/10 ML UNIT-DOSE CUPS GT PRN (22:44)
[2019-05-24] MEDS: INSULIN (LEVEMIR) 100 UNITS/ML UNITS SQ SCH (22:57)
[2019-05-24] MEDS: SENNOSIDES 8.8 MG/5 ML BULK BOTTLE GT SCH (22:59)
[2019-05-25] MEDS ORDERED: DEXTROSE 5%-WATER 100 ML IVPB ONE ×3 (02:46→17:59)
[2019-05-25] MEDS ORDERED: MEROPENEM 500 MG VIAL (RESTRICTED TO ID) IVPB ONE ×3 (02:46→17:59)
[2019-05-25] MEDS: MEROPENEM 500 MG in DEXTROSE 5%-WATER 100 ML IVPB SCH ×3 (02:52→18:34)
--- NOTE | 2019-05-25 03:00 | PN ---
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 (short form) - Note 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: Nurse called at 2:50 AM for minimal bleed surrounding trachea, with pinkish sputum. Nurse informed to take culture of sputum given febrile overnight. Blood cultures, urine cultures, cxr sent. Heparin drip held at this time, await day team instructions regarding continuing it at another time. Pt otherwise hemodynamically stable.
[2019-05-25] MEDS ORDERED: PT OWN MED DRAWER 7, Y5N ONE ×5 (06:58→22:05)
[2019-05-25] MEDS: METOPROLOL TARTRATE 25 MG TABLET (FP) GT SCH ×3 (07:04→22:26)
[2019-05-25] MEDS: INSULIN SLIDING SCALE (NOVOLOG) 1 VIAL SQ SCH ×4 (07:04→22:20)
[2019-05-25] MEDS: dilTIAZem HCL 30 MG TABLET (FP) PO SCH ×3 (07:54→22:26)
[2019-05-25] MEDS: HEPARIN SOD,PORK IN 0.45% NACL 25,000 UNITS/500 ML INFUS.BAG IVPB SCH (07:54)
[2019-05-25 09:18] LABS: BASO % 0.6 % (0-2.0); EOS % 0.8 % (0-4.5); HEMATOCRIT 31.3 % (35.4-49); HEMOGLOBIN 9.6 GM/dL (11.7-16.9); LYMPH % 6.4 % (8-40); MCH 24.9 pg (25.7-33.7); MCHC 30.7 g/dl (32.0-35.9); MEAN CELL VOLUME 81.1 fl (80-96); MEAN PLT VOLUME 10.3 fl (7.5-11.1); MONO % 8.7 % (3.8-10.2); NEUT % 83.5 % (42.8-82.8); PLATELET COUNT 204 K/MM3 (134-434); RBC 3.86 M/mm3 (4.00-5.60); RDW 20.8 % (11.9-15.9); WHITE BLOOD COUNT 4.7 K/mm3 (4.0-10.0)
[2019-05-25 09:49] LABS: ALBUMIN 2.2 g/dl (3.4-5.0); BILIRUBIN,TOTAL 0.6 mg/dL (0.2-1); BLOOD UREA NITROGEN 32.6 mg/dL (7-18); CALCIUM 8.2 mg/dL (8.5-10.1); TOT PROT 5.1 g/dl (6.4-8.2)
[2019-05-25] MEDS: PANTOPRAZOLE SODIUM 40 MG VIAL IVPUSH SCH (09:55)
[2019-05-25] MEDS: ACETAMINOPHEN 325 MG TABLET (FP) PO PRN ×2 (09:56→16:39)
[2019-05-25] MEDS: THIAMINE HCL 200 MG/2 ML VIAL IVPB SCH (10:20)
[2019-05-25] MEDS: FERROUS SO4 300 MG/5 ML ORAL SOLN UNIT DOSE CUPS NGT SCH ×2 (10:22→22:19)
[2019-05-25] MEDS: LISINOPRIL 10 MG TABLET (FP) NGT SCH (10:22)
[2019-05-25] MEDS: AMINO ACIDS/PROTEIN HYDROLYS 30 ML LIQUID.PKT GT SCH ×2 (10:22→16:44)
[2019-05-25] MEDS: POLYETHYLENE GLYCOL 3350 119 GM BTL GT SCH (10:25)
--- NOTE | 2019-05-25 11:44 | PN ---
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 (short form) - Note 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: Awake on AC Mode of vent. Noted to have blood around Trach: it is dry and there is no active bleed noted. Able to follow simple commands. Intake & Output 05/22/19 05/23/19 05/24/19 05/25/19 23:59 23:59 23:59 23:59 Intake Total 3447 766 261 Output Total 1411 1900 1050 780 Balance 2036 -1134 -1050 -519 Weight 266 lb 12.8 oz 266 lb 12.8 oz Last Vital Signs Temp Pulse Resp BP Pulse Ox 100.1 F H 81 18 106/60 98 05/25/19 06:00 05/25/19 08:17 05/25/19 08:17 05/25/19 06:00 05/25/19 08:17 Active Medications Acetaminophen (Tylenol -) 650 mg PO Q6H PRN PRN Reason: Fever Or Pain Last Admin: 05/25/19 09:56 Dose: 650 mg Amino Acids (Prosource No Carb Liquid Pkt) 30 ml GT BID@0800,1730 [facility] Last Admin: 05/25/19 10:22 Dose: 30 ml Diltiazem HCl (Cardizem -) 30 mg PO TID [facility] Last Admin: 05/25/19 07:54 Dose: Not Given Docusate Sodium (Colace Liquid -) 200 mg GT DAILY PRN PRN Reason: CONSTIPATION Ferrous Sulfate (Feosol) 300 mg NGT BID [facility] Last Admin: 05/25/19 10:22 Dose: 300 mg Heparin Sodium (Porcine) (Heparin -) 5,000 unit IVPUSH PRN PRN PRN Reason: APTT (SECONDS) <40 Heparin Sodium (Porcine) (Heparin -) 1,000 unit IVPUSH PRN PRN PRN Reason: Heparin HEPARIN SOD,PORK IN 0.45% NACL (Heparin-1/2ns 25,000 Units/500) 25,000 units in 500 mls @ 20 mls/hr IVPB TITR [facility]; Protocol Last Admin: 05/25/19 07:54 Dose: Not Given Meropenem 500 mg/ Dextrose 100 mls @ 200 mls/hr IVPB Q8H-IV [facility] Last Admin: 05/25/19 10:21 Dose: 200 mls/hr Insulin Aspart (Novolog Vial Sliding Scale -) 1 vial SQ ACHS [facility]; Protocol Last Admin: 05/25/19 07:04 Dose: 9 units Insulin Detemir (Levemir Vial) 10 units SQ HS [facility] Last Admin: 05/24/19 22:57 Dose: 10 units Lisinopril (Prinivil) 10 mg NGT DAILY [facility] Last Admin: 05/25/19 10:22 Dose: 10 mg Metoprolol Tartrate (Lopressor -) 25 mg GT TID [facility] Last Admin: 05/25/19 07:04 Dose: 25 mg Pantoprazole Sodium (Protonix Iv) 40 mg IVPUSH DAILY [facility] Last Admin: 05/25/19 09:55 Dose: 40 mg Polyethylene Glycol (Miralax (For Daily Use) -) 17 gm GT DAILY [facility] Last Admin: 05/25/19 10:25 Dose: 17 gm Scopolamine HBr (Transderm-Scop -) 1 patch TD Q72H [facility] Senna (Senna Oral Solution -) 8.8 mg GT HS [facility] Last Admin: 05/24/19 22:59 Dose: 8.8 mg Thiamine HCl (Vitamin B1 Injection -) 200 mg IVPB DAILY [facility] Last Admin: 05/25/19 10:20 Dose: 200 mg GEN: Vented, awake, intermittently able to follow simple commands PULM: scattered rhonchi B/L CV: S1 S2, irreg/irreg ABD: + BS, S/S N/T N/D X4Q EXT: + Pulses, WWPX4, + edema SHANK BREAKER: Awake, global deficit Laboratory Results - last 24 hr 05/24/19 05/24/19 05/25/19 18:23 22:53 06:00 WBC 4.7 RBC 3.86 L Hgb 9.6 L Hct 31.3 L MCV 81.1 MCH 24.9 L MCHC 30.7 L RDW 20.8 H Plt Count 204 MPV 10.3 Absolute Neuts (auto) 3.9 Neutrophils % 83.5 H Lymphocytes % 6.4 L D Monocytes % 8.7 Eosinophils % 0.8 Basophils % 0.6 Nucleated RBC % 0 PTT (Actin FS) Sodium Potassium Chloride Carbon Dioxide Anion Gap BUN Creatinine Est GFR (CKD-EPI)AfAm Est GFR (CKD-EPI)NonAf POC Glucometer 321 280 Random Glucose Calcium Total Bilirubin AST ALT Alkaline Phosphatase Total Protein Albumin 05/25/19 05/25/19 05/25/19 06:00 06:38 07:20 WBC RBC Hgb Hct MCV MCH MCHC RDW Plt Count MPV Absolute Neuts (auto) Neutrophils % Lymphocytes % Monocytes % Eosinophils % Basophils % Nucleated RBC % PTT (Actin FS) 30.4 Sodium 144 Potassium 4.0 Chloride 107 Carbon Dioxide 32 Anion Gap 5 L BUN 32.6 H Creatinine 1.0 Est GFR (CKD-EPI)AfAm 100.55 Est GFR (CKD-EPI)NonAf 86.76 POC Glucometer 287 Random Glucose 304 H Calcium 8.2 L Total Bilirubin 0.6 AST 28 ALT 53 Alkaline Phosphatase 94 Total Protein 5.1 L Albumin 2.2 L ASSESS: Acute Hypoxic and Hypercapneic Respiratory Failure Pneumonia Gram Positive Bacteremia Septic Shock Volume Overload ARDS Lactic Acidosis Hyperkalemia Acute Kidney Injury Atrial Flutter with RVR HTN DM Anemia PLAN: - Monitor for bleeding - Maintain current vent settings - Nebs PRN - ABX per ID - Rate Control - AC - Monitor I's & O's - FSS - TFs - DVT/GI prophylaxis - GI ppx Dr Maya
--- NOTE | 2019-05-25 11:56 | PN ---
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 (short form) - Note 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: Chief Complaint: Events noted, notes reviewed, no change in status History of Present Illness: Seen and examined. Events noted, notes reviewed, no change in status Current Medications: Current Medications Acetaminophen (Tylenol -) 650 mg PO Q6H PRN PRN Reason: Fever Or Pain Last Admin: 05/25/19 09:56 Dose: 650 mg Amino Acids (Prosource No Carb Liquid Pkt) 30 ml GT BID@0800,1730 [facility] Last Admin: 05/25/19 10:22 Dose: 30 ml Diltiazem HCl (Cardizem -) 30 mg PO TID [facility] Last Admin: 05/25/19 07:54 Dose: Not Given Docusate Sodium (Colace Liquid -) 200 mg GT DAILY PRN PRN Reason: CONSTIPATION Ferrous Sulfate (Feosol) 300 mg NGT BID [facility] Last Admin: 05/25/19 10:22 Dose: 300 mg Heparin Sodium (Porcine) (Heparin -) 5,000 unit IVPUSH PRN PRN PRN Reason: APTT (SECONDS) <40 Heparin Sodium (Porcine) (Heparin -) 1,000 unit IVPUSH PRN PRN PRN Reason: Heparin HEPARIN SOD,PORK IN 0.45% NACL (Heparin-1/2ns 25,000 Units/500) 25,000 units in 500 mls @ 20 mls/hr IVPB TITR [facility]; Protocol Last Admin: 05/25/19 07:54 Dose: Not Given Meropenem 500 mg/ Dextrose 100 mls @ 200 mls/hr IVPB Q8H-IV [facility] Last Admin: 05/25/19 10:21 Dose: 200 mls/hr Insulin Aspart (Novolog Vial Sliding Scale -) 1 vial SQ ACHS [facility]; Protocol Last Admin: 05/25/19 07:04 Dose: 9 units Insulin Detemir (Levemir Vial) 10 units SQ HS [facility] Last Admin: 05/24/19 22:57 Dose: 10 units Lisinopril (Prinivil) 10 mg NGT DAILY [facility] Last Admin: 05/25/19 10:22 Dose: 10 mg Metoprolol Tartrate (Lopressor -) 25 mg GT TID [facility] Last Admin: 05/25/19 07:04 Dose: 25 mg Pantoprazole Sodium (Protonix Iv) 40 mg IVPUSH DAILY [facility] Last Admin: 05/25/19 09:55 Dose: 40 mg Polyethylene Glycol (Miralax (For Daily Use) -) 17 gm GT DAILY [facility] Last Admin: 05/25/19 10:25 Dose: 17 gm Scopolamine HBr (Transderm-Scop -) 1 patch TD Q72H [facility] Senna (Senna Oral Solution -) 8.8 mg GT HS [facility] Last Admin: 05/24/19 22:59 Dose: 8.8 mg Thiamine HCl (Vitamin B1 Injection -) 200 mg IVPB DAILY [facility] Last Admin: 05/25/19 10:20 Dose: 200 mg Review of Systems Unable to obtain - Objective Vital Signs: Last Vital Signs Temp Pulse Resp BP Pulse Ox 100.1 F H 81 18 106/60 99 05/25/19 06:00 05/25/19 08:17 05/25/19 11:52 05/25/19 06:00 05/25/19 11:52 Intake & Output 05/22/19 05/23/19 05/24/19 05/25/19 23:59 23:59 23:59 23:59 Intake Total 3447 766 261 Output Total 1411 1900 1050 780 Balance 2036 -1134 -1050 -519 Weight 266 lb 12.8 oz 266 lb 12.8 oz Neck: Supple negative JVD no bruit Cardiovascular: S1 S2 Irregularly Irregular Respiratory: Diminished Breath Sounds Bilaterally Gastrointestinal: Soft Benign Normal Bowel Sounds Ext: Edema Bilaterally Labs: CBC, BMP 05/25/19 06:00 05/25/19 06:00 ABG Results ABG pH 7.39 (7.35-7.45) 05/17/19 11:00 ABG pCO2 at Pt Temp 53.2 mmHg (35-45) H 05/17/19 11:00 ABG pO2 at Pt Temp 67.3 mmHg (80-100) L 05/17/19 11:00 ABG HCO3 31.6 mmol/L (22-27) H 05/17/19 11:00 ABG O2 Sat (Measured) 92.3 % (95-98) L 05/17/19 11:00 ABG O2 Content 13.5 % vol 05/17/19 11:00 ABG Base Excess 6.0 meq/l (-2-2) H 05/17/19 11:00 Assessment/Plan: ASSESSMENT: 1. Acute hypoxic and hypercapneic respiratory failure on mechanical ventilation post tracheostomy 2. Pneumonia complicated by septic shock, clinically resolved 3. Persistent atrial flutter/paroxysmal atrial fibrillation [id number] score of 0 on A/C Heparin 4. Diastolic LV dysfunction with clinical class 0 NYHA classification LV failure 5. Sarcoidosis confirmed by skin biopsy, R/O cardiac involvement- outpatient evaluation 6. DM 7. 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 Acute on CKD 9. Anemia PLAN: 1. Ventilator management as per the pulmonary team 2. Antibiotics as per the primary team 3. Continue B-Blockers/Lopressor to assist with rate control/hemodynamics permitting 4. Continue Cardizem to assist with rate control/hemodynamics permitting 5. Continue Lisinopril/hemodynamics permitting 6. Continue A/C with Heparin and eventual change to DOAS's/Eliquis unless additional procedure are planned and not contraindicated 7. Diuretics as needed Maycol King MD
[2019-05-25 12:02] LABS: ANISOCYTOSIS 1+; MACROCYTOSIS 0; PLATELET ESTIMATE NORMAL
--- NOTE | 2019-05-25 14:26 | PN ---
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 (short form) - Note 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: SUBJECTIVE: Comfortable s/p Tach. Still non-verbal. Eyes open, making eye contact. OBJECTIVE: Fever overnight - Tmax 101, hemodynamically Stable. Nods to questions occasionally and able to wiggle toes on command. Last Vital Signs Temp Pulse Resp BP Pulse Ox 100.3 F H 81 18 125/70 99 05/25/19 08:00 05/25/19 08:17 05/25/19 11:52 05/25/19 08:00 05/25/19 11:52 HEENT - s/p Trach. JACKIE. Some blood tinged fluid stains on trach fastening device. Heart - S1 S2, irregular Lungs - Ventilated via Trach. Good air entry bilaterally Abdomen - High BMI. Soft. Bowel Sounds normal. Extremities - Edema +. Neuro - JACKIE. Follows simple commands. Generalized weakness, wiggles R sided toes/foot. Laboratory Results - last 24 hr 05/24/19 05/24/19 05/25/19 18:23 22:53 06:00 WBC 4.7 RBC 3.86 L Hgb 9.6 L Hct 31.3 L MCV 81.1 MCH 24.9 L MCHC 30.7 L RDW 20.8 H Plt Count 204 MPV 10.3 Absolute Neuts (auto) 3.9 Neutrophils % 83.5 H Lymphocytes % 6.4 L D Monocytes % 8.7 Eosinophils % 0.8 Basophils % 0.6 Nucleated RBC % 0 Hypochromia 0 Platelet Estimate Normal Polychromasia 1+ Anisocytosis 1+ Microcytosis 0 Macrocytosis 0 PTT (Actin FS) Sodium Potassium Chloride Carbon Dioxide Anion Gap BUN Creatinine Est GFR (CKD-EPI)AfAm Est GFR (CKD-EPI)NonAf POC Glucometer 321 280 Random Glucose Calcium Total Bilirubin AST ALT Alkaline Phosphatase Total Protein Albumin 05/25/19 05/25/19 05/25/19 06:00 06:38 07:20 WBC RBC Hgb Hct MCV MCH MCHC RDW Plt Count MPV Absolute Neuts (auto) Neutrophils % Lymphocytes % Monocytes % Eosinophils % Basophils % Nucleated RBC % Hypochromia Platelet Estimate Polychromasia Anisocytosis Microcytosis Macrocytosis PTT (Actin FS) 30.4 Sodium 144 Potassium 4.0 Chloride 107 Carbon Dioxide 32 Anion Gap 5 L BUN 32.6 H Creatinine 1.0 Est GFR (CKD-EPI)AfAm 100.55 Est GFR (CKD-EPI)NonAf 86.76 POC Glucometer 287 Random Glucose 304 H Calcium 8.2 L Total Bilirubin 0.6 AST 28 ALT 53 Alkaline Phosphatase 94 Total Protein 5.1 L Albumin 2.2 L 05/25/19 11:53 WBC RBC Hgb Hct MCV MCH MCHC RDW Plt Count MPV Absolute Neuts (auto) Neutrophils % Lymphocytes % Monocytes % Eosinophils % Basophils % Nucleated RBC % Hypochromia Platelet Estimate Polychromasia Anisocytosis Microcytosis Macrocytosis PTT (Actin FS) Sodium Potassium Chloride Carbon Dioxide Anion Gap BUN Creatinine Est GFR (CKD-EPI)AfAm Est GFR (CKD-EPI)NonAf POC Glucometer 274 Random Glucose Calcium Total Bilirubin AST ALT Alkaline Phosphatase Total Protein Albumin Current Medications Generic Name Dose Route Start Last Admin Trade Name Freq PRN Reason Stop Dose Admin Acetaminophen 650 mg 05/25/19 00:30 05/25/19 09:56 Tylenol - PO 650 mg Q6H PRN Administration Fever Or Pain Amino Acids 30 ml 05/24/19 22:46 05/25/19 10:22 Prosource No Carb Liquid Pkt GT 30 ml BID@0800,1730 [facility] Administration Diltiazem HCl 30 mg 05/24/19 06:00 05/25/19 07:54 Cardizem - PO Not Given TID [facility] Docusate Sodium 200 mg 05/24/19 22:44 Colace Liquid - GT DAILY PRN CONSTIPATION Ferrous Sulfate 300 mg 05/24/19 10:00 05/25/19 10:22 Feosol NGT 300 mg BID ELISSA Administration Heparin Sodium (Porcine) 5,000 unit 05/23/19 13:38 Heparin - IVPUSH PRN PRN APTT (SECONDS) <40 Heparin Sodium (Porcine) 1,000 unit 05/23/19 23:11 Heparin - IVPUSH PRN PRN Heparin HEPARIN SOD,PORK IN 0.45% NACL 25,000 units in 500 mls @ 20 mls/hr 05/23/19 23 :11 05/25/19 07:54 Heparin-1/2ns 25,000 Units/500 IVPB Not Given TITR [facility] Protocol 1,000 UNITS/HR Meropenem 500 mg/ Dextrose 100 mls @ 200 mls/hr 05/24/19 02:00 05/25/19 10:21 IVPB 200 mls/hr Q8H-IV ELISSA Administration Insulin Aspart 1 vial 05/24/19 12:45 05/25/19 11:57 Novolog Vial Sliding Scale - SQ 9 units ACHS ELISSA Administration Protocol Insulin Detemir 10 units 05/24/19 22:00 05/24/19 22:57 Levemir Vial SQ 10 units HS ELISSA Administration Lisinopril 10 mg 05/24/19 13:22 05/25/19 10:22 Prinivil NGT 10 mg DAILY ELISSA Administration Metoprolol Tartrate 25 mg 05/24/19 06:00 05/25/19 07:04 Lopressor - GT 25 mg TID ELISSA Administration Pantoprazole Sodium 40 mg 05/24/19 10:00 05/25/19 09:55 Protonix Iv IVPUSH 40 mg DAILY ELISSA Administration Polyethylene Glycol 17 gm 05/24/19 22:49 05/25/19 10:25 Miralax (For Daily Use) - GT 17 gm DAILY ELISSA Administration Scopolamine HBr 1 patch 05/26/19 05:15 Transderm-Scop - TD Q72H ELISSA Senna 8.8 mg 05/24/19 22:49 05/24/19 22:59 Senna Oral Solution - GT 8.8 mg HS ELISSA Administration Thiamine HCl 200 mg 05/24/19 10:00 05/25/19 10:20 Vitamin B1 Injection - IVPB 200 mg DAILY ELISSA Administration Home Medications Medication Instructions Recorded Amiodarone HCl 200 mg PO DAILY 04/30/19 Apixaban [Eliquis] 5 mg PO BID 04/30/19 Diltiazem Cd [Cardizem Cd -] 300 mg PO DAILY 04/30/19 Furosemide 40 mg PO BID 04/30/19 Glipizide 10 mg PO DAILY 04/30/19 Lisinopril 10 mg PO DAILY 04/30/19 Metformin HCl [Glucophage] 1,000 mg PO BID 04/30/19 Sitagliptin Phosphate [Januvia] 100 mg PO DAILY 04/30/19 ASSESSMENT AND PLAN: 53 year old male with Obesity, DM 2, Sarcoidosis, Hx systolic CHF (EF 45-50%, now EF normal), EMMY (non-adherent with CPAP), and Atrial Flutter presented with sudden onset of shortness of breath, requiring intubation and mechanical ventilation. 1. Acute Hypoxic and Hypercapneic Respiratory Failure secondary to Acute Diastolic CHF +/- PNA Extubated 05/09/19 and re-intubated 05/13/19 s/p Trach 05/22 IV BID Lasix diuresis stopped Zosyn changed to Meropenem due to ESBL positive Sputum Cx. Now spiking fevers again. Re-cultured, results pending. CXR - no acute/new changes. Continue Bronchodilator Nebs. Steroids tapered off. Rest as per Pulmonary Enteral feeds via NG tube. Needs PEG, IR request placed. ID to re-evaluate for fever 2. Cardiogenic Shock sec to Acute Diastolic CHF vs Septic Shock, etiology unclear - resolved, off pressors. Weaned off Levophed and Vasopressin Blood Cx - Staph epi, likely contaminant. Echo - no vegetations. Repeat Blood Cx neg x 2. Another set Blood Cx pending due to recurrence of fever. On Meropenem for ESBL Pneumonia BP rebounded well - holding up on Metoprolol and Diltiazem. Lisinopril resumed. Cardiology following - for out-patient Cardiac MRI to asses degree of sarcoid involvement. ID to re-evaluate for fever. 3. Atrial flutter with RVR - better controlled on Metoprolol, Diltiazem. Digoxin stopped. Heparin drip held due to reported bleeding around trach site overnight pending re-eval by CT Sx. Further recommendations as per Cardiology. Can transition to Eliquis after PEG placement if no further bleeding. 4. RYNE with Hyperkalemia - likely secondary to Cardiorenal phenomenon, resolved. Nephrology following. Lisinopril resumed. 5. Hypernateremia sec to dehydration/overdiuresis - resolved with IV hydration. 6. DM 2 - Insulin drip transitioned to Detemir/Novolog as per sliding scale. 7. Generalized weakness s/p Intubation/Extubation with progressive weakness and encephalopathy necessitating Re-Intubation ?deconditioning. CT Head negative for acute findings. ?GBS ?Critical Care Myopathy. EMG unable to exclude myopathy. Discussed with Neuro - will need LP via IR to exclude GBS. LP request placed. Discussed with Lisa Fletcher - needs placement at unit with augmentative communication therapy. 8. Iron Deficiency Anemia - FeSO4 supplementation. No evidence of active blood loss. For out-patient Ix. DVT Px - Heparin drip held for now. SCDs. GI Px - PPI Visit type - Emergency Visit Emergency Visit: Yes ED Registration Date: 04/30/19 Care time: The patient presented to the Emergency Department on the above date and was hospitalized for further evaluation of their emergent condition. - New Patient This patient is new to me today: No - Critical Care Critical Care patient: No - Discharge Referral Referred to [facility] Med P.C.: No
[2019-05-25] MEDS ORDERED: SODIUM CHLORIDE 500 ML IV STA (15:14)
[2019-05-25] MEDS: SENNOSIDES 8.8 MG/5 ML BULK BOTTLE GT SCH (22:19)
[2019-05-25] MEDS: INSULIN (LEVEMIR) 100 UNITS/ML UNITS SQ SCH (22:29)
[2019-05-26] MEDS ORDERED: DEXTROSE 5%-WATER 100 ML IVPB ONE ×3 (00:36→16:24)
[2019-05-26] MEDS ORDERED: MEROPENEM 500 MG VIAL (RESTRICTED TO ID) IVPB ONE ×3 (00:36→16:24)
[2019-05-26] MEDS: MEROPENEM 500 MG in DEXTROSE 5%-WATER 100 ML IVPB SCH ×3 (01:53→17:17)
[2019-05-26] MEDS: dilTIAZem HCL 30 MG TABLET (FP) PO SCH ×3 (05:45→22:17)
[2019-05-26] MEDS: METOPROLOL TARTRATE 25 MG TABLET (FP) GT SCH ×3 (05:45→22:17)
[2019-05-26] MEDS: SCOPOLAMINE HYDROBROMIDE 1 PATCH PATCH.TD72 TD SCH (05:46)
[2019-05-26] MEDS: INSULIN SLIDING SCALE (NOVOLOG) 1 VIAL SQ SCH ×4 (06:09→22:01)
[2019-05-26 08:09] LABS: BLOOD UREA NITROGEN 38.2 mg/dL (7-18); CALCIUM 8.4 mg/dL (8.5-10.1); POTASSIUM 4.1 mmol/L (3.5-5.1)
[2019-05-26 08:12] LABS: BASO % 0.4 % (0-2.0); EOS % 1.3 % (0-4.5); HEMATOCRIT 30.7 % (35.4-49); HEMOGLOBIN 9.6 GM/dL (11.7-16.9); LYMPH % 4.9 % (8-40); MCH 25.4 pg (25.7-33.7); MCHC 31.2 g/dl (32.0-35.9); MEAN CELL VOLUME 81.4 fl (80-96); MEAN PLT VOLUME 9.4 fl (7.5-11.1); MONO % 7.1 % (3.8-10.2); NEUT % 86.3 % (42.8-82.8); PLATELET COUNT 185 K/MM3 (134-434); RBC 3.77 M/mm3 (4.00-5.60); RDW 20.1 % (11.9-15.9); WHITE BLOOD COUNT 5.2 K/mm3 (4.0-10.0)
[2019-05-26] MEDS ORDERED: PT OWN MED DRAWER 7, Y5N ONE ×2 (08:45→14:04)
[2019-05-26] MEDS: PANTOPRAZOLE SODIUM 40 MG VIAL IVPUSH SCH (09:02)
[2019-05-26] MEDS: THIAMINE HCL 200 MG/2 ML VIAL IVPB SCH (09:02)
[2019-05-26] MEDS: LISINOPRIL 10 MG TABLET (FP) NGT SCH (09:04)
[2019-05-26] MEDS: FERROUS SO4 300 MG/5 ML ORAL SOLN UNIT DOSE CUPS NGT SCH ×2 (09:05→22:17)
[2019-05-26] MEDS: ACETAMINOPHEN 325 MG TABLET (FP) PO PRN (09:05)
[2019-05-26] MEDS: AMINO ACIDS/PROTEIN HYDROLYS 30 ML LIQUID.PKT GT SCH ×2 (09:07→17:17)
[2019-05-26] MEDS: POLYETHYLENE GLYCOL 3350 119 GM BTL GT SCH (09:08)
--- NOTE | 2019-05-26 10:51 | PN ---
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 (short form) - Note 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: Awake on AC Mode of vent. No blood noted around Trach site. Able to follow simple commands. Low grade temps. Intake & Output 05/23/19 05/24/19 05/25/19 05/26/19 23:59 23:59 23:59 23:59 Intake Total 766 1861 1000 Output Total 1900 1050 1480 Balance -1134 -7373 492 8339 Weight 266 lb 12.8 oz Last Vital Signs Temp Pulse Resp BP Pulse Ox 98.7 F 83 18 120/66 98 05/26/19 06:00 05/26/19 08:12 05/26/19 08:12 05/26/19 06:00 05/26/19 08:12 Active Medications Acetaminophen (Tylenol -) 650 mg PO Q6H PRN PRN Reason: Fever Or Pain Last Admin: 05/26/19 09:05 Dose: 650 mg Amino Acids (Prosource No Carb Liquid Pkt) 30 ml GT BID@0800,1730 [facility] Last Admin: 05/26/19 09:07 Dose: 30 ml Diltiazem HCl (Cardizem -) 30 mg PO TID [facility] Last Admin: 05/26/19 05:45 Dose: 30 mg Docusate Sodium (Colace Liquid -) 200 mg GT DAILY PRN PRN Reason: CONSTIPATION Ferrous Sulfate (Feosol) 300 mg NGT BID [facility] Last Admin: 05/26/19 09:05 Dose: 300 mg Heparin Sodium (Porcine) (Heparin -) 5,000 unit IVPUSH PRN PRN PRN Reason: APTT (SECONDS) <40 Heparin Sodium (Porcine) (Heparin -) 1,000 unit IVPUSH PRN PRN PRN Reason: Heparin HEPARIN SOD,PORK IN 0.45% NACL (Heparin-1/2ns 25,000 Units/500) 25,000 units in 500 mls @ 20 mls/hr IVPB TITR [facility]; Protocol Last Admin: 05/25/19 07:54 Dose: Not Given Meropenem 500 mg/ Dextrose 100 mls @ 200 mls/hr IVPB Q8H-IV [facility] Last Admin: 05/26/19 09:05 Dose: 200 mls/hr Insulin Aspart (Novolog Vial Sliding Scale -) 1 vial SQ ACHS [facility]; Protocol Last Admin: 05/26/19 06:09 Dose: 9 units Insulin Detemir (Levemir Vial) 10 units SQ HS [facility] Last Admin: 05/25/19 22:29 Dose: 10 units Lisinopril (Prinivil) 10 mg NGT DAILY [facility] Last Admin: 05/26/19 09:04 Dose: 10 mg Metoprolol Tartrate (Lopressor -) 25 mg GT TID [facility] Last Admin: 05/26/19 05:45 Dose: 25 mg Pantoprazole Sodium (Protonix Iv) 40 mg IVPUSH DAILY [facility] Last Admin: 05/26/19 09:02 Dose: 40 mg Polyethylene Glycol (Miralax (For Daily Use) -) 17 gm GT DAILY [facility] Last Admin: 05/26/19 09:08 Dose: Not Given Scopolamine HBr (Transderm-Scop -) 1 patch TD Q72H [facility] Last Admin: 05/26/19 05:46 Dose: 1 patch Senna (Senna Oral Solution -) 8.8 mg GT HS [facility] Last Admin: 05/25/19 22:19 Dose: 8.8 mg Thiamine HCl (Vitamin B1 Injection -) 200 mg IVPB DAILY [facility] Last Admin: 05/26/19 09:02 Dose: 200 mg GEN: Vented, awake, able to follow simple commands PULM: scattered rhonchi B/L CV: S1 S2, irreg/irreg ABD: + BS, S/S N/T N/D X4Q EXT: + Pulses, WWPX4, + edema LABORATORY ADMINISTRATIVE DIRECTOR: Awake, global deficit Laboratory Results - last 24 hr 05/25/19 05/25/19 05/25/19 06:00 11:53 17:19 WBC RBC Hgb Hct MCV MCH MCHC RDW Plt Count MPV Absolute Neuts (auto) Neutrophils % Lymphocytes % Monocytes % Eosinophils % Basophils % Nucleated RBC % Hypochromia 0 Platelet Estimate Normal Polychromasia 1+ Anisocytosis 1+ Microcytosis 0 Macrocytosis 0 PTT (Actin FS) Sodium Potassium Chloride Carbon Dioxide Anion Gap BUN Creatinine Est GFR (CKD-EPI)AfAm Est GFR (CKD-EPI)NonAf POC Glucometer 274 309 Random Glucose Calcium 05/25/19 05/26/19 05/26/19 22:11 05:40 06:45 WBC RBC Hgb Hct MCV MCH MCHC RDW Plt Count MPV Absolute Neuts (auto) Neutrophils % Lymphocytes % Monocytes % Eosinophils % Basophils % Nucleated RBC % Hypochromia Platelet Estimate Polychromasia Anisocytosis Microcytosis Macrocytosis PTT (Actin FS) 43.4 H Sodium Potassium Chloride Carbon Dioxide Anion Gap BUN Creatinine Est GFR (CKD-EPI)AfAm Est GFR (CKD-EPI)NonAf POC Glucometer 310 269 Random Glucose Calcium 05/26/19 05/26/19 06:45 06:45 WBC 5.2 RBC 3.77 L Hgb 9.6 L Hct 30.7 L MCV 81.4 MCH 25.4 L MCHC 31.2 L RDW 20.1 H Plt Count 185 MPV 9.4 Absolute Neuts (auto) 4.5 Neutrophils % 86.3 H Lymphocytes % 4.9 L D Monocytes % 7.1 Eosinophils % 1.3 Basophils % 0.4 Nucleated RBC % 0 Hypochromia Platelet Estimate Polychromasia Anisocytosis Microcytosis Macrocytosis PTT (Actin FS) Sodium 146 H Potassium 4.1 Chloride 108 H Carbon Dioxide 32 Anion Gap 5 L BUN 38.2 H Creatinine 1.0 Est GFR (CKD-EPI)AfAm 100.55 Est GFR (CKD-EPI)NonAf 86.76 POC Glucometer Random Glucose 294 H Calcium 8.4 L ASSESS: Acute Hypoxic and Hypercapneic Respiratory Failure Pneumonia Gram Positive Bacteremia Septic Shock Volume Overload ARDS Lactic Acidosis Hyperkalemia Acute Kidney Injury Atrial Flutter with RVR HTN DM Anemia PLAN: - Monitor for bleeding - Maintain current vent settings - Nebs PRN - ABX per ID - Rate Control - Monitor I's & O's - FSS - TFs - DVT/GI prophylaxis - For PEG Dr Maya
--- NOTE | 2019-05-26 11:17 | PN ---
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 Some increased motor- now moving both feet,can shrug shoulders slightly, some y/n headshake, opening mouth protruding tongue. Bilateral facial weakness U&nable to use eye gaze for yes/no- vision? but starting to respond intermittently with headshake/nod. Per PMD-Generalized weakness s/p Intubation/Extubation with progressive weakness and encephalopathy necessitating Re-Intubation ?deconditioning. CT Head negative for acute findings. ?GBS ?Critical Care Myopathy. EMG unable to exclude myopathy. Discussed with Neuro - will need LP via IR to exclude GBS. LP request placed. Discussed with Lisa Fletcher - needs placement at unit with augmentative communication therapy. Suggest [facility] for rehabilitation/augmentation communication Pending LP- r/o GBS Plan is for PEG tm'w
[2019-05-26] MEDS ORDERED: INSULIN (LEVEMIR) 100 UNITS/ML UNITS SQ SCH (13:01)
--- NOTE | 2019-05-26 13:01 | PN ---
Teaching Attending Note Name of Resident: Caren Gordon ATTENDING PHYSICIAN STATEMENT I saw and evaluated the patient. I reviewed the resident's note and discussed the case with the resident. I agree with the resident's findings and plan as documented. SUBJECTIVE: Comfortable s/p Trach. Still non-verbal. Eyes open, making eye contact. OBJECTIVE: Fever again overnight - Tmax 100.8, hemodynamically Stable. Nods to questions occasionally and able to wiggle toes and attempts to make fists on command. Last Vital Signs Temp Pulse Resp BP Pulse Ox 99.4 F 83 18 118/73 98 05/26/19 11:48 05/26/19 08:12 05/26/19 08:12 05/26/19 08:00 05/26/19 08:12 HEENT - s/p Trach. JACKIE. Some blood tinged fluid stains on trach fastening device. No active bleeding. Heart - S1 S2, irregular Lungs - Ventilated via Trach. Good air entry bilaterally Abdomen - High BMI. Soft. Bowel Sounds normal. Extremities - Edema +. Neuro - JACKIE. Follows simple commands. Generalized weakness, wiggles R sided toes/foot, attempts to make fists on request. Laboratory Results - last 24 hr 05/25/19 05/25/19 05/26/19 17:19 22:11 05:40 WBC RBC Hgb Hct MCV MCH MCHC RDW Plt Count MPV Absolute Neuts (auto) Neutrophils % Lymphocytes % Monocytes % Eosinophils % Basophils % Nucleated RBC % PTT (Actin FS) Sodium Potassium Chloride Carbon Dioxide Anion Gap BUN Creatinine Est GFR (CKD-EPI)AfAm Est GFR (CKD-EPI)NonAf POC Glucometer 309 310 269 Random Glucose Calcium Stool Occult Blood 05/26/19 05/26/19 05/26/19 06:15 06:45 06:45 WBC 5.2 RBC 3.77 L Hgb 9.6 L Hct 30.7 L MCV 81.4 MCH 25.4 L MCHC 31.2 L RDW 20.1 H Plt Count 185 MPV 9.4 Absolute Neuts (auto) 4.5 Neutrophils % 86.3 H Lymphocytes % 4.9 L D Monocytes % 7.1 Eosinophils % 1.3 Basophils % 0.4 Nucleated RBC % 0 PTT (Actin FS) 43.4 H Sodium Potassium Chloride Carbon Dioxide Anion Gap BUN Creatinine Est GFR (CKD-EPI)AfAm Est GFR (CKD-EPI)NonAf POC Glucometer Random Glucose Calcium Stool Occult Blood Trace 05/26/19 05/26/19 06:45 11:40 WBC RBC Hgb Hct MCV MCH MCHC RDW Plt Count MPV Absolute Neuts (auto) Neutrophils % Lymphocytes % Monocytes % Eosinophils % Basophils % Nucleated RBC % PTT (Actin FS) Sodium 146 H Potassium 4.1 Chloride 108 H Carbon Dioxide 32 Anion Gap 5 L BUN 38.2 H Creatinine 1.0 Est GFR (CKD-EPI)AfAm 100.55 Est GFR (CKD-EPI)NonAf 86.76 POC Glucometer 248 Random Glucose 294 H Calcium 8.4 L Stool Occult Blood Current Medications Generic Name Dose Route Start Last Admin Trade Name Freq PRN Reason Stop Dose Admin Acetaminophen 650 mg 05/25/19 00:30 05/26/19 09:05 Tylenol - PO 650 mg Q6H PRN Administration Fever Or Pain Amino Acids 30 ml 05/24/19 22:46 05/26/19 09:07 Prosource No Carb Liquid Pkt GT 30 ml BID@0800,1730 ELISSA Administration Diltiazem HCl 30 mg 05/24/19 06:00 05/26/19 05:45 Cardizem - PO 30 mg TID ELISSA Administration Docusate Sodium 200 mg 05/24/19 22:44 Colace Liquid - GT DAILY PRN CONSTIPATION Ferrous Sulfate 300 mg 05/24/19 10:00 05/26/19 09:05 Feosol NGT 300 mg BID ELISSA Administration Heparin Sodium (Porcine) 5,000 unit 05/23/19 13:38 Heparin - IVPUSH PRN PRN APTT (SECONDS) <40 Heparin Sodium (Porcine) 1,000 unit 05/23/19 23:11 Heparin - IVPUSH PRN PRN Heparin HEPARIN SOD,PORK IN 0.45% NACL 25,000 units in 500 mls @ 20 mls/hr 05/23/19 23 :11 05/25/19 07:54 Heparin-1/2ns 25,000 Units/500 IVPB Not Given TITR [facility] Protocol 1,000 UNITS/HR Meropenem 500 mg/ Dextrose 100 mls @ 200 mls/hr 05/24/19 02:00 05/26/19 09:05 IVPB 200 mls/hr Q8H-IV ELISSA Administration Insulin Aspart 1 vial 05/24/19 12:45 05/26/19 11:42 Novolog Vial Sliding Scale - SQ 6 units ACHS ELISSA Administration Protocol Insulin Detemir 10 units 05/24/19 22:00 05/25/19 22:29 Levemir Vial SQ 10 units HS ELISSA Administration Lisinopril 10 mg 05/24/19 13:22 05/26/19 09:04 Prinivil NGT 10 mg DAILY ELISSA Administration Metoprolol Tartrate 25 mg 05/24/19 06:00 05/26/19 05:45 Lopressor - GT 25 mg TID ELISSA Administration Pantoprazole Sodium 40 mg 05/24/19 10:00 05/26/19 09:02 Protonix Iv IVPUSH 40 mg DAILY ELISSA Administration Polyethylene Glycol 17 gm 05/24/19 22:49 05/26/19 09:08 Miralax (For Daily Use) - GT Not Given DAILY ELISSA Scopolamine HBr 1 patch 05/26/19 05:15 05/26/19 05:46 Transderm-Scop - TD 1 patch Q72H ELISSA Administration Senna 8.8 mg 05/24/19 22:49 05/25/19 22:19 Senna Oral Solution - GT 8.8 mg HS ELISSA Administration Thiamine HCl 200 mg 05/24/19 10:00 05/26/19 09:02 Vitamin B1 Injection - IVPB 200 mg DAILY ELISSA Administration Home Medications Medication Instructions Recorded Amiodarone HCl 200 mg PO DAILY 04/30/19 Apixaban [Eliquis] 5 mg PO BID 04/30/19 Diltiazem Cd [Cardizem Cd -] 300 mg PO DAILY 04/30/19 Furosemide 40 mg PO BID 04/30/19 Glipizide 10 mg PO DAILY 04/30/19 Lisinopril 10 mg PO DAILY 04/30/19 Metformin HCl [Glucophage] 1,000 mg PO BID 04/30/19 Sitagliptin Phosphate [Januvia] 100 mg PO DAILY 04/30/19 ASSESSMENT AND PLAN: 53 year old male with Obesity, DM 2, Sarcoidosis, Hx systolic CHF (EF 45-50%, now EF normal), EMMY (non-adherent with CPAP), and Atrial Flutter presented with sudden onset of shortness of breath, requiring intubation and mechanical ventilation, with prolonged hospitalization. 1. Acute Hypoxic and Hypercapneic Respiratory Failure secondary to Acute Diastolic CHF +/- PNA Extubated 1/31/20 and re-intubated 05/13/19 s/p Trach 05/22 IV BID Lasix diuresis stopped Zosyn changed to Meropenem due to ESBL positive Sputum Cx. Now spiking fevers again. Re-cultured, results negative. CXR - no acute/new changes. Continue Bronchodilator Nebs. Steroids tapered off. Rest as per Pulmonary Enteral feeds via NG tube. Needs PEG, IR request placed. ID requested to re-evaluate for fevers. 2. Cardiogenic Shock sec to Acute Diastolic CHF vs Septic Shock, etiology unclear - resolved, off pressors. Weaned off Levophed and Vasopressin Blood Cx - Staph epi, likely contaminant. Echo - no vegetations. Repeat Blood Cx neg x 2. Another set Blood Cx pending due to recurrence of fever. On Meropenem for ESBL Pneumonia BP rebounded well - holding up on Metoprolol, Diltiazem, and Lisinopril. Cardiology following - for out-patient Cardiac MRI to assess degree of sarcoid involvement. 3. Atrial flutter with RVR - better controlled on Metoprolol, Diltiazem. Digoxin stopped. Heparin drip held due to reported bleeding around trach site overnight pending re-eval by CT Sx. Further recommendations as per Cardiology. Can transition to Eliquis after PEG placement if no further bleeding. 4. RYNE with Hyperkalemia - likely secondary to Cardiorenal phenomenon, resolved. Nephrology following. Lisinopril resumed. 5. Hypernateremia sec to dehydration/overdiuresis - resolved with IV hydration. 6. DM 2 - Insulin drip transitioned to Detemir/Novolog as per sliding scale. Will increase Detemir due to high BGMs. 7. Generalized weakness s/p Intubation/Extubation with progressive weakness and encephalopathy necessitating Re-Intubation ?deconditioning. CT Head negative for acute findings. ?GBS ?Critical Care Myopathy. EMG unable to exclude myopathy. Discussed with Neuro - will need LP via IR to exclude GBS. LP under fluoro requested. 8. Iron Deficiency Anemia - FeSO4 supplementation. No evidence of active blood loss. For out-patient Ix. DVT Px - Heparin drip held for now pending PEG and LP. SCDs. GI Px - PPI Dispo - Discussed with Lisa Fletcher - needs placement at unit with augmentative communication therapy, possibly [facility].
--- NOTE | 2019-05-26 14:13 | PN ---
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, Physician History of Present Illness: Pt seen and examined at bedside. He is now in the medical maldonado. He is trached and on a vent. He responds to simple commands. - Current Medication List Current Medications: Active Medications Acetaminophen (Tylenol -) 650 mg PO Q6H PRN PRN Reason: Fever Or Pain Last Admin: 05/26/19 09:05 Dose: 650 mg Amino Acids (Prosource No Carb Liquid Pkt) 30 ml GT BID@0800,1730 [facility] Last Admin: 05/26/19 09:07 Dose: 30 ml Diltiazem HCl (Cardizem -) 30 mg PO TID [facility] Last Admin: 05/26/19 05:45 Dose: 30 mg Docusate Sodium (Colace Liquid -) 200 mg GT DAILY PRN PRN Reason: CONSTIPATION Ferrous Sulfate (Feosol) 300 mg NGT BID [facility] Last Admin: 05/26/19 09:05 Dose: 300 mg Meropenem 500 mg/ Dextrose 100 mls @ 200 mls/hr IVPB Q8H-IV [facility] Last Admin: 05/26/19 09:05 Dose: 200 mls/hr Insulin Aspart (Novolog Vial Sliding Scale -) 1 vial SQ [facility]; Protocol Last Admin: 05/26/19 11:42 Dose: 6 units Insulin Detemir (Levemir Vial) 13 units SQ [facility] Lisinopril (Prinivil) 10 mg NGT DAILY [facility] Last Admin: 05/26/19 09:04 Dose: 10 mg Metoprolol Tartrate (Lopressor -) 25 mg GT TID [facility] Last Admin: 05/26/19 05:45 Dose: 25 mg Pantoprazole Sodium (Protonix Iv) 40 mg IVPUSH DAILY [facility] Last Admin: 05/26/19 09:02 Dose: 40 mg Polyethylene Glycol (Miralax (For Daily Use) -) 17 gm GT DAILY [facility] Last Admin: 05/26/19 09:08 Dose: Not Given Scopolamine HBr (Transderm-Scop -) 1 patch TD Q72H [facility] Last Admin: 05/26/19 05:46 Dose: 1 patch Senna (Senna Oral Solution -) 8.8 mg GT HS [facility] Last Admin: 05/25/19 22:19 Dose: 8.8 mg Thiamine HCl (Vitamin B1 Injection -) 200 mg IVPB DAILY [facility] Last Admin: 05/26/19 09:02 Dose: 200 mg - Objective Vital Signs: Vital Signs Temperature 100 F H 05/26/19 13:00 Pulse Rate 83 05/26/19 13:00 Respiratory Rate 20 05/26/19 13:00 Blood Pressure 124/74 05/26/19 13:00 O2 Sat by Pulse Oximetry (%) 98 05/26/19 10:00 Constitutional: Yes: Calm Neck: Yes: Other (trache) Cardiovascular: Yes: S1, S2 Respiratory: Yes: Mechanically Ventilated Gastrointestinal: Yes: Soft, Abdomen, Obese Genitourinary: Yes: Andrews Present Musculoskeletal: Yes: Muscle Weakness Edema: Yes Edema: LLE: Trace, RLE: Trace Integumentary: Yes: Venous Stasis Changes Neurological: Yes: Other (awake) Labs: CBC, BMP 05/26/19 06:45 05/26/19 06:45 INR, PTT INR 1.05 (0.83-1.09) 05/24/19 06:00 Problem List - Problems (1) Acute decompensated heart failure Code(s): I50.9 - HEART FAILURE, UNSPECIFIED (2) Atrial fibrillation and flutter Code(s): I48.91 - UNSPECIFIED ATRIAL FIBRILLATION; I48.92 - UNSPECIFIED ATRIAL FLUTTER (3) Hyperkalemia Code(s): E87.5 - HYPERKALEMIA (4) Pneumonia Code(s): J18.9 - PNEUMONIA, UNSPECIFIED ORGANISM (5) Sarcoidosis of other sites Code(s): D86.89 - SARCOIDOSIS OF OTHER SITES Assessment/Plan Current Medications Generic Name Dose Route Start Last Admin Trade Name Brodyq PRN Reason Stop Dose Admin Acetaminophen 650 mg 05/25/19 00:30 05/26/19 09:05 Tylenol - PO 650 mg Q6H PRN Administration Fever Or Pain Amino Acids 30 ml 05/24/19 22:46 05/26/19 09:07 Prosource No Carb Liquid Pkt GT 30 ml BID@0800,1730 ELISSA Administration Diltiazem HCl 30 mg 05/24/19 06:00 05/26/19 05:45 Cardizem - PO 30 mg TID ELISSA Administration Docusate Sodium 200 mg 05/24/19 22:44 Colace Liquid - GT DAILY PRN CONSTIPATION Ferrous Sulfate 300 mg 05/24/19 10:00 05/26/19 09:05 Feosol NGT 300 mg BID ELISSA Administration Meropenem 500 mg/ Dextrose 100 mls @ 200 mls/hr 05/24/19 02:00 05/26/19 09:05 IVPB 200 mls/hr Q8H-IV ELISSA Administration Insulin Aspart 1 vial 05/24/19 12:45 05/26/19 11:42 Novolog Vial Sliding Scale - SQ 6 units ACHS ELISSA Administration Protocol Insulin Detemir 13 units 05/26/19 13:01 Levemir Vial SQ HS [facility]IS[facility] Lisinopril 10 mg 05/24/19 13:22 05/26/19 09:04 Prinivil NGT 10 mg DAILY ELISSA Administration Metoprolol Tartrate 25 mg 05/24/19 06:00 05/26/19 05:45 Lopressor - GT 25 mg TID ELISSA Administration Pantoprazole Sodium 40 mg 05/24/19 10:00 05/26/19 09:02 Protonix Iv IVPUSH 40 mg DAILY ELISSA Administration Polyethylene Glycol 17 gm 05/24/19 22:49 05/26/19 09:08 Miralax (For Daily Use) - GT Not Given DAILY [facility] Scopolamine HBr 1 patch 05/26/19 05:15 05/26/19 05:46 Transderm-Scop - TD 1 patch Q72H ELISAS Administration Senna 8.8 mg 05/24/19 22:49 05/25/19 22:19 Senna Oral Solution - GT 8.8 mg HS ELISSA Administration Thiamine HCl 200 mg 05/24/19 10:00 05/26/19 09:02 Vitamin B1 Injection - IVPB 200 mg DAILY ELISSA Administration Impression 1. RYNE 2. hyperkalemia 3. resp failure requiring intubation 4. resp acidosis 5. dm 6. hx htn 7. sleep apnea 8. obesity 9. hx non compliance 10. chf 11. sarcoid 12. volume overload 13. hypernatremia Plan - increase free water with feeds as sodium is rising - will likely resume lasix tomorrow - vent support - pulm follow up - renal function stable on brian
--- NOTE | 2019-05-26 14:21 | PN ---
Physical Exam: SUBJECTIVE: Patient seen and examined at bedside. No acute events overnight. Pt febrile this morning 100.6. Seen awake and alert, responding to commands. Nods head yes and no upon questioning. OBJECTIVE: Vital Signs Temperature 99.4 F 05/26/19 11:48 Pulse Rate 83 05/26/19 08:12 Respiratory Rate 18 05/26/19 10:00 Blood Pressure 118/73 05/26/19 08:00 O2 Sat by Pulse Oximetry (%) 98 05/26/19 10:00 GENERAL: Awake and alert. Has trach on vent machine. NAD. HEAD: Normal with no signs of trauma. ENT: Ears normal, nares patent, oropharynx clear without exudates, moist mucous membranes. Trach placed, no erythema, discharge or signs of infection. LUNGS: Mechanical ventilation. Scattered ronchi. No wheezes or crackles. HEART: Regular rate and rhythm, S1, S2 without murmur, rub or gallop. ABDOMEN: Obese. Soft, nontender, nondistended. EXTREMITIES: 2+ pulses,warm, well-perfused, no edema. NEUROLOGICAL: opens his eyes moves his lips to speak but not audible, pt wiggles his toes to command, and can also intelligence manager hands b/l on command. Still unable to move b/l u/l extremities in bed. SKIN: Warm, dry, normal turgor, no rashes or lesions noted CBC, BMP 05/26/19 06:45 05/26/19 06:45 Active Medications Acetaminophen (Tylenol -) 650 mg PO Q6H PRN PRN Reason: Fever Or Pain Last Admin: 05/26/19 09:05 Dose: 650 mg Amino Acids (Prosource No Carb Liquid Pkt) 30 ml GT BID@0800,1730 [facility] Last Admin: 05/26/19 09:07 Dose: 30 ml Diltiazem HCl (Cardizem -) 30 mg PO TID [facility] Last Admin: 05/26/19 05:45 Dose: 30 mg Docusate Sodium (Colace Liquid -) 200 mg GT DAILY PRN PRN Reason: CONSTIPATION Ferrous Sulfate (Feosol) 300 mg NGT BID [facility] Last Admin: 05/26/19 09:05 Dose: 300 mg Meropenem 500 mg/ Dextrose 100 mls @ 200 mls/hr IVPB Q8H-IV [facility] Last Admin: 05/26/19 09:05 Dose: 200 mls/hr Insulin Aspart (Novolog Vial Sliding Scale -) 1 vial SQ ACHS [facility]; Protocol Last Admin: 05/26/19 11:42 Dose: 6 units Insulin Detemir (Levemir Vial) 13 units SQ HS [facility] Lisinopril (Prinivil) 10 mg NGT DAILY [facility] Last Admin: 05/26/19 09:04 Dose: 10 mg Metoprolol Tartrate (Lopressor -) 25 mg GT TID [facility] Last Admin: 05/26/19 05:45 Dose: 25 mg Pantoprazole Sodium (Protonix Iv) 40 mg IVPUSH DAILY [facility] Last Admin: 05/26/19 09:02 Dose: 40 mg Polyethylene Glycol (Miralax (For Daily Use) -) 17 gm GT DAILY [facility] Last Admin: 05/26/19 09:08 Dose: Not Given Scopolamine HBr (Transderm-Scop -) 1 patch TD Q72H [facility] Last Admin: 05/26/19 05:46 Dose: 1 patch Senna (Senna Oral Solution -) 8.8 mg GT HS [facility] Last Admin: 05/25/19 22:19 Dose: 8.8 mg Thiamine HCl (Vitamin B1 Injection -) 200 mg IVPB DAILY [facility] Last Admin: 05/26/19 09:02 Dose: 200 mg ASSESSMENT/PLAN: 53 y/o/m with PMHx of DM2, HFpEF(last EF: 45-50%), 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 #Acute Hypoxic and Hypercapneic Respiratory Failure; 2/2 Acute diastolic CHF vs. PNA -Intubated upon admission, extubated 05/09; then re-intubated 05/13/19; s/p trach . PEG tube placement needed. -Remains febrile; 100.6 this AM. -Sputum cx: ESBL; Currently on Meropenem 500 Q8H (previously on Zosyn). ID consulted. -Cont vent support and wean FiO2 as tolerated. #Cardiogenic Shock; 2/2 Acute Diastolic CHF vs. Septic Shock. Unclear etiology. Resolved and off pressors. -Resolved, off pressors. -ECHO - EF of 55-60%, no significant abnormalities noted, no vegetations. Repeat blood cultures pending given recurrent fevers. -Per cardio, recommend cardiac MRI as outpatient to assess sarcoidosis involvement. #Altered mental status and weakness; 2/2 ? Critical care induced myopathy -Neuro Consulted (Dr. Pleitez), Dr. 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 -EEG(05/16/19): abn EEG, nonspecific finding of diffuse encephalopathy #Atrial Flutter w/ RVR -Cont with Cardizem 30 TID GT and Lopressor 25 TID GT (Dilt drip, Digoxin previously discontinued) -Heparin drip on hold due to reported bleeding around trach site; also pending PEG tube placement -Can transition to Eliquis after PEG tube placement #RYNE on CKD w/ hyperkalemia; Improved. Cr 1, K+ 4.1 -Nephro consulted -Cont Lisinopril 10mg QD given his improved renal function #DM2 -BGM/ISS ACHS -Inc to Levemir 13U HS (previously on insulin drip) #FEN -free water fluid via NG tube -monitor and replete lytes as needed -Nephro feeds #Prophylaxis -Heparin drip held pending PEG placement -Protonix 40 daily Dispo: Pt up for transfer to SNF Visit type - Emergency Visit Emergency Visit: Yes ED Registration Date: 04/30/19 Care time: The patient presented to the Emergency Department on the above date and was hospitalized for further evaluation of their emergent condition. - New Patient This patient is new to me today: No - Critical Care Critical Care patient: No ATTENDING PHYSICIAN STATEMENT I saw and evaluated the patient. I reviewed the resident's note and discussed the case with the resident. I agree with the resident's findings and plan as documented. SUBJECTIVE: OBJECTIVE: ASSESSMENT AND PLAN:
--- NOTE | 2019-05-26 14:40 | PN ---
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 (short form) - Note 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: Chief Complaint: Events noted, notes reviewed, no change in status History of Present Illness: Seen and examined. Events noted, notes reviewed, no change in status Current Medications: Current Medications Acetaminophen (Tylenol -) 650 mg PO Q6H PRN PRN Reason: Fever Or Pain Last Admin: 05/26/19 09:05 Dose: 650 mg Amino Acids (Prosource No Carb Liquid Pkt) 30 ml GT BID@0800,1730 [facility] Last Admin: 05/26/19 09:07 Dose: 30 ml Diltiazem HCl (Cardizem -) 30 mg PO TID [facility] Last Admin: 05/26/19 14:14 Dose: 30 mg Docusate Sodium (Colace Liquid -) 200 mg GT DAILY PRN PRN Reason: CONSTIPATION Ferrous Sulfate (Feosol) 300 mg NGT BID [facility] Last Admin: 05/26/19 09:05 Dose: 300 mg Meropenem 500 mg/ Dextrose 100 mls @ 200 mls/hr IVPB Q8H-IV [facility] Last Admin: 05/26/19 09:05 Dose: 200 mls/hr Insulin Aspart (Novolog Vial Sliding Scale -) 1 vial SQ [facility]; Protocol Last Admin: 05/26/19 11:42 Dose: 6 units Insulin Detemir (Levemir Vial) 13 units SQ [facility] Lisinopril (Prinivil) 10 mg NGT DAILY [facility] Last Admin: 05/26/19 09:04 Dose: 10 mg Metoprolol Tartrate (Lopressor -) 25 mg GT TID [facility] Last Admin: 05/26/19 14:14 Dose: 25 mg Pantoprazole Sodium (Protonix Iv) 40 mg IVPUSH DAILY [facility] Last Admin: 05/26/19 09:02 Dose: 40 mg Polyethylene Glycol (Miralax (For Daily Use) -) 17 gm GT DAILY [facility] Last Admin: 05/26/19 09:08 Dose: Not Given Scopolamine HBr (Transderm-Scop -) 1 patch TD Q72H [facility] Last Admin: 05/26/19 05:46 Dose: 1 patch Senna (Senna Oral Solution -) 8.8 mg GT HS [facility] Last Admin: 05/25/19 22:19 Dose: 8.8 mg Thiamine HCl (Vitamin B1 Injection -) 200 mg IVPB DAILY [facility] Last Admin: 05/26/19 09:02 Dose: 200 mg Review of Systems Unable to obtain - Objective Vital Signs: Last Vital Signs Temp Pulse Resp BP Pulse Ox 100 F H 83 20 124/74 98 05/26/19 13:00 05/26/19 13:00 05/26/19 13:00 05/26/19 13:00 05/26/19 10:00 Intake & Output 05/23/19 05/24/19 05/25/19 05/26/19 23:59 23:59 23:59 23:59 Intake Total 766 1861 1000 Output Total 1900 1050 1480 Balance -1134 -5926 738 7981 Weight 266 lb 12.8 oz Neck: Supple negative JVD no bruit Cardiovascular: S1 S2 Irregularly Irregular Respiratory: Diminished Breath Sounds Bilaterally Gastrointestinal: Soft Benign Normal Bowel Sounds Ext: Edema Bilaterally Labs: CBC, BMP 05/26/19 06:45 05/26/19 06:45 Hepatic Panel Total Bilirubin 0.6 mg/dL (0.2-1) 05/25/19 06:00 Direct Bilirubin 0.2 mg/dL (0.0-0.2) 05/05/19 05:30 AST 28 U/L (15-37) 05/25/19 06:00 ALT 53 U/L (13-61) 05/25/19 06:00 Alkaline Phosphatase 94 U/L (45-117) 05/25/19 06:00 Albumin 2.2 g/dl (3.4-5.0) L 05/25/19 06:00 Assessment/Plan: ASSESSMENT: 1. Acute hypoxic and hypercapneic respiratory failure on mechanical ventilation post tracheostomy 2. Pneumonia complicated by septic shock, clinically resolved 3. Persistent atrial flutter/paroxysmal atrial fibrillation [id number] score of 0 on no A/C currently 4. Diastolic LV dysfunction with clinical class 0 NYHA classification LV failure 5. Sarcoidosis confirmed by skin biopsy, R/O cardiac involvement- outpatient evaluation 6. DM 7. 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 Acute on CKD 9. Anemia PLAN: 1. Ventilator management as per the pulmonary team 2. Antibiotics as per the primary team 3. Continue B-Blockers/Lopressor to assist with rate control/hemodynamics permitting 4. Continue Cardizem to assist with rate control/hemodynamics permitting 5. Continue Lisinopril/hemodynamics permitting 6. Reinitiate DOAS's/Eliquis post PEG placement unless additional procedure are planned and not contraindicated 7. Diuretics as needed Maycol King MD
[2019-05-26 16:41] LABS: CSF APPEARANCE CLEAR; CSF COLOR COLORLESS; CSF WBC 0
[2019-05-26] MEDS: SENNOSIDES 8.8 MG/5 ML BULK BOTTLE GT SCH (22:20)
[2019-05-27] MEDS ORDERED: DEXTROSE 5%-WATER 100 ML IVPB ONE ×3 (01:33→17:07)
[2019-05-27] MEDS ORDERED: MEROPENEM 500 MG VIAL (RESTRICTED TO ID) IVPB ONE ×3 (01:33→17:07)
[2019-05-27] MEDS: MEROPENEM 500 MG in DEXTROSE 5%-WATER 100 ML IVPB SCH ×3 (02:05→17:12)
[2019-05-27] MEDS: dilTIAZem HCL 30 MG TABLET (FP) PO SCH ×3 (05:14→22:35)
[2019-05-27] MEDS: METOPROLOL TARTRATE 25 MG TABLET (FP) GT SCH ×3 (05:14→22:41)
[2019-05-27 05:35] LABS: BF GLUCOSE (CSF ONLY) 174 mg/dL (40-70)
[2019-05-27] MEDS: INSULIN SLIDING SCALE (NOVOLOG) 1 VIAL SQ SCH ×4 (06:03→23:28)
[2019-05-27] MEDS: NYSTATIN 500,000 UNITS/5 ML SUSPENSION PO SCH ×4 (08:44→23:17)
--- NOTE | 2019-05-27 08:44 | PN ---
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 (short form) - Note 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: Neurology - History of Present Illness History of Present Illness: Covering for Dr. Pleitez 53-year-old right-handed man with multiple medical problem including diabetes mellitus coronary artery disease osteoarthritis chronic low back pain history of diastolic CHF who presented previously to [facility] to the emergency room with the chief complaint of shortness of breath. Hospital course was complicated by respiratory distress that required intubation patient was intubated and admitted to the medical ICU for a while patient was under the care of multiple specialists including library media specialist and critical care. No report of any recent travel. More recently, this admission for shortness of breath with respiratory acidosis on ABG not feeling himself. Patient required intubation again chest x-ray was done. Neurology was called due to pupilary asymetry. Consult note reviewed from Dr. Pleitez. Hospitalist asked me to evaluate further regarding ongoing decline and assess to eval for Guillan [place]. Patient remains bedbound without participation in confrontation testing. Does have minimal reflexes speaking against likelihood for guillan barre. EMG from 04/30 reviewed and showed axonal neuropathy but could not rule out myopathy. For more definitive diagnosis, LP was completed and showed zero WBC but increased protein to 101 and increased glucose to 174. Elevated glucose may be due to underlying Hyperglycemia. The increase in protein with normal WBC is suspicious for guillian barre. Treatment would entail IVIG and/or possible plasma exchange. Active Medications Acetaminophen (Tylenol -) 650 mg PO Q6H PRN PRN Reason: Fever Or Pain Last Admin: 05/26/19 09:05 Dose: 650 mg Amino Acids (Prosource No Carb Liquid Pkt) 30 ml GT BID@0800,1730 [facility] Last Admin: 05/26/19 17:17 Dose: 30 ml Diltiazem HCl (Cardizem -) 30 mg PO TID [facility] Last Admin: 05/27/19 05:14 Dose: 30 mg Docusate Sodium (Colace Liquid -) 200 mg GT DAILY PRN PRN Reason: CONSTIPATION Ferrous Sulfate (Feosol) 300 mg NGT BID [facility] Last Admin: 05/26/19 22:17 Dose: 300 mg Meropenem 500 mg/ Dextrose 100 mls @ 200 mls/hr IVPB Q8H-IV [facility] Last Admin: 05/27/19 02:05 Dose: 200 mls/hr Insulin Aspart (Novolog Vial Sliding Scale -) 1 vial SQ ACHS [facility]; Protocol Last Admin: 05/27/19 06:03 Dose: Not Given Insulin Detemir (Levemir Vial) 13 units SQ HS [facility] Last Admin: 05/26/19 22:18 Dose: 13 units Lisinopril (Prinivil) 10 mg NGT DAILY [facility] Last Admin: 05/26/19 09:04 Dose: 10 mg Metoprolol Tartrate (Lopressor -) 25 mg GT TID [facility] Last Admin: 05/27/19 05:14 Dose: 25 mg Nystatin (Nystatin Oral Suspension -) 500,000 units PO Q6HPO [facility] Pantoprazole Sodium (Protonix Iv) 40 mg IVPUSH DAILY [facility] Last Admin: 05/26/19 09:02 Dose: 40 mg Polyethylene Glycol (Miralax (For Daily Use) -) 17 gm GT DAILY [facility] Last Admin: 05/26/19 09:08 Dose: Not Given Scopolamine HBr (Transderm-Scop -) 1 patch TD Q72H [facility] Last Admin: 05/26/19 05:46 Dose: 1 patch Senna (Senna Oral Solution -) 8.8 mg GT HS [facility] Last Admin: 05/26/19 22:20 Dose: 8.8 mg Thiamine HCl (Vitamin B1 Injection -) 200 mg IVPB DAILY [facility] Last Admin: 05/26/19 09:02 Dose: 200 mg Physical Exam-Neuro Vital Signs: Vital Signs Period Temp Pulse Resp BP Sys/[place] Pulse Ox Last 24 Hr 99.1 F-100 F 81-85 18-22 109-124/67-75 98-99 - Neuro Exam awake, eyes open, not following commands pupils equal and reactive to light not participating in confrontation testing Minimal movements seen trace reflexes in patella CBCD WBC 5.2 K/mm3 (4.0-10.0) 05/26/19 06:45 RBC 3.77 M/mm3 (4.00-5.60) L 05/26/19 06:45 Hgb 9.6 GM/dL (11.7-16.9) L 05/26/19 06:45 Hct 30.7 % (35.4-49) L 05/26/19 06:45 MCV 81.4 fl (80-96) 05/26/19 06:45 MCHC 31.2 g/dl (32.0-35.9) L 05/26/19 06:45 RDW 20.1 % (11.9-15.9) H 05/26/19 06:45 Plt Count 185 K/MM3 (134-434) 05/26/19 06:45 MPV 9.4 fl (7.5-11.1) 05/26/19 06:45 CMP Sodium 146 mmol/L (136-145) H 05/26/19 06:45 Potassium 4.1 mmol/L (3.5-5.1) 05/26/19 06:45 Chloride 108 mmol/L (98-107) H 05/26/19 06:45 Carbon Dioxide 32 mmol/L (21-32) 05/26/19 06:45 Anion Gap 5 MMOL/L (8-16) L 05/26/19 06:45 BUN 38.2 mg/dL (7-18) H 05/26/19 06:45 Creatinine 1.0 mg/dL (0.55-1.3) 05/26/19 06:45 Random Glucose 294 mg/dL (74-106) H 05/26/19 06:45 Calcium 8.4 mg/dL (8.5-10.1) L 05/26/19 06:45 Total Bilirubin 0.6 mg/dL (0.2-1) 05/25/19 06:00 AST 28 U/L (15-37) 05/25/19 06:00 ALT 53 U/L (13-61) 05/25/19 06:00 Alkaline Phosphatase 94 U/L (45-117) 05/25/19 06:00 Total Protein 5.1 g/dl (6.4-8.2) L 05/25/19 06:00 Albumin 2.2 g/dl (3.4-5.0) L 05/25/19 06:00 CARDIAC ENZYMES Creatine Kinase 179 U/L (26-308) 05/11/19 05:55 Troponin I < 0.02 ng/ml (0.00-0.05) 05/05/19 05:30 ASSESSMENT/PLAN 53-year-old right-handed man with multiple medical problem including diabetes mellitus coronary artery disease osteoarthritis chronic low back pain history of diastolic CHF who presented previously to [facility] to the emergency room with the chief complaint of shortness of breath. Hospital course was complicated by respiratory distress that required intubation patient was intubated and admitted to the medical ICU for a while patient was under the care of multiple specialists including library media specialist and critical care. No report of any recent travel. More recently, this admission for shortness of breath with respiratory acidosis on ABG not feeling himself. Patient required intubation again chest x-ray was done. Neurology was called due to pupilary asymetry. Consult note reviewed from Dr. Pleitez. Hospitalist asked me to evaluate further regarding ongoing decline and assess to eval for Guillan [place]. Patient remains bedbound without participation in confrontation testing. Does have minimal reflexes speaking against likelihood for guillan barre. EMG from 04/30 reviewed and showed axonal neuropathy but could not rule out myopathy. For more definitive diagnosis, LP was completed and showed zero WBC but increased protein to 101 and increased glucose to 174. Elevated glucose may be due to underlying Hyperglycemia. The increase in protein with normal WBC is suspicious for guillian barre. Treatment would entail IVIG and/or possible plasma exchange. Dr. Pleitez remains away, will return this weekend, will inform him of update. Discussed with hospitalist andadvised starting IVIG. At least 5 day course, would consider Plex after if indicated.
[2019-05-27] MEDS: AMINO ACIDS/PROTEIN HYDROLYS 30 ML LIQUID.PKT GT SCH ×2 (08:48→17:53)
[2019-05-27 09:14] LABS: ALBUMIN 2.1 g/dl (3.4-5.0); BILIRUBIN,TOTAL 0.8 mg/dL (0.2-1); BLOOD UREA NITROGEN 37.9 mg/dL (7-18); CALCIUM 8.4 mg/dL (8.5-10.1); CREATININE 0.9 mg/dL (0.55-1.3); POTASSIUM 3.8 mmol/L (3.5-5.1); TOT PROT 5.2 g/dl (6.4-8.2)
[2019-05-27 09:26] LABS: HEMATOCRIT 32.6 % (35.4-49); HEMOGLOBIN 9.9 GM/dL (11.7-16.9); MCH 24.9 pg (25.7-33.7); MCHC 30.5 g/dl (32.0-35.9); MEAN CELL VOLUME 81.7 fl (80-96); MEAN PLT VOLUME 9.1 fl (7.5-11.1); PLATELET COUNT 173 K/MM3 (134-434); RBC 3.98 M/mm3 (4.00-5.60); RDW 20.3 % (11.9-15.9); WHITE BLOOD COUNT 6.5 K/mm3 (4.0-10.0)
[2019-05-27] MEDS: LISINOPRIL 10 MG TABLET (FP) NGT SCH (09:27)
[2019-05-27] MEDS: FERROUS SO4 300 MG/5 ML ORAL SOLN UNIT DOSE CUPS NGT SCH ×2 (09:27→22:41)
[2019-05-27] MEDS: THIAMINE HCL 200 MG/2 ML VIAL IVPB SCH (09:27)
[2019-05-27] MEDS: PANTOPRAZOLE SODIUM 40 MG VIAL IVPUSH SCH (09:27)
[2019-05-27] MEDS: POLYETHYLENE GLYCOL 3350 119 GM BTL GT SCH (09:28)
--- NOTE | 2019-05-27 09:58 | PN ---
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 (short form) - Note 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: Awake on AC Mode of vent. No blood noted around Trach site. No gross change in exam. Intake & Output 05/24/19 05/25/19 05/26/19 05/27/19 23:59 23:59 23:59 23:59 Intake Total 1861 1000 100 Output Total 1050 1480 1400 Balance -1050 381 -400 100 Last Vital Signs Temp Pulse Resp BP Pulse Ox 99.1 F 81 18 120/73 99 05/27/19 06:00 05/27/19 08:11 05/27/19 08:11 05/27/19 06:00 05/27/19 08:11 Active Medications Acetaminophen (Tylenol -) 650 mg PO Q6H PRN PRN Reason: Fever Or Pain Last Admin: 05/26/19 09:05 Dose: 650 mg Amino Acids (Prosource No Carb Liquid Pkt) 30 ml GT BID@0800,1730 [facility] Last Admin: 05/27/19 08:48 Dose: Not Given Diltiazem HCl (Cardizem -) 30 mg PO TID [facility] Last Admin: 05/27/19 05:14 Dose: 30 mg Docusate Sodium (Colace Liquid -) 200 mg GT DAILY PRN PRN Reason: CONSTIPATION Ferrous Sulfate (Feosol) 300 mg NGT BID [facility] Last Admin: 05/27/19 09:27 Dose: 300 mg Meropenem 500 mg/ Dextrose 100 mls @ 200 mls/hr IVPB Q8H-IV [facility] Last Admin: 05/27/19 02:05 Dose: 200 mls/hr Insulin Aspart (Novolog Vial Sliding Scale -) 1 vial SQ [facility]; Protocol Last Admin: 05/27/19 06:03 Dose: Not Given Insulin Detemir (Levemir Vial) 13 units SQ HS [facility] Last Admin: 05/26/19 22:18 Dose: 13 units Lisinopril (Prinivil) 10 mg NGT DAILY [facility] Last Admin: 05/27/19 09:27 Dose: 10 mg Metoprolol Tartrate (Lopressor -) 25 mg GT TID [facility] Last Admin: 05/27/19 05:14 Dose: 25 mg Nystatin (Nystatin Oral Suspension -) 500,000 units PO Q6HPO [facility] Last Admin: 05/27/19 08:44 Dose: 500,000 units Pantoprazole Sodium (Protonix Iv) 40 mg IVPUSH DAILY [facility] Last Admin: 05/27/19 09:27 Dose: 40 mg Polyethylene Glycol (Miralax (For Daily Use) -) 17 gm GT DAILY [facility] Last Admin: 05/27/19 09:28 Dose: Not Given Scopolamine HBr (Transderm-Scop -) 1 patch TD Q72H [facility] Last Admin: 05/26/19 05:46 Dose: 1 patch Senna (Senna Oral Solution -) 8.8 mg GT HS [facility] Last Admin: 05/26/19 22:20 Dose: 8.8 mg Thiamine HCl (Vitamin B1 Injection -) 200 mg IVPB DAILY [facility] Last Admin: 05/27/19 09:27 Dose: 200 mg GEN: Vented, awake, NAD PULM: scattered rhonchi B/L CV: S1 S2, irreg/irreg ABD: + BS, S/S N/T N/D X4Q EXT: + Pulses, WWPX4, + edema [employer]: Awake, global deficit Laboratory Results - last 24 hr 05/26/19 05/26/19 05/26/19 06:15 10:40 11:40 WBC RBC Hgb Hct MCV MCH MCHC RDW Plt Count MPV PTT (Actin FS) Sodium Potassium Chloride Carbon Dioxide Anion Gap BUN Creatinine Est GFR (CKD-EPI)AfAm Est GFR (CKD-EPI)NonAf POC Glucometer 248 Random Glucose Calcium Total Bilirubin AST ALT Alkaline Phosphatase Total Protein Albumin Fluid Source Cancelled Fluid WBC Cancelled Fluid RBC Cancelled Fluid Neutrophils Cancelled Fluid Lymphocytes Cancelled Fluid Other Cells Cancelled CSF Appearance CSF Color CSF WBC CSF RBC CSF Neutrophils CSF Lymphocytes CSF Eosinophils CSF Basophils CSF Macrophages CSF Plasma Cells CSF Diff Comment CSF Comment CSF Glucose CSF Total Protein Pleural Monocytes Cancelled Pleural Eosinophils Cancelled Pleural Basophils Cancelled Pleural Plasma Cells Cancelled Pleural Histocytes Cancelled Pleural Macrophages Cancelled Pleural Mesothelial Cancelled Pleural Diff Comment Cancelled Stool Occult Blood Trace 05/26/19 05/26/19 05/26/19 15:15 16:42 21:51 WBC RBC Hgb Hct MCV MCH MCHC RDW Plt Count MPV PTT (Actin FS) Sodium Potassium Chloride Carbon Dioxide Anion Gap BUN Creatinine Est GFR (CKD-EPI)AfAm Est GFR (CKD-EPI)NonAf POC Glucometer 259 224 Random Glucose Calcium Total Bilirubin AST ALT Alkaline Phosphatase Total Protein Albumin Fluid Source Fluid WBC Fluid RBC Fluid Neutrophils Fluid Lymphocytes Fluid Other Cells CSF Appearance Clear CSF Color Colorless CSF WBC 0 CSF RBC 6 CSF Neutrophils No Result Required. CSF Lymphocytes No Result Required. CSF Eosinophils No Result Required. CSF Basophils No Result Required. CSF Macrophages No Result Required. CSF Plasma Cells No Result Required. CSF Diff Comment No Result Required. CSF Comment No Result Required. CSF Glucose 174 H CSF Total Protein 101 H Pleural Monocytes Pleural Eosinophils Pleural Basophils Pleural Plasma Cells Pleural Histocytes Pleural Macrophages Pleural Mesothelial Pleural Diff Comment Stool Occult Blood 05/27/19 05/27/19 05/27/19 02:03 05:13 05:30 WBC RBC Hgb Hct MCV MCH MCHC RDW Plt Count MPV PTT (Actin FS) 31.3 Sodium Potassium Chloride Carbon Dioxide Anion Gap BUN Creatinine Est GFR (CKD-EPI)AfAm Est GFR (CKD-EPI)NonAf POC Glucometer 211 200 Random Glucose Calcium Total Bilirubin AST ALT Alkaline Phosphatase Total Protein Albumin Fluid Source Fluid WBC Fluid RBC Fluid Neutrophils Fluid Lymphocytes Fluid Other Cells CSF Appearance CSF Color CSF WBC CSF RBC CSF Neutrophils CSF Lymphocytes CSF Eosinophils CSF Basophils CSF Macrophages CSF Plasma Cells CSF Diff Comment CSF Comment CSF Glucose CSF Total Protein Pleural Monocytes Pleural Eosinophils Pleural Basophils Pleural Plasma Cells Pleural Histocytes Pleural Macrophages Pleural Mesothelial Pleural Diff Comment Stool Occult Blood 05/27/19 05/27/19 05:30 05:30 WBC 6.5 RBC 3.98 L Hgb 9.9 L Hct 32.6 L MCV 81.7 MCH 24.9 L MCHC 30.5 L RDW 20.3 H Plt Count 173 MPV 9.1 PTT (Actin FS) Sodium 145 Potassium 3.8 Chloride 106 Carbon Dioxide 32 Anion Gap 7 L BUN 37.9 H Creatinine 0.9 Est GFR (CKD-EPI)AfAm 114.21 Est GFR (CKD-EPI)NonAf 98.54 POC Glucometer Random Glucose 198 H Calcium 8.4 L Total Bilirubin 0.8 AST 17 ALT 36 Alkaline Phosphatase 83 Total Protein 5.2 L Albumin 2.1 L Fluid Source Fluid WBC Fluid RBC Fluid Neutrophils Fluid Lymphocytes Fluid Other Cells CSF Appearance CSF Color CSF WBC CSF RBC CSF Neutrophils CSF Lymphocytes CSF Eosinophils CSF Basophils CSF Macrophages CSF Plasma Cells CSF Diff Comment CSF Comment CSF Glucose CSF Total Protein Pleural Monocytes Pleural Eosinophils Pleural Basophils Pleural Plasma Cells Pleural Histocytes Pleural Macrophages Pleural Mesothelial Pleural Diff Comment Stool Occult Blood 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
--- NOTE | 2019-05-27 10:52 | PN ---
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 (short form) - Note 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: Thoracic Surgery Reconsultation: Notified about oozing over weekend around tracheostomy. I don't see any evidence or potential for serious bleeding as skin incision is taut. I recommend routine skin care to this area from the nursing staff daily. From my point of view, it is OK to anticoagulate. The surgical PA's will follow as well. I have placed some surgicell around the area which may be replaced.
[2019-05-27 11:41] LABS: CHOLESTEROL 205 mg/dL (50-200); HDL CHOLESTEROL 36 mg/dL (40-60); LDL CHOLESTEROL (ONLY SJRH) 130 mg/dL (5-100); TRIGLYCERIDES 232 mg/dL (0-150)
--- NOTE | 2019-05-27 12:28 | PN ---
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, INFORMATICA - Note 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: Alert, following some commands. Some increased motor- now moving both feet,can shrug shoulders slightly, some y/n headshake, opening mouth protruding tongue. Bilateral facial weakness Improving response intermittently with head shake/nod. Per f/u neurology note-"Neurology was called due to pupilary asymetry. Consult note reviewed from Dr. Pleitez. Hospitalist asked me to evaluate further regarding ongoing decline and assess to eval for Guillan [place]. Patient remains bedbound without participation in confrontation testing. Does have minimal reflexes speaking against likelihood for guillan barre. EMG from 04/30 reviewed and showed axonal neuropathy but could not rule out myopathy. For more definitive diagnosis, LP was completed and showed zero WBC but increased protein to 101 and increased glucose to 174. Elevated glucose may be due to underlying Hyperglycemia. The increase in protein with normal WBC is suspicious for guillian barre. Treatment would entail IVIG and/or possible plasma exchange. Dr. Pleitez remains away, will return this weekend, will inform him of update. Discussed with hospitalist andadvised starting IVIG. At least 5 day course, would consider Plex after if indicated" Suggest Health system for rehabilitation/augmentation communication Plan is for PEG
--- NOTE | 2019-05-27 12:57 | PN ---
Teaching Attending Note Name of Resident: Magnus Lloyd ATTENDING PHYSICIAN STATEMENT I saw and evaluated the patient. I reviewed the resident's note and discussed the case with the resident. I agree with the resident's findings and plan as documented. Seen and examined; please see resident note for further historical information. I personally verified all valadez historical information and exam findings. Personally interpreted all imaging and diagnostics and reviewed appropriate consults. I reviewed all labs and vital signs as per resident note and EMR as documented. I agree with the above assessment and plan unless supplemented by myself in the following. 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 I discussed this with neurology and we started the patient on IVIG infusion. This will delay the PEG tube placement given the fact that the patient will need to have the infusion started and monitored by nursing. PEG tube can be placed later today or tomorrow. We can continue feeding through Dobbhoff tube. Glycemic control is suboptimal. Continues on meropenem for ESBL growing up in the sputum. Seen by thoracic surgery for concern of oozing around tracheostomy. Per their service there is no evidence for potential for serious bleeding is a skin incision is taught and regular skin care was recommended and it is okay to anticoagulate from the perspective of the tracheostomy site. 10 item review of systems could not be obtained due to underlying clinical status VS, labs, imaging reviewed NAD, AAO, resting comfortably in bed and responds to verbal and painful stimuli. He is status post tracheostomy Heart rate within normal limits s1/2 no mgr Normal muscle tone, moves all 5 extremities with normal apparent strength Neck is supple, trachea midline, no fernanda LN. no oozing with tracheostomy site intact Lungs with ventilator associated breath sounds with sym expansion NT ND +BS no fernanda organomegaly CN2-12 wnl; no FND NC AT EOMI PERRLA Normal mood, appropriate behavior, euthymic affect No skin breakdown or rashes noted Assessment and plan: Patient with prolonged hospitalization status post respiratory failure due to pneumonia with potential component of diastolic CHF exacerbation potentially secondary to cardiac sarcoidosis with outpatient testing to be obtained. He is status post tracheostomy placement and has been cleared to resume anticoagulation from a surgical perspective with relation to this. 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 Neurology has opted to start IVIG therapy Problems include: -Ventilator dependent respiratory failure -Subacute mixed respiratory failure -Potential Selene Vigil syndrome -Anemia -Uncontrolled diabetes mellitus -Persistent atrial flutter versus paroxysmal atrial fibrillation on heparin, rate improved -ARDS, resolving -Biopsy-proven sarcoidosis, rule out cardiac sarcoidosis with outpatient biopsy -History of EMMY, noncompliant with CPAP -RYNE on CKD, nephrology following -Need for PEG tube, delaying until tomorrow -Morbid obesity, BMI 43 Full code
[2019-05-27] MEDS ORDERED: PT OWN MED DRAWER 7, Y5N ONE ×2 (13:13→22:27)
--- NOTE | 2019-05-27 14:29 | PN ---
Physical Exam: SUBJECTIVE: Patient seen and examined at bedside. No acute events. OBJECTIVE: Vital Signs Period Temp Pulse Resp BP Sys/[place] Pulse Ox Last 24 Hr 99.1 F-99.7 F 81-85 18-30 109-123/58-75 96-99 GENERAL: The patient is awake, alert, and fully oriented, in no acute distress. NECK: Tracheostomy in place LUNGS: Breath sounds equal, clear to auscultation bilaterally, no wheezes, no crackles, no accessory muscle use. HEART: Regular rate and rhythm, S1, S2 without murmur, rub or gallop. ABDOMEN: Soft, nontender, nondistended. EXTREMITIES: 2+ pulses, warm, well-perfused, no edema. NEUROLOGICAL: able to respond to commands, wiggles toes and fingers to command, unable to speak, Laboratory Results - last 24 hr 05/27/19 05/27/19 05/27/19 05:30 05:30 05:30 WBC 6.5 RBC 3.98 L Hgb 9.9 L Hct 32.6 L MCV 81.7 MCH 24.9 L MCHC 30.5 L RDW 20.3 H Plt Count 173 MPV 9.1 PTT (Actin FS) 31.3 Sodium 145 Potassium 3.8 Chloride 106 Carbon Dioxide 32 Anion Gap 7 L BUN 37.9 H Creatinine 0.9 Est GFR (CKD-EPI)AfAm 114.21 Est GFR (CKD-EPI)NonAf 98.54 POC Glucometer Random Glucose 198 H Calcium 8.4 L Total Bilirubin 0.8 AST 17 ALT 36 Alkaline Phosphatase 83 Total Protein 5.2 L Albumin 2.1 L Triglycerides Cholesterol Total LDL Cholesterol HDL Cholesterol Fluid Source Fluid WBC Fluid RBC Fluid Neutrophils Fluid Lymphocytes Fluid Other Cells CSF Appearance CSF Color CSF WBC CSF RBC CSF Neutrophils CSF Lymphocytes CSF Eosinophils CSF Basophils CSF Macrophages CSF Plasma Cells CSF Diff Comment CSF Comment CSF Glucose CSF Total Protein Pleural Monocytes Pleural Eosinophils Pleural Basophils Pleural Plasma Cells Pleural Histocytes Pleural Macrophages Pleural Mesothelial Pleural Diff Comment 05/27/19 05/27/19 10:25 12:37 WBC RBC Hgb Hct MCV MCH MCHC RDW Plt Count MPV PTT (Actin FS) Sodium Potassium Chloride Carbon Dioxide Anion Gap BUN Creatinine Est GFR (CKD-EPI)AfAm Est GFR (CKD-EPI)NonAf POC Glucometer 224 Random Glucose Calcium Total Bilirubin AST ALT Alkaline Phosphatase Total Protein Albumin Triglycerides 232 H Cholesterol 205 H Total LDL Cholesterol 130 H HDL Cholesterol 36 L Fluid Source Fluid WBC Fluid RBC Fluid Neutrophils Fluid Lymphocytes Fluid Other Cells CSF Appearance CSF Color CSF WBC CSF RBC CSF Neutrophils CSF Lymphocytes CSF Eosinophils CSF Basophils CSF Macrophages CSF Plasma Cells CSF Diff Comment CSF Comment CSF Glucose CSF Total Protein Pleural Monocytes Pleural Eosinophils Pleural Basophils Pleural Plasma Cells Pleural Histocytes Pleural Macrophages Pleural Mesothelial Pleural Diff Comment Active Medications Generic Name Dose Route Start Last Admin Trade Name Freq PRN Reason Stop Dose Admin Acetaminophen 650 mg 05/25/19 00:30 05/26/19 09:05 Tylenol - PO 650 mg Q6H PRN Administration Fever Or Pain Acetaminophen 500 mg 05/28/19 10:00 Tylenol - PO 06/01/19 10:01 DAILY ELISSA Amino Acids 30 ml 05/24/19 22:46 05/27/19 08:48 Prosource No Carb Liquid Pkt GT Not Given BID@0800,1730 [facility] Diltiazem HCl 30 mg 05/24/19 06:00 05/27/19 13:18 Cardizem - PO 30 mg TID ELISSA Administration Diphenhydramine HCl 50 mg 05/27/19 11:00 Benadryl Injection - IVPB 05/31/19 10:01 DAILY ELISSA Docusate Sodium 200 mg 05/24/19 22:44 Colace Liquid - GT DAILY PRN CONSTIPATION Ferrous Sulfate 300 mg 05/24/19 10:00 05/27/19 09:27 Feosol NGT 300 mg BID ELISSA Administration Meropenem 500 mg/ Dextrose 100 mls @ 200 mls/hr 05/24/19 02:00 05/27/19 10:16 IVPB 200 mls/hr Q8H-IV [facility]SA Administration Immune Globulin/ Immune 450 mls @ 72 mls/hr 05/27/19 11:30 Globulin IVPB 05/31/19 16:14 DAILY ELISSA Protocol Insulin Aspart 1 vial 05/24/19 12:45 05/27/19 06:03 Novolog Vial Sliding Scale - SQ Not Given ACHS [facility] Protocol Insulin Detemir 13 units 05/26/19 13:01 05/26/19 22:18 Levemir Vial SQ 13 units HS [facility] Administration Lisinopril 10 mg 05/24/19 13:22 05/27/19 09:27 Prinivil NGT 10 mg DAILY [facility] Administration Metoprolol Tartrate 25 mg 05/24/19 06:00 05/27/19 13:18 Lopressor - GT 25 mg TID [facility]SA Administration Nystatin 500,000 units 05/27/19 06:45 05/27/19 08:44 Nystatin Oral Suspension - PO 500,000 units Q6HPO [facility] Administration Pantoprazole Sodium 40 mg 05/24/19 10:00 05/27/19 09:27 Protonix Iv IVPUSH 40 mg DAILY [facility] Administration Polyethylene Glycol 17 gm 05/24/19 22:49 05/27/19 09:28 Miralax (For Daily Use) - GT Not Given DAILY [facility] Scopolamine HBr 1 patch 05/26/19 05:15 05/26/19 05:46 Transderm-Scop - TD 1 patch Q72H [facility] Administration Senna 8.8 mg 05/24/19 22:49 05/26/19 22:20 Senna Oral Solution - GT 8.8 mg HS [facility] Administration Thiamine HCl 200 mg 05/24/19 10:00 05/27/19 09:27 Vitamin B1 Injection - IVPB 200 mg DAILY [facility] Administration ASSESSMENT/PLAN: 53 y/o/m with PMHx of DM2, HFpEF(last EF: 45-50%), 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 #Acute Hypoxic and Hypercapneic Respiratory Failure; 2/2 Acute diastolic CHF vs. PNA -Intubated upon admission, extubated 05/09; then re-intubated 05/13/19; s/p trach . PEG tube placement completed today and IVIg to be initiated right after PEG placement per Neuro recommendations (Dr. Fuentes). -afebrile this AM. Pt will initiate AC when tube feeds begin which is tm. -Sputum cx: ESBL positive will s/w dr zepeda regarding abx adjustments; Currently on Meropenem 500 Q8H (previously on Zosyn). ID consulted. - BC 1 bottle positive with ? contaminant coag neg staph, sputum cx growing yeast like organism. - Nystatin oral suspension provided pt had thrush this AM. -Cont vent support and wean FiO2 as tolerated. #Cardiogenic Shock; 2/2 Acute Diastolic CHF vs. Septic Shock. Unclear etiology. -Resolved -ECHO- EF of 55-60%, no significant abnormalities noted, no vegetations. -Per cardio, recommend cardiac MRI as outpatient to assess sarcoidosis involvement. #Altered mental status and weakness; 2/2 ? Critical care induced myopathy -Neuro Consulted (Dr. Pleitez), Dr. Fuentes electronic bench technician coverage LP- showing elevated wbc with no wbc's indicating high suspicion for guillian lizabeth syndrome. Pt subsequently started on IVIg today. -Bedside EMG shows no evidence of myopathy, but cannot rule out myopathic process. -EEG(05/16/19): abn EEG, nonspecific finding of diffuse encephalopathy - Quantifuron, HIV, hepatitis panel sent for elevated LFT's #Atrial Flutter w/ RVR -Cont with Cardizem 30 TID GT and Lopressor 25 TID GT (Dilt drip, Digoxin previously discontinued) -Heparin drip on hold initially due to bleeding around trach site, G-tube placed today. #RYNE on CKD w/ hyperkalemia; Improved. Cr 1, K+ 4.1 -Nephro consulted -Cont Lisinopril 10mg QD given his improved renal function #DM2 -BGM/ISS ACHS -Inc Levemir to 18 U HS given glucose has been in 200's-300's after G tube placement and initiation of feeds. #FEN -free water fluid via NG tube -monitor and replete lytes as needed -Nephro feeds #Prophylaxis -Heparin drip held pending PEG placement -Protonix 40 daily Dispo: Pt up for transfer to SNF Visit type - Emergency Visit Emergency Visit: Yes ED Registration Date: 04/30/19 Care time: The patient presented to the Emergency Department on the above date and was hospitalized for further evaluation of their emergent condition. - New Patient This patient is new to me today: No - Critical Care Critical Care patient: No - Discharge Referral Referred to [facility] Med P.C.: No ATTENDING PHYSICIAN STATEMENT I saw and evaluated the patient. I reviewed the resident's note and discussed the case with the resident. I agree with the resident's findings and plan as documented. SUBJECTIVE: OBJECTIVE: ASSESSMENT AND PLAN:
--- NOTE | 2019-05-27 16:00 | PN ---
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, Physician History of Present Illness: Pt seen and examined at bedside. He is in the medical [facility]. He remains on vent. - Current Medication List Current Medications: Active Medications Acetaminophen (Tylenol -) 650 mg PO Q6H PRN PRN Reason: Fever Or Pain Last Admin: 05/26/19 09:05 Dose: 650 mg Acetaminophen (Tylenol -) 500 mg PO DAILY [facility] Stop: 06/01/19 10:01 Amino Acids (Prosource No Carb Liquid Pkt) 30 ml GT BID@0800,1730 [facility] Last Admin: 05/27/19 08:48 Dose: Not Given Diltiazem HCl (Cardizem -) 30 mg PO TID [facility] Last Admin: 05/27/19 13:18 Dose: 30 mg Diphenhydramine HCl (Benadryl Injection -) 50 mg IVPB DAILY [facility] Stop: 05/31/19 10:01 Docusate Sodium (Colace Liquid -) 200 mg GT DAILY PRN PRN Reason: CONSTIPATION Ferrous Sulfate (Feosol) 300 mg NGT BID [facility] Last Admin: 05/27/19 09:27 Dose: 300 mg Meropenem 500 mg/ Dextrose 100 mls @ 200 mls/hr IVPB Q8H-IV [facility] Last Admin: 05/27/19 10:16 Dose: 200 mls/hr Immune Globulin/ Immune (Globulin) 450 mls @ 72 mls/hr IVPB DAILY [facility]; Protocol Stop: 05/31/19 16:14 Insulin Aspart (Novolog Vial Sliding Scale -) 1 vial SQ ACHS [facility]; Protocol Last Admin: 05/27/19 06:03 Dose: Not Given Insulin Detemir (Levemir Vial) 13 units SQ HS [facility] Last Admin: 05/26/19 22:18 Dose: 13 units Lisinopril (Prinivil) 10 mg NGT DAILY [facility] Last Admin: 05/27/19 09:27 Dose: 10 mg Metoprolol Tartrate (Lopressor -) 25 mg GT TID [facility] Last Admin: 05/27/19 13:18 Dose: 25 mg Nystatin (Nystatin Oral Suspension -) 500,000 units PO Q6HPO [facility] Last Admin: 05/27/19 08:44 Dose: 500,000 units Pantoprazole Sodium (Protonix Iv) 40 mg IVPUSH DAILY [facility] Last Admin: 02/18/20 09:27 Dose: 40 mg Polyethylene Glycol (Miralax (For Daily Use) -) 17 gm GT DAILY [facility] Last Admin: 05/27/19 09:28 Dose: Not Given Scopolamine HBr (Transderm-Scop -) 1 patch TD Q72H [facility] Last Admin: 05/26/19 05:46 Dose: 1 patch Senna (Senna Oral Solution -) 8.8 mg GT HS [facility] Last Admin: 05/26/19 22:20 Dose: 8.8 mg Thiamine HCl (Vitamin B1 Injection -) 200 mg IVPB DAILY [facility] Last Admin: 05/27/19 09:27 Dose: 200 mg - Objective Vital Signs: Vital Signs Temperature 100.0 F H 05/27/19 15:53 Pulse Rate 107 H 05/27/19 15:53 Respiratory Rate 05/27/19 15:53 Blood Pressure 105/70 05/27/19 15:53 O2 Sat by Pulse Oximetry (%) 100 05/27/19 15:10 Constitutional: Yes: Calm Eyes: Yes: Conjunctiva Clear Neck: Yes: Other (trache) Cardiovascular: Yes: S1, S2 Respiratory: Yes: Mechanically Ventilated Gastrointestinal: Yes: Soft, Abdomen, Obese Genitourinary: Yes: Andrews Present Musculoskeletal: Yes: Muscle Weakness Edema: LLE: Trace, RLE: Trace Neurological: Yes: Other (awake but not interactive) Labs: CBC, BMP 05/27/19 05:30 05/27/19 05:30 INR, PTT INR 1.05 (0.83-1.09) 05/24/19 06:00 Problem List - Problems (1) Acute decompensated heart failure Code(s): I50.9 - HEART FAILURE, UNSPECIFIED (2) Atrial fibrillation and flutter Code(s): I48.91 - UNSPECIFIED ATRIAL FIBRILLATION; I48.92 - UNSPECIFIED ATRIAL FLUTTER (3) Hyperkalemia Code(s): E87.5 - HYPERKALEMIA (4) Pneumonia Code(s): J18.9 - PNEUMONIA, UNSPECIFIED ORGANISM Qualifiers: Pneumonia type: due to unspecified organism (5) Sarcoidosis of other sites Code(s): D86.89 - SARCOIDOSIS OF OTHER SITES Assessment/Plan Current Medications Generic Name Dose Route Start Last Admin Trade Name Freq PRN Reason Stop Dose Admin Acetaminophen 650 mg 05/25/19 00:30 05/26/19 09:05 Tylenol - PO 650 mg Q6H PRN Administration Fever Or Pain Acetaminophen 500 mg 05/28/19 10:00 Tylenol - PO 06/01/19 10:01 DAILY [facility] Amino Acids 30 ml 05/24/19 22:46 05/27/19 08:48 Prosource No Carb Liquid Pkt GT Not Given BID@0800,1730 [facility] Diltiazem HCl 30 mg 05/24/19 06:00 05/27/19 13:18 Cardizem - PO 30 mg TID [facility] Administration Diphenhydramine HCl 50 mg 05/27/19 11:00 Benadryl Injection - IVPB 05/31/19 10:01 DAILY [facility] Docusate Sodium 200 mg 05/24/19 22:44 Colace Liquid - GT DAILY PRN CONSTIPATION Ferrous Sulfate 300 mg 05/24/19 10:00 05/27/19 09:27 Feosol NGT 300 mg BID [facility] Administration Meropenem 500 mg/ Dextrose 100 mls @ 200 mls/hr 05/24/19 02:00 05/27/19 10:16 IVPB 200 mls/hr Q8H-IV [facility] Administration Immune Globulin/ Immune 450 mls @ 72 mls/hr 05/27/19 11:30 Globulin IVPB 05/31/19 16:14 DAILY [facility] Protocol Insulin Aspart 1 vial 05/24/19 12:45 05/27/19 06:03 Novolog Vial Sliding Scale - SQ Not Given ACHS [facility] Protocol Insulin Detemir 13 units 05/26/19 13:01 05/26/19 22:18 Levemir Vial SQ 13 units HS [facility] Administration Lisinopril 10 mg 05/24/19 13:22 05/27/19 09:27 Prinivil NGT 10 mg DAILY [facility] Administration Metoprolol Tartrate 25 mg 05/24/19 06:00 05/27/19 13:18 Lopressor - GT 25 mg TID [facility] Administration Nystatin 500,000 units 05/27/19 06:45 05/27/19 08:44 Nystatin Oral Suspension - PO 500,000 units Q6HPO [facility] Administration Pantoprazole Sodium 40 mg 05/24/19 10:00 05/27/19 09:27 Protonix Iv IVPUSH 40 mg DAILY [facility] Administration Polyethylene Glycol 17 gm 05/24/19 22:49 05/27/19 09:28 Miralax (For Daily Use) - GT Not Given DAILY [facility] Scopolamine HBr 1 patch 05/26/19 05:15 05/26/19 05:46 Transderm-Scop - TD 1 patch Q72H [facility] Administration Senna 8.8 mg 05/24/19 22:49 05/26/19 22:20 Senna Oral Solution - GT 8.8 mg HS [facility] Administration Thiamine HCl 200 mg 05/24/19 10:00 05/27/19 09:27 Vitamin B1 Injection - IVPB 200 mg DAILY [facility] Administration Impression 1. RYNE 2. hyperkalemia 3. resp failure requiring intubation 4. resp acidosis 5. dm 6. hx htn 7. sleep apnea 8. obesity 9. hx non compliance 10. chf 11. sarcoid 12. volume overload 13. hypernatremia Plan - sodium improved - neuro input appreciated - monitor lytes - resume lasix once feeds start - vent support - renal function stable on brian
[2019-05-27] MEDS: ACETAMINOPHEN 500 MG TABLET (FP) PO SCH (17:35)
[2019-05-27] MEDS: IMMUN GLOB IVPB SCH (18:23)
[2019-05-27] MEDS: IGA IVPB SCH (18:23)
[2019-05-27] MEDS: PRO IVPB SCH (18:23)
[2019-05-27] MEDS: PRO IMMUN GLOB IVPB SCH (18:23)
[2019-05-27] MEDS ORDERED: APIXABAN 5 MG TABLET PO SCH ×2 (22:00)
[2019-05-27] MEDS: SENNOSIDES 8.8 MG/5 ML BULK BOTTLE GT SCH (22:35)
[2019-05-28] MEDS ORDERED: MEROPENEM 500 MG VIAL (RESTRICTED TO ID) IVPB ONE ×3 (01:17→17:24)
[2019-05-28] MEDS ORDERED: DEXTROSE 5%-WATER 100 ML IVPB ONE ×3 (01:18→17:24)
[2019-05-28] MEDS: MEROPENEM 500 MG in DEXTROSE 5%-WATER 100 ML IVPB SCH ×3 (01:40→18:16)
[2019-05-28] MEDS: INSULIN (LEVEMIR) 100 UNITS/ML UNITS SQ SCH (06:03)
[2019-05-28] MEDS: INSULIN SLIDING SCALE (NOVOLOG) 1 VIAL SQ SCH ×4 (06:17→21:37)
[2019-05-28] MEDS: dilTIAZem HCL 30 MG TABLET (FP) PO SCH ×3 (06:25→21:26)
[2019-05-28] MEDS: NYSTATIN 500,000 UNITS/5 ML SUSPENSION PO SCH ×4 (06:25→23:43)
[2019-05-28] MEDS: METOPROLOL TARTRATE 25 MG TABLET (FP) GT SCH ×3 (06:25→21:26)
[2019-05-28] MEDS ORDERED: INSULIN (LEVEMIR) 100 UNITS/ML UNITS SQ SCH (07:00)
--- NOTE | 2019-05-28 07:29 | PN ---
Teaching Attending Note Name of Resident: Magnus Lloyd ATTENDING PHYSICIAN STATEMENT I saw and evaluated the patient. I reviewed the resident's note and discussed the case with the resident. I agree with the resident's findings and plan as documented. Seen and examined; please see resident note for further historical information. I personally verified all valadez historical information and exam findings. Personally interpreted all imaging and diagnostics and reviewed appropriate consults. I reviewed all labs and vital signs as per resident note and EMR as documented. I agree with the above assessment and plan unless supplemented by myself in the following. 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 I discussed this with neurology and we started the patient on IVIG infusion. This will delay the PEG tube placement given the fact that the patient will need to have the infusion started and monitored by nursing. PEG tube can be placed later today or tomorrow. We can continue feeding through Dobbhoff tube. Glycemic control is suboptimal. Continues on meropenem for ESBL growing up in the sputum. Seen by thoracic surgery for concern of oozing around tracheostomy. Per their service there is no evidence for potential for serious bleeding is a skin incision is taught and regular skin care was recommended and it is okay to anticoagulate from the perspective of the tracheostomy site. Patient is tolerating his IVIG, no significant change in neurologic exam. Following up with neurology. 10 item review of systems could not be obtained due to underlying clinical status VS, labs, imaging reviewed NAD, AAO, resting comfortably in bed and responds to verbal and painful stimuli. He is status post tracheostomy Heart rate within normal limits s1/2 no mgr Normal muscle tone, moves all 5 extremities with normal apparent strength Neck is supple, trachea midline, no fernanda LN. no oozing with tracheostomy site intact Lungs with ventilator associated breath sounds with sym expansion NT ND +BS no fernanda organomegaly CN2-12 wnl; no FND NC AT EOMI PERRLA Normal mood, appropriate behavior, euthymic affect No skin breakdown or rashes noted Assessment and plan: Patient with prolonged hospitalization status post respiratory failure due to pneumonia with potential component of diastolic CHF exacerbation potentially secondary to cardiac sarcoidosis with outpatient testing to be obtained. He is status post tracheostomy placement and has been cleared to resume anticoagulation from a surgical perspective with relation to this. 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 Neurology has opted to start IVIG therapy Problems include: -Ventilator dependent respiratory failure -Subacute mixed respiratory failure -Potential Selene Vigil syndrome -Anemia -Uncontrolled diabetes mellitus -Persistent atrial flutter versus paroxysmal atrial fibrillation on heparin, rate improved -ARDS, resolving -Biopsy-proven sarcoidosis, rule out cardiac sarcoidosis with outpatient biopsy -History of EMMY, noncompliant with CPAP -RYNE on CKD, nephrology following -Need for PEG tube, delaying until tomorrow -Morbid obesity, BMI 43 Full code Continue IVIG course; monitor for any decompensation which would imply a need for PLEX
--- NOTE | 2019-05-28 07:47 | PN ---
Physical Exam: SUBJECTIVE: Patient seen and examined. No acute events. OBJECTIVE: Vital Signs Period Temp Pulse Resp BP Sys/Kenyon Pulse Ox Last 24 Hr 98.2 F-100.4 F 51-125 18-201 91-146/46-84 96-100 GENERAL: The patient is awake, alert, and fully oriented, in no acute distress. NECK: Tracheostomy in place LUNGS: Breath sounds equal, clear to auscultation bilaterally, no wheezes, no crackles, no accessory muscle use. HEART: Regular rate and rhythm, S1, S2 without murmur, rub or gallop. ABDOMEN: Soft, nontender, nondistended. EXTREMITIES: 2+ pulses, warm, well-perfused, no edema. NEUROLOGICAL: able to respond to commands, wiggles toes and fingers to command, unable to speak, Laboratory Results - last 24 hr 05/27/19 05/27/19 05/27/19 05:30 05:30 05:30 WBC 6.5 RBC 3.98 L Hgb 9.9 L Hct 32.6 L MCV 81.7 MCH 24.9 L MCHC 30.5 L RDW 20.3 H Plt Count 173 MPV 9.1 PTT (Actin FS) 31.3 Sodium 145 Potassium 3.8 Chloride 106 Carbon Dioxide 32 Anion Gap 7 L BUN 37.9 H Creatinine 0.9 Est GFR (CKD-EPI)AfAm 114.21 Est GFR (CKD-EPI)NonAf 98.54 POC Glucometer Random Glucose 198 H Calcium 8.4 L Total Bilirubin 0.8 AST 17 ALT 36 Alkaline Phosphatase 83 Total Protein 5.2 L Albumin 2.1 L Triglycerides Cholesterol Total LDL Cholesterol HDL Cholesterol Hep C Ab Diagnostic HIV 1&2 Ag/Ab, 4th Gen 05/27/19 05/27/19 05/27/19 10:25 10:35 10:35 WBC RBC Hgb Hct MCV MCH MCHC RDW Plt Count MPV PTT (Actin FS) Sodium Potassium Chloride Carbon Dioxide Anion Gap BUN Creatinine Est GFR (CKD-EPI)AfAm Est GFR (CKD-EPI)NonAf POC Glucometer Random Glucose Calcium Total Bilirubin AST ALT Alkaline Phosphatase Total Protein Albumin Triglycerides 232 H Cholesterol 205 H Total LDL Cholesterol 130 H HDL Cholesterol 36 L Hep C Ab Diagnostic <0.1 HIV 1&2 Ag/Ab, 4th Gen Non reactive 05/27/19 05/27/19 05/27/19 12:37 16:55 22:51 WBC RBC Hgb Hct MCV MCH MCHC RDW Plt Count MPV PTT (Actin FS) Sodium Potassium Chloride Carbon Dioxide Anion Gap BUN Creatinine Est GFR (CKD-EPI)AfAm Est GFR (CKD-EPI)NonAf POC Glucometer 224 257 194 Random Glucose Calcium Total Bilirubin AST ALT Alkaline Phosphatase Total Protein Albumin Triglycerides Cholesterol Total LDL Cholesterol HDL Cholesterol Hep C Ab Diagnostic HIV 1&2 Ag/Ab, 4th Gen Active Medications Generic Name Dose Route Start Last Admin Trade Name Freq PRN Reason Stop Dose Admin Acetaminophen 650 mg 05/25/19 00:30 05/26/19 09:05 Tylenol - PO 650 mg Q6H PRN Administration Fever Or Pain Acetaminophen 500 mg 05/27/19 17:30 05/27/19 17:35 Tylenol - PO 05/31/19 10:01 500 mg DAILY [facility] Administration Amino Acids 30 ml 05/24/19 22:46 05/27/19 17:53 Prosource No Carb Liquid Pkt GT Not Given BID@0800,1730 [facility] Diltiazem HCl 30 mg 05/24/19 06:00 05/28/19 06:25 Cardizem - PO 30 mg TID [facility] Administration Diphenhydramine HCl 50 mg 05/27/19 11:00 05/27/19 17:53 Benadryl Injection - IVPB 05/31/19 10:01 50 mg DAILY [facility] Administration Docusate Sodium 200 mg 05/24/19 22:44 Colace Liquid - GT DAILY PRN CONSTIPATION Ferrous Sulfate 300 mg 05/24/19 10:00 05/27/19 22:41 Feosol NGT 300 mg BID [facility] Administration Meropenem 500 mg/ Dextrose 100 mls @ 200 mls/hr 05/24/19 02:00 05/28/19 01:40 IVPB 200 mls/hr Q8H-IV [facility] Administration Immune Globulin/ Immune 450 mls @ 72 mls/hr 05/27/19 11:30 05/27/19 18:23 Globulin IVPB 05/31/19 16:14 72 mls/hr DAILY [facility] Administration Protocol Insulin Aspart 1 vial 05/24/19 12:45 05/28/19 06:17 Novolog Vial Sliding Scale - SQ Not Given ACHS [facility] Protocol Insulin Detemir 18 units 05/28/19 07:00 05/28/19 06:03 Levemir Vial SQ Not Given AM [facility] Lisinopril 10 mg 05/24/19 13:22 05/27/19 09:27 Prinivil NGT 10 mg DAILY [facility] Administration Metoprolol Tartrate 25 mg 05/24/19 06:00 05/28/19 06:25 Lopressor - GT 25 mg TID [facility] Administration Nystatin 500,000 units 05/27/19 06:45 05/28/19 06:25 Nystatin Oral Suspension - PO 500,000 units Q6HPO [facility] Administration Pantoprazole Sodium 40 mg 05/24/19 10:00 05/27/19 09:27 Protonix Iv IVPUSH 40 mg DAILY [facility] Administration Polyethylene Glycol 17 gm 05/24/19 22:49 05/27/19 09:28 Miralax (For Daily Use) - GT Not Given DAILY [facility] Scopolamine HBr 1 patch 05/26/19 05:15 05/26/19 05:46 Transderm-Scop - TD 1 patch Q72H [facility] Administration Senna 8.8 mg 05/24/19 22:49 05/27/19 22:35 Senna Oral Solution - GT 8.8 mg HS [facility] Administration Thiamine HCl 200 mg 05/24/19 10:00 05/27/19 09:27 Vitamin B1 Injection - IVPB 200 mg DAILY [facility] Administration ASSESSMENT/PLAN: 53 y/o/m with PMHx of DM2, HFpEF(last EF: 45-50%), 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 #Acute Hypoxic and Hypercapneic Respiratory Failure; 2/2 Acute diastolic CHF vs. PNA -Intubated upon admission, extubated 05/09; then re-intubated 05/13/19; s/p trach . PEG tube placement completed yesterday, KUB confirmed placement, started tube feeds and continuing IVIg per neuro recs (Dr. Fuentes). If pt fails IVIG rx will need transfer for plasmapheresis. -100.1 temp this AM. Pt will initiate AC when tube feeds today - monitoring in ICU during IVIG therapy. -Sputum cx: ESBL positive will s/w dr zepeda regarding abx adjustments; Currently on Meropenem 500 Q8H (previously on Zosyn). ID consulted. - BC 1 bottle positive with ? contaminant coag neg staph, sputum cx growing yeast like organism. - Nystatin oral suspension provided pt had thrush this AM. -Cont vent support and wean FiO2 as tolerated. #Cardiogenic Shock; 2/2 Acute Diastolic CHF vs. Septic Shock. Unclear etiology. -Resolved -ECHO- EF of 55-60%, no significant abnormalities noted, no vegetations. -Per cardio, recommend cardiac MRI as outpatient to assess sarcoidosis involvement. #Altered mental status and weakness; 2/2 ? Critical care induced myopathy -Neuro Consulted (Dr. Pleitez), Dr. Fuentes certified recreational therapist coverage [facility]- showing elevated wbc with no wbc's indicating high suspicion for guillian lizabeth syndrome. Pt subsequently started on IVIg today. -Bedside EMG shows no evidence of myopathy, but cannot rule out myopathic process. -EEG(05/16/19): abn EEG, nonspecific finding of diffuse encephalopathy - Quantifuron, HIV, hepatitis panel sent for elevated LFT's #Atrial Flutter w/ RVR -Cont with Cardizem 30 TID GT and Lopressor 25 TID GT (Dilt drip, Digoxin previously discontinued) -Heparin drip on hold initially due to bleeding around trach site, G-tube placed today. #RYNE on CKD w/ hyperkalemia; Improved. Cr 1, K+ 4.1 -Nephro consulted -Cont Lisinopril 10mg QD given his improved renal function #DM2 -BGM/ISS ACHS -Inc Levemir to 18 U HS given glucose has been in 200's-300's after G tube placement and initiation of feeds. #FEN -free water fluid via NG tube -monitor and replete lytes as needed -Nephro feeds #Prophylaxis -Heparin drip held pending PEG placement -Protonix 40 daily Dispo: Pt up for transfer to SNF Visit type - Emergency Visit Emergency Visit: Yes ED Registration Date: 04/30/19 Care time: The patient presented to the Emergency Department on the above date and was hospitalized for further evaluation of their emergent condition. - New Patient This patient is new to me today: No - Critical Care Critical Care patient: Yes Total Critical Care Time (in minutes): 35 Critical Care Statement: The care of this patient involved high complexity decision making to prevent further life threatening deterioration of the patient 's condition and/or to evaluate & treat vital organ system(s) failure or risk of failure. - Discharge Referral Referred to [facility] Med P.C.: No ATTENDING PHYSICIAN STATEMENT I saw and evaluated the patient. I reviewed the resident's note and discussed the case with the resident. I agree with the resident's findings and plan as documented. SUBJECTIVE: OBJECTIVE: ASSESSMENT AND PLAN:
[2019-05-28 08:53] LABS: BASO % 0.7 % (0-2.0); HEMATOCRIT 30.8 % (35.4-49); HEMOGLOBIN 9.5 GM/dL (11.7-16.9); LYMPH % 4.9 % (8-40); MCH 25.4 pg (25.7-33.7); MCHC 30.9 g/dl (32.0-35.9); MEAN CELL VOLUME 82.3 fl (80-96); MEAN PLT VOLUME 9.5 fl (7.5-11.1); MONO % 7.1 % (3.8-10.2); NEUT % 86.3 % (42.8-82.8); PLATELET COUNT 141 K/MM3 (134-434); RBC 3.74 M/mm3 (4.00-5.60); RDW 19.7 % (11.9-15.9); WHITE BLOOD COUNT 5.3 K/mm3 (4.0-10.0)
--- NOTE | 2019-05-28 08:58 | PN ---
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 (short form) - Note 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: Neurology - History of Present Illness History of Present Illness: Covering for Dr. Pleitez 53-year-old right-handed man with multiple medical problem including diabetes mellitus coronary artery disease osteoarthritis chronic low back pain history of diastolic CHF who presented previously to [facility] to the emergency room with the chief complaint of shortness of breath. Hospital course was complicated by respiratory distress that required intubation patient was intubated and admitted to the medical ICU for a while patient was under the care of multiple specialists including chaplain resident and critical care. No report of any recent travel. More recently, this admission for shortness of breath with respiratory acidosis on ABG not feeling himself. Patient required intubation again chest x-ray was done. Neurology was called due to pupilary asymetry. Consult note reviewed from Dr. Pleitez. Hospitalist asked me to evaluate further regarding ongoing decline and assess to eval for Guillan [place]. Patient remains bedbound without participation in confrontation testing. Does have minimal reflexes speaking against likelihood for guillan barre. EMG from 04/30 reviewed and showed axonal neuropathy but could not rule out myopathy. For more definitive diagnosis, LP was completed and showed zero WBC but increased protein to 101 and increased glucose to 174. Elevated glucose may be due to underlying Hyperglycemia. The increase in protein with normal WBC is suspicious for guillian barre. Discussed with hospitalist on 05/27 and we agreed for trial of IVIG which was initiated on 05/27. patient also completed PEG on the same day Would require five-day course of IVIG and then possibly plasmapheresis which may require transfer. Hospitalist to look into if plasmapheresis would be able to be completed here.. Thus far no significant improvement on IVIG Active Medications Acetaminophen (Tylenol -) 650 mg PO Q6H PRN PRN Reason: Fever Or Pain Last Admin: 05/26/19 09:05 Dose: 650 mg Acetaminophen (Tylenol -) [address] [facility] Stop: 05/31/19 10:01 Last Admin: 05/27/19 17:35 Dose: 500 mg Amino Acids (Prosource No Carb Liquid Pkt) 30 ml GT BID@0800,1730 [facility] Last Admin: 05/27/19 17:53 Dose: Not Given Diltiazem HCl (Cardizem -) [address] [facility] Last Admin: 05/28/19 06:25 Dose: 30 mg Diphenhydramine HCl (Benadryl Injection -) [address] [facility] Stop: 05/31/19 10:01 Last Admin: 05/27/19 17:53 Dose: 50 mg Docusate Sodium (Colace Liquid -) 200 mg GT DAILY PRN PRN Reason: CONSTIPATION Ferrous Sulfate (Feosol) [address] [facility] Last Admin: 05/27/19 22:41 Dose: 300 mg Meropenem 500 mg/ Dextrose 100 mls @ 200 mls/hr IVPB Q8H-IV [facility] Last Admin: 05/28/19 01:40 Dose: 200 mls/hr Immune Globulin/ Immune (Globulin) 450 mls @ 72 mls/hr IVPB DAILY [facility]; Protocol Stop: 05/31/19 16:14 Last Admin: 05/27/19 18:23 Dose: 72 mls/hr Insulin Aspart (Novolog Vial Sliding Scale -) [address] [facility]; Protocol Last Admin: 05/28/19 06:17 Dose: Not Given Insulin Detemir (Levemir Vial) [address] [facility] Last Admin: 05/28/19 06:03 Dose: Not Given Lisinopril (Prinivil) [address] [facility] Last Admin: 05/27/19 09:27 Dose: 10 mg Metoprolol Tartrate (Lopressor -) [address] [facility] Last Admin: 05/28/19 06:25 Dose: 25 mg Nystatin (Nystatin Oral Suspension -) 500,[address] [facility] Last Admin: 05/28/19 06:25 Dose: 500,000 units Pantoprazole Sodium (Protonix Iv) [address] [facility] Last Admin: 05/27/19 09:27 Dose: 40 mg Polyethylene Glycol (Miralax (For Daily Use) -) [address] [facility] Last Admin: 05/27/19 09:28 Dose: Not Given Scopolamine HBr (Transderm-Scop -) [address] [facility] Last Admin: 05/26/19 05:46 Dose: 1 patch Senna (Senna Oral Solution -) 8.[address] [facility] Last Admin: 05/27/19 22:35 Dose: 8.8 mg Thiamine HCl (Vitamin B1 Injection -) 200 mg IVPB DAILY [facility] Last Admin: 05/27/19 09:27 Dose: 200 mg Physical Exam-Neuro Vital Signs: Vital Signs Period Temp Pulse Resp BP Sys/[place] Pulse Ox Last 24 Hr 98.2 F-100.4 F 51-125 18-201 91-146/46-84 96-100 - Neuro Exam awake, eyes open, not following commands pupils equal and reactive to light not participating in confrontation testing Minimal movements seen trace reflexes in patella CBCD WBC 6.5 K/mm3 (4.0-10.0) 05/27/19 05:30 RBC 3.98 M/mm3 (4.00-5.60) L 05/27/19 05:30 Hgb 9.9 GM/dL (11.7-16.9) L 05/27/19 05:30 Hct 32.6 % (35.4-49) L 05/27/19 05:30 MCV 81.7 fl (80-96) 05/27/19 05:30 MCHC 30.5 g/dl (32.0-35.9) L 05/27/19 05:30 RDW 20.3 % (11.9-15.9) H 05/27/19 05:30 Plt Count 173 K/MM3 (134-434) 05/27/19 05:30 MPV 9.1 fl (7.5-11.1) 05/27/19 05:30 CMP Sodium 145 mmol/L (136-145) 05/27/19 05:30 Potassium 3.8 mmol/L (3.5-5.1) 05/27/19 05:30 Chloride 106 mmol/L (98-107) 05/27/19 05:30 Carbon Dioxide 32 mmol/L (21-32) 05/27/19 05:30 Anion Gap 7 MMOL/L (8-16) L 05/27/19 05:30 BUN 37.9 mg/dL (7-18) H 05/27/19 05:30 Creatinine 0.9 mg/dL (0.55-1.3) 05/27/19 05:30 Random Glucose 198 mg/dL (74-106) H 05/27/19 05:30 Calcium 8.4 mg/dL (8.5-10.1) L 05/27/19 05:30 Total Bilirubin 0.8 mg/dL (0.2-1) 05/27/19 05:30 AST 17 U/L (15-37) 05/27/19 05:30 ALT 36 U/L (13-61) 05/27/19 05:30 Alkaline Phosphatase 83 U/L (45-117) 05/27/19 05:30 Total Protein 5.2 g/dl (6.4-8.2) L 05/27/19 05:30 Albumin 2.1 g/dl (3.4-5.0) L 05/27/19 05:30 CARDIAC ENZYMES Creatine Kinase 179 U/L (26-308) 05/11/19 05:55 Troponin I < 0.02 ng/ml (0.00-0.05) 05/05/19 05:30 ASSESSMENT/PLAN 53-year-old right-handed man with multiple medical problem including diabetes mellitus coronary artery disease osteoarthritis chronic low back pain history of diastolic CHF who presented previously to [facility] to the emergency room with the chief complaint of shortness of breath. Hospital course was complicated by respiratory distress that required intubation patient was intubated and admitted to the medical ICU for a while patient was under the care of multiple specialists including chaplain resident and critical care. No report of any recent travel. More recently, this admission for shortness of breath with respiratory acidosis on ABG not feeling himself. Patient required intubation again chest x-ray was done. Neurology was called due to pupilary asymetry. Consult note reviewed from Dr. Pleitez. Hospitalist asked me to evaluate further regarding ongoing decline and assess to eval for Guillan [place]. Patient remains bedbound without participation in confrontation testing. Does have minimal reflexes speaking against likelihood for guillan barre. EMG from 04/30 reviewed and showed axonal neuropathy but could not rule out myopathy. For more definitive diagnosis, LP was completed and showed zero WBC but increased protein to 101 and increased glucose to 174. Elevated glucose may be due to underlying Hyperglycemia. The increase in protein with normal WBC is suspicious for guillian barre. Discussed with hospitalist on 05/27 and we agreed for trial of IVIG which was initiated on 05/27. patient also completed PEG on the same day Would require five-day course of IVIG and then possibly plasmapheresis which may require transfer. Hospitalist to look into if plasmapheresis would be able to be completed here.. Thus far no significant improvement on IVIG
[2019-05-28 09:20] LABS: ALBUMIN 2.1 g/dl (3.4-5.0); BILIRUBIN,TOTAL 0.9 mg/dL (0.2-1); BLOOD UREA NITROGEN 47.2 mg/dL (7-18); CALCIUM 8.7 mg/dL (8.5-10.1); CREATININE 1.1 mg/dL (0.55-1.3); POTASSIUM 4.2 mmol/L (3.5-5.1); TOT PROT 6.4 g/dl (6.4-8.2)
[2019-05-28] MEDS: POLYETHYLENE GLYCOL 3350 119 GM BTL GT SCH (09:55)
[2019-05-28] MEDS: FERROUS SO4 300 MG/5 ML ORAL SOLN UNIT DOSE CUPS NGT SCH ×2 (09:55→21:27)
[2019-05-28] MEDS ORDERED: PT OWN MED DRAWER 7, Y5N ONE (09:57)
[2019-05-28] MEDS ORDERED: ACETAMINOPHEN 500 MG TABLET (FP) PO SCH (10:00)
[2019-05-28] MEDS: THIAMINE HCL 200 MG/2 ML VIAL IVPB SCH (10:12)
[2019-05-28] MEDS: AMINO ACIDS/PROTEIN HYDROLYS 30 ML LIQUID.PKT GT SCH ×2 (10:12→18:24)
[2019-05-28] MEDS: ACETAMINOPHEN 500 MG TABLET (FP) PO SCH (10:12)
[2019-05-28] MEDS: LISINOPRIL 10 MG TABLET (FP) NGT SCH (10:13)
[2019-05-28] MEDS: PANTOPRAZOLE SODIUM 40 MG VIAL IVPUSH SCH (10:14)
--- NOTE | 2019-05-28 11:21 | PN ---
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, Physician History of Present Illness: pulmonary sedated on vent support,ac mode,started in IVIG yesterday. - Current Medication List Current Medications: Active Medications Acetaminophen (Tylenol -) 650 mg PO Q6H PRN PRN Reason: Fever Or Pain Last Admin: 05/26/19 09:05 Dose: 650 mg Acetaminophen (Tylenol -) 500 mg PO DAILY [facility] Stop: 05/31/19 10:01 Last Admin: 05/28/19 10:12 Dose: 500 mg Amino Acids (Prosource No Carb Liquid Pkt) 30 ml GT BID@0800,1730 [facility] Last Admin: 05/28/19 10:12 Dose: 30 ml Atorvastatin Calcium (Lipitor -) 40 mg PO HS [facility] Diltiazem HCl (Cardizem -) 30 mg PO TID [facility] Last Admin: 05/28/19 06:25 Dose: 30 mg Diphenhydramine HCl (Benadryl Injection -) 50 mg IVPB DAILY [facility] Stop: 05/31/19 10:01 Last Admin: 05/28/19 10:12 Dose: 50 mg Docusate Sodium (Colace Liquid -) 200 mg GT DAILY PRN PRN Reason: CONSTIPATION Ferrous Sulfate (Feosol) 300 mg NGT BID [facility] Last Admin: 05/28/19 09:55 Dose: Not Given Meropenem 500 mg/ Dextrose 100 mls @ 200 mls/hr IVPB Q8H-IV [facility] Last Admin: 05/28/19 10:13 Dose: 200 mls/hr Immune Globulin/ Immune (Globulin) 450 mls @ 72 mls/hr IVPB DAILY [facility]; Protocol Stop: 05/31/19 16:14 Last Admin: 05/27/19 18:23 Dose: 72 mls/hr Insulin Aspart (Novolog Vial Sliding Scale -) 1 vial SQ ACHS [facility]; Protocol Last Admin: 05/28/19 06:17 Dose: Not Given Insulin Detemir (Levemir Vial) 18 units SQ AM [facility] Last Admin: 05/28/19 06:03 Dose: Not Given Lisinopril (Prinivil) 10 mg NGT DAILY [facility] Last Admin: 05/28/19 10:13 Dose: 10 mg Metoprolol Tartrate (Lopressor -) 25 mg GT TID [facility] Last Admin: 05/28/19 06:25 Dose: 25 mg Nystatin (Nystatin Oral Suspension -) 500,000 units PO Q6HPO [facility] Last Admin: 05/28/19 06:25 Dose: 500,000 units Pantoprazole Sodium (Protonix Iv) 40 mg IVPUSH DAILY [facility] Last Admin: 05/28/19 10:14 Dose: 40 mg Polyethylene Glycol (Miralax (For Daily Use) -) 17 gm GT DAILY [facility] Last Admin: 05/28/19 09:55 Dose: Not Given Scopolamine HBr (Transderm-Scop -) 1 patch TD Q72H [facility] Last Admin: 05/26/19 05:46 Dose: 1 patch Senna (Senna Oral Solution -) 8.8 mg GT HS [facility] Last Admin: 05/27/19 22:35 Dose: 8.8 mg Thiamine HCl (Vitamin B1 Injection -) 200 mg IVPB DAILY [facility] Last Admin: 05/28/19 10:12 Dose: 200 mg - Objective Vital Signs: Vital Signs Temperature 98.9 F 05/28/19 11:08 Pulse Rate 80 05/28/19 11:08 Respiratory Rate 20 05/28/19 11:08 Blood Pressure 117/76 05/28/19 11:08 O2 Sat by Pulse Oximetry (%) 100 05/28/19 08:24 Constitutional: Yes: Obese, Other (sedated) Eyes: Yes: WNL HENT: Yes: WNL Neck: Yes: WNL Cardiovascular: Yes: Regular Rate and Rhythm, S1, S2 Respiratory: Yes: Diminished Gastrointestinal: Yes: Normal Bowel Sounds, Soft Extremities: Yes: WNL Edema: No Labs: CBC, BMP 05/28/19 06:00 05/28/19 06:00 INR, PTT INR 1.05 (0.83-1.09) 05/24/19 06:00 Problem List - Problems (1) Acute on chronic renal failure Code(s): N17.9 - ACUTE KIDNEY FAILURE, UNSPECIFIED; N18.9 - CHRONIC KIDNEY DISEASE, UNSPECIFIED (2) Atrial fibrillation and flutter Code(s): I48.91 - UNSPECIFIED ATRIAL FIBRILLATION; I48.92 - UNSPECIFIED ATRIAL FLUTTER (3) Morbid obesity Code(s): E66.01 - MORBID (SEVERE) OBESITY DUE TO EXCESS CALORIES (4) Pneumonia Code(s): J18.9 - PNEUMONIA, UNSPECIFIED ORGANISM Qualifiers: Pneumonia type: due to unspecified organism (5) Sleep apnea Code(s): G47.30 - SLEEP APNEA, UNSPECIFIED (6) Type 2 diabetes mellitus Code(s): E11.9 - TYPE 2 DIABETES MELLITUS WITHOUT COMPLICATIONS Qualifiers: Diabetes mellitus fdc insulin use: without fdc use Diabetes mellitus complication detail: with chronic kidney disease Chronic kidney disease stage: stage 2 (mild) (7) Acute respiratory failure with hypoxia and hypercapnia Code(s): J96.01 - ACUTE RESPIRATORY FAILURE WITH HYPOXIA; J96.02 - ACUTE RESPIRATORY FAILURE WITH HYPERCAPNIA (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
--- NOTE | 2019-05-28 12:11 | PN ---
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, DIRECTOR POST - Note 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: Sleepy today. Per neurology-increase in protein with normal WBC is suspicious for guillian barre. Trial of IVIG , PEG insertion Suggest [facility] for rehabilitation/augmentation communication
--- NOTE | 2019-05-28 13:10 | PN ---
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, Physician History of Present Illness: Pt seen and examined at bedside. No great change in status. He remains on vent. - Current Medication List Current Medications: Active Medications Acetaminophen (Tylenol -) 650 mg PO Q6H PRN PRN Reason: Fever Or Pain Last Admin: 05/26/19 09:05 Dose: 650 mg Acetaminophen (Tylenol -) 500 mg PO DAILY [facility] Stop: 05/31/19 10:01 Last Admin: 05/28/19 10:12 Dose: 500 mg Amino Acids (Prosource No Carb Liquid Pkt) 30 ml GT BID@0800,1730 [facility] Last Admin: 05/28/19 10:12 Dose: 30 ml Atorvastatin Calcium (Lipitor -) 40 mg PO HS [facility] Diltiazem HCl (Cardizem -) 30 mg PO TID [facility] Last Admin: 05/28/19 06:25 Dose: 30 mg Diphenhydramine HCl (Benadryl Injection -) 50 mg IVPB DAILY [facility] Stop: 05/31/19 10:01 Last Admin: 05/28/19 10:12 Dose: 50 mg Docusate Sodium (Colace Liquid -) 200 mg GT DAILY PRN PRN Reason: CONSTIPATION Ferrous Sulfate (Feosol) 300 mg NGT BID [facility] Last Admin: 05/28/19 09:55 Dose: Not Given Meropenem 500 mg/ Dextrose 100 mls @ 200 mls/hr IVPB Q8H-IV [facility] Last Admin: 05/28/19 10:13 Dose: 200 mls/hr Immune Globulin/ Immune (Globulin) 450 mls @ 72 mls/hr IVPB DAILY [facility]; Protocol Stop: 05/31/19 16:14 Last Admin: 05/27/19 18:23 Dose: 72 mls/hr Insulin Aspart (Novolog Vial Sliding Scale -) 1 vial SQ ACHS [facility]; Protocol Last Admin: 05/28/19 12:18 Dose: Not Given Insulin Detemir (Levemir Vial) 18 units SQ AM [facility] Last Admin: 05/28/19 06:03 Dose: Not Given Lisinopril (Prinivil) 10 mg NGT DAILY [facility] Last Admin: 05/28/19 10:13 Dose: 10 mg Metoprolol Tartrate (Lopressor -) 25 mg GT TID [facility] Last Admin: 05/28/19 06:25 Dose: 25 mg Nystatin (Nystatin Oral Suspension -) 500,000 units PO Q6HPO [facility] Last Admin: 05/28/19 06:25 Dose: 500,000 units Pantoprazole Sodium (Protonix Iv) 40 mg IVPUSH DAILY [facility] Last Admin: 05/28/19 10:14 Dose: 40 mg Polyethylene Glycol (Miralax (For Daily Use) -) 17 gm GT DAILY [facility] Last Admin: 05/28/19 09:55 Dose: Not Given Scopolamine HBr (Transderm-Scop -) 1 patch TD Q72H [facility] Last Admin: 05/26/19 05:46 Dose: 1 patch Senna (Senna Oral Solution -) 8.8 mg GT HS [facility] Last Admin: 05/27/19 22:35 Dose: 8.8 mg Thiamine HCl (Vitamin B1 Injection -) 200 mg IVPB DAILY [facility] Last Admin: 05/28/19 10:12 Dose: 200 mg - Objective Vital Signs: Vital Signs Temperature 99 F 05/28/19 12:15 Pulse Rate 89 05/28/19 12:15 Respiratory Rate 20 05/28/19 12:15 Blood Pressure 153/79 05/28/19 12:15 O2 Sat by Pulse Oximetry (%) 100 05/28/19 08:24 Constitutional: Yes: Calm Eyes: Yes: Conjunctiva Clear HENT: Yes: Atraumatic Cardiovascular: Yes: S1, S2 Respiratory: Yes: Mechanically Ventilated Gastrointestinal: Yes: Soft, Abdomen, Obese Genitourinary: Yes: [place] Present Musculoskeletal: Yes: Muscle Weakness Edema: Yes Edema: LLE: 1+, RLE: 1+ Neurological: Yes: Lethargy Labs: CBC, BMP 05/28/19 06:00 05/28/19 06:00 INR, PTT INR 1.05 (0.83-1.09) 05/24/19 06:00 Problem List - Problems (1) Acute decompensated heart failure Code(s): I50.9 - HEART FAILURE, UNSPECIFIED (2) Atrial fibrillation and flutter Code(s): I48.91 - UNSPECIFIED ATRIAL FIBRILLATION; I48.92 - UNSPECIFIED ATRIAL FLUTTER (3) Hyperkalemia Code(s): E87.5 - HYPERKALEMIA (4) Pneumonia Code(s): J18.9 - PNEUMONIA, UNSPECIFIED ORGANISM Qualifiers: Pneumonia type: due to unspecified organism (5) Sarcoidosis of other sites Code(s): D86.89 - SARCOIDOSIS OF OTHER SITES Assessment/Plan Current Medications Generic Name Dose Route Start Last Admin Trade Name Freq PRN Reason Stop Dose Admin Acetaminophen 650 mg 05/25/19 00:30 05/26/19 09:05 Tylenol - PO 650 mg Q6H PRN Administration Fever Or Pain Acetaminophen 500 mg 05/27/19 17:30 05/28/19 10:12 Tylenol - PO 05/31/19 10:01 500 mg DAILY [facility] Administration Amino Acids 30 ml 05/24/19 22:46 05/28/19 10:12 Prosource No Carb Liquid Pkt GT 30 ml BID@0800,1730 [facility] Administration Atorvastatin Calcium 40 mg 05/28/19 22:00 Lipitor - PO HS [facility] Diltiazem HCl 30 mg 05/24/19 06:00 05/28/19 06:25 Cardizem - PO 30 mg TID [facility] Administration Diphenhydramine HCl 50 mg 05/27/19 11:00 05/28/19 10:12 Benadryl Injection - IVPB 05/31/19 10:01 50 mg DAILY [facility] Administration Docusate Sodium 200 mg 05/24/19 22:44 Colace Liquid - GT DAILY PRN CONSTIPATION Ferrous Sulfate 300 mg 05/24/19 10:00 05/28/19 09:55 Feosol NGT Not Given BID [facility] Meropenem 500 mg/ Dextrose 100 mls @ 200 mls/hr 05/24/19 02:00 05/28/19 10:13 IVPB 200 mls/hr Q8H-IV [facility] Administration Immune Globulin/ Immune 450 mls @ 72 mls/hr 05/27/19 11:30 05/27/19 18:23 Globulin IVPB 05/31/19 16:14 72 mls/hr DAILY [facility] Administration Protocol Insulin Aspart 1 vial 05/24/19 12:45 05/28/19 12:18 Novolog Vial Sliding Scale - SQ Not Given ACHS [facility] Protocol Insulin Detemir 18 units 05/28/19 07:00 05/28/19 06:03 Levemir Vial SQ Not Given AM [facility] Lisinopril 10 mg 05/24/19 13:22 05/28/19 10:13 Prinivil NGT 10 mg DAILY [facility] Administration Metoprolol Tartrate 25 mg 05/24/19 06:00 05/28/19 06:25 Lopressor - GT 25 mg TID [facility] Administration Nystatin 500,000 units 05/27/19 06:45 05/28/19 06:25 Nystatin Oral Suspension - PO 500,000 units Q6HPO [facility] Administration Pantoprazole Sodium 40 mg 05/24/19 10:00 05/28/19 10:14 Protonix Iv IVPUSH 40 mg DAILY [facility] Administration Polyethylene Glycol 17 gm 05/24/19 22:49 05/28/19 09:55 Miralax (For Daily Use) - GT Not Given DAILY [facility] Scopolamine HBr 1 patch 05/26/19 05:15 05/26/19 05:46 Transderm-Scop - TD 1 patch Q72H [facility] Administration Senna 8.8 mg 05/24/19 22:49 05/27/19 22:35 Senna Oral Solution - GT 8.8 mg HS [facility] Administration Thiamine HCl 200 mg 05/24/19 10:00 05/28/19 10:12 Vitamin B1 Injection - IVPB 200 mg DAILY [facility] Administration Impression 1. RYNE 2. hyperkalemia 3. resp failure requiring intubation 4. resp acidosis 5. dm 6. hx htn 7. sleep apnea 8. obesity 9. hx non compliance 10. chf 11. sarcoid 12. volume overload 13. hypernatremia Plan - sodium stable - will restart po lasix - monitor volume statu - monitor lytes - vent support - renal function stable on brian
[2019-05-28] MEDS: PRO IVPB SCH (15:30)
[2019-05-28] MEDS: PRO IMMUN GLOB IVPB SCH (15:30)
[2019-05-28] MEDS: IGA IVPB SCH (15:30)
[2019-05-28] MEDS: IMMUN GLOB IVPB SCH (15:30)
--- NOTE | 2019-05-28 15:40 | PN ---
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, Physician History of Present Illness: Patient received in ICU in stable condition. Patient transferred to ICU as IVIG administration requires cardiac monitoring and vented patients cannot go to 4w/4s. No complaints. - Current Medication List Current Medications: Active Medications Acetaminophen (Tylenol -) 650 mg PO Q6H PRN PRN Reason: Fever Or Pain Last Admin: 05/26/19 09:05 Dose: 650 mg Acetaminophen (Tylenol -) 500 mg PO DAILY [facility] Stop: 05/31/19 10:01 Last Admin: 05/28/19 10:12 Dose: 500 mg Amino Acids (Prosource No Carb Liquid Pkt) 30 ml GT BID@0800,1730 [facility] Last Admin: 05/28/19 10:12 Dose: 30 ml Apixaban (Eliquis -) 5 mg PEG BID [facility] Atorvastatin Calcium (Lipitor -) 40 mg PO HS [facility] Diltiazem HCl (Cardizem -) 30 mg PO TID [facility] Last Admin: 05/28/19 06:25 Dose: 30 mg Diphenhydramine HCl (Benadryl Injection -) 50 mg IVPB DAILY [facility] Stop: 05/31/19 10:01 Last Admin: 05/28/19 10:12 Dose: 50 mg Docusate Sodium (Colace Liquid -) 200 mg GT DAILY PRN PRN Reason: CONSTIPATION Ferrous Sulfate (Feosol) 300 mg NGT BID [facility] Last Admin: 05/28/19 09:55 Dose: Not Given Furosemide (Lasix Oral Solution -) 40 mg NGT DAILY [facility] Meropenem 500 mg/ Dextrose 100 mls @ 200 mls/hr IVPB Q8H-IV [facility] Last Admin: 05/28/19 10:13 Dose: 200 mls/hr Immune Globulin/ Immune (Globulin) 450 mls @ 72 mls/hr IVPB DAILY [facility]; Protocol Stop: 05/31/19 16:14 Last Admin: 05/27/19 18:23 Dose: 72 mls/hr Insulin Aspart (Novolog Vial Sliding Scale -) 1 vial SQ ACHS [facility]; Protocol Last Admin: 05/28/19 12:18 Dose: Not Given Insulin Detemir (Levemir Vial) 18 units SQ AM [facility] Last Admin: 05/28/19 06:03 Dose: Not Given Lisinopril (Prinivil) 10 mg NGT DAILY [facility] Last Admin: 05/28/19 10:13 Dose: 10 mg Metoprolol Tartrate (Lopressor -) 25 mg GT TID [facility] Last Admin: 05/28/19 06:25 Dose: 25 mg Nystatin (Nystatin Oral Suspension -) 500,000 units PO Q6HPO [facility] Last Admin: 05/28/19 13:12 Dose: 500,000 units Pantoprazole Sodium (Protonix Iv) 40 mg IVPUSH DAILY [facility] Last Admin: 05/28/19 10:14 Dose: 40 mg Polyethylene Glycol (Miralax (For Daily Use) -) 17 gm GT DAILY [facility] Last Admin: 05/28/19 09:55 Dose: Not Given Scopolamine HBr (Transderm-Scop -) 1 patch TD Q72H [facility] Last Admin: 05/26/19 05:46 Dose: 1 patch Senna (Senna Oral Solution -) 8.8 mg GT HS [facility] Last Admin: 05/27/19 22:35 Dose: 8.8 mg Thiamine HCl (Vitamin B1 Injection -) 200 mg IVPB DAILY [facility] Last Admin: 05/28/19 10:12 Dose: 200 mg - Objective Vital Signs: Vital Signs Temperature 99 F 05/28/19 12:15 Pulse Rate 89 05/28/19 12:15 Respiratory Rate 21 H 05/28/19 15:00 Blood Pressure 153/79 05/28/19 12:15 O2 Sat by Pulse Oximetry (%) 100 05/28/19 08:24 Constitutional: Yes: No Distress, Calm HENT: Yes: Atraumatic, Normocephalic Cardiovascular: Yes: Regular Rate and Rhythm, S1, S2. No: JVD, Gallop, Murmur, Rub Respiratory: Yes: Regular, CTA Bilaterally Gastrointestinal: Yes: Normal Bowel Sounds, Soft, Abdomen, Obese Labs: CBC, BMP 05/28/19 06:00 05/28/19 06:00 INR, PTT INR 1.05 (0.83-1.09) 05/24/19 06:00 Assessment/Plan 53 y/o/m with PMHx of DM2, HFpEF(last EF: 45-50%), 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 #neuro -awake and alert #Cardio -BP stable off pressors -Left CVC in place #Pulmonary -s/p trach and vented -no changes in neuro status #Immunology -patient dx w/ GBS via LP -IVIG per neuro -monitor patient during infusion #Prophy -protonix IV 40mg daily -AC held for G tube placement -Eliquis to resume this PM per primary team #Dispo -tele holdover in ICU
--- NOTE | 2019-05-28 17:56 | PN ---
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, Physician History of Present Illness: s/p tracheostomy AC Mode of vent 50% FiO2 PEEP 5, PEG. Aflutter with improved rate response. 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 - Current Medication List Current Medications: Active Medications Acetaminophen (Tylenol -) 650 mg PO Q6H PRN PRN Reason: Fever Or Pain Last Admin: 05/26/19 09:05 Dose: 650 mg Acetaminophen (Tylenol -) 500 mg PO DAILY [facility] Stop: 05/31/19 10:01 Last Admin: 05/28/19 10:12 Dose: 500 mg Amino Acids (Prosource No Carb Liquid Pkt) 30 ml GT BID@0800,1730 [facility] Last Admin: 05/28/19 10:12 Dose: 30 ml Apixaban (Eliquis -) 5 mg PEG BID [facility] Atorvastatin Calcium (Lipitor -) 40 mg PO HS [facility] Diltiazem HCl (Cardizem -) 30 mg PO TID [facility] Last Admin: 05/28/19 17:26 Dose: 30 mg Diphenhydramine HCl (Benadryl Injection -) 50 mg IVPB DAILY [facility] Stop: 05/31/19 10:01 Last Admin: 05/28/19 10:12 Dose: 50 mg Docusate Sodium (Colace Liquid -) 200 mg GT DAILY PRN PRN Reason: CONSTIPATION Ferrous Sulfate (Feosol) 300 mg NGT BID [facility] Last Admin: 05/28/19 09:55 Dose: Not Given Furosemide (Lasix Oral Solution -) 40 mg NGT DAILY [facility] Meropenem 500 mg/ Dextrose 100 mls @ 200 mls/hr IVPB Q8H-IV [facility] Last Admin: 05/28/19 10:13 Dose: 200 mls/hr Immune Globulin/ Immune (Globulin) 450 mls @ 72 mls/hr IVPB DAILY [facility]; Protocol Stop: 05/31/19 16:14 Last Admin: 05/28/19 15:30 Dose: 72 mls/hr Insulin Aspart (Novolog Vial Sliding Scale -) 1 vial SQ ACHS [facility]; Protocol Last Admin: 05/28/19 17:20 Dose: Not Given Insulin Detemir (Levemir Vial) 18 units SQ AM [facility] Last Admin: 05/28/19 06:03 Dose: Not Given Lisinopril (Prinivil) 10 mg NGT DAILY [facility] Last Admin: 05/28/19 10:13 Dose: 10 mg Metoprolol Tartrate (Lopressor -) 25 mg GT TID [facility] Last Admin: 05/28/19 17:26 Dose: 25 mg Nystatin (Nystatin Oral Suspension -) 500,000 units PO Q6HPO [facility] Last Admin: 05/28/19 13:12 Dose: 500,000 units Pantoprazole Sodium (Protonix Iv) 40 mg IVPUSH DAILY [facility] Last Admin: 05/28/19 10:14 Dose: 40 mg Polyethylene Glycol (Miralax (For Daily Use) -) 17 gm GT DAILY [facility] Last Admin: 05/28/19 09:55 Dose: Not Given Scopolamine HBr (Transderm-Scop -) 1 patch TD Q72H [facility] Last Admin: 05/26/19 05:46 Dose: 1 patch Senna (Senna Oral Solution -) 8.8 mg GT HS [facility] Last Admin: 05/27/19 22:35 Dose: 8.8 mg Thiamine HCl (Vitamin B1 Injection -) 200 mg IVPB DAILY [facility] Last Admin: 05/28/19 10:12 Dose: 200 mg - Objective Vital Signs: Vital Signs Temperature 99 F 05/28/19 16:45 Pulse Rate 100 H 05/28/19 16:45 Respiratory Rate 18 05/28/19 16:45 Blood Pressure 118/79 05/28/19 16:45 O2 Sat by Pulse Oximetry (%) 100 05/28/19 08:24 Constitutional: Yes: No Distress, Calm HENT: Yes: Other (Tracheostomy) Cardiovascular: Yes: Regular Rate and Rhythm Respiratory: Yes: Mechanically Ventilated, Rhonchi Gastrointestinal: Yes: Normal Bowel Sounds, Soft, Abdomen, Obese, Other (PEG in place) Genitourinary: Yes: Andrews Present Edema: Yes Edema: LLE: Trace, RLE: Trace Labs: CBC, BMP 05/28/19 06:00 05/28/19 06:00 INR, PTT INR 1.05 (0.83-1.09) 05/24/19 06:00 - ....Imaging EKG: Report Reviewed (Tele: Rate-controlled aflutter) Problem List - Problems (1) Pneumonia Code(s): J18.9 - PNEUMONIA, UNSPECIFIED ORGANISM Qualifiers: Pneumonia type: due to unspecified organism (2) Acute hypercapnic respiratory failure due to obstructive sleep apnea Code(s): J96.02 - ACUTE RESPIRATORY FAILURE WITH HYPERCAPNIA; G47.33 - OBSTRUCTIVE SLEEP APNEA (ADULT) (PEDIATRIC) (3) Acute decompensated heart failure Code(s): I50.9 - HEART FAILURE, UNSPECIFIED (4) Acute renal failure Code(s): N17.9 - ACUTE KIDNEY FAILURE, UNSPECIFIED Qualifiers: Acute renal failure type: unspecified Qualified Code(s): N17.9 - Acute kidney failure, unspecified (5) Sarcoidosis of other sites Code(s): D86.89 - SARCOIDOSIS OF OTHER SITES (6) Type 2 diabetes mellitus Code(s): E11.9 - TYPE 2 DIABETES MELLITUS WITHOUT COMPLICATIONS Qualifiers: Diabetes mellitus intermediate insulin use: without intermission coordinator use Diabetes mellitus complication detail: with chronic kidney disease Chronic kidney disease stage: stage 2 (mild) (7) Atrial fibrillation and flutter Code(s): I48.91 - UNSPECIFIED ATRIAL FIBRILLATION; I48.92 - UNSPECIFIED ATRIAL FLUTTER (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 Acute hypoxic and hypercapneic respiratory failure currently on mechanical ventilation via tracheostomy 2. Pneumonia, septic shock, Gram Positive Bacteremia and ARDS 3. Sarcoidosis confirmed by skin biopsy, r/o cardiac involvement 4. OSAS nonadherent to CPAP 5. Paroxysmal Aflutter/Afib with RVR 6. Acute on chronic diastolic heart failure 7. Acute on CKD with hyperkalemia resolved 8. Type 2 DM 9. Anemia 10. Possible Guillain [place] syndrome PLAN: 1. IVIG possible plasmapharesis, bronchodilator and enteral feeds 2. Vent manage per ABG, taper fiO2 to keep SpO2 >90% 3. Rate-control with uptitrate oral Lopressor 25 tid and Cardizem 30 tid as hemodynamics tolerate, IV Cardizem and Lopressor as needed and continue Eliquis 5 mg BID 4. Lasix 40 qd as needed with monitor renal function and electrolytes 5. Continue lisinopril 5 mg QD as renal function and hyperkalemia stabilized, Lipitor 40 qd 6. Follow up with Dr. Genaro Davila (cardiology at [place]). Consider cardiac PET or MRI to exclude cardiac involvement in sarcoidosis as outpatient
[2019-05-28] MEDS: FUROSEMIDE 40 MG/5 ML UNIT-DOSE CUP NGT SCH (18:21)
[2019-05-28] MEDS: SENNOSIDES 8.8 MG/5 ML BULK BOTTLE GT SCH (21:18)
[2019-05-28] MEDS: APIXABAN 5 MG TABLET PEG SCH (21:26)
[2019-05-28] MEDS: ATORVASTATIN CA 40 MG TABLET (FP) PO SCH (21:26)
[2019-05-29] MEDS ORDERED: DEXTROSE 5%-WATER 100 ML IVPB ONE ×2 (02:10→11:25)
[2019-05-29] MEDS ORDERED: MEROPENEM 500 MG VIAL (RESTRICTED TO ID) IVPB ONE ×2 (02:10→11:25)
[2019-05-29] MEDS: MEROPENEM 500 MG in DEXTROSE 5%-WATER 100 ML IVPB SCH (02:15)
[2019-05-29] MEDS: dilTIAZem HCL 30 MG TABLET (FP) PO SCH ×3 (05:16→22:00)
[2019-05-29] MEDS: NYSTATIN 500,000 UNITS/5 ML SUSPENSION PO SCH ×3 (05:16→17:20)
[2019-05-29] MEDS: METOPROLOL TARTRATE 25 MG TABLET (FP) GT SCH ×3 (05:16→22:00)
[2019-05-29] MEDS: SCOPOLAMINE HYDROBROMIDE 1 PATCH PATCH.TD72 TD SCH (05:16)
[2019-05-29 06:28] LABS: BASO % 0.8 % (0-2.0); EOS % 1.3 % (0-4.5); HEMATOCRIT 29.3 % (35.4-49); HEMOGLOBIN 9.1 GM/dL (11.7-16.9); LYMPH % 5.9 % (8-40); MCH 25.3 pg (25.7-33.7); MCHC 31.2 g/dl (32.0-35.9); MEAN PLT VOLUME 9.2 fl (7.5-11.1); MONO % 6.8 % (3.8-10.2); NEUT % 85.2 % (42.8-82.8); PLATELET COUNT 118 K/MM3 (134-434); RBC 3.61 M/mm3 (4.00-5.60); RDW 19.3 % (11.9-15.9)
[2019-05-29] MEDS: INSULIN (LEVEMIR) 100 UNITS/ML UNITS SQ SCH (06:43)
[2019-05-29] MEDS: INSULIN SLIDING SCALE (NOVOLOG) 1 VIAL SQ SCH ×4 (06:43→22:00)
[2019-05-29 06:50] LABS: ALBUMIN 1.8 g/dl (3.4-5.0); BILIRUBIN,TOTAL 0.9 mg/dL (0.2-1); BLOOD UREA NITROGEN 39.6 mg/dL (7-18); CALCIUM 8.4 mg/dL (8.5-10.1); CREATININE 0.9 mg/dL (0.55-1.3); POTASSIUM 4.6 mmol/L (3.5-5.1); TOT PROT 6.5 g/dl (6.4-8.2)
[2019-05-29] MEDS ORDERED: DOCUSATE NA 100 MG/10 ML UNIT-DOSE CUPS GT PRN (07:16)
[2019-05-29] MEDS ORDERED: ACETAMINOPHEN 650 MG/20.3 ML ORAL SOLUTION (CUPS) PO PRN (07:16)
[2019-05-29] MEDS ORDERED: ACETAMINOPHEN 650 MG/20.3 ML ORAL SOLUTION (CUPS) GT PRN (08:04)
--- NOTE | 2019-05-29 08:55 | PN ---
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 (short form) - Note 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: Neurology - History of Present Illness History of Present Illness: Covering for Dr. Pleitez 53-year-old right-handed man with multiple medical problem including diabetes mellitus coronary artery disease osteoarthritis chronic low back pain history of diastolic CHF who presented previously to [facility] to the emergency room with the chief complaint of shortness of breath. Hospital course was complicated by respiratory distress that required intubation patient was intubated and admitted to the medical ICU for a while patient was under the care of multiple specialists including activities volunteer and critical care. No report of any recent travel. More recently, this admission for shortness of breath with respiratory acidosis on ABG not feeling himself. Patient required intubation again chest x-ray was done. Neurology was called due to pupilary asymetry. Consult note reviewed from Dr. Pleitez. Hospitalist asked me to evaluate further regarding ongoing decline and assess to eval for Guillan [place]. Patient remains bedbound without participation in confrontation testing. Does have minimal reflexes speaking against likelihood for guillan barre. EMG from 04/30 reviewed and showed axonal neuropathy but could not rule out myopathy. For more definitive diagnosis, LP was completed and showed zero WBC but increased protein to 101 and increased glucose to 174. Elevated glucose may be due to underlying Hyperglycemia. The increase in protein with normal WBC is suspicious for guillian barre. Discussed with hospitalist on 05/27 and we agreed for trial of IVIG which was initiated on 05/27. patient also completed PEG on the same day. Would require five-day course of IVIG and then possibly plasmapheresis which may require transfer (currently day 3/5) and no significant improvement thus far. Hospitalist to look into if plasmapheresis would be able to be completed here. Patient opened eyes and briefly wiggled toes but no significant motor changes. Patient moved to ICU and critical care monitoring while on IVIG. Active Medications Acetaminophen (Tylenol -) 500 mg PO DAILY [facility] Stop: 05/31/19 10:01 Acetaminophen (Tylenol Oral Solution -) 650 mg GT Q6H PRN PRN Reason: Fever Or Pain Amino Acids (Prosource No Carb Liquid Pkt) 30 ml GT BID@0800,1730 [facility] Apixaban (Eliquis -) 5 mg PEG BID [facility] Last Admin: 05/28/19 21:26 Dose: 5 mg Atorvastatin Calcium (Lipitor -) 40 mg PO HS [facility] Last Admin: 05/28/19 21:26 Dose: 40 mg Diltiazem HCl (Cardizem -) 30 mg PO TID [facility] Diphenhydramine HCl (Benadryl Injection -) 50 mg IVPB DAILY [facility] Stop: 05/31/19 10:01 Docusate Sodium (Colace Liquid -) 200 mg GT DAILY PRN PRN Reason: CONSTIPATION Ferrous Sulfate (Feosol) 300 mg NGT BID [facility] Furosemide (Lasix Oral Solution -) 40 mg NGT DAILY [facility] Last Admin: 05/28/19 18:21 Dose: 40 mg Immune Globulin/ Immune (Globulin) 450 mls @ 72 mls/hr IVPB DAILY [facility]; Protocol Stop: 05/31/19 16:14 Meropenem 500 mg/ Dextrose 100 mls @ 200 mls/hr IVPB Q8H-IV [facility] Insulin Aspart (Novolog Vial Sliding Scale -) 1 vial SQ ACHS [facility]; Protocol Insulin Detemir (Levemir Vial) 18 units SQ AM [facility] Lisinopril (Prinivil) 10 mg NGT DAILY [facility] Metoprolol Tartrate (Lopressor -) 25 mg GT TID [facility] Nystatin (Nystatin Oral Suspension -) 500,000 units PO Q6HPO [facility] Pantoprazole Sodium (Protonix Iv) 40 mg IVPUSH DAILY [facility] Polyethylene Glycol (Miralax (For Daily Use) -) 17 gm GT DAILY [facility] Scopolamine HBr (Transderm-Scop -) 1 patch TD Q72H [facility] Senna (Senna Oral Solution -) 8.8 mg GT HS [facility] Thiamine HCl (Vitamin B1 Injection -) 200 mg IVPB DAILY [facility] Physical Exam-Neuro Vital Signs: Vital Signs Period Temp Pulse Resp BP Sys/[place] Pulse Ox Last 24 Hr 98.9 F-99.8 F 79-114 18-32 92-163/53-95 100-100 - Neuro Exam awake, eyes open, not following commands pupils equal and reactive to light not participating in confrontation testing Minimal movements seen trace reflexes in patella CBCD WBC 4.0 K/mm3 (4.0-10.0) 05/29/19 05:37 RBC 3.61 M/mm3 (4.00-5.60) L 05/29/19 05:37 Hgb 9.1 GM/dL (11.7-16.9) L 05/29/19 05:37 Hct 29.3 % (35.4-49) L 05/29/19 05:37 MCV 81.0 fl (80-96) 05/29/19 05:37 MCHC 31.2 g/dl (32.0-35.9) L 05/29/19 05:37 RDW 19.3 % (11.9-15.9) H 05/29/19 05:37 Plt Count 118 K/MM3 (134-434) L 05/29/19 05:37 MPV 9.2 fl (7.5-11.1) 05/29/19 05:37 CMP Sodium 141 mmol/L (136-145) 05/29/19 05:37 Potassium 4.6 mmol/L (3.5-5.1) 05/29/19 05:37 Chloride 106 mmol/L (98-107) 05/29/19 05:37 Carbon Dioxide 30 mmol/L (21-32) 05/29/19 05:37 Anion Gap 5 MMOL/L (8-16) L 05/29/19 05:37 BUN 39.6 mg/dL (7-18) H 05/29/19 05:37 Creatinine 0.9 mg/dL (0.55-1.3) 05/29/19 05:37 Random Glucose 130 mg/dL (74-106) H 05/29/19 05:37 Calcium 8.4 mg/dL (8.5-10.1) L 05/29/19 05:37 Total Bilirubin 0.9 mg/dL (0.2-1) 05/29/19 05:37 AST 27 U/L (15-37) 05/29/19 05:37 ALT 26 U/L (13-61) 05/29/19 05:37 Alkaline Phosphatase 68 U/L (45-117) 05/29/19 05:37 Total Protein 6.5 g/dl (6.4-8.2) 05/29/19 05:37 Albumin 1.8 g/dl (3.4-5.0) L 05/29/19 05:37 CARDIAC ENZYMES Creatine Kinase 179 U/L (26-308) 05/11/19 05:55 Troponin I < 0.02 ng/ml (0.00-0.05) 05/05/19 05:30 ASSESSMENT/PLAN 53-year-old right-handed man with multiple medical problem including diabetes mellitus coronary artery disease osteoarthritis chronic low back pain history of diastolic CHF who presented previously to [facility] to the emergency room with the chief complaint of shortness of breath. Hospital course was complicated by respiratory distress that required intubation patient was intubated and admitted to the medical ICU for a while patient was under the care of multiple specialists including activities volunteer and critical care. No report of any recent travel. More recently, this admission for shortness of breath with respiratory acidosis on ABG not feeling himself. Patient required intubation again chest x-ray was done. Neurology was called due to pupilary asymetry. Consult note reviewed from Dr. Pleitez. Hospitalist asked me to evaluate further regarding ongoing decline and assess to eval for Guillan Deridder. Patient remains bedbound without participation in confrontation testing. Does have minimal reflexes speaking against likelihood for guillan barre. EMG from 04/30 reviewed and showed axonal neuropathy but could not rule out myopathy. For more definitive diagnosis, LP was completed and showed zero WBC but increased protein to 101 and increased glucose to 174. Elevated glucose may be due to underlying Hyperglycemia. The increase in protein with normal WBC is suspicious for guillian barre. Discussed with hospitalist on 05/27 and we agreed for trial of IVIG which was initiated on 05/27. patient also completed PEG on the same day. Would require five-day course of IVIG and then possibly plasmapheresis which may require transfer (currently day 3/5) and no significant improvement thus far. Hospitalist to look into if plasmapheresis would be able to be completed here. Patient opened eyes and briefly wiggled toes but no significant motor changes. Patient moved to ICU and critical care monitoring while on IVIG. Continue to monitor neurologic status, supportive care , continue mechanical ventilation assess for any improvements in respiration. Critical care time 35 mins.
--- NOTE | 2019-05-29 09:02 | PN ---
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, Physician History of Present Illness: s/p tracheostomy awake on AC Mode of vent 50% FiO2 PEEP 5, PEG. Aflutter with improved rate response. 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 No clinical response thus far. - Current Medication List Current Medications: Active Medications Acetaminophen (Tylenol -) 500 mg PO DAILY [facility] Stop: 05/31/19 10:01 Acetaminophen (Tylenol Oral Solution -) 650 mg GT Q6H PRN PRN Reason: Fever Or Pain Amino Acids (Prosource No Carb Liquid Pkt) 30 ml GT BID@0800,1730 [facility] Apixaban (Eliquis -) 5 mg PEG BID [facility] Last Admin: 05/28/19 21:26 Dose: 5 mg Atorvastatin Calcium (Lipitor -) 40 mg PO HS [facility] Last Admin: 05/28/19 21:26 Dose: 40 mg Diltiazem HCl (Cardizem -) 30 mg PO TID [facility] Diphenhydramine HCl (Benadryl Injection -) 50 mg IVPB DAILY [facility] Stop: 05/31/19 10:01 Docusate Sodium (Colace Liquid -) 200 mg GT DAILY PRN PRN Reason: CONSTIPATION Ferrous Sulfate (Feosol) 300 mg NGT BID [facility] Furosemide (Lasix Oral Solution -) 40 mg NGT DAILY [facility] Last Admin: 05/28/19 18:21 Dose: 40 mg Immune Globulin/ Immune (Globulin) 450 mls @ 72 mls/hr IVPB DAILY [facility]; Protocol Stop: 05/31/19 16:14 Meropenem 500 mg/ Dextrose 100 mls @ 200 mls/hr IVPB Q8H-IV [facility] Insulin Aspart (Novolog Vial Sliding Scale -) 1 vial SQ ACHS [facility]; Protocol Insulin Detemir (Levemir Vial) 18 units SQ AM [facility] Lisinopril (Prinivil) 10 mg NGT DAILY [facility] Metoprolol Tartrate (Lopressor -) 25 mg GT TID [facility] Nystatin (Nystatin Oral Suspension -) 500,000 units PO Q6HPO [facility] Pantoprazole Sodium (Protonix Iv) 40 mg IVPUSH DAILY [facility] Polyethylene Glycol (Miralax (For Daily Use) -) 17 gm GT DAILY [facility] Scopolamine HBr (Transderm-Scop -) 1 patch TD Q72H [facility] Senna (Senna Oral Solution -) 8.8 mg GT HS [facility] Thiamine HCl (Vitamin B1 Injection -) 200 mg IVPB DAILY [facility] - Objective Vital Signs: Vital Signs Temperature 98.9 F 05/29/19 06:00 Pulse Rate 80 05/29/19 08:29 Respiratory Rate 18 05/29/19 08:29 Blood Pressure 136/86 05/29/19 08:00 O2 Sat by Pulse Oximetry (%) 100 05/29/19 08:36 Constitutional: Yes: No Distress, Calm HENT: Yes: Other (Tracheostomy) Neck: Yes: Supple Cardiovascular: Yes: Regular Rate and Rhythm Respiratory: Yes: Mechanically Ventilated Gastrointestinal: Yes: Normal Bowel Sounds, Soft, Abdomen, Obese, Other (PEG in place) Edema: No Labs: CBC, BMP 05/29/19 05:37 05/29/19 05:37 INR, PTT INR 1.05 (0.83-1.09) 05/24/19 06:00 - ....Imaging EKG: Report Reviewed (Tele: Rate-controlled aflutter) Problem List - Problems (1) Pneumonia Code(s): J18.9 - PNEUMONIA, UNSPECIFIED ORGANISM Qualifiers: Pneumonia type: due to unspecified organism (2) Acute hypercapnic respiratory failure due to obstructive sleep apnea Code(s): J96.02 - ACUTE RESPIRATORY FAILURE WITH HYPERCAPNIA; G47.33 - OBSTRUCTIVE SLEEP APNEA (ADULT) (PEDIATRIC) (3) Acute decompensated heart failure Code(s): I50.9 - HEART FAILURE, UNSPECIFIED (4) Acute renal failure Code(s): N17.9 - ACUTE KIDNEY FAILURE, UNSPECIFIED Qualifiers: Acute renal failure type: unspecified Qualified Code(s): N17.9 - Acute kidney failure, unspecified (5) Sarcoidosis of other sites Code(s): D86.89 - SARCOIDOSIS OF OTHER SITES (6) Type 2 diabetes mellitus Code(s): E11.9 - TYPE 2 DIABETES MELLITUS WITHOUT COMPLICATIONS Qualifiers: Diabetes mellitus nursing home insulin use: without nursing home use Diabetes mellitus complication detail: with chronic kidney disease Chronic kidney disease stage: stage 2 (mild) (7) Atrial fibrillation and flutter Code(s): I48.91 - UNSPECIFIED ATRIAL FIBRILLATION; I48.92 - UNSPECIFIED ATRIAL FLUTTER (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 Acute hypoxic and hypercapneic respiratory failure currently on mechanical ventilation via tracheostomy 2. Post pneumonia, septic shock, Gram Positive Bacteremia and ARDS 3. Sarcoidosis confirmed by skin biopsy, r/o cardiac involvement 4. OSAS nonadherent to CPAP 5. Paroxysmal Aflutter/Afib with RVR 6. Acute on chronic diastolic heart failure 7. Acute on CKD with hyperkalemia resolved 8. Type 2 DM 9. Anemia 10. 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 IVIG possible plasmapharesis, bronchodilator and enteral feeds 2. Vent manage per ABG, taper fiO2 to keep SpO2 >90% 3. Rate-control with uptitrate oral Lopressor 25 tid and Cardizem 30 tid as hemodynamics tolerate, IV Cardizem and Lopressor as needed and continue Eliquis 5 mg BID 4. Lasix 40 qd as needed with monitor renal function and electrolytes 5. Continue lisinopril 5 mg QD as renal function and hyperkalemia stabilized, Lipitor 40 qd 6. Follow up with Dr. Genaro Davila (cardiology at [place]). Consider cardiac PET or MRI to exclude cardiac involvement in sarcoidosis as outpatient
[2019-05-29] MEDS ORDERED: PANTOPRAZOLE SODIUM 40 MG VIAL IVPUSH SCH (10:00)
[2019-05-29] MEDS ORDERED: MEROPENEM 500 MG in DEXTROSE 5%-WATER 100 ML IVPB SCH (10:00)
[2019-05-29] MEDS: APIXABAN 5 MG TABLET PEG SCH ×2 (11:29→22:00)
[2019-05-29] MEDS: AMINO ACIDS/PROTEIN HYDROLYS 30 ML LIQUID.PKT GT SCH ×2 (11:31→22:00)
[2019-05-29] MEDS: THIAMINE HCL 200 MG/2 ML VIAL IVPB SCH (11:31)
[2019-05-29] MEDS ORDERED: PT OWN MED DRAWER 7, Y5N ONE (11:34)
[2019-05-29] MEDS: FERROUS SO4 300 MG/5 ML ORAL SOLN UNIT DOSE CUPS NGT SCH ×2 (11:34→22:00)
--- NOTE | 2019-05-29 11:34 | PN ---
Teaching Attending Note Name of Resident: Zoë Schmidt ATTENDING PHYSICIAN STATEMENT I saw and evaluated the patient. I reviewed the resident's note and discussed the case with the resident. I agree with the resident's findings and plan as documented. SUBJECTIVE: Pt seen and examined in the ICU. Tolerating IVIG. Heart rates controlled. Placed on SIMV. OBJECTIVE: Vital Signs Period Temp Pulse Resp BP Sys/[place] Pulse Ox Last 24 Hr 98.6 F-99.8 F 79-114 18-32 92-163/53-95 100-100 Intake & Output 05/26/19 05/27/19 05/28/19 05/29/19 23:59 23:59 23:59 23:59 Intake Total 1000 100 962 110 Output Total 4798 041 7527 1000 Balance -400 -600 -38 -890 Gen: vented, awake Heart: irregular Lung: decreased breath sounds at the bases Abd: softly distended, nontender, +G tube Ext: trace edema CBC, BMP 05/29/19 05:37 05/29/19 05:37 Active Medications Acetaminophen (Tylenol -) 500 mg PO DAILY [facility] Stop: 05/31/19 10:01 Acetaminophen (Tylenol Oral Solution -) 650 mg GT Q6H PRN PRN Reason: Fever Or Pain Amino Acids (Prosource No Carb Liquid Pkt) 30 ml GT BID@0800,1730 [facility] Apixaban (Eliquis -) 5 mg PEG BID [facility] Last Admin: 05/28/19 21:26 Dose: 5 mg Atorvastatin Calcium (Lipitor -) 40 mg PO HS [facility] Last Admin: 05/28/19 21:26 Dose: 40 mg Diltiazem HCl (Cardizem -) 30 mg PO TID [facility] Diphenhydramine HCl (Benadryl Injection -) 50 mg IVPB DAILY [facility] Stop: 05/31/19 10:01 Docusate Sodium (Colace Liquid -) 200 mg GT DAILY PRN PRN Reason: CONSTIPATION Ferrous Sulfate (Feosol) 300 mg NGT BID [facility] Furosemide (Lasix Oral Solution -) 40 mg NGT DAILY [facility] Last Admin: 05/28/19 18:21 Dose: 40 mg Immune Globulin/ Immune (Globulin) 450 mls @ 72 mls/hr IVPB DAILY [facility]; Protocol Stop: 05/31/19 16:14 Meropenem 500 mg/ Dextrose 100 mls @ 200 mls/hr IVPB Q8H-IV [facility] Insulin Aspart (Novolog Vial Sliding Scale -) 1 vial SQ ACHS [facility]; Protocol Insulin Detemir (Levemir Vial) 18 units SQ AM [facility] Lisinopril (Prinivil) 10 mg NGT DAILY [facility] Metoprolol Tartrate (Lopressor -) 25 mg GT TID [facility] Nystatin (Nystatin Oral Suspension -) 500,000 units PO Q6HPO [facility] Pantoprazole Sodium (Protonix Iv) 40 mg IVPUSH DAILY [facility] Polyethylene Glycol (Miralax (For Daily Use) -) 17 gm GT DAILY [facility] Scopolamine HBr (Transderm-Scop -) 1 patch TD Q72H [facility] Senna (Senna Oral Solution -) 8.8 mg GT HS [facility] Thiamine HCl (Vitamin B1 Injection -) 200 mg IVPB DAILY [facility] ASSESSMENT AND PLAN: Acute Hypoxic and Hypercapneic Respiratory Failure s/p tracheostomy Pneumonia Gram Positive Bacteremia Septic Shock resolved Lactic Acidosis resolved ARDS resolved Paroxysmal Atrial Fluter with RVR Acute on Chronic Diastolic Heart Failure Acute on Chronic Renal Failure r/o Guillian [place] Syndrome DM Anemia Sarcoidosis - continue antibiotics - rate control - continue anticoagulation - lasix - monitor urine output, creatinine - IVIG per neuro - spontaneous breathing trials as tolerated - PMV trial - enteral feeds - DVT/GI prophylaxis
[2019-05-29] MEDS: FUROSEMIDE 40 MG/5 ML UNIT-DOSE CUP NGT SCH (11:35)
[2019-05-29] MEDS: LISINOPRIL 10 MG TABLET (FP) NGT SCH (11:35)
--- NOTE | 2019-05-29 11:39 | PN ---
Teaching Attending Note Name of Resident: Magnus Lloyd ATTENDING PHYSICIAN STATEMENT I saw and evaluated the patient. I reviewed the resident's note and discussed the case with the resident. I agree with the resident's findings and plan as documented. Spoke with neurology and they recommended given the constellation of circumstances to see if we could facilitate transfer to a new facility where the patient would be able to have Plex provided on a quicker basis. Spoke with [place] who declined to accept the patient, elucidating availability at [facility], discussed with neurology. Patient is noted to be moving his toes Seen and examined; please see resident note for further historical information. I personally verified all valadez historical information and exam findings. Personally interpreted all imaging and diagnostics and reviewed appropriate consults. I reviewed all labs and vital signs as per resident note and EMR as documented. I agree with the above assessment and plan unless supplemented by myself in the following. 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 I discussed this with neurology and we started the patient on IVIG infusion. This will delay the PEG tube placement given the fact that the patient will need to have the infusion started and monitored by nursing. PEG tube can be placed later today or tomorrow. We can continue feeding through Dobbhoff tube. Glycemic control is suboptimal. Continues on meropenem for ESBL growing up in the sputum. Seen by thoracic surgery for concern of oozing around tracheostomy. Per their service there is no evidence for potential for serious bleeding is a skin incision is taught and regular skin care was recommended and it is okay to anticoagulate from the perspective of the tracheostomy site. Patient is tolerating his IVIG, no significant change in neurologic exam. Following up with neurology. 10 item review of systems could not be obtained due to underlying clinical status VS, labs, imaging reviewed NAD, AAO, resting comfortably in bed and responds to verbal and painful stimuli. He is status post tracheostomy Heart rate within normal limits s1/2 no mgr Normal muscle tone, moves all 5 extremities with normal apparent strength Neck is supple, trachea midline, no fernanda LN. no oozing with tracheostomy site intact Lungs with ventilator associated breath sounds with sym expansion NT ND +BS no fernanda organomegaly CN2-12 wnl; no FND NC AT EOMI PERRLA Normal mood, appropriate behavior, euthymic affect No skin breakdown or rashes noted Assessment and plan: Patient with prolonged hospitalization status post respiratory failure due to pneumonia with potential component of diastolic CHF exacerbation potentially secondary to cardiac sarcoidosis with outpatient testing to be obtained. He is status post tracheostomy placement and has been cleared to resume anticoagulation from a surgical perspective with relation to this. 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 Neurology has opted to start IVIG therapy Problems include: -Ventilator dependent respiratory failure -Subacute mixed respiratory failure -Potential Selene Vigil syndrome -Anemia -Uncontrolled diabetes mellitus -Persistent atrial flutter versus paroxysmal atrial fibrillation on heparin, rate improved -ARDS, resolving -Biopsy-proven sarcoidosis, rule out cardiac sarcoidosis with outpatient biopsy -History of EMMY, noncompliant with CPAP -RYNE on CKD, nephrology following -Need for PEG tube, delaying until tomorrow -Morbid obesity, BMI 43 Full code Continue IVIG course; monitor for any decompensation which would imply a need for PLEX
--- NOTE | 2019-05-29 12:05 | PN ---
Physical Exam: SUBJECTIVE: Patient seen and examined. No acute events overnight. OBJECTIVE: Vital Signs Period Temp Pulse Resp BP Sys/Kenyon Pulse Ox Last 24 Hr 98.6 F-99.8 F 79-114 18-32 92-163/53-95 100-100 GENERAL: The patient is awake and alert. Able to follow most commands and nod to questions. HEAD: Normal with no signs of trauma. ENT: Ears normal, nares patent, oropharynx clear without exudates, moist mucous membranes. Trach placed, no erythema, discharge or signs of infection. LUNGS: Mechanical ventilation. Scattered ronchi. No wheezes or crackles. HEART: Regular rate and rhythm, S1, S2 without murmur, rub or gallop. ABDOMEN: Soft, nontender, nondistended, normoactive bowel sounds, no guarding, no rebound, no hepatosplenomegaly, no masses. EXTREMITIES: 2+ pulses,warm, well-perfused, no edema. NEUROLOGICAL: Unable to assess. SKIN: Warm, dry, normal turgor, no rashes or lesions noted Laboratory Results - last 24 hr 05/28/19 05/28/19 05/28/19 12:14 17:18 21:33 WBC RBC Hgb Hct MCV MCH MCHC RDW Plt Count MPV Absolute Neuts (auto) Neutrophils % Lymphocytes % Monocytes % Eosinophils % Basophils % Nucleated RBC % PTT (Actin FS) Sodium Potassium Chloride Carbon Dioxide Anion Gap BUN Creatinine Est GFR (CKD-EPI)AfAm Est GFR (CKD-EPI)NonAf POC Glucometer 163 158 148 Random Glucose Calcium Total Bilirubin AST ALT Alkaline Phosphatase Total Protein Albumin Active Medications Acetaminophen (Tylenol -) 500 mg PO DAILY [facility] Stop: 05/31/19 10:01 Acetaminophen (Tylenol Oral Solution -) 650 mg GT Q6H PRN PRN Reason: Fever Or Pain Amino Acids (Prosource No Carb Liquid Pkt) 30 ml GT BID@0800,1730 [facility] Apixaban (Eliquis -) 5 mg PEG BID [facility] Last Admin: 05/28/19 21:26 Dose: 5 mg Atorvastatin Calcium (Lipitor -) 40 mg PO HS [facility] Last Admin: 05/28/19 21:26 Dose: 40 mg Diltiazem HCl (Cardizem -) 30 mg PO TID [facility] Diphenhydramine HCl (Benadryl Injection -) 50 mg IVPB DAILY [facility] Stop: 05/31/19 10:01 Docusate Sodium (Colace Liquid -) 200 mg GT DAILY PRN PRN Reason: CONSTIPATION Ferrous Sulfate (Feosol) 300 mg NGT BID [facility] Furosemide (Lasix Oral Solution -) 40 mg NGT DAILY [facility] Last Admin: 05/28/19 18:21 Dose: 40 mg Immune Globulin/ Immune (Globulin) 450 mls @ 72 mls/hr IVPB DAILY ELISSA; Protocol Stop: 05/31/19 16:14 Meropenem 500 mg/ Dextrose 100 mls @ 200 mls/hr IVPB Q8H-IV [facility]ISSA Insulin Aspart (Novolog Vial Sliding Scale -) 1 vial SQ ACHS ELISSA; Protocol Insulin Detemir (Levemir Vial) 18 units SQ AM [facility]SA Lisinopril (Prinivil) 10 mg NGT DAILY [facility] Metoprolol Tartrate (Lopressor -) 25 mg GT TID [facility]SA Nystatin (Nystatin Oral Suspension -) 500,000 units PO Q6HPO [facility] Pantoprazole Sodium (Protonix -) 40 mg PO DAILY [facility] Polyethylene Glycol (Miralax (For Daily Use) -) 17 gm GT DAILY [facility] Scopolamine HBr (Transderm-Scop -) 1 patch TD Q72H ELISSA Senna (Senna Oral Solution -) 8.8 mg GT HS ELISSA Thiamine HCl (Vitamin B1 Injection -) 200 mg IVPB DAILY [facility] ASSESSMENT/PLAN: Patient is a 53 year old male with PMH of TIIDM, HFpEF (last EF 45-50%), EMMY (non-adherent to CPAP) and atrial flutter, with acute hypoxic hypercapneic respiratory failure, found to have ARDS. Patient was extubated, and required reintubation due to mental status. Neuro: -Pt is awake and alert when sedation is held. Sedated on Precedex and Propofol -CT head (05/13/19): no acute hemorrhage or infarcts -Daily sedation vacation to assess mental status -Bedside EMG shows no evidence of myopathy, but cannot rule out myopathic process. Presumptive diagnosis of GBS -Pt receiving IVIG, requires tele monitoring and vent patients cannot go to 4W/4S Cardiovascular: -Central line changed 05/20/19 -PMH of aflutter, HFpEF -Hx of paroxysmal Aflutter/Afib with RVR -Pt stable off pressors -Cont oral cardizem 30mg TID, oral lopressor 25mg TID, and lisinopril 10mg daily -D/c heparin drip and now on Eliquis 5 mg BID -Cardiology following (Dr. Encinas, Dr. King), appreciate recommendations Pulmonary: -Acute hypoxic and hypercapneic respiratory failure, presenting with ARDS - resolved -Started on CPAP with SBT as tolerated -Pt s/p tracheostomy by Dr. Lawson on 05/22/19 -PMV trial -Atrovent nebulizer PRN Renal: -Andrews catheter changed 05/19/19 -Nephro following (Dr. Kelley) -Cont lasix 40mg daily -Monitor urine output -D/c fluids -Creatinine improved @ 0.9, cont to monitor -Free water replacement via NG tube- 250 cc Water Q6H -Can resume lisinopril 10mg QD once renal function improves GI: -Protonix 40 mg IV daily -Promote tube feeds -Cont miralax, senna, colace ID: -Sputum cx: ESBL -Cont IV meropenem (Day 6) -ID following (Dr. Lang) Endo: -BGM better controlled -Cont 18units qam and ISS with BGM TIDAC F: No standing IVF E: Replete lytes prn N: Nepro Tube Feeds DVT: Pt on eliquis GI: Protonix Central line changed on 05/19/19. Dispo: -Cont to monitor in ICU Visit type - Emergency Visit Emergency Visit: No - New Patient This patient is new to me today: No - Critical Care Critical Care patient: Yes Total Critical Care Time (in minutes): 45 Critical Care Statement: The care of this patient involved high complexity decision making to prevent further life threatening deterioration of the patient's condition and/or to evaluate & treat vital organ system(s) failure or risk of failure. ATTENDING PHYSICIAN STATEMENT I saw and evaluated the patient. I reviewed the resident's note and discussed the case with the resident. I agree with the resident's findings and plan as documented. SUBJECTIVE: OBJECTIVE: ASSESSMENT AND PLAN:
--- NOTE | 2019-05-29 12:14 | PN ---
Physical Exam: SUBJECTIVE: Patient seen, will need to have his central line removed and have a new peripheral mid line placed potentially. Dr. Dave aware. OBJECTIVE: Vital Signs Period Temp Pulse Resp BP Sys/Kenyon Pulse Ox Last 24 Hr 98.6 F-99.8 F 79-114 18-32 92-163/53-95 100-100 GENERAL: The patient is awake, alert, and fully oriented, in no acute distress. NECK: Tracheostomy in place LUNGS: Breath sounds equal, clear to auscultation bilaterally, no wheezes, no crackles, no accessory muscle use. HEART: Regular rate and rhythm, S1, S2 without murmur, rub or gallop. ABDOMEN: Soft, nontender, nondistended. EXTREMITIES: 2+ pulses, warm, well-perfused, 1+ edema. NEUROLOGICAL: able to respond to commands, wiggles toes and fingers to command, improving able to lift his legs against gravity for a second, unable to speak, Laboratory Results - last 24 hr 05/28/19 05/28/19 05/28/19 12:14 17:18 21:33 WBC RBC Hgb Hct MCV MCH MCHC RDW Plt Count MPV Absolute Neuts (auto) Neutrophils % Lymphocytes % Monocytes % Eosinophils % Basophils % Nucleated RBC % PTT (Actin FS) Sodium Potassium Chloride Carbon Dioxide Anion Gap BUN Creatinine Est GFR (CKD-EPI)AfAm Est GFR (CKD-EPI)NonAf POC Glucometer 163 158 148 Random Glucose Calcium Total Bilirubin AST ALT Alkaline Phosphatase Total Protein Albumin 05/29/19 05/29/19 05/29/19 05:37 05:37 05:37 WBC 4.0 RBC 3.61 L Hgb 9.1 L Hct 29.3 L MCV 81.0 MCH 25.3 L MCHC 31.2 L RDW 19.3 H Plt Count 118 L MPV 9.2 Absolute Neuts (auto) 3.4 Neutrophils % 85.2 H Lymphocytes % 5.9 L D Monocytes % 6.8 Eosinophils % 1.3 Basophils % 0.8 Nucleated RBC % 0 PTT (Actin FS) 30.7 Sodium 141 Potassium 4.6 Chloride 106 Carbon Dioxide 30 Anion Gap 5 L BUN 39.6 H Creatinine 0.9 Est GFR (CKD-EPI)AfAm 114.21 Est GFR (CKD-EPI)NonAf 98.54 POC Glucometer Random Glucose 130 H Calcium 8.4 L Total Bilirubin 0.9 AST 27 ALT 26 Alkaline Phosphatase 68 Total Protein 6.5 Albumin 1.8 L 05/29/19 06:25 WBC RBC Hgb Hct MCV MCH MCHC RDW Plt Count MPV Absolute Neuts (auto) Neutrophils % Lymphocytes % Monocytes % Eosinophils % Basophils % Nucleated RBC % PTT (Actin FS) Sodium Potassium Chloride Carbon Dioxide Anion Gap BUN Creatinine Est GFR (CKD-EPI)AfAm Est GFR (CKD-EPI)NonAf POC Glucometer 117 Random Glucose Calcium Total Bilirubin AST ALT Alkaline Phosphatase Total Protein Albumin Active Medications Generic Name Dose Route Start Last Admin Trade Name Freq PRN Reason Stop Dose Admin Acetaminophen 500 mg 05/29/19 10:00 Tylenol - PO 05/31/19 10:01 DAILY ELISSA Acetaminophen 650 mg 05/29/19 08:04 Tylenol Oral Solution - GT Q6H PRN Fever Or Pain Amino Acids 30 ml 05/29/19 08:00 05/29/19 11:31 Prosource No Carb Liquid Pkt GT 30 ml BID@0800,1730 ELISSA Administration Apixaban 5 mg 05/28/19 22:00 05/29/19 11:29 Eliquis - PEG 5 mg BID ELISSA Administration Atorvastatin Calcium 40 mg 05/28/19 22:00 05/28/19 21:26 Lipitor - PO 40 mg HS ELISSA Administration Diltiazem HCl 30 mg 05/29/19 14:00 Cardizem - PO TID ELISSA Diphenhydramine HCl 50 mg 05/29/19 10:00 Benadryl Injection - IVPB 05/31/19 10:01 DAILY ELISSA Docusate Sodium 200 mg 05/29/19 07:16 05/29/19 11:29 Colace Liquid - GT 200 mg DAILY PRN Administration CONSTIPATION Ferrous Sulfate 300 mg 05/29/19 10:00 05/29/19 11:34 Feosol NGT 300 mg BID ELISSA Administration Furosemide 40 mg 05/28/19 13:15 05/29/19 11:35 Lasix Oral Solution - NGT 40 mg DAILY ELISSA Administration Immune Globulin/ Immune 450 mls @ 72 mls/hr 05/29/19 10:00 Globulin IVPB 05/31/19 16:14 DAILY [facility] Protocol Meropenem 500 mg/ Dextrose 100 mls @ 200 mls/hr 05/29/19 10:00 05/29/19 11:30 IVPB 200 mls/hr Q8H-IV ELISSA Administration Insulin Aspart 1 vial 05/29/19 11:00 Novolog Vial Sliding Scale - SQ ACHS [facility] Protocol Insulin Detemir 18 units 05/30/19 07:00 Levemir Vial SQ AM ELISSA Lisinopril 10 mg 05/29/19 10:00 05/29/19 11:35 Prinivil NGT 10 mg DAILY ELISSA Administration Metoprolol Tartrate 25 mg 05/29/19 14:00 Lopressor - GT TID ELISSA Nystatin 500,000 units 05/29/19 12:00 Nystatin Oral Suspension - PO Q6HPO ELISSA Pantoprazole Sodium 40 mg 05/29/19 12:00 Protonix - PO DAILY [facility]ISSA Polyethylene Glycol 17 gm 05/29/19 10:00 Miralax (For Daily Use) - GT DAILY [facility] Scopolamine HBr 1 patch 06/01/19 05:15 Transderm-Scop - TD Q72H ELISSA Senna 8.8 mg 05/29/19 22:00 Senna Oral Solution - GT HS ELISSA Thiamine HCl 200 mg 05/29/19 10:00 05/29/19 11:31 Vitamin B1 Injection - IVPB 200 mg DAILY [facility]ISSA Administration ASSESSMENT/PLAN: 53 y/o/m with PMHx of DM2, HFpEF(last EF: 45-50%), 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 #Acute Hypoxic and Hypercapneic Respiratory Failure; 2/2 Acute diastolic CHF vs. PNA -Intubated upon admission, extubated 05/09; then re-intubated 05/13/19; s/p trach . - started tube feeds and continuing IVIg per neuro recs (Dr. Fuentes). If pt fails IVIG rx will need transfer for plasmapheresis. -afebrile overnight. Pt will initiate AC when tube feeds today - monitoring in ICU during IVIG therapy. - Sputum cx: ESBL positive will s/w dr zepeda regarding abx adjustments; Currently on Meropenem 500 Q8H (previously on Zosyn). ID consulted awaiting their recommendations. - BC 1 bottle positive with ? contaminant coag neg staph, sputum cx growing yeast like organism. - Nystatin oral suspension provided pt had thrush this AM. -Cont vent support and wean FiO2 as tolerated. - pt status on exam is improving on IVIG. #Cardiogenic Shock; 2/2 Acute Diastolic CHF vs. Septic Shock. Unclear etiology. -Resolved -ECHO- EF of 55-60%, no significant abnormalities noted, no vegetations. -Per cardio, recommend cardiac MRI as outpatient to assess sarcoidosis involvement. #Altered mental status and weakness; 2/2 ? Critical care induced myopathy -Neuro Consulted (Dr. Pleitez), Dr. 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 Pt subsequently started on IVIg today. -Bedside EMG shows no evidence of myopathy, but cannot rule out myopathic process. -EEG(05/16/19): abnl EEG, nonspecific finding of diffuse encephalopathy - Quantifuron, HIV, hepatitis panel sent for elevated LFT's #Atrial Flutter w/ RVR -Cont with Cardizem 30 TID GT and Lopressor 25 TID GT (Dilt drip, Digoxin previously discontinued) -Heparin drip on hold initially due to bleeding around trach site, G-tube placed today. #RYNE on CKD w/ hyperkalemia; Improved. Cr 1, K+ 4.1 -Nephro consulted -Cont Lisinopril 10mg QD given his improved renal function #DM2 -BGM/ISS ACHS -Inc Levemir to 18 U HS given glucose has been in 200's-300's after G tube placement and initiation of feeds. #FEN -free water fluid via NG tube -monitor and replete lytes as needed -Nephro feeds #Prophylaxis -Heparin drip held pending PEG placement -Protonix 40 daily Dispo: Pt will be monitored with IVIG therapy and then will assess need for plasmapheresis vs transfer. Visit type - Emergency Visit Emergency Visit: Yes ED Registration Date: 04/30/19 Care time: The patient presented to the Emergency Department on the above date and was hospitalized for further evaluation of their emergent condition. - New Patient This patient is new to me today: No - Critical Care Critical Care patient: Yes Total Critical Care Time (in minutes): 35 Critical Care Statement: The care of this patient involved high complexity decision making to prevent further life threatening deterioration of the patient 's condition and/or to evaluate & treat vital organ system(s) failure or risk of failure. - Discharge Referral Referred to [facility] No ATTENDING PHYSICIAN STATEMENT I saw and evaluated the patient. I reviewed the resident's note and discussed the case with the resident. I agree with the resident's findings and plan as documented. SUBJECTIVE: OBJECTIVE: ASSESSMENT AND PLAN:
[2019-05-29] MEDS: ACETAMINOPHEN 500 MG TABLET (FP) PO SCH (12:22)
[2019-05-29] MEDS: IGA IVPB SCH (13:29)
[2019-05-29] MEDS: PRO IMMUN GLOB IVPB SCH (13:29)
[2019-05-29] MEDS: PRO IVPB SCH (13:29)
[2019-05-29] MEDS: IMMUN GLOB IVPB SCH (13:29)
[2019-05-29] MEDS: PANTOPRAZOLE 40 MG TABLET PO SCH (13:51)
--- NOTE | 2019-05-29 14:27 | CONSULT ---
Passy-Betsy Layne Valve Eval - Assessment Prior to PMV Placement Patient and/or family educated re PMV: Yes Mental Status: Awake, Alert, Attempting to Communicate O2 Sat by Pulse Oximetry (%): 100 Secretions: Small Amount Patient on Ventilator: Yes Patient on Trach Collar: No Suctioned: Yes Trach Type: Shiley Trach Size: 8.0 Inner Cannula Removed: No Cuff Status: Inflated Passy-Aranza Valve in Place - Speech Characteristics Able to Phonate with PMV in place: Yes Voice Loudness: Moderately Soft/Quiet Voice Pitch: Normal Voice Phonatory-based Quality: Dysphonia (intermittent) Speech Pattern: Impaired Speech Clarity: < 50% Nasal Resonance: Hypernasal Articulation: Imprecise Rate of Speech: Too Fast Voice, Other Observations: Inadequate Breath Support - Assessment with PMV in Place O2 Sat by Pulse Oximetry (%): 100 Change in Mental Status with PMV in Place: No Able to Manage Secretions: Yes Length of time with PMV in place: 15 min. fatigues - Recommendations Recommendations: PMV as tolerated (with family present. Fatigues- use for short periods, increase as tolerated to expedite weaning, enable communication, improveupper airway function and swallowing.), Remove PMV while sleeping, Monitor Pulse Ox PMV on, Supervision while PMV on (staff/family, per protocol)
--- NOTE | 2019-05-29 14:34 | PN ---
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 Pt was able to speak on ventilator, low volume, reduced articulatory precision, managed his secretions. Able to cough and clear secretions but not expectorate from oral cavity.Pt fatigues, with increased difficulty taking deep breaths and increasing volume. Volume moderately to severely impaired on phrase level. Pt was able to take deep breath and increase volume on single words - moderately impaired. Suggest-PMVuse for short periods, increase as tolerated to expedite weaning, enable communication, improve upper airway function and swallowing.
--- NOTE | 2019-05-29 14:39 | CONSULT ---
Admitting History and Physical - Primary Care Physician PCP: Ace Llanos - Smoking History Smoking history: Former smoker Have you smoked in the past 12 months: No If you are a former smoker, when did you quit?: 25 yrs ago - Alcohol/Substance Use Hx Alcohol Use: No History - Admission Reason For Visit: ACUTE RENAL FAILURE,HYTPERKALEMIA,ACUTE DDECOMPENS - General Mental Status: Awake and Alert, Able to Follow Commands (closes eyes, sticks out tongue weakly, unable to phonate although he attempts) Attention: Distractible, Mild Impairment Ability to Follow Directions: Fair (seems to understand) Head/Neck Control: Needs Assist - Hearing Hearing: Functional Speech Evaluation - Communication Primary Language: AZERI Communication: Yes: Non-Communicable Oral Expression Ability: Yes: Non-Verbal, Non-Vocal - Speech Characteristics Voice Loudness: Moderately Soft/Quiet Voice Pitch: Yes: Normal Voice Phonatory-based Quality: Yes: Dysphonia (intermittent) Speech Pattern: Impaired Speech Clarity: < 50% Nasal Resonance: Hypernasal Articulation: Yes: Imprecise Rate of Speech: Too Fast Voice, Other Observations: Yes: Inadequate Breath Support - Language/Verbal Expression Functional Communication Status: Yes: Severely Impaired - Swallow Evaluation/Bedside Assessment Current Nutritional Intake: NPO, G Tube (to be started later today) Dentition: Yes: Adequate Facial Symmetry at Rest: Symmetrical Facial Symmetry on Retraction: Symmetrical (Moderate to severe bilateral facial weakness) Jaw Position: Open at Rest Against Resistance Opening: Weak Against Resistance Closing: Weak Pucker Lips: Reduced ROM, Weak Smile: Reduced ROM, Weak Lingual Movement: Symmetric, Reduced Protrusion (improving) Lingual Speed of Movement: Reduced Lingual Movement Strgth Against Opposition: Reduced Lingual Movement Characteristics: Normal Velopharyngeal Movement: Hypernasality Laryngeal Movement: Reduced Excursion, Labored,delay initiation, Reduced Velocity Needs Assistance: Yes Rate of Intake: WFL Bolus Size: Small Labial Seal: WFL Oral Prep Time: Increased Timing of Swallow: Delayed Coughing/Throat Clear: Yes (thin) Change in Voice: Yes (vocal wetness thin liquid) Recommendations - Speech Evaluation, Impression/Plan Impression: Swallowing assessed with puree on PMV with cuff deflation. Swallowing is recoveing. Still at aspiration risk, especially on liquids. Pt on IVIG tx requiring close monitoring. PEG placed, pending initiation of TF today. - Dysphagia Impressions/Plan Swallowing Skills: Impaired Dysphagia Impressions: Moderate Impairment, Suspect Aspiration *Silent aspiration: cannot be R/O at bedside Recommendations: Modified Barium Swallow (when able to be brought down to radiology), Passy Aranza Valve (daily, as tolerated, increasing time to expedite weaning from ventilator, improve upper airway function and swallowing and to allow pt to communicate.), Other (GT feedings, HOB elevated at all times, mouth care) - Recommendations Diet Consistency: NPO Liquids: NPO
[2019-05-29] MEDS: POLYETHYLENE GLYCOL 3350 119 GM BTL GT SCH (14:52)
--- NOTE | 2019-05-29 15:51 | PN ---
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, Physician History of Present Illness: Pt seen and examined at bedside. He is now in the ICU. He remains on a vent. He is getting IVIG. - Current Medication List Current Medications: Active Medications Acetaminophen (Tylenol -) 500 mg PO DAILY [facility] Stop: 05/31/19 10:01 Last Admin: 05/29/19 12:22 Dose: 500 mg Acetaminophen (Tylenol Oral Solution -) 650 mg GT Q6H PRN PRN Reason: Fever Or Pain Amino Acids (Prosource No Carb Liquid Pkt) 30 ml GT BID@0800,1730 [facility] Last Admin: 05/29/19 11:31 Dose: 30 ml Apixaban (Eliquis -) 5 mg PEG BID [facility] Last Admin: 05/29/19 11:29 Dose: 5 mg Atorvastatin Calcium (Lipitor -) 40 mg PO HS [facility] Last Admin: 05/28/19 21:26 Dose: 40 mg Diltiazem HCl (Cardizem -) 30 mg PO TID [facility] Last Admin: 05/29/19 13:58 Dose: 30 mg Diphenhydramine HCl (Benadryl Injection -) 50 mg IVPB DAILY [facility] Stop: 05/31/19 10:01 Last Admin: 05/29/19 12:23 Dose: 50 mg Docusate Sodium (Colace Liquid -) 200 mg GT DAILY PRN PRN Reason: CONSTIPATION Last Admin: 05/29/19 11:29 Dose: 200 mg Ferrous Sulfate (Feosol) 300 mg NGT BID [facility] Last Admin: 05/29/19 11:34 Dose: 300 mg Furosemide (Lasix Oral Solution -) 40 mg NGT DAILY [facility] Last Admin: 05/29/19 11:35 Dose: 40 mg Immune Globulin/ Immune (Globulin) 450 mls @ 72 mls/hr IVPB DAILY [facility]; Protocol Stop: 05/31/19 16:14 Last Admin: 05/29/19 13:29 Dose: 72 mls/hr Meropenem 500 mg/ Dextrose 100 mls @ 200 mls/hr IVPB Q8H-IV [facility] Last Admin: 05/29/19 11:30 Dose: 200 mls/hr Insulin Aspart (Novolog Vial Sliding Scale -) 1 vial SQ ACHS [facility]; Protocol Last Admin: 05/29/19 14:47 Dose: 2 units Insulin Detemir (Levemir Vial) 18 units SQ AM [facility] Lisinopril (Prinivil) 10 mg NGT DAILY [facility] Last Admin: 05/29/19 11:35 Dose: 10 mg Metoprolol Tartrate (Lopressor -) 25 mg GT TID [facility] Last Admin: 05/29/19 13:58 Dose: 25 mg Nystatin (Nystatin Oral Suspension -) 500,000 units PO Q6HPO [facility] Last Admin: 05/29/19 13:59 Dose: 500,000 units Pantoprazole Sodium (Protonix -) 40 mg PO DAILY [facility] Last Admin: 05/29/19 13:51 Dose: Not Given Polyethylene Glycol (Miralax (For Daily Use) -) 17 gm GT DAILY [facility] Last Admin: 05/29/19 14:52 Dose: 17 grams Scopolamine HBr (Transderm-Scop -) 1 patch TD Q72H [facility] Senna (Senna Oral Solution -) 8.8 mg GT HS [facility] Thiamine HCl (Vitamin B1 Injection -) 200 mg IVPB DAILY [facility] Last Admin: 05/29/19 11:31 Dose: 200 mg - Objective Vital Signs: Vital Signs Temperature 98.4 F 05/29/19 14:00 Pulse Rate 118 H 05/29/19 14:00 Respiratory Rate 18 05/29/19 14:00 Blood Pressure 110/76 05/29/19 14:00 O2 Sat by Pulse Oximetry (%) 100 05/29/19 14:27 Constitutional: Yes: Calm Eyes: Yes: Conjunctiva Clear HENT: Yes: Atraumatic Cardiovascular: Yes: S1, S2 Respiratory: Yes: CTA Bilaterally Gastrointestinal: Yes: Normal Bowel Sounds, Soft Genitourinary: Yes: WNL Musculoskeletal: Yes: WNL Edema: Yes Edema: LLE: Trace, RLE: Trace Integumentary: Yes: Venous Stasis Changes Neurological: Yes: Lethargy Labs: CBC, BMP 05/29/19 05:37 05/29/19 05:37 INR, PTT INR 1.05 (0.83-1.09) 05/24/19 06:00 Problem List - Problems (1) Acute decompensated heart failure Code(s): I50.9 - HEART FAILURE, UNSPECIFIED (2) Atrial fibrillation and flutter Code(s): I48.91 - UNSPECIFIED ATRIAL FIBRILLATION; I48.92 - UNSPECIFIED ATRIAL FLUTTER (3) Hyperkalemia Code(s): E87.5 - HYPERKALEMIA (4) Pneumonia Code(s): J18.9 - PNEUMONIA, UNSPECIFIED ORGANISM Qualifiers: Pneumonia type: due to unspecified organism (5) Sarcoidosis of other sites Code(s): D86.89 - SARCOIDOSIS OF OTHER SITES Assessment/Plan Current Medications Generic Name Dose Route Start Last Admin Trade Name Freq PRN Reason Stop Dose Admin Acetaminophen 500 mg 05/29/19 10:00 05/29/19 12:22 Tylenol - PO 05/31/19 10:01 500 mg DAILY [facility] Administration Acetaminophen 650 mg 05/29/19 08:04 Tylenol Oral Solution - GT Q6H PRN Fever Or Pain Amino Acids 30 ml 05/29/19 08:00 05/29/19 11:31 Prosource No Carb Liquid Pkt GT 30 ml BID@0800,1730 [facility] Administration Apixaban 5 mg 05/28/19 22:00 05/29/19 11:29 Eliquis - PEG 5 mg BID [facility] Administration Atorvastatin Calcium 40 mg 05/28/19 22:00 05/28/19 21:26 Lipitor - PO 40 mg HS [facility] Administration Diltiazem HCl 30 mg 05/29/19 14:00 05/29/19 13:58 Cardizem - PO 30 mg TID [facility] Administration Diphenhydramine HCl 50 mg 05/29/19 10:00 05/29/19 12:23 Benadryl Injection - IVPB 05/31/19 10:01 50 mg DAILY [facility] Administration Docusate Sodium 200 mg 05/29/19 07:16 05/29/19 11:29 Colace Liquid - GT 200 mg DAILY PRN Administration CONSTIPATION Ferrous Sulfate 300 mg 05/29/19 10:00 05/29/19 11:34 Feosol NGT 300 mg BID [facility] Administration Furosemide 40 mg 05/28/19 13:15 05/29/19 11:35 Lasix Oral Solution - NGT 40 mg DAILY [facility] Administration Immune Globulin/ Immune 450 mls @ 72 mls/hr 05/29/19 10:00 05/29/19 13:29 Globulin IVPB 05/31/19 16:14 72 mls/hr DAILY [facility] Administration Protocol Meropenem 500 mg/ Dextrose 100 mls @ 200 mls/hr 05/29/19 10:00 05/29/19 11:30 IVPB 200 mls/hr Q8H-IV [facility] Administration Insulin Aspart 1 vial 05/29/19 11:00 05/29/19 14:47 Novolog Vial Sliding Scale - SQ 2 units ACHS [facility] Administration Protocol Insulin Detemir 18 units 05/30/19 07:00 Levemir Vial SQ AM [facility] Lisinopril 10 mg 05/29/19 10:00 05/29/19 11:35 Prinivil NGT 10 mg DAILY [facility] Administration Metoprolol Tartrate 25 mg 05/29/19 14:00 05/29/19 13:58 Lopressor - GT 25 mg TID [facility] Administration Nystatin 500,000 units 05/29/19 12:00 05/29/19 13:59 Nystatin Oral Suspension - PO 500,000 units Q6HPO [facility] Administration Pantoprazole Sodium 40 mg 05/29/19 12:00 05/29/19 13:51 Protonix - PO Not Given DAILY [facility] Polyethylene Glycol 17 gm 05/29/19 10:00 05/29/19 14:52 Miralax (For Daily Use) - GT 17 grams DAILY [facility] Administration Scopolamine HBr 1 patch 06/01/19 05:15 Transderm-Scop - TD Q72H [facility] Senna 8.8 mg 05/29/19 22:00 Senna Oral Solution - GT HS [facility] Thiamine HCl 200 mg 05/29/19 10:00 05/29/19 11:31 Vitamin B1 Injection - IVPB 200 mg DAILY [facility] Administration Impression 1. RYNE 2. hyperkalemia 3. resp failure requiring intubation 4. resp acidosis 5. dm 6. hx htn 7. sleep apnea 8. obesity 9. hx non compliance 10. chf 11. sarcoid 12. volume overload 13. hypernatremia Plan - cont po lasix - monitor volume status - monitor lytes - pt getting ivig - vent support
[2019-05-29] MEDS: SENNOSIDES 8.8 MG/5 ML BULK BOTTLE GT SCH (22:00)
[2019-05-29] MEDS: ATORVASTATIN CA 40 MG TABLET (FP) PO SCH (22:00)
[2019-05-30] MEDS: NYSTATIN 500,000 UNITS/5 ML SUSPENSION PO SCH ×4 (00:48→17:58)
[2019-05-30] MEDS: dilTIAZem HCL 30 MG TABLET (FP) PO SCH ×3 (05:06→21:21)
[2019-05-30] MEDS: METOPROLOL TARTRATE 25 MG TABLET (FP) GT SCH ×3 (05:06→21:22)
[2019-05-30] MEDS: INSULIN SLIDING SCALE (NOVOLOG) 1 VIAL SQ SCH ×4 (06:08→21:22)
[2019-05-30] MEDS: INSULIN (LEVEMIR) 100 UNITS/ML UNITS SQ SCH (06:08)
[2019-05-30 07:00] LABS: BASO % 0.5 % (0-2.0); HEMATOCRIT 30.8 % (35.4-49); HEMOGLOBIN 9.7 GM/dL (11.7-16.9); MCH 25.5 pg (25.7-33.7); MCHC 31.5 g/dl (32.0-35.9); MEAN CELL VOLUME 80.9 fl (80-96); MEAN PLT VOLUME 9.2 fl (7.5-11.1); MONO % 7.1 % (3.8-10.2); NEUT % 86.4 % (42.8-82.8); PLATELET COUNT 130 K/MM3 (134-434); RBC 3.81 M/mm3 (4.00-5.60); RDW 19.3 % (11.9-15.9); WHITE BLOOD COUNT 4.5 K/mm3 (4.0-10.0)
[2019-05-30 07:29] LABS: BILIRUBIN,TOTAL 0.8 mg/dL (0.2-1); CALCIUM 8.3 mg/dL (8.5-10.1); MAGNESIUM 1.5 mg/dL (1.8-2.4); PHOSPHOROUS 3.4 mg/dL (2.5-4.9); POTASSIUM 3.9 mmol/L (3.5-5.1); TOT PROT 6.9 g/dl (6.4-8.2)
[2019-05-30] MEDS ORDERED: MAGNESIUM SULF 50% (8.12 MEQ/2 ML-1 GM VIAL) IVPB ONE (08:06)
--- NOTE | 2019-05-30 09:06 | PN ---
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 (short form) - Note 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: Neurology - History of Present Illness History of Present Illness: Covering for Dr. Pleitez 53-year-old right-handed man with multiple medical problem including diabetes mellitus coronary artery disease osteoarthritis chronic low back pain history of diastolic CHF who presented previously to [facility] to the emergency room with the chief complaint of shortness of breath. Hospital course was complicated by respiratory distress that required intubation patient was intubated and admitted to the medical ICU for a while patient was under the care of multiple specialists including realty loan specialist and critical care. No report of any recent travel. More recently, this admission for shortness of breath with respiratory acidosis on ABG not feeling himself. Patient required intubation again chest x-ray was done. Neurology was called due to pupilary asymetry. Consult note reviewed from Dr. Pleitez. Hospitalist asked me to evaluate further regarding ongoing decline and assess to eval for Guillan [place]. Patient remains bedbound without participation in confrontation testing. Does have minimal reflexes speaking against likelihood for guillan barre. EMG from 04/30 reviewed and showed axonal neuropathy but could not rule out myopathy. For more definitive diagnosis, LP was completed and showed zero WBC but increased protein to 101 and increased glucose to 174. Elevated glucose may be due to underlying Hyperglycemia. The increase in protein with normal WBC is suspicious for guillian barre. Discussed with hospitalist on 05/27 and we agreed for trial of IVIG which was initiated on 05/27. patient also completed PEG on the same day. Would require five-day course of IVIG and then possibly plasmapheresis which may require transfer (currently day 4/5) and no significant improvement thus far, has wiggled toes and closing fist. Hospitalist to look into if plasmapheresis would be able to be completed here vs transfer. Spoke to hospitalist about this and indicated [facility] did not accept transfer and they will be considering alternative locations although the [facility] did not want the patient being sent to [facility]. Patient remains under critical care monitoring in ICU. Active Medications Acetaminophen (Tylenol -) 500 mg PO DAILY [facility] Stop: 05/31/19 10:01 Last Admin: 05/29/19 12:22 Dose: 500 mg Acetaminophen (Tylenol Oral Solution -) 650 mg GT Q6H PRN PRN Reason: Fever Or Pain Apixaban (Eliquis -) 5 mg PEG BID [facility] Last Admin: 05/29/19 22:00 Dose: 5 mg Atorvastatin Calcium (Lipitor -) 40 mg PO HS [facility] Last Admin: 05/29/19 22:00 Dose: 40 mg Diltiazem HCl (Cardizem -) 30 mg PO TID [facility] Last Admin: 05/30/19 05:06 Dose: 30 mg Diphenhydramine HCl (Benadryl Injection -) 50 mg IVPB DAILY [facility] Stop: 05/31/19 10:01 Last Admin: 05/29/19 12:23 Dose: 50 mg Docusate Sodium (Colace Liquid -) 200 mg GT DAILY PRN PRN Reason: CONSTIPATION Last Admin: 05/29/19 11:29 Dose: 200 mg Ferrous Sulfate (Feosol) 300 mg NGT BID [facility] Last Admin: 05/29/19 22:00 Dose: 300 mg Furosemide (Lasix Oral Solution -) 40 mg NGT DAILY [facility] Last Admin: 05/29/19 11:35 Dose: 40 mg Immune Globulin/ Immune (Globulin) 450 mls @ 72 mls/hr IVPB DAILY [facility]; Protocol Stop: 05/31/19 16:14 Last Admin: 05/29/19 13:29 Dose: 72 mls/hr Insulin Aspart (Novolog Vial Sliding Scale -) 1 vial SQ ACHS [facility]; Protocol Last Admin: 05/30/19 06:08 Dose: Not Given Insulin Detemir (Levemir Vial) 18 units SQ AM [facility] Last Admin: 05/30/19 06:08 Dose: 18 units Lisinopril (Prinivil) 10 mg NGT DAILY [facility] Last Admin: 05/29/19 11:35 Dose: 10 mg Metoprolol Tartrate (Lopressor -) 25 mg GT TID [facility] Last Admin: 05/30/19 05:06 Dose: 25 mg Nystatin (Nystatin Oral Suspension -) 500,000 units PO Q6HPO [facility] Last Admin: 05/30/19 05:47 Dose: 500,000 units Pantoprazole Sodium (Protonix -) 40 mg PO DAILY [facility] Last Admin: 05/29/19 13:51 Dose: Not Given Polyethylene Glycol (Miralax (For Daily Use) -) 17 gm GT DAILY [facility] Last Admin: 05/29/19 14:52 Dose: 17 grams Scopolamine HBr (Transderm-Scop -) 1 patch TD Q72H [facility] Senna (Senna Oral Solution -) 8.8 mg GT HS [facility] Last Admin: 05/29/19 22:00 Dose: 8.8 mg Thiamine HCl (Vitamin B1 Injection -) 200 mg IVPB DAILY [facility] Last Admin: 05/29/19 11:31 Dose: 200 mg Physical Exam-Neuro Vital Signs: Vital Signs Period Temp Pulse Resp BP Sys/[place] Pulse Ox Last 24 Hr 98.4 F-998.8 F 76-118 15-28 90-134/58-100 40-100 - Neuro Exam awake, eyes open, not following commands pupils equal and reactive to light not participating in confrontation testing Minimal movements seen trace reflexes in patella CBCD WBC 4.5 K/mm3 (4.0-10.0) 05/30/19 06:36 RBC 3.81 M/mm3 (4.00-5.60) L 05/30/19 06:36 Hgb 9.7 GM/dL (11.7-16.9) L 05/30/19 06:36 Hct 30.8 % (35.4-49) L 05/30/19 06:36 MCV 80.9 fl (80-96) 05/30/19 06:36 MCHC 31.5 g/dl (32.0-35.9) L 05/30/19 06:36 RDW 19.3 % (11.9-15.9) H 05/30/19 06:36 Plt Count 130 K/MM3 (134-434) L 05/30/19 06:36 MPV 9.2 fl (7.5-11.1) 05/30/19 06:36 CMP Sodium 138 mmol/L (136-145) 05/30/19 06:36 Potassium 3.9 mmol/L (3.5-5.1) 05/30/19 06:36 Chloride 104 mmol/L (98-107) 05/30/19 06:36 Carbon Dioxide 28 mmol/L (21-32) 05/30/19 06:36 Anion Gap 6 MMOL/L (8-16) L 05/30/19 06:36 BUN 31.0 mg/dL (7-18) H 05/30/19 06:36 Creatinine 1.0 mg/dL (0.55-1.3) 05/30/19 06:36 Random Glucose 138 mg/dL (74-106) H 05/30/19 06:36 Calcium 8.3 mg/dL (8.5-10.1) L 05/30/19 06:36 Total Bilirubin 0.8 mg/dL (0.2-1) 05/30/19 06:36 AST 27 U/L (15-37) 05/30/19 06:36 ALT 26 U/L (13-61) 05/30/19 06:36 Alkaline Phosphatase 82 U/L (45-117) 05/30/19 06:36 Total Protein 6.9 g/dl (6.4-8.2) 05/30/19 06:36 Albumin 2.0 g/dl (3.4-5.0) L 05/30/19 06:36 CARDIAC ENZYMES Creatine Kinase 179 U/L (26-308) 05/11/19 05:55 Troponin I < 0.02 ng/ml (0.00-0.05) 05/05/19 05:30 ASSESSMENT/PLAN 53-year-old right-handed man with multiple medical problem including diabetes mellitus coronary artery disease osteoarthritis chronic low back pain history of diastolic CHF who presented previously to [facility] to the emergency room with the chief complaint of shortness of breath. Hospital course was complicated by respiratory distress that required intubation patient was intubated and admitted to the medical ICU for a while patient was under the care of multiple specialists including realty loan specialist and critical care. No report of any recent travel. More recently, this admission for shortness of breath with respiratory acidosis on ABG not feeling himself. Patient required intubation again chest x-ray was done. Neurology was called due to pupilary asymetry. Consult note reviewed from Dr. Pleitez. Hospitalist asked me to evaluate further regarding ongoing decline and assess to eval for Guillan [place]. Patient remains bedbound without participation in confrontation testing. Does have minimal reflexes speaking against likelihood for guillan barre. EMG from 04/30 reviewed and showed axonal neuropathy but could not rule out myopathy. For more definitive diagnosis, LP was completed and showed zero WBC but increased protein to 101 and increased glucose to 174. Elevated glucose may be due to underlying Hyperglycemia. The increase in protein with normal WBC is suspicious for guillian barre. Discussed with hospitalist on 05/27 and we agreed for trial of IVIG which was initiated on 05/27. patient also completed PEG on the same day. Would require five-day course of IVIG and then possibly plasmapheresis which may require transfer (currently day 4) and no significant improvement thus far, has wiggled toes and closing fist. Hospitalist to look into if plasmapheresis would be able to be completed here vs transfer. Spoke to hospitalist about this and indicated [facility] did not accept transfer and they will be considering alternative locations although the [facility] did not want the patient being sent to [facility]. Patient remains under critical care monitoring in ICU. Continue to monitor neurologic status, supportive care, continue mechanical ventilation assess for any improvements in respiration. Critical care time 35 mins.
[2019-05-30] MEDS ORDERED: PT OWN MED DRAWER 7, Y5N ONE ×2 (09:12→09:13)
[2019-05-30] MEDS: PANTOPRAZOLE 40 MG TABLET PO SCH (09:20)
[2019-05-30] MEDS: APIXABAN 5 MG TABLET PEG SCH ×2 (09:21→21:21)
[2019-05-30] MEDS: ACETAMINOPHEN 500 MG TABLET (FP) PO SCH (09:22)
[2019-05-30] MEDS: LISINOPRIL 10 MG TABLET (FP) NGT SCH (09:23)
[2019-05-30] MEDS: THIAMINE HCL 200 MG/2 ML VIAL IVPB SCH (09:23)
[2019-05-30] MEDS: FERROUS SO4 300 MG/5 ML ORAL SOLN UNIT DOSE CUPS NGT SCH ×2 (09:24→21:21)
[2019-05-30] MEDS: FUROSEMIDE 40 MG/5 ML UNIT-DOSE CUP NGT SCH (09:24)
--- NOTE | 2019-05-30 09:27 | PN ---
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, Physician History of Present Illness: s/p tracheostomy resting on PS vent 40% FiO2 PEEP 5, PEG. Aflutter with improved rate response. 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 No clinical response thus far. - Current Medication List Current Medications: Active Medications Acetaminophen (Tylenol -) 500 mg PO DAILY [facility] Stop: 05/31/19 10:01 Last Admin: 05/30/19 09:22 Dose: 500 mg Acetaminophen (Tylenol Oral Solution -) 650 mg GT Q6H PRN PRN Reason: Fever Or Pain Apixaban (Eliquis -) 5 mg PEG BID [facility] Last Admin: 05/30/19 09:21 Dose: 5 mg Atorvastatin Calcium (Lipitor -) 40 mg PO HS [facility] Last Admin: 05/29/19 22:00 Dose: 40 mg Diltiazem HCl (Cardizem -) 30 mg PO TID [facility] Last Admin: 05/30/19 05:06 Dose: 30 mg Diphenhydramine HCl (Benadryl Injection -) 50 mg IVPB DAILY [facility] Stop: 05/31/19 10:01 Last Admin: 05/30/19 09:23 Dose: 50 mg Docusate Sodium (Colace Liquid -) 200 mg GT DAILY PRN PRN Reason: CONSTIPATION Last Admin: 05/29/19 11:29 Dose: 200 mg Ferrous Sulfate (Feosol) 300 mg NGT BID [facility] Last Admin: 05/30/19 09:24 Dose: 300 mg Furosemide (Lasix Oral Solution -) 40 mg NGT DAILY [facility] Last Admin: 05/30/19 09:24 Dose: 40 mg Immune Globulin/ Immune (Globulin) 450 mls @ 72 mls/hr IVPB DAILY [facility]; Protocol Stop: 05/31/19 16:14 Last Admin: 05/29/19 13:29 Dose: 72 mls/hr Insulin Aspart (Novolog Vial Sliding Scale -) 1 vial SQ ACHS [facility]; Protocol Last Admin: 05/30/19 06:08 Dose: Not Given Insulin Detemir (Levemir Vial) 18 units SQ AM [facility] Last Admin: 05/30/19 06:08 Dose: 18 units Lisinopril (Prinivil) 10 mg NGT DAILY [facility] Last Admin: 05/30/19 09:23 Dose: 10 mg Metoprolol Tartrate (Lopressor -) 25 mg GT TID [facility] Last Admin: 05/30/19 05:06 Dose: 25 mg Nystatin (Nystatin Oral Suspension -) 500,000 units PO Q6HPO [facility] Last Admin: 05/30/19 05:47 Dose: 500,000 units Pantoprazole Sodium (Protonix -) 40 mg PO DAILY [facility] Last Admin: 05/30/19 09:20 Dose: 40 mg Polyethylene Glycol (Miralax (For Daily Use) -) 17 gm GT DAILY [facility] Last Admin: 05/29/19 14:52 Dose: 17 grams Scopolamine HBr (Transderm-Scop -) 1 patch TD Q72H [facility] Senna (Senna Oral Solution -) 8.8 mg GT HS [facility] Last Admin: 05/29/19 22:00 Dose: 8.8 mg Thiamine HCl (Vitamin B1 Injection -) 200 mg IVPB DAILY [facility] Last Admin: 05/30/19 09:23 Dose: 200 mg - Objective Vital Signs: Vital Signs Temperature 99 F 05/30/19 06:00 Pulse Rate 103 H 05/30/19 08:08 Respiratory Rate 18 05/30/19 08:08 Blood Pressure 120/73 05/30/19 08:00 O2 Sat by Pulse Oximetry (%) 94 L 05/30/19 08:08 Constitutional: Yes: No Distress, Calm Neck: Yes: Supple, Other (Tracheostomy) Cardiovascular: Yes: Regular Rate and Rhythm Respiratory: Yes: Mechanically Ventilated Gastrointestinal: Yes: Normal Bowel Sounds, Soft, Abdomen, Obese (PEG in place) Edema: No Labs: CBC, BMP 05/30/19 06:36 05/30/19 06:36 INR, PTT INR 1.05 (0.83-1.09) 05/24/19 06:00 - ....Imaging EKG: Report Reviewed (Tele: Rate-controlled aflutter) Problem List - Problems (1) Pneumonia Code(s): J18.9 - PNEUMONIA, UNSPECIFIED ORGANISM Qualifiers: Pneumonia type: due to unspecified organism (2) Acute hypercapnic respiratory failure due to obstructive sleep apnea Code(s): J96.02 - ACUTE RESPIRATORY FAILURE WITH HYPERCAPNIA; G47.33 - OBSTRUCTIVE SLEEP APNEA (ADULT) (PEDIATRIC) (3) Acute decompensated heart failure Code(s): I50.9 - HEART FAILURE, UNSPECIFIED (4) Acute renal failure Code(s): N17.9 - ACUTE KIDNEY FAILURE, UNSPECIFIED Qualifiers: Acute renal failure type: unspecified Qualified Code(s): N17.9 - Acute kidney failure, unspecified (5) Sarcoidosis of other sites Code(s): D86.89 - SARCOIDOSIS OF OTHER SITES (6) Type 2 diabetes mellitus Code(s): E11.9 - TYPE 2 DIABETES MELLITUS WITHOUT COMPLICATIONS Qualifiers: Diabetes mellitus snf insulin use: without snf use Diabetes mellitus complication detail: with chronic kidney disease Chronic kidney disease stage: stage 2 (mild) (7) Atrial fibrillation and flutter Code(s): I48.91 - UNSPECIFIED ATRIAL FIBRILLATION; I48.92 - UNSPECIFIED ATRIAL FLUTTER (8) Guillain Vigil syndrome Code(s): G61.0 - GUILLAIN-BARRE SYNDROME Assessment/Plan 05/01/2019 Normal LV and RV size and fxn, tr TR 03/14/2019 Normal LV size and fxn, no thrombus ADEEL, mild-mod dilated and HK RV, tr MR, mild-mod TR, tr RI, trace pericardial effusion 1. Acute hypoxic and hypercapneic respiratory failure currently on mechanical ventilation via tracheostomy 2. Post pneumonia, septic shock, Gram Positive Bacteremia and ARDS 3. Sarcoidosis confirmed by skin biopsy, r/o cardiac involvement 4. OSAS nonadherent to CPAP 5. Paroxysmal Aflutter/Afib with RVR 6. Acute on chronic diastolic heart failure 7. Acute on CKD with hyperkalemia resolved 8. Type 2 DM 9. Anemia 10. 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 Trial of IVIG possible plasmapharesis, bronchodilator and enteral feeds 2. SBT and PMV trials as tolerated, taper fiO2 to keep SpO2 >90% 3. Rate-control with uptitrate oral Lopressor 25 tid and Cardizem 30 tid as hemodynamics tolerate, IV Cardizem and Lopressor as needed and continue Eliquis 5 mg BID 4. Lasix 40 qd as needed with monitor renal function and electrolytes 5. Continue lisinopril 10 mg QD as renal function and hyperkalemia stabilized, Lipitor 40 qd 6. Follow up with Dr. Genaro Davila (cardiology at [facility]). Consider cardiac PET or MRI to exclude cardiac involvement in sarcoidosis as outpatient
--- NOTE | 2019-05-30 09:34 | PN ---
Physical Exam: SUBJECTIVE: Patient seen and examined. No acute events overnight. PMV trials yesterday, pt tolerating well. OBJECTIVE: Vital Signs Period Temp Pulse Resp BP Sys/[place] Pulse Ox Last 24 Hr 98.4 F-998.8 F 76-118 15-28 90-134/58-100 40-100 GENERAL: The patient is awake and alert. Able to follow most commands and nod to questions. HEAD: Normal with no signs of trauma. ENT: Ears normal, nares patent, oropharynx clear without exudates, moist mucous membranes. Trach placed, no erythema, discharge or signs of infection. LUNGS: Mechanical ventilation. Scattered ronchi. No wheezes or crackles. HEART: Regular rate and rhythm, S1, S2 without murmur, rub or gallop. ABDOMEN: Soft, nontender, nondistended, normoactive bowel sounds, no guarding, no rebound, no hepatosplenomegaly, no masses. EXTREMITIES: 2+ pulses,warm, well-perfused, no edema. NEUROLOGICAL: Unable to assess. SKIN: Warm, dry, normal turgor, no rashes or lesions noted Laboratory Results - last 24 hr CBC, BMP 05/30/19 06:36 05/30/19 06:36 Active Medications Acetaminophen (Tylenol -) 500 mg PO DAILY [facility] Stop: 05/31/19 10:01 Last Admin: 05/30/19 09:22 Dose: 500 mg Acetaminophen (Tylenol Oral Solution -) 650 mg GT Q6H PRN PRN Reason: Fever Or Pain Apixaban (Eliquis -) 5 mg PEG BID [facility] Last Admin: 05/30/19 09:21 Dose: 5 mg Atorvastatin Calcium (Lipitor -) 40 mg PO HS [facility] Last Admin: 05/29/19 22:00 Dose: 40 mg Diltiazem HCl (Cardizem -) 30 mg PO TID [facility] Last Admin: 05/30/19 05:06 Dose: 30 mg Diphenhydramine HCl (Benadryl Injection -) 50 mg IVPB DAILY [facility] Stop: 05/31/19 10:01 Last Admin: 05/30/19 09:23 Dose: 50 mg Docusate Sodium (Colace Liquid -) 200 mg GT DAILY PRN PRN Reason: CONSTIPATION Last Admin: 05/29/19 11:29 Dose: 200 mg Ferrous Sulfate (Feosol) 300 mg NGT BID [facility] Last Admin: 05/30/19 09:24 Dose: 300 mg Furosemide (Lasix Oral Solution -) 40 mg NGT DAILY [facility] Last Admin: 05/30/19 09:24 Dose: 40 mg Immune Globulin/ Immune (Globulin) 450 mls @ 72 mls/hr IVPB DAILY [facility]; Protocol Stop: 05/31/19 16:14 Last Admin: 05/29/19 13:29 Dose: 72 mls/hr Insulin Aspart (Novolog Vial Sliding Scale -) 1 vial SQ ACHS [facility]; Protocol Last Admin: 05/30/19 06:08 Dose: Not Given Insulin Detemir (Levemir Vial) 18 units SQ AM [facility] Last Admin: 05/30/19 06:08 Dose: 18 units Lisinopril (Prinivil) 10 mg NGT DAILY [facility] Last Admin: 05/30/19 09:23 Dose: 10 mg Metoprolol Tartrate (Lopressor -) 25 mg GT TID [facility] Last Admin: 05/30/19 05:06 Dose: 25 mg Nystatin (Nystatin Oral Suspension -) 500,000 units PO Q6HPO [facility] Last Admin: 05/30/19 05:47 Dose: 500,000 units Pantoprazole Sodium (Protonix -) 40 mg PO DAILY [facility] Last Admin: 05/30/19 09:20 Dose: 40 mg Polyethylene Glycol (Miralax (For Daily Use) -) 17 gm GT DAILY [facility] Last Admin: 05/29/19 14:52 Dose: 17 grams Scopolamine HBr (Transderm-Scop -) 1 patch TD Q72H [facility] Senna (Senna Oral Solution -) 8.8 mg GT HS [facility] Last Admin: 05/29/19 22:00 Dose: 8.8 mg Thiamine HCl (Vitamin B1 Injection -) 200 mg IVPB DAILY [facility] Last Admin: 05/30/19 09:23 Dose: 200 mg ASSESSMENT/PLAN: Patient is a 53 year old male with PMH of TIIDM, HFpEF (last EF 45-50%), EMMY ( non-adherent to CPAP) and atrial flutter, with acute hypoxic hypercapneic respiratory failure, found to have ARDS. Patient was extubated, and required reintubation due to mental status. Neuro: -Pt is awake and alert when sedation is held. Sedated on Precedex and Propofol -CT head (05/13/19): no acute hemorrhage or infarcts -Daily sedation vacation to assess mental status -Bedside EMG shows no evidence of myopathy, but cannot rule out myopathic process. Presumptive diagnosis of GBS -Pt receiving IVIG (day 4), requires tele monitoring and vent patients cannot go to 4W/4S Cardiovascular: -Central line changed 05/20/19 -PMH of aflutter, HFpEF -Hx of paroxysmal Aflutter/Afib with RVR -Pt stable off pressors -Cont oral cardizem 30mg TID, oral lopressor 25mg TID, and lisinopril 10mg daily -D/c heparin drip and now on Eliquis 5 mg BID -Cardiology following (Dr. Encinas, Dr. King), appreciate recommendations Pulmonary: -Acute hypoxic and hypercapneic respiratory failure, presenting with ARDS - resolved -Started on CPAP with SBT as tolerated -Pt s/p tracheostomy by Dr. Lawson on 05/22/19 -PMV trials daily, pt tolerating well -Atrovent nebulizer PRN Renal: -Andrews catheter changed 05/19/19 -Nephro following (Dr. Kelley) -Cont lasix 40mg daily -Monitor urine output -D/c fluids -Creatinine improved @ 0.9, cont to monitor -Free water replacement via NG tube- 250 cc Water Q6H -Can resume lisinopril 10mg QD once renal function improves GI: -Protonix 40 mg IV daily -Promote tube feeds -Cont miralax, senna, colace ID: -Sputum cx: ESBL -Completed meropenem x7 days -ID following (Dr. Lang) Endo: -BGM better controlled -Cont 18units qam and ISS with BGM TIDAC F: No standing IVF E: Replete lytes prn N: Nepro Tube Feeds DVT: Pt on eliquis GI: Protonix Dispo: -Cont to monitor in ICU Visit type - Emergency Visit Emergency Visit: No - New Patient This patient is new to me today: No - Critical Care Critical Care patient: Yes Total Critical Care Time (in minutes): 45 Critical Care Statement: The care of this patient involved high complexity decision making to prevent further life threatening deterioration of the patient 's condition and/or to evaluate & treat vital organ system(s) failure or risk of failure. ATTENDING PHYSICIAN STATEMENT I saw and evaluated the patient. I reviewed the resident's note and discussed the case with the resident. I agree with the resident's findings and plan as documented. SUBJECTIVE: OBJECTIVE: ASSESSMENT AND PLAN:
[2019-05-30] MEDS: POLYETHYLENE GLYCOL 3350 119 GM BTL GT SCH (10:37)
[2019-05-30] MEDS: IGA IVPB SCH (10:53)
[2019-05-30] MEDS: IMMUN GLOB IVPB SCH (10:53)
[2019-05-30] MEDS: PRO IVPB SCH (10:53)
[2019-05-30] MEDS: PRO IMMUN GLOB IVPB SCH (10:53)
--- NOTE | 2019-05-30 11:06 | PN ---
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, [employer] - Note 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: Selected Entries 05/29/19 05/29/19 05/29/19 00:00 02:00 04:00 Temperature 99.0 F Blood Pressure 163/95 145/53 L 142/82 05/29/19 05/29/19 05/29/19 06:00 08:00 10:00 Temperature 98.9 F 98.6 F Blood Pressure 133/79 136/86 134/83 05/29/19 05/29/19 05/29/19 12:00 13:30 14:00 Temperature 98.4 F 98.4 F Blood Pressure 134/59 L 124/73 110/76 05/29/19 05/29/19 05/29/19 14:30 15:00 15:30 Temperature 998.8 F H Blood Pressure 102/72 113/62 114/71 05/29/19 05/29/19 05/29/19 17:00 18:30 20:00 Temperature 99 F Blood Pressure 133/75 128/76 130/100 05/29/19 05/30/19 05/30/19 22:00 00:00 02:00 Temperature 98.9 F 98.8 F Blood Pressure 90/58 L 104/70 114/68 05/30/19 05/30/19 05/30/19 04:00 06:00 08:00 Temperature 99 F Blood Pressure 97/58 L 102/61 120/73 05/30/19 10:00 Temperature 98.7 F Blood Pressure 94/59 L Laboratory Tests 05/30/19 06:36 WBC 4.5 Receiving IVIG tx. Reviewed with nursing and RT PMV evaluation and good potential to use for communication, and to expedite weaning from ventilator. Plan is to use PMV daily, ideally for short periods (15 min) a few times a day. Sleepy after Benedryl/IVIG. Attempting to open eyes but unable. Nursing aware.
--- NOTE | 2019-05-30 11:23 | PN ---
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, Physician History of Present Illness: POORLY RESPONSIVE ON VENTILATOR AFEBRILE WBC WNL - Current Medication List Current Medications: Active Medications Acetaminophen (Tylenol -) 500 mg PO DAILY [facility] Stop: 05/31/19 10:01 Last Admin: 05/30/19 09:22 Dose: 500 mg Acetaminophen (Tylenol Oral Solution -) 650 mg GT Q6H PRN PRN Reason: Fever Or Pain Apixaban (Eliquis -) 5 mg PEG BID [facility] Last Admin: 05/30/19 09:21 Dose: 5 mg Atorvastatin Calcium (Lipitor -) 40 mg PO HS [facility] Last Admin: 05/29/19 22:00 Dose: 40 mg Diltiazem HCl (Cardizem -) 30 mg PO TID [facility] Last Admin: 05/30/19 05:06 Dose: 30 mg Diphenhydramine HCl (Benadryl Injection -) 50 mg IVPB DAILY [facility] Stop: 05/31/19 10:01 Last Admin: 05/30/19 09:23 Dose: 50 mg Docusate Sodium (Colace Liquid -) 200 mg GT DAILY PRN PRN Reason: CONSTIPATION Last Admin: 05/29/19 11:29 Dose: 200 mg Ferrous Sulfate (Feosol) 300 mg NGT BID [facility] Last Admin: 05/30/19 09:24 Dose: 300 mg Furosemide (Lasix Oral Solution -) 40 mg NGT DAILY [facility] Last Admin: 05/30/19 09:24 Dose: 40 mg Immune Globulin/ Immune (Globulin) 450 mls @ 72 mls/hr IVPB DAILY [facility]; Protocol Stop: 05/31/19 16:14 Last Admin: 05/30/19 10:53 Dose: 72 mls/hr Insulin Aspart (Novolog Vial Sliding Scale -) 1 vial SQ ACHS [facility]; Protocol Last Admin: 05/30/19 06:08 Dose: Not Given Insulin Detemir (Levemir Vial) 18 units SQ AM [facility] Last Admin: 05/30/19 06:08 Dose: 18 units Lisinopril (Prinivil) 10 mg NGT DAILY [facility] Last Admin: 05/30/19 09:23 Dose: 10 mg Metoprolol Tartrate (Lopressor -) 25 mg GT TID [facility] Last Admin: 05/30/19 05:06 Dose: 25 mg Nystatin (Nystatin Oral Suspension -) 500,000 units PO Q6HPO [facility] Last Admin: 05/30/19 05:47 Dose: 500,000 units Pantoprazole Sodium (Protonix -) 40 mg PO DAILY [facility] Last Admin: 05/30/19 09:20 Dose: 40 mg Polyethylene Glycol (Miralax (For Daily Use) -) 17 gm GT DAILY [facility] Last Admin: 05/30/19 10:37 Dose: 17 grams Scopolamine HBr (Transderm-Scop -) 1 patch TD Q72H [facility] Senna (Senna Oral Solution -) 8.8 mg GT HS [facility] Last Admin: 05/29/19 22:00 Dose: 8.8 mg Thiamine HCl (Vitamin B1 Injection -) 200 mg IVPB DAILY [facility] Last Admin: 05/30/19 09:23 Dose: 200 mg - Objective Vital Signs: Vital Signs Temperature 98.7 F 05/30/19 10:00 Pulse Rate 81 05/30/19 10:00 Respiratory Rate 18 05/30/19 10:00 Blood Pressure 94/59 L 05/30/19 10:00 O2 Sat by Pulse Oximetry (%) 100 05/30/19 10:00 Constitutional: Yes: No Distress, Obese Cardiovascular: Yes: Regular Rate and Rhythm, S1, S2 Respiratory: Yes: Diminished, Mechanically Ventilated Gastrointestinal: Yes: Normal Bowel Sounds, Soft, Abdomen, Obese Edema: Yes Labs: CBC, BMP 05/30/19 06:36 05/30/19 06:36 INR, PTT INR 1.05 (0.83-1.09) 05/24/19 06:00 Assessment/Plan RESP FAILURE S/P TRACHEOSTOMY GBS CHF/ PNEUMONIA S/P COURSE OF MEROPENEM RENAL FAILURE IMPROVED CONTINUE VENTILATORY/ HEMODYNAMIC SUPPORT OBSERVE OFF ANTIBIOTICS
--- NOTE | 2019-05-30 11:39 | PN ---
Teaching Attending Note Name of Resident: Zoë Schmidt ATTENDING PHYSICIAN STATEMENT I saw and evaluated the patient. I reviewed the resident's note and discussed the case with the resident. I agree with the resident's findings and plan as documented. SUBJECTIVE: Patient seen and examined in the ICU. Tolerating IVIG therapy. Has been tolerating SIMV. OBJECTIVE: Intake & Output 05/27/19 05/28/19 05/29/19 05/30/19 23:59 23:59 23:59 23:59 Intake Total 100 962 110 720 Output Total 700 1000 1750 500 Balance - 220 Weight 266 lb 5.094 oz Last Vital Signs Temp Pulse Resp BP Pulse Ox 98.7 F 81 18 94/59 L 100 05/30/19 10:00 05/30/19 10:00 05/30/19 10:00 05/30/19 10:00 05/30/19 10:00 Active Medications Acetaminophen (Tylenol -) 500 mg PO DAILY [facility] Stop: 05/31/19 10:01 Last Admin: 05/30/19 09:22 Dose: 500 mg Acetaminophen (Tylenol Oral Solution -) 650 mg GT Q6H PRN PRN Reason: Fever Or Pain Apixaban (Eliquis -) 5 mg PEG BID [facility] Last Admin: 05/30/19 09:21 Dose: 5 mg Atorvastatin Calcium (Lipitor -) 40 mg PO HS [facility] Last Admin: 05/29/19 22:00 Dose: 40 mg Diltiazem HCl (Cardizem -) 30 mg PO TID [facility] Last Admin: 05/30/19 05:06 Dose: 30 mg Diphenhydramine HCl (Benadryl Injection -) 50 mg IVPB DAILY [facility] Stop: 05/31/19 10:01 Last Admin: 05/30/19 09:23 Dose: 50 mg Docusate Sodium (Colace Liquid -) 200 mg GT DAILY PRN PRN Reason: CONSTIPATION Last Admin: 05/29/19 11:29 Dose: 200 mg Ferrous Sulfate (Feosol) 300 mg NGT BID [facility] Last Admin: 05/30/19 09:24 Dose: 300 mg Furosemide (Lasix Oral Solution -) 40 mg NGT DAILY [facility] Last Admin: 05/30/19 09:24 Dose: 40 mg Immune Globulin/ Immune (Globulin) 450 mls @ 72 mls/hr IVPB DAILY [facility]; Protocol Stop: 05/31/19 16:14 Last Admin: 05/30/19 10:53 Dose: 72 mls/hr Insulin Aspart (Novolog Vial Sliding Scale -) 1 vial SQ ACHS [facility]; Protocol Last Admin: 05/30/19 11:30 Dose: Not Given Insulin Detemir (Levemir Vial) 18 units SQ AM [facility] Last Admin: 05/30/19 06:08 Dose: 18 units Lisinopril (Prinivil) 10 mg NGT DAILY [facility] Last Admin: 05/30/19 09:23 Dose: 10 mg Metoprolol Tartrate (Lopressor -) 25 mg GT TID [facility] Last Admin: 05/30/19 05:06 Dose: 25 mg Nystatin (Nystatin Oral Suspension -) 500,000 units PO Q6HPO [facility] Last Admin: 05/30/19 05:47 Dose: 500,000 units Pantoprazole Sodium (Protonix -) 40 mg PO DAILY [facility] Last Admin: 05/30/19 09:20 Dose: 40 mg Polyethylene Glycol (Miralax (For Daily Use) -) 17 gm GT DAILY [facility] Last Admin: 05/30/19 10:37 Dose: 17 grams Scopolamine HBr (Transderm-Scop -) 1 patch TD Q72H [facility] Senna (Senna Oral Solution -) 8.8 mg GT HS [facility] Last Admin: 05/29/19 22:00 Dose: 8.8 mg Thiamine HCl (Vitamin B1 Injection -) 200 mg IVPB DAILY [facility] Last Admin: 05/30/19 09:23 Dose: 200 mg Gen: vented, awake Heart: irregular Lung: decreased breath sounds at the bases Abd: softly distended, nontender, +G tube Ext: trace edema Laboratory Results - last 24 hr 05/27/19 05/29/19 05/29/19 10:35 14:37 17:13 WBC RBC Hgb Hct MCV MCH MCHC RDW Plt Count MPV Absolute Neuts (auto) Neutrophils % Lymphocytes % Monocytes % Eosinophils % Basophils % Nucleated RBC % Sodium Potassium Chloride Carbon Dioxide Anion Gap BUN Creatinine Est GFR (CKD-EPI)AfAm Est GFR (CKD-EPI)NonAf POC Glucometer 155 144 Random Glucose Calcium Phosphorus Magnesium Total Bilirubin AST ALT Alkaline Phosphatase Total Protein Albumin TB Test (QFT) Nil 0.02 TB Test (QFT) Mitogen 0.37 TB Test (QFT) Antigen 0.02 TB Test (QFT) Indeterminate TB Positive Criteria 05/29/19 05/30/19 05/30/19 23:01 05:50 06:36 WBC 4.5 RBC 3.81 L Hgb 9.7 L Hct 30.8 L MCV 80.9 MCH 25.5 L MCHC 31.5 L RDW 19.3 H Plt Count 130 L MPV 9.2 Absolute Neuts (auto) 3.9 Neutrophils % 86.4 H Lymphocytes % 5.0 L Monocytes % 7.1 Eosinophils % 1.0 Basophils % 0.5 Nucleated RBC % 0 Sodium Potassium Chloride Carbon Dioxide Anion Gap BUN Creatinine Est GFR (CKD-EPI)AfAm Est GFR (CKD-EPI)NonAf POC Glucometer 104 137 Random Glucose Calcium Phosphorus Magnesium Total Bilirubin AST ALT Alkaline Phosphatase Total Protein Albumin TB Test (QFT) Nil TB Test (QFT) Mitogen TB Test (QFT) Antigen TB Test (QFT) TB Positive Criteria 05/30/19 05/30/19 06:36 11:27 WBC RBC Hgb Hct MCV MCH MCHC RDW Plt Count MPV Absolute Neuts (auto) Neutrophils % Lymphocytes % Monocytes % Eosinophils % Basophils % Nucleated RBC % Sodium 138 Potassium 3.9 Chloride 104 Carbon Dioxide 28 Anion Gap 6 L BUN 31.0 H Creatinine 1.0 Est GFR (CKD-EPI)AfAm 100.55 Est GFR (CKD-EPI)NonAf 86.76 POC Glucometer 131 Random Glucose 138 H Calcium 8.3 L Phosphorus 3.4 Magnesium 1.5 L Total Bilirubin 0.8 AST 27 ALT 26 Alkaline Phosphatase 82 Total Protein 6.9 Albumin 2.0 L TB Test (QFT) Nil TB Test (QFT) Mitogen TB Test (QFT) Antigen TB Test (QFT) TB Positive Criteria ASSESSMENT AND PLAN: Acute Hypoxic and Hypercapneic Respiratory Failure s/p tracheostomy Pneumonia Gram Positive Bacteremia Septic Shock resolved Lactic Acidosis resolved ARDS resolved Paroxysmal Atrial Fluter with RVR Acute on Chronic Diastolic Heart Failure Acute on Chronic Renal Failure r/o Guillian [place] Syndrome DM Anemia Sarcoidosis - IVIG per Neuro - continue antibiotics - rate control - continue anticoagulation - lasix - monitor urine output, creatinine - spontaneous breathing trials as tolerated - PMV trial - enteral feeds - DVT/GI prophylaxis - Vent floor Dr Maya
--- NOTE | 2019-05-30 14:06 | PN ---
Physical Exam: SUBJECTIVE: Patient seen and examined at bedside. No acute events hes improving. SIMV trach vent 40% FiO2 PEEP 5, PEG. Aflutter with improved rate response. OBJECTIVE: Vital Signs Period Temp Pulse Resp BP Sys/[place] Pulse Ox Last 24 Hr 98.7 F-998.8 F 76-116 15-28 90-133/58-100 40-100 GENERAL: The patient is awake, alert responsive to commands, nonverbal still EYES: PERRL, extraocular movements intact, sclera anicteric, conjunctiva clear. No ptosis. NECK: Trached LUNGS: Breath sounds reduced given morbid body habitus HEART: Regular rate and rhythm, S1, S2 without murmur, rub or gallop. ABDOMEN: Soft, nontender, peg tube no discharge or bleeding. EXTREMITIES: 2+ pulses, warm, well-perfused, no edema. NEUROLOGICAL: able to move all extremities better today able to lift arms and legs, wiggle toes and move fingers. SKIN: dry skin on forehead and scalp Laboratory Results - last 24 hr 05/27/19 05/29/19 05/29/19 10:35 14:37 17:13 WBC RBC Hgb Hct MCV MCH MCHC RDW Plt Count MPV Absolute Neuts (auto) Neutrophils % Lymphocytes % Monocytes % Eosinophils % Basophils % Nucleated RBC % Sodium Potassium Chloride Carbon Dioxide Anion Gap BUN Creatinine Est GFR (CKD-EPI)AfAm Est GFR (CKD-EPI)NonAf POC Glucometer 155 144 Random Glucose Calcium Phosphorus Magnesium Total Bilirubin AST ALT Alkaline Phosphatase Total Protein Albumin TB Test (QFT) Nil 0.02 TB Test (QFT) Mitogen 0.37 TB Test (QFT) Antigen 0.02 TB Test (QFT) Indeterminate TB Positive Criteria 05/29/19 05/30/19 05/30/19 23:01 05:50 06:36 WBC 4.5 RBC 3.81 L Hgb 9.7 L Hct 30.8 L MCV 80.9 MCH 25.5 L MCHC 31.5 L RDW 19.3 H Plt Count 130 L MPV 9.2 Absolute Neuts (auto) 3.9 Neutrophils % 86.4 H Lymphocytes % 5.0 L Monocytes % 7.1 Eosinophils % 1.0 Basophils % 0.5 Nucleated RBC % 0 Sodium Potassium Chloride Carbon Dioxide Anion Gap BUN Creatinine Est GFR (CKD-EPI)AfAm Est GFR (CKD-EPI)NonAf POC Glucometer 104 137 Random Glucose Calcium Phosphorus Magnesium Total Bilirubin AST ALT Alkaline Phosphatase Total Protein Albumin TB Test (QFT) Nil TB Test (QFT) Mitogen TB Test (QFT) Antigen TB Test (QFT) TB Positive Criteria 05/30/19 05/30/19 06:36 11:27 WBC RBC Hgb Hct MCV MCH MCHC RDW Plt Count MPV Absolute Neuts (auto) Neutrophils % Lymphocytes % Monocytes % Eosinophils % Basophils % Nucleated RBC % Sodium 138 Potassium 3.9 Chloride 104 Carbon Dioxide 28 Anion Gap 6 L BUN 31.0 H Creatinine 1.0 Est GFR (CKD-EPI)AfAm 100.55 Est GFR (CKD-EPI)NonAf 86.76 POC Glucometer 131 Random Glucose 138 H Calcium 8.3 L Phosphorus 3.4 Magnesium 1.5 L Total Bilirubin 0.8 AST 27 ALT 26 Alkaline Phosphatase 82 Total Protein 6.9 Albumin 2.0 L TB Test (QFT) Nil TB Test (QFT) Mitogen TB Test (QFT) Antigen TB Test (QFT) TB Positive Criteria Active Medications Generic Name Dose Route Start Last Admin Trade Name Freq PRN Reason Stop Dose Admin Acetaminophen 500 mg 05/29/19 10:00 05/30/19 09:22 Tylenol - PO 05/31/19 10:01 500 mg DAILY ELISSA Administration Acetaminophen 650 mg 05/29/19 08:04 Tylenol Oral Solution - GT Q6H PRN Fever Or Pain Amino Acids 30 ml 05/30/19 17:30 Prosource No Carb Liquid Pkt PO BID@0800,1730 ELISSA Apixaban 5 mg 05/28/19 22:00 05/30/19 09:21 Eliquis - PEG 5 mg BID ELISSA Administration Atorvastatin Calcium 40 mg 05/28/19 22:00 05/29/19 22:00 Lipitor - PO 40 mg HS ELISSA Administration Diltiazem HCl 30 mg 05/29/19 14:00 05/30/19 05:06 Cardizem - PO 30 mg TID ELISSA Administration Diphenhydramine HCl 50 mg 05/29/19 10:00 05/30/19 09:23 Benadryl Injection - IVPB 05/31/19 10:01 50 mg DAILY ELISSA Administration Docusate Sodium 200 mg 05/29/19 07:16 05/29/19 11:29 Colace Liquid - GT 200 mg DAILY PRN Administration CONSTIPATION Ferrous Sulfate 300 mg 05/29/19 10:00 05/30/19 09:24 Feosol NGT 300 mg BID ELISSA Administration Furosemide 40 mg 05/28/19 13:15 05/30/19 09:24 Lasix Oral Solution - NGT 40 mg DAILY ELISSA Administration Immune Globulin/ Immune 450 mls @ 72 mls/hr 05/29/19 10:00 05/30/19 10:53 Globulin IVPB 05/31/19 16:14 72 mls/hr DAILY ELISSA Administration Protocol Insulin Aspart 1 vial 05/29/19 11:00 05/30/19 11:30 Novolog Vial Sliding Scale - SQ Not Given ACHS ELISSA Protocol Insulin Detemir 18 units 05/30/19 07:00 05/30/19 06:08 Levemir Vial SQ 18 units AM ELISSA Administration Lisinopril 10 mg 05/29/19 10:00 05/30/19 09:23 Prinivil NGT 10 mg DAILY ELISSA Administration Metoprolol Tartrate 25 mg 05/29/19 14:00 05/30/19 05:06 Lopressor - GT 25 mg TID ELISSA Administration Nystatin 500,000 units 05/29/19 12:00 05/30/19 13:20 Nystatin Oral Suspension - PO 500,000 units Q6HPO ELISSA Administration Pantoprazole Sodium 40 mg 05/29/19 12:00 05/30/19 09:20 Protonix - PO 40 mg DAILY ELISSA Administration Polyethylene Glycol 17 gm 05/29/19 10:00 05/30/19 10:37 Miralax (For Daily Use) - GT 17 grams DAILY ELISSA Administration Scopolamine HBr 1 patch 06/01/19 05:15 Transderm-Scop - TD Q72H ELISSA Senna 8.8 mg 05/29/19 22:00 05/29/19 22:00 Senna Oral Solution - GT 8.8 mg HS ELISSA Administration Thiamine HCl 200 mg 05/29/19 10:00 05/30/19 09:23 Vitamin B1 Injection - IVPB 200 mg DAILY ELISSA Administration ASSESSMENT/PLAN: 53 y/o/m with PMHx of DM2, HFpEF(last EF: 45-50%), 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 #Acute Hypoxic and Hypercapneic Respiratory Failure; 2/2 Acute diastolic CHF vs. PNA -Intubated upon admission, extubated 05/09; then re-intubated 05/13/19; s/p trach . - started tube feeds and continuing IVIg per neuro recs (Dr. Fuentes). If pt fails IVIG rx will need transfer for plasmapheresis. -afebrile overnight. Pt will initiate AC when tube feeds today - monitoring in ICU during IVIG therapy. - Sputum cx: ESBL positive discontinued alexis, will monitor off abx per ID - Nystatin oral suspension -Cont vent support and wean FiO2 as tolerated. - pt status on exam is improving on IVIG. #Cardiogenic Shock; 2/2 Acute Diastolic CHF vs. Septic Shock. Unclear etiology. -Resolved -ECHO- EF of 55-60%, no significant abnormalities noted, no vegetations. -Per cardio, recommend cardiac MRI as outpatient to assess sarcoidosis involvement. #Altered mental status and weakness; 2/2 ? Critical care induced myopathy -Neuro Consulted (Dr. Pleitez), Dr. 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 Pt subsequently started on IVIg today. -Bedside EMG shows no evidence of myopathy, but cannot rule out myopathic process. -EEG(05/16/19): abnl EEG, nonspecific finding of diffuse encephalopathy - c/w IVIG 3rd dose improving clnically. #Atrial Flutter w/ RVR -Cont with Cardizem 30 TID GT and Lopressor 25 TID GT (Dilt drip, Digoxin previously discontinued) -Heparin drip on hold initially due to bleeding around trach site, G-tube placed today. #RYNE on CKD w/ hyperkalemia; Improved Cr, K 3.8 -Nephro consulted -Cont Lisinopril 10mg QD given his improved renal function #DM2 -BGM/ISS ACHS -Inc Levemir to 18 U HS given glucose has been in 200's-300's after G tube placement and initiation of feeds. #FEN -free water fluid via NG tube -monitor and replete lytes as needed -Nephro feeds #Prophylaxis -Heparin drip held pending PEG placement -Protonix 40 daily Dispo: Pt will be monitored with IVIG therapy and then will assess need for plasmapheresis vs transfer. Visit type - Emergency Visit Emergency Visit: Yes ED Registration Date: 04/30/19 Care time: The patient presented to the Emergency Department on the above date and was hospitalized for further evaluation of their emergent condition. - New Patient This patient is new to me today: No - Critical Care Critical Care patient: Yes Total Critical Care Time (in minutes): 40 Critical Care Statement: The care of this patient involved high complexity decision making to prevent further life threatening deterioration of the patient 's condition and/or to evaluate & treat vital organ system(s) failure or risk of failure. - Discharge Referral Referred to [facility] No ATTENDING PHYSICIAN STATEMENT I saw and evaluated the patient. I reviewed the resident's note and discussed the case with the resident. I agree with the resident's findings and plan as documented. SUBJECTIVE: OBJECTIVE: ASSESSMENT AND PLAN:
--- NOTE | 2019-05-30 14:40 | PN ---
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, Physician History of Present Illness: Pt seen and examined at bedside. He is awake but not interactive. He remains in the ICU. - Current Medication List Current Medications: Active Medications Acetaminophen (Tylenol -) 500 mg PO DAILY [facility] Stop: 05/31/19 10:01 Last Admin: 05/30/19 09:22 Dose: 500 mg Acetaminophen (Tylenol Oral Solution -) 650 mg GT Q6H PRN PRN Reason: Fever Or Pain Amino Acids (Prosource No Carb Liquid Pkt) 30 ml PO BID@0800,1730 [facility] Apixaban (Eliquis -) 5 mg PEG BID [facility] Last Admin: 05/30/19 09:21 Dose: 5 mg Atorvastatin Calcium (Lipitor -) 40 mg PO HS [facility] Last Admin: 05/29/19 22:00 Dose: 40 mg Diltiazem HCl (Cardizem -) 30 mg PO TID [facility] Last Admin: 05/30/19 05:06 Dose: 30 mg Diphenhydramine HCl (Benadryl Injection -) 50 mg IVPB DAILY [facility] Stop: 05/31/19 10:01 Last Admin: 05/30/19 09:23 Dose: 50 mg Docusate Sodium (Colace Liquid -) 200 mg GT DAILY PRN PRN Reason: CONSTIPATION Last Admin: 05/29/19 11:29 Dose: 200 mg Ferrous Sulfate (Feosol) 300 mg NGT BID [facility] Last Admin: 05/30/19 09:24 Dose: 300 mg Furosemide (Lasix Oral Solution -) 40 mg NGT DAILY [facility] Last Admin: 05/30/19 09:24 Dose: 40 mg Immune Globulin/ Immune (Globulin) 450 mls @ 72 mls/hr IVPB DAILY [facility]; Protocol Stop: 05/31/19 16:14 Last Admin: 05/30/19 10:53 Dose: 72 mls/hr Insulin Aspart (Novolog Vial Sliding Scale -) 1 vial SQ ACHS [facility]; Protocol Last Admin: 05/30/19 11:30 Dose: Not Given Insulin Detemir (Levemir Vial) 18 units SQ AM [facility] Last Admin: 05/30/19 06:08 Dose: 18 units Lisinopril (Prinivil) 10 mg NGT DAILY [facility] Last Admin: 05/30/19 09:23 Dose: 10 mg Metoprolol Tartrate (Lopressor -) 25 mg GT TID [facility] Last Admin: 05/30/19 05:06 Dose: 25 mg Nystatin (Nystatin Oral Suspension -) 500,000 units PO Q6HPO [facility] Last Admin: 05/30/19 13:20 Dose: 500,000 units Pantoprazole Sodium (Protonix -) 40 mg PO DAILY [facility] Last Admin: 05/30/19 09:20 Dose: 40 mg Polyethylene Glycol (Miralax (For Daily Use) -) 17 gm GT DAILY [facility] Last Admin: 05/30/19 10:37 Dose: 17 grams Scopolamine HBr (Transderm-Scop -) 1 patch TD Q72H [facility] Senna (Senna Oral Solution -) 8.8 mg GT HS [facility] Last Admin: 05/29/19 22:00 Dose: 8.8 mg Thiamine HCl (Vitamin B1 Injection -) 200 mg IVPB DAILY [facility] Last Admin: 05/30/19 09:23 Dose: 200 mg - Objective Vital Signs: Vital Signs Temperature 98.5 F 05/30/19 14:00 Pulse Rate 77 05/30/19 14:00 Respiratory Rate 18 05/30/19 14:00 Blood Pressure 133/71 05/30/19 14:00 O2 Sat by Pulse Oximetry (%) 92 L 05/30/19 12:04 Constitutional: Yes: Calm Eyes: Yes: Conjunctiva Clear HENT: Yes: Atraumatic Neck: Yes: Supple Cardiovascular: Yes: S1, S2 Respiratory: Yes: CTA Bilaterally Gastrointestinal: Yes: Soft Genitourinary: Yes: WNL Musculoskeletal: Yes: WNL Edema: Yes Edema: LLE: 1+, RLE: 1+ Neurological: Yes: Lethargy Labs: CBC, BMP 05/30/19 06:36 05/30/19 06:36 INR, PTT INR 1.05 (0.83-1.09) 05/24/19 06:00 Problem List - Problems (1) Acute decompensated heart failure Code(s): I50.9 - HEART FAILURE, UNSPECIFIED (2) Atrial fibrillation and flutter Code(s): I48.91 - UNSPECIFIED ATRIAL FIBRILLATION; I48.92 - UNSPECIFIED ATRIAL FLUTTER (3) Hyperkalemia Code(s): E87.5 - HYPERKALEMIA (4) Pneumonia Code(s): J18.9 - PNEUMONIA, UNSPECIFIED ORGANISM Qualifiers: Pneumonia type: due to unspecified organism (5) Sarcoidosis of other sites Code(s): D86.89 - SARCOIDOSIS OF OTHER SITES Assessment/Plan Current Medications Generic Name Dose Route Start Last Admin Trade Name Freq PRN Reason Stop Dose Admin Acetaminophen 500 mg 05/29/19 10:00 05/30/19 09:22 Tylenol - PO 05/31/19 10:01 500 mg DAILY ELISSA Administration Acetaminophen 650 mg 05/29/19 08:04 Tylenol Oral Solution - GT Q6H PRN Fever Or Pain Amino Acids 30 ml 05/30/19 17:30 Prosource No Carb Liquid Pkt PO BID@0800,1730 ELISSA Apixaban 5 mg 05/28/19 22:00 05/30/19 09:21 Eliquis - PEG 5 mg BID ELISSA Administration Atorvastatin Calcium 40 mg 05/28/19 22:00 05/29/19 22:00 Lipitor - PO 40 mg HS ELISSA Administration Diltiazem HCl 30 mg 05/29/19 14:00 05/30/19 05:06 Cardizem - PO 30 mg TID ELISSA Administration Diphenhydramine HCl 50 mg 05/29/19 10:00 05/30/19 09:23 Benadryl Injection - IVPB 05/31/19 10:01 50 mg DAILY ELISSA Administration Docusate Sodium 200 mg 05/29/19 07:16 05/29/19 11:29 Colace Liquid - GT 200 mg DAILY PRN Administration CONSTIPATION Ferrous Sulfate 300 mg 05/29/19 10:00 05/30/19 09:24 Feosol NGT 300 mg BID ELISSA Administration Furosemide 40 mg 05/28/19 13:15 05/30/19 09:24 Lasix Oral Solution - NGT 40 mg DAILY ELISSA Administration Immune Globulin/ Immune 450 mls @ 72 mls/hr 05/29/19 10:00 05/30/19 10:53 Globulin IVPB 05/31/19 16:14 72 mls/hr DAILY ELISSA Administration Protocol Insulin Aspart 1 vial 05/29/19 11:00 05/30/19 11:30 Novolog Vial Sliding Scale - SQ Not Given ACHS [facility] Protocol Insulin Detemir 18 units 05/30/19 07:00 05/30/19 06:08 Levemir Vial SQ 18 units AM ELISSA Administration Lisinopril 10 mg 05/29/19 10:00 05/30/19 09:23 Prinivil NGT 10 mg DAILY ELISSA Administration Metoprolol Tartrate 25 mg 05/29/19 14:00 05/30/19 05:06 Lopressor - GT 25 mg TID ELISSA Administration Nystatin 500,000 units 05/29/19 12:00 05/30/19 13:20 Nystatin Oral Suspension - PO 500,000 units Q6HPO ELISSA Administration Pantoprazole Sodium 40 mg 05/29/19 12:00 05/30/19 09:20 Protonix - PO 40 mg DAILY ELISSA Administration Polyethylene Glycol 17 gm 05/29/19 10:00 05/30/19 10:37 Miralax (For Daily Use) - GT 17 grams DAILY ELISSA Administration Scopolamine HBr 1 patch 06/01/19 05:15 Transderm-Scop - TD Q72H ELISSA Senna 8.8 mg 05/29/19 22:00 05/29/19 22:00 Senna Oral Solution - GT 8.8 mg HS ELISSA Administration Thiamine HCl 200 mg 05/29/19 10:00 05/30/19 09:23 Vitamin B1 Injection - IVPB 200 mg DAILY ELISSA Administration Impression 1. RYNE 2. hyperkalemia 3. resp failure requiring intubation 4. resp acidosis 5. dm 6. hx htn 7. sleep apnea 8. obesity 9. hx non compliance 10. chf 11. sarcoid 12. volume overload 13. hypernatremia Plan - cont lasix - replace mag - monitor lytes closely - vent support - cont feeds
[2019-05-30 17:08] LABS: MYELIN BASIC PROTEIN,CSF 3.7 ng/mL (0.0-4.7)
[2019-05-30] MEDS: AMINO ACIDS/PROTEIN HYDROLYS 30 ML LIQUID.PKT PO SCH (17:58)
[2019-05-30] MEDS: ATORVASTATIN CA 40 MG TABLET (FP) PO SCH (21:21)
[2019-05-30] MEDS: SENNOSIDES 8.8 MG/5 ML BULK BOTTLE GT SCH (21:22)
[2019-05-31] MEDS: NYSTATIN 500,000 UNITS/5 ML SUSPENSION PO SCH ×4 (05:28→18:00)
[2019-05-31] MEDS: METOPROLOL TARTRATE 25 MG TABLET (FP) GT SCH ×3 (05:28→22:07)
[2019-05-31] MEDS: dilTIAZem HCL 30 MG TABLET (FP) PO SCH ×3 (05:28→21:42)
[2019-05-31] MEDS: INSULIN (LEVEMIR) 100 UNITS/ML UNITS SQ SCH (06:16)
[2019-05-31] MEDS: INSULIN SLIDING SCALE (NOVOLOG) 1 VIAL SQ SCH ×4 (06:16→22:12)
[2019-05-31 06:23] LABS: BASO % 0.8 % (0-2.0); EOS % 1.1 % (0-4.5); HEMATOCRIT 31.5 % (35.4-49); HEMOGLOBIN 9.8 GM/dL (11.7-16.9); MCH 25.2 pg (25.7-33.7); MCHC 31.1 g/dl (32.0-35.9); MEAN CELL VOLUME 81.1 fl (80-96); MEAN PLT VOLUME 9.3 fl (7.5-11.1); MONO % 14.3 % (3.8-10.2); NEUT % 76.8 % (42.8-82.8); PLATELET COUNT 142 K/MM3 (134-434); RBC 3.88 M/mm3 (4.00-5.60); RDW 19.4 % (11.9-15.9); WHITE BLOOD COUNT 3.9 K/mm3 (4.0-10.0)
--- NOTE | 2019-05-31 07:27 | PN ---
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 (short form) - Note 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: Pulm/CCM SUBJECTIVE: Patient seen and examined in the ICU. PS wean ongoing Possibly some improvement in weakness Awaiting Vent bed OBJECTIVE: Vital Signs Temp 98 F 05/31/19 06:00 Pulse 76 05/31/19 06:00 Resp 18 05/31/19 06:00 BP 130/90 05/31/19 06:00 Pulse Ox 100 05/30/19 20:05 Intake & Output 05/30/19 05/30/19 05/31/19 11:59 23:59 11:59 Intake Total 1170 970 900 Output Total 500 400 800 Balance 670 570 100 Weight 120.8 kg 120.8 kg Intake: IV 450 IVPB 200 Tube Feeding 480 480 600 Tube Irrigant 240 290 300 Output: Urine 500 400 800 Andrews 500 400 800 Other: Voiding Method Indwelling Catheter Indwelling Catheter Bowel Movement Yes # Bowel Movements 1 Height 5 ft 6 in Body Mass Index (BMI) 42.9 Weight Measurement Method Built in [facility] Active Medications Acetaminophen (Tylenol -) 500 mg PO DAILY [facility] Stop: 05/31/19 10:01 Last Admin: 05/30/19 09:22 Dose: 500 mg Acetaminophen (Tylenol Oral Solution -) 650 mg GT Q6H PRN PRN Reason: Fever Or Pain Amino Acids (Prosource No Carb Liquid Pkt) 30 ml PO BID@0800,1730 [facility] Last Admin: 05/30/19 17:58 Dose: 30 ml Apixaban (Eliquis -) 5 mg PEG BID [facility] Last Admin: 05/30/19 21:21 Dose: 5 mg Atorvastatin Calcium (Lipitor -) 40 mg PO HS [facility] Last Admin: 05/30/19 21:21 Dose: 40 mg Diltiazem HCl (Cardizem -) 30 mg PO TID [facility] Last Admin: 05/31/19 05:28 Dose: 30 mg Diphenhydramine HCl (Benadryl Injection -) 50 mg IVPB DAILY [facility] Stop: 05/31/19 10:01 Last Admin: 05/30/19 09:23 Dose: 50 mg Docusate Sodium (Colace Liquid -) 200 mg GT DAILY PRN PRN Reason: CONSTIPATION Last Admin: 05/29/19 11:29 Dose: 200 mg Ferrous Sulfate (Feosol) 300 mg NGT BID [facility] Last Admin: 05/30/19 21:21 Dose: 300 mg Furosemide (Lasix Oral Solution -) 40 mg NGT DAILY [facility] Last Admin: 05/30/19 09:24 Dose: 40 mg Immune Globulin/ Immune (Globulin) 450 mls @ 72 mls/hr IVPB DAILY [facility]; Protocol Stop: 05/31/19 16:14 Last Admin: 05/30/19 10:53 Dose: 72 mls/hr Insulin Aspart (Novolog Vial Sliding Scale -) 1 vial SQ ACHS [facility]; Protocol Last Admin: 05/31/19 06:16 Dose: Not Given Insulin Detemir (Levemir Vial) 18 units SQ AM [facility] Last Admin: 05/31/19 06:16 Dose: 18 units Lisinopril (Prinivil) 10 mg NGT DAILY [facility] Last Admin: 05/30/19 09:23 Dose: 10 mg Metoprolol Tartrate (Lopressor -) 25 mg GT TID [facility] Last Admin: 05/31/19 05:28 Dose: 25 mg Nystatin (Nystatin Oral Suspension -) 500,000 units PO Q6HPO [facility] Last Admin: 05/31/19 05:28 Dose: 500,000 units Pantoprazole Sodium (Protonix -) 40 mg PO DAILY [facility] Last Admin: 05/30/19 09:20 Dose: 40 mg Polyethylene Glycol (Miralax (For Daily Use) -) 17 gm GT DAILY [facility] Last Admin: 05/30/19 10:37 Dose: 17 grams Scopolamine HBr (Transderm-Scop -) 1 patch TD Q72H [facility] Senna (Senna Oral Solution -) 8.8 mg GT HS [facility] Last Admin: 05/30/19 21:22 Dose: 8.8 mg Thiamine HCl (Vitamin B1 Injection -) 200 mg IVPB DAILY [facility] Last Admin: 05/30/19 09:23 Dose: 200 mg Gen: vented, awake, tracks Heart: irregular Lung: decreased breath sounds at the bases Abd: softly distended, nontender, +G tube Ext: trace edema Neuro: weak bilaterally CBC,CMP WBC 3.9 K/mm3 (4.0-10.0) L 05/31/19 05:48 RBC 3.88 M/mm3 (4.00-5.60) L 05/31/19 05:48 Hgb 9.8 GM/dL (11.7-16.9) L 05/31/19 05:48 Hct 31.5 % (35.4-49) L 05/31/19 05:48 MCV 81.1 fl (80-96) 05/31/19 05:48 MCH 25.2 pg (25.7-33.7) L 05/31/19 05:48 MCHC 31.1 g/dl (32.0-35.9) L 05/31/19 05:48 RDW 19.4 % (11.9-15.9) H 05/31/19 05:48 Plt Count 142 K/MM3 (134-434) 05/31/19 05:48 MPV 9.3 fl (7.5-11.1) 05/31/19 05:48 Absolute Neuts (auto) 3.0 K/mm3 (1.5-8.0) 05/31/19 05:48 Total Counted 100 05/03/19 06:10 Neutrophils % 76.8 % (42.8-82.8) 05/31/19 05:48 Neutrophils % (Manual) 92.0 % (42.8-82.8) H 05/14/19 06:05 Band Neutrophils % 0.0 % 05/14/19 06:05 Lymphocytes % 7.0 % (8-40) L D 05/31/19 05:48 Lymphocytes % (Manual) 2.0 % (8-40) L 05/14/19 06:05 Monocytes % 14.3 % (3.8-10.2) H D 05/31/19 05:48 Monocytes % (Manual) 6 % (3.8-10.2) D 05/14/19 06:05 Eosinophils % 1.1 % (0-4.5) 05/31/19 05:48 Eosinophils % (Manual) 0.0 % (0-4.5) 05/14/19 06:05 Basophils % 0.8 % (0-2.0) 05/31/19 05:48 Basophils % (Manual) 0.0 % (0-2.0) 05/14/19 06:05 Myelocytes % (Man) 0 % (0-2) 05/14/19 06:05 Promyelocytes % (Man) 0 % (0-2) 05/14/19 06:05 Blast Cells % (Manual) 0 % (0-0) 05/14/19 06:05 Nucleated RBC % 0 % (0-0) 05/31/19 05:48 Metamyelocytes 0 % (0-2) 05/14/19 06:05 Hypochromia 0 05/25/19 06:00 Toxic Granulation 2+ 05/08/19 06:05 Platelet Estimate Normal 05/25/19 06:00 Platelet Comment Present 05/13/19 10:35 Polychromasia 1+ 05/25/19 06:00 Poikilocytosis 0 05/14/19 06:05 Basophilic Stippling 1+ 05/01/19 05:25 Anisocytosis 1+ 05/25/19 06:00 Microcytosis 0 05/25/19 06:00 Macrocytosis 0 05/25/19 06:00 Spherocytes 1+ 05/13/19 10:35 Target Cells 1+ 05/13/19 10:35 Tear Drop Cells 1+ 05/13/19 10:35 Ovalocytes 1+ 05/08/19 06:05 Stomatocytes 1+ 05/07/19 05:15 [place] Cells 1+ 05/03/19 06:10 Acanthocytes (Spur) 1+ 05/08/19 06:05 Fragmented RBCs 1+ 05/13/19 10:35 Sodium 138 mmol/L (136-145) 05/30/19 06:36 Potassium 3.9 mmol/L (3.5-5.1) 05/30/19 06:36 Chloride 104 mmol/L (98-107) 05/30/19 06:36 Carbon Dioxide 28 mmol/L (21-32) 05/30/19 06:36 Anion Gap 6 MMOL/L (8-16) L 05/30/19 06:36 BUN 31.0 mg/dL (7-18) H 05/30/19 06:36 Creatinine 1.0 mg/dL (0.55-1.3) 05/30/19 06:36 Est GFR (CKD-EPI)AfAm 100.55 05/30/19 06:36 Est GFR (CKD-EPI)NonAf 86.76 05/30/19 06:36 POC Glucometer 114 UNITS (80-120) 05/31/19 05:48 Random Glucose 138 mg/dL (74-106) H 05/30/19 06:36 Hemoglobin A1c % 8.9 % (4.2-6.3) H 05/01/19 05:25 Lactic Acid 1.2 mmol/L (0.4-2.0) 04/30/19 12:45 Calcium 8.3 mg/dL (8.5-10.1) L 05/30/19 06:36 Phosphorus 3.4 mg/dL (2.5-4.9) 05/30/19 06:36 Magnesium 1.5 mg/dL (1.8-2.4) L 05/30/19 06:36 Iron 26 ug/dL (50-175) L 05/01/19 05:25 TIBC 389 ug/dL (250-450) 05/01/19 05:25 Iron Saturation 6 % (17.5-39) L 05/01/19 05:25 Unsaturated IBC 363 ug/dL (200-275) H 05/01/19 05:25 Ferritin 36.6 ng/ml (8-388) 05/01/19 05:25 Total Bilirubin 0.8 mg/dL (0.2-1) 05/30/19 06:36 Direct Bilirubin 0.2 mg/dL (0.0-0.2) 05/05/19 05:30 AST 27 U/L (15-37) 05/30/19 06:36 ALT 26 U/L (13-61) 05/30/19 06:36 Alkaline Phosphatase 82 U/L (45-117) 05/30/19 06:36 Creatine Kinase 179 U/L (26-308) 05/11/19 05:55 Creatine Kinase Index No Result Required. 05/11/19 05:55 CK-MB (CK-2) < 1.0 ng/mL (0.5-3.6) 05/11/19 05:55 Troponin I < 0.02 ng/ml (0.00-0.05) 05/05/19 05:30 B-Natriuretic Peptide 781.3 pg/ml (5-125) H 05/04/19 05:20 Total Protein 6.9 g/dl (6.4-8.2) 05/30/19 06:36 Albumin 2.0 g/dl (3.4-5.0) L 05/30/19 06:36 Triglycerides 232 mg/dL (0-150) H 05/27/19 10:25 Cholesterol 205 mg/dL (50-200) H 05/27/19 10:25 Total LDL Cholesterol 130 mg/dL (5-100) H 05/27/19 10:25 HDL Cholesterol 36 mg/dL (40-60) L 05/27/19 10:25 TSH 1.59 uIU/ml (0.358-3.74) 05/11/19 05:55 ASSESSMENT AND PLAN: Acute Hypoxic and Hypercapneic Respiratory Failure s/p tracheostomy Pneumonia Gram Positive Bacteremia Septic Shock resolved Lactic Acidosis resolved ARDS resolved Paroxysmal Atrial Fluter with RVR Acute on Chronic Diastolic Heart Failure Acute on Chronic Renal Failure r/o Guillian [place] Syndrome DM Anemia Sarcoidosis - IVIG per Neuro - continue antibiotics - rate control - continue anticoagulation - lasix for goal O>I - monitor urine output, creatinine - PS wean vs trach collar - enteral feeds - DVT/GI prophylaxis - Vent floor when available [place] ACNP [id number]
[2019-05-31 08:20] LABS: BILIRUBIN,TOTAL 0.6 mg/dL (0.2-1); BLOOD UREA NITROGEN 28.8 mg/dL (7-18); CALCIUM 8.4 mg/dL (8.5-10.1); CREATININE 0.9 mg/dL (0.55-1.3); MAGNESIUM 1.8 mg/dL (1.8-2.4); PHOSPHOROUS 3.4 mg/dL (2.5-4.9); POTASSIUM 3.7 mmol/L (3.5-5.1); TOT PROT 7.3 g/dl (6.4-8.2)
[2019-05-31] MEDS: AMINO ACIDS/PROTEIN HYDROLYS 30 ML LIQUID.PKT PO SCH ×2 (08:51→18:00)
[2019-05-31] MEDS: LISINOPRIL 10 MG TABLET (FP) NGT SCH (09:01)
[2019-05-31] MEDS: PANTOPRAZOLE 40 MG TABLET PO SCH (09:01)
[2019-05-31] MEDS: APIXABAN 5 MG TABLET PEG SCH ×2 (09:01→21:42)
[2019-05-31] MEDS: THIAMINE HCL 200 MG/2 ML VIAL IVPB SCH (09:02)
[2019-05-31] MEDS ORDERED: PT OWN MED DRAWER 7, Y5N ONE ×3 (10:29→21:40)
--- NOTE | 2019-05-31 10:29 | PN ---
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, Physician Chief Complaint: Events noted Remains in ICU trached on mechanical ventilator. 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 Chart was reviewed Remains in ICU awake on trache - Current Medication List Current Medications: Active Medications Acetaminophen (Tylenol Oral Solution -) 650 mg GT Q6H PRN PRN Reason: Fever Or Pain Amino Acids (Prosource No Carb Liquid Pkt) 30 ml PO BID@0800,1730 [facility] Last Admin: 05/31/19 08:51 Dose: 30 ml Apixaban (Eliquis -) 5 mg PEG BID [facility] Last Admin: 05/31/19 09:01 Dose: 5 mg Atorvastatin Calcium (Lipitor -) 40 mg PO HS [facility] Last Admin: 05/30/19 21:21 Dose: 40 mg Diltiazem HCl (Cardizem -) 30 mg PO TID [facility] Last Admin: 05/31/19 05:28 Dose: 30 mg Docusate Sodium (Colace Liquid -) 200 mg GT DAILY PRN PRN Reason: CONSTIPATION Last Admin: 05/29/19 11:29 Dose: 200 mg Ferrous Sulfate (Feosol) 300 mg NGT BID [facility] Last Admin: 05/30/19 21:21 Dose: 300 mg Furosemide (Lasix Oral Solution -) 40 mg NGT DAILY [facility] Last Admin: 05/30/19 09:24 Dose: 40 mg Immune Globulin/ Immune (Globulin) 450 mls @ 72 mls/hr IVPB DAILY [facility]; Protocol Stop: 05/31/19 16:14 Last Admin: 05/30/19 10:53 Dose: 72 mls/hr Insulin Aspart (Novolog Vial Sliding Scale -) 1 vial SQ ACHS [facility]; Protocol Last Admin: 05/31/19 06:16 Dose: Not Given Insulin Detemir (Levemir Vial) 18 units SQ AM [facility] Last Admin: 05/31/19 06:16 Dose: 18 units Lisinopril (Prinivil) 10 mg NGT DAILY [facility] Last Admin: 05/31/19 09:01 Dose: 10 mg Metoprolol Tartrate (Lopressor -) 25 mg GT TID [facility] Last Admin: 05/31/19 05:28 Dose: 25 mg Nystatin (Nystatin Oral Suspension -) 500,000 units PO Q6HPO [facility] Last Admin: 05/31/19 05:28 Dose: 500,000 units Pantoprazole Sodium (Protonix -) 40 mg PO DAILY [facility] Last Admin: 05/31/19 09:01 Dose: 40 mg Polyethylene Glycol (Miralax (For Daily Use) -) 17 gm GT DAILY [facility] Last Admin: 05/30/19 10:37 Dose: 17 grams Scopolamine HBr (Transderm-Scop -) 1 patch TD Q72H [facility] Senna (Senna Oral Solution -) 8.8 mg GT HS [facility] Last Admin: 05/30/19 21:22 Dose: 8.8 mg Thiamine HCl (Vitamin B1 Injection -) 200 mg IVPB DAILY [facility] Last Admin: 05/31/19 09:02 Dose: 200 mg - Objective Vital Signs: Vital Signs Temperature 98 F 05/31/19 06:00 Pulse Rate 75 05/31/19 08:21 Respiratory Rate 15 05/31/19 08:21 Blood Pressure 130/90 05/31/19 06:00 O2 Sat by Pulse Oximetry (%) 100 05/31/19 08:21 Neck: Yes: Supple Cardiovascular: Yes: Regular Rate and Rhythm, S1, S2 Respiratory: Yes: Diminished, Mechanically Ventilated, Other (tracheostomy) Gastrointestinal: Yes: Normal Bowel Sounds, Soft. No: Tenderness Edema: No Labs: CBC, BMP 05/31/19 05:48 05/31/19 05:48 Problem List - Problems (1) Acute decompensated heart failure Code(s): I50.9 - HEART FAILURE, UNSPECIFIED (2) Acute hypercapnic respiratory failure due to obstructive sleep apnea Code(s): J96.02 - ACUTE RESPIRATORY FAILURE WITH HYPERCAPNIA; G47.33 - OBSTRUCTIVE SLEEP APNEA (ADULT) (PEDIATRIC) (3) Acute renal failure Code(s): N17.9 - ACUTE KIDNEY FAILURE, UNSPECIFIED Qualifiers: Acute renal failure type: unspecified Qualified Code(s): N17.9 - Acute kidney failure, unspecified (4) Atrial fibrillation and flutter Code(s): I48.91 - UNSPECIFIED ATRIAL FIBRILLATION; I48.92 - UNSPECIFIED ATRIAL FLUTTER (5) Hyperkalemia Code(s): E87.5 - HYPERKALEMIA (6) Pneumonia Code(s): J18.9 - PNEUMONIA, UNSPECIFIED ORGANISM Qualifiers: Pneumonia type: due to unspecified organism (7) Sarcoidosis of other sites Code(s): D86.89 - SARCOIDOSIS OF OTHER SITES (8) Septic shock Code(s): A41.9 - SEPSIS, UNSPECIFIED ORGANISM; R65.21 - SEVERE SEPSIS WITH SEPTIC SHOCK (9) Type 2 diabetes mellitus Code(s): E11.9 - TYPE 2 DIABETES MELLITUS WITHOUT COMPLICATIONS Qualifiers: Diabetes mellitus chcf insulin use: without chcf use Diabetes mellitus complication detail: with chronic kidney disease Chronic kidney disease stage: stage 2 (mild) Assessment/Plan 1. Acute hypoxic and hypercapneic respiratory failure currently on mechanical ventilation via tracheostomy 2. Post pneumonia, septic shock, Gram Positive Bacteremia and ARDS 3. Sarcoidosis confirmed by skin biopsy 4. OSAS nonadherent to CPAP 5. Paroxysmal Aflutter/Afib 6. Acute on chronic diastolic heart failure 7. Acute on CKD with hyperkalemia 8. Type 2 DM 9. Anemia 10. 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 Trial of IVIG possible plasmapharesis, bronchodilator and enteral feeds 2. Vent management per ICU team 3. Rate-control with uptitrate oral Lopressor 25 mg TID and Cardizem 30 mg TDI as hemodynamics tolerate, IV Cardizem and Lopressor as needed and continue Eliquis 5 mg BID 4. Lasix 40 QD (NGT) as needed with monitor renal function and electrolytes 5. Continue lisinopril 10 mg QD and Lipitor 40 qd 6. Follow up with Dr. Genaro Davila (cardiology at [place]). Consider cardiac PET or MRI to exclude cardiac involvement in sarcoidosis as outpatient Shin Cutler MD
[2019-05-31] MEDS: ACETAMINOPHEN 500 MG TABLET (FP) PO SCH (10:31)
[2019-05-31] MEDS: FUROSEMIDE 40 MG/5 ML UNIT-DOSE CUP NGT SCH (10:31)
[2019-05-31] MEDS: FERROUS SO4 300 MG/5 ML ORAL SOLN UNIT DOSE CUPS NGT SCH ×2 (10:31→21:42)
[2019-05-31] MEDS: POLYETHYLENE GLYCOL 3350 119 GM BTL GT SCH (10:36)
[2019-05-31] MEDS: PRO IVPB SCH (10:42)
[2019-05-31] MEDS: PRO IMMUN GLOB IVPB SCH (10:42)
[2019-05-31] MEDS: IMMUN GLOB IVPB SCH (10:42)
[2019-05-31] MEDS: IGA IVPB SCH (10:42)
--- NOTE | 2019-05-31 15:09 | PN ---
Teaching Attending Note Name of Resident: Magnus Lloyd ATTENDING PHYSICIAN STATEMENT I saw and evaluated the patient. I reviewed the resident's note and discussed the case with the resident. I agree with the resident's findings and plan as documented. Seen and examined; please see resident note for further historical information. I personally verified all valadez historical information and exam findings. Personally interpreted all imaging and diagnostics and reviewed appropriate consults. I reviewed all labs and vital signs as per resident note and EMR as documented. I agree with the above assessment and plan unless supplemented by myself in the following. 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 I discussed this with neurology and we started the patient on IVIG infusion. This will delay the PEG tube placement given the fact that the patient will need to have the infusion started and monitored by nursing. PEG tube can be placed later today or tomorrow. We can continue feeding through Dobbhoff tube. Glycemic control is suboptimal. Continues on meropenem for ESBL growing up in the sputum. Seen by thoracic surgery for concern of oozing around tracheostomy. Per their service there is no evidence for potential for serious bleeding is a skin incision is taught and regular skin care was recommended and it is okay to anticoagulate from the perspective of the tracheostomy site. Patient is tolerating his IVIG, no significant change in neurologic exam. Following up with neurology. Dr. Mchugh has signed out to Dr. Jaime. Pending feedback from neurology regarding patient. No new issues. 10 item review of systems could not be obtained due to underlying clinical status VS, labs, imaging reviewed NAD, AAO, resting comfortably in bed and responds to verbal and painful stimuli. He is status post tracheostomy Heart rate within normal limits s1/2 no mgr Normal muscle tone, moves all 5 extremities with normal apparent strength Neck is supple, trachea midline, no fernanda LN. no oozing with tracheostomy site intact Lungs with ventilator associated breath sounds with sym expansion NT ND +BS no fernanda organomegaly CN2-12 wnl; no FND NC AT EOMI PERRLA Normal mood, appropriate behavior, euthymic affect No skin breakdown or rashes noted Assessment and plan: Patient with prolonged hospitalization status post respiratory failure due to pneumonia with potential component of diastolic CHF exacerbation potentially secondary to cardiac sarcoidosis with outpatient testing to be obtained. He is status post tracheostomy placement and has been cleared to resume anticoagulation from a surgical perspective with relation to this. 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 Neurology has opted to start IVIG therapy Problems include: -Ventilator dependent respiratory failure -Subacute mixed respiratory failure -Potential Selene Vigil syndrome -Anemia -Uncontrolled diabetes mellitus -Persistent atrial flutter versus paroxysmal atrial fibrillation on heparin, rate improved -ARDS, resolving -Biopsy-proven sarcoidosis, rule out cardiac sarcoidosis with outpatient biopsy -History of EMMY, noncompliant with CPAP -RYNE on CKD, nephrology following -Need for PEG tube, delaying until tomorrow -Morbid obesity, BMI 43 Full code Continue IVIG course; monitor for any decompensation which would imply a need for PLEX. Will defer this to neuro and reach out to Dr. Jaime's service as Dr. mchugh is no longer covering.
[2019-05-31] MEDS: SENNOSIDES 8.8 MG/5 ML BULK BOTTLE GT SCH (21:42)
[2019-05-31] MEDS: ATORVASTATIN CA 40 MG TABLET (FP) PO SCH (21:42)
--- NOTE | 2019-05-31 23:51 | PN ---
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 (short form) - Note 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: covering dr billings Problem 1. RYNE 2. hyperkalemia 3. resp failure requiring intubation 4. resp acidosis 5. dm 6. hx htn 7. sleep apnea 8. obesity 9. hx non compliance 10. chf 11. sarcoid 12. volume overload 13. hypernatremia Active Medications Acetaminophen (Tylenol Oral Solution -) 650 mg GT Q6H PRN PRN Reason: Fever Or Pain Amino Acids (Prosource No Carb Liquid Pkt) 30 ml PO BID@0800,1730 [facility] Last Admin: 05/31/19 18:00 Dose: 30 ml Apixaban (Eliquis -) 5 mg PEG BID [facility] Last Admin: 05/31/19 21:42 Dose: 5 mg Atorvastatin Calcium (Lipitor -) 40 mg PO HS [facility] Last Admin: 05/31/19 21:42 Dose: 40 mg Diltiazem HCl (Cardizem -) 30 mg PO TID [facility] Last Admin: 05/31/19 21:42 Dose: 30 mg Docusate Sodium (Colace Liquid -) 200 mg GT DAILY PRN PRN Reason: CONSTIPATION Last Admin: 05/29/19 11:29 Dose: 200 mg Ferrous Sulfate (Feosol) 300 mg NGT BID [facility] Last Admin: 05/31/19 21:42 Dose: 300 mg Furosemide (Lasix Oral Solution -) 40 mg NGT DAILY [facility] Last Admin: 05/31/19 10:31 Dose: 40 mg Insulin Aspart (Novolog Vial Sliding Scale -) 1 vial SQ ACHS [facility]; Protocol Last Admin: 05/31/19 22:12 Dose: Not Given Insulin Detemir (Levemir Vial) 18 units SQ AM [facility] Last Admin: 05/31/19 06:16 Dose: 18 units Lisinopril (Prinivil) 10 mg NGT DAILY [facility] Last Admin: 05/31/19 09:01 Dose: 10 mg Metoprolol Tartrate (Lopressor -) 25 mg GT TID [facility] Last Admin: 05/31/19 22:07 Dose: 25 mg Nystatin (Nystatin Oral Suspension -) 500,000 units PO Q6HPO [facility] Last Admin: 05/31/19 18:00 Dose: 500,000 units Pantoprazole Sodium (Protonix -) 40 mg PO DAILY [facility] Last Admin: 05/31/19 09:01 Dose: 40 mg Polyethylene Glycol (Miralax (For Daily Use) -) 17 gm GT DAILY [facility] Last Admin: 05/31/19 10:36 Dose: 17 grams Scopolamine HBr (Transderm-Scop -) 1 patch TD Q72H [facility] Senna (Senna Oral Solution -) 8.8 mg GT HS [facility] Last Admin: 05/31/19 21:42 Dose: 8.8 mg Thiamine HCl (Vitamin B1 Injection -) 200 mg IVPB DAILY [facility] Last Admin: 05/31/19 09:02 Dose: 200 mg Last Vital Signs Temp Pulse Resp BP Pulse Ox 98.9 F 77 18 131/80 100 05/31/19 22:00 05/31/19 22:00 06/01/19 00:25 05/31/19 22:00 05/31/19 20:42 in nad Lungs clear Heart reg Abd soft nontender Ext no edema CBC, BMP 05/31/19 05:48 05/31/19 05:48 Plan - cont lasix - replace mag - monitor lytes closely - vent support - cont feeds
[2019-06-01] MEDS: NYSTATIN 500,000 UNITS/5 ML SUSPENSION PO SCH ×4 (02:36→17:55)
[2019-06-01] MEDS ORDERED: SCOPOLAMINE HYDROBROMIDE 1 PATCH PATCH.TD72 TD SCH (05:15)
[2019-06-01] MEDS: dilTIAZem HCL 30 MG TABLET (FP) PO SCH ×3 (05:29→22:00)
[2019-06-01] MEDS: METOPROLOL TARTRATE 25 MG TABLET (FP) GT SCH ×3 (05:29→22:00)
[2019-06-01] MEDS: INSULIN SLIDING SCALE (NOVOLOG) 1 VIAL SQ SCH ×4 (06:26→22:55)
[2019-06-01 06:30] LABS: HEMATOCRIT 31.7 % (35.4-49); MCH 25.6 pg (25.7-33.7); MCHC 31.5 g/dl (32.0-35.9); MEAN CELL VOLUME 81.4 fl (80-96); MEAN PLT VOLUME 9.1 fl (7.5-11.1); PLATELET COUNT 148 K/MM3 (134-434); RBC 3.89 M/mm3 (4.00-5.60); RDW 19.7 % (11.9-15.9); WHITE BLOOD COUNT 3.3 K/mm3 (4.0-10.0)
[2019-06-01] MEDS: INSULIN (LEVEMIR) 100 UNITS/ML UNITS SQ SCH (06:31)
[2019-06-01 06:39] LABS: BLOOD UREA NITROGEN 25.5 mg/dL (7-18); CALCIUM 8.1 mg/dL (8.5-10.1); CREATININE 0.9 mg/dL (0.55-1.3); MAGNESIUM 1.6 mg/dL (1.8-2.4); PHOSPHOROUS 3.8 mg/dL (2.5-4.9); POTASSIUM 3.9 mmol/L (3.5-5.1)
[2019-06-01] MEDS: AMINO ACIDS/PROTEIN HYDROLYS 30 ML LIQUID.PKT PO SCH ×2 (08:25→17:55)
[2019-06-01] MEDS ORDERED: MAGNESIUM SULF 50% (8.12 MEQ/2 ML-1 GM VIAL) IVPB ONE (09:15)
[2019-06-01] MEDS ORDERED: PT OWN MED DRAWER 7, Y5N ONE ×2 (09:25→21:57)
--- NOTE | 2019-06-01 09:52 | PN ---
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 (short form) - Note 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: Pulm/CCM Subjective: Patient seen and examined in ICU No acute distresses. Remains trach/vent. Vital Signs Temperature 98.9 F 05/31/19 22:00 Pulse Rate 77 06/01/19 08:12 Respiratory Rate 18 06/01/19 08:12 Blood Pressure 104/66 06/01/19 08:00 O2 Sat by Pulse Oximetry (%) 98 06/01/19 08:12 CBC, BMP 06/01/19 06:00 06/01/19 06:00 Intake & Output 05/29/19 05/30/19 05/31/19 06/01/19 23:59 23:59 23:59 23:59 Intake Total 110 2140 2540 646 Output Total 2995 806 9538 200 Balance -1640 1240 790 446 Weight 120.8 kg 120.67 kg 116.7 kg Home Medication List Medication Instructions Recorded Confirmed Type Apixaban [Eliquis] 5 mg PO BID 04/30/19 04/30/19 History Diltiazem Cd [Cardizem Cd -] 300 mg PO DAILY 04/30/19 04/30/19 History Metformin HCl [Glucophage] 1,000 mg PO BID 04/30/19 04/30/19 History RX: Amiodarone HCl 200 mg PO DAILY 04/30/19 04/30/19 History RX: Furosemide 40 mg PO BID 04/30/19 04/30/19 History RX: Glipizide 10 mg PO DAILY 04/30/19 04/30/19 History RX: Lisinopril 10 mg PO DAILY 04/30/19 04/30/19 History Sitagliptin Phosphate [Januvia] 100 mg PO DAILY 04/30/19 04/30/19 History Active Medications Generic Name Dose Route Start Last Admin Trade Name Freq PRN Reason Stop Dose Admin Acetaminophen 650 mg 05/29/19 08:04 Tylenol Oral Solution - GT Q6H PRN Fever Or Pain Amino Acids 30 ml 05/30/19 17:30 06/01/19 08:25 Prosource No Carb Liquid Pkt PO 30 ml BID@0800,1730 [facility] Administration Apixaban 5 mg 05/28/19 22:00 05/31/19 21:42 Eliquis - PEG 5 mg BID [facility] Administration Atorvastatin Calcium 40 mg 05/28/19 22:00 05/31/19 21:42 Lipitor - PO 40 mg HS [facility] Administration Diltiazem HCl 30 mg 05/29/19 14:00 06/01/19 05:29 Cardizem - PO 30 mg TID [facility] Administration Docusate Sodium 200 mg 05/29/19 07:16 05/29/19 11:29 Colace Liquid - GT 200 mg DAILY PRN Administration CONSTIPATION Ferrous Sulfate 300 mg 05/29/19 10:00 05/31/19 21:42 Feosol NGT 300 mg BID [facility] Administration Furosemide 40 mg 05/28/19 13:15 05/31/19 10:31 Lasix Oral Solution - NGT 40 mg DAILY [facility] Administration Insulin Aspart 1 vial 05/29/19 11:00 06/01/19 06:26 Novolog Vial Sliding Scale - SQ Not Given [facility] Protocol Insulin Detemir 18 units 05/30/19 07:00 06/01/19 06:31 Levemir Vial SQ 18 units AM [facility] Administration Lisinopril 10 mg 05/29/19 10:00 05/31/19 09:01 Prinivil NGT 10 mg DAILY [facility] Administration Metoprolol Tartrate 25 mg 05/29/19 14:00 06/01/19 05:29 Lopressor - GT 25 mg TID [facility] Administration Nystatin 500,000 units 05/29/19 12:00 06/01/19 05:27 Nystatin Oral Suspension - PO 500,000 units Q6HPO [facility] Administration Pantoprazole Sodium 40 mg 05/29/19 12:00 05/31/19 09:01 Protonix - PO 40 mg DAILY [facility] Administration Polyethylene Glycol 17 gm 05/29/19 10:00 05/31/19 10:36 Miralax (For Daily Use) - GT 17 grams DAILY [facility] Administration Scopolamine HBr 1 patch 06/01/19 05:15 06/01/19 05:27 Transderm-Scop - TD 1 patch Q72H [facility] Administration Senna 8.8 mg 05/29/19 22:00 05/31/19 21:42 Senna Oral Solution - GT 8.8 mg HS [facility] Administration Thiamine HCl 200 mg 05/29/19 10:00 05/31/19 09:02 Vitamin B1 Injection - IVPB 200 mg DAILY [facility] Administration ASSESSMENT Acute respiratory failure with hypoxia and hypercapnia s/p tracheostomy Atrial fibrillation and flutter r/o Guillain Vigil syndrome Pneumonia (resolved) Renal failure (resolved) Sarcoidosis Septic shock (resolving) Type 2 diabetes mellitus PLAN IVIG per neuro Continue vent weaning, CPAP when awake Continue Apixaban for AFIB/Aflutter Metoprolol for rate control Continue vent weaning Replete electrolytes, keep Mg>2, KCL >4 PPI ppx, continue tube feeds Insulin coverage scale Dispo: Transfer to 5S, awaiting for bed
--- NOTE | 2019-06-01 10:03 | PN ---
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, Physician Chief Complaint: Events noted Remains in ICU trached on mechanical ventilator. History of Present Illness: Patient was seen and examined. Chart was reviewed Remains in ICU awake on trache - Current Medication List Current Medications: Active Medications Acetaminophen (Tylenol Oral Solution -) 650 mg GT Q6H PRN PRN Reason: Fever Or Pain Amino Acids (Prosource No Carb Liquid Pkt) 30 ml PO BID@0800,1730 [facility] Last Admin: 06/01/19 08:25 Dose: 30 ml Apixaban (Eliquis -) 5 mg PEG BID [facility] Last Admin: 05/31/19 21:42 Dose: 5 mg Atorvastatin Calcium (Lipitor -) 40 mg PO HS [facility] Last Admin: 05/31/19 21:42 Dose: 40 mg Diltiazem HCl (Cardizem -) 30 mg PO TID [facility] Last Admin: 06/01/19 05:29 Dose: 30 mg Docusate Sodium (Colace Liquid -) 200 mg GT DAILY PRN PRN Reason: CONSTIPATION Last Admin: 05/29/19 11:29 Dose: 200 mg Ferrous Sulfate (Feosol) 300 mg NGT BID [facility] Last Admin: 05/31/19 21:42 Dose: 300 mg Furosemide (Lasix Oral Solution -) 40 mg NGT DAILY [facility] Last Admin: 05/31/19 10:31 Dose: 40 mg Insulin Aspart (Novolog Vial Sliding Scale -) 1 vial SQ ACHS [facility]; Protocol Last Admin: 06/01/19 06:26 Dose: Not Given Insulin Detemir (Levemir Vial) 18 units SQ AM [facility] Last Admin: 06/01/19 06:31 Dose: 18 units Lisinopril (Prinivil) 10 mg NGT DAILY [facility] Last Admin: 05/31/19 09:01 Dose: 10 mg Metoprolol Tartrate (Lopressor -) 25 mg GT TID [facility] Last Admin: 06/01/19 05:29 Dose: 25 mg Nystatin (Nystatin Oral Suspension -) 500,000 units PO Q6HPO [facility] Last Admin: 06/01/19 05:27 Dose: 500,000 units Pantoprazole Sodium (Protonix -) 40 mg PO DAILY [facility] Last Admin: 05/31/19 09:01 Dose: 40 mg Polyethylene Glycol (Miralax (For Daily Use) -) 17 gm GT DAILY [facility] Last Admin: 05/31/19 10:36 Dose: 17 grams Scopolamine HBr (Transderm-Scop -) 1 patch TD Q72H [facility] Last Admin: 06/01/19 05:27 Dose: 1 patch Senna (Senna Oral Solution -) 8.8 mg GT HS [facility] Last Admin: 05/31/19 21:42 Dose: 8.8 mg Thiamine HCl (Vitamin B1 Injection -) 200 mg IVPB DAILY [facility] Last Admin: 05/31/19 09:02 Dose: 200 mg - Objective Vital Signs: Vital Signs Temperature 98.9 F 05/31/19 22:00 Pulse Rate 77 06/01/19 08:12 Respiratory Rate 18 06/01/19 08:12 Blood Pressure 104/66 06/01/19 08:00 O2 Sat by Pulse Oximetry (%) 98 06/01/19 08:12 Neck: Yes: Supple Cardiovascular: Yes: Regular Rate and Rhythm, S1, S2 Respiratory: Yes: Mechanically Ventilated Gastrointestinal: Yes: Normal Bowel Sounds, Soft. No: Tenderness Edema: No Labs: CBC, BMP 06/01/19 06:00 06/01/19 06:00 Problem List - Problems (1) Acute decompensated heart failure Code(s): I50.9 - HEART FAILURE, UNSPECIFIED (2) Acute hypercapnic respiratory failure due to obstructive sleep apnea Code(s): J96.02 - ACUTE RESPIRATORY FAILURE WITH HYPERCAPNIA; G47.33 - OBSTRUCTIVE SLEEP APNEA (ADULT) (PEDIATRIC) (3) Acute renal failure Code(s): N17.9 - ACUTE KIDNEY FAILURE, UNSPECIFIED Qualifiers: Acute renal failure type: unspecified Qualified Code(s): N17.9 - Acute kidney failure, unspecified (4) Atrial fibrillation and flutter Code(s): I48.91 - UNSPECIFIED ATRIAL FIBRILLATION; I48.92 - UNSPECIFIED ATRIAL FLUTTER (5) Hyperkalemia Code(s): E87.5 - HYPERKALEMIA (6) Pneumonia Code(s): J18.9 - PNEUMONIA, UNSPECIFIED ORGANISM Qualifiers: Pneumonia type: due to unspecified organism (7) Sarcoidosis of other sites Code(s): D86.89 - SARCOIDOSIS OF OTHER SITES (8) Septic shock Code(s): A41.9 - SEPSIS, UNSPECIFIED ORGANISM; R65.21 - SEVERE SEPSIS WITH SEPTIC SHOCK (9) Type 2 diabetes mellitus Code(s): E11.9 - TYPE 2 DIABETES MELLITUS WITHOUT COMPLICATIONS Qualifiers: Diabetes mellitus mcc insulin use: without rodent exterminator use Diabetes mellitus complication detail: with chronic kidney disease Chronic kidney disease stage: stage 2 (mild) Assessment/Plan 1. Acute hypoxic and hypercapneic respiratory failure currently on mechanical ventilation via tracheostomy 2. Post pneumonia, septic shock, Gram Positive Bacteremia and ARDS 3. Sarcoidosis confirmed by skin biopsy 4. OSAS nonadherent to CPAP 5. Paroxysmal Aflutter/Afib 6. Acute on chronic diastolic heart failure 7. Acute on CKD with hyperkalemia 8. Type 2 DM 9. 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 Trial of IVIG possible plasmapharesis, bronchodilator and enteral feeds 2. Vent management per ICU team 3. Rate-control with uptitrate oral Lopressor 25 mg TID and Cardizem 30 mg TID as hemodynamics tolerate, IV Cardizem and Lopressor as needed and continue Eliquis 5 mg BID 4. Lasix 40 QD (NGT) as needed with monitor renal function and electrolytes 5. Continue lisinopril 10 mg QD and Lipitor 40 QD 6. Follow up with Dr. Genaro Davila (cardiology at [place]) as outpatient. Consider cardiac PET or MRI to exclude cardiac involvement in sarcoidosis as outpatient Shin Cutler MD
[2019-06-01] MEDS: FUROSEMIDE 40 MG/5 ML UNIT-DOSE CUP NGT SCH (10:12)
[2019-06-01] MEDS: APIXABAN 5 MG TABLET PEG SCH ×2 (10:12→22:00)
[2019-06-01] MEDS: FERROUS SO4 300 MG/5 ML ORAL SOLN UNIT DOSE CUPS NGT SCH (10:12)
[2019-06-01] MEDS: THIAMINE HCL 200 MG/2 ML VIAL IVPB SCH (10:12)
[2019-06-01] MEDS: LISINOPRIL 10 MG TABLET (FP) NGT SCH (10:12)
[2019-06-01] MEDS: PANTOPRAZOLE 40 MG TABLET PO SCH (10:12)
[2019-06-01] MEDS: POLYETHYLENE GLYCOL 3350 119 GM BTL GT SCH (10:27)
--- NOTE | 2019-06-01 15:31 | PN ---
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 (short form) - Note 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: covering dr billings Problem 1. RYNE 2. hyperkalemia 3. resp failure requiring intubation 4. resp acidosis 5. dm 6. hx htn 7. sleep apnea 8. obesity 9. hx non compliance 10. chf 11. sarcoid 12. volume overload 13. hypernatremia Current Medications Acetaminophen (Tylenol Oral Solution -) 650 mg GT Q6H PRN PRN Reason: Fever Or Pain Amino Acids (Prosource No Carb Liquid Pkt) 30 ml PO BID@0800,1730 [facility] Last Admin: 06/01/19 08:25 Dose: 30 ml Apixaban (Eliquis -) 5 mg PEG BID [facility] Last Admin: 06/01/19 10:12 Dose: 5 mg Atorvastatin Calcium (Lipitor -) 40 mg PO HS [facility] Last Admin: 05/31/19 21:42 Dose: 40 mg Diltiazem HCl (Cardizem -) 30 mg PO TID [facility] Last Admin: 06/01/19 14:16 Dose: 30 mg Docusate Sodium (Colace Liquid -) 200 mg GT DAILY PRN PRN Reason: CONSTIPATION Last Admin: 05/29/19 11:29 Dose: 200 mg Ferrous Sulfate (Feosol) 300 mg NGT BID [facility] Last Admin: 06/01/19 10:12 Dose: 300 mg Furosemide (Lasix Oral Solution -) 40 mg NGT DAILY [facility] Last Admin: 06/01/19 10:12 Dose: 40 mg Insulin Aspart (Novolog Vial Sliding Scale -) 1 vial SQ ACHS [facility]; Protocol Last Admin: 06/01/19 11:22 Dose: 3 units Insulin Detemir (Levemir Vial) 18 units SQ AM [facility] Last Admin: 06/01/19 06:31 Dose: 18 units Lisinopril (Prinivil) 10 mg NGT DAILY [facility] Last Admin: 06/01/19 10:12 Dose: 10 mg Metoprolol Tartrate (Lopressor -) 25 mg GT TID [facility] Last Admin: 06/01/19 14:16 Dose: 25 mg Nystatin (Nystatin Oral Suspension -) 500,000 units PO Q6HPO [facility] Last Admin: 06/01/19 11:31 Dose: 500,000 units Pantoprazole Sodium (Protonix -) 40 mg PO DAILY [facility] Last Admin: 06/01/19 10:12 Dose: 40 mg Polyethylene Glycol (Miralax (For Daily Use) -) 17 gm GT DAILY [facility] Last Admin: 06/01/19 10:27 Dose: 17 grams Scopolamine HBr (Transderm-Scop -) 1 patch TD Q72H [facility] Last Admin: 06/01/19 05:27 Dose: 1 patch Senna (Senna Oral Solution -) 8.8 mg GT HS [facility] Last Admin: 05/31/19 21:42 Dose: 8.8 mg Thiamine HCl (Vitamin B1 Injection -) 200 mg IVPB DAILY [facility] Last Admin: 06/01/19 10:12 Dose: 200 mg Last Vital Signs Temp Pulse Resp BP Pulse Ox 97.8 F 71 29 H 121/66 100 06/01/19 10:00 06/01/19 12:00 06/01/19 12:08 06/01/19 12:00 06/01/19 12:08 Intake & Output 05/31/19 06/01/19 06/01/19 23:59 07:59 15:59 Intake Total 1190 646 Output Total 500 200 Balance 690 446 Weight 257 lb 4.471 oz in nad Lungs clear Heart reg Abd soft nontender Ext no edema CBC, BMP 06/01/19 06:00 06/01/19 06:00 CBC, BMP 05/31/19 05:48 05/31/19 05:48 resp failure on vent via trach s/p ryne prerenal azotemia Plan - cont lasix - replace mag - monitor lytes closely - vent support - cont feeds
[2019-06-01] MEDS: ATORVASTATIN CA 40 MG TABLET (FP) PO SCH (22:00)
[2019-06-01] MEDS: SENNOSIDES 8.8 MG/5 ML BULK BOTTLE GT SCH (22:09)
[2019-06-02] MEDS: NYSTATIN 500,000 UNITS/5 ML SUSPENSION PO SCH ×5 (00:12→23:30)
[2019-06-02] MEDS: FERROUS SO4 300 MG/5 ML ORAL SOLN UNIT DOSE CUPS NGT SCH ×3 (00:12→23:17)
[2019-06-02] MEDS ORDERED: DOCUSATE NA 100 MG/10 ML UNIT-DOSE CUPS GT PRN (00:22)
[2019-06-02] MEDS ORDERED: ACETAMINOPHEN 650 MG/20.3 ML ORAL SOLUTION (CUPS) GT PRN (00:22)
[2019-06-02] MEDS: METOPROLOL TARTRATE 25 MG TABLET (FP) GT SCH ×3 (06:52→23:16)
[2019-06-02] MEDS: INSULIN SLIDING SCALE (NOVOLOG) 1 VIAL SQ SCH ×4 (06:53→23:30)
[2019-06-02] MEDS: dilTIAZem HCL 30 MG TABLET (FP) PO SCH ×3 (06:53→23:17)
[2019-06-02] MEDS: INSULIN (LEVEMIR) 100 UNITS/ML UNITS SQ SCH (06:54)
--- NOTE | 2019-06-02 07:27 | PN ---
Physical Exam: SUBJECTIVE: Patient seen and examined at bedside. No acute events. OBJECTIVE: Vital Signs Period Temp Pulse Resp BP Sys/Kenyon Pulse Ox Last 24 Hr 97.8 F-98.9 F 64-119 15-29 104-121/60-69 94-100 GENERAL: The patient is awake, alert, and fully oriented, in no acute distress. LUNGS: Breath sounds equal, clear to auscultation bilaterally, no wheezes, no crackles, no accessory muscle use. HEART: Regular rate and rhythm, S1, S2 without murmur, rub or gallop. ABDOMEN: Soft, nontender, nondistended. EXTREMITIES: 2+ pulses, warm, well-perfused, no edema. NEUROLOGICAL: improving every day, moving all extremities PSYCH: Normal mood, normal affect. SKIN: Warm, dry, no rashes or lesions noted Laboratory Results - last 24 hr 06/01/19 06/01/19 06/01/19 06:00 11:16 17:48 WBC 3.3 L RBC 3.89 L Hgb 10.0 L Hct 31.7 L MCV 81.4 MCH 25.6 L MCHC 31.5 L RDW 19.7 H Plt Count 148 MPV 9.1 POC Glucometer 169 160 06/01/19 06/02/19 22:54 06:51 WBC RBC Hgb Hct MCV MCH MCHC RDW Plt Count MPV POC Glucometer 125 121 Active Medications Generic Name Dose Route Start Last Admin Trade Name Freq PRN Reason Stop Dose Admin Acetaminophen 650 mg 06/02/19 00:22 Tylenol Oral Solution - GT Q6H PRN Fever Or Pain Amino Acids 30 ml 06/02/19 08:00 Prosource No Carb Liquid Pkt PO BID@0800,1730 [facility] Apixaban 5 mg 06/02/19 10:00 Eliquis - PEG BID ELISSA Atorvastatin Calcium 40 mg 06/02/19 22:00 Lipitor - PO HS ELISSA Diltiazem HCl 30 mg 06/02/19 06:00 06/02/19 06:53 Cardizem - PO 30 mg TID ELISSA Administration Docusate Sodium 200 mg 06/02/19 00:22 Colace Liquid - GT DAILY PRN CONSTIPATION Ferrous Sulfate 300 mg 06/02/19 10:00 Feosol NGT BID ELISSA Furosemide 40 mg 06/02/19 10:00 Lasix Oral Solution - NGT DAILY [facility] Insulin Aspart 1 vial 06/02/19 07:00 06/02/19 06:53 Novolog Vial Sliding Scale - SQ Not Given ACHS [facility] Protocol Insulin Detemir 18 units 06/02/19 07:00 06/02/19 06:54 Levemir Vial SQ Not Given AM [facility] Lisinopril 10 mg 06/02/19 10:00 Prinivil NGT DAILY [facility] Metoprolol Tartrate 25 mg 06/02/19 06:00 06/02/19 06:52 Lopressor - GT 25 mg TID ELISSA Administration Nystatin 500,000 units 06/02/19 06:00 06/02/19 06:52 Nystatin Oral Suspension - PO 500,000 units Q6HPO ELISSA Administration Pantoprazole Sodium 40 mg 06/02/19 10:00 Protonix - PO DAILY ELISSA Polyethylene Glycol 17 gm 06/02/19 10:00 Miralax (For Daily Use) - GT DAILY ELISSA Scopolamine HBr 1 patch 06/04/19 10:00 Transderm-Scop - TD Q72H ELISSA Senna 8.8 mg 06/02/19 22:00 Senna Oral Solution - GT HS ELISSA Thiamine HCl 200 mg 06/02/19 10:00 Vitamin B1 Injection - IVPB DAILY [facility] ASSESSMENT/PLAN: 53 y/o/m with PMHx of DM2, HFpEF(last EF: 45-50%), 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 #Acute Hypoxic and Hypercapneic Respiratory Failure; 2/2 Acute diastolic CHF vs. PNA -Intubated upon admission, extubated 05/09; then re-intubated 05/13/19; s/p trach . - started tube feeds and continuing IVIg per neuro recs (Dr. Fuentes). -c/w AC - transferred to floors - continue monitoring off abx - Nystatin oral suspension -Cont vent support and wean FiO2 as tolerated. Trial of extubation. - pt status on exam is improving on IVIG. #Cardiogenic Shock; 2/2 Acute Diastolic CHF vs. Septic Shock. Unclear etiology. -Resolved -ECHO- EF of 55-60%, no significant abnormalities noted, no vegetations. -Per cardio, recommend cardiac MRI as outpatient to assess sarcoidosis involvement. #Altered mental status and weakness; 2/2 ? Critical care induced myopathy -Neuro Consulted (Dr. Pleitez), Dr. Fuentes household personal assistant coverage LP- showing elevated wbc with no wbc's indicating high suspicion for guillian lizabeth syndrome. Pt subsequently started on IVIg today. -Bedside EMG shows no evidence of myopathy, but cannot rule out myopathic process. -EEG(05/16/19): abnl EEG, nonspecific finding of diffuse encephalopathy - c/w IVIG 5th dose tomorrow #Atrial Flutter w/ RVR -Cont with Cardizem 30 TID GT and Lopressor 25 TID GT (Dilt drip, Digoxin previously discontinued) -Heparin drip on hold initially due to bleeding around trach site, G-tube placed today. #RYNE on CKD w/ hyperkalemia; Improved Cr, K 3.8 -Nephro consulted -Cont Lisinopril 10mg QD given his improved renal function #DM2 -BGM/ISS ACHS -Inc Levemir to 18 U HS given glucose has been in 200's-300's after G tube placement and initiation of feeds. #FEN -free water fluid via NG tube -monitor and replete lytes as needed -Nephro feeds #Prophylaxis -Eliquis 5 BID -Protonix 40 daily Dispo: Pt will be monitored with IVIG therapy and then will assess need for plasmapheresis vs transfer. Visit type - Emergency Visit Emergency Visit: Yes ED Registration Date: 04/30/19 Care time: The patient presented to the Emergency Department on the above date and was hospitalized for further evaluation of their emergent condition. - New Patient This patient is new to me today: No - Critical Care Critical Care patient: No - Discharge Referral Referred to [facility] Med P.C.: No ATTENDING PHYSICIAN STATEMENT I saw and evaluated the patient. I reviewed the resident's note and discussed the case with the resident. I agree with the resident's findings and plan as documented. SUBJECTIVE: OBJECTIVE: ASSESSMENT AND PLAN:
[2019-06-02 09:30] LABS: ALBUMIN 2.1 g/dl (3.4-5.0); BILIRUBIN,TOTAL 0.5 mg/dL (0.2-1); BLOOD UREA NITROGEN 29.5 mg/dL (7-18); CALCIUM 8.3 mg/dL (8.5-10.1); MAGNESIUM 1.9 mg/dL (1.8-2.4)
[2019-06-02] MEDS ORDERED: THIAMINE HCL 200 MG/2 ML VIAL IVPB SCH (10:00)
[2019-06-02] MEDS ORDERED: PT OWN MED DRAWER 7, Y5N ONE ×2 (11:03→23:08)
[2019-06-02] MEDS: LISINOPRIL 10 MG TABLET (FP) NGT SCH (11:09)
[2019-06-02] MEDS: APIXABAN 5 MG TABLET PEG SCH ×2 (11:10→23:15)
[2019-06-02] MEDS: AMINO ACIDS/PROTEIN HYDROLYS 30 ML LIQUID.PKT PO SCH ×2 (11:10→17:07)
[2019-06-02] MEDS: PANTOPRAZOLE 40 MG TABLET PO SCH (11:10)
[2019-06-02] MEDS: FUROSEMIDE 40 MG/5 ML UNIT-DOSE CUP NGT SCH (11:11)
[2019-06-02] MEDS: POLYETHYLENE GLYCOL 3350 119 GM BTL GT SCH (11:13)
--- NOTE | 2019-06-02 12:04 | PN ---
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 (short form) - Note 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: PULMONARY Vented, awake. No fevers recorded. Vital Signs Period Temp Pulse Resp BP Sys/Kenyon Pulse Ox Last 24 Hr 98.1 F-98.9 F 64-119 18-29 101-114/60-69 94-100 Gen: vented, awake Heart: irregular Lung: scattered rhonchi Abd: soft, nontender Ext: trace edema CBC, BMP 06/01/19 06:00 06/02/19 07:22 Active Medications Acetaminophen (Tylenol Oral Solution -) 650 mg GT Q6H PRN PRN Reason: Fever Or Pain Amino Acids (Prosource No Carb Liquid Pkt) 30 ml PO BID@0800,1730 [facility] Last Admin: 06/02/19 11:10 Dose: 30 ml Apixaban (Eliquis -) 5 mg PEG BID [facility] Last Admin: 06/02/19 11:10 Dose: 5 mg Atorvastatin Calcium (Lipitor -) 40 mg PO HS [facility] Diltiazem HCl (Cardizem -) 30 mg PO TID [facility] Last Admin: 06/02/19 06:53 Dose: 30 mg Docusate Sodium (Colace Liquid -) 200 mg GT DAILY PRN PRN Reason: CONSTIPATION Ferrous Sulfate (Feosol) 300 mg NGT BID [facility] Last Admin: 06/02/19 11:10 Dose: 300 mg Furosemide (Lasix Oral Solution -) 40 mg NGT DAILY [facility] Last Admin: 06/02/19 11:11 Dose: 40 mg Insulin Aspart (Novolog Vial Sliding Scale -) 1 vial SQ ACHS [facility]; Protocol Last Admin: 06/02/19 11:37 Dose: Not Given Insulin Detemir (Levemir Vial) 18 units SQ AM [facility] Last Admin: 06/02/19 06:54 Dose: Not Given Lisinopril (Prinivil) 10 mg NGT DAILY [facility] Last Admin: 06/02/19 11:09 Dose: 10 mg Metoprolol Tartrate (Lopressor -) 25 mg GT TID [facility] Last Admin: 06/02/19 06:52 Dose: 25 mg Nystatin (Nystatin Oral Suspension -) 500,000 units PO Q6HPO [facility] Last Admin: 06/02/19 11:10 Dose: 500,000 units Pantoprazole Sodium (Protonix -) 40 mg PO DAILY [facility] Last Admin: 06/02/19 11:10 Dose: 40 mg Polyethylene Glycol (Miralax (For Daily Use) -) 17 gm GT DAILY [facility] Last Admin: 06/02/19 11:13 Dose: 17 grams Scopolamine HBr (Transderm-Scop -) 1 patch TD Q72H [facility] Senna (Senna Oral Solution -) 8.8 mg GT HS [facility] Thiamine HCl (Vitamin B1 Injection -) 200 mg IVPB DAILY [facility] Last Admin: 06/02/19 11:10 Dose: 200 mg A/P Acute Hypoxic and Hypercapneic Respiratory Failure s/p tracheostomy Pneumonia Gram Positive Bacteremia Septic Shock resolved Lactic Acidosis resolved ARDS resolved Paroxysmal Atrial Fluter with RVR Acute on Chronic Diastolic Heart Failure Acute on Chronic Renal Failure r/o Guillian Ronks Syndrome DM Anemia Sarcoidosis - s/p IVIG - completed antibiotics - rate control - continue anticoagulation - continue lasix - monitor urine output, creatinine - spontaneous breathing trials as tolerated - enteral feeds - DVT/GI prophylaxis
--- NOTE | 2019-06-02 12:56 | PN ---
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, Physician History of Present Illness: s/p tracheostomy resting on vent, PEG, tolerating PMV trials. Aflutter with improved rate response. 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 Strength improving. - Current Medication List Current Medications: Active Medications Acetaminophen (Tylenol Oral Solution -) 650 mg GT Q6H PRN PRN Reason: Fever Or Pain Amino Acids (Prosource No Carb Liquid Pkt) 30 ml PO BID@0800,1730 [facility] Last Admin: 06/02/19 11:10 Dose: 30 ml Apixaban (Eliquis -) 5 mg PEG BID [facility] Last Admin: 06/02/19 11:10 Dose: 5 mg Atorvastatin Calcium (Lipitor -) 40 mg PO HS [facility] Diltiazem HCl (Cardizem -) 30 mg PO TID [facility] Last Admin: 06/02/19 06:53 Dose: 30 mg Docusate Sodium (Colace Liquid -) 200 mg GT DAILY PRN PRN Reason: CONSTIPATION Ferrous Sulfate (Feosol) 300 mg NGT BID [facility] Last Admin: 06/02/19 11:10 Dose: 300 mg Furosemide (Lasix Oral Solution -) 40 mg NGT DAILY [facility] Last Admin: 06/02/19 11:11 Dose: 40 mg Insulin Aspart (Novolog Vial Sliding Scale -) 1 vial SQ ACHS [facility]; Protocol Last Admin: 06/02/19 11:37 Dose: Not Given Insulin Detemir (Levemir Vial) 18 units SQ AM [facility] Last Admin: 06/02/19 06:54 Dose: Not Given Lisinopril (Prinivil) 10 mg NGT DAILY [facility] Last Admin: 06/02/19 11:09 Dose: 10 mg Metoprolol Tartrate (Lopressor -) 25 mg GT TID [facility] Last Admin: 06/02/19 06:52 Dose: 25 mg Nystatin (Nystatin Oral Suspension -) 500,000 units PO Q6HPO [facility] Last Admin: 06/02/19 11:10 Dose: 500,000 units Pantoprazole Sodium (Protonix -) 40 mg PO DAILY [facility] Last Admin: 06/02/19 11:10 Dose: 40 mg Polyethylene Glycol (Miralax (For Daily Use) -) 17 gm GT DAILY [facility] Last Admin: 06/02/19 11:13 Dose: 17 grams Scopolamine HBr (Transderm-Scop -) 1 patch TD Q72H [facility] Senna (Senna Oral Solution -) 8.8 mg GT HS [facility] Thiamine HCl (Vitamin B1 Injection -) 200 mg IVPB DAILY [facility] Last Admin: 06/02/19 11:10 Dose: 200 mg - Objective Vital Signs: Vital Signs Temperature 98.2 F 06/02/19 11:32 Pulse Rate 90 06/02/19 11:32 Respiratory Rate 18 06/02/19 12:34 Blood Pressure 101/67 06/02/19 11:32 O2 Sat by Pulse Oximetry (%) 100 06/02/19 04:10 Constitutional: Yes: No Distress, Calm Neck: Yes: Other (Tracheostomy) Respiratory: Yes: Diminished, Mechanically Ventilated, Rhonchi Gastrointestinal: Yes: Normal Bowel Sounds, Soft, Abdomen, Obese, Other (PEG in place) Edema: No Labs: CBC, BMP 06/01/19 06:00 06/02/19 07:22 INR, PTT INR 1.05 (0.83-1.09) 05/24/19 06:00 Problem List - Problems (1) Pneumonia Code(s): J18.9 - PNEUMONIA, UNSPECIFIED ORGANISM Qualifiers: Pneumonia type: due to unspecified organism (2) Acute hypercapnic respiratory failure due to obstructive sleep apnea Code(s): J96.02 - ACUTE RESPIRATORY FAILURE WITH HYPERCAPNIA; G47.33 - OBSTRUCTIVE SLEEP APNEA (ADULT) (PEDIATRIC) (3) Acute decompensated heart failure Code(s): I50.9 - HEART FAILURE, UNSPECIFIED (4) Acute renal failure Code(s): N17.9 - ACUTE KIDNEY FAILURE, UNSPECIFIED Qualifiers: Acute renal failure type: unspecified Qualified Code(s): N17.9 - Acute kidney failure, unspecified (5) Sarcoidosis of other sites Code(s): D86.89 - SARCOIDOSIS OF OTHER SITES (6) Type 2 diabetes mellitus Code(s): E11.9 - TYPE 2 DIABETES MELLITUS WITHOUT COMPLICATIONS Qualifiers: Diabetes mellitus meterman insulin use: without meterman use Diabetes mellitus complication detail: with chronic kidney disease Chronic kidney disease stage: stage 2 (mild) (7) Atrial fibrillation and flutter Code(s): I48.91 - UNSPECIFIED ATRIAL FIBRILLATION; I48.92 - UNSPECIFIED ATRIAL FLUTTER (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 Acute hypoxic and hypercapneic respiratory failure currently on mechanical ventilation via tracheostomy 2. Post pneumonia, septic shock, Gram Positive Bacteremia and ARDS 3. Sarcoidosis confirmed by skin biopsy 4. OSAS nonadherent to CPAP 5. Paroxysmal Aflutter/Afib 6. Acute on chronic diastolic heart failure 7. Acute on CKD with hyperkalemia 8. Type 2 DM 9. 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 s/p trial of IVIG possible plasmapharesis, bronchodilator and enteral feeds 2. Vent management, SBT, PMV trials as tolerated per ICU team 3. Rate-control with uptitrate oral Lopressor 25 mg TID and Cardizem 30 mg TID as hemodynamics tolerate, IV Cardizem and Lopressor as needed and continue Eliquis 5 mg BID 4. Lasix 40 QD (NGT) as needed with monitor renal function and electrolytes 5. Continue lisinopril 10 mg QD and Lipitor 40 QD 6. Follow up with Dr. Genaro Davila (cardiology at [place]) as outpatient. Consider cardiac PET or MRI to exclude cardiac involvement in sarcoidosis as outpatient
--- NOTE | 2019-06-02 13:54 | PN ---
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, [employer] - Note 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: Pt mouthing words to staff. Getting stronger, moving extremities more. Pt tolerated PMV last on 05/30, per EMR. Pt has good potential to use for communication, and to expedite weaning from ventilator. Suggest use PMV daily, ideally for short periods (15 min), a few times a day, increasing time as tolerated..
--- NOTE | 2019-06-02 16:13 | PN ---
Physical Exam: SUBJECTIVE: Patient seen and examined. No acute events. Bradycardia overnight but not new. OBJECTIVE: Vital Signs Period Temp Pulse Resp BP Sys/Kenyon Pulse Ox Last 24 Hr 98.1 F-98.9 F 64-119 18-20 101-114/60-69 94-100 GENERAL: The patient is awake, alert, and fully oriented, in no acute distress. LUNGS: Breath sounds equal, clear to auscultation bilaterally, no wheezes, no crackles, no accessory muscle use. HEART: Regular rate and rhythm, S1, S2 without murmur, rub or gallop. ABDOMEN: Soft, nontender, nondistended. EXTREMITIES: 2+ pulses, warm, well-perfused, no edema. NEUROLOGICAL: improving every day, moving all extremities PSYCH: Normal mood, normal affect. SKIN: Warm, dry, no rashes or lesions noted Laboratory Results - last 24 hr 05/26/19 06/01/19 06/01/19 15:15 17:48 22:54 Sodium Potassium Chloride Carbon Dioxide Anion Gap BUN Creatinine Est GFR (CKD-EPI)AfAm Est GFR (CKD-EPI)NonAf POC Glucometer 160 125 Random Glucose Calcium Magnesium Total Bilirubin AST ALT Alkaline Phosphatase Total Protein Albumin Ser Oligoclonal Bands 06/02/19 06/02/19 06/02/19 06:51 07:22 11:35 Sodium 137 Potassium 4.0 Chloride 102 Carbon Dioxide 26 Anion Gap 8 BUN 29.5 H Creatinine 1.0 Est GFR (CKD-EPI)AfAm 100.55 Est GFR (CKD-EPI)NonAf 86.76 POC Glucometer 121 140 Random Glucose 117 H Calcium 8.3 L Magnesium 1.9 Total Bilirubin 0.5 AST 26 ALT 23 Alkaline Phosphatase 117 Total Protein 7.0 Albumin 2.1 L Ser Oligoclonal Bands Active Medications Generic Name Dose Route Start Last Admin Trade Name Freq PRN Reason Stop Dose Admin Acetaminophen 650 mg 06/02/19 00:22 Tylenol Oral Solution - GT Q6H PRN Fever Or Pain Amino Acids 30 ml 06/02/19 08:00 06/02/19 11:10 Prosource No Carb Liquid Pkt PO 30 ml BID@0800,1730 ELISSA Administration Apixaban 5 mg 06/02/19 10:00 06/02/19 11:10 Eliquis - PEG 5 mg BID ELISSA Administration Atorvastatin Calcium 40 mg 06/02/19 22:00 Lipitor - PO HS ELISSA Diltiazem HCl 30 mg 06/02/19 06:00 06/02/19 14:40 Cardizem - PO 30 mg TID ELISSA Administration Docusate Sodium 200 mg 06/02/19 00:22 Colace Liquid - GT DAILY PRN CONSTIPATION Ferrous Sulfate 300 mg 06/02/19 10:00 06/02/19 11:10 Feosol NGT 300 mg BID ELISSA Administration Furosemide 40 mg 06/02/19 10:00 06/02/19 11:11 Lasix Oral Solution - NGT 40 mg DAILY ELISSA Administration Insulin Aspart 1 vial 06/02/19 07:00 06/02/19 11:37 Novolog Vial Sliding Scale - SQ Not Given ACHS [facility] Protocol Insulin Detemir 18 units 06/02/19 07:00 06/02/19 06:54 Levemir Vial SQ Not Given AM [facility] Lisinopril 10 mg 06/02/19 10:00 06/02/19 11:09 Prinivil NGT 10 mg DAILY ELISSA Administration Metoprolol Tartrate 25 mg 06/02/19 06:00 06/02/19 14:38 Lopressor - GT 25 mg TID ELISSA Administration Nystatin 500,000 units 06/02/19 06:00 06/02/19 11:10 Nystatin Oral Suspension - PO 500,000 units Q6HPO ELISSA Administration Pantoprazole Sodium 40 mg 06/02/19 10:00 06/02/19 11:10 Protonix - PO 40 mg DAILY ELISSA Administration Polyethylene Glycol 17 gm 06/02/19 10:00 06/02/19 11:13 Miralax (For Daily Use) - GT 17 grams DAILY ELISSA Administration Scopolamine HBr 1 patch 06/04/19 10:00 Transderm-Scop - TD Q72H ELISSA Senna 8.8 mg 06/02/19 22:00 Senna Oral Solution - GT HS [facility] Thiamine HCl 200 mg 06/02/19 10:00 06/02/19 11:10 Vitamin B1 Injection - IVPB 200 mg DAILY ELISSA Administration ASSESSMENT/PLAN: 53 y/o/m with PMHx of DM2, HFpEF(last EF: 45-50%), 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 #Acute Hypoxic and Hypercapneic Respiratory Failure; 2/2 Acute diastolic CHF vs. PNA -Intubated upon admission, extubated 05/09; then re-intubated 05/13/19; s/p trach . - started tube feeds and continuing IVIg per neuro recs (Dr. Fuentes). -c/w AC - transferred to floors - continue monitoring off abx -Cont vent support and wean FiO2 as tolerated. daily trials of extubation. - pt status on exam is improving on IVIG. #Cardiogenic Shock; 2/2 Acute Diastolic CHF vs. Septic Shock. Unclear etiology. -Resolved -ECHO- EF of 55-60%, no significant abnormalities noted, no vegetations. -Per cardio, recommend cardiac MRI as outpatient to assess sarcoidosis involvement. #Altered mental status and weakness; 2/2 ? Critical care induced myopathy -Neuro Consulted (Dr. Pleitez), Dr. Fuentes operations tech coverage LP- showing elevated wbc with no wbc's indicating high suspicion for guillian lizabeth syndrome. Pt subsequently started on IVIg today. -Bedside EMG shows no evidence of myopathy, but cannot rule out myopathic process. -EEG(05/16/19): abnl EEG, nonspecific finding of diffuse encephalopathy - c/w IVIG 5th dose tomorrow #Atrial Flutter w/ RVR -Cont with Cardizem 30 TID GT and Lopressor 25 TID GT (Dilt drip, Digoxin previously discontinued) -Heparin drip on hold initially due to bleeding around trach site, G-tube placed today. #RYNE on CKD w/ hyperkalemia; Improved Cr, K 3.8 -Nephro consulted -Cont Lisinopril 10mg QD given his improved renal function #DM2 -BGM/ISS ACHS -Inc Levemir to 18 U AM given glucose has been in 200's-300's after G tube placement and initiation of feeds. #FEN -free water fluid via NG tube -monitor and replete lytes as needed -Nephro feeds #Prophylaxis -Eliquis 5 BID -Protonix 40 daily Dispo: Pt will be monitored with IVIG therapy and will be transferred to LT[facility] pending fam and SW agree on place. Fam refusing [place] places. Visit type - Emergency Visit Emergency Visit: Yes ED Registration Date: 04/30/19 Care time: The patient presented to the Emergency Department on the above date and was hospitalized for further evaluation of their emergent condition. - New Patient This patient is new to me today: No - Critical Care Critical Care patient: No - Discharge Referral Referred to [facility] Med P.C.: No ATTENDING PHYSICIAN STATEMENT I saw and evaluated the patient. I reviewed the resident's note and discussed the case with the resident. I agree with the resident's findings and plan as documented. SUBJECTIVE: OBJECTIVE: ASSESSMENT AND PLAN:
--- NOTE | 2019-06-02 18:38 | PN ---
Teaching Attending Note Name of Resident: Magnus Lloyd ATTENDING PHYSICIAN STATEMENT I saw and evaluated the patient. I reviewed the resident's note and discussed the case with the resident. I agree with the resident's findings and plan as documented. SUBJECTIVE: Patient is awake and appears comfortable. He denies pain. OBJECTIVE: Vital Signs Period Temp Pulse Resp BP Sys/[place] Pulse Ox Last 24 Hr 98.2 F-98.9 F 64-119 18-20 101-114/60-68 94-100 GENERAL: No distress, on vent via trach HEAR: S1S2, RRR LUNGS: Clear ABDOMEN: Obese, soft, non-tender, non-distended, normal BS EXTREMITIES: No edema Laboratory Results - last 24 hr 05/26/19 06/01/19 06/02/19 15:15 22:54 06:51 Sodium Potassium Chloride Carbon Dioxide Anion Gap BUN Creatinine Est GFR (CKD-EPI)AfAm Est GFR (CKD-EPI)NonAf POC Glucometer 125 121 Random Glucose Calcium Magnesium Total Bilirubin AST ALT Alkaline Phosphatase Total Protein Albumin Ser Oligoclonal Bands 0 06/02/19 06/02/19 06/02/19 07:22 11:35 17:04 Sodium 137 Potassium 4.0 Chloride 102 Carbon Dioxide 26 Anion Gap 8 BUN 29.5 H Creatinine 1.0 Est GFR (CKD-EPI)AfAm 100.55 Est GFR (CKD-EPI)NonAf 86.76 POC Glucometer 140 147 Random Glucose 117 H Calcium 8.3 L Magnesium 1.9 Total Bilirubin 0.5 AST 26 ALT 23 Alkaline Phosphatase 117 Total Protein 7.0 Albumin 2.1 L Ser Oligoclonal Bands Current Medications Generic Name Dose Route Start Last Admin Trade Name Freq PRN Reason Stop Dose Admin Acetaminophen 650 mg 06/02/19 00:22 Tylenol Oral Solution - GT Q6H PRN Fever Or Pain Amino Acids 30 ml 06/02/19 08:00 06/02/19 17:07 Prosource No Carb Liquid Pkt PO 30 ml BID@0800,1730 [facility]IS[facility] Administration Apixaban 5 mg 06/02/19 10:00 06/02/19 11:10 Eliquis - PEG 5 mg BID [facility] Administration Atorvastatin Calcium 40 mg 06/02/19 22:00 Lipitor - PO HS [facility] Diltiazem HCl 30 mg 06/02/19 06:00 06/02/19 14:40 Cardizem - PO 30 mg TID [facility] Administration Docusate Sodium 200 mg 06/02/19 00:22 Colace Liquid - GT DAILY PRN CONSTIPATION Ferrous Sulfate 300 mg 06/02/19 10:00 06/02/19 11:10 Feosol NGT 300 mg BID [facility]ISSA Administration Furosemide 40 mg 06/02/19 10:00 06/02/19 11:11 Lasix Oral Solution - NGT 40 mg DAILY [facility] Administration Insulin Aspart 1 vial 06/02/19 07:00 06/02/19 17:06 Novolog Vial Sliding Scale - SQ Not Given ACHS [facility] Protocol Insulin Detemir 18 units 06/02/19 07:00 06/02/19 06:54 Levemir Vial SQ Not Given AM [facility] Lisinopril 10 mg 06/02/19 10:00 06/02/19 11:09 Prinivil NGT 10 mg DAILY [facility] Administration Metoprolol Tartrate 25 mg 06/02/19 06:00 06/02/19 14:38 Lopressor - GT 25 mg TID [facility] Administration Nystatin 500,000 units 06/02/19 06:00 06/02/19 17:07 Nystatin Oral Suspension - PO 500,000 units Q6HPO [facility] Administration Pantoprazole Sodium 40 mg 06/02/19 10:00 06/02/19 11:10 Protonix - PO 40 mg DAILY [facility] Administration Polyethylene Glycol 17 gm 06/02/19 10:00 06/02/19 11:13 Miralax (For Daily Use) - GT 17 grams DAILY [facility] Administration Scopolamine HBr 1 patch 06/04/19 10:00 Transderm-Scop - TD Q72H [facility] Senna 8.8 mg 06/02/19 22:00 Senna Oral Solution - GT HS [facility] Thiamine HCl 200 mg 06/03/19 10:00 Vitamin B1 - PO DAILY [facility] ASSESSMENT AND PLAN: This is a 53 year old man with a history of chronic diastolic heart failure, atrial fib/flutter, type 2 DM, EMMY, morbid obesity who presented to the ED with sudden onset of shortness of breath. 1. Acute hypoxic and hypercapneic respiratory failure - s/p tracheostomy - Vent weaning as per pulmonary 2. Septic shock secondary to pneumonia and Staph bacteremia - Resolved - Completed antibiotics 3. ARDS 4. Acute on chronic diastolic heart failure - Improved - Continue Lasix 5. Acute kidney injury - Resolved 6. Paroxysmal atrial fib/flutter - Continue Cardizem, Lopressor, Eliquis 7. 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 Sarcoidosis 9. Anemia - Hgb stable - Continue ferrous sulfate 10. Type 2 DM - Continue Levemir, Novolog sliding scale 11. Morbid obesity with BMI 42.5 12. EMMY 13. Nutrition - Continue Glucerna via PEG 14. Disposition - Plan for discharge to LTAC
--- NOTE | 2019-06-02 19:21 | PN ---
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, Physician History of Present Illness: Pt seen and examined at bedside. He is much more awake and interactive. - Current Medication List Current Medications: Active Medications Acetaminophen (Tylenol Oral Solution -) 650 mg GT Q6H PRN PRN Reason: Fever Or Pain Amino Acids (Prosource No Carb Liquid Pkt) 30 ml PO BID@0800,1730 [facility] Last Admin: 06/02/19 17:07 Dose: 30 ml Apixaban (Eliquis -) 5 mg PEG BID [facility] Last Admin: 06/02/19 11:10 Dose: 5 mg Atorvastatin Calcium (Lipitor -) 40 mg PO HS [facility] Diltiazem HCl (Cardizem -) 30 mg PO TID [facility] Last Admin: 06/02/19 14:40 Dose: 30 mg Docusate Sodium (Colace Liquid -) 200 mg GT DAILY PRN PRN Reason: CONSTIPATION Ferrous Sulfate (Feosol) 300 mg NGT BID [facility] Last Admin: 06/02/19 11:10 Dose: 300 mg Furosemide (Lasix Oral Solution -) 40 mg NGT DAILY [facility] Last Admin: 06/02/19 11:11 Dose: 40 mg Insulin Aspart (Novolog Vial Sliding Scale -) 1 vial SQ ACHS [facility]; Protocol Last Admin: 06/02/19 17:06 Dose: Not Given Insulin Detemir (Levemir Vial) 18 units SQ AM [facility] Last Admin: 06/02/19 06:54 Dose: Not Given Lisinopril (Prinivil) 10 mg NGT DAILY [facility] Last Admin: 06/02/19 11:09 Dose: 10 mg Metoprolol Tartrate (Lopressor -) 25 mg GT TID [facility] Last Admin: 06/02/19 14:38 Dose: 25 mg Nystatin (Nystatin Oral Suspension -) 500,000 units PO Q6HPO [facility] Last Admin: 06/02/19 17:07 Dose: 500,000 units Pantoprazole Sodium (Protonix -) 40 mg PO DAILY [facility] Last Admin: 06/02/19 11:10 Dose: 40 mg Polyethylene Glycol (Miralax (For Daily Use) -) 17 gm GT DAILY [facility] Last Admin: 06/02/19 11:13 Dose: 17 grams Scopolamine HBr (Transderm-Scop -) 1 patch TD Q72H [facility] Senna (Senna Oral Solution -) 8.8 mg GT HS [facility] Thiamine HCl (Vitamin B1 -) 200 mg PO DAILY [facility]ISSA - Objective Vital Signs: Vital Signs Temperature 97.7 F 06/02/19 18:00 Pulse Rate 74 06/02/19 18:00 Respiratory Rate 18 06/02/19 18:00 Blood Pressure 126/66 06/02/19 18:00 O2 Sat by Pulse Oximetry (%) 100 06/02/19 04:10 Constitutional: Yes: Calm Eyes: Yes: Conjunctiva Clear HENT: Yes: Atraumatic Neck: Yes: Other (trache) Cardiovascular: Yes: S1, S2 Respiratory: Yes: Other (trache) Gastrointestinal: Yes: Soft, Abdomen, Obese Genitourinary: Yes: Incontinence Edema: Yes Edema: LLE: 1+, RLE: 1+ Neurological: Yes: Oriented Labs: CBC, BMP 06/01/19 06:00 06/02/19 07:22 INR, PTT INR 1.05 (0.83-1.09) 05/24/19 06:00 Problem List - Problems (1) Acute decompensated heart failure Code(s): I50.9 - HEART FAILURE, UNSPECIFIED (2) Atrial fibrillation and flutter Code(s): I48.91 - UNSPECIFIED ATRIAL FIBRILLATION; I48.92 - UNSPECIFIED ATRIAL FLUTTER (3) Hyperkalemia Code(s): E87.5 - HYPERKALEMIA (4) Pneumonia Code(s): J18.9 - PNEUMONIA, UNSPECIFIED ORGANISM Qualifiers: Pneumonia type: due to unspecified organism (5) Sarcoidosis of other sites Code(s): D86.89 - SARCOIDOSIS OF OTHER SITES Assessment/Plan Current Medications Generic Name Dose Route Start Last Admin Trade Name Freq PRN Reason Stop Dose Admin Acetaminophen 650 mg 06/02/19 00:22 Tylenol Oral Solution - GT Q6H PRN Fever Or Pain Amino Acids 30 ml 06/02/19 08:00 06/02/19 17:07 Prosource No Carb Liquid Pkt PO 30 ml BID@0800,1730 [facility] Administration Apixaban 5 mg 06/02/19 10:00 06/02/19 11:10 Eliquis - PEG 5 mg BID [facility] Administration Atorvastatin Calcium 40 mg 06/02/19 22:00 Lipitor - PO HS [facility] Diltiazem HCl 30 mg 06/02/19 06:00 06/02/19 14:40 Cardizem - PO 30 mg TID [facility] Administration Docusate Sodium 200 mg 06/02/19 00:22 Colace Liquid - GT DAILY PRN CONSTIPATION Ferrous Sulfate 300 mg 06/02/19 10:00 06/02/19 11:10 Feosol NGT 300 mg BID [facility] Administration Furosemide 40 mg 06/02/19 10:00 06/02/19 11:11 Lasix Oral Solution - NGT 40 mg DAILY [facility] Administration Insulin Aspart 1 vial 06/02/19 07:00 06/02/19 17:06 Novolog Vial Sliding Scale - SQ Not Given ACHS [facility] Protocol Insulin Detemir 18 units 06/02/19 07:00 06/02/19 06:54 Levemir Vial SQ Not Given AM [facility] Lisinopril 10 mg 06/02/19 10:00 06/02/19 11:09 Prinivil NGT 10 mg DAILY [facility] Administration Metoprolol Tartrate 25 mg 06/02/19 06:00 06/02/19 14:38 Lopressor - GT 25 mg TID [facility] Administration Nystatin 500,000 units 06/02/19 06:00 06/02/19 17:07 Nystatin Oral Suspension - PO 500,000 units Q6HPO [facility] Administration Pantoprazole Sodium 40 mg 06/02/19 10:00 06/02/19 11:10 Protonix - PO 40 mg DAILY [facility] Administration Polyethylene Glycol 17 gm 06/02/19 10:00 06/02/19 11:13 Miralax (For Daily Use) - GT 17 grams DAILY [facility] Administration Scopolamine HBr 1 patch 06/04/19 10:00 Transderm-Scop - TD Q72H [facility] Senna 8.8 mg 06/02/19 22:00 Senna Oral Solution - GT HS [facility] Thiamine HCl 200 mg 06/03/19 10:00 Vitamin B1 - PO DAILY [facility] Impression 1. RYNE 2. hyperkalemia 3. resp failure requiring intubation 4. resp acidosis 5. dm 6. hx htn 7. sleep apnea 8. obesity 9. hx non compliance 10. chf 11. sarcoid 12. volume overload 13. hypernatremia Plan - monitor renal function - repeat labs in am - cont with lasix - monitor volume status - cont feeds
[2019-06-02] MEDS: ATORVASTATIN CA 40 MG TABLET (FP) PO SCH (23:16)
[2019-06-02] MEDS: SENNOSIDES 8.8 MG/5 ML BULK BOTTLE GT SCH (23:16)
[2019-06-03] MEDS ORDERED: PT OWN MED DRAWER 7, Y5N ONE ×5 (06:00→23:32)
[2019-06-03] MEDS: NYSTATIN 500,000 UNITS/5 ML SUSPENSION PO SCH ×4 (06:22→23:05)
[2019-06-03] MEDS: dilTIAZem HCL 30 MG TABLET (FP) PO SCH ×3 (06:22→23:03)
[2019-06-03] MEDS: METOPROLOL TARTRATE 25 MG TABLET (FP) GT SCH ×3 (06:22→23:04)
[2019-06-03] MEDS: INSULIN (LEVEMIR) 100 UNITS/ML UNITS SQ SCH (06:23)
[2019-06-03] MEDS: INSULIN SLIDING SCALE (NOVOLOG) 1 VIAL SQ SCH ×4 (06:24→23:10)
[2019-06-03 09:04] LABS: BASO % 0.6 % (0-2.0); EOS % 1.5 % (0-4.5); HEMATOCRIT 32.3 % (35.4-49); HEMOGLOBIN 10.1 GM/dL (11.7-16.9); LYMPH % 7.4 % (8-40); MCH 25.3 pg (25.7-33.7); MCHC 31.2 g/dl (32.0-35.9); MEAN PLT VOLUME 8.8 fl (7.5-11.1); NEUT % 77.5 % (42.8-82.8); PLATELET COUNT 284 K/MM3 (134-434); RBC 3.98 M/mm3 (4.00-5.60); RDW 19.7 % (11.9-15.9); WHITE BLOOD COUNT 3.8 K/mm3 (4.0-10.0)
[2019-06-03 09:39] LABS: ALBUMIN 2.2 g/dl (3.4-5.0); BILIRUBIN,TOTAL 0.5 mg/dL (0.2-1); BLOOD UREA NITROGEN 31.8 mg/dL (7-18); CALCIUM 8.6 mg/dL (8.5-10.1); POTASSIUM 3.9 mmol/L (3.5-5.1); TOT PROT 7.2 g/dl (6.4-8.2)
[2019-06-03] MEDS: PANTOPRAZOLE 40 MG TABLET PO SCH (10:24)
[2019-06-03] MEDS: LISINOPRIL 10 MG TABLET (FP) NGT SCH (10:24)
[2019-06-03] MEDS: AMINO ACIDS/PROTEIN HYDROLYS 30 ML LIQUID.PKT PO SCH ×2 (10:24→17:27)
[2019-06-03] MEDS: FERROUS SO4 300 MG/5 ML ORAL SOLN UNIT DOSE CUPS NGT SCH ×2 (10:24→23:04)
[2019-06-03] MEDS: APIXABAN 5 MG TABLET PEG SCH ×2 (10:24→23:04)
[2019-06-03] MEDS: THIAMINE HCL 100 MG TABLET (FP) PO SCH (10:25)
[2019-06-03] MEDS: POLYETHYLENE GLYCOL 3350 119 GM BTL GT SCH (10:25)
--- NOTE | 2019-06-03 11:37 | PN ---
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 (short form) - Note 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: PULMONARY Vented, awake. Moving all extremities. No fevers recorded. Vital Signs Period Temp Pulse Resp BP Sys/[place] Pulse Ox Last 24 Hr 97.7 F-98.8 F 72-98 18-22 107-126/63-76 100 Gen: vented, awake Heart: irregular Lung: scattered rhonchi Abd: soft, nontender Ext: trace edema CBC, BMP 06/03/19 07:28 06/03/19 07:28 Active Medications Acetaminophen (Tylenol Oral Solution -) 650 mg GT Q6H PRN PRN Reason: Fever Or Pain Amino Acids (Prosource No Carb Liquid Pkt) 30 ml PO BID@0800,1730 [facility] Last Admin: 06/03/19 10:24 Dose: 30 ml Apixaban (Eliquis -) 5 mg PEG BID [facility] Last Admin: 06/03/19 10:24 Dose: 5 mg Atorvastatin Calcium (Lipitor -) 40 mg PO HS [facility] Last Admin: 06/02/19 23:16 Dose: 40 mg Diltiazem HCl (Cardizem -) 30 mg PO TID [facility] Last Admin: 06/03/19 06:22 Dose: 30 mg Docusate Sodium (Colace Liquid -) 200 mg GT DAILY PRN PRN Reason: CONSTIPATION Ferrous Sulfate (Feosol) 300 mg NGT BID [facility] Last Admin: 06/03/19 10:24 Dose: 300 mg Furosemide (Lasix Oral Solution -) 40 mg NGT DAILY [facility] Last Admin: 06/02/19 11:11 Dose: 40 mg Insulin Aspart (Novolog Vial Sliding Scale -) 1 vial SQ ACHS [facility]; Protocol Last Admin: 06/03/19 06:24 Dose: 3 unit Insulin Detemir (Levemir Vial) 18 units SQ AM [facility] Last Admin: 06/03/19 06:23 Dose: 18 unit Lisinopril (Prinivil) 10 mg NGT DAILY [facility] Last Admin: 06/03/19 10:24 Dose: 10 mg Metoprolol Tartrate (Lopressor -) 25 mg GT TID [facility] Last Admin: 06/03/19 06:22 Dose: 25 mg Nystatin (Nystatin Oral Suspension -) 500,000 units PO Q6HPO [facility] Last Admin: 06/03/19 06:22 Dose: 500,000 units Pantoprazole Sodium (Protonix -) 40 mg PO DAILY [facility] Last Admin: 06/03/19 10:24 Dose: 40 mg Polyethylene Glycol (Miralax (For Daily Use) -) 17 gm GT DAILY [facility] Last Admin: 06/03/19 10:25 Dose: 17 grams Senna (Senna Oral Solution -) 8.8 mg GT HS [facility] Last Admin: 06/02/19 23:16 Dose: 8.8 mg Thiamine HCl (Vitamin B1 -) 200 mg PO DAILY [facility] Last Admin: 06/03/19 10:25 Dose: 200 mg A/P Acute Hypoxic and Hypercapneic Respiratory Failure s/p tracheostomy Pneumonia Gram Positive Bacteremia Septic Shock resolved Lactic Acidosis resolved ARDS resolved Paroxysmal Atrial Fluter with RVR Acute on Chronic Diastolic Heart Failure Acute on Chronic Renal Failure r/o Guillian [place] Syndrome DM Anemia Sarcoidosis - s/p IVIG - completed antibiotics - rate control - continue anticoagulation - continue lasix - monitor urine output, creatinine - daily PMV trials - spontaneous breathing trials as tolerated with goal of trach collar during day, CPAP/PS at night - enteral feeds - DVT/GI prophylaxis
--- NOTE | 2019-06-03 12:45 | PN ---
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, DIGITAL MEDIA ANALYST - Note 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: Improving significantly, much improved motor function. Bilateral facial retraction much improved, not yet baseline. Protruding tongue. Pt mouthing words to staff. Getting stronger, moving extremities more. PMV used yesterday with much improved speech, per nursing Pt has good potential to use for communication, and to expedite weaning from ventilator. Suggest use PMV daily, increasing time as tolerated. If PMV provided and tolerated routinely, suggest MBS on 06/05.
--- NOTE | 2019-06-03 12:50 | PN ---
Physical Exam: SUBJECTIVE: Patient seen and examined. Pt was retaining so ortiz placed. Pt was groggy this AM, barely arousable to sternal rub but upon reround he was much improved. OBJECTIVE: Vital Signs Period Temp Pulse Resp BP Sys/[place] Pulse Ox Last 24 Hr 97.7 F-98.8 F 72-98 18-23 107-126/63-76 100-100 GENERAL: The patient is awake, alert, and fully oriented, in no acute distress. LUNGS: Breath sounds equal, clear to auscultation bilaterally, no wheezes, no crackles, no accessory muscle use. HEART: Regular rate and rhythm, S1, S2 without murmur, rub or gallop. ABDOMEN: Soft, nontender, nondistended. EXTREMITIES: 2+ pulses, warm, well-perfused, no edema. NEUROLOGICAL: improving every day, moving all extremities PSYCH: Normal mood, normal affect. SKIN: Warm, dry, no rashes or lesions noted Laboratory Results - last 24 hr 05/26/19 06/02/19 06/02/19 15:15 17:04 23:29 WBC RBC Hgb Hct MCV MCH MCHC RDW Plt Count MPV Absolute Neuts (auto) Neutrophils % Lymphocytes % Monocytes % Eosinophils % Basophils % Nucleated RBC % Sodium Potassium Chloride Carbon Dioxide Anion Gap BUN Creatinine Est GFR (CKD-EPI)AfAm Est GFR (CKD-EPI)NonAf POC Glucometer 147 123 Random Glucose Calcium Total Bilirubin AST ALT Alkaline Phosphatase Total Protein Albumin Ser Oligoclonal Bands 0 06/03/19 06/03/19 06/03/19 06:20 07:28 07:28 WBC 3.8 L RBC 3.98 L Hgb 10.1 L Hct 32.3 L MCV 81.0 MCH 25.3 L MCHC 31.2 L RDW 19.7 H Plt Count 284 D MPV 8.8 Absolute Neuts (auto) 2.9 Neutrophils % 77.5 Lymphocytes % 7.4 L Monocytes % 13.0 H Eosinophils % 1.5 Basophils % 0.6 Nucleated RBC % 0 Sodium 138 Potassium 3.9 Chloride 101 Carbon Dioxide 31 Anion Gap 6 L BUN 31.8 H Creatinine 1.0 Est GFR (CKD-EPI)AfAm 100.55 Est GFR (CKD-EPI)NonAf 86.76 POC Glucometer 155 Random Glucose 159 H Calcium 8.6 Total Bilirubin 0.5 AST 30 ALT 25 Alkaline Phosphatase 129 H Total Protein 7.2 Albumin 2.2 L Ser Oligoclonal Bands 06/03/19 11:55 WBC RBC Hgb Hct MCV MCH MCHC RDW Plt Count MPV Absolute Neuts (auto) Neutrophils % Lymphocytes % Monocytes % Eosinophils % Basophils % Nucleated RBC % Sodium Potassium Chloride Carbon Dioxide Anion Gap BUN Creatinine Est GFR (CKD-EPI)AfAm Est GFR (CKD-EPI)NonAf POC Glucometer 168 Random Glucose Calcium Total Bilirubin AST ALT Alkaline Phosphatase Total Protein Albumin Ser Oligoclonal Bands Active Medications Generic Name Dose Route Start Last Admin Trade Name Freq PRN Reason Stop Dose Admin Acetaminophen 650 mg 06/02/19 00:22 Tylenol Oral Solution - GT Q6H PRN Fever Or Pain Amino Acids 30 ml 06/02/19 08:00 06/03/19 10:24 Prosource No Carb Liquid Pkt PO 30 ml BID@0800,1730 [facility] Administration Apixaban 5 mg 06/02/19 10:00 06/03/19 10:24 Eliquis - PEG 5 mg BID [facility] Administration Atorvastatin Calcium 40 mg 06/02/19 22:00 06/02/19 23:16 Lipitor - PO 40 mg HS [facility] Administration Diltiazem HCl 30 mg 06/02/19 06:00 06/03/19 06:22 Cardizem - PO 30 mg TID [facility] Administration Docusate Sodium 200 mg 06/02/19 00:22 Colace Liquid - GT DAILY PRN CONSTIPATION Ferrous Sulfate 300 mg 06/02/19 10:00 06/03/19 10:24 Feosol NGT 300 mg BID [facility] Administration Furosemide 40 mg 06/02/19 10:00 06/02/19 11:11 Lasix Oral Solution - NGT 40 mg DAILY [facility] Administration Insulin Aspart 1 vial 06/02/19 07:00 06/03/19 12:01 Novolog Vial Sliding Scale - SQ 3 unit ACHS [facility] Administration Protocol Insulin Detemir 18 units 06/02/19 07:00 06/03/19 06:23 Levemir Vial SQ 18 unit AM [facility] Administration Lisinopril 10 mg 06/02/19 10:00 06/03/19 10:24 Prinivil NGT 10 mg DAILY [facility] Administration Metoprolol Tartrate 25 mg 06/02/19 06:00 06/03/19 06:22 Lopressor - GT 25 mg TID [facility] Administration Nystatin 500,000 units 06/02/19 06:00 06/03/19 06:22 Nystatin Oral Suspension - PO 500,000 units Q6HPO [facility] Administration Pantoprazole Sodium 40 mg 06/02/19 10:00 06/03/19 10:24 Protonix - PO 40 mg DAILY [facility] Administration Polyethylene Glycol 17 gm 06/02/19 10:00 06/03/19 10:25 Miralax (For Daily Use) - GT 17 grams DAILY [facility] Administration Senna 8.8 mg 06/02/19 22:00 06/02/19 23:16 Senna Oral Solution - GT 8.8 mg HS [facility] Administration Thiamine HCl 200 mg 06/03/19 10:00 06/03/19 10:25 Vitamin B1 - PO 200 mg DAILY [facility] Administration ASSESSMENT/PLAN: 53 y/o/m with PMHx of DM2, HFpEF(last EF: 45-50%), 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 #Acute Hypoxic and Hypercapneic Respiratory Failure; 2/2 Acute diastolic CHF vs. PNA -Intubated upon admission, extubated 05/09; then re-intubated 05/13/19; s/p trach . - started tube feeds and continuing IVIg per neuro recs (Dr. Fuentes). -c/w AC - transferred to floors - continue monitoring off abx -Cont vent support and wean FiO2 as tolerated. daily trials of extubation. - pt status on exam is improving on IVIG. - ortiz in place for acute urinary retention #Cardiogenic Shock; 2/2 Acute Diastolic CHF vs. Septic Shock. Unclear etiology. -Resolved -ECHO- EF of 55-60%, no significant abnormalities noted, no vegetations. -Per cardio, recommend cardiac MRI as outpatient to assess sarcoidosis involvement. #Altered mental status and weakness; 2/2 ? Critical care induced myopathy -Neuro Consulted (Dr. Pleitez), Dr. 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 Pt subsequently started on IVIg today. -Bedside EMG shows no evidence of myopathy, but cannot rule out myopathic process. -EEG(05/16/19): abnl EEG, nonspecific finding of diffuse encephalopathy - c/w IVIG 5th dose tomorrow - pt improved auditory ability with PMV and will continue to assess daily #Atrial Flutter w/ RVR -Cont with Cardizem 30 TID GT and Lopressor 25 TID GT (Dilt drip, Digoxin previously discontinued) -Heparin drip on hold initially due to bleeding around trach site, G-tube placed today. #RYNE on CKD w/ hyperkalemia; Improved Cr, K 3.8 -Nephro consulted -Cont Lisinopril 10mg QD given his improved renal function #DM2 -BGM/ISS ACHS -Inc Levemir to 18 U AM given glucose has been in 200's-300's after G tube placement and initiation of feeds. #FEN -free water fluid via NG tube -monitor and replete lytes as needed -Nephro feeds #Prophylaxis -Eliquis 5 BID -Protonix 40 daily Dispo: Pt will be monitored with IVIG therapy and will be transferred to LTAC pending fam and SW agree on place. Fam refusing [place] places. Visit type - Emergency Visit Emergency Visit: Yes ED Registration Date: 04/30/19 Care time: The patient presented to the Emergency Department on the above date and was hospitalized for further evaluation of their emergent condition. - New Patient This patient is new to me today: No - Critical Care Critical Care patient: No - Discharge Referral Referred to [facility] Med [facility].C.: No ATTENDING PHYSICIAN STATEMENT I saw and evaluated the patient. I reviewed the resident's note and discussed the case with the resident. I agree with the resident's findings and plan as documented. SUBJECTIVE: OBJECTIVE: ASSESSMENT AND PLAN:
--- NOTE | 2019-06-03 12:55 | PN ---
Teaching Attending Note Name of Resident: Magnus Lloyd ATTENDING PHYSICIAN STATEMENT I saw and evaluated the patient. I reviewed the resident's note and discussed the case with the resident. I agree with the resident's findings and plan as documented. SUBJECTIVE: Awake, mouthing words. Feels well, no complaints. OBJECTIVE: Afebrile, Hemodynamically Stable. Comfortable. Last Vital Signs Temp Pulse Resp BP Pulse Ox 98.2 F 72 23 H 117/71 100 06/03/19 10:00 06/03/19 12:27 06/03/19 12:27 06/03/19 10:06/03/19 12:27 HEENT: s/p Trach to Vent. Making eye contact, following commands, mouthing words. HEART: S1, S2, RRR LUNGS: Clear to auscultation ABDOMEN: High BMI, soft, non-tender, non-distended, normal BS. PEG in situ. EXTREMITIES: Trace edema, no calf tenderness. Neuro: Awake, Alert, following commands. Power much improved 4/5 all extremities. Laboratory Results - last 24 hr 05/26/19 06/02/19 06/02/19 15:15 17:04 23:29 WBC RBC Hgb Hct MCV MCH MCHC RDW Plt Count MPV Absolute Neuts (auto) Neutrophils % Lymphocytes % Monocytes % Eosinophils % Basophils % Nucleated RBC % Sodium Potassium Chloride Carbon Dioxide Anion Gap BUN Creatinine Est GFR (CKD-EPI)AfAm Est GFR (CKD-EPI)NonAf POC Glucometer 147 123 Random Glucose Calcium Total Bilirubin AST ALT Alkaline Phosphatase Total Protein Albumin Ser Oligoclonal Bands 0 06/03/19 06/03/19 06/03/19 06:20 07:28 07:28 WBC 3.8 L RBC 3.98 L Hgb 10.1 L Hct 32.3 L MCV 81.0 MCH 25.3 L MCHC 31.2 L RDW 19.7 H Plt Count 284 D MPV 8.8 Absolute Neuts (auto) 2.9 Neutrophils % 77.5 Lymphocytes % 7.4 L Monocytes % 13.0 H Eosinophils % 1.5 Basophils % 0.6 Nucleated RBC % 0 Sodium 138 Potassium 3.9 Chloride 101 Carbon Dioxide 31 Anion Gap 6 L BUN 31.8 H Creatinine 1.0 Est GFR (CKD-EPI)AfAm 100.55 Est GFR (CKD-EPI)NonAf 86.76 POC Glucometer 155 Random Glucose 159 H Calcium 8.6 Total Bilirubin 0.5 AST 30 ALT 25 Alkaline Phosphatase 129 H Total Protein 7.2 Albumin 2.2 L Ser Oligoclonal Bands 06/03/19 11:55 WBC RBC Hgb Hct MCV MCH MCHC RDW Plt Count MPV Absolute Neuts (auto) Neutrophils % Lymphocytes % Monocytes % Eosinophils % Basophils % Nucleated RBC % Sodium Potassium Chloride Carbon Dioxide Anion Gap BUN Creatinine Est GFR (CKD-EPI)AfAm Est GFR (CKD-EPI)NonAf POC Glucometer 168 Random Glucose Calcium Total Bilirubin AST ALT Alkaline Phosphatase Total Protein Albumin Ser Oligoclonal Bands Current Medications Generic Name Dose Route Start Last Admin Trade Name Freq PRN Reason Stop Dose Admin Acetaminophen 650 mg 06/02/19 00:22 Tylenol Oral Solution - GT Q6H PRN Fever Or Pain Amino Acids 30 ml 06/02/19 08:00 06/03/19 10:24 Prosource No Carb Liquid Pkt PO 30 ml BID@0800,1730 ELISSA Administration Apixaban 5 mg 06/02/19 10:00 06/03/19 10:24 Eliquis - PEG 5 mg BID ELISSA Administration Atorvastatin Calcium 40 mg 06/02/19 22:00 06/02/19 23:16 Lipitor - PO 40 mg HS ELISSA Administration Diltiazem HCl 30 mg 06/02/19 06:00 06/03/19 06:22 Cardizem - PO 30 mg TID ELISSA Administration Docusate Sodium 200 mg 06/02/19 00:22 Colace Liquid - GT DAILY PRN CONSTIPATION Ferrous Sulfate 300 mg 06/02/19 10:00 06/03/19 10:24 Feosol NGT 300 mg BID ELISSA Administration Furosemide 40 mg 06/02/19 10:00 06/02/19 11:11 Lasix Oral Solution - NGT 40 mg DAILY ELISSA Administration Insulin Aspart 1 vial 06/02/19 07:00 06/03/19 12:01 Novolog Vial Sliding Scale - SQ 3 unit ACHS ELISSA Administration Protocol Insulin Detemir 18 units 06/02/19 07:00 06/03/19 06:23 Levemir Vial SQ 18 unit AM ELISSA Administration Lisinopril 10 mg 06/02/19 10:00 06/03/19 10:24 Prinivil NGT 10 mg DAILY ELISSA Administration Metoprolol Tartrate 25 mg 06/02/19 06:00 06/03/19 06:22 Lopressor - GT 25 mg TID ELISSA Administration Nystatin 500,000 units 06/02/19 06:00 06/03/19 06:22 Nystatin Oral Suspension - PO 500,000 units Q6HPO ELISSA Administration Pantoprazole Sodium 40 mg 06/02/19 10:00 06/03/19 10:24 Protonix - PO 40 mg DAILY ELISSA Administration Polyethylene Glycol 17 gm 06/02/19 10:00 06/03/19 10:25 Miralax (For Daily Use) - GT 17 grams DAILY ELISSA Administration Senna 8.8 mg 06/02/19 22:00 06/02/19 23:16 Senna Oral Solution - GT 8.8 mg HS ELISSA Administration Thiamine HCl 200 mg 06/03/19 10:00 06/03/19 10:25 Vitamin B1 - PO 200 mg DAILY ELISSA Administration Home Medications Medication Instructions Recorded Amiodarone HCl 200 mg PO DAILY 04/30/19 Apixaban [Eliquis] 5 mg PO BID 04/30/19 Diltiazem Cd [Cardizem Cd -] 300 mg PO DAILY 04/30/19 Furosemide 40 mg PO BID 04/30/19 Glipizide 10 mg PO DAILY 04/30/19 Lisinopril 10 mg PO DAILY 04/30/19 Metformin HCl [Glucophage] 1,000 mg PO BID 04/30/19 Sitagliptin Phosphate [Januvia] 100 mg PO DAILY 04/30/19 ASSESSMENT AND PLAN: 53 year old male with Obesity, DM 2, Sarcoidosis, Hx Systolic CHF (EF 45-50%, now EF normal), EMMY (non-adherent with CPAP), and Atrial Flutter presented with sudden onset of shortness of breath, requiring intubation and mechanical ventilation, with prolonged hospitalization. 1. Acute Hypoxic and Hypercapneic Respiratory Failure secondary to Acute Diastolic CHF +/- PNA Extubated 05/09/19 and re-intubated 05/13/19 s/p Trach 05/22 Completed period of IV Lasix diuresis (EF previously 45%, now EF normal) and antibiotic course for PNA (ESBL-positive sputum). On maintenance dose Lasix 40mg via PEG. Feeds via PEG Weaning trials as per Pulm. 2. Cardiogenic Shock sec to Acute Diastolic CHF vs Septic Shock sec to PNA, etiology unclear - resolved, off pressors. Weaned off Levophed and Vasopressin Blood Cx - Staph epi, likely contaminant. Echo - no vegetations. Repeat Blood Cx neg x 2. Another set Blood Cx pending due to recurrence of fever. Completed Meropenem for ESBL Pneumonia BP rebounded well - tolerating Metoprolol, Diltiazem, and Lisinopril. Cardiology following - for out-patient Cardiac MRI to assess degree of sarcoid involvement. 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 Responding well - now able to mouth words, move arms/legs (previously unable to) Dispo to LTAC for vent management and ongoing Rehab for functional recovery 4. Atrial flutter with RVR - resolved - now rate controlled on Metoprolol and Diltiazem. Digoxin stopped. On Eliquis via PEG. 5. RYNE with Hyperkalemia - likely secondary to Cardiorenal phenomenon, resolved. Nephrology following. Lisinopril, Lasix resumed. 6. Hx Sarcoidosis - Pulm follow up on discharge. 7. DM 2 - Insulin drip transitioned to Detemir/Novolog as per sliding scale. 8. Iron Deficiency Anemia - FeSO4 supplementation. No evidence of active blood loss. For out-patient Ix. DVT Px - on Eliquis GI Px - Protonix. Nutrition - Glucerna via PEG. Dispo - planning for LTAC
[2019-06-03] MEDS: FUROSEMIDE 40 MG/5 ML UNIT-DOSE CUP NGT SCH (13:07)
[2019-06-03 15:51] VITALS: BMI 42.6
--- NOTE | 2019-06-03 16:14 | PN ---
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, Physician History of Present Illness: Pt seen and examined at bedside. He is awake and alert. He is moving all limbs and following commands. - Current Medication List Current Medications: Active Medications Acetaminophen (Tylenol Oral Solution -) 650 mg GT Q6H PRN PRN Reason: Fever Or Pain Amino Acids (Prosource No Carb Liquid Pkt) 30 ml PO BID@0800,1730 [facility] Last Admin: 06/03/19 10:24 Dose: 30 ml Apixaban (Eliquis -) 5 mg PEG BID [facility] Last Admin: 06/03/19 10:24 Dose: 5 mg Atorvastatin Calcium (Lipitor -) 40 mg PO HS [facility] Last Admin: 06/02/19 23:16 Dose: 40 mg Diltiazem HCl (Cardizem -) 30 mg PO TID [facility] Last Admin: 06/03/19 15:00 Dose: 30 mg Docusate Sodium (Colace Liquid -) 200 mg GT DAILY PRN PRN Reason: CONSTIPATION Ferrous Sulfate (Feosol) 300 mg NGT BID [facility] Last Admin: 06/03/19 10:24 Dose: 300 mg Furosemide (Lasix Oral Solution -) 40 mg NGT DAILY [facility] Last Admin: 06/03/19 13:07 Dose: 40 mg Insulin Aspart (Novolog Vial Sliding Scale -) 1 vial SQ ACHS [facility]; Protocol Last Admin: 06/03/19 12:01 Dose: 3 unit Insulin Detemir (Levemir Vial) 18 units SQ AM [facility] Last Admin: 06/03/19 06:23 Dose: 18 unit Lisinopril (Prinivil) 10 mg NGT DAILY [facility] Last Admin: 06/03/19 10:24 Dose: 10 mg Metoprolol Tartrate (Lopressor -) 25 mg GT TID [facility] Last Admin: 06/03/19 13:07 Dose: 25 mg Nystatin (Nystatin Oral Suspension -) 500,000 units PO Q6HPO [facility] Last Admin: 06/03/19 13:00 Dose: 500,000 units Pantoprazole Sodium (Protonix -) 40 mg PO DAILY [facility] Last Admin: 06/03/19 10:24 Dose: 40 mg Polyethylene Glycol (Miralax (For Daily Use) -) 17 gm GT DAILY [facility] Last Admin: 06/03/19 10:25 Dose: 17 grams Senna (Senna Oral Solution -) 8.8 mg GT HS [facility] Last Admin: 06/02/19 23:16 Dose: 8.8 mg Thiamine HCl (Vitamin B1 -) 200 mg PO DAILY ELISSA Last Admin: 06/03/19 10:25 Dose: 200 mg - Objective Vital Signs: Vital Signs Temperature 98.3 F 06/03/19 15:42 Pulse Rate 73 06/03/19 15:42 Respiratory Rate 20 06/03/19 15:42 Blood Pressure 125/79 06/03/19 15:42 O2 Sat by Pulse Oximetry (%) 100 06/03/19 12:27 Constitutional: Yes: Calm Eyes: Yes: Conjunctiva Clear HENT: Yes: Atraumatic Neck: Yes: Other (trache) Cardiovascular: Yes: S1, S2 Respiratory: Yes: Mechanically Ventilated Gastrointestinal: Yes: Soft, Abdomen, Obese Genitourinary: Yes: Incontinence Edema: Yes Edema: LLE: Trace, RLE: Trace Neurological: Yes: Oriented Labs: CBC, BMP 06/03/19 07:28 06/03/19 07:28 INR, PTT INR 1.05 (0.83-1.09) 05/24/19 06:00 Problem List - Problems (1) Acute decompensated heart failure Code(s): I50.9 - HEART FAILURE, UNSPECIFIED (2) Atrial fibrillation and flutter Code(s): I48.91 - UNSPECIFIED ATRIAL FIBRILLATION; I48.92 - UNSPECIFIED ATRIAL FLUTTER (3) Hyperkalemia Code(s): E87.5 - HYPERKALEMIA (4) Pneumonia Code(s): J18.9 - PNEUMONIA, UNSPECIFIED ORGANISM Qualifiers: Pneumonia type: due to unspecified organism (5) Sarcoidosis of other sites Code(s): D86.89 - SARCOIDOSIS OF OTHER SITES Assessment/Plan Current Medications Generic Name Dose Route Start Last Admin Trade Name Freq PRN Reason Stop Dose Admin Acetaminophen 650 mg 06/02/19 00:22 Tylenol Oral Solution - GT Q6H PRN Fever Or Pain Amino Acids 30 ml 06/02/19 08:00 06/03/19 10:24 Prosource No Carb Liquid Pkt PO 30 ml BID@0800,1730 [facility] Administration Apixaban 5 mg 06/02/19 10:00 06/03/19 10:24 Eliquis - PEG 5 mg BID ELISSA Administration Atorvastatin Calcium 40 mg 06/02/19 22:00 02/24/20 23:16 Lipitor - PO 40 mg HS ELISSA Administration Diltiazem HCl 30 mg 06/02/19 06:00 06/03/19 15:00 Cardizem - PO 30 mg TID ELISSA Administration Docusate Sodium 200 mg 06/02/19 00:22 Colace Liquid - GT DAILY PRN CONSTIPATION Ferrous Sulfate 300 mg 06/02/19 10:00 06/03/19 10:24 Feosol NGT 300 mg BID ELISSA Administration Furosemide 40 mg 06/02/19 10:00 06/03/19 13:07 Lasix Oral Solution - NGT 40 mg DAILY ELISSA Administration Insulin Aspart 1 vial 06/02/19 07:00 06/03/19 12:01 Novolog Vial Sliding Scale - SQ 3 unit ACHS ELISSA Administration Protocol Insulin Detemir 18 units 06/02/19 07:00 06/03/19 06:23 Levemir Vial SQ 18 unit AM ELISSA Administration Lisinopril 10 mg 06/02/19 10:00 06/03/19 10:24 Prinivil NGT 10 mg DAILY ELISSA Administration Metoprolol Tartrate 25 mg 06/02/19 06:00 06/03/19 13:07 Lopressor - GT 25 mg TID ELISSA Administration Nystatin 500,000 units 06/02/19 06:00 06/03/19 13:00 Nystatin Oral Suspension - PO 500,000 units Q6HPO ELISSA Administration Pantoprazole Sodium 40 mg 06/02/19 10:00 06/03/19 10:24 Protonix - PO 40 mg DAILY ELISSA Administration Polyethylene Glycol 17 gm 06/02/19 10:00 06/03/19 10:25 Miralax (For Daily Use) - GT 17 grams DAILY ELISSA Administration Senna 8.8 mg 06/02/19 22:00 06/02/19 23:16 Senna Oral Solution - GT 8.8 mg HS ELISSA Administration Thiamine HCl 200 mg 06/03/19 10:00 06/03/19 10:25 Vitamin B1 - PO 200 mg DAILY ELISSA Administration Impression 1. RYNE 2. hyperkalemia 3. resp failure requiring intubation 4. resp acidosis 5. dm 6. hx htn 7. sleep apnea 8. obesity 9. hx non compliance 10. chf 11. sarcoid 12. volume overload 13. 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
[2019-06-03] MEDS: ATORVASTATIN CA 40 MG TABLET (FP) PO SCH (23:04)
[2019-06-04] MEDS: SENNOSIDES 8.8 MG/5 ML BULK BOTTLE GT SCH ×2 (00:52→23:45)
[2019-06-04] MEDS: METOPROLOL TARTRATE 25 MG TABLET (FP) GT SCH ×3 (07:01→23:44)
[2019-06-04] MEDS: INSULIN (LEVEMIR) 100 UNITS/ML UNITS SQ SCH (07:02)
[2019-06-04] MEDS: NYSTATIN 500,000 UNITS/5 ML SUSPENSION PO SCH ×4 (07:02→23:45)
[2019-06-04] MEDS: dilTIAZem HCL 30 MG TABLET (FP) PO SCH ×4 (07:02→23:45)
[2019-06-04] MEDS: INSULIN SLIDING SCALE (NOVOLOG) 1 VIAL SQ SCH ×4 (07:04→23:45)
[2019-06-04] MEDS ORDERED: INSULIN (NOVOLOG) ASPART 100 UNITS/ML 10ML VIAL ONE (07:59)
[2019-06-04] MEDS ORDERED: PT OWN MED DRAWER 7, Y5N ONE ×5 (07:59→23:43)
[2019-06-04 08:32] LABS: BASO % 0.6 % (0-2.0); HEMATOCRIT 33.6 % (35.4-49); HEMOGLOBIN 10.6 GM/dL (11.7-16.9); LYMPH % 7.8 % (8-40); MCH 25.3 pg (25.7-33.7); MCHC 31.6 g/dl (32.0-35.9); MEAN CELL VOLUME 80.2 fl (80-96); MEAN PLT VOLUME 8.8 fl (7.5-11.1); MONO % 12.9 % (3.8-10.2); NEUT % 76.7 % (42.8-82.8); PLATELET COUNT 345 K/MM3 (134-434); RBC 4.19 M/mm3 (4.00-5.60); RDW 19.2 % (11.9-15.9)
[2019-06-04 09:08] LABS: ALBUMIN 2.2 g/dl (3.4-5.0); BILIRUBIN,TOTAL 0.4 mg/dL (0.2-1); BLOOD UREA NITROGEN 26.9 mg/dL (7-18); CALCIUM 8.5 mg/dL (8.5-10.1); CREATININE 0.9 mg/dL (0.55-1.3); POTASSIUM 4.5 mmol/L (3.5-5.1)
[2019-06-04] MEDS: LISINOPRIL 10 MG TABLET (FP) NGT SCH (09:20)
[2019-06-04] MEDS: APIXABAN 5 MG TABLET PEG SCH ×2 (09:20→23:44)
[2019-06-04] MEDS: PANTOPRAZOLE 40 MG TABLET PO SCH (09:20)
[2019-06-04] MEDS: THIAMINE HCL 100 MG TABLET (FP) PO SCH (09:20)
[2019-06-04] MEDS: POLYETHYLENE GLYCOL 3350 119 GM BTL GT SCH (09:21)
[2019-06-04] MEDS: FERROUS SO4 300 MG/5 ML ORAL SOLN UNIT DOSE CUPS NGT SCH ×2 (09:21→23:44)
[2019-06-04] MEDS: AMINO ACIDS/PROTEIN HYDROLYS 30 ML LIQUID.PKT PO SCH ×2 (09:21→18:44)
[2019-06-04] MEDS: FUROSEMIDE 40 MG/5 ML UNIT-DOSE CUP NGT SCH (09:21)
[2019-06-04] MEDS ORDERED: SCOPOLAMINE HYDROBROMIDE 1 PATCH PATCH.TD72 TD SCH (10:00)
[2019-06-04 10:07] LABS: MUMPS AB IGG CSF < 5.0 AU/mL (<=10.9)
--- NOTE | 2019-06-04 12:48 | PN ---
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, PROGRAM ENGAGEMENT DIRECTOR - Note 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: Selected Entries 06/03/19 06/04/19 06/04/19 15:42 02:00 06:00 Lunch NPO Temperature 99.0 F 98.7 F Laboratory Tests 06/04/19 07:20 WBC 4.0 Initially PMV trial was unsuccessful with RT, due to copious secretions. PMV trial repeated with Speech Path with again romel-pharyngeal secretions, suctioned and cleared. Good voicing and no vocal wetness or throat clearing. Speech close to normal, precise and euphonic.Pt oriented, appropriate. Pt bilingual, fluent in Kyr[place]. Pt reported headache-10 out of 1-10 pain scale. Nursing made aware and medicated pt. Pt used PMV well, communicated needs 02 sat in 90's. RT took pt off PMV as he was desaturating (93-94) and he went to sleep. Suggest MBS to initiate po trials with safety with goal to wean from ventilator.
--- NOTE | 2019-06-04 13:03 | PN ---
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, Physician History of Present Illness: pulmonary awake on vent support ac mode,tolerated PMV for 20min - Current Medication List Current Medications: Active Medications Acetaminophen (Tylenol Oral Solution -) 650 mg GT Q6H PRN PRN Reason: Fever Or Pain Last Admin: 06/04/19 12:39 Dose: 650 mg Amino Acids (Prosource No Carb Liquid Pkt) 30 ml PO BID@0800,1730 [facility] Last Admin: 06/04/19 09:21 Dose: 30 ml Apixaban (Eliquis -) 5 mg PEG BID [facility] Last Admin: 06/04/19 09:20 Dose: 5 mg Atorvastatin Calcium (Lipitor -) 40 mg PO HS [facility] Last Admin: 06/03/19 23:04 Dose: 40 mg Diltiazem HCl (Cardizem -) 30 mg PO TID [facility] Last Admin: 06/04/19 07:02 Dose: 30 mg Docusate Sodium (Colace Liquid -) 200 mg GT DAILY PRN PRN Reason: CONSTIPATION Ferrous Sulfate (Feosol) 300 mg NGT BID [facility] Last Admin: 06/04/19 09:21 Dose: 300 mg Furosemide (Lasix Oral Solution -) 40 mg NGT DAILY [facility] Last Admin: 06/04/19 09:21 Dose: 40 mg Insulin Aspart (Novolog Vial Sliding Scale -) 1 vial SQ ACHS [facility]; Protocol Last Admin: 06/04/19 12:39 Dose: 3 unit Insulin Detemir (Levemir Vial) 18 units SQ AM [facility] Last Admin: 06/04/19 07:02 Dose: 18 unit Lisinopril (Prinivil) 10 mg NGT DAILY [facility] Last Admin: 06/04/19 09:20 Dose: 10 mg Metoprolol Tartrate (Lopressor -) 25 mg GT TID [facility] Last Admin: 06/04/19 07:01 Dose: 25 mg Nystatin (Nystatin Oral Suspension -) 500,000 units PO Q6HPO [facility] Last Admin: 06/04/19 12:40 Dose: 500,000 units Pantoprazole Sodium (Protonix -) 40 mg PO DAILY [facility] Last Admin: 06/04/19 09:20 Dose: 40 mg Polyethylene Glycol (Miralax (For Daily Use) -) 17 gm GT DAILY [facility] Last Admin: 06/04/19 09:21 Dose: 17 grams Senna (Senna Oral Solution -) 8.8 mg GT HS [facility] Last Admin: 06/04/19 00:52 Dose: 8.8 mg Tamsulosin HCl (Flomax -) 0.4 mg PO DAILY@0830 ELISSA Thiamine HCl (Vitamin B1 -) 200 mg PO DAILY [facility] Last Admin: 06/04/19 09:20 Dose: 200 mg - Objective Vital Signs: Vital Signs Temperature 98.7 F 06/04/19 06:00 Pulse Rate 69 06/04/19 08:15 Respiratory Rate 17 06/04/19 08:15 Blood Pressure 124/67 06/04/19 06:00 O2 Sat by Pulse Oximetry (%) 97 06/04/19 08:15 Constitutional: Yes: Well Nourished, Calm Eyes: Yes: WNL HENT: Yes: WNL Neck: Yes: WNL Cardiovascular: Yes: Regular Rate and Rhythm, S1, S2 Respiratory: Yes: CTA Bilaterally Gastrointestinal: Yes: Normal Bowel Sounds, Soft Extremities: Yes: WNL Edema: No Labs: CBC, BMP 06/04/19 07:20 06/04/19 07:20 INR, PTT INR 1.05 (0.83-1.09) 05/24/19 06:00 Problem List - Problems (1) Acute on chronic renal failure Code(s): N17.9 - ACUTE KIDNEY FAILURE, UNSPECIFIED; N18.9 - CHRONIC KIDNEY DISEASE, UNSPECIFIED (2) Atrial fibrillation and flutter Code(s): I48.91 - UNSPECIFIED ATRIAL FIBRILLATION; I48.92 - UNSPECIFIED ATRIAL FLUTTER (3) Morbid obesity Code(s): E66.01 - MORBID (SEVERE) OBESITY DUE TO EXCESS CALORIES (4) Pneumonia Code(s): J18.9 - PNEUMONIA, UNSPECIFIED ORGANISM Qualifiers: Pneumonia type: due to unspecified organism (5) Sleep apnea Code(s): G47.30 - SLEEP APNEA, UNSPECIFIED (6) Type 2 diabetes mellitus Code(s): E11.9 - TYPE 2 DIABETES MELLITUS WITHOUT COMPLICATIONS Qualifiers: Diabetes mellitus mcc insulin use: without mcc use Diabetes mellitus complication detail: with chronic kidney disease Chronic kidney disease stage: stage 2 (mild) (7) Acute respiratory failure with hypoxia and hypercapnia Code(s): J96.01 - ACUTE RESPIRATORY FAILURE WITH HYPOXIA; J96.02 - ACUTE RESPIRATORY FAILURE WITH HYPERCAPNIA (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
--- NOTE | 2019-06-04 14:46 | PN ---
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, Physician History of Present Illness: s/p tracheostomy resting on vent, PEG, tolerating PMV trials. Aflutter with improved rate response. 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 Strength improving, tolerated MBS, plan for dysphagia diet. - Current Medication List Current Medications: Active Medications Acetaminophen (Tylenol Oral Solution -) 650 mg GT Q6H PRN PRN Reason: Fever Or Pain Last Admin: 06/04/19 12:39 Dose: 650 mg Amino Acids (Prosource No Carb Liquid Pkt) 30 ml PO BID@0800,1730 [facility] Last Admin: 06/04/19 09:21 Dose: 30 ml Apixaban (Eliquis -) 5 mg PEG BID [facility] Last Admin: 06/04/19 09:20 Dose: 5 mg Atorvastatin Calcium (Lipitor -) 40 mg PO HS [facility] Last Admin: 06/03/19 23:04 Dose: 40 mg Diltiazem HCl (Cardizem -) 30 mg PO TID [facility] Last Admin: 06/04/19 07:02 Dose: 30 mg Docusate Sodium (Colace Liquid -) 200 mg GT DAILY PRN PRN Reason: CONSTIPATION Ferrous Sulfate (Feosol) 300 mg NGT BID [facility] Last Admin: 06/04/19 09:21 Dose: 300 mg Furosemide (Lasix Oral Solution -) 40 mg NGT DAILY [facility] Last Admin: 06/04/19 09:21 Dose: 40 mg Insulin Aspart (Novolog Vial Sliding Scale -) 1 vial SQ ACHS [facility]; Protocol Last Admin: 06/04/19 12:39 Dose: 3 unit Insulin Detemir (Levemir Vial) 18 units SQ AM [facility] Last Admin: 06/04/19 07:02 Dose: 18 unit Lisinopril (Prinivil) 10 mg NGT DAILY [facility] Last Admin: 06/04/19 09:20 Dose: 10 mg Metoprolol Tartrate (Lopressor -) 25 mg GT TID [facility] Last Admin: 06/04/19 07:01 Dose: 25 mg Nystatin (Nystatin Oral Suspension -) 500,000 units PO Q6HPO [facility] Last Admin: 06/04/19 12:40 Dose: 500,000 units Pantoprazole Sodium (Protonix -) 40 mg PO DAILY [facility] Last Admin: 06/04/19 09:20 Dose: 40 mg Polyethylene Glycol (Miralax (For Daily Use) -) 17 gm GT DAILY [facility] Last Admin: 06/04/19 09:21 Dose: 17 grams Senna (Senna Oral Solution -) 8.8 mg GT HS [facility] Last Admin: 06/04/19 00:52 Dose: 8.8 mg Tamsulosin HCl (Flomax -) 0.4 mg PO DAILY@0830 [facility] Thiamine HCl (Vitamin B1 -) 200 mg PO DAILY [facility] Last Admin: 06/04/19 09:20 Dose: 200 mg - Objective Vital Signs: Vital Signs Temperature 98.7 F 06/04/19 06:00 Pulse Rate 69 06/04/19 08:15 Respiratory Rate 23 H 06/04/19 12:00 Blood Pressure 124/67 06/04/19 06:00 O2 Sat by Pulse Oximetry (%) 97 06/04/19 12:15 Constitutional: Yes: No Distress, Calm Neck: Yes: Other (Tracheostomy) Cardiovascular: Yes: Regular Rate and Rhythm Respiratory: Yes: Mechanically Ventilated, Rhonchi Gastrointestinal: Yes: Normal Bowel Sounds, Soft, Abdomen, Obese, Other (PEG in place) Edema: Yes Edema: LLE: Trace, RLE: Trace Labs: CBC, BMP 06/04/19 07:20 06/04/19 07:20 INR, PTT INR 1.05 (0.83-1.09) 05/24/19 06:00 Problem List - Problems (1) Pneumonia Code(s): J18.9 - PNEUMONIA, UNSPECIFIED ORGANISM Qualifiers: Pneumonia type: due to unspecified organism (2) Acute hypercapnic respiratory failure due to obstructive sleep apnea Code(s): J96.02 - ACUTE RESPIRATORY FAILURE WITH HYPERCAPNIA; G47.33 - OBSTRUCTIVE SLEEP APNEA (ADULT) (PEDIATRIC) (3) Acute decompensated heart failure Code(s): I50.9 - HEART FAILURE, UNSPECIFIED (4) Sarcoidosis of other sites Code(s): D86.89 - SARCOIDOSIS OF OTHER SITES (5) Type 2 diabetes mellitus Code(s): E11.9 - TYPE 2 DIABETES MELLITUS WITHOUT COMPLICATIONS Qualifiers: Diabetes mellitus termite treater helper insulin use: without senior living use Diabetes mellitus complication detail: with chronic kidney disease Chronic kidney disease stage: stage 2 (mild) (6) Atrial fibrillation and flutter Code(s): I48.91 - UNSPECIFIED ATRIAL FIBRILLATION; I48.92 - UNSPECIFIED ATRIAL FLUTTER (7) Guillain Vigil syndrome Code(s): G61.0 - GUILLAIN-BARRE SYNDROME Assessment/Plan 05/01/2019 Normal LV and RV size and fxn, tr TR 03/14/2019 Normal LV size and fxn, no thrombus ADEEL, mild-mod dilated and HK RV, tr MR, mild-mod TR, tr [place], trace pericardial effusion 1. Acute hypoxic and hypercapneic respiratory failure currently on mechanical ventilation via tracheostomy 2. Post pneumonia, septic shock, Gram Positive Bacteremia and ARDS 3. Sarcoidosis confirmed by skin biopsy 4. OSAS nonadherent to CPAP 5. Paroxysmal Aflutter/Afib 6. Acute on chronic diastolic heart failure 7. Acute on CKD with hyperkalemia 8. Type 2 DM 9. Anemia 10. 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 s/p trial of IVIG, bronchodilator and enteral feeds with trial of dysphagia diet per S&S 2. Vent management, SBT, PMV trials as tolerated per ICU team 3. Rate-control with uptitrate oral Lopressor 25 mg TID and Cardizem 30 mg TID as hemodynamics tolerate, IV Cardizem and Lopressor as needed and continue Eliquis 5 mg BID 4. Lasix 40 QD (NGT) as needed with monitor renal function and electrolytes 5. Continue lisinopril 10 mg QD and Lipitor 40 QD 6. Follow up with Dr. Genaro Davila (cardiology at [facility]) as outpatient. Consider cardiac PET or MRI to exclude cardiac involvement in sarcoidosis as outpatient
--- NOTE | 2019-06-04 14:59 | PN ---
Teaching Attending Note Name of Resident: Magnus Lloyd ATTENDING PHYSICIAN STATEMENT I saw and evaluated the patient. I reviewed the resident's note and discussed the case with the resident. I agree with the resident's findings and plan as documented. SUBJECTIVE: Awake, speaking. Feels well, no complaints. OBJECTIVE: Afebrile, Hemodynamically Stable. Comfortable. Last Vital Signs Temp Pulse Resp BP Pulse Ox 98.7 F 69 23 H 124/67 97 06/04/19 06:00 06/04/19 08:15 06/04/19 12:00 06/04/19 06:00 06/04/19 12:15 HEENT: s/p Trach to Vent. Making eye contact, following commands, speaking HEART: S1, S2, RRR LUNGS: good air entry bilaterally ABDOMEN: High BMI, soft, non-tender, non-distended, normal BS. PEG in situ. EXTREMITIES: Trace edema, no calf tenderness. Neuro: Awake, Alert, following commands. Power much improved 4/5 all extremities. Laboratory Results - last 24 hr 06/03/19 06/03/19 06/04/19 17:24 23:07 06:59 WBC RBC Hgb Hct MCV MCH MCHC RDW Plt Count MPV Absolute Neuts (auto) Neutrophils % Lymphocytes % Monocytes % Eosinophils % Basophils % Nucleated RBC % Sodium Potassium Chloride Carbon Dioxide Anion Gap BUN Creatinine Est GFR (CKD-EPI)AfAm Est GFR (CKD-EPI)NonAf POC Glucometer 166 148 132 Random Glucose Calcium Total Bilirubin AST ALT Alkaline Phosphatase Total Protein Albumin 06/04/19 06/04/19 06/04/19 07:20 07:20 12:34 WBC 4.0 RBC 4.19 Hgb 10.6 L Hct 33.6 L MCV 80.2 MCH 25.3 L MCHC 31.6 L RDW 19.2 H Plt Count 345 D MPV 8.8 Absolute Neuts (auto) 3.0 Neutrophils % 76.7 Lymphocytes % 7.8 L Monocytes % 12.9 H Eosinophils % 2.0 Basophils % 0.6 Nucleated RBC % 0 Sodium 136 Potassium 4.5 Chloride 100 Carbon Dioxide 28 Anion Gap 9 BUN 26.9 H Creatinine 0.9 Est GFR (CKD-EPI)AfAm 114.21 Est GFR (CKD-EPI)NonAf 98.54 POC Glucometer 174 Random Glucose 150 H Calcium 8.5 Total Bilirubin 0.4 AST 25 ALT 20 Alkaline Phosphatase 153 H Total Protein 7.0 Albumin 2.2 L Current Medications Generic Name Dose Route Start Last Admin Trade Name Freq PRN Reason Stop Dose Admin Acetaminophen 650 mg 06/02/19 00:22 06/04/19 12:39 Tylenol Oral Solution - GT 650 mg Q6H PRN Administration Fever Or Pain Amino Acids 30 ml 06/02/19 08:00 06/04/19 09:21 Prosource No Carb Liquid Pkt PO 30 ml BID@0800,1730 [facility] Administration Apixaban 5 mg 06/02/19 10:00 06/04/19 09:20 Eliquis - PEG 5 mg BID [facility] Administration Atorvastatin Calcium 40 mg 06/02/19 22:00 06/03/19 23:04 Lipitor - PO 40 mg HS [facility] Administration Diltiazem HCl 30 mg 06/02/19 06:00 06/04/19 07:02 Cardizem - PO 30 mg TID [facility] Administration Docusate Sodium 200 mg 06/02/19 00:22 Colace Liquid - GT DAILY PRN CONSTIPATION Ferrous Sulfate 300 mg 06/02/19 10:00 06/04/19 09:21 Feosol NGT 300 mg BID [facility] Administration Furosemide 40 mg 06/02/19 10:00 06/04/19 09:21 Lasix Oral Solution - NGT 40 mg DAILY [facility] Administration Insulin Aspart 1 vial 06/02/19 07:00 06/04/19 12:39 Novolog Vial Sliding Scale - SQ 3 unit ACHS [facility] Administration Protocol Insulin Detemir 18 units 06/02/19 07:00 06/04/19 07:02 Levemir Vial SQ 18 unit AM [facility] Administration Lisinopril 10 mg 06/02/19 10:00 06/04/19 09:20 Prinivil NGT 10 mg DAILY [facility] Administration Metoprolol Tartrate 25 mg 06/02/19 06:00 06/04/19 07:01 Lopressor - GT 25 mg TID [facility] Administration Nystatin 500,000 units 06/02/19 06:00 06/04/19 12:40 Nystatin Oral Suspension - PO 500,000 units Q6HPO [facility] Administration Pantoprazole Sodium 40 mg 06/02/19 10:00 06/04/19 09:20 Protonix - PO 40 mg DAILY [facility] Administration Polyethylene Glycol 17 gm 06/02/19 10:00 06/04/19 09:21 Miralax (For Daily Use) - GT 17 grams DAILY [facility] Administration Senna 8.8 mg 06/02/19 22:00 06/04/19 00:52 Senna Oral Solution - GT 8.8 mg HS [facility]IS[facility] Administration Tamsulosin HCl 0.4 mg 06/04/19 12:10 Flomax - PO DAILY@0830 [facility] Thiamine HCl 200 mg 06/03/19 10:00 06/04/19 09:20 Vitamin B1 - PO 200 mg DAILY [facility] Administration Home Medications Medication Instructions Recorded Amiodarone HCl 200 mg PO DAILY 04/30/19 Apixaban [Eliquis] 5 mg PO BID 04/30/19 Diltiazem Cd [Cardizem Cd -] 300 mg PO DAILY 04/30/19 Furosemide 40 mg PO BID 04/30/19 Glipizide 10 mg PO DAILY 04/30/19 Lisinopril 10 mg PO DAILY 04/30/19 Metformin HCl [Glucophage] 1,000 mg PO BID 04/30/19 Sitagliptin Phosphate [Januvia] 100 mg PO DAILY 04/30/19 ASSESSMENT AND PLAN: 53 year old male with Obesity, DM 2, Sarcoidosis, Hx Systolic CHF (EF 45-50%, now EF normal), EMMY (non-adherent with CPAP), and Atrial Flutter presented with sudden onset of shortness of breath, requiring intubation and mechanical ventilation, with prolonged hospitalization. 1. Acute Hypoxic and Hypercapneic Respiratory Failure secondary to Acute Diastolic CHF +/- PNA Extubated 05/09/19 and re-intubated 05/13/19 s/p Trach 05/22 Completed period of IV Lasix diuresis (EF previously 45%, now EF normal) and antibiotic course for PNA (ESBL-positive sputum). On maintenance dose Lasix 40mg via PEG. Feeds via PEG Weaning trials as per Pulm. MBS as per Speech therapy 2. Cardiogenic Shock sec to Acute Diastolic CHF vs Septic Shock sec to PNA, etiology unclear - resolved, off pressors. Weaned off Levophed and Vasopressin Blood Cx - Staph epi, likely contaminant. Echo - no vegetations. Repeat Blood Cx neg x 2. Another set Blood Cx pending due to recurrence of fever. Completed Meropenem for ESBL Pneumonia BP rebounded well - tolerating Metoprolol, Diltiazem, and Lisinopril. Cardiology following - for out-patient Cardiac MRI to assess degree of sarcoid involvement. 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 Responding well - now able to mouth words, move arms/legs (previously unable to) Dispo to LTAC for vent management and ongoing Rehab for functional recovery 4. Atrial flutter with RVR - resolved - now rate controlled on Metoprolol and Diltiazem. Digoxin stopped. On Eliquis via PEG. 5. RYNE with Hyperkalemia - likely secondary to Cardiorenal phenomenon, resolved. Nephrology following. Lisinopril, Lasix resumed. 6. Hx Sarcoidosis - Pulm follow up on discharge. 7. DM 2 - Insulin drip transitioned to Detemir/Novolog as per sliding scale. 8. Iron Deficiency Anemia - FeSO4 supplementation. No evidence of active blood loss. For out-patient Ix. DVT Px - on Eliquis GI Px - Protonix. Nutrition - Glucerna via PEG. MBS today. Dispo - awaiting LTAC
--- NOTE | 2019-06-04 17:33 | PN ---
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, Physician History of Present Illness: Pt seen and examined at bedside. He is awake and appears comfortable. - Current Medication List Current Medications: Active Medications Acetaminophen (Tylenol Oral Solution -) 650 mg GT Q6H PRN PRN Reason: Fever Or Pain Last Admin: 06/04/19 12:39 Dose: 650 mg Amino Acids (Prosource No Carb Liquid Pkt) 30 ml PO BID@0800,1730 [facility] Last Admin: 06/04/19 09:21 Dose: 30 ml Apixaban (Eliquis -) 5 mg PEG BID [facility] Last Admin: 06/04/19 09:20 Dose: 5 mg Atorvastatin Calcium (Lipitor -) 40 mg PO HS [facility] Last Admin: 06/03/19 23:04 Dose: 40 mg Diltiazem HCl (Cardizem -) 30 mg PO TID [facility] Last Admin: 06/04/19 15:46 Dose: Not Given Docusate Sodium (Colace Liquid -) 200 mg GT DAILY PRN PRN Reason: CONSTIPATION Ferrous Sulfate (Feosol) 300 mg NGT BID [facility] Last Admin: 06/04/19 09:21 Dose: 300 mg Furosemide (Lasix Oral Solution -) 40 mg NGT DAILY [facility] Last Admin: 06/04/19 09:21 Dose: 40 mg Insulin Aspart (Novolog Vial Sliding Scale -) 1 vial SQ ACHS [facility]; Protocol Last Admin: 06/04/19 12:39 Dose: 3 unit Insulin Detemir (Levemir Vial) 18 units SQ AM [facility] Last Admin: 06/04/19 07:02 Dose: 18 unit Lisinopril (Prinivil) 10 mg NGT DAILY [facility] Last Admin: 06/04/19 09:20 Dose: 10 mg Metoprolol Tartrate (Lopressor -) 25 mg GT TID [facility] Last Admin: 06/04/19 15:40 Dose: 25 mg Nystatin (Nystatin Oral Suspension -) 500,000 units PO Q6HPO [facility] Last Admin: 06/04/19 12:40 Dose: 500,000 units Pantoprazole Sodium (Protonix -) 40 mg PO DAILY [facility] Last Admin: 06/04/19 09:20 Dose: 40 mg Polyethylene Glycol (Miralax (For Daily Use) -) 17 gm GT DAILY [facility] Last Admin: 06/04/19 09:21 Dose: 17 grams Senna (Senna Oral Solution -) 8.8 mg GT HS [facility] Last Admin: 06/04/19 00:52 Dose: 8.8 mg Tamsulosin HCl (Flomax -) 0.4 mg PO DAILY@0830 [facility] Thiamine HCl (Vitamin B1 -) 200 mg PO DAILY [facility] Last Admin: 06/04/19 09:20 Dose: 200 mg - Objective Vital Signs: Vital Signs Temperature 98.9 F 06/04/19 14:00 Pulse Rate 50 L 06/04/19 15:15 Respiratory Rate 16 06/04/19 17:17 Blood Pressure 126/72 06/04/19 15:15 O2 Sat by Pulse Oximetry (%) 97 06/04/19 12:15 Constitutional: Yes: Calm Eyes: Yes: Conjunctiva Clear HENT: Yes: Atraumatic Neck: Yes: Supple Cardiovascular: Yes: S1, S2 Respiratory: Yes: Mechanically Ventilated Gastrointestinal: Yes: Soft, Abdomen, Obese Genitourinary: Yes: Incontinence Musculoskeletal: Yes: Muscle Weakness Edema: Yes Edema: LLE: Trace, RLE: Trace Neurological: Yes: Oriented Labs: CBC, BMP 06/04/19 07:20 06/04/19 07:20 INR, PTT INR 1.05 (0.83-1.09) 05/24/19 06:00 Problem List - Problems (1) Acute decompensated heart failure Code(s): I50.9 - HEART FAILURE, UNSPECIFIED (2) Atrial fibrillation and flutter Code(s): I48.91 - UNSPECIFIED ATRIAL FIBRILLATION; I48.92 - UNSPECIFIED ATRIAL FLUTTER (3) Hyperkalemia Code(s): E87.5 - HYPERKALEMIA (4) Pneumonia Code(s): J18.9 - PNEUMONIA, UNSPECIFIED ORGANISM Qualifiers: Pneumonia type: due to unspecified organism (5) Sarcoidosis of other sites Code(s): D86.89 - SARCOIDOSIS OF OTHER SITES Assessment/Plan Current Medications Generic Name Dose Route Start Last Admin Trade Name Freq PRN Reason Stop Dose Admin Acetaminophen 650 mg 06/02/19 00:22 06/04/19 12:39 Tylenol Oral Solution - GT 650 mg Q6H PRN Administration Fever Or Pain Amino Acids 30 ml 06/02/19 08:00 06/04/19 09:21 Prosource No Carb Liquid Pkt PO 30 ml BID@0800,1730 [facility] Administration Apixaban 5 mg 06/02/19 10:00 06/04/19 09:20 Eliquis - PEG 5 mg BID [facility]ISSA Administration Atorvastatin Calcium 40 mg 06/02/19 22:00 06/03/19 23:04 Lipitor - PO 40 mg HS [facility] Administration Diltiazem HCl 30 mg 06/02/19 06:00 06/04/19 15:46 Cardizem - PO Not Given TID [facility] Docusate Sodium 200 mg 06/02/19 00:22 Colace Liquid - GT DAILY PRN CONSTIPATION Ferrous Sulfate 300 mg 06/02/19 10:00 06/04/19 09:21 Feosol NGT 300 mg BID [facility]ISSA Administration Furosemide 40 mg 06/02/19 10:00 06/04/19 09:21 Lasix Oral Solution - NGT 40 mg DAILY [facility] Administration Insulin Aspart 1 vial 06/02/19 07:00 06/04/19 12:39 Novolog Vial Sliding Scale - SQ 3 unit ACHS [facility] Administration Protocol Insulin Detemir 18 units 06/02/19 07:00 06/04/19 07:02 Levemir Vial SQ 18 unit AM [facility] Administration Lisinopril 10 mg 06/02/19 10:00 06/04/19 09:20 Prinivil NGT 10 mg DAILY [facility] Administration Metoprolol Tartrate 25 mg 06/02/19 06:00 06/04/19 15:40 Lopressor - GT 25 mg TID [facility] Administration Nystatin 500,000 units 06/02/19 06:00 06/04/19 12:40 Nystatin Oral Suspension - PO 500,000 units Q6HPO [facility] Administration Pantoprazole Sodium 40 mg 06/02/19 10:00 06/04/19 09:20 Protonix - PO 40 mg DAILY [facility] Administration Polyethylene Glycol 17 gm 06/02/19 10:00 06/04/19 09:21 Miralax (For Daily Use) - GT 17 grams DAILY [facility] Administration Senna 8.8 mg 06/02/19 22:00 06/04/19 00:52 Senna Oral Solution - GT 8.8 mg HS [facility] Administration Tamsulosin HCl 0.4 mg 06/04/19 12:10 Flomax - PO DAILY@0830 [facility] Thiamine HCl 200 mg 06/03/19 10:00 06/04/19 09:20 Vitamin B1 - PO 200 mg DAILY [facility] Administration Impression 1. RYNE 2. hyperkalemia 3. resp failure requiring intubation 4. resp acidosis 5. dm 6. hx htn 7. sleep apnea 8. obesity 9. hx non compliance 10. chf 11. sarcoid 12. volume overload 13. hypernatremia Plan - cont lasix - jan function stable - monitor lytes - discussed with family - volume status improving - avoid fluid overload - pulm follow up for weaning
--- NOTE | 2019-06-04 20:06 | PN ---
Physical Exam: SUBJECTIVE: Patient seen and examined. Continues to improve, respiartory status improving as well as total body movement. OBJECTIVE: Vital Signs Period Temp Pulse Resp BP Sys/[place] Pulse Ox Last 24 Hr 98.0 F-99.1 F 50-98 16-23 108-141/55-86 97-100 GENERAL: The patient is awake, alert, and fully oriented, in no acute distress. LUNGS: Breath sounds equal, clear to auscultation bilaterally, no wheezes, no crackles, no accessory muscle use. HEART: Regular rate and rhythm, S1, S2 without murmur, rub or gallop. ABDOMEN: Soft, nontender, nondistended. EXTREMITIES: 2+ pulses, warm, well-perfused, no edema. NEUROLOGICAL: improving every day, moving all extremities PSYCH: Normal mood, normal affect. SKIN: Warm, dry, no rashes or lesions noted Laboratory Results - last 24 hr 06/03/19 06/04/19 06/04/19 23:07 06:59 07:20 WBC 4.0 RBC 4.19 Hgb 10.6 L Hct 33.6 L MCV 80.2 MCH 25.3 L MCHC 31.6 L RDW 19.2 H Plt Count 345 D MPV 8.8 Absolute Neuts (auto) 3.0 Neutrophils % 76.7 Lymphocytes % 7.8 L Monocytes % 12.9 H Eosinophils % 2.0 Basophils % 0.6 Nucleated RBC % 0 Sodium Potassium Chloride Carbon Dioxide Anion Gap BUN Creatinine Est GFR (CKD-EPI)AfAm Est GFR (CKD-EPI)NonAf POC Glucometer 148 132 Random Glucose Calcium Total Bilirubin AST ALT Alkaline Phosphatase Total Protein Albumin 06/04/19 06/04/19 06/04/19 07:20 12:34 17:50 WBC RBC Hgb Hct MCV MCH MCHC RDW Plt Count MPV Absolute Neuts (auto) Neutrophils % Lymphocytes % Monocytes % Eosinophils % Basophils % Nucleated RBC % Sodium 136 Potassium 4.5 Chloride 100 Carbon Dioxide 28 Anion Gap 9 BUN 26.9 H Creatinine 0.9 Est GFR (CKD-EPI)AfAm 114.21 Est GFR (CKD-EPI)NonAf 98.54 POC Glucometer 174 142 Random Glucose 150 H Calcium 8.5 Total Bilirubin 0.4 AST 25 ALT 20 Alkaline Phosphatase 153 H Total Protein 7.0 Albumin 2.2 L Active Medications Generic Name Dose Route Start Last Admin Trade Name Freq PRN Reason Stop Dose Admin Acetaminophen 650 mg 06/02/19 00:22 06/04/19 12:39 Tylenol Oral Solution - GT 650 mg Q6H PRN Administration Fever Or Pain Amino Acids 30 ml 06/02/19 08:00 06/04/19 18:44 Prosource No Carb Liquid Pkt PO Not Given BID@0800,1730 [facility] Apixaban 5 mg 06/02/19 10:00 06/04/19 09:20 Eliquis - PEG 5 mg BID [facility] Administration Atorvastatin Calcium 40 mg 06/02/19 22:00 06/03/19 23:04 Lipitor - PO 40 mg HS [facility] Administration Diltiazem HCl 30 mg 06/02/19 06:00 06/04/19 15:46 Cardizem - PO Not Given TID [facility] Docusate Sodium 200 mg 06/02/19 00:22 Colace Liquid - GT DAILY PRN CONSTIPATION Ferrous Sulfate 300 mg 06/02/19 10:00 06/04/19 09:21 Feosol NGT 300 mg BID [facility] Administration Furosemide 40 mg 06/02/19 10:00 06/04/19 09:21 Lasix Oral Solution - NGT 40 mg DAILY [facility] Administration Insulin Aspart 1 vial 06/02/19 07:00 06/04/19 17:52 Novolog Vial Sliding Scale - SQ Not Given [facility] Protocol Insulin Detemir 18 units 06/02/19 07:00 06/04/19 07:02 Levemir Vial SQ 18 unit AM [facility] Administration Lisinopril 10 mg 06/02/19 10:00 06/04/19 09:20 Prinivil NGT 10 mg DAILY [facility] Administration Metoprolol Tartrate 25 mg 06/02/19 06:00 06/04/19 15:40 Lopressor - GT 25 mg TID [facility] Administration Nystatin 500,000 units 06/02/19 06:00 06/04/19 18:43 Nystatin Oral Suspension - PO 500,000 units Q6HPO [facility] Administration Pantoprazole Sodium 40 mg 06/02/19 10:00 06/04/19 09:20 Protonix - PO 40 mg DAILY [facility] Administration Polyethylene Glycol 17 gm 06/02/19 10:00 06/04/19 09:21 Miralax (For Daily Use) - GT 17 grams DAILY [facility] Administration Senna 8.8 mg 06/02/19 22:00 06/04/19 00:52 Senna Oral Solution - GT 8.8 mg HS [facility] Administration Tamsulosin HCl 0.4 mg 06/04/19 12:10 Flomax - PO DAILY@0830 [facility] Thiamine HCl 200 mg 06/03/19 10:00 06/04/19 09:20 Vitamin B1 - PO 200 mg DAILY [facility] Administration ASSESSMENT/PLAN: 53 y/o/m with PMHx of DM2, HFpEF(last EF: 45-50%), 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 #Acute Hypoxic and Hypercapneic Respiratory Failure; 2/2 Acute diastolic CHF vs. PNA -Intubated upon admission, extubated 05/09; then re-intubated 05/13/19; s/p trach . - started tube feeds and continuing IVIg per neuro recs (Dr. Fuentes). -c/w AC - transferred to floors - continue monitoring off abx -Cont vent support and wean FiO2 as tolerated. daily trials of extubation. - pt status on exam is improving on IVIG. - ortiz in place for acute urinary retention #Cardiogenic Shock; 2/2 Acute Diastolic CHF vs. Septic Shock. Unclear etiology. -Resolved -ECHO- EF of 55-60%, no significant abnormalities noted, no vegetations. -Per cardio, recommend cardiac MRI as outpatient to assess sarcoidosis involvement. #Altered mental status and weakness; 2/2 ? Critical care induced myopathy -Neuro Consulted (Dr. Pleitez), Dr. 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 Pt subsequently started on IVIg today. -Bedside EMG shows no evidence of myopathy, but cannot rule out myopathic process. -EEG(05/16/19): abnl EEG, nonspecific finding of diffuse encephalopathy - c/w IVIG 5th dose tomorrow - pt improved auditory ability with PMV and will continue to assess daily #Atrial Flutter w/ RVR -Cont with Cardizem 30 TID GT and Lopressor 25 TID GT (Dilt drip, Digoxin previously discontinued) -Heparin drip on hold initially due to bleeding around trach site, G-tube placed today. #RYNE on CKD w/ hyperkalemia; Improved Cr, K improving -Nephro consulted -Cont Lisinopril 10mg QD given his improved renal function #DM2 -BGM/ISS ACHS -Inc Levemir to 18 U AM given glucose has been in 200's-300's after G tube placement and initiation of feeds. #FEN -free water fluid via NG tube -monitor and replete lytes as needed -Nephro feeds #Prophylaxis -Eliquis 5 BID -Protonix 40 daily Dispo: [facility] accepted pt will likely be dc'd tomorrow. Visit type - Emergency Visit Emergency Visit: Yes ED Registration Date: 04/30/19 Care time: The patient presented to the Emergency Department on the above date and was hospitalized for further evaluation of their emergent condition. - New Patient This patient is new to me today: No - Critical Care Critical Care patient: No - Discharge Referral Referred to [facility] No ATTENDING PHYSICIAN STATEMENT I saw and evaluated the patient. I reviewed the resident's note and discussed the case with the resident. I agree with the resident's findings and plan as documented. SUBJECTIVE: OBJECTIVE: ASSESSMENT AND PLAN:
[2019-06-04] MEDS: ATORVASTATIN CA 40 MG TABLET (FP) PO SCH (23:44)
[2019-06-05] MEDS ORDERED: PT OWN MED DRAWER 7, Y5N ONE ×6 (01:33→21:43)
[2019-06-05] MEDS: NYSTATIN 500,000 UNITS/5 ML SUSPENSION PO SCH ×3 (07:09→17:28)
[2019-06-05] MEDS: METOPROLOL TARTRATE 25 MG TABLET (FP) GT SCH ×3 (07:09→21:52)
[2019-06-05] MEDS: dilTIAZem HCL 30 MG TABLET (FP) PO SCH ×3 (07:12→21:52)
[2019-06-05] MEDS: INSULIN SLIDING SCALE (NOVOLOG) 1 VIAL SQ SCH ×4 (07:16→22:05)
[2019-06-05 08:17] LABS: BASO % 0.8 % (0-2.0); EOS % 1.8 % (0-4.5); HEMATOCRIT 32.1 % (35.4-49); HEMOGLOBIN 10.1 GM/dL (11.7-16.9); LYMPH % 8.7 % (8-40); MCH 25.4 pg (25.7-33.7); MCHC 31.5 g/dl (32.0-35.9); MEAN CELL VOLUME 80.6 fl (80-96); MEAN PLT VOLUME 8.6 fl (7.5-11.1); NEUT % 69.7 % (42.8-82.8); PLATELET COUNT 357 K/MM3 (134-434); RBC 3.98 M/mm3 (4.00-5.60); WHITE BLOOD COUNT 4.1 K/mm3 (4.0-10.0)
[2019-06-05] MEDS: INSULIN (LEVEMIR) 100 UNITS/ML UNITS SQ SCH (08:19)
[2019-06-05] MEDS ORDERED: TAMSULOSIN HCL 0.4 MG CAP PO SCH (08:30)
[2019-06-05 09:01] LABS: ALBUMIN 2.1 g/dl (3.4-5.0); BILIRUBIN,TOTAL 0.6 mg/dL (0.2-1); BLOOD UREA NITROGEN 24.4 mg/dL (7-18); CALCIUM 8.9 mg/dL (8.5-10.1); CREATININE 0.9 mg/dL (0.55-1.3); POTASSIUM 4.2 mmol/L (3.5-5.1); TOT PROT 6.8 g/dl (6.4-8.2)
[2019-06-05] MEDS: AMINO ACIDS/PROTEIN HYDROLYS 30 ML LIQUID.PKT PO SCH ×2 (09:17→17:23)
[2019-06-05] MEDS: LISINOPRIL 10 MG TABLET (FP) NGT SCH (09:17)
[2019-06-05] MEDS: POLYETHYLENE GLYCOL 3350 119 GM BTL GT SCH (09:17)
[2019-06-05] MEDS: TAMSULOSIN HCL 0.4 MG CAP PO SCH (09:17)
[2019-06-05] MEDS: FERROUS SO4 300 MG/5 ML ORAL SOLN UNIT DOSE CUPS NGT SCH ×2 (09:17→21:53)
[2019-06-05] MEDS: APIXABAN 5 MG TABLET PEG SCH ×2 (09:17→21:52)
[2019-06-05] MEDS: PANTOPRAZOLE 40 MG TABLET PO SCH (09:17)
[2019-06-05] MEDS: THIAMINE HCL 100 MG TABLET (FP) PO SCH (09:17)
--- NOTE | 2019-06-05 10:34 | PN ---
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, Physician History of Present Illness: s/p tracheostomy resting on vent, PEG, tolerating PMV trials. Aflutter with improved rate response. 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 Strength improving, tolerated MBS, started dysphagia diet. - Current Medication List Current Medications: Active Medications Acetaminophen (Tylenol Oral Solution -) 650 mg GT Q6H PRN PRN Reason: Fever Or Pain Last Admin: 06/04/19 12:39 Dose: 650 mg Amino Acids (Prosource No Carb Liquid Pkt) 30 ml PO BID@0800,1730 [facility] Last Admin: 06/05/19 09:17 Dose: 30 ml Apixaban (Eliquis -) 5 mg PEG BID [facility] Last Admin: 06/05/19 09:17 Dose: 5 mg Atorvastatin Calcium (Lipitor -) 40 mg PO HS [facility] Last Admin: 06/04/19 23:44 Dose: 40 mg Diltiazem HCl (Cardizem -) 30 mg PO TID [facility] Last Admin: 06/05/19 07:12 Dose: 30 mg Docusate Sodium (Colace Liquid -) 200 mg GT DAILY PRN PRN Reason: CONSTIPATION Ferrous Sulfate (Feosol) 300 mg NGT BID [facility] Last Admin: 06/05/19 09:17 Dose: 300 mg Furosemide (Lasix Oral Solution -) 40 mg NGT DAILY [facility] Last Admin: 06/04/19 09:21 Dose: 40 mg Insulin Aspart (Novolog Vial Sliding Scale -) 1 vial SQ ACHS [facility]; Protocol Last Admin: 06/05/19 07:16 Dose: Not Given Insulin Detemir (Levemir Vial) 18 units SQ AM [facility] Last Admin: 06/05/19 08:19 Dose: Not Given Lisinopril (Prinivil) 10 mg NGT DAILY [facility] Last Admin: 06/05/19 09:17 Dose: 10 mg Metoprolol Tartrate (Lopressor -) 25 mg GT TID [facility] Last Admin: 06/05/19 07:09 Dose: 25 mg Nystatin (Nystatin Oral Suspension -) 500,000 units PO Q6HPO [facility] Last Admin: 06/05/19 07:09 Dose: 500,000 units Pantoprazole Sodium (Protonix -) 40 mg PO DAILY [facility] Last Admin: 06/05/19 09:17 Dose: 40 mg Polyethylene Glycol (Miralax (For Daily Use) -) 17 gm GT DAILY [facility] Last Admin: 06/05/19 09:17 Dose: 17 grams Senna (Senna Oral Solution -) 8.8 mg GT HS [facility] Last Admin: 06/04/19 23:45 Dose: 8.8 mg Tamsulosin HCl (Flomax -) 0.4 mg PO DAILY@0830 [facility] Last Admin: 06/05/19 09:17 Dose: 0.4 mg Thiamine HCl (Vitamin B1 -) 200 mg PO DAILY [facility] Last Admin: 06/05/19 09:17 Dose: 200 mg - Objective Vital Signs: Vital Signs Temperature 98.5 F 06/05/19 09:44 Pulse Rate 75 06/05/19 09:44 Respiratory Rate 16 06/05/19 09:44 Blood Pressure 106/59 L 06/05/19 09:44 O2 Sat by Pulse Oximetry (%) 95 06/05/19 09:35 Constitutional: Yes: No Distress, Calm Neck: Yes: Supple, Other (Tracheostomy) Cardiovascular: Yes: Regular Rate and Rhythm Respiratory: Yes: Regular, Diminished, Mechanically Ventilated, Rhonchi Gastrointestinal: Yes: Normal Bowel Sounds, Soft, Abdomen, Obese, Other (PEG in place) Genitourinary: Yes: Andrews Present Edema: No Labs: CBC, BMP 06/05/19 07:40 06/05/19 07:40 INR, PTT INR 1.05 (0.83-1.09) 05/24/19 06:00 Problem List - Problems (1) Pneumonia Code(s): J18.9 - PNEUMONIA, UNSPECIFIED ORGANISM Qualifiers: Pneumonia type: due to unspecified organism (2) Acute hypercapnic respiratory failure due to obstructive sleep apnea Code(s): J96.02 - ACUTE RESPIRATORY FAILURE WITH HYPERCAPNIA; G47.33 - OBSTRUCTIVE SLEEP APNEA (ADULT) (PEDIATRIC) (3) Acute decompensated heart failure Code(s): I50.9 - HEART FAILURE, UNSPECIFIED (4) Sarcoidosis of other sites Code(s): D86.89 - SARCOIDOSIS OF OTHER SITES (5) Type 2 diabetes mellitus Code(s): E11.9 - TYPE 2 DIABETES MELLITUS WITHOUT COMPLICATIONS Qualifiers: 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 Acute hypoxic and hypercapneic respiratory failure currently on mechanical ventilation via tracheostomy 2. Post pneumonia, septic shock, Gram Positive Bacteremia, lactic acidosis and ARDS 3. Sarcoidosis confirmed by skin biopsy 4. OSAS nonadherent to CPAP 5. Persistent Aflutter/Afib rate-controlled 6. Acute on chronic diastolic heart failure 7. Acute on CKD with hyperkalemia 8. Type 2 DM 9. Anemia 10. 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 s/p trial of IVIG, bronchodilator and enteral feeds with trial of dysphagia diet per S&S 2. Vent wean, SBT, PMV trials with goal of trach collar during day, CPAP/PS at night 3. Rate-control with uptitrate oral Lopressor 25 mg TID and Cardizem 30 mg TID as hemodynamics tolerate, IV Cardizem and Lopressor as needed and continue Eliquis 5 mg BID 4. Lasix 40 QD (NGT) as needed with monitor renal function and electrolytes 5. Continue lisinopril 10 mg QD and Lipitor 40 QD 6. Follow up with Dr. Genaro Davila (cardiology at [place]) as outpatient. Consider cardiac PET or MRI to exclude cardiac involvement in sarcoidosis as outpatient
--- NOTE | 2019-06-05 10:57 | PN ---
Teaching Attending Note Name of Resident: Giuseppe Rm ATTENDING PHYSICIAN STATEMENT I saw and evaluated the patient. I reviewed the resident's note and discussed the case with the resident. I agree with the resident's findings and plan as documented. SUBJECTIVE: Awake, speaking, being fed. Feels well, no complaints. OBJECTIVE: Afebrile, Hemodynamically Stable. Comfortable. Last Vital Signs Temp Pulse Resp BP Pulse Ox 98.5 F 75 16 106/59 L 95 06/05/19 09:44 06/05/19 09:44 06/05/19 09:44 06/05/19 09:44 06/05/19 09:35 HEENT: s/p Trach to Vent. Making eye contact, following commands, speaking HEART: S1, S2, RRR LUNGS: good air entry bilaterally ABDOMEN: High BMI, soft, non-tender, non-distended, normal BS. PEG in situ. EXTREMITIES: Trace edema, no calf tenderness. Neuro: Awake, Alert, following commands. Power much improved 4/5 all extremities. Laboratory Results - last 24 hr 06/04/19 06/04/19 06/04/19 12:34 17:50 23:41 WBC RBC Hgb Hct MCV MCH MCHC RDW Plt Count MPV Absolute Neuts (auto) Neutrophils % Lymphocytes % Monocytes % Eosinophils % Basophils % Nucleated RBC % Sodium Potassium Chloride Carbon Dioxide Anion Gap BUN Creatinine Est GFR (CKD-EPI)AfAm Est GFR (CKD-EPI)NonAf POC Glucometer 174 142 120 Random Glucose Calcium Total Bilirubin AST ALT Alkaline Phosphatase Total Protein Albumin 06/05/19 06/05/19 06/05/19 07:15 07:40 07:40 WBC 4.1 RBC 3.98 L Hgb 10.1 L Hct 32.1 L MCV 80.6 MCH 25.4 L MCHC 31.5 L RDW 19.0 H Plt Count 357 MPV 8.6 Absolute Neuts (auto) 2.9 Neutrophils % 69.7 Lymphocytes % 8.7 Monocytes % 19.0 H Eosinophils % 1.8 Basophils % 0.8 Nucleated RBC % 0 Sodium 138 Potassium 4.2 Chloride 101 Carbon Dioxide 30 Anion Gap 7 L BUN 24.4 H Creatinine 0.9 Est GFR (CKD-EPI)AfAm 114.21 Est GFR (CKD-EPI)NonAf 98.54 POC Glucometer 82 Random Glucose 89 Calcium 8.9 Total Bilirubin 0.6 AST 20 ALT 20 Alkaline Phosphatase 108 Total Protein 6.8 Albumin 2.1 L Current Medications Generic Name Dose Route Start Last Admin Trade Name Freq PRN Reason Stop Dose Admin Acetaminophen 650 mg 06/02/19 00:22 06/04/19 12:39 Tylenol Oral Solution - GT 650 mg Q6H PRN Administration Fever Or Pain Amino Acids 30 ml 06/02/19 08:00 06/05/19 09:17 Prosource No Carb Liquid Pkt PO 30 ml BID@0800,1730 [facility] Administration Apixaban 5 mg 06/02/19 10:00 06/05/19 09:17 Eliquis - PEG 5 mg BID [facility] Administration Atorvastatin Calcium 40 mg 06/02/19 22:00 06/04/19 23:44 Lipitor - PO 40 mg HS [facility] Administration Diltiazem HCl 30 mg 06/02/19 06:00 06/05/19 07:12 Cardizem - PO 30 mg TID [facility] Administration Docusate Sodium 200 mg 06/02/19 00:22 Colace Liquid - GT DAILY PRN CONSTIPATION Ferrous Sulfate 300 mg 06/02/19 10:00 06/05/19 09:17 Feosol NGT 300 mg BID [facility]SA Administration Furosemide 40 mg 06/02/19 10:00 06/04/19 09:21 Lasix Oral Solution - NGT 40 mg DAILY [facility] Administration Insulin Aspart 1 vial 06/02/19 07:00 06/05/19 07:16 Novolog Vial Sliding Scale - SQ Not Given ACHS [facility] Protocol Insulin Detemir 18 units 06/02/19 07:00 06/05/19 08:19 Levemir Vial SQ Not Given AM [facility] Lisinopril 10 mg 06/02/19 10:00 06/05/19 09:17 Prinivil NGT 10 mg DAILY [facility] Administration Metoprolol Tartrate 25 mg 06/02/19 06:00 06/05/19 07:09 Lopressor - GT 25 mg TID [facility] Administration Nystatin 500,000 units 06/02/19 06:00 06/05/19 07:09 Nystatin Oral Suspension - PO 500,000 units Q6HPO [facility] Administration Pantoprazole Sodium 40 mg 06/02/19 10:00 06/05/19 09:17 Protonix - PO 40 mg DAILY [facility] Administration Polyethylene Glycol 17 gm 06/02/19 10:00 06/05/19 09:17 Miralax (For Daily Use) - GT 17 grams DAILY [facility] Administration Senna 8.8 mg 06/02/19 22:00 06/04/19 23:45 Senna Oral Solution - GT 8.8 mg HS [facility] Administration Tamsulosin HCl 0.4 mg 06/04/19 12:10 06/05/19 09:17 Flomax - PO 0.4 mg DAILY@0830 [facility] Administration Thiamine HCl 200 mg 06/03/19 10:00 06/05/19 09:17 Vitamin B1 - PO 200 mg DAILY [facility] Administration Home Medications Medication Instructions Recorded Amiodarone HCl 200 mg PO DAILY 04/30/19 Apixaban [Eliquis] 5 mg PO BID 04/30/19 Diltiazem Cd [Cardizem Cd -] 300 mg PO DAILY 04/30/19 Furosemide 40 mg PO BID 04/30/19 Glipizide 10 mg PO DAILY 04/30/19 Lisinopril 10 mg PO DAILY 04/30/19 Metformin HCl [Glucophage] 1,000 mg PO BID 04/30/19 Sitagliptin Phosphate [Januvia] 100 mg PO DAILY 04/30/19 ASSESSMENT AND PLAN: 53 year old male with Obesity, DM 2, Sarcoidosis, Hx Systolic CHF (EF 45-50%, now EF normal), EMMY (non-adherent with CPAP), and Atrial Flutter presented with sudden onset of shortness of breath, requiring intubation and mechanical ventilation, with prolonged hospitalization. 1. Acute Hypoxic and Hypercapneic Respiratory Failure secondary to Acute Diastolic CHF +/- PNA Extubated 05/09/19 and re-intubated 05/13/19 s/p Trach 05/22 Completed period of IV Lasix diuresis (EF previously 45%, now EF normal) and antibiotic course for PNA (ESBL-positive sputum). On maintenance dose Lasix 40mg. MBS done - recommendation by ST for dysphagia ground diet with nectar thick liquids; PMV with cuff deflated at mealtimes, feeds via PEG at night to supplement. Vent weaning trials as per Pulm. 2. Cardiogenic Shock sec to Acute Diastolic CHF vs Septic Shock sec to PNA, etiology unclear - resolved, off pressors. Weaned off Levophed and Vasopressin Blood Cx - Staph epi, likely contaminant. Echo - no vegetations. Repeat Blood Cx neg x 2. Another set Blood Cx pending due to recurrence of fever. Completed Meropenem for ESBL Pneumonia BP rebounded well - tolerating Metoprolol, Diltiazem, and Lisinopril. Cardiology following - for out-patient Cardiac MRI to assess degree of sarcoid involvement. 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 Responding well - now able to speak, move arms/legs (previously unable to) Dispo to SNF for vent management and ongoing Rehab for functional recovery 4. Atrial flutter with RVR - resolved - now rate controlled on Metoprolol and Diltiazem. Digoxin stopped. On Eliquis via PEG. 5. RYNE with Hyperkalemia - likely secondary to Cardiorenal phenomenon, resolved. Nephrology following. Lisinopril, Lasix resumed. 6. Hx Sarcoidosis - Pulm follow up on discharge. 7. DM 2 - Insulin drip transitioned to Detemir/Novolog as per sliding scale. 8. Iron Deficiency Anemia - FeSO4 supplementation. No evidence of active blood loss. For out-patient Ix. DVT Px - on Eliquis GI Px - Protonix. Nutrition - Oral and PEG feeds. Dispo - awaiting authorization for SNF.
--- NOTE | 2019-06-05 11:46 | PN ---
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 Selected Entries 06/04/19 06/04/19 06/04/19 02:00 06:00 14:00 Diet Tolerated Supper Wound Type [ Left Buttocks] Wound Type [ Right Lower Buttocks] Wound Type [ Sacrum] Temperature 99.0 F 98.7 F 98.9 F Blood Pressure 141/69 124/67 114/59 L 06/04/19 06/04/19 06/04/19 15:15 18:00 22:00 Diet Tolerated Fair Supper 50% Wound Type [ Left Buttocks] Wound Type [ Right Lower Buttocks] Wound Type [ Sacrum] Temperature 98.0 F 98.1 F Blood Pressure 126/72 131/86 129/78 06/05/19 06/05/19 06/05/19 02:00 06:00 09:44 Diet Tolerated Supper Wound Type [ Left Buttocks] Wound Type [ Right Lower Buttocks] Wound Type [ Sacrum] Temperature 99.0 F 98.5 F 98.5 F Blood Pressure 125/73 115/81 106/59 L 06/05/19 10:00 Diet Tolerated Fair Supper 50% Wound Type [ Pressure Injury Left Buttocks] Wound Type [ Pressure Injury Right Lower Buttocks] Wound Type [ Pressure Injury Sacrum] Temperature Blood Pressure Laboratory Tests 06/04/19 06/04/19 06/04/19 06:59 07:20 07:20 WBC 4.0 POC Glucometer 132 Random Glucose 150 H 06/05/19 06/05/19 06/05/19 07:15 07:40 07:40 WBC 4.1 POC Glucometer 82 Random Glucose 89 Pt did quite well with MBS, (-) aspiration. Tolerating Dys chopped/nectar, taking about 50%.PMV usede meantime with good tolerance. TF order clarification requested. TF held last night because order not in EMR once PO diet ordered. Blood sugars noted this am. Also, PEG tube needed to be toumeyed. Needs to be flushed to maintain function. Suggest +RD consult to assist in weaning from PEG. Suggest Continue Dys ground, add 1-2 soft items per tray. Supplements PO- Diabetic- Ensure pudding bid Pt with pressure ulcer- Continue Prosource? Continue TF nocturnally Flush PEG daytime to maintain function Communication board given with good affect. Now able to use board to point to letters/words, when PMV is off and he can not be understood. Maintain call josue accessibility/ communication near pt Increase PMV as tolerated to enable communication and weaning from Ventilator. Rest time to reduce fatigue.
--- NOTE | 2019-06-05 12:18 | PN ---
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 (short form) - Note 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: PULMONARY Vented, awake. Moving all extremities. No fevers recorded. Tolerating SIMV. Vital Signs Period Temp Pulse Resp BP Sys/[place] Pulse Ox Last 24 Hr 98.0 F-99.0 F 50-95 12-23 106-131/59-86 95-100 Gen: vented, awake Heart: irregular Lung: scattered rhonchi Abd: soft, nontender Ext: trace edema CBC, BMP 06/05/19 07:40 06/05/19 07:40 Active Medications Acetaminophen (Tylenol Oral Solution -) 650 mg GT Q6H PRN PRN Reason: Fever Or Pain Last Admin: 06/04/19 12:39 Dose: 650 mg Amino Acids (Prosource No Carb Liquid Pkt) 30 ml PO BID@0800,1730 [facility] Last Admin: 06/05/19 09:17 Dose: 30 ml Apixaban (Eliquis -) 5 mg PEG BID [facility] Last Admin: 06/05/19 09:17 Dose: 5 mg Atorvastatin Calcium (Lipitor -) 40 mg PO HS [facility] Last Admin: 06/04/19 23:44 Dose: 40 mg Diltiazem HCl (Cardizem -) 30 mg PO TID [facility] Last Admin: 06/05/19 07:12 Dose: 30 mg Docusate Sodium (Colace Liquid -) 200 mg GT DAILY PRN PRN Reason: CONSTIPATION Ferrous Sulfate (Feosol) 300 mg NGT BID [facility] Last Admin: 06/05/19 09:17 Dose: 300 mg Furosemide (Lasix Oral Solution -) 40 mg NGT DAILY [facility] Last Admin: 06/04/19 09:21 Dose: 40 mg Insulin Aspart (Novolog Vial Sliding Scale -) 1 vial SQ ACHS [facility]; Protocol Last Admin: 06/05/19 12:06 Dose: Not Given Insulin Detemir (Levemir Vial) 14 units SQ AM [facility] Lisinopril (Prinivil) 10 mg NGT DAILY [facility] Last Admin: 06/05/19 09:17 Dose: 10 mg Metoprolol Tartrate (Lopressor -) 25 mg GT TID [facility] Last Admin: 06/05/19 07:09 Dose: 25 mg Nystatin (Nystatin Oral Suspension -) 500,000 units PO Q6HPO [facility] Last Admin: 06/05/19 07:09 Dose: 500,000 units Pantoprazole Sodium (Protonix -) 40 mg PO DAILY [facility] Last Admin: 06/05/19 09:17 Dose: 40 mg Polyethylene Glycol (Miralax (For Daily Use) -) 17 gm GT DAILY [facility] Last Admin: 06/05/19 09:17 Dose: 17 grams Senna (Senna Oral Solution -) 8.8 mg GT HS [facility] Last Admin: 06/04/19 23:45 Dose: 8.8 mg Tamsulosin HCl (Flomax -) 0.4 mg PO DAILY@0830 [facility] Last Admin: 06/05/19 09:17 Dose: 0.4 mg Thiamine HCl (Vitamin B1 -) 200 mg PO DAILY [facility] Last Admin: 06/05/19 09:17 Dose: 200 mg A/P Acute Hypoxic and Hypercapneic Respiratory Failure s/p tracheostomy Pneumonia Gram Positive Bacteremia Septic Shock resolved Lactic Acidosis resolved ARDS resolved Paroxysmal Atrial Fluter with RVR Acute on Chronic Diastolic Heart Failure Acute on Chronic Renal Failure r/o Guillian [place] Syndrome DM Anemia Sarcoidosis - s/p IVIG - completed antibiotics - rate control - continue anticoagulation - continue lasix - monitor urine output, creatinine - daily PMV trials - spontaneous breathing trials as tolerated with goal of trach collar during day, CPAP/PS at night - enteral feeds - DVT/GI prophylaxis
[2019-06-05] MEDS: FUROSEMIDE 40 MG/5 ML UNIT-DOSE CUP NGT SCH (13:12)
--- NOTE | 2019-06-05 13:48 | PN ---
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, Physician History of Present Illness: Pt seen and examined at bedside. He is able to speak. He says he is feeling better. He is able to move all extremities. He will eat food today. - Current Medication List Current Medications: Active Medications Acetaminophen (Tylenol Oral Solution -) 650 mg GT Q6H PRN PRN Reason: Fever Or Pain Last Admin: 06/04/19 12:39 Dose: 650 mg Amino Acids (Prosource No Carb Liquid Pkt) 30 ml PO BID@0800,1730 [facility] Last Admin: 06/05/19 09:17 Dose: 30 ml Apixaban (Eliquis -) 5 mg PEG BID [facility] Last Admin: 06/05/19 09:17 Dose: 5 mg Atorvastatin Calcium (Lipitor -) 40 mg PO HS [facility] Last Admin: 06/04/19 23:44 Dose: 40 mg Diltiazem HCl (Cardizem -) 30 mg PO TID [facility] Last Admin: 06/05/19 13:12 Dose: 30 mg Docusate Sodium (Colace Liquid -) 200 mg GT DAILY PRN PRN Reason: CONSTIPATION Ferrous Sulfate (Feosol) 300 mg NGT BID [facility] Last Admin: 06/05/19 09:17 Dose: 300 mg Furosemide (Lasix Oral Solution -) 40 mg NGT DAILY [facility] Last Admin: 06/05/19 13:12 Dose: 40 mg Insulin Aspart (Novolog Vial Sliding Scale -) 1 vial SQ ACHS [facility]; Protocol Last Admin: 06/05/19 12:06 Dose: Not Given Insulin Detemir (Levemir Vial) 14 units SQ AM [facility] Lisinopril (Prinivil) 10 mg NGT DAILY [facility] Last Admin: 06/05/19 09:17 Dose: 10 mg Metoprolol Tartrate (Lopressor -) 25 mg GT TID [facility] Last Admin: 06/05/19 13:12 Dose: 25 mg Nystatin (Nystatin Oral Suspension -) 500,000 units PO Q6HPO [facility] Last Admin: 06/05/19 12:10 Dose: 500,000 units Pantoprazole Sodium (Protonix -) 40 mg PO DAILY [facility] Last Admin: 06/05/19 09:17 Dose: 40 mg Polyethylene Glycol (Miralax (For Daily Use) -) 17 gm GT DAILY [facility] Last Admin: 06/05/19 09:17 Dose: 17 grams Senna (Senna Oral Solution -) 8.8 mg GT HS [facility] Last Admin: 06/04/19 23:45 Dose: 8.8 mg Tamsulosin HCl (Flomax -) 0.4 mg PO DAILY@0830 [facility] Last Admin: 06/05/19 09:17 Dose: 0.4 mg Thiamine HCl (Vitamin B1 -) 200 mg PO DAILY [facility] Last Admin: 06/05/19 09:17 Dose: 200 mg - Objective Vital Signs: Vital Signs Temperature 98.6 F 06/05/19 13:11 Pulse Rate 92 H 06/05/19 13:11 Respiratory Rate 06/05/19 13:11 Blood Pressure 137/70 06/05/19 13:11 O2 Sat by Pulse Oximetry (%) 100 06/05/19 11:50 Constitutional: Yes: Calm Eyes: Yes: Conjunctiva Clear HENT: Yes: Atraumatic Cardiovascular: Yes: S1, S2 Respiratory: Yes: Other (has trache) Genitourinary: Yes: Andrews Present Musculoskeletal: Yes: Muscle Weakness Edema: Yes Edema: LLE: Trace, RLE: Trace Neurological: Yes: Oriented Psychiatric: Yes: Oriented Labs: CBC, BMP 06/05/19 07:40 06/05/19 07:40 INR, PTT INR 1.05 (0.83-1.09) 05/24/19 06:00 Problem List - Problems (1) Acute decompensated heart failure Code(s): I50.9 - HEART FAILURE, UNSPECIFIED (2) Atrial fibrillation and flutter Code(s): I48.91 - UNSPECIFIED ATRIAL FIBRILLATION; I48.92 - UNSPECIFIED ATRIAL FLUTTER (3) Hyperkalemia Code(s): E87.5 - HYPERKALEMIA (4) Pneumonia Code(s): J18.9 - PNEUMONIA, UNSPECIFIED ORGANISM Qualifiers: Pneumonia type: due to unspecified organism (5) Sarcoidosis of other sites Code(s): D86.89 - SARCOIDOSIS OF OTHER SITES Assessment/Plan Current Medications Generic Name Dose Route Start Last Admin Trade Name Freq PRN Reason Stop Dose Admin Acetaminophen 650 mg 06/02/19 00:22 06/04/19 12:39 Tylenol Oral Solution - GT 650 mg Q6H PRN Administration Fever Or Pain Amino Acids 30 ml 06/02/19 08:00 06/05/19 09:17 Prosource No Carb Liquid Pkt PO 30 ml BID@0800,1730 [facility] Administration Apixaban 5 mg 06/02/19 10:00 06/05/19 09:17 Eliquis - PEG 5 mg BID [facility] Administration Atorvastatin Calcium 40 mg 06/02/19 22:00 06/04/19 23:44 Lipitor - PO 40 mg HS [facility] Administration Diltiazem HCl 30 mg 06/02/19 06:00 06/05/19 13:12 Cardizem - PO 30 mg TID [facility] Administration Docusate Sodium 200 mg 06/02/19 00:22 Colace Liquid - GT DAILY PRN CONSTIPATION Ferrous Sulfate 300 mg 06/02/19 10:00 06/05/19 09:17 Feosol NGT 300 mg BID [facility] Administration Furosemide 40 mg 06/02/19 10:00 06/05/19 13:12 Lasix Oral Solution - NGT 40 mg DAILY [facility] Administration Insulin Aspart 1 vial 06/02/19 07:00 06/05/19 12:06 Novolog Vial Sliding Scale - SQ Not Given ACHS [facility] Protocol Insulin Detemir 14 units 06/06/19 07:00 Levemir Vial SQ AM [facility] Lisinopril 10 mg 06/02/19 10:00 06/05/19 09:17 Prinivil NGT 10 mg DAILY [facility] Administration Metoprolol Tartrate 25 mg 06/02/19 06:00 06/05/19 13:12 Lopressor - GT 25 mg TID [facility] Administration Nystatin 500,000 units 06/02/19 06:00 06/05/19 12:10 Nystatin Oral Suspension - PO 500,000 units Q6HPO [facility] Administration Pantoprazole Sodium 40 mg 06/02/19 10:00 06/05/19 09:17 Protonix - PO 40 mg DAILY [facility] Administration Polyethylene Glycol 17 gm 06/02/19 10:00 06/05/19 09:17 Miralax (For Daily Use) - GT 17 grams DAILY [facility] Administration Senna 8.8 mg 06/02/19 22:00 06/04/19 23:45 Senna Oral Solution - GT 8.8 mg HS [facility] Administration Tamsulosin HCl 0.4 mg 06/04/19 12:10 06/05/19 09:17 Flomax - PO 0.4 mg DAILY@0830 [facility] Administration Thiamine HCl 200 mg 06/03/19 10:00 06/05/19 09:17 Vitamin B1 - PO 200 mg DAILY [facility] Administration Impression 1. RYNE 2. hyperkalemia 3. resp failure requiring intubation 4. resp acidosis 5. dm 6. hx htn 7. sleep apnea 8. obesity 9. hx non compliance 10. chf 11. sarcoid 12. volume overload 13. hypernatremia Plan - cont with lasix and monitor volume status - repeat labs in am - pt will start po diet - monitor lytes - pulm follow up for weaning
--- NOTE | 2019-06-05 15:14 | PN ---
Physical Exam: SUBJECTIVE: Patient seen and examined. No acute events overnight. Patient continues to improve, makes effort to speak and is able to move all extremities. Denies pain. OBJECTIVE: Vital Signs Period Temp Pulse Resp BP Sys/[place] Pulse Ox Last 24 Hr 98.0 F-99.0 F 50-92 12-22 106-137/59-86 95-100 GENERAL: The patient is awake, alert, and fully oriented, in no acute distress. HEAD: Normal with no signs of trauma. EYES: EOMI, PERRL NECK: Tracheotomy tube in place LUNGS: Breath sounds equal, clear to auscultation bilaterally, no wheezes, no crackles, no accessory muscle use. HEART: Regular rate and rhythm, S1, S2 without murmur, rub or gallop. ABDOMEN: Soft, nontender, nondistended, normoactive bowel sounds, no guarding EXTREMITIES: 2+ pulses, warm, well-perfused, no edema. NEUROLOGICAL: follows commands, move extremities, speech improving PSYCH: appropriate mood and affect SKIN: Warm, dry, normal turgor, no rashes or lesions noted Laboratory Results - last 24 hr 06/04/19 06/04/19 06/05/19 17:50 23:41 07:15 WBC RBC Hgb Hct MCV MCH MCHC RDW Plt Count MPV Absolute Neuts (auto) Neutrophils % Lymphocytes % Monocytes % Eosinophils % Basophils % Nucleated RBC % Sodium Potassium Chloride Carbon Dioxide Anion Gap BUN Creatinine Est GFR (CKD-EPI)AfAm Est GFR (CKD-EPI)NonAf POC Glucometer 142 120 82 Random Glucose Calcium Total Bilirubin AST ALT Alkaline Phosphatase Total Protein Albumin 06/05/19 06/05/19 06/05/19 07:40 07:40 12:05 WBC 4.1 RBC 3.98 L Hgb 10.1 L Hct 32.1 L MCV 80.6 MCH 25.4 L MCHC 31.5 L RDW 19.0 H Plt Count 357 MPV 8.6 Absolute Neuts (auto) 2.9 Neutrophils % 69.7 Lymphocytes % 8.7 Monocytes % 19.0 H Eosinophils % 1.8 Basophils % 0.8 Nucleated RBC % 0 Sodium 138 Potassium 4.2 Chloride 101 Carbon Dioxide 30 Anion Gap 7 L BUN 24.4 H Creatinine 0.9 Est GFR (CKD-EPI)AfAm 114.21 Est GFR (CKD-EPI)NonAf 98.54 POC Glucometer 126 Random Glucose 89 Calcium 8.9 Total Bilirubin 0.6 AST 20 ALT 20 Alkaline Phosphatase 108 Total Protein 6.8 Albumin 2.1 L Active Medications Generic Name Dose Route Start Last Admin Trade Name Freq PRN Reason Stop Dose Admin Acetaminophen 650 mg 06/02/19 00:22 06/04/19 12:39 Tylenol Oral Solution - GT 650 mg Q6H PRN Administration Fever Or Pain Amino Acids 30 ml 06/02/19 08:00 06/05/19 09:17 Prosource No Carb Liquid Pkt PO 30 ml BID@0800,1730 ELISSA Administration Apixaban 5 mg 06/02/19 10:00 06/05/19 09:17 Eliquis - PEG 5 mg BID ELISSA Administration Atorvastatin Calcium 40 mg 06/02/19 22:00 06/04/19 23:44 Lipitor - PO 40 mg HS ELISSA Administration Diltiazem HCl 30 mg 06/02/19 06:00 06/05/19 13:12 Cardizem - PO 30 mg TID [facility] Administration Docusate Sodium 200 mg 06/02/19 00:22 Colace Liquid - GT DAILY PRN CONSTIPATION Ferrous Sulfate 300 mg 06/02/19 10:00 06/05/19 09:17 Feosol NGT 300 mg BID ELISSA Administration Furosemide 40 mg 06/02/19 10:00 06/05/19 13:12 Lasix Oral Solution - NGT 40 mg DAILY [facility] Administration Insulin Aspart 1 vial 06/02/19 07:00 06/05/19 12:06 Novolog Vial Sliding Scale - SQ Not Given ACHS [facility] Protocol Insulin Detemir 14 units 06/06/19 07:00 Levemir Vial SQ AM [facility] Lisinopril 10 mg 06/02/19 10:00 06/05/19 09:17 Prinivil NGT 10 mg DAILY [facility] Administration Metoprolol Tartrate 25 mg 06/02/19 06:00 06/05/19 13:12 Lopressor - GT 25 mg TID [facility] Administration Nystatin 500,000 units 06/02/19 06:00 06/05/19 12:10 Nystatin Oral Suspension - PO 500,000 units Q6HPO ELISSA Administration Pantoprazole Sodium 40 mg 06/02/19 10:00 06/05/19 09:17 Protonix - PO 40 mg DAILY ELISSA Administration Polyethylene Glycol 17 gm 06/02/19 10:00 06/05/19 09:17 Miralax (For Daily Use) - GT 17 grams DAILY ELISSA Administration Senna 8.8 mg 06/02/19 22:00 06/04/19 23:45 Senna Oral Solution - GT 8.8 mg HS ELISSA Administration Tamsulosin HCl 0.4 mg 06/04/19 12:10 06/05/19 09:17 Flomax - PO 0.4 mg DAILY@0830 ELISSA Administration Thiamine HCl 200 mg 06/03/19 10:00 06/05/19 09:17 Vitamin B1 - PO 200 mg DAILY ELISSA Administration ASSESSMENT/PLAN: 53 y/o/m with PMHx of DM2, HFpEF(last EF: 45-50%), 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 #Acute Hypoxic and Hypercapneic Respiratory Failure - 2/2 Acute diastolic CHF vs. PNA - Intubated upon admission, extubated 05/09; then re-intubated 05/13/19; s/p trach 05/22. - continue monitoring off abx - Cont vent support and wean FiO2 as tolerated - Vent weaning trials as per pulm - pt status on exam is improved s/p IVIG - ortiz in place for acute urinary retention #Cardiogenic Shock - 2/2 Acute Diastolic CHF vs. Septic Shock. Unclear etiology. - Resolved - ECHO- EF of 55-60%, no significant abnormalities noted, no vegetations. - Per cardio, recommend cardiac MRI as outpatient to assess sarcoidosis involvement. #Altered mental status and weakness - 2/2 ? Critical care induced myopathy - Neuro Consulted (Dr. Pleitez) - LP - showing elevated wbc with no wbc's indicating high suspicion for guillan barre syndrome. Pt completed course of IVIG with improvement - Bedside EMG shows no evidence of myopathy, but cannot rule out myopathic process. - EEG(05/16/19): abnl EEG, nonspecific finding of diffuse encephalopathy - IVIG completed - pt improved auditory ability with PMV and will continue to assess daily #Atrial Flutter w/ RVR - Now rate controlled on Metoprolol and Diltiazem - Digoxin stopped - Eliquis for AC #RYNE on CKD w/ hyperkalemia; - BUN/Cr improved - Nephro consulted - Cont Lisinopril 10mg QD given his improved renal function #DM2 - BGM/ISS ACHS - Levemir 14units in AM #FEN - Glucerna tube feeds at night. Dysphagia diet during daytime - monitor and replete lytes as needed #Prophylaxis - Eliquis 5 BID - Protonix 40 daily #Disposition - accepted to [facility], pending D/C waiting on auth from insurance Visit type - Emergency Visit Emergency Visit: Yes ED Registration Date: 04/30/19 Care time: The patient presented to the Emergency Department on the above date and was hospitalized for further evaluation of their emergent condition. - New Patient This patient is new to me today: No - Critical Care Critical Care patient: No ATTENDING PHYSICIAN STATEMENT I saw and evaluated the patient. I reviewed the resident's note and discussed the case with the resident. I agree with the resident's findings and plan as documented. SUBJECTIVE: OBJECTIVE: ASSESSMENT AND PLAN:
[2019-06-05] MEDS: ATORVASTATIN CA 40 MG TABLET (FP) PO SCH (21:52)
[2019-06-05] MEDS: SENNOSIDES 8.8 MG/5 ML BULK BOTTLE GT SCH (21:53)
[2019-06-06] MEDS: NYSTATIN 500,000 UNITS/5 ML SUSPENSION PO SCH ×4 (00:57→17:32)
[2019-06-06] MEDS: dilTIAZem HCL 30 MG TABLET (FP) PO SCH ×4 (05:45→21:39)
[2019-06-06] MEDS: METOPROLOL TARTRATE 25 MG TABLET (FP) GT SCH ×3 (05:46→21:39)
[2019-06-06] MEDS: INSULIN SLIDING SCALE (NOVOLOG) 1 VIAL SQ SCH ×4 (06:12→21:59)
[2019-06-06] MEDS ORDERED: PT OWN MED DRAWER 7, Y5N ONE ×3 (06:19→16:46)
[2019-06-06] MEDS: INSULIN (LEVEMIR) 100 UNITS/ML UNITS SQ SCH (06:22)
[2019-06-06] MEDS: AMINO ACIDS/PROTEIN HYDROLYS 30 ML LIQUID.PKT PO SCH ×2 (08:59→17:32)
--- NOTE | 2019-06-06 09:44 | PN ---
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 (short form) - Note 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: Remains on Vent -Trache, states feels fine, better No cardiac issues, hemodynamically stable CBC WBC 4.1 K/mm3 (4.0-10.0) 06/05/19 07:40 RBC 3.98 M/mm3 (4.00-5.60) L 06/05/19 07:40 Hgb 10.1 GM/dL (11.7-16.9) L 06/05/19 07:40 Hct 32.1 % (35.4-49) L 06/05/19 07:40 MCV 80.6 fl (80-96) 06/05/19 07:40 MCH 25.4 pg (25.7-33.7) L 06/05/19 07:40 MCHC 31.5 g/dl (32.0-35.9) L 06/05/19 07:40 RDW 19.0 % (11.9-15.9) H 06/05/19 07:40 Plt Count 357 K/MM3 (134-434) 06/05/19 07:40 MPV 8.6 fl (7.5-11.1) 06/05/19 07:40 Absolute Neuts (auto) 2.9 K/mm3 (1.5-8.0) 06/05/19 07:40 Total Counted 100 05/03/19 06:10 Neutrophils % 69.7 % (42.8-82.8) 06/05/19 07:40 Neutrophils % (Manual) 92.0 % (42.8-82.8) H 05/14/19 06:05 Band Neutrophils % 0.0 % 05/14/19 06:05 Lymphocytes % 8.7 % (8-40) 06/05/19 07:40 Lymphocytes % (Manual) 2.0 % (8-40) L 05/14/19 06:05 Monocytes % 19.0 % (3.8-10.2) H 06/05/19 07:40 Monocytes % (Manual) 6 % (3.8-10.2) D 05/14/19 06:05 Eosinophils % 1.8 % (0-4.5) 06/05/19 07:40 Eosinophils % (Manual) 0.0 % (0-4.5) 05/14/19 06:05 Basophils % 0.8 % (0-2.0) 06/05/19 07:40 Basophils % (Manual) 0.0 % (0-2.0) 05/14/19 06:05 Myelocytes % (Man) 0 % (0-2) 05/14/19 06:05 Promyelocytes % (Man) 0 % (0-2) 05/14/19 06:05 Blast Cells % (Manual) 0 % (0-0) 05/14/19 06:05 Nucleated RBC % 0 % (0-0) 06/05/19 07:40 Metamyelocytes 0 % (0-2) 05/14/19 06:05 Hypochromia 0 05/25/19 06:00 Toxic Granulation 2+ 05/08/19 06:05 Platelet Estimate Normal 05/25/19 06:00 Platelet Comment Present 05/13/19 10:35 Polychromasia 1+ 05/25/19 06:00 Poikilocytosis 0 05/14/19 06:05 Basophilic Stippling 1+ 05/01/19 05:25 Anisocytosis 1+ 05/25/19 06:00 Microcytosis 0 05/25/19 06:00 Macrocytosis 0 05/25/19 06:00 Spherocytes 1+ 05/13/19 10:35 Target Cells 1+ 05/13/19 10:35 Tear Drop Cells 1+ 05/13/19 10:35 Ovalocytes 1+ 05/08/19 06:05 Stomatocytes 1+ 05/07/19 05:15 [place] Cells 1+ 05/03/19 06:10 Acanthocytes (Spur) 1+ 05/08/19 06:05 Fragmented RBCs 1+ 05/13/19 10:35 CMP Sodium 138 mmol/L (136-145) 06/05/19 07:40 Potassium 4.2 mmol/L (3.5-5.1) 06/05/19 07:40 Chloride 101 mmol/L (98-107) 06/05/19 07:40 Carbon Dioxide 30 mmol/L (21-32) 06/05/19 07:40 Anion Gap 7 MMOL/L (8-16) L 06/05/19 07:40 BUN 24.4 mg/dL (7-18) H 06/05/19 07:40 Creatinine 0.9 mg/dL (0.55-1.3) 06/05/19 07:40 Est GFR (CKD-EPI)AfAm 114.21 06/05/19 07:40 Est GFR (CKD-EPI)NonAf 98.54 06/05/19 07:40 POC Glucometer 143 UNITS (80-120) 06/06/19 05:42 Random Glucose 89 mg/dL (74-106) 06/05/19 07:40 Hemoglobin A1c % 8.9 % (4.2-6.3) H 05/01/19 05:25 Lactic Acid 1.2 mmol/L (0.4-2.0) 04/30/19 12:45 Calcium 8.9 mg/dL (8.5-10.1) 06/05/19 07:40 Phosphorus 3.8 mg/dL (2.5-4.9) 06/01/19 06:00 Magnesium 1.9 mg/dL (1.8-2.4) 06/02/19 07:22 Iron 26 ug/dL (50-175) L 05/01/19 05:25 TIBC 389 ug/dL (250-450) 05/01/19 05:25 Iron Saturation 6 % (17.5-39) L 05/01/19 05:25 Unsaturated IBC 363 ug/dL (200-275) H 05/01/19 05:25 Ferritin 36.6 ng/ml (8-388) 05/01/19 05:25 Total Bilirubin 0.6 mg/dL (0.2-1) 06/05/19 07:40 Direct Bilirubin 0.2 mg/dL (0.0-0.2) 05/05/19 05:30 AST 20 U/L (15-37) 06/05/19 07:40 ALT 20 U/L (13-61) 06/05/19 07:40 Alkaline Phosphatase 108 U/L (45-117) 06/05/19 07:40 Creatine Kinase 179 U/L (26-308) 05/11/19 05:55 Creatine Kinase Index No Result Required. 05/11/19 05:55 CK-MB (CK-2) < 1.0 ng/mL (0.5-3.6) 05/11/19 05:55 Troponin I < 0.02 ng/ml (0.00-0.05) 05/05/19 05:30 B-Natriuretic Peptide 781.3 pg/ml (5-125) H 05/04/19 05:20 Total Protein 6.8 g/dl (6.4-8.2) 06/05/19 07:40 Albumin 2.1 g/dl (3.4-5.0) L 06/05/19 07:40 Triglycerides 232 mg/dL (0-150) H 05/27/19 10:25 Cholesterol 205 mg/dL (50-200) H 05/27/19 10:25 Total LDL Cholesterol 130 mg/dL (5-100) H 05/27/19 10:25 HDL Cholesterol 36 mg/dL (40-60) L 05/27/19 10:25 TSH 1.59 uIU/ml (0.358-3.74) 05/11/19 05:55 Current Medications Acetaminophen (Tylenol Oral Solution -) 650 mg GT Q6H PRN PRN Reason: Fever Or Pain Last Admin: 06/04/19 12:39 Dose: 650 mg Amino Acids (Prosource No Carb Liquid Pkt) 30 ml PO BID@0800,1730 [facility] Last Admin: 06/06/19 08:59 Dose: 30 ml Apixaban (Eliquis -) 5 mg PEG BID [facility] Last Admin: 06/05/19 21:52 Dose: 5 mg Atorvastatin Calcium (Lipitor -) 40 mg PO HS [facility] Last Admin: 06/05/19 21:52 Dose: 40 mg Diltiazem HCl (Cardizem -) 30 mg PO TID [facility] Last Admin: 06/06/19 05:45 Dose: Not Given Docusate Sodium (Colace Liquid -) 200 mg GT DAILY PRN PRN Reason: CONSTIPATION Ferrous Sulfate (Feosol) 300 mg NGT BID [facility] Last Admin: 06/05/19 21:53 Dose: 300 mg Furosemide (Lasix Oral Solution -) 40 mg NGT DAILY [facility] Last Admin: 06/05/19 13:12 Dose: 40 mg Insulin Aspart (Novolog Vial Sliding Scale -) 1 vial SQ ACHS [facility]; Protocol Last Admin: 06/06/19 06:12 Dose: Not Given Insulin Detemir (Levemir Vial) 14 units SQ AM [facility] Last Admin: 06/06/19 06:22 Dose: 14 units Lisinopril (Prinivil) 10 mg NGT DAILY [facility] Last Admin: 06/05/19 09:17 Dose: 10 mg Metoprolol Tartrate (Lopressor -) 25 mg GT TID [facility] Last Admin: 06/06/19 05:46 Dose: Not Given Nystatin (Nystatin Oral Suspension -) 500,000 units PO Q6HPO [facility] Last Admin: 06/06/19 06:22 Dose: 500,000 units Pantoprazole Sodium (Protonix -) 40 mg PO DAILY [facility] Last Admin: 06/05/19 09:17 Dose: 40 mg Polyethylene Glycol (Miralax (For Daily Use) -) 17 gm GT DAILY [facility] Last Admin: 06/05/19 09:17 Dose: 17 grams Senna (Senna Oral Solution -) 8.8 mg GT HS [facility] Last Admin: 06/05/19 21:53 Dose: Not Given Tamsulosin HCl (Flomax -) 0.4 mg PO DAILY@0830 [facility] Last Admin: 06/05/19 09:17 Dose: 0.4 mg Thiamine HCl (Vitamin B1 -) 200 mg PO DAILY [facility] Last Admin: 06/05/19 09:17 Dose: 200 mg Assessment: 05/01/2019 Normal LV and RV size and fxn, tr TR 03/14/2019 Normal LV size and fxn, no thrombus ADEEL, mild-mod dilated and HK RV, tr MR, mild-mod TR, tr AR, trace pericardial effusion 1. Acute hypoxic and hypercapneic respiratory failure currently on mechanical ventilation via tracheostomy 2. Post pneumonia, septic shock, Gram Positive Bacteremia, lactic acidosis and ARDS 3. Sarcoidosis confirmed by skin biopsy 4. OSAS nonadherent to CPAP 5. Persistent Aflutter/Afib rate-controlled 6. Acute on chronic diastolic heart failure 7. Acute on CKD with hyperkalemia 8. Type 2 DM 9. Anemia 10. 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 s/p trial of IVIG, bronchodilator and enteral feeds with trial of dysphagia diet per S&S 2. Vent wean, SBT, PMV trials with goal of trach collar during day, CPAP/PS at night 3. Rate-control with uptitrate oral Lopressor 25 mg TID and Cardizem 30 mg TID as hemodynamics tolerate, IV Cardizem and Lopressor as needed and continue Eliquis 5 mg BID 4. Lasix 40 QD (NGT) as needed with monitor renal function and electrolytes 5. Continue lisinopril 10 mg QD and Lipitor 40 QD 6. Follow up with Dr. Genaro Davila (cardiology at [facility]) as outpatient. Consider cardiac PET or MRI to exclude cardiac involvement in sarcoidosis as outpatient
--- NOTE | 2019-06-06 10:27 | PN ---
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, JET [employer]ER - Note 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: Selected Entries 06/05/19 06/05/19 06/05/19 02:00 06:00 09:44 Breakfast Lunch Supper Temperature 99.0 F 98.5 F 98.5 F 06/05/19 06/05/19 06/05/19 10:00 13:11 14:00 Breakfast 50% Lunch 25% Supper 50% Temperature 98.6 F 98.4 F 06/05/19 06/06/19 06/06/19 18:00 01:00 05:00 Breakfast Lunch Supper 25% Temperature 98.5 F 98.9 F 98.7 F 06/06/19 09:00 Breakfast Lunch Supper Temperature 98.6 F Laboratory Tests 06/05/19 07:40 WBC 4.1 Doing quite well with PO diet with supplemental TF nocturnally. Seen breakfast time, doing well with omelette. Residue on tongue after swallow, indicative of some weakness. Suggested alternating solids with sip of liquid or applesauce. He reports eating 50% because he doesnt like the food. Educated pt on fatique just like his extremities and needing to defer upgrade to reg consistency at this time. Continue Dys ground, add 1-2 soft items per tray. PMV meal time, increasing time on PMV b/n meals as endurance improves. Plan is for transfer to [facility]. Suggest daily intensive sp/sw tx for speech/swallow rehabilitation. Repeat MBS to upgrade diet, as indicated.
[2019-06-06] MEDS ORDERED: dilTIAZem HCL 30 MG TABLET (FP) PO ONE (10:29)
[2019-06-06] MEDS: FERROUS SO4 300 MG/5 ML ORAL SOLN UNIT DOSE CUPS NGT SCH ×2 (10:30→21:39)
[2019-06-06] MEDS: PANTOPRAZOLE 40 MG TABLET PO SCH (10:30)
[2019-06-06] MEDS: LISINOPRIL 10 MG TABLET (FP) NGT SCH (10:30)
[2019-06-06] MEDS: APIXABAN 5 MG TABLET PEG SCH ×2 (10:31→21:39)
[2019-06-06] MEDS: THIAMINE HCL 100 MG TABLET (FP) PO SCH (10:31)
[2019-06-06] MEDS: TAMSULOSIN HCL 0.4 MG CAP PO SCH (10:38)
[2019-06-06] MEDS: POLYETHYLENE GLYCOL 3350 119 GM BTL GT SCH (11:10)
[2019-06-06] MEDS: FUROSEMIDE 40 MG/5 ML UNIT-DOSE CUP NGT SCH (11:29)
--- NOTE | 2019-06-06 11:31 | PN ---
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, Physician History of Present Illness: Pt seen and examined at bedside. He is awake and alert. He tolerated diet yesterday. - Current Medication List Current Medications: Active Medications Acetaminophen (Tylenol Oral Solution -) 650 mg GT Q6H PRN PRN Reason: Fever Or Pain Last Admin: 06/04/19 12:39 Dose: 650 mg Amino Acids (Prosource No Carb Liquid Pkt) 30 ml PO BID@0800,1730 [facility] Last Admin: 06/06/19 08:59 Dose: 30 ml Apixaban (Eliquis -) 5 mg PEG BID [facility] Last Admin: 06/06/19 10:31 Dose: 5 mg Atorvastatin Calcium (Lipitor -) 40 mg PO HS [facility] Last Admin: 06/05/19 21:52 Dose: 40 mg Diltiazem HCl (Cardizem -) 30 mg PO TID [facility] Last Admin: 06/06/19 05:45 Dose: Not Given Docusate Sodium (Colace Liquid -) 200 mg GT DAILY PRN PRN Reason: CONSTIPATION Ferrous Sulfate (Feosol) 300 mg NGT BID [facility] Last Admin: 06/06/19 10:30 Dose: 300 mg Furosemide (Lasix Oral Solution -) 40 mg NGT DAILY [facility] Last Admin: 06/05/19 13:12 Dose: 40 mg Insulin Aspart (Novolog Vial Sliding Scale -) 1 vial SQ ACHS [facility]; Protocol Last Admin: 06/06/19 11:22 Dose: Not Given Insulin Detemir (Levemir Vial) 14 units SQ AM [facility] Last Admin: 06/06/19 06:22 Dose: 14 units Lisinopril (Prinivil) 10 mg NGT DAILY [facility] Last Admin: 06/06/19 10:30 Dose: 10 mg Metoprolol Tartrate (Lopressor -) 25 mg GT BID [facility] Last Admin: 06/06/19 11:10 Dose: 25 mg Nystatin (Nystatin Oral Suspension -) 500,000 units PO Q6HPO [facility] Last Admin: 06/06/19 11:10 Dose: 500,000 units Pantoprazole Sodium (Protonix -) 40 mg PO DAILY [facility] Last Admin: 06/06/19 10:30 Dose: 40 mg Polyethylene Glycol (Miralax (For Daily Use) -) 17 gm GT DAILY [facility] Last Admin: 06/06/19 11:10 Dose: 17 grams Senna (Senna Oral Solution -) 8.8 mg GT HS [facility] Last Admin: 06/05/19 21:53 Dose: Not Given Tamsulosin HCl (Flomax -) 0.4 mg PO DAILY@0830 [facility] Last Admin: 06/06/19 10:38 Dose: 0.4 mg Thiamine HCl (Vitamin B1 -) 200 mg PO DAILY [facility] Last Admin: 06/06/19 10:31 Dose: 200 mg - Objective Vital Signs: Vital Signs Temperature 98.6 F 06/06/19 09:00 Pulse Rate 60 06/06/19 09:00 Respiratory Rate 14 06/06/19 09:00 Blood Pressure 106/66 06/06/19 09:00 O2 Sat by Pulse Oximetry (%) 99 06/06/19 08:40 Constitutional: Yes: Calm Eyes: Yes: Conjunctiva Clear HENT: Yes: Atraumatic Cardiovascular: Yes: S1, S2 Respiratory: Yes: Other (trache collar) Gastrointestinal: Yes: Soft, Abdomen, Obese Genitourinary: Yes: Incontinence Musculoskeletal: Yes: WNL Edema: Yes Edema: LLE: Trace, RLE: Trace Neurological: Yes: Oriented Psychiatric: Yes: Oriented Labs: CBC, BMP 06/05/19 07:40 06/05/19 07:40 INR, PTT INR 1.05 (0.83-1.09) 05/24/19 06:00 Problem List - Problems (1) Acute decompensated heart failure Code(s): I50.9 - HEART FAILURE, UNSPECIFIED (2) Atrial fibrillation and flutter Code(s): I48.91 - UNSPECIFIED ATRIAL FIBRILLATION; I48.92 - UNSPECIFIED ATRIAL FLUTTER (3) Hyperkalemia Code(s): E87.5 - HYPERKALEMIA (4) Pneumonia Code(s): J18.9 - PNEUMONIA, UNSPECIFIED ORGANISM Qualifiers: Pneumonia type: due to unspecified organism (5) Sarcoidosis of other sites Code(s): D86.89 - SARCOIDOSIS OF OTHER SITES Assessment/Plan Impression 1. RYNE 2. hyperkalemia 3. resp failure requiring intubation 4. resp acidosis 5. dm 6. hx htn 7. sleep apnea 8. obesity 9. hx non compliance 10. chf 11. sarcoid 12. volume overload 13. hypernatremia Plan - pt tolerating diet - cont lasix - monitor lytes - monitor volume status - avoid fluid overload
--- NOTE | 2019-06-06 11:47 | PN ---
Teaching Attending Note Name of Resident: Giuseppe Rm ATTENDING PHYSICIAN STATEMENT I saw and evaluated the patient. I reviewed the resident's note and discussed the case with the resident. I agree with the resident's findings and plan as documented. SUBJECTIVE: Awake, speaking. Feels well, no complaints. OBJECTIVE: Afebrile, Hemodynamically Stable. Comfortable. Last Vital Signs Temp Pulse Resp BP Pulse Ox 98.6 F 60 14 106/66 99 06/06/19 09:00 06/06/19 09:00 06/06/19 09:00 06/06/19 09:00 06/06/19 08:40 HEENT: s/p Trach to Vent. Making eye contact, following commands, speaking HEART: S1, S2, RRR LUNGS: good air entry bilaterally ABDOMEN: High BMI, soft, non-tender, non-distended, normal BS. PEG in situ. EXTREMITIES: Trace edema, no calf tenderness. Neuro: Awake, Alert, following commands. Power much improved 4/5 all extremities. Laboratory Results - last 24 hr 06/05/19 06/05/19 06/05/19 12:05 16:35 22:03 POC Glucometer 126 109 113 06/06/19 05:42 POC Glucometer 143 Current Medications Generic Name Dose Route Start Last Admin Trade Name Freq PRN Reason Stop Dose Admin Acetaminophen 650 mg 06/02/19 00:22 06/04/19 12:39 Tylenol Oral Solution - GT 650 mg Q6H PRN Administration Fever Or Pain Amino Acids 30 ml 06/02/19 08:00 06/06/19 08:59 Prosource No Carb Liquid Pkt PO 30 ml BID@0800,1730 ELISSA Administration Apixaban 5 mg 06/02/19 10:00 06/06/19 10:31 Eliquis - PEG 5 mg BID ELISSA Administration Atorvastatin Calcium 40 mg 06/02/19 22:00 06/05/19 21:52 Lipitor - PO 40 mg HS ELISSA Administration Diltiazem HCl 30 mg 06/02/19 06:00 06/06/19 05:45 Cardizem - PO Not Given TID ELISSA Docusate Sodium 200 mg 06/02/19 00:22 Colace Liquid - GT DAILY PRN CONSTIPATION Ferrous Sulfate 300 mg 06/02/19 10:00 06/06/19 10:30 Feosol NGT 300 mg BID ELISSA Administration Furosemide 40 mg 06/02/19 10:00 06/06/19 11:29 Lasix Oral Solution - NGT 40 mg DAILY [facility] Administration Insulin Aspart 1 vial 06/02/19 07:00 06/06/19 11:22 Novolog Vial Sliding Scale - SQ Not Given ACHS [facility] Protocol Insulin Detemir 14 units 06/06/19 07:00 06/06/19 06:22 Levemir Vial SQ 14 units AM [facility] Administration Lisinopril 10 mg 06/02/19 10:00 06/06/19 10:30 Prinivil NGT 10 mg DAILY ELISSA Administration Metoprolol Tartrate 25 mg 06/06/19 10:30 06/06/19 11:10 Lopressor - GT 25 mg BID [facility] Administration Nystatin 500,000 units 06/02/19 06:00 06/06/19 11:10 Nystatin Oral Suspension - PO 500,000 units Q6HPO [facility] Administration Pantoprazole Sodium 40 mg 06/02/19 10:00 06/06/19 10:30 Protonix - PO 40 mg DAILY [facility] Administration Polyethylene Glycol 17 gm 06/02/19 10:00 06/06/19 11:10 Miralax (For Daily Use) - GT 17 grams DAILY [facility] Administration Senna 8.8 mg 06/02/19 22:00 06/05/19 21:53 Senna Oral Solution - GT Not Given [facility] Tamsulosin HCl 0.4 mg 06/04/19 12:10 06/06/19 10:38 Flomax - PO 0.4 mg DAILY@0830 [facility] Administration Thiamine HCl 200 mg 06/03/19 10:00 06/06/19 10:31 Vitamin B1 - PO 200 mg DAILY [facility] Administration Discharge Medications Medication Instructions Recorded Amino Acids/Protein Hydrolys 30 ml PO BID@0800,1730 packet 06/06/19 [Prosource No Carb Liquid Pkt] Apixaban [Eliquis -] 5 mg PEG BID tablet 06/06/19 Atorvastatin Ca [Lipitor] 40 mg PO HS tablet 06/06/19 Diltiazem [Cardizem -] 30 mg PO TID tablet 06/06/19 Docusate Liquid [Colace Liquid -] 200 mg GT DAILY PRN ud 06/06/19 Ferrous Sulfate [Feosol] 300 mg NGT BID udc 06/06/19 Furosemide Oral Solution [Lasix 40 mg NGT DAILY udc 06/06/19 Oral Solution -] Insulin (Levemir) [Levemir Vial] 14 units SQ AM units 06/06/19 Insulin Sliding Scale [Novolog 1 vial SQ ACHS units 06/06/19 Vial Sliding Scale -] Lisinopril [Prinivil] 10 mg NGT DAILY tablet 06/06/19 Metoprolol Tartrate [Lopressor -] 25 mg GT BID tablet 06/06/19 Nystatin Oral Suspension - 500,000 units PO Q6HPO cup 06/06/19 [Nystatin Oral Susp 462083 Units/5 ML -] Pantoprazole Sodium [Protonix -] 40 mg PO DAILY tablet.ec 06/06/19 Tamsulosin HCl [Flomax -] 0.4 mg PO DAILY@0830 cap.er.24h 06/06/19 Thiamine HCl [Vitamin B1 -] 200 mg PO DAILY tablet 06/06/19 ASSESSMENT AND PLAN: 53 year old male with Obesity, DM 2, Sarcoidosis, Hx Systolic CHF (EF 45-50%, now EF normal), EMMY (non-adherent with CPAP), and Atrial Flutter presented with sudden onset of shortness of breath, requiring intubation and mechanical ventilation, with prolonged hospitalization. 1. Acute Hypoxic and Hypercapneic Respiratory Failure secondary to Acute Diastolic CHF +/- PNA Extubated 05/09/19 and re-intubated 05/13/19 s/p Trach 05/22 Completed period of IV Lasix diuresis (EF previously 45%, now EF normal) and antibiotic course for PNA (ESBL-positive sputum). On maintenance dose Lasix 40mg. MBS done - recommendation by ST for dysphagia ground diet with nectar thick liquids; PMV with cuff deflated at mealtimes, feeds via PEG at night to supplement. Vent weaning/spontaneous breathing trials as per Pulm. PT 2. Cardiogenic Shock sec to Acute Diastolic CHF vs Septic Shock sec to PNA, etiology unclear - resolved, off pressors. Weaned off Levophed and Vasopressin Blood Cx - Staph epi, likely contaminant. Echo - no vegetations. Repeat Blood Cx neg x 2. Another set Blood Cx pending due to recurrence of fever. Completed Meropenem for ESBL Pneumonia BP rebounded well - tolerating Metoprolol, Diltiazem, and Lisinopril. Cardiology following - for out-patient Cardiac MRI to assess degree of sarcoid involvement. 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 Responding well - now able to speak, move arms/legs (previously unable to) Dispo to SNF for vent management and ongoing Rehab for functional recovery 4. Atrial flutter with RVR - resolved, now bradycardic intermittently - Metoprolol dose decreased to BID. Continue Diltiazem. Digoxin stopped. Continue Eliquis. 5. RYNE with Hyperkalemia - likely secondary to Cardiorenal phenomenon, resolved. Nephrology following. Lisinopril, Lasix resumed. 6. Hx Sarcoidosis - Pulm follow up on discharge. 7. DM 2 - Insulin drip transitioned to Detemir/Novolog as per sliding scale. 8. Iron Deficiency Anemia - FeSO4 supplementation. No evidence of active blood loss. For out-patient Ix. DVT Px - on Eliquis GI Px - Protonix. Nutrition - Oral and PEG feeds. Dispo - Medically stable for discharge to SNF.
--- NOTE | 2019-06-06 16:54 | DS ---
Physical Exam: SUBJECTIVE: Patient seen and examined. Continued improvement. No acute events overnight. OBJECTIVE: Vital Signs Period Temp Pulse Resp BP Sys/[place] Pulse Ox Last 24 Hr 98.5 F-98.9 F 47-73 14-20 93-123/53-75 99-100 PHYSICAL EXAM GENERAL: The patient is awake, alert, and fully oriented, in no acute distress. HEAD: Normal with no signs of trauma. EYES: EOMI, PERRL NECK: Tracheotomy tube in place LUNGS: Breath sounds equal, clear to auscultation bilaterally, no wheezes, no crackles, no accessory muscle use. HEART: Regular rate and rhythm, S1, S2 without murmur, rub or gallop. ABDOMEN: Soft, nontender, nondistended, normoactive bowel sounds, no guarding EXTREMITIES: 2+ pulses, warm, well-perfused, no edema. NEUROLOGICAL: follows commands, move extremities, speech improving PSYCH: appropriate mood and affect SKIN: Warm, dry, normal turgor, no rashes or lesions noted LABS Laboratory Results - last 24 hr 06/05/19 06/05/19 06/06/19 16:35 22:03 05:42 POC Glucometer 109 113 143 06/06/19 11:19 POC Glucometer 128 HOSPITAL COURSE: Date of Admission:04/30/19 Date of Discharge: 06/06/19 53 y/o/m with PMHx of DM2, HFpEF(last EF: 45-50%), EMMY (non-adherent to CPAP), Sarcoid and atrial flutter presented with sudden onset of shortness of breath. patient was initially intubated due to hypoxic and hpercapneic respiratory failure secondary to acute diastolic CHF. Patient was extensively monitored in the ICU. He was initially on a lasix drip to help decrease his volume status. Renal function was poor but improved with diuresis and dialysis was not needed. Patient was intermittently on pressor support for poor BP status while in the ICU. He was started on Heparin drip due to Afib with RVR. Rate control medcation was titrated until his heart rate was better controlled. Patient completed and extensive course of antibiotics, initially Azithromycin, Vancomycin, and Zosyn and then Meropenem due to possible pneumonia. Patient had a positive blood culture bottle initially but repeat blood cultures were negative for bacteremia. Patient was on steroids while in the ICU. Patient was extubated on 05/09 but had poor respiratory effort and mental status. On 05/13 patient still had poor mental status, was poorly following commands and had to be re-intubated. He was noted to have left fixed and dilated pupil and a head CT was performed which was negative for acute pathology. Due to patient's poor mental and physical status there was concern for critical care myopathy. 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 There is no evidence of myopathy, although given that patient was unable to participate, cannot rule out myopathic process" at the time of the EMG. Patient also had an EEG which was abnormal and showed nonspecific changes. Patient was weaned off of lasix drip and heparin drip. Patient was started on Eliquis for further AC. Due to continued poor respiratory effort a tracheotomy was performed on 05/22 for further vent support. Patient was continued on Lasix 40mg for maintenance. Echo showed EF of 55-60% without significant abnormalities. Patient tolerating Metoprolol and Diltiazem well, started on Lisinopril as well once renal function improved. Patient will follow up with Cardiology after discharge for possible out patient cardiac MRI to assess degree of sarcoid involvement. Patient had an LP completed on 05/26 due to continued poor mental and physical status and concern for Guillan-[place] syndrome. LP showed evidence of Guillan-[place] with low WBC and high protein. Patient was started on IVIG with improvement, now able to speak, move arms/legs while he was previously unable to. Patient had serial CXRs completed which showed improvement. Patient had insulin titrated to adequate glucose control. Patient noted to have iron deficiency anemia and was started on iron supplementation. Patient had a PEG tube placed on 05/27 and was started on tube feeds. A modified barium swallow was conducted to assess patients swallowing ability. He was started on dysphagia ground diet with nectar thick liquids. Appropriate feeding instructions included in discharge planning. Patient had ortiz placed due to urinary retention, to follow up with urology outpatient for further management and trial of void. Patient to be sent to [facility] for further care and continued rehab. Patient to follow up with Cardiology, Nephrology, Neurology, Pulmonology, Endocrinology, Urology, and his PCP after discharge. Minutes to complete discharge: 36 Discharge Summary Problems reviewed: Yes Reason For Visit: ACUTE RENAL FAILURE,HYTPERKALEMIA,ACUTE DDECOMPENS Current Active Problems Acute decompensated heart failure (Acute) Acute hypercapnic respiratory failure due to obstructive sleep apnea (Acute) Acute on chronic renal failure (Acute) Acute respiratory failure with hypoxia and hypercapnia (Acute) Altered sensorium (Acute) Atrial fibrillation and flutter (Acute) Guillain [place] syndrome (Acute) Hyperkalemia (Acute) Morbid obesity (Acute) Pneumonia (Acute) Renal failure (Acute) Sarcoidosis of other sites (Acute) Septic shock (Acute) Sleep apnea (Acute) Type 2 diabetes mellitus (Acute) Condition: Improved - Instructions Diet, Activity, Other Instructions: You were admitted for shortness of breath and lung failure. You were treated with IV antibiotics and given lung protective medications. You were monitored in the critical care unit initially and intubated (breathing tube down your throat). You have a hole in your neck attached to a monitor to help your breath (tracheostomy) given your lungs are too weak to breath on your own. You were seen by heart specialists, lung specialists, critical care specialists, brain specialists, as well as internal medicine specialists. All the specialists are in agreement that you have vastly improved since you came in here. You were unable to move your extremities at one point during your time here. We diagnosed you with Guillian-[place] syndrome and you were given the necessary treatment which has helped you move your extremities and will continue to improve over the next few months. You are deemed stable enough for discharge to a [facility] for rehab. Follow ups: You should follow up with your brain specialist (Dr. Jaime) for your guillian barre syndrome to help improve your chances of fully functioning again. You should follow up with cardiology Dr. Genaro Davila (cardiology at [place]) in 1 week to monitor your cardiac function. You should follow up with your kidney doctor (Dr. Kelley) in 1 week to evaluate your kidney function. You should follow up with your lung doctor (Dr. Dave) in 1 week to evaluate your lung function. You should follow up with your primary care doctor in 1 week to evaluate your overrall health. You will repeat blood work (CMP) to assess your kidney and liver function once your leave the hospital. You should follow up with the urologist within 1 week to evaluate your need for the ortiz catheter due to your urinary retention. You should follow up with an supervisor aircraft maintenance (Dr. Maldonado) in 1-2 weeks for management of your diabetes and to discuss further medications. Medications: We have made the following adjustments to your medication regimen: Please STOP the following medications: -Amiodarone 200 mg once a day -Diltiazem 300 mg once a day -Furosemide 40 mg twice a day -Sitagliptin 100 mg once a day Please START the following medications: -Eliquis 5 mg twice a day -Lisinopril 10 mg daily -Lipitor 40 mg once at night -Diltiazem 30 mg two times a day -Colace 200 mg once a day -Ferrous Sulfate 300 mg twice a day -Tamsulosin 0.4 mg once a day -Furosemide 40 mg oral liquid once a day -Atorvastatin 40 mg once at night -Metoprolol Tartrate 25 mg two times a day -Nystatin Oral Suspension 500,000 units by mouth every 6 hours -Protonix 40 mg once a day -Prosource 30mg twice a day -Senna 8.8 mg once at night -Thiamine 200 mg once daily -Levemir 14 units in the morning -Novolog Sliding Scale with the following protocol- Blood sugar Dose to Administer (units) 101-150 0 151-200 3 201-250 6 251-300 9 301-350 12 Recommendations FEEDING INSTRUCTIONS: Ideally, patient should be suctioned very well and then placed Passy-Hull valve with cuff deflated mealtime. He should be seated with head of bed elevated as much as tolerated, with chin in neutral position. Feed patient slowly and allow patient to swallow before next bite is given. Half teaspoon at a time. Monitor for by mouth tolerance. Gastrostomy tube feedings should be during the night time (7pm-7am) and patient should be fed by mouth during the day. Gastrostomy tube feed recommendations: Glucerna 1.5 at 50ml/hr with 20ml/hr additional free water flushes. For oral diet Dysphagia ground diet with nectar thick liquids. include 1-2 soft items. Continue Prosource twice a day as above. Diabetic diet restriction recommended for patient. Give ensure pudding twice a day for added caloric content. PMV daily, increasing time as tolerated, to enable patient to communicate, improve upper airway function, and to expedite weaning from ventilator. Once patient is transferred to the detention, please have dietary follow up with patient to reassess caloric needs and to help with weaning from tube feeds, with goal to wean from gastrostomy tube when possible. Referrals: Giovanni Lam [Other] Nain Boswell MD [Staff Physician] - Dakota Kelley MD [Staff Physician] - 1 Week Manuela Maldonado MD [Staff Physician] - Irene Pleitez MD [Staff Physician] - 1 Week Bustre Dave MD, MD [Staff Physician] - 1 Week Disposition: [facility] - Home Medications Comprehensive Discharge Medication List: Ambulatory Orders Amino Acids/Protein Hydrolys [Prosource No Carb Liquid Pkt] 30 ml PO BID@0800,1730 packet 06/06/19 Apixaban [Eliquis -] 5 mg PEG BID tablet 06/06/19 Atorvastatin Ca [Lipitor] 40 mg PO HS tablet 06/06/19 Diltiazem [Cardizem -] 30 mg PO BID #0 tablet 06/06/19 Docusate Liquid [Colace Liquid -] 200 mg GT DAILY PRN ud 06/06/19 Ferrous Sulfate [Feosol] 300 mg NGT BID udc 06/06/19 Furosemide Oral Solution [Lasix Oral Solution -] 40 mg NGT DAILY udc 06/06/19 Insulin (Levemir) [Levemir Vial] 14 units SQ AM units 06/06/19 Insulin Sliding Scale [Novolog Vial Sliding Scale -] 1 vial SQ ACHS units 06/06/19 Lisinopril [Prinivil] 10 mg NGT DAILY tablet 06/06/19 Metoprolol Tartrate [Lopressor -] 25 mg GT BID tablet 06/06/19 Nystatin Oral Suspension - [Nystatin Oral Susp 185348 Units/5 ML -] 500,000 units PO Q6HPO cup 06/06/19 Pantoprazole Sodium [Protonix -] 40 mg PO DAILY tablet.ec 06/06/19 Tamsulosin HCl [Flomax -] 0.4 mg PO DAILY@0830 cap.er.24h 06/06/19 Thiamine HCl [Vitamin B1 -] 200 mg PO DAILY tablet 06/06/19 This patient is new to me today: No Emergency Visit: Yes ED Registration Date: 04/30/19 Care time: The patient presented to the Emergency Department on the above date and was hospitalized for further evaluation of their emergent condition. Critical Care patient: No - Discharge Referral Referred to [facility] No Physician Referral: Laci Wells MD ([facility]) ATTENDING PHYSICIAN STATEMENT I saw and evaluated the patient. I reviewed the resident's note and discussed the case with the resident. I agree with the resident's findings and plan as documented. SUBJECTIVE: OBJECTIVE: ASSESSMENT AND PLAN:
[2019-06-06] MEDS: ATORVASTATIN CA 40 MG TABLET (FP) PO SCH (21:39)
[2019-06-06] MEDS: SENNOSIDES 8.8 MG/5 ML BULK BOTTLE GT SCH (21:39)
[2019-06-07] MEDS: NYSTATIN 500,000 UNITS/5 ML SUSPENSION PO SCH ×5 (00:15→23:43)
[2019-06-07] MEDS ORDERED: SODIUM CHLORIDE 500 ML IV STA (01:44)
--- NOTE | 2019-06-07 06:20 | PN ---
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 (short form) - Note 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: Received page about patient that BP 85/44 HR 50. Given 500cc NS bolus. BP improved to 110/66 HR 94 Paged again that patient BP 87/56 HR 47 After suctioning, manual BP was rechecked and found at 108/74 HR 59 No further interventions. Patient had no acute complaints on brief ROS.
[2019-06-07] MEDS: INSULIN (LEVEMIR) 100 UNITS/ML UNITS SQ SCH (06:23)
[2019-06-07] MEDS: INSULIN SLIDING SCALE (NOVOLOG) 1 VIAL SQ SCH ×4 (06:23→23:42)
[2019-06-07] MEDS: AMINO ACIDS/PROTEIN HYDROLYS 30 ML LIQUID.PKT PO SCH ×2 (09:17→17:57)
[2019-06-07] MEDS: TAMSULOSIN HCL 0.4 MG CAP PO SCH (09:17)
[2019-06-07] MEDS ORDERED: PT OWN MED DRAWER 7, Y5N ONE (10:21)
[2019-06-07] MEDS: dilTIAZem HCL 30 MG TABLET (FP) PO SCH (10:30)
[2019-06-07] MEDS: THIAMINE HCL 100 MG TABLET (FP) PO SCH (10:31)
[2019-06-07] MEDS: POLYETHYLENE GLYCOL 3350 119 GM BTL GT SCH (10:32)
[2019-06-07] MEDS: FERROUS SO4 300 MG/5 ML ORAL SOLN UNIT DOSE CUPS NGT SCH ×2 (10:32→23:41)
[2019-06-07] MEDS: APIXABAN 5 MG TABLET PEG SCH ×2 (10:32→23:42)
[2019-06-07] MEDS: PANTOPRAZOLE 40 MG TABLET PO SCH (10:34)
[2019-06-07] MEDS: METOPROLOL TARTRATE 25 MG TABLET (FP) GT SCH ×2 (10:41→23:42)
[2019-06-07] MEDS: FUROSEMIDE 40 MG/5 ML UNIT-DOSE CUP NGT SCH (11:16)
[2019-06-07] MEDS: LISINOPRIL 10 MG TABLET (FP) NGT SCH (11:16)
--- NOTE | 2019-06-07 13:16 | PN ---
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 (short form) - Note 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: Awake and alert. Clinically much improved. Spoke to me with PMV! Intake & Output 06/04/19 06/05/19 06/06/19 06/07/19 23:59 23:59 23:59 23:59 Intake Total 148 647 0419 1100 Output Total 1150 1250 800 150 Balance -1050 -800 300 950 Weight 264 lb 2 oz 261 lb 8 oz Last Vital Signs Temp Pulse Resp BP Pulse Ox 98.4 F 64 18 98/66 99 06/07/19 10:25 06/07/19 12:12 06/07/19 12:23 06/07/19 12:12 06/06/19 21:00 Active Medications Acetaminophen (Tylenol Oral Solution -) 650 mg GT Q6H PRN PRN Reason: Fever Or Pain Last Admin: 06/04/19 12:39 Dose: 650 mg Amino Acids (Prosource No Carb Liquid Pkt) 30 ml PO BID@0800,1730 [facility] Last Admin: 06/07/19 09:17 Dose: 30 ml Apixaban (Eliquis -) 5 mg PEG BID [facility] Last Admin: 06/07/19 10:32 Dose: 5 mg Atorvastatin Calcium (Lipitor -) 40 mg PO HS [facility] Last Admin: 06/06/19 21:39 Dose: 40 mg Diltiazem HCl (Cardizem -) 30 mg PO BID [facility] Last Admin: 06/07/19 10:30 Dose: Not Given Docusate Sodium (Colace Liquid -) 200 mg GT DAILY PRN PRN Reason: CONSTIPATION Ferrous Sulfate (Feosol) 300 mg NGT BID [facility] Last Admin: 06/07/19 10:32 Dose: 300 mg Furosemide (Lasix Oral Solution -) 40 mg NGT DAILY [facility] Last Admin: 06/07/19 11:16 Dose: Not Given Insulin Aspart (Novolog Vial Sliding Scale -) 1 vial SQ ACHS [facility]; Protocol Last Admin: 06/07/19 12:17 Dose: 3 unit Insulin Detemir (Levemir Vial) 14 units SQ AM [facility] Last Admin: 06/07/19 06:23 Dose: 14 units Lisinopril (Prinivil) 10 mg NGT DAILY [facility] Last Admin: 06/07/19 11:16 Dose: Not Given Metoprolol Tartrate (Lopressor -) 25 mg GT BID [facility] Last Admin: 06/07/19 10:41 Dose: 25 mg Nystatin (Nystatin Oral Suspension -) 500,000 units PO Q6HPO [facility] Last Admin: 06/07/19 12:32 Dose: 500,000 units Pantoprazole Sodium (Protonix -) 40 mg PO DAILY [facility] Last Admin: 06/07/19 10:34 Dose: Not Given Polyethylene Glycol (Miralax (For Daily Use) -) 17 gm GT DAILY [facility] Last Admin: 06/07/19 10:32 Dose: Not Given Senna (Senna Oral Solution -) 8.8 mg GT HS [facility] Last Admin: 06/06/19 21:39 Dose: Not Given Tamsulosin HCl (Flomax -) 0.4 mg PO DAILY@0830 [facility] Last Admin: 06/07/19 09:17 Dose: 0.4 mg Thiamine HCl (Vitamin B1 -) 200 mg PO DAILY [facility] Last Admin: 06/07/19 10:31 Dose: 200 mg Gen: vented, awake and alert Heart: irregular Lung: scattered rhonchi Abd: soft, nontender Ext: trace edema Laboratory Results - last 24 hr 06/06/19 06/06/19 06/07/19 16:11 21:57 05:38 POC Glucometer 123 136 152 06/07/19 12:15 POC Glucometer 164 A/P Acute Hypoxic and Hypercapneic Respiratory Failure s/p tracheostomy Pneumonia Gram Positive Bacteremia Septic Shock resolved Lactic Acidosis resolved ARDS resolved Paroxysmal Atrial Fluter with RVR Acute on Chronic Diastolic Heart Failure Acute on Chronic Renal Failure r/o Guillian [place] Syndrome DM Anemia Sarcoidosis - s/p IVIG - completed antibiotics - rate control - continue anticoagulation - monitor urine output, creatinine - daily PMV trials - spontaneous breathing trials as tolerated with goal of trach collar during day, CPAP/PS at night - enteral feeds - DVT/GI prophylaxis - DC planning Dr Maya
--- NOTE | 2019-06-07 14:12 | PN ---
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, Physician History of Present Illness: s/p tracheostomy resting on vent, PEG, tolerating PMV trials. Aflutter with improved rate response. 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 Strength improving, tolerated MBS, dysphagia diet, hypotensive overnight responded to fluid bolus. - Current Medication List Current Medications: Active Medications Acetaminophen (Tylenol Oral Solution -) 650 mg GT Q6H PRN PRN Reason: Fever Or Pain Last Admin: 06/04/19 12:39 Dose: 650 mg Amino Acids (Prosource No Carb Liquid Pkt) 30 ml PO BID@0800,1730 [facility] Last Admin: 06/07/19 09:17 Dose: 30 ml Apixaban (Eliquis -) 5 mg PEG BID [facility] Last Admin: 06/07/19 10:32 Dose: 5 mg Atorvastatin Calcium (Lipitor -) 40 mg PO HS [facility] Last Admin: 06/06/19 21:39 Dose: 40 mg Diltiazem HCl (Cardizem -) 30 mg PO BID [facility] Last Admin: 06/07/19 10:30 Dose: Not Given Docusate Sodium (Colace Liquid -) 200 mg GT DAILY PRN PRN Reason: CONSTIPATION Ferrous Sulfate (Feosol) 300 mg NGT BID [facility] Last Admin: 06/07/19 10:32 Dose: 300 mg Furosemide (Lasix Oral Solution -) 40 mg NGT DAILY [facility] Last Admin: 06/07/19 11:16 Dose: Not Given Insulin Aspart (Novolog Vial Sliding Scale -) 1 vial SQ ACHS [facility]; Protocol Last Admin: 06/07/19 12:17 Dose: 3 unit Insulin Detemir (Levemir Vial) 14 units SQ AM [facility] Last Admin: 06/07/19 06:23 Dose: 14 units Lisinopril (Prinivil) 10 mg NGT DAILY [facility] Last Admin: 06/07/19 11:16 Dose: Not Given Metoprolol Tartrate (Lopressor -) 25 mg GT BID [facility] Last Admin: 06/07/19 10:41 Dose: 25 mg Nystatin (Nystatin Oral Suspension -) 500,000 units PO Q6HPO [facility] Last Admin: 06/07/19 12:32 Dose: 500,000 units Pantoprazole Sodium (Protonix -) 40 mg PO DAILY [facility] Last Admin: 06/07/19 10:34 Dose: Not Given Polyethylene Glycol (Miralax (For Daily Use) -) 17 gm GT DAILY [facility] Last Admin: 06/07/19 10:32 Dose: Not Given Senna (Senna Oral Solution -) 8.8 mg GT HS [facility] Last Admin: 06/06/19 21:39 Dose: Not Given Tamsulosin HCl (Flomax -) 0.4 mg PO DAILY@0830 [facility] Last Admin: 06/07/19 09:17 Dose: 0.4 mg Thiamine HCl (Vitamin B1 -) 200 mg PO DAILY [facility] Last Admin: 06/07/19 10:31 Dose: 200 mg - Objective Vital Signs: Vital Signs Temperature 98.4 F 06/07/19 10:25 Pulse Rate 64 06/07/19 12:12 Respiratory Rate 18 06/07/19 12:23 Blood Pressure 98/66 06/07/19 12:12 O2 Sat by Pulse Oximetry (%) 99 06/06/19 21:00 Constitutional: Yes: No Distress, Calm Neck: Yes: Other (Tracheostomy) Cardiovascular: Yes: Regular Rate and Rhythm Respiratory: Yes: Mechanically Ventilated Gastrointestinal: Yes: Normal Bowel Sounds, Soft, Abdomen, Obese, Other (PEG in place) Edema: No Labs: CBC, BMP 06/05/19 07:40 06/05/19 07:40 INR, PTT INR 1.05 (0.83-1.09) 05/24/19 06:00 Problem List - Problems (1) Pneumonia Code(s): J18.9 - PNEUMONIA, UNSPECIFIED ORGANISM Qualifiers: Pneumonia type: due to unspecified organism (2) Acute hypercapnic respiratory failure due to obstructive sleep apnea Code(s): J96.02 - ACUTE RESPIRATORY FAILURE WITH HYPERCAPNIA; G47.33 - OBSTRUCTIVE SLEEP APNEA (ADULT) (PEDIATRIC) (3) Acute decompensated heart failure Code(s): I50.9 - HEART FAILURE, UNSPECIFIED (4) Sarcoidosis of other sites Code(s): D86.89 - SARCOIDOSIS OF OTHER SITES (5) Type 2 diabetes mellitus Code(s): E11.9 - TYPE 2 DIABETES MELLITUS WITHOUT COMPLICATIONS 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 Acute hypoxic and hypercapneic respiratory failure currently on mechanical ventilation via tracheostomy 2. Post pneumonia, septic shock, Gram Positive Bacteremia, lactic acidosis and ARDS 3. Sarcoidosis confirmed by skin biopsy 4. OSAS nonadherent to CPAP 5. Persistent Aflutter/Afib rate-controlled 6. Acute on chronic diastolic heart failure 7. Acute on CKD with hyperkalemia 8. Type 2 DM 9. Anemia 10. 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 s/p trial of IVIG, bronchodilator and enteral feeds with trial of dysphagia diet per S&S 2. Vent wean, SBT, PMV trials with goal of trach collar during day, CPAP/PS at night 3. Rate-control with oral Lopressor 25 mg bid, d/c Cardizem 30 mg TID, Lasix 40 qd as hemodynamics tolerate, IV Cardizem and Lopressor as needed and continue Eliquis 5 mg BID 4. Hold lisinopril 10 mg QD pending hemodynamic stability and continue Lipitor 40 QD 5. Follow up with Dr. Genaro Davila (cardiology at [place]) as outpatient. Consider cardiac PET or MRI to exclude cardiac involvement in sarcoidosis as outpatient
[2019-06-07] MEDS ORDERED: METOPROLOL TARTRATE 25 MG TABLET (FP) GT SCH (14:29)
[2019-06-07] MEDS ORDERED: LISINOPRIL 10 MG TABLET (FP) NGT SCH (14:29)
--- NOTE | 2019-06-07 14:58 | PN ---
Teaching Attending Note Name of Resident: Caren Gordon ATTENDING PHYSICIAN STATEMENT I saw and evaluated the patient. I reviewed the resident's note and discussed the case with the resident. I agree with the resident's findings and plan as documented. SUBJECTIVE: Awake, speaking. Feels well, no complaints. Discharge held yesterday due to borderline BP. OBJECTIVE: Afebrile, Hemodynamically Stable. Comfortable. Trach/Vent Last Vital Signs Temp Pulse Resp BP Pulse Ox 98.4 F 64 18 98/66 99 06/07/19 10:25 06/07/19 12:12 06/07/19 12:23 06/07/19 12:12 06/06/19 21:00 HEENT: s/p Trach to Vent. Making eye contact, following commands, speaking. HEART: S1, S2, RRR LUNGS: good air entry bilaterally ABDOMEN: High BMI, soft, non-tender, non-distended, normal BS. PEG in situ. EXTREMITIES: Trace edema, no calf tenderness. Neuro: Awake, Alert, following commands. Power much improved 4/5 all extremities. Laboratory Results - last 24 hr 06/06/19 06/06/19 06/07/19 16:11 21:57 05:38 POC Glucometer 123 136 152 06/07/19 12:15 POC Glucometer 164 Current Medications Generic Name Dose Route Start Last Admin Trade Name Freq PRN Reason Stop Dose Admin Acetaminophen 650 mg 06/02/19 00:22 06/04/19 12:39 Tylenol Oral Solution - GT 650 mg Q6H PRN Administration Fever Or Pain Amino Acids 30 ml 06/02/19 08:00 06/07/19 09:17 Prosource No Carb Liquid Pkt PO 30 ml BID@0800,1730 ELISSA Administration Apixaban 5 mg 06/02/19 10:00 06/07/19 10:32 Eliquis - PEG 5 mg BID ELISSA Administration Atorvastatin Calcium 40 mg 06/02/19 22:00 06/06/19 21:39 Lipitor - PO 40 mg HS ELISSA Administration Docusate Sodium 200 mg 06/02/19 00:22 Colace Liquid - GT DAILY PRN CONSTIPATION Ferrous Sulfate 300 mg 06/02/19 10:00 06/07/19 10:32 Feosol NGT 300 mg BID ELISSA Administration Insulin Aspart 1 vial 06/02/19 07:00 06/07/19 12:17 Novolog Vial Sliding Scale - SQ 3 unit ACHS ELISSA Administration Protocol Insulin Detemir 14 units 06/06/19 07:00 06/07/19 06:23 Levemir Vial SQ 14 units AM ELISSA Administration Lisinopril 10 mg 06/08/19 10:00 Prinivil NGT DAILY [facility] Metoprolol Tartrate 25 mg 06/07/19 22:00 Lopressor - GT BID ELISSA Nystatin 500,000 units 06/02/19 06:00 06/07/19 12:32 Nystatin Oral Suspension - PO 500,000 units Q6HPO ELISSA Administration Pantoprazole Sodium 40 mg 06/02/19 10:00 06/07/19 10:34 Protonix - PO Not Given DAILY [facility] Polyethylene Glycol 17 gm 06/02/19 10:00 06/07/19 10:32 Miralax (For Daily Use) - GT Not Given DAILY ELISSA Senna 8.8 mg 06/02/19 22:00 06/06/19 21:39 Senna Oral Solution - GT Not Given HS [facility] Tamsulosin HCl 0.4 mg 06/04/19 12:10 06/07/19 09:17 Flomax - PO 0.4 mg DAILY@0830 ELISSA Administration Thiamine HCl 200 mg 06/03/19 10:00 06/07/19 10:31 Vitamin B1 - PO 200 mg DAILY ELISSA Administration ASSESSMENT AND PLAN: 53 year old male with Obesity, DM 2, Sarcoidosis, Hx Systolic CHF (EF 45-50%, now EF normal), EMMY (non-adherent with CPAP), and Atrial Flutter presented with sudden onset of shortness of breath, requiring intubation and mechanical ventilation, with prolonged hospitalization. 1. Acute Hypoxic and Hypercapneic Respiratory Failure secondary to Acute Diastolic CHF +/- PNA Extubated 05/09/19 and re-intubated 05/13/19 s/p Trach 05/22 Completed period of IV Lasix diuresis (EF previously 45%, now EF normal) and antibiotic course for PNA (ESBL-positive sputum). On maintenance dose Lasix 40mg. MBS done - recommendation by ST for dysphagia ground diet with nectar thick liquids; PMV with cuff deflated at mealtimes, feeds via PEG at night to supplement. Vent weaning/spontaneous breathing trials as per Pulm. PT 2. Cardiogenic Shock sec to Acute Diastolic CHF vs Septic Shock sec to PNA, etiology unclear - resolved, off pressors. Weaned off Levophed and Vasopressin Blood Cx - Staph epi, likely contaminant. Echo - no vegetations. Repeat Blood Cx neg x 2. Another set Blood Cx pending due to recurrence of fever. Completed Meropenem course or ESBL Pneumonia Cardiology following - for out-patient Cardiac MRI to assess degree of sarcoid involvement. 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 Responding well - now able to speak, move arms/legs (previously unable to) Dispo to SNF for vent management and ongoing Rehab for functional recovery 4. Atrial flutter with RVR - resolved, now bradycardic/hypotensive intermittently - Metoprolol dose decreased to BID. Diltiazem stopped by Cardio. Continue Eliquis. 5. RYNE with Hyperkalemia - likely secondary to Cardiorenal phenomenon, resolved. Nephrology following. Lisinopril, Lasix resumed as hemodynamics allow. 6. Hx Sarcoidosis - Pulm follow up on discharge. 7. DM 2 - Insulin drip transitioned to Detemir/Novolog as per sliding scale. 8. Iron Deficiency Anemia - FeSO4 supplementation. No evidence of active blood loss. For out-patient Ix. DVT Px - on Eliquis GI Px - Protonix. Nutrition - Oral and PEG feeds. Dispo - Medically stable for discharge to SNF. [facility] declined transport due to SBP in 90s due to Afib rate control regimen. Will re-call.
[2019-06-07] MEDS: ATORVASTATIN CA 40 MG TABLET (FP) PO SCH (23:42)
[2019-06-07] MEDS: SENNOSIDES 8.8 MG/5 ML BULK BOTTLE GT SCH (23:42)
[2019-06-08] MEDS ORDERED: METOPROLOL TARTRATE 25 MG TABLET (FP) GT ONE (06:45)
[2019-06-08] MEDS: INSULIN (LEVEMIR) 100 UNITS/ML UNITS SQ SCH (07:34)
[2019-06-08] MEDS: NYSTATIN 500,000 UNITS/5 ML SUSPENSION PO SCH ×2 (07:34→12:26)
[2019-06-08] MEDS: INSULIN SLIDING SCALE (NOVOLOG) 1 VIAL SQ SCH ×2 (07:36→11:24)
[2019-06-08] MEDS ORDERED: dilTIAZem HCL 30 MG TABLET (FP) PO ONE (08:30)
[2019-06-08] MEDS ORDERED: PT OWN MED DRAWER 7, Y5N ONE (08:49)
[2019-06-08 08:51] VITALS: TEMP 98.7
[2019-06-08] MEDS: TAMSULOSIN HCL 0.4 MG CAP PO SCH (08:56)
[2019-06-08] MEDS: AMINO ACIDS/PROTEIN HYDROLYS 30 ML LIQUID.PKT PO SCH (08:56)
[2019-06-08] MEDS ORDERED: LISINOPRIL 10 MG TABLET (FP) NGT SCH (10:00)
[2019-06-08 11:05] VITALS: BP 121/75; PULSE 70
[2019-06-08] MEDS: APIXABAN 5 MG TABLET PEG SCH (11:06)
[2019-06-08] MEDS: THIAMINE HCL 100 MG TABLET (FP) PO SCH (11:06)
[2019-06-08] MEDS: FERROUS SO4 300 MG/5 ML ORAL SOLN UNIT DOSE CUPS NGT SCH (11:06)
[2019-06-08] MEDS: METOPROLOL TARTRATE 25 MG TABLET (FP) GT SCH (11:06)
[2019-06-08] MEDS: PANTOPRAZOLE 40 MG TABLET PO SCH (11:07)
[2019-06-08] MEDS: POLYETHYLENE GLYCOL 3350 119 GM BTL GT SCH (11:12)
--- NOTE | 2019-06-08 12:59 | PN ---
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 (short form) - Note 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: Awake and alert. Vented with PMV in place. Eating lunch! Intake & Output 06/05/19 06/06/19 06/07/19 06/08/19 23:59 23:59 23:59 23:59 Intake Total 450 1100 1490 0 Output Total 1250 800 950 600 Balance -800 300 540 -600 Weight 261 lb 8 oz Last Vital Signs Temp Pulse Resp BP Pulse Ox 98.7 F 70 18 121/75 97 06/08/19 08:46 06/08/19 11:00 06/08/19 11:00 06/08/19 11:00 06/08/19 08:51 Active Medications Acetaminophen (Tylenol Oral Solution -) 650 mg GT Q6H PRN PRN Reason: Fever Or Pain Last Admin: 06/04/19 12:39 Dose: 650 mg Amino Acids (Prosource No Carb Liquid Pkt) 30 ml PO BID@0800,1730 [facility] Last Admin: 06/08/19 08:56 Dose: 30 ml Apixaban (Eliquis -) 5 mg PEG BID [facility] Last Admin: 06/08/19 11:06 Dose: 5 mg Atorvastatin Calcium (Lipitor -) 40 mg PO HS [facility] Last Admin: 06/07/19 23:42 Dose: 40 mg Docusate Sodium (Colace Liquid -) 200 mg GT DAILY PRN PRN Reason: CONSTIPATION Ferrous Sulfate (Feosol) 300 mg NGT BID [facility] Last Admin: 06/08/19 11:06 Dose: 300 mg Insulin Aspart (Novolog Vial Sliding Scale -) 1 vial SQ ACHS [facility]; Protocol Last Admin: 06/08/19 11:24 Dose: 3 unit Insulin Detemir (Levemir Vial) 14 units SQ AM [facility] Last Admin: 06/08/19 07:34 Dose: 14 units Lisinopril (Prinivil) 10 mg NGT DAILY [facility] Last Admin: 06/08/19 11:06 Dose: 10 mg Metoprolol Tartrate (Lopressor -) 25 mg GT BID [facility] Last Admin: 06/08/19 11:06 Dose: Not Given Nystatin (Nystatin Oral Suspension -) 500,000 units PO Q6HPO [facility] Last Admin: 06/08/19 12:26 Dose: 500,000 units Pantoprazole Sodium (Protonix -) 40 mg PO DAILY [facility] Last Admin: 06/08/19 11:07 Dose: Not Given Polyethylene Glycol (Miralax (For Daily Use) -) 17 gm GT DAILY [facility] Last Admin: 06/08/19 11:12 Dose: Not Given Senna (Senna Oral Solution -) 8.8 mg GT HS [facility] Last Admin: 06/07/19 23:42 Dose: 8.8 mg Tamsulosin HCl (Flomax -) 0.4 mg PO DAILY@0830 [facility] Last Admin: 06/08/19 08:56 Dose: 0.4 mg Thiamine HCl (Vitamin B1 -) 200 mg PO DAILY [facility] Last Admin: 06/08/19 11:06 Dose: 200 mg Gen: vented, awake and alert Heart: irregular Lung: scattered rhonchi Abd: soft, nontender Ext: trace edema Laboratory Results - last 24 hr 06/07/19 06/07/19 06/08/19 17:33 23:39 06:13 POC Glucometer 80 86 108 06/08/19 11:22 POC Glucometer 163 A/P Acute Hypoxic and Hypercapneic Respiratory Failure s/p tracheostomy Pneumonia Gram Positive Bacteremia Septic Shock resolved Lactic Acidosis resolved ARDS resolved Paroxysmal Atrial Fluter with RVR Acute on Chronic Diastolic Heart Failure Acute on Chronic Renal Failure r/o Guillian [place] Syndrome DM Anemia Sarcoidosis - completed antibiotics - rate control - daily PMV trials - spontaneous breathing trials as tolerated - DC planning Dr Maya
--- NOTE | 2019-06-08 13:59 | PN ---
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 (short form) - Note 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: SUBJECTIVE: Awake, speaking. Feels well, no complaints. OBJECTIVE: Afebrile, Hemodynamically Stable. Comfortable. Trach/Vent. PMV on, eating. Last Vital Signs Temp Pulse Resp BP Pulse Ox 98.7 F 70 23 H 121/75 100 06/08/19 08:46 06/08/19 11:00 06/08/19 13:00 06/08/19 11:00 06/08/19 13:00 HEENT: s/p Trach to Vent. Making eye contact, following commands, speaking/ eating. HEART: S1, S2, RRR LUNGS: good air entry bilaterally ABDOMEN: High BMI, soft, non-tender, non-distended, normal BS. PEG in situ. EXTREMITIES: Trace edema, no calf tenderness. Neuro: Awake, Alert, following commands. Power much improved 4/5 all extremities. Laboratory Results - last 24 hr 06/07/19 06/07/19 06/08/19 17:33 23:39 06:13 POC Glucometer 80 86 108 06/08/19 11:22 POC Glucometer 163 Current Medications Generic Name Dose Route Start Last Admin Trade Name Freq PRN Reason Stop Dose Admin Acetaminophen 650 mg 06/02/19 00:22 06/04/19 12:39 Tylenol Oral Solution - GT 650 mg Q6H PRN Administration Fever Or Pain Amino Acids 30 ml 06/02/19 08:00 06/08/19 08:56 Prosource No Carb Liquid Pkt PO 30 ml BID@0800,1730 ELISSA Administration Apixaban 5 mg 06/02/19 10:00 06/08/19 11:06 Eliquis - PEG 5 mg BID ELISSA Administration Atorvastatin Calcium 40 mg 06/02/19 22:00 06/07/19 23:42 Lipitor - PO 40 mg HS ELISSA Administration Docusate Sodium 200 mg 06/02/19 00:22 Colace Liquid - GT DAILY PRN CONSTIPATION Ferrous Sulfate 300 mg 06/02/19 10:00 06/08/19 11:06 Feosol NGT 300 mg BID ELISSA Administration Insulin Aspart 1 vial 06/02/19 07:00 06/08/19 11:24 Novolog Vial Sliding Scale - SQ 3 unit ACHS ELISSA Administration Protocol Insulin Detemir 14 units 06/06/19 07:00 06/08/19 07:34 Levemir Vial SQ 14 units AM [facility]ISSA Administration Lisinopril 10 mg 06/08/19 10:00 06/08/19 11:06 Prinivil NGT 10 mg DAILY [facility] Administration Metoprolol Tartrate 25 mg 06/07/19 22:00 06/08/19 11:06 Lopressor - GT Not Given BID [facility] Nystatin 500,000 units 06/02/19 06:00 06/08/19 12:26 Nystatin Oral Suspension - PO 500,000 units Q6HPO ELISSA Administration Pantoprazole Sodium 40 mg 06/02/19 10:00 06/08/19 11:07 Protonix - PO Not Given DAILY [facility] Polyethylene Glycol 17 gm 06/02/19 10:00 06/08/19 11:12 Miralax (For Daily Use) - GT Not Given DAILY [facility] Senna 8.8 mg 06/02/19 22:00 06/07/19 23:42 Senna Oral Solution - GT 8.8 mg HS [facility] Administration Tamsulosin HCl 0.4 mg 06/04/19 12:10 06/08/19 08:56 Flomax - PO 0.4 mg DAILY@0830 [facility] Administration Thiamine HCl 200 mg 06/03/19 10:00 06/08/19 11:06 Vitamin B1 - PO 200 mg DAILY ELISSA Administration Home Medications Medication Instructions Recorded Amino Acids/Protein Hydrolys 30 ml PO BID@0800,1730 packet 06/06/19 [Prosource No Carb Liquid Pkt] Apixaban [Eliquis -] 5 mg PEG BID tablet 06/06/19 Atorvastatin Ca [Lipitor] 40 mg PO HS tablet 06/06/19 Docusate Liquid [Colace Liquid -] 200 mg GT DAILY PRN ud 06/06/19 Ferrous Sulfate [Feosol] 300 mg NGT BID [facility] 06/06/19 Furosemide Oral Solution [Lasix 40 mg NGT DAILY [facility] 06/06/19 Oral Solution -] Insulin (Levemir) [Levemir Vial] 14 units SQ AM units 06/06/19 Insulin Sliding Scale [Novolog 1 vial SQ ACHS units 06/06/19 Vial Sliding Scale -] Nystatin Oral Suspension - 500,000 units PO Q6HPO cup 06/06/19 [Nystatin Oral Susp 642491 Units/5 ML -] Pantoprazole Sodium [Protonix -] 40 mg PO DAILY tablet.ec 02/28/20 Tamsulosin HCl [Flomax -] 0.4 mg PO DAILY@0830 cap.er.24h 06/06/19 Thiamine HCl [Vitamin B1 -] 200 mg PO DAILY tablet 06/06/19 Metoprolol Tartrate [Lopressor -] 25 mg GT BID tablet 06/07/19 Diltiazem [Cardizem -] 30 mg PO TID #90 tablet 06/08/19 ASSESSMENT AND PLAN: 53 year old male with Obesity, DM 2, Sarcoidosis, Hx Systolic CHF (EF 45-50%, now EF normal), EMMY (non-adherent with CPAP), and Atrial Flutter presented with sudden onset of shortness of breath, requiring intubation and mechanical ventilation, with prolonged hospitalization. 1. Acute Hypoxic and Hypercapneic Respiratory Failure secondary to Acute Diastolic CHF +/- PNA Extubated 05/09/19 and re-intubated 05/13/19 s/p Trach 05/22 Completed period of IV Lasix diuresis (EF previously 45%, now EF normal) and antibiotic course for PNA (ESBL-positive sputum). On maintenance dose Lasix 40mg. MBS done - recommendation by ST for dysphagia ground diet with nectar thick liquids; PMV with cuff deflated at mealtimes, feeds via PEG at night to supplement. Vent weaning/spontaneous breathing trials as per Pulm. Ongoing PT at SNF. 2. Cardiogenic Shock sec to Acute Diastolic CHF vs Septic Shock sec to PNA, etiology unclear - resolved, off pressors. Weaned off Levophed and Vasopressin Blood Cx - Staph epi, likely contaminant. Echo - no vegetations. Repeat Blood Cx neg x 2. Another set Blood Cx pending due to recurrence of fever. Completed Meropenem course or ESBL Pneumonia Cardiology following - for out-patient Cardiac MRI to assess degree of sarcoid involvement. 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 Responding well - now able to speak, move arms/legs (previously unable to) Dispo to SNF for vent management and ongoing Rehab for functional recovery 4. Atrial flutter with RVR - resolved, fine balance of rate control , medications to prevent hypotension - recommendation as per discussion with Dr. Encinas - Metoprolol 25 BID, Diltiazem 30 TID. Lisinopril held to allow more BP room for up-titration of rate control meds. Continue Eliquis. 5. RYNE with Hyperkalemia - likely secondary to Cardiorenal phenomenon, resolved. Nephrology following. Daily Lasix. 6. Hx Sarcoidosis - Pulm follow up on discharge. 7. DM 2 - Insulin drip transitioned to Detemir/Novolog as per sliding scale. 8. Iron Deficiency Anemia - FeSO4 supplementation. No evidence of active blood loss. For out-patient Ix. DVT Px - on Eliquis GI Px - Protonix. Nutrition - Oral and PEG feeds. Dispo - Medically stable for discharge to SNF. Visit type - Emergency Visit Emergency Visit: Yes ED Registration Date: 04/30/19 Care time: The patient presented to the Emergency Department on the above date and was hospitalized for further evaluation of their emergent condition. - New Patient This patient is new to me today: No - Critical Care Critical Care patient: No - Discharge Referral Referred to [facility] No
== END 2019-06-08 15:35 | DRG 4 ==
LOC: JER 04:16 → JERBED 06:37 → JICU 09:19 → J5S 05-23 22:35 → JICU 05-28 14:33 → J5S 06-02 00:05
PROVIDERS: ADMIT Internal Medicine
PROC: 0BH17EZ Insertion of Endotracheal Airway into Trachea, Via Natural or Artificial Opening (ICD-10-PCS; principal; 2019-04-30)
PROC: 5A1955Z Respiratory Ventilation, Greater than 96 Consecutive Hours (ICD-10-PCS; 2019-04-30)
PROC: 05HN33Z Insertion of Infusion Device into Left Internal Jugular Vein, Percutaneous Approach (ICD-10-PCS; 2019-04-30)
PROC: B514ZZA Fluoroscopy of Left Jugular Veins, Guidance (ICD-10-PCS; 2019-04-30)
PROC: 03H533Z Insertion of Infusion Device into Right Axillary Artery, Percutaneous Approach (ICD-10-PCS; 2019-05-01)
PROC: 05HM33Z Insertion of Infusion Device into Right Internal Jugular Vein, Percutaneous Approach (ICD-10-PCS; 2019-05-13)
PROC: B513ZZA Fluoroscopy of Right Jugular Veins, Guidance (ICD-10-PCS; 2019-05-13)
PROC: 05HN33Z Insertion of Infusion Device into Left Internal Jugular Vein, Percutaneous Approach (ICD-10-PCS; 2019-05-19)
PROC: B514ZZA Fluoroscopy of Left Jugular Veins, Guidance (ICD-10-PCS; 2019-05-19)
PROC: 0B113F4 Bypass Trachea to Cutaneous with Tracheostomy Device, Percutaneous Approach (ICD-10-PCS; 2019-05-22)
PROC: 0BJ08ZZ Inspection of Tracheobronchial Tree, Via Natural or Artificial Opening Endoscopic (ICD-10-PCS; 2019-05-22)
DX: A41.51 Sepsis due to Escherichia coli [E. coli] (principal); J96.01 Acute respiratory failure with hypoxia; R57.0 Cardiogenic shock; J18.9 Pneumonia, unspecified organism; R65.21 Severe sepsis with septic shock; I50.33 Acute on chronic diastolic (congestive) heart failure; G93.41 Metabolic encephalopathy; J96.02 Acute respiratory failure with hypercapnia; I48.92 Unspecified atrial flutter; N17.9 Acute kidney failure, unspecified; Z68.41 Body mass index [BMI] 40.0-44.9, adult; E87.2 Acidosis; I13.0 Hypertensive heart and chronic kidney disease with heart failure and stage 1 through stage 4 chronic kidney disease, or unspecified chronic kidney disease; M86.8X7 Other osteomyelitis, ankle and foot; E87.3 Alkalosis; E87.0 Hyperosmolality and hypernatremia; G61.0 Guillain-Barre syndrome; M54.5 Low back pain; I25.10 Atherosclerotic heart disease of native coronary artery without angina pectoris; E11.9 Type 2 diabetes mellitus without complications; E87.5 Hyperkalemia; E66.01 Morbid (severe) obesity due to excess calories; R00.0 Tachycardia, unspecified; I45.10 Unspecified right bundle-branch block; R26.89 Other abnormalities of gait and mobility; I44.39 Other atrioventricular block; R40.4 Transient alteration of awareness; G47.33 Obstructive sleep apnea (adult) (pediatric); D86.89 Sarcoidosis of other sites; E11.22 Type 2 diabetes mellitus with diabetic chronic kidney disease; N18.2 Chronic kidney disease, stage 2 (mild); E11.69 Type 2 diabetes mellitus with other specified complication; E11.65 Type 2 diabetes mellitus with hyperglycemia; R53.1 Weakness; D50.0 Iron deficiency anemia secondary to blood loss (chronic); E87.70 Fluid overload, unspecified; R50.9 Fever, unspecified; Z91.19 Patient's noncompliance with other medical treatment and regimen
CPT/HCPCS: 31500; 36415; 36600; 49440; 62272; 70450-TC; 71045-TC-FY; 71250-TC; 74018-TC-FY; 74230-TC-FY; 76775-TC; 80048; 80053; 80061; 80076; 80162; 81003; 82272; 82375; 82550; 82553; 82728; 82803; 82945; 82962; 83036; 83050; 83540; 83550; 83605; 83721; 83735; 83873; 83880; 83916; 84100; 84157; 84443; 84484; 85025; 85027; 85610; 85730; 86480; 86694; 86735; 86765; 86787; 86788; 86789; 86803; 87040; 87070; 87086; 87186; 87205; 87389; 87633; 87804; 87899; 92611-GN; 93005; 93010; 93306-TC; 94002; 94640; 94660; 95816; 99285-25; G0480; J0131; J0282; J1459; J1644; J7030

== ENCOUNTER 2019-09-27 04:49 | Inpatient (IN) | payer BC, OTHER ==
--- NOTE | 2019-09-27 05:00 | PDOC ---
History of Present Illness - General Stated Complaint: SOB Time Seen by Provider: 09/27/19 05:00 - History of Present Illness Initial Comments: 09/27/19 05:03 53 yo M with a hx of diastolic CHF, tracheostomy secondary to respiratory failure with reversal, afib/aflutter on eliquis, sarcoidosis, Guillain [place], morbid obesity, pulmonary edema, intubated (08/2019), cardiac arrest (08/2019) who presents with shortness of breath. Per EMS the patient was feeling short of breath for the past few days and was complaining of chest pain. The patient was satting 86 on RA with audible wheeze and was placed on CPAP. ROS GENERAL/CONSTITUTIONAL: No fever or chills. No weakness. HEAD, EYES, EARS, NOSE AND THROAT: No change in vision. No ear pain or discharge. No sore throat. CARDIOVASCULAR: + chest pain or shortness of breath RESPIRATORY: + cough, wheezing, or hemoptysis. GASTROINTESTINAL: No nausea, vomiting, diarrhea or constipation. GENITOURINARY: No dysuria, frequency, or change in urination. MUSCULOSKELETAL: No joint or muscle swelling or pain. No neck or back pain. SKIN: No rash NEUROLOGIC: No headache, vertigo, loss of consciousness, or change in strength/sensation. ENDOCRINE: No increased thirst. No abnormal weight change HEMATOLOGIC/LYMPHATIC: No anemia, easy bleeding, or history of blood clots. ALLERGIC/IMMUNOLOGIC: No hives or skin allergy. PE GENERAL: Awake, alert, and fully oriented, on NRB HEAD: No signs of trauma, normocephalic, atraumatic EYES: EOMI, sclera anicteric, conjunctiva clear ENT: oropharynx clear without exudates. Moist mucosa NECK: Normal ROM, supple LUNGS: No distress, speaks full sentences, crackles anteriorly, significant accessory muscle use HEART: Regular rate and rhythm, normal S1 and S2, no murmurs, rubs or gallops, peripheral pulses normal and equal bilaterally. ABDOMEN: Soft, nontender. No guarding, no rebound. No masses EXTREMITIES : Normal inspection, Normal range of motion, + bilat pitting edema. No clubbing or cyanosis. NEUROLOGICAL: Cranial nerves II through XII grossly intact. Normal speech, no focal sensorimotor deficits SKIN: Warm, Dry, normal turgor, no rashes or lesions noted Assessment and Plan 53 yo M with a hx of diastolic CHF, tracheostomy secondary to respiratory fail ure with reversal, afib/aflutter on eliquis, sarcoidosis, Guillain [place], morbid obesity, and pulmonary edema who presents with shortness of breath. Concern for CHF exacber, pulm edema - EKG without evidence on inferior infarct - nitro, lasix - Bipap CXR: patchy infiltrate, R small pleural effusion as read by this loan underwriter, pending radiology read EKG: A flutter at 98bpm, nonspecific T waves changes Discussed case with ICU resident Dr. Oliva, who will sign out patient to the day team. labs with hypercapnia and acidosis on VBG BNP elevated Patient with UTI and concern for covid vs pna cef, azithro, vanco Pt endorsed to caring resident Dr. Pascual bradshaw admission Sravanthi Meza, PGY2 Emergency Medicine Past History - Medical History Allergies/Adverse Reactions: Allergies Allergy/AdvReac Type Severity Reaction Status Date / Time No Known Allergies Allergy Verified 06/30/19 02:42 Home Medications: Ambulatory Orders Amino Acids/Protein Hydrolys [Prosource No Carb Liquid Pkt] 30 ml PO BID@0800,1730 packet 06/06/19 Ferrous Sulfate [Feosol] 300 mg NGT BID udc 06/06/19 Insulin (Levemir) [Levemir Vial] 14 units SQ AM units 06/06/19 Insulin Sliding Scale [Novolog Vial Sliding Scale -] 1 vial SQ ACHS units 06/06/19 Thiamine HCl [Vitamin B1 -] 200 mg PO DAILY tablet 06/06/19 Finasteride 5 mg PO DAILY 06/30/19 Albuterol 2.5/Ipratropium 0.5 [Duoneb -] 1 amp NEB RTID #120 amp 09/18/19 Apixaban [Eliquis -] 5 mg PEG BID #60 tablet 09/18/19 Atorvastatin Ca [Lipitor] 40 mg PO HS #30 tablet 09/18/19 Diltiazem Cd [Cardizem Cd -] 240 mg PO DAILY #30 cap.cd.24h 09/18/19 Insulin Sliding Scale [Novolog Vial Sliding Scale -] 1 vial SQ ACHS units 09/18/19 Lisinopril 10 mg PO DAILY #30 tablet 09/18/19 Metoprolol Tartrate [Lopressor -] 50 mg GT BID #60 tablet 09/18/19 Pantoprazole Sodium [Protonix -] 40 mg PO DAILY #30 tablet.ec 09/18/19 Cardiac Disorders: Yes (A-flutter) COPD: No CHF: Yes Diabetes: Yes HTN: Yes - Psycho-Social/Smoking History Smoking History: Former smoker Have you smoked in the past 12 months: No If you are a former smoker, when did you quit?: 25 yrs ago ED Treatment Course - LABORATORY CBC & Chemistry Diagram: 10/03/19 05:40 10/03/19 05:40 Discharge - Discharge Information Problems reviewed: Yes Clinical Impression/Diagnosis: Respiratory distress, Acute respiratory failure with hypoxia and hypercapnia CHF (congestive heart failure) Qualifiers: Heart failure type: unspecified Heart failure chronicity: acute on chronic Qualified Code(s): I50.9 - Heart failure, unspecified Condition: Critical - Follow up/Referral - Patient Discharge Instructions - Post Discharge Activity
[2019-09-27] MEDS ORDERED: FUROSEMIDE 40 MG/4 ML INJECTABLE VIAL IVPUSH ONE ×2 (05:01→07:55)
[2019-09-27] MEDS ORDERED: NITROGLYCERIN SUBLINGUAL 1/150 0.4 MG TAB SL ONE (05:01)
[2019-09-27] MEDS ORDERED: FUROSEMIDE 40 MG/4 ML INJECTABLE VIAL ONE ×2 (05:06→07:49)
[2019-09-27 05:46] LABS: BASO % 0.4 % (0-2.0); EOS % 1.3 % (0-4.5); HEMATOCRIT 30.8 % (35.4-49); HEMOGLOBIN 9.6 GM/dL (11.7-16.9); LYMPH % 4.9 % (8-40); MCHC 31.3 g/dl (32.0-35.9); MONO % 9.1 % (3.8-10.2); NEUT % 84.3 % (42.8-82.8); PLATELET COUNT 217 K/MM3 (134-434); RBC 3.71 M/mm3 (4.00-5.60); RDW 17.4 % (11.9-15.9); WHITE BLOOD COUNT 6.5 K/mm3 (4.0-10.0)
[2019-09-27 05:55] LABS: VENOUS BASE EXCESS -0.6 mmol/L (-2-2); VENOUS O2 SATURATION 50.1 % (70-80)
[2019-09-27 05:58] LABS: VENOUS PCO2 75.3 mmHg (38-52); VENOUS PH 7.199 (7.310-7.410)
--- NOTE | 2019-09-27 06:01 | PDOC ---
Attending Attestation - Resident Resident Name: Sravanthi Meza - ED Attending Attestation I have performed the following: I have examined & evaluated the patient, The case was reviewed & discussed with the resident, I agree w/resident's findings & plan, Exceptions are as noted - HPI HPI: 09/27/19 05:55 53-year-old male history of CHF hypertension morbid obesity recent cardiac arrest secondary to pericardial effusion here today complaining of progressive shortness of breath for the last 2 days. Patient denies any fevers or chills has been having chest pain intermittently also has a history of bilateral leg swelling which is somewhat worse recently shortness of breath is worse with lying flat and walking today he called EMS because he felt the shortness of breath become extremely worse no histories of blood clots in his legs or his lungs previously no known history of previously having bed COVID positive patient does take water pills at home - Physicial Exam PE: 09/27/19 05:57 Patient is awake alert appears to be in mild distress with increased work of breathing accessory muscle use is currently on CPAP by EMS lungs are with bilateral rhonchorous crackles accessory muscle use no audible wheezing heart is regular no appreciated murmurs rubs or gallops abdomen is soft nontender obese legs are with bilateral pitting edema 2+ DP pulses bilaterally neurologically the patient is awake alert and oriented x3 - Medical Decision Making 09/27/19 05:59 53-year-old male history of morbid obesity hypertension COPD CHF a flutter recent cardiac arrest here with worsening shortness of breath most likely CHF exacerbation. Differential includes COVID-19 infection, pneumonia, COPD, PE is less likely patient is currently on Eliquis Plan portable chest x-ray focused ED ultrasound cardiac and lung was performed basic labs including CMP BNP troponin EKG CBC COVID-19 lactate and blood cultures. Focused ED ultrasound was performed patient has moderately reduced contractility of the left ventricle the RV appears dilated is not hypocontractile the IVC is with good mobility there is a trace pericardial effusion noted Focused ED lung ultrasound shows bilateral B-lines anteriorly at the bases with lung rockets there is no appreciated pleural effusion there is a small air bronchograms seen at the right base consistent with pulmonary edema possible atelectasis versus infiltrate Portable chest x-ray shows bilateral [place] edema questionable infiltrate at the right retrocardiac area Patient was given nitro sublingual for presumed CHF Lasix was ordered for diuresis COVID swab was sent and pending patient be admitted currently on BiPAP likely to the ICU Heart Score/ECG Review #1 ECG reviewed & interpreted by me at: 06:01 General ECG Interpretation: Normal Rate, Normal Intervals, No acute ischemic changes ([address] elevation or depression.) Discharge - Discharge Information Problems reviewed: Yes Clinical Impression/Diagnosis: Respiratory distress, Acute respiratory failure with hypoxia and hypercapnia CHF (congestive heart failure) Qualifiers: Heart failure type: unspecified Heart failure chronicity: acute on chronic Qualified Code(s): I50.9 - Heart failure, unspecified Condition: Critical - Follow up/Referral - Patient Discharge Instructions - Post Discharge Activity
[2019-09-27 06:07] LABS: INR 1.02 (0.83-1.09)
[2019-09-27 06:09] LABS: ACTIVATED PTT 34.1 SECONDS (25.2-36.5)
[2019-09-27 06:27] LABS: ALBUMIN 2.9 g/dl (3.4-5.0); ALK PHOS 244 U/L (45-117); ANION GAP 4 MMOL/L (8-16); BILIRUBIN,TOTAL 0.4 mg/dL (0.2-1); BLOOD UREA NITROGEN 14.8 mg/dL (7-18); CALCIUM 7.6 mg/dL (8.5-10.1); CHLORIDE 103 mmol/L (98-107); CO2 31 mmol/L (21-32); CREATININE 1.1 mg/dL (0.55-1.3); GLUCOSE,RANDOM 251 mg/dL (74-106); N-TERMINAL BNP 2129.1 pg/ml (5-125); POTASSIUM 4.7 mmol/L (3.5-5.1); SGOT/AST 14 U/L (15-37); SGPT/ALT 21 U/L (13-61); SODIUM 138 mmol/L (136-145)
[2019-09-27 06:39] LABS: EPI CELLS 3 /uL (0-25.1); HYALINE CASTS 14 /uL (0-3.1); URINE APPEARANCE CLOUDY; URINE BILIRUBIN NEGATIVE (NEGATIVE); URINE COLOR YELLOW; URINE GLUCOSE (UA) 2+ (NEGATIVE); URINE KETONE NEGATIVE (NEGATIVE); URINE LEUK ESTERASE 2+ (NEGATIVE); URINE NITRITE POSITIVE (NEGATIVE); URINE PROTEIN 2+ (NEGATIVE); URINE RBC 12 /uL (0-23.9); URINE UROBILINOGEN 0.2 mg/dL (0.2-1.0); URINE WBC 561 /uL (0-25.8)
[2019-09-27] MEDS ORDERED: ACETAMINOPHEN 1000 MG/100 ML VIAL (NON FORMULARY) IVPB ONE (06:50)
[2019-09-27] MEDS ORDERED: AZITHROMYCIN IVPB 500 MG in DEXTROSE 5%-WATER - 250 ML IVPB ONE (07:00)
[2019-09-27] MEDS ORDERED: VANCOMYCIN 1,000 MG in DEXTROSE 5%-WATER - 250 ML IVPB ONE (07:00)
[2019-09-27] MEDS ORDERED: ACETAMINOPHEN INJECTION 100 ML IVPB ONE (07:29)
[2019-09-27] MEDS ORDERED: VANCOMYCIN 1 GRAM (PRE-DOCKED) 1,000 MG/250 ML BAG IVPB ONE (07:30)
[2019-09-27] MEDS ORDERED: AZITHROMYCIN IVPB 500 MG/250 ML BAG IVPB ONE (07:30)
[2019-09-27] MEDS ORDERED: cefTRIAXone SODIUM 1 GM VIAL ONE (07:30)
--- NOTE | 2019-09-27 07:48 | PDOC ---
*Physical Exam - Vital Signs Last Vital Signs Temp Pulse Resp BP Pulse Ox 98.3 F 95 H 35 H 107/70 95 09/27/19 06:27 09/27/19 06:27 09/27/19 06:27 09/27/19 06:27 09/27/19 06:27 ED Treatment Course - LABORATORY CBC & Chemistry Diagram: 09/27/19 05:20 09/27/19 05:20 - ADDITIONAL ORDERS Additional order review: Laboratory Results 09/27/19 09/27/19 09/27/19 06:09 05:20 05:20 PT with INR INR PTT (Actin FS) VBG pH 7.199 L* POC VBG pCO2 75.3 H* POC VBG pO2 < 46.9 VBG HCO3 28.7 VBG O2 Sat (Rebel) 50.1 L VBG Base Excess -0.6 Sodium Potassium Chloride Carbon Dioxide Anion Gap BUN Creatinine Est GFR (CKD-EPI)AfAm Est GFR (CKD-EPI)NonAf Random Glucose Lactic Acid 1.8 Calcium Total Bilirubin AST ALT Alkaline Phosphatase Troponin I B-Natriuretic Peptide Total Protein Albumin Urine Color Yellow Urine Appearance Cloudy Urine pH 5.0 Ur Specific Randolph 1.017 Urine Protein 2+ H Urine Glucose (UA) 2+ H Urine Ketones Negative Urine Blood 1+ H Urine Nitrite Positive H Urine Bilirubin Negative Urine Urobilinogen 0.2 Ur Leukocyte Esterase 2+ H Urine WBC (Auto) 561 Urine RBC (Auto) 12 Urine Casts (Auto) 14 U Epithel Cells (Auto) 3 Urine Bacteria (Auto) >10,000 09/27/19 09/27/19 05:20 05:20 PT with INR 12.00 INR 1.02 PTT (Actin FS) 34.1 VBG pH POC VBG pCO2 POC VBG pO2 VBG HCO3 VBG O2 Sat (Rebel) VBG Base Excess Sodium 138 Potassium 4.7 Chloride 103 Carbon Dioxide 31 Anion Gap 4 L BUN 14.8 Creatinine 1.1 Est GFR (CKD-EPI)AfAm 89.61 Est GFR (CKD-EPI)NonAf 77.32 Random Glucose 251 H Lactic Acid Calcium 7.6 L Total Bilirubin 0.4 AST 14 L ALT 21 Alkaline Phosphatase 244 H Troponin I < 0.02 B-Natriuretic Peptide 2129.1 H Total Protein 6.0 L Albumin 2.9 L Urine Color Urine Appearance Urine pH Ur Specific [place] Urine Protein Urine Glucose (UA) Urine Ketones Urine Blood Urine Nitrite Urine Bilirubin Urine Urobilinogen Ur Leukocyte Esterase Urine WBC (Auto) Urine RBC (Auto) Urine Casts (Auto) U Epithel Cells (Auto) Urine Bacteria (Auto) 09/27/19 05:20 RBC 3.71 L MCV 83.0 MCHC 31.3 L RDW 17.4 H MPV 8.0 D Neutrophils % 84.3 H Lymphocytes % 4.9 L Monocytes % 9.1 Eosinophils % 1.3 Basophils % 0.4 D - Medications Given in the ED: ED Medications Discontinued Medications Generic Name Dose Route Start Last Admin Trade Name Freq PRN Reason Stop Dose Admin Furosemide 40 mg 09/27/19 05:01 09/27/19 05:45 Lasix Injection - IVPUSH 09/27/19 05:02 40 mg ONCE ONE Administration Nitroglycerin 0.4 mg 09/27/19 05:01 09/27/19 05:10 Nitrostat - SL 09/27/19 05:02 0.4 mg ONCE ONE Administration Medical Decision Making - Medical Decision Making Pt was signed out to me by resident Dr. Meza, who explained the presentation, ED course, any pending results, and needed interventions. Pt has received 40 mg IV lasix, 0.4 SL NG, and placed on BIPAP. Pt pending admission. Contacted ICU team, due to pts difficult intubation, increased work of breathing post-lasix and with BIPAP. Pt states breathing is improved from presentation. UA with +nitrite, bacteria, LE. Chest x-ray with increased patchy infiltrates Provided 1 g rocephin, 500 azithromycin, 1 g vancomycin Pending disposition. 09/27/19 07:45 Pt accepted to ICU Anesthesia called to intubate due to worsening mental status, hypercapnia. Pt intubated first attempt by anesthesia. Providing fentanyl and versed for post-sedation. 09/27/19 08:50 Discharge - Discharge Information Problems reviewed: Yes Clinical Impression/Diagnosis: Respiratory distress, Acute respiratory failure with hypoxia and hypercapnia CHF (congestive heart failure) Qualifiers: Heart failure type: unspecified Heart failure chronicity: acute on chronic Qualified Code(s): I50.9 - Heart failure, unspecified Condition: Critical - Admission Yes - Follow up/Referral - Patient Discharge Instructions - Post Discharge Activity
[2019-09-27 08:14] LABS: ARTERIAL BLD GAS O2 SATURATION 84.2 mmHg (95-98); ARTERIAL BLOOD GAS BASE EXCESS -1.2 mmol/L (-2-2); ARTERIAL BLOOD GAS PO2 62.4 mmHg (80-100)
[2019-09-27 08:20] LABS: ARTERIAL BLOOD GAS pH 7.167 (7.350-7.450)
[2019-09-27 08:22] LABS: ALLENS TEST POSITIVE
[2019-09-27 08:23] LABS: VENT MODE S/T; VENT RATE 16/36
[2019-09-27] MEDS ORDERED: RAPID SEQUENCE INTUBATION KIT NR ONE (08:29)
[2019-09-27 08:36] LABS: CARBOXYHEMOGLOBIN 0.8 % (0-2)
[2019-09-27] MEDS ORDERED: fentaNYL CITRATE 250 MCG/5 ML VIAL ONE (09:07)
[2019-09-27] MEDS ORDERED: MIDAZOLAM IN 0.9 % SOD.CHLORID 1 MG/1 ML PLAST..BAG ONE ×2 (09:09→21:16)
--- NOTE | 2019-09-27 09:18 | PROC ---
Intubation - Intubation Reason for Intubation: Respiratory Failure Time of Intubation: 08:55 Intubation Method: orotracheal Blade used: Glidescope Tube Size (cm): 8.0 Tube position @ lip (cm): 24 Tube position confirmed by: Direct visualization, CO2 detector, Breath sounds Breath Sounds after Intubation: equal Post Intubation Xray: Yes
[2019-09-27] MEDS: MIDAZOLAM 100 MG in SODIUM CHLORIDE 100 ML IVPB SCH (09:27)
[2019-09-27] MEDS: FENTANYL NS IVPB 500 MCG/100 ML BAG IVPB SCH (09:28)
[2019-09-27] MEDS ORDERED: SODIUM CHLORIDE 1,000 ML IV STA (09:32)
[2019-09-27] MEDS ORDERED: NOREPINEPHRINE BITARTRATE 4 MG/4 ML ML IV ONE (09:46)
[2019-09-27] MEDS: NOREPINEPHRINE BITARTRATE 16,000 MCG in SODIUM CHLORIDE 484 ML IV SCH (09:55)
[2019-09-27] MEDS ORDERED: PROPOFOL 1,000,000 MCG/100 ML VIAL ONE ×2 (10:55→18:22)
--- NOTE | 2019-09-27 11:59 | CONSULT ---
Consultation: REQUESTING PROVIDER: CONSULT REQUEST: We have been asked to medically evaluate this patient for shortness of breath. HISTORY OF PRESENT ILLNESS: 53 yo m w/ dDHF, afib/flutter on eliquis, sarcoidosis, guillan barre, morbid obesity, tracheostomy 2/2 respiratory failure s/p reversal comes into the ed c/o worsening SOB for the past 1 day. The patient associates this with chest pain as well. On EMS arrival, patient was SOB and hypoxic and was placed on cpap. Patient was placed on BiLevel upon arrival to the ED. Just after my assessment of the patient, he decompensated and required intubation and pressors. REVIEW OF SYSTEMS: negative except for HPI PHYSICAL EXAMINATION Vital Signs - 24 hr 09/27/19 09/27/19 09/27/19 04:55 05:11 06:25 Temperature 98.2 F Pulse Rate 100 H Pulse Rate [ Left] Respiratory 30 H Rate Blood Pressure 142/74 Blood Pressure [Right Arm] O2 Sat by Pulse 100 97 96 Oximetry (%) 09/27/19 09/27/19 09/27/19 06:27 08:00 08:45 Temperature 98.3 F 98.3 F Pulse Rate Pulse Rate [ 95 H 115 H Left] Respiratory 35 H 12 Rate Blood Pressure Blood Pressure 107/70 142/85 [Right Arm] O2 Sat by Pulse 95 100 Oximetry (%) 09/27/19 09/27/19 09/27/19 09:00 09:30 09:45 Temperature Pulse Rate Pulse Rate [ 109 H 95 H 85 Left] Respiratory 25 H 12 12 Rate Blood Pressure Blood Pressure 105/50 L 61/40 L 55/30 L [Right Arm] O2 Sat by Pulse 100 Oximetry (%) 09/27/19 09/27/19 09/27/19 09:55 10:00 10:11 Temperature Pulse Rate 84 Pulse Rate [ 82 Left] Respiratory 12 12 Rate Blood Pressure 52/27 L Blood Pressure 85/50 L 98/62 [Right Arm] O2 Sat by Pulse Oximetry (%) 09/27/19 10:40 Temperature Pulse Rate Pulse Rate [ Left] Respiratory 21 H Rate Blood Pressure Blood Pressure [Right Arm] O2 Sat by Pulse 100 Oximetry (%) GENERAL: Awake, alert, and fully oriented, in moderate respiratory distress. HEAD: Normal with no signs of trauma. EYES: Pupils equal, round and reactive to light, extraocular movements intact, sclera anicteric, conjunctiva clear. No lid lag. LUNGS: Breath sounds equal. Coarse inspiratory crackles b/l. patient is using accessory muscles to breathe. Patient on NIPPV. HEART: Regular rhythm, Tachycardia, normal S1 and S2 without murmur, rub or gallop. ABDOMEN: Soft, nontender, not distended, normoactive bowel sounds, no guarding, no rebound, no masses. No hepatomegaly or splenomegaly. LOWER EXTREMITIES: 2+ pulses, warm, well-perfused. No calf tenderness. No peripheral edema. NEUROLOGICAL: Cranial nerves II-X intact. moving all 4 limbs spontaneously. Laboratory Results - last 24 hr 09/27/19 09/27/19 09/27/19 05:20 05:20 05:20 WBC 6.5 RBC 3.71 L Hgb 9.6 L Hct 30.8 L D MCV 83.0 MCH 26.0 MCHC 31.3 L RDW 17.4 H Plt Count 217 D MPV 8.0 D Absolute Neuts (auto) 5.5 Neutrophils % 84.3 H Lymphocytes % 4.9 L Monocytes % 9.1 Eosinophils % 1.3 Basophils % 0.4 D Nucleated RBC % 0 PT with INR 12.00 INR 1.02 PTT (Actin FS) 34.1 Anticoagulation Therapy Puncture Site Patient Temperature ABG pH ABG pCO2 ABG pO2 ABG HCO3 ABG O2 Sat (Measured) ABG O2 Content ABG Base Excess Adrian Test VBG pH POC VBG pCO2 POC VBG pO2 VBG HCO3 VBG O2 Sat (Rebel) VBG Base Excess Carboxyhemoglobin Methemoglobin Patient On Oxygen O2 Delivery Device Oxygen Flow Rate Vent Mode Vent Rate Mechanical Rate PEEP Pressure Support Vent Sodium 138 Potassium 4.7 Chloride 103 Carbon Dioxide 31 Anion Gap 4 L BUN 14.8 Creatinine 1.1 Est GFR (CKD-EPI)AfAm 89.61 Est GFR (CKD-EPI)NonAf 77.32 Random Glucose 251 H Lactic Acid Calcium 7.6 L Total Bilirubin 0.4 AST 14 L ALT 21 Alkaline Phosphatase 244 H Troponin I < 0.02 B-Natriuretic Peptide 2129.1 H Total Protein 6.0 L Albumin 2.9 L Urine Color Urine Appearance Urine pH Ur Specific [place] Urine Protein Urine Glucose (UA) Urine Ketones Urine Blood Urine Nitrite Urine Bilirubin Urine Urobilinogen Ur Leukocyte Esterase Urine WBC (Auto) Urine RBC (Auto) Urine Casts (Auto) U Epithel Cells (Auto) Urine Bacteria (Auto) 09/27/19 09/27/19 09/27/19 05:20 05:20 06:09 WBC RBC Hgb Hct MCV MCH MCHC RDW Plt Count MPV Absolute Neuts (auto) Neutrophils % Lymphocytes % Monocytes % Eosinophils % Basophils % Nucleated RBC % PT with INR INR PTT (Actin FS) Anticoagulation Therapy Puncture Site Patient Temperature ABG pH ABG pCO2 ABG pO2 ABG HCO3 ABG O2 Sat (Measured) ABG O2 Content ABG Base Excess Adrian Test VBG pH 7.199 L* POC VBG pCO2 75.3 H* POC VBG pO2 < 46.9 VBG HCO3 28.7 VBG O2 Sat (Rebel) 50.1 L VBG Base Excess -0.6 Carboxyhemoglobin Methemoglobin Patient On Oxygen O2 Delivery Device Oxygen Flow Rate Vent Mode Vent Rate Mechanical Rate PEEP Pressure Support Vent Sodium Potassium Chloride Carbon Dioxide Anion Gap BUN Creatinine Est GFR (CKD-EPI)AfAm Est GFR (CKD-EPI)NonAf Random Glucose Lactic Acid 1.8 Calcium Total Bilirubin AST ALT Alkaline Phosphatase Troponin I B-Natriuretic Peptide Total Protein Albumin Urine Color Yellow Urine Appearance Cloudy Urine pH 5.0 Ur Specific [place] 1.017 Urine Protein 2+ H Urine Glucose (UA) 2+ H Urine Ketones Negative Urine Blood 1+ H Urine Nitrite Positive H Urine Bilirubin Negative Urine Urobilinogen 0.2 Ur Leukocyte Esterase 2+ H Urine WBC (Auto) 561 Urine RBC (Auto) 12 Urine Casts (Auto) 14 U Epithel Cells (Auto) 3 Urine Bacteria (Auto) >10,000 09/27/19 07:50 WBC RBC Hgb Hct MCV MCH MCHC RDW Plt Count MPV Absolute Neuts (auto) Neutrophils % Lymphocytes % Monocytes % Eosinophils % Basophils % Nucleated RBC % PT with INR INR PTT (Actin FS) Anticoagulation Therapy No Result Required. Puncture Site Right radial Patient Temperature No Result Required. ABG pH 7.167 L* ABG pCO2 81.20 H* ABG pO2 62.4 L ABG HCO3 28.8 H ABG O2 Sat (Measured) 84.2 L ABG O2 Content No Result Required. ABG Base Excess -1.2 Adrian Test Positive VBG pH POC VBG pCO2 POC VBG pO2 VBG HCO3 VBG O2 Sat (Rebel) VBG Base Excess Carboxyhemoglobin 0.8 Methemoglobin < 1.0 Patient On Oxygen Yes O2 Delivery Device Bipap Oxygen Flow Rate 56 Vent Mode S/t Vent Rate 16/36 Mechanical Rate No Result Required. PEEP No Result Required. Pressure Support Vent 16/4 Sodium Potassium Chloride Carbon Dioxide Anion Gap BUN Creatinine Est GFR (CKD-EPI)AfAm Est GFR (CKD-EPI)NonAf Random Glucose Lactic Acid Calcium Total Bilirubin AST ALT Alkaline Phosphatase Troponin I B-Natriuretic Peptide Total Protein Albumin Urine Color Urine Appearance Urine pH Ur Specific [place] Urine Protein Urine Glucose (UA) Urine Ketones Urine Blood Urine Nitrite Urine Bilirubin Urine Urobilinogen Ur Leukocyte Esterase Urine WBC (Auto) Urine RBC (Auto) Urine Casts (Auto) U Epithel Cells (Auto) Urine Bacteria (Auto) Active Medications Generic Name Dose Route Start Last Admin Trade Name Freq PRN Reason Stop Dose Admin Fentanyl 500 mcg in 100 mls @ 27.216 mls/hr 09/27/19 09:00 09/27/19 09:28 Sublimaze Ivpb IVPB 0.18 mcg/kg/hr TITR ELISSA 5 mls/hr Administration Protocol 1 MCG/KG/HR Midazolam HCl 100 mg/ Sodium 100 mls @ 1 mls/hr 09/27/19 09:00 09/27/19 09:27 Chloride IVPB 4 mg/hr TITR ELISSA 4 mls/hr Administration Protocol 1 MG/HR Norepinephrine Bitartrate 16, 500 mls @ 9.375 mls/hr 09/27/19 09:45 09/27/19 09:55 000 mcg/ Sodium Chloride IV 10 mcg/min TITR ELISSA 18.75 mls/hr Administration Protocol 5 MCG/MIN ASSESSMENT/PLAN: 53 yo m w/ dDHF, afib/flutter on eliquis, sarcoidosis, guillan barre, morbid obesity, tracheostomy 2/2 respiratory failure s/p reversal comes into the ed c/o worsening SOB for the past 1 day. #Neuro -intubated and sedated on propofol/ versed #Cardio -h/o afib/aflutter on eliquis -Patient hypotensive s/p intubation -right IJ cvc inserted emergently -on norepinephrine for BP support, titrate to maintain a MAP >=65 -Patient with congestion on CXR and SOB possibly 2/2 CHF exacerbation r/o COVID pneumonia. -s/p 40mg lasix in ED -will give another 40mg lasix -monitor I&O -CVP monitoring #Pulmonary -acute hypoxic hypercapnic respiratory failure likely 2/2 CHF exacerbation r/o COVID pneumonia. -maintain saturation >88% -observe off abx for now, low threshold for empiric coverage #ID -possible covid pneumonitis -COVID PCR pending -Airbone isolation -trend inflammatory markers #Prophy -Protonix IV -Eliquis 5mg BID #FEN -holding fluids for now -monitor lytes -NPO Lines -Right IJ CVC insterted 09/26 -ortiz inserted 09/26 Dispo: -admit ICU -contacted patient's , Tana, to update her on situation. Patient verbalized understanding. Visit type - Emergency Visit Emergency Visit: Yes ED Registration Date: 09/27/19 Care time: The patient presented to the Emergency Department on the above date and was hospitalized for further evaluation of their emergent condition. - New Patient This patient is new to me today: Yes Date on this admission: 09/27/19 - Critical Care Critical Care patient: Yes Total Critical Care Time (in minutes): 60 Critical Care Statement: The care of this patient involved high complexity decision making to prevent further life threatening deterioration of the patient's condition and/or to evaluate & treat vital organ system(s) failure or risk of failure. ATTENDING PHYSICIAN STATEMENT I saw and evaluated the patient. I reviewed the resident's note and discussed the case with the resident. I agree with the resident's findings and plan as documented. SUBJECTIVE: OBJECTIVE: ASSESSMENT AND PLAN:
--- NOTE | 2019-09-27 12:05 | PROC ---
Central Line Insertion Indication: CVP Monitoring, Poor Venous Access, Sepsis, Vasopressor Risks and Benefits Explained: No (EMERGENT LINE) Consent on Chart: No (emergent line) Central Line: Triple Lumen Catheter Anesthesia: 1% Lidocaine Sterile Technique: Yes Ultrasound Guided Assistance: Yes Position: Right Internal Jugular Post Insertion: Yes: Bilateral Breath Sounds, Bilateral Chest Expansion, Chest X-Ray Ordered Sterile Dressing Applied: Yes Remarks: CVC placed for vasopressor administration. Line was placed under implied consent as patient's BP was decreaseing on max peripheral vasopressors
[2019-09-27] MEDS: PROPOFOL 1,000,000 MCG/100 ML VIAL IVPB SCH ×2 (12:55→23:00)
--- NOTE | 2019-09-27 13:40 | PN ---
Teaching Attending Note Name of Resident: Nain Mcduffie ATTENDING PHYSICIAN STATEMENT I saw and evaluated the patient. I reviewed the resident's note and discussed the case with the resident. I agree with the resident's findings and plan as documented. SUBJECTIVE: Patient seen and examined in the ER. Well known to me from multiple recent adm issions. Intubated by anesthesia. Transferred to the ICU. Intubated for acute hypercpaneic respiratory failure that did not respond to NIPPV support. Intake & Output 09/24/19 09/25/19 09/26/19 09/27/19 23:59 23:59 23:59 23:59 Output Total 700 Balance -700 Weight 300 lb Last Vital Signs Temp Pulse Resp BP Pulse Ox 96.0 F L 119 H 22 H 104/56 L 93 L 09/27/19 10:55 09/27/19 10:55 09/27/19 10:55 09/27/19 10:55 09/27/19 11:50 Active Medications Apixaban (Eliquis -) 5 mg PEG BID ELISSA Chlorhexidine Gluconate (Hibiclens For Decolonization -) 1 applic TP HS ELISSA Fentanyl (Sublimaze Ivpb) 500 mcg in 100 mls @ 27.216 mls/hr IVPB TITR ELISSA; Protocol Last Admin: 09/27/19 09:28 Dose: 0.18 mcg/kg/hr, 5 mls/hr Documented by: Midazolam HCl 100 mg/ Sodium (Chloride) 100 mls @ 1 mls/hr IVPB TITR ELISSA; Protocol Last Titration: 09/27/19 11:10 Dose: 5 mg/hr, 5 mls/hr Documented by: Norepinephrine Bitartrate 16, (000 mcg/ Sodium Chloride) 500 mls @ 9.375 mls/hr IV TITR ELISSA; Protocol Last Admin: 09/27/19 09:55 Dose: 10 mcg/min, 18.75 mls/hr Documented by: Propofol (Diprivan -) 1,000,000 mcg in 100 mls @ 8.165 mls/hr IVPB TITR ELISSA; Protocol Last Titration: 09/27/19 12:56 Dose: 20 mcg/kg/min, 16.329 mls/hr Documented by: Metoprolol Tartrate (Lopressor -) 50 mg GT BID ELISSA Mupirocin (Bactroban Ointment (For Decolonization) -) 1 applic NS BID ELISSA Stop: 10/02/19 13:29 GENERAL: Intubated and sedated HEAD: Normal with no signs of trauma. EYES: Pupils equal, round and reactive to light, extraocular movements intact, sclera anicteric, conjunctiva clear. No lid lag. LUNGS: Vented, Breath sounds equal. Bilateral scattered rhonchi HEART: Regular rhythm, S1 and S2 without murmur, rub or gallop. ABDOMEN: Soft, nontender, not distended, normoactive bowel sounds, no guarding, no rebound, no masses. No hepatomegaly or splenomegaly. LOWER EXTREMITIES: 2+ pulses, warm, well-perfused. No calf tenderness. No peripheral edema. NEUROLOGICAL: Sedated Laboratory Results - last 24 hr 09/27/19 09/27/19 09/27/19 05:20 05:20 05:20 WBC 6.5 RBC 3.71 L Hgb 9.6 L Hct 30.8 L D MCV 83.0 MCH 26.0 MCHC 31.3 L RDW 17.4 H Plt Count 217 D MPV 8.0 D Absolute Neuts (auto) 5.5 Neutrophils % 84.3 H Lymphocytes % 4.9 L Monocytes % 9.1 Eosinophils % 1.3 Basophils % 0.4 D Nucleated RBC % 0 PT with INR 12.00 INR 1.02 PTT (Actin FS) 34.1 Anticoagulation Therapy Puncture Site Patient Temperature ABG pH ABG pCO2 ABG pO2 ABG HCO3 ABG O2 Sat (Measured) ABG O2 Content ABG Base Excess Adrian Test VBG pH POC VBG pCO2 POC VBG pO2 VBG HCO3 VBG O2 Sat (Rebel) VBG Base Excess Carboxyhemoglobin Methemoglobin Patient On Oxygen O2 Delivery Device Oxygen Flow Rate Vent Mode Vent Rate Mechanical Rate PEEP Pressure Support Vent Sodium 138 Potassium 4.7 Chloride 103 Carbon Dioxide 31 Anion Gap 4 L BUN 14.8 Creatinine 1.1 Est GFR (CKD-EPI)AfAm 89.61 Est GFR (CKD-EPI)NonAf 77.32 Random Glucose 251 H Lactic Acid Calcium 7.6 L Total Bilirubin 0.4 AST 14 L ALT 21 Alkaline Phosphatase 244 H Troponin I < 0.02 B-Natriuretic Peptide 2129.1 H Total Protein 6.0 L Albumin 2.9 L Urine Color Urine Appearance Urine pH Ur Specific [place] Urine Protein Urine Glucose (UA) Urine Ketones Urine Blood Urine Nitrite Urine Bilirubin Urine Urobilinogen Ur Leukocyte Esterase Urine WBC (Auto) Urine RBC (Auto) Urine Casts (Auto) U Epithel Cells (Auto) Urine Bacteria (Auto) 09/27/19 09/27/19 09/27/19 05:20 05:20 06:09 WBC RBC Hgb Hct MCV MCH MCHC RDW Plt Count MPV Absolute Neuts (auto) Neutrophils % Lymphocytes % Monocytes % Eosinophils % Basophils % Nucleated RBC % PT with INR INR PTT (Actin FS) Anticoagulation Therapy Puncture Site Patient Temperature ABG pH ABG pCO2 ABG pO2 ABG HCO3 ABG O2 Sat (Measured) ABG O2 Content ABG Base Excess Adrian Test VBG pH 7.199 L* POC VBG pCO2 75.3 H* POC VBG pO2 < 46.9 VBG HCO3 28.7 VBG O2 Sat (Rebel) 50.1 L VBG Base Excess -0.6 Carboxyhemoglobin Methemoglobin Patient On Oxygen O2 Delivery Device Oxygen Flow Rate Vent Mode Vent Rate Mechanical Rate PEEP Pressure Support Vent Sodium Potassium Chloride Carbon Dioxide Anion Gap BUN Creatinine Est GFR (CKD-EPI)AfAm Est GFR (CKD-EPI)NonAf Random Glucose Lactic Acid 1.8 Calcium Total Bilirubin AST ALT Alkaline Phosphatase Troponin I B-Natriuretic Peptide Total Protein Albumin Urine Color Yellow Urine Appearance Cloudy Urine pH 5.0 Ur Specific [place] 1.017 Urine Protein 2+ H Urine Glucose (UA) 2+ H Urine Ketones Negative Urine Blood 1+ H Urine Nitrite Positive H Urine Bilirubin Negative Urine Urobilinogen 0.2 Ur Leukocyte Esterase 2+ H Urine WBC (Auto) 561 Urine RBC (Auto) 12 Urine Casts (Auto) 14 U Epithel Cells (Auto) 3 Urine Bacteria (Auto) >10,000 09/27/19 07:50 WBC RBC Hgb Hct MCV MCH MCHC RDW Plt Count MPV Absolute Neuts (auto) Neutrophils % Lymphocytes % Monocytes % Eosinophils % Basophils % Nucleated RBC % PT with INR INR PTT (Actin FS) Anticoagulation Therapy No Result Required. Puncture Site Right radial Patient Temperature No Result Required. ABG pH 7.167 L* ABG pCO2 81.20 H* ABG pO2 62.4 L ABG HCO3 28.8 H ABG O2 Sat (Measured) 84.2 L ABG O2 Content No Result Required. ABG Base Excess -1.2 Adrian Test Positive VBG pH POC VBG pCO2 POC VBG pO2 VBG HCO3 VBG O2 Sat (Rebel) VBG Base Excess Carboxyhemoglobin 0.8 Methemoglobin < 1.0 Patient On Oxygen Yes O2 Delivery Device Bipap Oxygen Flow Rate 56 Vent Mode S/t Vent Rate 16/36 Mechanical Rate No Result Required. PEEP No Result Required. Pressure Support Vent 16/4 Sodium Potassium Chloride Carbon Dioxide Anion Gap BUN Creatinine Est GFR (CKD-EPI)AfAm Est GFR (CKD-EPI)NonAf Random Glucose Lactic Acid Calcium Total Bilirubin AST ALT Alkaline Phosphatase Troponin I B-Natriuretic Peptide Total Protein Albumin Urine Color Urine Appearance Urine pH Ur Specific [place] Urine Protein Urine Glucose (UA) Urine Ketones Urine Blood Urine Nitrite Urine Bilirubin Urine Urobilinogen Ur Leukocyte Esterase Urine WBC (Auto) Urine RBC (Auto) Urine Casts (Auto) U Epithel Cells (Auto) Urine Bacteria (Auto) Active Medications Generic Name Dose Route Start Last Admin Trade Name Freq PRN Reason Stop Dose Admin Fentanyl 500 mcg in 100 mls @ 27.216 mls/hr 09/27/19 09:00 09/27/19 09:28 Sublimaze Ivpb IVPB 0.18 mcg/kg/hr TITR ELISSA 5 mls/hr Administration Protocol 1 MCG/KG/HR Midazolam HCl 100 mg/ Sodium 100 mls @ 1 mls/hr 09/27/19 09:00 09/27/19 09:27 Chloride IVPB 4 mg/hr TITR ELISSA 4 mls/hr Administration Protocol 1 MG/HR Norepinephrine Bitartrate 16, 500 mls @ 9.375 mls/hr 09/27/19 09:45 09/27/19 09:55 000 mcg/ Sodium Chloride IV 10 mcg/min TITR ELISSA 18.75 mls/hr Administration Protocol 5 MCG/MIN ASSESSMENT/PLAN: Acute Hypoxic and Hypercapneic Respiratory Failure Diastolic HF Afib/flutter on eliquis Sarcoidosis Recent history of guillan barre Morbid obesity OSAS OHS S/P COVID19 infection S/P tracheostomy with decannulation R/O Sepsis AC Mode of vent / LTTV Strict I & O Central Access Pressors if MAP < 65 Low threshold for empiric ABX Diuresis as tolerated Continue AC Sedate for vent synchrony Requires ICU monitoring Dr Maya Critical care time spent in reviewing chart, evaluating patient and formulating plan - 36 minutes.
[2019-09-27] MEDS: MUPIROCIN 2% TOPICAL OINTMENT FOR DECOLONIZATION NS SCH ×2 (14:10→21:19)
[2019-09-27 14:28] LABS: ARTERIAL BLD GAS O2 SATURATION 74.2 mmHg (95-98); ARTERIAL BLOOD GAS BASE EXCESS 0.1 mmol/L (-2-2); ARTERIAL BLOOD GAS pH 7.322 (7.350-7.450)
[2019-09-27 14:30] LABS: ALLENS TEST POSITIVE
[2019-09-27 14:33] LABS: VENT RATE 12
[2019-09-27 14:35] LABS: ARTERIAL BLOOD GAS PO2 < 46.9 mmHg (80-100)
--- NOTE | 2019-09-27 17:49 | EKG ---
Test Reason : Blood Pressure : / mmHG Vent. Rate : 095 BPM Atrial Rate : 288 BPM P-R Int : 000 ms QRS Dur : 082 ms QT Int : 368 ms P-R-T Axes : 000 006 043 degrees QTc Int : 462 ms ATRIAL FLUTTER WITH VARIABLE A-V BLOCK WITH PREMATURE VENTRICULAR OR ABERRANTLY CONDUCTED COMPLEXES NONSPECIFIC ST ABNORMALITY ABNORMAL ECG WHEN COMPARED WITH ECG OF 25-AUG-2019 02:37, ATRIAL FLUTTER HAS REPLACED SINUS RHYTHM ST NO LONGER ELEVATED IN INFERIOR LEADS ST NOW DEPRESSED IN ANTERIOR LEADS Confirmed by MD Ranjeet, Pro ([id number]) on 09/27/2019 5:49:16 PM Referred By: Confirmed By:Pro Pollack MD
[2019-09-27] MEDS: CHLORHEXIDINE GLUCONATE 4% CLEANSER FOR DECOLONIZATION TP SCH (21:14)
[2019-09-27] MEDS: APIXABAN 5 MG TABLET PEG SCH (21:19)
[2019-09-27] MEDS: METOPROLOL TARTRATE 50 MG TABLET (FP) GT SCH (21:19)
[2019-09-28] MEDS: FENTANYL NS IVPB 500 MCG/100 ML BAG IVPB SCH ×2 (01:32→14:50)
[2019-09-28] MEDS: MIDAZOLAM 100 MG in SODIUM CHLORIDE 100 ML IVPB SCH ×2 (01:33→12:45)
[2019-09-28 06:07] LABS: ARTERIAL BLD GAS O2 SATURATION 94.1 mmHg (95-98); ARTERIAL BLOOD GAS BASE EXCESS 4.5 mmol/L (-2-2); ARTERIAL BLOOD GAS PO2 74.5 mmHg (80-100); ARTERIAL BLOOD GAS pH 7.354 (7.350-7.450)
[2019-09-28 06:11] LABS: ALLENS TEST POSITIVE
[2019-09-28 06:12] LABS: VENT MODE A/C; VENT RATE 14
[2019-09-28] MEDS: PROPOFOL 1,000,000 MCG/100 ML VIAL IVPB SCH ×3 (06:30→21:00)
[2019-09-28 07:03] LABS: BASO % 0.6 % (0-2.0); EOS % 2.1 % (0-4.5); HEMATOCRIT 29.3 % (35.4-49); HEMOGLOBIN 9.1 GM/dL (11.7-16.9); LYMPH % 6.8 % (8-40); MCH 25.8 pg (25.7-33.7); MCHC 31.1 g/dl (32.0-35.9); MEAN CELL VOLUME 82.7 fl (80-96); MEAN PLT VOLUME 8.4 fl (7.5-11.1); MONO % 12.3 % (3.8-10.2); NEUT % 78.2 % (42.8-82.8); PLATELET COUNT 239 K/MM3 (134-434); RBC 3.55 M/mm3 (4.00-5.60); RDW 17.9 % (11.9-15.9); WHITE BLOOD COUNT 4.6 K/mm3 (4.0-10.0)
[2019-09-28 07:56] LABS: ALBUMIN 2.4 g/dl (3.4-5.0); BILIRUBIN,TOTAL 0.5 mg/dL (0.2-1); BLOOD UREA NITROGEN 15.5 mg/dL (7-18); CALCIUM 7.6 mg/dL (8.5-10.1); MAGNESIUM 1.2 mg/dL (1.8-2.4); PHOSPHOROUS 3.7 mg/dL (2.5-4.9); POTASSIUM 4.6 mmol/L (3.5-5.1); TOT PROT 5.2 g/dl (6.4-8.2)
[2019-09-28 07:58] LABS: CREATININE 0.9 mg/dL (0.55-1.3)
[2019-09-28] MEDS ORDERED: PT OWN MED DRAWER 7, Y5N ONE (08:55)
[2019-09-28] MEDS ORDERED: cefTRIAXone SODIUM 1 GM VIAL ONE (08:55)
[2019-09-28] MEDS ORDERED: DEXTROSE 5%-WATER - 50 ML IVPB ONE (08:56)
[2019-09-28] MEDS ORDERED: MAGNESIUM SULF 50% (8.12 MEQ/2 ML-1 GM VIAL) IVPB ONE (09:00)
[2019-09-28] MEDS: METOPROLOL TARTRATE 50 MG TABLET (FP) GT SCH ×2 (09:11→21:19)
[2019-09-28] MEDS: APIXABAN 5 MG TABLET PEG SCH ×2 (09:11→21:19)
[2019-09-28] MEDS ORDERED: CEFTRIAXONE 1 GM in DEXTROSE 5%-WATER - 50 ML IVPB SCH (10:00)
[2019-09-28] MEDS: MUPIROCIN 2% TOPICAL OINTMENT FOR DECOLONIZATION NS SCH ×2 (10:35→21:19)
--- NOTE | 2019-09-28 11:26 | PN ---
Progress Note (short form) - Note Progress Note: ID CONSULT DICTATED ACUTE RESP FAILURE SEPSIS R/O SEPTIC SHOCK R/O PNEUMONIA UTI R/O SEPSIS SECONDARY TO SOURCE HX ESBL PENDING SEPSIS WORK UP EMPIRIC MEROPENEM HEMODYNAMIC/ VENTILATORY SUPPORT CRITICAL CARE TIME 35MIN
--- NOTE | 2019-09-28 11:55 | PN ---
Physical Exam: SUBJECTIVE: Patient seen and examined at bed side in ICU , intubated and sedated. AC Mode of vent. PPlat : 26 NE @ 8 mcq for hemodynamic support. increase his sedation to tachypnea seen by ID added Meropenem OBJECTIVE: Vital Signs Period Temp Pulse Resp BP Sys/[place] Pulse Ox Last 24 Hr 96.9 F-98 F 89-112 11-30 96-142/61-90 94-98 GENERAL: intubated sedated HEAD: Normal with no signs of trauma. LUNGS: decrease breath sounds at the bases HEART: Sinus tachy , normal S1 and S2 without murmur, rub or gallop. ABDOMEN: Soft, nontender, not distended, normoactive bowel sounds, LOWER EXTREMITIES: 2+ pulses, warm, well-perfused. No calf tenderness. No peripheral edema. NEUROLOGICAL: intubated sedated . Laboratory Results - last 24 hr 09/27/19 09/27/19 09/27/19 14:00 14:15 18:20 WBC RBC Hgb Hct MCV MCH MCHC RDW Plt Count MPV Absolute Neuts (auto) Neutrophils % Lymphocytes % Monocytes % Eosinophils % Basophils % Nucleated RBC % Anticoagulation Therapy No Result Required. Puncture Site Right radial Patient Temperature No Result Required. ABG pH 7.322 L ABG pCO2 52.60 H ABG pO2 < 46.9 L* ABG HCO3 26.6 ABG O2 Sat (Measured) 74.2 L ABG O2 Content No Result Required. ABG Base Excess 0.1 Adrian Test Positive Patient On Oxygen Yes O2 Delivery Device No Result Required. Oxygen Flow Rate 100 Vent Mode No Result Required. Vent Rate 12 Mechanical Rate No Result Required. PEEP 5.0 Pressure Support Vent 490 Sodium Potassium Chloride Carbon Dioxide Anion Gap BUN Creatinine Est GFR (CKD-EPI)AfAm Est GFR (CKD-EPI)NonAf POC Glucometer 265 222 Random Glucose Calcium Phosphorus Magnesium Ferritin Total Bilirubin AST ALT Alkaline Phosphatase LD Total C-Reactive Protein Total Protein Albumin Blood Type Antibody Screen 09/27/19 09/28/19 09/28/19 21:39 04:58 05:00 WBC 4.6 RBC 3.55 L Hgb 9.1 L Hct 29.3 L MCV 82.7 MCH 25.8 MCHC 31.1 L RDW 17.9 H Plt Count 239 MPV 8.4 Absolute Neuts (auto) 3.6 Neutrophils % 78.2 Lymphocytes % 6.8 L D Monocytes % 12.3 H Eosinophils % 2.1 Basophils % 0.6 Nucleated RBC % 0 Anticoagulation Therapy Puncture Site Patient Temperature ABG pH ABG pCO2 ABG pO2 ABG HCO3 ABG O2 Sat (Measured) ABG O2 Content ABG Base Excess Adrian Test Patient On Oxygen O2 Delivery Device Oxygen Flow Rate Vent Mode Vent Rate Mechanical Rate PEEP Pressure Support Vent Sodium Potassium Chloride Carbon Dioxide Anion Gap BUN Creatinine Est GFR (CKD-EPI)AfAm Est GFR (CKD-EPI)NonAf POC Glucometer 185 147 Random Glucose Calcium Phosphorus Magnesium Ferritin Total Bilirubin AST ALT Alkaline Phosphatase LD Total C-Reactive Protein Total Protein Albumin Blood Type Antibody Screen 09/28/19 09/28/19 09/28/19 05:00 05:00 05:40 WBC RBC Hgb Hct MCV MCH MCHC RDW Plt Count MPV Absolute Neuts (auto) Neutrophils % Lymphocytes % Monocytes % Eosinophils % Basophils % Nucleated RBC % Anticoagulation Therapy No Result Required. Puncture Site Right radial Patient Temperature No Result Required. ABG pH 7.354 ABG pCO2 58.50 H ABG pO2 74.5 L ABG HCO3 31.9 H ABG O2 Sat (Measured) 94.1 L ABG O2 Content No Result Required. ABG Base Excess 4.5 H Adrian Test Positive Patient On Oxygen Yes O2 Delivery Device Vent Oxygen Flow Rate 70% Vent Mode A/c Vent Rate 14 Mechanical Rate No Result Required. PEEP 10.0 Pressure Support Vent 390 Sodium 140 Potassium 4.6 Chloride 104 Carbon Dioxide 32 Anion Gap 4 L BUN 15.5 Creatinine 0.9 Est GFR (CKD-EPI)AfAm 114.21 Est GFR (CKD-EPI)NonAf 98.54 POC Glucometer Random Glucose 157 H Calcium 7.6 L Phosphorus 3.7 Magnesium 1.2 L Ferritin 40.5 Total Bilirubin 0.5 AST 9 L ALT 16 Alkaline Phosphatase 158 H LD Total 148 C-Reactive Protein 5.6 H Total Protein 5.2 L Albumin 2.4 L Blood Type O POSITIVE Antibody Screen Negative 09/28/19 09:20 WBC RBC Hgb Hct MCV MCH MCHC RDW Plt Count MPV Absolute Neuts (auto) Neutrophils % Lymphocytes % Monocytes % Eosinophils % Basophils % Nucleated RBC % Anticoagulation Therapy Puncture Site Patient Temperature ABG pH ABG pCO2 ABG pO2 ABG HCO3 ABG O2 Sat (Measured) ABG O2 Content ABG Base Excess Adrian Test Patient On Oxygen O2 Delivery Device Oxygen Flow Rate Vent Mode Vent Rate Mechanical Rate PEEP Pressure Support Vent Sodium Potassium Chloride Carbon Dioxide Anion Gap BUN Creatinine Est GFR (CKD-EPI)AfAm Est GFR (CKD-EPI)NonAf POC Glucometer 137 Random Glucose Calcium Phosphorus Magnesium Ferritin Total Bilirubin AST ALT Alkaline Phosphatase LD Total C-Reactive Protein Total Protein Albumin Blood Type Antibody Screen Active Medications Generic Name Dose Route Start Last Admin Trade Name Freq PRN Reason Stop Dose Admin Apixaban 5 mg 09/27/19 22:00 09/28/19 09:11 Eliquis - PEG 5 mg BID ELISSA Administration Chlorhexidine Gluconate 1 applic 09/27/19 22:00 09/27/19 21:14 Hibiclens For Decolonization - TP 1 applic HS ELISSA Administration Fentanyl 500 mcg in 100 mls @ 27.216 mls/hr 09/27/19 09:00 09/28/19 01:32 Sublimaze Ivpb IVPB 0.18 mcg/kg/hr TITR ELISSA 5 mls/hr Administration Protocol 1 MCG/KG/HR Midazolam HCl 100 mg/ Sodium 100 mls @ 1 mls/hr 09/27/19 09:00 09/28/19 01:33 Chloride IVPB 4 mg/hr TITR ELISSA 4 mls/hr Administration Protocol 1 MG/HR Norepinephrine Bitartrate 16, 500 mls @ 9.375 mls/hr 09/27/19 09:45 09/28/19 06:31 000 mcg/ Sodium Chloride IV 7 mcg/min TITR ELISSA 13.125 mls/hr Titration Protocol 5 MCG/MIN Propofol 1,000,000 mcg in 100 mls @ 8.165 mls/hr 09/27/19 13:00 09/28/19 06:30 Diprivan - IVPB 20 mcg/kg/min TITR ELISSA 16.329 mls/hr Administration Protocol 10 MCG/KG/MIN Meropenem 1 gm/ Dextrose 100 mls @ 200 mls/hr 09/28/19 12:00 IVPB Q8H-IV ELISSA Metoprolol Tartrate 50 mg 09/27/19 22:00 09/28/19 09:11 Lopressor - GT 50 mg BID ELISSA Administration Mupirocin 1 applic 09/27/19 13:30 09/28/19 10:35 Bactroban Ointment (For Decolonization) - NS 10/02/19 13:29 1 applic BID ELISSA Administration CBC, BMP 09/28/19 05:00 09/28/19 05:00 ASSESSMENT/PLAN: 53 yo m w/ dDHF, afib/flutter on eliquis, sarcoidosis, guillan barre, morbid obesity, tracheostomy 2/2 respiratory failure s/p reversal comes into the ed c/o worsening SOB for the past 1 day. #Neuro -intubated and sedated on propofol/ versed #Cardio -h/o afib/aflutter on eliquis -Patient hypotensive s/p intubation -right IJ cvc inserted emergently -on norepinephrine for BP support, titrate to maintain a MAP >=65 -Patient with congestion on CXR and SOB possibly 2/2 CHF exacerbation r/o COVID pneumonia. -s/p 40mg lasix in ED -willasses in AM for more diuresis -monitor I&O -CVP monitoring #Pulmonary -acute hypoxic hypercapnic respiratory failure likely 2/2 CHF exacerbation r/o COVID pneumonia. -maintain saturation >88% - start meropenem #ID -possible covid pneumonitis -COVID PCR pending -Airbone isolation -trend inflammatory markers - R.O Sepsis , started on Meropenem , sheriff cx pending - H/O ESBL -R.O PNA - UA positive #Prophy -Protonix IV -Eliquis 5mg BID #FEN -holding fluids for now -monitor lytes -NPO Lines -Right IJ CVC insterted 09/26 -ortiz inserted 09/26 Dispo: -admit ICU Visit type - Emergency Visit Emergency Visit: Yes ED Registration Date: 09/27/19 Care time: The patient presented to the Emergency Department on the above date and was hospitalized for further evaluation of their emergent condition. - New Patient This patient is new to me today: Yes Date on this admission: 09/28/19 - Critical Care Critical Care patient: Yes Total Critical Care Time (in minutes): 45 Critical Care Statement: The care of this patient involved high complexity decision making to prevent further life threatening deterioration of the patient's condition and/or to evaluate & treat vital organ system(s) failure or risk of failure. - Discharge Referral Referred to [facility] No ATTENDING PHYSICIAN STATEMENT I saw and evaluated the patient. I reviewed the resident's note and discussed the case with the resident. I agree with the resident's findings and plan as documented. SUBJECTIVE: OBJECTIVE: ASSESSMENT AND PLAN:
--- NOTE | 2019-09-28 12:15 | PN ---
Teaching Attending Note Name of Resident: Luigi Piper ATTENDING PHYSICIAN STATEMENT I saw and evaluated the patient. I reviewed the resident's note and discussed the case with the resident. I agree with the resident's findings and plan as documented. SUBJECTIVE: Patient seen and examined in the ICU. Remains intubated and sedated. AC Mode of vent. PPlat : 26 NE @ 8 mcq for hemodynamic support. Intake & Output 09/25/19 09/26/19 09/27/19 09/28/19 23:59 23:59 23:59 23:59 Intake Total 432 Output Total 2150 750 Balance -2150 -318 Weight 300 lb 270 lb 8.115 oz Last Vital Signs Temp Pulse Resp BP Pulse Ox 96.9 F L 96 H 21 H 136/80 98 09/28/19 06:00 09/28/19 06:00 09/28/19 08:20 09/28/19 06:00 09/28/19 08:20 Active Medications Apixaban (Eliquis -) 5 mg PEG BID ELISSA Last Admin: 09/28/19 09:11 Dose: 5 mg Documented by: Chlorhexidine Gluconate (Hibiclens For Decolonization -) 1 applic TP HS ELISSA Last Admin: 09/27/19 21:14 Dose: 1 applic Documented by: Fentanyl (Sublimaze Ivpb) 500 mcg in 100 mls @ 27.216 mls/hr IVPB TITR ELISSA; Protocol Last Admin: 09/28/19 01:32 Dose: 0.18 mcg/kg/hr, 5 mls/hr Documented by: Midazolam HCl 100 mg/ Sodium (Chloride) 100 mls @ 1 mls/hr IVPB TITR ELISSA; Protocol Last Admin: 09/28/19 01:33 Dose: 4 mg/hr, 4 mls/hr Documented by: Norepinephrine Bitartrate 16, (000 mcg/ Sodium Chloride) 500 mls @ 9.375 mls/hr IV TITR ELISSA; Protocol Last Titration: 09/28/19 06:31 Dose: 7 mcg/min, 13.125 mls/hr Documented by: Propofol (Diprivan -) 1,000,000 mcg in 100 mls @ 8.165 mls/hr IVPB TITR ELISSA; Protocol Last Admin: 09/28/19 06:30 Dose: 20 mcg/kg/min, 16.329 mls/hr Documented by: Meropenem 1 gm/ Dextrose 100 mls @ 200 mls/hr IVPB Q8H-IV ELISSA Metoprolol Tartrate (Lopressor -) 50 mg GT BID [facility] Last Admin: 09/28/19 09:11 Dose: 50 mg Documented by: Mupirocin (Bactroban Ointment (For Decolonization) -) 1 applic NS BID [facility] Stop: 10/02/19 13:29 Last Admin: 09/28/19 10:35 Dose: 1 applic Documented by: GENERAL: Intubated and sedated HEAD: Normal with no signs of trauma. EYES: Pupils equal, round and reactive to light, extraocular movements intact, sclera anicteric, conjunctiva clear. No lid lag. LUNGS: Vented, Breath sounds equal. Bilateral scattered rhonchi HEART: Regular rhythm, S1 and S2 without murmur, rub or gallop. ABDOMEN: Soft, nontender, not distended, normoactive bowel sounds, no guarding, no rebound, no masses. No hepatomegaly or splenomegaly. LOWER EXTREMITIES: 2+ pulses, warm, well-perfused. No calf tenderness. No peripheral edema. NEUROLOGICAL: Sedated Laboratory Results - last 24 hr 09/27/19 09/27/19 09/27/19 14:00 14:15 18:20 WBC RBC Hgb Hct MCV MCH MCHC RDW Plt Count MPV Absolute Neuts (auto) Neutrophils % Lymphocytes % Monocytes % Eosinophils % Basophils % Nucleated RBC % Anticoagulation Therapy No Result Required. Puncture Site Right radial Patient Temperature No Result Required. ABG pH 7.322 L ABG pCO2 52.60 H ABG pO2 < 46.9 L* ABG HCO3 26.6 ABG O2 Sat (Measured) 74.2 L ABG O2 Content No Result Required. ABG Base Excess 0.1 Adrian Test Positive Patient On Oxygen Yes O2 Delivery Device No Result Required. Oxygen Flow Rate 100 Vent Mode No Result Required. Vent Rate 12 Mechanical Rate No Result Required. PEEP 5.0 Pressure Support Vent 490 Sodium Potassium Chloride Carbon Dioxide Anion Gap BUN Creatinine Est GFR (CKD-EPI)AfAm Est GFR (CKD-EPI)NonAf POC Glucometer 265 222 Random Glucose Calcium Phosphorus Magnesium Ferritin Total Bilirubin AST ALT Alkaline Phosphatase LD Total C-Reactive Protein Total Protein Albumin Blood Type Antibody Screen 06/20/20 06/21/20 06/21/20 21:39 04:58 05:00 WBC 4.6 RBC 3.55 L Hgb 9.1 L Hct 29.3 L MCV 82.7 MCH 25.8 MCHC 31.1 L RDW 17.9 H Plt Count 239 MPV 8.4 Absolute Neuts (auto) 3.6 Neutrophils % 78.2 Lymphocytes % 6.8 L D Monocytes % 12.3 H Eosinophils % 2.1 Basophils % 0.6 Nucleated RBC % 0 Anticoagulation Therapy Puncture Site Patient Temperature ABG pH ABG pCO2 ABG pO2 ABG HCO3 ABG O2 Sat (Measured) ABG O2 Content ABG Base Excess Adrian Test Patient On Oxygen O2 Delivery Device Oxygen Flow Rate Vent Mode Vent Rate Mechanical Rate PEEP Pressure Support Vent Sodium Potassium Chloride Carbon Dioxide Anion Gap BUN Creatinine Est GFR (CKD-EPI)AfAm Est GFR (CKD-EPI)NonAf POC Glucometer 185 147 Random Glucose Calcium Phosphorus Magnesium Ferritin Total Bilirubin AST ALT Alkaline Phosphatase LD Total C-Reactive Protein Total Protein Albumin Blood Type Antibody Screen 09/28/19 09/28/19 09/28/19 05:00 05:00 05:40 WBC RBC Hgb Hct MCV MCH MCHC RDW Plt Count MPV Absolute Neuts (auto) Neutrophils % Lymphocytes % Monocytes % Eosinophils % Basophils % Nucleated RBC % Anticoagulation Therapy No Result Required. Puncture Site Right radial Patient Temperature No Result Required. ABG pH 7.354 ABG pCO2 58.50 H ABG pO2 74.5 L ABG HCO3 31.9 H ABG O2 Sat (Measured) 94.1 L ABG O2 Content No Result Required. ABG Base Excess 4.5 H Adrian Test Positive Patient On Oxygen Yes O2 Delivery Device Vent Oxygen Flow Rate 70% Vent Mode A/c Vent Rate 14 Mechanical Rate No Result Required. PEEP 10.0 Pressure Support Vent 390 Sodium 140 Potassium 4.6 Chloride 104 Carbon Dioxide 32 Anion Gap 4 L BUN 15.5 Creatinine 0.9 Est GFR (CKD-EPI)AfAm 114.21 Est GFR (CKD-EPI)NonAf 98.54 POC Glucometer Random Glucose 157 H Calcium 7.6 L Phosphorus 3.7 Magnesium 1.2 L Ferritin 40.5 Total Bilirubin 0.5 AST 9 L ALT 16 Alkaline Phosphatase 158 H LD Total 148 C-Reactive Protein 5.6 H Total Protein 5.2 L Albumin 2.4 L Blood Type O POSITIVE Antibody Screen Negative 09/28/19 09:20 WBC RBC Hgb Hct MCV MCH MCHC RDW Plt Count MPV Absolute Neuts (auto) Neutrophils % Lymphocytes % Monocytes % Eosinophils % Basophils % Nucleated RBC % Anticoagulation Therapy Puncture Site Patient Temperature ABG pH ABG pCO2 ABG pO2 ABG HCO3 ABG O2 Sat (Measured) ABG O2 Content ABG Base Excess Adrian Test Patient On Oxygen O2 Delivery Device Oxygen Flow Rate Vent Mode Vent Rate Mechanical Rate PEEP Pressure Support Vent Sodium Potassium Chloride Carbon Dioxide Anion Gap BUN Creatinine Est GFR (CKD-EPI)AfAm Est GFR (CKD-EPI)NonAf POC Glucometer 137 Random Glucose Calcium Phosphorus Magnesium Ferritin Total Bilirubin AST ALT Alkaline Phosphatase LD Total C-Reactive Protein Total Protein Albumin Blood Type Antibody Screen ASSESSMENT/PLAN: Acute Hypoxic and Hypercapneic Respiratory Failure Septic Shock : Source : tract (?) Lung Diastolic HF Afib/flutter on eliquis Sarcoidosis Recent history of guillan barre Morbid obesity OSAS OHS S/P COVID19 infection S/P tracheostomy with decannulation AC Mode of vent / LTTV Strict I & O ID evaluation Pressors to maintain MAP > 65 Continue AC Sedate for vent synchrony Requires ICU monitoring Dr Maya Critical care time spent in reviewing chart, evaluating patient and formulating plan - 36 minutes.
[2019-09-28] MEDS: MEROPENEM 1 GM in DEXTROSE 5%-WATER 100 ML IVPB SCH ×2 (12:20→17:37)
[2019-09-28] MEDS ORDERED: MEROPENEM 1 GM VIAL (RESTRICTED TO ID) IVPB ONE ×3 (12:28→20:58)
[2019-09-28] MEDS ORDERED: DEXTROSE 5%-WATER 100 ML IVPB ONE ×3 (12:28→20:58)
[2019-09-28] MEDS: NOREPINEPHRINE BITARTRATE 16,000 MCG in SODIUM CHLORIDE 484 ML IV SCH ×2 (14:48→17:38)
[2019-09-28] MEDS ORDERED: MIDAZOLAM IN 0.9 % SOD.CHLORID 1 MG/1 ML PLAST..BAG ONE ×2 (17:42→20:57)
[2019-09-28 18:07] LABS: ARTERIAL BLD GAS O2 SATURATION 93.8 mmHg (95-98); ARTERIAL BLOOD GAS BASE EXCESS 1.2 mmol/L (-2-2); ARTERIAL BLOOD GAS PO2 75.8 mmHg (80-100); ARTERIAL BLOOD GAS pH 7.316 (7.350-7.450)
[2019-09-28 18:14] LABS: VENT MODE A/C; VENT RATE 14
[2019-09-28 18:15] LABS: ALLENS TEST POSITIVE
[2019-09-28] MEDS: CHLORHEXIDINE GLUCONATE 4% CLEANSER FOR DECOLONIZATION TP SCH (21:19)
--- NOTE | 2019-09-28 22:04 | CONS ---
DATE OF CONSULTATION: DATE OF DICTATION: 09/28/2019 The patient is a 53-year-old male with multiple comorbidities who was evaluated for sepsis, possible septic shock. History was obtained from the chart as he is presently intubated. The patient has had several hospital admissions over the past 6 months. He had a complicated hospitalization at [facility] in March of 2019. He was treated for congestive heart failure and atrial fibrillation. He was ultimately transferred to a long-term facility. Since that time, he has had several hospitalizations for acute respiratory failure and intubation. He is now admitted from the community with increasing shortness of breath, increasing lower extremity edema, and chest discomfort. He presented to the hospital on September 27, 2019. He was placed on a BiPAP mask. He ultimately required intubation. The patient is presently intubated in the Intensive Care Unit, on mechanical ventilation. His course has been complicated by hypotension. He is on pressors. Initial workup showed pyuria and a positive urine culture. Chest x-ray shows increased markings at the right base. PAST MEDICAL HISTORY: Positive for chronic respiratory failure status post tracheostomy in the past, history of cardiopulmonary arrest, congestive heart failure, sarcoidosis, Guillain-Staunton syndrome, atrial fibrillation, morbid obesity. PAST SURGICAL HISTORY: Status post tracheostomy. ALLERGIES: No known drug allergies. MEDICATIONS: Include Zithromax, ceftriaxone, vancomycin, norepinephrine, Eliquis, metoprolol, fentanyl, propofol, Lasix. SOCIAL HISTORY: Presently residing in the community. He is a former smoker. REVIEW OF SYSTEMS: Neurologic: No loss of consciousness, seizure activity, or focal weakness. Cardiac: As per HPI. Respiratory: As per HPI. Gastrointestinal: Negative for vomiting, or diarrhea. Genitourinary: Negative for urinary tract infection. LABORATORY DATA: White count 4.6, 78 neutrophils, 6 lymphocytes, 12 monocytes, hematocrit 29.3, platelets 239. BUN 15, creatinine 0.9. Total bilirubin 0.5, alkaline phosphatase 158. AST 9. Urinalysis has 561 white cells. Urine culture is growing a lactose vehicle refinisher. Previous sputum culture has been positive for ESBL as well as Enterobacter. PHYSICAL EXAMINATION: General: He is sedated on the ventilator. Vital Signs: Temperature 96.8, blood pressure 136/80, pulse 96 and regular, respiratory rate 21 per minute. HEENT: Sclerae anicteric. Heart: Sounds S1, S2. Abdomen: Obese, soft, nontender. Extremities: Positive for edema. Negative Eugene sign. IMPRESSION: 1. Acute respiratory failure. 2. Sepsis, rule out septic shock. 3. Rule out pneumonia. 4. Urinary tract infection, rule out sepsis secondary to genitourinary source. 5. History of extended-spectrum betalactamase. 6. History of cardiopulmonary arrest. 7. History of Guillain-Staunton syndrome. PLAN: Await sepsis workup, empiric antibiotic coverage for possible ESBL with meropenem, pending cultures. Continue hemodynamic and ventilatory support, contact precautions. We will follow. Thank you for the kind referral. Critical care time spent was 35 minutes. DENISSE DAVIDSON M.D. [id number]
[2019-09-29] MEDS: MIDAZOLAM 100 MG in SODIUM CHLORIDE 100 ML IVPB SCH ×3 (00:30→13:24)
[2019-09-29] MEDS: PROPOFOL 1,000,000 MCG/100 ML VIAL IVPB SCH ×5 (01:00→17:50)
[2019-09-29] MEDS: MEROPENEM 1 GM in DEXTROSE 5%-WATER 100 ML IVPB SCH ×3 (03:08→17:21)
[2019-09-29 06:34] LABS: BASO % 0.6 % (0-2.0); EOS % 2.6 % (0-4.5); HEMATOCRIT 27.9 % (35.4-49); HEMOGLOBIN 8.8 GM/dL (11.7-16.9); MCHC 31.4 g/dl (32.0-35.9); MEAN CELL VOLUME 82.7 fl (80-96); MEAN PLT VOLUME 8.4 fl (7.5-11.1); MONO % 18.6 % (3.8-10.2); NEUT % 69.2 % (42.8-82.8); PLATELET COUNT 227 K/MM3 (134-434); RBC 3.37 M/mm3 (4.00-5.60); RDW 17.5 % (11.9-15.9); WHITE BLOOD COUNT 3.1 K/mm3 (4.0-10.0)
[2019-09-29 07:06] LABS: ALBUMIN 2.1 g/dl (3.4-5.0); BILIRUBIN,TOTAL 0.4 mg/dL (0.2-1); BLOOD UREA NITROGEN 17.5 mg/dL (7-18); CALCIUM 8.1 mg/dL (8.5-10.1); CREATININE 0.9 mg/dL (0.55-1.3); MAGNESIUM 1.6 mg/dL (1.8-2.4); PHOSPHOROUS 3.9 mg/dL (2.5-4.9); POTASSIUM 4.7 mmol/L (3.5-5.1); TOT PROT 4.9 g/dl (6.4-8.2)
[2019-09-29] MEDS ORDERED: MAGNESIUM SULF 50% (8.12 MEQ/2 ML-1 GM VIAL) IVPB ONE (08:30)
[2019-09-29] MEDS ORDERED: MEROPENEM 1 GM VIAL (RESTRICTED TO ID) IVPB ONE ×3 (08:41→22:13)
[2019-09-29] MEDS ORDERED: DEXTROSE 5%-WATER 100 ML IVPB ONE ×3 (08:41→22:13)
[2019-09-29] MEDS: FENTANYL NS IVPB 500 MCG/100 ML BAG IVPB SCH (09:00)
[2019-09-29] MEDS: NOREPINEPHRINE BITARTRATE 16,000 MCG in SODIUM CHLORIDE 484 ML IV SCH (09:45)
[2019-09-29] MEDS: MUPIROCIN 2% TOPICAL OINTMENT FOR DECOLONIZATION NS SCH ×2 (10:07→22:46)
[2019-09-29] MEDS: APIXABAN 5 MG TABLET PEG SCH ×2 (10:07→22:46)
[2019-09-29] MEDS: METOPROLOL TARTRATE 50 MG TABLET (FP) GT SCH ×2 (10:07→22:48)
[2019-09-29] MEDS ORDERED: FUROSEMIDE 40 MG/4 ML INJECTABLE VIAL IVPUSH ONE (10:57)
--- NOTE | 2019-09-29 11:20 | PN ---
Teaching Attending Note Name of Resident: Malachi Oliva ATTENDING PHYSICIAN STATEMENT I saw and evaluated the patient. I reviewed the resident's note and discussed the case with the resident. I agree with the resident's findings and plan as documented. SUBJECTIVE: Pt seen and examined in the ICU. Remains intubated, sedated on low dose levophed gtt. OBJECTIVE: Vital Signs Period Temp Pulse Resp BP Sys/Kenyon Pulse Ox Last 24 Hr 96.1 F-98.2 F 107-129 13-35 88-129/50-86 97-100 Intake & Output 09/26/19 09/27/19 09/28/19 09/29/19 23:59 23:59 23:59 23:59 Intake Total 1205 719.6 Output Total 2150 1650 500 Balance -2150 -445 219.6 Weight 136.078 kg 122.47 kg 123.2 kg Gen: intubated, sedated Heart: RRR Lung: scattered rhonchi Abd: soft, nontender Ext: +edema CBC, BMP 09/29/19 05:30 09/29/19 05:30 Active Medications Amino Acids (Prosource No Carb Liquid Pkt) 30 ml PO BID@0800,1730 ELISSA Apixaban (Eliquis -) 5 mg PEG BID ELISSA Last Admin: 09/29/19 10:07 Dose: 5 mg Documented by: Chlorhexidine Gluconate (Hibiclens For Decolonization -) 1 applic TP HS ELISSA Last Admin: 09/28/19 21:19 Dose: 1 applic Documented by: Furosemide (Lasix Injection -) 40 mg IVPUSH ONCE ONE Stop: 09/29/19 10:58 Fentanyl (Sublimaze Ivpb) 500 mcg in 100 mls @ 27.216 mls/hr IVPB TITR ELISSA; Protocol Last Admin: 09/29/19 09:00 Dose: Not Given Documented by: Midazolam HCl 100 mg/ Sodium (Chloride) 100 mls @ 1 mls/hr IVPB TITR ELISSA; Protocol Last Admin: 09/29/19 09:00 Dose: Not Given Documented by: Norepinephrine Bitartrate 16, (000 mcg/ Sodium Chloride) 500 mls @ 9.375 mls/hr IV TITR ELISSA; Protocol Last Admin: 09/29/19 09:45 Dose: Not Given Documented by: Propofol (Diprivan -) 1,000,000 mcg in 100 mls @ 8.165 mls/hr IVPB TITR ELISSA; Protocol Last Admin: 09/29/19 01:00 Dose: 30 mcg/kg/min, 24.494 mls/hr Documented by: Meropenem 1 gm/ Dextrose 100 mls @ 200 mls/hr IVPB Q8H-IV ELISSA Last Admin: 09/29/19 10:07 Dose: 200 mls/hr Documented by: Metoprolol Tartrate (Lopressor -) 50 mg GT BID ELISSA Last Admin: 09/29/19 10:07 Dose: 50 mg Documented by: Mupirocin (Bactroban Ointment (For Decolonization) -) 1 applic NS BID ELISSA Stop: 10/02/19 13:29 Last Admin: 09/29/19 10:07 Dose: 1 applic Documented by: Pantoprazole Sodium (Protonix Iv) 40 mg IVPUSH DAILY [facility] ASSESSMENT AND PLAN: Acute Hypoxic and Hypercapneic Respiratory Failure UTI r/o Pneumonia Septic Shock Acute on Chronic Diastolic Heart Failure Atrial Fibrillation/Flutter with RVR h/o COVID19 Sarcoidosis Morbid Obesity EMMY/OHS - continue antibiotics - f/u cultures - titrate pressors to maintain MAP >65 - rate control - continue anticoagulation - lasix today - monitor urine output, creatinine - lighten sedation in AM to assess mental status - enteral feeds - DVT/GI prophylaxis - continue ICU monitoring critical care time spent in reviewing chart, evaluating patient and formulating plan 35 min
[2019-09-29] MEDS: PANTOPRAZOLE SODIUM 40 MG VIAL IVPUSH SCH (12:01)
[2019-09-29] MEDS: dilTIAZem HCL 60 MG TABLET PO SCH ×2 (12:02→17:21)
[2019-09-29] MEDS ORDERED: MIDAZOLAM IN 0.9 % SOD.CHLORID 1 MG/1 ML PLAST..BAG ONE ×2 (13:22→23:03)
--- NOTE | 2019-09-29 13:40 | PN ---
Physical Exam: SUBJECTIVE: Patient seen and examined. Afebrile overnight, no acute events. Pt tachycardic overngiht. OBJECTIVE: Vital Signs Period Temp Pulse Resp BP Sys/Kenyon Pulse Ox Last 24 Hr 96.1 F-98.2 F 107-129 13-31 88-129/50-86 91-99 GENERAL: intubated, sedated HEAD: Normal with no signs of trauma. LUNGS: rhonchi b/l HEART: Sinus tachy , normal S1 and S2 without murmur, rub or gallop. ABDOMEN: Soft, nontender, not distended, normoactive bowel sounds, LOWER EXTREMITIES: 2+ pulses, warm, well-perfused. No calf tenderness. No peripheral edema. Laboratory Results - last 24 hr 09/28/19 09/28/19 09/28/19 16:45 17:37 21:31 WBC RBC Hgb Hct MCV MCH MCHC RDW Plt Count MPV Absolute Neuts (auto) Neutrophils % Lymphocytes % Monocytes % Eosinophils % Basophils % Nucleated RBC % Anticoagulation Therapy No Result Required. Puncture Site Right radial Patient Temperature No Result Required. ABG pH 7.316 L ABG pCO2 56.80 H ABG pO2 75.8 L ABG HCO3 28.3 H ABG O2 Sat (Measured) 93.8 L ABG O2 Content No Result Required. ABG Base Excess 1.2 Adrian Test Positive Patient On Oxygen Yes O2 Delivery Device [facility].vent Oxygen Flow Rate 70% Vent Mode A/c Vent Rate 14 Mechanical Rate No Result Required. PEEP 10.0 Pressure Support Vent 390 Sodium Potassium Chloride Carbon Dioxide Anion Gap BUN Creatinine Est GFR (CKD-EPI)AfAm Est GFR (CKD-EPI)NonAf POC Glucometer 131 126 Random Glucose Calcium Phosphorus Magnesium Total Bilirubin AST ALT Alkaline Phosphatase Total Protein Albumin 09/29/19 09/29/19 09/29/19 05:30 05:30 10:50 WBC 3.1 L RBC 3.37 L Hgb 8.8 L Hct 27.9 L MCV 82.7 MCH 26.0 MCHC 31.4 L RDW 17.5 H Plt Count 227 MPV 8.4 Absolute Neuts (auto) 2.1 Neutrophils % 69.2 Lymphocytes % 9.0 D Monocytes % 18.6 H Eosinophils % 2.6 Basophils % 0.6 Nucleated RBC % 0 Anticoagulation Therapy Puncture Site Patient Temperature ABG pH ABG pCO2 ABG pO2 ABG HCO3 ABG O2 Sat (Measured) ABG O2 Content ABG Base Excess Adrian Test Patient On Oxygen O2 Delivery Device Oxygen Flow Rate Vent Mode Vent Rate Mechanical Rate PEEP Pressure Support Vent Sodium 140 Potassium 4.7 Chloride 103 Carbon Dioxide 32 Anion Gap 5 L BUN 17.5 Creatinine 0.9 Est GFR (CKD-EPI)AfAm 114.21 Est GFR (CKD-EPI)NonAf 98.54 POC Glucometer 72 Random Glucose 100 Calcium 8.1 L Phosphorus 3.9 Magnesium 1.6 L Total Bilirubin 0.4 AST 8 L ALT 14 Alkaline Phosphatase 136 H Total Protein 4.9 L Albumin 2.1 L Active Medications Generic Name Dose Route Start Last Admin Trade Name Freq PRN Reason Stop Dose Admin Amino Acids 30 ml 09/29/19 17:30 Prosource No Carb Liquid Pkt PO BID@0800,1730 ELISSA Apixaban 5 mg 09/27/19 22:00 09/29/19 10:07 Eliquis - PEG 5 mg BID ELISSA Administration Chlorhexidine Gluconate 1 applic 09/27/19 22:00 09/28/19 21:19 Hibiclens For Decolonization - TP 1 applic HS ELISSA Administration Diltiazem HCl 60 mg 09/29/19 12:00 09/29/19 12:02 Cardizem - PO 60 mg Q6HPO ELISSA Administration Fentanyl 500 mcg in 100 mls @ 27.216 mls/hr 09/27/19 09:00 09/29/19 09:00 Sublimaze Ivpb IVPB Not Given TITR ELISSA Protocol 1 MCG/KG/HR Midazolam HCl 100 mg/ Sodium 100 mls @ 1 mls/hr 09/27/19 09:00 09/29/19 09:00 Chloride IVPB Not Given TITR ELISSA Protocol 1 MG/HR Norepinephrine Bitartrate 16, 500 mls @ 9.375 mls/hr 09/27/19 09:45 09/29/19 09:45 000 mcg/ Sodium Chloride IV Not Given TITR ELISSA Protocol 5 MCG/MIN Propofol 1,000,000 mcg in 100 mls @ 8.165 mls/hr 09/27/19 13:00 09/29/19 13:00 Diprivan - IVPB Not Given TITR ELISSA Protocol 10 MCG/KG/MIN Meropenem 1 gm/ Dextrose 100 mls @ 200 mls/hr 09/28/19 12:00 09/29/19 10:07 IVPB 200 mls/hr Q8H-IV ELISSA Administration Metoprolol Tartrate 50 mg 09/27/19 22:00 09/29/19 10:07 Lopressor - GT 50 mg BID ELISSA Administration Mupirocin 1 applic 09/27/19 13:30 09/29/19 10:07 Bactroban Ointment (For Decolonization) - NS 10/02/19 13:29 1 applic BID ELISSA Administration Pantoprazole Sodium 40 mg 09/29/19 11:00 09/29/19 12:01 Protonix Iv IVPUSH 40 mg DAILY ELISSA Administration ASSESSMENT/PLAN: 53 yo m w/ dDHF, afib/flutter on eliquis, sarcoidosis, guillan barre, morbid obesity, tracheostomy 2/2 respiratory failure s/p reversal comes into the ed c/o worsening SOB for the past 1 day. #Neuro intubated and sedated on propofol 40 + versed 10, fentanyl 100, low dose Levo 3 #Cardio h/o afib/aflutter on eliquis right IJ 09/26 on norepinephrine for BP support, titrate to maintain a MAP >=65 Patient with congestion on CXR and SOB possibly 2/2 CHF exacerbation r/o COVID pneumonia. monitor I&O CVP monitoring cont Cardizam 60 Q6H Metoprolol 50 BID maintain HR <110 #Pulmonary acute hypoxic hypercapnic respiratory failure likely 2/2 CHF exacerbation 2/2 to UTI vs r/o COVID pneumonia. CXR: b/l lower lobe consolidation and left pleural effusion maintain saturation >88% On meropenem D2 Lasix 40 given #ID possible covid pneumonitis COVID PCR pending Airbone isolation trend inflammatory marker Leukopenia- cont to monitor Sputum Cx pending H/O ESBL UA positive UCx: Enterbacter >100,000 started on Meropenem D2 #Ppx Protonix IV Eliquis 5mg BID #FEN holding fluids for now monitor lytes Tube feeds- promote Lines Right IJ CVC 09/26 ortiz inserted 09/26 Dispo: cont meropenem, monitor HR, cont lasix Visit type - Emergency Visit Emergency Visit: Yes ED Registration Date: 09/27/19 Care time: The patient presented to the Emergency Department on the above date and was hospitalized for further evaluation of their emergent condition. - New Patient This patient is new to me today: Yes Date on this admission: 10/07/19 - Critical Care Critical Care patient: No - Discharge Referral Referred to [facility] Med P.C.: No ATTENDING PHYSICIAN STATEMENT I saw and evaluated the patient. I reviewed the resident's note and discussed the case with the resident. I agree with the resident's findings and plan as documented. SUBJECTIVE: OBJECTIVE: ASSESSMENT AND PLAN:
--- NOTE | 2019-09-29 14:07 | PN ---
Progress Note, Physician History of Present Illness: SEDATED ON VENTILATOR NO ACUTE DISTRESS AFEBRILE LEUKOPENIA NOTED BC NO GROWTH URINE C/S (R) ENTEROBACTER - Current Medication List Current Medications: Active Medications Amino Acids (Prosource No Carb Liquid Pkt) 30 ml PO BID@0800,1730 [facility] Apixaban (Eliquis -) 5 mg PEG BID [facility] Last Admin: 09/29/19 10:07 Dose: 5 mg Documented by: Chlorhexidine Gluconate (Hibiclens For Decolonization -) 1 applic TP HS [facility] Last Admin: 09/28/19 21:19 Dose: 1 applic Documented by: Diltiazem HCl (Cardizem -) 60 mg PO Q6HPO [facility] Last Admin: 09/29/19 12:02 Dose: 60 mg Documented by: Fentanyl (Sublimaze Ivpb) 500 mcg in 100 mls @ 27.216 mls/hr IVPB TITR [facility]; Protocol Last Admin: 09/29/19 09:00 Dose: Not Given Documented by: Midazolam HCl 100 mg/ Sodium (Chloride) 100 mls @ 1 mls/hr IVPB TITR [facility]; Protocol Last Admin: 09/29/19 13:24 Dose: 10 mg/hr, 10 mls/hr Documented by: Norepinephrine Bitartrate 16, (000 mcg/ Sodium Chloride) 500 mls @ 9.375 mls/hr IV TITR [facility]; Protocol Last Titration: 09/29/19 13:30 Dose: 5 mcg/min, 9.375 mls/hr Documented by: Propofol (Diprivan -) 1,000,000 mcg in 100 mls @ 8.165 mls/hr IVPB TITR [facility]; Protocol Last Titration: 09/29/19 13:30 Dose: 35 mcg/kg/min, 28.576 mls/hr Documented by: Meropenem 1 gm/ Dextrose 100 mls @ 200 mls/hr IVPB Q8H-IV [facility]IS[facility] Last Admin: 09/29/19 10:07 Dose: 200 mls/hr Documented by: Metoprolol Tartrate (Lopressor -) 50 mg GT BID [facility] Last Admin: 09/29/19 10:07 Dose: 50 mg Documented by: Mupirocin (Bactroban Ointment (For Decolonization) -) 1 applic NS BID [facility] Stop: 10/02/19 13:29 Last Admin: 09/29/19 10:07 Dose: 1 applic Documented by: Pantoprazole Sodium (Protonix Iv) 40 mg IVPUSH DAILY [facility] Last Admin: 09/29/19 12:01 Dose: 40 mg Documented by: - Objective Vital Signs: Vital Signs Temperature 97.6 F 09/29/19 12:00 Pulse Rate 72 09/29/19 13:30 Respiratory Rate 16 09/29/19 12:00 Blood Pressure 83/57 L 09/29/19 13:30 O2 Sat by Pulse Oximetry (%) 91 L 09/29/19 11:42 Constitutional: Yes: No Distress Eyes: Yes: Conjunctiva Clear Cardiovascular: Yes: Regular Rate and Rhythm, S1, S2 Respiratory: Yes: Mechanically Ventilated Gastrointestinal: Yes: Normal Bowel Sounds, Soft, Abdomen, Obese. No: Tenderness Edema: Yes Labs: CBC, BMP 09/29/19 05:30 09/29/19 05:30 INR, PTT INR 1.02 (0.83-1.09) 09/27/19 05:20 Assessment/Plan ACUTE RESP FAILURE R/O PNEUMONIA SEPSIS R/O SEPTIC SHOCK UTI S/P CARDIOPULMONARY ARREST LEUKOPENIA R/O COVID-19 CONTINUE MEROPENEM VENTILATORY/ HEMODYNAMIC SUPPORT CONTACT PRECAUTIONS CONTINUE MEROPENEM CRITICAL CARE TIME 35MIN
[2019-09-29] MEDS: AMINO ACIDS/PROTEIN HYDROLYS 30 ML LIQUID.PKT PO SCH (17:21)
[2019-09-29] MEDS: CHLORHEXIDINE GLUCONATE 4% CLEANSER FOR DECOLONIZATION TP SCH (22:46)
[2019-09-30] MEDS: MEROPENEM 1 GM in DEXTROSE 5%-WATER 100 ML IVPB SCH ×3 (02:59→17:40)
[2019-09-30] MEDS: dilTIAZem HCL 60 MG TABLET PO SCH ×4 (06:26→17:40)
[2019-09-30 06:55] LABS: HEMATOCRIT 28.3 % (35.4-49); HEMOGLOBIN 8.8 GM/dL (11.7-16.9); MCH 25.6 pg (25.7-33.7); MCHC 31.2 g/dl (32.0-35.9); MEAN CELL VOLUME 82.1 fl (80-96); MEAN PLT VOLUME 8.2 fl (7.5-11.1); PLATELET COUNT 243 K/MM3 (134-434); RBC 3.45 M/mm3 (4.00-5.60); RDW 17.9 % (11.9-15.9); WHITE BLOOD COUNT 2.1 K/mm3 (4.0-10.0)
[2019-09-30 07:20] LABS: ALBUMIN 1.8 g/dl (3.4-5.0); BILIRUBIN,TOTAL 0.4 mg/dL (0.2-1); BLOOD UREA NITROGEN 15.4 mg/dL (7-18); CALCIUM 8.1 mg/dL (8.5-10.1); CREATININE 0.9 mg/dL (0.55-1.3); MAGNESIUM 1.6 mg/dL (1.8-2.4); POTASSIUM 4.3 mmol/L (3.5-5.1); TOT PROT 4.6 g/dl (6.4-8.2)
[2019-09-30] MEDS ORDERED: MAGNESIUM SULF 50% (8.12 MEQ/2 ML-1 GM VIAL) IVPB ONE (08:10)
[2019-09-30] MEDS ORDERED: MEROPENEM 1 GM VIAL (RESTRICTED TO ID) IVPB ONE ×2 (08:34→17:15)
[2019-09-30] MEDS ORDERED: MIDAZOLAM IN 0.9 % SOD.CHLORID 1 MG/1 ML PLAST..BAG ONE ×2 (08:34→18:50)
[2019-09-30] MEDS ORDERED: DEXTROSE 5%-WATER 100 ML IVPB ONE ×2 (08:34→17:15)
[2019-09-30] MEDS: MIDAZOLAM 100 MG in SODIUM CHLORIDE 100 ML IVPB SCH (09:04)
[2019-09-30] MEDS: PANTOPRAZOLE SODIUM 40 MG VIAL IVPUSH SCH (09:35)
[2019-09-30] MEDS: MUPIROCIN 2% TOPICAL OINTMENT FOR DECOLONIZATION NS SCH ×2 (09:35→21:28)
[2019-09-30] MEDS: APIXABAN 5 MG TABLET PEG SCH ×2 (09:35→21:28)
[2019-09-30] MEDS: METOPROLOL TARTRATE 50 MG TABLET (FP) GT SCH ×2 (09:35→21:29)
[2019-09-30] MEDS: AMINO ACIDS/PROTEIN HYDROLYS 30 ML LIQUID.PKT PO SCH ×2 (09:35→17:40)
[2019-09-30] MEDS ORDERED: FUROSEMIDE 40 MG/4 ML INJECTABLE VIAL IVPUSH ONE (10:59)
--- NOTE | 2019-09-30 11:00 | PN ---
Teaching Attending Note Name of Resident: David Toribio ATTENDING PHYSICIAN STATEMENT I saw and evaluated the patient. I reviewed the resident's note and discussed the case with the resident. I agree with the resident's findings and plan as documented. SUBJECTIVE: Pt seen and examined in the ICU. Remains intubated, sedated on low dose levophed gtt. No fevers recorded. Good urine output. OBJECTIVE: Vital Signs Period Temp Pulse Resp BP Sys/Kenyon Pulse Ox Last 24 Hr 96.4 F-97.8 F 71-108 14-18 83-127/57-78 91-99 Intake & Output 09/27/19 09/28/19 09/29/19 09/30/19 23:59 23:59 23:59 23:59 Intake Total 1205 1666.8 707.6 Output Total 2150 1650 3020 Balance -2150 -445 -1353.2 707.6 Weight 136.078 kg 122.47 kg 123.2 kg Gen: intubated, sedated Heart: RRR Lung: scattered rhonchi Abd: soft, nontender Ext: +edema CXR: RLL atelectasis vs infiltrate CBC, BMP 09/30/19 06:15 09/30/19 06:15 Active Medications Amino Acids (Prosource No Carb Liquid Pkt) 30 ml PO BID@0800,1730 [facility] Last Admin: 09/29/19 17:21 Dose: 30 ml Documented by: Apixaban (Eliquis -) 5 mg PEG BID [facility] Last Admin: 09/29/19 22:46 Dose: 5 mg Documented by: Chlorhexidine Gluconate (Hibiclens For Decolonization -) 1 applic TP HS [facility] Last Admin: 09/29/19 22:46 Dose: 1 applic Documented by: Diltiazem HCl (Cardizem -) 60 mg PO Q6HPO [facility] Last Admin: 09/30/19 06:26 Dose: 60 mg Documented by: Fentanyl (Sublimaze Ivpb) 500 mcg in 100 mls @ 27.216 mls/hr IVPB TITR [facility]; Protocol Last Titration: 09/29/19 18:31 Dose: 0.37 mcg/kg/hr, 10 mls/hr Documented by: Midazolam HCl 100 mg/ Sodium (Chloride) 100 mls @ 1 mls/hr IVPB TITR [facility]; Protocol Last Admin: 09/30/19 09:04 Dose: 10 mg/hr, 10 mls/hr Documented by: Norepinephrine Bitartrate 16, (000 mcg/ Sodium Chloride) 500 mls @ 9.375 mls/hr IV TITR ELISSA; Protocol Last Titration: 09/29/19 13:30 Dose: 5 mcg/min, 9.375 mls/hr Documented by: Propofol (Diprivan -) 1,000,000 mcg in 100 mls @ 8.165 mls/hr IVPB TITR [facility]SA; Protocol Last Admin: 09/29/19 17:50 Dose: 35 mcg/kg/min, 28.576 mls/hr Documented by: Meropenem 1 gm/ Dextrose 100 mls @ 200 mls/hr IVPB Q8H-IV [facility] Last Admin: 09/30/19 02:59 Dose: 200 mls/hr Documented by: Metoprolol Tartrate (Lopressor -) 50 mg GT BID [facility] Last Admin: 09/29/19 22:48 Dose: Not Given Documented by: Mupirocin (Bactroban Ointment (For Decolonization) -) 1 applic NS BID [facility] Stop: 10/02/19 13:29 Last Admin: 09/29/19 22:46 Dose: 1 applic Documented by: Pantoprazole Sodium (Protonix Iv) 40 mg IVPUSH DAILY [facility] Last Admin: 09/29/19 12:01 Dose: 40 mg Documented by: ASSESSMENT AND PLAN: Acute Hypoxic and Hypercapneic Respiratory Failure UTI r/o Pneumonia Septic Shock Acute on Chronic Diastolic Heart Failure Volume Overload Atrial Fibrillation/Flutter with RVR h/o COVID19 Sarcoidosis Morbid Obesity EMMY/OHS - continue antibiotics - f/u cultures - mucolytics - titrate pressors to maintain MAP >65 - rate control - continue anticoagulation - lasix today - monitor urine output, creatinine - continue volume assist control - enteral feeds - DVT/GI prophylaxis - continue ICU monitoring critical care time spent in reviewing chart, evaluating patient and formulating plan 35 min
[2019-09-30] MEDS ORDERED: FUROSEMIDE 40 MG/4 ML INJECTABLE VIAL ONE (11:04)
--- NOTE | 2019-09-30 11:10 | PN ---
Physical Exam: SUBJECTIVE: Patient seen and examined at bedside. Overnight he was tachycardic to the 110s and treated with toprol and cardizem. This AM he in intubated, sedated and unable to participate in medical interview. OBJECTIVE: Vital Signs Period Temp Pulse Resp BP Sys/Kenyon Pulse Ox Last 24 Hr 96.4 F-97.8 F 71-108 14-18 83-127/57-78 91-99 GENERAL: intubated, sedated HEAD: Normal with no signs of trauma. LUNGS: rhonchi b/l HEART: Sinus tachy , normal S1 and S2 without murmur, rub or gallop. ABDOMEN: Soft, nontender, not distended, normoactive bowel sounds, LOWER EXTREMITIES: 2+ pulses, warm, well-perfused. No calf tenderness. No peripheral edema. Laboratory Results - last 24 hr 09/27/19 09/29/19 09/29/19 05:43 16:08 20:41 WBC RBC Hgb Hct MCV MCH MCHC RDW Plt Count MPV Sodium Potassium Chloride Carbon Dioxide Anion Gap BUN Creatinine Est GFR (CKD-EPI)AfAm Est GFR (CKD-EPI)NonAf POC Glucometer 110 96 Random Glucose Calcium Phosphorus Magnesium Total Bilirubin AST ALT Alkaline Phosphatase Total Protein Albumin COVID-19 (JAKUB) Not detected 09/30/19 09/30/19 09/30/19 05:48 06:15 06:15 WBC 2.1 L RBC 3.45 L Hgb 8.8 L Hct 28.3 L MCV 82.1 MCH 25.6 L MCHC 31.2 L RDW 17.9 H Plt Count 243 MPV 8.2 Sodium 144 Potassium 4.3 Chloride 106 Carbon Dioxide 32 Anion Gap 5 L BUN 15.4 Creatinine 0.9 Est GFR (CKD-EPI)AfAm 114.21 Est GFR (CKD-EPI)NonAf 98.54 POC Glucometer 71 Random Glucose 73 L Calcium 8.1 L Phosphorus 4.0 Magnesium 1.6 L Total Bilirubin 0.4 AST 11 L ALT 12 L Alkaline Phosphatase 126 H Total Protein 4.6 L Albumin 1.8 L COVID-19 (JAKUB) 09/30/19 09:40 WBC RBC Hgb Hct MCV MCH MCHC RDW Plt Count MPV Sodium Potassium Chloride Carbon Dioxide Anion Gap BUN Creatinine Est GFR (CKD-EPI)AfAm Est GFR (CKD-EPI)NonAf POC Glucometer 78 Random Glucose Calcium Phosphorus Magnesium Total Bilirubin AST ALT Alkaline Phosphatase Total Protein Albumin COVID-19 (JAKUB) Active Medications Generic Name Dose Route Start Last Admin Trade Name Brandi PRN Reason Stop Dose Admin Acetylcysteine 200 mg 09/30/19 12:00 Mucomyst 20 Oral / Inh Use Only* NEB RQID ELISSA Albuterol Sulfate 1 amp 09/30/19 12:00 Ventolin 0.083% Nebulizer Soln - NEB RQID ELISSA Amino Acids 30 ml 09/29/19 17:30 09/29/19 17:21 Prosource No Carb Liquid Pkt PO 30 ml BID@0800,1730 ELISSA Administration Apixaban 5 mg 09/27/19 22:00 09/29/19 22:46 Eliquis - PEG 5 mg BID ELISSA Administration Chlorhexidine Gluconate 1 applic 09/27/19 22:00 09/29/19 22:46 Hibiclens For Decolonization - TP 1 applic HS ELISSA Administration Diltiazem HCl 60 mg 09/29/19 12:00 09/30/19 06:26 Cardizem - PO 60 mg Q6HPO ELISSA Administration Fentanyl 500 mcg in 100 mls @ 27.216 mls/hr 09/27/19 09:00 09/29/19 18:31 Sublimaze Ivpb IVPB 0.37 mcg/kg/hr TITR ELISSA 10 mls/hr Titration Protocol 1 MCG/KG/HR Midazolam HCl 100 mg/ Sodium 100 mls @ 1 mls/hr 09/27/19 09:00 09/30/19 09:04 Chloride IVPB 10 mg/hr TITR ELISSA 10 mls/hr Administration Protocol 1 MG/HR Norepinephrine Bitartrate 16, 500 mls @ 9.375 mls/hr 09/27/19 09:45 09/29/19 13:30 000 mcg/ Sodium Chloride IV 5 mcg/min TITR ELISSA 9.375 mls/hr Titration Protocol 5 MCG/MIN Propofol 1,000,000 mcg in 100 mls @ 8.165 mls/hr 09/27/19 13:00 09/29/19 17:50 Diprivan - IVPB 35 mcg/kg/min TITR ELISSA 28.576 mls/hr Administration Protocol 10 MCG/KG/MIN Meropenem 1 gm/ Dextrose 100 mls @ 200 mls/hr 09/28/19 12:00 09/30/19 02:59 IVPB 200 mls/hr Q8H-IV ELISSA Administration Metoprolol Tartrate 50 mg 09/27/19 22:00 09/29/19 22:48 Lopressor - GT Not Given BID [facility] Mupirocin 1 applic 09/27/19 13:30 09/29/19 22:46 Bactroban Ointment (For Decolonization) - NS 10/02/19 13:29 1 applic BID ELISSA Administration Pantoprazole Sodium 40 mg 09/29/19 11:00 09/29/19 12:01 Protonix Iv IVPUSH 40 mg DAILY ELISSA Administration ASSESSMENT/PLAN: 53 y/o male PMH dDHF, afib/flutter on eliquis, sarcoidosis, guillan barre, morbid obesity, tracheostomy 2/2 respiratory failure s/p reversal comes into the ed c/o worsening SOB and admitted for acute hypoxic hypercapnic respiratory. #Neuro Propofol 35, versed 10, fentanyl 75 #CVS h/o afib/aflutter on eliquis Levophed 2, maintain a MAP >=65 Cardizam 60 Q6H and metoprolol 50 BID to maintain HR <110 #Pulmonary Acute hypoxic hypercapnic respiratory failure likely 2/2 CHF CXR: b/l lower lobe consolidation and left pleural effusion Maintain 02 saturation >88% Lasix 40 mg IV x1 #ID H/o CoVid-19 and current serology NEG Mucomyst with albuterol nebulizer Leukopenia- cont to monitor Sputum Cx pending H/O ESBL UA positive UCx: Enterbacter >100,000 Meropenem day 3 # TLD RIGHT IJ 09/26 ETT 09/26 Andrews 09/26 #Ppx Protonix 40 mg IV qd Eliquis 5mg BID #FEN Hold fluids for now Cont. to monitor electrolytes Tube feeds- promote with no free water #Disposition ICU Full code Visit type - Emergency Visit Emergency Visit: No - New Patient This patient is new to me today: No - Critical Care Critical Care patient: Yes Total Critical Care Time (in minutes): 35 Critical Care Statement: The care of this patient involved high complexity decision making to prevent further life threatening deterioration of the patient's condition and/or to evaluate & treat vital organ system(s) failure or risk of failure. ATTENDING PHYSICIAN STATEMENT I saw and evaluated the patient. I reviewed the resident's note and discussed the case with the resident. I agree with the resident's findings and plan as documented. SUBJECTIVE: OBJECTIVE: ASSESSMENT AND PLAN:
[2019-09-30] MEDS: ACETYLCYSTEINE 20% 200MG/ML 4 ML VIAL *FOR ORAL / INH USE ONLY NEB SCH ×3 (11:25→20:44)
[2019-09-30] MEDS: ALBUTEROL SO4 0.083% IH SOL 2.5 MG/3 ML VIAL.NEB. NEB SCH ×3 (12:05→20:46)
[2019-09-30] MEDS: PROPOFOL 1,000,000 MCG/100 ML VIAL IVPB SCH ×2 (17:40→21:45)
[2019-09-30] MEDS: FENTANYL NS IVPB 500 MCG/100 ML BAG IVPB SCH (21:26)
[2019-09-30] MEDS: NOREPINEPHRINE BITARTRATE 16,000 MCG in SODIUM CHLORIDE 484 ML IV SCH (21:27)
[2019-09-30] MEDS: CHLORHEXIDINE GLUCONATE 4% CLEANSER FOR DECOLONIZATION TP SCH (21:28)
--- NOTE | 2019-09-30 23:41 | PN ---
Progress Note, Physician History of Present Illness: SEDATED ON VENTILATOR NO ACUTE DISTRESS AFEBRILE LEUKOPENIC BC NO GROWTH URINE C/S (R) ENTEROBACTER - Current Medication List Current Medications: Active Medications Acetylcysteine (Mucomyst 20 Oral / Inh Use Only*) 200 mg NEB RQID [facility] Last Admin: 09/30/19 20:44 Dose: 200 mg Documented by: Albuterol Sulfate (Ventolin 0.083% Nebulizer Soln -) 1 amp NEB RQID [facility] Last Admin: 09/30/19 20:46 Dose: 1 amp Documented by: Amino Acids (Prosource No Carb Liquid Pkt) 30 ml PO BID@0800,1730 [facility] Last Admin: 09/30/19 17:40 Dose: 30 ml Documented by: Apixaban (Eliquis -) 5 mg PEG BID [facility] Last Admin: 09/30/19 21:28 Dose: 5 mg Documented by: Chlorhexidine Gluconate (Hibiclens For Decolonization -) 1 applic TP HS [facility] Last Admin: 09/30/19 21:28 Dose: 1 applic Documented by: Diltiazem HCl (Cardizem -) 60 mg PO Q6HPO [facility] Last Admin: 09/30/19 17:40 Dose: 60 mg Documented by: Fentanyl (Sublimaze Ivpb) 500 mcg in 100 mls @ 27.216 mls/hr IVPB TITR [facility]; Protocol Last Admin: 09/30/19 21:26 Dose: Not Given Documented by: Midazolam HCl 100 mg/ Sodium (Chloride) 100 mls @ 1 mls/hr IVPB TITR [facility]; Protocol Last Admin: 09/30/19 09:04 Dose: 10 mg/hr, 10 mls/hr Documented by: Norepinephrine Bitartrate 16, (000 mcg/ Sodium Chloride) 500 mls @ 9.375 mls/hr IV TITR [facility]; Protocol Last Admin: 09/30/19 21:27 Dose: Not Given Documented by: Propofol (Diprivan -) 1,000,000 mcg in 100 mls @ 8.165 mls/hr IVPB TITR [facility]; Protocol Last Admin: 09/30/19 17:40 Dose: 25 mcg/kg/min, 20.412 mls/hr Documented by: Meropenem 1 gm/ Dextrose 100 mls @ 200 mls/hr IVPB Q8H-IV [facility] Last Admin: 09/30/19 17:40 Dose: 200 mls/hr Documented by: Metoprolol Tartrate (Lopressor -) 50 mg GT BID [facility] Last Admin: 09/30/19 21:29 Dose: 50 mg Documented by: Mupirocin (Bactroban Ointment (For Decolonization) -) 1 applic NS BID [facility] Stop: 10/02/19 13:29 Last Admin: 09/30/19 21:28 Dose: 1 applic Documented by: Pantoprazole Sodium (Protonix Iv) 40 mg IVPUSH DAILY [facility] Last Admin: 09/30/19 09:35 Dose: 40 mg Documented by: - Objective Vital Signs: Vital Signs Temperature 96.5 F L 09/30/19 22:00 Pulse Rate 72 09/30/19 22:00 Respiratory Rate 18 09/30/19 22:33 Blood Pressure 101/66 09/30/19 22:00 O2 Sat by Pulse Oximetry (%) 91 L 09/30/19 22:33 Constitutional: Yes: Obese Cardiovascular: Yes: Regular Rate and Rhythm, S1, S2 Respiratory: Yes: CTA Bilaterally Gastrointestinal: Yes: Normal Bowel Sounds, Soft, Abdomen, Obese Edema: Yes Labs: CBC, BMP 09/30/19 06:15 09/30/19 06:15 INR, PTT INR 1.02 (0.83-1.09) 09/27/19 05:20 Assessment/Plan ACUTE RESP FAILURE R/O PNEUMONIA SEPSIS R/O SEPTIC SHOCK UTI S/P CARDIOPULMONARY ARREST LEUKOPENIA CONTINUE MEROPENEM VENTILATORY/ HEMODYNAMIC SUPPORT CONTACT PRECAUTIONS CONTINUE MEROPENEM
[2019-10-01] MEDS: PROPOFOL 1,000,000 MCG/100 ML VIAL IVPB SCH ×5 (02:00→19:30)
[2019-10-01] MEDS: MEROPENEM 1 GM in DEXTROSE 5%-WATER 100 ML IVPB SCH ×3 (02:50→17:19)
[2019-10-01] MEDS ORDERED: MIDAZOLAM IN 0.9 % SOD.CHLORID 1 MG/1 ML PLAST..BAG ONE ×3 (03:49→21:05)
[2019-10-01] MEDS: dilTIAZem HCL 60 MG TABLET PO SCH ×4 (06:15→17:19)
[2019-10-01 06:37] LABS: ARTERIAL BLD GAS O2 SATURATION 93.3 mmHg (95-98); ARTERIAL BLOOD GAS BASE EXCESS 5.3 mmol/L (-2-2); ARTERIAL BLOOD GAS PO2 67.3 mmHg (80-100); ARTERIAL BLOOD GAS pH 7.405 (7.350-7.450)
[2019-10-01 06:57] LABS: ALLENS TEST POSITIVE; VENT MODE A/C; VENT RATE 18
[2019-10-01 07:23] LABS: HEMOGLOBIN 9.6 GM/dL (11.7-16.9); MCH 26.2 pg (25.7-33.7); MCHC 32.1 g/dl (32.0-35.9); MEAN CELL VOLUME 81.7 fl (80-96); MEAN PLT VOLUME 8.1 fl (7.5-11.1); PLATELET COUNT 331 K/MM3 (134-434); RBC 3.67 M/mm3 (4.00-5.60); RDW 17.7 % (11.9-15.9); WHITE BLOOD COUNT 2.7 K/mm3 (4.0-10.0)
[2019-10-01 07:27] LABS: BILIRUBIN,TOTAL 0.4 mg/dL (0.2-1); BLOOD UREA NITROGEN 20.5 mg/dL (7-18); CREATININE 0.9 mg/dL (0.55-1.3); MAGNESIUM 1.7 mg/dL (1.8-2.4); PHOSPHOROUS 4.2 mg/dL (2.5-4.9); POTASSIUM 4.6 mmol/L (3.5-5.1)
[2019-10-01] MEDS ORDERED: MAGNESIUM SULF 50% (8.12 MEQ/2 ML-1 GM VIAL) IVPB ONE (08:00)
[2019-10-01] MEDS: NOREPINEPHRINE BITARTRATE 16,000 MCG in SODIUM CHLORIDE 484 ML IV SCH (08:54)
[2019-10-01] MEDS: AMINO ACIDS/PROTEIN HYDROLYS 30 ML LIQUID.PKT PO SCH ×2 (08:55→17:18)
[2019-10-01] MEDS: FENTANYL NS IVPB 500 MCG/100 ML BAG IVPB SCH ×2 (09:00→18:19)
[2019-10-01] MEDS: MIDAZOLAM 100 MG in SODIUM CHLORIDE 100 ML IVPB SCH ×2 (09:00→14:56)
[2019-10-01] MEDS: ACETYLCYSTEINE 20% 200MG/ML 4 ML VIAL *FOR ORAL / INH USE ONLY NEB SCH ×4 (09:00→21:00)
[2019-10-01] MEDS: ALBUTEROL SO4 0.083% IH SOL 2.5 MG/3 ML VIAL.NEB. NEB SCH ×4 (09:00→21:00)
[2019-10-01] MEDS: APIXABAN 5 MG TABLET PEG SCH ×2 (09:02→21:06)
[2019-10-01] MEDS: METOPROLOL TARTRATE 50 MG TABLET (FP) GT SCH ×2 (09:02→21:06)
[2019-10-01] MEDS: PANTOPRAZOLE SODIUM 40 MG VIAL IVPUSH SCH (09:02)
[2019-10-01] MEDS ORDERED: VANCOMYCIN 1,000 MG in DEXTROSE 5%-WATER - 250 ML IVPB SCH (10:45)
--- NOTE | 2019-10-01 10:55 | PN ---
Teaching Attending Note Name of Resident: David Toribio ATTENDING PHYSICIAN STATEMENT I saw and evaluated the patient. I reviewed the resident's note and discussed the case with the resident. I agree with the resident's findings and plan as documented. SUBJECTIVE: Pt seen and examined in the ICU. Remains intubated, sedated on low dose levophed gtt. No fevers recorded. Good urine output. CXR more congested today. Urine growing enterobacter. Sputum growing presumptive MRSA and gram negative bacilli. OBJECTIVE: Vital Signs Period Temp Pulse Resp BP Sys/[place] Pulse Ox Last 24 Hr 96.3 F-97.8 F 70-93 18-18 94-112/55-74 91-95 Intake & Output 09/28/19 09/29/19 09/30/19 10/01/19 23:59 23:59 23:59 23:59 Intake Total 1205 1666.8 1955.6 1037 Output Total 1650 3020 2300 1200 Balance -445 -1353.2 -344.4 -163 Weight 122.47 kg 123.2 kg 54.114 kg Gen: intubated, sedated Heart: RRR Lung: scattered rhonchi Abd: soft, nontender Ext: +edema CXR: RLL atelectasis vs infiltrate CBC, BMP 10/01/19 05:00 10/01/19 05:00 Active Medications Acetylcysteine (Mucomyst 20 Oral / Inh Use Only*) 200 mg NEB RQID [facility] Last Admin: 10/01/19 09:00 Dose: 200 mg Documented by: Albuterol Sulfate (Ventolin 0.083% Nebulizer Soln -) 1 amp NEB RQID [facility] Last Admin: 09/30/19 20:46 Dose: 1 amp Documented by: Amino Acids (Prosource No Carb Liquid Pkt) 30 ml PO BID@0800,1730 [facility] Last Admin: 10/01/19 08:55 Dose: 30 ml Documented by: Apixaban (Eliquis -) 5 mg PEG BID [facility] Last Admin: 10/01/19 09:02 Dose: 5 mg Documented by: Chlorhexidine Gluconate (Hibiclens For Decolonization -) 1 applic TP HS [facility] Last Admin: 09/30/19 21:28 Dose: 1 applic Documented by: Diltiazem HCl (Cardizem -) 60 mg PO Q6HPO [facility] Last Admin: 10/01/19 06:15 Dose: 60 mg Documented by: Furosemide (Lasix Injection -) 40 mg IVPUSH BID [facility] Fentanyl (Sublimaze Ivpb) 500 mcg in 100 mls @ 27.216 mls/hr IVPB TITR [facility]; Protocol Last Admin: 09/30/19 21:26 Dose: Not Given Documented by: Midazolam HCl 100 mg/ Sodium (Chloride) 100 mls @ 1 mls/hr IVPB TITR [facility]; Protocol Last Admin: 09/30/19 09:04 Dose: 10 mg/hr, 10 mls/hr Documented by: Norepinephrine Bitartrate 16, (000 mcg/ Sodium Chloride) 500 mls @ 9.375 mls/hr IV TITR [facility]; Protocol Last Admin: 10/01/19 08:54 Dose: 2 mcg/min, 3.75 mls/hr Documented by: Propofol (Diprivan -) 1,000,000 mcg in 100 mls @ 8.165 mls/hr IVPB TITR [facility]; Protocol Last Admin: 10/01/19 02:00 Dose: 25 mcg/kg/min, 20.412 mls/hr Documented by: Meropenem 1 gm/ Dextrose 100 mls @ 200 mls/hr IVPB Q8H-IV [facility] Last Admin: 10/01/19 02:50 Dose: 200 mls/hr Documented by: Vancomycin HCl 1,000 mg/ (Dextrose) 250 mls @ 166.667 mls/hr IVPB Q12H [facility]; Pro tocol Metoprolol Tartrate (Lopressor -) 50 mg GT BID [facility] Last Admin: 10/01/19 09:02 Dose: 50 mg Documented by: Mupirocin (Bactroban Ointment (For Decolonization) -) 1 applic NS BID [facility] Stop: 10/02/19 13:29 Last Admin: 09/30/19 21:28 Dose: 1 applic Documented by: Pantoprazole Sodium (Protonix Iv) 40 mg IVPUSH DAILY [facility] Last Admin: 10/01/19 09:02 Dose: 40 mg Documented by: ASSESSMENT AND PLAN: Acute Hypoxic and Hypercapneic Respiratory Failure UTI Pneumonia ARDS Septic Shock Acute on Chronic Diastolic Heart Failure Volume Overload Atrial Fibrillation/Flutter with RVR h/o COVID19 Sarcoidosis Morbid Obesity EMMY/OHS - continue antibiotics - f/u cultures - mucolytics - titrate pressors to maintain MAP >65 - rate control - continue anticoagulation - lasix today BID - monitor urine output, creatinine - continue volume assist control - enteral feeds - DVT/GI prophylaxis - continue ICU monitoring critical care time spent in reviewing chart, evaluating patient and formulating plan 35 min
[2019-10-01] MEDS ORDERED: DEXTROSE 5%-WATER 100 ML IVPB ONE ×3 (10:57→21:04)
[2019-10-01] MEDS ORDERED: MEROPENEM 1 GM VIAL (RESTRICTED TO ID) IVPB ONE ×3 (10:57→21:04)
--- NOTE | 2019-10-01 10:58 | PN ---
Physical Exam: SUBJECTIVE: Patient seen and examined at bedside. Overnight he maintained appropriate HR but temperature was 96.5 and Gage hugger was applied. This morning he remains intubated, sedated, and is unable to participate in medical interview. OBJECTIVE: Vital Signs Period Temp Pulse Resp BP Sys/[place] Pulse Ox Last 24 Hr 96.3 F-97.8 F 70-93 18-18 94-112/55-74 91-95 GENERAL: intubated, sedated HEAD: Normal with no signs of trauma. LUNGS: rhonchi b/l HEART: Sinus tachy , normal S1 and S2 without murmur, rub or gallop. ABDOMEN: Soft, nontender, not distended, normoactive bowel sounds, LOWER EXTREMITIES: 2+ pulses, warm, well-perfused. No calf tenderness. No peripheral edema. Laboratory Results - last 24 hr 09/30/19 09/30/19 10/01/19 14:55 21:47 05:00 WBC 2.7 L RBC 3.67 L Hgb 9.6 L Hct 30.0 L MCV 81.7 MCH 26.2 MCHC 32.1 RDW 17.7 H Plt Count 331 D MPV 8.1 Anticoagulation Therapy Puncture Site Patient Temperature ABG pH ABG pCO2 ABG pO2 ABG HCO3 ABG O2 Sat (Measured) ABG O2 Content ABG Base Excess Adrian Test Patient On Oxygen O2 Delivery Device Oxygen Flow Rate Vent Mode Vent Rate Mechanical Rate PEEP Pressure Support Vent Sodium Potassium Chloride Carbon Dioxide Anion Gap BUN Creatinine Est GFR (CKD-EPI)AfAm Est GFR (CKD-EPI)NonAf POC Glucometer 88 93 Random Glucose Calcium Phosphorus Magnesium Total Bilirubin AST ALT Alkaline Phosphatase Total Protein Albumin 10/01/19 10/01/19 10/01/19 05:00 06:00 06:28 WBC RBC Hgb Hct MCV MCH MCHC RDW Plt Count MPV Anticoagulation Therapy No Result Required. Puncture Site Left radial Patient Temperature No Result Required. ABG pH 7.405 ABG pCO2 50.40 H ABG pO2 67.3 L ABG HCO3 30.9 H ABG O2 Sat (Measured) 93.3 L ABG O2 Content No Result Required. ABG Base Excess 5.3 H Adrian Test Positive Patient On Oxygen Yes O2 Delivery Device Vent Oxygen Flow Rate 60% Vent Mode A/c Vent Rate 18 Mechanical Rate Yes PEEP 5.0 Pressure Support Vent 390 Sodium 142 Potassium 4.6 Chloride 104 Carbon Dioxide 36 H Anion Gap 2 L BUN 20.5 H Creatinine 0.9 Est GFR (CKD-EPI)AfAm 114.21 Est GFR (CKD-EPI)NonAf 98.54 POC Glucometer 150 Random Glucose 150 H Calcium 8.0 L Phosphorus 4.2 Magnesium 1.7 L Total Bilirubin 0.4 AST 11 L ALT 12 L Alkaline Phosphatase 141 H Total Protein 5.0 L Albumin 2.0 L 10/01/19 10:47 WBC RBC Hgb Hct MCV MCH MCHC RDW Plt Count MPV Anticoagulation Therapy Puncture Site Patient Temperature ABG pH ABG pCO2 ABG pO2 ABG HCO3 ABG O2 Sat (Measured) ABG O2 Content ABG Base Excess Adrian Test Patient On Oxygen O2 Delivery Device Oxygen Flow Rate Vent Mode Vent Rate Mechanical Rate PEEP Pressure Support Vent Sodium Potassium Chloride Carbon Dioxide Anion Gap BUN Creatinine Est GFR (CKD-EPI)AfAm Est GFR (CKD-EPI)NonAf POC Glucometer 147 Random Glucose Calcium Phosphorus Magnesium Total Bilirubin AST ALT Alkaline Phosphatase Total Protein Albumin Active Medications Generic Name Dose Route Start Last Admin Trade Name Freq PRN Reason Stop Dose Admin Acetylcysteine 200 mg 09/30/19 12:00 10/01/19 09:00 Mucomyst 20 Oral / Inh Use Only* NEB 200 mg RQID [facility]ISSA Administration Albuterol Sulfate 1 amp 09/30/19 12:00 10/01/19 09:00 Ventolin 0.083% Nebulizer Soln - NEB 1 amp RQID [facility]ISSA Administration Amino Acids 30 ml 09/29/19 17:30 10/01/19 08:55 Prosource No Carb Liquid Pkt PO 30 ml BID@0800,1730 [facility] Administration Apixaban 5 mg 09/27/19 22:00 10/01/19 09:02 Eliquis - PEG 5 mg BID [facility] Administration Chlorhexidine Gluconate 1 applic 09/27/19 22:00 09/30/19 21:28 Hibiclens For Decolonization - TP 1 applic HS [facility] Administration Diltiazem HCl 60 mg 09/29/19 12:00 10/01/19 06:15 Cardizem - PO 60 mg Q6HPO [facility] Administration Furosemide 40 mg 10/01/19 14:00 Lasix Injection - IVPUSH BIDLASIX [facility]ISSA Fentanyl 500 mcg in 100 mls @ 27.216 mls/hr 09/27/19 09:00 09/30/19 21:26 Sublimaze Ivpb IVPB Not Given TITR [facility] Protocol 1 MCG/KG/HR Midazolam HCl 100 mg/ Sodium 100 mls @ 1 mls/hr 09/27/19 09:00 09/30/19 09:04 Chloride IVPB 10 mg/hr TITR [facility] 10 mls/hr Administration Protocol 1 MG/HR Norepinephrine Bitartrate 16, 500 mls @ 9.375 mls/hr 09/27/19 09:45 10/01/19 08:54 000 mcg/ Sodium Chloride IV 2 mcg/min TITR [facility] 3.75 mls/hr Administration Protocol 5 MCG/MIN Propofol 1,000,000 mcg in 100 mls @ 8.165 mls/hr 09/27/19 13:00 10/01/19 02:00 Diprivan - IVPB 25 mcg/kg/min TITR [facility] 20.412 mls/hr Administration Protocol 10 MCG/KG/MIN Meropenem 1 gm/ Dextrose 100 mls @ 200 mls/hr 09/28/19 12:00 10/01/19 02:50 IVPB 200 mls/hr Q8H-IV [facility] Administration Vancomycin HCl 1,000 mg/ 250 mls @ 166.667 mls/hr 10/01/19 10:45 Dextrose IVPB Q12H [facility] Protocol Metoprolol Tartrate 50 mg 09/27/19 22:00 10/01/19 09:02 Lopressor - GT 50 mg BID [facility] Administration Mupirocin 1 applic 09/27/19 13:30 09/30/19 21:28 Bactroban Ointment (For Decolonization) - NS 10/02/19 13:29 1 applic BID [facility] Administration Pantoprazole Sodium 40 mg 09/29/19 11:00 10/01/19 09:02 Protonix Iv IVPUSH 40 mg DAILY [facility] Administration ASSESSMENT/PLAN: 53 y/o male PMH dDHF, afib/flutter on eliquis, sarcoidosis, guillan barre, morbid obesity, tracheostomy 2/2 respiratory failure s/p reversal comes into the ed c/o worsening SOB and admitted for acute hypoxic hypercapnic respiratory. #Neuro Propofol 30, versed 10, fentanyl 30 #CVS afib/aflutter on eliquis, dCHF Levophed 2, maintain a MAP >=65 Cardizam 60 Q6H and metoprolol 50 BID to maintain HR <110 #Pulmonary Acute hypoxic hypercapnic respiratory failure, PNA, ARDS CXR: b/l lower lobe consolidation and left pleural effusion Maintain 02 saturation >88% Lasix 40 mg IV BID #ID H/o CoVid-19 and current serology NEG Mucomyst with albuterol nebulizer Leukopenia- cont to monitor Sputum Cx pending H/O ESBL UA positive UCx: Enterbacter >100,000 Sputum presumptive MRSA Contact precautions Meropenem day 4 # TLD RIGHT IJ 09/26 ETT 09/26 Andrews 09/26 #Ppx Protonix 40 mg IV qd Eliquis 5mg BID #FEN Hold fluids for now Cont. to monitor electrolytes Tube feeds- promote with no free water #Disposition ICU Full code Visit type - Emergency Visit Emergency Visit: No - New Patient This patient is new to me today: No - Critical Care Critical Care patient: Yes Total Critical Care Time (in minutes): 35 Critical Care Statement: The care of this patient involved high complexity decision making to prevent further life threatening deterioration of the patient's condition and/or to evaluate & treat vital organ system(s) failure or risk of failure. ATTENDING PHYSICIAN STATEMENT I saw and evaluated the patient. I reviewed the resident's note and discussed the case with the resident. I agree with the resident's findings and plan as documented. SUBJECTIVE: OBJECTIVE: ASSESSMENT AND PLAN:
--- NOTE | 2019-10-01 11:16 | PN ---
Progress Note, Physician History of Present Illness: SEDATED ON VENTILATOR NO ACUTE DISTRESS HYPOTHERMIC LEUKOPENIC BC NO GROWTH URINE C/S (R) ENTEROBACTER SPUTUM ESBL, MRSA - Current Medication List Current Medications: Active Medications Acetylcysteine (Mucomyst 20 Oral / Inh Use Only*) 200 mg NEB RQID [facility] Last Admin: 10/01/19 09:00 Dose: 200 mg Documented by: Albuterol Sulfate (Ventolin 0.083% Nebulizer Soln -) 1 amp NEB RQID [facility] Last Admin: 10/01/19 09:00 Dose: 1 amp Documented by: Amino Acids (Prosource No Carb Liquid Pkt) 30 ml PO BID@0800,1730 [facility] Last Admin: 10/01/19 08:55 Dose: 30 ml Documented by: Apixaban (Eliquis -) 5 mg PEG BID [facility] Last Admin: 10/01/19 09:02 Dose: 5 mg Documented by: Chlorhexidine Gluconate (Hibiclens For Decolonization -) 1 applic TP HS [facility] Last Admin: 09/30/19 21:28 Dose: 1 applic Documented by: Diltiazem HCl (Cardizem -) 60 mg PO Q6HPO [facility] Last Admin: 10/01/19 11:00 Dose: 60 mg Documented by: Furosemide (Lasix Injection -) 40 mg IVPUSH BIDLASIX [facility] Fentanyl (Sublimaze Ivpb) 500 mcg in 100 mls @ 27.216 mls/hr IVPB TITR [facility]; Protocol Last Admin: 09/30/19 21:26 Dose: Not Given Documented by: Midazolam HCl 100 mg/ Sodium (Chloride) 100 mls @ 1 mls/hr IVPB TITR [facility]; Protocol Last Admin: 09/30/19 09:04 Dose: 10 mg/hr, 10 mls/hr Documented by: Norepinephrine Bitartrate 16, (000 mcg/ Sodium Chloride) 500 mls @ 9.375 mls/hr IV TITR [facility]; Protocol Last Admin: 10/01/19 08:54 Dose: 2 mcg/min, 3.75 mls/hr Documented by: Propofol (Diprivan -) 1,000,000 mcg in 100 mls @ 8.165 mls/hr IVPB TITR [facility]; Protocol Last Admin: 10/01/19 11:12 Dose: 25 mcg/kg/min, 20.412 mls/hr Documented by: Meropenem 1 gm/ Dextrose 100 mls @ 200 mls/hr IVPB Q8H-IV [facility] Last Admin: 10/01/19 11:00 Dose: 200 mls/hr Documented by: Vancomycin HCl 1,000 mg/ (Dextrose) 250 mls @ 166.667 mls/hr IVPB Q12H [facility]; Protocol Metoprolol Tartrate (Lopressor -) 50 mg GT BID [facility] Last Admin: 10/01/19 09:02 Dose: 50 mg Documented by: Mupirocin (Bactroban Ointment (For Decolonization) -) 1 applic NS BID [facility] Stop: 10/02/19 13:29 Last Admin: 09/30/19 21:28 Dose: 1 applic Documented by: Pantoprazole Sodium (Protonix Iv) 40 mg IVPUSH DAILY [facility] Last Admin: 10/01/19 09:02 Dose: 40 mg Documented by: - Objective Vital Signs: Vital Signs Temperature 96.9 F L 10/01/19 10:00 Pulse Rate 70 10/01/19 10:00 Respiratory Rate 18 10/01/19 10:00 Blood Pressure 97/55 L 10/01/19 10:00 O2 Sat by Pulse Oximetry (%) 91 L 10/01/19 10:50 Constitutional: Yes: No Distress Eyes: Yes: Conjunctiva Clear Cardiovascular: Yes: Regular Rate and Rhythm, S1, S2 Respiratory: Yes: Mechanically Ventilated Gastrointestinal: Yes: Normal Bowel Sounds, Soft, Abdomen, Obese. No: Tenderness Edema: Yes Labs: CBC, BMP 10/01/19 05:00 10/01/19 05:00 INR, PTT INR 1.02 (0.83-1.09) 09/27/19 05:20 Assessment/Plan ACUTE RESP FAILURE + SPUTUM MRSA, ESBL PNEUMONIA SEPSIS R/O SEPTIC SHOCK UTI S/P CARDIOPULMONARY ARREST LEUKOPENIA CONTINUE MEROPENEM/VANCOMYCIN VENTILATORY/ HEMODYNAMIC SUPPORT CONTACT PRECAUTIONS
[2019-10-01] MEDS: VANCOMYCIN 1 GRAM (PRE-DOCKED) 1,000 MG/250 ML BAG IVPB SCH ×2 (12:00→23:02)
[2019-10-01] MEDS: FUROSEMIDE 40 MG/4 ML INJECTABLE VIAL IVPUSH SCH (13:21)
[2019-10-01] MEDS: MUPIROCIN 2% TOPICAL OINTMENT FOR DECOLONIZATION NS SCH ×2 (13:32→21:02)
[2019-10-01] MEDS: CHLORHEXIDINE GLUCONATE 4% CLEANSER FOR DECOLONIZATION TP SCH (21:02)
[2019-10-02] MEDS: MEROPENEM 1 GM in DEXTROSE 5%-WATER 100 ML IVPB SCH ×3 (01:09→17:21)
[2019-10-02] MEDS ORDERED: DEXTROSE 5%-WATER 100 ML IVPB ONE ×3 (01:24→17:02)
[2019-10-02] MEDS ORDERED: MEROPENEM 1 GM VIAL (RESTRICTED TO ID) IVPB ONE ×3 (01:24→17:02)
[2019-10-02] MEDS: PROPOFOL 1,000,000 MCG/100 ML VIAL IVPB SCH ×4 (01:44→21:03)
[2019-10-02] MEDS: FENTANYL NS IVPB 500 MCG/100 ML BAG IVPB SCH ×4 (03:00→21:30)
[2019-10-02] MEDS: FUROSEMIDE 40 MG/4 ML INJECTABLE VIAL IVPUSH SCH ×2 (05:57→14:40)
[2019-10-02] MEDS: dilTIAZem HCL 60 MG TABLET PO SCH ×4 (05:57→17:21)
[2019-10-02 06:16] LABS: ARTERIAL BLD GAS O2 SATURATION 93.1 mmHg (95-98); ARTERIAL BLOOD GAS BASE EXCESS 6.6 mmol/L (-2-2); ARTERIAL BLOOD GAS PO2 62.8 mmHg (80-100); ARTERIAL BLOOD GAS pH 7.463 (7.350-7.450)
[2019-10-02 06:42] LABS: ALLENS TEST POSITIVE
[2019-10-02 06:43] LABS: VENT MODE A/C; VENT RATE 18
[2019-10-02 07:16] LABS: HEMATOCRIT 30.3 % (35.4-49); HEMOGLOBIN 9.6 GM/dL (11.7-16.9); MCH 25.5 pg (25.7-33.7); MCHC 31.8 g/dl (32.0-35.9); MEAN CELL VOLUME 80.2 fl (80-96); MEAN PLT VOLUME 7.9 fl (7.5-11.1); PLATELET COUNT 371 K/MM3 (134-434); RBC 3.78 M/mm3 (4.00-5.60); RDW 17.9 % (11.9-15.9); WHITE BLOOD COUNT 3.3 K/mm3 (4.0-10.0)
[2019-10-02] MEDS: ALBUTEROL SO4 0.083% IH SOL 2.5 MG/3 ML VIAL.NEB. NEB SCH (07:30)
[2019-10-02] MEDS: ACETYLCYSTEINE 20% 200MG/ML 4 ML VIAL *FOR ORAL / INH USE ONLY NEB SCH (07:30)
[2019-10-02 07:52] LABS: ALBUMIN 1.9 g/dl (3.4-5.0); BILIRUBIN,TOTAL 0.4 mg/dL (0.2-1); BLOOD UREA NITROGEN 22.8 mg/dL (7-18); MAGNESIUM 1.7 mg/dL (1.8-2.4); TOT PROT 4.8 g/dl (6.4-8.2)
[2019-10-02] MEDS: AMINO ACIDS/PROTEIN HYDROLYS 30 ML LIQUID.PKT PO SCH ×2 (09:03→17:21)
[2019-10-02] MEDS: PANTOPRAZOLE SODIUM 40 MG VIAL IVPUSH SCH (09:03)
[2019-10-02] MEDS: MUPIROCIN 2% TOPICAL OINTMENT FOR DECOLONIZATION NS SCH (09:04)
[2019-10-02] MEDS: APIXABAN 5 MG TABLET PEG SCH ×2 (09:04→21:03)
[2019-10-02] MEDS: METOPROLOL TARTRATE 50 MG TABLET (FP) GT SCH ×2 (09:04→21:03)
[2019-10-02] MEDS: MIDAZOLAM 100 MG in SODIUM CHLORIDE 100 ML IVPB SCH ×4 (09:05→21:30)
[2019-10-02] MEDS ORDERED: MIDAZOLAM IN 0.9 % SOD.CHLORID 1 MG/1 ML PLAST..BAG ONE ×2 (10:14→19:24)
[2019-10-02] MEDS ORDERED: MAGNESIUM SULF 50% (8.12 MEQ/2 ML-1 GM VIAL) IVPB ONE (10:37)
--- NOTE | 2019-10-02 10:45 | PN ---
Physical Exam: SUBJECTIVE: Patient seen and examined at bedside. No events overnight. OBJECTIVE: Vital Signs Period Temp Pulse Resp BP Sys/Kenyon Pulse Ox Last 24 Hr 96.3 F-97.6 F 69-94 18-24 82-103/56-72 91-94 GENERAL: The patient is intubated and sedated. HEAD: Normal with no signs of trauma. LUNGS: Breath sounds equal, clear to auscultation bilaterally, no wheezes, no crackles. Mechanical breath sounds b/l HEART: Regular rate and rhythm, S1, S2 without murmur, rub or gallop. ABDOMEN: Soft, nontender, nondistended, normoactive bowel sounds, no guarding, no rebound. EXTREMITIES: 2+ pulses, warm, well-perfused, no edema. NEUROLOGICAL: unable to obtain as patient sedated. Laboratory Results - last 24 hr 10/01/19 10/01/19 10/01/19 10:47 15:17 21:02 WBC RBC Hgb Hct MCV MCH MCHC RDW Plt Count MPV Anticoagulation Therapy Puncture Site Patient Temperature ABG pH ABG pCO2 ABG pO2 ABG HCO3 ABG O2 Sat (Measured) ABG O2 Content ABG Base Excess Adrian Test Patient On Oxygen O2 Delivery Device Oxygen Flow Rate Vent Mode Vent Rate Mechanical Rate PEEP Pressure Support Vent Sodium Potassium Chloride Carbon Dioxide Anion Gap BUN Creatinine Est GFR (CKD-EPI)AfAm Est GFR (CKD-EPI)NonAf POC Glucometer 147 133 116 Random Glucose Calcium Phosphorus Magnesium Total Bilirubin AST ALT Alkaline Phosphatase Total Protein Albumin 10/02/19 10/02/19 10/02/19 05:20 05:30 05:30 WBC 3.3 L RBC 3.78 L Hgb 9.6 L Hct 30.3 L MCV 80.2 MCH 25.5 L MCHC 31.8 L RDW 17.9 H Plt Count 371 MPV 7.9 Anticoagulation Therapy No Result Required. Puncture Site Right radial Patient Temperature No Result Required. ABG pH 7.463 H ABG pCO2 44.40 ABG pO2 62.8 L ABG HCO3 31.1 H ABG O2 Sat (Measured) 93.1 L ABG O2 Content No Result Required. ABG Base Excess 6.6 H Adrian Test Positive Patient On Oxygen Yes O2 Delivery Device Vent Oxygen Flow Rate 60% Vent Mode A/c Vent Rate 18 Mechanical Rate Vent PEEP 5.0 Pressure Support Vent 390 Sodium 139 Potassium 4.0 Chloride 101 Carbon Dioxide 32 Anion Gap 7 L BUN 22.8 H Creatinine 1.0 Est GFR (CKD-EPI)AfAm 100.55 Est GFR (CKD-EPI)NonAf 86.76 POC Glucometer Random Glucose 133 H Calcium 8.0 L Phosphorus 4.0 Magnesium 1.7 L Total Bilirubin 0.4 AST 14 L ALT 11 L Alkaline Phosphatase 136 H Total Protein 4.8 L Albumin 1.9 L 10/02/19 10:19 WBC RBC Hgb Hct MCV MCH MCHC RDW Plt Count MPV Anticoagulation Therapy Puncture Site Patient Temperature ABG pH ABG pCO2 ABG pO2 ABG HCO3 ABG O2 Sat (Measured) ABG O2 Content ABG Base Excess Adrian Test Patient On Oxygen O2 Delivery Device Oxygen Flow Rate Vent Mode Vent Rate Mechanical Rate PEEP Pressure Support Vent Sodium Potassium Chloride Carbon Dioxide Anion Gap BUN Creatinine Est GFR (CKD-EPI)AfAm Est GFR (CKD-EPI)NonAf POC Glucometer 150 Random Glucose Calcium Phosphorus Magnesium Total Bilirubin AST ALT Alkaline Phosphatase Total Protein Albumin Active Medications Generic Name Dose Route Start Last Admin Trade Name Freq PRN Reason Stop Dose Admin Acetylcysteine 200 mg 09/30/19 12:00 10/02/19 07:30 Mucomyst 20 Oral / Inh Use Only* NEB 200 mg RQID ELISSA Administration Albuterol Sulfate 1 amp 09/30/19 12:00 10/02/19 07:30 Ventolin 0.083% Nebulizer Soln - NEB 1 amp RQID ELISSA Administration Amino Acids 30 ml 09/29/19 17:30 10/02/19 09:03 Prosource No Carb Liquid Pkt PO 30 ml BID@0800,1730 ELISSA Administration Apixaban 5 mg 09/27/19 22:00 10/02/19 09:04 Eliquis - PEG 5 mg BID ELISSA Administration Chlorhexidine Gluconate 1 applic 09/27/19 22:00 10/01/19 21:02 Hibiclens For Decolonization - TP 1 applic HS ELISSA Administration Diltiazem HCl 60 mg 09/29/19 12:00 10/02/19 05:57 Cardizem - PO 60 mg Q6HPO ELISSA Administration Furosemide 40 mg 10/01/19 14:00 10/02/19 05:57 Lasix Injection - IVPUSH 40 mg BIDLASIX ELISSA Administration Fentanyl 500 mcg in 100 mls @ 27.216 mls/hr 09/27/19 09:00 10/02/19 09:04 Sublimaze Ivpb IVPB Not Given TITR ELISSA Protocol 1 MCG/KG/HR Midazolam HCl 100 mg/ Sodium 100 mls @ 1 mls/hr 09/27/19 09:00 10/02/19 09:05 Chloride IVPB Not Given TITR ELISSA Protocol 1 MG/HR Norepinephrine Bitartrate 16, 500 mls @ 9.375 mls/hr 09/27/19 09:45 10/02/19 08:20 000 mcg/ Sodium Chloride IV 3 mcg/min TITR ELISSA 5.625 mls/hr Titration Protocol 5 MCG/MIN Propofol 1,000,000 mcg in 100 mls @ 8.165 mls/hr 09/27/19 13:00 10/02/19 08:20 Diprivan - IVPB 30 mcg/kg/min TITR ELISSA 24.494 mls/hr Administration Protocol 10 MCG/KG/MIN Meropenem 1 gm/ Dextrose 100 mls @ 200 mls/hr 09/28/19 12:00 10/02/19 09:03 IVPB 200 mls/hr Q8H-IV ELISSA Administration Vancomycin HCl 1,000 mg in 250 mls @ 166.667 mls/hr 10/01/19 11:30 10/01/19 23:02 Vancomycin (Pre-Docked) IVPB 166.667 mls/hr Q12H ELISSA Administration Protocol Magnesium Sulfate 2 gm 10/02/19 10:37 Magnesium Sulfate IVPB 10/02/19 10:38 ONCE ONE Metoprolol Tartrate 50 mg 09/27/19 22:00 10/02/19 09:04 Lopressor - GT 50 mg BID ELISSA Administration Mupirocin 1 applic 09/27/19 13:30 10/02/19 09:04 Bactroban Ointment (For Decolonization) - NS 10/02/19 13:29 1 applic BID ELISSA Administration Pantoprazole Sodium 40 mg 09/29/19 11:00 10/02/19 09:03 Protonix Iv IVPUSH 40 mg DAILY ELISSA Administration ASSESSMENT/PLAN: 53 yo m w/ dDHF, afib/flutter on eliquis, sarcoidosis, guillan barre, morbid obesity, tracheostomy 2/2 respiratory failure s/p reversal comes into the ed c/o worsening SOB for the past 1 day. #Neuro -intubated and sedated on propofol/ versed #Cardio -h/o afib/aflutter on eliquis -Patient with congestion on CXR and SOB possibly 2/2 CHF exacerbation r/o COVID pneumonia -Patient hypotensive s/p intubation -on norepinephrine for BP support, titrate to maintain a MAP >=65 -pt on Cardizem 60 Q6H and metoprolol 50 BID to maintain HR <110 -Lasix 40mg BID IV -monitor I&O -CVP monitoring #Pulmonary -acute hypoxic hypercapnic respiratory failure likely 2/2 CHF exacerbation r/o COVID pneumonia. -maintain saturation >88% -Patient saturating well on current vent settings, decreased FIO2 to 60%. Will continue to wean vent. #ID -COVID PCR Negative. -presumptive MRSA in the sputum -ID consulted -on Meropenem day 4 #Prophy -Protonix IV -Eliquis 5mg BID #FEN -holding fluids for now -monitor lytes -on tube feeds promote Lines -Right IJ CVC insterted 09/26 -ortiz inserted 09/26 -NGT inserted 09/26 -intubated 09/26 Dispo: -admit ICU Visit type - Emergency Visit Emergency Visit: Yes ED Registration Date: 09/27/19 Care time: The patient presented to the Emergency Department on the above date and was hospitalized for further evaluation of their emergent condition. - New Patient This patient is new to me today: No - Critical Care Critical Care patient: Yes Total Critical Care Time (in minutes): 40 Critical Care Statement: The care of this patient involved high complexity decision making to prevent further life threatening deterioration of the patient's condition and/or to evaluate & treat vital organ system(s) failure or risk of failure. - Discharge Referral Referred to [facility] No ATTENDING PHYSICIAN STATEMENT I saw and evaluated the patient. I reviewed the resident's note and discussed the case with the resident. I agree with the resident's findings and plan as documented. SUBJECTIVE: OBJECTIVE: ASSESSMENT AND PLAN:
--- NOTE | 2019-10-02 11:04 | PN ---
Teaching Attending Note Name of Resident: Nain Mcduffie ATTENDING PHYSICIAN STATEMENT I saw and evaluated the patient. I reviewed the resident's note and discussed the case with the resident. I agree with the resident's findings and plan as documented. SUBJECTIVE: Pt seen and examined in the ICU. Remains intubated, sedated on low dose levophed gtt. No fevers recorded. Good urine output. CXR more congested today. Sputum growing confirmed MRSA and ESBL E coli. OBJECTIVE: Vital Signs Period Temp Pulse Resp BP Sys/Kenyon Pulse Ox Last 24 Hr 96.3 F-97.6 F 69-94 18-24 82-103/56-72 91-94 Intake & Output 09/29/19 09/30/19 10/01/19 10/02/19 23:59 23:59 23:59 23:59 Intake Total 1666.8 1955.6 2572 1466 Output Total 3020 2300 4100 700 Balance -1353.2 -344.4 -1528 766 Weight 123.2 kg 54.114 kg 53.206 kg Gen: intubated, sedated Heart: RRR Lung: scattered rhonchi Abd: soft, nontender Ext: +edema CXR: RLL atelectasis vs infiltrate CBC, BMP 10/02/19 05:30 10/02/19 05:30 Active Medications Acetylcysteine (Mucomyst 20 Oral / Inh Use Only*) 200 mg NEB RQID [facility] Last Admin: 10/02/19 07:30 Dose: 200 mg Documented by: Albuterol Sulfate (Ventolin 0.083% Nebulizer Soln -) 1 amp NEB RQID [facility] Last Admin: 10/02/19 07:30 Dose: 1 amp Documented by: Amino Acids (Prosource No Carb Liquid Pkt) 30 ml PO BID@0800,1730 [facility] Last Admin: 10/02/19 09:03 Dose: 30 ml Documented by: Apixaban (Eliquis -) 5 mg PEG BID [facility] Last Admin: 10/02/19 09:04 Dose: 5 mg Documented by: Chlorhexidine Gluconate (Hibiclens For Decolonization -) 1 applic TP HS [facility] Last Admin: 10/01/19 21:02 Dose: 1 applic Documented by: Diltiazem HCl (Cardizem -) 60 mg PO Q6HPO [facility] Last Admin: 10/02/19 05:57 Dose: 60 mg Documented by: Furosemide (Lasix Injection -) 40 mg IVPUSH BIDLASIX ELISSA Last Admin: 10/02/19 05:57 Dose: 40 mg Documented by: Fentanyl (Sublimaze Ivpb) 500 mcg in 100 mls @ 27.216 mls/hr IVPB TITR ELISSA; Protocol Last Admin: 10/02/19 09:04 Dose: Not Given Documented by: Midazolam HCl 100 mg/ Sodium (Chloride) 100 mls @ 1 mls/hr IVPB TITR ELISSA; Protocol Last Admin: 10/02/19 09:05 Dose: Not Given Documented by: Norepinephrine Bitartrate 16, (000 mcg/ Sodium Chloride) 500 mls @ 9.375 mls/hr IV TITR [facility]; Protocol Last Titration: 10/02/19 08:20 Dose: 3 mcg/min, 5.625 mls/hr Documented by: Propofol (Diprivan -) 1,000,000 mcg in 100 mls @ 8.165 mls/hr IVPB TITR [facility]; Protocol Last Admin: 10/02/19 08:20 Dose: 30 mcg/kg/min, 24.494 mls/hr Documented by: Meropenem 1 gm/ Dextrose 100 mls @ 200 mls/hr IVPB Q8H-IV ELISSA Last Admin: 10/02/19 09:03 Dose: 200 mls/hr Documented by: Vancomycin HCl (Vancomycin (Pre-Docked)) 1,000 mg in 250 mls @ 166.667 mls/hr IVPB Q12H ELISSA; Protocol Last Admin: 10/01/19 23:02 Dose: 166.667 mls/hr Documented by: Metoprolol Tartrate (Lopressor -) 50 mg GT BID [facility] Last Admin: 10/02/19 09:04 Dose: 50 mg Documented by: Mupirocin (Bactroban Ointment (For Decolonization) -) 1 applic NS BID [facility] Stop: 10/02/19 13:29 Last Admin: 10/02/19 09:04 Dose: 1 applic Documented by: Pantoprazole Sodium (Protonix Iv) 40 mg IVPUSH DAILY [facility] Last Admin: 10/02/19 09:03 Dose: 40 mg Documented by: ASSESSMENT AND PLAN: Acute Hypoxic and Hypercapneic Respiratory Failure UTI Pneumonia ARDS Septic Shock Acute on Chronic Diastolic Heart Failure Volume Overload Atrial Fibrillation/Flutter with RVR h/o COVID19 Sarcoidosis Morbid Obesity EMMY/OHS - continue antibiotics - titrate pressors to maintain MAP >65 - rate control - continue anticoagulation - lasix today BID - monitor urine output, creatinine - continue volume assist control - enteral feeds - DVT/GI prophylaxis - continue ICU monitoring critical care time spent in reviewing chart, evaluating patient and formulating plan 35 min
[2019-10-02] MEDS: VANCOMYCIN 1 GRAM (PRE-DOCKED) 1,000 MG/250 ML BAG IVPB SCH ×2 (11:15→23:03)
--- NOTE | 2019-10-02 14:46 | PN ---
Progress Note, Physician History of Present Illness: SEDATED ON VENTILATOR NO ACUTE DISTRESS AFEBRILE HYPOTENSIVE ON PRESSORS LEUKOPENIC BC NO GROWTH URINE C/S (R) ENTEROBACTER SPUTUM ESBL, MRSA - Current Medication List Current Medications: Active Medications Amino Acids (Prosource No Carb Liquid Pkt) 30 ml PO BID@0800,1730 [facility] Last Admin: 10/02/19 09:03 Dose: 30 ml Documented by: Apixaban (Eliquis -) 5 mg PEG BID ELISSA Last Admin: 10/02/19 09:04 Dose: 5 mg Documented by: Chlorhexidine Gluconate (Hibiclens For Decolonization -) 1 applic TP HS [facility] Last Admin: 10/01/19 21:02 Dose: 1 applic Documented by: Diltiazem HCl (Cardizem -) 60 mg PO Q6HPO ELISSA Last Admin: 10/02/19 11:15 Dose: 60 mg Documented by: Furosemide (Lasix Injection -) 40 mg IVPUSH BIDLASIX ELISSA Last Admin: 10/02/19 05:57 Dose: 40 mg Documented by: Fentanyl (Sublimaze Ivpb) 500 mcg in 100 mls @ 27.216 mls/hr IVPB TITR ELISSA; Protocol Last Admin: 10/02/19 09:04 Dose: Not Given Documented by: Midazolam HCl 100 mg/ Sodium (Chloride) 100 mls @ 1 mls/hr IVPB TITR ELISSA; Protocol Last Admin: 10/02/19 09:05 Dose: Not Given Documented by: Norepinephrine Bitartrate 16, (000 mcg/ Sodium Chloride) 500 mls @ 9.375 mls/hr IV TITR ELISSA; Protocol Last Titration: 10/02/19 08:20 Dose: 3 mcg/min, 5.625 mls/hr Documented by: Propofol (Diprivan -) 1,000,000 mcg in 100 mls @ 8.165 mls/hr IVPB TITR ELISSA; Protocol Last Admin: 10/02/19 08:20 Dose: 30 mcg/kg/min, 24.494 mls/hr Documented by: Meropenem 1 gm/ Dextrose 100 mls @ 200 mls/hr IVPB Q8H-IV ELISSA Last Admin: 10/02/19 09:03 Dose: 200 mls/hr Documented by: Vancomycin HCl (Vancomycin (Pre-Docked)) 1,000 mg in 250 mls @ 166.667 mls/hr IVPB Q12H ELISSA; Protocol Last Admin: 10/02/19 11:15 Dose: 166.667 mls/hr Documented by: Metoprolol Tartrate (Lopressor -) 50 mg GT BID [facility] Last Admin: 10/02/19 09:04 Dose: 50 mg Documented by: Pantoprazole Sodium (Protonix Iv) 40 mg IVPUSH DAILY [facility] Last Admin: 10/02/19 09:03 Dose: 40 mg Documented by: - Objective Vital Signs: Vital Signs Temperature 97.5 F L 10/02/19 08:00 Pulse Rate 69 10/02/19 11:30 Respiratory Rate 18 10/02/19 11:30 Blood Pressure 84/56 L 10/02/19 08:20 O2 Sat by Pulse Oximetry (%) 95 10/02/19 11:30 Constitutional: Yes: No Distress Cardiovascular: Yes: Regular Rate and Rhythm, S1, S2 Respiratory: Yes: Mechanically Ventilated Gastrointestinal: Yes: Normal Bowel Sounds, Soft. No: Tenderness Edema: Yes Labs: CBC, BMP 10/02/19 05:30 10/02/19 05:30 INR, PTT INR 1.02 (0.83-1.09) 09/27/19 05:20 Assessment/Plan ACUTE RESP FAILURE + SPUTUM MRSA, ESBL PNEUMONIA SEPSIS R/O SEPTIC SHOCK UTI S/P CARDIOPULMONARY ARREST LEUKOPENIA CONTINUE MEROPENEM/VANCOMYCIN VENTILATORY/ HEMODYNAMIC SUPPORT CONTACT PRECAUTIONS
[2019-10-02] MEDS: NOREPINEPHRINE BITARTRATE 16,000 MCG in SODIUM CHLORIDE 484 ML IV SCH (17:21)
[2019-10-02] MEDS: CHLORHEXIDINE GLUCONATE 4% CLEANSER FOR DECOLONIZATION TP SCH (21:03)
[2019-10-02] MEDS ORDERED: PT OWN MED DRAWER 7, Y5N ONE (23:06)
[2019-10-03] MEDS: dilTIAZem HCL 60 MG TABLET PO SCH ×4 (00:03→17:12)
[2019-10-03] MEDS ORDERED: PROPOFOL 1,000,000 MCG/100 ML VIAL ONE (00:05)
[2019-10-03] MEDS: MEROPENEM 1 GM in DEXTROSE 5%-WATER 100 ML IVPB SCH ×3 (01:01→17:12)
[2019-10-03] MEDS: PROPOFOL 1,000,000 MCG/100 ML VIAL IVPB SCH ×5 (01:03→19:29)
[2019-10-03] MEDS ORDERED: DEXTROSE 5%-WATER 100 ML IVPB ONE ×3 (02:17→17:11)
[2019-10-03] MEDS ORDERED: MEROPENEM 1 GM VIAL (RESTRICTED TO ID) IVPB ONE ×3 (02:17→17:10)
[2019-10-03] MEDS: FUROSEMIDE 40 MG/4 ML INJECTABLE VIAL IVPUSH SCH ×2 (04:59→14:36)
[2019-10-03] MEDS ORDERED: MIDAZOLAM IN 0.9 % SOD.CHLORID 1 MG/1 ML PLAST..BAG ONE ×2 (06:26→16:43)
[2019-10-03 06:37] LABS: HEMATOCRIT 30.1 % (35.4-49); HEMOGLOBIN 9.6 GM/dL (11.7-16.9); MCH 25.5 pg (25.7-33.7); MCHC 31.9 g/dl (32.0-35.9); MEAN CELL VOLUME 79.8 fl (80-96); MEAN PLT VOLUME 7.6 fl (7.5-11.1); PLATELET COUNT 351 K/MM3 (134-434); RBC 3.76 M/mm3 (4.00-5.60); RDW 17.7 % (11.9-15.9); WHITE BLOOD COUNT 4.2 K/mm3 (4.0-10.0)
[2019-10-03] MEDS: MIDAZOLAM 100 MG in SODIUM CHLORIDE 100 ML IVPB SCH ×3 (06:51→16:00)
[2019-10-03 07:15] LABS: ALBUMIN 1.9 g/dl (3.4-5.0); BILIRUBIN,TOTAL 0.9 mg/dL (0.2-1); BLOOD UREA NITROGEN 28.8 mg/dL (7-18); CALCIUM 7.9 mg/dL (8.5-10.1); CREATININE 1.1 mg/dL (0.55-1.3); PHOSPHOROUS 3.6 mg/dL (2.5-4.9); POTASSIUM 3.8 mmol/L (3.5-5.1)
[2019-10-03] MEDS ORDERED: KCL 10 MEQ IVPB 10 MEQ/100 ML INFUS.BAG IVPB SCH (08:00)
[2019-10-03] MEDS: AMINO ACIDS/PROTEIN HYDROLYS 30 ML LIQUID.PKT PO SCH ×2 (08:22→17:09)
[2019-10-03] MEDS: FENTANYL NS IVPB 500 MCG/100 ML BAG IVPB SCH ×2 (09:30→13:15)
[2019-10-03] MEDS: APIXABAN 5 MG TABLET PEG SCH ×2 (09:30→21:10)
[2019-10-03] MEDS: METOPROLOL TARTRATE 50 MG TABLET (FP) GT SCH ×2 (09:31→22:27)
[2019-10-03] MEDS: PANTOPRAZOLE SODIUM 40 MG VIAL IVPUSH SCH (09:31)
[2019-10-03] MEDS: VANCOMYCIN 1 GRAM (PRE-DOCKED) 1,000 MG/250 ML BAG IVPB SCH (11:26)
--- NOTE | 2019-10-03 11:50 | PN ---
Progress Note, Physician History of Present Illness: SEDATED ON VENTILATOR NO ACUTE DISTRESS AFEBRILE HYPOTENSIVE ON PRESSORS LEUKOPENIA IMPROVED BC NO GROWTH URINE C/S (R) ENTEROBACTER SPUTUM ESBL, MRSA - Current Medication List Current Medications: Active Medications Amino Acids (Prosource No Carb Liquid Pkt) 30 ml PO BID@0800,1730 [facility] Last Admin: 10/03/19 08:22 Dose: 30 ml Documented by: Apixaban (Eliquis -) 5 mg PEG BID [facility] Last Admin: 10/03/19 09:30 Dose: 5 mg Documented by: Chlorhexidine Gluconate (Hibiclens For Decolonization -) 1 applic TP HS [facility] Last Admin: 10/02/19 21:03 Dose: 1 applic Documented by: Diltiazem HCl (Cardizem -) 60 mg PO Q6HPO [facility] Last Admin: 10/03/19 11:26 Dose: 60 mg Documented by: Furosemide (Lasix Injection -) 40 mg IVPUSH BIDLASIX ELISSA Last Admin: 10/03/19 04:59 Dose: 40 mg Documented by: Fentanyl (Sublimaze Ivpb) 500 mcg in 100 mls @ 27.216 mls/hr IVPB TITR ELISSA; Protocol Last Admin: 10/03/19 09:30 Dose: Not Given Documented by: Midazolam HCl 100 mg/ Sodium (Chloride) 100 mls @ 1 mls/hr IVPB TITR ELISSA; Protocol Last Admin: 10/03/19 09:30 Dose: Not Given Documented by: Norepinephrine Bitartrate 16, (000 mcg/ Sodium Chloride) 500 mls @ 9.375 mls/hr IV TITR ELISSA; Protocol Last Titration: 10/03/19 09:00 Dose: 1 mcg/min, 1.875 mls/hr Documented by: Propofol (Diprivan -) 1,000,000 mcg in 100 mls @ 8.165 mls/hr IVPB TITR ELISSA; Protocol Last Admin: 10/03/19 04:00 Dose: 30 mcg/kg/min, 24.494 mls/hr Documented by: Meropenem 1 gm/ Dextrose 100 mls @ 200 mls/hr IVPB Q8H-IV [facility]ISSA Last Admin: 10/03/19 09:31 Dose: 200 mls/hr Documented by: Vancomycin HCl (Vancomycin (Pre-Docked)) 1,000 mg in 250 mls @ 166.667 mls/hr IVPB Q12H ELISSA; Protocol Last Admin: 10/03/19 11:26 Dose: 166.667 mls/hr Documented by: Metoprolol Tartrate (Lopressor -) 50 mg GT BID [facility] Last Admin: 10/03/19 09:31 Dose: 50 mg Documented by: Pantoprazole Sodium (Protonix Iv) 40 mg IVPUSH DAILY [facility] Last Admin: 10/03/19 09:31 Dose: 40 mg Documented by: - Objective Vital Signs: Vital Signs Temperature 97.5 F L 10/03/19 10:00 Pulse Rate 67 10/03/19 10:00 Respiratory Rate 24 H 10/03/19 10:00 Blood Pressure 102/67 10/03/19 10:00 O2 Sat by Pulse Oximetry (%) 96 10/03/19 10:00 Constitutional: Yes: No Distress, Obese Eyes: Yes: Conjunctiva Clear Cardiovascular: Yes: Regular Rate and Rhythm, S1, S2 Respiratory: Yes: CTA Bilaterally Gastrointestinal: Yes: Normal Bowel Sounds, Soft, Abdomen, Obese Edema: Yes Labs: CBC, BMP 10/03/19 05:40 10/03/19 05:40 INR, PTT INR 1.02 (0.83-1.09) 09/27/19 05:20 Assessment/Plan ACUTE RESP FAILURE + SPUTUM MRSA, ESBL PNEUMONIA SEPSIS R/O SEPTIC SHOCK UTI S/P CARDIOPULMONARY ARREST LEUKOPENIA CONTINUE MEROPENEM/VANCOMYCIN VANCOMYCIN LEVEL NOTED WILL DOSE Q24H VENTILATORY/ HEMODYNAMIC SUPPORT CONTACT PRECAUTIONS
--- NOTE | 2019-10-03 12:00 | PN ---
Teaching Attending Note Name of Resident: David Toribio ATTENDING PHYSICIAN STATEMENT I saw and evaluated the patient. I reviewed the resident's note and discussed the case with the resident. I agree with the resident's findings and plan as documented. SUBJECTIVE: Patient seen and examined in the ICU. Remains intubated and sedated on 2 mcq NE drip for hemodynamic support. AC Mode of vent. PPlat : 30 OBJECTIVE: Intake & Output 09/30/19 10/01/19 10/02/19 10/03/19 23:59 23:59 23:59 23:59 Intake Total 1955.6 2572 3123.1 1424 Output Total 2300 4100 3500 700 Balance -344.4 -1528 -376.9 724 Weight 119 lb 4.8 oz 117 lb 4.8 oz 117 lb 11.2 oz Last Vital Signs Temp Pulse Resp BP Pulse Ox 97.5 F L 67 24 H 102/67 95 10/03/19 10:00 10/03/19 10:00 10/03/19 11:51 10/03/19 10:00 10/03/19 11:51 Active Medications Amino Acids (Prosource No Carb Liquid Pkt) 30 ml PO BID@0800,1730 [facility] Last Admin: 10/03/19 08:22 Dose: 30 ml Documented by: Apixaban (Eliquis -) 5 mg PEG BID [facility] Last Admin: 10/03/19 09:30 Dose: 5 mg Documented by: Chlorhexidine Gluconate (Hibiclens For Decolonization -) 1 applic TP HS [facility] Last Admin: 10/02/19 21:03 Dose: 1 applic Documented by: Diltiazem HCl (Cardizem -) 60 mg PO Q6HPO [facility] Last Admin: 10/03/19 11:26 Dose: 60 mg Documented by: Furosemide (Lasix Injection -) 40 mg IVPUSH BIDLASIX [facility] Last Admin: 10/03/19 04:59 Dose: 40 mg Documented by: Fentanyl (Sublimaze Ivpb) 500 mcg in 100 mls @ 27.216 mls/hr IVPB TITR [facility]; Protocol Last Admin: 10/03/19 09:30 Dose: Not Given Documented by: Midazolam HCl 100 mg/ Sodium (Chloride) 100 mls @ 1 mls/hr IVPB TITR [facility]; Protocol Last Admin: 10/03/19 09:30 Dose: Not Given Documented by: Norepinephrine Bitartrate 16, (000 mcg/ Sodium Chloride) 500 mls @ 9.375 mls/hr IV TITR ELISSA; Protocol Last Titration: 10/03/19 09:00 Dose: 1 mcg/min, 1.875 mls/hr Documented by: Propofol (Diprivan -) 1,000,000 mcg in 100 mls @ 8.165 mls/hr IVPB TITR [facility]ISSA; Protocol Last Admin: 10/03/19 04:00 Dose: 30 mcg/kg/min, 24.494 mls/hr Documented by: Meropenem 1 gm/ Dextrose 100 mls @ 200 mls/hr IVPB Q8H-IV [facility] Last Admin: 10/03/19 09:31 Dose: 200 mls/hr Documented by: Vancomycin HCl (Vancomycin (Pre-Docked)) 1,000 mg in 250 mls @ 200 mls/hr IVPB Q24H [facility]; Protocol Metoprolol Tartrate (Lopressor -) 50 mg GT BID [facility] Last Admin: 10/03/19 09:31 Dose: 50 mg Documented by: Pantoprazole Sodium (Protonix Iv) 40 mg IVPUSH DAILY [facility] Last Admin: 10/03/19 09:31 Dose: 40 mg Documented by: Gen: intubated, sedated Heart: RRR Lung: scattered rhonchi Abd: soft, nontender Ext: +edema CXR: RLL atelectasis vs infiltrate Laboratory Results - last 24 hr 10/02/19 10/02/19 10/02/19 16:14 20:45 21:11 WBC RBC Hgb Hct MCV MCH MCHC RDW Plt Count MPV Sodium Potassium Chloride Carbon Dioxide Anion Gap BUN Creatinine Est GFR (CKD-EPI)AfAm Est GFR (CKD-EPI)NonAf POC Glucometer 159 200 Random Glucose Calcium Phosphorus Magnesium Total Bilirubin AST ALT Alkaline Phosphatase Total Protein Albumin Vancomycin Pre-Dose 19.1 H 10/03/19 10/03/19 10/03/19 05:40 05:40 06:31 WBC 4.2 RBC 3.76 L Hgb 9.6 L Hct 30.1 L MCV 79.8 L MCH 25.5 L MCHC 31.9 L RDW 17.7 H Plt Count 351 MPV 7.6 Sodium 137 Potassium 3.8 Chloride 100 Carbon Dioxide 31 Anion Gap 6 L BUN 28.8 H Creatinine 1.1 Est GFR (CKD-EPI)AfAm 89.61 Est GFR (CKD-EPI)NonAf 77.32 POC Glucometer 210 Random Glucose 179 H Calcium 7.9 L Phosphorus 3.6 Magnesium 2.0 Total Bilirubin 0.9 AST 14 L ALT 12 L Alkaline Phosphatase 156 H Total Protein 5.0 L Albumin 1.9 L Vancomycin Pre-Dose 10/03/19 10:11 WBC RBC Hgb Hct MCV MCH MCHC RDW Plt Count MPV Sodium Potassium Chloride Carbon Dioxide Anion Gap BUN Creatinine Est GFR (CKD-EPI)AfAm Est GFR (CKD-EPI)NonAf POC Glucometer 185 Random Glucose Calcium Phosphorus Magnesium Total Bilirubin AST ALT Alkaline Phosphatase Total Protein Albumin Vancomycin Pre-Dose ASSESSMENT AND PLAN: Acute Hypoxic and Hypercapneic Respiratory Failure UTI Pneumonia ARDS Septic Shock Acute on Chronic Diastolic Heart Failure Volume Overload Atrial Fibrillation/Flutter with RVR h/o COVID19 Sarcoidosis Morbid Obesity EMMY/OHS - ABX coverage - Pressors to maintain MAP >65 - rate control - continue anticoagulation - Diuresis as tolerated - monitor urine output, creatinine - continue volume assist control - enteral feeds - DVT/GI prophylaxis - continue ICU monitoring Dr Maya Critical care time spent in reviewing chart, evaluating patient and formulating plan 35 min
[2019-10-03] MEDS: NOREPINEPHRINE BITARTRATE 16,000 MCG in SODIUM CHLORIDE 484 ML IV SCH (13:14)
--- NOTE | 2019-10-03 14:13 | PN ---
Physical Exam: SUBJECTIVE: Patient seen and examined at bedside. There were no acute events overnight. This am he remains intubated, sedated and unable to participate in medical interview. OBJECTIVE: Vital Signs Period Temp Pulse Resp BP Sys/Kenyon Pulse Ox Last 24 Hr 97.5 F-98.2 F 66-97 24-84 84-130/57-90 95-97 GENERAL: intubated, sedated HEAD: Normal with no signs of trauma. LUNGS: rhonchi b/l HEART: Sinus tachy , normal S1 and S2 without murmur, rub or gallop. ABDOMEN: Soft, nontender, not distended, normoactive bowel sounds, LOWER EXTREMITIES: 2+ pulses, warm, well-perfused. No calf tenderness. No peripheral edema. Laboratory Results - last 24 hr 10/02/19 10/02/19 10/02/19 16:14 20:45 21:11 WBC RBC Hgb Hct MCV MCH MCHC RDW Plt Count MPV Sodium Potassium Chloride Carbon Dioxide Anion Gap BUN Creatinine Est GFR (CKD-EPI)AfAm Est GFR (CKD-EPI)NonAf POC Glucometer 159 200 Random Glucose Calcium Phosphorus Magnesium Total Bilirubin AST ALT Alkaline Phosphatase Total Protein Albumin Vancomycin Pre-Dose 19.1 H 10/03/19 10/03/19 10/03/19 05:40 05:40 06:31 WBC 4.2 RBC 3.76 L Hgb 9.6 L Hct 30.1 L MCV 79.8 L MCH 25.5 L MCHC 31.9 L RDW 17.7 H Plt Count 351 MPV 7.6 Sodium 137 Potassium 3.8 Chloride 100 Carbon Dioxide 31 Anion Gap 6 L BUN 28.8 H Creatinine 1.1 Est GFR (CKD-EPI)AfAm 89.61 Est GFR (CKD-EPI)NonAf 77.32 POC Glucometer 210 Random Glucose 179 H Calcium 7.9 L Phosphorus 3.6 Magnesium 2.0 Total Bilirubin 0.9 AST 14 L ALT 12 L Alkaline Phosphatase 156 H Total Protein 5.0 L Albumin 1.9 L Vancomycin Pre-Dose 10/03/19 10:11 WBC RBC Hgb Hct MCV MCH MCHC RDW Plt Count MPV Sodium Potassium Chloride Carbon Dioxide Anion Gap BUN Creatinine Est GFR (CKD-EPI)AfAm Est GFR (CKD-EPI)NonAf POC Glucometer 185 Random Glucose Calcium Phosphorus Magnesium Total Bilirubin AST ALT Alkaline Phosphatase Total Protein Albumin Vancomycin Pre-Dose Active Medications Generic Name Dose Route Start Last Admin Trade Name Brandi PRN Reason Stop Dose Admin Amino Acids 30 ml 09/29/19 17:30 10/03/19 08:22 Prosource No Carb Liquid Pkt PO 30 ml BID@0800,1730 ELISSA Administration Apixaban 5 mg 09/27/19 22:00 10/03/19 09:30 Eliquis - PEG 5 mg BID ELISSA Administration Chlorhexidine Gluconate 1 applic 09/27/19 22:00 10/02/19 21:03 Hibiclens For Decolonization - TP 1 applic HS ELISSA Administration Diltiazem HCl 60 mg 09/29/19 12:00 10/03/19 11:26 Cardizem - PO 60 mg Q6HPO ELISSA Administration Furosemide 40 mg 10/01/19 14:00 10/03/19 04:59 Lasix Injection - IVPUSH 40 mg BIDLASIX ELISSA Administration Fentanyl 500 mcg in 100 mls @ 27.216 mls/hr 09/27/19 09:00 10/03/19 13:15 Sublimaze Ivpb IVPB 0.37 mcg/kg/hr TITR ELISSA 10.07 mls/hr Administration Protocol 1 MCG/KG/HR Midazolam HCl 100 mg/ Sodium 100 mls @ 1 mls/hr 09/27/19 09:00 10/03/19 09:30 Chloride IVPB Not Given TITR ELISSA Protocol 1 MG/HR Norepinephrine Bitartrate 16, 500 mls @ 9.375 mls/hr 09/27/19 09:45 10/03/19 13:14 000 mcg/ Sodium Chloride IV Not Given TITR ELISSA Protocol 5 MCG/MIN Propofol 1,000,000 mcg in 100 mls @ 8.165 mls/hr 09/27/19 13:00 10/03/19 10:00 Diprivan - IVPB 30 mcg/kg/min TITR ELISSA 24.494 mls/hr Administration Protocol 10 MCG/KG/MIN Meropenem 1 gm/ Dextrose 100 mls @ 200 mls/hr 09/28/19 12:00 10/03/19 09:31 IVPB 200 mls/hr Q8H-IV ELISSA Administration Vancomycin HCl 1,000 mg in 250 mls @ 200 mls/hr 10/04/19 11:00 Vancomycin (Pre-Docked) IVPB Q24H ELISSA Protocol Metoprolol Tartrate 50 mg 09/27/19 22:00 10/03/19 09:31 Lopressor - GT 50 mg BID ELISSA Administration Pantoprazole Sodium 40 mg 09/29/19 11:00 10/03/19 09:31 Protonix Iv IVPUSH 40 mg DAILY ELISSA Administration ASSESSMENT/PLAN: 53 y/o male PMH dDHF, afib/flutter on eliquis, sarcoidosis, guillan barre, morbid obesity, tracheostomy 2/2 respiratory failure s/p reversal comes into the ed c/o worsening SOB and admitted for acute hypoxic hypercapnic respiratory. #Neuro Propofol 50, versed 10, fentanyl 10 #CVS afib/aflutter on eliquis, dCHF Levophed 2, maintain a MAP >=65 Cardizam 60 Q6H and metoprolol 50 BID to maintain HR <110 #Pulmonary Acute hypoxic hypercapnic respiratory failure, PNA, ARDS CXR: b/l lower lobe consolidation and left pleural effusion Maintain 02 saturation >88% Lasix 40 mg IV BID #ID H/o CoVid-19 and current serology NEG Mucomyst with albuterol nebulizer Leukopenia- cont to monitor Sputum Cx pending H/O ESBL UA positive UCx: Enterbacter >100,000 Sputum presumptive MRSA Contact precautions Vanco/Meropenem day 5 # Renal Cr 1.1 UO 3,500 # TLD RIGHT IJ 09/26 ETT 09/26 Andrews 09/26 #Ppx Protonix 40 mg IV qd Eliquis 5mg BID #FEN Hold fluids for now Cont. to monitor electrolytes Tube feeds- promote with no free water #Disposition ICU Full code Visit type - Emergency Visit Emergency Visit: No - New Patient This patient is new to me today: No - Critical Care Critical Care patient: Yes Total Critical Care Time (in minutes): 36 Critical Care Statement: The care of this patient involved high complexity decision making to prevent further life threatening deterioration of the patient's condition and/or to evaluate & treat vital organ system(s) failure or risk of failure. ATTENDING PHYSICIAN STATEMENT I saw and evaluated the patient. I reviewed the resident's note and discussed the case with the resident. I agree with the resident's findings and plan as documented. SUBJECTIVE: OBJECTIVE: ASSESSMENT AND PLAN:
[2019-10-03] MEDS: POLYETHYLENE GLYCOL 3350 119 GM BTL NGT SCH (21:09)
[2019-10-03] MEDS: CHLORHEXIDINE GLUCONATE 4% CLEANSER FOR DECOLONIZATION TP SCH (21:10)
[2019-10-04] MEDS: dilTIAZem HCL 60 MG TABLET PO SCH ×5 (00:02→23:23)
[2019-10-04] MEDS: MIDAZOLAM 100 MG in SODIUM CHLORIDE 100 ML IVPB SCH ×3 (00:02→13:43)
[2019-10-04] MEDS ORDERED: MEROPENEM 1 GM VIAL (RESTRICTED TO ID) IVPB ONE ×3 (01:03→16:48)
[2019-10-04] MEDS ORDERED: DEXTROSE 5%-WATER 100 ML IVPB ONE ×3 (01:03→16:49)
[2019-10-04] MEDS: MEROPENEM 1 GM in DEXTROSE 5%-WATER 100 ML IVPB SCH ×3 (01:16→17:12)
[2019-10-04] MEDS ORDERED: MIDAZOLAM IN 0.9 % SOD.CHLORID 1 MG/1 ML PLAST..BAG ONE ×2 (03:30→13:40)
[2019-10-04 05:56] LABS: ARTERIAL BLD GAS O2 SATURATION 94.1 mmHg (95-98); ARTERIAL BLOOD GAS BASE EXCESS 4.2 mmol/L (-2-2); ARTERIAL BLOOD GAS PO2 62.5 mmHg (80-100); ARTERIAL BLOOD GAS pH 7.517 (7.350-7.450)
[2019-10-04 05:58] LABS: ALLENS TEST POSITIVE
[2019-10-04 05:59] LABS: VENT MODE A/C; VENT RATE 24
[2019-10-04] MEDS: FUROSEMIDE 40 MG/4 ML INJECTABLE VIAL IVPUSH SCH ×2 (06:01→15:18)
[2019-10-04 06:29] LABS: HEMATOCRIT 31.9 % (35.4-49); HEMOGLOBIN 10.1 GM/dL (11.7-16.9); MCH 25.2 pg (25.7-33.7); MCHC 31.6 g/dl (32.0-35.9); MEAN CELL VOLUME 79.7 fl (80-96); MEAN PLT VOLUME 7.8 fl (7.5-11.1); PLATELET COUNT 409 K/MM3 (134-434); RDW 17.7 % (11.9-15.9); WHITE BLOOD COUNT 5.3 K/mm3 (4.0-10.0)
[2019-10-04 06:55] LABS: ALBUMIN 1.8 g/dl (3.4-5.0); BILIRUBIN,TOTAL 0.4 mg/dL (0.2-1); BLOOD UREA NITROGEN 31.9 mg/dL (7-18); CALCIUM 7.9 mg/dL (8.5-10.1); MAGNESIUM 1.8 mg/dL (1.8-2.4); PHOSPHOROUS 3.2 mg/dL (2.5-4.9); POTASSIUM 3.7 mmol/L (3.5-5.1)
--- NOTE | 2019-10-04 08:45 | PN ---
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
[2019-10-04] MEDS: PROPOFOL 1,000,000 MCG/100 ML VIAL IVPB SCH ×4 (09:52→22:00)
[2019-10-04] MEDS ORDERED: FENTANYL IVPB 500 MCG/100 ML BAG IVPB ONE (10:05)
[2019-10-04] MEDS: PANTOPRAZOLE SODIUM 40 MG VIAL IVPUSH SCH (10:08)
[2019-10-04] MEDS: AMINO ACIDS/PROTEIN HYDROLYS 30 ML LIQUID.PKT PO SCH ×2 (10:08→17:13)
[2019-10-04] MEDS: FENTANYL NS IVPB 500 MCG/100 ML BAG IVPB SCH ×2 (10:10→22:00)
[2019-10-04] MEDS: APIXABAN 5 MG TABLET PEG SCH ×2 (10:12→21:10)
[2019-10-04] MEDS: METOPROLOL TARTRATE 50 MG TABLET (FP) GT SCH ×2 (10:12→21:09)
[2019-10-04] MEDS: VANCOMYCIN 1 GRAM (PRE-DOCKED) 1,000 MG/250 ML BAG IVPB SCH (10:13)
--- NOTE | 2019-10-04 11:37 | PN ---
Progress Note (short form) - Note Progress Note: PULM/CCM Patient seen and examined in the ICU. Remains intubated and sedated on low dose Levo. AC Mode of vent. PPlat : 30 --> 20 Active Medications Amino Acids (Prosource No Carb Liquid Pkt) 30 ml PO BID@0800,1730 [facility] Last Admin: 10/04/19 10:08 Dose: 30 ml Documented by: Apixaban (Eliquis -) 5 mg PEG BID ELISSA Last Admin: 10/04/19 10:12 Dose: 5 mg Documented by: Chlorhexidine Gluconate (Hibiclens For Decolonization -) 1 applic TP HS [facility] Last Admin: 10/03/19 21:10 Dose: 1 applic Documented by: Diltiazem HCl (Cardizem -) 60 mg PO Q6HPO [facility] Last Admin: 10/04/19 06:01 Dose: 60 mg Documented by: Furosemide (Lasix Injection -) 40 mg IVPUSH BIDLASIX [facility] Last Admin: 10/04/19 06:01 Dose: 40 mg Documented by: Fentanyl (Sublimaze Ivpb) 500 mcg in 100 mls @ 27.216 mls/hr IVPB TITR ELISSA; Protocol Last Admin: 10/04/19 10:10 Dose: 0.37 mcg/kg/hr, 10.07 mls/hr Documented by: Midazolam HCl 100 mg/ Sodium (Chloride) 100 mls @ 1 mls/hr IVPB TITR ELISSA; Protocol Last Admin: 10/04/19 03:32 Dose: 10 mg/hr, 10 mls/hr Documented by: Norepinephrine Bitartrate 16, (000 mcg/ Sodium Chloride) 500 mls @ 9.375 mls/hr IV TITR ELISSA; Protocol Last Admin: 10/03/19 13:14 Dose: Not Given Documented by: Propofol (Diprivan -) 1,000,000 mcg in 100 mls @ 8.165 mls/hr IVPB TITR ELISSA; Protocol Last Admin: 10/04/19 09:52 Dose: 30 mcg/kg/min, 24.494 mls/hr Documented by: Meropenem 1 gm/ Dextrose 100 mls @ 200 mls/hr IVPB Q8H-IV ELISSA Last Admin: 10/04/19 10:12 Dose: 200 mls/hr Documented by: Vancomycin HCl (Vancomycin (Pre-Docked)) 1,000 mg in 250 mls @ 200 mls/hr IVPB Q24H [facility]; Protocol Last Admin: 10/04/19 10:13 Dose: 200 mls/hr Documented by: Metoprolol Tartrate (Lopressor -) 50 mg GT BID [facility] Last Admin: 10/04/19 10:12 Dose: 50 mg Documented by: Pantoprazole Sodium (Protonix Iv) 40 mg IVPUSH DAILY [facility] Last Admin: 10/04/19 10:08 Dose: 40 mg Documented by: Polyethylene Glycol (Miralax (For Daily Use) -) 17 gm NGT HS@2100 [facility] Last Admin: 10/03/19 21:09 Dose: 17 mg Documented by: Vital Signs Period Temp Pulse Resp BP Sys/Kenyon Pulse Ox Last 24 Hr 97.7 F-98.8 F 66-113 24-24 93-108/55-70 91-96 Intake & Output 10/01/19 10/02/19 10/03/19 10/04/19 23:59 23:59 23:59 23:59 Intake Total 2572 3123.1 3502.8 704.1 Output Total 4100 3500 1500 1700 Balance -1528 -376.9 2002.8 -995.9 Weight 54.114 kg 53.206 kg 53.388 kg 120.2 kg Gen: intubated, sedated Heart: RRR Lung: scattered rhonchi Abd: soft, nontender Ext: +edema CBC, BMP 10/04/19 05:20 10/04/19 05:20 Microbiology 09/28/19 16:35 Sputum - Endotrachea Suction/Ventilator Gram Stain - Final 09/28/19 16:35 Sputum - Endotrachea Suction/Ventilator Sputum Culture - F inal Escherichia Coli Esbl [employer]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 09/27/19 05:20 Blood - Peripheral Venous Blood Culture - Final NO GROWTH AFTER 5 DAYS INCUBATION 09/27/19 05:20 Blood - Peripheral Venous Blood Culture - Final NO GROWTH AFTER 5 DAYS INCUBATION 09/28/19 16:35 Urine - Urine Andrews Legionella Antigen - Final 09/28/19 16:35 Urine - Urine Andrews Streptococcus pneumoniae Antigen (M - Final 09/27/19 06:09 Urine - Urine Clean Catch Urine Culture - Final Enterobacter Aerogenes RECENT STUDIES TO NOTE: CXR 10/03: Bi-basilar PNA R > L (My Read) ASSESS: Acute Hypoxic and Hypercapneic Respiratory Failure UTI HAP ARDS Septic Shock Acute on Chronic Diastolic Heart Failure Volume Overload Atrial Fibrillation/Flutter with RVR h/o COVID19 Sarcoidosis Morbid Obesity EMMY/OHS PLAN: - LPV - Sedation for vent sync - continue vancomycin and meropenem - Wean Pressors as tolerated - rate control - continue anticoagulation - Diuresis as tolerated - monitor urine output, creatinine - continue volume assist control - enteral feeds - DVT/GI prophylaxis - continue ICU monitoring [facility] ICU PULM/CCM [id number]
[2019-10-04] MEDS: POLYETHYLENE GLYCOL 3350 119 GM BTL NGT SCH (21:09)
[2019-10-04] MEDS: CHLORHEXIDINE GLUCONATE 4% CLEANSER FOR DECOLONIZATION TP SCH (21:10)
[2019-10-05] MEDS ORDERED: MIDAZOLAM IN 0.9 % SOD.CHLORID 1 MG/1 ML PLAST..BAG ONE ×3 (00:35→20:50)
[2019-10-05] MEDS: MIDAZOLAM 100 MG in SODIUM CHLORIDE 100 ML IVPB SCH ×3 (00:38→21:02)
[2019-10-05] MEDS ORDERED: DEXTROSE 5%-WATER 100 ML IVPB ONE ×4 (01:18→20:48)
[2019-10-05] MEDS ORDERED: MEROPENEM 1 GM VIAL (RESTRICTED TO ID) IVPB ONE ×4 (01:18→20:48)
[2019-10-05] MEDS: MEROPENEM 1 GM in DEXTROSE 5%-WATER 100 ML IVPB SCH ×3 (01:21→17:36)
[2019-10-05] MEDS: FUROSEMIDE 40 MG/4 ML INJECTABLE VIAL IVPUSH SCH ×2 (05:48→16:35)
[2019-10-05] MEDS: dilTIAZem HCL 60 MG TABLET PO SCH ×4 (05:48→21:01)
[2019-10-05] MEDS: NOREPINEPHRINE BITARTRATE IV SCH (06:41)
[2019-10-05] MEDS: SODIUM CHLORIDE IV SCH (06:41)
[2019-10-05] MEDS: PROPOFOL 1,000,000 MCG/100 ML VIAL IVPB SCH ×4 (06:42→21:02)
[2019-10-05 07:02] LABS: HEMOGLOBIN 10.2 GM/dL (11.7-16.9); MCH 25.9 pg (25.7-33.7); MCHC 32.7 g/dl (32.0-35.9); MEAN PLT VOLUME 8.3 fl (7.5-11.1); PLATELET COUNT 420 K/MM3 (134-434); RBC 3.93 M/mm3 (4.00-5.60); RDW 17.9 % (11.9-15.9); WHITE BLOOD COUNT 6.6 K/mm3 (4.0-10.0)
[2019-10-05 07:03] LABS: BLOOD UREA NITROGEN 33.2 mg/dL (7-18); CALCIUM 8.2 mg/dL (8.5-10.1); CREATININE 0.9 mg/dL (0.55-1.3); MAGNESIUM 1.8 mg/dL (1.8-2.4); N-TERMINAL BNP 629.6 pg/ml (5-125); PHOSPHOROUS 3.9 mg/dL (2.5-4.9); POTASSIUM 3.9 mmol/L (3.5-5.1)
--- NOTE | 2019-10-05 08:25 | PN ---
Progress Note (short form) - Note Progress Note: PULM/CCM Patient seen and examined in the ICU. Remains intubated and sedated on low dose Levo. AC Mode of vent. PPlat : 30 --> 20 Vital Signs Period Temp Pulse Resp BP Sys/Kenyon Pulse Ox Last 24 Hr 97.9 F-98.7 F 93-115 18-24 93-109/58-77 93-95 ABG Results ABG pH 7.517 (7.350-7.450) H 10/04/19 05:30 ABG HCO3 27.0 mmol/L (22-27) 10/04/19 05:30 ABG O2 Sat (Measured) 94.1 mmHg (95-98) L 10/04/19 05:30 ABG O2 Content No Result Required. 10/04/19 05:30 ABG Base Excess 4.2 mmol/L (-2-2) H 10/04/19 05:30 Intake & Output 10/02/19 10/03/19 10/04/19 10/05/19 23:59 23:59 23:59 23:59 Intake Total 3123.1 3502.8 2073.9 804.1 Output Total 3500 1500 3200 300 Balance -376.9 2002.8 -1126.1 504.1 Weight 53.206 kg 53.388 kg 120.2 kg 117.3 kg Active Medications Amino Acids (Prosource No Carb Liquid Pkt) 30 ml PO BID@0800,1730 [facility] Last Admin: 10/05/19 09:20 Dose: 30 ml Documented by: Apixaban (Eliquis -) 5 mg PEG BID [facility] Last Admin: 10/05/19 09:21 Dose: 5 mg Documented by: Chlorhexidine Gluconate (Hibiclens For Decolonization -) 1 applic TP HS [facility] Last Admin: 10/04/19 21:10 Dose: 1 applic Documented by: Diltiazem HCl (Cardizem -) 60 mg PO Q6HPO [facility] Last Admin: 10/05/19 05:48 Dose: 60 mg Documented by: Furosemide (Lasix Injection -) 40 mg IVPUSH BIDLASIX [facility] Last Admin: 10/05/19 05:48 Dose: 40 mg Documented by: Fentanyl (Sublimaze Ivpb) 500 mcg in 100 mls @ 27.216 mls/hr IVPB TITR ELISSA; Protocol Last Admin: 10/05/19 09:22 Dose: 0.37 mcg/kg/hr, 10.07 mls/hr Documented by: Midazolam HCl 100 mg/ Sodium (Chloride) 100 mls @ 1 mls/hr IVPB TITR ELISSA; Protocol Last Titration: 10/05/19 08:13 Dose: 8 mg/hr, 8 mls/hr Documented by: Propofol (Diprivan -) 1,000,000 mcg in 100 mls @ 8.165 mls/hr IVPB TITR ELISSA; Protocol Last Titration: 10/05/19 08:13 Dose: 25 mcg/kg/min, 20.412 mls/hr Documented by: Meropenem 1 gm/ Dextrose 100 mls @ 200 mls/hr IVPB Q8H-IV [facility]ISSA Last Admin: 10/05/19 09:20 Dose: 200 mls/hr Documented by: Vancomycin HCl (Vancomycin (Pre-Docked)) 1,000 mg in 250 mls @ 200 mls/hr IVPB Q24H ELISSA; Protocol Last Admin: 10/04/19 10:13 Dose: 200 mls/hr Documented by: Norepinephrine Bitartrate 8, (000 mcg/ Sodium Chloride) 250 mls @ 9.375 mls/hr IV TITR ELISSA; Protocol Last Admin: 10/05/19 06:41 Dose: 5 mcg/min, 9.375 mls/hr Documented by: Metoprolol Tartrate (Lopressor -) 50 mg GT BID ELISSA Last Admin: 10/04/19 21:09 Dose: 50 mg Documented by: Pantoprazole Sodium (Protonix Iv) 40 mg IVPUSH DAILY [facility] Last Admin: 10/05/19 09:20 Dose: 40 mg Documented by: Polyethylene Glycol (Miralax (For Daily Use) -) 17 gm NGT HS@2100 [facility] Last Admin: 10/04/19 21:09 Dose: 17 mg Documented by: Gen: intubated, sedated Heart: RRR Lung: scattered rhonchi Abd: soft, nontender Ext: +edema CBC, BMP 10/05/19 05:20 10/05/19 05:20 Microbiology 09/28/19 16:35 Sputum - Endotrachea Suction/Ventilator Gram Stain - Final 09/28/19 16:35 Sputum - Endotrachea Suction/Ventilator Sputum Culture - Final Escherichia Coli Esbl 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 09/27/19 05:20 Blood - Peripheral Venous Blood Culture - Final NO GROWTH AFTER 5 DAYS INCUBATION 09/27/19 05:20 Blood - Peripheral Venous Blood Culture - Final NO GROWTH AFTER 5 DAYS INCUBATION 09/28/19 16:35 Urine - Urine Andrews Legionella Antigen - Final 09/28/19 16:35 Urine - Urine Andrews Streptococcus pneumoniae Antigen (M - Final 09/27/19 06:09 Urine - Urine Clean Catch Urine Culture - Final Enterobacter Aerogenes ASSESS: Acute Hypoxic and Hypercapneic Respiratory Failure UTI HAP ARDS Septic Shock Acute on Chronic Diastolic Heart Failure Volume Overload Atrial Fibrillation/Flutter with RVR h/o COVID19 Sarcoidosis Morbid Obesity EMMY/OHS PLAN: - LPV - Sedation for vent sync - Taper Midazolam - continue vancomycin and meropenem - Wean Pressors as tolerated, keep MAP >65 - Will d/c metoprolol at this time due to pressor requirement, continue cardizem for AFIB - rate control - continue anticoagulation - Diuresis as tolerated - Strict I and Os - John and replete electrolytes, keep Mg>2, K>4 - enteral feeds - DVT/GI prophylaxis - continue ICU monitoring [facility] ICU PULM/CCM [id number]
[2019-10-05] MEDS ORDERED: FENTANYL IVPB 500 MCG/100 ML BAG IVPB ONE (09:08)
[2019-10-05] MEDS: AMINO ACIDS/PROTEIN HYDROLYS 30 ML LIQUID.PKT PO SCH ×2 (09:20→16:35)
[2019-10-05] MEDS: PANTOPRAZOLE SODIUM 40 MG VIAL IVPUSH SCH (09:20)
[2019-10-05] MEDS: APIXABAN 5 MG TABLET PEG SCH ×2 (09:21→21:01)
[2019-10-05] MEDS: FENTANYL NS IVPB 500 MCG/100 ML BAG IVPB SCH ×3 (09:22→21:02)
--- NOTE | 2019-10-05 09:58 | PN ---
Progress Note (short form) - Note Progress Note: sedated, levophed being tapered off remains intubated Vital Signs Period Temp Pulse Resp BP Sys/[place]yon Pulse Ox Last 24 Hr 97.9 F-98.7 F 93-115 18-24 93-109/58-77 93-95 cor-rrr lungs decreased bs at bases abd soft,nt ext no edema CBC, BMP 10/05/19 05:20 10/05/19 05:20 Microbiology 09/28/19 16:35 Sputum - Endotrachea Suction/Ventilator Gram Stain - Final 09/28/19 16:35 Sputum - Endotrachea Suction/Ventilator Sputum Culture - Final Escherichia Coli Esbl [place] Mr S Aureus 09/27/19 05:20 Blood - Peripheral Venous Blood Culture - Final NO GROWTH AFTER 5 DAYS INCUBATION 09/27/19 05:20 Blood - Peripheral Venous Blood Culture - Final NO GROWTH AFTER 5 DAYS INCUBATION 09/28/19 16:35 Urine - Urine Andrews Legionella Antigen - Final 09/28/19 16:35 Urine - Urine Andrews Streptococcus pneumoniae Antigen (M - Final 09/27/19 06:09 Urine - Urine Clean Catch Urine Culture - Final Enterobacter Aerogenes cxray bilateral infiltrates covid negative a/p resp failure pneumonia sepsis uti leukopenia resolving s/p arrest obesity continue vancomycin and meropenem
[2019-10-05] MEDS: VANCOMYCIN 1 GRAM (PRE-DOCKED) 1,000 MG/250 ML BAG IVPB SCH (11:51)
[2019-10-05 12:25] LABS: ARTERIAL BLD GAS O2 SATURATION 91.1 mmHg (95-98); ARTERIAL BLOOD GAS BASE EXCESS 0.4 mmol/L (-2-2); ARTERIAL BLOOD GAS PO2 62.7 mmHg (80-100); ARTERIAL BLOOD GAS pH 7.364 (7.350-7.450)
[2019-10-05 12:27] LABS: ALLENS TEST POSITIVE; VENT MODE A/C; VENT RATE 18
--- NOTE | 2019-10-05 16:23 | PROC ---
Procedure Note Procedure: [place] placement Indication: hemodynamic monitoring A time-out was completed verifying correct patient, procedure, site, positioning, and special equipment, positioning. Allens test was performed to ensure adequate perfusion. 1% Lidocaine was used to anesthetize the area. The patients right wrist was prepped and draped in sterile fashion. A 20 G Arrow arterial line was introduced into the radial artery. The catheter was threaded over the quide wire and the needle was removed with appropriate pulsatile blood return. The catheter was then sutured in place to the skin and a sterile dressing with biopatch applied. Perfusion tot he extremely distal to the point of catheter insertion was checked and found to be adequate. EBL 2 ml. The patient tolerated the procedure well and there no complications. Sheree BEACH-BC
[2019-10-05] MEDS: POLYETHYLENE GLYCOL 3350 119 GM BTL NGT SCH (21:01)
[2019-10-05] MEDS: CHLORHEXIDINE GLUCONATE 0.12% 15ML CUP MM SCH (21:01)
[2019-10-05] MEDS: INSULIN SLIDING SCALE (NOVOLOG) 1 VIAL SQ SCH (21:08)
[2019-10-05] MEDS: CHLORHEXIDINE GLUCONATE 4% CLEANSER FOR DECOLONIZATION TP SCH (22:07)
[2019-10-06] MEDS: dilTIAZem HCL 60 MG TABLET PO SCH ×5 (00:24→23:56)
[2019-10-06] MEDS: MEROPENEM 1 GM in DEXTROSE 5%-WATER 100 ML IVPB SCH ×3 (01:00→17:10)
[2019-10-06] MEDS: PROPOFOL 1,000,000 MCG/100 ML VIAL IVPB SCH ×4 (02:00→21:15)
[2019-10-06] MEDS ORDERED: MIDAZOLAM IN 0.9 % SOD.CHLORID 1 MG/1 ML PLAST..BAG ONE ×3 (04:05→21:24)
[2019-10-06] MEDS: FUROSEMIDE 40 MG/4 ML INJECTABLE VIAL IVPUSH SCH ×2 (05:31→14:58)
[2019-10-06 05:50] LABS: ARTERIAL BLD GAS O2 SATURATION 92.8 mmHg (95-98); ARTERIAL BLOOD GAS BASE EXCESS 1.8 mmol/L (-2-2); ARTERIAL BLOOD GAS PO2 66.6 mmHg (80-100); ARTERIAL BLOOD GAS pH 7.385 (7.350-7.450)
[2019-10-06 06:11] LABS: ALLENS TEST POSITIVE
[2019-10-06 06:12] LABS: VENT MODE A/C; VENT RATE 18
[2019-10-06] MEDS: NOREPINEPHRINE BITARTRATE IV SCH ×2 (06:14→15:00)
[2019-10-06] MEDS: SODIUM CHLORIDE IV SCH ×2 (06:14→15:00)
[2019-10-06 06:55] LABS: BASO % 0.6 % (0-2.0); EOS % 0.2 % (0-4.5); HEMATOCRIT 29.6 % (35.4-49); HEMOGLOBIN 9.5 GM/dL (11.7-16.9); LYMPH % 5.3 % (8-40); MCH 25.7 pg (25.7-33.7); MCHC 32.1 g/dl (32.0-35.9); MEAN PLT VOLUME 8.2 fl (7.5-11.1); MONO % 10.8 % (3.8-10.2); NEUT % 83.1 % (42.8-82.8); PLATELET COUNT 408 K/MM3 (134-434); RDW 17.6 % (11.9-15.9); WHITE BLOOD COUNT 8.4 K/mm3 (4.0-10.0)
[2019-10-06 07:25] LABS: ALBUMIN 1.9 g/dl (3.4-5.0); BILIRUBIN,TOTAL 0.3 mg/dL (0.2-1); BLOOD UREA NITROGEN 42.8 mg/dL (7-18); CALCIUM 8.2 mg/dL (8.5-10.1); MAGNESIUM 1.9 mg/dL (1.8-2.4); PHOSPHOROUS 4.6 mg/dL (2.5-4.9); POTASSIUM 4.3 mmol/L (3.5-5.1); TOT PROT 5.2 g/dl (6.4-8.2)
[2019-10-06] MEDS: FENTANYL NS IVPB 500 MCG/100 ML BAG IVPB SCH ×2 (07:45→15:21)
[2019-10-06] MEDS ORDERED: MAGNESIUM SULF 50% (8.12 MEQ/2 ML-1 GM VIAL) IVPB ONE (08:00)
[2019-10-06] MEDS ORDERED: MEROPENEM 1 GM VIAL (RESTRICTED TO ID) IVPB ONE ×2 (08:36→17:04)
[2019-10-06] MEDS ORDERED: DEXTROSE 5%-WATER 100 ML IVPB ONE ×2 (08:36→17:04)
[2019-10-06] MEDS: AMINO ACIDS/PROTEIN HYDROLYS 30 ML LIQUID.PKT PO SCH ×2 (08:46→17:10)
[2019-10-06] MEDS: INSULIN SLIDING SCALE (NOVOLOG) 1 VIAL SQ SCH ×2 (09:03→21:15)
[2019-10-06] MEDS: PANTOPRAZOLE SODIUM 40 MG VIAL IVPUSH SCH (09:06)
[2019-10-06] MEDS: APIXABAN 5 MG TABLET PEG SCH ×2 (09:08→21:15)
[2019-10-06] MEDS: CHLORHEXIDINE GLUCONATE 0.12% 15ML CUP MM SCH ×2 (09:08→21:15)
[2019-10-06] MEDS: MIDAZOLAM 100 MG in SODIUM CHLORIDE 100 ML IVPB SCH ×3 (10:33→23:00)
[2019-10-06] MEDS: VANCOMYCIN 1 GRAM (PRE-DOCKED) 1,000 MG/250 ML BAG IVPB SCH (10:55)
--- NOTE | 2019-10-06 13:08 | PN ---
Teaching Attending Note Name of Resident: David Toribio ATTENDING PHYSICIAN STATEMENT I saw and evaluated the patient. I reviewed the resident's note and discussed the case with the resident. I agree with the resident's findings and plan as documented. SUBJECTIVE: Patient seen and examined in the ICU. Remains intubated and sedated on 1 mcq NE drip for hemodynamic support. AC Mode of vent. PPlat : 28 OBJECTIVE: Intake & Output 10/03/19 10/04/19 10/05/19 10/06/19 23:59 23:59 23:59 23:59 Intake Total 3502.8 2073.9 2184.1 1449.0 Output Total 1500 3200 1650 1000 Balance 2002.8 -1126.1 534.1 449.0 Weight 117 lb 11.2 oz 264 lb 15.93 oz 258 lb 9.636 oz 265 lb 10.512 oz Last Vital Signs Temp Pulse Resp BP Pulse Ox 97.4 F L 103 H 19 107/74 95 10/06/19 08:00 10/06/19 12:00 10/06/19 12:01 10/06/19 12:00 10/06/19 12:01 Active Medications Amino Acids (Prosource No Carb Liquid Pkt) 30 ml PO BID@0800,1730 [facility] Last Admin: 10/06/19 08:46 Dose: 30 ml Documented by: Apixaban (Eliquis -) 5 mg PEG BID [facility] Last Admin: 10/06/19 09:08 Dose: 5 mg Documented by: Chlorhexidine Gluconate (Hibiclens For Decolonization -) 1 applic TP HS [facility] Last Admin: 10/05/19 22:07 Dose: 1 applic Documented by: Chlorhexidine Gluconate (Peridex -) 15 ml MM BID [facility] Last Admin: 10/06/19 09:08 Dose: 15 ml Documented by: Diltiazem HCl (Cardizem -) 60 mg PO Q6HPO [facility] Last Admin: 10/06/19 12:10 Dose: 60 mg Documented by: Furosemide (Lasix Injection -) 40 mg IVPUSH BIDLASIX [facility] Last Admin: 10/06/19 05:31 Dose: 40 mg Documented by: Fentanyl (Sublimaze Ivpb) 500 mcg in 100 mls @ 27.216 mls/hr IVPB TITR [facility]; Protocol Last Admin: 10/06/19 07:45 Dose: 0.37 mcg/kg/hr, 10.07 mls/hr Documented by: Midazolam HCl 100 mg/ Sodium (Chloride) 100 mls @ 1 mls/hr IVPB TITR ELISSA; Protocol Last Admin: 10/06/19 10:33 Dose: Not Given Documented by: Propofol (Diprivan -) 1,000,000 mcg in 100 mls @ 8.165 mls/hr IVPB TITR ELISSA; Protocol Last Admin: 10/06/19 09:10 Dose: 30 mcg/kg/min, 24.494 mls/hr Documented by: Meropenem 1 gm/ Dextrose 100 mls @ 200 mls/hr IVPB Q8H-IV [facility] Last Admin: 10/06/19 09:09 Dose: 200 mls/hr Documented by: Vancomycin HCl (Vancomycin (Pre-Docked)) 1,000 mg in 250 mls @ 200 mls/hr IVPB Q24H [facility]; Protocol Last Admin: 10/06/19 10:55 Dose: 200 mls/hr Documented by: Norepinephrine Bitartrate 8, (000 mcg/ Sodium Chloride) 250 mls @ 9.375 mls/hr IV TITR ELISSA; Protocol Last Admin: 10/06/19 06:14 Dose: 1 mcg/min, 1.875 mls/hr Documented by: Insulin Aspart (Novolog Vial Sliding Scale -) 1 vial SQ BID ELISSA; Protocol Last Admin: 10/06/19 09:03 Dose: 4 units Documented by: Pantoprazole Sodium (Protonix Iv) 40 mg IVPUSH DAILY [facility] Last Admin: 10/06/19 09:06 Dose: 40 mg Documented by: Polyethylene Glycol (Miralax (For Daily Use) -) 17 gm NGT HS@2100 [facility] Last Admin: 10/05/19 21:01 Dose: 17 mg Documented by: Gen: intubated, sedated Heart: RRR Lung: scattered rhonchi Abd: soft, nontender Ext: +edema Laboratory Results - last 24 hr 10/05/19 10/06/19 10/06/19 21:06 05:00 05:00 WBC 8.4 RBC 3.70 L Hgb 9.5 L Hct 29.6 L MCV 80.0 MCH 25.7 MCHC 32.1 RDW 17.6 H Plt Count 408 MPV 8.2 Absolute Neuts (auto) 7.0 Neutrophils % 83.1 H D Lymphocytes % 5.3 L D Monocytes % 10.8 H Eosinophils % 0.2 D Basophils % 0.6 Nucleated RBC % 0 Anticoagulation Therapy Puncture Site Patient Temperature ABG pH ABG pCO2 ABG pO2 ABG HCO3 ABG O2 Sat (Measured) ABG O2 Content ABG Base Excess Adrian Test Patient On Oxygen O2 Delivery Device Oxygen Flow Rate Vent Mode Vent Rate Mechanical Rate PEEP Pressure Support Vent Sodium 135 L Potassium 4.3 Chloride 98 Carbon Dioxide 28 Anion Gap 9 BUN 42.8 H Creatinine 1.0 Est GFR (CKD-EPI)AfAm 100.55 Est GFR (CKD-EPI)NonAf 86.76 POC Glucometer 274 Random Glucose 241 H Calcium 8.2 L Phosphorus 4.6 Magnesium 1.9 Total Bilirubin 0.3 AST 15 ALT 15 Alkaline Phosphatase 194 H Total Protein 5.2 L Albumin 1.9 L 10/06/19 10/06/19 10/06/19 05:29 05:30 08:52 WBC RBC Hgb Hct MCV MCH MCHC RDW Plt Count MPV Absolute Neuts (auto) Neutrophils % Lymphocytes % Monocytes % Eosinophils % Basophils % Nucleated RBC % Anticoagulation Therapy No Result Required. Puncture Site Left radial Patient Temperature No Result Required. ABG pH 7.385 ABG pCO2 46.60 H ABG pO2 66.6 L ABG HCO3 27.3 H ABG O2 Sat (Measured) 92.8 L ABG O2 Content No Result Required. ABG Base Excess 1.8 Adrian Test Positive Patient On Oxygen Yes O2 Delivery Device Vent Oxygen Flow Rate 80% Vent Mode A/c Vent Rate 18 Mechanical Rate Yes PEEP 6.0 Pressure Support Vent 390 Sodium Potassium Chloride Carbon Dioxide Anion Gap BUN Creatinine Est GFR (CKD-EPI)AfAm Est GFR (CKD-EPI)NonAf POC Glucometer 226 216 Random Glucose Calcium Phosphorus Magnesium Total Bilirubin AST ALT Alkaline Phosphatase Total Protein Albumin ASSESSMENT AND PLAN: Acute Hypoxic and Hypercapneic Respiratory Failure UTI Pneumonia ARDS Septic Shock Acute on Chronic Diastolic Heart Failure Volume Overload Atrial Fibrillation/Flutter with RVR h/o COVID19 Sarcoidosis Morbid Obesity EMMY/OHS - ABX coverage - Pressors to maintain MAP >65 - rate control - continue anticoagulation - Diuresis as tolerated - monitor urine output, creatinine - continue volume assist control - enteral feeds - DVT/GI prophylaxis - continue ICU monitoring May need Trach Dr Maya Critical care time spent in reviewing chart, evaluating patient and formulating plan 35 min
[2019-10-06] MEDS ORDERED: PT OWN MED DRAWER 7, Y5N ONE (13:53)
--- NOTE | 2019-10-06 13:57 | PN ---
Physical Exam: SUBJECTIVE: Patient seen and examined at bedside. There were no acute events overnight. This AM he remains intubated, sedated, and unable to participate in medical interview. OBJECTIVE: Vital Signs Period Temp Pulse Resp BP Sys/Kenyon Pulse Ox Last 24 Hr 97 F-98.1 F 90-120 11-28 90-112/55-88 91-95 GENERAL: intubated, sedated HEAD: Normal with no signs of trauma. LUNGS: rhonchi b/l HEART: Sinus tachy , normal S1 and S2 without murmur, rub or gallop. ABDOMEN: Soft, nontender, not distended, normoactive bowel sounds, LOWER EXTREMITIES: 2+ pulses, warm, well-perfused. No calf tenderness. No peripheral edema. Laboratory Results - last 24 hr 10/05/19 10/06/19 10/06/19 21:06 05:00 05:00 WBC 8.4 RBC 3.70 L Hgb 9.5 L Hct 29.6 L MCV 80.0 MCH 25.7 MCHC 32.1 RDW 17.6 H Plt Count 408 MPV 8.2 Absolute Neuts (auto) 7.0 Neutrophils % 83.1 H D Lymphocytes % 5.3 L D Monocytes % 10.8 H Eosinophils % 0.2 D Basophils % 0.6 Nucleated RBC % 0 Anticoagulation Therapy Puncture Site Patient Temperature ABG pH ABG pCO2 ABG pO2 ABG HCO3 ABG O2 Sat (Measured) ABG O2 Content ABG Base Excess Adrian Test Patient On Oxygen O2 Delivery Device Oxygen Flow Rate Vent Mode Vent Rate Mechanical Rate PEEP Pressure Support Vent Sodium 135 L Potassium 4.3 Chloride 98 Carbon Dioxide 28 Anion Gap 9 BUN 42.8 H Creatinine 1.0 Est GFR (CKD-EPI)AfAm 100.55 Est GFR (CKD-EPI)NonAf 86.76 POC Glucometer 274 Random Glucose 241 H Calcium 8.2 L Phosphorus 4.6 Magnesium 1.9 Total Bilirubin 0.3 AST 15 ALT 15 Alkaline Phosphatase 194 H Total Protein 5.2 L Albumin 1.9 L 10/06/19 10/06/19 10/06/19 05:29 05:30 08:52 WBC RBC Hgb Hct MCV MCH MCHC RDW Plt Count MPV Absolute Neuts (auto) Neutrophils % Lymphocytes % Monocytes % Eosinophils % Basophils % Nucleated RBC % Anticoagulation Therapy No Result Required. Puncture Site Left radial Patient Temperature No Result Required. ABG pH 7.385 ABG pCO2 46.60 H ABG pO2 66.6 L ABG HCO3 27.3 H ABG O2 Sat (Measured) 92.8 L ABG O2 Content No Result Required. ABG Base Excess 1.8 Adrian Test Positive Patient On Oxygen Yes O2 Delivery Device Vent Oxygen Flow Rate 80% Vent Mode A/c Vent Rate 18 Mechanical Rate Yes PEEP 6.0 Pressure Support Vent 390 Sodium Potassium Chloride Carbon Dioxide Anion Gap BUN Creatinine Est GFR (CKD-EPI)AfAm Est GFR (CKD-EPI)NonAf POC Glucometer 226 216 Random Glucose Calcium Phosphorus Magnesium Total Bilirubin AST ALT Alkaline Phosphatase Total Protein Albumin Active Medications Generic Name Dose Route Start Last Admin Trade Name Freq PRN Reason Stop Dose Admin Amino Acids 30 ml 09/29/19 17:30 10/06/19 08:46 Prosource No Carb Liquid Pkt PO 30 ml BID@0800,1730 ELISSA Administration Apixaban 5 mg 09/27/19 22:00 10/06/19 09:08 Eliquis - PEG 5 mg BID ELISSA Administration Chlorhexidine Gluconate 1 applic 09/27/19 22:00 10/05/19 22:07 Hibiclens For Decolonization - TP 1 applic HS ELISSA Administration Chlorhexidine Gluconate 15 ml 10/05/19 22:00 10/06/19 09:08 Peridex - MM 15 ml BID ELISSA Administration Diltiazem HCl 60 mg 09/29/19 12:00 10/06/19 12:10 Cardizem - PO 60 mg Q6HPO ELISSA Administration Furosemide 40 mg 10/01/19 14:00 10/06/19 05:31 Lasix Injection - IVPUSH 40 mg BIDLASIX ELISSA Administration Fentanyl 500 mcg in 100 mls @ 27.216 mls/hr 09/27/19 09:00 10/06/19 07:45 Sublimaze Ivpb IVPB 0.37 mcg/kg/hr TITR ELISSA 10.07 mls/hr Administration Protocol 1 MCG/KG/HR Midazolam HCl 100 mg/ Sodium 100 mls @ 1 mls/hr 09/27/19 09:00 10/06/19 10:33 Chloride IVPB Not Given TITR ELISSA Protocol 1 MG/HR Propofol 1,000,000 mcg in 100 mls @ 8.165 mls/hr 09/27/19 13:00 10/06/19 13:14 Diprivan - IVPB 30 mcg/kg/min TITR ELISSA 24.494 mls/hr Administration Protocol 10 MCG/KG/MIN Meropenem 1 gm/ Dextrose 100 mls @ 200 mls/hr 09/28/19 12:00 10/06/19 09:09 IVPB 200 mls/hr Q8H-IV ELISSA Administration Vancomycin HCl 1,000 mg in 250 mls @ 200 mls/hr 10/04/19 11:00 10/06/19 10:55 Vancomycin (Pre-Docked) IVPB 200 mls/hr Q24H ELISSA Administration Protocol Norepinephrine Bitartrate 8, 250 mls @ 9.375 mls/hr 10/05/19 06:00 10/06/19 06:14 000 mcg/ Sodium Chloride IV 1 mcg/min TITR ELISSA 1.875 mls/hr Administration Protocol 5 MCG/MIN Insulin Aspart 1 vial 10/05/19 22:00 10/06/19 09:03 Novolog Vial Sliding Scale - SQ 4 units BID ELISSA Administration Protocol Pantoprazole Sodium 40 mg 09/29/19 11:00 10/06/19 09:06 Protonix Iv IVPUSH 40 mg DAILY ELISSA Administration Polyethylene Glycol 17 gm 10/03/19 21:00 10/05/19 21:01 Miralax (For Daily Use) - NGT 17 mg HS@2100 ELISSA Administration ASSESSMENT/PLAN: 53 y/o male PMH dDHF, afib/flutter on eliquis, sarcoidosis, guillan barre, morbid obesity, tracheostomy 2/2 respiratory failure s/p reversal comes into the ed c/o worsening SOB and admitted for acute hypoxic hypercapnic respiratory. #Neuro Propofol 30, versed 10, fentanyl 50 #CVS afib/aflutter on eliquis, dCHF Levophed 2, maintain a MAP >=65 Cardizam 60 Q6H to maintain HR <110 #Pulmonary Acute hypoxic hypercapnic respiratory failure, PNA, ARDS CXR: b/l lower lobe consolidation and left pleural effusion Maintain 02 saturation >88% 18/390/80%/6 plat 28 family amenable to trach and can plan for next week if vent settings are appropriate Lasix 40 mg IV BID #ID H/o CoVid-19 and current serology NEG Mucomyst with albuterol nebulizer Leukopenia- cont to monitor Sputum Cx pending H/O ESBL UA positive UCx: Enterbacter >100,000 Sputum presumptive MRSA Contact precautions Vanco/Meropenem day 8 # Renal Cr 1 UO 1,650 # Endo ISS # TLD LEFT IJ 10/05 RIGHT A line 10/04 ETT 09/26 Andrews 09/26 #Ppx Protonix 40 mg IV qd Eliquis 5mg BID #FEN Promote Cont. to monitor electrolytes Promote #Disposition ICU Full code Visit type - Emergency Visit Emergency Visit: No - New Patient This patient is new to me today: No - Critical Care Critical Care patient: Yes Total Critical Care Time (in minutes): 36 Critical Care Statement: The care of this patient involved high complexity decision making to prevent further life threatening deterioration of the patient's condition and/or to evaluate & treat vital organ system(s) failure or risk of failure. ATTENDING PHYSICIAN STATEMENT I saw and evaluated the patient. I reviewed the resident's note and discussed the case with the resident. I agree with the resident's findings and plan as documented. SUBJECTIVE: OBJECTIVE: ASSESSMENT AND PLAN:
--- NOTE | 2019-10-06 13:57 | PROC ---
Central Line Insertion Indication: Vasopressor Risks and Benefits Explained: Yes Consent on Chart: Yes Central Line: Triple Lumen Catheter Anesthesia: 1% Lidocaine Sterile Technique: Yes Ultrasound Guided Assistance: Yes Position: Left Internal Jugular Post Insertion: Yes: Bilateral Chest Expansion Sterile Dressing Applied: Yes
--- NOTE | 2019-10-06 14:23 | PN ---
Progress Note, Physician History of Present Illness: REMAINS ON VENTILATOR NO ACUTE DISTRESS AFEBRILE HYPOTENSIVE ON PRESSORS WBC WNL BC NO GROWTH URINE C/S (R) ENTEROBACTER SPUTUM ESBL, MRSA - Current Medication List Current Medications: Active Medications Amino Acids (Prosource No Carb Liquid Pkt) 30 ml PO BID@0800,1730 [facility] Last Admin: 10/06/19 08:46 Dose: 30 ml Documented by: Apixaban (Eliquis -) 5 mg PEG BID [facility] Last Admin: 10/06/19 09:08 Dose: 5 mg Documented by: Chlorhexidine Gluconate (Hibiclens For Decolonization -) 1 applic TP HS [facility] Last Admin: 10/05/19 22:07 Dose: 1 applic Documented by: Chlorhexidine Gluconate (Peridex -) 15 ml MM BID [facility] Last Admin: 10/06/19 09:08 Dose: 15 ml Documented by: Diltiazem HCl (Cardizem -) 60 mg PO Q6HPO [facility] Last Admin: 10/06/19 12:10 Dose: 60 mg Documented by: Furosemide (Lasix Injection -) 40 mg IVPUSH BIDLASIX [facility] Last Admin: 10/06/19 05:31 Dose: 40 mg Documented by: Fentanyl (Sublimaze Ivpb) 500 mcg in 100 mls @ 27.216 mls/hr IVPB TITR [facility]; Protocol Last Admin: 10/06/19 07:45 Dose: 0.37 mcg/kg/hr, 10.07 mls/hr Documented by: Midazolam HCl 100 mg/ Sodium (Chloride) 100 mls @ 1 mls/hr IVPB TITR [facility]; Protocol Last Admin: 10/06/19 10:33 Dose: Not Given Documented by: Propofol (Diprivan -) 1,000,000 mcg in 100 mls @ 8.165 mls/hr IVPB TITR [facility]; Protocol Last Admin: 10/06/19 13:14 Dose: 30 mcg/kg/min, 24.494 mls/hr Documented by: Meropenem 1 gm/ Dextrose 100 mls @ 200 mls/hr IVPB Q8H-IV [facility] Last Admin: 10/06/19 09:09 Dose: 200 mls/hr Documented by: Vancomycin HCl (Vancomycin (Pre-Docked)) 1,000 mg in 250 mls @ 200 mls/hr IVPB Q24H [facility]; Protocol Last Admin: 10/06/19 10:55 Dose: 200 mls/hr Documented by: Norepinephrine Bitartrate 8, (000 mcg/ Sodium Chloride) 250 mls @ 9.375 mls/hr IV TITR [facility]ISSA; Protocol Last Admin: 10/06/19 06:14 Dose: 1 mcg/min, 1.875 mls/hr Documented by: Insulin Aspart (Novolog Vial Sliding Scale -) 1 vial SQ BID [facility]ISSA; Protocol Last Admin: 10/06/19 09:03 Dose: 4 units Documented by: Pantoprazole Sodium (Protonix Iv) 40 mg IVPUSH DAILY [facility] Last Admin: 10/06/19 09:06 Dose: 40 mg Documented by: Polyethylene Glycol (Miralax (For Daily Use) -) 17 gm NGT HS@2100 [facility] Last Admin: 10/05/19 21:01 Dose: 17 mg Documented by: - Objective Vital Signs: Vital Signs Temperature 97.4 F L 10/06/19 08:00 Pulse Rate 103 H 10/06/19 12:00 Respiratory Rate 19 10/06/19 12:01 Blood Pressure 107/74 10/06/19 12:00 O2 Sat by Pulse Oximetry (%) 95 10/06/19 12:01 Constitutional: Yes: No Distress, Obese Eyes: Yes: Conjunctiva Clear Cardiovascular: Yes: Regular Rate and Rhythm, S1, S2 Respiratory: Yes: Mechanically Ventilated Gastrointestinal: Yes: Normal Bowel Sounds, Soft. No: Tenderness Edema: Yes Labs: CBC, BMP 10/06/19 05:00 10/06/19 05:00 INR, PTT INR 1.02 (0.83-1.09) 09/27/19 05:20 Assessment/Plan ACUTE RESP FAILURE + SPUTUM MRSA, ESBL PNEUMONIA SEPSIS R/O SEPTIC SHOCK UTI S/P CARDIOPULMONARY ARREST CONTINUE MEROPENEM/VANCOMYCIN VENTILATORY/ HEMODYNAMIC SUPPORT CONTACT PRECAUTIONS
[2019-10-06] MEDS: CHLORHEXIDINE GLUCONATE 4% CLEANSER FOR DECOLONIZATION TP SCH (21:11)
[2019-10-06] MEDS: POLYETHYLENE GLYCOL 3350 119 GM BTL NGT SCH (21:17)
[2019-10-07] MEDS ORDERED: MEROPENEM 1 GM VIAL (RESTRICTED TO ID) IVPB ONE ×3 (01:07→17:57)
[2019-10-07] MEDS ORDERED: DEXTROSE 5%-WATER 100 ML IVPB ONE ×3 (01:07→17:57)
[2019-10-07] MEDS: MEROPENEM 1 GM in DEXTROSE 5%-WATER 100 ML IVPB SCH ×3 (01:15→18:00)
[2019-10-07] MEDS: dilTIAZem HCL 60 MG TABLET PO SCH ×5 (05:58→22:30)
[2019-10-07] MEDS: FUROSEMIDE 40 MG/4 ML INJECTABLE VIAL IVPUSH SCH ×2 (05:58→14:10)
[2019-10-07 06:12] LABS: HEMATOCRIT 30.2 % (35.4-49); HEMOGLOBIN 9.7 GM/dL (11.7-16.9); MCH 25.5 pg (25.7-33.7); MEAN CELL VOLUME 79.6 fl (80-96); MEAN PLT VOLUME 7.8 fl (7.5-11.1); PLATELET COUNT 378 K/MM3 (134-434); WHITE BLOOD COUNT 6.3 K/mm3 (4.0-10.0)
[2019-10-07] MEDS: PROPOFOL 1,000,000 MCG/100 ML VIAL IVPB SCH ×2 (06:40→11:38)
[2019-10-07] MEDS: NOREPINEPHRINE BITARTRATE IV SCH (06:40)
[2019-10-07] MEDS: SODIUM CHLORIDE IV SCH (06:40)
[2019-10-07 06:49] LABS: BILIRUBIN,TOTAL 0.3 mg/dL (0.2-1); BLOOD UREA NITROGEN 42.2 mg/dL (7-18); CALCIUM 8.4 mg/dL (8.5-10.1); CREATININE 0.8 mg/dL (0.55-1.3); PHOSPHOROUS 4.3 mg/dL (2.5-4.9); TOT PROT 5.3 g/dl (6.4-8.2)
[2019-10-07] MEDS ORDERED: BENZOIN/ALOE VERA/STORAX/TOLU 58 ML BOTTLE ONE (08:18)
--- NOTE | 2019-10-07 08:37 | PN ---
Physical Exam: SUBJECTIVE: Patient seen this morning, intubated and sedated. Patient persistently tachycardic overnight. OBJECTIVE: Vital Signs Period Temp Pulse Resp BP Sys/Kenyon Pulse Ox Last 24 Hr 97 F-97.9 F 95-116 17-23 82-115/58-74 93-95 GENERAL: The patient is sedated intubated HEAD: Normal with no signs of trauma. EYES: PERRL, ENT: moist mucous membranes. NECK: Trachea midline, full range of motion, supple. LUNGS: Breath sounds equal, clear to auscultation bilaterally, HEART: tachycardic ABDOMEN: Soft, nontender, nondistended, EXTREMITIES: 2+ pulses, warm, well-perfused, no edema. SKIN: Warm, dry, normal turgor, no rashes or lesions noted Laboratory Results - last 24 hr 10/06/19 10/06/19 10/07/19 08:52 21:04 05:50 WBC 6.3 RBC 3.80 L Hgb 9.7 L Hct 30.2 L MCV 79.6 L MCH 25.5 L MCHC 32.0 RDW 18.0 H Plt Count 378 MPV 7.8 Sodium Potassium Chloride Carbon Dioxide Anion Gap BUN Creatinine Est GFR (CKD-EPI)AfAm Est GFR (CKD-EPI)NonAf POC Glucometer 216 175 Random Glucose Calcium Phosphorus Magnesium Total Bilirubin AST ALT Alkaline Phosphatase Total Protein Albumin 10/07/19 05:50 WBC RBC Hgb Hct MCV MCH MCHC RDW Plt Count MPV Sodium 136 Potassium 4.0 Chloride 98 Carbon Dioxide 35 H Anion Gap 3 L BUN 42.2 H Creatinine 0.8 Est GFR (CKD-EPI)AfAm 119.88 Est GFR (CKD-EPI)NonAf 103.43 POC Glucometer Random Glucose 154 H Calcium 8.4 L Phosphorus 4.3 Magnesium 2.0 Total Bilirubin 0.3 AST 21 ALT 18 Alkaline Phosphatase 193 H Total Protein 5.3 L Albumin 2.0 L Active Medications Generic Name Dose Route Start Last Admin Trade Name Freq PRN Reason Stop Dose Admin Amino Acids 30 ml 09/29/19 17:30 10/06/19 17:10 Prosource No Carb Liquid Pkt PO 30 ml BID@0800,1730 ELISSA Administration Apixaban 5 mg 09/27/19 22:00 10/06/19 21:15 Eliquis - PEG 5 mg BID ELISSA Administration Chlorhexidine Gluconate 1 applic 09/27/19 22:00 10/06/19 21:11 Hibiclens For Decolonization - TP 1 applic HS ELISSA Administration Chlorhexidine Gluconate 15 ml 10/05/19 22:00 10/06/19 21:15 Peridex - MM 15 ml BID ELISSA Administration Diltiazem HCl 60 mg 09/29/19 12:00 10/07/19 05:58 Cardizem - PO 60 mg Q6HPO ELISSA Administration Furosemide 40 mg 10/01/19 14:00 10/07/19 05:58 Lasix Injection - IVPUSH 40 mg BIDLASIX ELISSA Administration Fentanyl 500 mcg in 100 mls @ 27.216 mls/hr 09/27/19 09:00 10/06/19 15:21 Sublimaze Ivpb IVPB 0.37 mcg/kg/hr TITR ELISSA 10.07 mls/hr Administration Protocol 1 MCG/KG/HR Midazolam HCl 100 mg/ Sodium 100 mls @ 1 mls/hr 09/27/19 09:00 10/06/19 23:00 Chloride IVPB 10 mg/hr TITR ELISSA 10 mls/hr Administration Protocol 1 MG/HR Propofol 1,000,000 mcg in 100 mls @ 8.165 mls/hr 09/27/19 13:00 10/07/19 06:40 Diprivan - IVPB 30 mcg/kg/min TITR ELISSA 24.494 mls/hr Administration Protocol 10 MCG/KG/MIN Meropenem 1 gm/ Dextrose 100 mls @ 200 mls/hr 09/28/19 12:00 10/07/19 01:15 IVPB 200 mls/hr Q8H-IV ELISSA Administration Vancomycin HCl 1,000 mg in 250 mls @ 200 mls/hr 10/04/19 11:00 10/06/19 10:55 Vancomycin (Pre-Docked) IVPB 200 mls/hr Q24H ELISSA Administration Protocol Norepinephrine Bitartrate 8, 250 mls @ 9.375 mls/hr 10/05/19 06:00 10/07/19 06:40 000 mcg/ Sodium Chloride IV Not Given TITR ELISSA Protocol 5 MCG/MIN Insulin Aspart 1 vial 10/05/19 22:00 10/06/19 21:15 Novolog Vial Sliding Scale - SQ 2 units BID ELISSA Administration Protocol Pantoprazole Sodium 40 mg 09/29/19 11:00 10/06/19 09:06 Protonix Iv IVPUSH 40 mg DAILY ELISSA Administration Polyethylene Glycol 17 gm 10/03/19 21:00 10/06/19 21:17 Miralax (For Daily Use) - NGT 17 mg HS@2100 ELISSA Administration ASSESSMENT/PLAN: 53 yo m w/ dDHF, afib/flutter on eliquis, sarcoidosis, guillan barre, morbid obesity, tracheostomywho is admitted for acute on chronic hypercapnic hypoxic respiratory failure 2/2 to CHF #Neuro -intubated and sedated on propofol/ versed and fentanyl - attempt sedation vacation when vent settings allow #Cardio -h/o afib/aflutter on eliquis, CHF exacerbation -persistently tachycardic -increased cardizem to 90 q6h -off pressors -hx CHF, congestion on XRay -continue lasix 40 mg bid -08/27/19 Echo: low normal LV function EF 25%, mild LVH, mildly dilated RA and RV, moderate to severe pulmonary HTN - continue to monitor I's &O's, daily weights #Pulmonary -acute hypoxic hypercapnic respiratory failure 2/2 to CHF exacerbation -maintain saturation >88%, continue to try and wean down vent settings - monitor CXR - will likely need trach, discussed with family and interested in a trach, continue to wean vent settings until appropriate for trach placement, likely next week #ID - sputum growing ESBL and MRSA - Meropenem q8h - Vancomycin daily - contact precautions #GI - stool softeners with miralax #Endo - BGM ACHS - continue SS #Heme - anemia, at baseline - monitor Hgb daily #DVT ppx -Eliquis 5mg BID #FEN -Promote feeds Lines - central line MNJ 10/05 Dispo: continue to monitor in ICU Visit type - Emergency Visit Emergency Visit: No - New Patient This patient is new to me today: No - Critical Care Critical Care patient: Yes Total Critical Care Time (in minutes): 45 Critical Care Statement: The care of this patient involved high complexity decision making to prevent further life threatening deterioration of the patient's condition and/or to evaluate & treat vital organ system(s) failure or risk of failure. ATTENDING PHYSICIAN STATEMENT I saw and evaluated the patient. I reviewed the resident's note and discussed the case with the resident. I agree with the resident's findings and plan as documented. SUBJECTIVE: OBJECTIVE: ASSESSMENT AND PLAN:
[2019-10-07] MEDS ORDERED: MIDAZOLAM IN 0.9 % SOD.CHLORID 1 MG/1 ML PLAST..BAG ONE ×2 (08:52→19:54)
[2019-10-07] MEDS: AMINO ACIDS/PROTEIN HYDROLYS 30 ML LIQUID.PKT PO SCH ×2 (08:55→17:59)
[2019-10-07] MEDS: MIDAZOLAM 100 MG in SODIUM CHLORIDE 100 ML IVPB SCH (08:56)
[2019-10-07] MEDS: APIXABAN 5 MG TABLET PEG SCH ×2 (10:13→21:15)
[2019-10-07] MEDS: CHLORHEXIDINE GLUCONATE 0.12% 15ML CUP MM SCH ×2 (10:13→21:16)
[2019-10-07] MEDS: PANTOPRAZOLE SODIUM 40 MG VIAL IVPUSH SCH (10:13)
[2019-10-07] MEDS: INSULIN SLIDING SCALE (NOVOLOG) 1 VIAL SQ SCH ×2 (10:41→22:09)
[2019-10-07] MEDS: VANCOMYCIN 1 GRAM (PRE-DOCKED) 1,000 MG/250 ML BAG IVPB SCH (10:42)
--- NOTE | 2019-10-07 11:30 | PN ---
Teaching Attending Note Name of Resident: Apryl Guzman ATTENDING PHYSICIAN STATEMENT I saw and evaluated the patient. I reviewed the resident's note and discussed the case with the resident. I agree with the resident's findings and plan as documented. SUBJECTIVE: Patient seen and examined in the ICU. Remains intubated and sedated. Off NE drip for hemodynamic support. AC Mode of vent. PPlat : 28 OBJECTIVE: Intake & Output 10/04/19 10/05/19 10/06/19 10/07/19 23:59 23:59 23:59 23:59 Intake Total 2073.9 2184.1 2772.6 1220 Output Total 3200 1650 1950 500 Balance -1126.1 534.1 822.6 720 Weight 264 lb 15.93 oz 258 lb 9.636 oz 265 lb 10.512 oz 261 lb 12.8 oz Last Vital Signs Temp Pulse Resp BP Pulse Ox 97.7 F 116 H 18 90/48 L 96 10/07/19 10:00 10/07/19 10:00 10/07/19 10:00 10/07/19 10:00 10/07/19 09:30 Active Medications Amino Acids (Prosource No Carb Liquid Pkt) 30 ml PO BID@0800,1730 [facility] Last Admin: 10/07/19 08:55 Dose: 30 ml Documented by: Apixaban (Eliquis -) 5 mg PEG BID [facility] Last Admin: 10/07/19 10:13 Dose: 5 mg Documented by: Chlorhexidine Gluconate (Hibiclens For Decolonization -) 1 applic TP HS [facility] Last Admin: 10/06/19 21:11 Dose: 1 applic Documented by: Chlorhexidine Gluconate (Peridex -) 15 ml MM BID [facility] Last Admin: 10/07/19 10:13 Dose: 15 ml Documented by: Diltiazem HCl (Cardizem -) 60 mg PO Q6HPO [facility] Last Admin: 10/07/19 05:58 Dose: 60 mg Documented by: Furosemide (Lasix Injection -) 40 mg IVPUSH BIDLASIX [facility] Last Admin: 10/07/19 05:58 Dose: 40 mg Documented by: Fentanyl (Sublimaze Ivpb) 500 mcg in 100 mls @ 27.216 mls/hr IVPB TITR [facility]; Protocol Last Admin: 10/06/19 15:21 Dose: 0.37 mcg/kg/hr, 10.07 mls/hr Documented by: Midazolam HCl 100 mg/ Sodium (Chloride) 100 mls @ 1 mls/hr IVPB TITR [facility]ISSA; Protocol Last Admin: 10/07/19 08:56 Dose: 10 mg/hr, 10 mls/hr Documented by: Propofol (Diprivan -) 1,000,000 mcg in 100 mls @ 8.165 mls/hr IVPB TITR [facility]IS[facility]; Protocol Last Admin: 10/07/19 06:40 Dose: 30 mcg/kg/min, 24.494 mls/hr Documented by: Meropenem 1 gm/ Dextrose 100 mls @ 200 mls/hr IVPB Q8H-IV [facility] Last Admin: 10/07/19 09:33 Dose: 200 mls/hr Documented by: Vancomycin HCl (Vancomycin (Pre-Docked)) 1,000 mg in 250 mls @ 200 mls/hr IVPB Q24H [facility]; Protocol Last Admin: 10/07/19 10:42 Dose: 200 mls/hr Documented by: Norepinephrine Bitartrate 8, (000 mcg/ Sodium Chloride) 250 mls @ 9.375 mls/hr IV TITR [facility]; Protocol Last Titration: 10/07/19 09:00 Dose: 0 mcg/min, 0 mls/hr Documented by: Insulin Aspart (Novolog Vial Sliding Scale -) 1 vial SQ BID [facility]; Protocol Last Admin: 10/07/19 10:41 Dose: 2 units Documented by: Pantoprazole Sodium (Protonix Iv) 40 mg IVPUSH DAILY [facility] Last Admin: 10/07/19 10:13 Dose: 40 mg Documented by: Polyethylene Glycol (Miralax (For Daily Use) -) 17 gm NGT HS@2100 [facility] Last Admin: 10/06/19 21:17 Dose: 17 mg Documented by: Gen: intubated, sedated Heart: RRR Lung: scattered rhonchi Abd: soft, nontender Ext: +edema Laboratory Results - last 24 hr 10/06/19 10/07/19 10/07/19 21:04 05:50 05:50 WBC 6.3 RBC 3.80 L Hgb 9.7 L Hct 30.2 L MCV 79.6 L MCH 25.5 L MCHC 32.0 RDW 18.0 H Plt Count 378 MPV 7.8 Sodium 136 Potassium 4.0 Chloride 98 Carbon Dioxide 35 H Anion Gap 3 L BUN 42.2 H Creatinine 0.8 Est GFR (CKD-EPI)AfAm 119.88 Est GFR (CKD-EPI)NonAf 103.43 POC Glucometer 175 Random Glucose 154 H Calcium 8.4 L Phosphorus 4.3 Magnesium 2.0 Total Bilirubin 0.3 AST 21 ALT 18 Alkaline Phosphatase 193 H Total Protein 5.3 L Albumin 2.0 L 10/07/19 10:39 WBC RBC Hgb Hct MCV MCH MCHC RDW Plt Count MPV Sodium Potassium Chloride Carbon Dioxide Anion Gap BUN Creatinine Est GFR (CKD-EPI)AfAm Est GFR (CKD-EPI)NonAf POC Glucometer 195 Random Glucose Calcium Phosphorus Magnesium Total Bilirubin AST ALT Alkaline Phosphatase Total Protein Albumin ASSESSMENT AND PLAN: Acute Hypoxic and Hypercapneic Respiratory Failure UTI Pneumonia ARDS Septic Shock Acute on Chronic Diastolic Heart Failure Volume Overload Atrial Fibrillation/Flutter with RVR h/o COVID19 Sarcoidosis Morbid Obesity EMMY/OHS - ABX coverage - rate control: increase - continue anticoagulation - Diuresis as tolerated - monitor urine output, creatinine - continue volume assist control - enteral feeds - DVT/GI prophylaxis - continue ICU monitoring May need Trach Dr Maya Critical care time spent in reviewing chart, evaluating patient and formulating plan 35 min
--- NOTE | 2019-10-07 11:33 | PN ---
Progress Note, Physician History of Present Illness: REMAINS ON VENTILATOR SEDATED NO ACUTE DISTRESS AFEBRILE OFF PRESSORS WBC WNL BC NO GROWTH URINE C/S (R) ENTEROBACTER SPUTUM ESBL, MRSA - Current Medication List Current Medications: Active Medications Amino Acids (Prosource No Carb Liquid Pkt) 30 ml PO BID@0800,1730 [facility] Last Admin: 10/07/19 08:55 Dose: 30 ml Documented by: Apixaban (Eliquis -) 5 mg PEG BID [facility] Last Admin: 10/07/19 10:13 Dose: 5 mg Documented by: Chlorhexidine Gluconate (Hibiclens For Decolonization -) 1 applic TP HS [facility] Last Admin: 10/06/19 21:11 Dose: 1 applic Documented by: Chlorhexidine Gluconate (Peridex -) 15 ml MM BID [facility] Last Admin: 10/07/19 10:13 Dose: 15 ml Documented by: Diltiazem HCl (Cardizem -) 60 mg PO Q6HPO [facility] Last Admin: 10/07/19 05:58 Dose: 60 mg Documented by: Furosemide (Lasix Injection -) 40 mg IVPUSH BIDLASIX [facility] Last Admin: 10/07/19 05:58 Dose: 40 mg Documented by: Fentanyl (Sublimaze Ivpb) 500 mcg in 100 mls @ 27.216 mls/hr IVPB TITR [facility]; Protocol Last Admin: 10/06/19 15:21 Dose: 0.37 mcg/kg/hr, 10.07 mls/hr Documented by: Midazolam HCl 100 mg/ Sodium (Chloride) 100 mls @ 1 mls/hr IVPB TITR [facility]; Protocol Last Admin: 10/07/19 08:56 Dose: 10 mg/hr, 10 mls/hr Documented by: Propofol (Diprivan -) 1,000,000 mcg in 100 mls @ 8.165 mls/hr IVPB TITR [facility]; Protocol Last Admin: 10/07/19 06:40 Dose: 30 mcg/kg/min, 24.494 mls/hr Documented by: Meropenem 1 gm/ Dextrose 100 mls @ 200 mls/hr IVPB Q8H-IV [facility] Last Admin: 10/07/19 09:33 Dose: 200 mls/hr Documented by: Vancomycin HCl (Vancomycin (Pre-Docked)) 1,000 mg in 250 mls @ 200 mls/hr IVPB Q24H [facility]; Protocol Last Admin: 10/07/19 10:42 Dose: 200 mls/hr Documented by: Norepinephrine Bitartrate 8, (000 mcg/ Sodium Chloride) 250 mls @ 9.375 mls/hr IV TITR [facility]; Protocol Last Titration: 10/07/19 09:00 Dose: 0 mcg/min, 0 mls/hr Documented by: Insulin Aspart (Novolog Vial Sliding Scale -) 1 vial SQ BID [facility]; Protocol Last Admin: 10/07/19 10:41 Dose: 2 units Documented by: Pantoprazole Sodium (Protonix Iv) 40 mg IVPUSH DAILY [facility] Last Admin: 10/07/19 10:13 Dose: 40 mg Documented by: Polyethylene Glycol (Miralax (For Daily Use) -) 17 gm NGT HS@2100 [facility] Last Admin: 10/06/19 21:17 Dose: 17 mg Documented by: - Objective Vital Signs: Vital Signs Temperature 97.7 F 10/07/19 10:00 Pulse Rate 116 H 10/07/19 10:00 Respiratory Rate 18 10/07/19 10:00 Blood Pressure 90/48 L 10/07/19 10:00 O2 Sat by Pulse Oximetry (%) 96 10/07/19 09:30 Constitutional: Yes: No Distress, Obese Eyes: Yes: Conjunctiva Clear Cardiovascular: Yes: Regular Rate and Rhythm, S1, S2 Respiratory: Yes: Mechanically Ventilated Gastrointestinal: Yes: Normal Bowel Sounds, Soft, Abdomen, Obese Edema: Yes Labs: CBC, BMP 10/07/19 05:50 10/07/19 05:50 INR, PTT INR 1.02 (0.83-1.09) 09/27/19 05:20 Assessment/Plan ACUTE RESP FAILURE + SPUTUM MRSA, ESBL PNEUMONIA SEPSIS R/O SEPTIC SHOCK UTI S/P CARDIOPULMONARY ARREST CONTINUE MEROPENEM/VANCOMYCIN VENTILATORY/ HEMODYNAMIC SUPPORT CONTACT PRECAUTIONS
[2019-10-07] MEDS: FENTANYL NS IVPB 500 MCG/100 ML BAG IVPB SCH (12:00)
[2019-10-07] MEDS ORDERED: FENTANYL NS IVPB 500 MCG/100 ML BAG IVPB SCH ×2 (13:15→17:15)
[2019-10-07] MEDS: NOREPINEPHRINE BITARTRATE 8,000 MCG/500 ML BAG IVPB SCH (18:40)
[2019-10-07] MEDS ORDERED: NOREPINEPHRINE BITARTRATE 4 MG/4 ML ML IV ONE (19:23)
[2019-10-07] MEDS: CHLORHEXIDINE GLUCONATE 4% CLEANSER FOR DECOLONIZATION TP SCH (21:15)
[2019-10-07] MEDS: POLYETHYLENE GLYCOL 3350 119 GM BTL NGT SCH (21:15)
[2019-10-08] MEDS ORDERED: MEROPENEM 1 GM VIAL (RESTRICTED TO ID) IVPB ONE ×3 (00:16→17:07)
[2019-10-08] MEDS ORDERED: DEXTROSE 5%-WATER 100 ML IVPB ONE ×3 (00:16→17:07)
[2019-10-08] MEDS: METOPROLOL TARTRATE 5 MG/5 ML VIAL IVPUSH PRN ×3 (00:23→11:40)
[2019-10-08] MEDS: MEROPENEM 1 GM in DEXTROSE 5%-WATER 100 ML IVPB SCH ×3 (01:47→17:09)
[2019-10-08] MEDS ORDERED: MIDAZOLAM IN 0.9 % SOD.CHLORID 1 MG/1 ML PLAST..BAG ONE ×2 (04:56→08:09)
[2019-10-08] MEDS: dilTIAZem HCL 60 MG TABLET PO SCH ×3 (06:25→17:09)
[2019-10-08] MEDS: FUROSEMIDE 40 MG/4 ML INJECTABLE VIAL IVPUSH SCH ×2 (06:26→13:02)
[2019-10-08 06:28] LABS: HEMATOCRIT 31.2 % (35.4-49); MCH 25.2 pg (25.7-33.7); MCHC 31.9 g/dl (32.0-35.9); MEAN CELL VOLUME 78.8 fl (80-96); MEAN PLT VOLUME 8.3 fl (7.5-11.1); PLATELET COUNT 390 K/MM3 (134-434); RBC 3.96 M/mm3 (4.00-5.60); RDW 18.2 % (11.9-15.9)
[2019-10-08 07:06] LABS: ALBUMIN 2.1 g/dl (3.4-5.0); BILIRUBIN,TOTAL 0.4 mg/dL (0.2-1); BLOOD UREA NITROGEN 40.9 mg/dL (7-18); CALCIUM 8.6 mg/dL (8.5-10.1); CREATININE 0.8 mg/dL (0.55-1.3); MAGNESIUM 1.9 mg/dL (1.8-2.4); PHOSPHOROUS 4.3 mg/dL (2.5-4.9); POTASSIUM 4.7 mmol/L (3.5-5.1); TOT PROT 5.6 g/dl (6.4-8.2)
[2019-10-08] MEDS: AMINO ACIDS/PROTEIN HYDROLYS 30 ML LIQUID.PKT PO SCH ×2 (08:15→17:09)
[2019-10-08] MEDS ORDERED: fentaNYL CITRATE 250 MCG/5 ML VIAL ONE (08:33)
[2019-10-08] MEDS: APIXABAN 5 MG TABLET PEG SCH ×2 (09:04→21:19)
[2019-10-08] MEDS: CHLORHEXIDINE GLUCONATE 0.12% 15ML CUP MM SCH ×2 (09:04→21:19)
[2019-10-08] MEDS: PANTOPRAZOLE SODIUM 40 MG VIAL IVPUSH SCH (09:06)
[2019-10-08] MEDS: MIDAZOLAM 100 MG in SODIUM CHLORIDE 100 ML IVPB SCH (09:06)
[2019-10-08] MEDS: INSULIN SLIDING SCALE (NOVOLOG) 1 VIAL SQ SCH ×2 (09:33→21:19)
[2019-10-08] MEDS: VANCOMYCIN 1 GRAM (PRE-DOCKED) 1,000 MG/250 ML BAG IVPB SCH (10:32)
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
--- NOTE | 2019-10-08 11:22 | PN ---
Teaching Attending Note Name of Resident: Yesenia Barrett ATTENDING PHYSICIAN STATEMENT I saw and evaluated the patient. I reviewed the resident's note and discussed the case with the resident. I agree with the resident's findings and plan as documented. SUBJECTIVE: Patient seen and examined in the ICU. Remains intubated and sedated. FiO2 required to be increased due to desaturation. Remains off NE drip for hemodynamic support. AC Mode of vent. PPlat : 28 OBJECTIVE: Intake & Output 10/05/19 10/06/19 10/07/19 10/08/19 23:59 23:59 23:59 23:59 Intake Total 2184.1 2772.6 2807.6 Output Total 1650 1950 1400 Balance 534.1 822.6 1407.6 Weight 258 lb 9.636 oz 265 lb 10.512 oz 261 lb 12.8 oz 266 lb 12.149 oz Last Vital Signs Temp Pulse Resp BP Pulse Ox 97.6 F 111 H 31 H 104/65 95 10/08/19 10:00 10/08/19 10:00 10/08/19 10:00 10/08/19 10:00 10/08/19 09:00 Active Medications Amino Acids (Prosource No Carb Liquid Pkt) 30 ml PO BID@0800,1730 [facility] Last Admin: 10/08/19 08:15 Dose: 30 ml Documented by: Apixaban (Eliquis -) 5 mg PEG BID [facility] Last Admin: 10/08/19 09:04 Dose: 5 mg Documented by: Chlorhexidine Gluconate (Hibiclens For Decolonization -) 1 applic TP HS [facility] Last Admin: 10/07/19 21:15 Dose: 1 applic Documented by: Chlorhexidine Gluconate (Peridex -) 15 ml MM BID [facility] Last Admin: 10/08/19 09:04 Dose: 15 ml Documented by: Diltiazem HCl (Cardizem -) 90 mg PO Q6HPO [facility] Last Admin: 10/08/19 06:25 Dose: 90 mg Documented by: Furosemide (Lasix Injection -) 40 mg IVPUSH BIDLASIX [facility] Last Admin: 10/08/19 06:26 Dose: 40 mg Documented by: Midazolam HCl 100 mg/ Sodium (Chloride) 100 mls @ 1 mls/hr IVPB TITR [facility]; Protocol Last Admin: 10/08/19 09:06 Dose: 10 mg/hr, 10 mls/hr Documented by: Propofol (Diprivan -) 1,000,000 mcg in 100 mls @ 8.165 mls/hr IVPB TITR ELISSA; Pr otocol Last Titration: 10/08/19 06:25 Dose: 10 mcg/kg/min, 8.165 mls/hr Documented by: Meropenem 1 gm/ Dextrose 100 mls @ 200 mls/hr IVPB Q8H-IV [facility] Last Admin: 10/08/19 09:04 Dose: 200 mls/hr Documented by: Vancomycin HCl (Vancomycin (Pre-Docked)) 1,000 mg in 250 mls @ 200 mls/hr IVPB Q24H [facility]; Protocol Last Admin: 10/08/19 10:32 Dose: 200 mls/hr Documented by: Fentanyl (Sublimaze Ivpb) 500 mcg in 100 mls @ 1 mls/hr IVPB TITR [facility]IS[facility]; Protocol Last Titration: 10/08/19 06:26 Dose: 100 mcg/hr, 20 mls/hr Documented by: Norepinephrine Bitartrate (Levophed Bag) 8,000 mcg in 500 mls @ 18.75 mls/hr IVPB TITR ELISSA; Protocol Last Titration: 10/08/19 06:26 Dose: 0 mcg/min, 0 mls/hr Documented by: Insulin Aspart (Novolog Vial Sliding Scale -) 1 vial SQ BID [facility]; Protocol Last Admin: 10/08/19 09:33 Dose: 4 units Documented by: Metoprolol Tartrate (Lopressor Injection -) 5 mg IVPUSH Q4H PRN PRN Reason: HYPERTENSION Last Admin: 10/08/19 06:27 Dose: 5 mg Documented by: Pantoprazole Sodium (Protonix Iv) 40 mg IVPUSH DAILY [facility] Last Admin: 10/08/19 09:06 Dose: 40 mg Documented by: Polyethylene Glycol (Miralax (For Daily Use) -) 17 gm NGT HS@2100 [facility] Last Admin: 10/07/19 21:15 Dose: 17 mg Documented by: Gen: intubated, sedated Heart: RRR Lung: scattered rhonchi Abd: soft, nontender Ext: +edema Laboratory Results - last 24 hr 10/07/19 10/08/19 10/08/19 21:40 05:00 05:00 WBC 9.0 RBC 3.96 L Hgb 10.0 L Hct 31.2 L MCV 78.8 L MCH 25.2 L MCHC 31.9 L RDW 18.2 H Plt Count 390 MPV 8.3 Sodium 133 L Potassium 4.7 Chloride 96 L Carbon Dioxide 33 H Anion Gap 5 L BUN 40.9 H Creatinine 0.8 Est GFR (CKD-EPI)AfAm 119.88 Est GFR (CKD-EPI)NonAf 103.43 POC Glucometer 139 Random Glucose 189 H Calcium 8.6 Phosphorus 4.3 Magnesium 1.9 Total Bilirubin 0.4 AST 17 ALT 19 Alkaline Phosphatase 210 H Total Protein 5.6 L Albumin 2.1 L 10/08/19 09:25 WBC RBC Hgb Hct MCV MCH MCHC RDW Plt Count MPV Sodium Potassium Chloride Carbon Dioxide Anion Gap BUN Creatinine Est GFR (CKD-EPI)AfAm Est GFR (CKD-EPI)NonAf POC Glucometer 211 Random Glucose Calcium Phosphorus Magnesium Total Bilirubin AST ALT Alkaline Phosphatase Total Protein Albumin ASSESSMENT AND PLAN: Acute Hypoxic and Hypercapneic Respiratory Failure UTI Pneumonia ARDS Septic Shock Acute on Chronic Diastolic Heart Failure Volume Overload Atrial Fibrillation/Flutter with RVR h/o COVID19 Sarcoidosis Morbid Obesity EMMY/OHS - ABX coverage - rate control: Cardiology evaluation - continue anticoagulation - Diuresis as tolerated - monitor urine output, creatinine - continue volume assist control - enteral feeds - DVT/GI prophylaxis - continue ICU monitoring May need Trach Dr Maya Critical care time spent in reviewing chart, evaluating patient and formulating plan 35 min
--- NOTE | 2019-10-08 11:52 | PN ---
Progress Note, Physician History of Present Illness: REMAINS ON VENTILATOR SEDATED NO ACUTE DISTRESS AFEBRILE OFF PRESSORS WBC WNL BC NO GROWTH URINE C/S (R) ENTEROBACTER SPUTUM ESBL, MRSA - Current Medication List Current Medications: Active Medications Amino Acids (Prosource No Carb Liquid Pkt) 30 ml PO BID@0800,1730 [facility] Last Admin: 10/08/19 08:15 Dose: 30 ml Documented by: Apixaban (Eliquis -) 5 mg PEG BID [facility] Last Admin: 10/08/19 09:04 Dose: 5 mg Documented by: Chlorhexidine Gluconate (Hibiclens For Decolonization -) 1 applic TP HS [facility] Last Admin: 10/07/19 21:15 Dose: 1 applic Documented by: Chlorhexidine Gluconate (Peridex -) 15 ml MM BID [facility] Last Admin: 10/08/19 09:04 Dose: 15 ml Documented by: Diltiazem HCl (Cardizem -) 90 mg PO Q6HPO [facility] Last Admin: 10/08/19 11:36 Dose: 90 mg Documented by: Furosemide (Lasix Injection -) 40 mg IVPUSH BIDLASIX [facility] Last Admin: 10/08/19 06:26 Dose: 40 mg Documented by: Midazolam HCl 100 mg/ Sodium (Chloride) 100 mls @ 1 mls/hr IVPB TITR [facility]; Protocol Last Admin: 10/08/19 09:06 Dose: 10 mg/hr, 10 mls/hr Documented by: Propofol (Diprivan -) 1,000,000 mcg in 100 mls @ 8.165 mls/hr IVPB TITR [facility]; Protocol Last Titration: 10/08/19 06:25 Dose: 10 mcg/kg/min, 8.165 mls/hr Documented by: Meropenem 1 gm/ Dextrose 100 mls @ 200 mls/hr IVPB Q8H-IV [facility] Last Admin: 10/08/19 09:04 Dose: 200 mls/hr Documented by: Vancomycin HCl (Vancomycin (Pre-Docked)) 1,000 mg in 250 mls @ 200 mls/hr IVPB Q24H [facility]; Protocol Last Admin: 10/08/19 10:32 Dose: 200 mls/hr Documented by: Fentanyl (Sublimaze Ivpb) 500 mcg in 100 mls @ 1 mls/hr IVPB TITR [facility]; Protocol Last Titration: 10/08/19 06:26 Dose: 100 mcg/hr, 20 mls/hr Documented by: Norepinephrine Bitartrate (Levophed Bag) 8,000 mcg in 500 mls @ 18.75 mls/hr IVPB TITR [facility]; Protocol Last Titration: 10/08/19 06:26 Dose: 0 mcg/min, 0 mls/hr Documented by: Insulin Aspart (Novolog Vial Sliding Scale -) 1 vial SQ BID [facility]; Protocol Last Admin: 10/08/19 09:33 Dose: 4 units Documented by: Metoprolol Tartrate (Lopressor Injection -) 5 mg IVPUSH Q4H PRN PRN Reason: HYPERTENSION Last Admin: 10/08/19 11:40 Dose: 5 mg Documented by: Pantoprazole Sodium (Protonix Iv) 40 mg IVPUSH DAILY [facility] Last Admin: 10/08/19 09:06 Dose: 40 mg Documented by: Polyethylene Glycol (Miralax (For Daily Use) -) 17 gm NGT HS@2100 [facility] Last Admin: 10/07/19 21:15 Dose: 17 mg Documented by: - Objective Vital Signs: Vital Signs Temperature 97.6 F 10/08/19 10:00 Pulse Rate 122 H 10/08/19 11:40 Respiratory Rate 31 H 10/08/19 10:00 Blood Pressure 104/65 10/08/19 10:00 O2 Sat by Pulse Oximetry (%) 95 10/08/19 09:00 Constitutional: Yes: No Distress, Obese Cardiovascular: Yes: Regular Rate and Rhythm, S1, S2 Respiratory: Yes: Mechanically Ventilated Gastrointestinal: Yes: Normal Bowel Sounds, Soft, Abdomen, Obese. No: Tenderness Edema: No Labs: CBC, BMP 10/08/19 05:00 10/08/19 05:00 INR, PTT INR 1.02 (0.83-1.09) 09/27/19 05:20 Assessment/Plan ACUTE RESP FAILURE + SPUTUM MRSA, ESBL PNEUMONIA SEPSIS R/O SEPTIC SHOCK UTI S/P CARDIOPULMONARY ARREST CONTINUE MEROPENEM/VANCOMYCIN VENTILATORY/ HEMODYNAMIC SUPPORT CONTACT PRECAUTIONS
--- NOTE | 2019-10-08 14:20 | PN ---
Physical Exam: SUBJECTIVE: Patient seen and examined Patient was seen this morning, remains intubated and sedated. Patient remains tachycardic with persistent atrial flutter on ekg. OBJECTIVE: Vital Signs Period Temp Pulse Resp BP Sys/[place] Pulse Ox Last 24 Hr 97.3 F-98.5 F 105-144 18-31 85-115/47-76 90-98 Ventilator settings: RR 18, TV 390, FiO2 100%, PEEP 10, mode assist control GENERAL: Intubated and sedated HEAD: Normal with no signs of trauma. LUNGS: Breath sounds from ventilator are clear to auscultation bilaterally, no wheezes, no crackles. HEART: tachycardic and irregular, S1, S2 without murmur, rub or gallop. ABDOMEN: distended and mildly rigid on palpation EXTREMITIES: warm, 1+ edema on feet. SKIN: Warm, no rashes or lesions noted Laboratory Results - last 24 hr 10/07/19 10/08/19 10/08/19 21:40 05:00 05:00 WBC 9.0 RBC 3.96 L Hgb 10.0 L Hct 31.2 L MCV 78.8 L MCH 25.2 L MCHC 31.9 L RDW 18.2 H Plt Count 390 MPV 8.3 Sodium 133 L Potassium 4.7 Chloride 96 L Carbon Dioxide 33 H Anion Gap 5 L BUN 40.9 H Creatinine 0.8 Est GFR (CKD-EPI)AfAm 119.88 Est GFR (CKD-EPI)NonAf 103.43 POC Glucometer 139 Random Glucose 189 H Calcium 8.6 Phosphorus 4.3 Magnesium 1.9 Total Bilirubin 0.4 AST 17 ALT 19 Alkaline Phosphatase 210 H Total Protein 5.6 L Albumin 2.1 L 10/08/19 09:25 WBC RBC Hgb Hct MCV MCH MCHC RDW Plt Count MPV Sodium Potassium Chloride Carbon Dioxide Anion Gap BUN Creatinine Est GFR (CKD-EPI)AfAm Est GFR (CKD-EPI)NonAf POC Glucometer 211 Random Glucose Calcium Phosphorus Magnesium Total Bilirubin AST ALT Alkaline Phosphatase Total Protein Albumin Active Medications Generic Name Dose Route Start Last Admin Trade Name Freq PRN Reason Stop Dose Admin Amino Acids 30 ml 09/29/19 17:30 10/08/19 08:15 Prosource No Carb Liquid Pkt PO 30 ml BID@0800,1730 [facility] Administration Apixaban 5 mg 09/27/19 22:00 10/08/19 09:04 Eliquis - PEG 5 mg BID [facility] Administration Chlorhexidine Gluconate 1 applic 09/27/19 22:00 10/07/19 21:15 Hibiclens For Decolonization - TP 1 applic HS [facility] Administration Chlorhexidine Gluconate 15 ml 10/05/19 22:00 10/08/19 09:04 Peridex - MM 15 ml BID [facility] Administration Diltiazem HCl 90 mg 10/07/19 11:32 10/08/19 11:36 Cardizem - PO 90 mg Q6HPO [facility] Administration Furosemide 40 mg 10/01/19 14:00 10/08/19 13:02 Lasix Injection - IVPUSH 40 mg BIDLASIX [facility] Administration Midazolam HCl 100 mg/ Sodium 100 mls @ 1 mls/hr 09/27/19 09:00 10/08/19 09:06 Chloride IVPB 10 mg/hr TITR [facility] 10 mls/hr Administration Protocol 1 MG/HR Propofol 1,000,000 mcg in 100 mls @ 8.165 mls/hr 09/27/19 13:00 10/08/19 06:25 Diprivan - IVPB 10 mcg/kg/min TITR [facility] 8.165 mls/hr Titration Protocol 10 MCG/KG/MIN Meropenem 1 gm/ Dextrose 100 mls @ 200 mls/hr 09/28/19 12:00 10/08/19 09:04 IVPB 200 mls/hr Q8H-IV [facility] Administration Vancomycin HCl 1,000 mg in 250 mls @ 200 mls/hr 10/04/19 11:00 10/08/19 10:32 Vancomycin (Pre-Docked) IVPB 200 mls/hr Q24H [facility] Administration Protocol Fentanyl 500 mcg in 100 mls @ 1 mls/hr 10/07/19 17:45 10/08/19 06:26 Sublimaze Ivpb IVPB 100 mcg/hr TITR [facility] 20 mls/hr Titration Protocol 5 MCG/HR Norepinephrine Bitartrate 8,000 mcg in 500 mls @ 18.75 mls/hr 10/07/19 19:15 10/08/19 06:26 Levophed Bag IVPB 0 mcg/min TITR [facility] 0 mls/hr Titration Protocol 5 MCG/MIN Insulin Aspart 1 vial 10/05/19 22:00 10/08/19 09:33 Novolog Vial Sliding Scale - SQ 4 units BID [facility] Administration Protocol Metoprolol Tartrate 5 mg 10/07/19 23:27 10/08/19 11:40 Lopressor Injection - IVPUSH 5 mg Q4H PRN Administration HYPERTENSION Pantoprazole Sodium 40 mg 09/29/19 11:00 10/08/19 09:06 Protonix Iv IVPUSH 40 mg DAILY [facility] Administration Polyethylene Glycol 17 gm 10/03/19 21:00 10/07/19 21:15 Miralax (For Daily Use) - NGT 17 mg HS@2100 [facility] Administration ASSESSMENT/PLAN: 53yo M with PMHx of CHF, afib/flutter on eliquis, sarcoidosis, guillan barre, morbid obesity, currently intubated and sedated with persistent aflutter and tachycardia. #Neuro - currently sedated with fentanyl 100, midazolam 10 and propofol 5 #Cardio h/o afib/aflutter, CHF exacerbation - continue cardizem PO 90 q6h, 5mg lopressor IV push Q4h PRN, eliquis - Per cardiology recs, added Lopressor 25mg PO BID - stopped furosemide 40mg IVpush BID - started home atorvastatin #pulm acute hypoxic hypercapnic respiratory failure secondary to CHF exacerbation - patient remains intubated - will attempt sedation vacation when vent settings allow - too unstable today #ID sputum growing ESBL and MRSA, urine culture growing enterobacter - per ID recs: continue meropenem and vancomycin - vanc trough on 10/04 was high at 12.2 - repeat vanc trough tomorrow then adjust dose accordingly #Endo - BGM ACHS - continue SS #heme anemia, at baseline - monitor Hgb daily #GI - stool softners with miralax #FEN - promote tube feeds (high protein, low kcal) #PPx - DVT: eliquis - GI: pentoprazole #LTD - NG tube 10/07 - needed replacement today, placement followed up with CXR - central line RIJ 10/05 - A line 10/04 - ortiz catheter was placed on 09/26 Dispo - continue to monitor in ICU Visit type - Emergency Visit Emergency Visit: No - New Patient This patient is new to me today: Yes Date on this admission: 10/08/19 - Critical Care Critical Care patient: Yes Total Critical Care Time (in minutes): 45 Critical Care Statement: The care of this patient involved high complexity decision making to prevent further life threatening deterioration of the patient's condition and/or to evaluate & treat vital organ system(s) failure or risk of failure. ATTENDING PHYSICIAN STATEMENT I saw and evaluated the patient. I reviewed the resident's note and discussed the case with the resident. I agree with the resident's findings and plan as documented. SUBJECTIVE: OBJECTIVE: ASSESSMENT AND PLAN:
[2019-10-08] MEDS: METOPROLOL TARTRATE 25 MG TABLET (FP) PO SCH ×2 (15:34→21:19)
[2019-10-08] MEDS: FENTANYL NS IVPB 500 MCG/100 ML BAG IVPB SCH (21:18)
[2019-10-08] MEDS: POLYETHYLENE GLYCOL 3350 119 GM BTL NGT SCH (21:18)
[2019-10-08] MEDS: NOREPINEPHRINE BITARTRATE 8,000 MCG/500 ML BAG IVPB SCH (21:18)
[2019-10-08] MEDS: ATORVASTATIN CA 40 MG TABLET (FP) PO SCH (21:19)
[2019-10-08] MEDS: CHLORHEXIDINE GLUCONATE 4% CLEANSER FOR DECOLONIZATION TP SCH (21:19)
[2019-10-09] MEDS: dilTIAZem HCL 60 MG TABLET PO SCH ×4 (00:15→17:06)
[2019-10-09] MEDS ORDERED: MIDAZOLAM IN 0.9 % SOD.CHLORID 1 MG/1 ML PLAST..BAG ONE ×3 (02:40→20:00)
[2019-10-09] MEDS ORDERED: MEROPENEM 1 GM VIAL (RESTRICTED TO ID) IVPB ONE ×3 (03:23→16:57)
[2019-10-09] MEDS ORDERED: DEXTROSE 5%-WATER 100 ML IVPB ONE ×3 (03:23→16:57)
[2019-10-09] MEDS: SCOPOLAMINE HYDROBROMIDE 1 PATCH PATCH.TD72 TD SCH (03:27)
[2019-10-09] MEDS: MEROPENEM 1 GM in DEXTROSE 5%-WATER 100 ML IVPB SCH ×3 (03:27→17:06)
[2019-10-09 07:00] LABS: ARTERIAL BLD GAS O2 SATURATION 96.8 mmHg (95-98); ARTERIAL BLOOD GAS BASE EXCESS 4.6 mmol/L (-2-2); ARTERIAL BLOOD GAS PO2 93.1 mmHg (80-100); ARTERIAL BLOOD GAS pH 7.371 (7.350-7.450)
[2019-10-09 07:09] LABS: ALLENS TEST POSITIVE
[2019-10-09 07:11] LABS: VENT MODE VOL A/C; VENT RATE 18
[2019-10-09 07:42] LABS: BILIRUBIN,TOTAL 0.4 mg/dL (0.2-1); BLOOD UREA NITROGEN 41.5 mg/dL (7-18); CALCIUM 8.6 mg/dL (8.5-10.1); CREATININE 0.8 mg/dL (0.55-1.3); PHOSPHOROUS 3.4 mg/dL (2.5-4.9); POTASSIUM 4.6 mmol/L (3.5-5.1); TOT PROT 5.3 g/dl (6.4-8.2)
[2019-10-09 07:45] LABS: BASO % 0.5 % (0-2.0); EOS % 0.2 % (0-4.5); HEMATOCRIT 29.4 % (35.4-49); HEMOGLOBIN 9.4 GM/dL (11.7-16.9); LYMPH % 4.2 % (8-40); MCH 25.4 pg (25.7-33.7); MCHC 31.9 g/dl (32.0-35.9); MEAN CELL VOLUME 79.9 fl (80-96); MEAN PLT VOLUME 8.5 fl (7.5-11.1); MONO % 10.9 % (3.8-10.2); NEUT % 84.2 % (42.8-82.8); PLATELET COUNT 412 K/MM3 (134-434); RBC 3.68 M/mm3 (4.00-5.60); WHITE BLOOD COUNT 8.4 K/mm3 (4.0-10.0)
[2019-10-09] MEDS: AMINO ACIDS/PROTEIN HYDROLYS 30 ML LIQUID.PKT PO SCH ×2 (09:02→17:06)
[2019-10-09] MEDS: METOPROLOL TARTRATE 25 MG TABLET (FP) PO SCH ×2 (09:02→21:00)
[2019-10-09] MEDS: APIXABAN 5 MG TABLET PEG SCH ×2 (09:02→23:08)
[2019-10-09] MEDS: PANTOPRAZOLE SODIUM 40 MG VIAL IVPUSH SCH (09:02)
[2019-10-09] MEDS: CHLORHEXIDINE GLUCONATE 0.12% 15ML CUP MM SCH ×2 (09:02→23:09)
--- NOTE | 2019-10-09 10:21 | PN ---
Progress Note, Physician History of Present Illness: He remains remains intubated and sedated on AC Mode of vent, history provided by chart review. Patient remains in rate-controlled persistent atrial flutter, back on Levophed gtt. - Current Medication List Current Medications: Active Medications Amino Acids (Prosource No Carb Liquid Pkt) 30 ml PO BID@0800,1730 [facility] Last Admin: 10/08/19 17:09 Dose: 30 ml Documented by: Apixaban (Eliquis -) 5 mg PEG BID [facility] Last Admin: 10/08/19 21:19 Dose: 5 mg Documented by: Atorvastatin Calcium (Lipitor -) 40 mg PO HS [facility] Last Admin: 10/08/19 21:19 Dose: 40 mg Documented by: Chlorhexidine Gluconate (Hibiclens For Decolonization -) 1 applic TP [facility] Last Admin: 10/08/19 21:19 Dose: 1 applic Documented by: Chlorhexidine Gluconate (Peridex -) 15 ml MM BID [facility] Last Admin: 10/08/19 21:19 Dose: 15 ml Documented by: Diltiazem HCl (Cardizem -) 90 mg PO Q6HPO [facility] Last Admin: 10/09/19 06:06 Dose: 90 mg Documented by: Midazolam HCl 100 mg/ Sodium (Chloride) 100 mls @ 1 mls/hr IVPB TITR [facility]; Protocol Last Admin: 10/08/19 09:06 Dose: 10 mg/hr, 10 mls/hr Documented by: Propofol (Diprivan -) 1,000,000 mcg in 100 mls @ 8.165 mls/hr IVPB TITR [facility]; Protocol Last Titration: 10/09/19 07:12 Dose: 20 mcg/kg/min, 16.329 mls/hr Documented by: Meropenem 1 gm/ Dextrose 100 mls @ 200 mls/hr IVPB Q8H-IV [facility] Last Admin: 10/09/19 03:27 Dose: 200 mls/hr Documented by: Vancomycin HCl (Vancomycin (Pre-Docked)) 1,000 mg in 250 mls @ 200 mls/hr IVPB Q24H [facility]; Protocol Last Admin: 10/08/19 10:32 Dose: 200 mls/hr Documented by: Fentanyl (Sublimaze Ivpb) 500 mcg in 100 mls @ 1 mls/hr IVPB TITR [facility]; Protocol Last Admin: 10/08/19 21:18 Dose: 100 mcg/hr, 20 mls/hr Documented by: Norepinephrine Bitartrate (Levophed Bag) 8,000 mcg in 500 mls @ 18.75 mls/hr IVPB TITR [facility]; Protocol Last Titration: 10/09/19 07:13 Dose: 3 mcg/min, 11.25 mls/hr Documented by: Insulin Aspart (Novolog Vial Sliding Scale -) 1 vial SQ BID [facility]; Protocol Last Admin: 10/08/19 21:19 Dose: 2 units Documented by: Metoprolol Tartrate (Lopressor Injection -) 5 mg IVPUSH Q4H PRN PRN Reason: HYPERTENSION Last Admin: 10/08/19 11:40 Dose: 5 mg Documented by: Metoprolol Tartrate (Lopressor -) 25 mg PO BID [facility] Last Admin: 10/08/19 21:19 Dose: 25 mg Documented by: Pantoprazole Sodium (Protonix Iv) 40 mg IVPUSH DAILY [facility] Last Admin: 10/08/19 09:06 Dose: 40 mg Documented by: Polyethylene Glycol (Miralax (For Daily Use) -) 17 gm NGT HS@2100 [facility] Last Admin: 10/08/19 21:18 Dose: 17 mg Documented by: Scopolamine HBr (Transderm-Scop -) 1 patch TD Q72H [facility] Last Admin: 10/09/19 03:27 Dose: 1 patch Documented by: - Objective Vital Signs: Vital Signs Temperature 98.1 F 10/09/19 06:00 Pulse Rate 97 H 10/09/19 08:26 Respiratory Rate 18 10/09/19 08:26 Blood Pressure 107/63 10/09/19 08:00 O2 Sat by Pulse Oximetry (%) 98 10/09/19 08:26 Constitutional: Yes: Other (Sedated and intubated) Cardiovascular: Yes: Tachycardia, Pulse Irregular Respiratory: Yes: Intubated, Mechanically Ventilated, Rhonchi Gastrointestinal: Yes: Normal Bowel Sounds, Soft Genitourinary: Yes: Andrews Present Edema: Yes Edema: LLE: Trace, RLE: Trace Labs: CBC, BMP 10/09/19 05:00 10/09/19 05:00 INR, PTT INR 1.02 (0.83-1.09) 09/27/19 05:20 - ....Imaging Chest X-ray: Report Reviewed (LLL consolidation with small bilateral effusions) EKG: Report Reviewed (Tele: [facility] @ 108) Problem List - Problems (1) Acute respiratory failure with hypoxia and hypercapnia Code(s): J96.01 - ACUTE RESPIRATORY FAILURE WITH HYPOXIA; J96.02 - ACUTE RESPIRATORY FAILURE WITH HYPERCAPNIA (2) Acute decompensated heart failure Code(s): I50.9 - HEART FAILURE, UNSPECIFIED (3) Acute hypercapnic respiratory failure due to obstructive sleep apnea Code(s): J96.02 - ACUTE RESPIRATORY FAILURE WITH HYPERCAPNIA; G47.33 - OBSTRUCTIVE SLEEP APNEA (ADULT) (PEDIATRIC) (4) Atrial fibrillation and flutter Code(s): I48.91 - UNSPECIFIED ATRIAL FIBRILLATION; I48.92 - UNSPECIFIED ATRIAL FLUTTER (5) Sarcoidosis of other sites Code(s): D86.89 - SARCOIDOSIS OF OTHER SITES (6) Sleep apnea Code(s): G47.30 - SLEEP APNEA, UNSPECIFIED Qualifiers: Sleep apnea type: obstructive Qualified Code(s): G47.33 - Obstructive sleep apnea (adult) (pediatric) (7) Type 2 diabetes mellitus Code(s): E11.9 - TYPE 2 DIABETES MELLITUS WITHOUT COMPLICATIONS Qualifiers: Diabetes mellitus terminal makeup operator insulin use: without alf use Diabetes mellitus complication detail: with chronic kidney disease Chronic kidney disease stage: stage 2 (mild) Qualified Code(s): E11.22 - Type 2 diabetes mellitus with diabetic chronic kidney disease; N18.2 - Chronic kidney disease, stage 2 (mild) Assessment/Plan 05/01/2019 Normal LV and RV size and fxn, tr TR 03/14/2019 Normal LV size and fxn, no thrombus ADEEL, mild-mod dilated and HK RV, tr MR, mild-mod TR, tr LA, trace pericardial effusion 1. Acute hypoxic and hypercapneic respiratory failure currently on mechanical ventilation 2. Pneumonia, post septic shock, ARDS, UTI 3. Sarcoidosis confirmed by skin biopsy 4. OSAS/OHS nonadherent to CPAP 5. Persistent Aflutter/Afib rate-controlled 6. Acute on chronic diastolic heart failure 7. Acute on CKD with hyperkalemia 8. Type 2 DM 9. Anemia 10. H/o COVID 19 PLAN: 1. Vent wean, SBT as tolerated, bronchodilator as needed, abx course per C&S, and enteral feeds, may need Trach 2. IV diuresis with monitor diuretic response, renal fxn and electrolytes 3. Rate-control with oral Cardizem 90 mg QID, add Lopressor 25 bid for further rate control as hemodynamics tolerate, IV Cardizem and Lopressor as needed and continue Eliquis 5 mg BID 4. Wean pressors for MAP>65 mmHg 5. Hold lisinopril 10 mg QD pending hemodynamic stability and continue Lipitor 40 QD 6. Follow up with Dr. Genaro Davila (cardiology at [place]) as outpatient. Consider cardiac PET or MRI to exclude cardiac involvement in sarcoidosis as outpatient
[2019-10-09] MEDS: INSULIN SLIDING SCALE (NOVOLOG) 1 VIAL SQ SCH ×2 (11:16→23:09)
--- NOTE | 2019-10-09 12:24 | PN ---
Teaching Attending Note Name of Resident: Yesenia Barrett ATTENDING PHYSICIAN STATEMENT I saw and evaluated the patient. I reviewed the resident's note and discussed the case with the resident. I agree with the resident's findings and plan as documented. SUBJECTIVE: Patient seen and examined in the ICU. Remains intubated and sedated. Remains off NE drip for hemodynamic support. AC Mode of vent. PPlat : 28 OBJECTIVE: Intake & Output 10/06/19 10/07/19 10/08/19 10/09/19 23:59 23:59 23:59 23:59 Intake Total 2772.6 2807.6 1414.4 830.6 Output Total 1950 1400 600 900 Balance 822.6 1407.6 814.4 -69.4 Weight 265 lb 10.512 oz 261 lb 12.8 oz 266 lb 12.149 oz 266 lb 8 oz Last Vital Signs Temp Pulse Resp BP Pulse Ox 97.7 F 98 H 18 107/69 94 L 10/09/19 10:00 10/09/19 10:00 10/09/19 11:49 10/09/19 10:00 10/09/19 11:49 Active Medications Amino Acids (Prosource No Carb Liquid Pkt) 30 ml PO BID@0800,1730 [facility] Last Admin: 10/09/19 09:02 Dose: 30 ml Documented by: Apixaban (Eliquis -) 5 mg PEG BID [facility] Last Admin: 10/09/19 09:02 Dose: 5 mg Documented by: Atorvastatin Calcium (Lipitor -) 40 mg PO [facility] Last Admin: 10/08/19 21:19 Dose: 40 mg Documented by: Chlorhexidine Gluconate (Hibiclens For Decolonization -) 1 applic TP [facility] Last Admin: 10/08/19 21:19 Dose: 1 applic Documented by: Chlorhexidine Gluconate (Peridex -) 15 ml MM BID [facility] Last Admin: 10/09/19 09:02 Dose: 15 ml Documented by: Diltiazem HCl (Cardizem -) 90 mg PO Q6HPO [facility] Last Admin: 10/09/19 06:06 Dose: 90 mg Documented by: Midazolam HCl 100 mg/ Sodium (Chloride) 100 mls @ 1 mls/hr IVPB TITR [facility]; Protocol Last Admin: 10/08/19 09:06 Dose: 10 mg/hr, 10 mls/hr Documented by: Propofol (Diprivan -) 1,000,000 mcg in 100 mls @ 8.165 mls/hr IVPB TITR [facility]; Protocol Last Titration: 10/09/19 07:12 Dose: 20 mcg/kg/min, 16.329 mls/hr Documented by: Meropenem 1 gm/ Dextrose 100 mls @ 200 mls/hr IVPB Q8H-IV [facility] Last Admin: 10/09/19 09:02 Dose: 200 mls/hr Documented by: Vancomycin HCl (Vancomycin (Pre-Docked)) 1,000 mg in 250 mls @ 200 mls/hr IVPB Q24H [facility]; Protocol Last Admin: 10/08/19 10:32 Dose: 200 mls/hr Documented by: Fentanyl (Sublimaze Ivpb) 500 mcg in 100 mls @ 1 mls/hr IVPB TITR [facility]; Protocol Last Admin: 10/08/19 21:18 Dose: 100 mcg/hr, 20 mls/hr Documented by: Norepinephrine Bitartrate (Levophed Bag) 8,000 mcg in 500 mls @ 18.75 mls/hr IVPB TITR [facility]; Protocol Last Titration: 10/09/19 07:13 Dose: 3 mcg/min, 11.25 mls/hr Documented by: Insulin Aspart (Novolog Vial Sliding Scale -) 1 vial SQ BID [facility]; Protocol Last Admin: 10/09/19 11:16 Dose: 4 units Documented by: Metoprolol Tartrate (Lopressor Injection -) 5 mg IVPUSH Q4H PRN PRN Reason: HYPERTENSION Last Admin: 10/08/19 11:40 Dose: 5 mg Documented by: Metoprolol Tartrate (Lopressor -) 25 mg PO BID [facility] Last Admin: 10/09/19 09:02 Dose: 25 mg Documented by: Pantoprazole Sodium (Protonix Iv) 40 mg IVPUSH DAILY [facility] Last Admin: 10/09/19 09:02 Dose: 40 mg Documented by: Polyethylene Glycol (Miralax (For Daily Use) -) 17 gm NGT HS@2100 [facility] Last Admin: 10/08/19 21:18 Dose: 17 mg Documented by: Scopolamine HBr (Transderm-Scop -) 1 patch TD Q72H [facility] Last Admin: 10/09/19 03:27 Dose: 1 patch Documented by: Gen: intubated, sedated Heart: RRR Lung: scattered rhonchi Abd: soft, nontender Ext: +edema Laboratory Results - last 24 hr 10/08/19 10/09/19 10/09/19 21:15 05:00 05:00 WBC 8.4 RBC 3.68 L Hgb 9.4 L Hct 29.4 L MCV 79.9 L MCH 25.4 L MCHC 31.9 L RDW 18.0 H Plt Count 412 MPV 8.5 Absolute Neuts (auto) 7.1 Neutrophils % 84.2 H Lymphocytes % 4.2 L D Monocytes % 10.9 H Eosinophils % 0.2 Basophils % 0.5 Nucleated RBC % 0 Anticoagulation Therapy Puncture Site Patient Temperature ABG pH ABG pCO2 ABG pO2 ABG HCO3 ABG O2 Sat (Measured) ABG O2 Content ABG Base Excess Adrian Test Patient On Oxygen O2 Delivery Device Oxygen Flow Rate Vent Mode Vent Rate Mechanical Rate PEEP Pressure Support Vent Sodium 136 Potassium 4.6 Chloride 97 L Carbon Dioxide 31 Anion Gap 8 BUN 41.5 H Creatinine 0.8 Est GFR (CKD-EPI)AfAm 119.88 Est GFR (CKD-EPI)NonAf 103.43 POC Glucometer 166 Random Glucose 180 H Calcium 8.6 Phosphorus 3.4 Magnesium 2.0 Total Bilirubin 0.4 AST 15 ALT 17 Alkaline Phosphatase 183 H Total Protein 5.3 L Albumin 2.0 L Vancomycin Pre-Dose 10/09/19 10/09/19 10/09/19 05:21 06:00 10:00 WBC RBC Hgb Hct MCV MCH MCHC RDW Plt Count MPV Absolute Neuts (auto) Neutrophils % Lymphocytes % Monocytes % Eosinophils % Basophils % Nucleated RBC % Anticoagulation Therapy No Result Required. Puncture Site Arterial line Patient Temperature No Result Required. ABG pH 7.371 ABG pCO2 54.80 H ABG pO2 93.1 ABG HCO3 31.0 H ABG O2 Sat (Measured) 96.8 ABG O2 Content No Result Required. ABG Base Excess 4.6 H Adrian Test Positive Patient On Oxygen Yes O2 Delivery Device Vent Oxygen Flow Rate 90% Vent Mode Vol a/c Vent Rate 18 Mechanical Rate No Result Required. PEEP 10.0 Pressure Support Vent 390 Sodium Potassium Chloride Carbon Dioxide Anion Gap BUN Creatinine Est GFR (CKD-EPI)AfAm Est GFR (CKD-EPI)NonAf POC Glucometer 182 Random Glucose Calcium Phosphorus Magnesium Total Bilirubin AST ALT Alkaline Phosphatase Total Protein Albumin Vancomycin Pre-Dose 8.4 10/09/19 11:06 WBC RBC Hgb Hct MCV MCH MCHC RDW Plt Count MPV Absolute Neuts (auto) Neutrophils % Lymphocytes % Monocytes % Eosinophils % Basophils % Nucleated RBC % Anticoagulation Therapy Puncture Site Patient Temperature ABG pH ABG pCO2 ABG pO2 ABG HCO3 ABG O2 Sat (Measured) ABG O2 Content ABG Base Excess Adrian Test Patient On Oxygen O2 Delivery Device Oxygen Flow Rate Vent Mode Vent Rate Mechanical Rate PEEP Pressure Support Vent Sodium Potassium Chloride Carbon Dioxide Anion Gap BUN Creatinine Est GFR (CKD-EPI)AfAm Est GFR (CKD-EPI)NonAf POC Glucometer 202 Random Glucose Calcium Phosphorus Magnesium Total Bilirubin AST ALT Alkaline Phosphatase Total Protein Albumin Vancomycin Pre-Dose ASSESSMENT AND PLAN: Acute Hypoxic and Hypercapneic Respiratory Failure UTI Pneumonia ARDS Septic Shock Acute on Chronic Diastolic Heart Failure Volume Overload Atrial Fibrillation/Flutter with RVR h/o COVID19 Sarcoidosis Morbid Obesity EMMY/OHS - ABX coverage - rate control - continue anticoagulation - monitor urine output, creatinine - continue volume assist control - enteral feeds - DVT/GI prophylaxis - continue ICU monitoring May need Trach Dr Maya Critical care time spent in reviewing chart, evaluating patient and formulating plan 35 min
[2019-10-09] MEDS: MIDAZOLAM 100 MG in SODIUM CHLORIDE 100 ML IVPB SCH (13:01)
[2019-10-09] MEDS: VANCOMYCIN 1 GRAM (PRE-DOCKED) 1,000 MG/250 ML BAG IVPB SCH (13:01)
[2019-10-09] MEDS: FENTANYL NS IVPB 500 MCG/100 ML BAG IVPB SCH (14:00)
[2019-10-09] MEDS ORDERED: PT OWN MED DRAWER 7, Y5N ONE ×2 (14:27→20:01)
--- NOTE | 2019-10-09 15:05 | PN ---
Physical Exam: SUBJECTIVE: Patient seen and examined, no changes observed, patient is rate controlled with persistent atrial flutter. OBJECTIVE: Vital Signs Period Temp Pulse Resp BP Sys/[place] Pulse Ox Last 24 Hr 97.7 F-98.5 F 94-108 18-18 84-133/55-101 94-99 GENERAL: Intubated and sedated HEAD: Normal with no signs of trauma. LUNGS: Breath sounds from ventilator are clear to auscultation bilaterally, no wheezes, no crackles. HEART: regular rate and irregular rhythm, S1, S2 without murmur, rub or gallop. ABDOMEN: distended and mildly rigid on palpation, no audible BS EXTREMITIES: warm, 1+ edema on feet. SKIN: Warm, no rashes or lesions noted SKIN: Warm, dry, normal turgor, no rashes or lesions noted Laboratory Results - last 24 hr 10/08/19 10/09/19 10/09/19 21:15 05:00 05:00 WBC 8.4 RBC 3.68 L Hgb 9.4 L Hct 29.4 L MCV 79.9 L MCH 25.4 L MCHC 31.9 L RDW 18.0 H Plt Count 412 MPV 8.5 Absolute Neuts (auto) 7.1 Neutrophils % 84.2 H Lymphocytes % 4.2 L D Monocytes % 10.9 H Eosinophils % 0.2 Basophils % 0.5 Nucleated RBC % 0 Anticoagulation Therapy Puncture Site Patient Temperature ABG pH ABG pCO2 ABG pO2 ABG HCO3 ABG O2 Sat (Measured) ABG O2 Content ABG Base Excess Adrian Test Patient On Oxygen O2 Delivery Device Oxygen Flow Rate Vent Mode Vent Rate Mechanical Rate PEEP Pressure Support Vent Sodium 136 Potassium 4.6 Chloride 97 L Carbon Dioxide 31 Anion Gap 8 BUN 41.5 H Creatinine 0.8 Est GFR (CKD-EPI)AfAm 119.88 Est GFR (CKD-EPI)NonAf 103.43 POC Glucometer 166 Random Glucose 180 H Calcium 8.6 Phosphorus 3.4 Magnesium 2.0 Total Bilirubin 0.4 AST 15 ALT 17 Alkaline Phosphatase 183 H Total Protein 5.3 L Albumin 2.0 L Vancomycin Pre-Dose 10/09/19 10/09/19 10/09/19 05:21 06:00 10:00 WBC RBC Hgb Hct MCV MCH MCHC RDW Plt Count MPV Absolute Neuts (auto) Neutrophils % Lymphocytes % Monocytes % Eosinophils % Basophils % Nucleated RBC % Anticoagulation Therapy No Result Required. Puncture Site Arterial line Patient Temperature No Result Required. ABG pH 7.371 ABG pCO2 54.80 H ABG pO2 93.1 ABG HCO3 31.0 H ABG O2 Sat (Measured) 96.8 ABG O2 Content No Result Required. ABG Base Excess 4.6 H Adrian Test Positive Patient On Oxygen Yes O2 Delivery Device Vent Oxygen Flow Rate 90% Vent Mode Vol a/c Vent Rate 18 Mechanical Rate No Result Required. PEEP 10.0 Pressure Support Vent 390 Sodium Potassium Chloride Carbon Dioxide Anion Gap BUN Creatinine Est GFR (CKD-EPI)AfAm Est GFR (CKD-EPI)NonAf POC Glucometer 182 Random Glucose Calcium Phosphorus Magnesium Total Bilirubin AST ALT Alkaline Phosphatase Total Protein Albumin Vancomycin Pre-Dose 8.4 10/09/19 11:06 WBC RBC Hgb Hct MCV MCH MCHC RDW Plt Count MPV Absolute Neuts (auto) Neutrophils % Lymphocytes % Monocytes % Eosinophils % Basophils % Nucleated RBC % Anticoagulation Therapy Puncture Site Patient Temperature ABG pH ABG pCO2 ABG pO2 ABG HCO3 ABG O2 Sat (Measured) ABG O2 Content ABG Base Excess Adrian Test Patient On Oxygen O2 Delivery Device Oxygen Flow Rate Vent Mode Vent Rate Mechanical Rate PEEP Pressure Support Vent Sodium Potassium Chloride Carbon Dioxide Anion Gap BUN Creatinine Est GFR (CKD-EPI)AfAm Est GFR (CKD-EPI)NonAf POC Glucometer 202 Random Glucose Calcium Phosphorus Magnesium Total Bilirubin AST ALT Alkaline Phosphatase Total Protein Albumin Vancomycin Pre-Dose Active Medications Generic Name Dose Route Start Last Admin Trade Name Freq PRN Reason Stop Dose Admin Amino Acids 30 ml 09/29/19 17:30 10/09/19 09:02 Prosource No Carb Liquid Pkt PO 30 ml BID@0800,1730 [facility] Administration Apixaban 5 mg 09/27/19 22:00 10/09/19 09:02 Eliquis - PEG 5 mg BID [facility] Administration Atorvastatin Calcium 40 mg 10/08/19 22:00 10/08/19 21:19 Lipitor - PO 40 mg HS [facility] Administration Chlorhexidine Gluconate 1 applic 09/27/19 22:00 10/08/19 21:19 Hibiclens For Decolonization - TP 1 applic HS [facility] Administration Chlorhexidine Gluconate 15 ml 10/05/19 22:00 10/09/19 09:02 Peridex - MM 15 ml BID [facility] Administration Diltiazem HCl 90 mg 10/07/19 11:32 10/09/19 06:06 Cardizem - PO 90 mg Q6HPO [facility] Administration Midazolam HCl 100 mg/ Sodium 100 mls @ 1 mls/hr 09/27/19 09:00 10/09/19 13:01 Chloride IVPB 10 mg/hr TITR [facility] 10 mls/hr Administration Protocol 1 MG/HR Propofol 1,000,000 mcg in 100 mls @ 8.165 mls/hr 09/27/19 13:00 10/09/19 07:12 Diprivan - IVPB 20 mcg/kg/min TITR [facility] 16.329 mls/hr Titration Protocol 10 MCG/KG/MIN Meropenem 1 gm/ Dextrose 100 mls @ 200 mls/hr 09/28/19 12:00 10/09/19 09:02 IVPB 200 mls/hr Q8H-IV [facility] Administration Vancomycin HCl 1,000 mg in 250 mls @ 200 mls/hr 10/04/19 11:00 10/09/19 13:01 Vancomycin (Pre-Docked) IVPB 200 mls/hr Q24H [facility] Administration Protocol Fentanyl 500 mcg in 100 mls @ 1 mls/hr 10/07/19 17:45 10/08/19 21:18 Sublimaze Ivpb IVPB 100 mcg/hr TITR [facility] 20 mls/hr Administration Protocol 5 MCG/HR Norepinephrine Bitartrate 8,000 mcg in 500 mls @ 18.75 mls/hr 10/07/19 19:15 10/09/19 07:13 Levophed Bag IVPB 3 mcg/min TITR [facility] 11.25 mls/hr Titration Protocol 5 MCG/MIN Insulin Aspart 1 vial 10/05/19 22:00 10/09/19 11:16 Novolog Vial Sliding Scale - SQ 4 units BID [facility] Administration Protocol Metoprolol Tartrate 5 mg 10/07/19 23:27 10/08/19 11:40 Lopressor Injection - IVPUSH 5 mg Q4H PRN Administration HYPERTENSION Metoprolol Tartrate 25 mg 10/08/19 14:43 10/09/19 09:02 Lopressor - PO 25 mg BID [facility] Administration Pantoprazole Sodium 40 mg 09/29/19 11:00 10/09/19 09:02 Protonix Iv IVPUSH 40 mg DAILY [facility] Administration Polyethylene Glycol 17 gm 10/03/19 21:00 10/08/19 21:18 Miralax (For Daily Use) - NGT 17 mg HS@2100 [facility] Administration Scopolamine HBr 1 patch 10/08/19 22:00 10/09/19 03:27 Transderm-Scop - TD 1 patch Q72H [facility] Administration Vent: RR 18, TV 390, FiO2 70, PEEP 10 Drips: NE 3, Versed 10, Fentanyl 100, propofol 20 ASSESSMENT/PLAN: 53yo M with PMHx of CHF, afib/flutter on eliquis, sarcoidosis, guillan barre, morbid obesity, previously hospitalized for CHF exacerbation, another hospitalization for COVID including tracheostomy and decanulation, currently intubated and sedated with continued rate control for persistent aflutter and tachycardia. #Neuro - currently sedated and intubated #Cardio h/o afib/aflutter, CHF exacerbation - rate controlled with PO cardizem and lopressor. IV lopressor PRN - continue eliquis for ac - MAP goal > 65, wean norepi as tolerable #pulm acute hypoxic hypercapnic respiratory failure secondary to CHF exacerbation - patient remains intubated, decreasing FiO2 and possibly considering trach early next week - will attempt sedation vacation when vent settings allow #ID sputum growing ESBL and MRSA, urine culture growing enterobacter - continue meropenem and vancomycin - vanc trough at goal #Endo - BGM ACHS - continue SS #heme anemia, at baseline - monitor Hgb daily #GI - stool softners with miralax #FEN - promote tube feeds (high protein, low kcal) #PPx - DVT: eliquis - GI: pentoprazole #LTD - NG tube 10/07 - central line RIJ 10/05 - A line 10/04 - ortiz catheter was placed on 09/26 Tana Madrigal # [phone] (understands Grenadian but only speaks Surinamese) Dispo - continue to monitor in ICU Visit type - Emergency Visit Emergency Visit: Yes ED Registration Date: 09/27/19 Care time: The patient presented to the Emergency Department on the above date and was hospitalized for further evaluation of their emergent condition. - New Patient This patient is new to me today: No - Critical Care Critical Care patient: Yes Total Critical Care Time (in minutes): 37 Critical Care Statement: The care of this patient involved high complexity decision making to prevent further life threatening deterioration of the patient's condition and/or to evaluate & treat vital organ system(s) failure or risk of failure. ATTENDING PHYSICIAN STATEMENT I saw and evaluated the patient. I reviewed the resident's note and discussed the case with the resident. I agree with the resident's findings and plan as documented. SUBJECTIVE: OBJECTIVE: ASSESSMENT AND PLAN:
[2019-10-09] MEDS: NOREPINEPHRINE BITARTRATE 8,000 MCG/500 ML BAG IVPB SCH (19:15)
[2019-10-09] MEDS: ATORVASTATIN CA 40 MG TABLET (FP) PO SCH (23:08)
[2019-10-09] MEDS: POLYETHYLENE GLYCOL 3350 119 GM BTL NGT SCH (23:08)
[2019-10-09] MEDS: CHLORHEXIDINE GLUCONATE 4% CLEANSER FOR DECOLONIZATION TP SCH (23:08)
--- NOTE | 2019-10-09 23:31 | PN ---
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 SPUTUM ESBL, MRSA - Current Medication List Current Medications: Active Medications Amino Acids (Prosource No Carb Liquid Pkt) 30 ml PO BID@0800,1730 [facility] Last Admin: 10/09/19 17:06 Dose: 30 ml Documented by: Apixaban (Eliquis -) 5 mg PEG BID [facility] Last Admin: 10/09/19 23:08 Dose: 5 mg Documented by: Atorvastatin Calcium (Lipitor -) 40 mg PO HS [facility] Last Admin: 10/09/19 23:08 Dose: 40 mg Documented by: Chlorhexidine Gluconate (Hibiclens For Decolonization -) 1 applic TP [facility] Last Admin: 10/09/19 23:08 Dose: 1 applic Documented by: Chlorhexidine Gluconate (Peridex -) 15 ml MM BID [facility] Last Admin: 10/09/19 23:09 Dose: 15 ml Documented by: Diltiazem HCl (Cardizem -) 90 mg PO Q6HPO [facility] Last Admin: 10/09/19 17:06 Dose: 90 mg Documented by: Midazolam HCl 100 mg/ Sodium (Chloride) 100 mls @ 1 mls/hr IVPB TITR [facility]; Protocol Last Admin: 10/09/19 13:01 Dose: 10 mg/hr, 10 mls/hr Documented by: Propofol (Diprivan -) 1,000,000 mcg in 100 mls @ 8.165 mls/hr IVPB TITR [facility]; Protocol Last Titration: 10/09/19 07:12 Dose: 20 mcg/kg/min, 16.329 mls/hr Documented by: Meropenem 1 gm/ Dextrose 100 mls @ 200 mls/hr IVPB Q8H-IV [facility] Last Admin: 10/09/19 17:06 Dose: 200 mls/hr Documented by: Vancomycin HCl (Vancomycin (Pre-Docked)) 1,000 mg in 250 mls @ 200 mls/hr IVPB Q24H [facility]; Protocol Last Admin: 10/09/19 13:01 Dose: 200 mls/hr Documented by: Fentanyl (Sublimaze Ivpb) 500 mcg in 100 mls @ 1 mls/hr IVPB TITR [facility]; Protocol Last Admin: 10/09/19 14:00 Dose: 100 mcg/hr, 20 mls/hr Documented by: Norepinephrine Bitartrate (Levophed Bag) 8,000 mcg in 500 mls @ 18.75 mls/hr IVPB TITR [facility]; Protocol Last Admin: 10/09/19 19:15 Dose: 3 mcg/min, 11.25 mls/hr Documented by: Insulin Aspart (Novolog Vial Sliding Scale -) 1 vial SQ BID [facility]; Protocol Last Admin: 10/09/19 23:09 Dose: 4 units Documented by: Metoprolol Tartrate (Lopressor Injection -) 5 mg IVPUSH Q4H PRN PRN Reason: HYPERTENSION Last Admin: 10/08/19 11:40 Dose: 5 mg Documented by: Metoprolol Tartrate (Lopressor -) 25 mg PO BID [facility] Last Admin: 10/09/19 21:00 Dose: 25 mg Documented by: Pantoprazole Sodium (Protonix Iv) 40 mg IVPUSH DAILY [facility] Last Admin: 10/09/19 09:02 Dose: 40 mg Documented by: Polyethylene Glycol (Miralax (For Daily Use) -) 17 gm NGT HS@2100 [facility] Last Admin: 10/09/19 23:08 Dose: 17 mg Documented by: Scopolamine HBr (Transderm-Scop -) 1 patch TD Q72H [facility] Last Admin: 10/09/19 03:27 Dose: 1 patch Documented by: - Objective Vital Signs: Vital Signs Temperature 98.2 F 10/09/19 15:21 Pulse Rate 109 H 10/09/19 18:00 Respiratory Rate 20 10/09/19 21:37 Blood Pressure 103/65 10/09/19 18:00 O2 Sat by Pulse Oximetry (%) 94 L 10/09/19 11:49 Constitutional: Yes: No Distress Eyes: Yes: Conjunctiva Clear Cardiovascular: Yes: Regular Rate and Rhythm, S1, S2 Respiratory: Yes: Mechanically Ventilated Gastrointestinal: Yes: Normal Bowel Sounds, Soft. No: Tenderness Edema: Yes Labs: CBC, BMP 10/09/19 05:00 10/09/19 05:00 INR, PTT INR 1.02 (0.83-1.09) 09/27/19 05:20 Assessment/Plan ACUTE RESP FAILURE + SPUTUM MRSA, ESBL PNEUMONIA SEPSIS R/O SEPTIC SHOCK UTI S/P CARDIOPULMONARY ARREST CONTINUE MEROPENEM/VANCOMYCIN VENTILATORY/ HEMODYNAMIC SUPPORT CONTACT PRECAUTIONS
[2019-10-10] MEDS: dilTIAZem HCL 60 MG TABLET PO SCH ×4 (00:15→18:47)
[2019-10-10] MEDS: MEROPENEM 1 GM in DEXTROSE 5%-WATER 100 ML IVPB SCH ×3 (02:24→17:22)
[2019-10-10] MEDS ORDERED: MIDAZOLAM HCL 2 MG/2 ML SINGLE DOSE VIAL ONE (04:09)
[2019-10-10] MEDS ORDERED: MIDAZOLAM IN 0.9 % SOD.CHLORID 1 MG/1 ML PLAST..BAG ONE ×3 (05:23→21:01)
[2019-10-10 06:08] LABS: BASO % 0.7 % (0-2.0); EOS % 0.2 % (0-4.5); HEMATOCRIT 29.2 % (35.4-49); HEMOGLOBIN 9.3 GM/dL (11.7-16.9); LYMPH % 2.9 % (8-40); MCHC 31.9 g/dl (32.0-35.9); MEAN CELL VOLUME 78.3 fl (80-96); MEAN PLT VOLUME 8.1 fl (7.5-11.1); MONO % 9.2 % (3.8-10.2); PLATELET COUNT 407 K/MM3 (134-434); RBC 3.74 M/mm3 (4.00-5.60); RDW 17.8 % (11.9-15.9); WHITE BLOOD COUNT 10.9 K/mm3 (4.0-10.0)
[2019-10-10 06:31] LABS: ALBUMIN 1.9 g/dl (3.4-5.0); BILIRUBIN,TOTAL 0.4 mg/dL (0.2-1); CALCIUM 8.4 mg/dL (8.5-10.1); CREATININE 0.7 mg/dL (0.55-1.3); MAGNESIUM 1.7 mg/dL (1.8-2.4); PHOSPHOROUS 3.4 mg/dL (2.5-4.9); POTASSIUM 4.4 mmol/L (3.5-5.1); TOT PROT 5.3 g/dl (6.4-8.2)
[2019-10-10] MEDS ORDERED: MAGNESIUM SULF 50% (8.12 MEQ/2 ML-1 GM VIAL) IVPB ONE (08:00)
[2019-10-10] MEDS: AMINO ACIDS/PROTEIN HYDROLYS 30 ML LIQUID.PKT PO SCH ×2 (08:19→17:21)
--- NOTE | 2019-10-10 08:47 | PN ---
Physical Exam: SUBJECTIVE: Patient seen and examined. Pt intubated and sedated. 18/300/10/100. a-flutter noted on tele. OBJECTIVE: Vital Signs Period Temp Pulse Resp BP Sys/[place] Pulse Ox Last 24 Hr 97.7 F-99.3 F 83-117 18-29 103-135/53-90 94-99 GENERAL: The patient is intubated and sedated, no acute distress. HEAD: Normal with no signs of trauma. EYES: Conjunctiva clear. ENT: Ears normal, nares patent, moist mucous membranes, edematous lips. NECK: Trachea midline. LUNGS: Breath sounds equal, bronchial sounds heard, no wheezing. HEART: Regular rate and rhythm, no murmur. ABDOMEN: Soft, nontender, distended, hypoactive bowel sounds. EXTREMITIES: Warm, well-perfused, +1 edema all extremities. NEUROLOGICAL: Cannot be assessed. PSYCH: Cannot be assessed. SKIN: Warm, dry, normal turgor. urine output: 1400cc Laboratory Results - last 24 hr 10/09/19 10/09/19 10/09/19 10:00 11:06 21:29 WBC RBC Hgb Hct MCV MCH MCHC RDW Plt Count MPV Absolute Neuts (auto) Neutrophils % Lymphocytes % Monocytes % Eosinophils % Basophils % Nucleated RBC % Sodium Potassium Chloride Carbon Dioxide Anion Gap BUN Creatinine Est GFR (CKD-EPI)AfAm Est GFR (CKD-EPI)NonAf POC Glucometer 202 221 Random Glucose Calcium Phosphorus Magnesium Total Bilirubin AST ALT Alkaline Phosphatase Total Protein Albumin Vancomycin Pre-Dose 8.4 10/10/19 10/10/19 05:45 05:45 WBC 10.9 H RBC 3.74 L Hgb 9.3 L Hct 29.2 L MCV 78.3 L MCH 25.0 L MCHC 31.9 L RDW 17.8 H Plt Count 407 MPV 8.1 Absolute Neuts (auto) 9.5 H Neutrophils % 87.0 H Lymphocytes % 2.9 L D Monocytes % 9.2 Eosinophils % 0.2 Basophils % 0.7 Nucleated RBC % 0 Sodium 134 L Potassium 4.4 Chloride 96 L Carbon Dioxide 34 H Anion Gap 4 L BUN 33.0 H Creatinine 0.7 Est GFR (CKD-EPI)AfAm 126.64 Est GFR (CKD-EPI)NonAf 109.27 POC Glucometer Random Glucose 191 H Calcium 8.4 L Phosphorus 3.4 Magnesium 1.7 L Total Bilirubin 0.4 AST 13 L ALT 15 Alkaline Phosphatase 174 H Total Protein 5.3 L Albumin 1.9 L Vancomycin Pre-Dose Active Medications Generic Name Dose Route Start Last Admin Trade Name Freq PRN Reason Stop Dose Admin Amino Acids 30 ml 09/29/19 17:30 10/10/19 08:19 Prosource No Carb Liquid Pkt PO 30 ml BID@0800,1730 [facility] Administration Apixaban 5 mg 09/27/19 22:00 10/09/19 23:08 Eliquis - PEG 5 mg BID [facility] Administration Atorvastatin Calcium 40 mg 10/08/19 22:00 10/09/19 23:08 Lipitor - PO 40 mg HS [facility] Administration Chlorhexidine Gluconate 1 applic 09/27/19 22:00 10/09/19 23:08 Hibiclens For Decolonization - TP 1 applic HS [facility] Administration Chlorhexidine Gluconate 15 ml 10/05/19 22:00 10/09/19 23:09 Peridex - MM 15 ml BID [facility] Administration Diltiazem HCl 90 mg 10/07/19 11:32 10/10/19 07:33 Cardizem - PO 90 mg Q6HPO [facility] Administration Midazolam HCl 100 mg/ Sodium 100 mls @ 1 mls/hr 09/27/19 09:00 10/09/19 13:01 Chloride IVPB 10 mg/hr TITR [facility] 10 mls/hr Administration Protocol 1 MG/HR Propofol 1,000,000 mcg in 100 mls @ 8.165 mls/hr 09/27/19 13:00 10/09/19 07:12 Diprivan - IVPB 20 mcg/kg/min TITR [facility] 16.329 mls/hr Titration Protocol 10 MCG/KG/MIN Meropenem 1 gm/ Dextrose 100 mls @ 200 mls/hr 09/28/19 12:00 10/10/19 02:24 IVPB 200 mls/hr Q8H-IV [facility] Administration Vancomycin HCl 1,000 mg in 250 mls @ 200 mls/hr 10/04/19 11:00 10/09/19 13:01 Vancomycin (Pre-Docked) IVPB 200 mls/hr Q24H [facility] Administration Protocol Fentanyl 500 mcg in 100 mls @ 1 mls/hr 10/07/19 17:45 10/09/19 14:00 Sublimaze Ivpb IVPB 100 mcg/hr TITR [facility] 20 mls/hr Administration Protocol 5 MCG/HR Norepinephrine Bitartrate 8,000 mcg in 500 mls @ 18.75 mls/hr 10/07/19 19:15 10/10/19 07:36 Levophed Bag IVPB 7 mcg/min TITR [facility] 26.25 mls/hr Titration Protocol 5 MCG/MIN Insulin Aspart 1 vial 10/05/19 22:00 10/09/19 23:09 Novolog Vial Sliding Scale - SQ 4 units BID [facility] Administration Protocol Metoprolol Tartrate 5 mg 10/07/19 23:27 10/08/19 11:40 Lopressor Injection - IVPUSH 5 mg Q4H PRN Administration HYPERTENSION Metoprolol Tartrate 25 mg 10/08/19 14:43 10/09/19 21:00 Lopressor - PO 25 mg BID [facility] Administration Pantoprazole Sodium 40 mg 09/29/19 11:00 10/09/19 09:02 Protonix Iv IVPUSH 40 mg DAILY [facility] Administration Polyethylene Glycol 17 gm 10/03/19 21:00 10/09/19 23:08 Miralax (For Daily Use) - NGT 17 mg HS@2100 [facility] Administration Scopolamine HBr 1 patch 10/08/19 22:00 10/09/19 03:27 Transderm-Scop - TD 1 patch Q72H [facility] Administration ASSESSMENT/PLAN: 53 yo m w/ dDHF, afib/flutter on eliquis, sarcoidosis, guillan barre, morbid obesity, tracheostomy with reversal who is admitted for acute on chronic hypercapnic hypoxic respiratory failure 2/2 to CHF. #Neuro -intubated and sedated on propofol, versed, and fentanyl #Cardio -h/o afib/aflutter on eliquis -CHF exacerbation -lopressor 25mg bid with improved HR -cardizem to 90 q6h -levo 7 -continue lasix 40 mg bid -08/27/19 Echo: low normal LV function EF 25%, mild LVH, mildly dilated RA and RV, moderate to severe pulmonary HTN -continue to monitor I's &O's, daily weights #Pulmonary -acute hypoxic hypercapnic respiratory failure 2/2 to CHF exacerbation -//10/ -try to wean for possible trach next week, keep SpO2 >88% #Renal -hypomagnesemia -replete #ID -sputum growing ESBL and MRSA -Meropenem q8h -Vancomycin daily -contact precautions #Endo -BGMs -continue SS #Heme -anemia, at baseline -monitor Hgb daily DVT ppx Eliquis 5mg BID GI ppx Protonix FEN no standing fluids monitor Mg Prosource Lines central line RIJ 10/05 Dispo: ICU Updated today about no significant change in status. FULL CODE Visit type - Emergency Visit Emergency Visit: Yes ED Registration Date: 09/27/19 Care time: The patient presented to the Emergency Department on the above date and was hospitalized for further evaluation of their emergent condition. - New Patient This patient is new to me today: Yes Date on this admission: 10/10/19 - Critical Care Critical Care patient: Yes Total Critical Care Time (in minutes): 36 Critical Care Statement: The care of this patient involved high complexity decision making to prevent further life threatening deterioration of the patient's condition and/or to evaluate & treat vital organ system(s) failure or risk of failure. ATTENDING PHYSICIAN STATEMENT I saw and evaluated the patient. I reviewed the resident's note and discussed the case with the resident. I agree with the resident's findings and plan as documented. SUBJECTIVE: OBJECTIVE: ASSESSMENT AND PLAN:
[2019-10-10] MEDS ORDERED: MEROPENEM 1 GM VIAL (RESTRICTED TO ID) IVPB ONE ×3 (09:31→17:16)
[2019-10-10] MEDS ORDERED: DEXTROSE 5%-WATER 100 ML IVPB ONE ×3 (09:31→17:17)
[2019-10-10] MEDS: METOPROLOL TARTRATE 25 MG TABLET (FP) PO SCH ×2 (09:57→21:02)
[2019-10-10] MEDS: PANTOPRAZOLE SODIUM 40 MG VIAL IVPUSH SCH (09:57)
[2019-10-10] MEDS: APIXABAN 5 MG TABLET PEG SCH ×2 (09:57→21:03)
[2019-10-10] MEDS: CHLORHEXIDINE GLUCONATE 0.12% 15ML CUP MM SCH ×2 (09:58→21:02)
[2019-10-10] MEDS: INSULIN SLIDING SCALE (NOVOLOG) 1 VIAL SQ SCH ×2 (11:01→21:38)
[2019-10-10] MEDS: VANCOMYCIN 1 GRAM (PRE-DOCKED) 1,000 MG/250 ML BAG IVPB SCH (11:02)
--- NOTE | 2019-10-10 11:16 | PN ---
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 SPUTUM ESBL, MRSA - Current Medication List Current Medications: Active Medications Amino Acids (Prosource No Carb Liquid Pkt) 30 ml PO BID@0800,1730 [facility] Last Admin: 10/10/19 08:19 Dose: 30 ml Documented by: Apixaban (Eliquis -) 5 mg PEG BID [facility] Last Admin: 10/10/19 09:57 Dose: 5 mg Documented by: Atorvastatin Calcium (Lipitor -) 40 mg PO [facility] Last Admin: 10/09/19 23:08 Dose: 40 mg Documented by: Chlorhexidine Gluconate (Hibiclens For Decolonization -) 1 applic TP [facility] Last Admin: 10/09/19 23:08 Dose: 1 applic Documented by: Chlorhexidine Gluconate (Peridex -) 15 ml MM BID [facility] Last Admin: 10/10/19 09:58 Dose: 15 ml Documented by: Diltiazem HCl (Cardizem -) 90 mg PO Q6HPO [facility] Last Admin: 10/10/19 07:33 Dose: 90 mg Documented by: Midazolam HCl 100 mg/ Sodium (Chloride) 100 mls @ 1 mls/hr IVPB TITR [facility]; Protocol Last Admin: 10/09/19 13:01 Dose: 10 mg/hr, 10 mls/hr Documented by: Propofol (Diprivan -) 1,000,000 mcg in 100 mls @ 8.165 mls/hr IVPB TITR [facility]; Protocol Last Titration: 10/09/19 07:12 Dose: 20 mcg/kg/min, 16.329 mls/hr Documented by: Meropenem 1 gm/ Dextrose 100 mls @ 200 mls/hr IVPB Q8H-IV [facility] Last Admin: 10/10/19 09:57 Dose: 200 mls/hr Documented by: Vancomycin HCl (Vancomycin (Pre-Docked)) 1,000 mg in 250 mls @ 200 mls/hr IVPB Q24H [facility]; Protocol Last Admin: 10/10/19 11:02 Dose: 200 mls/hr Documented by: Fentanyl (Sublimaze Ivpb) 500 mcg in 100 mls @ 1 mls/hr IVPB TITR [facility]; Protocol Last Admin: 10/09/19 14:00 Dose: 100 mcg/hr, 20 mls/hr Documented by: Norepinephrine Bitartrate (Levophed Bag) 8,000 mcg in 500 mls @ 18.75 mls/hr IVPB TITR [facility]; Protocol Last Titration: 10/10/19 09:16 Dose: 5 mcg/min, 18.75 mls/hr Documented by: Insulin Aspart (Novolog Vial Sliding Scale -) 1 vial SQ BID [facility]; Protocol Last Admin: 10/10/19 11:01 Dose: 2 units Documented by: Metoprolol Tartrate (Lopressor Injection -) 5 mg IVPUSH Q4H PRN PRN Reason: HYPERTENSION Last Admin: 10/08/19 11:40 Dose: 5 mg Documented by: Metoprolol Tartrate (Lopressor -) 25 mg PO BID [facility] Last Admin: 10/10/19 09:57 Dose: 25 mg Documented by: Pantoprazole Sodium (Protonix Iv) 40 mg IVPUSH DAILY [facility] Last Admin: 10/10/19 09:57 Dose: 40 mg Documented by: Polyethylene Glycol (Miralax (For Daily Use) -) 17 gm NGT HS@2100 [facility] Last Admin: 10/09/19 23:08 Dose: 17 mg Documented by: Scopolamine HBr (Transderm-Scop -) 1 patch TD Q72H [facility] Last Admin: 10/09/19 03:27 Dose: 1 patch Documented by: - Objective Vital Signs: Vital Signs Temperature 99.3 F 10/10/19 00:00 Pulse Rate 97 H 10/10/19 08:28 Respiratory Rate 29 H 10/10/19 08:28 Blood Pressure 116/69 10/10/19 08:00 O2 Sat by Pulse Oximetry (%) 96 10/10/19 09:00 Constitutional: Yes: No Distress Eyes: Yes: Conjunctiva Clear Cardiovascular: Yes: Regular Rate and Rhythm, S1, S2 Respiratory: Yes: Mechanically Ventilated Gastrointestinal: Yes: Normal Bowel Sounds, Soft. No: Tenderness Edema: Yes Labs: CBC, BMP 10/10/19 05:45 10/10/19 05:45 INR, PTT INR 1.02 (0.83-1.09) 09/27/19 05:20 Assessment/Plan ACUTE RESP FAILURE + SPUTUM MRSA, ESBL PNEUMONIA SEPSIS R/O SEPTIC SHOCK UTI S/P CARDIOPULMONARY ARREST CONTINUE MEROPENEM/VANCOMYCIN VENTILATORY/ HEMODYNAMIC SUPPORT CONTACT PRECAUTIONS
--- NOTE | 2019-10-10 12:10 | PN ---
Teaching Attending Note Name of Resident: Zoraida Blair ATTENDING PHYSICIAN STATEMENT I saw and evaluated the patient. I reviewed the resident's note and discussed the case with the resident. I agree with the resident's findings and plan as documented. SUBJECTIVE: Patient seen and examined in the ICU. Remains intubated and sedated. NE @ 5 mcq drip for hemodynamic support. AC Mode of vent. PPlat : 28 OBJECTIVE: Intake & Output 10/07/19 10/08/19 10/09/19 10/10/19 23:59 23:59 23:59 23:59 Intake Total 2807.6 1414.4 2284.6 1364 Output Total 2189 544 9085 900 Balance 1407.6 814.4 884.6 464 Weight 261 lb 12.8 oz 266 lb 12.149 oz 266 lb 8 oz 266 lb 6.4 oz Last Vital Signs Temp Pulse Resp BP Pulse Ox 98.6 F 97 H 29 H 99/63 96 10/10/19 10:00 10/10/19 10:00 10/10/19 10:00 10/10/19 10:00 10/10/19 09:00 Active Medications Amino Acids (Prosource No Carb Liquid Pkt) 30 ml PO BID@0800,1730 [facility]S [facility] 234 BEDS AT [facility] Last Admin: 10/10/19 08:19 Dose: 30 ml Documented by: Apixaban (Eliquis -) 5 mg PEG BID [facility]S [facility]CLUDE 234 BEDS AT [facility] Last Admin: 10/10/19 09:57 Dose: 5 mg Documented by: Atorvastatin Calcium (Lipitor -) 40 mg PO [facility] Last Admin: 10/09/19 23:08 Dose: 40 mg Documented by: Chlorhexidine Gluconate (Hibiclens For Decolonization -) 1 applic TP [facility] Last Admin: 10/09/19 23:08 Dose: 1 applic Documented by: Chlorhexidine Gluconate (Peridex -) 15 ml MM BID [facility]S [facility]CLUDE 234 BEDS AT [facility] Last Admin: 10/10/19 09:58 Dose: 15 ml Documented by: Diltiazem HCl (Cardizem -) 90 mg PO Q6HPO COUNTS INCLUDE 234 BEDS AT [facility] Last Admin: 10/10/19 12:03 Dose: 90 mg Documented by: Midazolam HCl 100 mg/ Sodium (Chloride) 100 mls @ 1 mls/hr IVPB TITR [facility]S [facility]CLUDE 234 BEDS AT [facility]; Protocol Last Admin: 10/09/19 13:01 Dose: 10 mg/hr, 10 mls/hr Documented by: Propofol (Diprivan -) 1,000,000 mcg in 100 mls @ 8.165 mls/hr IVPB TITR [facility]S [facility]CLUDE 234 BEDS AT [facility]; Protocol Last Titration: 10/09/19 07:12 Dose: 20 mcg/kg/min, 16.329 mls/hr Documented by: Vancomycin HCl (Vancomycin (Pre-Docked)) 1,000 mg in 250 mls @ 200 mls/hr IVPB Q24H COUNTS INCLUDE 234 BEDS AT [facility]; Protocol Last Admin: 10/10/19 11:02 Dose: 200 mls/hr Documented by: Fentanyl (Sublimaze Ivpb) 500 mcg in 100 mls @ 1 mls/hr IVPB TITR [facility]; Protocol Last Admin: 10/09/19 14:00 Dose: 100 mcg/hr, 20 mls/hr Documented by: Norepinephrine Bitartrate (Levophed Bag) 8,000 mcg in 500 mls @ 18.75 mls/hr IVPB TITR [facility]S [facility]CLUDE 234 BEDS AT [facility]; Protocol Last Titration: 10/10/19 09:16 Dose: 5 mcg/min, 18.75 mls/hr Documented by: Meropenem 1 gm/ Dextrose 100 mls @ 200 mls/hr IVPB Q8H-IV [facility] Insulin Aspart (Novolog Vial Sliding Scale -) 1 vial SQ BID [facility]S INCLUDE 234 BEDS AT [facility]; Protocol Last Admin: 10/10/19 11:01 Dose: 2 units Documented by: Metoprolol Tartrate (Lopressor Injection -) 5 mg IVPUSH Q4H PRN PRN Reason: HYPERTENSION Last Admin: 10/08/19 11:40 Dose: 5 mg Documented by: Metoprolol Tartrate (Lopressor -) 25 mg PO BID [facility]S [facility]CLUDE 234 BEDS AT [facility] Last Admin: 10/10/19 09:57 Dose: 25 mg Documented by: Pantoprazole Sodium (Protonix Iv) 40 mg IVPUSH DAILY [facility]S INCLUDE 234 BEDS AT [facility] Last Admin: 10/10/19 09:57 Dose: 40 mg Documented by: Polyethylene Glycol (Miralax (For Daily Use) -) 17 gm NGT HS@2100 [facility]S INCLUDE 234 BEDS AT [facility] Last Admin: 10/09/19 23:08 Dose: 17 mg Documented by: Scopolamine HBr (Transderm-Scop -) 1 patch TD Q72H COUNTS INCLUDE 234 BEDS AT [facility] Last Admin: 10/09/19 03:27 Dose: 1 patch Documented by: Gen: intubated, sedated Heart: RRR Lung: scattered rhonchi Abd: soft, nontender Ext: +edema Laboratory Results - last 24 hr 10/09/19 10/10/19 10/10/19 21:29 05:45 05:45 WBC 10.9 H RBC 3.74 L Hgb 9.3 L Hct 29.2 L MCV 78.3 L MCH 25.0 L MCHC 31.9 L RDW 17.8 H Plt Count 407 MPV 8.1 Absolute Neuts (auto) 9.5 H Neutrophils % 87.0 H Lymphocytes % 2.9 L D Monocytes % 9.2 Eosinophils % 0.2 Basophils % 0.7 Nucleated RBC % 0 Sodium 134 L Potassium 4.4 Chloride 96 L Carbon Dioxide 34 H Anion Gap 4 L BUN 33.0 H Creatinine 0.7 Est GFR (CKD-EPI)AfAm 126.64 Est GFR (CKD-EPI)NonAf 109.27 POC Glucometer 221 Random Glucose 191 H Calcium 8.4 L Phosphorus 3.4 Magnesium 1.7 L Total Bilirubin 0.4 AST 13 L ALT 15 Alkaline Phosphatase 174 H Total Protein 5.3 L Albumin 1.9 L 10/10/19 10:58 WBC RBC Hgb Hct MCV MCH MCHC RDW Plt Count MPV Absolute Neuts (auto) Neutrophils % Lymphocytes % Monocytes % Eosinophils % Basophils % Nucleated RBC % Sodium Potassium Chloride Carbon Dioxide Anion Gap BUN Creatinine Est GFR (CKD-EPI)AfAm Est GFR (CKD-EPI)NonAf POC Glucometer 195 Random Glucose Calcium Phosphorus Magnesium Total Bilirubin AST ALT Alkaline Phosphatase Total Protein Albumin ASSESSMENT AND PLAN: Acute Hypoxic and Hypercapneic Respiratory Failure UTI Pneumonia ARDS Septic Shock Acute on Chronic Diastolic Heart Failure Volume Overload Atrial Fibrillation/Flutter with RVR h/o COVID19 Sarcoidosis Morbid Obesity EMMY/OHS - ABX coverage per ID - Pressors to maintain MAP > 65 - rate control - continue anticoagulation - monitor urine output, creatinine - continue volume assist control - enteral feeds - DVT/GI prophylaxis - continue ICU monitoring May need Trach Dr Maya Critical care time spent in reviewing chart, evaluating patient and formulating plan 35 min
--- NOTE | 2019-10-10 15:07 | PN ---
Progress Note, Physician Chief Complaint: Events noted Remains intubated and sedated Atrial flutter with periods of RVR History of Present Illness: Patient was seen and examined in ICU. Mechanically ventilated. Chart was reviewed - Current Medication List Current Medications: Active Medications Amino Acids (Prosource No Carb Liquid Pkt) 30 ml PO BID@0800,1730 [facility] Last Admin: 10/10/19 08:19 Dose: 30 ml Documented by: Apixaban (Eliquis -) 5 mg PEG BID [facility] Last Admin: 10/10/19 09:57 Dose: 5 mg Documented by: Atorvastatin Calcium (Lipitor -) 40 mg PO [facility] Last Admin: 10/09/19 23:08 Dose: 40 mg Documented by: Chlorhexidine Gluconate (Hibiclens For Decolonization -) 1 applic TP [facility] Last Admin: 10/09/19 23:08 Dose: 1 applic Documented by: Chlorhexidine Gluconate (Peridex -) 15 ml MM BID [facility] Last Admin: 10/10/19 09:58 Dose: 15 ml Documented by: Diltiazem HCl (Cardizem -) 90 mg PO Q6HPO [facility] Last Admin: 10/10/19 12:03 Dose: 90 mg Documented by: Midazolam HCl 100 mg/ Sodium (Chloride) 100 mls @ 1 mls/hr IVPB TITR [facility]; Protocol Last Admin: 10/09/19 13:01 Dose: 10 mg/hr, 10 mls/hr Documented by: Propofol (Diprivan -) 1,000,000 mcg in 100 mls @ 8.165 mls/hr IVPB TITR [facility]; Protocol Last Titration: 10/09/19 07:12 Dose: 20 mcg/kg/min, 16.329 mls/hr Documented by: Vancomycin HCl (Vancomycin (Pre-Docked)) 1,000 mg in 250 mls @ 200 mls/hr IVPB Q24H [facility]; Protocol Last Admin: 10/10/19 11:02 Dose: 200 mls/hr Documented by: Fentanyl (Sublimaze Ivpb) 500 mcg in 100 mls @ 1 mls/hr IVPB TITR [facility]; Protocol Last Admin: 10/09/19 14:00 Dose: 100 mcg/hr, 20 mls/hr Documented by: Norepinephrine Bitartrate (Levophed Bag) 8,000 mcg in 500 mls @ 18.75 mls/hr IVPB TITR [facility]; Protocol Last Titration: 10/10/19 09:16 Dose: 5 mcg/min, 18.75 mls/hr Documented by: Meropenem 1 gm/ Dextrose 100 mls @ 200 mls/hr IVPB Q8H-IV [facility] Insulin Aspart (Novolog Vial Sliding Scale -) 1 vial SQ BID [facility]; Protocol Last Admin: 10/10/19 11:01 Dose: 2 units Documented by: Metoprolol Tartrate (Lopressor Injection -) 5 mg IVPUSH Q4H PRN PRN Reason: HYPERTENSION Last Admin: 10/08/19 11:40 Dose: 5 mg Documented by: Metoprolol Tartrate (Lopressor -) 25 mg PO BID [facility] Last Admin: 10/10/19 09:57 Dose: 25 mg Documented by: Pantoprazole Sodium (Protonix Iv) 40 mg IVPUSH DAILY [facility] Last Admin: 10/10/19 09:57 Dose: 40 mg Documented by: Polyethylene Glycol (Miralax (For Daily Use) -) 17 gm NGT HS@2100 [facility] Last Admin: 10/09/19 23:08 Dose: 17 mg Documented by: Scopolamine HBr (Transderm-Scop -) 1 patch TD Q72H [facility] Last Admin: 10/09/19 03:27 Dose: 1 patch Documented by: - Objective Vital Signs: Vital Signs Temperature 98.6 F 10/10/19 10:00 Pulse Rate 94 H 10/10/19 12:00 Respiratory Rate 18 10/10/19 12:05 Blood Pressure 104/66 10/10/19 12:00 O2 Sat by Pulse Oximetry (%) 98 10/10/19 12:05 Neck: Yes: Supple Cardiovascular: Yes: Tachycardia, Pulse Irregular, S1, S2 Respiratory: Yes: Diminished, Mechanically Ventilated Musculoskeletal: Yes: WNL Labs: CBC, BMP 10/10/19 05:45 10/10/19 05:45 Problem List - Problems (1) Acute respiratory failure with hypoxia and hypercapnia Code(s): J96.01 - ACUTE RESPIRATORY FAILURE WITH HYPOXIA; J96.02 - ACUTE RESPIRATORY FAILURE WITH HYPERCAPNIA (2) CHF (congestive heart failure) Code(s): I50.9 - HEART FAILURE, UNSPECIFIED Qualifiers: Heart failure type: unspecified Heart failure chronicity: acute on chronic Qualified Code(s): I50.9 - Heart failure, unspecified (3) Respiratory distress Code(s): R06.03 - ACUTE RESPIRATORY DISTRESS (4) Acute on chronic renal failure Code(s): N17.9 - ACUTE KIDNEY FAILURE, UNSPECIFIED; N18.9 - CHRONIC KIDNEY DISEASE, UNSPECIFIED (5) Atrial fibrillation and flutter Code(s): I48.91 - UNSPECIFIED ATRIAL FIBRILLATION; I48.92 - UNSPECIFIED ATRIAL FLUTTER (6) Septic shock Code(s): A41.9 - SEPSIS, UNSPECIFIED ORGANISM; R65.21 - SEVERE SEPSIS WITH SEPTIC SHOCK (7) Sleep apnea Code(s): G47.30 - SLEEP APNEA, UNSPECIFIED Qualifiers: Sleep apnea type: obstructive Qualified Code(s): G47.33 - Obstructive sleep apnea (adult) (pediatric) (8) Type 2 diabetes mellitus Code(s): E11.9 - TYPE 2 DIABETES MELLITUS WITHOUT COMPLICATIONS Qualifiers: Diabetes mellitus prison insulin use: without prison use Diabetes mellitus complication detail: with chronic kidney disease Chronic kidney disease stage: stage 2 (mild) Assessment/Plan 1. Acute hypoxic and hypercapneic respiratory failure currently on mechanical ventilation 2. Pneumonia, post septic shock and ARDS 3. Sarcoidosis confirmed by skin biopsy 4. OSAS 5. Persistent Atrial flutter/AF rate-controlled 6. Acute on chronic diastolic heart failure 7. Acute on CKD with hyperkalemia 8. Type 2 DM 9. Anemia 10. History of COVID 19 PLAN: 1. Wean vent per Critical Care Team. 2. IV diuresis with monitoring renal function and electrolytes 3. Rate-control with oral Cardizem 90 mg mg QID and Lopressor 25 mg BID for rate control. IV Cardizem and IV Lopressor as needed. Continue Eliquis 5 mg BID 4. Pressors to keep MAP>65 mmHg 5. Hold lisinopril 10 mg QD pending hemodynamic and renal stability and continue Lipitor 40 mg QHS. 6. Follow up with Dr. Genaro Davila (cardiology at [place]) as outpatient. Consider cardiac PET or MRI to exclude cardiac involvement in sarcoidosis as outpatient Guarded Shin Cutler MD
[2019-10-10] MEDS: MIDAZOLAM 100 MG in SODIUM CHLORIDE 100 ML IVPB SCH (17:19)
[2019-10-10] MEDS: FENTANYL NS IVPB 500 MCG/100 ML BAG IVPB SCH (18:17)
[2019-10-10] MEDS: ATORVASTATIN CA 40 MG TABLET (FP) PO SCH (21:02)
[2019-10-10] MEDS: PROPOFOL 1,000,000 MCG/100 ML VIAL IVPB SCH (21:03)
[2019-10-10] MEDS: POLYETHYLENE GLYCOL 3350 119 GM BTL NGT SCH (21:03)
[2019-10-10] MEDS: NOREPINEPHRINE BITARTRATE 8,000 MCG/500 ML BAG IVPB SCH (21:04)
[2019-10-10] MEDS: CHLORHEXIDINE GLUCONATE 4% CLEANSER FOR DECOLONIZATION TP SCH (21:37)
[2019-10-11] MEDS: PROPOFOL 1,000,000 MCG/100 ML VIAL IVPB SCH ×5 (00:04→21:00)
[2019-10-11] MEDS: FENTANYL NS IVPB 500 MCG/100 ML BAG IVPB SCH ×5 (00:04→21:11)
[2019-10-11] MEDS: dilTIAZem HCL 60 MG TABLET PO SCH ×4 (00:04→18:01)
[2019-10-11] MEDS ORDERED: MEROPENEM 1 GM VIAL (RESTRICTED TO ID) IVPB ONE ×3 (01:58→17:59)
[2019-10-11] MEDS ORDERED: DEXTROSE 5%-WATER 100 ML IVPB ONE ×3 (01:58→17:59)
[2019-10-11] MEDS: MEROPENEM 1 GM in DEXTROSE 5%-WATER 100 ML IVPB SCH ×3 (01:58→18:02)
[2019-10-11] MEDS: MIDAZOLAM 100 MG in SODIUM CHLORIDE 100 ML IVPB SCH ×3 (02:00→23:00)
[2019-10-11] MEDS: NOREPINEPHRINE BITARTRATE 8,000 MCG/500 ML BAG IVPB SCH ×2 (03:00→21:06)
[2019-10-11 07:47] LABS: BASO % 0.7 % (0-2.0); EOS % 0.5 % (0-4.5); HEMATOCRIT 28.6 % (35.4-49); HEMOGLOBIN 9.1 GM/dL (11.7-16.9); LYMPH % 4.1 % (8-40); MCH 25.1 pg (25.7-33.7); MCHC 31.7 g/dl (32.0-35.9); MEAN CELL VOLUME 79.3 fl (80-96); MEAN PLT VOLUME 8.6 fl (7.5-11.1); MONO % 10.2 % (3.8-10.2); NEUT % 84.5 % (42.8-82.8); PLATELET COUNT 388 K/MM3 (134-434); RBC 3.61 M/mm3 (4.00-5.60); RDW 17.7 % (11.9-15.9); WHITE BLOOD COUNT 9.4 K/mm3 (4.0-10.0)
[2019-10-11 08:14] LABS: ALBUMIN 1.8 g/dl (3.4-5.0); BILIRUBIN,TOTAL 0.4 mg/dL (0.2-1); BLOOD UREA NITROGEN 33.6 mg/dL (7-18); CALCIUM 8.8 mg/dL (8.5-10.1); CREATININE 0.8 mg/dL (0.55-1.3); MAGNESIUM 1.9 mg/dL (1.8-2.4); TOT PROT 5.3 g/dl (6.4-8.2)
[2019-10-11] MEDS: AMINO ACIDS/PROTEIN HYDROLYS 30 ML LIQUID.PKT PO SCH ×2 (08:39→18:02)
[2019-10-11] MEDS: METOPROLOL TARTRATE 25 MG TABLET (FP) PO SCH ×2 (09:40→21:04)
[2019-10-11] MEDS: CHLORHEXIDINE GLUCONATE 0.12% 15ML CUP MM SCH ×2 (09:40→21:05)
[2019-10-11] MEDS: APIXABAN 5 MG TABLET PEG SCH ×2 (09:40→21:04)
[2019-10-11] MEDS: PANTOPRAZOLE SODIUM 40 MG VIAL IVPUSH SCH (09:41)
[2019-10-11] MEDS: INSULIN SLIDING SCALE (NOVOLOG) 1 VIAL SQ SCH ×2 (10:01→21:07)
[2019-10-11] MEDS ORDERED: MIDAZOLAM IN 0.9 % SOD.CHLORID 1 MG/1 ML PLAST..BAG ONE (10:42)
--- NOTE | 2019-10-11 10:58 | PN ---
Teaching Attending Note Name of Resident: Yesenia Barrett ATTENDING PHYSICIAN STATEMENT I saw and evaluated the patient. I reviewed the resident's note and discussed the case with the resident. I agree with the resident's findings and plan as documented. SUBJECTIVE: Pt seen and examined in the ICU. Remains intubated, sedated on levophed gtt. Vented on volume assist control with 100% FiO2, PEEP 10. OBJECTIVE: Vital Signs Period Temp Pulse Resp BP Sys/[place] Pulse Ox Last 24 Hr 98.6 F-99.6 F 93-123 18-19 95-118/61-85 95-99 Intake & Output 10/08/19 10/09/19 10/10/19 10/11/19 23:59 23:59 23:59 23:59 Intake Total 1414.4 2284.6 3098.4 1460 Output Total 600 1400 1550 700 Balance 814.4 884.6 1548.4 760 Weight 121 kg 120.882 kg 120.837 kg 122 kg Gen: intubated, sedated Heart: RRR Lung: scattered rhonchi Abd: soft, nontender Ext: no edema CBC, BMP 10/11/19 06:00 10/11/19 06:00 Active Medications Amino Acids (Prosource No Carb Liquid Pkt) 30 ml PO BID@0800,1730 [facility] Last Admin: 10/11/19 08:39 Dose: 30 ml Documented by: Apixaban (Eliquis -) 5 mg PEG BID [facility] Last Admin: 10/11/19 09:40 Dose: 5 mg Documented by: Atorvastatin Calcium (Lipitor -) 40 mg PO [facility] Last Admin: 10/10/19 21:02 Dose: 40 mg Documented by: Chlorhexidine Gluconate (Hibiclens For Decolonization -) 1 applic TP [facility] Last Admin: 10/10/19 21:37 Dose: 1 applic Documented by: Chlorhexidine Gluconate (Peridex -) 15 ml MM BID [facility] Last Admin: 10/11/19 09:40 Dose: 15 ml Documented by: Diltiazem HCl (Cardizem -) 90 mg PO Q6HPO [facility] Last Admin: 10/11/19 05:18 Dose: 90 mg Documented by: Midazolam HCl 100 mg/ Sodium (Chloride) 100 mls @ 1 mls/hr IVPB TITR [facility]; Prot ocol Last Admin: 10/11/19 02:00 Dose: 10 mg/hr, 10 mls/hr Documented by: Propofol (Diprivan -) 1,000,000 mcg in 100 mls @ 8.165 mls/hr IVPB TITR [facility]; Protocol Last Admin: 10/11/19 08:20 Dose: 30 mcg/kg/min, 24.494 mls/hr Documented by: Vancomycin HCl (Vancomycin (Pre-Docked)) 1,000 mg in 250 mls @ 200 mls/hr IVPB Q24H [facility]; Protocol Last Admin: 10/10/19 11:02 Dose: 200 mls/hr Documented by: Fentanyl (Sublimaze Ivpb) 500 mcg in 100 mls @ 1 mls/hr IVPB TITR [facility]; Protocol Last Admin: 10/11/19 09:41 Dose: 100 mcg/hr, 20 mls/hr Documented by: Norepinephrine Bitartrate (Levophed Bag) 8,000 mcg in 500 mls @ 18.75 mls/hr IVPB TITR [facility]; Protocol Last Admin: 10/11/19 03:00 Dose: 6 mcg/min, 22.5 mls/hr Documented by: Meropenem 1 gm/ Dextrose 100 mls @ 200 mls/hr IVPB Q8H-IV [facility] Last Admin: 10/11/19 09:41 Dose: 200 mls/hr Documented by: Insulin Aspart (Novolog Vial Sliding Scale -) 1 vial SQ BID [facility]; Protocol Last Admin: 10/11/19 10:01 Dose: 2 units Documented by: Metoprolol Tartrate (Lopressor Injection -) 5 mg IVPUSH Q4H PRN PRN Reason: HYPERTENSION Last Admin: 10/08/19 11:40 Dose: 5 mg Documented by: Metoprolol Tartrate (Lopressor -) 25 mg PO BID [facility] Last Admin: 10/11/19 09:40 Dose: 25 mg Documented by: Pantoprazole Sodium (Protonix Iv) 40 mg IVPUSH DAILY [facility] Last Admin: 10/11/19 09:41 Dose: 40 mg Documented by: Polyethylene Glycol (Miralax (For Daily Use) -) 17 gm NGT HS@2100 [facility] Last Admin: 10/10/19 21:03 Dose: 17 gm Documented by: Scopolamine HBr (Transderm-Scop -) 1 patch TD Q72H [facility] Last Admin: 10/09/19 03:27 Dose: 1 patch Documented by: ASSESSMENT AND PLAN: Acute Hypoxic and Hypercapneic Respiratory Failure UTI Pneumonia ARDS Septic Shock Acute on Chronic Diastolic Heart Failure Volume Overload Atrial Fibrillation/Flutter with RVR h/o COVID19 Sarcoidosis Morbid Obesity EMMY/OHS Anemia - continue antibiotics per ID - titrate pressors to maintain MAP > 65 - rate control - continue anticoagulation, transition to LMWH in anticipation for tracheostomy - monitor urine output, creatinine - continue volume assist control - taper FiO2, PEEP to keep SpO2 >90% - enteral feeds - DVT/GI prophylaxis - continue ICU monitoring - may need tracheostomy for prolonged intubation and failure to wean critical care time spent in reviewing chart, evaluating patient and formulating plan 35 min
[2019-10-11] MEDS: VANCOMYCIN 1 GRAM (PRE-DOCKED) 1,000 MG/250 ML BAG IVPB SCH (11:10)
--- NOTE | 2019-10-11 14:33 | PN ---
Progress Note, Physician Chief Complaint: Events noted Remains intubated and sedated Atrial flutter with periods History of Present Illness: Patient was seen and examined in ICU. Mechanically ventilated. Chart was revi ewed - Current Medication List Current Medications: Active Medications Amino Acids (Prosource No Carb Liquid Pkt) 30 ml PO BID@0800,1730 [facility] Last Admin: 10/11/19 08:39 Dose: 30 ml Documented by: Apixaban (Eliquis -) 5 mg PEG BID [facility] Stop: 10/11/19 22:30 Last Admin: 10/11/19 09:40 Dose: 5 mg Documented by: Atorvastatin Calcium (Lipitor -) 40 mg PO [facility] Last Admin: 10/10/19 21:02 Dose: 40 mg Documented by: Chlorhexidine Gluconate (Hibiclens For Decolonization -) 1 applic TP [facility] Last Admin: 10/10/19 21:37 Dose: 1 applic Documented by: Chlorhexidine Gluconate (Peridex -) 15 ml MM BID [facility] Last Admin: 10/11/19 09:40 Dose: 15 ml Documented by: Diltiazem HCl (Cardizem -) 90 mg PO Q6HPO [facility] Last Admin: 10/11/19 12:11 Dose: 90 mg Documented by: Enoxaparin Sodium (Lovenox -) 120 mg SQ BID [facility] Midazolam HCl 100 mg/ Sodium (Chloride) 100 mls @ 1 mls/hr IVPB TITR [facility]; Protocol Last Admin: 10/11/19 02:00 Dose: 10 mg/hr, 10 mls/hr Documented by: Propofol (Diprivan -) 1,000,000 mcg in 100 mls @ 8.165 mls/hr IVPB TITR [facility]; Protocol Last Admin: 10/11/19 11:15 Dose: 30 mcg/kg/min, 24.494 mls/hr Documented by: Vancomycin HCl (Vancomycin (Pre-Docked)) 1,000 mg in 250 mls @ 200 mls/hr IVPB Q24H [facility]; Protocol Last Admin: 10/11/19 11:10 Dose: 200 mls/hr Documented by: Fentanyl (Sublimaze Ivpb) 500 mcg in 100 mls @ 1 mls/hr IVPB TITR [facility]; Protocol Last Admin: 10/11/19 09:41 Dose: 100 mcg/hr, 20 mls/hr Documented by: Norepinephrine Bitartrate (Levophed Bag) 8,000 mcg in 500 mls @ 18.75 mls/hr IVPB TITR [facility]; Protocol Last Admin: 10/11/19 03:00 Dose: 6 mcg/min, 22.5 mls/hr Documented by: Meropenem 1 gm/ Dextrose 100 mls @ 200 mls/hr IVPB Q8H-IV [facility] Last Admin: 10/11/19 09:41 Dose: 200 mls/hr Documented by: Insulin Aspart (Novolog Vial Sliding Scale -) 1 vial SQ BID [facility]; Protocol Last Admin: 10/11/19 10:01 Dose: 2 units Documented by: Metoprolol Tartrate (Lopressor Injection -) 5 mg IVPUSH Q4H PRN PRN Reason: HYPERTENSION Last Admin: 10/08/19 11:40 Dose: 5 mg Documented by: Metoprolol Tartrate (Lopressor -) 25 mg PO BID [facility] Last Admin: 10/11/19 09:40 Dose: 25 mg Documented by: Pantoprazole Sodium (Protonix Iv) 40 mg IVPUSH DAILY [facility] Last Admin: 10/11/19 09:41 Dose: 40 mg Documented by: Polyethylene Glycol (Miralax (For Daily Use) -) 17 gm NGT HS@2100 [facility] Last Admin: 10/10/19 21:03 Dose: 17 gm Documented by: Scopolamine HBr (Transderm-Scop -) 1 patch TD Q72H [facility] Last Admin: 10/09/19 03:27 Dose: 1 patch Documented by: - Objective Vital Signs: Vital Signs Temperature 98.1 F 10/11/19 12:00 Pulse Rate 92 H 10/11/19 12:00 Respiratory Rate 18 10/11/19 12:00 Blood Pressure 107/65 10/11/19 12:00 O2 Sat by Pulse Oximetry (%) 96 10/11/19 12:00 Cardiovascular: Yes: Pulse Irregular, S1, S2 Respiratory: Yes: Mechanically Ventilated Gastrointestinal: Yes: Normal Bowel Sounds, Soft. No: Tenderness Edema: No Labs: CBC, BMP 10/11/19 06:00 10/11/19 06:00 Problem List - Problems (1) Acute respiratory failure with hypoxia and hypercapnia Code(s): J96.01 - ACUTE RESPIRATORY FAILURE WITH HYPOXIA; J96.02 - ACUTE RESPIRATORY FAILURE WITH HYPERCAPNIA (2) CHF (congestive heart failure) Code(s): I50.9 - HEART FAILURE, UNSPECIFIED Qualifiers: Heart failure type: unspecified Heart failure chronicity: acute on chronic Qualified Code(s): I50.9 - Heart failure, unspecified (3) Respiratory distress Code(s): R06.03 - ACUTE RESPIRATORY DISTRESS (4) Acute on chronic renal failure Code(s): N17.9 - ACUTE KIDNEY FAILURE, UNSPECIFIED; N18.9 - CHRONIC KIDNEY DISEASE, UNSPECIFIED (5) Atrial fibrillation and flutter Code(s): I48.91 - UNSPECIFIED ATRIAL FIBRILLATION; I48.92 - UNSPECIFIED ATRIAL FLUTTER (6) Septic shock Code(s): A41.9 - SEPSIS, UNSPECIFIED ORGANISM; R65.21 - SEVERE SEPSIS WITH SEPTIC SHOCK (7) Sleep apnea Code(s): G47.30 - SLEEP APNEA, UNSPECIFIED Qualifiers: Sleep apnea type: obstructive Qualified Code(s): G47.33 - Obstructive sleep apnea (adult) (pediatric) (8) Type 2 diabetes mellitus Code(s): E11.9 - TYPE 2 DIABETES MELLITUS WITHOUT COMPLICATIONS Qualifiers: Diabetes mellitus skilled nursing insulin use: without skilled nursing use Diabetes mellitus complication detail: with chronic kidney disease Chronic kidney disease stage: stage 2 (mild) Assessment/Plan 1. Acute hypoxic and hypercapneic respiratory failure currently on mechanical ventilation 2. Pneumonia, post septic shock and ARDS 3. Sarcoidosis confirmed by skin biopsy 4. OSAS 5. Persistent Atrial flutter/AF rate-controlled 6. Acute on chronic diastolic heart failure 7. Acute on CKD with hyperkalemia 8. Type 2 DM 9. Anemia 10. History of COVID 19 PLAN: 1. Wean vent per Critical Care Team. 2. IV diuresis with monitoring renal function and electrolytes 3. Rate-control with oral Cardizem 90 mg mg QID and Lopressor 25 mg BID for rate control. IV Cardizem and IV Lopressor as needed. Continue Eliquis 5 mg BID 4. Pressors (currently on Levophed) to keep MAP>65 mmHg 5. Hold lisinopril 10 mg QD pending hemodynamic and renal stability and continue Lipitor 40 mg QHS. 6. Follow up with Dr. Genaor Davila (cardiology at [place]) as outpatient. Consider cardiac PET or MRI to exclude cardiac involvement in sarcoidosis as outpatient Ceceed Shin Cutler MD
--- NOTE | 2019-10-11 18:26 | PN ---
Physical Exam: SUBJECTIVE: Patient seen and examined, patient is rate controlled with persistent atrial flutter and remains sedated and intubated. No acute overnight events as per nursing staff. OBJECTIVE: Vital Signs Period Temp Pulse Resp BP Sys/[place] Pulse Ox Last 24 Hr 98.1 F-99.6 F 90-123 18-19 95-118/61-85 95-99 GENERAL: Intubated and sedated HEAD: Normal with no signs of trauma. LUNGS: Breath sounds from ventilator are clear to auscultation bilaterally, no wheezes, no crackles. HEART: regular rate and irregular rhythm, S1, S2 without murmur, rub or gallop. ABDOMEN: distended and mildly rigid on palpation, no audible BS EXTREMITIES: warm, 1+ edema on feet. SKIN: Warm, no rashes or lesions noted SKIN: Warm, dry, normal turgor, no rashes or lesions noted Laboratory Results - last 24 hr 10/10/19 10/11/19 10/11/19 21:38 06:00 06:00 WBC 9.4 RBC 3.61 L Hgb 9.1 L Hct 28.6 L MCV 79.3 L MCH 25.1 L MCHC 31.7 L RDW 17.7 H Plt Count 388 MPV 8.6 Absolute Neuts (auto) 7.9 Neutrophils % 84.5 H Lymphocytes % 4.1 L D Monocytes % 10.2 Eosinophils % 0.5 D Basophils % 0.7 Nucleated RBC % 0 Sodium 137 Potassium 5.0 Chloride 98 Carbon Dioxide 33 H Anion Gap 6 L BUN 33.6 H Creatinine 0.8 Est GFR (CKD-EPI)AfAm 119.88 Est GFR (CKD-EPI)NonAf 103.43 POC Glucometer 196 Random Glucose 198 H Calcium 8.8 Phosphorus 5.0 H Magnesium 1.9 Total Bilirubin 0.4 AST 17 ALT 18 Alkaline Phosphatase 163 H Total Protein 5.3 L Albumin 1.8 L 10/11/19 10/11/19 06:27 10:00 WBC RBC Hgb Hct MCV MCH MCHC RDW Plt Count MPV Absolute Neuts (auto) Neutrophils % Lymphocytes % Monocytes % Eosinophils % Basophils % Nucleated RBC % Sodium Potassium Chloride Carbon Dioxide Anion Gap BUN Creatinine Est GFR (CKD-EPI)AfAm Est GFR (CKD-EPI)NonAf POC Glucometer 204 199 Random Glucose Calcium Phosphorus Magnesium Total Bilirubin AST ALT Alkaline Phosphatase Total Protein Albumin Active Medications Generic Name Dose Route Start Last Admin Trade Name Freq PRN Reason Stop Dose Admin Amino Acids 30 ml 09/29/19 17:30 10/11/19 08:39 Prosource No Carb Liquid Pkt PO 30 ml BID@0800,1730 [facility] Administration Apixaban 5 mg 09/27/19 22:00 10/11/19 09:40 Eliquis - PEG 10/11/19 22:30 5 mg BID [facility] Administration Atorvastatin Calcium 40 mg 10/08/19 22:00 10/10/19 21:02 Lipitor - PO 40 mg HS [facility] Administration Chlorhexidine Gluconate 1 applic 09/27/19 22:00 10/10/19 21:37 Hibiclens For Decolonization - TP 1 applic HS [facility] Administration Chlorhexidine Gluconate 15 ml 10/05/19 22:00 10/11/19 09:40 Peridex - MM 15 ml BID [facility] Administration Diltiazem HCl 90 mg 10/07/19 11:32 10/11/19 12:11 Cardizem - PO 90 mg Q6HPO [facility] Administration Enoxaparin Sodium 120 mg 10/12/19 10:00 Lovenox - SQ BID [facility] Midazolam HCl 100 mg/ Sodium 100 mls @ 1 mls/hr 09/27/19 09:00 10/11/19 02:00 Chloride IVPB 10 mg/hr TITR [facility] 10 mls/hr Administration Protocol 1 MG/HR Propofol 1,000,000 mcg in 100 mls @ 8.165 mls/hr 09/27/19 13:00 10/11/19 11:15 Diprivan - IVPB 30 mcg/kg/min TITR [facility] 24.494 mls/hr Administration Protocol 10 MCG/KG/MIN Vancomycin HCl 1,000 mg in 250 mls @ 200 mls/hr 10/04/19 11:00 10/11/19 11:10 Vancomycin (Pre-Docked) IVPB 200 mls/hr Q24H [facility] Administration Protocol Fentanyl 500 mcg in 100 mls @ 1 mls/hr 10/07/19 17:45 10/11/19 09:41 Sublimaze Ivpb IVPB 100 mcg/hr TITR [facility] 20 mls/hr Administration Protocol 5 MCG/HR Norepinephrine Bitartrate 8,000 mcg in 500 mls @ 18.75 mls/hr 10/07/19 19:15 07/04/20 03:00 Levophed Bag IVPB 6 mcg/min TITR [facility] 22.5 mls/hr Administration Protocol 5 MCG/MIN Meropenem 1 gm/ Dextrose 100 mls @ 200 mls/hr 10/10/19 18:00 10/11/19 09:41 IVPB 200 mls/hr Q8H-IV [facility] Administration Insulin Aspart 1 vial 10/05/19 22:00 10/11/19 10:01 Novolog Vial Sliding Scale - SQ 2 units BID [facility] Administration Protocol Metoprolol Tartrate 5 mg 10/07/19 23:27 10/08/19 11:40 Lopressor Injection - IVPUSH 5 mg Q4H PRN Administration HYPERTENSION Metoprolol Tartrate 25 mg 10/08/19 14:43 10/11/19 09:40 Lopressor - PO 25 mg BID [facility] Administration Pantoprazole Sodium 40 mg 09/29/19 11:00 10/11/19 09:41 Protonix Iv IVPUSH 40 mg DAILY [facility] Administration Polyethylene Glycol 17 gm 10/03/19 21:00 10/10/19 21:03 Miralax (For Daily Use) - NGT 17 gm HS@2100 [facility] Administration Scopolamine HBr 1 patch 10/08/19 22:00 10/09/19 03:27 Transderm-Scop - TD 1 patch Q72H [facility] Administration Vent: RR 18, TV 390, FiO2 80, PEEP 10 (sat 99%) Drips: 6 NE, 10 versed, 100 fentanyl, 30 propofol ASSESSMENT/PLAN: 53yo M with PMHx of CHF, afib/flutter on eliquis, sarcoidosis, guillan barre, morbid obesity, previously hospitalized with repeated intubations/extubations for CHF exacerbation, another hospitalization for COVID including tracheostomy and decanulation, currently intubated and sedated with continued rate control for persistent aflutter and tachycardia. #Neuro - currently sedated and intubated #Cardio h/o afib/aflutter, CHF exacerbation - rate controlled with PO diltiazem and metoprolol. IV metoprolol PRN - changed from apixaban to enoxaparin in anticipation of tracheostomy on Sunday - MAP goal > 65, wean norepi as tolerable - continue home dose atorvastatin #pulm acute hypoxic hypercapnic respiratory failure secondary to CHF exacerbation - patient remains intubated, decreased FiO2 to 80% and considering trach early next week - scopolamine patch to thin secretions. #ID sputum growing ESBL and MRSA, urine culture growing enterobacter - continue meropenem and vancomycin - vanc trough low (8.4 on 10/09/2019) - order placed to retake trough on 10/13/2019 before 4th dose #Endo - BGM ACHS - continue SS #heme anemia, at baseline - monitor Hgb daily #GI - stool softners with miralax #FEN - promote tube feeds (high protein, low kcal) #PPx - DVT: enoxaparin - GI: pentoprazole #LTD - NG tube 10/07 - central line RIJ 10/05 - A line 10/04 - ortiz catheter 09/26 Tana Madrigal # [phone] (understands [place] but only speaks [place]) Dispo - continue to monitor in ICU Visit type - Emergency Visit Emergency Visit: Yes ED Registration Date: 09/27/19 Care time: The patient presented to the Emergency Department on the above date and was hospitalized for further evaluation of their emergent condition. - New Patient This patient is new to me today: No - Critical Care Critical Care patient: Yes Total Critical Care Time (in minutes): 37 Critical Care Statement: The care of this patient involved high complexity decision making to prevent further life threatening deterioration of the patient's condition and/or to evaluate & treat vital organ system(s) failure or risk of failure. ATTENDING PHYSICIAN STATEMENT I saw and evaluated the patient. I reviewed the resident's note and discussed the case with the resident. I agree with the resident's findings and plan as documented. SUBJECTIVE: OBJECTIVE: ASSESSMENT AND PLAN:
[2019-10-11] MEDS: ATORVASTATIN CA 40 MG TABLET (FP) PO SCH (21:04)
[2019-10-11] MEDS: CHLORHEXIDINE GLUCONATE 4% CLEANSER FOR DECOLONIZATION TP SCH (21:05)
[2019-10-11] MEDS: POLYETHYLENE GLYCOL 3350 119 GM BTL NGT SCH (21:05)
[2019-10-11] MEDS: SCOPOLAMINE HYDROBROMIDE 1 PATCH PATCH.TD72 TD SCH (21:08)
[2019-10-12] MEDS ORDERED: PROPOFOL 1,000,000 MCG/100 ML VIAL ONE (01:04)
[2019-10-12] MEDS ORDERED: MEROPENEM 1 GM VIAL (RESTRICTED TO ID) IVPB ONE ×3 (01:04→18:00)
[2019-10-12] MEDS ORDERED: DEXTROSE 5%-WATER 100 ML IVPB ONE ×3 (01:04→18:00)
[2019-10-12] MEDS: MEROPENEM 1 GM in DEXTROSE 5%-WATER 100 ML IVPB SCH ×3 (01:09→18:00)
[2019-10-12] MEDS: PROPOFOL 1,000,000 MCG/100 ML VIAL IVPB SCH ×3 (01:10→22:05)
[2019-10-12] MEDS: dilTIAZem HCL 60 MG TABLET PO SCH ×5 (01:10→23:45)
[2019-10-12] MEDS: FENTANYL NS IVPB 500 MCG/100 ML BAG IVPB SCH ×2 (02:00→19:30)
[2019-10-12] MEDS ORDERED: fentaNYL CITRATE 250 MCG/5 ML VIAL ONE (02:18)
[2019-10-12 07:03] LABS: BASO % 1.2 % (0-2.0); EOS % 1.2 % (0-4.5); HEMATOCRIT 26.5 % (35.4-49); HEMOGLOBIN 8.4 GM/dL (11.7-16.9); LYMPH % 5.3 % (8-40); MCH 24.9 pg (25.7-33.7); MCHC 31.8 g/dl (32.0-35.9); MEAN CELL VOLUME 78.1 fl (80-96); MEAN PLT VOLUME 8.3 fl (7.5-11.1); MONO % 11.2 % (3.8-10.2); NEUT % 81.1 % (42.8-82.8); PLATELET COUNT 331 K/MM3 (134-434); RBC 3.39 M/mm3 (4.00-5.60); RDW 17.8 % (11.9-15.9); WHITE BLOOD COUNT 5.5 K/mm3 (4.0-10.0)
[2019-10-12 07:39] LABS: ALBUMIN 1.7 g/dl (3.4-5.0); BILIRUBIN,TOTAL 0.3 mg/dL (0.2-1); BLOOD UREA NITROGEN 33.2 mg/dL (7-18); CALCIUM 8.6 mg/dL (8.5-10.1); CREATININE 0.7 mg/dL (0.55-1.3); MAGNESIUM 1.7 mg/dL (1.8-2.4); POTASSIUM 4.8 mmol/L (3.5-5.1)
[2019-10-12] MEDS ORDERED: MAGNESIUM SULF 50% (8.12 MEQ/2 ML-1 GM VIAL) IVPB ONE (08:45)
[2019-10-12] MEDS ORDERED: MIDAZOLAM IN 0.9 % SOD.CHLORID 1 MG/1 ML PLAST..BAG ONE ×2 (09:19→18:00)
[2019-10-12] MEDS: METOPROLOL TARTRATE 25 MG TABLET (FP) PO SCH ×2 (10:28→21:31)
[2019-10-12] MEDS: ENOXAPARIN NA (PORCINE) 120 MG/0.8 ML DISP.SYRIN SQ SCH ×2 (10:28→21:30)
[2019-10-12] MEDS: PANTOPRAZOLE SODIUM 40 MG VIAL IVPUSH SCH (10:28)
[2019-10-12] MEDS: CHLORHEXIDINE GLUCONATE 0.12% 15ML CUP MM SCH ×2 (10:30→21:31)
[2019-10-12] MEDS: AMINO ACIDS/PROTEIN HYDROLYS 30 ML LIQUID.PKT PO SCH ×2 (10:30→18:00)
--- NOTE | 2019-10-12 11:02 | PN ---
Teaching Attending Note Name of Resident: Apryl Guzman ATTENDING PHYSICIAN STATEMENT I saw and evaluated the patient. I reviewed the resident's note and discussed the case with the resident. I agree with the resident's findings and plan as documented. SUBJECTIVE: Pt seen and examined in the ICU. Remains intubated, sedated on low dose levophed gtt. Vented on volume assist control with 80% FiO2, PEEP 10. OBJECTIVE: Vital Signs Period Temp Pulse Resp BP Sys/Kenyon Pulse Ox Last 24 Hr 97.6 F-98.9 F 90-113 18-64 92-112/56-81 96-100 Intake & Output 10/09/19 10/10/19 10/11/19 10/12/19 23:59 23:59 23:59 23:59 Intake Total 2284.6 3098.4 3437.6 1490 Output Total 1400 1550 1650 1000 Balance 884.6 1548.4 1787.6 490 Weight 120.882 kg 120.837 kg 122 kg 123.519 kg Gen: intubated, sedated Heart: RRR Lung: scattered rhonchi Abd: soft, nontender Ext: no edema CBC, BMP 10/12/19 05:30 10/12/19 05:30 Active Medications Amino Acids (Prosource No Carb Liquid Pkt) 30 ml PO BID@0800,1730 [facility] Last Admin: 10/12/19 10:30 Dose: 30 ml Documented by: Atorvastatin Calcium (Lipitor -) 40 mg PO [facility] Last Admin: 10/11/19 21:04 Dose: 40 mg Documented by: Chlorhexidine Gluconate (Hibiclens For Decolonization -) 1 applic TP [facility] Last Admin: 10/11/19 21:05 Dose: 1 applic Documented by: Chlorhexidine Gluconate (Peridex -) 15 ml MM BID [facility] Last Admin: 10/12/19 10:30 Dose: 15 ml Documented by: Diltiazem HCl (Cardizem -) 90 mg PO Q6HPO [facility] Last Admin: 10/12/19 06:05 Dose: 90 mg Documented by: Enoxaparin Sodium (Lovenox -) 120 mg SQ BID [facility] Last Admin: 10/12/19 10:28 Dose: 120 mg Documented by: Midazolam HCl 100 mg/ Sodium (Chloride) 100 mls @ 1 mls/hr IVPB TITR [facility]; Protocol Last Admin: 10/11/19 23:00 Dose: 10 mg/hr, 10 mls/hr Documented by: Propofol (Diprivan -) 1,000,000 mcg in 100 mls @ 8.165 mls/hr IVPB TITR [facility]; Protocol Last Admin: 10/12/19 05:00 Dose: 30 mcg/kg/min, 24.494 mls/hr Documented by: Vancomycin HCl (Vancomycin (Pre-Docked)) 1,000 mg in 250 mls @ 200 mls/hr IVPB Q24H [facility]; Protocol Last Admin: 10/11/19 11:10 Dose: 200 mls/hr Documented by: Fentanyl (Sublimaze Ivpb) 500 mcg in 100 mls @ 1 mls/hr IVPB TITR [facility]; Protocol Last Admin: 10/12/19 02:00 Dose: 100 mcg/hr, 20 mls/hr Documented by: Norepinephrine Bitartrate (Levophed Bag) 8,000 mcg in 500 mls @ 18.75 mls/hr IVPB TITR [facility]; Protocol Last Titration: 10/12/19 06:45 Dose: 2 mcg/min, 7.5 mls/hr Documented by: Meropenem 1 gm/ Dextrose 100 mls @ 200 mls/hr IVPB Q8H-IV [facility] Last Admin: 10/12/19 10:30 Dose: 200 mls/hr Documented by: Insulin Aspart (Novolog Vial Sliding Scale -) 1 vial SQ BID [facility]; Protocol Last Admin: 10/11/19 21:07 Dose: 2 units Documented by: Metoprolol Tartrate (Lopressor Injection -) 5 mg IVPUSH Q4H PRN PRN Reason: HYPERTENSION Last Admin: 10/08/19 11:40 Dose: 5 mg Documented by: Metoprolol Tartrate (Lopressor -) 25 mg PO BID [facility] Last Admin: 10/12/19 10:28 Dose: 25 mg Documented by: Pantoprazole Sodium (Protonix Iv) 40 mg IVPUSH DAILY [facility] Last Admin: 10/12/19 10:28 Dose: 40 mg Documented by: Polyethylene Glycol (Miralax (For Daily Use) -) 17 gm NGT HS@2100 [facility] Last Admin: 10/11/19 21:05 Dose: 17 gm Documented by: Scopolamine HBr (Transderm-Scop -) 1 patch TD Q72H [facility] Last Admin: 10/11/19 21:08 Dose: 1 patch Documented by: ASSESSMENT AND PLAN: Acute Hypoxic and Hypercapneic Respiratory Failure UTI Pneumonia ARDS Septic Shock Acute on Chronic Diastolic Heart Failure Volume Overload Atrial Fibrillation/Flutter with RVR h/o COVID19 Sarcoidosis Morbid Obesity EMMY/OHS Anemia - continue antibiotics per ID - titrate pressors to maintain MAP > 65 - rate control - continue anticoagulation - monitor urine output, creatinine - continue volume assist control - taper FiO2, PEEP to keep SpO2 >90% - enteral feeds - DVT/GI prophylaxis - continue ICU monitoring - may need tracheostomy for prolonged intubation and failure to wean critical care time spent in reviewing chart, evaluating patient and formulating plan 35 min
--- NOTE | 2019-10-12 11:12 | PN ---
Progress Note, Physician Chief Complaint: Events noted Remains intubated and sedated Atrial flutter with RVR History of Present Illness: Patient was seen and examined in ICU. Mechanically ventilated. Chart was reviewed - Current Medication List Current Medications: Active Medications Amino Acids (Prosource No Carb Liquid Pkt) 30 ml PO BID@0800,1730 [facility] Last Admin: 10/12/19 10:30 Dose: 30 ml Documented by: Atorvastatin Calcium (Lipitor -) 40 mg PO HS [facility] Last Admin: 10/11/19 21:04 Dose: 40 mg Documented by: Chlorhexidine Gluconate (Hibiclens For Decolonization -) 1 applic TP HS [facility] Last Admin: 10/11/19 21:05 Dose: 1 applic Documented by: Chlorhexidine Gluconate (Peridex -) 15 ml MM BID [facility] Last Admin: 10/12/19 10:30 Dose: 15 ml Documented by: Diltiazem HCl (Cardizem -) 90 mg PO Q6HPO [facility] Last Admin: 10/12/19 06:05 Dose: 90 mg Documented by: Enoxaparin Sodium (Lovenox -) 120 mg SQ BID [facility] Last Admin: 10/12/19 10:28 Dose: 120 mg Documented by: Midazolam HCl 100 mg/ Sodium (Chloride) 100 mls @ 1 mls/hr IVPB TITR [facility]; Protocol Last Admin: 10/11/19 23:00 Dose: 10 mg/hr, 10 mls/hr Documented by: Propofol (Diprivan -) 1,000,000 mcg in 100 mls @ 8.165 mls/hr IVPB TITR [facility]; Protocol Last Admin: 10/12/19 05:00 Dose: 30 mcg/kg/min, 24.494 mls/hr Documented by: Vancomycin HCl (Vancomycin (Pre-Docked)) 1,000 mg in 250 mls @ 200 mls/hr IVPB Q24H [facility]; Protocol Last Admin: 10/11/19 11:10 Dose: 200 mls/hr Documented by: Fentanyl (Sublimaze Ivpb) 500 mcg in 100 mls @ 1 mls/hr IVPB TITR [facility]; Protocol Last Admin: 10/12/19 02:00 Dose: 100 mcg/hr, 20 mls/hr Documented by: Norepinephrine Bitartrate (Levophed Bag) 8,000 mcg in 500 mls @ 18.75 mls/hr IVPB TITR [facility]; Protocol Last Titration: 10/12/19 06:45 Dose: 2 mcg/min, 7.5 mls/hr Documented by: Meropenem 1 gm/ Dextrose 100 mls @ 200 mls/hr IVPB Q8H-IV [facility] Last Admin: 10/12/19 10:30 Dose: 200 mls/hr Documented by: Insulin Aspart (Novolog Vial Sliding Scale -) 1 vial SQ BID [facility]; Protocol Last Admin: 10/11/19 21:07 Dose: 2 units Documented by: Metoprolol Tartrate (Lopressor Injection -) 5 mg IVPUSH Q4H PRN PRN Reason: HYPERTENSION Last Admin: 10/08/19 11:40 Dose: 5 mg Documented by: Metoprolol Tartrate (Lopressor -) 25 mg PO BID [facility] Last Admin: 10/12/19 10:28 Dose: 25 mg Documented by: Pantoprazole Sodium (Protonix Iv) 40 mg IVPUSH DAILY [facility] Last Admin: 10/12/19 10:28 Dose: 40 mg Documented by: Polyethylene Glycol (Miralax (For Daily Use) -) 17 gm NGT HS@2100 [facility] Last Admin: 10/11/19 21:05 Dose: 17 gm Documented by: Scopolamine HBr (Transderm-Scop -) 1 patch TD Q72H [facility] Last Admin: 10/11/19 21:08 Dose: 1 patch Documented by: - Objective Vital Signs: Vital Signs Temperature 97.6 F 10/12/19 10:00 Pulse Rate 113 H 10/12/19 10:00 Respiratory Rate 18 10/12/19 10:00 Blood Pressure 107/80 10/12/19 10:00 O2 Sat by Pulse Oximetry (%) 100 10/12/19 08:00 Cardiovascular: Yes: Tachycardia, Pulse Irregular, S1, S2 Respiratory: Yes: Mechanically Ventilated Gastrointestinal: Yes: Normal Bowel Sounds, Soft. No: Tenderness Edema: Yes Edema: LLE: Trace, RLE: Trace Labs: CBC, BMP 10/12/19 05:30 10/12/19 05:30 Problem List - Problems (1) Acute respiratory failure with hypoxia and hypercapnia Code(s): J96.01 - ACUTE RESPIRATORY FAILURE WITH HYPOXIA; J96.02 - ACUTE RESPIRATORY FAILURE WITH HYPERCAPNIA (2) CHF (congestive heart failure) Code(s): I50.9 - HEART FAILURE, UNSPECIFIED Qualifiers: Heart failure type: unspecified Heart failure chronicity: acute on chronic Qualified Code(s): I50.9 - Heart failure, unspecified (3) Respiratory distress Code(s): R06.03 - ACUTE RESPIRATORY DISTRESS (4) Acute on chronic renal failure Code(s): N17.9 - ACUTE KIDNEY FAILURE, UNSPECIFIED; N18.9 - CHRONIC KIDNEY DISEASE, UNSPECIFIED (5) Atrial fibrillation and flutter Code(s): I48.91 - UNSPECIFIED ATRIAL FIBRILLATION; I48.92 - UNSPECIFIED ATRIAL FLUTTER (6) Septic shock Code(s): A41.9 - SEPSIS, UNSPECIFIED ORGANISM; R65.21 - SEVERE SEPSIS WITH SEPTIC SHOCK (7) Sleep apnea Code(s): G47.30 - SLEEP APNEA, UNSPECIFIED Qualifiers: Sleep apnea type: obstructive Qualified Code(s): G47.33 - Obstructive sleep apnea (adult) (pediatric) (8) Type 2 diabetes mellitus Code(s): E11.9 - TYPE 2 DIABETES MELLITUS WITHOUT COMPLICATIONS Qualifiers: Diabetes mellitus vermin exterminator insulin use: without residential use Diabetes mellitus complication detail: with chronic kidney disease Chronic kidney disease stage: stage 2 (mild) Assessment/Plan 1. Acute hypoxic and hypercapneic respiratory failure currently on mechanical ventilation 2. Pneumonia, post septic shock and ARDS 3. Sarcoidosis confirmed by skin biopsy 4. OSAS 5. Persistent Atrial flutter/AF rate-controlled 6. Acute on chronic diastolic heart failure 7. Acute on CKD with hyperkalemia 8. Type 2 DM 9. Anemia 10. History of COVID 19 PLAN: 1. Wean vent per Critical Care Team. 2. IV diuresis with monitoring renal function and electrolytes 3. Rate-control with oral Cardizem 90 mg mg QID and Lopressor 25 mg BID for rate control. IV Cardizem and IV Lopressor as needed. Continue Eliquis 5 mg BID 4. Wean Pressors (currently still on Levophed) 5. Hold lisinopril 10 mg QD pending hemodynamic and renal stability and continue Lipitor 40 mg QHS. 6. Follow up with Dr. Genaro Davila (cardiology at [place]) as outpatient. Consider cardiac PET or MRI to exclude cardiac involvement in sarcoidosis as outpatient Guarded Shin Cutler MD
[2019-10-12] MEDS: VANCOMYCIN 1 GRAM (PRE-DOCKED) 1,000 MG/250 ML BAG IVPB SCH (11:30)
--- NOTE | 2019-10-12 11:38 | PN ---
Physical Exam: SUBJECTIVE: Patient had no acute events overnight, OBJECTIVE: Vital Signs Period Temp Pulse Resp BP Sys/[place] Pulse Ox Last 24 Hr 97.6 F-98.9 F 90-113 18-64 92-112/56-81 96-100 GENERAL: The patient is sedated intubated HEAD: Normal with no signs of trauma. EYES: PERRL, ENT: moist mucous membranes. NECK: Trachea midline, full range of motion, supple. LUNGS: Breath sounds equal, clear to auscultation bilaterally, HEART: tachycardic ABDOMEN: Soft, nontender, nondistended, EXTREMITIES: 2+ pulses, warm, well-perfused, no edema. SKIN: Warm, dry, normal turgor, no rashes or lesions noted CBC, BMP 10/12/19 05:30 10/12/19 05:30 Active Medications Amino Acids (Prosource No Carb Liquid Pkt) 30 ml PO BID@0800,1730 [facility] Last Admin: 10/12/19 10:30 Dose: 30 ml Documented by: Atorvastatin Calcium (Lipitor -) 40 mg PO HS [facility] Last Admin: 10/11/19 21:04 Dose: 40 mg Documented by: Chlorhexidine Gluconate (Hibiclens For Decolonization -) 1 applic TP HS [facility] Last Admin: 10/11/19 21:05 Dose: 1 applic Documented by: Chlorhexidine Gluconate (Peridex -) 15 ml MM BID [facility] Last Admin: 10/12/19 10:30 Dose: 15 ml Documented by: Diltiazem HCl (Cardizem -) 90 mg PO Q6HPO [facility] Last Admin: 10/12/19 06:05 Dose: 90 mg Documented by: Enoxaparin Sodium (Lovenox -) 120 mg SQ BID [facility] Last Admin: 10/12/19 10:28 Dose: 120 mg Documented by: Midazolam HCl 100 mg/ Sodium (Chloride) 100 mls @ 1 mls/hr IVPB TITR [facility]; Protocol Last Admin: 10/11/19 23:00 Dose: 10 mg/hr, 10 mls/hr Documented by: Propofol (Diprivan -) 1,000,000 mcg in 100 mls @ 8.165 mls/hr IVPB TITR [facility]; Protocol Last Admin: 10/12/19 05:00 Dose: 30 mcg/kg/min, 24.494 mls/hr Documented by: Vancomycin HCl (Vancomycin (Pre-Docked)) 1,000 mg in 250 mls @ 200 mls/hr IVPB Q24H [facility]; Protocol Last Admin: 10/11/19 11:10 Dose: 200 mls/hr Documented by: Fentanyl (Sublimaze Ivpb) 500 mcg in 100 mls @ 1 mls/hr IVPB TITR [facility]; Protocol Last Admin: 10/12/19 02:00 Dose: 100 mcg/hr, 20 mls/hr Documented by: Norepinephrine Bitartrate (Levophed Bag) 8,000 mcg in 500 mls @ 18.75 mls/hr IVPB TITR [facility]; Protocol Last Titration: 10/12/19 06:45 Dose: 2 mcg/min, 7.5 mls/hr Documented by: Meropenem 1 gm/ Dextrose 100 mls @ 200 mls/hr IVPB Q8H-IV [facility] Last Admin: 10/12/19 10:30 Dose: 200 mls/hr Documented by: Insulin Aspart (Novolog Vial Sliding Scale -) 1 vial SQ BID [facility]; Protocol Last Admin: 10/11/19 21:07 Dose: 2 units Documented by: Metoprolol Tartrate (Lopressor Injection -) 5 mg IVPUSH Q4H PRN PRN Reason: HYPERTENSION Last Admin: 10/08/19 11:40 Dose: 5 mg Documented by: Metoprolol Tartrate (Lopressor -) 25 mg PO BID [facility] Last Admin: 10/12/19 10:28 Dose: 25 mg Documented by: Pantoprazole Sodium (Protonix Iv) 40 mg IVPUSH DAILY [facility] Last Admin: 10/12/19 10:28 Dose: 40 mg Documented by: Polyethylene Glycol (Miralax (For Daily Use) -) 17 gm NGT HS@2100 [facility] Last Admin: 10/11/19 21:05 Dose: 17 gm Documented by: Scopolamine HBr (Transderm-Scop -) 1 patch TD Q72H [facility] Last Admin: 10/11/19 21:08 Dose: 1 patch Documented by: ASSESSMENT/PLAN: 53 yo m w/ dDHF, afib/flutter on eliquis, sarcoidosis, guillan barre, morbid obesity, tracheostomywho is admitted for acute on chronic hypercapnic hypoxic respiratory failure 2/2 to CHF #Neuro -intubated and sedated on propofol/ versed and fentanyl - attempt sedation vacation when vent settings allow #Cardio -h/o afib/aflutter on eliquis, CHF exacerbation -persistently tachycardic -increased cardizem to 90 q6h, metoprolol pushes prn tachycardia -low dose levophed to maintain MAP -hx CHF, holding lasix -08/27/19 Echo: low normal LV function EF 25%, mild LVH, mildly dilated RA and RV, moderate to severe pulmonary HTN - continue to monitor I's &O's, daily weights - continue to hold lisinopril - continue eliquis 5 mg bid #Pulmonary -acute hypoxic hypercapnic respiratory failure 2/2 to CHF exacerbation -maintain saturation >88%, continue to try and wean down vent settings - monitor CXR - trach planned for this week - continue to titrate down O2 settings #ID - sputum growing ESBL and MRSA - Meropenem q8h - Vancomycin daily - contact precautions #GI - stool softeners with miralax #Endo - BGM ACHS - continue SS #Heme - anemia, at baseline - monitor Hgb daily #DVT ppx -Eliquis 5mg BID #FEN -Promote feeds Dispo: continue to monitor in ICU, f/u trach Visit type - Emergency Visit Emergency Visit: No - New Patient This patient is new to me today: No - Critical Care Critical Care patient: Yes Total Critical Care Time (in minutes): 40 Critical Care Statement: The care of this patient involved high complexity decision making to prevent further life threatening deterioration of the patient's condition and/or to evaluate & treat vital organ system(s) failure or risk of failure. ATTENDING PHYSICIAN STATEMENT I saw and evaluated the patient. I reviewed the resident's note and discussed the case with the resident. I agree with the resident's findings and plan as documented. SUBJECTIVE: OBJECTIVE: ASSESSMENT AND PLAN:
[2019-10-12] MEDS: INSULIN SLIDING SCALE (NOVOLOG) 1 VIAL SQ SCH ×2 (12:27→21:30)
[2019-10-12] MEDS: ATORVASTATIN CA 40 MG TABLET (FP) PO SCH (21:31)
[2019-10-12] MEDS: POLYETHYLENE GLYCOL 3350 119 GM BTL NGT SCH (21:31)
[2019-10-12] MEDS: CHLORHEXIDINE GLUCONATE 4% CLEANSER FOR DECOLONIZATION TP SCH (21:32)
[2019-10-13] MEDS ORDERED: MEROPENEM 1 GM VIAL (RESTRICTED TO ID) IVPB ONE ×3 (00:32→17:26)
[2019-10-13] MEDS ORDERED: DEXTROSE 5%-WATER 100 ML IVPB ONE ×3 (00:33→17:27)
[2019-10-13] MEDS: MEROPENEM 1 GM in DEXTROSE 5%-WATER 100 ML IVPB SCH ×3 (01:06→17:31)
[2019-10-13] MEDS: PROPOFOL 1,000,000 MCG/100 ML VIAL IVPB SCH ×2 (01:07→05:30)
[2019-10-13] MEDS: FENTANYL NS IVPB 500 MCG/100 ML BAG IVPB SCH ×2 (01:08→17:33)
[2019-10-13] MEDS ORDERED: MIDAZOLAM IN 0.9 % SOD.CHLORID 1 MG/1 ML PLAST..BAG ONE ×2 (03:07→12:04)
[2019-10-13] MEDS: MIDAZOLAM 100 MG in SODIUM CHLORIDE 100 ML IVPB SCH (04:00)
[2019-10-13] MEDS: dilTIAZem HCL 60 MG TABLET PO SCH ×4 (05:20→23:58)
--- NOTE | 2019-10-13 06:41 | PN ---
Physical Exam: SUBJECTIVE: Patient seen and examined. Patient is rate controlled with persistent atrial flutter. Remains sedated and intubated. No acute overnight events as per nursing staff. Vanc trough level this morning was 8.3. Vent: RR 18, TV 390, FiO2 60, PEEP 10 (sat 99%) Drips: 2 NE, 10 versed, 100 fentanyl, 40 propofol OBJECTIVE: Vital Signs Period Temp Pulse Resp BP Sys/Kenyon Pulse Ox Last 24 Hr 96.9 F-97.8 F 67-127 18-19 91-156/62-89 97-100 GENERAL: The patient is sedated and intubated. HEAD: NCAT LUNGS: Breath sounds from ventilator equal, CTAB, no wheezes or crackles. HEART: Regular rate and irregular rhythm; S1, S2 normal without murmur, rub or gallop. ABDOMEN: soft, non tender, mildly distended abdomen; BS heard in all four quadrants EXTREMITIES: 2+ pulses, warm, well-perfused, 1+ edema in lower extremities NEUROLOGICAL: Cranial nerves II through XII grossly intact. Normal speech, gait not observed. SKIN: Warm, dry, normal turgor, no rashes or lesions noted Laboratory Results - last 24 hr 10/12/19 10/12/19 10/12/19 05:30 05:30 12:11 WBC 5.5 RBC 3.39 L Hgb 8.4 L Hct 26.5 L MCV 78.1 L MCH 24.9 L MCHC 31.8 L RDW 17.8 H Plt Count 331 MPV 8.3 Absolute Neuts (auto) 4.5 Neutrophils % 81.1 Lymphocytes % 5.3 L D Monocytes % 11.2 H Eosinophils % 1.2 D Basophils % 1.2 Nucleated RBC % 0 Sodium 139 Potassium 4.8 Chloride 100 Carbon Dioxide 32 Anion Gap 7 L BUN 33.2 H Creatinine 0.7 Est GFR (CKD-EPI)AfAm 126.64 Est GFR (CKD-EPI)NonAf 109.27 POC Glucometer 173 Random Glucose 152 H Calcium 8.6 Phosphorus 4.0 Magnesium 1.7 L Total Bilirubin 0.3 AST 16 ALT 15 Alkaline Phosphatase 155 H Total Protein 5.0 L Albumin 1.7 L 10/12/19 20:58 WBC RBC Hgb Hct MCV MCH MCHC RDW Plt Count MPV Absolute Neuts (auto) Neutrophils % Lymphocytes % Monocytes % Eosinophils % Basophils % Nucleated RBC % Sodium Potassium Chloride Carbon Dioxide Anion Gap BUN Creatinine Est GFR (CKD-EPI)AfAm Est GFR (CKD-EPI)NonAf POC Glucometer 206 Random Glucose Calcium Phosphorus Magnesium Total Bilirubin AST ALT Alkaline Phosphatase Total Protein Albumin Active Medications Generic Name Dose Route Start Last Admin Trade Name Freq PRN Reason Stop Dose Admin Amino Acids 30 ml 09/29/19 17:30 10/12/19 18:00 Prosource No Carb Liquid Pkt PO 30 ml BID@0800,1730 [facility] Administration Atorvastatin Calcium 40 mg 10/08/19 22:00 10/12/19 21:31 Lipitor - PO 40 mg HS [facility] Administration Chlorhexidine Gluconate 1 applic 09/27/19 22:00 10/12/19 21:32 Hibiclens For Decolonization - TP 1 applic HS [facility] Administration Chlorhexidine Gluconate 15 ml 10/05/19 22:00 10/12/19 21:31 Peridex - MM 15 ml BID [facility] Administration Diltiazem HCl 90 mg 10/07/19 11:32 10/13/19 05:20 Cardizem - PO 90 mg Q6HPO [facility] Administration Enoxaparin Sodium 120 mg 10/12/19 10:00 10/12/19 21:30 Lovenox - SQ 120 mg BID [facility] Administration Midazolam HCl 100 mg/ Sodium 100 mls @ 1 mls/hr 09/27/19 09:00 10/13/19 04:00 Chloride IVPB 10 mg/hr TITR [facility] 10 mls/hr Administration Protocol 1 MG/HR Propofol 1,000,000 mcg in 100 mls @ 8.165 mls/hr 09/27/19 13:00 10/13/19 05:30 Diprivan - IVPB 40 mcg/kg/min TITR [facility] 32.659 mls/hr Administration Protocol 10 MCG/KG/MIN Vancomycin HCl 1,000 mg in 250 mls @ 200 mls/hr 10/04/19 11:00 10/12/19 11:30 Vancomycin (Pre-Docked) IVPB 200 mls/hr Q24H [facility] Administration Protocol Fentanyl 500 mcg in 100 mls @ 1 mls/hr 10/07/19 17:45 10/13/19 01:08 Sublimaze Ivpb IVPB 100 mcg/hr TITR [facility] 20 mls/hr Administration Protocol 5 MCG/HR Norepinephrine Bitartrate 8,000 mcg in 500 mls @ 18.75 mls/hr 10/07/19 19:15 10/12/19 06:45 Levophed Bag IVPB 2 mcg/min TITR [facility] 7.5 mls/hr Titration Protocol 5 MCG/MIN Meropenem 1 gm/ Dextrose 100 mls @ 200 mls/hr 10/10/19 18:00 10/13/19 01:06 IVPB 200 mls/hr Q8H-IV [facility] Administration Insulin Aspart 1 vial 10/05/19 22:00 10/12/19 21:30 Novolog Vial Sliding Scale - SQ 4 units BID [facility] Administration Protocol Metoprolol Tartrate 5 mg 10/07/19 23:27 10/08/19 11:40 Lopressor Injection - IVPUSH 5 mg Q4H PRN Administration HYPERTENSION Metoprolol Tartrate 25 mg 10/08/19 14:43 10/12/19 21:31 Lopressor - PO 25 mg BID [facility] Administration Pantoprazole Sodium 40 mg 09/29/19 11:00 10/12/19 10:28 Protonix Iv IVPUSH 40 mg DAILY [facility] Administration Polyethylene Glycol 17 gm 10/03/19 21:00 10/12/19 21:31 Miralax (For Daily Use) - NGT 17 gm HS@2100 [facility] Administration Scopolamine HBr 1 patch 10/08/19 22:00 10/11/19 21:08 Transderm-Scop - TD 1 patch Q72H [facility] Administration ASSESSMENT/PLAN: 53 yo m w/ dDHF, afib/flutter on eliquis, sarcoidosis, guillan barre, morbid obesity, tracheostomy with reversal (during [facility] hospitalization) who is admitted for acute on chronic hypercapnic hypoxic respiratory failure 2/2 to CHF. #Neuro -intubated and sedated on propofol/versed and fentanyl - attempt sedation vacation daily #Cardio h/o afib/aflutter, CHF exacerbation, persistently tachycardic - cardizem 90 q6h, metoprolol 25 bid, metoprolol pushes prn for tachycardia - changed from apixaban to enoxaparin in anticipation of tracheostomy on Sunday - MAP goal > 65, continue to wean norepi as tolerable - continue home dose atorvastatin hx CHF, holding lasix - 08/27/19 Echo: low normal LV function EF 25%, mild LVH, mildly dilated RA and RV, moderate to severe pulmonary HTN - continue to monitor I's &O's, daily weights - continue to hold lisinopril #pulm acute hypoxic hypercapnic respiratory failure 2/2 to CHF exacerbation - maintain saturation >88%, continue to try and wean down vent settings - monitor CXR - trach planned for tomorrow; consent obtained - in chart - continue to titrate down O2 settings as tolerated #ID sputum growing ESBL and MRSA - Meropenem q8h - Vancomycin daily - contact precautions #Endo - BGM ACHS - continue SS #heme anemia, at baseline - monitor Hgb daily #GI constipation - stool softners with miralax - enema today #FEN - promote tube feeds (high protein, low kcal) #PPx - DVT: enoxaparin - GI: pentoprazole #LTD - NG tube 10/07 - central line [facility]IJ 10/12 (swapped from [facility] 10/05) - A line 10/04 - ortiz catheter 09/26 Tana Madrigal # [phone] (understands Uzbek but only speaks Turkish) Dispo - continue to monitor in ICU Visit type - Emergency Visit Emergency Visit: Yes ED Registration Date: 09/27/19 Care time: The patient presented to the Emergency Department on the above date and was hospitalized for further evaluation of their emergent condition. - New Patient This patient is new to me today: Yes Date on this admission: 10/13/19 - Critical Care Critical Care patient: Yes Total Critical Care Time (in minutes): 37 Critical Care Statement: The care of this patient involved high complexity decision making to prevent further life threatening deterioration of the patient's condition and/or to evaluate & treat vital organ system(s) failure or risk of failure. ATTENDING PHYSICIAN STATEMENT I saw and evaluated the patient. I reviewed the resident's note and discussed the case with the resident. I agree with the resident's findings and plan as documented. SUBJECTIVE: OBJECTIVE: ASSESSMENT AND PLAN:
[2019-10-13 07:33] LABS: HEMATOCRIT 27.3 % (35.4-49); HEMOGLOBIN 8.7 GM/dL (11.7-16.9); MCH 24.9 pg (25.7-33.7); MCHC 31.9 g/dl (32.0-35.9); MEAN PLT VOLUME 8.7 fl (7.5-11.1); PLATELET COUNT 353 K/MM3 (134-434); RBC 3.49 M/mm3 (4.00-5.60); RDW 17.9 % (11.9-15.9); WHITE BLOOD COUNT 7.1 K/mm3 (4.0-10.0)
[2019-10-13 08:02] LABS: ALBUMIN 1.8 g/dl (3.4-5.0); BILIRUBIN,TOTAL 0.5 mg/dL (0.2-1); CREATININE 0.6 mg/dL (0.55-1.3); POTASSIUM 4.7 mmol/L (3.5-5.1)
[2019-10-13 08:03] LABS: BLOOD UREA NITROGEN 31.2 mg/dL (7-18); CALCIUM 8.2 mg/dL (8.5-10.1); MAGNESIUM 1.9 mg/dL (1.8-2.4)
--- NOTE | 2019-10-13 08:20 | PN ---
Progress Note, Physician History of Present Illness: Remains intubated, sedated on low dose levophed gtt. Vented on volume assist control with 60% FiO2, PEEP 10. - Current Medication List Current Medications: Active Medications Amino Acids (Prosource No Carb Liquid Pkt) 30 ml PO BID@0800,1730 [facility] Last Admin: 10/12/19 18:00 Dose: 30 ml Documented by: Atorvastatin Calcium (Lipitor -) 40 mg PO HS [facility] Last Admin: 10/12/19 21:31 Dose: 40 mg Documented by: Chlorhexidine Gluconate (Hibiclens For Decolonization -) 1 applic TP HS [facility] Last Admin: 10/12/19 21:32 Dose: 1 applic Documented by: Chlorhexidine Gluconate (Peridex -) 15 ml MM BID [facility] Last Admin: 10/12/19 21:31 Dose: 15 ml Documented by: Diltiazem HCl (Cardizem -) 90 mg PO Q6HPO [facility] Last Admin: 10/13/19 05:20 Dose: 90 mg Documented by: Enoxaparin Sodium (Lovenox -) 120 mg SQ BID [facility] Last Admin: 10/12/19 21:30 Dose: 120 mg Documented by: Midazolam HCl 100 mg/ Sodium (Chloride) 100 mls @ 1 mls/hr IVPB TITR [facility]; Protocol Last Admin: 10/13/19 04:00 Dose: 10 mg/hr, 10 mls/hr Documented by: Propofol (Diprivan -) 1,000,000 mcg in 100 mls @ 8.165 mls/hr IVPB TITR [facility]; Protocol Last Admin: 10/13/19 05:30 Dose: 40 mcg/kg/min, 32.659 mls/hr Documented by: Vancomycin HCl (Vancomycin (Pre-Docked)) 1,000 mg in 250 mls @ 200 mls/hr IVPB Q24H [facility]; Protocol Last Admin: 10/12/19 11:30 Dose: 200 mls/hr Documented by: Fentanyl (Sublimaze Ivpb) 500 mcg in 100 mls @ 1 mls/hr IVPB TITR [facility]; Protocol Last Admin: 10/13/19 01:08 Dose: 100 mcg/hr, 20 mls/hr Documented by: Norepinephrine Bitartrate (Levophed Bag) 8,000 mcg in 500 mls @ 18.75 mls/hr IVPB TITR [facility]; Protocol Last Titration: 10/12/19 06:45 Dose: 2 mcg/min, 7.5 mls/hr Documented by: Meropenem 1 gm/ Dextrose 100 mls @ 200 mls/hr IVPB Q8H-IV [facility] Last Admin: 10/13/19 01:06 Dose: 200 mls/hr Documented by: Insulin Aspart (Novolog Vial Sliding Scale -) 1 vial SQ BID [facility]; Protocol Last Admin: 10/12/19 21:30 Dose: 4 units Documented by: Metoprolol Tartrate (Lopressor Injection -) 5 mg IVPUSH Q4H PRN PRN Reason: HYPERTENSION Last Admin: 10/08/19 11:40 Dose: 5 mg Documented by: Metoprolol Tartrate (Lopressor -) 25 mg PO BID [facility] Last Admin: 10/12/19 21:31 Dose: 25 mg Documented by: Pantoprazole Sodium (Protonix Iv) 40 mg IVPUSH DAILY [facility] Last Admin: 10/12/19 10:28 Dose: 40 mg Documented by: Polyethylene Glycol (Miralax (For Daily Use) -) 17 gm NGT HS@2100 [facility] Last Admin: 10/12/19 21:31 Dose: 17 gm Documented by: Scopolamine HBr (Transderm-Scop -) 1 patch TD Q72H [facility] Last Admin: 10/11/19 21:08 Dose: 1 patch Documented by: - Objective Vital Signs: Vital Signs Temperature 97.8 F 10/13/19 06:00 Pulse Rate 90 10/13/19 06:00 Respiratory Rate 18 10/13/19 06:00 Blood Pressure 113/71 10/13/19 06:00 O2 Sat by Pulse Oximetry (%) 98 10/13/19 04:15 Constitutional: Yes: Other (Sedated and intubated) Cardiovascular: Yes: Regular Rate and Rhythm Respiratory: Yes: Intubated, Mechanically Ventilated, Rhonchi Gastrointestinal: Yes: Normal Bowel Sounds, Soft Genitourinary: Yes: Andrews Present Edema: Yes Edema: LLE: Trace, RLE: Trace Labs: CBC, BMP 10/13/19 05:40 10/13/19 05:40 INR, PTT INR 1.02 (0.83-1.09) 09/27/19 05:20 - ....Imaging EKG: Report Reviewed (Tele: Rate-controlled aflutter) Problem List - Problems (1) Acute respiratory failure with hypoxia and hypercapnia Code(s): J96.01 - ACUTE RESPIRATORY FAILURE WITH HYPOXIA; J96.02 - ACUTE RESPIRATORY FAILURE WITH HYPERCAPNIA (2) Acute decompensated heart failure Code(s): I50.9 - HEART FAILURE, UNSPECIFIED (3) Acute hypercapnic respiratory failure due to obstructive sleep apnea Code(s): J96.02 - ACUTE RESPIRATORY FAILURE WITH HYPERCAPNIA; G47.33 - OBSTRUCTIVE SLEEP APNEA (ADULT) (PEDIATRIC) (4) Atrial fibrillation and flutter Code(s): I48.91 - UNSPECIFIED ATRIAL FIBRILLATION; I48.92 - UNSPECIFIED ATRIAL FLUTTER (5) Sarcoidosis of other sites Code(s): D86.89 - SARCOIDOSIS OF OTHER SITES (6) Sleep apnea Code(s): G47.30 - SLEEP APNEA, UNSPECIFIED Qualifiers: Sleep apnea type: obstructive Qualified Code(s): G47.33 - Obstructive sleep apnea (adult) (pediatric) (7) Type 2 diabetes mellitus Code(s): E11.9 - TYPE 2 DIABETES MELLITUS WITHOUT COMPLICATIONS Qualifiers: Diabetes mellitus terminologist insulin use: without group home use Diabetes mellitus complication detail: with chronic kidney disease Chronic kidney disease stage: stage 2 (mild) Assessment/Plan 05/01/2019 Normal LV and RV size and fxn, tr TR 03/14/2019 Normal LV size and fxn, no thrombus ADEEL, mild-mod dilated and HK RV, tr MR, mild-mod TR, tr VA, trace pericardial effusion 1. Acute hypoxic and hypercapneic respiratory failure currently on mechanical ventilation 2. Pneumonia, post septic shock and ARDS 3. Sarcoidosis confirmed by skin biopsy 4. OSAS/OHS 5. Persistent Atrial flutter/AF rate-controlled 6. Acute on chronic diastolic heart failure 7. Acute on CKD with hyperkalemia 8. Type 2 DM 9. Anemia 10. History of COVID 19 PLAN: 1. Taper FiO2, PEEP to keep SpO2 >90%, will need tracheostomy for prolonged intubation and failure to wean 2. Diuresis as needed with monitoring renal function and electrolytes 3. Rate-control with oral Cardizem 90 mg mg QID and Lopressor 25 mg BID for rate control. IV Cardizem and IV Lopressor as needed. Continue Lovenox 120 mg BID pending tracheostomy, GI prophylaxis 4. Wean Levopphed to maintain MAP > 65, abx course per ID 5. Hold lisinopril 10 mg QD pending hemodynamic and renal stability and continue Lipitor 40 mg QHS. 6. Follow up with Dr. Genaro Davila (cardiology at [facility]) as outpatient. Consider cardiac PET or MRI to exclude cardiac involvement in sarcoidosis as outpatient
[2019-10-13] MEDS: AMINO ACIDS/PROTEIN HYDROLYS 30 ML LIQUID.PKT PO SCH ×2 (09:47→17:31)
[2019-10-13] MEDS: ENOXAPARIN NA (PORCINE) 120 MG/0.8 ML DISP.SYRIN SQ SCH ×2 (09:47→21:14)
[2019-10-13] MEDS: METOPROLOL TARTRATE 25 MG TABLET (FP) PO SCH ×2 (09:47→21:18)
[2019-10-13] MEDS: CHLORHEXIDINE GLUCONATE 0.12% 15ML CUP MM SCH ×2 (09:48→21:17)
[2019-10-13] MEDS: PANTOPRAZOLE SODIUM 40 MG VIAL IVPUSH SCH (09:48)
[2019-10-13] MEDS: VANCOMYCIN 1 GRAM (PRE-DOCKED) 1,000 MG/250 ML BAG IVPB SCH (11:15)
--- NOTE | 2019-10-13 11:27 | PN ---
Teaching Attending Note Name of Resident: Emmanuel Cheek ATTENDING PHYSICIAN STATEMENT I saw and evaluated the patient. I reviewed the resident's note and discussed the case with the resident. I agree with the resident's findings and plan as documented. SUBJECTIVE: Pt seen and examined in the ICU. Remains intubated, sedated on low dose levophed gtt. Vented on volume assist control with 60% FiO2, PEEP 10. OBJECTIVE: Vital Signs Period Temp Pulse Resp BP Sys/[place] Pulse Ox Last 24 Hr 96.9 F-97.8 F 67-127 18-19 91-156/62-89 96-100 Intake & Output 10/10/19 10/11/19 10/12/19 10/13/19 23:59 23:59 23:59 23:59 Intake Total 3098.4 3437.6 3480 1490 Output Total 1550 1650 1900 600 Balance 1548.4 1787.6 1580 890 Weight 120.837 kg 122 kg 123.519 kg 123.519 kg Gen: intubated, sedated Heart: RRR Lung: scattered rhonchi Abd: soft, nontender Ext: no edema CBC, BMP 10/13/19 05:40 10/13/19 05:40 Active Medications Amino Acids (Prosource No Carb Liquid Pkt) 30 ml PO BID@0800,1730 [facility] Last Admin: 10/13/19 09:47 Dose: 30 ml Documented by: Atorvastatin Calcium (Lipitor -) 40 mg PO [facility] Last Admin: 10/12/19 21:31 Dose: 40 mg Documented by: Chlorhexidine Gluconate (Hibiclens For Decolonization -) 1 applic TP [facility] Last Admin: 10/12/19 21:32 Dose: 1 applic Documented by: Chlorhexidine Gluconate (Peridex -) 15 ml MM BID [facility] Last Admin: 10/13/19 09:48 Dose: 15 ml Documented by: Diltiazem HCl (Cardizem -) 90 mg PO Q6HPO [facility] Last Admin: 10/13/19 05:20 Dose: 90 mg Documented by: Enoxaparin Sodium (Lovenox -) 120 mg SQ BID [facility] Last Admin: 10/13/19 09:47 Dose: 120 mg Documented by: Midazolam HCl 100 mg/ Sodium (Chloride) 100 mls @ 1 mls/hr IVPB TITR [facility]; Protocol Last Admin: 10/13/19 04:00 Dose: 10 mg/hr, 10 mls/hr Documented by: Propofol (Diprivan -) 1,000,000 mcg in 100 mls @ 8.165 mls/hr IVPB TITR [facility]; Protocol Last Admin: 10/13/19 05:30 Dose: 40 mcg/kg/min, 32.659 mls/hr Documented by: Vancomycin HCl (Vancomycin (Pre-Docked)) 1,000 mg in 250 mls @ 200 mls/hr IVPB Q24H [facility]; Protocol Last Admin: 10/12/19 11:30 Dose: 200 mls/hr Documented by: Fentanyl (Sublimaze Ivpb) 500 mcg in 100 mls @ 1 mls/hr IVPB TITR [facility]; Protocol Last Admin: 10/13/19 01:08 Dose: 100 mcg/hr, 20 mls/hr Documented by: Norepinephrine Bitartrate (Levophed Bag) 8,000 mcg in 500 mls @ 18.75 mls/hr IVPB TITR [facility]; Protocol Last Titration: 10/12/19 06:45 Dose: 2 mcg/min, 7.5 mls/hr Documented by: Meropenem 1 gm/ Dextrose 100 mls @ 200 mls/hr IVPB Q8H-IV [facility] Last Admin: 10/13/19 09:48 Dose: 200 mls/hr Documented by: Insulin Aspart (Novolog Vial Sliding Scale -) 1 vial SQ BID [facility]; Protocol Last Admin: 10/12/19 21:30 Dose: 4 units Documented by: Metoprolol Tartrate (Lopressor Injection -) 5 mg IVPUSH Q4H PRN PRN Reason: HYPERTENSION Last Admin: 10/08/19 11:40 Dose: 5 mg Documented by: Metoprolol Tartrate (Lopressor -) 25 mg PO BID [facility] Last Admin: 10/13/19 09:47 Dose: 25 mg Documented by: Pantoprazole Sodium (Protonix Iv) 40 mg IVPUSH DAILY [facility] Last Admin: 10/13/19 09:48 Dose: 40 mg Documented by: Polyethylene Glycol (Miralax (For Daily Use) -) 17 gm NGT HS@2100 [facility] Last Admin: 10/12/19 21:31 Dose: 17 gm Documented by: Scopolamine HBr (Transderm-Scop -) 1 patch TD Q72H [facility] Last Admin: 10/11/19 21:08 Dose: 1 patch Documented by: ASSESSMENT AND PLAN: Acute Hypoxic and Hypercapneic Respiratory Failure UTI Pneumonia ARDS Septic Shock Acute on Chronic Diastolic Heart Failure Volume Overload Atrial Fibrillation/Flutter with RVR h/o COVID19 Sarcoidosis Morbid Obesity EMMY/OHS Anemia - continue antibiotics per ID - titrate pressors to maintain MAP > 65 - rate control - continue anticoagulation - monitor urine output, creatinine - continue volume assist control - taper FiO2, PEEP to keep SpO2 >90% - enteral feeds - DVT/GI prophylaxis - continue ICU monitoring - will need tracheostomy for prolonged intubation and failure to wean critical care time spent in reviewing chart, evaluating patient and formulating plan 35 min
--- NOTE | 2019-10-13 11:43 | PN ---
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 SPUTUM ESBL, MRSA CXR B/L CONGESTION - Current Medication List Current Medications: Active Medications Amino Acids (Prosource No Carb Liquid Pkt) 30 ml PO BID@0800,1730 [facility] Last Admin: 10/13/19 09:47 Dose: 30 ml Documented by: Atorvastatin Calcium (Lipitor -) 40 mg PO [facility] Last Admin: 10/12/19 21:31 Dose: 40 mg Documented by: Chlorhexidine Gluconate (Hibiclens For Decolonization -) 1 applic TP [facility] Last Admin: 10/12/19 21:32 Dose: 1 applic Documented by: Chlorhexidine Gluconate (Peridex -) 15 ml MM BID [facility] Last Admin: 10/13/19 09:48 Dose: 15 ml Documented by: Diltiazem HCl (Cardizem -) 90 mg PO Q6HPO [facility] Last Admin: 10/13/19 05:20 Dose: 90 mg Documented by: Enoxaparin Sodium (Lovenox -) 120 mg SQ BID [facility] Last Admin: 10/13/19 09:47 Dose: 120 mg Documented by: Midazolam HCl 100 mg/ Sodium (Chloride) 100 mls @ 1 mls/hr IVPB TITR [facility]; Protocol Last Admin: 10/13/19 04:00 Dose: 10 mg/hr, 10 mls/hr Documented by: Propofol (Diprivan -) 1,000,000 mcg in 100 mls @ 8.165 mls/hr IVPB TITR [facility]; Protocol Last Admin: 10/13/19 05:30 Dose: 40 mcg/kg/min, 32.659 mls/hr Documented by: Vancomycin HCl (Vancomycin (Pre-Docked)) 1,000 mg in 250 mls @ 200 mls/hr IVPB Q24H [facility]; Protocol Last Admin: 10/12/19 11:30 Dose: 200 mls/hr Documented by: Fentanyl (Sublimaze Ivpb) 500 mcg in 100 mls @ 1 mls/hr IVPB TITR [facility]; Protocol Last Admin: 10/13/19 01:08 Dose: 100 mcg/hr, 20 mls/hr Documented by: Norepinephrine Bitartrate (Levophed Bag) 8,000 mcg in 500 mls @ 18.75 mls/hr IVPB TITR [facility]; Protocol Last Titration: 10/12/19 06:45 Dose: 2 mcg/min, 7.5 mls/hr Documented by: Meropenem 1 gm/ Dextrose 100 mls @ 200 mls/hr IVPB Q8H-IV [facility] Last Admin: 10/13/19 09:48 Dose: 200 mls/hr Documented by: Insulin Aspart (Novolog Vial Sliding Scale -) 1 vial SQ BID [facility]; Protocol Last Admin: 10/12/19 21:30 Dose: 4 units Documented by: Metoprolol Tartrate (Lopressor Injection -) 5 mg IVPUSH Q4H PRN PRN Reason: HYPERTENSION Last Admin: 10/08/19 11:40 Dose: 5 mg Documented by: Metoprolol Tartrate (Lopressor -) 25 mg PO BID [facility] Last Admin: 10/13/19 09:47 Dose: 25 mg Documented by: Pantoprazole Sodium (Protonix Iv) 40 mg IVPUSH DAILY [facility] Last Admin: 10/13/19 09:48 Dose: 40 mg Documented by: Polyethylene Glycol (Miralax (For Daily Use) -) 17 gm NGT HS@2100 [facility] Last Admin: 10/12/19 21:31 Dose: 17 gm Documented by: Scopolamine HBr (Transderm-Scop -) 1 patch TD Q72H [facility] Last Admin: 10/11/19 21:08 Dose: 1 patch Documented by: Sodium Phosphate (Fleet Adult Rectal Enema -) 133 ml RC ONCE ONE Stop: 10/13/19 11:46 - Objective Vital Signs: Vital Signs Temperature 97.8 F 10/13/19 06:00 Pulse Rate 91 H 10/13/19 08:27 Respiratory Rate 18 10/13/19 11:28 Blood Pressure 113/71 10/13/19 06:00 O2 Sat by Pulse Oximetry (%) 92 L 10/13/19 11:28 Constitutional: Yes: No Distress, Obese Cardiovascular: Yes: Regular Rate and Rhythm, S1, S2 Respiratory: Yes: Mechanically Ventilated Gastrointestinal: Yes: Normal Bowel Sounds, Soft, Abdomen, Obese. No: Tenderness Edema: Yes Labs: CBC, BMP 10/13/19 05:40 10/13/19 05:40 INR, PTT INR 1.02 (0.83-1.09) 09/27/19 05:20 Assessment/Plan ACUTE RESP FAILURE + SPUTUM MRSA, ESBL PNEUMONIA SEPSIS R/O SEPTIC SHOCK UTI S/P CARDIOPULMONARY ARREST CONTINUE MEROPENEM/VANCOMYCIN VENTILATORY/ HEMODYNAMIC SUPPORT CONTACT PRECAUTIONS FOR TRACHEOSTOMY
[2019-10-13] MEDS ORDERED: SODIUM PHOSPHATE/NA BIPHOS 133 ML ENEMA RC ONE (11:45)
[2019-10-13] MEDS: INSULIN SLIDING SCALE (NOVOLOG) 1 VIAL SQ SCH ×2 (12:28→21:13)
[2019-10-13] MEDS ORDERED: NOREPINEPHRINE BITARTRATE 4 MG/4 ML ML IV ONE (14:59)
[2019-10-13] MEDS: POLYETHYLENE GLYCOL 3350 119 GM BTL NGT SCH (21:13)
[2019-10-13] MEDS: ATORVASTATIN CA 40 MG TABLET (FP) PO SCH (21:17)
[2019-10-13] MEDS: CHLORHEXIDINE GLUCONATE 4% CLEANSER FOR DECOLONIZATION TP SCH (21:17)
[2019-10-14] MEDS ORDERED: MIDAZOLAM IN 0.9 % SOD.CHLORID 1 MG/1 ML PLAST..BAG ONE ×3 (00:36→23:45)
[2019-10-14] MEDS ORDERED: DEXTROSE 5%-WATER 100 ML IVPB ONE ×3 (01:27→17:00)
[2019-10-14] MEDS ORDERED: MEROPENEM 1 GM VIAL (RESTRICTED TO ID) IVPB ONE ×4 (01:27→17:00)
[2019-10-14] MEDS: MIDAZOLAM 100 MG in SODIUM CHLORIDE 100 ML IVPB SCH ×2 (01:30→11:46)
[2019-10-14] MEDS: MEROPENEM 1 GM in DEXTROSE 5%-WATER 100 ML IVPB SCH ×3 (01:30→17:33)
[2019-10-14] MEDS: dilTIAZem HCL 60 MG TABLET PO SCH ×4 (05:08→23:52)
--- NOTE | 2019-10-14 06:42 | PN ---
Progress Note (short form) - Note Progress Note: Chief Complaint: Events noted, notes reviewed, remains intubated and sedated, for tracheostomy later today, remains on pressors, persistent atrial flutter with variable ventricular response History of Present Illness: Seen and examined in the ICU. Events noted, notes reviewed, remains intubated and sedated, for tracheostomy later today, remains on pressors, persistent atrial flutter with variable ventricular response Current Medications: Current Medications Generic Name Dose Route Start Last Admin Trade Name Freq PRN Reason Stop Dose Admin Amino Acids 30 ml 09/29/19 17:30 10/13/19 17:31 Prosource No Carb Liquid Pkt PO 30 ml BID@0800,1730 [facility] Administration Atorvastatin Calcium 40 mg 10/08/19 22:00 10/13/19 21:17 Lipitor - PO 40 mg HS [facility] Administration Chlorhexidine Gluconate 1 applic 09/27/19 22:00 10/13/19 21:17 Hibiclens For Decolonization - TP Not Given HS [facility] Chlorhexidine Gluconate 15 ml 10/05/19 22:00 10/13/19 21:17 Peridex - MM 15 ml BID [facility] Administration Diltiazem HCl 90 mg 10/07/19 11:32 10/14/19 05:08 Cardizem - PO 90 mg Q6HPO [facility] Administration Enoxaparin Sodium 120 mg 10/12/19 10:00 10/13/19 21:14 Lovenox - SQ 120 mg BID [facility] Administration Midazolam HCl 100 mg/ Sodium 100 mls @ 1 mls/hr 09/27/19 09:00 10/14/19 01:30 Chloride IVPB 10 mg/hr TITR [facility] 10 mls/hr Administration Protocol 1 MG/HR Propofol 1,000,000 mcg in 100 mls @ 8.165 mls/hr 09/27/19 13:00 10/13/19 12:27 Diprivan - IVPB 35 mcg/kg/min TITR [facility] 28.576 mls/hr Titration Protocol 10 MCG/KG/MIN Vancomycin HCl 1,000 mg in 250 mls @ 200 mls/hr 10/04/19 11:00 10/13/19 11:15 Vancomycin (Pre-Docked) IVPB 200 mls/hr Q24H [facility] Administration Protocol Fentanyl 500 mcg in 100 mls @ 1 mls/hr 10/07/19 17:45 10/13/19 17:33 Sublimaze Ivpb IVPB 100 mcg/hr TITR [facility] 20 mls/hr Administration Protocol 5 MCG/HR Norepinephrine Bitartrate 8,000 mcg in 500 mls @ 18.75 mls/hr 10/07/19 19:15 10/12/19 06:45 Levophed Bag IVPB 2 mcg/min TITR [facility] 7.5 mls/hr Titration Protocol 5 MCG/MIN Meropenem 1 gm/ Dextrose 100 mls @ 200 mls/hr 10/10/19 18:00 10/14/19 01:30 IVPB 200 mls/hr Q8H-IV [facility] Administration Insulin Aspart 1 vial 10/05/19 22:00 10/13/19 21:13 Novolog Vial Sliding Scale - SQ 2 units BID [facility] Administration Protocol Metoprolol Tartrate 5 mg 10/07/19 23:27 10/08/19 11:40 Lopressor Injection - IVPUSH 5 mg Q4H PRN Administration HYPERTENSION Metoprolol Tartrate 25 mg 10/08/19 14:43 10/13/19 21:18 Lopressor - PO 25 mg BID [facility] Administration Pantoprazole Sodium 40 mg 09/29/19 11:00 10/13/19 09:48 Protonix Iv IVPUSH 40 mg DAILY [facility] Administration Polyethylene Glycol 17 gm 10/03/19 21:00 10/13/19 21:13 Miralax (For Daily Use) - NGT 17 gm HS@2100 [facility] Administration Scopolamine HBr 1 patch 10/08/19 22:00 10/11/19 21:08 Transderm-Scop - TD 1 patch Q72H [facility] Administration Review of Systems Unable to obtain - Objective Vital Signs: Last Vital Signs Temp Pulse Resp BP Pulse Ox 98.1 F 92 H 16 104/67 94 L 10/14/19 06:00 10/14/19 06:00 10/14/19 06:14 10/14/19 06:00 10/14/19 06:14 Intake & Output 10/11/19 10/12/19 10/13/19 10/14/19 23:59 23:59 23:59 23:59 Intake Total 3437.6 3480 1944 545.9 Output Total 1650 1900 2200 100 Balance 1787.6 1580 -256 445.9 Weight 268 lb 15.423 oz 272 lb 5 oz 272 lb 5 oz 275 lb 4.8 oz Neck: Supple negative JVD no bruit Cardiovascular: S1 S2 Irregularly Irregular Respiratory: Diminished Breath Sounds Bilaterally Gastrointestinal: Soft Benign Normal Bowel Sounds Ext: Edema Bilaterally Labs: CBC, BMP 10/14/19 05:30 10/14/19 05:30 Hepatic Panel Total Bilirubin 0.3 mg/dL (0.2-1) 10/14/19 05:30 AST 16 U/L (15-37) 10/14/19 05:30 ALT 14 U/L (13-61) 10/14/19 05:30 Alkaline Phosphatase 171 U/L (45-117) H 10/14/19 05:30 Albumin 1.8 g/dl (3.4-5.0) L 10/14/19 05:30 INR, PTT INR 1.18 (0.83-1.09) H 10/14/19 05:30 Assessment/Plan: ASSESSMENT: 1. Chronic hypoxic respiratory failure for tracheostomy 2. History of pneumonia complicated by septic shock, last admission/hospitalization 3. Persistent atrial flutter/paroxysmal atrial fibrillation [id number] score of 0 on A/C therapy with intermittent periods of rapid ventricular response 4. Diastolic/systolic LV dysfunction with clinical class 0 NYHA classification LV failure 5. Sarcoidosis confirmed by skin biopsy, R/O cardiac involvement- for future evaluation/cardiac MRI 6. History of coronavirus/COVID 19 infection 7. DM 8. History of OSAS 9. History of acute on chronic kidney disease, pre-renal azotemia 10. Anemia PLAN: 1. Attempt to wean off pressor therapy 2. Continue B-Blockers/Lopressor to assist with rate control titrate dose as needed/hemodynamics permitting 3. Continue Cardizem to assist with rate control titrate dose as needed/hemodynamics permitting 4. Recommend resumption of Lisinopril/hemodynamics permitting once off of pressor therapy 5. Continue Lovenox therapy and eventual resumption of DOAS's/Eliquis therapy unless contraindicated with close monitoring of CBC/Hg 6. Plan tracheostomy procedure later today Maycol King MD
[2019-10-14 06:48] LABS: INR 1.18 (0.83-1.09)
[2019-10-14 06:50] LABS: ACTIVATED PTT 44.8 SECONDS (25.2-36.5); HEMATOCRIT 26.8 % (35.4-49); HEMOGLOBIN 8.5 GM/dL (11.7-16.9); MCH 24.7 pg (25.7-33.7); MCHC 31.7 g/dl (32.0-35.9); MEAN PLT VOLUME 8.5 fl (7.5-11.1); PLATELET COUNT 377 K/MM3 (134-434); RBC 3.43 M/mm3 (4.00-5.60); RDW 17.7 % (11.9-15.9); WHITE BLOOD COUNT 5.4 K/mm3 (4.0-10.0)
--- NOTE | 2019-10-14 07:06 | PN ---
Physical Exam: SUBJECTIVE: Patient seen and examined. Patient is rate controlled with persistent atrial flutter. Remains sedated and intubated. No acute overnight events as per nursing staff. Ventilated on volume-assist control. Vent: RR 18, TV 390, FiO2 60, PEEP 10 (sat 99%) Drips: 2 NE, 10 versed, 100 fentanyl, 40 propofol OBJECTIVE: Vital Signs Period Temp Pulse Resp BP Sys/Kenyon Pulse Ox Last 24 Hr 96.2 F-98.1 F 68-115 12-19 99-123/61-88 91-100 GENERAL: The patient is sedated and intubated. HEAD: NCAT LUNGS: Breath sounds from ventilator equal, rhonchi present L>R, no wheezes or crackles. HEART: Regular rate and irregular rhythm; S1, S2 normal without murmur, rub or gallop. ABDOMEN: soft, non tender, mildly distended abdomen; BS heard in all four quadrants EXTREMITIES: 2+ pulses, warm, well-perfused, 1+ edema in lower extremities NEUROLOGICAL: Cranial nerves II through XII grossly intact. Normal speech, gait not observed. SKIN: Warm, dry, normal turgor, no rashes or lesions noted Laboratory Results - last 24 hr 10/12/19 10/13/19 10/13/19 06:24 05:40 05:40 WBC 7.1 RBC 3.49 L Hgb 8.7 L Hct 27.3 L MCV 78.0 L MCH 24.9 L MCHC 31.9 L RDW 17.9 H Plt Count 353 MPV 8.7 PT with INR INR PTT (Actin FS) Sodium Potassium Chloride Carbon Dioxide Anion Gap BUN Creatinine Est GFR (CKD-EPI)AfAm Est GFR (CKD-EPI)NonAf POC Glucometer 135 Random Glucose Calcium Phosphorus Magnesium Total Bilirubin AST ALT Alkaline Phosphatase Total Protein Albumin Vancomycin Pre-Dose 8.3 10/13/19 10/13/19 10/13/19 05:40 10:26 21:09 WBC RBC Hgb Hct MCV MCH MCHC RDW Plt Count MPV PT with INR INR PTT (Actin FS) Sodium 136 Potassium 4.7 Chloride 98 Carbon Dioxide 31 Anion Gap 6 L BUN 31.2 H Creatinine 0.6 Est GFR (CKD-EPI)AfAm 134.92 Est GFR (CKD-EPI)NonAf 116.41 POC Glucometer 190 184 Random Glucose 171 H Calcium 8.2 L Phosphorus 4.0 Magnesium 1.9 Total Bilirubin 0.5 AST 15 ALT 13 Alkaline Phosphatase 164 H Total Protein 5.0 L Albumin 1.8 L Vancomycin Pre-Dose 10/14/19 05:30 WBC RBC Hgb Hct MCV MCH MCHC RDW Plt Count MPV PT with INR 14.00 H INR 1.18 H PTT (Actin FS) 44.8 H Sodium Potassium Chloride Carbon Dioxide Anion Gap BUN Creatinine Est GFR (CKD-EPI)AfAm Est GFR (CKD-EPI)NonAf POC Glucometer Random Glucose Calcium Phosphorus Magnesium Total Bilirubin AST ALT Alkaline Phosphatase Total Protein Albumin Vancomycin Pre-Dose Active Medications Generic Name Dose Route Start Last Admin Trade Name Freq PRN Reason Stop Dose Admin Amino Acids 30 ml 09/29/19 17:30 10/13/19 17:31 Prosource No Carb Liquid Pkt PO 30 ml BID@0800,1730 ELISSA Administration Atorvastatin Calcium 40 mg 10/08/19 22:00 10/13/19 21:17 Lipitor - PO 40 mg HS ELISSA Administration Chlorhexidine Gluconate 1 applic 09/27/19 22:00 10/13/19 21:17 Hibiclens For Decolonization - TP Not Given HS ELISSA Chlorhexidine Gluconate 15 ml 10/05/19 22:00 10/13/19 21:17 Peridex - MM 15 ml BID ELISSA Administration Diltiazem HCl 90 mg 10/07/19 11:32 10/14/19 05:08 Cardizem - PO 90 mg Q6HPO ELISSA Administration Enoxaparin Sodium 120 mg 10/12/19 10:00 10/13/19 21:14 Lovenox - SQ 120 mg BID ELISSA Administration Midazolam HCl 100 mg/ Sodium 100 mls @ 1 mls/hr 09/27/19 09:00 10/14/19 01:30 Chloride IVPB 10 mg/hr TITR ELISSA 10 mls/hr Administration Protocol 1 MG/HR Propofol 1,000,000 mcg in 100 mls @ 8.165 mls/hr 09/27/19 13:00 10/13/19 12:27 Diprivan - IVPB 35 mcg/kg/min TITR ELISSA 28.576 mls/hr Titration Protocol 10 MCG/KG/MIN Vancomycin HCl 1,000 mg in 250 mls @ 200 mls/hr 10/04/19 11:00 10/13/19 11:15 Vancomycin (Pre-Docked) IVPB 200 mls/hr Q24H ELISSA Administration Protocol Fentanyl 500 mcg in 100 mls @ 1 mls/hr 10/07/19 17:45 10/13/19 17:33 Sublimaze Ivpb IVPB 100 mcg/hr TITR ELISSA 20 mls/hr Administration Protocol 5 MCG/HR Norepinephrine Bitartrate 8,000 mcg in 500 mls @ 18.75 mls/hr 10/07/19 19:15 10/12/19 06:45 Levophed Bag IVPB 2 mcg/min TITR ELISSA 7.5 mls/hr Titration Protocol 5 MCG/MIN Meropenem 1 gm/ Dextrose 100 mls @ 200 mls/hr 10/10/19 18:00 10/14/19 01:30 IVPB 200 mls/hr Q8H-IV ELISSA Administration Insulin Aspart 1 vial 10/05/19 22:00 10/13/19 21:13 Novolog Vial Sliding Scale - SQ 2 units BID ELISSA Administration Protocol Metoprolol Tartrate 5 mg 10/07/19 23:27 10/08/19 11:40 Lopressor Injection - IVPUSH 5 mg Q4H PRN Administration HYPERTENSION Metoprolol Tartrate 25 mg 10/08/19 14:43 10/13/19 21:18 Lopressor - PO 25 mg BID ELISSA Administration Pantoprazole Sodium 40 mg 09/29/19 11:00 10/13/19 09:48 Protonix Iv IVPUSH 40 mg DAILY ELISSA Administration Polyethylene Glycol 17 gm 10/03/19 21:00 10/13/19 21:13 Miralax (For Daily Use) - NGT 17 gm HS@2100 ELISSA Administration Scopolamine HBr 1 patch 10/08/19 22:00 10/11/19 21:08 Transderm-Scop - TD 1 patch Q72H ELISSA Administration ASSESSMENT/PLAN: 53 yo m w/ dDHF, afib/flutter on eliquis, sarcoidosis, guillan barre, morbid obesity, tracheostomy with reversal (during [facility] hospitalization) who is admitted for acute on chronic hypercapnic hypoxic respiratory failure 2/2 to CHF. Pt has been intubated and sedated. Tracheostomy planned for today. #Neuro - intubated and sedated on propofol/versed and fentanyl - attempt sedation vacation daily #Cardio h/o afib/aflutter, CHF exacerbation, persistently tachycardic - cardizem 90 q6h, metoprolol 25 bid, metoprolol pushes prn for tachycardia - changed from apixaban to enoxaparin in anticipation of tracheostomy (today) - MAP goal > 65, continue to wean norepi as tolerable - continue home dose atorvastatin hx CHF, holding lasix - 08/27/19 Echo: low normal LV function EF 25%, mild LVH, mildly dilated RA and RV, moderate to severe pulmonary HTN - continue to monitor I's &O's, daily weights - continue to hold lisinopril #pulm acute hypoxic hypercapnic respiratory failure 2/2 to CHF exacerbation - maintain saturation >88%, continue to try and wean down vent settings - monitor CXR - trach planned for today; consent obtained - in chart - continue to titrate down O2 settings as tolerated - will stop sedation and provide prn pain control after tracheostomy is done #ID sputum growing ESBL and MRSA - Meropenem q8h - Vancomycin daily - contact precautions #Endo - BGM ACHS - continue SS #heme anemia, at baseline - monitor Hgb daily #GI constipation - stool softners with miralax #FEN - promote tube feeds (high protein, low kcal) #PPx - DVT: enoxaparin - GI: pantoprazole #LTD - NG tube 10/07 - central line RIJ 10/12 (swapped from [facility] 10/05) - A line 10/04 - ortiz catheter 09/26 Tana Madrigal # [phone] (understands Colombian but only speaks Polish) Dispo - continue to monitor in ICU Visit type - Emergency Visit Emergency Visit: Yes ED Registration Date: 09/27/19 Care time: The patient presented to the Emergency Department on the above date and was hospitalized for further evaluation of their emergent condition. - New Patient This patient is new to me today: No - Critical Care Critical Care patient: Yes Total Critical Care Time (in minutes): 37 Critical Care Statement: The care of this patient involved high complexity decision making to prevent further life threatening deterioration of the patient's condition and/or to evaluate & treat vital organ system(s) failure or risk of failure. ATTENDING PHYSICIAN STATEMENT I saw and evaluated the patient. I reviewed the resident's note and discussed the case with the resident. I agree with the resident's findings and plan as documented. SUBJECTIVE: OBJECTIVE: ASSESSMENT AND PLAN:
[2019-10-14 07:09] LABS: ALBUMIN 1.8 g/dl (3.4-5.0); BLOOD UREA NITROGEN 25.6 mg/dL (7-18); CALCIUM 8.4 mg/dL (8.5-10.1); CREATININE 0.5 mg/dL (0.55-1.3); MAGNESIUM 1.7 mg/dL (1.8-2.4); PHOSPHOROUS 3.9 mg/dL (2.5-4.9); POTASSIUM 4.3 mmol/L (3.5-5.1)
[2019-10-14 07:13] LABS: BILIRUBIN,TOTAL 0.3 mg/dL (0.2-1); TOT PROT 5.2 g/dl (6.4-8.2)
[2019-10-14] MEDS ORDERED: MAGNESIUM SULF 50% (8.12 MEQ/2 ML-1 GM VIAL) IVPB ONE (07:30)
[2019-10-14] MEDS: PROPOFOL 1,000,000 MCG/100 ML VIAL IVPB SCH ×6 (07:49→20:00)
[2019-10-14] MEDS: FENTANYL NS IVPB 500 MCG/100 ML BAG IVPB SCH ×2 (07:50→18:57)
[2019-10-14] MEDS: INSULIN SLIDING SCALE (NOVOLOG) 1 VIAL SQ SCH (10:23)
[2019-10-14] MEDS: CHLORHEXIDINE GLUCONATE 0.12% 15ML CUP MM SCH ×2 (10:56→21:29)
[2019-10-14] MEDS: PANTOPRAZOLE SODIUM 40 MG VIAL IVPUSH SCH (10:57)
[2019-10-14] MEDS: AMINO ACIDS/PROTEIN HYDROLYS 30 ML LIQUID.PKT PO SCH ×2 (10:59→18:34)
[2019-10-14] MEDS: METOPROLOL TARTRATE 25 MG TABLET (FP) PO SCH ×2 (11:00→21:29)
[2019-10-14] MEDS: VANCOMYCIN 1 GRAM (PRE-DOCKED) 1,000 MG/250 ML BAG IVPB SCH (11:04)
--- NOTE | 2019-10-14 11:52 | PN ---
Teaching Attending Note Name of Resident: Emmanuel Cheek ATTENDING PHYSICIAN STATEMENT I saw and evaluated the patient. I reviewed the resident's note and discussed the case with the resident. I agree with the resident's findings and plan as documented. SUBJECTIVE: Pt seen and examined in the ICU. Remains intubated, sedated on low dose levophed gtt. Vented on volume assist control with 60% FiO2, PEEP 10. OBJECTIVE: Vital Signs Period Temp Pulse Resp BP Sys/Kenyon Pulse Ox Last 24 Hr 97.0 F-98.1 F 69-115 12-18 99-118/61-88 91-95 Intake & Output 10/11/19 10/12/19 10/13/19 10/14/19 23:59 23:59 23:59 23:59 Intake Total 3437.6 3480 1944 545.9 Output Total 1650 1900 2200 100 Balance 1787.6 1580 -256 445.9 Weight 122 kg 123.519 kg 123.519 kg 124.874 kg Gen: intubated, sedated Heart: RRR Lung: scattered rhonchi Abd: soft, nontender Ext: no edema CBC, BMP 10/14/19 05:30 10/14/19 05:30 Active Medications Amino Acids (Prosource No Carb Liquid Pkt) 30 ml PO BID@0800,1730 [facility] Last Admin: 10/14/19 10:59 Dose: 30 ml Documented by: Atorvastatin Calcium (Lipitor -) [address] [facility] Last Admin: 10/13/19 21:17 Dose: 40 mg Documented by: Chlorhexidine Gluconate (Hibiclens For Decolonization -) 1 applic TP [facility] Last Admin: 10/13/19 21:17 Dose: Not Given Documented by: Chlorhexidine Gluconate (Peridex -) [address] [facility] Last Admin: 10/14/19 10:56 Dose: 15 ml Documented by: Diltiazem HCl (Cardizem -) [address] [facility] Last Admin: 10/14/19 11:00 Dose: 90 mg Documented by: Enoxaparin Sodium (Lovenox -) [address] [facility] Last Admin: 10/13/19 21:14 Dose: 120 mg Documented by: Midazolam HCl 100 mg/ Sodium (Chloride) 100 mls @ 1 mls/hr IVPB TITR [facility]; Protocol Last Admin: 10/14/19 01:30 Dose: 10 mg/hr, 10 mls/hr Documented by: Propofol (Diprivan -) 1,000,000 mcg in 100 mls @ 8.165 mls/hr IVPB TITR ELISSA; Protocol Last Admin: 10/14/19 11:47 Dose: 35 mcg/kg/min, 28.576 mls/hr Documented by: Vancomycin HCl (Vancomycin (Pre-Docked)) 1,000 mg in 250 mls @ 200 mls/hr IVPB Q24H ELISSA; Protocol Last Admin: 10/14/19 11:04 Dose: 200 mls/hr Documented by: Fentanyl (Sublimaze Ivpb) 500 mcg in 100 mls @ 1 mls/hr IVPB TITR ELISSA; Protocol Last Admin: 10/14/19 07:50 Dose: 100 mcg/hr, 20 mls/hr Documented by: Norepinephrine Bitartrate (Levophed Bag) 8,000 mcg in 500 mls @ 18.75 mls/hr IVPB TITR ELISSA; Protocol Last Titration: 10/12/19 06:45 Dose: 2 mcg/min, 7.5 mls/hr Documented by: Meropenem 1 gm/ Dextrose 100 mls @ 200 mls/hr IVPB Q8H-IV ELISSA Last Admin: 10/14/19 11:07 Dose: 200 mls/hr Documented by: Insulin Aspart (Novolog Vial Sliding Scale -) 1 vial SQ BID ELISSA; Protocol Last Admin: 10/13/19 21:13 Dose: 2 units Documented by: Metoprolol Tartrate (Lopressor Injection -) 5 mg IVPUSH Q4H PRN PRN Reason: HYPERTENSION Last Admin: 10/08/19 11:40 Dose: 5 mg Documented by: Metoprolol Tartrate (Lopressor -) [address] [facility] Last Admin: 10/14/19 11:00 Dose: 25 mg Documented by: Pantoprazole Sodium (Protonix Iv) [address] [facility] Last Admin: 10/14/19 10:57 Dose: 40 mg Documented by: Polyethylene Glycol (Miralax (For Daily Use) -) 17 gm NGT HS@2100 ELISSA Last Admin: 10/13/19 21:13 Dose: 17 gm Documented by: Scopolamine HBr (Transderm-Scop -) 1 patch TD Q72H ELISSA Last Admin: 10/11/19 21:08 Dose: 1 patch Documented by: ASSESSMENT AND PLAN: Acute Hypoxic and Hypercapneic Respiratory Failure UTI Pneumonia ARDS Septic Shock Acute on Chronic Diastolic Heart Failure Volume Overload Atrial Fibrillation/Flutter with RVR h/o COVID19 Sarcoidosis Morbid Obesity EMMY/OHS Anemia - continue antibiotics per ID - titrate pressors to maintain MAP > 65 - rate control - continue anticoagulation - monitor urine output, creatinine - continue volume assist control - taper FiO2, PEEP to keep SpO2 >90% - enteral feeds - DVT/GI prophylaxis - continue ICU monitoring - for tracheostomy today for prolonged intubation and failure to wean critical care time spent in reviewing chart, evaluating patient and formulating plan 35 min
[2019-10-14] MEDS ORDERED: ROCURONIUM BROMIDE 50 MG/5 ML VIAL IV ONE (13:14)
--- NOTE | 2019-10-14 15:19 | OPR ---
Patient Name: Jose Madrigal MR#: [id number] Procedure Date: 10/14/2019 Inpatient procedure Preoperative Diagnosis: 1. Hypoxic respiratory failure/recurrent; 2. History of tracheostomy. Postoperative Diagnosis: same. Procedure: 1. Flexible Bronchoscopy (performed by Dr. Dave) 2. Percutaneous tracheostomy. Indication: Respiratory failure; Surgeon(s): Pro Lawson MD Cosurgeon: wanda Instruction Dean Surgeon: wanda Anesthesia: local; Findings: Bronchoscopy: secretions in airway; old defect visualized and new tube placed through this area; tracheostomy in place without significant bleeding; Specimens Sent: 1. None. Complications: None. Drains / Tubes / Catheters: #8 Portex. Hardware / Implants: na Blood / Fluid Losses: none. Post-Operative Condition: hemodynamically stable. Indications: This patient is a 53 year-old male referred from the ICU team for redo tracheostomy because of prolonged respiratory failure. An informed consent was obtained from the family for the procedure. All questions were addressed and answered. Details of Procedure: The procedure was done at the bedside. Dr. Dave performed a bronchoscopy after he was given paralysis and prepared and draped. I then injected lidocaine and made a small incision. Blunt dissection was done down to the airway. Next under vision from bronchoscopy, the needle as inserted between the second and third ring. Using Seldinger technique the wire, dilator, and larger dilator, and finally the tracheostomy were inserted. It was secured with sutures. A completion bronchoscopy showed good position and hemostasis. He tolerated the procedure well. I will follow the patient in the hospital and as an outpatient.
--- NOTE | 2019-10-14 15:21 | PROC ---
Procedure Note Procedure: BRONCHOSCOPY NOTE Storz video bronchoscope was placed via the ETT, airways were examined down to the segmental level. No endobronchial lesions noted. Trachea visualized as the thoracic surgeon placed the percutaneous tracheostomy. Bronchoscope then inserted into the new tracheostomy confirming good placement and no bleeding noted. Bronchoscope withdrawn and procedure terminated. No immediate complications. Buster Dave MD
[2019-10-14] MEDS ORDERED: FENTANYL NS IVPB 500 MCG/100 ML BAG IVPB ONE (18:33)
[2019-10-14] MEDS: POLYETHYLENE GLYCOL 3350 119 GM BTL NGT SCH (21:28)
[2019-10-14] MEDS: ATORVASTATIN CA 40 MG TABLET (FP) PO SCH (21:29)
[2019-10-14] MEDS: CHLORHEXIDINE GLUCONATE 4% CLEANSER FOR DECOLONIZATION TP SCH (21:29)
[2019-10-14] MEDS: SCOPOLAMINE HYDROBROMIDE 1 PATCH PATCH.TD72 TD SCH (21:30)
[2019-10-15] MEDS: MIDAZOLAM 100 MG in SODIUM CHLORIDE 100 ML IVPB SCH
[2019-10-15] MEDS: FENTANYL NS IVPB 500 MCG/100 ML BAG IVPB SCH ×2 (01:00→22:48)
[2019-10-15] MEDS: PROPOFOL 1,000,000 MCG/100 ML VIAL IVPB SCH ×3 (01:00→13:27)
[2019-10-15] MEDS ORDERED: MEROPENEM 1 GM VIAL (RESTRICTED TO ID) IVPB ONE ×3 (03:05→17:33)
[2019-10-15] MEDS ORDERED: DEXTROSE 5%-WATER 100 ML IVPB ONE ×3 (03:06→17:34)
[2019-10-15] MEDS: MEROPENEM 1 GM in DEXTROSE 5%-WATER 100 ML IVPB SCH ×3 (03:07→17:42)
[2019-10-15] MEDS: dilTIAZem HCL 60 MG TABLET PO SCH ×3 (05:13→17:42)
[2019-10-15 06:46] LABS: HEMATOCRIT 27.5 % (35.4-49); HEMOGLOBIN 8.8 GM/dL (11.7-16.9); MCH 25.1 pg (25.7-33.7); MCHC 32.1 g/dl (32.0-35.9); MEAN CELL VOLUME 78.2 fl (80-96); MEAN PLT VOLUME 8.4 fl (7.5-11.1); PLATELET COUNT 391 K/MM3 (134-434); RBC 3.52 M/mm3 (4.00-5.60); WHITE BLOOD COUNT 9.1 K/mm3 (4.0-10.0)
[2019-10-15 07:17] LABS: ALBUMIN 1.8 g/dl (3.4-5.0); BILIRUBIN,TOTAL 0.4 mg/dL (0.2-1); BLOOD UREA NITROGEN 19.3 mg/dL (7-18); CALCIUM 8.1 mg/dL (8.5-10.1); CREATININE 0.6 mg/dL (0.55-1.3); MAGNESIUM 1.6 mg/dL (1.8-2.4); PHOSPHOROUS 4.2 mg/dL (2.5-4.9); POTASSIUM 4.3 mmol/L (3.5-5.1); TOT PROT 5.2 g/dl (6.4-8.2)
[2019-10-15] MEDS ORDERED: MAGNESIUM SULF 50% (8.12 MEQ/2 ML-1 GM VIAL) IVPB ONE (08:07)
--- NOTE | 2019-10-15 08:12 | PN ---
Physical Exam: SUBJECTIVE: Patient seen and examined Patient seen and examined. Patient is rate controlled with persistent atrial flutter. Patient still on sedation this morning, but sedation stopped during rounds. He is now POD 1 after tracheostomy. Surgical site does not look concerning. No acute overnight events as per nursing staff. Ventilated on volume-assist control. Vent: RR 18, TV 390, FiO2 80, PEEP 10 Drips: 2 NE OBJECTIVE: Vital Signs Period Temp Pulse Resp BP Sys/Kenyon Pulse Ox Last 24 Hr 97.5 F-98.7 F 39-95 14-19 95-146/63-90 92-100 GENERAL: The patient is sedated and intubated. HEAD: NCAT LUNGS: Breath sounds from ventilator equal, rhonchi present bilaterally, no wheezes or crackles. HEART: Regular rate and irregular rhythm; S1, S2 normal without murmur, rub or gallop. ABDOMEN: soft, non tender, mildly distended abdomen; BS heard in all four quadrants EXTREMITIES: 2+ pulses, warm, well-perfused, increased edema in lower extremities NEUROLOGICAL: Cranial nerves II through XII grossly intact. Normal speech, gait not observed. SKIN: Warm, normal turgor, no rashes or lesions noted Laboratory Results - last 24 hr 10/14/19 10/15/19 10/15/19 21:12 05:00 05:00 WBC 9.1 RBC 3.52 L Hgb 8.8 L Hct 27.5 L MCV 78.2 L MCH 25.1 L MCHC 32.1 RDW 18.0 H Plt Count 391 MPV 8.4 Sodium 136 Potassium 4.3 Chloride 98 Carbon Dioxide 32 Anion Gap 7 L BUN 19.3 H Creatinine 0.6 Est GFR (CKD-EPI)AfAm 134.92 Est GFR (CKD-EPI)NonAf 116.41 POC Glucometer 146 Random Glucose 149 H Calcium 8.1 L Phosphorus 4.2 Magnesium 1.6 L Total Bilirubin 0.4 AST 19 ALT 16 Alkaline Phosphatase 174 H Total Protein 5.2 L Albumin 1.8 L 10/15/19 06:16 WBC RBC Hgb Hct MCV MCH MCHC RDW Plt Count MPV Sodium Potassium Chloride Carbon Dioxide Anion Gap BUN Creatinine Est GFR (CKD-EPI)AfAm Est GFR (CKD-EPI)NonAf POC Glucometer 157 Random Glucose Calcium Phosphorus Magnesium Total Bilirubin AST ALT Alkaline Phosphatase Total Protein Albumin Active Medications Generic Name Dose Route Start Last Admin Trade Name Brodyq PRN Reason Stop Dose Admin Amino Acids 30 ml 09/29/19 17:30 10/14/19 18:34 Prosource No Carb Liquid Pkt PO Not Given BID@0800,1730 ELISSA Atorvastatin Calcium 40 mg 10/08/19 22:00 10/14/19 21:29 Lipitor - PO 40 mg HS ELISSA Administration Chlorhexidine Gluconate 1 applic 09/27/19 22:00 10/14/19 21:29 Hibiclens For Decolonization - TP 1 applic HS ELISSA Administration Chlorhexidine Gluconate 15 ml 10/05/19 22:00 10/14/19 21:29 Peridex - MM 15 ml BID ELISSA Administration Diltiazem HCl 90 mg 10/07/19 11:32 10/15/19 05:13 Cardizem - PO 90 mg Q6HPO ELISSA Administration Enoxaparin Sodium 120 mg 10/12/19 10:00 10/13/19 21:14 Lovenox - SQ 120 mg BID ELISSA Administration Propofol 1,000,000 mcg in 100 mls @ 8.165 mls/hr 09/27/19 13:00 10/15/19 04:20 Diprivan - IVPB 35 mcg/kg/min TITR ELISSA 28.576 mls/hr Administration Protocol 10 MCG/KG/MIN Vancomycin HCl 1,000 mg in 250 mls @ 200 mls/hr 10/04/19 11:00 10/14/19 11:04 Vancomycin (Pre-Docked) IVPB 200 mls/hr Q24H ELISSA Administration Protocol Norepinephrine Bitartrate 8,000 mcg in 500 mls @ 18.75 mls/hr 10/07/19 19:15 10/14/19 21:28 Levophed Bag IVPB 1 mcg/min TITR ELISSA 3.75 mls/hr Titration Protocol 5 MCG/MIN Meropenem 1 gm/ Dextrose 100 mls @ 200 mls/hr 10/10/19 18:00 10/15/19 03:07 IVPB 200 mls/hr Q8H-IV ELISSA Administration Fentanyl 500 mcg in 100 mls @ 24.975 mls/hr 10/14/19 19:00 10/15/19 01:00 Sublimaze Ivpb IVPB 0.8 mcg/kg/hr TITR ELISSA 20 mls/hr Administration Protocol 1 MCG/KG/HR Magnesium Sulfate 2 gm 10/15/19 08:07 Magnesium Sulfate IVPB 10/15/19 08:08 ONCE ONE Metoprolol Tartrate 5 mg 10/07/19 23:27 10/08/19 11:40 Lopressor Injection - IVPUSH 5 mg Q4H PRN Administration HYPERTENSION Metoprolol Tartrate 25 mg 10/08/19 14:43 10/14/19 21:29 Lopressor - PO 25 mg BID ELISSA Administration Pantoprazole Sodium 40 mg 09/29/19 11:00 10/14/19 10:57 Protonix Iv IVPUSH 40 mg DAILY ELISSA Administration Polyethylene Glycol 17 gm 10/03/19 21:00 10/14/19 21:28 Miralax (For Daily Use) - NGT 17 gm HS@2100 ELISSA Administration Scopolamine HBr 1 patch 10/08/19 22:00 10/14/19 21:30 Transderm-Scop - TD 1 patch Q72H ELISSA Administration ASSESSMENT/PLAN: 53 yo m w/ dDHF, afib/flutter on eliquis, sarcoidosis, guillan barre, morbid obesity, tracheostomy with reversal (during [facility] hospitalization) who is admitted for acute on chronic hypercapnic hypoxic respiratory failure 2/2 to CHF. Pt is s/p tracheostomy on 10/13. Sedation stopped today. #Neuro - patient just recently taken off sedation, unable to assess mental status yet #Cardio h/o afib/aflutter, acute on chronic diastolic CHF exacerbation, persistently tachycardic - cardizem 90 q6h, metoprolol 50 bid, metoprolol pushes prn for tachycardia - pt started on eliquis again - MAP goal > 65, continue to wean norepi as tolerable - continue home dose atorvastatin acute on chronic diastolic CHF exacerbation - 08/27/19 Echo: low normal LV function EF 25%, mild LVH, mildly dilated RA and RV, moderate to severe pulmonary HTN - started on lasix 40 mg bid d/t increasing edema - continue to monitor I's &O's, daily weights - continue to hold lisinopril #pulm acute hypoxic hypercapnic respiratory failure 2/2 to CHF exacerbation - maintain saturation >88%, continue to try and wean down vent settings - CXR today (10/14) with worsening of R lung infiltrates and improvement of L lung aeration - monitor CXR - continue to titrate down O2 settings as tolerated - morphine 4 mg q4h prn for pain s/p tracheostomy #ID sputum growing ESBL and MRSA - Meropenem q8h (started 10/09) - Vancomycin daily (started 09/30) - contact precautions #Endo - BGM ACHS - continue SS #heme anemia, at baseline - monitor Hgb daily (uptrending to 8.8 today) #GI constipation - stool softeners with miralax #FEN - promote tube feeds (high protein, low kcal) #PPx - DVT: eliquis - GI: pantoprazole #LTD - NG tube 10/07 - central line RIJ 10/12 - A line 10/04 - ortiz catheter 10/13 Tana Madrigal # [phone] (understands Turkmen but only speaks Jamaican) Dispo - continue to monitor in ICU Visit type - Emergency Visit Emergency Visit: Yes ED Registration Date: 09/27/19 Care time: The patient presented to the Emergency Department on the above date and was hospitalized for further evaluation of their emergent condition. - New Patient This patient is new to me today: No - Critical Care Critical Care patient: Yes Total Critical Care Time (in minutes): 37 Critical Care Statement: The care of this patient involved high complexity deci elaine making to prevent further life threatening deterioration of the patient's condition and/or to evaluate & treat vital organ system(s) failure or risk of failure. ATTENDING PHYSICIAN STATEMENT I saw and evaluated the patient. I reviewed the resident's note and discussed the case with the resident. I agree with the resident's findings and plan as documented. SUBJECTIVE: OBJECTIVE: ASSESSMENT AND PLAN:
[2019-10-15] MEDS: AMINO ACIDS/PROTEIN HYDROLYS 30 ML LIQUID.PKT PO SCH ×2 (09:20→17:42)
[2019-10-15] MEDS: METOPROLOL TARTRATE 25 MG TABLET (FP) PO SCH ×2 (09:20→22:31)
[2019-10-15] MEDS: PANTOPRAZOLE SODIUM 40 MG VIAL IVPUSH SCH (09:20)
[2019-10-15] MEDS: CHLORHEXIDINE GLUCONATE 0.12% 15ML CUP MM SCH ×2 (09:20→22:31)
[2019-10-15] MEDS ORDERED: MORPHINE SULFATE 2 MG/ML VIAL IVPUSH PRN (10:14)
[2019-10-15] MEDS ORDERED: MAGNESIUM SULF 50% (8.12 MEQ/2 ML-1 GM VIAL) ONE (10:38)
[2019-10-15] MEDS: VANCOMYCIN 1 GRAM (PRE-DOCKED) 1,000 MG/250 ML BAG IVPB SCH (10:47)
[2019-10-15] MEDS: APIXABAN 5 MG TABLET NGT SCH ×2 (10:47→22:31)
--- NOTE | 2019-10-15 11:30 | PN ---
Teaching Attending Note Name of Resident: Emmanuel Cheek ATTENDING PHYSICIAN STATEMENT I saw and evaluated the patient. I reviewed the resident's note and discussed the case with the resident. I agree with the resident's findings and plan as documented. SUBJECTIVE: Pt seen and examined in the ICU. s/p tracheostomy. Remains on low dose levophed gtt. Vented on volume assist control with 80% FiO2, PEEP 10. OBJECTIVE: Vital Signs Period Temp Pulse Resp BP Sys/[place] Pulse Ox Last 24 Hr 97.5 F-98.7 F 39-95 14-19 95-146/63-90 91-100 Intake & Output 10/12/19 10/13/19 10/14/19 10/15/19 23:59 23:59 23:59 23:59 Intake Total 3480 1944 1238.7 715.0 Output Total 1900 2200 1425 1000 Balance 1580 -256 -186.3 -285.0 Weight 123.519 kg 123.519 kg 124.874 kg 128.185 kg Gen: intubated, sedated Heart: RRR Lung: scattered rhonchi Abd: soft, nontender Ext: no edema CBC, BMP 10/15/19 05:00 10/15/19 05:00 Active Medications Amino Acids (Prosource No Carb Liquid Pkt) 30 ml PO BID@0800,1730 [facility] Last Admin: 10/15/19 09:20 Dose: 30 ml Documented by: Apixaban (Eliquis -) 5 mg NGT BID [facility] Last Admin: 10/15/19 10:47 Dose: 5 mg Documented by: Atorvastatin Calcium (Lipitor -) 40 mg PO [facility] Last Admin: 10/14/19 21:29 Dose: 40 mg Documented by: Chlorhexidine Gluconate (Hibiclens For Decolonization -) 1 applic TP [facility] Last Admin: 10/14/19 21:29 Dose: 1 applic Documented by: Chlorhexidine Gluconate (Peridex -) 15 ml MM BID [facility] Last Admin: 10/15/19 09:20 Dose: 15 ml Documented by: Diltiazem HCl (Cardizem -) 90 mg PO Q6HPO [facility] Last Admin: 10/15/19 11:04 Dose: 90 mg Documented by: Furosemide (Lasix Injection -) 40 mg IVPUSH BID@0600,1400 [facility] Propofol (Diprivan -) 1,000,000 mcg in 100 mls @ 8.165 mls/hr IVPB TITR [facility]; Protocol Last Titration: 10/15/19 10:16 Dose: 0 mcg/kg/min, 0 mls/hr Documented by: Vancomycin HCl (Vancomycin (Pre-Docked)) 1,000 mg in 250 mls @ 200 mls/hr IVPB Q24H [facility]; Protocol Last Admin: 10/15/19 10:47 Dose: 200 mls/hr Documented by: Norepinephrine Bitartrate (Levophed Bag) 8,000 mcg in 500 mls @ 18.75 mls/hr IVPB TITR [facility]; Protocol Last Titration: 10/14/19 21:28 Dose: 1 mcg/min, 3.75 mls/hr Documented by: Meropenem 1 gm/ Dextrose 100 mls @ 200 mls/hr IVPB Q8H-IV [facility] Last Admin: 10/15/19 09:21 Dose: 200 mls/hr Documented by: Fentanyl (Sublimaze Ivpb) 500 mcg in 100 mls @ 24.975 mls/hr IVPB TITR [facility]; Protocol Last Titration: 10/15/19 10:16 Dose: 0 mcg/kg/hr, 0 mls/hr Documented by: Metoprolol Tartrate (Lopressor Injection -) 5 mg IVPUSH Q4H PRN PRN Reason: HYPERTENSION Last Admin: 10/08/19 11:40 Dose: 5 mg Documented by: Metoprolol Tartrate (Lopressor -) 25 mg PO BID [facility] Last Admin: 10/15/19 09:20 Dose: 25 mg Documented by: Morphine Sulfate (Morphine Sulfate) 2 mg IVPUSH Q4H PRN PRN Reason: PAIN LEVEL 6-10 Pantoprazole Sodium (Protonix Iv) 40 mg IVPUSH DAILY [facility] Last Admin: 10/15/19 09:20 Dose: 40 mg Documented by: Polyethylene Glycol (Miralax (For Daily Use) -) 17 gm NGT HS@2100 [facility] Last Admin: 10/14/19 21:28 Dose: 17 gm Documented by: Scopolamine HBr (Transderm-Scop -) 1 patch TD Q72H [facility] Last Admin: 10/14/19 21:30 Dose: 1 patch Documented by: ASSESSMENT AND PLAN: Acute Hypoxic and Hypercapneic Respiratory Failure UTI Pneumonia ARDS Septic Shock Acute on Chronic Diastolic Heart Failure Volume Overload Atrial Fibrillation/Flutter with RVR h/o COVID19 Sarcoidosis Morbid Obesity EMMY/OHS Anemia - continue antibiotics per ID - titrate pressors to maintain MAP > 65 - rate control - continue anticoagulation - lasix today - monitor urine output, creatinine - continue volume assist control - taper FiO2, PEEP to keep SpO2 >90% - spontaneous breathing trials when oxygen requirements improve - enteral feeds - DVT/GI prophylaxis - continue ICU monitoring critical care time spent in reviewing chart, evaluating patient and formulating plan 35 min
[2019-10-15] MEDS ORDERED: FUROSEMIDE 40 MG/4 ML INJECTABLE VIAL IVPUSH ONE ×2 (12:00→18:00)
--- NOTE | 2019-10-15 12:54 | PN ---
Progress Note, Physician History of Present Illness: POD#1 percutaneous tracheostomy. Remains on low dose levophed gtt. Sedated and vented on volume assist control with 80% FiO2, PEEP 10. Remains in aflutter with variable conduction. - Current Medication List Current Medications: Active Medications Amino Acids (Prosource No Carb Liquid Pkt) 30 ml PO BID@0800,1730 [facility] Last Admin: 10/15/19 09:20 Dose: 30 ml Documented by: Apixaban (Eliquis -) 5 mg NGT BID [facility] Last Admin: 10/15/19 10:47 Dose: 5 mg Documented by: Atorvastatin Calcium (Lipitor -) 40 mg PO HS [facility] Last Admin: 10/14/19 21:29 Dose: 40 mg Documented by: Chlorhexidine Gluconate (Hibiclens For Decolonization -) 1 applic TP [facility] Last Admin: 10/14/19 21:29 Dose: 1 applic Documented by: Chlorhexidine Gluconate (Peridex -) 15 ml MM BID [facility] Last Admin: 10/15/19 09:20 Dose: 15 ml Documented by: Diltiazem HCl (Cardizem -) 90 mg PO Q6HPO [facility] Last Admin: 10/15/19 11:04 Dose: 90 mg Documented by: Furosemide (Lasix Injection -) 40 mg IVPUSH BID@0600,1400 [facility] Furosemide (Lasix Injection -) 40 mg IVPUSH ONCE ONE Stop: 10/15/19 18:01 Propofol (Diprivan -) 1,000,000 mcg in 100 mls @ 8.165 mls/hr IVPB TITR [facility]; Protocol Last Titration: 10/15/19 10:16 Dose: 0 mcg/kg/min, 0 mls/hr Documented by: Vancomycin HCl (Vancomycin (Pre-Docked)) 1,000 mg in 250 mls @ 200 mls/hr IVPB Q24H [facility]; Protocol Last Admin: 10/15/19 10:47 Dose: 200 mls/hr Documented by: Norepinephrine Bitartrate (Levophed Bag) 8,000 mcg in 500 mls @ 18.75 mls/hr IVPB TITR [facility]; Protocol Last Titration: 10/14/19 21:28 Dose: 1 mcg/min, 3.75 mls/hr Documented by: Meropenem 1 gm/ Dextrose 100 mls @ 200 mls/hr IVPB Q8H-IV [facility] Last Admin: 10/15/19 09:21 Dose: 200 mls/hr Documented by: Fentanyl (Sublimaze Ivpb) 500 mcg in 100 mls @ 24.975 mls/hr IVPB TITR [facility]; Protocol Last Titration: 10/15/19 10:16 Dose: 0 mcg/kg/hr, 0 mls/hr Documented by: Metoprolol Tartrate (Lopressor Injection -) 5 mg IVPUSH Q4H PRN PRN Reason: HYPERTENSION Last Admin: 10/08/19 11:40 Dose: 5 mg Documented by: Metoprolol Tartrate (Lopressor -) 25 mg PO BID [facility] Last Admin: 10/15/19 09:20 Dose: 25 mg Documented by: Morphine Sulfate (Morphine Sulfate) 2 mg IVPUSH Q4H PRN PRN Reason: PAIN LEVEL 6-10 Pantoprazole Sodium (Protonix Iv) 40 mg IVPUSH DAILY [facility] Last Admin: 10/15/19 09:20 Dose: 40 mg Documented by: Polyethylene Glycol (Miralax (For Daily Use) -) 17 gm NGT HS@2100 [facility] Last Admin: 10/14/19 21:28 Dose: 17 gm Documented by: Scopolamine HBr (Transderm-Scop -) 1 patch TD Q72H [facility] Last Admin: 10/14/19 21:30 Dose: 1 patch Documented by: - Objective Vital Signs: Vital Signs Temperature 98.2 F 10/15/19 10:00 Pulse Rate 103 H 10/15/19 12:00 Respiratory Rate 23 H 10/15/19 12:00 Blood Pressure 119/87 10/15/19 12:00 O2 Sat by Pulse Oximetry (%) 96 10/15/19 09:00 HENT: Yes: Other (Tracheostomy) Cardiovascular: Yes: Pulse Irregular Respiratory: Yes: Diminished, Mechanically Ventilated, Rhonchi Gastrointestinal: Yes: Normal Bowel Sounds, Soft, Abdomen, Obese Genitourinary: Yes: Andrews Present Edema: No Labs: CBC, BMP 10/15/19 05:00 10/15/19 05:00 INR, PTT INR 1.18 (0.83-1.09) H 10/14/19 05:30 - ....Imaging EKG: Report Reviewed (Tele: Aflutter with variable conduction) Problem List - Problems (1) Acute respiratory failure with hypoxia and hypercapnia Code(s): J96.01 - ACUTE RESPIRATORY FAILURE WITH HYPOXIA; J96.02 - ACUTE RESPIRATORY FAILURE WITH HYPERCAPNIA (2) Acute decompensated heart failure Code(s): I50.9 - HEART FAILURE, UNSPECIFIED (3) Acute hypercapnic respiratory failure due to obstructive sleep apnea Code(s): J96.02 - ACUTE RESPIRATORY FAILURE WITH HYPERCAPNIA; G47.33 - OBSTRUCTIVE SLEEP APNEA (ADULT) (PEDIATRIC) (4) Atrial fibrillation and flutter Code(s): I48.91 - UNSPECIFIED ATRIAL FIBRILLATION; I48.92 - UNSPECIFIED ATRIAL FLUTTER (5) Sarcoidosis of other sites Code(s): D86.89 - SARCOIDOSIS OF OTHER SITES (6) Sleep apnea Code(s): G47.30 - SLEEP APNEA, UNSPECIFIED Qualifiers: Sleep apnea type: obstructive Qualified Code(s): G47.33 - Obstructive sleep apnea (adult) (pediatric) (7) Type 2 diabetes mellitus Code(s): E11.9 - TYPE 2 DIABETES MELLITUS WITHOUT COMPLICATIONS Qualifiers: Diabetes mellitus longterm insulin use: without site promotion agent use Diabetes mellitus complication detail: with chronic kidney disease Chronic kidney disease stage: stage 2 (mild) Assessment/Plan 05/01/2019 Normal LV and RV size and fxn, tr TR 03/14/2019 Normal LV size and fxn, no thrombus ADEEL, mild-mod dilated and HK RV, tr MR, mild-mod TR, tr VA, trace pericardial effusion 1. Acute hypoxic and hypercapneic respiratory failure s/p tracheostomy on mechanical ventilation 2. Pneumonia, post septic shock and ARDS 3. Sarcoidosis confirmed by skin biopsy 4. OSAS/OHS 5. Persistent Atrial flutter/AF rate-controlled 6. Acute on chronic diastolic heart failure 7. Acute on CKD with hyperkalemia 8. Type 2 DM 9. Anemia 10. History of COVID 19 PLAN: 1. Taper FiO2, PEEP to keep SpO2 >90% 2. IV diuresis as needed with monitoring diuretic response, renal function and electrolytes 3. Rate-control with oral Cardizem 90 mg mg QID and Lopressor 25 mg BID for rate control. IV Cardizem and IV Lopressor as needed. Resumed Eliquis 5 bid post tracheostomy, GI prophylaxis, Lipitor 40 qd 4. Wean Levopphed to maintain MAP > 65, abx course per ID 5. Hold lisinopril 10 mg QD pending hemodynamic and renal stability 6. Follow up with Dr. Genaro Davila (cardiology at [facility]) as outpatient. Consider cardiac PET or MRI to exclude cardiac involvement in sarcoidosis as outpatient
[2019-10-15] MEDS ORDERED: FUROSEMIDE 40 MG/4 ML INJECTABLE VIAL IVPUSH SCH (14:00)
[2019-10-15] MEDS ORDERED: METOPROLOL TARTRATE 25 MG TABLET (FP) PO ONE (14:43)
[2019-10-15] MEDS ORDERED: morphine SULFATE 4 MG/ML VIAL ONE (14:48)
[2019-10-15] MEDS ORDERED: METOPROLOL TARTRATE 5 MG/5 ML VIAL ONE (14:48)
[2019-10-15] MEDS: METOPROLOL TARTRATE 5 MG/5 ML VIAL IVPUSH PRN ×2 (15:03→23:08)
[2019-10-15] MEDS ORDERED: METOPROLOL TARTRATE 5 MG/5 ML VIAL IVPUSH ONE (16:14)
--- NOTE | 2019-10-15 16:18 | PN ---
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 Last Admin: 10/15/19 09:20 Dose: 30 ml Documented by: Apixaban (Eliquis -) [address] [facility] Last Admin: 10/15/19 10:47 Dose: 5 mg Documented by: Atorvastatin Calcium (Lipitor -) [address] [facility] Last Admin: 10/14/19 21:29 Dose: 40 mg Documented by: Chlorhexidine Gluconate (Hibiclens For Decolonization -) 1 applic TP [facility] Last Admin: 10/14/19 21:29 Dose: 1 applic Documented by: Chlorhexidine Gluconate (Peridex -) [address] [facility] Last Admin: 10/15/19 09:20 Dose: 15 ml Documented by: Diltiazem HCl (Cardizem -) [address] [facility] Last Admin: 10/15/19 11:04 Dose: 90 mg Documented by: Furosemide (Lasix Injection -) 40 mg IVPUSH BID@0600,1400 [facility] Furosemide (Lasix Injection -) 40 mg IVPUSH ONCE ONE Stop: 10/15/19 18:01 Propofol (Diprivan -) 1,000,000 mcg in 100 mls @ 8.165 mls/hr IVPB TITR [facility]; Protocol Last Admin: 10/15/19 13:27 Dose: Not Given Documented by: Vancomycin HCl (Vancomycin (Pre-Docked)) 1,000 mg in 250 mls @ 200 mls/hr IVPB Q24H [facility]; Protocol Last Admin: 10/15/19 10:47 Dose: 200 mls/hr Documented by: Norepinephrine Bitartrate (Levophed Bag) 8,000 mcg in 500 mls @ 18.75 mls/hr IVPB TITR [facility]; Protocol Last Titration: 10/15/19 13:29 Dose: 0 mcg/min, 0 mls/hr Documented by: Meropenem 1 gm/ Dextrose 100 mls @ 200 mls/hr IVPB Q8H-IV [facility] Last Admin: 07/08/20 09:21 Dose: 200 mls/hr Documented by: Fentanyl (Sublimaze Ivpb) 500 mcg in 100 mls @ 24.975 mls/hr IVPB TITR [facility]; Protocol Last Titration: 10/15/19 10:16 Dose: 0 mcg/kg/hr, 0 mls/hr Documented by: Metoprolol Tartrate (Lopressor Injection -) 5 mg IVPUSH Q4H PRN PRN Reason: HYPERTENSION Last Admin: 10/15/19 15:03 Dose: 5 mg Documented by: Metoprolol Tartrate (Lopressor -) [address] [facility] Morphine Sulfate (Morphine Sulfate) 4 mg IVPUSH Q4H PRN PRN Reason: PAIN LEVEL 6-10 Pantoprazole Sodium (Protonix Iv) [address] [facility] Last Admin: 10/15/19 09:20 Dose: 40 mg Documented by: Polyethylene Glycol (Miralax (For Daily Use) -) 17 gm NGT HS@2100 [facility] Last Admin: 10/14/19 21:28 Dose: 17 gm Documented by: Scopolamine HBr (Transderm-Scop -) [address] [facility] Last Admin: 10/14/19 21:30 Dose: 1 patch Documented by: - Objective Vital Signs: Vital Signs Temperature 98.1 F 10/15/19 15:55 Pulse Rate 132 H 10/15/19 15:55 Respiratory Rate 21 H 10/15/19 15:55 Blood Pressure 121/94 10/15/19 15:55 O2 Sat by Pulse Oximetry (%) 98 10/15/19 12:23 Constitutional: Yes: No Distress Eyes: Yes: Conjunctiva Clear Cardiovascular: Yes: Regular Rate and Rhythm, S1, S2 Respiratory: Yes: Mechanically Ventilated Edema: Yes Labs: CBC, BMP 10/15/19 05:00 10/15/19 05:00 INR, PTT INR 1.18 (0.83-1.09) H 10/14/19 05:30 Assessment/Plan ACUTE RESP FAILURE + SPUTUM MRSA, ESBL PNEUMONIA SEPSIS R/O SEPTIC SHOCK UTI S/P CARDIOPULMONARY ARREST CONTINUE MEROPENEM/VANCOMYCIN VENTILATORY/ HEMODYNAMIC SUPPORT CONTACT PRECAUTIONS FOR TRACHEOSTOMY
[2019-10-15] MEDS ORDERED: ACETAMINOPHEN 1000 MG/100 ML VIAL (NON FORMULARY) IVPB ONE (22:21)
[2019-10-15] MEDS: MORPHINE SULFATE 2 MG/ML VIAL IVPUSH PRN (22:31)
[2019-10-15] MEDS: ATORVASTATIN CA 40 MG TABLET (FP) PO SCH (22:31)
[2019-10-15] MEDS: CHLORHEXIDINE GLUCONATE 4% CLEANSER FOR DECOLONIZATION TP SCH (22:32)
[2019-10-15] MEDS: POLYETHYLENE GLYCOL 3350 119 GM BTL NGT SCH (22:40)
[2019-10-15] MEDS ORDERED: DEXMEDETOMIDINE IN 0.9 % NACL 400 MCG/100 ML VIAL IVPB SCH (23:00)
[2019-10-16] MEDS: dilTIAZem HCL 60 MG TABLET PO SCH ×4 (00:17→18:14)
[2019-10-16] MEDS ORDERED: DEXTROSE 5%-WATER 100 ML IVPB ONE ×3 (01:20→18:15)
[2019-10-16] MEDS ORDERED: MEROPENEM 1 GM VIAL (RESTRICTED TO ID) IVPB ONE ×3 (01:20→18:15)
[2019-10-16] MEDS: MEROPENEM 1 GM in DEXTROSE 5%-WATER 100 ML IVPB SCH ×3 (01:21→18:14)
[2019-10-16] MEDS ORDERED: ACETAMINOPHEN 1000 MG/100 ML VIAL (NON FORMULARY) IVPB ONE (03:15)
[2019-10-16] MEDS: FUROSEMIDE 40 MG/4 ML INJECTABLE VIAL IVPUSH SCH ×2 (05:24→14:44)
[2019-10-16] MEDS: METOPROLOL TARTRATE 5 MG/5 ML VIAL IVPUSH PRN ×2 (05:53→20:21)
[2019-10-16 06:56] LABS: BASO % 0.4 % (0-2.0); EOS % 0.2 % (0-4.5); HEMATOCRIT 29.3 % (35.4-49); HEMOGLOBIN 9.4 GM/dL (11.7-16.9); LYMPH % 2.3 % (8-40); MCH 24.8 pg (25.7-33.7); MCHC 31.9 g/dl (32.0-35.9); MEAN CELL VOLUME 77.8 fl (80-96); MEAN PLT VOLUME 8.2 fl (7.5-11.1); MONO % 5.9 % (3.8-10.2); NEUT % 91.2 % (42.8-82.8); PLATELET COUNT 416 K/MM3 (134-434); RBC 3.77 M/mm3 (4.00-5.60); RDW 17.8 % (11.9-15.9); WHITE BLOOD COUNT 9.9 K/mm3 (4.0-10.0)
[2019-10-16 07:06] LABS: BILIRUBIN,TOTAL 0.4 mg/dL (0.2-1); BLOOD UREA NITROGEN 19.7 mg/dL (7-18); CALCIUM 8.4 mg/dL (8.5-10.1); CREATININE 0.7 mg/dL (0.55-1.3); MAGNESIUM 1.8 mg/dL (1.8-2.4); PHOSPHOROUS 4.2 mg/dL (2.5-4.9); POTASSIUM 4.2 mmol/L (3.5-5.1); TOT PROT 5.6 g/dl (6.4-8.2)
--- NOTE | 2019-10-16 07:32 | PN ---
Physical Exam: SUBJECTIVE: Patient seen and examined this morning. Tachycardic last night (140s-150s) - controlled with lopressor IV pushes. Precedex (0.2 mg) started last night but stopped this morning. Currently off sedation and off pressors. Ventilated on volume-assist control. Vent: RR 18, TV 390, FiO2 80, PEEP 10 OBJECTIVE: Vital Signs Period Temp Pulse Resp BP Sys/[place] Pulse Ox Last 24 Hr 98.1 F-99.4 F 70-144 19-37 99-148/63-103 88-98 GENERAL: The patient is sedated and intubated. HEAD: NCAT LUNGS: Breath sounds from ventilator equal, rhonchi present bilaterally, no wheezes or crackles. HEART: Regular rate and irregular rhythm; S1, S2 normal without murmur, rub or gallop. ABDOMEN: soft, non tender, mildly distended abdomen; BS heard in all four quadrants EXTREMITIES: 2+ pulses, warm, well-perfused, edema in lower extremities NEUROLOGICAL: Cranial nerves II through XII grossly intact. Normal speech, gait not observed. SKIN: Warm, normal turgor, no rashes or lesions noted Laboratory Results - last 24 hr 10/15/19 10/16/19 10/16/19 23:52 05:15 05:15 WBC 9.9 RBC 3.77 L Hgb 9.4 L Hct 29.3 L MCV 77.8 L MCH 24.8 L MCHC 31.9 L RDW 17.8 H Plt Count 416 MPV 8.2 Absolute Neuts (auto) 9.0 H Neutrophils % 91.2 H Lymphocytes % 2.3 L D Monocytes % 5.9 Eosinophils % 0.2 D Basophils % 0.4 Nucleated RBC % 0 Sodium 137 Potassium 4.2 Chloride 97 L Carbon Dioxide 32 Anion Gap 8 BUN 19.7 H Creatinine 0.7 Est GFR (CKD-EPI)AfAm 126.64 Est GFR (CKD-EPI)NonAf 109.27 POC Glucometer 170 Random Glucose 202 H Calcium 8.4 L Phosphorus 4.2 Magnesium 1.8 Total Bilirubin 0.4 AST 28 ALT 25 Alkaline Phosphatase 188 H Total Protein 5.6 L Albumin 2.0 L Active Medications Generic Name Dose Route Start Last Admin Trade Name Freq PRN Reason Stop Dose Admin Amino Acids 30 ml 09/29/19 17:30 10/15/19 17:42 Prosource No Carb Liquid Pkt PO 30 ml BID@0800,1730 [facility] Administration Apixaban 5 mg 10/15/19 10:15 10/15/19 22:31 Eliquis - NGT 5 mg BID [facility] Administration Atorvastatin Calcium 40 mg 10/08/19 22:00 10/15/19 22:31 Lipitor - PO 40 mg HS [facility] Administration Chlorhexidine Gluconate 1 applic 09/27/19 22:00 10/15/19 22:32 Hibiclens For Decolonization - TP 1 applic HS [facility] Administration Chlorhexidine Gluconate 15 ml 10/05/19 22:00 10/15/19 22:31 Peridex - MM 15 ml BID [facility] Administration Diltiazem HCl 90 mg 10/07/19 11:32 10/16/19 05:24 Cardizem - PO 90 mg Q6HPO [facility] Administration Furosemide 40 mg 10/16/19 06:00 10/16/19 05:24 Lasix Injection - IVPUSH 40 mg BID@0600,1400 [facility] Administration Propofol 1,000,000 mcg in 100 mls @ 8.165 mls/hr 09/27/19 13:00 10/15/19 13:27 Diprivan - IVPB Not Given TITR [facility] Protocol 10 MCG/KG/MIN Vancomycin HCl 1,000 mg in 250 mls @ 200 mls/hr 10/04/19 11:00 10/15/19 10:47 Vancomycin (Pre-Docked) IVPB 200 mls/hr Q24H [facility] Administration Protocol Norepinephrine Bitartrate 8,000 mcg in 500 mls @ 18.75 mls/hr 10/07/19 19:15 10/15/19 13:29 Levophed Bag IVPB 0 mcg/min TITR [facility] 0 mls/hr Titration Protocol 5 MCG/MIN Meropenem 1 gm/ Dextrose 100 mls @ 200 mls/hr 10/10/19 18:00 10/16/19 01:21 IVPB 200 mls/hr Q8H-IV [facility] Administration Fentanyl 500 mcg in 100 mls @ 24.975 mls/hr 10/14/19 19:00 10/15/19 22:48 Sublimaze Ivpb IVPB Not Given TITR [facility] Protocol 1 MCG/KG/HR Dexmedetomidine/Sodium Chloride 400 mcg in 100 mls @ 6.409 mls/hr 10/15/19 23:00 10/15/19 23:47 Precedex 400 Mcg/100 Ml Inject IVPB 0.2 mcg/kg/hr TITR [facility] 6.409 mls/hr Administration 0.2 MCG/KG/HR Metoprolol Tartrate 5 mg 10/07/19 23:27 10/16/19 05:53 Lopressor Injection - IVPUSH 5 mg Q4H PRN Administration HYPERTENSION Metoprolol Tartrate 50 mg 10/15/19 22:00 10/15/19 22:31 Lopressor - PO 50 mg BID [facility] Administration Morphine Sulfate 4 mg 10/15/19 14:47 10/15/19 22:31 Morphine Sulfate IVPUSH 4 mg Q4H PRN Administration PAIN LEVEL 6-10 Pantoprazole Sodium 40 mg 09/29/19 11:00 10/15/19 09:20 Protonix Iv IVPUSH 40 mg DAILY [facility] Administration Polyethylene Glycol 17 gm 10/03/19 21:00 10/15/19 22:40 Miralax (For Daily Use) - NGT 17 gm HS@2100 [facility] Administration Scopolamine HBr 1 patch 10/08/19 22:00 10/14/19 21:30 Transderm-Scop - TD 1 patch Q72H [facility] Administration ASSESSMENT/PLAN: 53 yo m w/ dDHF, afib/flutter on eliquis, sarcoidosis, guillan barre, morbid obesity, tracheostomy with reversal (during COVID hospitalization) who is admitted for acute on chronic hypercapnic hypoxic respiratory failure 2/2 to CHF. Pt is s/p tracheostomy on 10/13. Sedation stopped today. #Neuro - patient just recently taken off sedation, unable to assess mental status yet #Cardio h/o afib/aflutter, acute on chronic diastolic CHF exacerbation, persistently tachycardic - cardizem 90 q6h, metoprolol 50 bid, metoprolol pushes prn for tachycardia, consider cardizem pushes for tachycardia, as per Cardiology - c/w eliquis - off pressors, MAP goal > 65 - continue home dose atorvastatin acute on chronic diastolic CHF exacerbation - 08/27/19 Echo: low normal LV function EF 25%, mild LVH, mildly dilated RA and RV, moderate to severe pulmonary HTN - c/w lasix 40 mg bid d/t increasing edema - continue to monitor I's &O's, daily weights - continue to hold lisinopril #pulm acute hypoxic hypercapnic respiratory failure 2/2 to CHF exacerbation - maintain saturation >88%, continue to try and wean down vent settings - CXR today (10/15) with minimal changes - monitor CXR - continue to titrate down O2 settings as tolerated - morphine 4 mg q4h prn for pain s/p tracheostomy #ID sputum growing ESBL and MRSA - Meropenem q8h (started 10/09) - Vancomycin daily (started 09/30) - contact precautions #Endo - BGM ACHS - continue SS #heme anemia, at baseline - monitor Hgb daily (uptrending to 9.4 today) #GI constipation - stool softeners with miralax #FEN - promote tube feeds (high protein, low kcal) #PPx - DVT: eliquis - GI: pantoprazole #LTD - NG tube 10/07 - central line RIJ 10/12 - A line 10/04 - ortiz catheter 10/13 Tana Madrigal # [phone] (understands Swedish but only speaks Vietnamese) Dispo - continue to monitor in ICU Visit type - Emergency Visit Emergency Visit: Yes ED Registration Date: 09/27/19 Care time: The patient presented to the Emergency Department on the above date and was hospitalized for further evaluation of their emergent condition. - New Patient This patient is new to me today: No - Critical Care Critical Care patient: Yes Total Critical Care Time (in minutes): 38 Critical Care Statement: The care of this patient involved high complexity decision making to prevent further life threatening deterioration of the patient's condition and/or to evaluate & treat vital organ system(s) failure or risk of failure. ATTENDING PHYSICIAN STATEMENT I saw and evaluated the patient. I reviewed the resident's note and discussed the case with the resident. I agree with the resident's findings and plan as documented. SUBJECTIVE: OBJECTIVE: ASSESSMENT AND PLAN:
[2019-10-16] MEDS: PANTOPRAZOLE SODIUM 40 MG VIAL IVPUSH SCH (09:37)
[2019-10-16] MEDS: CHLORHEXIDINE GLUCONATE 0.12% 15ML CUP MM SCH ×2 (09:37→21:46)
[2019-10-16] MEDS: APIXABAN 5 MG TABLET NGT SCH ×2 (09:37→21:46)
[2019-10-16] MEDS: AMINO ACIDS/PROTEIN HYDROLYS 30 ML LIQUID.PKT PO SCH ×2 (09:37→18:14)
[2019-10-16] MEDS: METOPROLOL TARTRATE 25 MG TABLET (FP) PO SCH ×2 (09:39→21:46)
--- NOTE | 2019-10-16 09:42 | PN ---
Progress Note, Physician History of Present Illness: Vented, arousable. Off pressors. Vented on volume assist control with 80% FiO2, PEEP 10. Remains in aflutter with variable conduction. - Current Medication List Current Medications: Active Medications Amino Acids (Prosource No Carb Liquid Pkt) 30 ml PO BID@0800,1730 [facility] Last Admin: 10/16/19 09:37 Dose: 30 ml Documented by: Apixaban (Eliquis -) 5 mg NGT BID [facility] Last Admin: 10/16/19 09:37 Dose: 5 mg Documented by: Atorvastatin Calcium (Lipitor -) 40 mg PO [facility] Last Admin: 10/15/19 22:31 Dose: 40 mg Documented by: Chlorhexidine Gluconate (Hibiclens For Decolonization -) 1 applic TP [facility] Last Admin: 10/15/19 22:32 Dose: 1 applic Documented by: Chlorhexidine Gluconate (Peridex -) 15 ml MM BID [facility] Last Admin: 10/16/19 09:37 Dose: 15 ml Documented by: Diltiazem HCl (Cardizem -) 90 mg PO Q6HPO [facility] Last Admin: 10/16/19 05:24 Dose: 90 mg Documented by: Furosemide (Lasix Injection -) 40 mg IVPUSH BID@0600,1400 [facility] Last Admin: 10/16/19 05:24 Dose: 40 mg Documented by: Vancomycin HCl (Vancomycin (Pre-Docked)) 1,000 mg in 250 mls @ 200 mls/hr IVPB Q24H [facility]; Protocol Last Admin: 10/15/19 10:47 Dose: 200 mls/hr Documented by: Meropenem 1 gm/ Dextrose 100 mls @ 200 mls/hr IVPB Q8H-IV [facility] Last Admin: 10/16/19 09:39 Dose: 200 mls/hr Documented by: Dexmedetomidine/Sodium Chloride (Precedex 400 Mcg/100 Ml Inject) 400 mcg in 100 mls @ 6.409 mls/hr IVPB TITR [facility] Last Admin: 10/15/19 23:47 Dose: 0.2 mcg/kg/hr, 6.409 mls/hr Documented by: Metoprolol Tartrate (Lopressor Injection -) 5 mg IVPUSH Q4H PRN PRN Reason: HYPERTENSION Last Admin: 10/16/19 05:53 Dose: 5 mg Documented by: Metoprolol Tartrate (Lopressor -) 50 mg PO BID [facility] Last Admin: 10/16/19 09:39 Dose: 50 mg Documented by: Morphine Sulfate (Morphine Sulfate) 4 mg IVPUSH Q4H PRN PRN Reason: PAIN LEVEL 6-10 Last Admin: 10/15/19 22:31 Dose: 4 mg Documented by: Pantoprazole Sodium (Protonix Iv) 40 mg IVPUSH DAILY [facility] Last Admin: 10/16/19 09:37 Dose: 40 mg Documented by: Polyethylene Glycol (Miralax (For Daily Use) -) 17 gm NGT HS@2100 [facility] Last Admin: 10/15/19 22:40 Dose: 17 gm Documented by: Scopolamine HBr (Transderm-Scop -) 1 patch TD Q72H [facility] Last Admin: 10/14/19 21:30 Dose: 1 patch Documented by: - Objective Vital Signs: Vital Signs Temperature 98.9 F 10/16/19 08:00 Pulse Rate 130 H 10/16/19 08:00 Respiratory Rate 21 H 10/16/19 09:00 Blood Pressure 109/70 10/16/19 08:00 O2 Sat by Pulse Oximetry (%) 93 L 10/16/19 09:00 Constitutional: Yes: No Distress, Calm Neck: Yes: Other (Trach) Cardiovascular: Yes: Pulse Irregular Respiratory: Yes: Mechanically Ventilated Gastrointestinal: Yes: Normal Bowel Sounds, Soft, Abdomen, Obese Genitourinary: Yes: Andrews Present Edema: Yes Edema: LLE: Trace, RLE: Trace Labs: CBC, BMP 10/16/19 05:15 10/16/19 05:15 INR, PTT INR 1.18 (0.83-1.09) H 10/14/19 05:30 - ....Imaging Chest X-ray: Report Reviewed (Bilateral congestion) Problem List - Problems (1) Acute respiratory failure with hypoxia and hypercapnia Code(s): J96.01 - ACUTE RESPIRATORY FAILURE WITH HYPOXIA; J96.02 - ACUTE RESPIRATORY FAILURE WITH HYPERCAPNIA (2) Acute decompensated heart failure Code(s): I50.9 - HEART FAILURE, UNSPECIFIED (3) Acute hypercapnic respiratory failure due to obstructive sleep apnea Code(s): J96.02 - ACUTE RESPIRATORY FAILURE WITH HYPERCAPNIA; G47.33 - OBSTRUCTIVE SLEEP APNEA (ADULT) (PEDIATRIC) (4) Atrial fibrillation and flutter Code(s): I48.91 - UNSPECIFIED ATRIAL FIBRILLATION; I48.92 - UNSPECIFIED ATRIAL FLUTTER (5) Sarcoidosis of other sites Code(s): D86.89 - SARCOIDOSIS OF OTHER SITES (6) Sleep apnea Code(s): G47.30 - SLEEP APNEA, UNSPECIFIED Qualifiers: Sleep apnea type: obstructive Qualified Code(s): G47.33 - Obstructive sleep apnea (adult) (pediatric) (7) Type 2 diabetes mellitus Code(s): E11.9 - TYPE 2 DIABETES MELLITUS WITHOUT COMPLICATIONS Qualifiers: Diabetes mellitus intermodal customer service insulin use: without shelter use Diabetes mellitus complication detail: with chronic kidney disease Chronic kidney disease stage: stage 2 (mild) Assessment/Plan 05/01/2019 Normal LV and RV size and fxn, tr TR 03/14/2019 Normal LV size and fxn, no thrombus ADEEL, mild-mod dilated and HK RV, tr MR, mild-mod TR, tr HI, trace pericardial effusion 1. Acute hypoxic and hypercapneic respiratory failure s/p tracheostomy on mechanical ventilation 2. Pneumonia, post septic shock and ARDS 3. Sarcoidosis confirmed by skin biopsy 4. OSAS/OHS 5. Persistent Atrial flutter/AF rate-controlled 6. Acute on chronic diastolic heart failure 7. Acute on CKD with hyperkalemia 8. Type 2 DM 9. Anemia 10. History of COVID 19 PLAN: 1. Taper FiO2, PEEP to keep SpO2 >90%, enteral feeds 2. IV diuresis as needed with monitoring diuretic response, renal function and electrolytes 3. Rate-control with oral Cardizem 90 mg mg QID and Lopressor 50 mg BID for rate control. IV Cardizem and IV Lopressor as needed. Resumed Eliquis 5 bid post tracheostomy, GI prophylaxis, Lipitor 40 qd 4. Weaned off Levophed to maintain MAP > 65, abx course per ID 5. Hold lisinopril 10 mg QD pending hemodynamic and renal stability 6. Follow up with Dr. Genaro Davila (cardiology at [place]) as outpatient. Consider cardiac PET or MRI to exclude cardiac involvement in sarcoidosis as outpatient
--- NOTE | 2019-10-16 10:39 | PN ---
Teaching Attending Note Name of Resident: Emmanuel Cheek ATTENDING PHYSICIAN STATEMENT I saw and evaluated the patient. I reviewed the resident's note and discussed the case with the resident. I agree with the resident's findings and plan as documented. SUBJECTIVE: Pt seen and examined in the ICU. Vented, arousable. Off pressors. Heart rates have been variable. Vented on volume assist control with 80% FiO2, PEEP 10. OBJECTIVE: Vital Signs Period Temp Pulse Resp BP Sys/Kenyon Pulse Ox Last 24 Hr 98.1 F-99.4 F 103-144 20-37 109-148/70-103 88-98 Intake & Output 10/13/19 10/14/19 10/15/19 10/16/19 23:59 23:59 23:59 23:59 Intake Total 1944 1238.7 1115.0 347 Output Total 2200 1425 3960 600 Balance -256 -186.3 -2845.0 -253 Weight 123.519 kg 124.874 kg 128.185 kg 129.2 kg Gen: intubated, sedated Heart: RRR Lung: scattered rhonchi Abd: soft, nontender Ext: no edema CBC, BMP 10/16/19 05:15 10/16/19 05:15 Active Medications Amino Acids (Prosource No Carb Liquid Pkt) 30 ml PO BID@0800,1730 [facility] Last Admin: 10/16/19 09:37 Dose: 30 ml Documented by: Apixaban (Eliquis -) 5 mg NGT BID [facility] Last Admin: 10/16/19 09:37 Dose: 5 mg Documented by: Atorvastatin Calcium (Lipitor -) 40 mg PO [facility] Last Admin: 10/15/19 22:31 Dose: 40 mg Documented by: Chlorhexidine Gluconate (Hibiclens For Decolonization -) 1 applic TP [facility] Last Admin: 10/15/19 22:32 Dose: 1 applic Documented by: Chlorhexidine Gluconate (Peridex -) 15 ml MM BID [facility] Last Admin: 10/16/19 09:37 Dose: 15 ml Documented by: Diltiazem HCl (Cardizem -) 90 mg PO Q6HPO [facility] Last Admin: 10/16/19 05:24 Dose: 90 mg Documented by: Furosemide (Lasix Injection -) 40 mg IVPUSH BID@0600,1400 [facility] Last Admin: 10/16/19 05:24 Dose: 40 mg Documented by: Vancomycin HCl (Vancomycin (Pre-Docked)) 1,000 mg in 250 mls @ 200 mls/hr IVPB Q24H [facility]; Protocol Last Admin: 10/15/19 10:47 Dose: 200 mls/hr Documented by: Meropenem 1 gm/ Dextrose 100 mls @ 200 mls/hr IVPB Q8H-IV [facility] Last Admin: 10/16/19 09:39 Dose: 200 mls/hr Documented by: Dexmedetomidine/Sodium Chloride (Precedex 400 Mcg/100 Ml Inject) 400 mcg in 100 mls @ 6.409 mls/hr IVPB TITR [facility] Last Admin: 10/15/19 23:47 Dose: 0.2 mcg/kg/hr, 6.409 mls/hr Documented by: Metoprolol Tartrate (Lopressor Injection -) 5 mg IVPUSH Q4H PRN PRN Reason: HYPERTENSION Last Admin: 10/16/19 05:53 Dose: 5 mg Documented by: Metoprolol Tartrate (Lopressor -) 50 mg PO BID [facility] Last Admin: 10/16/19 09:39 Dose: 50 mg Documented by: Morphine Sulfate (Morphine Sulfate) 4 mg IVPUSH Q4H PRN PRN Reason: PAIN LEVEL 6-10 Last Admin: 10/15/19 22:31 Dose: 4 mg Documented by: Pantoprazole Sodium (Protonix Iv) 40 mg IVPUSH DAILY [facility] Last Admin: 10/16/19 09:37 Dose: 40 mg Documented by: Polyethylene Glycol (Miralax (For Daily Use) -) 17 gm NGT HS@2100 [facility] Last Admin: 10/15/19 22:40 Dose: 17 gm Documented by: Scopolamine HBr (Transderm-Scop -) 1 patch TD Q72H [facility] Last Admin: 10/14/19 21:30 Dose: 1 patch Documented by: ASSESSMENT AND PLAN: Acute Hypoxic and Hypercapneic Respiratory Failure UTI Pneumonia ARDS Septic Shock Acute on Chronic Diastolic Heart Failure Volume Overload Atrial Fibrillation/Flutter with RVR h/o COVID19 Sarcoidosis Morbid Obesity EMMY/OHS Anemia - continue antibiotics per ID - off pressors, maintain MAP > 65 - rate control - continue anticoagulation - lasix today - monitor urine output, creatinine - continue volume assist control - taper FiO2, PEEP to keep SpO2 >90% - spontaneous breathing trials when oxygen requirements improve - enteral feeds - DVT/GI prophylaxis - continue ICU monitoring critical care time spent in reviewing chart, evaluating patient and formulating plan 35 min
[2019-10-16 10:54] LABS: ANISOCYTOSIS 1+; MACROCYTOSIS 0; OVALOCYTE 1+; PLATELET ESTIMATE NORMAL; TEAR DROP CELLS 1+
[2019-10-16] MEDS: VANCOMYCIN 1 GRAM (PRE-DOCKED) 1,000 MG/250 ML BAG IVPB SCH (11:46)
[2019-10-16] MEDS ORDERED: LORazepam 2 MG/ML SDV VIAL IVPUSH ONE (20:22)
[2019-10-16] MEDS: POLYETHYLENE GLYCOL 3350 119 GM BTL NGT SCH (21:46)
[2019-10-16] MEDS: CHLORHEXIDINE GLUCONATE 4% CLEANSER FOR DECOLONIZATION TP SCH (21:46)
[2019-10-16] MEDS: ATORVASTATIN CA 40 MG TABLET (FP) PO SCH (21:46)
[2019-10-16] MEDS: MORPHINE SULFATE 2 MG/ML VIAL IVPUSH PRN (21:47)
[2019-10-17] MEDS: dilTIAZem HCL 60 MG TABLET PO SCH ×5 (00:06→23:06)
[2019-10-17] MEDS: MEROPENEM 1 GM in DEXTROSE 5%-WATER 100 ML IVPB SCH ×2 (01:33→09:13)
[2019-10-17] MEDS: MORPHINE SULFATE 2 MG/ML VIAL IVPUSH PRN ×2 (06:00→20:16)
[2019-10-17] MEDS: FUROSEMIDE 40 MG/4 ML INJECTABLE VIAL IVPUSH SCH ×2 (06:30→13:40)
[2019-10-17 07:09] LABS: HEMATOCRIT 28.5 % (35.4-49); HEMOGLOBIN 8.9 GM/dL (11.7-16.9); MCH 24.3 pg (25.7-33.7); MCHC 31.1 g/dl (32.0-35.9); MEAN CELL VOLUME 78.2 fl (80-96); MEAN PLT VOLUME 8.2 fl (7.5-11.1); PLATELET COUNT 410 K/MM3 (134-434); RBC 3.64 M/mm3 (4.00-5.60); RDW 18.4 % (11.9-15.9); WHITE BLOOD COUNT 11.8 K/mm3 (4.0-10.0)
[2019-10-17 07:17] LABS: ALBUMIN 1.9 g/dl (3.4-5.0); BILIRUBIN,TOTAL 0.5 mg/dL (0.2-1); BLOOD UREA NITROGEN 19.5 mg/dL (7-18); CALCIUM 8.5 mg/dL (8.5-10.1); CREATININE 0.7 mg/dL (0.55-1.3); MAGNESIUM 1.6 mg/dL (1.8-2.4); POTASSIUM 3.8 mmol/L (3.5-5.1); TOT PROT 5.2 g/dl (6.4-8.2)
[2019-10-17] MEDS ORDERED: MAGNESIUM SULF 50% (8.12 MEQ/2 ML-1 GM VIAL) IVPB ONE (07:42)
--- NOTE | 2019-10-17 07:49 | PN ---
Physical Exam: SUBJECTIVE: Patient seen and examined this morning. Currently off pressors and sedation. No acute events overnight. Ventilated on volume-assist control. Vent: RR 18, TV 390, FiO2 60, PEEP 10 OBJECTIVE: Vital Signs Period Temp Pulse Resp BP Sys/[place]yon Pulse Ox Last 24 Hr 98.3 F-99.6 F 108-168 20-32 109-170/70-107 92-96 GENERAL: The patient is sedated and intubated. HEAD: NCAT LUNGS: Breath sounds from ventilator equal, rhonchi present bilaterally, no wheezes or crackles. HEART: Regular rate and irregular rhythm; S1, S2 normal without murmur, rub or gallop. ABDOMEN: soft, non tender, mildly distended abdomen; BS heard in all four quadrants EXTREMITIES: 2+ pulses, warm, well-perfused, edema in lower extremities NEUROLOGICAL: Cranial nerves II through XII grossly intact. Normal speech, gait not observed. SKIN: Warm, normal turgor, no rashes or lesions noted Laboratory Results - last 24 hr 10/16/19 10/16/19 10/17/19 05:15 11:45 06:00 Neutrophils % (Manual) 94.0 H Band Neutrophils % 1.0 Lymphocytes % (Manual) 2.0 L Monocytes % (Manual) 1 L Eosinophils % (Manual) 0.0 Basophils % (Manual) 2.0 D Myelocytes % (Man) 0 D Promyelocytes % (Man) 0 Blast Cells % (Manual) 0 Nucleated RBC % 0 Metamyelocytes 0 Hypochromia 0 Platelet Estimate Normal Polychromasia 1+ Poikilocytosis 1+ Anisocytosis 1+ Microcytosis 1+ Macrocytosis 0 Spherocytes 1+ Tear Drop Cells 1+ Ovalocytes 1+ Acanthocytes (Spur) 1+ Sodium 137 Potassium 3.8 Chloride 97 L Carbon Dioxide 35 H Anion Gap 5 L BUN 19.5 H Creatinine 0.7 Est GFR (CKD-EPI)AfAm 126.64 Est GFR (CKD-EPI)NonAf 109.27 POC Glucometer 231 Random Glucose 235 H Calcium 8.5 Phosphorus 3.0 Magnesium 1.6 L Total Bilirubin 0.5 AST 25 ALT 28 Alkaline Phosphatase 161 H Total Protein 5.2 L Albumin 1.9 L Active Medications Generic Name Dose Route Start Last Admin Trade Name Freq PRN Reason Stop Dose Admin Amino Acids 30 ml 09/29/19 17:30 10/16/19 18:14 Prosource No Carb Liquid Pkt PO 30 ml BID@0800,1730 [facility] Administration Apixaban 5 mg 10/15/19 10:15 10/16/19 21:46 Eliquis - NGT 5 mg BID [facility] Administration Atorvastatin Calcium 40 mg 10/08/19 22:00 10/16/19 21:46 Lipitor - PO 40 mg HS [facility] Administration Chlorhexidine Gluconate 1 applic 09/27/19 22:00 10/16/19 21:46 Hibiclens For Decolonization - TP 1 applic HS [facility] Administration Chlorhexidine Gluconate 15 ml 10/05/19 22:00 10/16/19 21:46 Peridex - MM 15 ml BID [facility] Administration Diltiazem HCl 90 mg 10/07/19 11:32 10/17/19 06:30 Cardizem - PO 90 mg Q6HPO [facility] Administration Furosemide 40 mg 10/16/19 06:00 10/17/19 06:30 Lasix Injection - IVPUSH 40 mg BID@0600,1400 [facility] Administration Vancomycin HCl 1,000 mg in 250 mls @ 200 mls/hr 10/04/19 11:00 10/16/19 11:46 Vancomycin (Pre-Docked) IVPB 200 mls/hr Q24H [facility] Administration Protocol Meropenem 1 gm/ Dextrose 100 mls @ 200 mls/hr 10/10/19 18:00 10/17/19 01:33 IVPB 200 mls/hr Q8H-IV [facility] Administration Dexmedetomidine/Sodium Chloride 400 mcg in 100 mls @ 6.409 mls/hr 10/15/19 23:00 10/17/19 07:02 Precedex 400 Mcg/100 Ml Inject IVPB 0.5 mcg/kg/hr TITR [facility] 16.023 mls/hr Infusion 0.2 MCG/KG/HR Magnesium Sulfate 2 gm 10/17/19 07:42 Magnesium Sulfate IVPB 10/17/19 07:43 ONCE ONE Metoprolol Tartrate 5 mg 10/07/19 23:27 10/16/19 20:21 Lopressor Injection - IVPUSH 5 mg Q4H PRN Administration HYPERTENSION Metoprolol Tartrate 50 mg 10/15/19 22:00 10/16/19 21:46 Lopressor - PO 50 mg BID [facility] Administration Morphine Sulfate 4 mg 10/15/19 14:47 10/17/19 06:00 Morphine Sulfate IVPUSH 4 mg Q4H PRN Administration PAIN LEVEL 6-10 Pantoprazole Sodium 40 mg 09/29/19 11:00 10/16/19 09:37 Protonix Iv IVPUSH 40 mg DAILY [facility] Administration Polyethylene Glycol 17 gm 10/03/19 21:00 10/16/19 21:46 Miralax (For Daily Use) - NGT 17 gm HS@2100 [facility] Administration Scopolamine HBr 1 patch 10/08/19 22:00 10/14/19 21:30 Transderm-Scop - TD 1 patch Q72H [facility] Administration ASSESSMENT/PLAN:53 yo m w/ dDHF, afib/flutter on eliquis, sarcoidosis, guillan barre, morbid obesity, tracheostomy with reversal (during [facility] hospitalization) who is admitted for acute on chronic hypercapnic hypoxic respiratory failure 2/2 to CHF. Pt is s/p tracheostomy on 10/13. Sedation stopped today. #Neuro - patient just recently taken off sedation, unable to assess mental status yet #Cardio h/o afib/aflutter, acute on chronic diastolic CHF exacerbation, persistently tachycardic - cardizem 90 q6h, metoprolol 50 bid, metoprolol pushes prn for tachycardia, consider cardizem pushes for tachycardia, as per Cardiology - c/w eliquis - off pressors, MAP goal > 65 - continue home dose atorvastatin acute on chronic diastolic CHF exacerbation - 08/27/19 Echo: low normal LV function EF 25%, mild LVH, mildly dilated RA and RV, moderate to severe pulmonary HTN - c/w lasix 40 mg bid d/t increasing edema - continue to monitor I's &O's, daily weights - continue to hold lisinopril #pulm acute hypoxic hypercapnic respiratory failure 2/2 to CHF exacerbation - maintain saturation >88%, continue to try and wean down vent settings - CXR today (10/15) with minimal changes - monitor CXR - continue to titrate down O2 settings as tolerated - morphine 4 mg q4h prn for pain s/p tracheostomy #ID sputum growing ESBL and MRSA - Meropenem q8h (started 10/09) - Vancomycin daily (started 09/30) - contact precautions #Endo - BGM ACHS - continue SS #heme anemia, at baseline - monitor Hgb daily (uptrending to 9.4 today) #GI constipation - stool softeners with miralax #FEN - promote tube feeds (high protein, low kcal) #PPx - DVT: eliquis - GI: pantoprazole #LTD - NG tube 10/07 - central line RIJ 10/12 - A line 10/04 - ortiz catheter 10/13 Tana Madrigal # [phone] (understands Arabic but only speaks Honduran) Dispo - continue to monitor in ICU ATTENDING PHYSICIAN STATEMENT I saw and evaluated the patient. I reviewed the resident's note and discussed the case with the resident. I agree with the resident's findings and plan as documented. SUBJECTIVE: OBJECTIVE: ASSESSMENT AND PLAN:
[2019-10-17] MEDS ORDERED: MEROPENEM 1 GM VIAL (RESTRICTED TO ID) IVPB ONE ×3 (08:28→16:11)
[2019-10-17] MEDS ORDERED: DEXTROSE 5%-WATER 100 ML IVPB ONE ×3 (08:28→16:11)
[2019-10-17] MEDS: AMINO ACIDS/PROTEIN HYDROLYS 30 ML LIQUID.PKT PO SCH ×2 (09:11→17:13)
[2019-10-17] MEDS: APIXABAN 5 MG TABLET NGT SCH ×2 (09:13→21:10)
[2019-10-17] MEDS: METOPROLOL TARTRATE 25 MG TABLET (FP) PO SCH ×2 (09:13→21:10)
[2019-10-17] MEDS: PANTOPRAZOLE SODIUM 40 MG VIAL IVPUSH SCH (09:13)
[2019-10-17] MEDS: CHLORHEXIDINE GLUCONATE 0.12% 15ML CUP MM SCH ×2 (09:13→21:10)
--- NOTE | 2019-10-17 09:47 | PN ---
Progress Note (short form) - Note Progress Note: No acute cardiac events; Monitor AFl with variable conduction, currently 100/' Vital Signs Temperature 98.3 F 10/17/19 06:00 Pulse Rate 118 H 10/17/19 08:25 Respiratory Rate 24 H 10/17/19 08:25 Blood Pressure 145/107 H 10/17/19 06:00 O2 Sat by Pulse Oximetry (%) 96 10/17/19 08:25 Cardiovascular: Yes: Pulse Irregular Respiratory: Yes: Mechanically Ventilated Gastrointestinal: Yes: Normal Bowel Sounds, Soft, Abdomen, Obese Edema: Yes Edema: LLE: Trace, RLE: Trace Labs: CBC, BMP 10/17/19 06:00 10/17/19 06:00 Active Medications Amino Acids (Prosource No Carb Liquid Pkt) 30 ml PO BID@0800,1730 [facility] Last Admin: 10/17/19 09:11 Dose: 30 ml Documented by: Apixaban (Eliquis -) 5 mg NGT BID [facility] Last Admin: 10/17/19 09:13 Dose: 5 mg Documented by: Atorvastatin Calcium (Lipitor -) 40 mg PO HS [facility] Last Admin: 10/16/19 21:46 Dose: 40 mg Documented by: Chlorhexidine Gluconate (Hibiclens For Decolonization -) 1 applic TP [facility] Last Admin: 10/16/19 21:46 Dose: 1 applic Documented by: Chlorhexidine Gluconate (Peridex -) 15 ml MM BID [facility] Last Admin: 10/17/19 09:13 Dose: 15 ml Documented by: Diltiazem HCl (Cardizem -) 90 mg PO Q6HPO [facility] Last Admin: 10/17/19 06:30 Dose: 90 mg Documented by: Furosemide (Lasix Injection -) 40 mg IVPUSH BID@0600,1400 [facility] Last Admin: 10/17/19 06:30 Dose: 40 mg Documented by: Vancomycin HCl (Vancomycin (Pre-Docked)) 1,000 mg in 250 mls @ 200 mls/hr IVPB Q24H [facility]; Protocol Last Admin: 10/16/19 11:46 Dose: 200 mls/hr Documented by: Meropenem 1 gm/ Dextrose 100 mls @ 200 mls/hr IVPB Q8H-IV [facility] Last Admin: 10/17/19 09:13 Dose: 200 mls/hr Documented by: Dexmedetomidine/Sodium Chloride (Precedex 400 Mcg/100 Ml Inject) 400 mcg in 100 mls @ 6.409 mls/hr IVPB TITR [facility] Last Infusion: 10/17/19 07:02 Dose: 0.5 mcg/kg/hr, 16.023 mls/hr Documented by: Insulin Aspart (Novolog Vial Sliding Scale -) 1 vial SQ TIDAC [facility]; Protocol Metoprolol Tartrate (Lopressor Injection -) 5 mg IVPUSH Q4H PRN PRN Reason: HYPERTENSION Last Admin: 10/16/19 20:21 Dose: 5 mg Documented by: Metoprolol Tartrate (Lopressor -) 50 mg PO BID [facility] Last Admin: 10/17/19 09:13 Dose: 50 mg Documented by: Morphine Sulfate (Morphine Sulfate) 4 mg IVPUSH Q4H PRN PRN Reason: PAIN LEVEL 6-10 Last Admin: 10/17/19 06:00 Dose: 4 mg Documented by: Pantoprazole Sodium (Protonix Iv) 40 mg IVPUSH DAILY [facility] Last Admin: 10/17/19 09:13 Dose: 40 mg Documented by: Polyethylene Glycol (Miralax (For Daily Use) -) 17 gm NGT HS@2100 [facility] Last Admin: 10/16/19 21:46 Dose: 17 gm Documented by: Scopolamine HBr (Transderm-Scop -) 1 patch TD Q72H [facility] Last Admin: 10/14/19 21:30 Dose: 1 patch Documented by: - ....Imaging Chest X-ray: Report Reviewed (Bilateral congestion) Problem List - Problems (1) Acute respiratory failure with hypoxia and hypercapnia Code(s): J96.01 - ACUTE RESPIRATORY FAILURE WITH HYPOXIA; J96.02 - ACUTE RESPIRATORY FAILURE WITH HYPERCAPNIA (2) Acute decompensated heart failure Code(s): I50.9 - HEART FAILURE, UNSPECIFIED (3) Acute hypercapnic respiratory failure due to obstructive sleep apnea Code(s): J96.02 - ACUTE RESPIRATORY FAILURE WITH HYPERCAPNIA; G47.33 - OBSTRUCTIVE SLEEP APNEA (ADULT) (PEDIATRIC) (4) Atrial fibrillation and flutter Code(s): I48.91 - UNSPECIFIED ATRIAL FIBRILLATION; I48.92 - UNSPECIFIED ATRIAL FLUTTER (5) Sarcoidosis of other sites Code(s): D86.89 - SARCOIDOSIS OF OTHER SITES (6) Sleep apnea Code(s): G47.30 - SLEEP APNEA, UNSPECIFIED Qualifiers: Sleep apnea type: obstructive Qualified Code(s): G47.33 - Obstructive sleep apnea (adult) (pediatric) (7) Type 2 diabetes mellitus Code(s): E11.9 - TYPE 2 DIABETES MELLITUS WITHOUT COMPLICATIONS Qualifiers: Diabetes mellitus extermination supervisor insulin use: without extermination supervisor use Diabetes mellitus complication detail: with chronic kidney disease Chronic kidney disease stage: stage 2 (mild) Assessment/Plan 05/01/2019 Normal LV and RV size and fxn, tr TR 03/14/2019 Normal LV size and fxn, no thrombus ADEEL, mild-mod dilated and HK RV, tr MR, mild-mod TR, tr OH, trace pericardial effusion 1. Acute hypoxic and hypercapneic respiratory failure s/p tracheostomy on mechanical ventilation 2. Pneumonia, post septic shock and ARDS 3. Sarcoidosis confirmed by skin biopsy 4. OSAS/OHS 5. Persistent Atrial flutter/AF rate-controlled 6. Acute on chronic diastolic heart failure 7. Acute on CKD with hyperkalemia 8. Type 2 DM 9. Anemia 10. History of COVID 19 PLAN: 1. Vent per critical care 2. IV diuresis as needed with monitoring diuretic response, renal function and electrolytes 3. Rate-control with oral Cardizem 90 mg mg QID ,Torol 50 mg BID, IV Lopressor/Cardizem as needed. Cont Eliquis 5 bid , Lipitor 40 qd 4. Hold lisinopril 10 mg QD pending hemodynamic and renal stability 5. Follow up with Dr. Genaro Davila (cardiology at [place]) as outpatient. C onsider cardiac PET or MRI to exclude cardiac involvement in sarcoidosis as outpatient
[2019-10-17] MEDS: VANCOMYCIN 1 GRAM (PRE-DOCKED) 1,000 MG/250 ML BAG IVPB SCH (11:10)
[2019-10-17] MEDS: INSULIN SLIDING SCALE (NOVOLOG) 1 VIAL SQ SCH ×2 (11:27→16:10)
--- NOTE | 2019-10-17 12:52 | PN ---
Teaching Attending Note Name of Resident: Emmanuel Cheek ATTENDING PHYSICIAN STATEMENT I saw and evaluated the patient. I reviewed the resident's note and discussed the case with the resident. I agree with the resident's findings and plan as documented. SUBJECTIVE: Patient seen and examined in the ICU. Vented via Trach, arousable. Remains off pressors. OBJECTIVE: Intake & Output 10/14/19 10/15/19 10/16/19 10/17/19 23:59 23:59 23:59 23:59 Intake Total 1238.7 1115.0 1117 Output Total 1425 3960 1450 1400 Balance -186.3 -2845.0 -333 -1400 Weight 275 lb 4.8 oz 282 lb 9.6 oz 284 lb 13.396 oz Last Vital Signs Temp Pulse Resp BP Pulse Ox 98.3 F 116 H 33 H 138/78 98 10/17/19 06:00 10/17/19 12:00 10/17/19 12:00 10/17/19 12:00 10/17/19 11:27 Active Medications Amino Acids (Prosource No Carb Liquid Pkt) 30 ml PO BID@0800,1730 [facility] Last Admin: 10/17/19 09:11 Dose: 30 ml Documented by: Apixaban (Eliquis -) 5 mg NGT BID [facility] Last Admin: 10/17/19 09:13 Dose: 5 mg Documented by: Atorvastatin Calcium (Lipitor -) 40 mg PO [facility] Last Admin: 10/16/19 21:46 Dose: 40 mg Documented by: Chlorhexidine Gluconate (Hibiclens For Decolonization -) 1 applic TP HS [facility] Last Admin: 10/16/19 21:46 Dose: 1 applic Documented by: Chlorhexidine Gluconate (Peridex -) 15 ml MM BID [facility] Last Admin: 10/17/19 09:13 Dose: 15 ml Documented by: Diltiazem HCl (Cardizem -) 90 mg PO Q6HPO [facility] Last Admin: 10/17/19 11:37 Dose: 90 mg Documented by: Furosemide (Lasix Injection -) 40 mg IVPUSH BID@0600,1400 [facility] Last Admin: 10/17/19 06:30 Dose: 40 mg Documented by: Vancomycin HCl (Vancomycin (Pre-Docked)) 1,000 mg in 250 mls @ 200 mls/hr IVPB Q24H [facility]; Protocol Last Admin: 10/17/19 11:10 Dose: 200 mls/hr Documented by: Meropenem 1 gm/ Dextrose 100 mls @ 200 mls/hr IVPB Q8H-IV [facility] Last Admin: 10/17/19 09:13 Dose: 200 mls/hr Documented by: Dexmedetomidine/Sodium Chloride (Precedex 400 Mcg/100 Ml Inject) 400 mcg in 100 mls @ 6.409 mls/hr IVPB TITR [facility] Last Infusion: 10/17/19 07:02 Dose: 0.5 mcg/kg/hr, 16.023 mls/hr Documented by: Insulin Aspart (Novolog Vial Sliding Scale -) 1 vial SQ TIDAC [facility]; Protocol Last Admin: 10/17/19 11:27 Dose: 6 units Documented by: Metoprolol Tartrate (Lopressor Injection -) 5 mg IVPUSH Q4H PRN PRN Reason: HYPERTENSION Last Admin: 10/16/19 20:21 Dose: 5 mg Documented by: Metoprolol Tartrate (Lopressor -) 50 mg PO BID [facility] Last Admin: 10/17/19 09:13 Dose: 50 mg Documented by: Morphine Sulfate (Morphine Sulfate) 4 mg IVPUSH Q4H PRN PRN Reason: PAIN LEVEL 6-10 Last Admin: 10/17/19 06:00 Dose: 4 mg Documented by: Pantoprazole Sodium (Protonix Iv) 40 mg IVPUSH DAILY [facility] Last Admin: 10/17/19 09:13 Dose: 40 mg Documented by: Polyethylene Glycol (Miralax (For Daily Use) -) 17 gm NGT HS@2100 [facility] Last Admin: 10/16/19 21:46 Dose: 17 gm Documented by: Scopolamine HBr (Transderm-Scop -) 1 patch TD Q72H [facility] Last Admin: 10/14/19 21:30 Dose: 1 patch Documented by: Gen: Vented, awake Heart: RRR Lung: scattered rhonchi Abd: soft, nontender Ext: no edema Laboratory Results - last 24 hr 10/17/19 10/17/19 10/17/19 06:00 06:00 11:25 WBC 11.8 H RBC 3.64 L Hgb 8.9 L Hct 28.5 L MCV 78.2 L MCH 24.3 L MCHC 31.1 L RDW 18.4 H Plt Count 410 MPV 8.2 Sodium 137 Potassium 3.8 Chloride 97 L Carbon Dioxide 35 H Anion Gap 5 L BUN 19.5 H Creatinine 0.7 Est GFR (CKD-EPI)AfAm 126.64 Est GFR (CKD-EPI)NonAf 109.27 POC Glucometer 252 Random Glucose 235 H Calcium 8.5 Phosphorus 3.0 Magnesium 1.6 L Total Bilirubin 0.5 AST 25 ALT 28 Alkaline Phosphatase 161 H Total Protein 5.2 L Albumin 1.9 L ASSESSMENT AND PLAN: Acute Hypoxic and Hypercapneic Respiratory Failure UTI Pneumonia ARDS Septic Shock Acute on Chronic Diastolic Heart Failure Volume Overload Atrial Fibrillation/Flutter with RVR h/o COVID19 Sarcoidosis Morbid Obesity EMMY/OHS Anemia - continue antibiotics per ID - rate control - continue anticoagulation - Daily assessment for lasix - monitor urine output, creatinine - continue volume assist control - taper FiO2, PEEP to keep SpO2 >90% - spontaneous breathing trials when oxygen requirements improve - enteral feeds - DVT/GI prophylaxis - Vent floor Dr Maya
--- NOTE | 2019-10-17 13:22 | PN ---
Progress Note (short form) - Note Progress Note: TRANSFER NOTE Subjective Patient seen and examined in ICU this morning. Currently off sedation and off pressors. Pt tolerating decreased FiO2 today. Ventilated on volume-assist control. Vent: RR 18, TV 390, FiO2 60, PEEP 10 Objective GENERAL: The patient is sedated and intubated. HEAD: NCAT LUNGS: Breath sounds from ventilator equal, rhonchi present bilaterally, no wheezes or crackles. HEART: Regular rate and irregular rhythm; S1, S2 normal without murmur, rub or gallop. ABDOMEN: soft, non tender, mildly distended abdomen; BS heard in all four quadrants EXTREMITIES: 2+ pulses, warm, well-perfused, decreased edema in lower extremities (1+) NEUROLOGICAL: Pt arousable to stimulation; Unable to further assess neurological status SKIN: Warm, normal turgor, no rashes or lesions noted Hospital Course 53 yo M PMHx dDHF, afib/flutter on eliquis, sarcoidosis, guillan barre, morbid obesity, tracheostomy with reversal (during COVID hospitalization) who was admitted to the ICU for acute on chronic hypercapnic hypoxic respiratory failure 2/2 to CHF. Required intubation and pressors upon admission. Infectious Disease, Cardiology, and thoracic surgery were consulted during the admission. Pt joseline nues to be on IV abx for suspected pneumonia (Sputum Cx MRSA+, EColi ESBL+) and UTI (Enterobacter+). Pt diuresed with Lasix during admission for decompensated CHF. Pt's ventilator settings improved but he was unable to be weaned off of the ventilator. He received a tracheostomy on 10/14/2019 and sedation was discontinued. Pt has been stable on volume-assist control. His mental status is improvement as pt is arousable to stimulation and responding to commmands. Tube feeds have been restarted and electrolytes were repleted. Pt optimized for transfer to telemetry floor.
[2019-10-17] MEDS: METOPROLOL TARTRATE 5 MG/5 ML VIAL IVPUSH PRN ×2 (17:42→22:25)
--- NOTE | 2019-10-17 20:29 | PN ---
Progress Note, Physician History of Present Illness: S/P TRACH NO ACUTE DISTRESS AFEBRILE WBC WNL BC NO GROWTH URINE C/S (R) ENTEROBACTER SPUTUM ESBL, MRSA CXR B/L CONGESTION - Current Medication List Current Medications: Active Medications Amino Acids (Prosource No Carb Liquid Pkt) 30 ml PO BID@0800,1730 [facility] Last Admin: 10/17/19 17:13 Dose: 30 ml Documented by: Apixaban (Eliquis -) 5 mg NGT BID [facility] Last Admin: 10/17/19 09:13 Dose: 5 mg Documented by: Atorvastatin Calcium (Lipitor -) 40 mg PO [facility] Last Admin: 10/16/19 21:46 Dose: 40 mg Documented by: Chlorhexidine Gluconate (Hibiclens For Decolonization -) 1 applic TP [facility] Last Admin: 10/16/19 21:46 Dose: 1 applic Documented by: Chlorhexidine Gluconate (Peridex -) 15 ml MM BID [facility] Last Admin: 10/17/19 09:13 Dose: 15 ml Documented by: Diltiazem HCl (Cardizem -) 90 mg PO Q6HPO [facility] Last Admin: 10/17/19 17:13 Dose: 90 mg Documented by: Furosemide (Lasix Injection -) 40 mg IVPUSH BID@0600,1400 [facility] Last Admin: 10/17/19 13:40 Dose: 40 mg Documented by: Vancomycin HCl (Vancomycin (Pre-Docked)) 1,000 mg in 250 mls @ 200 mls/hr IVPB Q24H [facility]; Protocol Last Admin: 10/17/19 11:10 Dose: 200 mls/hr Documented by: Dexmedetomidine/Sodium Chloride (Precedex 400 Mcg/100 Ml Inject) 400 mcg in 100 mls @ 6.409 mls/hr IVPB TITR [facility] Last Infusion: 10/17/19 07:02 Dose: 0.5 mcg/kg/hr, 16.023 mls/hr Documented by: Insulin Aspart (Novolog Vial Sliding Scale -) 1 vial SQ TIDAC [facility]; Protocol Last Admin: 10/17/19 16:10 Dose: 6 units Documented by: Metoprolol Tartrate (Lopressor Injection -) 5 mg IVPUSH Q4H PRN PRN Reason: HYPERTENSION Last Admin: 10/17/19 17:42 Dose: 5 mg Documented by: Metoprolol Tartrate (Lopressor -) 50 mg PO BID [facility] Last Admin: 10/17/19 09:13 Dose: 50 mg Documented by: Morphine Sulfate (Morphine Sulfate) 4 mg IVPUSH Q4H PRN PRN Reason: PAIN LEVEL 6-10 Last Admin: 10/17/19 20:16 Dose: 4 mg Documented by: Pantoprazole Sodium (Protonix Iv) 40 mg IVPUSH DAILY [facility] Last Admin: 10/17/19 09:13 Dose: 40 mg Documented by: Polyethylene Glycol (Miralax (For Daily Use) -) 17 gm NGT HS@2100 [facility] Last Admin: 10/16/19 21:46 Dose: 17 gm Documented by: Scopolamine HBr (Transderm-Scop -) 1 patch TD Q72H [facility] Last Admin: 10/14/19 21:30 Dose: 1 patch Documented by: - Objective Vital Signs: Vital Signs Temperature 98.6 F 10/17/19 12:00 Pulse Rate 123 H 10/17/19 19:12 Respiratory Rate 22 H 10/17/19 19:12 Blood Pressure 159/96 10/17/19 19:12 O2 Sat by Pulse Oximetry (%) 99 10/17/19 16:05 Constitutional: Yes: No Distress, Obese Cardiovascular: Yes: Regular Rate and Rhythm, S1, S2 Respiratory: Yes: Mechanically Ventilated Gastrointestinal: Yes: Normal Bowel Sounds, Soft Edema: Yes Labs: CBC, BMP 10/17/19 06:00 10/17/19 06:00 INR, PTT INR 1.18 (0.83-1.09) H 10/14/19 05:30 Assessment/Plan ACUTE RESP FAILURE + SPUTUM MRSA, ESBL PNEUMONIA SEPSIS R/O SEPTIC SHOCK UTI S/P CARDIOPULMONARY ARREST DISCONTINUE MEROPENEM/VANCOMYCIN OBSERVE OFF ANTIBIOTICS VENTILATORY/ HEMODYNAMIC SUPPORT CONTACT PRECAUTIONS
[2019-10-17] MEDS: SCOPOLAMINE HYDROBROMIDE 1 PATCH PATCH.TD72 TD SCH (21:10)
[2019-10-17] MEDS: POLYETHYLENE GLYCOL 3350 119 GM BTL NGT SCH (21:10)
[2019-10-17] MEDS: ATORVASTATIN CA 40 MG TABLET (FP) PO SCH (21:10)
[2019-10-17] MEDS: CHLORHEXIDINE GLUCONATE 4% CLEANSER FOR DECOLONIZATION TP SCH (21:11)
[2019-10-17] MEDS: FENTANYL NS IVPB 500 MCG/100 ML BAG IVPB SCH (22:02)
[2019-10-18] MEDS: FUROSEMIDE 40 MG/4 ML INJECTABLE VIAL IVPUSH SCH ×2 (05:40→13:04)
[2019-10-18] MEDS: dilTIAZem HCL 60 MG TABLET PO SCH ×3 (05:40→17:18)
[2019-10-18] MEDS: INSULIN SLIDING SCALE (NOVOLOG) 1 VIAL SQ SCH ×3 (06:12→17:17)
[2019-10-18] MEDS: AMINO ACIDS/PROTEIN HYDROLYS 30 ML LIQUID.PKT PO SCH ×2 (08:25→17:17)
[2019-10-18] MEDS: APIXABAN 5 MG TABLET NGT SCH ×2 (09:10→21:03)
[2019-10-18] MEDS: PANTOPRAZOLE SODIUM 40 MG VIAL IVPUSH SCH (09:10)
[2019-10-18] MEDS: METOPROLOL TARTRATE 25 MG TABLET (FP) PO SCH ×2 (09:10→21:03)
[2019-10-18] MEDS: CHLORHEXIDINE GLUCONATE 0.12% 15ML CUP MM SCH ×2 (09:10→21:03)
--- NOTE | 2019-10-18 11:17 | PN ---
Progress Note (short form) - Note Progress Note: No acute cardiac events; AFL 80 bpm VR ' Vital Signs Temperature 98.7 F 10/18/19 06:00 Pulse Rate 102 H 10/18/19 10:10 Respiratory Rate 24 H 10/18/19 10:10 Blood Pressure 135/97 10/18/19 10:10 O2 Sat by Pulse Oximetry (%) 93 L 10/18/19 09:00 Cardiovascular: Yes: Pulse Irregular Respiratory: Yes: Mechanically Ventilated Gastrointestinal: Yes: Normal Bowel Sounds, Soft, Abdomen, Obese Edema: Yes Edema: LLE: Trace, RLE: Trace Labs: CBC, BMP 10/17/19 06:00 10/17/19 06:00 Active Medications Amino Acids (Prosource No Carb Liquid Pkt) 30 ml PO BID@0800,1730 [facility] Last Admin: 10/18/19 08:25 Dose: 30 ml Documented by: Apixaban (Eliquis -) 5 mg NGT BID [facility] Last Admin: 10/18/19 09:10 Dose: 5 mg Documented by: Atorvastatin Calcium (Lipitor -) 40 mg PO HS [facility] Last Admin: 10/17/19 21:10 Dose: 40 mg Documented by: Chlorhexidine Gluconate (Hibiclens For Decolonization -) 1 applic TP [facility] Last Admin: 10/17/19 21:11 Dose: 1 applic Documented by: Chlorhexidine Gluconate (Peridex -) 15 ml MM BID [facility] Last Admin: 10/18/19 09:10 Dose: 15 ml Documented by: Diltiazem HCl (Cardizem -) 90 mg PO Q6HPO [facility] Last Admin: 10/18/19 05:40 Dose: 90 mg Documented by: Furosemide (Lasix Injection -) 40 mg IVPUSH BID@0600,1400 [facility] Last Admin: 10/18/19 05:40 Dose: 40 mg Documented by: Dexmedetomidine/Sodium Chloride (Precedex 400 Mcg/100 Ml Inject) 400 mcg in 100 mls @ 6.409 mls/hr IVPB TITR [facility] Last Infusion: 10/18/19 03:12 Dose: 0.2 mcg/kg/hr, 6.409 mls/hr Documented by: Fentanyl (Sublimaze Ivpb) 500 mcg in 100 mls @ 25.84 mls/hr IVPB TITR [facility]; Protocol Last Titration: 10/18/19 02:47 Dose: 0.39 mcg/kg/hr, 10 mls/hr Documented by: Insulin Aspart (Novolog Vial Sliding Scale -) 1 vial SQ TIDAC [facility]; Protocol Last Admin: 10/18/19 06:12 Dose: 6 units Documented by: Metoprolol Tartrate (Lopressor Injection -) 5 mg IVPUSH Q4H PRN PRN Reason: HYPERTENSION Last Admin: 10/17/19 22:25 Dose: 5 mg Documented by: Metoprolol Tartrate (Lopressor -) 50 mg PO BID [facility] Last Admin: 10/18/19 09:10 Dose: 50 mg Documented by: Morphine Sulfate (Morphine Sulfate) 4 mg IVPUSH Q4H PRN PRN Reason: PAIN LEVEL 6-10 Last Admin: 10/17/19 20:16 Dose: 4 mg Documented by: Pantoprazole Sodium (Protonix Iv) 40 mg IVPUSH DAILY [facility] Last Admin: 10/18/19 09:10 Dose: 40 mg Documented by: Polyethylene Glycol (Miralax (For Daily Use) -) 17 gm NGT HS@2100 [facility] Last Admin: 10/17/19 21:10 Dose: 17 gm Documented by: Scopolamine HBr (Transderm-Scop -) 1 patch TD Q72H [facility] Last Admin: 10/17/19 21:10 Dose: 1 patch Documented by: - ....Imaging Chest X-ray: Report Reviewed (Bilateral congestion) Problem List - Problems (1) Acute respiratory failure with hypoxia and hypercapnia Code(s): J96.01 - ACUTE RESPIRATORY FAILURE WITH HYPOXIA; J96.02 - ACUTE RESPIRATORY FAILURE WITH HYPERCAPNIA (2) Acute decompensated heart failure Code(s): I50.9 - HEART FAILURE, UNSPECIFIED (3) Acute hypercapnic respiratory failure due to obstructive sleep apnea Code(s): J96.02 - ACUTE RESPIRATORY FAILURE WITH HYPERCAPNIA; G47.33 - OBSTRU CTIVE SLEEP APNEA (ADULT) (PEDIATRIC) (4) Atrial fibrillation and flutter Code(s): I48.91 - UNSPECIFIED ATRIAL FIBRILLATION; I48.92 - UNSPECIFIED ATRIAL FLUTTER (5) Sarcoidosis of other sites Code(s): D86.89 - SARCOIDOSIS OF OTHER SITES (6) Sleep apnea Code(s): G47.30 - SLEEP APNEA, UNSPECIFIED Qualifiers: Sleep apnea type: obstructive Qualified Code(s): G47.33 - Obstructive sleep apnea (adult) (pediatric) (7) Type 2 diabetes mellitus Code(s): E11.9 - TYPE 2 DIABETES MELLITUS WITHOUT COMPLICATIONS Qualifiers: Diabetes mellitus buttermaker continuous churn insulin use: without buttermaker continuous churn use Diabetes mellitus complication detail: with chronic kidney disease Chronic kidney disease stage: stage 2 (mild) Assessment/Plan 05/01/2019 Normal LV and RV size and fxn, tr TR 03/14/2019 Normal LV size and fxn, no thrombus ADEEL, mild-mod dilated and HK RV, tr MR, mild-mod TR, tr ID, trace pericardial effusion 1. Acute hypoxic and hypercapneic respiratory failure s/p tracheostomy on mechanical ventilation 2. Pneumonia, post septic shock and ARDS 3. Sarcoidosis confirmed by skin biopsy 4. OSAS/OHS 5. Persistent Atrial flutter/AF rate-controlled 6. Acute on chronic diastolic heart failure 7. Acute on CKD with hyperkalemia 8. Type 2 DM 9. Anemia 10. History of COVID 19 PLAN: Cardiacwise same: 1. Vent per critical care 2. IV diuresis as needed with monitoring diuretic response, renal function and electrolytes 3. Rate-control with oral Cardizem 90 mg mg QID ,Torol 50 mg BID, IV Lopressor/Cardizem as needed. Cont Eliquis 5 bid , Lipitor 40 qd 4. Hold lisinopril 10 mg QD pending hemodynamic and renal stability 5. Follow up with Dr. Genaro Davila (cardiology at [place]) as outpatient. Consider cardiac PET or MRI to exclude cardiac involvement in sarcoidosis as outpatient
--- NOTE | 2019-10-18 11:30 | PN ---
Progress Note (short form) - Note Progress Note: Seen and examined in the ICU Remains on vent via trach ACVC: 16/390/60+10 Had desaturation overnight 2/2 mucus plugging TLC d/c'd ABX stopped received lasix for O>I Awaiting floor bed Active Medications Amino Acids (Prosource No Carb Liquid Pkt) 30 ml PO BID@0800,1730 [facility] Last Admin: 10/18/19 08:25 Dose: 30 ml Documented by: Apixaban (Eliquis -) 5 mg NGT BID [facility] Last Admin: 10/18/19 09:10 Dose: 5 mg Documented by: Atorvastatin Calcium (Lipitor -) 40 mg PO [facility] Last Admin: 10/17/19 21:10 Dose: 40 mg Documented by: Chlorhexidine Gluconate (Hibiclens For Decolonization -) 1 applic TP [facility] Last Admin: 10/17/19 21:11 Dose: 1 applic Documented by: Chlorhexidine Gluconate (Peridex -) 15 ml MM BID [facility] Last Admin: 10/18/19 09:10 Dose: 15 ml Documented by: Diltiazem HCl (Cardizem -) 90 mg PO Q6HPO [facility] Last Admin: 10/18/19 05:40 Dose: 90 mg Documented by: Furosemide (Lasix Injection -) 40 mg IVPUSH BID@0600,1400 [facility] Last Admin: 10/18/19 05:40 Dose: 40 mg Documented by: Dexmedetomidine/Sodium Chloride (Precedex 400 Mcg/100 Ml Inject) 400 mcg in 100 mls @ 6.409 mls/hr IVPB TITR [facility] Last Infusion: 10/18/19 03:12 Dose: 0.2 mcg/kg/hr, 6.409 mls/hr Documented by: Fentanyl (Sublimaze Ivpb) 500 mcg in 100 mls @ 25.84 mls/hr IVPB TITR [facility]; Protocol Last Titration: 10/18/19 02:47 Dose: 0.39 mcg/kg/hr, 10 mls/hr Documented by: Insulin Aspart (Novolog Vial Sliding Scale -) 1 vial SQ TIDAC [facility]; Protocol Last Admin: 10/18/19 06:12 Dose: 6 units Documented by: Metoprolol Tartrate (Lopressor Injection -) 5 mg IVPUSH Q4H PRN PRN Reason: HYPERTENSION Last Admin: 10/17/19 22:25 Dose: 5 mg Documented by: Metoprolol Tartrate (Lopressor -) 50 mg PO BID [facility] Last Admin: 10/18/19 09:10 Dose: 50 mg Documented by: Morphine Sulfate (Morphine Sulfate) 4 mg IVPUSH Q4H PRN PRN Reason: PAIN LEVEL 6-10 Last Admin: 10/17/19 20:16 Dose: 4 mg Documented by: Pantoprazole Sodium (Protonix Iv) 40 mg IVPUSH DAILY [facility] Last Admin: 10/18/19 09:10 Dose: 40 mg Documented by: Polyethylene Glycol (Miralax (For Daily Use) -) 17 gm NGT HS@2100 [facility] Last Admin: 10/17/19 21:10 Dose: 17 gm Documented by: Scopolamine HBr (Transderm-Scop -) 1 patch TD Q72H [facility] Last Admin: 10/17/19 21:10 Dose: 1 patch Documented by: Vital Signs Period Temp Pulse Resp BP Sys/[place] Pulse Ox Last 24 Hr 97.9 F-98.7 F 102-136 18-40 113-182/54-105 93-100 Intake & Output 10/15/19 10/16/19 10/17/19 10/18/19 23:59 23:59 23:59 23:59 Intake Total 1115.0 1117 1560 440 Output Total 3960 1450 3500 1900 Balance -2845.0 -333 -1940 -1460 Weight 128.185 kg 129.2 kg 122.152 kg Exam: General: trach on vent w/o distress Neuro: awake, following simple commands, able to lift arm against gravity CV: flutter 1:4/1:3 Pulm: diminshed w/ crackles in bases Abd: SNTND +BS Ext: +3 edema upper and lower CBC, BMP 10/17/19 06:00 10/17/19 06:00 ASSESSMENT AND PLAN: Acute Hypoxic and Hypercapneic Respiratory Failure UTI Pneumonia ARDS Septic Shock Acute on Chronic Diastolic Heart Failure Volume Overload Atrial Fibrillation/Flutter with RVR h/o COVID19 Sarcoidosis Morbid Obesity EMMY/OHS Anemia - continue antibiotics per ID - rate control - continue anticoagulation - Cont lasix - monitor urine output, creatinine - continue volume assist control - taper FiO2, PEEP to keep SpO2 >90% - spontaneous breathing trials when oxygen requirements improve - enteral feeds, will need PEGplacement prior to d/c to [place] - DVT/GI prophylaxis - awaiting bed on Vent floor Geovanna ACNP Pulm/CCM [id number]
[2019-10-18 18:53] LABS: HEMATOCRIT 29.4 % (35.4-49); HEMOGLOBIN 9.4 GM/dL (11.7-16.9); MCH 25.4 pg (25.7-33.7); MCHC 32.1 g/dl (32.0-35.9); MEAN PLT VOLUME 7.9 fl (7.5-11.1); PLATELET COUNT 382 K/MM3 (134-434); RBC 3.72 M/mm3 (4.00-5.60); RDW 18.2 % (11.9-15.9); WHITE BLOOD COUNT 10.6 K/mm3 (4.0-10.0)
[2019-10-18 19:22] LABS: BILIRUBIN,TOTAL 0.7 mg/dL (0.2-1); BLOOD UREA NITROGEN 22.5 mg/dL (7-18); CALCIUM 8.4 mg/dL (8.5-10.1); CREATININE 0.7 mg/dL (0.55-1.3); MAGNESIUM 1.4 mg/dL (1.8-2.4); PHOSPHOROUS 3.1 mg/dL (2.5-4.9); POTASSIUM 3.4 mmol/L (3.5-5.1); TOT PROT 5.2 g/dl (6.4-8.2)
[2019-10-18] MEDS ORDERED: POTASSIUM CHLORIDE ORAL LIQUID 20 MEQ/15 ML PO ONE (20:18)
[2019-10-18] MEDS: FENTANYL NS IVPB 500 MCG/100 ML BAG IVPB SCH (20:29)
[2019-10-18] MEDS: ATORVASTATIN CA 40 MG TABLET (FP) PO SCH (21:03)
[2019-10-18] MEDS: CHLORHEXIDINE GLUCONATE 4% CLEANSER FOR DECOLONIZATION TP SCH (21:05)
[2019-10-18] MEDS: POLYETHYLENE GLYCOL 3350 119 GM BTL NGT SCH (21:05)
[2019-10-19] MEDS: dilTIAZem HCL 60 MG TABLET PO SCH ×4 (00:20→18:11)
[2019-10-19] MEDS: METOPROLOL TARTRATE 5 MG/5 ML VIAL IVPUSH PRN ×3 (04:36→21:44)
[2019-10-19] MEDS: FUROSEMIDE 40 MG/4 ML INJECTABLE VIAL IVPUSH SCH ×2 (05:50→14:52)
[2019-10-19] MEDS: INSULIN SLIDING SCALE (NOVOLOG) 1 VIAL SQ SCH ×3 (06:05→18:10)
--- NOTE | 2019-10-19 07:29 | PN ---
Progress Note (short form) - Note Progress Note: Progress Note: Seen and examined in the ICU, no event over night Remains on vent via trach ACVC: 18/390/60+10 Up for tx to 5S Active Medications Amino Acids (Prosource No Carb Liquid Pkt) 30 ml PO BID@0800,1730 [facility] Last Admin: 10/18/19 17:17 Dose: 30 ml Documented by: Apixaban (Eliquis -) 5 mg NGT BID [facility] Last Admin: 10/18/19 21:03 Dose: 5 mg Documented by: Atorvastatin Calcium (Lipitor -) 40 mg PO [facility] Last Admin: 10/18/19 21:03 Dose: 40 mg Documented by: Chlorhexidine Gluconate (Hibiclens For Decolonization -) 1 applic TP [facility] Last Admin: 10/18/19 21:05 Dose: 1 applic Documented by: Chlorhexidine Gluconate (Peridex -) 15 ml MM BID [facility] Last Admin: 10/18/19 21:03 Dose: 15 ml Documented by: Diltiazem HCl (Cardizem -) 90 mg PO Q6HPO [facility] Last Admin: 10/19/19 05:50 Dose: 90 mg Documented by: Fentanyl (Duragesic 25mcg Patch -) 1 patch TD Q72H [facility] Stop: 10/26/19 08:18 Furosemide (Lasix Injection -) 40 mg IVPUSH BID@0600,1400 [facility] Last Admin: 10/19/19 05:50 Dose: 40 mg Documented by: Insulin Aspart (Novolog Vial Sliding Scale -) 1 vial SQ TIDAC [facility]; Protocol Last Admin: 10/19/19 06:05 Dose: 4 units Documented by: Metoprolol Tartrate (Lopressor Injection -) 5 mg IVPUSH Q4H PRN PRN Reason: HYPERTENSION Last Admin: 10/19/19 04:36 Dose: 5 mg Documented by: Metoprolol Tartrate (Lopressor -) 50 mg PO BID [facility] Last Admin: 10/18/19 21:03 Dose: 50 mg Documented by: Miscellaneous (Duragesic Patch Waste) 1 each MC PRN PRN PRN Reason: PAIN Pantoprazole Sodium (Protonix Iv) 40 mg IVPUSH DAILY [facility] Last Admin: 10/18/19 09:10 Dose: 40 mg Documented by: Polyethylene Glycol (Miralax (For Daily Use) -) 17 gm NGT HS@2100 [facility] Last Admin: 10/18/19 21:05 Dose: 17 gm Documented by: Scopolamine HBr (Transderm-Scop -) 1 patch TD Q72H [facility] Last Admin: 10/17/19 21:10 Dose: 1 patch Documented by: Vital Signs Period Temp Pulse Resp BP Sys/[place] Pulse Ox Last 24 Hr 98.4 F-98.9 F 87-146 6-49 100-160/71-103 93-99 Intake & Output 10/16/19 10/17/19 10/18/19 10/19/19 23:59 23:59 23:59 23:59 Intake Total 1117 1560 1395.6 1167.6 Output Total 1450 3500 3200 400 Balance -333 -1940 -1804.4 767.6 Weight 129.2 kg 122.152 kg 122.334 kg Exam: General: trach on vent w/o distress Neuro: awake, following simple commands, able to lift arm against gravity CV: flutter 1:4/1:3 Pulm: diminshed w/ crackles in bases Abd: SNTND +BS Ext: +3 edema upper and lower CBC, BMP 10/17/19 06:00 10/17/19 06:00 ASSESSMENT AND PLAN: Acute Hypoxic and Hypercapneic Respiratory Failure UTI Pneumonia ARDS Septic Shock Acute on Chronic Diastolic Heart Failure Volume Overload Atrial Fibrillation/Flutter with RVR h/o COVID19 Sarcoidosis Morbid Obesity EMMY/OHS Anemia - Completed course abx - rate control - continue anticoagulation (Apixaban) - Cont lasix - monitor urine output, creatinine - continue volume assist control - taper FiO2, PEEP to keep SpO2 >90% - spontaneous breathing trials when oxygen requirements improve - enteral feeds, will need PEGplacement prior to d/c to [place] - Insulin coverage scale - DVT/GI prophylaxis - awaiting bed on Vent floor Sheree Callejas ACNP Pulm/CCM [id number]
[2019-10-19] MEDS ORDERED: FENTANYL PATCH WASTE TD PRN (08:18)
[2019-10-19] MEDS ORDERED: fentaNYL 25mcg/hr PATCH.TD72 TD SCH (08:30)
--- NOTE | 2019-10-19 08:53 | PN ---
Progress Note (short form) - Note Progress Note: No acute cardiac events; trache/vent; AFl 70/' ' Vital Signs Temperature 98.9 F 10/19/19 06:00 Pulse Rate 77 10/19/19 08:32 Respiratory Rate 19 10/19/19 08:32 Blood Pressure 135/83 10/19/19 06:00 O2 Sat by Pulse Oximetry (%) 94 L 10/19/19 08:32 Cardiovascular: Yes: Pulse Irregular Respiratory: Yes: Mechanically Ventilated Gastrointestinal: Yes: Normal Bowel Sounds, Soft, Abdomen, Obese Edema: Yes Edema: LLE: Trace, RLE: Trace Labs: CBC, BMP 10/18/19 18:28 10/18/19 18:28 Active Medications Amino Acids (Prosource No Carb Liquid Pkt) 30 ml PO BID@0800,1730 [facility] Last Admin: 10/18/19 08:25 Dose: 30 ml Documented by: Apixaban (Eliquis -) 5 mg NGT BID [facility] Last Admin: 10/18/19 09:10 Dose: 5 mg Documented by: Atorvastatin Calcium (Lipitor -) 40 mg PO HS [facility] Last Admin: 10/17/19 21:10 Dose: 40 mg Documented by: Chlorhexidine Gluconate (Hibiclens For Decolonization -) 1 applic TP [facility] Last Admin: 10/17/19 21:11 Dose: 1 applic Documented by: Chlorhexidine Gluconate (Peridex -) 15 ml MM BID [facility] Last Admin: 10/18/19 09:10 Dose: 15 ml Documented by: Diltiazem HCl (Cardizem -) 90 mg PO Q6HPO [facility] Last Admin: 10/18/19 05:40 Dose: 90 mg Documented by: Furosemide (Lasix Injection -) 40 mg IVPUSH BID@0600,1400 [facility] Last Admin: 10/18/19 05:40 Dose: 40 mg Documented by: Dexmedetomidine/Sodium Chloride (Precedex 400 Mcg/100 Ml Inject) 400 mcg in 100 mls @ 6.409 mls/hr IVPB TITR [facility] Last Infusion: 10/18/19 03:12 Dose: 0.2 mcg/kg/hr, 6.409 mls/hr Documented by: Fentanyl (Sublimaze Ivpb) 500 mcg in 100 mls @ 25.84 mls/hr IVPB TITR [facility]; Protocol Last Titration: 10/18/19 02:47 Dose: 0.39 mcg/kg/hr, 10 mls/hr Documented by: Insulin Aspart (Novolog Vial Sliding Scale -) 1 vial SQ TIDAC [facility]; Protocol Last Admin: 10/18/19 06:12 Dose: 6 units Documented by: Metoprolol Tartrate (Lopressor Injection -) 5 mg IVPUSH Q4H PRN PRN Reason: HYPERTENSION Last Admin: 10/17/19 22:25 Dose: 5 mg Documented by: Metoprolol Tartrate (Lopressor -) 50 mg PO BID [facility] Last Admin: 10/18/19 09:10 Dose: 50 mg Documented by: Morphine Sulfate (Morphine Sulfate) 4 mg IVPUSH Q4H PRN PRN Reason: PAIN LEVEL 6-10 Last Admin: 10/17/19 20:16 Dose: 4 mg Documented by: Pantoprazole Sodium (Protonix Iv) 40 mg IVPUSH DAILY [facility] Last Admin: 10/18/19 09:10 Dose: 40 mg Documented by: Polyethylene Glycol (Miralax (For Daily Use) -) 17 gm NGT HS@2100 [facility] Last Admin: 10/17/19 21:10 Dose: 17 gm Documented by: Scopolamine HBr (Transderm-Scop -) 1 patch TD Q72H [facility] Last Admin: 10/17/19 21:10 Dose: 1 patch Documented by: - ....Imaging Chest X-ray: Report Reviewed (Bilateral congestion) Problem List - Problems (1) Acute respiratory failure with hypoxia and hypercapnia Code(s): J96.01 - ACUTE RESPIRATORY FAILURE WITH HYPOXIA; J96.02 - ACUTE RESPIRATORY FAILURE WITH HYPERCAPNIA (2) Acute decompensated heart failure Code(s): I50.9 - HEART FAILURE, UNSPECIFIED (3) Acute hypercapnic respiratory failure due to obstructive sleep apnea Code(s): J96.02 - ACUTE RESPIRATORY FAILURE WITH HYPERCAPNIA; G47.33 - OBSTRUCTIVE SLEEP APNEA (ADULT) (PEDIATRIC) (4) Atrial fibrillation and flutter Code(s): I48.91 - UNSPECIFIED ATRIAL FIBRILLATION; I48.92 - UNSPECIFIED ATRIAL FLUTTER (5) Sarcoidosis of other sites Code(s): D86.89 - SARCOIDOSIS OF OTHER SITES (6) Sleep apnea Code(s): G47.30 - SLEEP APNEA, UNSPECIFIED Qualifiers: Sleep apnea type: obstructive Qualified Code(s): G47.33 - Obstructive sleep apnea (adult) (pediatric) (7) Type 2 diabetes mellitus Code(s): E11.9 - TYPE 2 DIABETES MELLITUS WITHOUT COMPLICATIONS Qualifiers: Diabetes mellitus 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 Acute hypoxic and hypercapneic respiratory failure s/p tracheostomy on mechanical ventilation 2. Pneumonia, post septic shock and ARDS 3. Sarcoidosis confirmed by skin biopsy 4. OSAS/OHS 5. Persistent Atrial flutter/AF rate-controlled 6. Acute on chronic diastolic heart failure 7. Acute on CKD with hyperkalemia 8. Type 2 DM 9. Anemia 10. History of COVID 19 PLAN: Cardiacwise same: 1. Vent per critical care 2. IV diuresis as needed with monitoring diuretic response, renal function and electrolytes 3. Rate-control with oral Cardizem 90 mg mg QID ,Torol 50 mg BID, IV Lopressor/Cardizem as needed. Cont Eliquis 5 bid , Lipitor 40 qd 4. Hold lisinopril 10 mg QD pending hemodynamic and renal stability 5. Follow up with Dr. Genaro Davila (cardiology at [place]) as outpatient. Consider cardiac PET or MRI to exclude cardiac involvement in sarcoidosis as outpatient
[2019-10-19] MEDS: AMINO ACIDS/PROTEIN HYDROLYS 30 ML LIQUID.PKT PO SCH ×2 (09:45→18:11)
[2019-10-19] MEDS: PANTOPRAZOLE SODIUM 40 MG VIAL IVPUSH SCH (10:46)
[2019-10-19] MEDS: APIXABAN 5 MG TABLET NGT SCH ×2 (10:46→21:45)
[2019-10-19] MEDS: CHLORHEXIDINE GLUCONATE 0.12% 15ML CUP MM SCH ×2 (10:46→21:44)
[2019-10-19] MEDS: METOPROLOL TARTRATE 25 MG TABLET (FP) PO SCH (10:46)
[2019-10-19 10:53] LABS: HEMOGLOBIN 9.3 GM/dL (11.7-16.9); MCH 24.5 pg (25.7-33.7); MCHC 31.1 g/dl (32.0-35.9); MEAN CELL VOLUME 78.7 fl (80-96); MEAN PLT VOLUME 7.7 fl (7.5-11.1); PLATELET COUNT 470 K/MM3 (134-434); RBC 3.81 M/mm3 (4.00-5.60); RDW 17.6 % (11.9-15.9); WHITE BLOOD COUNT 11.2 K/mm3 (4.0-10.0)
[2019-10-19 11:18] LABS: BLOOD UREA NITROGEN 23.1 mg/dL (7-18); CALCIUM 8.4 mg/dL (8.5-10.1); CREATININE 0.6 mg/dL (0.55-1.3); MAGNESIUM 1.5 mg/dL (1.8-2.4); PHOSPHOROUS 3.2 mg/dL (2.5-4.9); POTASSIUM 3.7 mmol/L (3.5-5.1)
[2019-10-19] MEDS ORDERED: dilTIAZem HCL 50 MG/10 ML - 10 ML VIAL IVPUSH ONE (16:42)
[2019-10-19] MEDS: METOPROLOL TARTRATE 50 MG TABLET (FP) PO SCH (21:45)
[2019-10-19] MEDS: CHLORHEXIDINE GLUCONATE 4% CLEANSER FOR DECOLONIZATION TP SCH (21:45)
[2019-10-19] MEDS: ATORVASTATIN CA 40 MG TABLET (FP) PO SCH (21:45)
[2019-10-19] MEDS: POLYETHYLENE GLYCOL 3350 119 GM BTL NGT SCH (21:46)
[2019-10-20] MEDS: dilTIAZem HCL 60 MG TABLET PO SCH ×4 (00:49→17:06)
[2019-10-20] MEDS: METOPROLOL TARTRATE 5 MG/5 ML VIAL IVPUSH PRN ×2 (05:48→09:46)
[2019-10-20] MEDS ORDERED: EPINEPHrine 1:10,000 (P-F SYR) 1 MG/10 ML DISP.SYRIN ONE (06:27)
[2019-10-20] MEDS: FUROSEMIDE 40 MG/4 ML INJECTABLE VIAL IVPUSH SCH ×2 (06:39→13:16)
[2019-10-20] MEDS: METOPROLOL TARTRATE 50 MG TABLET (FP) PO SCH ×3 (06:39→21:58)
[2019-10-20] MEDS: INSULIN SLIDING SCALE (NOVOLOG) 1 VIAL SQ SCH ×3 (06:43→17:07)
[2019-10-20 07:08] LABS: BASO % 0.8 % (0-2.0); EOS % 2.9 % (0-4.5); HEMATOCRIT 30.6 % (35.4-49); HEMOGLOBIN 9.5 GM/dL (11.7-16.9); LYMPH % 4.5 % (8-40); MCH 24.3 pg (25.7-33.7); MCHC 31.2 g/dl (32.0-35.9); MEAN PLT VOLUME 7.6 fl (7.5-11.1); NEUT % 83.8 % (42.8-82.8); PLATELET COUNT 451 K/MM3 (134-434); RBC 3.92 M/mm3 (4.00-5.60); RDW 18.3 % (11.9-15.9); WHITE BLOOD COUNT 9.2 K/mm3 (4.0-10.0)
[2019-10-20 07:34] LABS: ALBUMIN 2.3 g/dl (3.4-5.0); BILIRUBIN,TOTAL 0.8 mg/dL (0.2-1); BLOOD UREA NITROGEN 18.8 mg/dL (7-18); CALCIUM 8.8 mg/dL (8.5-10.1); CREATININE 0.6 mg/dL (0.55-1.3); MAGNESIUM 1.4 mg/dL (1.8-2.4); PHOSPHOROUS 3.6 mg/dL (2.5-4.9); POTASSIUM 3.4 mmol/L (3.5-5.1); TOT PROT 5.9 g/dl (6.4-8.2)
[2019-10-20] MEDS: AMINO ACIDS/PROTEIN HYDROLYS 30 ML LIQUID.PKT PO SCH ×2 (08:24→17:05)
[2019-10-20] MEDS: APIXABAN 5 MG TABLET NGT SCH ×2 (09:24→21:59)
[2019-10-20] MEDS: PANTOPRAZOLE SODIUM 40 MG VIAL IVPUSH SCH (09:24)
[2019-10-20] MEDS: CHLORHEXIDINE GLUCONATE 0.12% 15ML CUP MM SCH ×2 (09:24→21:58)
[2019-10-20] MEDS ORDERED: MAGNESIUM SULF 50% (8.12 MEQ/2 ML-1 GM VIAL) IVPB ONE (09:45)
--- NOTE | 2019-10-20 10:20 | PN ---
Progress Note, Physician History of Present Illness: Vented, arousable. Off pressors. Vented on volume assist control with 60% FiO2, PEEP 10. Remains in aflutter with variable conduction. - Current Medication List Current Medications: Active Medications Amino Acids (Prosource No Carb Liquid Pkt) 30 ml PO BID@0800,1730 [facility] Last Admin: 10/20/19 08:24 Dose: 30 ml Documented by: Apixaban (Eliquis -) 5 mg NGT BID [facility] Last Admin: 10/20/19 09:24 Dose: 5 mg Documented by: Atorvastatin Calcium (Lipitor -) 40 mg PO [facility] Last Admin: 10/19/19 21:45 Dose: 40 mg Documented by: Chlorhexidine Gluconate (Hibiclens For Decolonization -) 1 applic TP [facility] Last Admin: 10/19/19 21:45 Dose: 1 applic Documented by: Chlorhexidine Gluconate (Peridex -) 15 ml MM BID [facility] Last Admin: 10/20/19 09:24 Dose: 15 ml Documented by: Diltiazem HCl (Cardizem -) 90 mg PO Q6HPO [facility] Last Admin: 10/20/19 06:39 Dose: 90 mg Documented by: Fentanyl (Duragesic 25mcg Patch -) 1 patch TD Q72H [facility] Stop: 10/26/19 08:18 Last Admin: 10/19/19 10:45 Dose: 1 patch Documented by: Furosemide (Lasix Injection -) 40 mg IVPUSH BID@0600,1400 [facility] Last Admin: 10/20/19 06:39 Dose: 40 mg Documented by: Potassium Chloride (Potassium Chloride 10 Meq Premix Ivpb -) 10 meq in 100 mls @ 100 mls/hr IVPB Q60M [facility] Stop: 10/20/19 12:44 Insulin Aspart (Novolog Vial Sliding Scale -) 1 vial SQ TIDAC [facility]; Protocol Last Admin: 10/20/19 06:43 Dose: 4 units Documented by: Metoprolol Tartrate (Lopressor Injection -) 5 mg IVPUSH Q4H PRN PRN Reason: HYPERTENSION Last Admin: 10/20/19 09:46 Dose: 5 mg Documented by: Metoprolol Tartrate (Lopressor -) 50 mg PO TID [facility] Last Admin: 10/20/19 06:39 Dose: 50 mg Documented by: Miscellaneous (Duragesic Patch Waste) 1 each TD PRN PRN PRN Reason: PAIN Pantoprazole Sodium (Protonix Iv) 40 mg IVPUSH DAILY [facility] Last Admin: 10/20/19 09:24 Dose: 40 mg Documented by: Polyethylene Glycol (Miralax (For Daily Use) -) 17 gm NGT HS@2100 [facility] Last Admin: 10/19/19 21:46 Dose: 17 gm Documented by: Scopolamine HBr (Transderm-Scop -) 1 patch TD Q72H [facility] Last Admin: 10/17/19 21:10 Dose: 1 patch Documented by: - Objective Vital Signs: Vital Signs Temperature 99.4 F 10/20/19 02:00 Pulse Rate 124 H 10/20/19 09:46 Respiratory Rate 24 H 10/20/19 08:12 Blood Pressure 132/81 10/20/19 09:46 O2 Sat by Pulse Oximetry (%) 97 10/20/19 08:12 Constitutional: Yes: No Distress, Calm Neck: Yes: Other (Trach) Cardiovascular: Yes: Pulse Irregular Respiratory: Yes: Mechanically Ventilated, Rhonchi, SOB Gastrointestinal: Yes: Normal Bowel Sounds, Soft, Abdomen, Obese Genitourinary: Yes: Andrews Present Edema: Yes Edema: LLE: Trace, RLE: Trace Labs: CBC, BMP 10/20/19 06:13 10/20/19 06:13 INR, PTT INR 1.18 (0.83-1.09) H 10/14/19 05:30 - ....Imaging Chest X-ray: Report Reviewed (Improved left mid lung aeration) EKG: Report Reviewed (Tele: [facility]) Problem List - Problems (1) Acute respiratory failure with hypoxia and hypercapnia Code(s): J96.01 - ACUTE RESPIRATORY FAILURE WITH HYPOXIA; J96.02 - ACUTE RESPIRATORY FAILURE WITH HYPERCAPNIA (2) Acute decompensated heart failure Code(s): I50.9 - HEART FAILURE, UNSPECIFIED (3) Acute hypercapnic respiratory failure due to obstructive sleep apnea Code(s): J96.02 - ACUTE RESPIRATORY FAILURE WITH HYPERCAPNIA; G47.33 - OBSTRUCTIVE SLEEP APNEA (ADULT) (PEDIATRIC) (4) Atrial fibrillation and flutter Code(s): I48.91 - UNSPECIFIED ATRIAL FIBRILLATION; I48.92 - UNSPECIFIED ATRIAL FLUTTER (5) Sarcoidosis of other sites Code(s): D86.89 - SARCOIDOSIS OF OTHER SITES (6) Sleep apnea Code(s): G47.30 - SLEEP APNEA, UNSPECIFIED Qualifiers: Sleep apnea type: obstructive Qualified Code(s): G47.33 - Obstructive sleep apnea (adult) (pediatric) (7) Type 2 diabetes mellitus Code(s): E11.9 - TYPE 2 DIABETES MELLITUS WITHOUT COMPLICATIONS Qualifiers: Diabetes mellitus nursing home insulin use: without nursing home use Diabetes mellitus complication detail: with chronic kidney disease Chronic kidney disease stage: stage 2 (mild) Assessment/Plan 05/01/2019 Normal LV and RV size and fxn, tr TR 03/14/2019 Normal LV size and fxn, no thrombus ADEEL, mild-mod dilated and HK RV, tr MR, mild-mod TR, tr HI, trace pericardial effusion 1. Acute hypoxic and hypercapneic respiratory failure s/p tracheostomy on mechanical ventilation 2. Pneumonia, post septic shock and ARDS 3. Sarcoidosis confirmed by skin biopsy 4. OSAS/OHS 5. Persistent Atrial flutter/AF rate-controlled 6. Acute on chronic diastolic heart failure 7. Acute on CKD with hyperkalemia 8. Type 2 DM 9. Anemia 10. History of COVID 19 PLAN: 1. Vent per critical care 2. IV diuresis as needed with monitoring diuretic response, renal function and electrolytes 3. Rate-control with oral Cardizem 90 mg mg QID, Lopressor 50 mg TID, IV Lopressor/Cardizem as needed. Cont Eliquis 5 bid , Lipitor 40 qd 4. Hold lisinopril 10 mg QD pending hemodynamic and renal stability 5. Follow up with Dr. Genaro Davila (cardiology at [place]) as outpatient. Consider cardiac PET or MRI to exclude cardiac involvement in sarcoidosis as outpatient
--- NOTE | 2019-10-20 11:45 | PN ---
Teaching Attending Note Name of Resident: Yesenia Barrett ATTENDING PHYSICIAN STATEMENT I saw and evaluated the patient. I reviewed the resident's note and discussed the case with the resident. I agree with the resident's findings and plan as documented. SUBJECTIVE: Patient seen and examined in the ICU. Vented via Trach, arousable. Remains off pressors. OBJECTIVE: Intake & Output 10/17/19 10/18/19 10/19/19 10/20/19 23:59 23:59 23:59 23:59 Intake Total 1560 1395.6 1407.6 375 Output Total 3500 3200 1300 1300 Balance -1940 -1804.4 107.6 -925 Weight 269 lb 4.8 oz 269 lb 11.2 oz 269 lb 9 oz Last Vital Signs Temp Pulse Resp BP Pulse Ox 99.2 F 121 H 25 H 148/88 96 10/20/19 10:00 10/20/19 10:00 10/20/19 11:28 10/20/19 10:00 10/20/19 11:28 Active Medications Amino Acids (Prosource No Carb Liquid Pkt) 30 ml PO BID@0800,1730 [facility] Last Admin: 10/20/19 08:24 Dose: 30 ml Documented by: Apixaban (Eliquis -) 5 mg NGT BID [facility] Last Admin: 10/20/19 09:24 Dose: 5 mg Documented by: Atorvastatin Calcium (Lipitor -) 40 mg PO [facility] Last Admin: 10/19/19 21:45 Dose: 40 mg Documented by: Chlorhexidine Gluconate (Hibiclens For Decolonization -) 1 applic TP [facility] Last Admin: 10/19/19 21:45 Dose: 1 applic Documented by: Chlorhexidine Gluconate (Peridex -) 15 ml MM BID [facility] Last Admin: 10/20/19 09:24 Dose: 15 ml Documented by: Diltiazem HCl (Cardizem -) 90 mg PO Q6HPO [facility] Last Admin: 10/20/19 06:39 Dose: 90 mg Documented by: Fentanyl (Duragesic 25mcg Patch -) 1 patch TD Q72H [facility] Stop: 10/26/19 08:18 Last Admin: 10/19/19 10:45 Dose: 1 patch Documented by: Furosemide (Lasix Injection -) 40 mg IVPUSH BID@0600,1400 [facility] Last Admin: 10/20/19 06:39 Dose: 40 mg Documented by: Potassium Chloride (Potassium Chloride 10 Meq Premix Ivpb -) 10 meq in 100 mls @ 100 mls/hr IVPB Q60M [facility] Stop: 10/20/19 12:44 Insulin Aspart (Novolog Vial Sliding Scale -) 1 vial SQ TIDAC [facility]; Protocol Last Admin: 10/20/19 06:43 Dose: 4 units Documented by: Metoprolol Tartrate (Lopressor Injection -) 5 mg IVPUSH Q4H PRN PRN Reason: HYPERTENSION Last Admin: 10/20/19 09:46 Dose: 5 mg Documented by: Metoprolol Tartrate (Lopressor -) 50 mg PO TID [facility] Last Admin: 10/20/19 06:39 Dose: 50 mg Documented by: Miscellaneous (Duragesic Patch Waste) 1 each TD PRN PRN PRN Reason: PAIN Pantoprazole Sodium (Protonix Iv) 40 mg IVPUSH DAILY [facility] Last Admin: 10/20/19 09:24 Dose: 40 mg Documented by: Polyethylene Glycol (Miralax (For Daily Use) -) 17 gm NGT HS@2100 [facility] Last Admin: 10/19/19 21:46 Dose: 17 gm Documented by: Scopolamine HBr (Transderm-Scop -) 1 patch TD Q72H [facility] Last Admin: 10/17/19 21:10 Dose: 1 patch Documented by: Gen: Vented, awake Heart: RRR Lung: scattered rhonchi Abd: soft, nontender Ext: no edema Laboratory Results - last 24 hr 10/19/19 10/20/19 10/20/19 17:17 06:13 06:13 WBC 9.2 RBC 3.92 L Hgb 9.5 L Hct 30.6 L MCV 78.0 L MCH 24.3 L MCHC 31.2 L RDW 18.3 H Plt Count 451 H MPV 7.6 Absolute Neuts (auto) 7.7 Neutrophils % 83.8 H Lymphocytes % 4.5 L D Monocytes % 8.0 Eosinophils % 2.9 D Basophils % 0.8 Nucleated RBC % 0 Sodium 139 Potassium 3.4 L Chloride 96 L Carbon Dioxide 33 H Anion Gap 9 BUN 18.8 H Creatinine 0.6 Est GFR (CKD-EPI)AfAm 133.98 Est GFR (CKD-EPI)NonAf 115.60 POC Glucometer 206 Random Glucose 199 H Calcium 8.8 Phosphorus 3.6 Magnesium 1.4 L Total Bilirubin 0.8 AST 15 ALT 24 Alkaline Phosphatase 177 H Total Protein 5.9 L Albumin 2.3 L 10/20/19 06:42 WBC RBC Hgb Hct MCV MCH MCHC RDW Plt Count MPV Absolute Neuts (auto) Neutrophils % Lymphocytes % Monocytes % Eosinophils % Basophils % Nucleated RBC % Sodium Potassium Chloride Carbon Dioxide Anion Gap BUN Creatinine Est GFR (CKD-EPI)AfAm Est GFR (CKD-EPI)NonAf POC Glucometer 209 Random Glucose Calcium Phosphorus Magnesium Total Bilirubin AST ALT Alkaline Phosphatase Total Protein Albumin ASSESSMENT AND PLAN: Acute Hypoxic and Hypercapneic Respiratory Failure S/P Trach UTI Pneumonia ARDS Septic Shock Acute on Chronic Diastolic Heart Failure Volume Overload Atrial Fibrillation/Flutter with RVR h/o COVID19 Sarcoidosis Morbid Obesity EMMY/OHS Anemia - continue antibiotics per ID - rate control - continue anticoagulation - monitor urine output, creatinine - continue volume assist control - taper FiO2, PEEP to keep SpO2 >90% - enteral feeds - DVT/GI prophylaxis - Vent floor Dr Maya
[2019-10-20] MEDS ORDERED: POTASSIUM CHLORIDE TABS 20 MEQ TABLET.ER (FP) PO ONE (12:22)
[2019-10-20] MEDS: KCL 10 MEQ IVPB 10 MEQ/100 ML INFUS.BAG IVPB SCH (19:14)
--- NOTE | 2019-10-20 19:16 | PN ---
Physical Exam: SUBJECTIVE: Patient seen and examined, tracheostomy in place on ventilator. Patient responds with head nodding, denied pain during physical exam and endorsed feeling touch on feet and hands. urine 1300cc, last BM 10/18/2019. No acute events overnight but patient needs continued BP monitoring - increases in BP are suspected to be due to agitation (vs pain vs insufficient medical management). OBJECTIVE: Vital Signs Period Temp Pulse Resp BP Sys/[place] Pulse Ox Last 24 Hr 99 F-99.4 F 76-130 18-26 132-174/81-99 94-100 GENERAL: on ventilator with tracheostomy, awake, responsive, no signs of acute distress. HEAD: Normal with no signs of trauma, some perioral and periocular dried crusted secretions LUNGS: Breath sounds from ventilator are clear to auscultation bilaterally, no wheezes, no crackles HEART: irregular rhythm, S1, S2 without murmur, rub or gallop ABDOMEN: distended and mildly rigid on palpation, hypoactive BS, nontender to palpation EXTREMITIES: warm, 1+ pedal pitting edema bilaterally, non-pitting edema of hands bilaterally SKIN: Warm, no rashes or lesions noted Laboratory Results - last 24 hr 10/20/19 10/20/19 10/20/19 06:13 06:13 06:42 WBC 9.2 RBC 3.92 L Hgb 9.5 L Hct 30.6 L MCV 78.0 L MCH 24.3 L MCHC 31.2 L RDW 18.3 H Plt Count 451 H MPV 7.6 Absolute Neuts (auto) 7.7 Neutrophils % 83.8 H Lymphocytes % 4.5 L D Monocytes % 8.0 Eosinophils % 2.9 D Basophils % 0.8 Nucleated RBC % 0 Sodium 139 Potassium 3.4 L Chloride 96 L Carbon Dioxide 33 H Anion Gap 9 BUN 18.8 H Creatinine 0.6 Est GFR (CKD-EPI)AfAm 133.98 Est GFR (CKD-EPI)NonAf 115.60 POC Glucometer 209 Random Glucose 199 H Calcium 8.8 Phosphorus 3.6 Magnesium 1.4 L Total Bilirubin 0.8 AST 15 ALT 24 Alkaline Phosphatase 177 H Total Protein 5.9 L Albumin 2.3 L 10/20/19 10/20/19 13:29 17:00 WBC RBC Hgb Hct MCV MCH MCHC RDW Plt Count MPV Absolute Neuts (auto) Neutrophils % Lymphocytes % Monocytes % Eosinophils % Basophils % Nucleated RBC % Sodium Potassium Chloride Carbon Dioxide Anion Gap BUN Creatinine Est GFR (CKD-EPI)AfAm Est GFR (CKD-EPI)NonAf POC Glucometer 245 227 Random Glucose Calcium Phosphorus Magnesium Total Bilirubin AST ALT Alkaline Phosphatase Total Protein Albumin Active Medications Generic Name Dose Route Start Last Admin Trade Name Freq PRN Reason Stop Dose Admin Amino Acids 30 ml 09/29/19 17:30 10/20/19 17:05 Prosource No Carb Liquid Pkt PO 30 ml BID@0800,1730 [facility] Administration Apixaban 5 mg 10/15/19 10:15 10/20/19 09:24 Eliquis - NGT 5 mg BID [facility] Administration Atorvastatin Calcium 40 mg 10/08/19 22:00 10/19/19 21:45 Lipitor - PO 40 mg HS [facility] Administration Chlorhexidine Gluconate 1 applic 09/27/19 22:00 10/19/19 21:45 Hibiclens For Decolonization - TP 1 applic HS [facility] Administration Chlorhexidine Gluconate 15 ml 10/05/19 22:00 10/20/19 09:24 Peridex - MM 15 ml BID [facility] Administration Diltiazem HCl 90 mg 10/07/19 11:32 10/20/19 17:06 Cardizem - PO 90 mg Q6HPO [facility] Administration Fentanyl 1 patch 10/19/19 08:30 10/19/19 10:45 Duragesic 25mcg Patch - TD 10/26/19 08:18 1 patch Q72H [facility] Administration Furosemide 40 mg 10/16/19 06:00 10/20/19 13:16 Lasix Injection - IVPUSH 40 mg BID@0600,1400 [facility] Administration Insulin Aspart 1 vial 10/17/19 11:00 10/20/19 17:07 Novolog Vial Sliding Scale - SQ 4 units TIDAC [facility] Administration Protocol Metoprolol Tartrate 5 mg 10/07/19 23:27 10/20/19 09:46 Lopressor Injection - IVPUSH 5 mg Q4H PRN Administration HYPERTENSION Metoprolol Tartrate 50 mg 10/19/19 22:00 10/20/19 13:17 Lopressor - PO 50 mg TID [facility] Administration Miscellaneous 1 each 10/19/19 08:18 Duragesic Patch Waste TD PRN PRN PAIN Pantoprazole Sodium 40 mg 09/29/19 11:00 10/20/19 09:24 Protonix Iv IVPUSH 40 mg DAILY [facility] Administration Polyethylene Glycol 17 gm 10/03/19 21:00 10/19/19 21:46 Miralax (For Daily Use) - NGT 17 gm HS@2100 [facility] Administration Scopolamine HBr 1 patch 10/08/19 22:00 10/17/19 21:10 Transderm-Scop - TD 1 patch Q72H [facility] Administration vent: 18/390/100/10 sat 99% ASSESSMENT/PLAN: 53yo M with PMHx of CHF, afib/flutter on eliquis, sarcoidosis, guillan barre, morbid obesity, previously hospitalized with repeated intubations/extubations for CHF exacerbation, another hospitalization for COVID including tracheostomy and decanulation, currently intubated, with continued rate control for persistent aflutter and tachycardia. #Neuro no acute issues - patient denies pain - continue pain control with fentanyl patch - consider ativan for agitation #Cardio h/o afib/aflutter, CHF exacerbation - rate controlled with PO diltiazem and metoprolol. IV metoprolol PRN - continue apixaban due to afib/aflutter - MAP goal > 65 - continue home dose atorvastatin - continue furosemide #pulm acute hypoxic hypercapnic respiratory failure secondary to CHF exacerbation - on vent with tracheostomy - continue resp support and wean FiO2 as tolerated - scopolamine patch to thin secretions #Endo - BGM ACHS - continue SS #heme anemia, at baseline - monitor Hgb daily #GI - stool softners with miralax #FEN - promote tube feeds (high protein, low kcal) - replete lytes PRN - no standing fluids #PPx - DVT: apixaban - GI: pentoprazole Tana Madrigal # [phone] (understands Croatian but only speaks Guinean) Dispo - transfer to floor 5S Visit type - Emergency Visit Emergency Visit: Yes ED Registration Date: 09/27/19 Care time: The patient presented to the Emergency Department on the above date and was hospitalized for further evaluation of their emergent condition. - New Patient This patient is new to me today: No - Critical Care Critical Care patient: Yes Total Critical Care Time (in minutes): 37 Critical Care Statement: The care of this patient involved high complexity decision making to prevent further life threatening deterioration of the patient's condition and/or to evaluate & treat vital organ system(s) failure or risk of failure. ATTENDING PHYSICIAN STATEMENT I saw and evaluated the patient. I reviewed the resident's note and discussed the case with the resident. I agree with the resident's findings and plan as documented. SUBJECTIVE: OBJECTIVE: ASSESSMENT AND PLAN:
[2019-10-20] MEDS ORDERED: FENTANYL PATCH WASTE TD PRN (20:35)
[2019-10-20] MEDS: POLYETHYLENE GLYCOL 3350 119 GM BTL NGT SCH (21:57)
[2019-10-20] MEDS: ATORVASTATIN CA 40 MG TABLET (FP) PO SCH (21:58)
[2019-10-20] MEDS: CHLORHEXIDINE GLUCONATE 4% CLEANSER FOR DECOLONIZATION TP SCH (21:58)
[2019-10-20] MEDS: SCOPOLAMINE HYDROBROMIDE 1 PATCH PATCH.TD72 TD SCH (21:59)
[2019-10-21] MEDS: dilTIAZem HCL 60 MG TABLET PO SCH ×4 (00:08→17:13)
[2019-10-21] MEDS: METOPROLOL TARTRATE 50 MG TABLET (FP) PO SCH ×3 (05:15→22:06)
[2019-10-21] MEDS: FUROSEMIDE 40 MG/4 ML INJECTABLE VIAL IVPUSH SCH ×2 (05:15→13:09)
[2019-10-21] MEDS: METOPROLOL TARTRATE 5 MG/5 ML VIAL IVPUSH PRN ×2 (05:43→10:12)
--- NOTE | 2019-10-21 05:49 | HOSP ---
Subjective - Review of Symptoms Subjective: Patient transferred to telemetry from ICU. Transfer uneventful. Physical Examination Vital Signs: Vital Signs Temperature 98.9 F 10/21/19 04:00 Pulse Rate 133 H 10/21/19 05:43 Respiratory Rate 23 H 10/21/19 04:25 Blood Pressure 147/93 10/21/19 05:43 O2 Sat by Pulse Oximetry (%) 96 10/21/19 03:49 Constitutional: Yes: No Distress, Obese Eyes: Yes: WNL, Conjunctiva Clear HENT: Yes: Atraumatic, Normocephalic Neck: Yes: Other (Trach in place c/d/i no signs of infection) Cardiovascular: Yes: Other (irregularly irregular) Respiratory: Yes: Mechanically Ventilated, Rhonchi Gastrointestinal: Yes: Normal Bowel Sounds, Soft, Abdomen, Obese Renal/: Yes: Andrews Present Edema: Yes Edema: LLE: 2+, RLE: 2+ Peripheral Pulses WNL: Yes Peripheral Pulses: Left Radial: 2+, Right Radial: 2+, Left Doralis Pedis: 2+, Right Dorsalis Pedis: 2+ Integumentary: Yes: WNL Neurological: Yes: Alert, Other (Arousable) Labs: CBC, BMP 10/20/19 06:13 10/20/19 06:13 Hospitalist Encounter Assessment: Patient is aa 53 y.o. M PMH CHF, afib/flutter on eliquis, sarcoidosis, guillane barre, morbid obesity, multiple hospitalizations (intubated/extubated multiple times), trached with decannulation, hx of COVID-19 pneumonitis, admitted on this visit for acute hypercapneic respiratory failure. #Acute hypoxic hypercapneic respiratory failure -patient is trached; volume assist control ; TV 390/ RR 18/ FIO2 60%/ PEEP 10 -taper FiO2, PEEP to maintain SpO2 >90% -scopolamine to thin secretions -Sputum cx + MRSA, ESBL; s/p meropenem/ vanc course. now monitoring off abx #HTN -ACEi held 2/2 hemodynamic instability -closely monitor BP; maintain MAP >65 -Follow up with Dr. Genaro Davila (cardiology at [place]) as outpatient #A-flutter/ A-fib -rate control: Cardizem 90 mg mg PO QID, Lopressor 50 mg PO TID, IV Lopressor/Cardizem IV prn -telemetry monitoring -continue Eliquis 5mg BID #Acute on chronic diastolic CHF -continue lasix 40mg IV BID; trend creatinine -last echo 08/27/19: EF 52%/ Mild LVH. Mildly dilated RA & RV. Mild TR. Mod to severe pulm HTN. Small pericardial effusion (<1cm) -Is & Os -daily weights #UTI -urine cx + enterobacter aerogenes -s/p meropenem course -now observing off abx -ID following- Dr. Garcia #Sarcoidosis -Consider cardiac PET or MRI to exclude cardiac involvement in sarcoidosis as outpatient #HLD -continue atorvastatin 40mg PO HS #FEN -no standing fluids -monitor & replete lytes prn -continue tube feeds (glucerna 1.5) #PPX -DVT: eliquis -GI: protonix 40mg IV daily #Dispo monitor on telemetry Visit type - Emergency Visit Emergency Visit: No - New Patient This patient is new to me today: No - Critical Care Critical Care patient: No
[2019-10-21] MEDS: INSULIN SLIDING SCALE (NOVOLOG) 1 VIAL SQ SCH ×3 (06:30→17:13)
--- NOTE | 2019-10-21 07:01 | PN ---
Progress Note (short form) - Note Progress Note: Chief Complaint: Events noted, notes reviewed, remains on a ventilator via tracheostomy/sedated, off of pressors, persistent atrial flutter with variable ventricular response History of Present Illness: Seen and examined in the ICU. Events noted, notes reviewed, remains on a ventilator via tracheostomy/sedated, off of pressors, persistent atrial flutter with variable ventricular response Current Medications: Current Medications Generic Name Dose Route Start Last Admin Trade Name Freq PRN Reason Stop Dose Admin Amino Acids 30 ml 10/21/19 08:00 Prosource No Carb Liquid Pkt PO BID@0800,1730 ELISSA Apixaban 5 mg 10/20/19 22:00 10/20/19 21:59 Eliquis - NGT 5 mg BID ELISSA Administration Atorvastatin Calcium 40 mg 10/20/19 22:00 10/20/19 21:58 Lipitor - PO 40 mg HS ELISSA Administration Chlorhexidine Gluconate 1 applic 10/20/19 22:00 10/20/19 21:58 Hibiclens For Decolonization - TP 1 applic HS ELISSA Administration Chlorhexidine Gluconate 15 ml 10/20/19 22:00 10/20/19 21:58 Peridex - MM 15 ml BID ELISSA Administration Diltiazem HCl 90 mg 10/21/19 00:00 10/21/19 05:15 Cardizem - PO 90 mg Q6HPO ELISSA Administration Fentanyl 1 patch 10/22/19 08:30 Duragesic 25mcg Patch - TD 10/26/19 08:18 Q72H ELISSA Furosemide 40 mg 10/21/19 06:00 10/21/19 05:15 Lasix Injection - IVPUSH 40 mg BID@0600,1400 ELISSA Administration Insulin Aspart 1 vial 10/21/19 07:00 10/21/19 06:30 Novolog Vial Sliding Scale - SQ 2 units TIDAC ELISSA Administration Protocol Metoprolol Tartrate 50 mg 10/20/19 22:00 10/21/19 05:15 Lopressor - PO 50 mg TID ELISSA Administration Metoprolol Tartrate 5 mg 10/20/19 20:35 10/21/19 05:43 Lopressor Injection - IVPUSH 5 mg Q4H PRN Administration HYPERTENSION Miscellaneous 1 each 10/20/19 20:35 Duragesic Patch Waste TD PRN PRN PAIN Pantoprazole Sodium 40 mg 10/21/19 10:00 Protonix Iv IVPUSH DAILY ELISSA Polyethylene Glycol 17 gm 10/20/19 21:00 10/20/19 21:57 Miralax (For Daily Use) - NGT 17 gm HS@2100 ELISSA Administration Scopolamine HBr 1 patch 10/20/19 22:00 10/20/19 21:59 Transderm-Scop - TD 1 patch Q72H ELISSA Administration Review of Systems Unable to obtain - Objective Vital Signs: Last Vital Signs Temp Pulse Resp BP Pulse Ox 99 F 77 23 H 125/96 96 10/21/19 06:00 10/21/19 06:00 10/21/19 06:00 10/21/19 06:00 10/21/19 03:49 Intake & Output 10/18/19 10/19/19 10/20/19 10/21/19 23:59 23:59 23:59 23:59 Intake Total 1395.6 1407.6 1165 660 Output Total 3200 1300 3000 1000 Balance -1804.4 107.6 -1835 -340 Weight 269 lb 4.8 oz 269 lb 11.2 oz 269 lb 9 oz 269 lb Neck: Supple negative JVD no bruit Cardiovascular: S1 S2 Irregularly Irregular Respiratory: Diminished Breath Sounds Bilaterally Gastrointestinal: Soft Benign Normal Bowel Sounds Ext: Edema Bilaterally Labs: CBC, BMP 10/21/19 07:43 10/21/19 07:43 CBC, BMP 10/20/19 06:13 10/20/19 06:13 Hepatic Panel Total Bilirubin 0.8 mg/dL (0.2-1) 10/20/19 06:13 AST 15 U/L (15-37) 10/20/19 06:13 ALT 24 U/L (13-61) 10/20/19 06:13 Alkaline Phosphatase 177 U/L (45-117) H 10/20/19 06:13 Albumin 2.3 g/dl (3.4-5.0) L 10/20/19 06:13 INR, PTT INR 1.18 (0.83-1.09) H 10/14/19 05:30 Assessment/Plan: ASSESSMENT: 1. Acute on chronic hypoxic/hypercapnic respiratory failure post tracheostomy on mechanical ventilation 2. History of pneumonia complicated by septic shock- ARDS, last admission/hospitalization 3. Persistent atrial flutter/paroxysmal atrial fibrillation [id number] score of 0 on A/C therapy with intermittent periods of rapid ventricular response 4. Diastolic/systolic LV dysfunction with chronic class 0-I NYHA classification LV failure 5. Sarcoidosis confirmed by skin biopsy, R/O cardiac involvement- for future evaluation/cardiac MRI 6. History of coronavirus/COVID 19 infection 7. DM 8. History of OSAS 9. History of acute on chronic kidney disease, pre-renal azotemia 10. Anemia PLAN: 1. Ventilator management as per the critical care team 2. Continue B-Blockers/Lopressor to assist with rate control titrate dose as needed/hemodynamics permitting 3. Continue Cardizem to assist with rate control titrate dose as needed/he modynamics permitting 4. Recommend resumption of Lisinopril/hemodynamics permitting unless it is abs olutely contraindicated 5. Lasix intravenously with close monitoring of renal function and electrolytes 6. Continue DOAS's/Eliquis therapy unless it is absolutely contraindicated with close monitoring of CBC/Hg 7. Continue Lipitor therapy Maycol King MD
[2019-10-21 08:02] LABS: BASO % 0.6 % (0-2.0); EOS % 3.2 % (0-4.5); HEMATOCRIT 29.1 % (35.4-49); HEMOGLOBIN 9.3 GM/dL (11.7-16.9); LYMPH % 4.4 % (8-40); MCH 24.9 pg (25.7-33.7); MCHC 31.9 g/dl (32.0-35.9); MEAN CELL VOLUME 78.2 fl (80-96); MEAN PLT VOLUME 7.4 fl (7.5-11.1); MONO % 8.9 % (3.8-10.2); NEUT % 82.9 % (42.8-82.8); PLATELET COUNT 409 K/MM3 (134-434); RBC 3.73 M/mm3 (4.00-5.60); RDW 18.3 % (11.9-15.9); WHITE BLOOD COUNT 9.6 K/mm3 (4.0-10.0)
[2019-10-21 08:32] LABS: ALBUMIN 2.2 g/dl (3.4-5.0); BILIRUBIN,TOTAL 0.7 mg/dL (0.2-1); BLOOD UREA NITROGEN 19.8 mg/dL (7-18); CALCIUM 8.5 mg/dL (8.5-10.1); CREATININE 0.7 mg/dL (0.55-1.3); MAGNESIUM 1.7 mg/dL (1.8-2.4); PHOSPHOROUS 4.6 mg/dL (2.5-4.9); TOT PROT 5.8 g/dl (6.4-8.2)
[2019-10-21] MEDS: CHLORHEXIDINE GLUCONATE 0.12% 15ML CUP MM SCH ×2 (09:56→22:07)
[2019-10-21] MEDS: PANTOPRAZOLE SODIUM 40 MG VIAL IVPUSH SCH (09:56)
[2019-10-21] MEDS: AMINO ACIDS/PROTEIN HYDROLYS 30 ML LIQUID.PKT PO SCH ×2 (09:56→17:13)
[2019-10-21] MEDS: APIXABAN 5 MG TABLET NGT SCH ×2 (09:56→22:06)
--- NOTE | 2019-10-21 14:03 | PN ---
Progress Note (short form) - Note Progress Note: Patient seen and examined in the [facility]ICU. Vented via Trach, arousable. No acute events overnight. AC Mode of vent, 60% FiO2. OBJECTIVE: Intake & Output 10/18/19 10/19/19 10/20/19 10/21/19 23:59 23:59 23:59 23:59 Intake Total 1395.6 1407.6 1165 660 Output Total 3200 1300 3000 1000 Balance -1804.4 107.6 -1835 -340 Weight 269 lb 4.8 oz 269 lb 11.2 oz 269 lb 9 oz 269 lb Last Vital Signs Temp Pulse Resp BP Pulse Ox 98.8 F 130 H 21 H 149/98 95 10/21/19 10:00 10/21/19 10:12 10/21/19 11:49 10/21/19 10:12 10/21/19 08:40 Active Medications Amino Acids (Prosource No Carb Liquid Pkt) 30 ml PO BID@0800,1730 [facility] Last Admin: 10/21/19 09:56 Dose: 30 ml Documented by: Apixaban (Eliquis -) 5 mg NGT BID [facility] Last Admin: 10/21/19 09:56 Dose: 5 mg Documented by: Atorvastatin Calcium (Lipitor -) 40 mg PO [facility] Last Admin: 10/20/19 21:58 Dose: 40 mg Documented by: Chlorhexidine Gluconate (Hibiclens For Decolonization -) 1 applic TP [facility] Last Admin: 10/20/19 21:58 Dose: 1 applic Documented by: Chlorhexidine Gluconate (Peridex -) 15 ml MM BID [facility] Last Admin: 10/21/19 09:56 Dose: 15 ml Documented by: Diltiazem HCl (Cardizem -) 90 mg PO Q6HPO [facility] Last Admin: 10/21/19 11:48 Dose: 90 mg Documented by: Fentanyl (Duragesic 25mcg Patch -) 1 patch TD Q72H [facility] Stop: 10/26/19 08:18 Furosemide (Lasix Injection -) 40 mg IVPUSH BID@0600,1400 [facility] Last Admin: 10/21/19 13:09 Dose: 40 mg Documented by: Insulin Aspart (Novolog Vial Sliding Scale -) 1 vial SQ TIDAC [facility]; Protocol Last Admin: 10/21/19 11:42 Dose: 6 units Documented by: Metoprolol Tartrate (Lopressor -) 50 mg PO TID [facility] Last Admin: 10/21/19 13:09 Dose: 50 mg Documented by: Metoprolol Tartrate (Lopressor Injection -) 5 mg IVPUSH Q4H PRN PRN Reason: HYPERTENSION Last Admin: 10/21/19 10:12 Dose: 5 mg Documented by: Miscellaneous (Duragesic Patch Waste) 1 each TD PRN PRN PRN Reason: PAIN Pantoprazole Sodium (Protonix Iv) 40 mg IVPUSH DAILY [facility] Last Admin: 10/21/19 09:56 Dose: 40 mg Documented by: Polyethylene Glycol (Miralax (For Daily Use) -) 17 gm NGT HS@2100 [facility] Last Admin: 10/20/19 21:57 Dose: 17 gm Documented by: Scopolamine HBr (Transderm-Scop -) 1 patch TD Q72H [facility] Last Admin: 10/20/19 21:59 Dose: 1 patch Documented by: Gen: Vented, awake Heart: RRR Lung: scattered rhonchi Abd: soft, nontender Ext: no edema Laboratory Results - last 24 hr 10/20/19 10/21/19 10/21/19 17:00 06:25 07:43 WBC 9.6 RBC 3.73 L Hgb 9.3 L Hct 29.1 L MCV 78.2 L MCH 24.9 L MCHC 31.9 L RDW 18.3 H Plt Count 409 MPV 7.4 L Absolute Neuts (auto) 8.0 Neutrophils % 82.9 H Lymphocytes % 4.4 L Monocytes % 8.9 Eosinophils % 3.2 Basophils % 0.6 Nucleated RBC % 0 Sodium Potassium Chloride Carbon Dioxide Anion Gap BUN Creatinine Est GFR (CKD-EPI)AfAm Est GFR (CKD-EPI)NonAf POC Glucometer 227 191 Random Glucose Calcium Phosphorus Magnesium Total Bilirubin AST ALT Alkaline Phosphatase Total Protein Albumin 10/21/19 07:43 WBC RBC Hgb Hct MCV MCH MCHC RDW Plt Count MPV Absolute Neuts (auto) Neutrophils % Lymphocytes % Monocytes % Eosinophils % Basophils % Nucleated RBC % Sodium 137 Potassium 4.0 Chloride 96 L Carbon Dioxide 36 H Anion Gap 5 L BUN 19.8 H Creatinine 0.7 Est GFR (CKD-EPI)AfAm 125.75 Est GFR (CKD-EPI)NonAf 108.50 POC Glucometer Random Glucose 202 H Calcium 8.5 Phosphorus 4.6 Magnesium 1.7 L Total Bilirubin 0.7 AST 23 ALT 22 Alkaline Phosphatase 179 H Total Protein 5.8 L Albumin 2.2 L ASSESSMENT AND PLAN: Acute Hypoxic and Hypercapneic Respiratory Failure S/P Trach UTI Pneumonia ARDS Septic Shock Acute on Chronic Diastolic Heart Failure Volume Overload Atrial Fibrillation/Flutter with RVR h/o COVID19 Sarcoidosis Morbid Obesity EMMY/OHS Anemia - Eliquis - Off antibiotics per ID - rate control - continue anticoagulation - monitor urine output, creatinine - continue volume assist control - taper FiO2, PEEP to keep SpO2 >90% - enteral feeds - GI prophylaxis Dr Maya
[2019-10-21] MEDS: CHLORHEXIDINE GLUCONATE 4% CLEANSER FOR DECOLONIZATION TP SCH (22:06)
[2019-10-21] MEDS: ATORVASTATIN CA 40 MG TABLET (FP) PO SCH (22:06)
[2019-10-21] MEDS: POLYETHYLENE GLYCOL 3350 119 GM BTL NGT SCH (22:07)
[2019-10-22] MEDS: dilTIAZem HCL 60 MG TABLET PO SCH ×4 (01:19→18:15)
[2019-10-22] MEDS: FUROSEMIDE 40 MG/4 ML INJECTABLE VIAL IVPUSH SCH ×2 (06:09→15:31)
[2019-10-22] MEDS: METOPROLOL TARTRATE 50 MG TABLET (FP) PO SCH ×3 (06:09→22:37)
[2019-10-22] MEDS: INSULIN SLIDING SCALE (NOVOLOG) 1 VIAL SQ SCH ×3 (06:22→15:55)
[2019-10-22] MEDS: fentaNYL 25mcg/hr PATCH.TD72 TD SCH (08:41)
[2019-10-22] MEDS: AMINO ACIDS/PROTEIN HYDROLYS 30 ML LIQUID.PKT PO SCH (08:42)
[2019-10-22] MEDS: APIXABAN 5 MG TABLET NGT SCH ×2 (09:00→22:37)
[2019-10-22] MEDS: CHLORHEXIDINE GLUCONATE 0.12% 15ML CUP MM SCH ×2 (09:00→22:38)
[2019-10-22] MEDS: PANTOPRAZOLE SODIUM 40 MG VIAL IVPUSH SCH (09:00)
--- NOTE | 2019-10-22 10:57 | PN ---
Progress Note, Physician History of Present Illness: Vented, arousable. Off pressors. Vented on volume assist control with 60% FiO2, PEEP 10. Remains in aflutter with variable conduction. - Current Medication List Current Medications: Active Medications Amino Acids (Prosource No Carb Liquid Pkt) 30 ml PO BID@0800,1730 [facility] Last Admin: 10/22/19 08:42 Dose: 30 ml Documented by: Apixaban (Eliquis -) 5 mg NGT BID [facility] Last Admin: 10/22/19 09:00 Dose: 5 mg Documented by: Atorvastatin Calcium (Lipitor -) 40 mg PO [facility] Last Admin: 10/21/19 22:06 Dose: 40 mg Documented by: Chlorhexidine Gluconate (Hibiclens For Decolonization -) 1 applic TP [facility] Last Admin: 10/21/19 22:06 Dose: 1 applic Documented by: Chlorhexidine Gluconate (Peridex -) 15 ml MM BID [facility] Last Admin: 10/22/19 09:00 Dose: 15 ml Documented by: Diltiazem HCl (Cardizem -) 90 mg PO Q6HPO [facility] Last Admin: 10/22/19 06:10 Dose: 90 mg Documented by: Fentanyl (Duragesic 25mcg Patch -) 1 patch TD Q72H [facility] Stop: 10/26/19 08:18 Last Admin: 10/22/19 08:41 Dose: 1 patch Documented by: Furosemide (Lasix Injection -) 40 mg IVPUSH BID@0600,1400 [facility] Last Admin: 10/22/19 06:09 Dose: 40 mg Documented by: Insulin Aspart (Novolog Vial Sliding Scale -) 1 vial SQ TIDAC [facility]; Protocol Last Admin: 10/22/19 06:22 Dose: 2 units Documented by: Metoprolol Tartrate (Lopressor -) 50 mg PO TID [facility] Last Admin: 10/22/19 06:09 Dose: 50 mg Documented by: Metoprolol Tartrate (Lopressor Injection -) 5 mg IVPUSH Q4H PRN PRN Reason: HYPERTENSION Last Admin: 10/21/19 10:12 Dose: 5 mg Documented by: Miscellaneous (Duragesic Patch Waste) 1 each TD PRN PRN PRN Reason: PAIN Pantoprazole Sodium (Protonix Iv) 40 mg IVPUSH DAILY [facility] Last Admin: 10/22/19 09:00 Dose: 40 mg Documented by: Polyethylene Glycol (Miralax (For Daily Use) -) 17 gm NGT HS@2100 [facility] Last Admin: 10/21/19 22:07 Dose: 17 gm Documented by: Scopolamine HBr (Transderm-Scop -) 1 patch TD Q72H [facility] Last Admin: 10/20/19 21:59 Dose: 1 patch Documented by: - Objective Vital Signs: Vital Signs Temperature 97.6 F 10/22/19 09:45 Pulse Rate 94 H 10/22/19 09:45 Respiratory Rate 10/22/19 09:45 Blood Pressure 128/74 10/22/19 09:45 O2 Sat by Pulse Oximetry (%) 99 10/22/19 09:00 Constitutional: Yes: No Distress, Calm Neck: Yes: Other (Tracheostomy) Cardiovascular: Yes: Pulse Irregular Respiratory: Yes: Mechanically Ventilated, Rhonchi Gastrointestinal: Yes: Normal Bowel Sounds, Soft, Abdomen, Obese Genitourinary: Yes: Andrews Present Edema: Yes Edema: LLE: Trace, RLE: Trace Integumentary: Yes: Venous Stasis Changes Labs: CBC, BMP 10/21/19 07:43 10/21/19 07:43 INR, PTT INR 1.18 (0.83-1.09) H 10/14/19 05:30 - ....Imaging EKG: Report Reviewed (Tele: [facility]) Problem List - Problems (1) Acute respiratory failure with hypoxia and hypercapnia Code(s): J96.01 - ACUTE RESPIRATORY FAILURE WITH HYPOXIA; J96.02 - ACUTE RESPIRATORY FAILURE WITH HYPERCAPNIA (2) Acute decompensated heart failure Code(s): I50.9 - HEART FAILURE, UNSPECIFIED (3) Acute hypercapnic respiratory failure due to obstructive sleep apnea Code(s): J96.02 - ACUTE RESPIRATORY FAILURE WITH HYPERCAPNIA; G47.33 - OBSTRUCTIVE SLEEP APNEA (ADULT) (PEDIATRIC) (4) Atrial fibrillation and flutter Code(s): I48.91 - UNSPECIFIED ATRIAL FIBRILLATION; I48.92 - UNSPECIFIED ATRIAL FLUTTER (5) Sarcoidosis of other sites Code(s): D86.89 - SARCOIDOSIS OF OTHER SITES (6) Sleep apnea Code(s): G47.30 - SLEEP APNEA, UNSPECIFIED Qualifiers: Sleep apnea type: obstructive Qualified Code(s): G47.33 - Obstructive sleep apnea (adult) (pediatric) (7) Type 2 diabetes mellitus Code(s): E11.9 - TYPE 2 DIABETES MELLITUS WITHOUT COMPLICATIONS Qualifiers: Diabetes mellitus senior living insulin use: without entry level marketing 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 Acute hypoxic and hypercapneic respiratory failure s/p tracheostomy on mechanical ventilation 2. Pneumonia, post septic shock and ARDS 3. Sarcoidosis confirmed by skin biopsy 4. OSAS/OHS 5. Persistent Atrial flutter/AF with intermittent periods of rapid ventricular response 6. Acute on chronic diastolic heart failure 7. Acute on CKD with hyperkalemia 8. Type 2 DM 9. Anemia 10. History of COVID 19 PLAN: 1. Vent with taper FiO2, PEEP to keep SpO2 >90%, spontaneous breathing trials as tolerated, placed on SIMV 2. IV diuresis as needed with monitoring diuretic response, renal function and electrolytes 3. Rate-control with oral Cardizem 90 mg mg QID, Lopressor 50 mg TID, IV Lopressor/Cardizem as needed. Cont Eliquis 5 bid, Lipitor 40 qd 4. Hold lisinopril 10 mg QD pending hemodynamic and renal stability 5. Enteral feeds, DVT/GI prophylaxis 6. Follow up with Dr. Genaro Davila (cardiology at [place]) as outpatient. Consider cardiac PET or MRI to exclude cardiac involvement in sarcoidosis as outpatient
--- NOTE | 2019-10-22 11:11 | PN ---
Progress Note (short form) - Note Progress Note: PULMONARY Vented, awake, following commands. Vented on volume assist control with 60% FiO2, PEEP 10. Vital Signs Period Temp Pulse Resp BP Sys/[place] Pulse Ox Last 24 Hr 97.5 F-98.9 F 74-119 13-25 111-150/73-104 97-100 Intake & Output 10/19/19 10/20/19 10/21/19 10/22/19 23:59 23:59 23:59 23:59 Intake Total 1407.6 1165 1640 780 Output Total 1300 3000 3100 880 Balance 107.6 -1835 -1460 -100 Weight 122.334 kg 122.271 kg 122.016 kg 116.755 kg Gen: vented, awake Heart: RRR Lung: scattered rhonchi Abd: soft, nontender Ext: trace edema CBC, BMP 10/21/19 07:43 10/21/19 07:43 Active Medications Amino Acids (Prosource No Carb Liquid Pkt) 30 ml PO BID@0800,1730 [facility] Last Admin: 10/22/19 08:42 Dose: 30 ml Documented by: Apixaban (Eliquis -) 5 mg NGT BID [facility] Last Admin: 10/22/19 09:00 Dose: 5 mg Documented by: Atorvastatin Calcium (Lipitor -) 40 mg PO [facility] Last Admin: 10/21/19 22:06 Dose: 40 mg Documented by: Chlorhexidine Gluconate (Hibiclens For Decolonization -) 1 applic TP [facility] Last Admin: 10/21/19 22:06 Dose: 1 applic Documented by: Chlorhexidine Gluconate (Peridex -) 15 ml MM BID [facility] Last Admin: 10/22/19 09:00 Dose: 15 ml Documented by: Diltiazem HCl (Cardizem -) 90 mg PO Q6HPO [facility] Last Admin: 10/22/19 06:10 Dose: 90 mg Documented by: Fentanyl (Duragesic 25mcg Patch -) 1 patch TD Q72H [facility] Stop: 10/26/19 08:18 Last Admin: 10/22/19 08:41 Dose: 1 patch Documented by: Furosemide (Lasix Injection -) 40 mg IVPUSH BID@0600,1400 [facility] Last Admin: 10/22/19 06:09 Dose: 40 mg Documented by: Insulin Aspart (Novolog Vial Sliding Scale -) 1 vial SQ TIDAC [facility]; Protocol Last Admin: 10/22/19 06:22 Dose: 2 units Documented by: Metoprolol Tartrate (Lopressor -) 50 mg PO TID [facility] Last Admin: 10/22/19 06:09 Dose: 50 mg Documented by: Metoprolol Tartrate (Lopressor Injection -) 5 mg IVPUSH Q4H PRN PRN Reason: HYPERTENSION Last Admin: 10/21/19 10:12 Dose: 5 mg Documented by: Miscellaneous (Duragesic Patch Waste) 1 each TD PRN PRN PRN Reason: PAIN Pantoprazole Sodium (Protonix Iv) 40 mg IVPUSH DAILY [facility] Last Admin: 10/22/19 09:00 Dose: 40 mg Documented by: Polyethylene Glycol (Miralax (For Daily Use) -) 17 gm NGT HS@2100 [facility] Last Admin: 10/21/19 22:07 Dose: 17 gm Documented by: Scopolamine HBr (Transderm-Scop -) 1 patch TD Q72H [facility] Last Admin: 10/20/19 21:59 Dose: 1 patch Documented by: A/P Acute Hypoxic and Hypercapneic Respiratory Failure s/p Tracheostomy UTI Pneumonia ARDS Septic Shock Acute on Chronic Diastolic Heart Failure Volume Overload resolving Atrial Fibrillation/Flutter with RVR h/o COVID19 Sarcoidosis Morbid Obesity EMMY/OHS Anemia - completed antibiotics - off pressors, maintain MAP > 65 - rate control - continue anticoagulation - continue lasix - monitor urine output, creatinine - taper FiO2, PEEP to keep SpO2 >90% - spontaneous breathing trials as tolerated, placed on SIMV - enteral feeds - DVT/GI prophylaxis
--- NOTE | 2019-10-22 14:11 | CONSULT ---
Admitting History and Physical - Primary Care Physician PCP: Ravindra Maya - Admission History of Present Illness: 53 yo m w/ dDHF, afib/flutter on eliquis, sarcoidosis, guillan barre, morbid obesity, tracheostomy 2/2 respiratory failure s/p reversal comes into the ed c/o worsening SOB 09/26, was SOB and hypoxic, required intubation and pressors. Percutaneous tracheostomy 10/13 Acute Hypoxic and Hypercapneic Respiratory Failure S/P Trach UTI Pneumonia ARDS Septic Shock Acute on Chronic Diastolic Heart Failure Volume Overload Atrial Fibrillation/Flutter with RVR h/o COVID19 Sarcoidosis Morbid Obesity EMMY/OHS Anemia Seen last by me 09/17/2019-Tolerating reg diet/thin liquids. Voice/swallowing/cognition much improved and all judged to be functional [place] [facility] [place] re-intubations over hospitalizations. Laboratory Tests 05/27/19 08/25/19 09/27/19 11:00 05:45 05:43 Adenovirus (PCR) Negative COVID-19 (JAKUB) Not detected Not detected Human Metapneumovir PCR Negative Influenza A (H1) PCR Negative Influenza B (RT-PCR) Negative Parainfluenza 1 (PCR) Negative Parainfluenza 2 (PCR) Negative Parainfluenza 3 (PCR) Negative RSV Type A (PCR) Negative RSV Type B (PCR) Negative Rhinovirus (PCR) Negative Selected Entries 10/18/19 10/21/19 10/21/19 06:00 00:00 00:23 Skin Risk Level Supper Total Score - Skin Risk Assessment Temperature Pulse Rate Respiratory 26 H 24 H Rate Respiratory Effort O2 Sat by Pulse 96 Oximetry (%) Oxygen Delivery Method Fraction of Inspired Oxygen (FIO2) Weight 269 lb 4.8 oz 10/21/19 10/21/19 10/21/19 02:00 03:15 03:49 Skin Risk Level Supper Total Score - Skin Risk Assessment Temperature Pulse Rate Respiratory 25 H 24 H Rate Respiratory Effort O2 Sat by Pulse 96 96 Oximetry (%) Oxygen Delivery Method Fraction of Inspired Oxygen (FIO2) Weight 10/21/19 10/21/19 10/21/19 04:00 04:25 06:00 Skin Risk Level Supper Total Score - Skin Risk Assessment Temperature Pulse Rate Respiratory 29 H 23 H 23 H Rate Respiratory Effort O2 Sat by Pulse Oximetry (%) Oxygen Delivery Method Fraction of Inspired Oxygen (FIO2) Weight 10/21/19 10/21/19 10/21/19 08:00 08:38 08:40 Skin Risk Level Supper Total Score - Skin Risk Assessment Temperature Pulse Rate Respiratory 24 H 21 H Rate Respiratory Effort O2 Sat by Pulse 95 95 Oximetry (%) Oxygen Delivery Method Fraction of Inspired Oxygen (FIO2) Weight 10/21/19 10/21/19 10/21/19 09:00 10:00 11:49 Skin Risk Level Supper NPO Total Score - Skin Risk Assessment Temperature Pulse Rate Respiratory 22 H 24 H 21 H Rate Respiratory Effort O2 Sat by Pulse Oximetry (%) Oxygen Delivery Method Fraction of Inspired Oxygen (FIO2) Weight 10/21/19 10/21/19 10/21/19 14:00 15:49 16:00 Skin Risk Level Supper Total Score - Skin Risk Assessment Temperature Pulse Rate Respiratory 22 H 25 H 24 H Rate Respiratory Effort O2 Sat by Pulse 97 Oximetry (%) Oxygen Delivery Method Fraction of Inspired Oxygen (FIO2) Weight 10/21/19 10/21/19 10/21/19 18:00 20:00 20:10 Skin Risk Level Supper Total Score - Skin Risk Assessment Temperature Pulse Rate Respiratory 24 H 25 H 24 H Rate Respiratory Effort O2 Sat by Pulse 97 100 Oximetry (%) Oxygen Delivery Method Fraction of Inspired Oxygen (FIO2) Weight 10/21/19 10/21/19 10/21/19 20:58 21:07 22:00 Skin Risk Level Supper Total Score - Skin Risk Assessment Temperature Pulse Rate Respiratory 25 H 24 H 13 Rate Respiratory Effort O2 Sat by Pulse 98 100 99 Oximetry (%) Oxygen Delivery Method Fraction of Inspired Oxygen (FIO2) Weight 10/22/19 10/22/19 10/22/19 00:00 00:12 02:00 Skin Risk Level Supper Total Score - Skin Risk Assessment Temperature 98.2 F Pulse Rate 83 117 H Respiratory 20 20 23 H Rate Respiratory Effort O2 Sat by Pulse 100 100 100 Oximetry (%) Oxygen Delivery Method Fraction of 60 Inspired Oxygen (FIO2) Weight 10/22/19 10/22/19 10/22/19 04:00 04:18 06:00 Skin Risk Level Supper Total Score - Skin Risk Assessment Temperature 98.1 F Pulse Rate 118 H 112 H 116 H Respiratory 24 H 22 H 16 Rate Respiratory Effort O2 Sat by Pulse 100 100 100 Oximetry (%) Oxygen Delivery Mechanical Method Ventilator Fraction of 60 Inspired Oxygen (FIO2) Weight 257 lb 6.4 oz 10/22/19 10/22/19 10/22/19 08:00 08:10 09:00 Skin Risk Level Supper Total Score - Skin Risk Assessment Temperature 97.5 F L Pulse Rate 93 H 77 Respiratory 20 23 H Rate Respiratory Non-Labored Effort O2 Sat by Pulse 99 100 99 Oximetry (%) Oxygen Delivery Mechanical Method Ventilator Fraction of 60 60 Inspired Oxygen (FIO2) Weight 10/22/19 10/22/19 10/22/19 10:00 11:00 12:00 Skin Risk Level High Risk Supper Total Score - 12 Skin Risk Assessment Temperature 97.6 F Pulse Rate 94 H 109 H 108 H Respiratory 20 18 18 Rate Respiratory Effort O2 Sat by Pulse 98 Oximetry (%) Oxygen Delivery Method Fraction of Inspired Oxygen (FIO2) Weight Laboratory Tests 10/18/19 10/20/19 10/21/19 18:28 06:13 07:43 WBC 10.6 H 9.2 9.6 History Source: Patient Limitations to Obtaining History: Clinical Condition (intubated, cuff inflated) - Past Medical History Cardiovascular: Yes: AFIB, Other (A flutter ) Pulmonary: Yes: O2 Dependent, Previously Intubated, Other (trach reversed) Gastrointestinal: Yes: Other (s/p PEG) Renal/: Yes: Renal Inusuff Endocrine: Yes: Diabetes Mellitus - Smoking History Smoking history: Former smoker Have you smoked in the past 12 months: No If you are a former smoker, when did you quit?: 25 yrs ago - Alcohol/Substance Use Hx Alcohol Use: No History - Admission Reason For Visit: ACUTE DECOMPENSATED HEART FAILURE - Diagnostics X-ray: Report Reviewed - General Mental Status: Alert and Oriented, Awake and Alert, Able to Follow Commands Attention: Intact Ability to Follow Directions: Good Head/Neck Control: Good - Hearing Hearing: Functional Speech Evaluation - Communication Primary Language: BOLIVIAN Secondary Language: [place]ORE[place] Communication: Yes: Simple Responses (intubated,mouths words, speaks over cuff) - Speech Characteristics Voice Loudness: Normal Voice Pitch: Yes: Normal Voice Phonatory-based Quality: Yes: Normal, Vocal Wetness (intermittent) Articulation: Yes: Precise - Language/Auditory Comprehension Follows: Yes: 1 Stage Simple Commands Observation: Able to respond to yes/no queries: Yes, Yes/No Confusion: No, Comprehends Conversational Speech: Yes - Swallow Evaluation/Bedside Assessment Current Nutritional Intake: NPO Oral Secretions: Yes: WFL Dentition: Yes: Adequate Facial Symmetry at Rest: Symmetrical Lingual Movement: Normal, Symmetric Lingual Speed of Movement: Normal Lingual Movement Strgth Against Opposition: Normal Lingual Movement Characteristics: Normal Laryngeal Movement: Reduced Excursion, Labored,delay initiation Labial Seal: WFL Oral Prep Time: WFL A-P Transit: WFL Pocketing: None Timing of Swallow: Delayed Coughing/Throat Clear: No (2 1/2 tsp trials of applesauce) Recommendations - Speech Evaluation, Impression/Plan Impression: Vented, awake, able to speak over cuff with strong voice and cough, intermittent vocal wetness. Swallow delayed, reduced excursion likely related to new trach. - Dysphagia Impressions/Plan Dysphagia Impressions: Risk of Aspiration, Ongoing Evaluation *Silent aspiration: cannot be R/O at bedside Recommendations: Modified Barium Swallow (following PMV use/tolerance), Passy [place] Valve - Recommendations Diet Consistency: NPO Medication Administration: Crushed with applesauce (1/2 tsp, encourage 2-3 swallows per trial to clear residue) Liquids: NPO
--- NOTE | 2019-10-22 15:43 | CONSULT ---
Passy-Aranza Valve Eval - Assessment Prior to PMV Placement Patient and/or family educated re PMV: Yes Mental Status: Awake, Alert, Attempting to Communicate (speaking over cuff- Partially deflated?) O2 Sat by Pulse Oximetry (%): 100 Secretions: Small Amount Patient on Ventilator: Yes Patient on Trach Collar: No Suctioned: Yes Cuff Status: Inflated Passy-Narberth Valve in Place - Speech Characteristics Able to Phonate with PMV in place: Yes Voice Loudness: Normal Voice Pitch: Normal Voice Phonatory-based Quality: Vocal Wetness (intermittent. No coughing reflexively but able to cough/clear secretions with verbal cues) Speech Pattern: Impaired Speech Clarity: < 75% Nasal Resonance: Normal Articulation: Imprecise Rate of Speech: Too Fast - Assessment with PMV in Place O2 Sat by Pulse Oximetry (%): 100 Change in Mental Status with PMV in Place: No Length of time with PMV in place: 20 min - Recommendations Recommendations: PMV as tolerated, Remove PMV while sleeping, Monitor Pulse Ox PMV on, Supervision while PMV on, Other (Intermittent vocal wetness with aspiration risk. Use of PMV with increase upper airway function, secretion mgmt,sensation, improve communication, speech and swallowing function and will expedite weaning from ventilator. Suggest PMV use for 30 min intervals, as tolerated. Encourage pt to cough to clear airway and swallow hard. Monitor tolerance, vocal wetness, secretion mgmt, fever, wbc. If tolerates tomorrow, MBS maybe Sunday.)
[2019-10-22] MEDS: ATORVASTATIN CA 40 MG TABLET (FP) PO SCH (22:37)
[2019-10-22] MEDS: CHLORHEXIDINE GLUCONATE 4% CLEANSER FOR DECOLONIZATION TP SCH (22:37)
[2019-10-22] MEDS: POLYETHYLENE GLYCOL 3350 119 GM BTL NGT SCH (22:38)
[2019-10-23] MEDS: dilTIAZem HCL 60 MG TABLET PO SCH ×4 (00:15→18:02)
[2019-10-23] MEDS: METOPROLOL TARTRATE 50 MG TABLET (FP) PO SCH ×3 (05:51→21:40)
[2019-10-23] MEDS: FUROSEMIDE 40 MG/4 ML INJECTABLE VIAL IVPUSH SCH ×2 (05:51→14:30)
[2019-10-23] MEDS: INSULIN SLIDING SCALE (NOVOLOG) 1 VIAL SQ SCH ×3 (06:07→18:00)
--- NOTE | 2019-10-23 08:55 | PN ---
Progress Note, Physician - Current Medication List Current Medications: Active Medications Apixaban (Eliquis -) 5 mg NGT BID [facility] Last Admin: 10/22/19 22:37 Dose: 5 mg Documented by: Atorvastatin Calcium (Lipitor -) 40 mg PO HS [facility] Last Admin: 10/22/19 22:37 Dose: 40 mg Documented by: Chlorhexidine Gluconate (Hibiclens For Decolonization -) 1 applic TP HS [facility] Last Admin: 10/22/19 22:37 Dose: 1 applic Documented by: Chlorhexidine Gluconate (Peridex -) 15 ml MM BID [facility] Last Admin: 10/22/19 22:38 Dose: 15 ml Documented by: Diltiazem HCl (Cardizem -) 90 mg PO Q6HPO [facility] Last Admin: 10/23/19 05:51 Dose: 90 mg Documented by: Fentanyl (Duragesic 25mcg Patch -) 1 patch TD Q72H [facility] Stop: 10/26/19 08:18 Last Admin: 10/22/19 08:41 Dose: 1 patch Documented by: Furosemide (Lasix Injection -) 40 mg IVPUSH BID@0600,1400 [facility] Last Admin: 10/23/19 05:51 Dose: 40 mg Documented by: Insulin Aspart (Novolog Vial Sliding Scale -) 1 vial SQ TIDAC [facility]; Protocol Last Admin: 10/23/19 06:07 Dose: Not Given Documented by: Metoprolol Tartrate (Lopressor -) 50 mg PO TID [facility] Last Admin: 10/23/19 05:51 Dose: 50 mg Documented by: Metoprolol Tartrate (Lopressor Injection -) 5 mg IVPUSH Q4H PRN PRN Reason: HYPERTENSION Last Admin: 10/21/19 10:12 Dose: 5 mg Documented by: Miscellaneous (Duragesic Patch Waste) 1 each TD PRN PRN PRN Reason: PAIN Pantoprazole Sodium (Protonix Iv) 40 mg IVPUSH DAILY [facility] Last Admin: 10/22/19 09:00 Dose: 40 mg Documented by: Polyethylene Glycol (Miralax (For Daily Use) -) 17 gm NGT HS@2100 [facility] Last Admin: 10/22/19 22:38 Dose: 17 gm Documented by: Scopolamine HBr (Transderm-Scop -) 1 patch TD Q72H [facility] Last Admin: 10/20/19 21:59 Dose: 1 patch Documented by: - Objective Vital Signs: Vital Signs Temperature 97.8 F 10/23/19 02:00 Pulse Rate 89 10/23/19 06:00 Respiratory Rate 24 H 10/23/19 06:10 Blood Pressure 127/88 10/23/19 06:00 O2 Sat by Pulse Oximetry (%) 100 10/23/19 06:10 Cardiovascular: Yes: S1, S2 Respiratory: Yes: Mechanically Ventilated Gastrointestinal: Yes: Normal Bowel Sounds, Soft Labs: CBC, BMP 10/21/19 07:43 10/21/19 07:43 INR, PTT INR 1.18 (0.83-1.09) H 10/14/19 05:30 Problem List - Problems (1) Acute respiratory failure with hypoxia and hypercapnia Assessment/Plan: VENT SETTING PER PULM MONITOR Code(s): J96.01 - ACUTE RESPIRATORY FAILURE WITH HYPOXIA; J96.02 - ACUTE RESPIRATORY FAILURE WITH HYPERCAPNIA (2) Type 2 diabetes mellitus Assessment/Plan: BGM Code(s): E11.9 - TYPE 2 DIABETES MELLITUS WITHOUT COMPLICATIONS Qualifiers: Diabetes mellitus care home insulin use: without 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 use Diabetes mellitus complication detail: with chronic kidney disease Chronic kidney disease stage: stage 2 (mild) (3) Sepsis Assessment/Plan: OFF ABX MONITOR Microbiology 09/28/19 16:35 Sputum - Endotrachea Suction/Ventilator Gram Stain - Final 09/28/19 16:35 Sputum - Endotrachea Suction/Ventilator Sputum Culture - Final Escherichia Coli Esbl [employer] Mr S Aureus 09/27/19 05:20 Blood - Peripheral Venous Blood Culture - Final NO GROWTH AFTER 5 DAYS INCUBATION 09/27/19 05:20 Blood - Peripheral Venous Blood Culture - Final NO GROWTH AFTER 5 DAYS INCUBATION 09/28/19 16:35 Urine - Urine Andrews Legionella Antigen - Final 09/28/19 16:35 Urine - Urine Andrews Streptococcus pneumoniae Antigen (M - Final 09/27/19 06:09 Urine - Urine Clean Catch Urine Culture - Final Enterobacter Aerogenes Code(s): A41.9 - SEPSIS, UNSPECIFIED ORGANISM (4) Atrial fibrillation and flutter Assessment/Plan: ON ELIQUIS-METOPROLOL AND CARDIZEM Code(s): I48.91 - UNSPECIFIED ATRIAL FIBRILLATION; I48.92 - UNSPECIFIED ATRIAL FLUTTER (5) CHF exacerbation Assessment/Plan: ON IV LASIX CARDIO ON BOARD Code(s): I50.9 - HEART FAILURE, UNSPECIFIED (6) Pneumonia Assessment/Plan: OFF ABX Code(s): J18.9 - PNEUMONIA, UNSPECIFIED ORGANISM Qualifiers: Pneumonia type: due to unspecified organism
[2019-10-23] MEDS: CHLORHEXIDINE GLUCONATE 0.12% 15ML CUP MM SCH ×2 (09:58→21:40)
[2019-10-23] MEDS: PANTOPRAZOLE SODIUM 40 MG VIAL IVPUSH SCH (09:58)
[2019-10-23] MEDS: APIXABAN 5 MG TABLET NGT SCH ×2 (09:58→21:39)
--- NOTE | 2019-10-23 10:18 | PN ---
Progress Note, Physician History of Present Illness: Off pressors. Vented and arousable on volume assist control with 50% FiO2, PEEP 8. Remains in aflutter with variable conduction. - Current Medication List Current Medications: Active Medications Apixaban (Eliquis -) 5 mg NGT BID [facility] Last Admin: 10/23/19 09:58 Dose: 5 mg Documented by: Atorvastatin Calcium (Lipitor -) 40 mg PO HS [facility] Last Admin: 10/22/19 22:37 Dose: 40 mg Documented by: Chlorhexidine Gluconate (Hibiclens For Decolonization -) 1 applic TP [facility] Last Admin: 10/22/19 22:37 Dose: 1 applic Documented by: Chlorhexidine Gluconate (Peridex -) 15 ml MM BID [facility] Last Admin: 10/23/19 09:58 Dose: 15 ml Documented by: Diltiazem HCl (Cardizem -) 90 mg PO Q6HPO [facility] Last Admin: 10/23/19 05:51 Dose: 90 mg Documented by: Fentanyl (Duragesic 25mcg Patch -) 1 patch TD Q72H [facility] Stop: 10/26/19 08:18 Last Admin: 10/22/19 08:41 Dose: 1 patch Documented by: Furosemide (Lasix Injection -) 40 mg IVPUSH BID@0600,1400 [facility] Last Admin: 10/23/19 05:51 Dose: 40 mg Documented by: Insulin Aspart (Novolog Vial Sliding Scale -) 1 vial SQ TIDAC [facility]; Protocol Last Admin: 10/23/19 06:07 Dose: Not Given Documented by: Metoprolol Tartrate (Lopressor -) 50 mg PO TID [facility] Last Admin: 10/23/19 05:51 Dose: 50 mg Documented by: Metoprolol Tartrate (Lopressor Injection -) 5 mg IVPUSH Q4H PRN PRN Reason: HYPERTENSION Last Admin: 10/21/19 10:12 Dose: 5 mg Documented by: Miscellaneous (Duragesic Patch Waste) 1 each TD PRN PRN PRN Reason: PAIN Pantoprazole Sodium (Protonix Iv) 40 mg IVPUSH DAILY [facility] Last Admin: 10/23/19 09:58 Dose: 40 mg Documented by: Polyethylene Glycol (Miralax (For Daily Use) -) 17 gm NGT HS@2100 [facility] Last Admin: 10/22/19 22:38 Dose: 17 gm Documented by: Scopolamine HBr (Transderm-Scop -) 1 patch TD Q72H [facility] Last Admin: 10/20/19 21:59 Dose: 1 patch Documented by: - Objective Vital Signs: Vital Signs Temperature 97.8 F 10/23/19 02:00 Pulse Rate 74 10/23/19 08:58 Respiratory Rate 21 H 10/23/19 09:00 Blood Pressure 94/66 10/23/19 08:00 O2 Sat by Pulse Oximetry (%) 100 10/23/19 09:00 Constitutional: Yes: No Distress, Calm Neck: Yes: Other (Tracheostomy) Cardiovascular: Yes: Pulse Irregular Respiratory: Yes: Mechanically Ventilated, Rhonchi Gastrointestinal: Yes: Normal Bowel Sounds, Soft, Abdomen, Obese Genitourinary: Yes: Andrews Present Edema: No Integumentary: Yes: Venous Stasis Changes Labs: CBC, BMP 10/21/19 07:43 10/21/19 07:43 INR, PTT INR 1.18 (0.83-1.09) H 10/14/19 05:30 - ....Imaging EKG: Report Reviewed (Tele: Rate-controlled aflutter) Problem List - Problems (1) Acute respiratory failure with hypoxia and hypercapnia Code(s): J96.01 - ACUTE RESPIRATORY FAILURE WITH HYPOXIA; J96.02 - ACUTE RESPIRATORY FAILURE WITH HYPERCAPNIA (2) Acute decompensated heart failure Code(s): I50.9 - HEART FAILURE, UNSPECIFIED (3) Acute hypercapnic respiratory failure due to obstructive sleep apnea Code(s): J96.02 - ACUTE RESPIRATORY FAILURE WITH HYPERCAPNIA; G47.33 - OBS TRUCTIVE SLEEP APNEA (ADULT) (PEDIATRIC) (4) Atrial fibrillation and flutter Code(s): I48.91 - UNSPECIFIED ATRIAL FIBRILLATION; I48.92 - UNSPECIFIED ATRIAL FLUTTER (5) Sarcoidosis of other sites Code(s): D86.89 - SARCOIDOSIS OF OTHER SITES (6) Sleep apnea Code(s): G47.30 - SLEEP APNEA, UNSPECIFIED Qualifiers: Sleep apnea type: obstructive Qualified Code(s): G47.33 - Obstructive sleep apnea (adult) (pediatric) (7) Type 2 diabetes mellitus Code(s): E11.9 - TYPE 2 DIABETES MELLITUS WITHOUT COMPLICATIONS Qualifiers: Diabetes mellitus fdc insulin use: without bed bug exterminator use Diabetes mellitus complication detail: with chronic kidney disease Chronic kidney disease stage: stage 2 (mild) Assessment/Plan 05/01/2019 Normal LV and RV size and fxn, tr TR 03/14/2019 Normal LV size and fxn, no thrombus ADEEL, mild-mod dilated and HK RV, tr MR, mild-mod TR, tr ME, trace pericardial effusion 1. Acute hypoxic and hypercapneic respiratory failure s/p tracheostomy on mechanical ventilation 2. Pneumonia, post septic shock and ARDS 3. Sarcoidosis confirmed by skin biopsy 4. OSAS/OHS 5. Persistent Atrial flutter/AF with intermittent periods of rapid ventricular response 6. Acute on chronic diastolic heart failure 7. Acute on CKD with hyperkalemia 8. Type 2 DM 9. Anemia 10. History of COVID 19 PLAN: 1. Vent with taper FiO2, PEEP to keep SpO2 >90%, spontaneous breathing trials as tolerated, placed on SIMV 2. Lasix 40 IV bid with monitoring diuretic response, renal function and electrolytes 3. Rate-control with oral Cardizem 90 mg mg QID, Lopressor 50 mg TID, IV Lopressor/Cardizem as needed. Cont Eliquis 5 bid, Lipitor 40 qd 4. Hold lisinopril 10 mg QD pending hemodynamic and renal stability 5. Enteral feeds, DVT/GI prophylaxis 6. Follow up with Dr. Genaro Davila (cardiology at [place]) as outpatient. Consider cardiac PET or MRI to exclude cardiac involvement in sarcoidosis as outpatient
--- NOTE | 2019-10-23 13:26 | PN ---
Progress Note (short form) - Note Progress Note: Patient seen and examined in the SD-ICU. Vented via Trach, awake and interactive. Transient increase in vent requirements overnight. OBJECTIVE: Intake & Output 10/20/19 10/21/19 10/22/19 10/23/19 23:59 23:59 23:59 23:59 Intake Total 1165 1640 1115 Output Total 3000 3100 1630 800 Balance -1835 -1460 -515 -800 Weight 269 lb 9 oz 269 lb 257 lb 6.4 oz 254 lb 8 oz Last Vital Signs Temp Pulse Resp BP Pulse Ox 97.8 F 74 21 H 94/66 100 10/23/19 02:00 10/23/19 08:58 10/23/19 12:05 10/23/19 08:00 10/23/19 12:06 Active Medications Apixaban (Eliquis -) 5 mg NGT BID [facility] Last Admin: 10/23/19 09:58 Dose: 5 mg Documented by: Atorvastatin Calcium (Lipitor -) 40 mg PO [facility] Last Admin: 10/22/19 22:37 Dose: 40 mg Documented by: Chlorhexidine Gluconate (Hibiclens For Decolonization -) 1 applic TP [facility] Last Admin: 10/22/19 22:37 Dose: 1 applic Documented by: Chlorhexidine Gluconate (Peridex -) 15 ml MM BID [facility] Last Admin: 10/23/19 09:58 Dose: 15 ml Documented by: Diltiazem HCl (Cardizem -) 90 mg PO Q6HPO [facility] Last Admin: 10/23/19 13:00 Dose: 90 mg Documented by: Fentanyl (Duragesic 25mcg Patch -) 1 patch TD Q72H [facility] Stop: 10/26/19 08:18 Last Admin: 10/22/19 08:41 Dose: 1 patch Documented by: Furosemide (Lasix Injection -) 40 mg IVPUSH BID@0600,1400 [facility] Last Admin: 10/23/19 05:51 Dose: 40 mg Documented by: Insulin Aspart (Novolog Vial Sliding Scale -) 1 vial SQ TIDAC [facility]; Protocol Last Admin: 10/23/19 12:00 Dose: Not Given Documented by: Metoprolol Tartrate (Lopressor -) 50 mg PO TID [facility] Last Admin: 10/23/19 05:51 Dose: 50 mg Documented by: Metoprolol Tartrate (Lopressor Injection -) 5 mg IVPUSH Q4H PRN PRN Reason: HYPERTENSION Last Admin: 10/21/19 10:12 Dose: 5 mg Documented by: Miscellaneous (Duragesic Patch Waste) 1 each TD PRN PRN PRN Reason: PAIN Pantoprazole Sodium (Protonix Iv) 40 mg IVPUSH DAILY [facility] Last Admin: 10/23/19 09:58 Dose: 40 mg Documented by: Polyethylene Glycol (Miralax (For Daily Use) -) 17 gm NGT HS@2100 [facility] Last Admin: 10/22/19 22:38 Dose: 17 gm Documented by: Scopolamine HBr (Transderm-Scop -) 1 patch TD Q72H [facility] Last Admin: 10/20/19 21:59 Dose: 1 patch Documented by: Gen: Vented, awake Heart: RRR Lung: scattered rhonchi Abd: soft, nontender Ext: no edema Laboratory Results - last 24 hr 10/22/19 10/23/19 10/23/19 15:50 06:06 12:01 POC Glucometer 186 132 125 ASSESSMENT AND PLAN: Acute Hypoxic and Hypercapneic Respiratory Failure S/P Trach UTI Pneumonia ARDS Septic Shock Acute on Chronic Diastolic Heart Failure Volume Overload Atrial Fibrillation/Flutter with RVR h/o COVID19 Sarcoidosis Morbid Obesity EMMY/OHS Anemia - Eliquis - Off antibiotics per ID - rate control - continue anticoagulation - monitor urine output, creatinine - continue volume assist control - taper FiO2, PEEP to keep SpO2 >90% : Wean trials & PMV as tolerated - enteral feeds - GI prophylaxis Dr Maya
--- NOTE | 2019-10-23 14:35 | PN ---
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 Progress Note: Selected Entries 10/22/19 10/22/19 10/22/19 00:00 00:12 02:00 Breakfast Temperature 98.2 F Pulse Rate 83 117 H Respiratory 20 20 23 H Rate Respiratory Effort Blood Pressure 111/76 121/83 O2 Sat by Pulse 100 100 100 Oximetry (%) Oxygen Delivery Method Fraction of 60 Inspired Oxygen (FIO2) 10/22/19 10/22/19 10/22/19 04:00 04:18 06:00 Breakfast Temperature 98.1 F Pulse Rate 118 H 112 H 116 H Respiratory 24 H 22 H 16 Rate Respiratory Effort Blood Pressure 134/93 150/93 O2 Sat by Pulse 100 100 100 Oximetry (%) Oxygen Delivery Mechanical Method Ventilator Fraction of 60 Inspired Oxygen (FIO2) 10/22/19 10/22/19 10/22/19 08:00 08:10 09:00 Breakfast Temperature 97.5 F L Pulse Rate 93 H 77 Respiratory 20 23 H Rate Respiratory Non-Labored Effort Blood Pressure 136/73 O2 Sat by Pulse 99 100 99 Oximetry (%) Oxygen Delivery Mechanical Trach Collar Method Ventilator Fraction of 60 60 Inspired Oxygen (FIO2) 10/22/19 10/22/19 10/22/19 10:00 11:00 12:00 Breakfast Temperature 97.6 F Pulse Rate 94 H 109 H 108 H Respiratory 20 18 24 H Rate Respiratory Effort Blood Pressure 128/74 137/92 135/90 O2 Sat by Pulse 98 100 Oximetry (%) Oxygen Delivery Method Fraction of 60 Inspired Oxygen (FIO2) 10/22/19 10/22/19 10/22/19 14:56 15:15 15:43 Breakfast Temperature 97.8 F Pulse Rate 106 H Respiratory 18 Rate Respiratory Effort Blood Pressure 139/88 O2 Sat by Pulse 96 100 100 Oximetry (%) Oxygen Delivery Method Fraction of Inspired Oxygen (FIO2) 10/22/19 10/22/19 10/22/19 15:54 16:00 16:52 Breakfast Temperature Pulse Rate 85 Respiratory 24 H 21 H 21 H Rate Respiratory Effort Blood Pressure 128/74 O2 Sat by Pulse 100 100 Oximetry (%) Oxygen Delivery Method Fraction of 60 60 Inspired Oxygen (FIO2) 10/22/19 10/22/19 10/22/19 18:00 20:00 21:08 Breakfast Temperature 97.2 F L Pulse Rate 101 H 124 H Respiratory 22 H 24 H 24 H Rate Respiratory Effort Blood Pressure 113/80 133/89 O2 Sat by Pulse 100 100 100 Oximetry (%) Oxygen Delivery Method Fraction of 60 Inspired Oxygen (FIO2) 10/22/19 10/23/19 10/23/19 22:00 00:00 00:32 Breakfast Temperature 98.1 F Pulse Rate 124 H 134 H Respiratory 21 H 23 H 19 Rate Respiratory Non-Labored Effort Blood Pressure 147/97 137/95 O2 Sat by Pulse 100 100 100 Oximetry (%) Oxygen Delivery Mechanical Method Ventilator Fraction of 60 60 Inspired Oxygen (FIO2) 10/23/19 10/23/19 10/23/19 00:41 02:00 04:00 Breakfast Temperature 97.8 F Pulse Rate 129 H 78 99 H Respiratory 16 19 20 Rate Respiratory Effort Blood Pressure 107/70 103/64 92/58 L O2 Sat by Pulse 100 100 100 Oximetry (%) Oxygen Delivery Method Fraction of Inspired Oxygen (FIO2) 10/23/19 10/23/19 10/23/19 04:36 06:00 06:10 Breakfast Temperature Pulse Rate 89 Respiratory 24 H 12 24 H Rate Respiratory Effort Blood Pressure 127/88 O2 Sat by Pulse 100 100 100 Oximetry (%) Oxygen Delivery Method Fraction of 60 60 Inspired Oxygen (FIO2) 10/23/19 10/23/19 10/23/19 08:00 08:58 09:00 Breakfast Temperature Pulse Rate 74 74 Respiratory 21 H 21 H 21 H Rate Respiratory Non-Labored Effort Blood Pressure 94/66 O2 Sat by Pulse 210 H 100 100 Oximetry (%) Oxygen Delivery Mechanical Mechanical Method Ventilator Ventilator Fraction of 60 60 Inspired Oxygen (FIO2) 10/23/19 10/23/19 10/23/19 10:00 12:05 12:06 Breakfast NPO Temperature Pulse Rate Respiratory 21 H Rate Respiratory Effort Blood Pressure O2 Sat by Pulse 100 100 100 Oximetry (%) Oxygen Delivery Mechanical Method Ventilator Fraction of 50 50 50 Inspired Oxygen (FIO2) Laboratory Tests 10/21/19 07:43 WBC 9.6 PMV tolerated well yesterday, with cuff deflated, o2 saturation at 100%, good voicing with intermittent vocal wetness. Concern for PMV use today by medical team as pt is fragile medically with h/o recurrent intubation. PMV on hold per PMD Suggest- PMV, as indicated, when medically stable MBS to r/o aspiration once PMV used daily. RD regarding nutrition intake- NGT?
[2019-10-23] MEDS: ATORVASTATIN CA 40 MG TABLET (FP) PO SCH (21:39)
[2019-10-23] MEDS: POLYETHYLENE GLYCOL 3350 119 GM BTL NGT SCH (21:40)
[2019-10-23] MEDS: SCOPOLAMINE HYDROBROMIDE 1 PATCH PATCH.TD72 TD SCH (21:40)
[2019-10-23] MEDS: CHLORHEXIDINE GLUCONATE 4% CLEANSER FOR DECOLONIZATION TP SCH (21:40)
[2019-10-24] MEDS: dilTIAZem HCL 60 MG TABLET PO SCH ×4 (01:12→17:27)
[2019-10-24] MEDS: METOPROLOL TARTRATE 50 MG TABLET (FP) PO SCH ×3 (05:15→21:19)
[2019-10-24] MEDS: FUROSEMIDE 40 MG/4 ML INJECTABLE VIAL IVPUSH SCH ×2 (05:15→13:53)
[2019-10-24] MEDS: INSULIN SLIDING SCALE (NOVOLOG) 1 VIAL SQ SCH ×3 (06:04→17:30)
[2019-10-24 07:09] LABS: BASO % 1.3 % (0-2.0); EOS % 3.8 % (0-4.5); HEMATOCRIT 30.7 % (35.4-49); HEMOGLOBIN 9.9 GM/dL (11.7-16.9); MCH 25.1 pg (25.7-33.7); MCHC 32.4 g/dl (32.0-35.9); MEAN CELL VOLUME 77.5 fl (80-96); MEAN PLT VOLUME 7.8 fl (7.5-11.1); MONO % 11.1 % (3.8-10.2); NEUT % 77.8 % (42.8-82.8); PLATELET COUNT 400 K/MM3 (134-434); RBC 3.96 M/mm3 (4.00-5.60); RDW 18.7 % (11.9-15.9); WHITE BLOOD COUNT 6.9 K/mm3 (4.0-10.0)
[2019-10-24 07:12] LABS: ALBUMIN 2.6 g/dl (3.4-5.0); BILIRUBIN,TOTAL 0.9 mg/dL (0.2-1); BLOOD UREA NITROGEN 27.6 mg/dL (7-18); CALCIUM 8.9 mg/dL (8.5-10.1); POTASSIUM 4.1 mmol/L (3.5-5.1); TOT PROT 6.4 g/dl (6.4-8.2)
--- NOTE | 2019-10-24 09:58 | PN ---
Progress Note, Physician - Current Medication List Current Medications: Active Medications Apixaban (Eliquis -) 5 mg NGT BID [facility] Last Admin: 10/23/19 21:39 Dose: 5 mg Documented by: Atorvastatin Calcium (Lipitor -) 40 mg PO HS [facility] Last Admin: 10/23/19 21:39 Dose: 40 mg Documented by: Chlorhexidine Gluconate (Hibiclens For Decolonization -) 1 applic TP HS [facility] Last Admin: 10/23/19 21:40 Dose: 1 applic Documented by: Chlorhexidine Gluconate (Peridex -) 15 ml MM BID [facility] Last Admin: 10/23/19 21:40 Dose: 15 ml Documented by: Diltiazem HCl (Cardizem -) 90 mg PO Q6HPO [facility] Last Admin: 10/24/19 05:15 Dose: 90 mg Documented by: Fentanyl (Duragesic 25mcg Patch -) 1 patch TD Q72H [facility] Stop: 10/26/19 08:18 Last Admin: 10/22/19 08:41 Dose: 1 patch Documented by: Furosemide (Lasix Injection -) 40 mg IVPUSH BID@0600,1400 [facility] Last Admin: 10/24/19 05:15 Dose: 40 mg Documented by: Insulin Aspart (Novolog Vial Sliding Scale -) 1 vial SQ TIDAC [facility]; Protocol Last Admin: 10/24/19 06:04 Dose: Not Given Documented by: Metoprolol Tartrate (Lopressor -) 50 mg PO TID [facility] Last Admin: 10/24/19 05:15 Dose: 50 mg Documented by: Metoprolol Tartrate (Lopressor Injection -) 5 mg IVPUSH Q4H PRN PRN Reason: HYPERTENSION Last Admin: 10/21/19 10:12 Dose: 5 mg Documented by: Miscellaneous (Duragesic Patch Waste) 1 each TD PRN PRN PRN Reason: PAIN Pantoprazole Sodium (Protonix Iv) 40 mg IVPUSH DAILY [facility] Last Admin: 10/23/19 09:58 Dose: 40 mg Documented by: Polyethylene Glycol (Miralax (For Daily Use) -) 17 gm NGT HS@2100 [facility] Last Admin: 10/23/19 21:40 Dose: 17 gm Documented by: Scopolamine HBr (Transderm-Scop -) 1 patch TD Q72H [facility] Last Admin: 10/23/19 21:40 Dose: 1 patch Documented by: - Objective Vital Signs: Vital Signs Temperature 97.1 F L 10/24/19 06:00 Pulse Rate 90 10/24/19 07:45 Respiratory Rate 18 10/24/19 07:45 Blood Pressure 82/64 L 10/24/19 06:00 O2 Sat by Pulse Oximetry (%) 99 10/24/19 07:45 Labs: CBC, BMP 10/24/19 05:48 10/24/19 05:48 INR, PTT INR 1.18 (0.83-1.09) H 10/14/19 05:30 Problem List - Problems (1) Acute respiratory failure with hypoxia and hypercapnia Code(s): J96.01 - ACUTE RESPIRATORY FAILURE WITH HYPOXIA; J96.02 - ACUTE RESPIRATORY FAILURE WITH HYPERCAPNIA (2) Type 2 diabetes mellitus Code(s): E11.9 - TYPE 2 DIABETES MELLITUS WITHOUT COMPLICATIONS Qualifiers: Diabetes mellitus superintendent container terminal insulin use: without superintendent container terminal use Diabetes mellitus complication detail: with chronic kidney disease Chronic kidney disease stage: stage 2 (mild) (3) Sepsis Code(s): A41.9 - SEPSIS, UNSPECIFIED ORGANISM (4) Atrial fibrillation and flutter Code(s): I48.91 - UNSPECIFIED ATRIAL FIBRILLATION; I48.92 - UNSPECIFIED ATRIAL FLUTTER (5) CHF exacerbation Code(s): I50.9 - HEART FAILURE, UNSPECIFIED (6) Pneumonia Code(s): J18.9 - PNEUMONIA, UNSPECIFIED ORGANISM Qualifiers: Pneumonia type: due to unspecified organism
[2019-10-24] MEDS: PANTOPRAZOLE SODIUM 40 MG VIAL IVPUSH SCH (10:00)
[2019-10-24] MEDS: APIXABAN 5 MG TABLET NGT SCH ×2 (10:00→21:19)
[2019-10-24] MEDS: CHLORHEXIDINE GLUCONATE 0.12% 15ML CUP MM SCH ×2 (10:00→21:18)
--- NOTE | 2019-10-24 10:13 | PN ---
Progress Note (short form) - Note Progress Note: No acute cardiac events AFl, variable VR Vital Signs Temperature 97.1 F L 10/24/19 06:00 Pulse Rate 90 10/24/19 07:45 Respiratory Rate 18 10/24/19 07:45 Blood Pressure 82/64 L 10/24/19 06:00 O2 Sat by Pulse Oximetry (%) 99 10/24/19 07:45 Neck: Yes: Other (Tracheostomy) Cardiovascular: Yes: Pulse Irregular Respiratory: Yes: Mechanically Ventilated, Rhonchi Edema: No Integumentary: Yes: Venous Stasis Changes Labs: CBC, BMP 10/24/19 05:48 10/24/19 05:48 Active Medications Apixaban (Eliquis -) 5 mg NGT BID [facility] Last Admin: 10/23/19 21:39 Dose: 5 mg Documented by: Atorvastatin Calcium (Lipitor -) 40 mg PO [facility] Last Admin: 10/23/19 21:39 Dose: 40 mg Documented by: Chlorhexidine Gluconate (Hibiclens For Decolonization -) 1 applic TP [facility] Last Admin: 10/23/19 21:40 Dose: 1 applic Documented by: Chlorhexidine Gluconate (Peridex -) 15 ml MM BID [facility] Last Admin: 10/23/19 21:40 Dose: 15 ml Documented by: Diltiazem HCl (Cardizem -) 90 mg PO Q6HPO [facility] Last Admin: 10/24/19 05:15 Dose: 90 mg Documented by: Fentanyl (Duragesic 25mcg Patch -) 1 patch TD Q72H [facility] Stop: 10/26/19 08:18 Last Admin: 10/22/19 08:41 Dose: 1 patch Documented by: Furosemide (Lasix Injection -) 40 mg IVPUSH BID@0600,1400 [facility] Last Admin: 10/24/19 05:15 Dose: 40 mg Documented by: Insulin Aspart (Novolog Vial Sliding Scale -) 1 vial SQ TIDAC [facility]; Protocol Last Admin: 10/24/19 06:04 Dose: Not Given Documented by: Metoprolol Tartrate (Lopressor -) 50 mg PO TID [facility] Last Admin: 10/24/19 05:15 Dose: 50 mg Documented by: Metoprolol Tartrate (Lopressor Injection -) 5 mg IVPUSH Q4H PRN PRN Reason: HYPERTENSION Last Admin: 10/21/19 10:12 Dose: 5 mg Documented by: Miscellaneous (Duragesic Patch Waste) 1 each TD PRN PRN PRN Reason: PAIN Pantoprazole Sodium (Protonix Iv) 40 mg IVPUSH DAILY [facility] Last Admin: 10/23/19 09:58 Dose: 40 mg Documented by: Polyethylene Glycol (Miralax (For Daily Use) -) 17 gm NGT HS@2100 [facility] Last Admin: 10/23/19 21:40 Dose: 17 gm Documented by: Scopolamine HBr (Transderm-Scop -) 1 patch TD Q72H [facility] Last Admin: 10/23/19 21:40 Dose: 1 patch Documented by: - ....Imaging EKG: Report Reviewed (Tele: Rate-controlled aflutter) Problem List - Problems (1) Acute respiratory failure with hypoxia and hypercapnia Code(s): J96.01 - ACUTE RESPIRATORY FAILURE WITH HYPOXIA; J96.02 - ACUTE RESPIRATORY FAILURE WITH HYPERCAPNIA (2) Acute decompensated heart failure Code(s): I50.9 - HEART FAILURE, UNSPECIFIED (3) Acute hypercapnic respiratory failure due to obstructive sleep apnea Code(s): J96.02 - ACUTE RESPIRATORY FAILURE WITH HYPERCAPNIA; G47.33 - OBSTRUCTIVE SLEEP APNEA (ADULT) (PEDIATRIC) (4) Atrial fibrillation and flutter Code(s): I48.91 - UNSPECIFIED ATRIAL FIBRILLATION; I48.92 - UNSPECIFIED ATRIAL FLUTTER (5) Sarcoidosis of other sites Code(s): D86.89 - SARCOIDOSIS OF OTHER SITES (6) Sleep apnea Code(s): G47.30 - SLEEP APNEA, UNSPECIFIED Qualifiers: Sleep apnea type: obstructive Qualified Code(s): G47.33 - Obstructive sleep apnea (adult) (pediatric) (7) Type 2 diabetes mellitus Code(s): E11.9 - TYPE 2 DIABETES MELLITUS WITHOUT COMPLICATIONS Qualifiers: Diabetes mellitus nursing home insulin use: without ferry terminal agent use Diabetes mellitus complication detail: with chronic kidney disease Chronic kidney disease stage: stage 2 (mild) Assessment/Plan 05/01/2019 Normal LV and RV size and fxn, tr TR 03/14/2019 Normal LV size and fxn, no thrombus ADEEL, mild-mod dilated and HK RV, tr MR, mild-mod TR, tr UT, trace pericardial effusion 1. Acute hypoxic and hypercapneic respiratory failure s/p tracheostomy on mechanical ventilation 2. Pneumonia, post septic shock and ARDS 3. Sarcoidosis confirmed by skin biopsy 4. OSAS/OHS 5. Persistent Atrial flutter/AF with intermittent periods of rapid ventricular response 6. Acute on chronic diastolic heart failure 7. Acute on CKD with hyperkalemia 8. Type 2 DM 9. Anemia 10. History of COVID 19 PLAN: Same: 1. Lasix 40 IV bid with monitoring diuretic response, renal function and electrolytes 2. Rate-control with oral Cardizem 90 mg mg QID, Lopressor 50 mg TID, IV Lopressor/Cardizem as needed. Cont Eliquis 5 bid, Lipitor 40 qd 4. Hold lisinopril 10 mg QD pending hemodynamic and renal stability 5. Enteral feeds, DVT/GI prophylaxis 6. Follow up with Dr. Genaro Davila (cardiology at [place]) as outpatient. Consider cardiac PET or MRI to exclude cardiac involvement in sarcoidosis as ou tpatient
--- NOTE | 2019-10-24 13:45 | PN ---
Progress Note (short form) - Note Progress Note: Patient seen and examined in the SD-ICU. Vented via Trach, awake and interactive. Vent requirements weaning. OBJECTIVE: Intake & Output 10/21/19 10/22/19 10/23/19 10/24/19 23:59 23:59 23:59 23:59 Intake Total 1640 1115 50 240 Output Total 3100 1630 2400 650 Balance -6748 -060 -2350 -410 Weight 269 lb 257 lb 6.4 oz 254 lb 8 oz 253 lb 11.2 oz Last Vital Signs Temp Pulse Resp BP Pulse Ox 97.1 F L 90 18 82/64 L 99 10/24/19 06:00 10/24/19 07:45 10/24/19 11:34 10/24/19 06:00 10/24/19 07:45 Active Medications Apixaban (Eliquis -) 5 mg NGT BID [facility] Last Admin: 10/23/19 21:39 Dose: 5 mg Documented by: Atorvastatin Calcium (Lipitor -) 40 mg PO [facility] Last Admin: 10/23/19 21:39 Dose: 40 mg Documented by: Chlorhexidine Gluconate (Hibiclens For Decolonization -) 1 applic TP [facility] Last Admin: 10/23/19 21:40 Dose: 1 applic Documented by: Chlorhexidine Gluconate (Peridex -) 15 ml MM BID [facility] Last Admin: 10/23/19 21:40 Dose: 15 ml Documented by: Diltiazem HCl (Cardizem -) 90 mg PO Q6HPO [facility] Last Admin: 10/24/19 05:15 Dose: 90 mg Documented by: Fentanyl (Duragesic 25mcg Patch -) 1 patch TD Q72H [facility] Stop: 10/26/19 08:18 Last Admin: 10/22/19 08:41 Dose: 1 patch Documented by: Furosemide (Lasix Injection -) 40 mg IVPUSH BID@0600,1400 [facility] Last Admin: 10/24/19 05:15 Dose: 40 mg Documented by: Insulin Aspart (Novolog Vial Sliding Scale -) 1 vial SQ TIDAC [facility]; Protocol Last Admin: 10/24/19 06:04 Dose: Not Given Documented by: Metoprolol Tartrate (Lopressor -) 50 mg PO TID [facility] Last Admin: 10/24/19 05:15 Dose: 50 mg Documented by: Metoprolol Tartrate (Lopressor Injection -) 5 mg IVPUSH Q4H PRN PRN Reason: HYPERTENSION Last Admin: 10/21/19 10:12 Dose: 5 mg Documented by: Miscellaneous (Duragesic Patch Waste) 1 each TD PRN PRN PRN Reason: PAIN Pantoprazole Sodium (Protonix Iv) 40 mg IVPUSH DAILY [facility] Last Admin: 10/23/19 09:58 Dose: 40 mg Documented by: Polyethylene Glycol (Miralax (For Daily Use) -) 17 gm NGT HS@2100 [facility] Last Admin: 10/23/19 21:40 Dose: 17 gm Documented by: Scopolamine HBr (Transderm-Scop -) 1 patch TD Q72H [facility] Last Admin: 10/23/19 21:40 Dose: 1 patch Documented by: Gen: Vented, awake Heart: RRR Lung: scattered rhonchi Abd: soft, nontender Ext: no edema Laboratory Results - last 24 hr 10/23/19 10/24/19 10/24/19 17:07 05:48 05:48 WBC 6.9 RBC 3.96 L Hgb 9.9 L Hct 30.7 L MCV 77.5 L MCH 25.1 L MCHC 32.4 RDW 18.7 H Plt Count 400 MPV 7.8 Absolute Neuts (auto) 5.4 Neutrophils % 77.8 Lymphocytes % 6.0 L D Monocytes % 11.1 H Eosinophils % 3.8 Basophils % 1.3 Nucleated RBC % 0 Sodium 135 L Potassium 4.1 Chloride 93 L Carbon Dioxide 34 H Anion Gap 8 BUN 27.6 H Creatinine 1.0 Est GFR (CKD-EPI)AfAm 99.85 Est GFR (CKD-EPI)NonAf 86.15 POC Glucometer 127 Random Glucose 111 H Calcium 8.9 Total Bilirubin 0.9 AST 17 ALT 17 Alkaline Phosphatase 150 H Total Protein 6.4 Albumin 2.6 L 10/24/19 10/24/19 06:02 13:04 WBC RBC Hgb Hct MCV MCH MCHC RDW Plt Count MPV Absolute Neuts (auto) Neutrophils % Lymphocytes % Monocytes % Eosinophils % Basophils % Nucleated RBC % Sodium Potassium Chloride Carbon Dioxide Anion Gap BUN Creatinine Est GFR (CKD-EPI)AfAm Est GFR (CKD-EPI)NonAf POC Glucometer 110 112 Random Glucose Calcium Total Bilirubin AST ALT Alkaline Phosphatase Total Protein Albumin ASSESSMENT AND PLAN: Acute Hypoxic and Hypercapneic Respiratory Failure S/P Trach UTI Pneumonia ARDS Septic Shock Acute on Chronic Diastolic Heart Failure Volume Overload Atrial Fibrillation/Flutter with RVR h/o COVID19 Sarcoidosis Morbid Obesity EMMY/OHS Anemia - Eliquis - Off antibiotics per ID - rate control - continue anticoagulation - monitor urine output, creatinine - continue volume assist control - taper FiO2, PEEP to keep SpO2 >90% : Wean trials & PMV as tolerated - enteral feeds - GI prophylaxis Dr Maya
--- NOTE | 2019-10-24 14:15 | PN ---
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 Progress Note: Selected Entries 10/23/19 10/23/19 10/23/19 00:00 00:41 02:00 Lunch Temperature 97.8 F Blood Pressure 137/95 107/70 103/64 10/23/19 10/23/19 10/23/19 04:00 06:00 08:00 Lunch Temperature Blood Pressure 92/58 L 127/88 94/66 10/23/19 10/23/19 10/23/19 14:00 18:00 20:00 Lunch Temperature 98.6 F 98.9 F Blood Pressure 106/80 120/90 103/68 10/23/19 10/24/19 10/24/19 22:00 00:00 02:00 Lunch Temperature 98.1 F 98.6 F Blood Pressure 90/63 97/67 82/60 L 10/24/19 10/24/19 10/24/19 04:00 05:25 06:00 Lunch Temperature 97.1 F L Blood Pressure 99/76 96/66 82/64 L 10/24/19 09:00 Lunch NPO Temperature Blood Pressure Laboratory Tests 10/24/19 05:48 WBC 6.9 Weaning from ventilator in progress. Doing well. NGT in place PMV/MBS per medical team
--- NOTE | 2019-10-24 14:37 | PN ---
Progress Note, Physician - Current Medication List Current Medications: Active Medications Apixaban (Eliquis -) 5 mg NGT BID [facility] Last Admin: 10/24/19 10:00 Dose: 5 mg Documented by: Atorvastatin Calcium (Lipitor -) 40 mg PO HS [facility] Last Admin: 10/23/19 21:39 Dose: 40 mg Documented by: Chlorhexidine Gluconate (Hibiclens For Decolonization -) 1 applic TP HS [facility] Last Admin: 10/23/19 21:40 Dose: 1 applic Documented by: Chlorhexidine Gluconate (Peridex -) 15 ml MM BID [facility] Last Admin: 10/24/19 10:00 Dose: 15 ml Documented by: Diltiazem HCl (Cardizem -) 90 mg PO Q6HPO [facility] Last Admin: 10/24/19 13:52 Dose: 90 mg Documented by: Fentanyl (Duragesic 25mcg Patch -) 1 patch TD Q72H [facility] Stop: 10/26/19 08:18 Last Admin: 10/22/19 08:41 Dose: 1 patch Documented by: Furosemide (Lasix Injection -) 40 mg IVPUSH BID@0600,1400 [facility] Last Admin: 10/24/19 13:53 Dose: 40 mg Documented by: Insulin Aspart (Novolog Vial Sliding Scale -) 1 vial SQ TIDAC [facility]; Protocol Last Admin: 10/24/19 12:45 Dose: Not Given Documented by: Metoprolol Tartrate (Lopressor -) 50 mg PO TID [facility] Last Admin: 10/24/19 13:55 Dose: 50 mg Documented by: Metoprolol Tartrate (Lopressor Injection -) 5 mg IVPUSH Q4H PRN PRN Reason: HYPERTENSION Last Admin: 10/21/19 10:12 Dose: 5 mg Documented by: Miscellaneous (Duragesic Patch Waste) 1 each TD PRN PRN PRN Reason: PAIN Pantoprazole Sodium (Protonix Iv) 40 mg IVPUSH DAILY [facility] Last Admin: 10/24/19 10:00 Dose: 40 mg Documented by: Polyethylene Glycol (Miralax (For Daily Use) -) 17 gm NGT HS@2100 [facility] Last Admin: 10/23/19 21:40 Dose: 17 gm Documented by: Scopolamine HBr (Transderm-Scop -) 1 patch TD Q72H [facility] Last Admin: 10/23/19 21:40 Dose: 1 patch Documented by: - Objective Vital Signs: Vital Signs Temperature 97.1 F L 10/24/19 06:00 Pulse Rate 90 10/24/19 07:45 Respiratory Rate 18 10/24/19 11:34 Blood Pressure 82/64 L 10/24/19 06:00 O2 Sat by Pulse Oximetry (%) 99 10/24/19 07:45 Cardiovascular: Yes: S1 Respiratory: Yes: Mechanically Ventilated Gastrointestinal: Yes: Normal Bowel Sounds, Soft Labs: CBC, BMP 10/24/19 05:48 10/24/19 05:48 INR, PTT INR 1.18 (0.83-1.09) H 10/14/19 05:30 Problem List - Problems (1) Acute respiratory failure with hypoxia and hypercapnia Assessment/Plan: VENT SETTING PER PULM MONITOR Code(s): J96.01 - ACUTE RESPIRATORY FAILURE WITH HYPOXIA; J96.02 - ACUTE RESPIRATORY FAILURE WITH HYPERCAPNIA (2) Type 2 diabetes mellitus Assessment/Plan: BGM Code(s): E11.9 - TYPE 2 DIABETES MELLITUS WITHOUT COMPLICATIONS Qualifiers: 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: without termite control servicer use Diabetes mellitus complication detail: with chronic kidney disease Chronic kidney disease stage: stage 2 (mild) (3) Sepsis Assessment/Plan: OFF ABX MONITOR Microbiology 09/28/19 16:35 Sputum - Endotrachea Suction/Ventilator Gram Stain - Final 09/28/19 16:35 Sputum - Endotrachea Suction/Ventilator Sputum Culture - Final Escherichia Coli Esbl Bundle Packer Mr S Aureus 09/27/19 05:20 Blood - Peripheral Venous Blood Culture - Final NO GROWTH AFTER 5 DAYS INCUBATION 09/27/19 05:20 Blood - Peripheral Venous Blood Culture - Final NO GROWTH AFTER 5 DAYS INCUBATION 09/28/19 16:35 Urine - Urine Andrews Legionella Antigen - Final 09/28/19 16:35 Urine - Urine Andrews Streptococcus pneumoniae Antigen (M - Final 09/27/19 06:09 Urine - Urine Clean Catch Urine Culture - Final Enterobacter Aerogenes Code(s): A41.9 - SEPSIS, UNSPECIFIED ORGANISM (4) Atrial fibrillation and flutter Assessment/Plan: ON ELIQUIS-METOPROLOL AND CARDIZEM Code(s): I48.91 - UNSPECIFIED ATRIAL FIBRILLATION; I48.92 - UNSPECIFIED ATRIAL FLUTTER (5) CHF exacerbation Assessment/Plan: ON IV LASIX CARDIO ON BOARD Code(s): I50.9 - HEART FAILURE, UNSPECIFIED (6) Pneumonia Assessment/Plan: OFF ABX Code(s): J18.9 - PNEUMONIA, UNSPECIFIED ORGANISM Qualifiers: Pneumonia type: due to unspecified organism
[2019-10-24] MEDS: CHLORHEXIDINE GLUCONATE 4% CLEANSER FOR DECOLONIZATION TP SCH (21:14)
[2019-10-24] MEDS: POLYETHYLENE GLYCOL 3350 119 GM BTL NGT SCH (21:18)
[2019-10-24] MEDS: ATORVASTATIN CA 40 MG TABLET (FP) PO SCH (21:19)
[2019-10-25] MEDS: dilTIAZem HCL 60 MG TABLET PO SCH ×4 (00:02→18:20)
[2019-10-25] MEDS: METOPROLOL TARTRATE 50 MG TABLET (FP) PO SCH ×3 (05:03→21:06)
[2019-10-25] MEDS: FUROSEMIDE 40 MG/4 ML INJECTABLE VIAL IVPUSH SCH ×2 (05:04→18:23)
[2019-10-25] MEDS: INSULIN SLIDING SCALE (NOVOLOG) 1 VIAL SQ SCH ×2 (06:13→18:20)
--- NOTE | 2019-10-25 06:56 | PN ---
Progress Note (short form) - Note Progress Note: Chief Complaint: Events noted, notes reviewed, remains on a ventilator via tracheostomy, awake and alert complaining of inability to move right upper extremity (As per critical care staff existing pathology), persistent atrial flutter with variable ventricular response History of Present Illness: Seen and examined in the ICU. Events noted, notes reviewed, remains on a ventilator via tracheostomy, awake and alert complaining of inability to move right upper extremity (As per critical care staff existing pathology), persistent atrial flutter with variable ventricular response Current Medications: Current Medications Generic Name Dose Route Start Last Admin Trade Name Freq PRN Reason Stop Dose Admin Apixaban 5 mg 10/20/19 22:00 10/25/19 09:59 Eliquis - NGT 5 mg BID ELISSA Administration Atorvastatin Calcium 40 mg 10/20/19 22:00 10/24/19 21:19 Lipitor - PO 40 mg HS ELISSA Administration Chlorhexidine Gluconate 1 applic 10/20/19 22:00 10/24/19 21:14 Hibiclens For Decolonization - TP 1 applic HS ELISSA Administration Chlorhexidine Gluconate 15 ml 10/20/19 22:00 10/25/19 09:54 Peridex - MM 15 ml BID ELISSA Administration Diltiazem HCl 90 mg 10/21/19 00:00 10/25/19 05:04 Cardizem - PO 90 mg Q6HPO ELISSA Administration Fentanyl 1 patch 10/22/19 08:30 10/25/19 09:57 Duragesic 25mcg Patch - TD 10/26/19 08:18 1 patch Q72H ELISSA Administration Furosemide 40 mg 10/21/19 06:00 10/25/19 05:04 Lasix Injection - IVPUSH 40 mg BID@0600,1400 ELISSA Administration Insulin Aspart 1 vial 10/21/19 07:00 10/25/19 06:13 Novolog Vial Sliding Scale - SQ Not Given TIDAC ELISSA Protocol Metoprolol Tartrate 50 mg 10/20/19 22:00 10/25/19 05:03 Lopressor - PO 50 mg TID ELISSA Administration Metoprolol Tartrate 5 mg 10/20/19 20:35 10/21/19 10:12 Lopressor Injection - IVPUSH 5 mg Q4H PRN Administration HYPERTENSION Miscellaneous 1 each 10/20/19 20:35 Duragesic Patch Waste TD PRN PRN PAIN Pantoprazole Sodium 40 mg 10/21/19 10:00 10/25/19 09:55 Protonix Iv IVPUSH 40 mg DAILY ELISSA Administration Polyethylene Glycol 17 gm 10/20/19 21:00 10/24/19 21:18 Miralax (For Daily Use) - NGT 17 gm HS@2100 ELISSA Administration Scopolamine HBr 1 patch 10/20/19 22:00 10/23/19 21:40 Transderm-Scop - TD 1 patch Q72H ELISSA Administration Review of Systems Unable to obtain - Objective Vital Signs: Last Vital Signs Temp Pulse Resp BP Pulse Ox 98 F 92 H 20 115/82 100 10/25/19 10:00 10/25/19 10:00 10/25/19 10:00 10/25/19 10:00 10/25/19 13:20 Intake & Output 10/22/19 10/23/19 10/24/19 10/25/19 23:59 23:59 23:59 23:59 Intake Total 1115 50 770 480 Output Total 1630 2400 1300 1000 Balance -515 -2350 -530 -520 Weight 257 lb 6.4 oz 254 lb 8 oz 253 lb 11.2 oz 241 lb 12.8 oz Neck: Supple negative JVD no bruit Respiratory: Diminished Breath Sounds Bilaterally Cardiovascular: S1 S2 Irregularly Irregular Gastrointestinal: Soft Benign Normal Bowel Sounds Ext: Edema Bilaterally Labs: CBC, BMP 10/24/19 05:48 10/24/19 05:48 Hepatic Panel Total Bilirubin 0.9 mg/dL (0.2-1) 10/24/19 05:48 AST 17 U/L (15-37) 10/24/19 05:48 ALT 17 U/L (13-61) 10/24/19 05:48 Alkaline Phosphatase 150 U/L (45-117) H 10/24/19 05:48 Albumin 2.6 g/dl (3.4-5.0) L 10/24/19 05:48 INR, PTT INR 1.18 (0.83-1.09) H 10/14/19 05:30 Assessment/Plan: ASSESSMENT: 1. Acute on chronic hypoxic/hypercapnic respiratory failure post tracheostomy on mechanical ventilation 2. History of pneumonia complicated by septic shock- ARDS, last admission/hospitalization 3. Persistent atrial flutter/paroxysmal atrial fibrillation [id number] score of 0 on A/C therapy with intermittent periods of rapid ventricular response 4. Diastolic/systolic LV dysfunction with chronic class 0-I NYHA classification LV failure 5. Sarcoidosis confirmed by skin biopsy, R/O cardiac involvement- for future evaluation/cardiac MRI 6. History of coronavirus/COVID 19 infection 7. DM 8. History of OSAS 9. History of acute on chronic kidney disease, pre-renal azotemia 10. Anemia PLAN: 1. Ventilator management as per the critical care team 2. Continue B-Blockers/Lopressor to assist with rate control titrate dose as needed/hemodynamics permitting 3. Continue Cardizem to assist with rate control titrate dose as needed/hemodynamics permitting 4. Recommend resumption of Lisinopril/hemodynamics permitting unless it is absolutely contraindicated 5. Lasix intravenously with close monitoring of renal function and electrolytes 6. Continue DOAS's/Eliquis therapy unless it is absolutely contraindicated with close monitoring of CBC/Hg 7. Continue Lipitor therapy Maycol King MD
[2019-10-25] MEDS: CHLORHEXIDINE GLUCONATE 0.12% 15ML CUP MM SCH ×2 (09:54→21:06)
[2019-10-25] MEDS: PANTOPRAZOLE SODIUM 40 MG VIAL IVPUSH SCH (09:55)
[2019-10-25] MEDS: fentaNYL 25mcg/hr PATCH.TD72 TD SCH (09:57)
[2019-10-25] MEDS: APIXABAN 5 MG TABLET NGT SCH ×2 (09:59→21:04)
--- NOTE | 2019-10-25 13:07 | PN ---
Progress Note (short form) - Note Progress Note: Patient seen and examined in the [facility]ICU. Vented via Trach, awake and interactive. Vent requirements weaning. OBJECTIVE: Intake & Output 10/22/19 10/23/19 10/24/19 10/25/19 23:59 23:59 23:59 23:59 Intake Total 1115 50 770 480 Output Total 1630 2400 1300 1000 Balance -515 -2350 -530 -520 Weight 257 lb 6.4 oz 254 lb 8 oz 253 lb 11.2 oz 241 lb 12.8 oz Last Vital Signs Temp Pulse Resp BP Pulse Ox 98 F 92 H 20 115/82 95 10/25/19 10:00 10/25/19 10:00 10/25/19 10:00 10/25/19 10:00 10/25/19 10:00 Active Medications Apixaban (Eliquis -) 5 mg NGT BID [facility] Last Admin: 10/25/19 09:59 Dose: 5 mg Documented by: Atorvastatin Calcium (Lipitor -) 40 mg PO [facility] Last Admin: 10/24/19 21:19 Dose: 40 mg Documented by: Chlorhexidine Gluconate (Hibiclens For Decolonization -) 1 applic TP [facility] Last Admin: 10/24/19 21:14 Dose: 1 applic Documented by: Chlorhexidine Gluconate (Peridex -) 15 ml MM BID [facility] Last Admin: 10/25/19 09:54 Dose: 15 ml Documented by: Diltiazem HCl (Cardizem -) 90 mg PO Q6HPO [facility] Last Admin: 10/25/19 05:04 Dose: 90 mg Documented by: Fentanyl (Duragesic 25mcg Patch -) 1 patch TD Q72H [facility] Stop: 10/26/19 08:18 Last Admin: 10/25/19 09:57 Dose: 1 patch Documented by: Furosemide (Lasix Injection -) 40 mg IVPUSH BID@0600,1400 [facility] Last Admin: 10/25/19 05:04 Dose: 40 mg Documented by: Insulin Aspart (Novolog Vial Sliding Scale -) 1 vial SQ TIDAC [facility]; Protocol Last Admin: 10/25/19 06:13 Dose: Not Given Documented by: Metoprolol Tartrate (Lopressor -) 50 mg PO TID [facility] Last Admin: 10/25/19 05:03 Dose: 50 mg Documented by: Metoprolol Tartrate (Lopressor Injection -) 5 mg IVPUSH Q4H PRN PRN Reason: HYPERTENSION Last Admin: 10/21/19 10:12 Dose: 5 mg Documented by: Miscellaneous (Duragesic Patch Waste) 1 each TD PRN PRN PRN Reason: PAIN Pantoprazole Sodium (Protonix Iv) 40 mg IVPUSH DAILY [facility] Last Admin: 10/25/19 09:55 Dose: 40 mg Documented by: Polyethylene Glycol (Miralax (For Daily Use) -) 17 gm NGT HS@2100 [facility] Last Admin: 10/24/19 21:18 Dose: 17 gm Documented by: Scopolamine HBr (Transderm-Scop -) 1 patch TD Q72H [facility] Last Admin: 10/23/19 21:40 Dose: 1 patch Documented by: Gen: Vented, awake Heart: RRR Lung: scattered rhonchi Abd: soft, nontender Ext: no edema Laboratory Results - last 24 hr 10/24/19 10/24/19 10/25/19 13:04 17:22 06:12 POC Glucometer 112 110 126 10/25/19 11:40 POC Glucometer 121 ASSESSMENT AND PLAN: Acute Hypoxic and Hypercapneic Respiratory Failure S/P Trach UTI Pneumonia ARDS Septic Shock Acute on Chronic Diastolic Heart Failure Volume Overload Atrial Fibrillation/Flutter with RVR h/o COVID19 Sarcoidosis Morbid Obesity EMMY/OHS Anemia - Wean trials & PMV as tolerated - Eliquis - Off antibiotics per ID - rate control - monitor urine output, creatinine - enteral feeds - GI prophylaxis Dr Maya
--- NOTE | 2019-10-25 14:03 | PN ---
Progress Note, Physician - Current Medication List Current Medications: Active Medications Apixaban (Eliquis -) 5 mg NGT BID [facility] Last Admin: 10/25/19 09:59 Dose: 5 mg Documented by: Atorvastatin Calcium (Lipitor -) 40 mg PO HS [facility] Last Admin: 10/24/19 21:19 Dose: 40 mg Documented by: Chlorhexidine Gluconate (Hibiclens For Decolonization -) 1 applic TP HS [facility] Last Admin: 10/24/19 21:14 Dose: 1 applic Documented by: Chlorhexidine Gluconate (Peridex -) 15 ml MM BID [facility] Last Admin: 10/25/19 09:54 Dose: 15 ml Documented by: Diltiazem HCl (Cardizem -) 90 mg PO Q6HPO [facility] Last Admin: 10/25/19 05:04 Dose: 90 mg Documented by: Fentanyl (Duragesic 25mcg Patch -) 1 patch TD Q72H [facility] Stop: 10/26/19 08:18 Last Admin: 10/25/19 09:57 Dose: 1 patch Documented by: Furosemide (Lasix Injection -) 40 mg IVPUSH BID@0600,1400 [facility] Last Admin: 10/25/19 05:04 Dose: 40 mg Documented by: Insulin Aspart (Novolog Vial Sliding Scale -) 1 vial SQ TIDAC [facility]; Protocol Last Admin: 10/25/19 06:13 Dose: Not Given Documented by: Metoprolol Tartrate (Lopressor -) 50 mg PO TID [facility] Last Admin: 10/25/19 05:03 Dose: 50 mg Documented by: Metoprolol Tartrate (Lopressor Injection -) 5 mg IVPUSH Q4H PRN PRN Reason: HYPERTENSION Last Admin: 10/21/19 10:12 Dose: 5 mg Documented by: Miscellaneous (Duragesic Patch Waste) 1 each TD PRN PRN PRN Reason: PAIN Pantoprazole Sodium (Protonix Iv) 40 mg IVPUSH DAILY [facility] Last Admin: 10/25/19 09:55 Dose: 40 mg Documented by: Polyethylene Glycol (Miralax (For Daily Use) -) 17 gm NGT HS@2100 [facility] Last Admin: 10/24/19 21:18 Dose: 17 gm Documented by: Scopolamine HBr (Transderm-Scop -) 1 patch TD Q72H [facility] Last Admin: 10/23/19 21:40 Dose: 1 patch Documented by: - Objective Vital Signs: Vital Signs Temperature 98 F 10/25/19 10:00 Pulse Rate 92 H 10/25/19 10:00 Respiratory Rate 20 10/25/19 10:00 Blood Pressure 115/82 10/25/19 10:00 O2 Sat by Pulse Oximetry (%) 95 10/25/19 10:00 Cardiovascular: Yes: S1, S2 Respiratory: Yes: Regular, CTA Bilaterally Gastrointestinal: Yes: Normal Bowel Sounds, Soft Extremities: Yes: Other (WEAKNESS RIGHR ARM) Labs: CBC, BMP 10/24/19 05:48 10/24/19 05:48 INR, PTT INR 1.18 (0.83-1.09) H 10/14/19 05:30 Problem List - Problems (1) Acute respiratory failure with hypoxia and hypercapnia Assessment/Plan: VENT SETTING PER PULM MONITOR Code(s): J96.01 - ACUTE RESPIRATORY FAILURE WITH HYPOXIA; J96.02 - ACUTE RES PIRATORY FAILURE WITH HYPERCAPNIA (2) Type 2 diabetes mellitus Assessment/Plan: BGM Code(s): E11.9 - TYPE 2 DIABETES MELLITUS WITHOUT COMPLICATIONS Qualifiers: Diabetes mellitus rn long term care insulin use: without intermediate use Diabetes mellitus complication detail: with chronic kidney disease Chronic kidney disease stage: stage 2 (mild) (3) Sepsis Assessment/Plan: OFF ABX MONITOR Microbiology 09/28/19 16:35 Sputum - Endotrachea Suction/Ventilator Gram Stain - Final 09/28/19 16:35 Sputum - Endotrachea Suction/Ventilator Sputum Culture - Final Escherichia Coli Esbl Grip Wrapper Mr S Aureus 09/27/19 05:20 Blood - Peripheral Venous Blood Culture - Final NO GROWTH AFTER 5 DAYS INCUBATION 09/27/19 05:20 Blood - Peripheral Venous Blood Culture - Final NO GROWTH AFTER 5 DAYS INCUBATION 09/28/19 16:35 Urine - Urine Andrews Legionella Antigen - Final 09/28/19 16:35 Urine - Urine Andrews Streptococcus pneumoniae Antigen (M - Final 09/27/19 06:09 Urine - Urine Clean Catch Urine Culture - Final Enterobacter Aerogenes Code(s): A41.9 - SEPSIS, UNSPECIFIED ORGANISM (4) Atrial fibrillation and flutter Assessment/Plan: ON ELIQUIS-METOPROLOL AND CARDIZEM Code(s): I48.91 - UNSPECIFIED ATRIAL FIBRILLATION; I48.92 - UNSPECIFIED ATRIAL FLUTTER (5) CHF exacerbation Assessment/Plan: ON IV LASIX CARDIO ON BOARD Code(s): I50.9 - HEART FAILURE, UNSPECIFIED (6) Pneumonia Assessment/Plan: OFF ABX Code(s): J18.9 - PNEUMONIA, UNSPECIFIED ORGANISM Qualifiers: Pneumonia type: due to unspecified organism (7) Right arm weakness Assessment/Plan: NEURO HEAD CT Code(s): R29.898 - OTH SYMPTOMS AND SIGNS INVOLVING THE MUSCULOSKELETAL SYSTEM
[2019-10-25] MEDS: POLYETHYLENE GLYCOL 3350 119 GM BTL NGT SCH (21:04)
[2019-10-25] MEDS: CHLORHEXIDINE GLUCONATE 4% CLEANSER FOR DECOLONIZATION TP SCH (21:06)
[2019-10-25] MEDS: ATORVASTATIN CA 40 MG TABLET (FP) PO SCH (21:06)
[2019-10-26] MEDS: dilTIAZem HCL 60 MG TABLET PO SCH ×5 (01:03→23:16)
[2019-10-26] MEDS: FUROSEMIDE 40 MG/4 ML INJECTABLE VIAL IVPUSH SCH ×2 (05:50→15:42)
[2019-10-26] MEDS: METOPROLOL TARTRATE 50 MG TABLET (FP) PO SCH ×3 (05:51→21:11)
[2019-10-26] MEDS: INSULIN SLIDING SCALE (NOVOLOG) 1 VIAL SQ SCH ×3 (06:26→18:34)
--- NOTE | 2019-10-26 07:05 | PN ---
Progress Note (short form) - Note Progress Note: Chief Complaint: Events noted, notes reviewed, remains on a ventilator via tracheostomy, awake and alert no distress, right upper extremity weakness persist, persistent atrial flutter with variable ventricular response History of Present Illness: Seen and examined in the ICU. Events noted, notes reviewed, remains on a ventilator via tracheostomy, awake and alert no distress, right upper extremity weakness persist, persistent atrial flutter with variable ventricular response Current Medications: Current Medications Generic Name Dose Route Start Last Admin Trade Name Freq PRN Reason Stop Dose Admin Apixaban 5 mg 10/20/19 22:00 10/25/19 21:04 Eliquis - NGT 5 mg BID ELISSA Administration Atorvastatin Calcium 40 mg 10/20/19 22:00 10/25/19 21:06 Lipitor - PO 40 mg HS ELISSA Administration Chlorhexidine Gluconate 1 applic 10/20/19 22:00 10/25/19 21:06 Hibiclens For Decolonization - TP 1 applic HS ELISSA Administration Chlorhexidine Gluconate 15 ml 10/20/19 22:00 10/25/19 21:06 Peridex - MM 15 ml BID ELISSA Administration Diltiazem HCl 90 mg 10/21/19 00:00 10/26/19 05:50 Cardizem - PO 90 mg Q6HPO ELISSA Administration Fentanyl 1 patch 10/22/19 08:30 10/25/19 09:57 Duragesic 25mcg Patch - TD 10/26/19 08:18 1 patch Q72H ELISSA Administration Furosemide 40 mg 10/21/19 06:00 10/26/19 05:50 Lasix Injection - IVPUSH 40 mg BID@0600,1400 ELISSA Administration Insulin Aspart 1 vial 10/21/19 07:00 10/26/19 06:26 Novolog Vial Sliding Scale - SQ Not Given TIDAC [facility] Protocol Metoprolol Tartrate 50 mg 10/20/19 22:00 10/26/19 05:51 Lopressor - PO 50 mg TID ELISSA Administration Metoprolol Tartrate 5 mg 10/20/19 20:35 10/21/19 10:12 Lopressor Injection - IVPUSH 5 mg Q4H PRN Administration HYPERTENSION Miscellaneous 1 each 10/20/19 20:35 10/25/19 09:55 Duragesic Patch Waste TD 1 each PRN PRN Administration PAIN Pantoprazole Sodium 40 mg 10/21/19 10:00 10/25/19 09:55 Protonix Iv IVPUSH 40 mg DAILY ELISSA Administration Polyethylene Glycol 17 gm 10/20/19 21:00 10/25/19 21:04 Miralax (For Daily Use) - NGT 17 gm HS@2100 ELISSA Administration Scopolamine HBr 1 patch 10/20/19 22:00 10/23/19 21:40 Transderm-Scop - TD 1 patch Q72H ELISSA Administration Review of Systems Unable to obtain - Objective Vital Signs: Last Vital Signs Temp Pulse Resp BP Pulse Ox 98.1 F 102 H 20 117/82 92 L 10/26/19 06:28 10/26/19 06:28 10/26/19 06:28 10/26/19 06:28 10/26/19 06:28 Intake & Output 10/23/19 10/24/19 10/25/19 10/26/19 23:59 23:59 23:59 23:59 Intake Total 50 770 580 580 Output Total 2400 1300 1800 450 Balance -2350 -530 -1220 130 Weight 254 lb 8 oz 253 lb 11.2 oz 241 lb 12.8 oz 245 lb Neck: Supple negative JVD no bruit Respiratory: Diminished Breath Sounds Bilaterally Cardiovascular: S1 S2 Irregularly Irregular Gastrointestinal: Soft Benign Normal Bowel Sounds Ext: Edema Bilaterally Labs: Hepatic Panel Total Bilirubin 0.9 mg/dL (0.2-1) 10/24/19 05:48 AST 17 U/L (15-37) 10/24/19 05:48 ALT 17 U/L (13-61) 10/24/19 05:48 Alkaline Phosphatase 150 U/L (45-117) H 10/24/19 05:48 Albumin 2.6 g/dl (3.4-5.0) L 10/24/19 05:48 INR, PTT INR 1.18 (0.83-1.09) H 10/14/19 05:30 Assessment/Plan: ASSESSMENT: 1. Acute on chronic hypoxic/hypercapnic respiratory failure post tracheostomy on mechanical ventilation 2. History of pneumonia complicated by septic shock- ARDS, last admission/hospi talization 3. Persistent atrial flutter/paroxysmal atrial fibrillation [id number] score of 0 on A/C therapy with intermittent periods of rapid ventricular response 4. Diastolic/systolic LV dysfunction with chronic class 0-I NYHA classification LV failure 5. Sarcoidosis confirmed by skin biopsy, R/O cardiac involvement- for future evaluation/cardiac MRI 6. History of coronavirus/COVID 19 infection 7. DM 8. History of OSAS 9. History of acute on chronic kidney disease, pre-renal azotemia 10. Right upper extremity weakness, evaluation and management of which is currently in progress 11. Anemia PLAN: 1. Ventilator management as per the critical care team 2. Continue B-Blockers/Lopressor to assist with rate control titrate dose as needed/hemodynamics permitting 3. Continue Cardizem to assist with rate control titrate dose as needed/hemodynamics permitting 4. As outlined in the prior notes recommend resumption of Lisinopril/hemodynamics permitting unless it is absolutely contraindicated 5. Lasix intravenously with close monitoring of renal function and electrolytes 6. Continue DOAS's/Eliquis therapy unless it is absolutely contraindicated with close monitoring of CBC/Hg 7. Continue Lipitor therapy Maycol King MD
[2019-10-26 07:07] LABS: BASO % 1.6 % (0-2.0); EOS % 2.7 % (0-4.5); HEMATOCRIT 32.9 % (35.4-49); HEMOGLOBIN 10.5 GM/dL (11.7-16.9); LYMPH % 7.8 % (8-40); MCH 24.6 pg (25.7-33.7); MCHC 31.9 g/dl (32.0-35.9); MEAN CELL VOLUME 77.2 fl (80-96); MEAN PLT VOLUME 8.2 fl (7.5-11.1); MONO % 7.8 % (3.8-10.2); NEUT % 80.1 % (42.8-82.8); PLATELET COUNT 392 K/MM3 (134-434); RBC 4.26 M/mm3 (4.00-5.60); RDW 17.8 % (11.9-15.9); WHITE BLOOD COUNT 6.3 K/mm3 (4.0-10.0)
[2019-10-26 07:35] LABS: ALBUMIN 2.8 g/dl (3.4-5.0); BILIRUBIN,TOTAL 0.9 mg/dL (0.2-1); BLOOD UREA NITROGEN 22.9 mg/dL (7-18); CALCIUM 9.1 mg/dL (8.5-10.1); CREATININE 0.9 mg/dL (0.55-1.3); POTASSIUM 3.6 mmol/L (3.5-5.1); TOT PROT 6.6 g/dl (6.4-8.2)
[2019-10-26] MEDS: CHLORHEXIDINE GLUCONATE 0.12% 15ML CUP MM SCH ×2 (11:01→21:11)
[2019-10-26] MEDS: PANTOPRAZOLE SODIUM 40 MG VIAL IVPUSH SCH (11:01)
[2019-10-26] MEDS: APIXABAN 5 MG TABLET NGT SCH ×2 (11:01→21:11)
--- NOTE | 2019-10-26 11:10 | CON.NEURO ---
Consult Consult Specialty:: NEUROLOGY-JOYCE ABDI Reason for Consultation:: Right arm weakness - History of Present Illness History of Present Illness: 53 yo M with a hx of diastolic CHF, tracheostomy secondary to respiratory failure with reversal, afib/aflutter on eliquis, sarcoidosis, Guillain Falconer, morbid obesity, pulmonary edema, intubated (08/2019), cardiac arrest (08/2019) who presents with shortness of breath. Per EMS the patient was feeling short of breath for the past few days and was complaining of chest pain. The patient was satting 86 on RA with audible wheeze and was placed on CPAP. -Pt. noted to have right arm weakness mid-week last week after extubation. He has not c/o pain in arm/left chest, just inability to lift arm. Nods "no" to pain anywhere, describes weakness. - Past Medical History Cardio/Vascular: Yes: AFIB, Other (A flutter ) Pulmonary: Yes: O2 Dependent, Previously Intubated, Other (trach reversed) Gastrointestinal: Yes: Other (s/p PEG) Renal/: Yes: Renal Inusuff Endocrine: Yes: Diabetes Mellitus - Alcohol/Substance Use Hx Alcohol Use: No - Smoking History Smoking history: Former smoker Have you smoked in the past 12 months: No If you are a former smoker, when did you quit?: 25 yrs ago Home Medications - Allergies Allergies/Adverse Reactions: Allergies Allergy/AdvReac Type Severity Reaction Status Date / Time No Known Allergies Allergy Verified 06/30/19 02:42 - Home Medications Home Medications: Ambulatory Orders Amino Acids/Protein Hydrolys [Prosource No Carb Liquid Pkt] 30 ml PO BID@0800,1730 packet 06/06/19 Ferrous Sulfate [Feosol] 300 mg NGT BID udc 06/06/19 Insulin (Levemir) [Levemir Vial] 14 units SQ AM units 06/06/19 Insulin Sliding Scale [Novolog Vial Sliding Scale -] 1 vial SQ ACHS units 06/06/19 Thiamine HCl [Vitamin B1 -] 200 mg PO DAILY tablet 06/06/19 Finasteride 5 mg PO DAILY 06/30/19 Albuterol 2.5/Ipratropium 0.5 [Duoneb -] 1 amp NEB RTID #120 amp 09/18/19 Apixaban [Eliquis -] 5 mg PEG BID #60 tablet 09/18/19 Atorvastatin Ca [Lipitor] 40 mg PO HS #30 tablet 09/18/19 Diltiazem Cd [Cardizem Cd -] 240 mg PO DAILY #30 cap.cd.24h 09/18/19 Insulin Sliding Scale [Novolog Vial Sliding Scale -] 1 vial SQ ACHS units 09/18/19 Lisinopril 10 mg PO DAILY #30 tablet 09/18/19 Metoprolol Tartrate [Lopressor -] 50 mg GT BID #60 tablet 09/18/19 Pantoprazole Sodium [Protonix -] 40 mg PO DAILY #30 tablet.ec 09/18/19 Physical Exam-Neuro Vital Signs: Vital Signs Temperature 98.1 F 10/26/19 06:28 Pulse Rate 80 10/26/19 08:00 Respiratory Rate 19 10/26/19 08:35 Blood Pressure 109/74 10/26/19 08:00 O2 Sat by Pulse Oximetry (%) 97 10/26/19 08:35 Labs: CBC, BMP 10/26/19 05:56 10/26/19 05:56 INR, PTT INR 1.18 (0.83-1.09) H 10/14/19 05:30 - Neuro Exam Level Of Consciousness: Yes: Alert (Follows simple commands, answers "yes/no" by nodding head. ) Cranial Nerves II-XII Intact: Yes DTR's: 0 Right Bicep, 0 Right Brachioradialis, 0 Left Achilles, 0 Right Achilles (bilat knee jerks-1+), 1+ Left Bicep, 1+ Left Tricep, 1+ Right Tricep, 1+ Left Brachioradialis Babinski: Absent Response to light touch: Normal Response to pain prick: Normal Response to temperature: Normal Response to vibration: Normal Motor Strength: 3/5: Right Arm (Right Deltoid- 2/5, biceps-3/5, Triceps-2/5, wrist ext/flex-2/5, hand manager distribution center-3/5), 5/5: Left Arm, Left Leg, Right Leg Gait: Other (not testable.) Imaging - Results Cat Scan: Report Reviewed (CT head 10/24 without acute findings.) Assessment/Plan Pt. with right arm weakness, lower motor neuron pattern with absent brachiorad/biceps reflerxes-localization includes upper cord of brachial plexues 2/2 mechanical causes, shoulder joint related causes. Suggest: Right hand splint to keep wrist from flexing excessively. EMGs-will enquire if this can be done in-house in next 4-5 days(it takes time for denervation to appear electrically) . MRI right brachial plexus when able to go for it. Thank you, Marko Almanzar MD
--- NOTE | 2019-10-26 11:35 | PN ---
Progress Note, Physician - Current Medication List Current Medications: Active Medications Apixaban (Eliquis -) 5 mg NGT BID [facility] Last Admin: 10/26/19 11:01 Dose: 5 mg Documented by: Atorvastatin Calcium (Lipitor -) 40 mg PO HS [facility] Last Admin: 10/25/19 21:06 Dose: 40 mg Documented by: Chlorhexidine Gluconate (Hibiclens For Decolonization -) 1 applic TP HS [facility] Last Admin: 10/25/19 21:06 Dose: 1 applic Documented by: Chlorhexidine Gluconate (Peridex -) 15 ml MM BID [facility] Last Admin: 10/26/19 11:01 Dose: 15 ml Documented by: Diltiazem HCl (Cardizem -) 90 mg PO Q6HPO [facility] Last Admin: 10/26/19 05:50 Dose: 90 mg Documented by: Furosemide (Lasix Injection -) 40 mg IVPUSH BID@0600,1400 [facility] Last Admin: 10/26/19 05:50 Dose: 40 mg Documented by: Insulin Aspart (Novolog Vial Sliding Scale -) 1 vial SQ TIDAC [facility]; Protocol Last Admin: 10/26/19 06:26 Dose: Not Given Documented by: Metoprolol Tartrate (Lopressor -) 50 mg PO TID [facility] Last Admin: 10/26/19 05:51 Dose: 50 mg Documented by: Metoprolol Tartrate (Lopressor Injection -) 5 mg IVPUSH Q4H PRN PRN Reason: HYPERTENSION Last Admin: 10/21/19 10:12 Dose: 5 mg Documented by: Miscellaneous (Duragesic Patch Waste) 1 each TD PRN PRN PRN Reason: PAIN Last Admin: 10/25/19 09:55 Dose: 1 each Documented by: Pantoprazole Sodium (Protonix Iv) 40 mg IVPUSH DAILY [facility] Last Admin: 10/26/19 11:01 Dose: 40 mg Documented by: Polyethylene Glycol (Miralax (For Daily Use) -) 17 gm NGT HS@2100 [facility] Last Admin: 10/25/19 21:04 Dose: 17 gm Documented by: Scopolamine HBr (Transderm-Scop -) 1 patch TD Q72H [facility] Last Admin: 10/23/19 21:40 Dose: 1 patch Documented by: - Objective Vital Signs: Vital Signs Temperature 98.1 F 10/26/19 06:28 Pulse Rate 80 07/19/20 08:00 Respiratory Rate 19 10/26/19 08:35 Blood Pressure 109/74 10/26/19 08:00 O2 Sat by Pulse Oximetry (%) 97 10/26/19 08:35 Cardiovascular: Yes: S1, S2 Respiratory: Yes: Regular, CTA Bilaterally Gastrointestinal: Yes: Normal Bowel Sounds, Soft. No: Tenderness Labs: CBC, BMP 10/26/19 05:56 10/26/19 05:56 INR, PTT INR 1.18 (0.83-1.09) H 10/14/19 05:30 Problem List - Problems (1) Acute respiratory failure with hypoxia and hypercapnia Assessment/Plan: VENT SETTING PER PULM MONITOR Code(s): J96.01 - ACUTE RESPIRATORY FAILURE WITH HYPOXIA; J96.02 - ACUTE RESPIRATORY FAILURE WITH HYPERCAPNIA (2) Type 2 diabetes mellitus Assessment/Plan: BGM Code(s): E11.9 - TYPE 2 DIABETES MELLITUS WITHOUT COMPLICATIONS Qualifiers: Diabetes mellitus intermediate project manager insulin use: without half-way use Diabetes mellitus complication detail: with chronic kidney disease Chronic kidney disease stage: stage 2 (mild) (3) Sepsis Assessment/Plan: OFF ABX MONITOR Microbiology 09/28/19 16:35 Sputum - Endotrachea Suction/Ventilator Gram Stain - Final 09/28/19 16:35 Sputum - Endotrachea Suction/Ventilator Sputum Culture - Final Escherichia Coli Esbl Spray Machine Tender Mr S Aureus 09/27/19 05:20 Blood - Peripheral Venous Blood Culture - Final NO GROWTH AFTER 5 DAYS INCUBATION 09/27/19 05:20 Blood - Peripheral Venous Blood Culture - Final NO GROWTH AFTER 5 DAYS INCUBATION 09/28/19 16:35 Urine - Urine Andrews Legionella Antigen - Final 09/28/19 16:35 Urine - Urine Andrews Streptococcus pneumoniae Antigen (M - Final 09/27/19 06:09 Urine - Urine Clean Catch Urine Culture - Final Enterobacter Aerogenes Code(s): A41.9 - SEPSIS, UNSPECIFIED ORGANISM (4) Atrial fibrillation and flutter Assessment/Plan: ON ELIQUIS-METOPROLOL AND CARDIZEM Code(s): I48.91 - UNSPECIFIED ATRIAL FIBRILLATION; I48.92 - UNSPECIFIED ATRIAL FLUTTER (5) CHF exacerbation Assessment/Plan: ON IV LASIX CARDIO ON BOARD Code(s): I50.9 - HEART FAILURE, UNSPECIFIED (6) Pneumonia Assessment/Plan: OFF ABX Code(s): J18.9 - PNEUMONIA, UNSPECIFIED ORGANISM Qualifiers: Pneumonia type: due to unspecified organism (7) Right arm weakness Assessment/Plan: NEURO HEAD CT Code(s): R29.898 - OTH SYMPTOMS AND SIGNS INVOLVING THE MUSCULOSKELETAL SYSTEM
--- NOTE | 2019-10-26 13:22 | PN ---
Progress Note (short form) - Note Progress Note: Patient seen and examined in the SD-ICU. Vented via Trach, awake and interactive. Vent requirements weaning. Still with RUE weakness. Seen by Neuro : possible mechanical compression. OBJECTIVE: Intake & Output 10/23/19 10/24/19 10/25/19 10/26/19 23:59 23:59 23:59 23:59 Intake Total 50 770 980 580 Output Total 2400 1300 1800 450 Balance -2350 -530 -820 130 Weight 254 lb 8 oz 253 lb 11.2 oz 241 lb 12.8 oz 245 lb Last Vital Signs Temp Pulse Resp BP Pulse Ox 98.1 F 80 19 109/74 97 10/26/19 06:28 10/26/19 08:00 10/26/19 08:35 10/26/19 08:00 10/26/19 08:35 Active Medications Apixaban (Eliquis -) [address] [facility] Last Admin: 10/26/19 11:01 Dose: 5 mg Documented by: Atorvastatin Calcium (Lipitor -) 40 mg PO [facility] Last Admin: 10/25/19 21:06 Dose: 40 mg Documented by: Chlorhexidine Gluconate (Hibiclens For Decolonization -) 1 applic TP [facility] Last Admin: 10/25/19 21:06 Dose: 1 applic Documented by: Chlorhexidine Gluconate (Peridex -) [address] [facility] Last Admin: 10/26/19 11:01 Dose: 15 ml Documented by: Diltiazem HCl (Cardizem -) [address] [facility] Last Admin: 10/26/19 12:02 Dose: 90 mg Documented by: Furosemide (Lasix Injection -) 40 mg IVPUSH BID@0600,1400 [facility] Last Admin: 10/26/19 05:50 Dose: 40 mg Documented by: Insulin Aspart (Novolog Vial Sliding Scale -) [address] [facility]; Protocol Last Admin: 10/26/19 06:26 Dose: Not Given Documented by: Metoprolol Tartrate (Lopressor -) [address] [facility] Last Admin: 10/26/19 05:51 Dose: 50 mg Documented by: Metoprolol Tartrate (Lopressor Injection -) 5 mg IVPUSH Q4H PRN PRN Reason: HYPERTENSION Last Admin: 10/21/19 10:12 Dose: 5 mg Documented by: Miscellaneous (Duragesic Patch Waste) 1 each TD PRN PRN PRN Reason: PAIN Last Admin: 10/25/19 09:55 Dose: 1 each Documented by: Pantoprazole Sodium (Protonix Iv) [address] [facility] Last Admin: 10/26/19 11:01 Dose: 40 mg Documented by: Polyethylene Glycol (Miralax (For Daily Use) -) 17 gm NGT HS@2100 [facility] Last Admin: 10/25/19 21:04 Dose: 17 gm Documented by: Scopolamine HBr (Transderm-Scop -) [address] [facility] Last Admin: 10/23/19 21:40 Dose: 1 patch Documented by: Gen: Vented, awake Heart: RRR Lung: scattered rhonchi Abd: soft, nontender Ext: no edema Laboratory Results - last 24 hr 10/25/19 10/26/19 10/26/19 17:15 05:56 05:56 WBC 6.3 RBC 4.26 Hgb 10.5 L Hct 32.9 L MCV 77.2 L MCH 24.6 L MCHC 31.9 L RDW 17.8 H Plt Count 392 MPV 8.2 Absolute Neuts (auto) 5.1 Neutrophils % 80.1 Lymphocytes % 7.8 L D Monocytes % 7.8 Eosinophils % 2.7 Basophils % 1.6 Nucleated RBC % 0 Sodium 136 Potassium 3.6 Chloride 94 L Carbon Dioxide 31 Anion Gap 11 BUN 22.9 H Creatinine 0.9 Est GFR (CKD-EPI)AfAm 113.41 Est GFR (CKD-EPI)NonAf 97.85 POC Glucometer 112 Random Glucose 102 Calcium 9.1 Total Bilirubin 0.9 AST 13 L ALT 15 Alkaline Phosphatase 155 H Total Protein 6.6 Albumin 2.8 L 10/26/19 10/26/19 06:25 11:50 WBC RBC Hgb Hct MCV MCH MCHC RDW Plt Count MPV Absolute Neuts (auto) Neutrophils % Lymphocytes % Monocytes % Eosinophils % Basophils % Nucleated RBC % Sodium Potassium Chloride Carbon Dioxide Anion Gap BUN Creatinine Est GFR (CKD-EPI)AfAm Est GFR (CKD-EPI)NonAf POC Glucometer 109 128 Random Glucose Calcium Total Bilirubin AST ALT Alkaline Phosphatase Total Protein Albumin ASSESSMENT AND PLAN: Acute Hypoxic and Hypercapneic Respiratory Failure S/P Trach UTI Pneumonia ARDS Septic Shock Acute on Chronic Diastolic Heart Failure Volume Overload Atrial Fibrillation/Flutter with RVR h/o COVID19 Sarcoidosis Morbid Obesity EMMY/OHS Anemia - Work up of RUE weakness per Neuro - Wean trials & PMV as tolerated - Eliquis - Off antibiotics per ID - rate control - monitor urine output, creatinine - enteral feeds - GI prophylaxis Dr Maya
[2019-10-26] MEDS: POLYETHYLENE GLYCOL 3350 119 GM BTL NGT SCH (21:09)
[2019-10-26] MEDS: CHLORHEXIDINE GLUCONATE 4% CLEANSER FOR DECOLONIZATION TP SCH (21:11)
[2019-10-26] MEDS: SCOPOLAMINE HYDROBROMIDE 1 PATCH PATCH.TD72 TD SCH (21:11)
[2019-10-26] MEDS: ATORVASTATIN CA 40 MG TABLET (FP) PO SCH (21:11)
[2019-10-27] MEDS: dilTIAZem HCL 60 MG TABLET PO SCH ×3 (05:56→17:37)
[2019-10-27] MEDS: FUROSEMIDE 40 MG/4 ML INJECTABLE VIAL IVPUSH SCH ×2 (05:56→13:16)
[2019-10-27] MEDS: METOPROLOL TARTRATE 50 MG TABLET (FP) PO SCH ×3 (05:57→21:09)
[2019-10-27] MEDS: APIXABAN 5 MG TABLET NGT SCH ×2 (09:42→21:09)
[2019-10-27] MEDS: CHLORHEXIDINE GLUCONATE 0.12% 15ML CUP MM SCH ×2 (09:42→21:09)
[2019-10-27] MEDS: INSULIN SLIDING SCALE (NOVOLOG) 1 VIAL SQ SCH ×3 (09:43→17:36)
[2019-10-27] MEDS: PANTOPRAZOLE SODIUM 40 MG VIAL IVPUSH SCH (09:43)
--- NOTE | 2019-10-27 10:08 | PN ---
Progress Note, Physician History of Present Illness: Remains on a ventilator via tracheostomy, awake and alert no distress, right upper extremity weakness suspicious for brachial plexus injury, persistent atrial flutter with variable ventricular response - Current Medication List Current Medications: Active Medications Apixaban (Eliquis -) 5 mg NGT BID [facility] Last Admin: 10/27/19 09:42 Dose: 5 mg Documented by: Atorvastatin Calcium (Lipitor -) 40 mg PO [facility] Last Admin: 10/26/19 21:11 Dose: 40 mg Documented by: Chlorhexidine Gluconate (Hibiclens For Decolonization -) 1 applic TP [facility] Last Admin: 10/26/19 21:11 Dose: 1 applic Documented by: Chlorhexidine Gluconate (Peridex -) 15 ml MM BID [facility] Last Admin: 10/27/19 09:42 Dose: 15 ml Documented by: Diltiazem HCl (Cardizem -) 90 mg PO Q6HPO [facility] Last Admin: 10/27/19 05:56 Dose: 90 mg Documented by: Furosemide (Lasix Injection -) 40 mg IVPUSH BID@0600,1400 [facility] Last Admin: 10/27/19 05:56 Dose: 40 mg Documented by: Insulin Aspart (Novolog Vial Sliding Scale -) 1 vial SQ TIDAC [facility]; Protocol Last Admin: 10/27/19 09:43 Dose: Not Given Documented by: Metoprolol Tartrate (Lopressor -) 50 mg PO TID [facility] Last Admin: 10/27/19 05:57 Dose: 50 mg Documented by: Metoprolol Tartrate (Lopressor Injection -) 5 mg IVPUSH Q4H PRN PRN Reason: HYPERTENSION Last Admin: 10/21/19 10:12 Dose: 5 mg Documented by: Miscellaneous (Duragesic Patch Waste) 1 each TD PRN PRN PRN Reason: PAIN Last Admin: 10/25/19 09:55 Dose: 1 each Documented by: Pantoprazole Sodium (Protonix Iv) 40 mg IVPUSH DAILY [facility] Last Admin: 10/27/19 09:43 Dose: 40 mg Documented by: Polyethylene Glycol (Miralax (For Daily Use) -) 17 gm NGT HS@2100 [facility] Last Admin: 10/26/19 21:09 Dose: 17 gm Documented by: Scopolamine HBr (Transderm-Scop -) 1 patch TD Q72H [facility] Last Admin: 10/26/19 21:11 Dose: 1 patch Documented by: - Objective Vital Signs: Vital Signs Temperature 97.8 F 10/27/19 06:00 Pulse Rate 104 H 10/27/19 08:10 Respiratory Rate 16 10/27/19 08:10 Blood Pressure 91/76 10/27/19 08:10 O2 Sat by Pulse Oximetry (%) 96 10/27/19 08:10 Constitutional: Yes: No Distress, Calm Neck: Yes: Other (Tracheostomy) Cardiovascular: Yes: Tachycardia, Pulse Irregular Respiratory: Yes: Mechanically Ventilated, Rhonchi Gastrointestinal: Yes: Normal Bowel Sounds, Soft, Abdomen, Obese Genitourinary: Yes: Andrews Present Edema: No Labs: CBC, BMP 10/26/19 05:56 10/26/19 05:56 INR, PTT INR 1.18 (0.83-1.09) H 10/14/19 05:30 - ....Imaging EKG: Report Reviewed (Tele: [facility]) Problem List - Problems (1) Acute respiratory failure with hypoxia and hypercapnia Code(s): J96.01 - ACUTE RESPIRATORY FAILURE WITH HYPOXIA; J96.02 - ACUTE RESPIRATORY FAILURE WITH HYPERCAPNIA (2) Acute decompensated heart failure Code(s): I50.9 - HEART FAILURE, UNSPECIFIED (3) Acute hypercapnic respiratory failure due to obstructive sleep apnea Code(s): J96.02 - ACUTE RESPIRATORY FAILURE WITH HYPERCAPNIA; G47.33 - OBSTRUCTIVE SLEEP APNEA (ADULT) (PEDIATRIC) (4) Atrial fibrillation and flutter Code(s): I48.91 - UNSPECIFIED ATRIAL FIBRILLATION; I48.92 - UNSPECIFIED ATRIAL FLUTTER (5) Sarcoidosis of other sites Code(s): D86.89 - SARCOIDOSIS OF OTHER SITES (6) Sleep apnea Code(s): G47.30 - SLEEP APNEA, UNSPECIFIED Qualifiers: Sleep apnea type: obstructive Qualified Code(s): G47.33 - Obstructive sleep apnea (adult) (pediatric) (7) Type 2 diabetes mellitus Code(s): E11.9 - TYPE 2 DIABETES MELLITUS WITHOUT COMPLICATIONS Qualifiers: Diabetes mellitus extermination supervisor insulin use: without long-term use Diabetes mellitus complication detail: with chronic kidney disease Chronic kidney disease stage: stage 2 (mild) Assessment/Plan 05/01/2019 Normal LV and RV size and fxn, tr TR 03/14/2019 Normal LV size and fxn, no thrombus ADEEL, mild-mod dilated and HK RV, tr MR, mild-mod TR, tr AK, trace pericardial effusion 1. Acute on chronic hypoxic/hypercapnic respiratory failure post tracheostomy on mechanical ventilation 2. History of pneumonia complicated by septic shock- ARDS, last admission/hospitalization 3. Persistent atrial flutter/paroxysmal atrial fibrillation [id number] score of 0 on A/C therapy with intermittent periods of rapid ventricular response 4. Diastolic/systolic LV dysfunction with chronic class 0-I NYHA classification LV failure 5. Sarcoidosis confirmed by skin biopsy, R/O cardiac involvement- for future evaluation/cardiac MRI 6. History of coronavirus/COVID 19 infection 7. DM 8. History of OSAS 9. History of acute on chronic kidney disease, pre-renal azotemia 10. Right upper extremity weakness suspect brachial plexus injury 11. Anemia PLAN: 1. Vent with taper FiO2, PEEP to keep SpO2 >90%, spontaneous breathing trials as tolerated, placed on SIMV 2. Lasix 40 IV bid with monitoring diuretic response, renal function and electrolytes 3. Rate-control with oral Cardizem 90 mg mg QID, Lopressor 50 mg TID, IV Lopressor/Cardizem as needed. Cont Eliquis 5 bid, Lipitor 40 qd 4. Hold lisinopril 10 mg QD pending hemodynamic and renal stability 5. Enteral feeds, DVT/GI prophylaxis 6. EMG, right brachial plexus MRI when able 7. Follow up with Dr. Genaro Davila (cardiology at [place]) as outpatient. Consider cardiac PET or MRI to exclude cardiac involvement in sarcoidosis as outpatient
--- NOTE | 2019-10-27 10:10 | PN ---
Progress Note, Physician - Current Medication List Current Medications: Active Medications Apixaban (Eliquis -) 5 mg NGT BID [facility] Last Admin: 10/26/19 21:11 Dose: 5 mg Documented by: Atorvastatin Calcium (Lipitor -) 40 mg PO HS [facility] Last Admin: 10/26/19 21:11 Dose: 40 mg Documented by: Chlorhexidine Gluconate (Hibiclens For Decolonization -) 1 applic TP HS [facility] Last Admin: 10/26/19 21:11 Dose: 1 applic Documented by: Chlorhexidine Gluconate (Peridex -) 15 ml MM BID [facility] Last Admin: 10/26/19 21:11 Dose: 15 ml Documented by: Diltiazem HCl (Cardizem -) 90 mg PO Q6HPO [facility] Last Admin: 10/27/19 05:56 Dose: 90 mg Documented by: Furosemide (Lasix Injection -) 40 mg IVPUSH BID@0600,1400 [facility] Last Admin: 10/27/19 05:56 Dose: 40 mg Documented by: Insulin Aspart (Novolog Vial Sliding Scale -) 1 vial SQ TIDAC [facility]; Protocol Last Admin: 10/26/19 18:34 Dose: Not Given Documented by: Metoprolol Tartrate (Lopressor -) 50 mg PO TID [facility] Last Admin: 10/27/19 05:57 Dose: 50 mg Documented by: Metoprolol Tartrate (Lopressor Injection -) 5 mg IVPUSH Q4H PRN PRN Reason: HYPERTENSION Last Admin: 10/21/19 10:12 Dose: 5 mg Documented by: Miscellaneous (Duragesic Patch Waste) 1 each TD PRN PRN PRN Reason: PAIN Last Admin: 10/25/19 09:55 Dose: 1 each Documented by: Pantoprazole Sodium (Protonix Iv) 40 mg IVPUSH DAILY [facility] Last Admin: 10/26/19 11:01 Dose: 40 mg Documented by: Polyethylene Glycol (Miralax (For Daily Use) -) 17 gm NGT HS@2100 [facility] Last Admin: 10/26/19 21:09 Dose: 17 gm Documented by: Scopolamine HBr (Transderm-Scop -) 1 patch TD Q72H [facility] Last Admin: 10/26/19 21:11 Dose: 1 patch Documented by: - Objective Vital Signs: Vital Signs Temperature 97.8 F 10/27/19 06:00 Pulse Rate 104 H 10/27/19 08:10 Respiratory Rate 16 10/27/19 08:10 Blood Pressure 91/76 10/27/19 08:10 O2 Sat by Pulse Oximetry (%) 96 10/27/19 08:10 Cardiovascular: Yes: S1, S2 Respiratory: Yes: Mechanically Ventilated Gastrointestinal: Yes: Normal Bowel Sounds, Soft Labs: CBC, BMP 10/26/19 05:56 10/26/19 05:56 INR, PTT INR 1.18 (0.83-1.09) H 10/14/19 05:30 Problem List - Problems (1) Acute respiratory failure with hypoxia and hypercapnia Assessment/Plan: VENT SETTING PER PULM MONITOR Code(s): J96.01 - ACUTE RESPIRATORY FAILURE WITH HYPOXIA; J96.02 - ACUTE RESPIRATORY FAILURE WITH HYPERCAPNIA (2) Type 2 diabetes mellitus Assessment/Plan: BGM Code(s): E11.9 - TYPE 2 DIABETES MELLITUS WITHOUT COMPLICATIONS Qualifiers: Diabetes mellitus dedicated intermodal truck driver insulin use: without correction use Diabetes m ellitus complication detail: with chronic kidney disease Chronic kidney d isease stage: stage 2 (mild) (3) Sepsis Assessment/Plan: OFF ABX MONITOR Microbiology 09/28/19 16:35 Sputum - Endotrachea Suction/Ventilator Gram Stain - Final 09/28/19 16:35 Sputum - Endotrachea Suction/Ventilator Sputum Culture - Final Escherichia Coli Esbl Process Assistant Mr S Aureus 09/27/19 05:20 Blood - Peripheral Venous Blood Culture - Final NO GROWTH AFTER 5 DAYS INCUBATION 09/27/19 05:20 Blood - Peripheral Venous Blood Culture - Final NO GROWTH AFTER 5 DAYS INCUBATION 09/28/19 16:35 Urine - Urine Andrews Legionella Antigen - Final 09/28/19 16:35 Urine - Urine Andrews Streptococcus pneumoniae Antigen (M - Final 09/27/19 06:09 Urine - Urine Clean Catch Urine Culture - Final Enterobacter Aerogenes Code(s): A41.9 - SEPSIS, UNSPECIFIED ORGANISM (4) Atrial fibrillation and flutter Assessment/Plan: ON ELIQUIS-METOPROLOL AND CARDIZEM Code(s): I48.91 - UNSPECIFIED ATRIAL FIBRILLATION; I48.92 - UNSPECIFIED ATRIAL FLUTTER (5) CHF exacerbation Assessment/Plan: ON IV LASIX CARDIO ON BOARD Code(s): I50.9 - HEART FAILURE, UNSPECIFIED (6) Pneumonia Assessment/Plan: OFF ABX Code(s): J18.9 - PNEUMONIA, UNSPECIFIED ORGANISM Qualifiers: Pneumonia type: due to unspecified organism (7) Right arm weakness Code(s): R29.898 - OTH SYMPTOMS AND SIGNS INVOLVING THE MUSCULOSKELETAL SYSTEM
--- NOTE | 2019-10-27 11:16 | PN ---
Progress Note, DIRECTORY CLERK - Note Progress Note: Selected Entries 10/23/19 10/23/19 10/23/19 00:00 00:41 02:00 Lunch Temperature 97.8 F Blood Pressure 137/95 107/70 103/64 10/23/19 10/23/19 10/23/19 04:00 06:00 08:00 Lunch Temperature Blood Pressure 92/58 L 127/88 94/66 10/23/19 10/23/19 10/23/19 14:00 18:00 20:00 Lunch Temperature 98.6 F 98.9 F Blood Pressure 106/80 120/90 103/68 10/23/19 10/24/19 10/24/19 22:00 00:00 02:00 Lunch Temperature 98.1 F 98.6 F Blood Pressure 90/63 97/67 82/60 L 10/24/19 10/24/19 10/24/19 04:00 05:25 06:00 Lunch Temperature 97.1 F L Blood Pressure 99/76 96/66 82/64 L 10/24/19 09:00 Lunch NPO Temperature Blood Pressure Laboratory Tests 10/24/19 05:48 WBC 6.9 Weaning from ventilator in progress. Doing well. NGT in place Noted PMV used on 10/24 and 10/25 Increase PMV use daily MBS per medical team
--- NOTE | 2019-10-27 12:11 | PN ---
Progress Note (short form) - Note Progress Note: PULMONARY Vented, awake, following commands. Vented on volume assist control with 40% FiO2, PEEP 5. Placed on CPAP/PS 10/5 with good TV/RR. Vital Signs Period Temp Pulse Resp BP Sys/[place] Pulse Ox Last 24 Hr 97.8 F-98.4 F 79-120 16-22 90-106/66-82 92-100 Intake & Output 10/24/19 10/25/19 10/26/19 10/27/19 23:59 23:59 23:59 23:59 Intake Total 770 980 580 520 Output Total 1300 1800 1750 300 Balance -530 -820 -1170 220 Weight 115.076 kg 109.679 kg 111.13 kg 105.959 kg Gen: vented, awake Heart: RRR Lung: scattered rhonchi Abd: soft, nontender Ext: trace edema CBC, BMP 10/26/19 05:56 10/26/19 05:56 Active Medications Apixaban (Eliquis -) 5 mg NGT BID [facility] Last Admin: 10/27/19 09:42 Dose: 5 mg Documented by: Atorvastatin Calcium (Lipitor -) 40 mg PO HS [facility] Last Admin: 10/26/19 21:11 Dose: 40 mg Documented by: Chlorhexidine Gluconate (Hibiclens For Decolonization -) 1 applic TP [facility] Last Admin: 10/26/19 21:11 Dose: 1 applic Documented by: Chlorhexidine Gluconate (Peridex -) 15 ml MM BID [facility] Last Admin: 10/27/19 09:42 Dose: 15 ml Documented by: Diltiazem HCl (Cardizem -) 90 mg PO Q6HPO [facility] Last Admin: 10/27/19 05:56 Dose: 90 mg Documented by: Furosemide (Lasix Injection -) 40 mg IVPUSH BID@0600,1400 [facility] Last Admin: 10/27/19 05:56 Dose: 40 mg Documented by: Insulin Aspart (Novolog Vial Sliding Scale -) 1 vial SQ TIDAC [facility]; Protocol Last Admin: 10/27/19 11:46 Dose: Not Given Documented by: Metoprolol Tartrate (Lopressor -) 50 mg PO TID [facility] Last Admin: 10/27/19 05:57 Dose: 50 mg Documented by: Metoprolol Tartrate (Lopressor Injection -) 5 mg IVPUSH Q4H PRN PRN Reason: HYPERTENSION Last Admin: 10/21/19 10:12 Dose: 5 mg Documented by: Miscellaneous (Duragesic Patch Waste) 1 each TD PRN PRN PRN Reason: PAIN Last Admin: 10/25/19 09:55 Dose: 1 each Documented by: Pantoprazole Sodium (Protonix Iv) 40 mg IVPUSH DAILY [facility] Last Admin: 10/27/19 09:43 Dose: 40 mg Documented by: Polyethylene Glycol (Miralax (For Daily Use) -) 17 gm NGT HS@2100 [facility] Last Admin: 10/26/19 21:09 Dose: 17 gm Documented by: Scopolamine HBr (Transderm-Scop -) 1 patch TD Q72H [facility] Last Admin: 10/26/19 21:11 Dose: 1 patch Documented by: A/P Acute Hypoxic and Hypercapneic Respiratory Failure s/p Tracheostomy UTI Pneumonia ARDS Septic Shock resolved Acute on Chronic Diastolic Heart Failure Volume Overload resolving Atrial Fibrillation/Flutter with RVR h/o COVID19 Sarcoidosis Morbid Obesity EMMY/OHS Anemia - completed antibiotics - off pressors - rate control - continue anticoagulation - continue lasix - monitor urine output, creatinine - taper FiO2, PEEP to keep SpO2 >90% - spontaneous breathing trials as tolerated - PMV as tolerated - enteral feeds - DVT/GI prophylaxis
[2019-10-27] MEDS: ATORVASTATIN CA 40 MG TABLET (FP) PO SCH (21:09)
[2019-10-27] MEDS: CHLORHEXIDINE GLUCONATE 4% CLEANSER FOR DECOLONIZATION TP SCH (21:09)
[2019-10-27] MEDS: POLYETHYLENE GLYCOL 3350 119 GM BTL NGT SCH (21:10)
[2019-10-28] MEDS: dilTIAZem HCL 60 MG TABLET PO SCH ×4 (01:17→18:17)
[2019-10-28] MEDS: METOPROLOL TARTRATE 50 MG TABLET (FP) PO SCH ×3 (05:40→22:01)
[2019-10-28] MEDS: FUROSEMIDE 40 MG/4 ML INJECTABLE VIAL IVPUSH SCH ×2 (05:41→13:32)
[2019-10-28] MEDS: INSULIN SLIDING SCALE (NOVOLOG) 1 VIAL SQ SCH ×3 (06:20→16:46)
--- NOTE | 2019-10-28 09:45 | PN ---
Progress Note, Physician - Current Medication List Current Medications: Active Medications Apixaban (Eliquis -) 5 mg NGT BID [facility] Last Admin: 10/27/19 21:09 Dose: 5 mg Documented by: Atorvastatin Calcium (Lipitor -) 40 mg PO HS [facility] Last Admin: 10/27/19 21:09 Dose: 40 mg Documented by: Chlorhexidine Gluconate (Hibiclens For Decolonization -) 1 applic TP HS [facility] Last Admin: 10/27/19 21:09 Dose: 1 applic Documented by: Chlorhexidine Gluconate (Peridex -) 15 ml MM BID [facility] Last Admin: 10/27/19 21:09 Dose: 15 ml Documented by: Diltiazem HCl (Cardizem -) 90 mg PO Q6HPO [facility] Last Admin: 10/28/19 05:41 Dose: 90 mg Documented by: Furosemide (Lasix Injection -) 40 mg IVPUSH BID@0600,1400 [facility] Last Admin: 10/28/19 05:41 Dose: 40 mg Documented by: Insulin Aspart (Novolog Vial Sliding Scale -) 1 vial SQ TIDAC [facility]; Protocol Last Admin: 10/28/19 06:20 Dose: Not Given Documented by: Metoprolol Tartrate (Lopressor -) 50 mg PO TID [facility] Last Admin: 10/28/19 05:40 Dose: 50 mg Documented by: Metoprolol Tartrate (Lopressor Injection -) 5 mg IVPUSH Q4H PRN PRN Reason: HYPERTENSION Last Admin: 10/21/19 10:12 Dose: 5 mg Documented by: Miscellaneous (Duragesic Patch Waste) 1 each TD PRN PRN PRN Reason: PAIN Last Admin: 10/25/19 09:55 Dose: 1 each Documented by: Pantoprazole Sodium (Protonix Iv) 40 mg IVPUSH DAILY [facility] Last Admin: 10/27/19 09:43 Dose: 40 mg Documented by: Polyethylene Glycol (Miralax (For Daily Use) -) 17 gm NGT HS@2100 [facility] Last Admin: 10/27/19 21:10 Dose: 17 gm Documented by: Scopolamine HBr (Transderm-Scop -) 1 patch TD Q72H [facility] Last Admin: 10/26/19 21:11 Dose: 1 patch Documented by: - Objective Vital Signs: Vital Signs Temperature 98.0 F 10/28/19 08:00 Pulse Rate 97 H 10/28/19 08:19 Respiratory Rate 13 10/28/19 08:19 Blood Pressure 115/77 10/28/19 08:00 O2 Sat by Pulse Oximetry (%) 98 10/28/19 08:19 Cardiovascular: Yes: S1, S2 Respiratory: Yes: Regular, CTA Bilaterally Gastrointestinal: Yes: Normal Bowel Sounds, Soft Labs: CBC, BMP 10/26/19 05:56 10/26/19 05:56 INR, PTT INR 1.18 (0.83-1.09) H 10/14/19 05:30 Problem List - Problems (1) Acute respiratory failure with hypoxia and hypercapnia Assessment/Plan: VENT SETTING PER PULM MONITOR mbs when cleared by pulm Code(s): J96.01 - ACUTE RESPIRATORY FAILURE WITH HYPOXIA; J96.02 - ACUTE RESPIRATORY FAILURE WITH HYPERCAPNIA (2) Type 2 diabetes mellitus Assessment/Plan: BGM Code(s): E11.9 - TYPE 2 DIABETES MELLITUS WITHOUT COMPLICATIONS Qualifiers: Diabetes mellitus nursing home insulin use: 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 Diabetes mellitus complication detail: with chronic kidney disease Chronic kidney disease stage: stage 2 (mild) (3) Sepsis Assessment/Plan: OFF ABX MONITOR Microbiology 09/28/19 16:35 Sputum - Endotrachea Suction/Ventilator Gram Stain - Final 09/28/19 16:35 Sputum - Endotrachea Suction/Ventilator Sputum Culture - Final Escherichia Coli Esbl [employer] Mr S Aureus 09/27/19 05:20 Blood - Peripheral Venous Blood Culture - Final NO GROWTH AFTER 5 DAYS INCUBATION 09/27/19 05:20 Blood - Peripheral Venous Blood Culture - Final NO GROWTH AFTER 5 DAYS INCUBATION 09/28/19 16:35 Urine - Urine Andrews Legionella Antigen - Final 09/28/19 16:35 Urine - Urine Andrews Streptococcus pneumoniae Antigen (M - Final 09/27/19 06:09 Urine - Urine Clean Catch Urine Culture - Final Enterobacter Aerogenes Code(s): A41.9 - SEPSIS, UNSPECIFIED ORGANISM (4) Atrial fibrillation and flutter Assessment/Plan: ON ELIQUIS-METOPROLOL AND CARDIZEM Code(s): I48.91 - UNSPECIFIED ATRIAL FIBRILLATION; I48.92 - UNSPECIFIED ATRIAL FLUTTER (5) CHF exacerbation Assessment/Plan: ON IV LASIX CARDIO ON BOARD Code(s): I50.9 - HEART FAILURE, UNSPECIFIED (6) Pneumonia Assessment/Plan: OFF ABX Code(s): J18.9 - PNEUMONIA, UNSPECIFIED ORGANISM Qualifiers: Pneumonia type: due to unspecified organism (7) Right arm weakness Assessment/Plan: NEURO appreciated HEAD CT noted nad pt Code(s): R29.898 - OTH SYMPTOMS AND SIGNS INVOLVING THE MUSCULOSKELETAL SYSTEM
[2019-10-28] MEDS: CHLORHEXIDINE GLUCONATE 0.12% 15ML CUP MM SCH ×2 (10:27→22:01)
[2019-10-28] MEDS: APIXABAN 5 MG TABLET NGT SCH ×2 (10:27→22:01)
[2019-10-28] MEDS: PANTOPRAZOLE SODIUM 40 MG VIAL IVPUSH SCH (10:27)
--- NOTE | 2019-10-28 11:22 | PN ---
Progress Note (short form) - Note Progress Note: PULMONARY Vented, awake, following commands. Currently on PMV, tolerating well. Vital Signs Period Temp Pulse Resp BP Sys/[place] Pulse Ox Last 24 Hr 98.0 F-98.2 F 90-114 8-20 98-130/62-89 96-100 Gen: vented, awake Heart: RRR Lung: scattered rhonchi Abd: soft, nontender Ext: trace edema CBC, BMP 10/26/19 05:56 10/26/19 05:56 Active Medications Apixaban (Eliquis -) 5 mg NGT BID [facility] Last Admin: 10/28/19 10:27 Dose: 5 mg Documented by: Atorvastatin Calcium (Lipitor -) 40 mg PO [facility] Last Admin: 10/27/19 21:09 Dose: 40 mg Documented by: Chlorhexidine Gluconate (Hibiclens For Decolonization -) 1 applic TP [facility] Last Admin: 10/27/19 21:09 Dose: 1 applic Documented by: Chlorhexidine Gluconate (Peridex -) 15 ml MM BID [facility] Last Admin: 10/28/19 10:27 Dose: 15 ml Documented by: Diltiazem HCl (Cardizem -) 90 mg PO Q6HPO [facility] Last Admin: 10/28/19 05:41 Dose: 90 mg Documented by: Furosemide (Lasix Injection -) 40 mg IVPUSH BID@0600,1400 [facility] Last Admin: 10/28/19 05:41 Dose: 40 mg Documented by: Insulin Aspart (Novolog Vial Sliding Scale -) 1 vial SQ TIDAC [facility]; Protocol Last Admin: 10/28/19 11:00 Dose: 2 units Documented by: Metoprolol Tartrate (Lopressor -) 50 mg PO TID [facility] Last Admin: 10/28/19 05:40 Dose: 50 mg Documented by: Metoprolol Tartrate (Lopressor Injection -) 5 mg IVPUSH Q4H PRN PRN Reason: HYPERTENSION Last Admin: 10/21/19 10:12 Dose: 5 mg Documented by: Miscellaneous (Duragesic Patch Waste) 1 each TD PRN PRN PRN Reason: PAIN Last Admin: 10/25/19 09:55 Dose: 1 each Documented by: Pantoprazole Sodium (Protonix Iv) 40 mg IVPUSH DAILY [facility] Last Admin: 10/28/19 10:27 Dose: 40 mg Documented by: Polyethylene Glycol (Miralax (For Daily Use) -) 17 gm NGT HS@2100 [facility] Last Admin: 10/27/19 21:10 Dose: 17 gm Documented by: Scopolamine HBr (Transderm-Scop -) 1 patch TD Q72H [facility] Last Admin: 10/26/19 21:11 Dose: 1 patch Documented by: A/P Acute Hypoxic and Hypercapneic Respiratory Failure s/p Tracheostomy UTI Pneumonia ARDS Septic Shock resolved Acute on Chronic Diastolic Heart Failure Volume Overload resolving Atrial Fibrillation/Flutter with RVR h/o COVID19 Sarcoidosis Morbid Obesity EMMY/OHS Anemia - completed antibiotics - off pressors - rate control - continue anticoagulation - continue lasix - monitor urine output, creatinine - taper FiO2, PEEP to keep SpO2 >90% - spontaneous breathing trials as tolerated, can transition to trach collar - PMV as tolerated - enteral feeds, swallow eval - DVT/GI prophylaxis
--- NOTE | 2019-10-28 11:39 | PN ---
Progress Note, Physician Chief Complaint: Events noted Ventilator via tracheostomy Atrial flutter with RVR History of Present Illness: Patient was seen and examined in ICU. Chart was reviewed Awake and alert - Current Medication List Current Medications: Active Medications Apixaban (Eliquis -) 5 mg NGT BID [facility] Last Admin: 10/28/19 10:27 Dose: 5 mg Documented by: Atorvastatin Calcium (Lipitor -) 40 mg PO HS [facility] Last Admin: 10/27/19 21:09 Dose: 40 mg Documented by: Chlorhexidine Gluconate (Hibiclens For Decolonization -) 1 applic TP [facility] Last Admin: 10/27/19 21:09 Dose: 1 applic Documented by: Chlorhexidine Gluconate (Peridex -) 15 ml MM BID [facility] Last Admin: 10/28/19 10:27 Dose: 15 ml Documented by: Diltiazem HCl (Cardizem -) 90 mg PO Q6HPO [facility] Last Admin: 10/28/19 05:41 Dose: 90 mg Documented by: Furosemide (Lasix Injection -) 40 mg IVPUSH BID@0600,1400 [facility] Last Admin: 10/28/19 05:41 Dose: 40 mg Documented by: Insulin Aspart (Novolog Vial Sliding Scale -) 1 vial SQ TIDAC [facility]; Protocol Last Admin: 10/28/19 11:00 Dose: 2 units Documented by: Metoprolol Tartrate (Lopressor -) 50 mg PO TID [facility] Last Admin: 10/28/19 05:40 Dose: 50 mg Documented by: Metoprolol Tartrate (Lopressor Injection -) 5 mg IVPUSH Q4H PRN PRN Reason: HYPERTENSION Last Admin: 10/21/19 10:12 Dose: 5 mg Documented by: Miscellaneous (Duragesic Patch Waste) 1 each TD PRN PRN PRN Reason: PAIN Last Admin: 10/25/19 09:55 Dose: 1 each Documented by: Pantoprazole Sodium (Protonix Iv) 40 mg IVPUSH DAILY [facility] Last Admin: 10/28/19 10:27 Dose: 40 mg Documented by: Polyethylene Glycol (Miralax (For Daily Use) -) 17 gm NGT HS@2100 [facility] Last Admin: 10/27/19 21:10 Dose: 17 gm Documented by: Scopolamine HBr (Transderm-Scop -) 1 patch TD Q72H [facility] Last Admin: 10/26/19 21:11 Dose: 1 patch Documented by: - Objective Vital Signs: Vital Signs Temperature 98.0 F 10/28/19 08:00 Pulse Rate 97 H 10/28/19 08:19 Respiratory Rate 13 10/28/19 08:19 Blood Pressure 115/77 10/28/19 08:00 O2 Sat by Pulse Oximetry (%) 99 10/28/19 10:23 Neck: Yes: Supple Cardiovascular: Yes: Tachycardia, Pulse Irregular, S1, S2 Respiratory: Yes: Diminished Gastrointestinal: Yes: Normal Bowel Sounds, Soft. No: Tenderness Edema: No Labs: CBC, BMP 10/26/19 05:56 10/26/19 05:56 Problem List - Problems (1) Acute respiratory failure with hypoxia and hypercapnia Code(s): J96.01 - ACUTE RESPIRATORY FAILURE WITH HYPOXIA; J96.02 - ACUTE RESPIRATORY FAILURE WITH HYPERCAPNIA (2) CHF (congestive heart failure) Code(s): I50.9 - HEART FAILURE, UNSPECIFIED Qualifiers: Heart failure type: unspecified Heart failure chronicity: acute on chronic Qualified Code(s): I50.9 - Heart failure, unspecified (3) Respiratory distress Code(s): R06.03 - ACUTE RESPIRATORY DISTRESS (4) Acute on chronic renal failure Code(s): N17.9 - ACUTE KIDNEY FAILURE, UNSPECIFIED; N18.9 - CHRONIC KIDNEY DISEASE, UNSPECIFIED (5) Atrial fibrillation and flutter Code(s): I48.91 - UNSPECIFIED ATRIAL FIBRILLATION; I48.92 - UNSPECIFIED ATRIAL FLUTTER (6) Septic shock Code(s): A41.9 - SEPSIS, UNSPECIFIED ORGANISM; R65.21 - SEVERE SEPSIS WITH SEPTIC SHOCK (7) Sleep apnea Code(s): G47.30 - SLEEP APNEA, UNSPECIFIED Qualifiers: Sleep apnea type: obstructive Qualified Code(s): G47.33 - Obstructive sleep apnea (adult) (pediatric) (8) Type 2 diabetes mellitus Code(s): E11.9 - TYPE 2 DIABETES MELLITUS WITHOUT COMPLICATIONS Qualifiers: Diabetes mellitus assisted insulin use: without assisted use Diabetes mellitus complication detail: with chronic kidney disease Chronic kidney disease stage: stage 2 (mild) Assessment/Plan 1. Acute on chronic hypoxic/hypercapnic respiratory failure post tracheostomy on mechanical ventilation 2. History of pneumonia complicated by septic shock - ARDS 3. Persistent atrial flutter/paroxysmal atrial fibrillation with intermittent periods of rapid ventricular response 4. Diastolic/systolic LV dysfunction with chronic class 0-I NYHA classification LV failure 5. Sarcoidosis confirmed by skin biopsy, R/O cardiac involvement - for future evaluation/cardiac MRI 6. History of coronavirus/COVID 19 infection 7. DM 8. History of OSAS 9. History of acute on chronic kidney disease, pre-renal azotemia 10. Right upper extremity weakness suspect brachial plexus injury 11. Anemia PLAN: 1. Vent management 2. Lasix 40 IV BID with monitoring of renal function and electrolytes 3. Rate-control with oral Cardizem 90 mg QID, Lopressor 50 mg TID, IV Lopressor/Cardizem as needed. Cont Eliquis 5 mg BID and Lipitor 40 mg QHS 4. Hold lisinopril 10 mg QD pending hemodynamic and renal stability 5. Enteral feeds and DVT/GI prophylaxis 6. EMG, right brachial plexus MRI when able 7. Follow up with Dr. Genaro Davila (cardiology at [place]) as outpatient. Consider cardiac PET or MRI to exclude cardiac involvement in sarcoidosis as outpatient Shin Cutler MD
--- NOTE | 2019-10-28 11:49 | PN ---
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 TENDER - Note Progress Note: Selected Entries 10/28/19 10/28/19 10/28/19 02:00 04:02 06:00 Breakfast Temperature 98.1 F Pulse Rate 114 H 97 H Blood Pressure 119/89 122/88 O2 Sat by Pulse 98 98 Oximetry (%) Oxygen Delivery Method Fraction of 40 Inspired Oxygen (FIO2) 10/28/19 10/28/19 10/28/19 08:00 08:19 10:23 Breakfast NPO Temperature 98.0 F Pulse Rate 94 H 97 H Blood Pressure 115/77 O2 Sat by Pulse 100 98 99 Oximetry (%) Oxygen Delivery Mechanical Mechanical Method Ventilator Ventilator Fraction of 40 40 Inspired Oxygen (FIO2) Laboratory Tests 10/26/19 05:56 WBC 6.3 Pt tolerating PMV very well. Plan is to transition to trach collar. For mbs,once ordered by medical team
--- NOTE | 2019-10-28 13:55 | CONSULT ---
Consult Consult Specialty:: PM&R Dr Gay for Dr Jacobo - History of Present Illness Chief Complaint: RUE weakness improving History of Present Illness: This is a 54 year old man with a medical history of morbid obesity, dCHF, A fib/ A flutter, 08/2019 cardiac arrest c/b resp failure s/p tracheostomy (reversed), pulm edema, GBS, sarcoid, DM with nephropathy, who presented to the ED 09/27/2019 with SOB. He was diagnosed with CHF exacerbation and acute respiratory failure with hypoxia for which he was admitted to the ICU. He had a prolonged hospital course. 10/25/2019 nursing and MD notes reported RUE weakness compared to L; Neurology consult recommended R cock-up wrist splint, MRI plexus and EMG RUE once time appropriate. He has not been seen by PT. Physiatry was consulted for further recommendations. - Past Medical History Cardio/Vascular: Yes: AFIB, Other (A flutter ) Pulmonary: Yes: O2 Dependent, Previously Intubated, Other (trach reversed) Gastrointestinal: Yes: Other (s/p PEG) Renal/: Yes: Renal Inusuff Endocrine: Yes: Diabetes Mellitus - Alcohol/Substance Use Hx Alcohol Use: No - Smoking History Smoking history: Former smoker Have you smoked in the past 12 months: No If you are a former smoker, when did you quit?: 25 yrs ago - Social History Usual Living Arrangement: With Spouse (in apartment with 5 steps to enter) ADL: Independent (without AD) Home Medications - Allergies Allergies/Adverse Reactions: Allergies Allergy/AdvReac Type Severity Reaction Status Date / Time No Known Allergies Allergy Verified 06/30/19 02:42 - Home Medications Home Medications: Ambulatory Orders Amino Acids/Protein Hydrolys [Prosource No Carb Liquid Pkt] 30 ml PO BID@0800,1730 packet 06/06/19 Ferrous Sulfate [Feosol] 300 mg NGT BID udc 06/06/19 Insulin (Levemir) [Levemir Vial] 14 units SQ AM units 06/06/19 Insulin Sliding Scale [Novolog Vial Sliding Scale -] 1 vial SQ ACHS units 06/06/19 Thiamine HCl [Vitamin B1 -] 200 mg PO DAILY tablet 06/06/19 Finasteride 5 mg PO DAILY 06/30/19 Albuterol 2.5/Ipratropium 0.5 [Duoneb -] 1 amp NEB RTID #120 amp 09/18/19 Apixaban [Eliquis -] 5 mg PEG BID #60 tablet 09/18/19 Atorvastatin Ca [Lipitor] 40 mg PO HS #30 tablet 09/18/19 Diltiazem Cd [Cardizem Cd -] 240 mg PO DAILY #30 cap.cd.24h 09/18/19 Insulin Sliding Scale [Novolog Vial Sliding Scale -] 1 vial SQ ACHS units 09/18/19 Lisinopril 10 mg PO DAILY #30 tablet 09/18/19 Metoprolol Tartrate [Lopressor -] 50 mg GT BID #60 tablet 09/18/19 Pantoprazole Sodium [Protonix -] 40 mg PO DAILY #30 tablet.ec 09/18/19 Review of Systems Findings/Remarks: Denies fevers, chills, changes in vision/ hearing, CP, SOB, abdominal pain, nausea, vomiting, constipation, numbness/ paresthesias BUE, muscle/ joint pain Notes being anxious about walking again, Andrews in place, RUE weakness which is improving Physical Exam Vital Signs: Vital Signs Temperature 98.3 F 10/28/19 12:00 Pulse Rate 104 H 10/28/19 12:00 Respiratory Rate 19 10/28/19 12:00 Blood Pressure 103/73 10/28/19 12:00 O2 Sat by Pulse Oximetry (%) 99 10/28/19 12:00 Musculoskeletal: Yes: Other (General: calm HM sitting in bed NAD, awake and alert; L shoulder flexion to 75 degrees, 4+/5 LUE except for 4/5 L delt; 3/5 RUE except for 2/5 R biceps, 1/5 B HF, 3/5 B KE, 4/5 B DF/ EHL; trace RUE/ no BLE pitting edema, no B calf tenderness) Labs: CBC, BMP 10/26/19 05:56 10/26/19 05:56 Assessment/Plan Impression: 1) Deficits mobility/ ADLs 2) Deconditioning 3) Gait abnormality 4) RUE weakness, improving 5) Resp failure, on trach collar, with hx 08/2019 resp failure s/p tracheostomy (reversed), pulm edema 6) CHFexcaerbation with hx A fib/ A flutter, 08/2019 cardiac arrest 7) Morbid obesity 8) hx GBS 9) hx sarcoid 10) DM with nephropathy 11) Up to date pneumovax, no documented flu shot 12) Anemia Recommendations: 1) PT for stretching strengthening ROM and functional mobility 2) Falls, safety precautions 3) Cardiopulmonary precautions 4) Continue plan per Neurology: would recommend EMG no sooner than 11/04/2019 (10 days following development in RUE weakness which is earliest NCS ie nerve conductions would show changes) and ideally closer to 11/15/2019 (takes 3 weeks for EMG itself ie the needle study, to show changes), which can be done in house if needed (as long as pt COVID negative) although preferably once out of ICU due to amount of electrical interference typical in ICU setting which can make interpretation difficult 5) DVT ppx: on Eliquis 6) Denies constipation on current bowel regimen 7) Skin protection: float heels, q2 hour turning 8) Monitor CBC given anemia 9) Nutrition consult for obesity 10) Continue plan per primary team 11) Discharge planning: given length of time in ICU, he would likely benefit from ARSALAN once medically stable Thank you for this referral. Please order EMG once time and setting appropriate.
[2019-10-28] MEDS: POLYETHYLENE GLYCOL 3350 119 GM BTL NGT SCH (22:01)
[2019-10-28] MEDS: CHLORHEXIDINE GLUCONATE 4% CLEANSER FOR DECOLONIZATION TP SCH (22:01)
[2019-10-28] MEDS: ATORVASTATIN CA 40 MG TABLET (FP) PO SCH (22:01)
[2019-10-29] MEDS: dilTIAZem HCL 60 MG TABLET PO SCH ×3 (01:00→12:18)
[2019-10-29] MEDS: FUROSEMIDE 40 MG/4 ML INJECTABLE VIAL IVPUSH SCH ×2 (05:48→13:08)
[2019-10-29] MEDS: METOPROLOL TARTRATE 50 MG TABLET (FP) PO SCH ×3 (05:49→22:14)
[2019-10-29] MEDS: INSULIN SLIDING SCALE (NOVOLOG) 1 VIAL SQ SCH ×3 (06:01→16:59)
--- NOTE | 2019-10-29 09:37 | PN ---
Progress Note, Physician - Current Medication List Current Medications: Active Medications Apixaban (Eliquis -) 5 mg NGT BID [facility] Last Admin: 10/28/19 22:01 Dose: 5 mg Documented by: Atorvastatin Calcium (Lipitor -) 40 mg PO HS [facility] Last Admin: 10/28/19 22:01 Dose: 40 mg Documented by: Chlorhexidine Gluconate (Hibiclens For Decolonization -) 1 applic TP HS [facility] Last Admin: 10/28/19 22:01 Dose: 1 applic Documented by: Chlorhexidine Gluconate (Peridex -) 15 ml MM BID [facility] Last Admin: 10/28/19 22:01 Dose: 15 ml Documented by: Diltiazem HCl (Cardizem -) 90 mg PO Q6HPO [facility] Last Admin: 10/29/19 05:49 Dose: 90 mg Documented by: Furosemide (Lasix Injection -) 40 mg IVPUSH BID@0600,1400 [facility] Last Admin: 10/29/19 05:48 Dose: 40 mg Documented by: Insulin Aspart (Novolog Vial Sliding Scale -) 1 vial SQ TIDAC [facility]; Protocol Last Admin: 10/29/19 06:01 Dose: 2 units Documented by: Metoprolol Tartrate (Lopressor -) 50 mg PO TID [facility] Last Admin: 10/29/19 05:49 Dose: 50 mg Documented by: Metoprolol Tartrate (Lopressor Injection -) 5 mg IVPUSH Q4H PRN PRN Reason: HYPERTENSION Last Admin: 10/21/19 10:12 Dose: 5 mg Documented by: Miscellaneous (Duragesic Patch Waste) 1 each TD PRN PRN PRN Reason: PAIN Last Admin: 10/25/19 09:55 Dose: 1 each Documented by: Pantoprazole Sodium (Protonix Iv) 40 mg IVPUSH DAILY [facility] Last Admin: 10/28/19 10:27 Dose: 40 mg Documented by: Polyethylene Glycol (Miralax (For Daily Use) -) 17 gm NGT HS@2100 [facility] Last Admin: 10/28/19 22:01 Dose: 17 gm Documented by: Scopolamine HBr (Transderm-Scop -) 1 patch TD Q72H [facility] Last Admin: 10/26/19 21:11 Dose: 1 patch Documented by: - Objective Vital Signs: Vital Signs Temperature 97.6 F 10/29/19 08:00 Pulse Rate 86 07/22/20 08:00 Respiratory Rate 17 10/29/19 08:54 Blood Pressure 81/58 L 10/29/19 08:00 O2 Sat by Pulse Oximetry (%) 99 10/29/19 08:54 Cardiovascular: Yes: S1, S2 Respiratory: Yes: Mechanically Ventilated Gastrointestinal: Yes: Normal Bowel Sounds, Soft Genitourinary: Yes: Other Labs: CBC, BMP 10/26/19 05:56 10/26/19 05:56 INR, PTT INR 1.18 (0.83-1.09) H 10/14/19 05:30 Problem List - Problems (1) Acute respiratory failure with hypoxia and hypercapnia Assessment/Plan: VENT SETTING PER PULM MONITOR mbs when cleared by pulm Code(s): J96.01 - ACUTE RESPIRATORY FAILURE WITH HYPOXIA; J96.02 - ACUTE RESPIRATORY FAILURE WITH HYPERCAPNIA (2) Type 2 diabetes mellitus Assessment/Plan: BGM Code(s): E11.9 - TYPE 2 DIABETES MELLITUS WITHOUT COMPLICATIONS Qualifiers: Diabetes mellitus custodial insulin use: without laborer marine terminal use Diabetes mellitus complication detail: with chronic kidney disease Chronic kidney disease stage: stage 2 (mild) (3) Sepsis Assessment/Plan: OFF ABX MONITOR Microbiology 09/28/19 16:35 Sputum - Endotrachea Suction/Ventilator Gram Stain - Final 09/28/19 16:35 Sputum - Endotrachea Suction/Ventilator Sputum Culture - Final Escherichia Coli Esbl [employer]inter Repair Technician Mr S Aureus 09/27/19 05:20 Blood - Peripheral Venous Blood Culture - Final NO GROWTH AFTER 5 DAYS INCUBATION 09/27/19 05:20 Blood - Peripheral Venous Blood Culture - Final NO GROWTH AFTER 5 DAYS INCUBATION 09/28/19 16:35 Urine - Urine Ortiz Legionella Antigen - Final 09/28/19 16:35 Urine - Urine Ortiz Streptococcus pneumoniae Antigen (M - F inal 09/27/19 06:09 Urine - Urine Clean Catch Urine Culture - Final Enterobacter Aerogenes Code(s): A41.9 - SEPSIS, UNSPECIFIED ORGANISM (4) Atrial fibrillation and flutter Assessment/Plan: ON ELIQUIS-METOPROLOL AND CARDIZEM Code(s): I48.91 - UNSPECIFIED ATRIAL FIBRILLATION; I48.92 - UNSPECIFIED ATRIAL FLUTTER (5) CHF exacerbation Assessment/Plan: ON IV LASIX CARDIO ON BOARD Code(s): I50.9 - HEART FAILURE, UNSPECIFIED (6) Pneumonia Assessment/Plan: OFF ABX Code(s): J18.9 - PNEUMONIA, UNSPECIFIED ORGANISM Qualifiers: Pneumonia type: due to unspecified organism (7) Right arm weakness Assessment/Plan: NEURO appreciated HEAD CT noted nad pt Code(s): R29.898 - OTH SYMPTOMS AND SIGNS INVOLVING THE MUSCULOSKELETAL SYSTEM (8) Urinary retention Assessment/Plan: ortiz out large volume with scan now voiding monitor Code(s): R33.9 - RETENTION OF URINE, UNSPECIFIED
[2019-10-29] MEDS ORDERED: FINASTERIDE 5 MG TABLET (FP) PO SCH ×2 (10:00→14:39)
[2019-10-29] MEDS: PANTOPRAZOLE SODIUM 40 MG VIAL IVPUSH SCH (10:13)
[2019-10-29] MEDS: CHLORHEXIDINE GLUCONATE 0.12% 15ML CUP MM SCH ×2 (10:13→22:13)
[2019-10-29] MEDS: APIXABAN 5 MG TABLET NGT SCH ×2 (10:13→22:14)
--- NOTE | 2019-10-29 11:14 | PN ---
Progress Note, Physician History of Present Illness: Remains on a ventilator via tracheostomy on trach collar, awake and alert no distress, persistent atrial flutter with variable ventricular response - Current Medication List Current Medications: Active Medications Apixaban (Eliquis -) 5 mg NGT BID [facility] Last Admin: 10/29/19 10:13 Dose: 5 mg Documented by: Atorvastatin Calcium (Lipitor -) 40 mg PO HS [facility] Last Admin: 10/28/19 22:01 Dose: 40 mg Documented by: Chlorhexidine Gluconate (Hibiclens For Decolonization -) 1 applic TP [facility] Last Admin: 10/28/19 22:01 Dose: 1 applic Documented by: Chlorhexidine Gluconate (Peridex -) 15 ml MM BID [facility] Last Admin: 10/29/19 10:13 Dose: 15 ml Documented by: Diltiazem HCl (Cardizem -) 90 mg PO Q6HPO [facility] Last Admin: 10/29/19 05:49 Dose: 90 mg Documented by: Finasteride (Proscar -) 5 mg PO DAILY [facility] Furosemide (Lasix Injection -) 40 mg IVPUSH BID@0600,1400 [facility] Last Admin: 10/29/19 05:48 Dose: 40 mg Documented by: Insulin Aspart (Novolog Vial Sliding Scale -) 1 vial SQ TIDAC [facility]; Protocol Last Admin: 10/29/19 10:52 Dose: 2 units Documented by: Metoprolol Tartrate (Lopressor -) 50 mg PO TID [facility] Last Admin: 10/29/19 05:49 Dose: 50 mg Documented by: Metoprolol Tartrate (Lopressor Injection -) 5 mg IVPUSH Q4H PRN PRN Reason: HYPERTENSION Last Admin: 10/21/19 10:12 Dose: 5 mg Documented by: Miscellaneous (Duragesic Patch Waste) 1 each TD PRN PRN PRN Reason: PAIN Last Admin: 10/25/19 09:55 Dose: 1 each Documented by: Pantoprazole Sodium (Protonix Iv) 40 mg IVPUSH DAILY [facility] Last Admin: 10/29/19 10:13 Dose: 40 mg Documented by: Polyethylene Glycol (Miralax (For Daily Use) -) 17 gm NGT HS@2100 [facility] Last Admin: 10/28/19 22:01 Dose: 17 gm Documented by: Scopolamine HBr (Transderm-Scop -) 1 patch TD Q72H [facility] Last Admin: 10/26/19 21:11 Dose: 1 patch Documented by: - Objective Vital Signs: Vital Signs Temperature 97.8 F 10/29/19 10:00 Pulse Rate 110 H 10/29/19 10:00 Respiratory Rate 16 10/29/19 10:00 Blood Pressure 93/59 L 10/29/19 10:00 O2 Sat by Pulse Oximetry (%) 100 10/29/19 10:00 Constitutional: Yes: No Distress, Calm HENT: Yes: Other (Trach collar) Cardiovascular: Yes: Pulse Irregular Respiratory: Yes: Rhonchi Gastrointestinal: Yes: Normal Bowel Sounds, Soft, Abdomen, Obese Edema: No Labs: CBC, BMP 10/26/19 05:56 10/26/19 05:56 INR, PTT INR 1.18 (0.83-1.09) H 10/14/19 05:30 - ....Imaging EKG: Report Reviewed (Tele: [facility]) Problem List - Problems (1) Acute respiratory failure with hypoxia and hypercapnia Code(s): J96.01 - ACUTE RESPIRATORY FAILURE WITH HYPOXIA; J96.02 - ACUTE RESPIRATORY FAILURE WITH HYPERCAPNIA (2) Acute decompensated heart failure Code(s): I50.9 - HEART FAILURE, UNSPECIFIED (3) Acute hypercapnic respiratory failure due to obstructive sleep apnea Code(s): J96.02 - ACUTE RESPIRATORY FAILURE WITH HYPERCAPNIA; G47.33 - OBSTRUCTIVE SLEEP APNEA (ADULT) (PEDIATRIC) (4) Atrial fibrillation and flutter Code(s): I48.91 - UNSPECIFIED ATRIAL FIBRILLATION; I48.92 - UNSPECIFIED ATRIAL FLUTTER (5) Sarcoidosis of other sites Code(s): D86.89 - SARCOIDOSIS OF OTHER SITES (6) Sleep apnea Code(s): G47.30 - SLEEP APNEA, UNSPECIFIED Qualifiers: Sleep apnea type: obstructive Qualified Code(s): G47.33 - Obstructive sleep apnea (adult) (pediatric) (7) Type 2 diabetes mellitus Code(s): E11.9 - TYPE 2 DIABETES MELLITUS WITHOUT COMPLICATIONS Qualifiers: Diabetes mellitus group home insulin use: without intermediate designer use Diabetes mellitus complication detail: with chronic kidney disease Chronic kidney disease stage: stage 2 (mild) Assessment/Plan 05/01/2019 Normal LV and RV size and fxn, tr TR 03/14/2019 Normal LV size and fxn, no thrombus ADEEL, mild-mod dilated and HK RV, tr MR, mild-mod TR, tr [place], trace pericardial effusion 1. Acute on chronic hypoxic/hypercapnic respiratory failure post tracheostomy on mechanical ventilation 2. History of pneumonia complicated by septic shock- ARDS, last admission/hospitalization 3. Persistent atrial flutter/paroxysmal atrial fibrillation [id number] score of 0 on A/C therapy with intermittent periods of rapid ventricular response 4. Diastolic/systolic LV dysfunction with chronic class 0-I NYHA classification LV failure 5. Sarcoidosis confirmed by skin biopsy, R/O cardiac involvement- for future evaluation/cardiac MRI 6. History of coronavirus/COVID 19 infection 7. DM 8. History of OSAS 9. History of acute on chronic kidney disease, pre-renal azotemia 10. Right upper extremity weakness suspect brachial plexus injury 11. Anemia PLAN: 1. Vent with taper FiO2, PEEP to keep SpO2 >90%, spontaneous breathing trials as tolerated, placed on TC with PMV as tolerated 2. Lasix 40 po bid with monitoring diuretic response, renal function and electrolytes 3. Rate-control with oral Cardizem 90 mg mg QID, Lopressor 50 mg TID, IV Lopressor/Cardizem as needed. Cont Eliquis 5 bid, Lipitor 40 qd 4. Hold lisinopril 10 mg QD pending hemodynamic and renal stability 5. Enteral feeds, DVT/GI prophylaxis 6. EMG, right brachial plexus MRI when able 7. Follow up with Dr. Genaro Davila (cardiology at [place]) as outpatient. Consider cardiac PET or MRI to exclude cardiac involvement in sarcoidosis as outpatient
[2019-10-29] MEDS ORDERED: PT OWN MED DRAWER 7, Y5N ONE (12:13)
--- NOTE | 2019-10-29 12:24 | PN ---
Progress Note (short form) - Note Progress Note: PULMONARY Vented, awake, following commands. Currently on PMV, tolerating well. Vital Signs Period Temp Pulse Resp BP Sys/[place] Pulse Ox Last 24 Hr 97.5 F-98.2 F 72-118 15-23 81-130/58-89 94-100 Intake & Output 10/26/19 10/27/19 10/28/19 10/29/19 23:59 23:59 23:59 23:59 Intake Total 551 002 9647 780 Output Total 1750 1700 1200 800 Balance -1170 -970 295 -20 Weight 111.13 kg 105.959 kg 106.367 kg 108.136 kg Gen: vented, awake Heart: RRR Lung: scattered rhonchi Abd: soft, nontender Ext: trace edema CBC, BMP 10/26/19 05:56 10/26/19 05:56 Active Medications Apixaban (Eliquis -) 5 mg NGT BID [facility] Last Admin: 10/29/19 10:13 Dose: 5 mg Documented by: Atorvastatin Calcium (Lipitor -) 40 mg PO HS [facility] Last Admin: 10/28/19 22:01 Dose: 40 mg Documented by: Chlorhexidine Gluconate (Hibiclens For Decolonization -) 1 applic TP [facility] Last Admin: 10/28/19 22:01 Dose: 1 applic Documented by: Chlorhexidine Gluconate (Peridex -) 15 ml MM BID [facility] Last Admin: 10/29/19 10:13 Dose: 15 ml Documented by: Diltiazem HCl (Cardizem -) 90 mg PO Q6HPO [facility] Last Admin: 10/29/19 12:18 Dose: 90 mg Documented by: Finasteride (Proscar -) 5 mg PO DAILY [facility] Furosemide (Lasix Injection -) 40 mg IVPUSH BID@0600,1400 [facility] Last Admin: 10/29/19 05:48 Dose: 40 mg Documented by: Insulin Aspart (Novolog Vial Sliding Scale -) 1 vial SQ TIDAC [facility]; Protocol Last Admin: 10/29/19 10:52 Dose: 2 units Documented by: Metoprolol Tartrate (Lopressor -) 50 mg PO TID [facility] Last Admin: 10/29/19 05:49 Dose: 50 mg Documented by: Metoprolol Tartrate (Lopressor Injection -) 5 mg IVPUSH Q4H PRN PRN Reason: HYPERTENSION Last Admin: 10/21/19 10:12 Dose: 5 mg Documented by: Miscellaneous (Duragesic Patch Waste) 1 each TD PRN PRN PRN Reason: PAIN Last Admin: 10/25/19 09:55 Dose: 1 each Documented by: Pantoprazole Sodium (Protonix Iv) 40 mg IVPUSH DAILY [facility] Last Admin: 10/29/19 10:13 Dose: 40 mg Documented by: Polyethylene Glycol (Miralax (For Daily Use) -) 17 gm NGT HS@2100 [facility] Last Admin: 10/28/19 22:01 Dose: 17 gm Documented by: Scopolamine HBr (Transderm-Scop -) 1 patch TD Q72H [facility] Last Admin: 10/26/19 21:11 Dose: 1 patch Documented by: A/P Acute Hypoxic and Hypercapneic Respiratory Failure s/p Tracheostomy UTI Pneumonia ARDS resolved Septic Shock resolved Acute on Chronic Diastolic Heart Failure Volume Overload resolving Atrial Fibrillation/Flutter with RVR h/o COVID19 Sarcoidosis Morbid Obesity EMMY/OHS Anemia - completed antibiotics - off pressors - rate control - continue anticoagulation - continue lasix - monitor urine output, creatinine - taper FiO2, PEEP to keep SpO2 >90% - spontaneous breathing trials as tolerated, can transition to trach collar - PMV as tolerated - enteral feeds, swallow eval - DVT/GI prophylaxis
--- NOTE | 2019-10-29 12:26 | PN ---
Progress Note, [employer] SUPPORT SPECIALIST - Note Progress Note: Selected Entries 10/28/19 10/28/19 10/28/19 02:00 04:02 06:00 Breakfast Temperature 98.1 F Pulse Rate 114 H 97 H Blood Pressure 119/89 122/88 O2 Sat by Pulse 98 98 Oximetry (%) Oxygen Delivery Method Fraction of 40 Inspired Oxygen (FIO2) 10/28/19 10/28/19 10/28/19 08:00 08:19 10:23 Breakfast NPO Temperature 98.0 F Pulse Rate 94 H 97 H Blood Pressure 115/77 O2 Sat by Pulse 100 98 99 Oximetry (%) Oxygen Delivery Mechanical Mechanical Method Ventilator Ventilator Fraction of 40 40 Inspired Oxygen (FIO2) Laboratory Tests 10/26/19 05:56 WBC 6.3 Selected Entries 10/29/19 10/29/19 10/29/19 00:00 02:00 04:00 Breakfast Temperature 97.8 F Blood Pressure 92/67 98/62 105/84 10/29/19 10/29/19 10/29/19 06:00 08:00 10:00 Breakfast NPO Temperature 97.5 F L 97.6 F 97.8 F Blood Pressure 107/68 81/58 L 93/59 L 10/29/19 12:10 Breakfast Temperature 98.0 F Blood Pressure 97/79 Strong euphonic voice. Pt tolerating PMV very well. Plan is to transition to trach collar. For mbs,once ordered by medical team
[2019-10-29] MEDS: FUROSEMIDE 40 MG TABLET (FP) PO SCH (14:33)
[2019-10-29] MEDS: dilTIAZem HCL 60 MG TABLET NGT SCH (18:25)
[2019-10-29] MEDS: CHLORHEXIDINE GLUCONATE 4% CLEANSER FOR DECOLONIZATION TP SCH (22:14)
[2019-10-29] MEDS: ATORVASTATIN CA 40 MG TABLET (FP) NGT SCH (22:14)
[2019-10-29] MEDS: SCOPOLAMINE HYDROBROMIDE 1 PATCH PATCH.TD72 TD SCH (22:16)
[2019-10-29] MEDS: POLYETHYLENE GLYCOL 3350 119 GM BTL NGT SCH (22:20)
[2019-10-30] MEDS: dilTIAZem HCL 60 MG TABLET NGT SCH ×4 (01:03→18:09)
[2019-10-30] MEDS: FUROSEMIDE 40 MG TABLET (FP) PO SCH ×2 (06:24→14:51)
[2019-10-30] MEDS: METOPROLOL TARTRATE 50 MG TABLET (FP) PO SCH ×3 (06:25→22:02)
[2019-10-30] MEDS: INSULIN SLIDING SCALE (NOVOLOG) 1 VIAL SQ SCH ×3 (06:37→18:20)
--- NOTE | 2019-10-30 08:02 | PN ---
Progress Note, Physician - Current Medication List Current Medications: Active Medications Apixaban (Eliquis -) 5 mg NGT BID [facility] Last Admin: 10/29/19 22:14 Dose: 5 mg Documented by: Atorvastatin Calcium (Lipitor -) 40 mg NGT HS [facility] Last Admin: 10/29/19 22:14 Dose: 40 mg Documented by: Chlorhexidine Gluconate (Hibiclens For Decolonization -) 1 applic TP HS [facility] Last Admin: 10/29/19 22:14 Dose: 1 applic Documented by: Chlorhexidine Gluconate (Peridex -) 15 ml MM BID [facility] Last Admin: 10/29/19 22:13 Dose: 15 ml Documented by: Diltiazem HCl (Cardizem -) 90 mg NGT Q6HPO [facility] Last Admin: 10/30/19 06:25 Dose: 90 mg Documented by: Finasteride (Proscar -) 5 mg NR DAILY [facility] Furosemide (Lasix -) 40 mg PO BID@0600,1400 [facility] Last Admin: 10/30/19 06:24 Dose: 40 mg Documented by: Insulin Aspart (Novolog Vial Sliding Scale -) 1 vial SQ TIDAC [facility]; Protocol Last Admin: 10/30/19 06:37 Dose: Not Given Documented by: Metoprolol Tartrate (Lopressor -) 50 mg PO TID [facility] Last Admin: 10/30/19 06:25 Dose: 50 mg Documented by: Metoprolol Tartrate (Lopressor Injection -) 5 mg IVPUSH Q4H PRN PRN Reason: HYPERTENSION Last Admin: 10/21/19 10:12 Dose: 5 mg Documented by: Miscellaneous (Duragesic Patch Waste) 1 each TD PRN PRN PRN Reason: PAIN Last Admin: 10/25/19 09:55 Dose: 1 each Documented by: Pantoprazole Sodium (Protonix Iv) 40 mg IVPUSH DAILY [facility] Last Admin: 10/29/19 10:13 Dose: 40 mg Documented by: Polyethylene Glycol (Miralax (For Daily Use) -) 17 gm NGT HS@2100 [facility] Last Admin: 10/29/19 22:20 Dose: 17 gm Documented by: Scopolamine HBr (Transderm-Scop -) 1 patch TD Q72H [facility] Last Admin: 10/29/19 22:16 Dose: 1 patch Documented by: - Objective Vital Signs: Vital Signs Temperature 98.5 F 10/30/19 05:56 Pulse Rate 107 H 10/30/19 05:56 Respiratory Rate 16 10/30/19 05:56 Blood Pressure 105/74 10/30/19 05:56 O2 Sat by Pulse Oximetry (%) 83 L 10/30/19 05:56 Cardiovascular: Yes: S1, S2 Respiratory: Yes: Other (trach collar) Gastrointestinal: Yes: Normal Bowel Sounds, Soft Labs: CBC, BMP 10/26/19 05:56 10/26/19 05:56 INR, PTT INR 1.18 (0.83-1.09) H 10/14/19 05:30 Problem List - Problems (1) Acute respiratory failure with hypoxia and hypercapnia Assessment/Plan: now on trach collar MONITOR mbs Code(s): J96.01 - ACUTE RESPIRATORY FAILURE WITH HYPOXIA; J96.02 - ACUTE RESPIRATORY FAILURE WITH HYPERCAPNIA (2) Type 2 diabetes mellitus Assessment/Plan: BGM Code(s): E11.9 - TYPE 2 DIABETES MELLITUS WITHOUT COMPLICATIONS Qualifiers: Diabetes mellitus superintendent marine oil terminal insulin use: without superintendent marine oil terminal use Diabetes mellitus complication detail: with chronic kidney disease Chronic kidney disease stage: stage 2 (mild) (3) Sepsis Assessment/Plan: OFF ABX MONITOR Microbiology 09/28/19 16:35 Sputum - Endotrachea Suction/Ventilator Gram Stain - Final 09/28/19 16:35 Sputum - Endotrachea Suction/Ventilator Sputum Culture - Final Escherichia Coli Esbl 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 Pan 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 Mr S Aureus 09/27/19 05:20 Blood - Peripheral Venous Blood Culture - Final NO GROWTH AFTER 5 DAYS INCUBATION 09/27/19 05:20 Blood - Peripheral Venous Blood Culture - Final NO GROWTH AFTER 5 DAYS INCUBATION 09/28/19 16:35 Urine - Urine Ortiz Legionella Antigen - Final 09/28/19 16:35 Urine - Urine Ortiz Streptococcus pneumoniae Antigen (M - Final 09/27/19 06:09 Urine - Urine Clean Catch Urine Culture - Final Enterobacter Aerogenes Code(s): A41.9 - SEPSIS, UNSPECIFIED ORGANISM (4) Atrial fibrillation and flutter Assessment/Plan: ON ELIQUIS-METOPROLOL AND CARDIZEM Code(s): I48.91 - UNSPECIFIED ATRIAL FIBRILLATION; I48.92 - UNSPECIFIED ATRIAL FLUTTER (5) CHF exacerbation Assessment/Plan: ON IV LASIX CARDIO ON BOARD Code(s): I50.9 - HEART FAILURE, UNSPECIFIED (6) Pneumonia Assessment/Plan: OFF ABX Code(s): J18.9 - PNEUMONIA, UNSPECIFIED ORGANISM Qualifiers: Pneumonia type: due to unspecified organism (7) Right arm weakness Assessment/Plan: NEURO appreciated HEAD CT noted nad pt Code(s): R29.898 - OTH SYMPTOMS AND SIGNS INVOLVING THE MUSCULOSKELETAL SYSTEM (8) Urinary retention Assessment/Plan: ortiz out large volume with scan now voiding monitor Code(s): R33.9 - RETENTION OF URINE, UNSPECIFIED
--- NOTE | 2019-10-30 10:31 | PN ---
Progress Note, Physician History of Present Illness: Remains on a ventilator via tracheostomy on trach collar, awake and alert no distress, persistent atrial flutter with variable ventricular response - Current Medication List Current Medications: Active Medications Apixaban (Eliquis -) 5 mg NGT BID [facility] Last Admin: 10/29/19 22:14 Dose: 5 mg Documented by: Atorvastatin Calcium (Lipitor -) 40 mg NGT HS [facility] Last Admin: 10/29/19 22:14 Dose: 40 mg Documented by: Chlorhexidine Gluconate (Hibiclens For Decolonization -) 1 applic TP HS [facility] Last Admin: 10/29/19 22:14 Dose: 1 applic Documented by: Chlorhexidine Gluconate (Peridex -) 15 ml MM BID [facility] Last Admin: 10/29/19 22:13 Dose: 15 ml Documented by: Diltiazem HCl (Cardizem -) 90 mg NGT Q6HPO [facility] Last Admin: 10/30/19 06:25 Dose: 90 mg Documented by: Finasteride (Proscar -) 5 mg NR DAILY [facility] Furosemide (Lasix -) 40 mg PO BID@0600,1400 [facility] Last Admin: 10/30/19 06:24 Dose: 40 mg Documented by: Insulin Aspart (Novolog Vial Sliding Scale -) 1 vial SQ TIDAC [facility]; Protocol Last Admin: 10/30/19 06:37 Dose: Not Given Documented by: Metoprolol Tartrate (Lopressor -) 50 mg PO TID [facility] Last Admin: 10/30/19 06:25 Dose: 50 mg Documented by: Metoprolol Tartrate (Lopressor Injection -) 5 mg IVPUSH Q4H PRN PRN Reason: HYPERTENSION Last Admin: 10/21/19 10:12 Dose: 5 mg Documented by: Miscellaneous (Duragesic Patch Waste) 1 each TD PRN PRN PRN Reason: PAIN Last Admin: 10/25/19 09:55 Dose: 1 each Documented by: Pantoprazole Sodium (Protonix Iv) 40 mg IVPUSH DAILY [facility] Last Admin: 10/29/19 10:13 Dose: 40 mg Documented by: Polyethylene Glycol (Miralax (For Daily Use) -) 17 gm NGT HS@2100 [facility] Last Admin: 10/29/19 22:20 Dose: 17 gm Documented by: Scopolamine HBr (Transderm-Scop -) 1 patch TD Q72H [facility] Last Admin: 10/29/19 22:16 Dose: 1 patch Documented by: - Objective Vital Signs: Vital Signs Temperature 97.7 F 10/30/19 08:00 Pulse Rate 95 H 10/30/19 08:20 Respiratory Rate 20 10/30/19 08:00 Blood Pressure 91/78 10/30/19 08:00 O2 Sat by Pulse Oximetry (%) 98 10/30/19 08:20 Constitutional: Yes: No Distress, Calm HENT: Yes: Other (Trach collar) Cardiovascular: Yes: Pulse Irregular Respiratory: Yes: Rhonchi Gastrointestinal: Yes: Normal Bowel Sounds, Soft, Abdomen, Obese Edema: No Integumentary: Yes: Venous Stasis Changes Labs: CBC, BMP 10/26/19 05:56 10/26/19 05:56 INR, PTT INR 1.18 (0.83-1.09) H 10/14/19 05:30 Problem List - Problems (1) Acute respiratory failure with hypoxia and hypercapnia Code(s): J96.01 - ACUTE RESPIRATORY FAILURE WITH HYPOXIA; J96.02 - ACUTE RESPIRATORY FAILURE WITH HYPERCAPNIA (2) Acute decompensated heart failure Code(s): I50.9 - HEART FAILURE, UNSPECIFIED (3) Acute hypercapnic respiratory failure due to obstructive sleep apnea Code(s): J96.02 - ACUTE RESPIRATORY FAILURE WITH HYPERCAPNIA; G47.33 - OBSTRUCTIVE SLEEP APNEA (ADULT) (PEDIATRIC) (4) Atrial fibrillation and flutter Code(s): I48.91 - UNSPECIFIED ATRIAL FIBRILLATION; I48.92 - UNSPECIFIED ATRIAL FLUTTER (5) Sarcoidosis of other sites Code(s): D86.89 - SARCOIDOSIS OF OTHER SITES (6) Sleep apnea Code(s): G47.30 - SLEEP APNEA, UNSPECIFIED Qualifiers: Sleep apnea type: obstructive Qualified Code(s): G47.33 - Obstructive sleep apnea (adult) (pediatric) (7) Type 2 diabetes mellitus Code(s): E11.9 - TYPE 2 DIABETES MELLITUS WITHOUT COMPLICATIONS Qualifiers: Diabetes mellitus longterm insulin use: without terminal supervisor use Diabetes mellitus complication detail: with chronic kidney disease Chronic kidney disease stage: stage 2 (mild) Assessment/Plan 05/01/2019 Normal LV and RV size and fxn, tr TR 03/14/2019 Normal LV size and fxn, no thrombus ADEEL, mild-mod dilated and HK RV, tr MR, mild-mod TR, tr [place], trace pericardial effusion 1. Acute on chronic hypoxic/hypercapnic respiratory failure post tracheostomy on mechanical ventilation 2. History of pneumonia complicated by septic shock- ARDS, last admission/hospitalization 3. Persistent atrial flutter/paroxysmal atrial fibrillation [id number] score of 0 on A/C therapy with intermittent periods of rapid ventricular response 4. Diastolic/systolic LV dysfunction with chronic class 0-I NYHA classification LV failure 5. Sarcoidosis confirmed by skin biopsy, R/O cardiac involvement- for future evaluation/cardiac MRI 6. History of coronavirus/COVID 19 infection 7. DM 8. History of OSAS 9. History of acute on chronic kidney disease, pre-renal azotemia 10. Right upper extremity weakness suspect brachial plexus injury 11. Anemia PLAN: 1. Vent with taper FiO2, PEEP to keep SpO2 >90%, spontaneous breathing trials as tolerated, placed on TC with PMV as tolerated 2. Lasix 40 po bid with monitoring diuretic response, renal function and e lectrolytes 3. Rate-control with oral Cardizem 90 mg mg QID, Lopressor 50 mg TID, IV Lopressor/Cardizem as needed. Cont Eliquis 5 bid, Lipitor 40 qd 4. Hold lisinopril 10 mg QD pending hemodynamic and renal stability 5. Dysphagia diet with PMV, DVT/GI prophylaxis 6. EMG, right brachial plexus MRI when able 7. Follow up with Dr. Genaro Davila (cardiology at [place]) as outpatient. Consider cardiac PET or MRI to exclude cardiac involvement in sarcoidosis as outpatient
[2019-10-30] MEDS: PANTOPRAZOLE SODIUM 40 MG VIAL IVPUSH SCH (10:39)
[2019-10-30] MEDS: FINASTERIDE 5 MG TABLET (FP) NR SCH (10:39)
[2019-10-30] MEDS: CHLORHEXIDINE GLUCONATE 0.12% 15ML CUP MM SCH ×2 (10:39→22:02)
--- NOTE | 2019-10-30 11:57 | PN ---
Progress Note (short form) - Note Progress Note: PULMONARY Vented, awake, following commands. Currently on PMV/trach collar. Vital Signs Period Temp Pulse Resp BP Sys/[place] Pulse Ox Last 24 Hr 97.7 F-98.6 F 76-118 16-20 91-120/66-90 83-112 Intake & Output 10/27/19 10/28/19 10/29/19 10/30/19 23:59 23:59 23:59 23:59 Intake Total 730 1495 1495 380 Output Total 1700 1200 1400 700 Balance -970 295 95 -320 Weight 105.959 kg 106.367 kg 108.136 kg 109.355 kg Gen: vented, awake Heart: RRR Lung: scattered rhonchi Abd: soft, nontender Ext: trace edema CBC, BMP 10/26/19 05:56 10/26/19 05:56 Active Medications Apixaban (Eliquis -) 5 mg NGT BID [facility] Last Admin: 10/29/19 22:14 Dose: 5 mg Documented by: Atorvastatin Calcium (Lipitor -) 40 mg NGT HS [facility] Last Admin: 10/29/19 22:14 Dose: 40 mg Documented by: Chlorhexidine Gluconate (Hibiclens For Decolonization -) 1 applic TP [facility] Last Admin: 10/29/19 22:14 Dose: 1 applic Documented by: Chlorhexidine Gluconate (Peridex -) 15 ml MM BID [facility] Last Admin: 10/30/19 10:39 Dose: 15 ml Documented by: Diltiazem HCl (Cardizem -) 90 mg NGT Q6HPO [facility] Last Admin: 10/30/19 06:25 Dose: 90 mg Documented by: Finasteride (Proscar -) 5 mg NR DAILY [facility] Last Admin: 10/30/19 10:39 Dose: 5 mg Documented by: Furosemide (Lasix -) 40 mg PO BID@0600,1400 [facility] Last Admin: 10/30/19 06:24 Dose: 40 mg Documented by: Insulin Aspart (Novolog Vial Sliding Scale -) 1 vial SQ TIDAC [facility]; Protocol Last Admin: 10/30/19 11:15 Dose: 2 units Documented by: Metoprolol Tartrate (Lopressor -) 50 mg PO TID [facility] Last Admin: 10/30/19 06:25 Dose: 50 mg Documented by: Metoprolol Tartrate (Lopressor Injection -) 5 mg IVPUSH Q4H PRN PRN Reason: HYPERTENSION Last Admin: 10/21/19 10:12 Dose: 5 mg Documented by: Miscellaneous (Duragesic Patch Waste) 1 each TD PRN PRN PRN Reason: PAIN Last Admin: 10/25/19 09:55 Dose: 1 each Documented by: Pantoprazole Sodium (Protonix Iv) 40 mg IVPUSH DAILY [facility] Last Admin: 10/30/19 10:39 Dose: 40 mg Documented by: Polyethylene Glycol (Miralax (For Daily Use) -) 17 gm NGT HS@2100 [facility] Last Admin: 10/29/19 22:20 Dose: 17 gm Documented by: Scopolamine HBr (Transderm-Scop -) 1 patch TD Q72H [facility] Last Admin: 10/29/19 22:16 Dose: 1 patch Documented by: A/P Acute Hypoxic and Hypercapneic Respiratory Failure s/p Tracheostomy UTI Pneumonia ARDS resolved Septic Shock resolved Acute on Chronic Diastolic Heart Failure Volume Overload resolving Atrial Fibrillation/Flutter with RVR h/o COVID19 Sarcoidosis Morbid Obesity EMMY/OHS Anemia - completed antibiotics - rate control - continue anticoagulation - continue lasix - monitor urine output, creatinine - taper FiO2, PEEP to keep SpO2 >90% - trach collar, PMV as tolerated - swallow eval in progress - DVT/GI prophylaxis
[2019-10-30] MEDS: APIXABAN 5 MG TABLET NGT SCH ×2 (12:13→22:02)
[2019-10-30] MEDS: ATORVASTATIN CA 40 MG TABLET (FP) NGT SCH (22:02)
[2019-10-30] MEDS: CHLORHEXIDINE GLUCONATE 4% CLEANSER FOR DECOLONIZATION TP SCH (22:02)
[2019-10-30] MEDS: POLYETHYLENE GLYCOL 3350 119 GM BTL NGT SCH (22:03)
[2019-10-31] MEDS: dilTIAZem HCL 60 MG TABLET NGT SCH ×4 (01:17→18:17)
[2019-10-31] MEDS: FUROSEMIDE 40 MG TABLET (FP) PO SCH ×2 (06:07→13:45)
[2019-10-31] MEDS: METOPROLOL TARTRATE 50 MG TABLET (FP) PO SCH ×3 (06:07→21:00)
[2019-10-31] MEDS: INSULIN SLIDING SCALE (NOVOLOG) 1 VIAL SQ SCH ×3 (07:02→18:15)
[2019-10-31] MEDS ORDERED: PT OWN MED DRAWER 7, Y5N ONE (09:23)
[2019-10-31] MEDS: APIXABAN 5 MG TABLET NGT SCH ×2 (09:57→21:00)
[2019-10-31] MEDS: FINASTERIDE 5 MG TABLET (FP) NR SCH (09:57)
[2019-10-31] MEDS: CHLORHEXIDINE GLUCONATE 0.12% 15ML CUP MM SCH ×2 (09:58→21:07)
[2019-10-31] MEDS: PANTOPRAZOLE SODIUM 40 MG VIAL IVPUSH SCH (10:11)
--- NOTE | 2019-10-31 10:15 | PN ---
Progress Note, Physician - Current Medication List Current Medications: Active Medications Apixaban (Eliquis -) 5 mg NGT BID [facility] Last Admin: 10/31/19 09:57 Dose: 5 mg Documented by: Atorvastatin Calcium (Lipitor -) 40 mg NGT HS [facility] Last Admin: 10/30/19 22:02 Dose: 40 mg Documented by: Chlorhexidine Gluconate (Hibiclens For Decolonization -) 1 applic TP HS [facility] Last Admin: 10/30/19 22:02 Dose: 1 applic Documented by: Chlorhexidine Gluconate (Peridex -) 15 ml MM BID [facility] Last Admin: 10/31/19 09:58 Dose: 15 ml Documented by: Diltiazem HCl (Cardizem -) 90 mg NGT Q6HPO [facility] Last Admin: 10/31/19 06:07 Dose: 90 mg Documented by: Finasteride (Proscar -) 5 mg NR DAILY [facility] Last Admin: 10/31/19 09:57 Dose: 5 mg Documented by: Furosemide (Lasix -) 40 mg PO BID@0600,1400 [facility] Last Admin: 10/31/19 06:07 Dose: 40 mg Documented by: Insulin Aspart (Novolog Vial Sliding Scale -) 1 vial SQ TIDAC [facility]; Protocol Last Admin: 10/31/19 07:02 Dose: 2 units Documented by: Metoprolol Tartrate (Lopressor -) 50 mg PO TID [facility] Last Admin: 10/31/19 06:07 Dose: 50 mg Documented by: Metoprolol Tartrate (Lopressor Injection -) 5 mg IVPUSH Q4H PRN PRN Reason: HYPERTENSION Last Admin: 10/21/19 10:12 Dose: 5 mg Documented by: Miscellaneous (Duragesic Patch Waste) 1 each TD PRN PRN PRN Reason: PAIN Last Admin: 10/25/19 09:55 Dose: 1 each Documented by: Pantoprazole Sodium (Protonix Iv) 40 mg IVPUSH DAILY [facility] Last Admin: 10/31/19 10:11 Dose: 40 mg Documented by: Polyethylene Glycol (Miralax (For Daily Use) -) 17 gm NGT HS@2100 [facility] Last Admin: 10/30/19 22:03 Dose: 17 gm Documented by: Scopolamine HBr (Transderm-Scop -) 1 patch TD Q72H [facility] Last Admin: 10/29/19 22:16 Dose: 1 patch Documented by: - Objective Vital Signs: Vital Signs Temperature 97.4 F L 10/30/19 12:00 Pulse Rate 99 H 10/31/19 08:08 Respiratory Rate 11 10/31/19 04:30 Blood Pressure 115/86 10/31/19 04:00 O2 Sat by Pulse Oximetry (%) 95 10/31/19 08:08 Cardiovascular: Yes: Regular Rate and Rhythm Respiratory: Yes: Rhonchi (scattered), Other (trach collar) Labs: CBC, BMP 10/26/19 05:56 10/26/19 05:56 INR, PTT INR 1.18 (0.83-1.09) H 10/14/19 05:30 Problem List - Problems (1) Acute respiratory failure with hypoxia and hypercapnia Assessment/Plan: now on trach collar MONITOR stable Code(s): J96.01 - ACUTE RESPIRATORY FAILURE WITH HYPOXIA; J96.02 - ACUTE RESPIRATORY FAILURE WITH HYPERCAPNIA (2) Type 2 diabetes mellitus Assessment/Plan: [facility] Code(s): E11.9 - TYPE 2 DIABETES MELLITUS WITHOUT COMPLICATIONS Qualifiers: Diabetes mellitus intermediate card tender insulin use: without intermediate card tender use Diabetes mellitus complication detail: with chronic kidney disease Chronic kidney disease stage: stage 2 (mild) (3) Sepsis Assessment/Plan: OFF ABX MONITOR Microbiology 09/28/19 16:35 Sputum - Endotrachea Suction/Ventilator Gram Stain - Final 09/28/19 16:35 Sputum - Endotrachea Suction/Ventilator Sputum Culture - Final Escherichia Coli Esbl [employer]of [employer] Mr S Aureus 09/27/19 05:20 Blood - Peripheral Venous Blood Culture - Final NO GROWTH AFTER 5 DAYS INCUBATION 09/27/19 05:20 Blood - Peripheral Venous Blood Culture - Final NO GROWTH AFTER 5 DAYS INCUBATION 09/28/19 16:35 Urine - Urine Ortiz Legionella Antigen - Final 09/28/19 16:35 Urine - Urine Ortiz Streptococcus pneumoniae Antigen (M - Final 09/27/19 06:09 Urine - Urine Clean Catch Urine Culture - Final Enterobacter Aerogenes Code(s): A41.9 - SEPSIS, UNSPECIFIED ORGANISM (4) Atrial fibrillation and flutter Assessment/Plan: ON ELIQUIS-METOPROLOL AND CARDIZEM Code(s): I48.91 - UNSPECIFIED ATRIAL FIBRILLATION; I48.92 - UNSPECIFIED ATRIAL FLUTTER (5) CHF exacerbation Assessment/Plan: ON PO LASIX CARDIO ON BOARD Code(s): I50.9 - HEART FAILURE, UNSPECIFIED (6) Pneumonia Assessment/Plan: OFF ABX Code(s): J18.9 - PNEUMONIA, UNSPECIFIED ORGANISM Qualifiers: Pneumonia type: due to unspecified organism (7) Right arm weakness Assessment/Plan: NEURO appreciated HEAD CT noted nad pt Code(s): R29.898 - OTH SYMPTOMS AND SIGNS INVOLVING THE MUSCULOSKELETAL SYSTEM (8) Urinary retention Assessment/Plan: ortiz out large volume with scan now voiding monitor Code(s): R33.9 - RETENTION OF URINE, UNSPECIFIED (9) Dysphagia Assessment/Plan: [facility] [place] NOTED PUREE DIET Code(s): R13.10 - DYSPHAGIA, UNSPECIFIED
--- NOTE | 2019-10-31 10:33 | PN ---
Progress Note (short form) - Note Progress Note: No acute cardiac events Vital Signs Temperature 97.4 F L 10/30/19 12:00 Pulse Rate 99 H 10/31/19 08:08 Respiratory Rate 11 10/31/19 04:30 Blood Pressure 115/86 10/31/19 04:00 O2 Sat by Pulse Oximetry (%) 95 10/31/19 08:08 Cardiovascular: Yes: Pulse Irregular Respiratory: Yes: Rhonchi Gastrointestinal: Yes: Normal Bowel Sounds, Soft, Abdomen, Obese Edema: No Integumentary: Yes: Venous Stasis Changes Labs: CBC, BMP 10/26/19 05:56 10/26/19 05:56 Active Medications Apixaban (Eliquis -) 5 mg NGT BID [facility] Last Admin: 10/31/19 09:57 Dose: 5 mg Documented by: Atorvastatin Calcium (Lipitor -) [address] [facility] Last Admin: 10/30/19 22:02 Dose: 40 mg Documented by: Chlorhexidine Gluconate (Hibiclens For Decolonization -) [address] [facility] Last Admin: 10/30/19 22:02 Dose: 1 applic Documented by: Chlorhexidine Gluconate (Peridex -) 15 ml MM BID [facility] Last Admin: 10/31/19 09:58 Dose: 15 ml Documented by: Diltiazem HCl (Cardizem -) 90 mg NGT Q6HPO [facility] Last Admin: 10/31/19 06:07 Dose: 90 mg Documented by: Finasteride (Proscar -) 5 mg NR DAILY [facility] Last Admin: 10/31/19 09:57 Dose: 5 mg Documented by: Furosemide (Lasix -) 40 mg PO BID@0600,1400 [facility] Last Admin: 10/31/19 06:07 Dose: 40 mg Documented by: Insulin Aspart (Novolog Vial Sliding Scale -) 1 vial SQ TIDAC [facility]; Protocol Last Admin: 10/31/19 07:02 Dose: 2 units Documented by: Metoprolol Tartrate (Lopressor -) 50 mg PO TID [facility] Last Admin: 10/31/19 06:07 Dose: 50 mg Documented by: Metoprolol Tartrate (Lopressor Injection -) 5 mg IVPUSH Q4H PRN PRN Reason: HYPERTENSION Last Admin: 10/21/19 10:12 Dose: 5 mg Documented by: Miscellaneous (Duragesic Patch Waste) 1 each TD PRN PRN PRN Reason: PAIN Last Admin: 10/25/19 09:55 Dose: 1 each Documented by: Pantoprazole Sodium (Protonix Iv) 40 mg IVPUSH DAILY [facility] Last Admin: 10/31/19 10:11 Dose: 40 mg Documented by: Polyethylene Glycol (Miralax (For Daily Use) -) 17 gm NGT HS@2100 [facility] Last Admin: 10/30/19 22:03 Dose: 17 gm Documented by: Scopolamine HBr (Transderm-Scop -) 1 patch TD Q72H [facility] Last Admin: 10/29/19 22:16 Dose: 1 patch Documented by: Problem List - Problems (1) Acute respiratory failure with hypoxia and hypercapnia Code(s): J96.01 - ACUTE RESPIRATORY FAILURE WITH HYPOXIA; J96.02 - ACUTE RESPIRATORY FAILURE WITH HYPERCAPNIA (2) Acute decompensated heart failure Code(s): I50.9 - HEART FAILURE, UNSPECIFIED (3) Acute hypercapnic respiratory failure due to obstructive sleep apnea Code(s): J96.02 - ACUTE RESPIRATORY FAILURE WITH HYPERCAPNIA; G47.33 - OBSTRUCTIVE SLEEP APNEA (ADULT) (PEDIATRIC) (4) Atrial fibrillation and flutter Code(s): I48.91 - UNSPECIFIED ATRIAL FIBRILLATION; I48.92 - UNSPECIFIED ATRIAL FLUTTER (5) Sarcoidosis of other sites Code(s): D86.89 - SARCOIDOSIS OF OTHER SITES (6) Sleep apnea Code(s): G47.30 - SLEEP APNEA, UNSPECIFIED Qualifiers: Sleep apnea type: obstructive Qualified Code(s): G47.33 - Obstructive sleep apnea (adult) (pediatric) (7) Type 2 diabetes mellitus Code(s): E11.9 - TYPE 2 DIABETES MELLITUS WITHOUT COMPLICATIONS Qualifiers: Diabetes mellitus correction insulin use: without termination clerk use Diabetes mellitus complication detail: with chronic kidney disease Chronic kidney disease stage: stage 2 (mild) Assessment/Plan 05/01/2019 Normal LV and RV size and fxn, tr TR 03/14/2019 Normal LV size and fxn, no thrombus ADEEL, mild-mod dilated and HK RV, tr MR, mild-mod TR, tr DE, trace pericardial effusion 1. Acute on chronic hypoxic/hypercapnic respiratory failure post tracheostomy on mechanical ventilation 2. History of pneumonia complicated by septic shock- ARDS, last admission/hospitalization 3. Persistent atrial flutter/paroxysmal atrial fibrillation [id number] score of 0 on A/C therapy with intermittent periods of rapid ventricular response 4. Diastolic/systolic LV dysfunction with chronic class 0-I NYHA classification LV failure 5. Sarcoidosis confirmed by skin biopsy, R/O cardiac involvement- for future evaluation/cardiac MRI 6. History of coronavirus/COVID 19 infection 7. DM 8. History of OSAS 9. History of acute on chronic kidney disease, pre-renal azotemia 10. Right upper extremity weakness suspect brachial plexus injury 11. Anemia PLAN: Same: 1. Vent 2. Lasix 40 po bid with monitoring diuretic response, renal function and electrolytes 3. Rate-control with oral Cardizem 90 mg mg QID, Lopressor 50 mg TID, IV Lopressor/Cardizem as needed. Cont Eliquis 5 bid, Lipitor 40 qd 4. Hold lisinopril 10 mg QD pending hemodynamic and renal stability . Follow up with Dr. Genaro Davila (cardiology at [place]) as outpatient. Consider cardiac PET or MRI to exclude cardiac involvement in sarcoidosis as outpatient
--- NOTE | 2019-10-31 12:20 | PN ---
Progress Note, [employer] - Note Progress Note: Selected Entries 10/31/19 10/31/19 10/31/19 00:00 00:30 04:00 Pulse Rate 71 112 H Respiratory 10 16 11 Rate Blood Pressure 102/63 115/86 O2 Sat by Pulse 100 96 95 Oximetry (%) Oxygen Delivery Method Fraction of 40 Inspired Oxygen (FIO2) Bowel Movement 10/31/19 10/31/19 10/31/19 04:30 06:00 07:03 Pulse Rate Respiratory 11 Rate Blood Pressure O2 Sat by Pulse 95 Oximetry (%) Oxygen Delivery Trach Collar Method Fraction of 40 40 Inspired Oxygen (FIO2) Bowel Movement No 10/31/19 10/31/19 08:08 11:41 Pulse Rate 99 H 117 H Respiratory Rate Blood Pressure O2 Sat by Pulse 95 100 Oximetry (%) Oxygen Delivery Trach Collar Trach Collar Method Fraction of 40 40 Inspired Oxygen (FIO2) Bowel Movement Trach collar/PMV MBS completed with functional swallow.Stasis in vallecula, no aspiration REC: Thinned out puree/nectar thick liquid PMV in place for all PO intake Reviewed compensatory swallowing strategies with pt.' Remind pt to swallow "hard,with effort, twice" for each 1/2 tsp,Eat slowly, carefully. Alternate puree/.with liquid Complete meal with liquid. Monitor tolerance
--- NOTE | 2019-10-31 16:44 | PN ---
Progress Note (short form) - Note Progress Note: Patient seen and examined in the [facility]-ICU. Comfortable: tolerating Trach collar / PMV. No CP or SOB. OBJECTIVE: Intake & Output 10/28/19 10/29/19 10/30/19 10/31/19 23:59 23:59 23:59 23:59 Intake Total 1495 1495 380 120 Output Total 1200 1400 1000 Balance 295 95 -620 120 Weight 234 lb 8 oz 238 lb 6.4 oz 241 lb 1.384 oz Last Vital Signs Temp Pulse Resp BP Pulse Ox 98.3 F 41 L 19 122/85 96 10/31/19 12:00 10/31/19 15:37 10/31/19 12:00 10/31/19 12:00 10/31/19 15:37 Active Medications Amino Acids (Prosource No Carb Liquid Pkt) 30 ml PO BID@0800,1730 [facility] Apixaban (Eliquis -) 5 mg NGT BID [facility] Last Admin: 10/31/19 09:57 Dose: 5 mg Documented by: Atorvastatin Calcium (Lipitor -) 40 mg NGT HS [facility] Last Admin: 10/30/19 22:02 Dose: 40 mg Documented by: Chlorhexidine Gluconate (Hibiclens For Decolonization -) 1 applic TP HS [facility] Last Admin: 10/30/19 22:02 Dose: 1 applic Documented by: Chlorhexidine Gluconate (Peridex -) 15 ml MM BID [facility] Last Admin: 10/31/19 09:58 Dose: 15 ml Documented by: Diltiazem HCl (Cardizem -) 90 mg NGT Q6HPO [facility] Last Admin: 10/31/19 12:42 Dose: 90 mg Documented by: Finasteride (Proscar -) 5 mg NR DAILY [facility] Last Admin: 10/31/19 09:57 Dose: 5 mg Documented by: Furosemide (Lasix -) 40 mg PO BID@0600,1400 [facility] Last Admin: 10/31/19 13:45 Dose: 40 mg Documented by: Insulin Aspart (Novolog Vial Sliding Scale -) 1 vial SQ TIDAC [facility]; Protocol Last Admin: 10/31/19 12:45 Dose: Not Given Documented by: Metoprolol Tartrate (Lopressor -) 50 mg PO TID [facility] Last Admin: 10/31/19 13:42 Dose: 50 mg Documented by: Metoprolol Tartrate (Lopressor Injection -) 5 mg IVPUSH Q4H PRN PRN Reason: HYPERTENSION Last Admin: 10/21/19 10:12 Dose: 5 mg Documented by: Miscellaneous (Duragesic Patch Waste) 1 each TD PRN PRN PRN Reason: PAIN Last Admin: 10/25/19 09:55 Dose: 1 each Documented by: Pantoprazole Sodium (Protonix Iv) 40 mg IVPUSH DAILY [facility] Last Admin: 10/31/19 10:11 Dose: 40 mg Documented by: Polyethylene Glycol (Miralax (For Daily Use) -) 17 gm NGT HS@2100 [facility] Last Admin: 10/30/19 22:03 Dose: 17 gm Documented by: Scopolamine HBr (Transderm-Scop -) 1 patch TD Q72H [facility] Last Admin: 10/29/19 22:16 Dose: 1 patch Documented by: Gen: NAD on Trach collar Heart: RRR Lung: few scattered rhonchi Abd: soft, nontender Ext: (+) edema Home Medication List Medication Instructions Recorded Confirmed Type Finasteride 5 mg PO DAILY 06/30/19 09/09/19 History Active Medications Generic Name Dose Route Start Last Admin Trade Name Freq PRN Reason Stop Dose Admin Amino Acids 30 ml 10/31/19 17:30 Prosource No Carb Liquid Pkt PO BID@0800,1730 [facility] Apixaban 5 mg 10/20/19 22:00 10/31/19 09:57 Eliquis - NGT 5 mg BID [facility] Administration Atorvastatin Calcium 40 mg 10/29/19 14:56 10/30/19 22:02 Lipitor - NGT 40 mg HS [facility] Administration Chlorhexidine Gluconate 1 applic 10/20/19 22:00 10/30/19 22:02 Hibiclens For Decolonization - TP 1 applic HS [facility] Administration Chlorhexidine Gluconate 15 ml 10/20/19 22:00 10/31/19 09:58 Peridex - MM 15 ml BID [facility] Administration Diltiazem HCl 90 mg 10/29/19 14:56 10/31/19 12:42 Cardizem - NGT 90 mg Q6HPO [facility] Administration Finasteride 5 mg 10/29/19 14:56 10/31/19 09:57 Proscar - NR 5 mg DAILY [facility] Administration Furosemide 40 mg 10/29/19 14:00 10/31/19 13:45 Lasix - PO 40 mg BID@0600,1400 [facility] Administration Insulin Aspart 1 vial 10/21/19 07:00 10/31/19 12:45 Novolog Vial Sliding Scale - SQ Not Given TIDAC [facility] Protocol Metoprolol Tartrate 50 mg 10/20/19 22:00 10/31/19 13:42 Lopressor - PO 50 mg TID [facility] Administration Metoprolol Tartrate 5 mg 10/20/19 20:35 10/21/19 10:12 Lopressor Injection - IVPUSH 5 mg Q4H PRN Administration HYPERTENSION Miscellaneous 1 each 10/20/19 20:35 10/25/19 09:55 Duragesic Patch Waste TD 1 each PRN PRN Administration PAIN Pantoprazole Sodium 40 mg 10/21/19 10:00 10/31/19 10:11 Protonix Iv IVPUSH 40 mg DAILY [facility] Administration Polyethylene Glycol 17 gm 10/20/19 21:00 10/30/19 22:03 Miralax (For Daily Use) - NGT 17 gm HS@2100 [facility] Administration Scopolamine HBr 1 patch 10/20/19 22:00 10/29/19 22:16 Transderm-Scop - TD 1 patch Q72H [facility] Administration Laboratory Results - last 24 hr 10/30/19 10/31/19 10/31/19 18:19 06:22 12:04 POC Glucometer 107 154 142 ASSESSMENT AND PLAN: Acute Hypoxic and Hypercapneic Respiratory Failure S/P Trach UTI Pneumonia ARDS Septic Shock Acute on Chronic Diastolic Heart Failure Volume Overload Atrial Fibrillation/Flutter with RVR h/o COVID19 Sarcoidosis Morbid Obesity EMMY/OHS Anemia - Trach collar / PMV as tolerated - PO as tolerated - Eliquis - rate control - monitor urine output, creatinine - enteral feeds - GI prophylaxis Dr Maya
[2019-10-31] MEDS: AMINO ACIDS/PROTEIN HYDROLYS 30 ML LIQUID.PKT PO SCH (18:15)
[2019-10-31] MEDS: ATORVASTATIN CA 40 MG TABLET (FP) NGT SCH (21:00)
[2019-10-31] MEDS: POLYETHYLENE GLYCOL 3350 119 GM BTL NGT SCH (21:00)
[2019-10-31] MEDS: CHLORHEXIDINE GLUCONATE 4% CLEANSER FOR DECOLONIZATION TP SCH (21:01)
[2019-11-01] MEDS: dilTIAZem HCL 60 MG TABLET NGT SCH ×4 (00:02→17:09)
[2019-11-01] MEDS: FUROSEMIDE 40 MG TABLET (FP) PO SCH ×2 (06:05→14:12)
[2019-11-01] MEDS: INSULIN SLIDING SCALE (NOVOLOG) 1 VIAL SQ SCH ×3 (06:06→16:17)
[2019-11-01] MEDS: METOPROLOL TARTRATE 50 MG TABLET (FP) PO SCH ×3 (06:06→22:20)
[2019-11-01] MEDS: AMINO ACIDS/PROTEIN HYDROLYS 30 ML LIQUID.PKT PO SCH ×2 (08:38→17:08)
--- NOTE | 2019-11-01 08:48 | PN ---
Progress Note (short form) - Note Progress Note: Pulm/CCM Progress Note Pt seen and examined in ICU. Protonix to po.
[2019-11-01] MEDS: APIXABAN 5 MG TABLET NGT SCH ×2 (09:32→22:20)
[2019-11-01] MEDS: CHLORHEXIDINE GLUCONATE 0.12% 15ML CUP MM SCH ×2 (09:33→22:20)
[2019-11-01] MEDS: FINASTERIDE 5 MG TABLET (FP) NR SCH (09:33)
[2019-11-01] MEDS: PANTOPRAZOLE 40 MG TABLET PO SCH (09:48)
--- NOTE | 2019-11-01 12:03 | PN ---
Progress Note, Physician History of Present Illness: Remains on trach collar, awake and alert no distress, persistent atrial flutter with variable ventricular response - Current Medication List Current Medications: Active Medications Amino Acids (Prosource No Carb Liquid Pkt) 30 ml PO BID@0800,1730 [facility] Last Admin: 11/01/19 08:38 Dose: 30 ml Documented by: Apixaban (Eliquis -) 5 mg NGT BID [facility] Last Admin: 11/01/19 09:32 Dose: 5 mg Documented by: Atorvastatin Calcium (Lipitor -) 40 mg NGT HS [facility] Last Admin: 10/31/19 21:00 Dose: 40 mg Documented by: Chlorhexidine Gluconate (Hibiclens For Decolonization -) 1 applic TP [facility] Last Admin: 10/31/19 21:01 Dose: 1 applic Documented by: Chlorhexidine Gluconate (Peridex -) 15 ml MM BID [facility] Last Admin: 11/01/19 09:33 Dose: 15 ml Documented by: Diltiazem HCl (Cardizem -) 90 mg NGT Q6HPO [facility] Last Admin: 11/01/19 11:25 Dose: 90 mg Documented by: Finasteride (Proscar -) 5 mg NR DAILY [facility] Last Admin: 11/01/19 09:33 Dose: 5 mg Documented by: Furosemide (Lasix -) 40 mg PO BID@0600,1400 [facility] Last Admin: 11/01/19 06:05 Dose: 40 mg Documented by: Insulin Aspart (Novolog Vial Sliding Scale -) 1 vial SQ TIDAC [facility]; Protocol Last Admin: 11/01/19 11:43 Dose: 2 units Documented by: Metoprolol Tartrate (Lopressor -) 50 mg PO TID [facility] Last Admin: 11/01/19 06:06 Dose: 50 mg Documented by: Metoprolol Tartrate (Lopressor Injection -) 5 mg IVPUSH Q4H PRN PRN Reason: HYPERTENSION Last Admin: 10/21/19 10:12 Dose: 5 mg Documented by: Miscellaneous (Duragesic Patch Waste) 1 each TD PRN PRN PRN Reason: PAIN Last Admin: 10/25/19 09:55 Dose: 1 each Documented by: Pantoprazole Sodium (Protonix -) 40 mg PO DAILY [facility] Last Admin: 11/01/19 09:48 Dose: 40 mg Documented by: Polyethylene Glycol (Miralax (For Daily Use) -) 17 gm NGT HS@2100 [facility] Last Admin: 10/31/19 21:00 Dose: 17 gm Documented by: Scopolamine HBr (Transderm-Scop -) 1 patch TD Q72H [facility] Last Admin: 10/29/19 22:16 Dose: 1 patch Documented by: - Objective Vital Signs: Vital Signs Temperature 97.9 F 11/01/19 09:38 Pulse Rate 78 11/01/19 11:29 Respiratory Rate 12 11/01/19 11:29 Blood Pressure 110/73 11/01/19 11:29 O2 Sat by Pulse Oximetry (%) 100 11/01/19 09:00 Constitutional: Yes: No Distress, Calm Neck: Yes: Other (TC) Cardiovascular: Yes: Pulse Irregular Respiratory: Yes: Diminished, Rhonchi Gastrointestinal: Yes: Normal Bowel Sounds, Soft Edema: No Labs: CBC, BMP 10/26/19 05:56 10/26/19 05:56 INR, PTT INR 1.18 (0.83-1.09) H 10/14/19 05:30 - ....Imaging EKG: Report Reviewed (Tele: [facility]) Problem List - Problems (1) Acute respiratory failure with hypoxia and hypercapnia Code(s): J96.01 - ACUTE RESPIRATORY FAILURE WITH HYPOXIA; J96.02 - ACUTE RESPIRATORY FAILURE WITH HYPERCAPNIA (2) Acute decompensated heart failure Code(s): I50.9 - HEART FAILURE, UNSPECIFIED (3) Acute hypercapnic respiratory failure due to obstructive sleep apnea Code(s): J96.02 - ACUTE RESPIRATORY FAILURE WITH HYPERCAPNIA; G47.33 - OBSTRUCTIVE SLEEP APNEA (ADULT) (PEDIATRIC) (4) Atrial fibrillation and flutter Code(s): I48.91 - UNSPECIFIED ATRIAL FIBRILLATION; I48.92 - UNSPECIFIED ATRIAL FLUTTER (5) Sarcoidosis of other sites Code(s): D86.89 - SARCOIDOSIS OF OTHER SITES (6) Sleep apnea Code(s): G47.30 - SLEEP APNEA, UNSPECIFIED Qualifiers: Sleep apnea type: obstructive Qualified Code(s): G47.33 - Obstructive sleep apnea (adult) (pediatric) (7) Type 2 diabetes mellitus Code(s): E11.9 - TYPE 2 DIABETES MELLITUS WITHOUT COMPLICATIONS Qualifiers: Diabetes mellitus ferry terminal agent insulin use: without custodial use Diabetes mellitus complication detail: with chronic kidney disease Chronic kidney disease stage: stage 2 (mild) Assessment/Plan 05/01/2019 Normal LV and RV size and fxn, tr TR 03/14/2019 Normal LV size and fxn, no thrombus ADEEL, mild-mod dilated and HK RV, tr MR, mild-mod TR, tr CA, trace pericardial effusion 1. Acute on chronic hypoxic/hypercapnic respiratory failure post tracheostomy on mechanical ventilation 2. History of pneumonia complicated by septic shock- ARDS, last admission/hospitalization 3. Persistent atrial flutter/paroxysmal atrial fibrillation [id number] score of 0 on A/C therapy with intermittent periods of rapid ventricular response 4. Diastolic/systolic LV dysfunction with chronic class 0-I NYHA classification LV failure 5. Sarcoidosis confirmed by skin biopsy, R/O cardiac involvement- for future evaluation/cardiac MRI 6. History of coronavirus/COVID 19 infection 7. DM 8. History of OSAS 9. History of acute on chronic kidney disease, pre-renal azotemia 10. Right upper extremity weakness suspect brachial plexus injury 11. Anemia PLAN: 1. Placed on TC with PMV as tolerated 2. Lasix 40 po bid with monitoring diuretic response, renal function and electrolytes 3. Rate-control with oral Cardizem 90 mg mg QID, Lopressor 50 mg TID, IV Lopressor/Cardizem as needed. Cont Eliquis 5 bid, Lipitor 40 qd 4. Hold lisinopril 10 mg QD pending hemodynamic and renal stability 5. Dysphagia diet with PMV, DVT/GI prophylaxis 6. EMG, right brachial plexus MRI when able 7. Follow up with Dr. Genaro Davila (cardiology at [place]) as outpatient. Consider cardiac PET or MRI to exclude cardiac involvement in sarcoidosis as outpatient
--- NOTE | 2019-11-01 13:08 | PN ---
Progress Note, Physician Chief Complaint: Acute respiratory failure CHF Sepsis RYNE Urinary retention Right arm weakness History of Present Illness: 53 yo M with a hx of diastolic CHF, tracheostomy secondary to respiratory failure with reversal, afib/aflutter on eliquis, sarcoidosis, Guillain [place], morbid obesity, pulmonary edema, intubated (08/2019), cardiac arrest (08/2019) who presents with shortness of breath. Remains on trach collar, awake and alert no distress - Current Medication List Current Medications: Active Medications Amino Acids (Prosource No Carb Liquid Pkt) 30 ml PO BID@0800,1730 [facility] Last Admin: 11/01/19 08:38 Dose: 30 ml Documented by: Apixaban (Eliquis -) 5 mg NGT BID [facility] Last Admin: 11/01/19 09:32 Dose: 5 mg Documented by: Atorvastatin Calcium (Lipitor -) [address] [facility] Last Admin: 10/31/19 21:00 Dose: 40 mg Documented by: Chlorhexidine Gluconate (Hibiclens For Decolonization -) [address] [facility] Last Admin: 10/31/19 21:01 Dose: 1 applic Documented by: Chlorhexidine Gluconate (Peridex -) 15 ml MM BID [facility] Last Admin: 11/01/19 09:33 Dose: 15 ml Documented by: Diltiazem HCl (Cardizem -) 90 mg NGT Q6HPO [facility] Last Admin: 11/01/19 11:25 Dose: 90 mg Documented by: Finasteride (Proscar -) 5 mg NR DAILY [facility] Last Admin: 11/01/19 09:33 Dose: 5 mg Documented by: Furosemide (Lasix -) 40 mg PO BID@0600,1400 [facility] Last Admin: 11/01/19 06:05 Dose: 40 mg Documented by: Insulin Aspart (Novolog Vial Sliding Scale -) 1 vial SQ TIDAC [facility]; Protocol Last Admin: 11/01/19 11:43 Dose: 2 units Documented by: Metoprolol Tartrate (Lopressor -) 50 mg PO TID [facility] Last Admin: 11/01/19 06:06 Dose: 50 mg Documented by: Metoprolol Tartrate (Lopressor Injection -) 5 mg IVPUSH Q4H PRN PRN Reason: HYPERTENSION Last Admin: 10/21/19 10:12 Dose: 5 mg Documented by: Miscellaneous (Duragesic Patch Waste) 1 each TD PRN PRN PRN Reason: PAIN Last Admin: 10/25/19 09:55 Dose: 1 each Documented by: Pantoprazole Sodium (Protonix -) 40 mg PO DAILY [facility] Last Admin: 11/01/19 09:48 Dose: 40 mg Documented by: Polyethylene Glycol (Miralax (For Daily Use) -) 17 gm NGT HS@2100 [facility] Last Admin: 10/31/19 21:00 Dose: 17 gm Documented by: Scopolamine HBr (Transderm-Scop -) 1 patch TD Q72H [facility] Last Admin: 10/29/19 22:16 Dose: 1 patch Documented by: - Objective Vital Signs: Vital Signs Temperature 97.9 F 11/01/19 09:38 Pulse Rate 78 11/01/19 11:29 Respiratory Rate 12 11/01/19 11:29 Blood Pressure 110/73 11/01/19 11:29 O2 Sat by Pulse Oximetry (%) 100 11/01/19 09:00 Constitutional: Yes: Well Nourished, No Distress, Calm, Obese Cardiovascular: Yes: Pulse Irregular Respiratory: Yes: Regular, Rhonchi (diffuse), Other (trach collar) Gastrointestinal: Yes: Normal Bowel Sounds, Soft, Abdomen, Obese Genitourinary: Yes: WNL Musculoskeletal: Yes: Muscle Weakness Extremities: Yes: WNL Edema: No Peripheral Pulses WNL: Yes Neurological: Yes: Alert, Oriented Psychiatric: Yes: Alert, Oriented Labs: CBC, BMP 10/26/19 05:56 10/26/19 05:56 INR, PTT INR 1.18 (0.83-1.09) H 10/14/19 05:30 Problem List - Problems (1) Acute respiratory failure with hypoxia and hypercapnia Assessment/Plan: -Pulmonary on board -Trach collar -Bronchodilators -COVID 19 PCR negative Problems reviewed: Yes Code(s): J96.01 - ACUTE RESPIRATORY FAILURE WITH HYPOXIA; J96.02 - ACUTE RESPIRATORY FAILURE WITH HYPERCAPNIA (2) CHF (congestive heart failure) Assessment/Plan: -Seen by Cardiology -Furosemide 40 mg po bid -Continue Lopressor Problems reviewed: Yes Code(s): I50.9 - HEART FAILURE, UNSPECIFIED Qualifiers: Heart failure type: unspecified Heart failure chronicity: acute on chronic Qualified Code(s): I50.9 - Heart failure, unspecified (3) Right arm weakness Assessment/Plan: -Seen by Neurology -CT head 10/24-negative -Physical therapy Problems reviewed: Yes Code(s): R29.898 - OTH SYMPTOMS AND SIGNS INVOLVING THE MUSCULOSKELETAL SYSTEM (4) Sepsis Assessment/Plan: -resolved -IV abx -Seen by ID -Afebrile Problems reviewed: Yes Code(s): A41.9 - SEPSIS, UNSPECIFIED ORGANISM (5) Urinary retention Assessment/Plan: -Continue Proscar -Urinating well Problems reviewed: Yes Code(s): R33.9 - RETENTION OF URINE, UNSPECIFIED (6) Morbid obesity Problems reviewed: Yes Code(s): E66.01 - MORBID (SEVERE) OBESITY DUE TO EXCESS CALORIES (7) Type 2 diabetes mellitus Assessment/Plan: -Last A1c at 8.2 in 09/26 -Diabetic low sodium diet -ISS - Problems reviewed: Yes Code(s): E11.9 - TYPE 2 DIABETES MELLITUS WITHOUT COMPLICATIONS Qualifiers: Diabetes mellitus assisted insulin use: without assisted use Diabetes mellitus complication detail: with chronic kidney disease Chronic kidney disease stage: stage 2 (mild) (8) Atrial fibrillation and flutter Assessment/Plan: -Tele monitor -Cardiology on board -Rate controlled -Continue BB + Cardizem -Continue Eliquis Problems reviewed: Yes Code(s): I48.91 - UNSPECIFIED ATRIAL FIBRILLATION; I48.92 - UNSPECIFIED ATRIAL FLUTTER Assessment/Plan See problem list Physical therapy Awaiting acceptance to SNF
[2019-11-01] MEDS: POLYETHYLENE GLYCOL 3350 119 GM BTL NGT SCH ×2 (21:55→22:20)
[2019-11-01] MEDS: ATORVASTATIN CA 40 MG TABLET (FP) NGT SCH (22:20)
[2019-11-01] MEDS: SCOPOLAMINE HYDROBROMIDE 1 PATCH PATCH.TD72 TD SCH (22:20)
[2019-11-01] MEDS: CHLORHEXIDINE GLUCONATE 4% CLEANSER FOR DECOLONIZATION TP SCH (22:24)
[2019-11-02] MEDS: dilTIAZem HCL 60 MG TABLET NGT SCH ×4 (00:12→17:02)
[2019-11-02] MEDS: INSULIN SLIDING SCALE (NOVOLOG) 1 VIAL SQ SCH ×3 (06:18→17:02)
[2019-11-02] MEDS: METOPROLOL TARTRATE 50 MG TABLET (FP) PO SCH ×3 (06:35→21:19)
[2019-11-02] MEDS: FUROSEMIDE 40 MG TABLET (FP) PO SCH ×2 (06:35→13:04)
[2019-11-02] MEDS: AMINO ACIDS/PROTEIN HYDROLYS 30 ML LIQUID.PKT PO SCH ×2 (08:59→17:02)
[2019-11-02] MEDS: FINASTERIDE 5 MG TABLET (FP) NR SCH (09:00)
[2019-11-02] MEDS: CHLORHEXIDINE GLUCONATE 0.12% 15ML CUP MM SCH ×2 (09:00→21:19)
[2019-11-02] MEDS: APIXABAN 5 MG TABLET NGT SCH ×2 (09:00→21:19)
[2019-11-02] MEDS: PANTOPRAZOLE 40 MG TABLET PO SCH (09:00)
--- NOTE | 2019-11-02 11:30 | PN ---
Progress Note, Physician History of Present Illness: Remains on trach collar, awake and alert no distress, persistent atrial flutter with variable ventricular response - Current Medication List Current Medications: Active Medications Amino Acids (Prosource No Carb Liquid Pkt) 30 ml PO BID@0800,1730 [facility] Last Admin: 11/02/19 08:59 Dose: 30 ml Documented by: Apixaban (Eliquis -) 5 mg NGT BID [facility] Last Admin: 11/02/19 09:00 Dose: 5 mg Documented by: Atorvastatin Calcium (Lipitor -) 40 mg NGT HS [facility] Last Admin: 11/01/19 22:20 Dose: 40 mg Documented by: Chlorhexidine Gluconate (Hibiclens For Decolonization -) 1 applic TP [facility] Last Admin: 11/01/19 22:24 Dose: 1 applic Documented by: Chlorhexidine Gluconate (Peridex -) 15 ml MM BID [facility] Last Admin: 11/02/19 09:00 Dose: 15 ml Documented by: Diltiazem HCl (Cardizem -) 90 mg NGT Q6HPO [facility] Last Admin: 11/02/19 06:35 Dose: 90 mg Documented by: Finasteride (Proscar -) 5 mg NR DAILY [facility] Last Admin: 11/02/19 09:00 Dose: 5 mg Documented by: Furosemide (Lasix -) 40 mg PO BID@0600,1400 [facility] Last Admin: 11/02/19 06:35 Dose: 40 mg Documented by: Insulin Aspart (Novolog Vial Sliding Scale -) 1 vial SQ TIDAC [facility]; Protocol Last Admin: 11/02/19 06:18 Dose: Not Given Documented by: Metoprolol Tartrate (Lopressor -) 50 mg PO TID [facility] Last Admin: 11/02/19 06:35 Dose: 50 mg Documented by: Metoprolol Tartrate (Lopressor Injection -) 5 mg IVPUSH Q4H PRN PRN Reason: HYPERTENSION Last Admin: 10/21/19 10:12 Dose: 5 mg Documented by: Miscellaneous (Duragesic Patch Waste) 1 each TD PRN PRN PRN Reason: PAIN Last Admin: 10/25/19 09:55 Dose: 1 each Documented by: Pantoprazole Sodium (Protonix -) 40 mg PO DAILY [facility] Last Admin: 11/02/19 09:00 Dose: 40 mg Documented by: Polyethylene Glycol (Miralax (For Daily Use) -) 17 gm NGT HS@2100 [facility] Last Admin: 11/01/19 21:55 Dose: Not Given Documented by: Scopolamine HBr (Transderm-Scop -) 1 patch TD Q72H [facility] Last Admin: 11/01/19 22:20 Dose: 1 patch Documented by: - Objective Vital Signs: Vital Signs Temperature 98.5 F 11/02/19 09:38 Pulse Rate 93 H 11/02/19 09:38 Respiratory Rate 11/02/19 09:38 Blood Pressure 95/70 11/02/19 09:38 O2 Sat by Pulse Oximetry (%) 99 11/02/19 09:57 Constitutional: Yes: No Distress, Calm Neck: Yes: Other (TC) Cardiovascular: Yes: Pulse Irregular Respiratory: Yes: Diminished, Rhonchi Gastrointestinal: Yes: Normal Bowel Sounds, Soft, Abdomen, Obese Edema: No Labs: CBC, BMP 10/26/19 05:56 10/26/19 05:56 INR, PTT INR 1.18 (0.83-1.09) H 10/14/19 05:30 - ....Imaging EKG: Report Reviewed (Tele: [facility]) Problem List - Problems (1) Acute respiratory failure with hypoxia and hypercapnia Code(s): J96.01 - ACUTE RESPIRATORY FAILURE WITH HYPOXIA; J96.02 - ACUTE RESPIRATORY FAILURE WITH HYPERCAPNIA (2) Acute decompensated heart failure Code(s): I50.9 - HEART FAILURE, UNSPECIFIED (3) Acute hypercapnic respiratory failure due to obstructive sleep apnea Code(s): J96.02 - ACUTE RESPIRATORY FAILURE WITH HYPERCAPNIA; G47.33 - OBSTRUCTIVE SLEEP APNEA (ADULT) (PEDIATRIC) (4) Atrial fibrillation and flutter Code(s): I48.91 - UNSPECIFIED ATRIAL FIBRILLATION; I48.92 - UNSPECIFIED ATRIAL FLUTTER (5) Sarcoidosis of other sites Code(s): D86.89 - SARCOIDOSIS OF OTHER SITES (6) Sleep apnea Code(s): G47.30 - SLEEP APNEA, UNSPECIFIED Qualifiers: Sleep apnea type: obstructive Qualified Code(s): G47.33 - Obstructive sleep apnea (adult) (pediatric) (7) Type 2 diabetes mellitus Code(s): E11.9 - TYPE 2 DIABETES MELLITUS WITHOUT COMPLICATIONS Qualifiers: Diabetes mellitus half-way insulin use: without half-way use Diabetes mellitus complication detail: with chronic kidney disease Chronic kidney disease stage: stage 2 (mild) Assessment/Plan 05/01/2019 Normal LV and RV size and fxn, tr TR 03/14/2019 Normal LV size and fxn, no thrombus ADEEL, mild-mod dilated and HK RV, tr MR, mild-mod TR, tr AK, trace pericardial effusion 1. Acute on chronic hypoxic/hypercapnic respiratory failure post tracheostomy on mechanical ventilation 2. History of pneumonia complicated by septic shock- ARDS, last admission/hospitalization 3. Persistent atrial flutter/paroxysmal atrial fibrillation [id number] score of 0 on A/C therapy with intermittent periods of rapid ventricular response 4. Diastolic/systolic LV dysfunction with chronic class 0-I NYHA classification LV failure 5. Sarcoidosis confirmed by skin biopsy, R/O cardiac involvement- for future evaluation/cardiac MRI 6. History of coronavirus/COVID 19 infection 7. DM 8. History of OSAS 9. History of acute on chronic kidney disease, pre-renal azotemia 10. Right upper extremity weakness suspect brachial plexus injury 11. Anemia PLAN: 1. Placed on TC with PMV as tolerated 2. Lasix 40 po bid with monitoring diuretic response, renal function and electrolytes 3. Rate-control with oral Cardizem 90 mg mg QID, Lopressor 50 mg TID, IV Lopressor/Cardizem as needed. Cont Eliquis 5 bid, Lipitor 40 qd 4. Hold lisinopril 10 mg QD pending hemodynamic and renal stability 5. Dysphagia diet with PMV, DVT/GI prophylaxis 6. EMG, right brachial plexus MRI when able 7. Follow up with Dr. Genaro Davila (cardiology at [place]) as outpatient. Consider cardiac PET or MRI to exclude cardiac involvement in sarcoidosis as outpatient
--- NOTE | 2019-11-02 16:20 | PN ---
Progress Note, Physician Chief Complaint: Acute respiratory failure CHF Sepsis Afib Urinary retention Right arm weakness History of Present Illness: 53 yo M with a hx of diastolic CHF, tracheostomy secondary to respiratory failure with reversal, afib/aflutter on eliquis, sarcoidosis, Guillain [place], morbid obesity, pulmonary edema, intubated (08/2019), cardiac arrest (08/2019) who presents with shortness of breath. Remains on trach collar, awake and alert no distress - Current Medication List Current Medications: Active Medications Amino Acids (Prosource No Carb Liquid Pkt) 30 ml PO BID@0800,1730 [facility] Last Admin: 11/02/19 08:59 Dose: 30 ml Documented by: Apixaban (Eliquis -) 5 mg NGT BID [facility] Last Admin: 11/02/19 09:00 Dose: 5 mg Documented by: Atorvastatin Calcium (Lipitor -) 40 mg NGT [facility] Last Admin: 11/01/19 22:20 Dose: 40 mg Documented by: Chlorhexidine Gluconate (Hibiclens For Decolonization -) 1 applic TP [facility] Last Admin: 11/01/19 22:24 Dose: 1 applic Documented by: Chlorhexidine Gluconate (Peridex -) 15 ml MM BID [facility] Last Admin: 11/02/19 09:00 Dose: 15 ml Documented by: Diltiazem HCl (Cardizem -) 90 mg NGT Q6HPO [facility] Last Admin: 11/02/19 11:56 Dose: 90 mg Documented by: Finasteride (Proscar -) 5 mg NR DAILY [facility] Last Admin: 11/02/19 09:00 Dose: 5 mg Documented by: Furosemide (Lasix -) 40 mg PO BID@0600,1400 [facility] Last Admin: 11/02/19 13:04 Dose: 40 mg Documented by: Insulin Aspart (Novolog Vial Sliding Scale -) 1 vial SQ TIDAC [facility]; Protocol Last Admin: 11/02/19 11:30 Dose: Not Given Documented by: Metoprolol Tartrate (Lopressor -) 50 mg PO TID [facility] Last Admin: 11/02/19 13:04 Dose: 50 mg Documented by: Metoprolol Tartrate (Lopressor Injection -) 5 mg IVPUSH Q4H PRN PRN Reason: HYPERTENSION Last Admin: 10/21/19 10:12 Dose: 5 mg Documented by: Miscellaneous (Duragesic Patch Waste) 1 each TD PRN PRN PRN Reason: PAIN Last Admin: 10/25/19 09:55 Dose: 1 each Documented by: Pantoprazole Sodium (Protonix -) 40 mg PO DAILY [facility] Last Admin: 11/02/19 09:00 Dose: 40 mg Documented by: Polyethylene Glycol (Miralax (For Daily Use) -) 17 gm NGT HS@2100 [facility] Last Admin: 11/01/19 21:55 Dose: Not Given Documented by: Scopolamine HBr (Transderm-Scop -) 1 patch TD Q72H [facility] Last Admin: 11/01/19 22:20 Dose: 1 patch Documented by: - Objective Vital Signs: Vital Signs Temperature 98.8 F 11/02/19 14:00 Pulse Rate 101 H 11/02/19 16:01 Respiratory Rate 16 11/02/19 14:00 Blood Pressure 110/77 11/02/19 14:00 O2 Sat by Pulse Oximetry (%) 99 11/02/19 16:01 Constitutional: Yes: Well Nourished, No Distress, Calm, Obese Cardiovascular: Yes: Regular Rate and Rhythm Respiratory: Yes: Regular, Rhonchi (diffuse), Other (trach collar) Gastrointestinal: Yes: Normal Bowel Sounds, Soft, Abdomen, Obese Genitourinary: Yes: WNL Musculoskeletal: Yes: Muscle Weakness Extremities: Yes: WNL Edema: No Peripheral Pulses WNL: Yes Neurological: Yes: Alert, Oriented Psychiatric: Yes: Alert, Oriented Labs: CBC, BMP 10/26/19 05:56 10/26/19 05:56 INR, PTT INR 1.18 (0.83-1.09) H 10/14/19 05:30 Problem List - Problems (1) Acute respiratory failure with hypoxia and hypercapnia Assessment/Plan: -Pulmonary on board -Trach collar -Bronchodilators -COVID 19 PCR negative Problems reviewed: Yes Code(s): J96.01 - ACUTE RESPIRATORY FAILURE WITH HYPOXIA; J96.02 - ACUTE RESPIRATORY FAILURE WITH HYPERCAPNIA (2) CHF (congestive heart failure) Assessment/Plan: -Seen by Cardiology -Furosemide 40 mg po bid -Continue Lopressor Problems reviewed: Yes Code(s): I50.9 - HEART FAILURE, UNSPECIFIED Qualifiers: Heart failure type: unspecified Heart failure chronicity: acute on chronic Qualified Code(s): I50.9 - Heart failure, unspecified (3) Right arm weakness Assessment/Plan: -Seen by Neurology -CT head 10/24-negative -Physical therapy Problems reviewed: Yes Code(s): R29.898 - OTH SYMPTOMS AND SIGNS INVOLVING THE MUSCULOSKELETAL SYSTEM (4) Sepsis Assessment/Plan: -resolved -Finished IV abx -Seen by ID -Afebrile Problems reviewed: Yes Code(s): A41.9 - SEPSIS, UNSPECIFIED ORGANISM (5) Urinary retention Assessment/Plan: -Continue Proscar -Urinating well Problems reviewed: Yes Code(s): R33.9 - RETENTION OF URINE, UNSPECIFIED (6) Atrial fibrillation and flutter Assessment/Plan: -Tele monitor -Cardiology on board -Rate controlled -Continue BB + Cardizem -Continue Eliquis Problems reviewed: Yes Code(s): I48.91 - UNSPECIFIED ATRIAL FIBRILLATION; I48.92 - UNSPECIFIED ATRIAL FLUTTER (7) Morbid obesity Problems reviewed: Yes Code(s): E66.01 - MORBID (SEVERE) OBESITY DUE TO EXCESS CALORIES (8) Type 2 diabetes mellitus Assessment/Plan: -Last A1c at 8.2 in 09/26 -Diabetic low sodium diet -ISS - Problems reviewed: Yes Code(s): E11.9 - TYPE 2 DIABETES MELLITUS WITHOUT COMPLICATIONS Qualifiers: Diabetes mellitus senior living insulin use: without termite control representative use Diabetes mellitus complication detail: with chronic kidney disease Chronic kidney disease stage: stage 2 (mild) Assessment/Plan Awaiting acceptance at [facility] Repeat ASHLEYID 19 in preparation of d/c
[2019-11-02] MEDS ORDERED: INSULIN (NOVOLOG) ASPART 100 UNITS/ML 10ML VIAL ONE (16:58)
--- NOTE | 2019-11-02 21:13 | PN ---
Progress Note (short form) - Note Progress Note: 53 yo M with a hx of diastolic CHF, tracheostomy secondary to respiratory failure with reversal, afib/aflutter on eliquis, sarcoidosis, Guillain [place], morbid obesity, pulmonary edema, intubated (08/2019), cardiac arrest (08/2019) who presents with shortness of breath. Per EMS the patient was feeling short of breath for the past few days and was complaining of chest pain. The patient was satting 86 on RA with audible wheeze and was placed on CPAP. -Pt. noted to have right arm weakness mid-week last week after extubation. He has not c/o pain in arm/left chest, just inability to lift arm. Nods "no" to pain anywhere, describes weakness. FU NOTE : FU R arm weakness still weakness though better than prior , weakness in R BI, BR and TR and wrist extensors trace reflxes feels numbness of entire arm--hard to localize for him - Past Medical History Cardio/Vascular: Yes: AFIB, Other (A flutter ) Pulmonary: Yes: O2 Dependent, Previously Intubated, Other (trach reversed) Gastrointestinal: Yes: Other (s/p PEG) Renal/: Yes: Renal Inusuff Endocrine: Yes: Diabetes Mellitus - Alcohol/Substance Use Hx Alcohol Use: No - Smoking History Smoking history: Former smoker Have you smoked in the past 12 months: No If you are a former smoker, when did you quit?: 25 yrs ago Home Medications - Allergies Allergies/Adverse Reactions: Allergies Allergy/AdvReac Type Severity Reaction Status Date / Time No Known Allergies Allergy Verified 06/30/19 02:42 - Home Medications Home Medications: Ambulatory Orders Amino Acids/Protein Hydrolys [Prosource No Carb Liquid Pkt] 30 ml PO BID@0800,1730 packet 06/06/19 Ferrous Sulfate [Feosol] 300 mg NGT BID udc 06/06/19 Insulin (Levemir) [Levemir Vial] 14 units SQ AM units 06/06/19 Insulin Sliding Scale [Novolog Vial Sliding Scale -] 1 vial SQ ACHS units 06/06/19 Thiamine HCl [Vitamin B1 -] 200 mg PO DAILY tablet 06/06/19 Finasteride 5 mg PO DAILY 06/30/19 Albuterol 2.5/Ipratropium 0.5 [Duoneb -] 1 amp NEB RTID #120 amp 09/18/19 Apixaban [Eliquis -] 5 mg PEG BID #60 tablet 09/18/19 Atorvastatin Ca [Lipitor] 40 mg PO HS #30 tablet 09/18/19 Diltiazem Cd [Cardizem Cd -] 240 mg PO DAILY #30 cap.cd.24h 09/18/19 Insulin Sliding Scale [Novolog Vial Sliding Scale -] 1 vial SQ ACHS units 09/18/19 Lisinopril 10 mg PO DAILY #30 tablet 09/18/19 Metoprolol Tartrate [Lopressor -] 50 mg GT BID #60 tablet 09/18/19 Pantoprazole Sodium [Protonix -] 40 mg PO DAILY #30 tablet.ec 09/18/19 Physical Exam-Neuro Vital Signs: Vital Signs Temperature 98.2 F 11/02/19 17:20 Pulse Rate 103 H 11/02/19 17:20 Respiratory Rate 16 11/02/19 17:20 Blood Pressure 116/87 11/02/19 17:20 O2 Sat by Pulse Oximetry (%) 98 11/02/19 17:20 Labs: CBC, BMP 10/26/19 05:56 10/26/19 05:56 INR, PTT INR 1.18 (0.83-1.09) H 10/14/19 05:30 - Neuro Exam Level Of Consciousness: Yes: Alert (Follows simple commands, answers "yes/no" by nodding head. ) Cranial Nerves II-XII Intact: Yes DTR's: 0 Right Bicep, 0 Right Brachioradialis, 0 Left Achilles, 0 Right Achilles (bilat knee jerks-1+), 1+ Left Bicep, 1+ Left Tricep, 1+ Right Tricep, 1+ Left Brachioradialis Babinski: Absent Response to light touch: Normal Response to pain prick: Normal Response to temperature: Normal Response to vibration: Normal Motor Strength: 3/5: Right Arm (Right Deltoid- 2/5, biceps-3/5, Triceps-2/5, wrist ext/flex-2/5, hand billing and insurance coordinator-3/5), 5/5: Left Arm, Left Leg, Right Leg Gait: Other (not testable.) Imaging - Results Cat Scan: Report Reviewed (CT head 10/24 without acute findings.) Assessment/Plan Pt. with subacute right arm weakness ( x 6 weeks) , lower motor neuron pattern with absent brachiorad/biceps reflerxes-with weakness R BI/BR/TR --C5-C6-C7, versus patchy upper plexopathy ( latter more likely) , ? positional entrapment vs inflammatory ; not one nerve involved no central features on exam needs PT 2-3 X /week get EMG as outpt DR ALEJO
[2019-11-02] MEDS: POLYETHYLENE GLYCOL 3350 119 GM BTL NGT SCH (21:19)
[2019-11-02] MEDS: CHLORHEXIDINE GLUCONATE 4% CLEANSER FOR DECOLONIZATION TP SCH (21:19)
[2019-11-02] MEDS: ATORVASTATIN CA 40 MG TABLET (FP) NGT SCH (21:19)
[2019-11-02] MEDS ORDERED: ATORVASTATIN CA 40 MG TABLET (FP) PO SCH (22:40)
[2019-11-02] MEDS ORDERED: ALBUTEROL SO4 2.5/IPRATROPIUM 0.5 INH SOL 3 ML VIAL.NEB. NEB PRN (22:41)
[2019-11-02] MEDS ORDERED: POLYETHYLENE GLYCOL 3350 119 GM BTL PO SCH (22:41)
[2019-11-02] MEDS: dilTIAZem HCL 60 MG TABLET PO SCH (23:06)
[2019-11-03] MEDS: INSULIN SLIDING SCALE (NOVOLOG) 1 VIAL SQ SCH ×3 (06:11→16:47)
[2019-11-03] MEDS: FUROSEMIDE 40 MG TABLET (FP) PO SCH ×2 (06:12→13:39)
[2019-11-03] MEDS: METOPROLOL TARTRATE 50 MG TABLET (FP) PO SCH ×3 (06:12→21:42)
[2019-11-03] MEDS: dilTIAZem HCL 60 MG TABLET PO SCH ×3 (06:12→17:39)
[2019-11-03 06:45] LABS: EOS % 2.2 % (0-4.5); HEMATOCRIT 32.4 % (35.4-49); HEMOGLOBIN 10.3 GM/dL (11.7-16.9); LYMPH % 7.2 % (8-40); MCH 24.7 pg (25.7-33.7); MCHC 31.9 g/dl (32.0-35.9); MEAN CELL VOLUME 77.4 fl (80-96); MEAN PLT VOLUME 8.7 fl (7.5-11.1); MONO % 13.1 % (3.8-10.2); NEUT % 75.5 % (42.8-82.8); PLATELET COUNT 352 K/MM3 (134-434); RBC 4.19 M/mm3 (4.00-5.60); RDW 17.5 % (11.9-15.9); WHITE BLOOD COUNT 5.2 K/mm3 (4.0-10.0)
[2019-11-03 07:13] LABS: ALBUMIN 3.1 g/dl (3.4-5.0); BILIRUBIN,TOTAL 0.8 mg/dL (0.2-1); BLOOD UREA NITROGEN 21.5 mg/dL (7-18); CALCIUM 9.1 mg/dL (8.5-10.1); CREATININE 0.9 mg/dL (0.55-1.3); POTASSIUM 3.8 mmol/L (3.5-5.1); TOT PROT 6.6 g/dl (6.4-8.2)
--- NOTE | 2019-11-03 09:13 | DS ---
Physical Examination Vital Signs: Vital Signs Temperature 98.8 F 11/03/19 05:43 Pulse Rate 82 11/03/19 08:23 Respiratory Rate 20 11/03/19 05:43 Blood Pressure 97/65 11/03/19 05:43 O2 Sat by Pulse Oximetry (%) 97 11/03/19 08:23 Labs: CBC, BMP 11/03/19 05:35 11/03/19 05:35 Discharge Summary Problems reviewed: Yes Reason For Visit: ACUTE DECOMPENSATED HEART FAILURE Current Active Problems Acute respiratory failure with hypoxia and hypercapnia (Acute) CHF (congestive heart failure) (Acute) Dysphagia (Acute) Respiratory distress (Acute) Right arm weakness (Acute) Sepsis (Acute) Urinary retention (Acute) Condition: Critical - Instructions - Home Medications Comprehensive Discharge Medication List: Ambulatory Orders Amino Acids/Protein Hydrolys [Prosource No Carb Liquid Pkt] 30 ml PO BID@0800,1730 packet 06/06/19 Insulin Sliding Scale [Novolog Vial Sliding Scale -] 1 vial SQ ACHS units 06/06/19 Thiamine HCl [Vitamin B1 -] 200 mg PO DAILY tablet 06/06/19 Finasteride 5 mg PO DAILY 06/30/19 Albuterol 2.5/Ipratropium 0.5 [Duoneb -] 1 amp NEB RTID #120 amp 09/18/19 Apixaban [Eliquis -] 5 mg PEG BID #60 tablet 09/18/19 Atorvastatin Ca [Lipitor] 40 mg PO HS #30 tablet 09/18/19 Insulin Sliding Scale [Novolog Vial Sliding Scale -] 1 vial SQ ACHS units 09/18/19 Amino Acids/Protein Hydrolys [Prosource No Carb Liquid Pkt] 30 ml PO BID@08 00,1730 packet 11/03/19 Diltiazem [Cardizem -] 90 mg PO Q6HPO tablet 11/03/19 Furosemide [Lasix -] 40 mg PO BID@0600,1400 tablet 11/03/19 Insulin Sliding Scale [Novolog Vial Sliding Scale -] 1 vial SQ TIDAC units 11/03/19 Metoprolol Tartrate [Lopressor -] 50 mg PO TID tablet 11/03/19 Pantoprazole Sodium [Protonix -] 40 mg PO DAILY tablet.ec 11/03/19 Polyethylene Glycol 3350 [Miralax 119 gm Btl -] 17 gm PO HS@2100 bottle 11/03/19 Scopolamine Hydrobromide [Transderm-Scop -] 1 patch TD Q72H patch.td72 11/03/19
[2019-11-03] MEDS: CHLORHEXIDINE GLUCONATE 0.12% 15ML CUP MM SCH ×2 (09:16→23:13)
[2019-11-03] MEDS: FINASTERIDE 5 MG TABLET (FP) PO SCH (09:16)
[2019-11-03] MEDS: PANTOPRAZOLE 40 MG TABLET PO SCH (09:16)
[2019-11-03] MEDS: APIXABAN 5 MG TABLET PO SCH ×2 (09:17→23:13)
[2019-11-03] MEDS: AMINO ACIDS/PROTEIN HYDROLYS 30 ML LIQUID.PKT PO SCH ×2 (09:17→17:39)
--- NOTE | 2019-11-03 11:12 | PN ---
Progress Note, Physician History of Present Illness: Remains on trach collar, awake and alert no distress, persistent atrial flutter with variable ventricular response - Current Medication List Current Medications: Active Medications Albuterol/Ipratropium (Duoneb -) 1 amp NEB Q6H PRN PRN Reason: SHORTNESS OF BREATH Amino Acids (Prosource No Carb Liquid Pkt) 30 ml PO BID@0800,1730 [facility] Last Admin: 11/03/19 09:17 Dose: 30 ml Documented by: Apixaban (Eliquis -) 5 mg PO BID [facility] Last Admin: 11/03/19 09:17 Dose: 5 mg Documented by: Atorvastatin Calcium (Lipitor -) 40 mg PO [facility] Chlorhexidine Gluconate (Hibiclens For Decolonization -) 1 applic TP [facility] Last Admin: 11/02/19 21:19 Dose: 1 applic Documented by: Chlorhexidine Gluconate (Peridex -) 15 ml MM BID [facility] Last Admin: 11/03/19 09:16 Dose: 15 ml Documented by: Diltiazem HCl (Cardizem -) 90 mg PO Q6HPO [facility] Last Admin: 11/03/19 06:12 Dose: 90 mg Documented by: Finasteride (Proscar -) 5 mg PO DAILY [facility] Last Admin: 11/03/19 09:16 Dose: 5 mg Documented by: Furosemide (Lasix -) 40 mg PO BID@0600,1400 [facility] Last Admin: 11/03/19 06:12 Dose: 40 mg Documented by: Insulin Aspart (Novolog Vial Sliding Scale -) 1 vial SQ TIDAC [facility]; Protocol Last Admin: 11/03/19 11:07 Dose: 2 units Documented by: Metoprolol Tartrate (Lopressor -) 50 mg PO TID [facility] Last Admin: 11/03/19 06:12 Dose: 50 mg Documented by: Metoprolol Tartrate (Lopressor Injection -) 5 mg IVPUSH Q4H PRN PRN Reason: HYPERTENSION Last Admin: 10/21/19 10:12 Dose: 5 mg Documented by: Miscellaneous (Duragesic Patch Waste) 1 each TD PRN PRN PRN Reason: PAIN Last Admin: 10/25/19 09:55 Dose: 1 each Documented by: Pantoprazole Sodium (Protonix -) 40 mg PO DAILY [facility] Last Admin: 11/03/19 09:16 Dose: 40 mg Documented by: Polyethylene Glycol (Miralax (For Daily Use) -) 17 gm PO HS@2100 [facility] Scopolamine HBr (Transderm-Scop -) 1 patch TD Q72H [facility] Last Admin: 11/01/19 22:20 Dose: 1 patch Documented by: - Objective Vital Signs: Vital Signs Temperature 98.2 F 11/03/19 09:00 Pulse Rate 77 11/03/19 09:00 Respiratory Rate 18 11/03/19 09:00 Blood Pressure 98/68 11/03/19 09:00 O2 Sat by Pulse Oximetry (%) 97 11/03/19 10:04 Constitutional: Yes: No Distress, Calm Neck: Yes: Other (TC) Respiratory: Yes: Diminished, Rhonchi Gastrointestinal: Yes: Normal Bowel Sounds, Soft, Abdomen, Obese Edema: No Integumentary: Yes: Venous Stasis Changes Labs: CBC, BMP 11/03/19 05:35 11/03/19 05:35 INR, PTT INR 1.18 (0.83-1.09) H 10/14/19 05:30 Problem List - Problems (1) Acute respiratory failure with hypoxia and hypercapnia Code(s): J96.01 - ACUTE RESPIRATORY FAILURE WITH HYPOXIA; J96.02 - ACUTE RESPIRATORY FAILURE WITH HYPERCAPNIA (2) Acute decompensated heart failure Code(s): I50.9 - HEART FAILURE, UNSPECIFIED (3) Acute hypercapnic respiratory failure due to obstructive sleep apnea Code(s): J96.02 - ACUTE RESPIRATORY FAILURE WITH HYPERCAPNIA; G47.33 - OBSTRUCTIVE SLEEP APNEA (ADULT) (PEDIATRIC) (4) Atrial fibrillation and flutter Code(s): I48.91 - UNSPECIFIED ATRIAL FIBRILLATION; I48.92 - UNSPECIFIED ATRIAL FLUTTER (5) Sarcoidosis of other sites Code(s): D86.89 - SARCOIDOSIS OF OTHER SITES (6) Sleep apnea Code(s): G47.30 - SLEEP APNEA, UNSPECIFIED Qualifiers: Sleep apnea type: obstructive Qualified Code(s): G47.33 - Obstructive sleep apnea (adult) (pediatric) (7) Type 2 diabetes mellitus Code(s): E11.9 - TYPE 2 DIABETES MELLITUS WITHOUT COMPLICATIONS Qualifiers: Diabetes mellitus manager long term care insulin use: without manager long term care use Diabetes mellitus complication detail: with chronic kidney disease Chronic kidney disease stage: stage 2 (mild) Assessment/Plan 05/01/2019 Normal LV and RV size and fxn, tr TR 03/14/2019 Normal LV size and fxn, no thrombus ADEEL, mild-mod dilated and HK RV, tr MR, mild-mod TR, tr OH, trace pericardial effusion 1. Acute on chronic hypoxic/hypercapnic respiratory failure post tracheostomy on mechanical ventilation 2. History of pneumonia complicated by septic shock- ARDS, last admission/hospitalization 3. Persistent atrial flutter/paroxysmal atrial fibrillation [id number] score of 0 on A/C therapy with intermittent periods of rapid ventricular response 4. Diastolic/systolic LV dysfunction with chronic class 0-I NYHA classification LV failure 5. Sarcoidosis confirmed by skin biopsy, R/O cardiac involvement- for future evaluation/cardiac MRI 6. History of coronavirus/COVID 19 infection 7. DM 8. History of OSAS 9. History of acute on chronic kidney disease, pre-renal azotemia 10. Right upper extremity weakness suspect brachial plexus injury 11. Anemia PLAN: 1. Placed on TC with PMV as tolerated 2. Lasix 40 po bid with monitoring diuretic response, renal function and electrolytes 3. Rate-control with oral Cardizem 90 mg mg QID, Lopressor 50 mg TID, IV Lopressor/Cardizem as needed. Cont Eliquis 5 bid, Lipitor 40 qd 4. Hold lisinopril 10 mg QD pending hemodynamic and renal stability 5. Dysphagia diet with PMV, DVT/GI prophylaxis 6. EMG, right brachial plexus MRI as outpatient 7. D/c planning. Follow-up with Dr. Genaro Davila (cardiology at [place]) as outpatient. Consider cardiac PET or MRI to exclude cardiac involvement in sarcoidosis as outpatient
--- NOTE | 2019-11-03 13:19 | PN ---
Progress Note (short form) - Note Progress Note: Awake and alert. NAD on Trach collar. No CP or SOB. OBJECTIVE: Intake & Output 10/31/19 11/01/19 11/02/19 11/03/19 23:59 23:59 23:59 23:59 Intake Total 320 500 690 200 Output Total 700 424 6358 600 Balance -380 -300 -510 -400 Weight 241 lb 4.8 oz 237 lb 3.2 oz Last Vital Signs Temp Pulse Resp BP Pulse Ox 98.2 F 86 18 98/68 97 11/03/19 09:00 11/03/19 11:40 11/03/19 09:00 11/03/19 09:00 11/03/19 11:40 Active Medications Albuterol/Ipratropium (Duoneb -) 1 amp NEB Q6H PRN PRN Reason: SHORTNESS OF BREATH Amino Acids (Prosource No Carb Liquid Pkt) 30 ml PO BID@0800,1730 [facility] Last Admin: 11/03/19 09:17 Dose: 30 ml Documented by: Apixaban (Eliquis -) 5 mg PO BID [facility] Last Admin: 11/03/19 09:17 Dose: 5 mg Documented by: Atorvastatin Calcium (Lipitor -) 40 mg PO [facility] Chlorhexidine Gluconate (Hibiclens For Decolonization -) 1 applic TP [facility] Last Admin: 11/02/19 21:19 Dose: 1 applic Documented by: Chlorhexidine Gluconate (Peridex -) 15 ml MM BID [facility] Last Admin: 11/03/19 09:16 Dose: 15 ml Documented by: Diltiazem HCl (Cardizem -) 90 mg PO Q6HPO [facility] Last Admin: 11/03/19 11:17 Dose: 90 mg Documented by: Finasteride (Proscar -) 5 mg PO DAILY [facility] Last Admin: 11/03/19 09:16 Dose: 5 mg Documented by: Furosemide (Lasix -) 40 mg PO BID@0600,1400 [facility] Last Admin: 11/03/19 06:12 Dose: 40 mg Documented by: Insulin Aspart (Novolog Vial Sliding Scale -) 1 vial SQ TIDAC [facility]; Protocol Last Admin: 11/03/19 11:07 Dose: 2 units Documented by: Metoprolol Tartrate (Lopressor -) 50 mg PO TID [facility] Last Admin: 11/03/19 06:12 Dose: 50 mg Documented by: Metoprolol Tartrate (Lopressor Injection -) 5 mg IVPUSH Q4H PRN PRN Reason: HYPERTENSION Last Admin: 10/21/19 10:12 Dose: 5 mg Documented by: Miscellaneous (Duragesic Patch Waste) 1 each TD PRN PRN PRN Reason: PAIN Last Admin: 10/25/19 09:55 Dose: 1 each Documented by: Pantoprazole Sodium (Protonix -) 40 mg PO DAILY [facility] Last Admin: 11/03/19 09:16 Dose: 40 mg Documented by: Polyethylene Glycol (Miralax (For Daily Use) -) 17 gm PO HS@2100 [facility] Scopolamine HBr (Transderm-Scop -) 1 patch TD Q72H [facility] Last Admin: 11/01/19 22:20 Dose: 1 patch Documented by: Gen: NAD on Trach collar Heart: RRR Lung: few scattered rhonchi Abd: soft, nontender Ext: (+) edema Laboratory Results - last 24 hr 11/02/19 11/03/19 11/03/19 16:51 05:35 05:35 WBC 5.2 RBC 4.19 Hgb 10.3 L Hct 32.4 L MCV 77.4 L MCH 24.7 L MCHC 31.9 L RDW 17.5 H Plt Count 352 MPV 8.7 Absolute Neuts (auto) 4.0 Neutrophils % 75.5 Lymphocytes % 7.2 L Monocytes % 13.1 H Eosinophils % 2.2 Basophils % 2.0 Nucleated RBC % 0 Sodium 138 Potassium 3.8 Chloride 97 L Carbon Dioxide 31 Anion Gap 9 BUN 21.5 H Creatinine 0.9 Est GFR (CKD-EPI)AfAm 113.41 Est GFR (CKD-EPI)NonAf 97.85 POC Glucometer 177 Random Glucose 127 H Calcium 9.1 Total Bilirubin 0.8 AST 19 ALT 19 Alkaline Phosphatase 132 H Total Protein 6.6 Albumin 3.1 L SARS-CoV-2 Ab Interp 11/03/19 11/03/19 11/03/19 05:35 06:07 11:03 WBC RBC Hgb Hct MCV MCH MCHC RDW Plt Count MPV Absolute Neuts (auto) Neutrophils % Lymphocytes % Monocytes % Eosinophils % Basophils % Nucleated RBC % Sodium Potassium Chloride Carbon Dioxide Anion Gap BUN Creatinine Est GFR (CKD-EPI)AfAm Est GFR (CKD-EPI)NonAf POC Glucometer 121 168 Random Glucose Calcium Total Bilirubin AST ALT Alkaline Phosphatase Total Protein Albumin SARS-CoV-2 Ab Interp Non-reactive ASSESSMENT AND PLAN: Acute Hypoxic and Hypercapneic Respiratory Failure S/P Trach UTI Pneumonia ARDS Septic Shock Acute on Chronic Diastolic Heart Failure Volume Overload Atrial Fibrillation/Flutter with RVR h/o COVID19 Sarcoidosis Morbid Obesity EMMY/OHS Anemia - Trach collar / PMV as tolerated - PO as tolerated - Eliquis - rate control - monitor urine output, creatinine - enteral feeds - GI prophylaxis - DC planning Dr Maya
[2019-11-03] MEDS: CHLORHEXIDINE GLUCONATE 4% CLEANSER FOR DECOLONIZATION TP SCH (23:14)
[2019-11-04] MEDS: dilTIAZem HCL 60 MG TABLET PO SCH ×2 (00:45→06:26)
[2019-11-04] MEDS: FUROSEMIDE 40 MG TABLET (FP) PO SCH ×2 (06:26→13:53)
[2019-11-04] MEDS: METOPROLOL TARTRATE 50 MG TABLET (FP) PO SCH ×2 (06:26→13:53)
--- NOTE | 2019-11-04 08:44 | DS ---
Physical Examination Vital Signs: Vital Signs Temperature 97.9 F 11/04/19 06:35 Pulse Rate 112 H 11/04/19 06:35 Respiratory Rate 10 11/04/19 06:35 Blood Pressure 116/79 11/04/19 06:35 O2 Sat by Pulse Oximetry (%) 100 11/04/19 00:18 Findings/Remarks: 53 yo M with a hx of diastolic CHF, tracheostomy secondary to respiratory failure with reversal, afib/aflutter on eliquis, sarcoidosis, Guillain [place], morbid obesity, pulmonary edema, intubated (08/2019), cardiac arrest (08/2019) who presents with shortness of breath. Remains on trach collar, awake and alert no distress Cardiovascular: Yes: Pulse Irregular, S1, S2 Respiratory: Yes: Mechanically Ventilated Gastrointestinal: Yes: Normal Bowel Sounds, Soft Labs: CBC, BMP 11/03/19 05:35 11/03/19 05:35 Discharge Summary Problems reviewed: Yes Reason For Visit: ACUTE DECOMPENSATED HEART FAILURE Current Active Problems Acute respiratory failure with hypoxia and hypercapnia (Acute) CHF (congestive heart failure) (Acute) Dysphagia (Acute) Respiratory distress (Acute) Right arm weakness (Acute) Sepsis (Acute) Urinary retention (Acute) Hospital Course: - Problems (1) Acute respiratory failure with hypoxia and hypercapnia Assessment/Plan: -Pulmonary on board -Trach collar -Bronchodilators -COVID 19 PCR negative Problems reviewed: Yes Code(s): J96.01 - ACUTE RESPIRATORY FAILURE WITH HYPOXIA; J96.02 - ACUTE RESPIRATORY FAILURE WITH HYPERCAPNIA (2) CHF (congestive heart failure) Assessment/Plan: -Seen by Cardiology -Furosemide 40 mg po bid -Continue Lopressor Problems reviewed: Yes Code(s): I50.9 - HEART FAILURE, UNSPECIFIED Qualifiers: Heart failure type: unspecified Heart failure chronicity: acute on chronic Qualified Code(s): I50.9 - Heart failure, unspecified (3) Right arm weakness Assessment/Plan: -Seen by Neurology -CT head 10/24-negative -Physical therapy Problems reviewed: Yes Code(s): R29.898 - OTH SYMPTOMS AND SIGNS INVOLVING THE MUSCULOSKELETAL SYSTEM (4) Sepsis Assessment/Plan: -resolved -Finished IV abx -Seen by ID -Afebrile Problems reviewed: Yes Code(s): A41.9 - SEPSIS, UNSPECIFIED ORGANISM (5) Urinary retention Assessment/Plan: -Continue Proscar -Urinating well Problems reviewed: Yes Code(s): R33.9 - RETENTION OF URINE, UNSPECIFIED (6) Atrial fibrillation and flutter Assessment/Plan: -Tele monitor -Cardiology on board -Rate controlled -Continue BB + Cardizem to 360 qd cd -Continue Eliquis Problems reviewed: Yes Code(s): I48.91 - UNSPECIFIED ATRIAL FIBRILLATION; I48.92 - UNSPECIFIED ATRIAL FLUTTER (7) Morbid obesity Problems reviewed: Yes Code(s): E66.01 - MORBID (SEVERE) OBESITY DUE TO EXCESS CALORIES (8) Type 2 diabetes mellitus Assessment/Plan: -Last A1c at 8.2 in 09/26 -Diabetic low sodium diet -ISS - Problems reviewed: Yes Code(s): E11.9 - TYPE 2 DIABETES MELLITUS WITHOUT COMPLICATIONS Qualifiers: Diabetes mellitus moth exterminator insulin use: without moth exterminator use Diabetes mellitus complication detail: with chronic kidney disease Chronic kidney disease stage: stage 2 (mild) Assessment/Plan Awaiting acceptance at [facility] Repeat COVID 19 in preparation of d/c Condition: Critical - Instructions - Home Medications Comprehensive Discharge Medication List: Ambulatory Orders Amino Acids/Protein Hydrolys [Prosource No Carb Liquid Pkt] 30 ml PO BID@0800,1730 packet 06/06/19 Insulin Sliding Scale [Novolog Vial Sliding Scale -] 1 vial SQ ACHS units 06/06/19 Thiamine HCl [Vitamin B1 -] 200 mg PO DAILY tablet 06/06/19 Finasteride 5 mg PO DAILY 06/30/19 Albuterol 2.5/Ipratropium 0.5 [Duoneb -] 1 amp [facility] RTID #120 amp 09/18/19 Apixaban [Eliquis -] 5 mg PEG BID #60 tablet 09/18/19 Atorvastatin Ca [Lipitor] 40 mg PO HS #30 tablet 09/18/19 Insulin Sliding Scale [Novolog Vial Sliding Scale -] 1 vial SQ ACHS units 09/18/19 Amino Acids/Protein Hydrolys [Prosource No Carb Liquid Pkt] 30 ml PO BID@0800,1730 packet 11/03/19 Diltiazem [Cardizem -] 90 mg PO Q6HPO tablet 11/03/19 Furosemide [Lasix -] 40 mg PO BID@0600,1400 tablet 07/27/20 Insulin Sliding Scale [Novolog Vial Sliding Scale -] 1 vial SQ TIDAC units 11/03/19 Metoprolol Tartrate [Lopressor -] 50 mg PO TID tablet 11/03/19 Pantoprazole Sodium [Protonix -] 40 mg PO DAILY tablet.ec 11/03/19 Polyethylene Glycol 3350 [Miralax 119 gm Btl -] 17 gm PO HS@2100 bottle 11/03/19 Scopolamine Hydrobromide [Transderm-Scop -] 1 patch TD Q72H patch.td72 11/03/19
[2019-11-04] MEDS: CHLORHEXIDINE GLUCONATE 0.12% 15ML CUP MM SCH (10:02)
[2019-11-04] MEDS: APIXABAN 5 MG TABLET PO SCH (10:05)
[2019-11-04] MEDS: FINASTERIDE 5 MG TABLET (FP) PO SCH (10:05)
[2019-11-04] MEDS: AMINO ACIDS/PROTEIN HYDROLYS 30 ML LIQUID.PKT PO SCH (10:05)
[2019-11-04] MEDS: PANTOPRAZOLE 40 MG TABLET PO SCH (10:05)
[2019-11-04] MEDS: INSULIN SLIDING SCALE (NOVOLOG) 1 VIAL SQ SCH ×2 (11:05→11:11)
[2019-11-04 11:25] VITALS: BMI 39.4
--- NOTE | 2019-11-04 12:43 | PN ---
Progress Note, Physician Chief Complaint: Events noted Atrial flutter Tache collar Tolerating therapy History of Present Illness: Patient was seen and examined in ICU. Chart was reviewed Awake and alert - Current Medication List Current Medications: Active Medications Albuterol/Ipratropium (Duoneb -) 1 amp NEB Q6H PRN PRN Reason: SHORTNESS OF BREATH Amino Acids (Prosource No Carb Liquid Pkt) 30 ml PO BID@0800,1730 [facility] Last Admin: 11/04/19 10:05 Dose: 30 ml Documented by: Apixaban (Eliquis -) 5 mg PO BID [facility] Last Admin: 11/04/19 10:05 Dose: 5 mg Documented by: Atorvastatin Calcium (Lipitor -) 40 mg PO [facility] Last Admin: 11/03/19 23:14 Dose: 40 mg Documented by: Chlorhexidine Gluconate (Hibiclens For Decolonization -) 1 applic TP [facility] Last Admin: 11/03/19 23:14 Dose: 1 applic Documented by: Chlorhexidine Gluconate (Peridex -) 15 ml MM BID [facility] Last Admin: 11/04/19 10:02 Dose: 15 ml Documented by: Diltiazem HCl (Cardizem Cd -) 360 mg PO DAILY [facility] Last Admin: 11/04/19 10:02 Dose: 360 mg Documented by: Finasteride (Proscar -) 5 mg PO DAILY [facility] Last Admin: 11/04/19 10:05 Dose: 5 mg Documented by: Furosemide (Lasix -) 40 mg PO BID@0600,1400 [facility] Last Admin: 11/04/19 06:26 Dose: 40 mg Documented by: Insulin Aspart (Novolog Vial Sliding Scale -) 1 vial SQ TIDAC [facility]; Protocol Last Admin: 11/04/19 11:11 Dose: 2 units Documented by: Metoprolol Tartrate (Lopressor -) 50 mg PO TID [facility] Last Admin: 11/04/19 06:26 Dose: 50 mg Documented by: Metoprolol Tartrate (Lopressor Injection -) 5 mg IVPUSH Q4H PRN PRN Reason: HYPERTENSION Last Admin: 10/21/19 10:12 Dose: 5 mg Documented by: Miscellaneous (Duragesic Patch Waste) 1 each TD PRN PRN PRN Reason: PAIN Last Admin: 10/25/19 09:55 Dose: 1 each Documented by: Pantoprazole Sodium (Protonix -) 40 mg PO DAILY [facility] Last Admin: 11/04/19 10:05 Dose: 40 mg Documented by: Polyethylene Glycol (Miralax (For Daily Use) -) 17 gm PO HS@2100 [facility] Last Admin: 11/03/19 23:14 Dose: 17 gm Documented by: Scopolamine HBr (Transderm-Scop -) 1 patch TD Q72H [facility] Last Admin: 11/01/19 22:20 Dose: 1 patch Documented by: - Objective Vital Signs: Vital Signs Temperature 97.9 F 11/04/19 06:35 Pulse Rate 112 H 11/04/19 06:35 Respiratory Rate 14 11/04/19 08:10 Blood Pressure 116/79 11/04/19 06:35 O2 Sat by Pulse Oximetry (%) 100 11/04/19 08:10 Cardiovascular: Yes: Tachycardia, Pulse Irregular Respiratory: Yes: Diminished Gastrointestinal: Yes: Normal Bowel Sounds, Soft. No: Tenderness Edema: No Labs: CBC, BMP 11/03/19 05:35 11/03/19 05:35 Problem List - Problems (1) Acute respiratory failure with hypoxia and hypercapnia Code(s): J96.01 - ACUTE RESPIRATORY FAILURE WITH HYPOXIA; J96.02 - ACUTE RESPIRATORY FAILURE WITH HYPERCAPNIA (2) CHF (congestive heart failure) Code(s): I50.9 - HEART FAILURE, UNSPECIFIED Qualifiers: Heart failure type: unspecified Heart failure chronicity: acute on chronic Qualified Code(s): I50.9 - Heart failure, unspecified (3) Respiratory distress Code(s): R06.03 - ACUTE RESPIRATORY DISTRESS (4) Acute on chronic renal failure Code(s): N17.9 - ACUTE KIDNEY FAILURE, UNSPECIFIED; N18.9 - CHRONIC KIDNEY DISEASE, UNSPECIFIED (5) Atrial fibrillation and flutter Code(s): I48.91 - UNSPECIFIED ATRIAL FIBRILLATION; I48.92 - UNSPECIFIED ATRIAL FLUTTER (6) Septic shock Code(s): A41.9 - SEPSIS, UNSPECIFIED ORGANISM; R65.21 - SEVERE SEPSIS WITH SEPTIC SHOCK (7) Sleep apnea Code(s): G47.30 - SLEEP APNEA, UNSPECIFIED Qualifiers: Sleep apnea type: obstructive Qualified Code(s): G47.33 - Obstructive sleep apnea (adult) (pediatric) (8) Type 2 diabetes mellitus Code(s): E11.9 - TYPE 2 DIABETES MELLITUS WITHOUT COMPLICATIONS Qualifiers: Diabetes mellitus jail insulin use: without terminal make up operator use Diabetes mellitus complication detail: with chronic kidney disease Chronic kidney disease stage: stage 2 (mild) Assessment/Plan 1. Acute on chronic hypoxic/hypercapnic respiratory failure post tracheostomy currently on TC 2. History of pneumonia complicated by septic shock - ARDS 3. Persistent atrial flutter/paroxysmal atrial fibrillation with intermittent periods of rapid ventricular response 4. Diastolic/systolic LV dysfunction with chronic class 0-I NYHA classification LV failure 5. Sarcoidosis confirmed by skin biopsy, R/O cardiac involvement - for future evaluation/cardiac MRI 6. History of coronavirus/COVID 19 infection 7. DM 8. History of OSAS 9. History of acute on chronic kidney disease, pre-renal azotemia 10. Right upper extremity weakness suspect brachial plexus injury 11. Anemia PLAN: 1. Currently ICU management 2. Lasix 40 PO BID with monitoring of renal function and electrolytes 3. Rate-control with oral Cardizem 90 mg QID, Lopressor 50 mg TID, IV Lopressor/Cardizem as needed. Cont Eliquis 5 mg BID and Lipitor 40 mg QHS 4. Hold Lisinopril 10 mg QD pending hemodynamic and renal stability 5. DVT/GI prophylaxis 6. EMG, right brachial plexus MRI when able 7. Follow up with Dr. Genaro Davila (cardiology at [place]) as outpatient. Consider cardiac PET or MRI to exclude cardiac involvement in sarcoidosis as outpatient Shin Cutler MD
--- NOTE | 2019-11-04 13:15 | PN ---
Progress Note (short form) - Note Progress Note: Awake and alert. NAD on Trach collar. No CP or SOB. OBJECTIVE: Intake & Output 11/01/19 11/02/19 11/03/19 11/04/19 23:59 23:59 23:59 23:59 Intake Total 500 690 200 Output Total 800 1200 1500 Balance -300 -510 -1300 Weight 241 lb 4.8 oz 237 lb 3.2 oz Last Vital Signs Temp Pulse Resp BP Pulse Ox 97.8 F 100 H 20 116/78 100 11/04/19 11:00 11/04/19 11:00 11/04/19 11:00 11/04/19 11:00 11/04/19 12:51 Active Medications Albuterol/Ipratropium (Duoneb -) 1 amp NEB Q6H PRN PRN Reason: SHORTNESS OF BREATH Amino Acids (Prosource No Carb Liquid Pkt) 30 ml PO BID@0800,1730 [facility] Last Admin: 11/04/19 10:05 Dose: 30 ml Documented by: Apixaban (Eliquis -) 5 mg PO BID [facility] Last Admin: 11/04/19 10:05 Dose: 5 mg Documented by: Atorvastatin Calcium (Lipitor -) 40 mg PO [facility] Last Admin: 11/03/19 23:14 Dose: 40 mg Documented by: Chlorhexidine Gluconate (Hibiclens For Decolonization -) 1 applic TP [facility] Last Admin: 11/03/19 23:14 Dose: 1 applic Documented by: Chlorhexidine Gluconate (Peridex -) 15 ml MM BID [facility] Last Admin: 11/04/19 10:02 Dose: 15 ml Documented by: Diltiazem HCl (Cardizem Cd -) 360 mg PO DAILY [facility] Last Admin: 11/04/19 10:02 Dose: 360 mg Documented by: Finasteride (Proscar -) 5 mg PO DAILY [facility] Last Admin: 11/04/19 10:05 Dose: 5 mg Documented by: Furosemide (Lasix -) 40 mg PO BID@0600,1400 [facility] Last Admin: 11/04/19 06:26 Dose: 40 mg Documented by: Insulin Aspart (Novolog Vial Sliding Scale -) 1 vial SQ TIDAC [facility]; Protocol Last Admin: 11/04/19 11:11 Dose: 2 units Documented by: Metoprolol Tartrate (Lopressor -) 50 mg PO TID [facility] Last Admin: 11/04/19 06:26 Dose: 50 mg Documented by: Metoprolol Tartrate (Lopressor Injection -) 5 mg IVPUSH Q4H PRN PRN Reason: HYPERTENSION Last Admin: 10/21/19 10:12 Dose: 5 mg Documented by: Miscellaneous (Duragesic Patch Waste) 1 each TD PRN PRN PRN Reason: PAIN Last Admin: 10/25/19 09:55 Dose: 1 each Documented by: Pantoprazole Sodium (Protonix -) 40 mg PO DAILY [facility] Last Admin: 11/04/19 10:05 Dose: 40 mg Documented by: Polyethylene Glycol (Miralax (For Daily Use) -) 17 gm PO HS@2100 [facility] Last Admin: 11/03/19 23:14 Dose: 17 gm Documented by: Scopolamine HBr (Transderm-Scop -) 1 patch TD Q72H [facility] Last Admin: 11/01/19 22:20 Dose: 1 patch Documented by: Gen: NAD on Trach collar Heart: RRR Lung: few scattered rhonchi Abd: soft, nontender Ext: (+) edema Laboratory Results - last 24 hr 11/03/19 11/03/19 11/04/19 02:30 16:42 11:03 POC Glucometer 148 154 COVID-19 (JAKUB) Not detected ASSESSMENT AND PLAN: Acute Hypoxic and Hypercapneic Respiratory Failure S/P Trach UTI Pneumonia ARDS Septic Shock Acute on Chronic Diastolic Heart Failure Volume Overload Atrial Fibrillation/Flutter with RVR h/o COVID19 Sarcoidosis Morbid Obesity EMMY/OHS Anemia - Trach collar / PMV as tolerated - PO as tolerated - Eliquis - rate control - monitor urine output, creatinine - enteral feeds - GI prophylaxis - DC planning Dr Maya
[2019-11-04 13:59] VITALS: TEMP 98
[2019-11-04 14:24] VITALS: BP 107/67; PULSE 120
== END 2019-11-04 14:40 | DRG 4 ==
LOC: JER 04:49 → JERBED 05:02 → JICU 10:25
PROVIDERS: ADMIT Internal Medicine Pulmonary Disease; ATTEND Family Medicine
PROC: 0BH17EZ Insertion of Endotracheal Airway into Trachea, Via Natural or Artificial Opening (ICD-10-PCS; principal; 2019-09-27)
PROC: 5A1955Z Respiratory Ventilation, Greater than 96 Consecutive Hours (ICD-10-PCS; 2019-09-27)
PROC: 05HM33Z Insertion of Infusion Device into Right Internal Jugular Vein, Percutaneous Approach (ICD-10-PCS; 2019-09-27)
PROC: B543ZZA Ultrasonography of Right Jugular Veins, Guidance (ICD-10-PCS; 2019-09-27)
PROC: 0DH67UZ Insertion of Feeding Device into Stomach, Via Natural or Artificial Opening (ICD-10-PCS; 2019-09-29)
PROC: 3E0G76Z Introduction of Nutritional Substance into Upper GI, Via Natural or Artificial Opening (ICD-10-PCS; 2019-09-29)
PROC: 4A133B1 Monitoring of Arterial Pressure, Peripheral, Percutaneous Approach (ICD-10-PCS; 2019-10-05)
PROC: 4A133J1 Monitoring of Arterial Pulse, Peripheral, Percutaneous Approach (ICD-10-PCS; 2019-10-05)
PROC: 05HN33Z Insertion of Infusion Device into Left Internal Jugular Vein, Percutaneous Approach (ICD-10-PCS; 2019-10-06)
PROC: B544ZZA Ultrasonography of Left Jugular Veins, Guidance (ICD-10-PCS; 2019-10-06)
PROC: 0B113F4 Bypass Trachea to Cutaneous with Tracheostomy Device, Percutaneous Approach (ICD-10-PCS; 2019-10-14)
PROC: 0BJ08ZZ Inspection of Tracheobronchial Tree, Via Natural or Artificial Opening Endoscopic (ICD-10-PCS; 2019-10-14)
DX: A41.51 Sepsis due to Escherichia coli [E. coli] (principal); J96.01 Acute respiratory failure with hypoxia; J96.02 Acute respiratory failure with hypercapnia; I48.92 Unspecified atrial flutter; Z68.42 Body mass index [BMI] 45.0-49.9, adult; E66.01 Morbid (severe) obesity due to excess calories; D86.9 Sarcoidosis, unspecified; N39.0 Urinary tract infection, site not specified; I13.0 Hypertensive heart and chronic kidney disease with heart failure and stage 1 through stage 4 chronic kidney disease, or unspecified chronic kidney disease; I50.33 Acute on chronic diastolic (congestive) heart failure; N18.2 Chronic kidney disease, stage 2 (mild); E11.22 Type 2 diabetes mellitus with diabetic chronic kidney disease; R65.21 Severe sepsis with septic shock; E87.2 Acidosis; G61.0 Guillain-Barre syndrome; I48.91 Unspecified atrial fibrillation; G47.33 Obstructive sleep apnea (adult) (pediatric); R00.0 Tachycardia, unspecified; R68.0 Hypothermia, not associated with low environmental temperature; D64.9 Anemia, unspecified; E87.5 Hyperkalemia; N17.9 Acute kidney failure, unspecified; E83.42 Hypomagnesemia; I27.20 Pulmonary hypertension, unspecified; J18.9 Pneumonia, unspecified organism; R29.898 Other symptoms and signs involving the musculoskeletal system; R26.9 Unspecified abnormalities of gait and mobility; R33.9 Retention of urine, unspecified; R13.10 Dysphagia, unspecified
CPT/HCPCS: 36415; 36600; 70450-TC; 71045-TC-FY; 74230-TC-FY; 76604; 80048; 80053; 81003; 82375; 82728; 82803; 82962; 83050; 83605; 83615; 83735; 83880; 84100; 84484; 85025; 85027; 85610; 85730; 86140; 86769; 86850; 86900; 86901; 87040; 87070; 87086; 87186; 87205; 87899; 92611-GN; 93005; 93010; 93308; 94002; 94640; 97161-GP; 99285-25; G0480; J0131; J7030; U0003